=== PATIENT | female | born 1950 | race Caucasian/White ===

== ENCOUNTER 2016-09-25 20:57 | Observation (INO) | payer MEDICAID, MEDICARE, OTHER ==
[~2016-09-25] VITALS: Ht 162.6 cm; Wt 79.0 kg
[~2016-09-25 20:57] MED LIST: ACET-461 PO; ASP81CT PO; ASPI-875 PO; CA C1TAB26 PO; CALC-687 PO; CARV12.5 PO; CARV25TA PO; CARV6.252 PO; CEFP500T4 PO; CEFU500T5 PO; CEPH500C PO; CYCL10TA9 PO; DIGO125T PO; DIPH25TA82 PO; DOXY25TA43 PO; ENAL10TA PO; ENAL20TA PO; FLT05NA16 NS; FURO40TA4 PO; GLYB5TAB6 PO; INSU100I13 SQ; INSU100I14 SQ; ISM30TCR PO; LEVE1U SQ; LISI-556 PO; LORA10TA7 PO; MAGN400C PO; MEGA RED OMEGA PO; METF-380 PO; METO25TA PO; MTP25TSR PO; MULT-305 PO; MULT-974 PO; Mega Red PO; NAPR-243 PO; NITR0.3T6 SL; OMEG1CAP51 PO; ONDN4T PO; PRAV40TA PO; RANI75TA30 PO; SIMV40TA2 PO; SIMV40TA4 PO; TRAM-21 PO; TRH2T PO; TRIA16.5 NS; ZIPR60CA6; ZIPR60CA6 PO; ZLP10T PO; ZPR20C PO; ZPR40C PO; ZPR80C PO; [UNRECOGNIZED DRUG - OTHER] PO
--- NOTE | 2016-09-25 21:38 | ED Psychosocial ---
General Stated Complaint: MENTAL EVAL Source: patient, family Exam Limitations: no limitations History of Present Illness Time seen by provider: 21:35 Initial Comments Coming by her with requests for a "mental evaluation". Patient reportedly has good days and bad days and today would be a bad day. Patient has schizophrenia and was formerly on Geodon for many many years until stopping it by herself last year. She is psychiatrist Dr. Colon but currently does not have one. She initially presented to the emergency room pounding on the window stating that she had been to 2 other hospitals already today and they were trying to kill her and if we did not help her it would be our fault and that she started out of the waiting room. She went back to her husbands truck and he summoned the police were able to calm her down at least to the point that she could be encouraged to be evaluated in the emergency room. Upon presentation back here he reports to me that her only claims to be her but is not actually and he is trying to kill her. Timing/Duration: getting worse Associated Symptoms: anxiety, impaired concentration Allergies and Home Medications Allergies Coded Allergies: Bleach (Sodium Hypochlorite) (Verified Allergy, Unknown, 09/25/16) corn (Unverified Allergy, Unknown, 02/07/10) perfume (Verified Allergy, Unknown, 09/25/16) Home Medications Acetaminophen 500 Mg Tablet, 1,000 MG PO DAILY PRN for PAIN, (Reported) TAKES 2 OF 500MG TABLETS EVERY MORNING NEEDED FOR PAIN Aspirin 81 Mg Tablet.dr, 81 MG PO HS, (Reported) Ca Cmb No.1/Vit D3/B-6/Fa/B12 1 Each Tablet, 1,000 MG PO DAILY, (Reported) Calcium Carbonate/Mag Oxide/Zn 1 Each Tablet, 1 TAB PO DAILY, (Reported) Carvedilol 12.5 Mg Tablet, 12.5 MG PO BID, (Reported) Digoxin 125 Mcg Tablet, 125 MG PO DAILY, (Reported) Diphenhydramine Hcl 25 Mg Tablet, 25 MG PO HS PRN, (Reported) PRN ALLERGIES Enalapril Maleate 20 Mg Tablet, 20 MG PO HS, (Reported) Fluticasone Propionate 16 Gm [place], 1 SPRAY NS BID, (Reported) 1 SPRAY IN EACH NOSTRIL TWICE A DAY Insulin Aspart 100 Unit/1 Ml Insuln.pen, 15 UNIT SQ TID, (Reported) WITH MEALS Insulin Determir 100 U/Ml Insuln.pen, 25 UNITS SQ BID, (Reported) Magnesium Oxide 400 Mg Capsule, 400 MG PO DAILY, (Reported) Metformin Hcl 1,000 Mg Tablet, 1,000 MG PO BID WITH MEALS, (Reported) Multivitamin 1 Each Tablet, 1 TAB PO DAILY, (Reported) [place]-3 Fatty Acids/Fish Oil 1 Each Capsule, 1,000 MG PO TID, (Reported) Constitutional: see HPI EENTM: see HPI Respiratory: no symptoms reported Cardiovascular: no symptoms reported Genitourinary: no symptoms reported Musculoskeletal: no symptoms reported Skin: no symptoms reported Psychiatric/Neurological: See HPI Past Vfbkjuw-Ujumfk-Vcyiqo Hx Patient Social History Recent Foreign Travel: No Contact w/Someone Who Travel: No Immunizations Up To Date Tetanus Booster (TDap): More than 5yrs Date of Pneumonia Vaccine: Apr 09, 2010 Seasonal Allergies Seasonal Allergies: Yes Surgeries HX Surgeries: Yes (right carotid endarterectomy, colonoscopy) Surgeries: CABG, Hysterectomy, Pacemaker Respiratory Hx Respiratory Disorders: No Cardiovascular Hx Cardiac Disorders: Yes (has pacemaker/defibrillator, DOUBLE BYPASS) Cardiac Disorders: Coronary Artery Disease, Irregular Heartbeat Neurological Hx Neurological Disorders: Yes Neurological Disorders: Stroke Reproductive System Hx Reproductive Disorders: No FERRULER History: Hysterectomy Genitourinary Hx Genitourinary Disorders: No Gastrointestinal Hx Gastrointestinal Disorders: Yes Gastrointestinal Disorders: Gall Bladder Disease Musculoskeletal Hx Musculoskeletal Disorders: Yes Musculoskeletal Disorders: Arthritis Endocrine Hx Endocrine Disorders: No (states used to take insulin but not anymore) Endocrine Disorders: Diabetes, Insulin dep HEENT HX ENT Disorders: No Cancer Hx Cancer: No Psychosocial Hx Psychiatric Problems: Yes Behavioral Health Disorders: Schizophrenia, Depression Integumentary HX Skin/Integumentary Disorder: No Blood Transfusions Hx Blood Disorders: No Adverse Reaction to a Blood Tr: No Family Medical History Significant Family History: No Pertinent Family Hx Family Medial History: Family history: Diabetes mellitus 19 MOTHER Family history: Hypertension 19 FATHER 19 MOTHER Psychotic disorder G8 BROTHER (MENTAL HEALTH PROBLEMS) Physical Exam Vital Signs Vital Sign - Last 12Hours 09/25/16 21:20 Temp 96.4 Pulse 70 Resp 18 B/P (MAP) 177/81 Pulse Ox 97 Capillary Refill : General Appearance: WD/WN, no apparent distress, other (bizarre behavior in the emergency room, screaming at the customer service receptionist stating that she been to other hospitals recurrent killer and if we didn't save her would be our fault. She then stormed out of the waiting room. Her called the police who convinced her to be checked out. She is very angry with her for bringing her here and states that he is not her and he is in fact trying to kill her.) HEENT: PERRL/EOMI, normal ENT inspection Neck: non-tender, full range of motion Respiratory: no respiratory distress, no accessory muscle use Cardiovascular: no murmur Gastrointestinal: non tender, soft Extremities: normal range of motion, non-tender Neurologic/Psychiatric: alert, normal mood/affect, oriented x 3 Appearance/Memory: disheveled, impaired insight, impaired recent memory, impaired remote memory Behavior/Eye Contact: increased rate of speech, belligerent, compulsive, uncooperative Thoughts/Hallucinations: delusions, flight of ideas, paranoid Skin: normal color, warm/dry Progress/Results/Core Measures Results/Orders Lab Results Laboratory Tests Test 09/25/16 21:50 Range/Units White Blood Count 8.3 4.3-11.0 10^3/uL Red Blood Count 4.29 L 4.35-5.85 10^6/uL Hemoglobin 12.4 11.5-16.0 G/DL Hematocrit 37 35-52 % Mean Corpuscular Volume 86 80-99 FL Mean Corpuscular Hemoglobin 29 25-34 PG Mean Corpuscular Hemoglobin Concent 34 32-36 G/DL Red Cell Distribution Width 13.3 10.0-14.5 % Platelet Count 179 130-400 10^3/uL Mean Platelet Volume 9.6 7.4-10.4 FL Neutrophils (%) (Auto) 71 42-75 % Lymphocytes (%) (Auto) 19 12-44 % Monocytes (%) (Auto) 8 0-12 % Eosinophils (%) (Auto) 2 0-10 % Basophils (%) (Auto) 1 0-10 % Neutrophils # (Auto) 5.9 1.8-7.8 X 10^3 Lymphocytes # (Auto) 1.6 1.0-4.0 X 10^3 Monocytes # (Auto) 0.6 0.0-1.0 X 10^3 Eosinophils # (Auto) 0.2 0.0-0.3 10^3/uL Basophils # (Auto) 0.1 0.0-0.1 10^3/uL Urine Color YELLOW Urine Clarity CLEAR Urine pH 5 5-9 Urine Specific Wallace 1.015 L 1.016-1.022 Urine Protein 1+ H NEGATIVE Urine Glucose (UA) 1+ H NEGATIVE Urine Ketones NEGATIVE NEGATIVE Urine Nitrite NEGATIVE NEGATIVE Urine Bilirubin NEGATIVE NEGATIVE Urine Urobilinogen NORMAL NORMAL MG/DL Urine Leukocyte Esterase 3+ H NEGATIVE Urine RBC (Auto) NEGATIVE NEGATIVE Urine RBC NONE /HPF Urine WBC 50-100 H /HPF Urine Squamous Epithelial Cells 2-5 /HPF Urine Crystals NONE /LPF Urine Bacteria FEW H /HPF Urine Casts NONE /LPF Urine Mucus NEGATIVE /LPF Urine Culture Indicated YES Sodium Level 135 135-145 MMOL/L Potassium Level 4.6 3.6-5.0 MMOL/L Chloride Level 106 98-107 MMOL/L Carbon Dioxide Level 16 L 21-32 MMOL/L Anion Gap 13 5-14 MMOL/L Blood Urea Nitrogen 29 H 7-18 MG/DL Creatinine 1.23 0.60-1.30 MG/DL Estimat Glomerular Filtration Rate 44 BUN/Creatinine Ratio 24 Glucose Level 247 H 70-105 MG/DL Calcium Level 8.5 8.5-10.1 MG/DL Total Bilirubin 0.5 0.1-1.0 MG/DL Aspartate Amino Transf (AST/SGOT) 17 5-34 U/L Alanine Aminotransferase (ALT/SGPT) 25 0-55 U/L Alkaline Phosphatase 117 40-136 U/L Total Protein 7.3 6.4-8.2 GM/DL Albumin 3.9 3.2-4.5 GM/DL Urine Opiates Screen NEGATIVE NEGATIVE Urine Oxycodone Screen NEGATIVE NEGATIVE Urine Methadone Screen NEGATIVE NEGATIVE Urine Propoxyphene Screen NEGATIVE NEGATIVE Urine Barbiturates Screen NEGATIVE NEGATIVE Ur Tricyclic Antidepressants Screen NEGATIVE NEGATIVE Urine Phencyclidine Screen NEGATIVE NEGATIVE Urine Amphetamines Screen NEGATIVE NEGATIVE Urine Methamphetamines Screen NEGATIVE NEGATIVE Urine Benzodiazepines Screen NEGATIVE NEGATIVE Urine Cocaine Screen NEGATIVE NEGATIVE Urine Cannabinoids Screen NEGATIVE NEGATIVE My Orders Orders - FREDRICK TAYLOR APRN Cbc With Automated Diff (09/25/16 21:33) Comprehensive Metabolic Panel (09/25/16 21:33) Thyroid Stimulating Hormone (09/25/16 21:33) Ekg Tracing (09/25/16 21:33) Ua Culture If Indicated (09/25/16 21:33) Drug Screen Stat (Urine) (09/25/16 21:33) Ziprasidone Capsule (Geodon Capsule) (09/25/16 21:45) Chest 1 View, Ap/Pa Only (09/25/16 21:33) Ct Head Wo (09/25/16 21:33) Urine Culture (09/25/16 21:50) Vital Signs/I&O Vital Sign - Last 12Hours 09/25/16 21:20 Temp 96.4 Pulse 70 Resp 18 B/P (MAP) 177/81 Pulse Ox 97 Departure Communication Progress Notes 2211- patient's does not have particularly over her. However, she is agreeable to being admitted at [facility] behavioral health unit. Impression Impression: Primary Impression: Schizophrenia Additional Impression: Urinary tract infection Disposition: SHT-TRM HOSP Condition: Stable Departure-Patient Inst. Referrals: [facility] (PCP) Primary Care Physician WOOD CALDERON (Family) Primary Care Physician FREDRICK TAYLOR APRN Sep 25, 2016 21:38
[2016-09-25] MEDS ORDERED: ZIPRASIDONE 20 MG (GEODON) CAP PO ONE (21:45)
[2016-09-25 21:55] LABS: BASOPHILS # (AUTO) 0.1 10^3/uL (0.0-0.1); BASOPHILS % (AUTO) 1 % (0-10); EOSINOPHILS # (AUTO) 0.2 10^3/uL (0.0-0.3); EOSINOPHILS % (AUTO) 2 % (0-10); LYMPHOCYTES # (AUTO) 1.6 X 10^3 (1.0-4.0); LYMPHOCYTES % (AUTO) 19 % (12-44); MEAN CORPUSCULAR HEMOGLOBIN 29 PG (25-34); MEAN CORPUSCULAR HGB CONC 34 G/DL (32-36); MEAN CORPUSCULAR VOLUME 86 FL (80-99); MEAN PLATELET VOLUME 9.6 FL (7.4-10.4); MONOCYTES # (AUTO) 0.6 X 10^3 (0.0-1.0); MONOCYTES % (AUTO) 8 % (0-12); NEUTROPHILS # (AUTO) 5.9 X 10^3 (1.8-7.8); NEUTROPHILS % (AUTO) 71 % (42-75); PLATELET COUNT 179 10^3/uL (130-400); RED BLOOD COUNT 4.29 10^6/uL (4.35-5.85); RED CELL DISTRIBUTION WIDTH 13.3 % (10.0-14.5); WHITE BLOOD COUNT 8.3 10^3/uL (4.3-11.0)
[2016-09-25 21:58] LABS: BILIRUBIN,URINE NEGATIVE (NEGATIVE); KETONES,URINE NEGATIVE (NEGATIVE); LEUKOCYTE ESTERASE ,URINE 3+ (NEGATIVE); NITRITE,URINE NEGATIVE (NEGATIVE); PH,URINE 5 (5-9); PROTEIN,URINE 1+ (NEGATIVE); UROBILINOGEN,URINE NORMAL (NORMAL)
[2016-09-25 22:11] LABS: ALBUMIN 3.9 GM/DL (3.2-4.5); BILIRUBIN,TOTAL 0.5 MG/DL (0.1-1.0); CALCIUM 8.5 MG/DL (8.5-10.1); CREATININE SERUM 1.23 MG/DL (0.60-1.30); POTASSIUM 4.6 MMOL/L (3.6-5.0); TOTAL PROTEIN 7.3 GM/DL (6.4-8.2); WBC,URINE 50-100 /HPF
[2016-09-25] MEDS ORDERED: TRIM/SULFAMETH 160/800 (SEPTRA DS) TAB PO ONE (22:15)
[2016-09-25 22:31] LABS: THYROID STIMULATING HORMONE 1.83 UIU/ML (0.35-4.94)
[2016-09-26 01:53] VITALS: BP 178/81
[2016-09-26] MEDS ORDERED: ZIPRASIDONE 20 MG (GEODON) CAP PO PRN (04:00)
[2016-09-26] MEDS ORDERED: ZIPRASIDONE 20 MG INJ (GEODON) VIAL IM PRN (04:00)
[2016-09-26 05:40] VITALS: BP 174/69
--- NOTE | 2016-09-26 05:56 | Diagnostic Imaging Report ---
INDICATION: Altered mental status TECHNIQUE: Routine non contrast-enhanced axial images were obtained from the skull base to the vertex. COMPARISON: 09/05/2013 FINDINGS: The ventricles and cortical sulci are diffusely prominent, compatible with age-related volume loss. There are confluent areas of abnormal, low attenuation in the periventricular white matter. This is consistent with chronic small vessel ischemic changes. Old small lacunar infarct in the anterior right basal ganglia is again noted. . There is no midline shift or mass-effect. No acute intra-axial hemorrhage is seen. There are no abnormal areas of increased or decreased density to suggest acute hemorrhage or edema. No extra-axial masses or collections are present. The bony calvarium is intact. The visualized paranasal sinuses are unremarkable. The mastoid air cells are clear. IMPRESSION: 1. No acute intracranial abnormality. No CT evidence of mass, acute infarct or intracranial hemorrhage. 2. Chronic small vessel ischemic changes within the deep white matter and small old lacunar infarct of the anterior right basal ganglia. Dictated by: Dictated on workstation # [id number]
--- NOTE | 2016-09-26 07:24 | Diagnostic Imaging Report ---
Portable upright radiograph of the chest. INDICATION: Altered mental status. FINDINGS: There is a pacemaker with two cardiac leads seen. The pacemaker obscures parts of the left perihilar region. Otherwise the lungs appear clear. The heart size is normal. No effusion or pneumothorax. The mediastinum and josé luis appear unremarkable. Post CABG changes are seen. IMPRESSION: No acute process. Dictated by: Dictated on workstation # [id number]
[2016-09-26 08:00] VITALS: BP 180/90
[2016-09-26] MEDS ORDERED: CEFDINIR 300 MG (OMNICEF) CAP PO SCH (09:00)
[2016-09-26] MEDS ORDERED: CARV12.53 PO (09:29)
[2016-09-26] MEDS ORDERED: METF500T4 PO (09:29)
[2016-09-26] MEDS ORDERED: ZIPR80CA23 PO (09:29)
[2016-09-26] MEDS ORDERED: ENAL20TA PO (09:29)
[2016-09-26] MEDS ORDERED: DIGO125T PO (09:29)
--- NOTE | 2016-09-26 10:46 | Short Stay Summary ---
HPI Attending Physician Cindy Ortega MD PCP mehnaz,[facility] Date of Admission Sep 25, 2016 at 23:10 Home Medications Home Medications Reviewed patient Home Medication Reconciliation Form Allergies Coded Allergies: Bleach (Sodium Hypochlorite) (Verified Allergy, Unknown, 09/25/16) corn (Unverified Allergy, Unknown, 02/07/10) perfume (Verified Allergy, Unknown, 09/25/16) MCR-[id number]-Tlbzba Hx Patient Social History Alcohol Use: Denies Use Recreational Drug Use: No Smoking Status: Never a Smoker Recent Foreign Travel: No Contact w/other who traveled: No Recent Hopitalizations: No Recent Infectious Disease Expo: No Physical Abuse Screen: No Sexual Abuse: No Immunizations Up To Date Tetanus Booster (TDap): More than 5yrs Date of Pneumonia Vaccine: Apr 09, 2010 Family Medical History Significant Family History: No Pertinent Family Hx Family History: Family history: Diabetes mellitus 19 MOTHER Family history: Hypertension 19 FATHER 19 MOTHER Psychotic disorder G8 BROTHER (MENTAL HEALTH PROBLEMS) Physical Exam-([facility] Physical Exam Vital Signs VS - Last 72 Hours, by Label 09/25/16 09/26/16 09/26/16 09/26/16 21:20 01:38 01:53 01:53 Temp 96.4 96.4 97.1 Pulse 70 70 70 Resp 18 18 20 B/P (MAP) 177/81 178/81 Pulse Ox 97 97 97 O2 Delivery Room Air Room Air 09/26/16 09/26/16 09/26/16 05:40 07:28 08:00 Temp 97.8 96.6 Pulse 72 69 84 Resp 20 26 B/P (MAP) 174/69 180/90 Pulse Ox 98 95 O2 Delivery Room Air Room Air Capillary Refill : Less Than 3 Seconds Clinical Quality Measures DVT/VTE Risk/Contraindication: Risk Factor Score Per Nursin RFS Level Per Nursing on Admit: 4+=Very High CINDY ORTEGA MD Sep 26, 2016 10:46
[2016-09-26] MEDS ORDERED: CEFD300C3 PO (10:48)
--- NOTE | 2016-09-26 10:51 | Discharge Instructions ---
Discharge [facility] Discharge Medications New, Converted or Re-Newed RX: Other New Medications: Cefdinir (Cefdinir) 300 Mg Capsule 300 MG PO BID for 4 Days, #8 CAP Continued Medications: Aspirin (Edwards Aspirin) 81 Mg Tablet.dr 81 MG PO HS, TAB Carvedilol (Carvedilol) 12.5 Mg Tablet 12.5 MG PO BID, TAB Digoxin (Digoxin) 125 Mcg Tablet 125 MCG PO DAILY, TAB Enalapril Maleate (Enalapril Maleate) 20 Mg Tablet 20 MG PO DAILY, TAB Fluticasone Propionate (Flonase) 16 Gm [place] 1 SPRAY NS BID, EA LAST FILLED 2--17 Insulin Aspart (Novolog Pen) 100 Unit/1 Ml Insuln.pen 15 UNIT SQ TIDAC, EA LAST FILLED 06-30-17 Insulin Determir (Levemir Pen) 100 U/Ml Insuln.pen 18 UNITS SQ BID, EA LAST FILLED 02-20-16 Metformin HCl (Metformin HCl) 500 Mg Tablet 1000 MG PO BID, TAB TAKES 2 (500MG) TABLETS Ziprasidone HCl (Ziprasidone HCl) 80 Mg Capsule 80 MG PO DAILY, CAP LAST FILLED 05-27-16 #30 Patient Instructions Goal/Follow Up Appt: You will need to call [facility] when you are discharged from the hospital in [facility] Activity & Diet Discharge Diet: Cardiac Diet Activity as Tolerated: Yes Copy Copies To 1: Mary HUSSEIN HOLLY R MD Sep 26, 2016 10:51
[2016-09-26 11:15] VITALS: BP 180/90
== END 2016-09-26 11:15 | disposition designated cancer center or children's hospital (05) ==
LOC: EDUNIT# 20:57 → ER 20:58 → 4TH 23:10
PROVIDERS: ADMIT Family Medicine; ATTEND Family Medicine
DX: F20.9 Schizophrenia, unspecified (principal); E11.9 Type 2 diabetes mellitus without complications; Z79.82 Long term (current) use of aspirin; Z79.899 Other long term (current) drug therapy; Z79.4 Long term (current) use of insulin; Z95.1 Presence of aortocoronary bypass graft; Z95.0 Presence of cardiac pacemaker
CPT/HCPCS: 36415; 70450; 71010; 80053; 80306; 81000; 84443; 85025; 87077; 87088; 87186; 93005; G0378

== ENCOUNTER 2016-10-20 22:46 | Inpatient (IN) | payer MEDICARE, OTHER ==
[~2016-10-20] VITALS: Ht 162.6 cm; Wt 79.0 kg
[~2016-10-20 22:46] MED LIST changes: +CARV12.53 PO; +CEFD300C3 PO; +METF500T4 PO; +ZIPR80CA23 PO
[2016-10-20 23:41] LABS: BILIRUBIN,URINE NEGATIVE (NEGATIVE); KETONES,URINE NEGATIVE (NEGATIVE); LEUKOCYTE ESTERASE ,URINE 3+ (NEGATIVE); NITRITE,URINE NEGATIVE (NEGATIVE); PH,URINE 6.5 (5-9); PROTEIN,URINE NEGATIVE (NEGATIVE); UROBILINOGEN,URINE NORMAL (NORMAL)
[2016-10-20 23:43] LABS: BASOPHILS # (AUTO) 0.1 10^3/uL (0.0-0.1); BASOPHILS % (AUTO) 1 % (0-10); EOSINOPHILS # (AUTO) 0.2 10^3/uL (0.0-0.3); EOSINOPHILS % (AUTO) 2 % (0-10); LYMPHOCYTES # (AUTO) 1.4 X 10^3 (1.0-4.0); LYMPHOCYTES % (AUTO) 14 % (12-44); MEAN CORPUSCULAR HEMOGLOBIN 30 PG (25-34); MEAN CORPUSCULAR HGB CONC 35 G/DL (32-36); MEAN CORPUSCULAR VOLUME 84 FL (80-99); MEAN PLATELET VOLUME 8.7 FL (7.4-10.4); MONOCYTES # (AUTO) 0.6 X 10^3 (0.0-1.0); MONOCYTES % (AUTO) 6 % (0-12); NEUTROPHILS # (AUTO) 7.6 X 10^3 (1.8-7.8); NEUTROPHILS % (AUTO) 77 % (42-75); PLATELET COUNT 192 10^3/uL (130-400); RED BLOOD COUNT 4.03 10^6/uL (4.35-5.85); RED CELL DISTRIBUTION WIDTH 13.2 % (10.0-14.5); WHITE BLOOD COUNT 9.8 10^3/uL (4.3-11.0)
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
[2016-10-21 00:02] LABS: ALANINE AMINOTRANSFERASE 36 U/L (0-55); ALBUMIN 3.9 GM/DL (3.2-4.5); ALCOHOL < 10 MG/DL (<10); ANION GAP 11 MMOL/L (5-14); ASPARTATE AMINO TRANSFERASE 34 U/L (5-34); BILIRUBIN,TOTAL 0.3 MG/DL (0.1-1.0); BLOOD UREA NITROGEN 25 MG/DL (7-18); BUN/CREATININE RATIO 18; CALCIUM 9.4 MG/DL (8.5-10.1); CARBON DIOXIDE 21 MMOL/L (21-32); CHLORIDE 97 MMOL/L (98-107); CREATININE SERUM 1.39 MG/DL (0.60-1.30); GFR ESTIMATED 38; GLUCOSE 240 MG/DL (70-105); MAGNESIUM 1.7 MG/DL (1.8-2.4); POTASSIUM 4.7 MMOL/L (3.6-5.0); SALICYLATE < 5.0 MG/DL (5.0-20.0); SODIUM 129 MMOL/L (135-145); TOTAL PROTEIN 7.2 GM/DL (6.4-8.2)
[2016-10-21 00:08] LABS: ACETAMINOPHEN < 10 UG/ML (10-30)
[2016-10-21 00:08] LABS: WBC,URINE 25-50 /HPF
[2016-10-21] MEDS ORDERED: MAGNESIUM OXIDE (MAG-OX)400 MG TAB PO ONE (00:30)
[2016-10-21] MEDS ORDERED: cefTRIAXone INJECTION 1,000 MG in NS (IVPB) 50 ML IV ONE (00:30)
[2016-10-21] MEDS ORDERED: ACETAMINOPHEN 500 MG TAB (TYLENOL) PO PRN ×2 (02:45→11:00)
[2016-10-21] MEDS ORDERED: PROMETHAZINE INJ 25 MG/ML (PHENERGAN) AMP IM PRN (02:45)
[2016-10-21 04:00] VITALS: BP 159/83
[2016-10-21 06:09] LABS: BASOPHILS % (AUTO) 0 % (0-10); EOSINOPHILS # (AUTO) 0.1 10^3/uL (0.0-0.3); EOSINOPHILS % (AUTO) 1 % (0-10); LYMPHOCYTES # (AUTO) 1.4 X 10^3 (1.0-4.0); LYMPHOCYTES % (AUTO) 15 % (12-44); MEAN CORPUSCULAR HEMOGLOBIN 30 PG (25-34); MEAN CORPUSCULAR HGB CONC 35 G/DL (32-36); MEAN CORPUSCULAR VOLUME 85 FL (80-99); MONOCYTES # (AUTO) 0.6 X 10^3 (0.0-1.0); MONOCYTES % (AUTO) 7 % (0-12); NEUTROPHILS # (AUTO) 7.1 X 10^3 (1.8-7.8); NEUTROPHILS % (AUTO) 77 % (42-75); PLATELET COUNT 201 10^3/uL (130-400); RED BLOOD COUNT 4.16 10^6/uL (4.35-5.85); RED CELL DISTRIBUTION WIDTH 13.4 % (10.0-14.5); WHITE BLOOD COUNT 9.2 10^3/uL (4.3-11.0)
[2016-10-21 06:24] LABS: BILIRUBIN,TOTAL 0.3 MG/DL (0.1-1.0); CALCIUM 9.5 MG/DL (8.5-10.1); CREATININE SERUM 1.13 MG/DL (0.60-1.30); POTASSIUM 4.5 MMOL/L (3.6-5.0); TOTAL PROTEIN 7.3 GM/DL (6.4-8.2)
--- NOTE | 2016-10-21 07:55 | Diagnostic Imaging Report ---
PROCEDURE: CT head without contrast. TECHNIQUE: Multiple contiguous axial images were obtained through the brain without the use of intravenous contrast. INDICATION: Altered mental status. Correlation study 09/25/2016. FINDINGS: Ventricles and sulci are age appropriate. Scattered areas of decreased attenuation are present, nonspecific favoring likely chronic small-vessel ischemic disease. No midline shift or mass effect. No intracranial hemorrhage. Bony calvarium is intact with the visualized paranasal sinuses and mastoid air cells clear. IMPRESSION: 1. Negative for acute intracranial abnormality. 2. Changes of likely chronic small-vessel ischemic disease. Subtle areas of edema would be difficult to exclude based on chronic findings. Dictated by: Dictated on workstation # [id number]
--- NOTE | 2016-10-21 08:03 | Diagnostic Imaging Report ---
INDICATION: Altered mental status. TECHNIQUE: Single view chest 12:00 a.m. CORRELATION STUDY: 09/25/2016. FINDINGS: Patient has poststernotomy. Left-sided pacemaker is unchanged. Heart size and mediastinum is relatively stable. Vasculature appears to be within normal limits. Minimal atelectasis suggested about the left lung base and left perihilar region. No definitive infiltrate. IMPRESSION: 1. Minimal left basilar and perihilar atelectasis. Poststernotomy changes. Dictated by: Dictated on workstation # [id number]
[2016-10-21 08:05] VITALS: BP 180/83
--- NOTE | 2016-10-21 08:29 | Consultation-Cardiology ---
HPI-Cardiology Cardiology Consultation: Date of Consultation 10/21/16 Time Seen by Provider: 09:00 Date of Admission 10-20-16 Attending Physician Cindy Thompson MD Admitting Physician Matteo,[facility] Consulting Physician Shaquille Jo MD HPI: Chief Complaint: Hypertension Ms. Rodríguez is a 65 year old female who has been admitted to [facility] from the ED. Review of the ED notes has been carried out. She reports she has not been feeling well, but is unable to described what she means by not well. She states she was recently released from [facility]. 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 She states she was kidnapped when she was [age] and has been placed in another body. She states she has a ridge on the back of her head (rubs the back of her head) and knows she is not in her body, but does not know how to get out of this body". She states she is disgusted and no one will believe her. No c/o CP, dyspnea or palpitations. There is not family at the bedside. Review of Systems-Cardiology Review of Systems Constitutional: As described under HPI, No As described under HPI, No no symptoms reported, No chills, No fever, No lightheadedness Eyes: No As described under HPI, No no symptoms reported, No blindness, No blurred vision, No contact lenses, No drainage, No decreased acuity, No foreign body sensation, No pain, No vision change Ears/Nose/Throat: No As described under HPI, No no symptoms reported, No chronic hearing loss, No ear discharge, No ear pain, No nasal drainage, No ulcerations Respiratory: No no symptoms reported, As described under HPI, No As described under HPI, No cough, No orthopnea, No shortness of breath, No SOB with excertion Cardiovascular: No no symptoms reported, As described under HPI, No As described under HPI, No chest pain, No edema, No irregular heart rate, No lightheadedness, No palpitations Gastrointestinal: No no symptoms reported, No As described under HPI, No abdomen distended, No abdominal pain, No blood streaked bowels, No constipation , No diarrhea, No nausea, No vomiting, No stool coloration changes Genitourinary: No As described under HPI, No burning, No dysuria, No discharge , No frequency, No flank pain, No hematuria, No urgency Skin: No rash, No skin related problems, No ulcerations Psychiatric/Neurological: As described under HPI Hematologic: No bleeding abnormalities QBL-Rpvcie-Kucrhs Hx Patient Social History Alcohol Use: Denies Use Recreational Drug Use: No Smoking Status: Never a Smoker 2nd Hand Smoke Exposure: No Recent Foreign Travel: No Recent Infectious Disease Expo: No Hospitalization with Isolation: Denies Physical Abuse Screen: Yes () Sexual Abuse: No Immunizations Up To Date Tetanus Booster (TDap): Unknown Date of Pneumonia Vaccine: Apr 09, 2010 Past Medical History PMH As described under Assessment. Family Medical History Family History: 19 FATHER Family history: Hypertension 19 MOTHER Family history: Diabetes mellitus Family history: Hypertension G8 BROTHER Psychotic disorder (MENTAL HEALTH PROBLEMS) Allergies and Home Medications Allergies Coded Allergies: Bleach (Sodium Hypochlorite) (Verified Allergy, Unknown, 09/25/16) corn (Unverified Allergy, Unknown, 02/07/10) perfume (Verified Allergy, Unknown, 09/25/16) Home Medications Aspirin 81 Mg Tablet.dr, 81 MG PO HS, (Reported) Carvedilol 12.5 Mg Tablet, 12.5 MG PO BID, (Reported) Cefdinir 300 Mg Capsule, 300 MG PO BID for 4 Days, #8 Prescribed by: CINDY THOMPSON on 09/26/16 1048 Digoxin 125 Mcg Tablet, 125 MCG PO DAILY, (Reported) Enalapril Maleate 20 Mg Tablet, 20 MG PO DAILY, (Reported) Fluticasone Propionate 16 Gm [place], 1 SPRAY NS BID, (Reported) LAST FILLED 2-3-17 Insulin Aspart 100 Unit/1 Ml Insuln.pen, 15 UNIT SQ TIDAC, (Reported) LAST FILLED -- Insulin Determir 100 U/Ml Insuln.pen, 18 UNITS SQ BID, (Reported) LAST FILLED -- Metformin HCl 500 Mg Tablet, 1,000 MG PO BID, (Reported) TAKES 2 (500MG) TABLETS Ziprasidone HCl 80 Mg Capsule, 80 MG PO DAILY, (Reported) LAST FILLED 05-27-16 #30 Physical Exam-Cardiology Physical Exam Vital Signs/I&O Vital Sign - Last 12Hours 10/20/16 10/21/16 10/21/16 8/15/17 22:47 02:14 02:55 04:00 Temp 97.1 98.1 Pulse 118 118 88 Resp 20 20 B/P (MAP) 146/91 159/83 Pulse Ox 100 100 O2 Delivery Room Air Room Air 10/21/16 08:05 Temp 97.5 Pulse 70 Resp 20 B/P (MAP) 180/83 Pulse Ox 100 O2 Delivery Room Air Capillary Refill : Less Than 3 Seconds Constitutional: appears stated age, No apparent distress, well-developed, well- nourished HEENT: PERRL, No discharge, hearing is well preserved, oral hygience is good, No ulceration, No xanthelasmas are seen Neck: No carotid bruit, carotid pulses are 2 + bilaterally Respiratory: No accessory muscle use, No respiratory distress, chest expansion is symmetric, chest is bilaterally symmetric, lungs clear to auscultation Cardiovascular: regular rate-rhythm, No JVD, S1 and S2 Gastrointestinal: No tender, soft, round, audible bowel sounds, No spleenomegaly Rectal: deferred Extremities: No clubbing, No cyanosis, No significant edema Neurologic/Psychiatric: alert, oriented x 3 (Oriented x3; please refer to HPI, unable to re-direct), power is 5/5 both on sides Skin: No rash, No ulcerations Lymphatic: no adenopathy Data Review Labs Laboratory Tests 10/20/16 22:49: Urine Color YELLOW, Urine Clarity CLEAR, Urine pH 6.5, Urine Specific [place] 1.010L, Urine Protein NEGATIVE, Urine Glucose (UA) 2+H, Urine Ketones NEGATIVE, Urine Nitrite NEGATIVE, Urine Bilirubin NEGATIVE, Urine Urobilinogen NORMAL, Urine Leukocyte Esterase 3+H, Urine RBC (Auto) NEGATIVE, Urine RBC NONE, Urine WBC 25-50H, Urine Squamous Epithelial Cells 2-5, Urine Crystals NONE, Urine Bacteria FEWH, Urine Casts NONE, Urine Mucus NEGATIVE, Urine Culture Indicated YES, Urine Opiates Screen NEGATIVE, Urine Oxycodone Screen NEGATIVE, Urine Methadone Screen NEGATIVE, Urine Propoxyphene Screen NEGATIVE, Urine Barbiturates Screen NEGATIVE, Ur Tricyclic Antidepressants Screen NEGATIVE, Urine Phencyclidine Screen NEGATIVE, Urine Amphetamines Screen NEGATIVE, Urine Methamphetamines Screen NEGATIVE, Urine Benzodiazepines Screen NEGATIVE, Urine Cocaine Screen NEGATIVE, Urine Cannabinoids Screen NEGATIVE 10/20/16 23:37: White Blood Count 9.8, Red Blood Count 4.03L, Hemoglobin 12.0, Hematocrit 34L, Mean Corpuscular Volume 84, Mean Corpuscular Hemoglobin 30, Mean Corpuscular Hemoglobin Concent 35, Red Cell Distribution Width 13.2, Platelet Count 192, Mean Platelet Volume 8.7, Neutrophils (%) (Auto) 77H, Lymphocytes (%) (Auto) 14 , Monocytes (%) (Auto) 6, Eosinophils (%) (Auto) 2, Basophils (%) (Auto) 1, Neutrophils # (Auto) 7.6, Lymphocytes # (Auto) 1.4, Monocytes # (Auto) 0.6, Eosinophils # (Auto) 0.2, Basophils # (Auto) 0.1, Sodium Level 129L, Potassium Level 4.7, Chloride Level 97L, Carbon Dioxide Level 21, Anion Gap 11, Blood Urea Nitrogen 25H, Creatinine 1.39H, Estimat Glomerular Filtration Rate 38, BUN/ Creatinine Ratio 18, Glucose Level 240H, Calcium Level 9.4, Magnesium Level 1.7L , Total Bilirubin 0.3, Aspartate Amino Transf (AST/SGOT) 34, Alanine Aminotransferase (ALT/SGPT) 36, Alkaline Phosphatase 144H, Total Protein 7.2, Albumin 3.9, Salicylates Level < 5.0L, Acetaminophen Level < 10L, Serum Alcohol < 10 10/21/16 05:05: White Blood Count 9.2, Red Blood Count 4.16L, Hemoglobin 12.4, Hematocrit 35, Mean Corpuscular Volume 85, Mean Corpuscular Hemoglobin 30, Mean Corpuscular Hemoglobin Concent 35, Red Cell Distribution Width 13.4, Platelet Count 201, Mean Platelet Volume 9.0, Neutrophils (%) (Auto) 77H, Lymphocytes (%) (Auto) 15 , Monocytes (%) (Auto) 7, Eosinophils (%) (Auto) 1, Basophils (%) (Auto) 0, Neutrophils # (Auto) 7.1, Lymphocytes # (Auto) 1.4, Monocytes # (Auto) 0.6, Eosinophils # (Auto) 0.1, Basophils # (Auto) 0.0, Sodium Level 133L, Potassium Level 4.5, Chloride Level 99, Carbon Dioxide Level 23, Anion Gap 11, Blood Urea Nitrogen 24H, Creatinine 1.13, Estimat Glomerular Filtration Rate 48, BUN/ Creatinine Ratio 21, Glucose Level 173H, Calcium Level 9.5, Total Bilirubin 0.3 , Aspartate Amino Transf (AST/SGOT) 29, Alanine Aminotransferase (ALT/SGPT) 35, Alkaline Phosphatase 124, Total Protein 7.3, Albumin 4.0 Radiology NAME: REY RODRÍGUEZ [facility] REC#: [id number] PT STATUS: ADM IN : 1950 PHYSICIAN: STEVEN VILLELA MD ADMIT DATE: 10/21/16 Draft Date of Exam:10/20/16 CT HEAD WO PROCEDURE: CT head without contrast. TECHNIQUE: Multiple contiguous axial images were obtained through the brain without the use of intravenous contrast. INDICATION: Altered mental status. Correlation study 09/25/2016. FINDINGS: Ventricles and sulci are age appropriate. Scattered areas of decreased attenuation are present, nonspecific favoring likely chronic small-vessel ischemic disease. No midline shift or mass effect. No intracranial hemorrhage. Bony calvarium is intact with the visualized paranasal sinuses and mastoid air cells clear. IMPRESSION: 1. Negative for acute intracranial abnormality. 2. Changes of likely chronic small-vessel ischemic disease. Subtle areas of edema would be difficult to exclude based on chronic findings. Dictated on workstation # [id number] Dict: 10/21/16 0752 Trans: 10/21/16 0754 [id number] Interpreted by: SHARMILA NATARAJAN DO Electronically signed by: NAME: REY RODRÍGUEZ [facility] REC#: [id number] PT STATUS: ADM IN : 1950 PHYSICIAN: STEVEN VILLELA MD ADMIT DATE: 10/21/16 Draft Date of Exam:10/20/16 CHEST 1 VIEW, AP/PA ONLY INDICATION: Altered mental status. TECHNIQUE: Single view chest 12:00 a.m. CORRELATION STUDY: 09/25/2016. FINDINGS: Patient has poststernotomy. Left-sided pacemaker is unchanged. Heart size and mediastinum is relatively stable. Vasculature appears to be within normal limits. Minimal atelectasis suggested about the left lung base and left perihilar region. No definitive infiltrate. IMPRESSION: 1. Minimal left basilar and perihilar atelectasis. Poststernotomy changes. Dictated on workstation # [id number] Dict: 10/21/16 0757 Trans: 10/21/16 0802 [facility] [id number] Interpreted by: SHARMILA NATARAJAN DO Electronically signed by: ECG Impression ECG Comment Ventricular pacing A/P-Cardiology Assessment/Admission Diagnosis UTI - medical services managing Hyponatremia - improving Schizophrenia (recent in-pt tx at [facility]) - acute psychosis Syncope in August 2013 that was due to postural hypotension due to dehydration. No recurrence since DM II H/o CKD, stage 2-3 Hypertension H/o ischemic cardiomyopathy echo of August 2013 is reported to have shown LVEF 55- 60% and triv MR & TR & AI, and PASP of 40-45 mmHg Pacemaker/defib implantation in Apr 2010, functioning normally on interrogation carried out on 08/20/16 Carotid u/s of June 2015: Mild atherosclerotic plaque at the carotid bifurcation bilaterally with no significant stenosis (estimated underlying stenosis in the range between 0-40% bilaterally); She has a h/o R CEA in the by Dr Rosales CAD with a h/o CABG in 2004. Last cath was on 04/30/[address] Briones. It showed patent GARCIA to LAD and patent vein graft to OM and 40-50% stenosis in RCA Abnormal ECG. ECG on 08/20/16 shows paced atrial rhythm, [place] vent rhythm with diffuse repol abnormality (unchanged from previous ECG) Chronically abnormal ECG Carotid arterial disease with h/o R CEA by Dr Rosales in the , according to the patient. Intermittent non-compliance with medical instructions HLP - LDL on lab of June 2014 was 185 - not on statin therapy Hyperthryoidism per lab of June 2014 - followed by her PCP H/o emilie in the . She has had some speech impairment since then. Has recovered from R-sided weakness Bilateral leg discomfort, suggestive of claudication Discussion and Recomendations Uncontrolled hypertension, for which we will resume her home medications. UTI which is being managed per medical services. Hyponatremia which is gradually improving. Schizophrenia with acute psychosis which is being managed by medical services. Monitor lab closely. Further recommendations will be based on her hospital course. We would like to thank Dr. Thompson for this consult. This consult is being scribed by Anne Cerrato APRN on behalf of Dr. Jo after discussion regarding plan of care. Clinical Quality Measures DVT/VTE Risk/Contraindication: Risk Factor Score Per Nursin RFS Level Per Nursing on Admit: 4+=Very High BARRY CERRATO Oct 21, 2016 08:29
[2016-10-21] MEDS ORDERED: LURA20TA PO (09:42)
[2016-10-21] MEDS ORDERED: LURA40TA3 PO (09:42)
[2016-10-21] MEDS ORDERED: LOPE2TAB64 PO (09:42)
[2016-10-21] MEDS ORDERED: ACET-93 PO (09:42)
[2016-10-21] MEDS ORDERED: CRAN1CAP5 PO (09:42)
[2016-10-21] MEDS ORDERED: ACET-575 PO (09:42)
[2016-10-21] MEDS ORDERED: CATHETER FLUSH 10 ML SYR IV PRN (11:15)
[2016-10-21 12:00] VITALS: BP 176/92
[2016-10-21] MEDS ORDERED: ENALAPRIL 10 MG (VASOTEC) TAB PO NR (13:00)
[2016-10-21] MEDS ORDERED: CATHETER FLUSH 10 ML SYR IV SCH (14:00)
[2016-10-21] MEDS ORDERED: CIPR500T4 PO (14:26)
--- NOTE | 2016-10-21 14:29 | Discharge Instructions ---
Discharge [facility] Discharge Medications New, Converted or Re-Newed RX: Transmitted to Pharmacy New Medications: Ciprofloxacin HCl (Ciprofloxacin HCl) 500 Mg Tablet 500 MG PO BID for 7 Days, #7 TAB Continued Medications: Acetaminophen (Acetaminophen) 500 Mg Tablet 1000 MG PO Q6H PRN for PAIN-MILD, TAB TAKES 2 (500 MG) TABLETS Aspirin ([place] Aspirin) 81 Mg Tablet.dr 81 MG PO HS, TAB Carvedilol (Carvedilol) 12.5 Mg Tablet 12.5 MG PO BID, TAB LAST FILLED 09/04/16 #60 Digoxin (Digoxin) 125 Mcg Tablet 125 MCG PO DAILY, TAB LAST FILLED 09/04/16 #30 Enalapril Maleate (Enalapril Maleate) 20 Mg Tablet 20 MG PO DAILY, TAB LAST FILLED 09/04/16 #30 Insulin Aspart (Novolog Pen) 100 Unit/1 Ml Insuln.pen 5 UNIT SQ TIDAC, EA LAST FILLED 06/30/16 #30 ML Loperamide HCl (Anti-Diarrhea) 2 Mg Tablet 4 MG PO PRN PRN for DIARRHEA, TAB TAKES 2 (2 MG) TABLETS Lurasidone HCl (Latuda) 20 Mg Tablet 20 MG PO DAILY, TAB TAKES IN CONJUNCTION WITH LATUDA 40 MG FOR A TOTAL DOSE OF 60 MG DAILY Lurasidone HCl (Latuda) 40 Mg Tablet 40 MG PO DAILY, TAB TAKES IN CONJUNCTION WITH LATUDA 20 MG FOR A TOTAL DOSE OF 60 MG DAILY Discontinued Medications: Acetaminophen/Diphenhydramine (Acetaminophen Pm Cap[place]) 1 Each Tablet 1-2 TAB PO HS PRN for SLEEP, TAB Cranberry Extract/Vit C (Azo Cranberry Softgel) 1 Each Capsule 1 CAP PO DAILY, CAP Patient Instructions Goal/Follow Up Appt: Follow up with Mary Goins your PCP at [facility] on Oct 27 @ 1:20 PM Patient Instructions: Make sure you complete all your antibioitics Make sure you go to your psych appt tomorrow AM Activity & Diet Discharge Diet: ADA Diet Activity as Tolerated: Yes Copy Copies To 1: [facility] CINDY Shields MD Oct 21, 2016 14:29
--- NOTE | 2016-10-21 14:30 | Short Stay Summary ---
HPI History of Present Illness: 65 yo F that was admitted for confusion and found to have a UTI. Patient states that she started having confusion and paranoia. Patient was recently admitted to inpatient psych for her Schizophrenia and stated on Latuda. This is a new medication for the patient and she just started it last week. States that for the last 2 weeks she has been having increased urination. Denies any burning or pain with urination. Denies any back or chest pain. No N/V Source: patient, RN/MD, old records Exam Limitations: no limitations Date seen by provider: Oct 21, 2016 Time Seen by Provider: 10:10 Attending Physician Katie Ortega MD PCP mehnaz,[facility] Consult Date of Admission Oct 21, 2016 at 00:45 Home Medications Home Medications Reviewed patient Home Medication Reconciliation Form Allergies Coded Allergies: Bleach (Sodium Hypochlorite) (Verified Allergy, Unknown, 09/25/16) corn (Unverified Allergy, Unknown, 02/07/10) perfume (Verified Allergy, Unknown, 09/25/16) JCT-Nhdfhb-Amzgyj Hx Patient Social History Living Status: Lives with Alcohol Use: Denies Use Recreational Drug Use: No Smoking Status: Never a Smoker 2nd Hand Smoke Exposure: No Recent Foreign Travel: No Contact w/other who traveled: No Recent Hopitalizations: No Recent Infectious Disease Expo: No Physical Abuse Screen: Yes () Sexual Abuse: No Immunizations Up To Date Tetanus Booster (TDap): Unknown Date of Pneumonia Vaccine: Apr 09, 2010 Past Medical History Schizophrenia HTN Insulin Dependent DM Family Medical History Significant Family History: No Pertinent Family Hx Family History: Family history: Diabetes mellitus 19 MOTHER Family history: Hypertension 19 FATHER 19 MOTHER Psychotic disorder G8 BROTHER (MENTAL HEALTH PROBLEMS) Review of Systems ([facility]) Constitutional: no symptoms reported, No chills, No dizziness, No malaise, No weakness EENTM: no symptoms reported Respiratory: no symptoms reported, No cough, No dyspnea on exertion, No hemoptysis, No short of breath Cardiovascular: no symptoms reported, No chest pain, No edema, No palpitations Gastrointestinal: no symptoms reported, No abdominal pain, No constipation, No diarrhea, No nausea, No vomiting Genitourinary: No dysuria, frequency, No hematuria, incontinence Musculoskeletal: no symptoms reported, No back pain, No joint pain, No muscle pain Skin: no symptoms reported, No lesions, No rash Psychiatric/Neurological: Anxiety Reviewed Test Results Reviewed Test Results Lab Laboratory Tests Test 10/20/16 22:49 10/20/16 23:37 10/21/16 05:05 Range/Units Urine Color YELLOW Urine Clarity CLEAR Urine pH 6.5 5-9 Urine Specific [place] 1.010 L 1.016-1.022 Urine Protein NEGATIVE NEGATIVE Urine Glucose (UA) 2+ H NEGATIVE Urine Ketones NEGATIVE NEGATIVE Urine Nitrite NEGATIVE NEGATIVE Urine Bilirubin NEGATIVE NEGATIVE Urine Urobilinogen NORMAL NORMAL MG/DL Urine Leukocyte Esterase 3+ H NEGATIVE Urine RBC (Auto) NEGATIVE NEGATIVE Urine RBC NONE /HPF Urine WBC 25-50 H /HPF Urine Squamous Epithelial Cells 2-5 /HPF Urine Crystals NONE /LPF Urine Bacteria FEW H /HPF Urine Casts NONE /LPF Urine Mucus NEGATIVE /LPF Urine Culture Indicated YES Urine Opiates Screen NEGATIVE NEGATIVE Urine Oxycodone Screen NEGATIVE NEGATIVE Urine Methadone Screen NEGATIVE NEGATIVE Urine Propoxyphene Screen NEGATIVE NEGATIVE Urine Barbiturates Screen NEGATIVE NEGATIVE Ur Tricyclic Antidepressants Screen NEGATIVE NEGATIVE Urine Phencyclidine Screen NEGATIVE NEGATIVE Urine Amphetamines Screen NEGATIVE NEGATIVE Urine Methamphetamines Screen NEGATIVE NEGATIVE Urine Benzodiazepines Screen NEGATIVE NEGATIVE Urine Cocaine Screen NEGATIVE NEGATIVE Urine Cannabinoids Screen NEGATIVE NEGATIVE White Blood Count 9.8 9.2 4.3-11.0 10^3/uL Red Blood Count 4.03 L 4.16 L 4.35-5.85 10^6/uL Hemoglobin 12.0 12.4 11.5-16.0 G/DL Hematocrit 34 L 35 35-52 % Mean Corpuscular Volume 84 85 80-99 FL Mean Corpuscular Hemoglobin 30 30 25-34 PG Mean Corpuscular Hemoglobin Concent 35 35 32-36 G/DL Red Cell Distribution Width 13.2 13.4 10.0-14.5 % Platelet Count 192 201 130-400 10^3/uL Mean Platelet Volume 8.7 9.0 7.4-10.4 FL Neutrophils (%) (Auto) 77 H 77 H 42-75 % Lymphocytes (%) (Auto) 14 15 12-44 % Monocytes (%) (Auto) 6 7 0-12 % Eosinophils (%) (Auto) 2 1 0-10 % Basophils (%) (Auto) 1 0 0-10 % Neutrophils # (Auto) 7.6 7.1 1.8-7.8 X 10^3 Lymphocytes # (Auto) 1.4 1.4 1.0-4.0 X 10^3 Monocytes # (Auto) 0.6 0.6 0.0-1.0 X 10^3 Eosinophils # (Auto) 0.2 0.1 0.0-0.3 10^3/uL Basophils # (Auto) 0.1 0.0 0.0-0.1 10^3/uL Sodium Level 129 L 133 L 135-145 MMOL/L Potassium Level 4.7 4.5 3.6-5.0 MMOL/L Chloride Level 97 L 99 98-107 MMOL/L Carbon Dioxide Level 21 23 21-32 MMOL/L Anion Gap 11 11 5-14 MMOL/L Blood Urea Nitrogen 25 H 24 H 7-18 MG/DL Creatinine 1.39 H 1.13 0.60-1.30 MG/DL Estimat Glomerular Filtration Rate 38 48 BUN/Creatinine Ratio 18 21 Glucose Level 240 H 173 H 70-105 MG/DL Calcium Level 9.4 9.5 8.5-10.1 MG/DL Magnesium Level 1.7 L 1.8-2.4 MG/DL Total Bilirubin 0.3 0.3 0.1-1.0 MG/DL Aspartate Amino Transf (AST/SGOT) 34 29 5-34 U/L Alanine Aminotransferase (ALT/SGPT) 36 35 0-55 U/L Alkaline Phosphatase 144 H 124 40-136 U/L Total Protein 7.2 7.3 6.4-8.2 GM/DL Albumin 3.9 4.0 3.2-4.5 GM/DL Salicylates Level < 5.0 L 5.0-20.0 MG/DL Acetaminophen Level < 10 L 10-30 UG/ML Serum Alcohol < 10 <10 MG/DL Digoxin Level 0.65 L 0.80-2.00 NG/ML Radiology NAME: REY HEARN [facility] REC#: [id number] PT STATUS: ADM IN : 1950 PHYSICIAN: STEVEN VILLELA MD ADMIT DATE: 10/21/16 Draft Date of Exam:10/20/16 CT HEAD WO PROCEDURE: CT head without contrast. TECHNIQUE: Multiple contiguous axial images were obtained through the brain without the use of intravenous contrast. INDICATION: Altered mental status. Correlation study 09/25/2016. FINDINGS: Ventricles and sulci are age appropriate. Scattered areas of decreased attenuation are present, nonspecific favoring likely chronic small-vessel ischemic disease. No midline shift or mass effect. No intracranial hemorrhage. Bony calvarium is intact with the visualized paranasal sinuses and mastoid air cells clear. IMPRESSION: 1. Negative for acute intracranial abnormality. 2. Changes of likely chronic small-vessel ischemic disease. Subtle areas of edema would be difficult to exclude based on chronic findings. Dictated on workstation # [id number] Dict: 10/21/16 0752 Trans: 10/21/16 0754 [id number] Interpreted by: SHARMILA NATARAJAN DO Electronically signed by: NAME: REY HEARN [facility] REC#: [id number] PT STATUS: ADM IN : 1950 PHYSICIAN: STEVEN VILLELA MD ADMIT DATE: 10/21/16 Draft Date of Exam:10/20/16 CHEST 1 VIEW, AP/PA ONLY INDICATION: Altered mental status. TECHNIQUE: Single view chest 12:00 a.m. CORRELATION STUDY: 09/25/2016. FINDINGS: Patient has poststernotomy. Left-sided pacemaker is unchanged. Heart size and mediastinum is relatively stable. Vasculature appears to be within normal limits. Minimal atelectasis suggested about the left lung base and left perihilar region. No definitive infiltrate. IMPRESSION: 1. Minimal left basilar and perihilar atelectasis. Poststernotomy changes. Dictated on workstation # [id number] Dict: 10/21/16 0757 Trans: 10/21/16 0802 [facility] [id number] Interpreted by: SHARMILA NATARAJAN DO Electronically signed by: Physical Exam-([facility]) Physical Exam Vital Signs VS - Last 72 Hours, by Label 10/20/16 10/21/16 10/21/16 10/21/16 22:47 02:14 02:55 04:00 Temp 97.1 98.1 Pulse 118 118 88 Resp 20 20 B/P (MAP) 146/91 159/83 Pulse Ox 100 100 O2 Delivery Room Air Room Air 10/21/16 10/21/16 10/21/16 07:53 08:05 12:00 Temp 97.5 97.8 Pulse 69 70 70 Resp 20 20 B/P (MAP) 180/83 176/92 Pulse Ox 100 100 O2 Delivery Room Air Room Air Capillary Refill : Less Than 3 Seconds General Appearance: WD/WN, no apparent distress HEENT: PERRL/EOMI Neck: non-tender, full range of motion Respiratory: chest non-tender, lungs clear, normal breath sounds, no respiratory distress, no accessory muscle use Cardiovascular: normal peripheral pulses, regular rate, rhythm, no edema, no murmur Gastrointestinal: normal bowel sounds, non tender, soft, no organomegaly, no pulsatile mass Back: normal inspection, no CVA tenderness Extremities: normal range of motion, non-tender, normal inspection, no pedal edema, no calf tenderness, normal capillary refill Neurologic/Psychiatric: group [employer] department head II-XII nml as tested, no motor/sensory deficits, alert, oriented x 3 Skin: normal color, warm/dry Lymphatic: no adenopathy Short Stay Diagnosis Discharge Diagnosis-Short Stay Admission Diagnosis Altered Mental Status Psychosis UTI w/o hematuria Hyponatremia Abnormal ECG Final Discharge Diagnosis See Above Conclusion Plan 65 yo F with known schizophrenia that was admitted from the ER with altered mental status found to have UTI Plan Altered Mental Status: Resolved in the AM. Patient is alert and oriented. Likely from acute paranoia from her schizophrenia. UDS neg. She was also found to have UTI which could be contributing to mental status change. UTI: Patient was given a dose of rocephin and started on PO Cipro upon discharge. Vital signs remained stable throughout admission. Hyponatremia: Trending up this AM. Likely 2/2 to dehydration. Will monitor in clinic. Abnormal ECG: Cardiology saw patient and does not have any further inpatient recommendations at this time. They will follow her as an outpatient as she is already established Clinical Quality Measures DVT/VTE Risk/Contraindication: Risk Factor Score Per Nursin RFS Level Per Nursing on Admit: 4+=Very High Copy Copies To 1: Mary HUSSEIN HOLLY R MD Oct 21, 2016 14:30
[2016-10-21 14:59] VITALS: BP 176/92
[2016-10-21] MEDS ORDERED: ASPIRIN E.C. 81 MG (ECOTRIN) TAB PO SCH (21:00)
[2016-10-21] MEDS ORDERED: CARVEDILOL 12.5 MG (COREG) TABLET PO SCH (21:00)
[2016-10-22] MEDS ORDERED: cefTRIAXone 1 GM/NS 50 ML IVPB IV SCH ×2 (01:00)
[2016-10-22] MEDS ORDERED: DIGOXIN 0.125 MG (LANOXIN) TAB PO SCH (09:00)
[2016-10-22] MEDS ORDERED: ENALAPRIL 10 MG (VASOTEC) TAB PO SCH (09:00)
== END 2016-10-21 15:00 | disposition home or self-care (01) | DRG 690 ==
LOC: EDUNIT# 22:46 → ER 22:47 → 4TH 10-21 00:45
PROVIDERS: ADMIT Family Medicine; ATTEND Family Medicine
DX: N39.0 Urinary tract infection, site not specified (principal); E87.1 Hypo-osmolality and hyponatremia; F23 Brief psychotic disorder; I10 Essential (primary) hypertension; E11.9 Type 2 diabetes mellitus without complications; R94.31 Abnormal electrocardiogram [ECG] [EKG]; I25.10 Atherosclerotic heart disease of native coronary artery without angina pectoris; E78.5 Hyperlipidemia, unspecified; E05.90 Thyrotoxicosis, unspecified without thyrotoxic crisis or storm; I69.328 Other speech and language deficits following cerebral infarction; Z79.4 Long term (current) use of insulin; Z95.810 Presence of automatic (implantable) cardiac defibrillator; Z95.1 Presence of aortocoronary bypass graft
CPT/HCPCS: 36415; 70450; 71010; 80053; 80162; 80306; 80320; 80329; 81000; 83735; 85025; 87088; 93041; 96365

== ENCOUNTER → 2016-11-25 | Outpatient (CLI) | payer MEDICARE, OTHER ==
[~2016-11-25] MED LIST changes: +ACET-575 PO; +ACET-93 PO; +CIPR500T4 PO; +CRAN1CAP5 PO; +LOPE2TAB64 PO; +LURA20TA PO; +LURA40TA3 PO
== END ==
LOC: RAD 13:12
PROVIDERS: ATTEND Nurse Practitioner Family
DX: I25.10 Atherosclerotic heart disease of native coronary artery without angina pectoris (principal); I65.23 Occlusion and stenosis of bilateral carotid arteries; R26.89 Other abnormalities of gait and mobility; E78.4 Other hyperlipidemia; Z95.0 Presence of cardiac pacemaker
CPT/HCPCS: 93923

== ENCOUNTER → 2017-02-03 | Outpatient (CLI) | payer OTHER ==
[~2017-02-03] MED LIST changes: +CATHETER FLUSH 10 ML SYR IV PRN; +REGADENOSON 0.4 MG/5 ML SYR (LEXISCAN) IV ONE
[2017-02-03 09:20] VITALS: BP 153/88
--- NOTE | 2017-02-03 21:19 | STRESS TEST ---
DATE OF SERVICE: 02/03/2017 RESTING AND POST REGADENOSON TECHNETIUM 99-M TETROFOSMIN SPECT CT IMAGING: ORDERING PHYSICIAN: Alyssa Cerrato APRN. PRIMARY PHYSICIAN: Mary Goins APRN. OTHER PHYSICIAN: Dr. Varma. CLINICAL DIAGNOSES: Coronary artery disease. Baseline images were carried out after injection of 10.92 mCi of technetium 99-m Tetrofosmin. This was followed by 0.4 mg regadenoson and mCi of technetium 99-m Tetrofosmin for stress imaging. The electrocardiogram showed a paced atrial rhythm and incomplete left bundle branch block throughout the study. The electrocardiogram did not change significantly with the regadenoson infusion. Review of images at rest and following stress indicates a small anteroseptal perfusion defect that appears transient. Gated images show normal global left ventricular systolic function with normal regional wall motion. Left ventricular ejection fraction is calculated to be 62%. Left ventricular inner diastolic volume is 74 mL. TID is absent (1.05). CONCLUSIONS: 1. This study is indicative of a small to moderate anteroseptal ischemia. 2. Normal regional wall motion. 3. Normal global left ventricular systolic function with a calculated ejection fraction of 62%. 4. Normal left ventricular cavity size. Job ID: [id number] DocumentID: [id number] Dictated Date: 02/03/2017 12:26:28 Room Service Server Date: 02/03/2017 18:09:08 Dictated By: TRAY VARMA MD, MA, FACP, FACC,
== END ==
LOC: CARD 07:24
PROVIDERS: ATTEND Nurse Practitioner Family
DX: I25.10 Atherosclerotic heart disease of native coronary artery without angina pectoris (principal); I65.23 Occlusion and stenosis of bilateral carotid arteries; R06.09 Other forms of dyspnea
CPT/HCPCS: 78452; 93017

== ENCOUNTER 2017-02-16 05:20 | Emergency (ER) | payer OTHER ==
[~2017-02-16] VITALS: Ht 162.6 cm; Wt 80.7 kg
[~2017-02-16 05:20] MED LIST changes: -CATHETER FLUSH 10 ML SYR IV PRN; -REGADENOSON 0.4 MG/5 ML SYR (LEXISCAN) IV ONE
--- NOTE | 2017-02-16 05:41 | ED EENT ---
History of Present Illness General Chief Complaint: Dental Problems/Pain Stated Complaint: GEN PAIN TOOTH PAIN Nursing Triage Note: PT TO ED 5 W/ C/O DENTAL PAIN ONSET X3 DAYS, WORSE TODAY. Source: patient, other Exam Limitations: no limitations History of Present Illness Time seen by provider: 05:34 Initial Comments Patient presents to ER by private conveyance with chief complaint she is having left lower posterior molar pain. She is not having any discharge or bleeding from her mouth. She says she had a crown there fell out about a year ago. This pain started about 3 days ago. She is not seeing anyone for. She's used aspirin without much help. She's had no nausea, fevers, chills. She does not have a dentist that she sees. She says she is hoping she could get some pain pills for it. She has a heart catheter later today or tomorrow with Dr. Jo. She says she's been told in the past not to use NSAIDs. She is having a heart catheter because of a positive stress test that was obtained secondary to her having some intermittent chest pains. Allergies and Home Medications Allergies Coded Allergies: Bleach (Sodium Hypochlorite) (Verified Allergy, Unknown, 09/25/16) corn (Unverified Allergy, Unknown, 02/07/10) perfume (Verified Allergy, Unknown, 09/25/16) Home Medications Acetaminophen 500 Mg Tablet, 1,000 MG PO Q6H PRN for PAIN-MILD, (Reported) TAKES 2 (500 MG) TABLETS Aspirin 81 Mg Tablet.dr, 81 MG PO HS, (Reported) Carvedilol 12.5 Mg Tablet, 12.5 MG PO BID, (Reported) LAST FILLED 09/04/16 #60 Ciprofloxacin HCl 500 Mg Tablet, 500 MG PO BID for 7 Days, #7 Prescribed by: CINDY THOMPSON on 10/21/16 1426 Digoxin 125 Mcg Tablet, 125 MCG PO DAILY, (Reported) LAST FILLED 09/04/16 #30 Enalapril Maleate 20 Mg Tablet, 20 MG PO DAILY, (Reported) LAST FILLED 09/04/16 #30 Insulin Aspart 100 Unit/1 Ml Insuln.pen, 5 UNIT SQ TIDAC, (Reported) LAST FILLED 06/30/16 #30 ML Loperamide HCl 2 Mg Tablet, 4 MG PO PRN PRN for DIARRHEA, (Reported) TAKES 2 (2 MG) TABLETS Lurasidone HCl 20 Mg Tablet, 20 MG PO DAILY, (Reported) TAKES IN CONJUNCTION WITH LATUDA 40 MG FOR A TOTAL DOSE OF 60 MG DAILY Lurasidone HCl 40 Mg Tablet, 40 MG PO DAILY, (Reported) TAKES IN CONJUNCTION WITH LATUDA 20 MG FOR A TOTAL DOSE OF 60 MG DAILY Review of Systems Constitutional: No chills, No diaphoresis Eyes: Denies Blurred Vision, Denies Drainage Ears: Denies Dizziness, Denies Pain Nose: denies clots, denies congestion Mouth: denies clots, pain, denies swelling, denies bloody discharge, denies clear discharge, denies purulent discharge, denies previous injury Throat: denies pain, denies swelling Respiratory: No cough, No wheezing Cardiovascular: chest pain, No palpitations Past Gvuhjst-Nwrcux-Xnyexl Hx Patient Social History Alcohol Use: Denies Use Recreational Drug Use: No Smoking Status: Never a Smoker 2nd Hand Smoke Exposure: No Recent Foreign Travel: No Contact w/Someone Who Travel: No Recent Infectious Disease Expo: No Recent Hopitalizations: No Physical Abuse: No Sexual Abuse: No Mistreated: No Fear: No Immunizations Up To Date Tetanus Booster (TDap): Unknown PED Vaccines UTD: No Date of Pneumonia Vaccine: Apr 09, 2010 Seasonal Allergies Seasonal Allergies: No Surgeries History of Surgeries: Yes Surgeries: CABG, Hysterectomy, Pacemaker Respiratory History of Respiratory Disorde: No Cardiovascular History of Cardiac Disorders: Yes Cardiac Disorders: Coronary Artery Disease, Irregular Heartbeat Neurological History of Neurological Disord: Yes Neurological Disorders: Stroke Reproductive System Hx Reproductive Disorders: No 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 Genitourinary History of Genitourinary Disor: Yes Genitourinary Disorders: UTI-Chronic Gastrointestinal History of Gastrointestinal Di: No Gastrointestinal Disorders: Gall Bladder Disease Musculoskeletal History of Musculoskeletal Dis: Yes Musculoskeletal Disorders: Arthritis Endocrine History of Endocrine Disorders: Yes Endocrine Disorders: Diabetes, Insulin dep HEENT History of HEENT Disorders: Yes HEENT Disorders: Cataract, Macular Degeneration Loss of Vision: Denies Hearing Impairment: Denies Cancer History of Cancer: No Psychosocial History of Psychiatric Problem: Yes Behavioral Health Disorders: Anxiety, Schizophrenia, Depression Suicide Risk Score: 0 Integumentary History of Skin or Integumenta: No Blood Transfusions History of Blood Disorders: No Adverse Reaction to a Blood Tr: No Family Medical History Significant Family History: No Pertinent Family Hx Family Medial History: Family history: Diabetes mellitus 19 MOTHER Family history: Hypertension 19 FATHER 19 MOTHER Psychotic disorder G8 BROTHER (MENTAL HEALTH PROBLEMS) Physical Exam Vital Signs Vital Sign - Last 12Hours 02/16/17 05:25 Temp 97.8 Pulse 70 Resp 18 B/P (MAP) 225/108 (147) Pulse Ox 99 O2 Delivery Room Air General Appearance: WD/WN, mild distress Eyes: bilateral eye normal inspection, bilateral eye PERRL, bilateral eye EOMI Ears: bilateral ear auricle normal, bilateral ear canal normal Nose: normal inspection, No active bleeding, No discharge Mouth/Throat: other (extensive dental caries without abscess or discharge.) Neck: non-tender, normal inspection Cardiovascular: normal peripheral pulses, regular rate, rhythm Neurologic/Psychiatric: alert, oriented x 3 Progress/Results/Core Measures Results/Orders My Orders Orders - STEVEN VILLELA Lidocaine 2% Viscous 15 Ml (Xylocaine Vi (02/16/17 05:45) Vital Signs/I&O Vital Sign - Last 12Hours 02/16/17 05:25 Temp 97.8 Pulse 70 Resp 18 B/P (MAP) 225/108 (147) Pulse Ox 99 O2 Delivery Room Air Blood Pressure Mean: 147 Progress Note : Time: 05:43 Progress Note The patient is declining an alveolar nerve block. We'll use viscous lidocaine, Tylenol, amoxicillin. Departure Impression Impression: Primary Impression: Dental caries Disposition: 01 HOME, SELF-CARE Condition: Stable Departure-Patient Inst. Decision time for Depature: 05:43 Referrals: [facility] Primary Care Physician WOOD CALDERON (Family) Primary Care Physician Patient Instructions: Dental Pain (DC) Add. Discharge Instructions: Tylenol 1000 g every 8 hours as needed, heat and ice applied directly over the jaw where it hurts. Apply a small amount of the lidocaine gauze directly over the infected tooth every 2-4 hours as needed for pain. When you run out of the viscous lidocaine you may also use Orajel applied directly over the tooth. [place] your teeth at least twice a day and use mouth wash. Follow-up with a dentist at your earliest convenience. Obtain and start the amoxicillin one capsule 3 times a day with food for one week. All discharge instructions reviewed with patient and/or family. Voiced understanding. Scripts Hydrocodone/Acetaminophen (Hydrocodon -Acetaminophen 5-325) 1 Each Tablet 1 EACH PO Q6H Y for BREAKTHROUGH PAIN, #10 TAB 0 Refills Prov: STEVEN VILLELA 02/16/17 Amoxicillin (Amoxicillin) 500 Mg Capsule 500 MG PO TID for 7 Days, #21 CAP 0 Refills Prov: STEVEN VILLELA 02/16/17 Copy Copies To 1: BOONE IRAHETA TITUS J Feb 16, 2017 05:41
[2017-02-16] MEDS ORDERED: LIDOCAINE 2% VISCOUS 15 ML UDC PO ONE (05:45)
[2017-02-16] MEDS ORDERED: AMOX500C2 PO (05:48)
[2017-02-16] MEDS ORDERED: HYDR-3812 PO (05:48)
[2017-02-16 05:55] VITALS: BP 199/101
== END 2017-02-16 05:55 | disposition home or self-care (01) ==
LOC: EDUNIT# 05:20 → ER 05:23
DX: K02.9 Dental caries, unspecified (principal); F41.9 Anxiety disorder, unspecified; F32.9 Major depressive disorder, single episode, unspecified; F20.9 Schizophrenia, unspecified; E11.9 Type 2 diabetes mellitus without complications; I25.10 Atherosclerotic heart disease of native coronary artery without angina pectoris; Z79.4 Long term (current) use of insulin; Z79.82 Long term (current) use of aspirin; Z95.0 Presence of cardiac pacemaker; Z95.1 Presence of aortocoronary bypass graft; Z86.73 Personal history of transient ischemic attack (TIA), and cerebral infarction without residual deficits; Z90.710 Acquired absence of both cervix and uterus
CPT/HCPCS: 99282

== ENCOUNTER 2017-02-24 08:00 | Day surgery (SDC) | payer OTHER ==
[2017-02-24] VITALS (13 sets, daily range): BP systolic 144–190; BP diastolic 63–92
[~2017-02-24] VITALS: Ht 162.6 cm; Wt 80.3 kg
[~2017-02-24 08:00] MED LIST changes: +AMOX500C2 PO; +HYDR-3812 PO
--- OUTSIDE RECORDS SUMMARY | 2017-02-24 08:04 | XMS REPORT ---
Author Author WOOD CALDERON Organization [facility] Address [address] [place] [address] Care Team Providers Care Senior Product Marketing Manager Name Role Phone WOOD CALDERON Unavailable PROBLEMS Type Condition ICD9-CM Code [id number] Code Onset Dates Condition Status SNOMED Code Problem Coronary artery disease involving [place] coronary artery of [place] heart without angina pectoris I25.10 Active 7454146569597 Problem Bipolar affective disorder, current episode mixed, current episode severity unspecified F31.60 Active 091320735 Problem Pacemaker Z95.0 Active 573418282 Problem Diabetes E11.9 Active 30416940 Problem Psychosis, unspecified psychosis type F29 Active 87190128 Problem CVA (cerebral vascular accident) I63.9 Active 922280663 ALLERGIES Unknown Allergies SOCIAL HISTORY No smoking Hx information available PLAN OF CARE VITAL SIGNS MEDICATIONS Medication Instructions Dosage Frequency Start Date End Date Duration Status NovoLog Flexpen 100 unit/mL Subcutaneous 3 times a day Inject 15 Unit before meals 8h 08 Oct, 2012 Active Levemir 100 UNIT/ML Subcutaneous 2 times a day inject 18 Units by Subcutaneous route 2 times per day 12h 20 May, 2013 Active RESULTS No Results PROCEDURES No Known procedures IMMUNIZATIONS No Known Immunizations
--- OUTSIDE RECORDS SUMMARY | 2017-02-24 08:04 | XMS REPORT ---
Author Author JOSSELIN ROSENBERG [facility] Address [address] [place] [address] Care Team Providers Care Charge Out Clerk Name Role Phone SHAKIRAJOSSELIN Unavailable PROBLEMS Type Condition ICD9-CM Code [id number] Code Onset Dates Condition Status SNOMED Code Problem Coronary artery disease involving [place] coronary artery of [place] heart without angina pectoris I25.10 Active 2870204181834 Problem Bipolar affective disorder, current episode mixed, current episode severity unspecified F31.60 Active 710958448 Problem CVA (cerebral vascular accident) I63.9 Active 202716143 Problem Pacemaker Z95.0 Active 221164824 Problem Psychosis, unspecified psychosis type F29 Active 83239985 Problem Diabetes E11.9 Active 94701002 ALLERGIES Substance Reaction Event Type Date Status Codeine Sulfate Unknown Drug Allergy Apr, Active [place] Unknown Non Drug Allergy Apr, Active [place] Unknown Non Drug Allergy Apr, Active Pork Unknown Non Drug Allergy Apr, Active Yeast Unknown Non Drug Allergy Apr, Active [place] Unknown Non Drug Allergy Apr, Active SOCIAL HISTORY Never Assessed PLAN OF CARE Activity Details Follow Up 3 Weeks Reason: VITAL SIGNS Height 64 in 2016-04-18 Weight 173.0 lbs 2016-04-18 Heart Rate 72 bpm 2016-04-18 Respiratory Rate 20 2016-04-18 BMI 29.69 kg/m2 2016-04-18 Blood pressure systolic 160 mmHg 2016-04-18 Blood pressure diastolic 100 mmHg 2016-04-18 MEDICATIONS Medication Instructions Dosage Frequency Start Date End Date Duration Status Ziprasidone HCl 80 MG Orally Once a day 1 capsule with food 24h 30 days Active Magnesium Oxide 400 MG Orally Once a day 1 tablet 24h Active Fish Oil Concentrate 1000 mg 1 Capsule by Oral route 3 times per day Jun, Active Artificial Tear Ophthalmic 3 times a day 1 drop as needed 8h Active 28-0.8 MG Active Levemir 100 UNIT/ML Subcutaneous 2 times a day inject 18 Units by Subcutaneous route 2 times per day 12h 20 May, 2013 Active NovoLog Flexpen 100 unit/mL Subcutaneous 3 times a day Inject 15 Unit before meals 8h 08 Oct, 2012 Active Loratadine 10 MG Orally Once a day 1 tablet 24h Active Tylenol 325 MG Orally every 6 hrs 2 tablets as needed 6h Active Benadryl Allergy 25 MG Active Aspirin Adult Low Strength 81 MG Orally Once a day 1 tablet 24h Active Metformin HCl 500 MG Orally Twice a day 2 tablets 12h 30 days Active Flonase 50 mcg/actuation 1 sprays by Nasal route 2 times per day in each nostril 24 Jun, 2013 Active Enalapril Maleate 20 mg 1 Tablet by Oral route 1 time per day qHS Sep, Active BD Insulin Syringe 30G X 1/2 as directed 12h Mar, Active Carvedilol 12.5 mg 1 capsule by Oral route 2 times per day Feb, Active Flonase Allergy Relief 50 MCG/ACT Nasally twice per day 1 spray in each nostril Apr, 30 day(s) Active RESULTS No Results PROCEDURES Procedure Date Ordered Result Body Site [facility] VISIT ESTABLISHED PATIENT Apr 18, 2016 IMMUNIZATIONS No Known Immunizations MEDICAL (GENERAL) HISTORY Type Description Date Medical History HBP Medical History Heart Disease Medical History Stroke 90's Medical History Cardiac Pacemakes Medical History Blood Thinners Medical History Arthitis Medical History Back Trouble Medical History Bipolar affect, depressed Medical History Bipolar affect, depressed Medical History Other bipolar disorder Surgical History Carotid Surgical History Bypass Surgical History cholecystectomy Surgical History colonscopy Surgical History Pacemaker Hospitalization History Stroke Hospitalization History Surgery Hospitalization History Hyperglycemia 2012 Hospitalization History [facility] 11/28/2015-2015 Hospitalization History Schizophrenia 09/26/16 Hospitalization History AMS, UTI, hyponatremia-[facility] 10/21/16
--- OUTSIDE RECORDS SUMMARY | 2017-02-24 08:04 | XMS REPORT ---
Author Author WOOD CADLERON Organization [facility] Address [address] [place] [address] Care Team Providers Care Acid Correction Hand Name Role Phone WOOD CALDERON Unavailable PROBLEMS Type Condition ICD9-CM Code [id number] Code Onset Dates Condition Status SNOMED Code Problem Coronary artery disease involving [place] coronary artery of [place] heart without angina pectoris I25.10 Active 4053432806093 Problem Bipolar affective disorder, current episode mixed, current episode severity unspecified F31.60 Active 829996808 Problem CVA (cerebral vascular accident) I63.9 Active 620707022 Problem Pacemaker Z95.0 Active 582443254 Problem Psychosis, unspecified psychosis type F29 Active 14202171 Problem Diabetes E11.9 Active 28344440 ALLERGIES Unknown Allergies SOCIAL HISTORY No smoking Hx information available PLAN OF CARE VITAL SIGNS MEDICATIONS Medication Instructions Dosage Frequency Start Date End Date Duration Status BD Insulin Syringe 30G X 1/2" 0.5 ML as directed 12h 05 Mar, 2016 Active RESULTS No Results PROCEDURES No Known procedures IMMUNIZATIONS No Known Immunizations
--- OUTSIDE RECORDS SUMMARY | 2017-02-24 08:04 | XMS REPORT ---
Author Author WOOD CALDERON Organization [facility] Address [address] [place] [address] Care Team Providers Care Machine Filler Shredder Name Role Phone WOOD CALDERON Unavailable PROBLEMS Type Condition ICD9-CM Code IMR72-PR Code Onset Dates Condition Status SNOMED Code Problem Coronary artery disease involving [place] coronary artery of [place] heart without angina pectoris I25.10 Active 8298655780688 Problem Bipolar affective disorder, current episode mixed, current episode severity unspecified F31.60 Active 977956330 Problem CVA (cerebral vascular accident) I63.9 Active 471447929 Problem Pacemaker Z95.0 Active 774092965 Problem Psychosis, unspecified psychosis type F29 Active 77685732 Problem Diabetes E11.9 Active 57137543 ALLERGIES Substance Reaction Event Type Date Status Codeine Sulfate Unknown Drug Allergy Mar, Active [place] Unknown Non Drug Allergy Mar, Active [place] Unknown Non Drug Allergy Mar, Active [place] Unknown Non Drug Allergy Mar, Active Yeast Unknown Non Drug Allergy Mar, Active [place] Unknown Non Drug Allergy Mar, Active SOCIAL HISTORY No smoking Hx information available PLAN OF CARE Activity Details Follow Up 4 Months Reason:DM VITAL SIGNS Height 64 in 2016-03-20 Weight 173.6 lbs 2016-03-20 Temperature 97.8 degrees Fahrenheit 2016-03-20 Heart Rate 66 bpm 2016-03-20 Respiratory Rate 20 2016-03-20 BMI 29.80 kg/m2 2016-03-20 Blood pressure systolic 160 mmHg 2016-03-20 Blood pressure diastolic 102 mmHg 2016-03-20 MEDICATIONS Medication Instructions Dosage Frequency Start Date End Date Duration Status Carvedilol 12.5 mg 1 capsule by Oral route 2 times per day Feb, Active 28-0.8 MG Active Enalapril Maleate 20 mg 1 Tablet by Oral route 1 time per day qHS Sep, Active Digoxin 125 MCG Orally Once a day 1 tablet 24h 30 Active Metformin HCl 500 MG Orally Twice a day 2 tablets 12h Active BD Insulin Syringe 30G X 1/2 as directed 12h Mar, Active Ziprasidone HCl 60 mg Orally QHS 1 capsule with food Active Fish Oil Concentrate 1000 mg 1 Capsule by Oral route 3 times per day Jun, Active Loratadine 10 MG Orally Once a day 1 tablet 24h Active Magnesium Oxide 400 MG Orally Once a day 1 tablet 24h Active Macrobid 100 MG Orally every 12 hrs 1 capsule with food 12h 12 Mar, 2016 Mar, 7 day(s) Active Flonase 50 mcg/actuation 1 sprays by Nasal route 2 times per day in each nostril Jun, Active Aspirin Adult Low Strength 81 MG Orally Once a day 1 tablet 24h Active Levemir 100 UNIT/ML Subcutaneous 2 times a day inject 18 Units by Subcutaneous route 2 times per day 12h May, Active Artificial Tear Ophthalmic 3 times a day 1 drop as needed 8h Active NovoLog Flexpen 100 unit/mL Subcutaneous 3 times a day Inject 15 Unit before meals 8h 08 Oct, 2012 Active RESULTS Name Result Date Reference Range A1C (IN HOUSE) 2016-03-20 A1C IN HOUSE 8.5 4.3 - 5.6 % Previous A1c N/A Lot [id number] Exp date 12/2017 MICROALBUMIN, URINE (IN HOUSE) 2016-03-20 MICROALBUMIN abnormal Lot # [id number] Exp date 03-26 Clarity cloudy Color yellow ALB 30 CRE 50 A:C (IN HOUSE) 30-300 Control + Control Lot # Exp date UA LONG DIP (IN HOUSE) 2016-03-20 Lot # [id number] Exp date 11/2016 Clarity turbid Color light yellow Odor yes GLU 2+ MAO Neg KET Neg SG 1.010 BLO Trace-lysed pH 5.0 Protein Neg URO 0.2 NIT Neg MERLENE 1+ Lot # Exp date CULTURE, URINE 2016-03-20 Urine Culture, Routine Final report Result 1 CBC 2016-03-20 WBC 6.0 3.4-10.8 RBC 4.49 3.77-5.28 Hemoglobin 13.0 11.1-15.9 Hematocrit 39.9 34.0-46.6 MCV 89 79-97 MCH 29.0 26.6-33.0 MCHC 32.6 31.5-35.7 RDW 14.0 12.3-15.4 Platelets 177 150-379 Neutrophils 70 Lymphs 22 Monocytes 5 Eos 2 Basos 1 Neutrophils (Absolute) 4.2 1.4-7.0 Lymphs (Absolute) 1.3 0.7-3.1 Monocytes(Absolute) 0.3 0.1-0.9 Eos (Absolute) 0.1 0.0-0.4 Baso (Absolute) 0.0 0.0-0.2 Immature Granulocytes 0 Immature Grans (Abs) 0.0 0.0-0.1 LIPID PANEL 2016-03-20 Cholesterol, Total 243 100-199 Triglycerides 203 0-149 HDL Cholesterol 50 >39 VLDL Cholesterol Wilder 41 5-40 LDL Cholesterol Calc 152 0-99 Comment: CMP 2016-03-20 Glucose, Serum 287 65-99 BUN 20 8-27 Creatinine, Serum 1.03 0.57-1.00 eGFR If NonAfricn Am 56 >59 eGFR If Africn Am 65 >59 BUN/Creatinine Ratio 19 11-26 Sodium, Serum 137 134-144 Potassium, Serum 4.5 3.5-5.2 Chloride, Serum 97 96-106 Carbon Dioxide, Total 24 18-29 Calcium, Serum 9.3 8.7-10.3 Protein, Total, Serum 7.1 6.0-8.5 Albumin, Serum 4.2 3.6-4.8 Globulin, Total 2.9 1.5-4.5 A/G Ratio 1.4 1.1-2.5 Bilirubin, Total 0.4 0.0-1.2 Alkaline Phosphatase, S 135 39-117 AST (SGOT) 23 0-40 ALT (SGPT) 22 0-32 PROCEDURES Procedure Date Ordered Related Diagnosis Body Site MICROALBUMIN, SEMIQUANT Mar 20, 2016 GLYCATED HEMOGLOBIN TEST Mar 20, 2016 VENIPUNCT, ROUTINE* Mar 20, 2016 [facility] Mar 20, 2016 URINALYSIS, AUTO, W/O SCOPE Mar 20, 2016 Office Visit, Est Pt., Level 3 Mar 20, 2016 [facility] VISIT ESTABLISHED PATIENT Mar 20, 2016 IMMUNIZATIONS No Known Immunizations
[2017-02-24] MEDS ORDERED: HEParin (CATH LAB) 2,000 ML IV ONE (08:05)
[2017-02-24] MEDS ORDERED: NS IV 1000 ML 1,000 ML ONE (08:05)
[2017-02-24] MEDS ORDERED: LIDOCAINE 1% INJ 50 ML (XYLOCAINE) VIAL ONE (08:05)
--- OUTSIDE RECORDS SUMMARY | 2017-02-24 08:05 | XMS REPORT ---
Author Author WOOD CALDERON Organization [facility] Address [address] [place] [address] Care Team Providers Care Rn Dermatology Name Role Phone WOOD CALDERON Unavailable PROBLEMS Type Condition ICD9-CM Code [id number] Code Onset Dates Condition Status SNOMED Code Problem Coronary artery disease involving [place] coronary artery of [place] heart without angina pectoris I25.10 Active 9579442961335 Problem Bipolar affective disorder, current episode mixed, current episode severity unspecified F31.60 Active 653467729 Problem CVA (cerebral vascular accident) I63.9 Active 716414110 Problem Pacemaker Z95.0 Active 050314963 Problem Psychosis, unspecified psychosis type F29 Active 77309283 Problem Diabetes E11.9 Active 57589174 ALLERGIES No Information SOCIAL HISTORY Never Assessed PLAN OF CARE VITAL SIGNS MEDICATIONS Medication Instructions Dosage Frequency Start Date End Date Duration Status BD Insulin Syringe 31G X 5/16" 0.3 ML as directed 12h Mar, Active BD Pen Needle [place] U/F 32G X 4 MM as directed July, Active RESULTS No Results PROCEDURES No Known procedures IMMUNIZATIONS No Known Immunizations MEDICAL (GENERAL) HISTORY [...] Surgery Hospitalization History Hyperglycemia 2012 Hospitalization History [facility] 11/28/2015-2015 Hospitalization History Schizophrenia 09/26/16 Hospitalization History AMS, UTI, hyponatremia-[facility] 10/21/16
--- OUTSIDE RECORDS SUMMARY | 2017-02-24 08:05 | XMS REPORT ---
Author Author DIANA SERRANO Organization [facility] Address [address] [place] [address] Care Team Providers Care Federal Mediator Name Role Phone DIANA SERRANO Unavailable PROBLEMS Type Condition ICD9-CM Code [id number] Code Onset Dates Condition Status SNOMED Code Problem Coronary artery disease involving [place] coronary artery of [place] heart without angina pectoris I25.10 Active 0315452838418 Problem Bipolar affective disorder, current episode mixed, current episode severity unspecified F31.60 Active 071288090 Problem CVA (cerebral vascular accident) I63.9 Active 125239191 Problem Pacemaker Z95.0 Active 289335353 Problem Psychosis, unspecified psychosis type F29 Active 32752552 Problem Diabetes E11.9 Active 62002161 ALLERGIES Substance Reaction Event Type Date Status Codeine Sulfate Unknown Drug Allergy Apr, Active Gilbert Unknown Non Drug Allergy Apr, Active Tejeda Unknown Non Drug Allergy Apr, Active Pork Unknown Non Drug Allergy Apr, Active Yeast Unknown Non Drug Allergy Apr, Active [place]green Unknown Non Drug Allergy Apr, Active SOCIAL HISTORY No smoking Hx information available PLAN OF CARE Activity Details Follow Up prn Reason: VITAL SIGNS Height 64 in 2016-04-11 Weight 173.6 lbs 2016-04-11 Temperature 98.4 degrees Fahrenheit 2016-04-11 Heart Rate 74 bpm 2016-04-11 Respiratory Rate 20 2016-04-11 BMI 29.80 kg/m2 2016-04-11 Blood pressure systolic 162 mmHg 2016-04-11 Blood pressure diastolic 110 mmHg 2016-04-11 MEDICATIONS Medication Instructions Dosage Frequency Start Date End Date Duration Status Aspirin Adult Low Strength 81 MG Orally Once a day 1 tablet 24h Active Fish Oil Concentrate 1000 mg 1 Capsule by Oral route 3 times per day Jun, Active Flonase 50 mcg/actuation 1 sprays by Nasal route 2 times per day in each nostril Jun, Active Carvedilol 12.5 mg 1 capsule by Oral route 2 times per day Feb, Active Enalapril Maleate 20 mg 1 Tablet by Oral route 1 time per day qHS Sep, Active Levemir 100 UNIT/ML Subcutaneous 2 times a day inject 18 Units by Subcutaneous route 2 times per day 12h 20 May, 2013 Active BD Insulin Syringe 30G X 1/2 as directed 12h Mar, Active Magnesium Oxide 400 MG Orally Once a day 1 tablet 24h Active 28-0.8 MG Active Metformin HCl 500 MG Orally Twice a day 2 tablets 12h 30 days Active Tylenol 325 MG Orally every 6 hrs 2 tablets as needed 6h Active Loratadine 10 MG Orally Once a day 1 tablet 24h Active Artificial Tear Ophthalmic 3 times a day 1 drop as needed 8h Active NovoLog Flexpen 100 unit/mL Subcutaneous 3 times a day Inject 15 Unit before meals 8h Oct, Active Flonase Allergy Relief 50 MCG/ACT Nasally twice per day 1 spray in each nostril Apr, 30 day(s) Active Benadryl Allergy 25 MG Active RESULTS Name Result Date Reference Range UA LONG DIP (IN HOUSE) 2016-04-11 Lot # [id number] Exp date 2017-04-08 Clarity clear Color yellow Odor none GLU negative MAO negative KET negative SG 1.020 BLO negative pH 6.0 Protein negative URO 0.2 NIT negative MERLENE trace Lot # [id number] Exp date 2017-04 CULTURE, URINE 2016-04-11 Urine Culture, Routine Final report Result 1 PROCEDURES Procedure Date Ordered Related Diagnosis Body Site URINALYSIS, AUTO, W/O SCOPE Apr 11, 2016 LAB NOT BILLED BY [facility] Apr 11, 2016 Office Visit, Est Pt., Level 3 Apr 11, 2016 [facility] VISIT ESTABLISHED PATIENT Apr 11, 2016 IMMUNIZATIONS No Known Immunizations
--- OUTSIDE RECORDS SUMMARY | 2017-02-24 08:05 | XMS REPORT ---
Author Author BREONNA LEE Organization [facility] Address [address] [place] [address] Care Team Providers Care Marketing Strategist Name Role Phone BREONNA LEE Unavailable PROBLEMS Type Condition ICD9-CM Code [id number] Code Onset Dates Condition Status SNOMED Code Problem Coronary artery disease involving [place] coronary artery of [place] heart without angina pectoris I25.10 Active 8260042230130 Problem Bipolar affective disorder, current episode mixed, current episode severity unspecified F31.60 Active 839625936 Problem CVA (cerebral vascular accident) I63.9 Active 286932262 Problem Pacemaker Z95.0 Active 662209547 Problem Psychosis, unspecified psychosis type F29 Active 77263351 Problem Diabetes E11.9 Active 58645147 ALLERGIES Substance Reaction Event Type Date Status Codeine Sulfate Unknown Drug Allergy May, Active Mcleod Unknown Non Drug Allergy May, Active Tejeda Unknown Non Drug Allergy May, Active Pork Unknown Non Drug Allergy May, Active Yeast Unknown Non Drug Allergy May, Active Preston Unknown Non Drug Allergy May, Active SOCIAL HISTORY Never Assessed PLAN OF CARE Activity Details Follow Up prn Reason: VITAL SIGNS Height 64 in 2016-05-17 Weight 168 lbs 2016-05-17 Temperature 97.3 degrees Fahrenheit 2016-05-17 Heart Rate 76 bpm 2016-05-17 Respiratory Rate 20 2016-05-17 BMI 28.83 kg/m2 2016-05-17 Blood pressure systolic 190 mmHg 2016-05-17 Blood pressure diastolic 106 mmHg 2016-05-17 MEDICATIONS Medication Instructions Dosage Frequency Start Date End Date Duration Status Enalapril Maleate 20 mg 1 Tablet by Oral route 1 time per day qHS Sep, Active Amoxicillin 500 MG Orally every 8 hrs 1 capsule 8h May, May, 7 days Active Levemir 100 UNIT/ML Subcutaneous 2 times a day inject 18 Units by Subcutaneous route 2 times per day 12h 20 May, 2013 Active Flonase 50 mcg/actuation 1 sprays by Nasal route 2 times per day in each nostril Jun, Active NovoLog Flexpen 100 unit/mL Subcutaneous 3 times a day Inject 15 Unit before meals 8h Oct, Active 28-0.8 MG Active Artificial Tear Ophthalmic 3 times a day 1 drop as needed 8h Active Flonase Allergy Relief 50 MCG/ACT Nasally twice per day 1 spray in each nostril Apr, 30 day(s) Active NovoLog Flexpen 100 UNIT/ML INJECT 15 UNITS SUBCUTANEOUSLY THREE TIMES DAILY BEFORE MEALS 66 Active Magnesium Oxide 400 MG Orally Once a day 1 tablet 24h Active Benadryl Allergy 25 MG Active BD Insulin Syringe 30G X 1/2 as directed 12h Mar, Active Aspirin Adult Low Strength 81 MG Orally Once a day 1 tablet 24h Active Metformin HCl 500 MG Orally Twice a day 2 tablets 12h 30 days Active Loratadine 10 MG Orally Once a day 1 tablet 24h Active Carvedilol 12.5 mg 1 capsule by Oral route 2 times per day Feb, Active Tylenol 325 MG Orally every 6 hrs 2 tablets as needed 6h Active Fish Oil Concentrate 1000 mg 1 Capsule by Oral route 3 times per day Jun, Active Ziprasidone HCl 80 MG Orally Once a day 1 capsule with food 24h 30 days Active RESULTS No Results PROCEDURES Procedure Date Ordered Result Body Site [facility] VISIT ESTABLISHED PATIENT May 17, 2016 IMMUNIZATIONS No Known Immunizations MEDICAL (GENERAL) [...] Hospitalization History Hyperglycemia 2012 Hospitalization History [facility] 11/28/2015-2015 Hospitalization History Schizophrenia 09/26/16 Hospitalization History AMS, UTI, hyponatremia-[facility] 10/21/16
--- OUTSIDE RECORDS SUMMARY | 2017-02-24 08:05 | XMS REPORT ---
Author Author WOOD CALDERON Organization [facility] Address [address] [place] [address] Care Team Providers Care Crystallographer Name Role Phone WOOD CALDERON Unavailable PROBLEMS Type Condition ICD9-CM Code [id number] Code Onset Dates Condition Status SNOMED Code Problem Coronary artery disease involving [place] coronary artery of [place] heart without angina pectoris I25.10 Active 8950378216249 Problem Bipolar affective disorder, current episode mixed, current episode severity unspecified F31.60 Active 974647680 Problem CVA (cerebral vascular accident) I63.9 Active 371696856 Problem Pacemaker Z95.0 Active 123709100 Problem Psychosis, unspecified psychosis type F29 Active 38573001 Problem Diabetes E11.9 Active 49870144 ALLERGIES Substance Reaction Event Type Date Status Codeine Sulfate Unknown Drug Allergy July, Active [place] Unknown Non Drug Allergy July, Active Tejeda Unknown Non Drug Allergy July, Active Pork Unknown Non Drug Allergy July, Active Yeast Unknown Non Drug Allergy July, Active Edison Unknown Non Drug Allergy July, Active SOCIAL HISTORY Never Assessed PLAN OF CARE Activity Details Follow Up 3 Months Reason:DM VITAL SIGNS Height 64 in 2016-07-28 Weight 172.4 lbs 2016-07-28 Temperature 98.0 degrees Fahrenheit 2016-07-28 Heart Rate 76 bpm 2016-07-28 Respiratory Rate 20 2016-07-28 BMI 29.59 kg/m2 2016-07-28 Blood pressure systolic 162 mmHg 2016-07-28 Blood pressure diastolic 88 mmHg 2016-07-28 MEDICATIONS Medication Instructions Dosage Frequency Start Date End Date Duration Status Carvedilol 12.5 mg 1 capsule by Oral route 2 times per day Feb, Active Fish Oil Concentrate 1000 mg 1 Capsule by Oral route 3 times per day Jun, Active Levemir 100 unit/ml Subcutaneous 2 times a day inject 25 Units by Subcutaneous route in AM and 20 u in PM 12h 20 May, 2013 Active Aspirin Adult Low Strength 81 MG Orally Once a day 1 tablet 24h Active Flonase 50 mcg/actuation 1 sprays by Nasal route 2 times per day in each nostril Jun, Active Benadryl Allergy 25 MG Active BD Pen Needle [place] U/F 32G X 4 MM as directed 12h July, Active Loratadine 10 MG Orally Once a day 1 tablet 24h Active NovoLog Flexpen 100 unit/mL Subcutaneous 3 times a day Inject 15 Unit before meals 8h Oct, Active Metformin HCl 500 mg Orally Twice a day 2 tablets 12h 90 days Active Ziprasidone HCl 80 MG Orally Once a day 1 capsule with food 24h 30 days Active Magnesium Oxide 400 MG Orally Once a day 1 tablet 24h Active Enalapril Maleate 20 mg 1 Tablet by Oral route 1 time per day q Sep, Active Tylenol 325 MG Orally every 6 hrs 2 tablets as needed 6h Active Artificial Tear Ophthalmic 3 times a day 1 drop as needed 8h Active BD Insulin Syringe 31G X 5/16 as directed 12Mar, Active RESULTS Name Result Date Reference Range A1C (IN HOUSE) 2016-07-28 A1C IN HOUSE 7.9 4.3 - 5.6 % Previous A1c 8.5 Lot [id number] Exp date 03/2018 PROCEDURES Procedure Date Ordered Result Body Site GLYCATED HEMOGLOBIN TEST July 28, 2016 IMMUNIZATIONS No Known Immunizations MEDICAL (GENERAL) HISTORY Type Description Date Medical History HBP Medical History Heart Disease Medical History Stroke 's Medical History Cardiac Pacemakes Medical History Blood Thinners Medical History Arthitis Medical History Back Trouble Medical History Bipolar affect, depressed Medical History Bipolar affect, depressed Medical History Other bipolar disorder Surgical History Carotid Surgical History Bypass Surgical History cholecystectomy Surgical History colonscopy Surgical History Pacemaker Hospitalization History Stroke Hospitalization History Surgery Hospitalization History Hyperglycemia 2012 Hospitalization History [facility] 11/28/2015-2015 2016 Hospitalization History Schizophrenia 09/26/16 Hospitalization History AMS, UTI, hyponatremia-[facility] 10/21/16
--- OUTSIDE RECORDS SUMMARY | 2017-02-24 08:05 | XMS REPORT ---
Author Author JOSSELIN ROSENBERG Organization [facility] Address [address] [place] [address] Care Team Providers Care Photography Professor Name Role Phone SHAKIRA, JOSSELIN Unavailable PROBLEMS Type Condition ICD9-CM Code [id number] Code Onset Dates Condition Status SNOMED Code Problem Coronary artery disease involving [place] coronary artery of [place] heart without angina pectoris I25.10 Active 1939235117160 Problem Bipolar affective disorder, current episode mixed, current episode severity unspecified F31.60 Active 229865111 Problem CVA (cerebral vascular accident) I63.9 Active 448293191 Problem Pacemaker Z95.0 Active 888408569 Problem Psychosis, unspecified psychosis type F29 Active 00571655 Problem Diabetes E11.9 Active 76784454 ALLERGIES No Information SOCIAL HISTORY Never Assessed PLAN OF CARE VITAL SIGNS MEDICATIONS Medication Instructions Dosage Frequency Start Date End Date Duration Status Ziprasidone HCl 80 MG Orally Once a day 1 capsule with food 24h 30 days Active RESULTS No Results PROCEDURES No Known [...] Surgery Hospitalization History Hyperglycemia 2012 Hospitalization History [facility] 11/28/2015-2015 2016 Hospitalization History Schizophrenia 09/26/16 Hospitalization History AMS, UTI, hyponatremia-[facility] 10/21/16
--- OUTSIDE RECORDS SUMMARY | 2017-02-24 08:07 | XMS REPORT | Continuity of Care Document ---
Author Author [facility] Address Unknown Phone Unavailable Allergies Active Description Code Type Severity Reaction Onset Reported/Identified Relationship to Patient Clinical Status Yes corn [id number] Drug Allergy Unknown N/A 02/07/2010 Yes [place] Food Allergy N/A N/A 07/30/2011 Yes Pork Food Allergy N/A N/A 07/30/2011 Yes [place] Food Allergy N/A N/A 07/30/2011 Yes yeast Food Allergy N/A N/A 07/30/2011 Yes [place] Food Allergy 07/30/2011 Yes Pork Food Allergy 07/30/2011 Yes [place] Food Allergy 07/30/2011 Yes yeast Food Allergy 07/30/2011 Yes CORN Food Allergy N/A N/A 06/23/2012 Yes CORN Food Allergy 06/23/2012 Yes Bleach (Sodium Hypochlorite) [id number] Drug Allergy Unknown N/A 2016 Yes perfume [id number] Drug Allergy Unknown N/A 09/25/2016 Medications There is no data. Problems Date Dx Coded Attending Type Code Diagnosis Diagnosed By WOOD CALDERON APRN 272.4 HYPERLIPIDEMIA WOOD CALDERON APRN S 296.40 BIPOLAR I DISORDER, MOST RECENT EPISODE, MANIC CHALO CALDERON APRNA S 296.80 BIPOLAR DISORDER NOS CHALO CALDERON APRNA S 296.90 EPISODIC MOOD DISORDERS WOOD CALDERON APRN S 300.00 anxiety WOOD CALDERON APRN S 300.4 DYSTHYMIC DISORDER (DEPRESSIVE NEUROSIS) WOOD CALDERON APRN 307.47 NIGHTMARE DISORDER WOOD CALDERON APRN S 425.4 CARDIOMYOPATHY [employer] SUPERVISOR, WOOD S 427.9 RHYTHM DISORDER [employer] SUPERVISORELWOOD S 455.6 HEMORRHOIDS [employer] SUPERVISOREL RodriguezNDA S 578.1 red blood in bowel movement (hematochezia) [employer] SUPERVISOREL RodriguezNDA S 625.9 pelvic pain [employer] SUPERVISOREL RodriguezNDA S 787.91 diarrhea [employer] SUPERVISOR, WOOD S 796.2 Blood Pressure Isolated Elevated [employer] SUPERVISORELWOOD S V58.69 taking high-risk medication CHALO CALDERON APRNA S V65.49 Self-Care Education - Need To Report Postmenopausal Bleeding CHALO CALDERON APRNA S V76.10 visit for: screening exam malignant neoplasm breast BOONE IRAHETA DO K 272.4 HYPERLIPIDEMIA MYRTLE SPICER BOONE K 296.40 BIPOLAR I DISORDER, MOST RECENT EPISODE, MANIC MYRTLE SPICER BOONE K 296.80 BIPOLAR DISORDER NOS MYRTLE SPICER BOONE K 296.90 EPISODIC MOOD DISORDERS MYRTLE SPICER BOONE K 300.00 anxiety MYRTLE SPICER BOONE K 300.4 DYSTHYMIC DISORDER (DEPRESSIVE NEUROSIS) MARBIN IRAHETA DOA K 307.47 NIGHTMARE DISORDER MARBIN IRAHETA DOA K 425.4 CARDIOMYOPATHY MYRTLE SPICER BOONE K 427.9 RHYTHM DISORDER MYRTLE SPICER BOONE K 455.6 HEMORRHOIDS MYRTLE SPICER BOONE K 578.1 red blood in bowel movement (hematochezia) MYRTLE SPICER BOONE K 625.9 pelvic pain MYRTLE SPICER BOONE K 787.91 diarrhea MYRTLE SPICER BOONE K 796.2 Blood Pressure Isolated Elevated MARBIN IRAHETA DOA K V58.69 taking high-risk medication BOONE IRAHETA DO V65.49 Self-Care Education - Need To Report Postmenopausal Bleeding BOONE IRAHETA DO V76.10 visit for: screening exam malignant neoplasm breast [employer] SUPERVISOR, MIGUEL L 272.4 HYPERLIPIDEMIA [employer] SUPERVISOR, MIGUEL L 296.40 BIPOLAR I DISORDER, MOST RECENT EPISODE, MANIC [employer] SUPERVISOR, MIGUEL L 296.80 BIPOLAR DISORDER NOS [employer] SUPERVISOR, MIGUEL L 296.90 EPISODIC MOOD DISORDERS [employer] SUPERVISOR, MIGUEL L 300.00 anxiety [employer] SUPERVISOR, MIGUEL L 300.4 DYSTHYMIC DISORDER (DEPRESSIVE NEUROSIS) [employer] SUPERVISOR, MIGUEL L 307.47 NIGHTMARE DISORDER [employer] SUPERVISOR, MIGUEL L 425.4 CARDIOMYOPATHY [employer] SUPERVISOR, MIGUEL L 427.9 RHYTHM DISORDER [employer] SUPERVISOR, MIGUEL L 455.6 HEMORRHOIDS [employer] SUPERVISOR, MIGUEL L 578.1 red blood in bowel movement (hematochezia) [employer] SUPERVISOR, MIGUEL L 625.9 pelvic pain [employer] SUPERVISOR, MIGUEL L 787.91 diarrhea [employer] SUPERVISOR, MIGUEL L 796.2 Blood Pressure Isolated Elevated [employer] SUPERVISOR, MIGUEL L V58.69 taking high-risk medication [employer] SUPERVISOR, MIGUEL L V65.49 Self-Care Education - Need To Report Postmenopausal Bleeding [employer] SUPERVISOR, MIGUEL L V76.10 visit for: screening exam malignant neoplasm breast CARLITA WAITE MD 272.4 HYPERLIPIDEMIA CARLITA WAITE MD 296.40 BIPOLAR I DISORDER, MOST RECENT EPISODE, MANIC RAVINDRA GLASER, CARLITA 296.80 BIPOLAR DISORDER NOS RAVINDRA GLASER, CARLITA 296.90 EPISODIC MOOD DISORDERS RAVINDRA GLASER, CARLITA 300.00 anxiety RAVINDRA GLASER, CARLITA 300.4 DYSTHYMIC DISORDER (DEPRESSIVE NEUROSIS) RAVINDRA GLASER, CARLITA 307.47 NIGHTMARE DISORDER RAVINDRA GLASER, CARLITA 425.4 CARDIOMYOPATHY RAVINDRA GLASER, CARLITA 427.9 RHYTHM DISORDER RAVINDRA GLASER, CARLITA 455.6 HEMORRHOIDS RAVINDRA GLASER, CARLITA 578.1 red blood in bowel movement (hematochezia) RAVINDRA GLASER, CARLITA 625.9 pelvic pain RAVINDRA GLASER, CARLITA 787.91 diarrhea RAVINDRA GLASER, CARLITA 796.2 Blood Pressure Isolated Elevated RAVINDRA GLASER, CARLITA V58.69 taking high-risk medication RAVINDRA GLASER, CARLITA V65.49 Self-Care Education - Need To Report Postmenopausal Bleeding RAVINDRA GLASER, CARLITA V76.10 visit for: screening exam malignant neoplasm breast DAYANA ESTRADA APRN R 272.4 HYPERLIPIDEMIA ALESHA ESTRADA APRNIA R 296.40 BIPOLAR I DISORDER, MOST RECENT EPISODE, MANIC ALESHA ESTRADA APRNIA R 296.80 BIPOLAR DISORDER NOS JOSÉ ESTRADA APRNRICIA R 296.90 EPISODIC MOOD DISORDERS JOSÉ ESTRADA APRNRICIA R 300.00 anxiety JOSÉ ESTRADA APRNRICIA R 300.4 DYSTHYMIC DISORDER (DEPRESSIVE NEUROSIS) DAYANA ESTRADA APRN R 307.47 NIGHTMARE DISORDER DAYANA ESTRADA APRN R 425.4 CARDIOMYOPATHY DAYANA ESTRADA APRN R 427.9 RHYTHM DISORDER DAYANA ESTRADA APRN R 455.6 HEMORRHOIDS [employer]STR[employer] SUPERVISOR, DAYANA R 578.1 red blood in bowel movement (hematochezia) ESTRADA [employer] SUPERVISOR, DAYANA R 625.9 pelvic pain ESTRADA [employer] SUPERVISOR, DAYANA R 787.91 diarrhea [employer] SUPERVISOR, DAYANA R 796.2 Blood Pressure Isolated Elevated SEAN HAIRSTONN, DAYANA R V58.69 taking high-risk medication SEAN HAIRSTONN, DAYANA R V65.49 Self-Care Education - Need To Report Postmenopausal Bleeding SEAN HAIRSTONN, DAYANA R V76.10 visit for: screening exam malignant neoplasm breast ESTEE MORRIS, KATHY R 272.4 HYPERLIPIDEMIA ESTEE HAIRSTONN, KATHY R 296.40 BIPOLAR I DISORDER, MOST RECENT EPISODE, MANIC ESTEE MORRIS, KATHY R 296.80 BIPOLAR DISORDER NOS ESTEE HAIRSTONN, KTAHY R 296.90 EPISODIC MOOD DISORDERS ESTEE HAIRSTONN, KATHY R 300.00 anxiety ESTEE HAIRSTONN, KATHY R 300.4 DYSTHYMIC DISORDER (DEPRESSIVE NEUROSIS) ESTEE HAIRSTONN, KATHY R 307.47 NIGHTMARE DISORDER ESTEE HAIRSTONN, KATHY R 425.4 CARDIOMYOPATHY ESTEE HAIRSTONN, KATHY R 427.9 RHYTHM DISORDER ESTEE HAIRSTONN, KATHY R 455.6 HEMORRHOIDS ESTEE HAIRSTONN, KATHY R 578.1 red blood in bowel movement (hematochezia) ESTEE HAIRSTONN, KATHY R 625.9 pelvic pain ESTEE HAIRSTONN, KATHY R 787.91 diarrhea ESTEE HAIRSTONN, KATHY R 796.2 Blood Pressure Isolated Elevated ESTEE HAIRSTONN, KATHY R V58.69 taking high-risk medication ESTEE MORRIS, KATHY R V65.49 Self-Care Education - Need To Report Postmenopausal Bleeding KATHY FONTANEZ APRN V76.10 visit for: screening exam malignant neoplasm breast 09/27/2007 AMIEFLORES CHIQUITA F 250.00 DIABETES MELLITUS POORLY CONTROLLED 09/27/2007 AMIESHANICE CHIQUITA F 401.1 ESSENTIAL HYPERTENSION BENIGN 09/27/2007 KEN SPICER CHIQUITA F 553.3 HIATAL HERNIA 09/27/2007 KEN DO CHIQUITA F 616.10 VULVITIS 09/27/2007 YUMIKO HAIRSTONN, WOOD S 250.00 DIABETES MELLITUS POORLY CONTROLLED 09/27/2007 YUMIKO HAIRSTONN, WOOD S 401.1 ESSENTIAL HYPERTENSION BENIGN 09/27/2007 YUMIKO MORRIS, WOOD S 553.3 HIATAL HERNIA 09/27/2007 YUMIKO MORRIS, WOOD S 616.10 VULVITIS 09/27/2007 TRUNG PHD, ERNESTO Chatman 250.00 DIABETES MELLITUS POORLY CONTROLLED 09/27/2007 TRUNG PHD, ERNESTO Chatman 401.1 ESSENTIAL HYPERTENSION BENIGN 09/27/2007 TRUNG PHD, ERNESTO A 553.3 HIATAL HERNIA 09/27/2007 TRUNG PHD, ERNESTO A 616.10 VULVITIS 09/27/2007 IRAHETA DO BOONE K 250.00 DIABETES MELLITUS POORLY CONTROLLED 09/27/2007 MYRTLE DO BOONE K 401.1 ESSENTIAL HYPERTENSION BENIGN 09/27/2007 IRAHETA DO, BOONE K 553.3 HIATAL HERNIA 09/27/2007 IRAHETA DO, BOONE K 616.10 VULVITIS 09/27/2007 IRAHETA DO BOONE K 250.00 DIABETES MELLITUS POORLY CONTROLLED 09/27/2007 IRAHETA DO BOONE K 401.1 ESSENTIAL HYPERTENSION BENIGN 09/27/2007 IRAHETA DO, BOONE K 553.3 HIATAL HERNIA 09/27/2007 IRAHETA DO, BOONE K 616.10 VULVITIS 09/27/2007 IRAHETA DO, BOONE K 250.00 DIABETES MELLITUS POORLY CONTROLLED 09/27/2007 IRAHETA DO, BOONE K 401.1 ESSENTIAL HYPERTENSION BENIGN 09/27/2007 IRAHETA DO, BOONE K 553.3 HIATAL HERNIA 09/27/2007 IRAHETA DO, BOONE K 616.10 VULVITIS 09/27/2007 250.00 DIABETES MELLITUS POORLY CONTROLLED 09/27/2007 401.1 ESSENTIAL HYPERTENSION BENIGN 09/27/2007 553.3 HIATAL HERNIA 09/27/2007 616.10 VULVITIS 09/27/2007 250.00 DIABETES MELLITUS POORLY CONTROLLED 09/27/2007 401.1 ESSENTIAL HYPERTENSION BENIGN 09/27/2007 553.3 HIATAL HERNIA 09/27/2007 616.10 VULVITIS 09/27/2007 250.00 DIABETES MELLITUS POORLY CONTROLLED 09/27/2007 401.1 ESSENTIAL HYPERTENSION BENIGN 09/27/2007 553.3 HIATAL HERNIA 09/27/2007 616.10 VULVITIS 09/27/2007 250.00 DIABETES MELLITUS POORLY CONTROLLED 09/27/2007 401.1 ESSENTIAL HYPERTENSION BENIGN 09/27/2007 553.3 HIATAL HERNIA 09/27/2007 616.10 VULVITIS 09/27/2007 MARBIN IRAHETA DOA K 250.00 DIABETES MELLITUS POORLY CONTROLLED 09/27/2007 MYRTLE SPICER BOONE K 401.1 ESSENTIAL HYPERTENSION BENIGN 09/27/2007 MARBIN IRAHETA DOA K 553.3 HIATAL HERNIA 09/27/2007 MRABIN IRAHETA DOA K 616.10 VULVITIS 09/27/2007 YUMIKO MORRIS WOOD S 250.00 DIABETES MELLITUS POORLY CONTROLLED 09/27/2007 EL CALDERON APRNNDA S 401.1 ESSENTIAL HYPERTENSION BENIGN 09/27/2007 YUMIKO MORRIS WOOD S 553.3 HIATAL HERNIA 09/27/2007 YUMIKO MORRIS WOOD S 616.10 VULVITIS 09/27/2007 MYRTLE SPICER BOONE K 250.00 DIABETES MELLITUS POORLY CONTROLLED 09/27/2007 MARBIN IRAHETA DOA K 401.1 ESSENTIAL HYPERTENSION BENIGN 09/27/2007 MYRTLE SPICER BOONE K 553.3 HIATAL HERNIA 09/27/2007 IRAHETA DO BOONE K 616.10 VULVITIS 09/27/2007 FRANCISCO LEW APRNA L 250.00 DIABETES MELLITUS POORLY CONTROLLED 09/27/2007 FRANCISCO LEW APRNA L 401.1 ESSENTIAL HYPERTENSION BENIGN 09/27/2007 LOUANN MORRIS MIGUEL L 553.3 HIATAL HERNIA 09/27/2007 HANSEL LEW APRNNYA L 616.10 VULVITIS 09/27/2007 CARLITA WAITE MD 250.00 DIABETES MELLITUS POORLY CONTROLLED 09/27/2007 CARLITA WAITE MD 401.1 ESSENTIAL HYPERTENSION BENIGN 09/27/2007 CARLITA WAITE MD 553.3 HIATAL HERNIA 09/27/2007 CARLITA WAITE MD 616.10 VULVITIS 09/27/2007 SEAN [employer] SUPERVISOR, DAYANA R 250.00 DIABETES MELLITUS POORLY CONTROLLED 09/27/2007 SE[employer] SUPERVISOR, DAYANA R 401.1 ESSENTIAL HYPERTENSION BENIGN 09/27/2007 SEAN MORRIS, DAYANA R 553.3 HIATAL HERNIA 09/27/2007 SE[employer] SUPERVISOR, DAYANA R 616.10 VULVITIS 09/27/2007 ESTEE [employer] SUPERVISOR, KATHY R 250.00 DIABETES MELLITUS POORLY CONTROLLED 09/27/2007 ESTEE [employer] SUPERVISOR, KATHY R 401.1 ESSENTIAL HYPERTENSION BENIGN 09/27/2007 ESTEE HAIRSTONN, KATHY R 553.3 HIATAL HERNIA 09/27/2007 ESTEE MORRIS, KATHY R 616.10 VULVITIS 11/10/2007 CHIQUITA ROGERS DO 296.80 MO BIPOLAR NOS 11/10/2007 WOOD CALDERON APRN 296.80 MO BIPOLAR NOS 11/10/2007 TRUNG PHD, ERNESTO Chatman 296.80 MO BIPOLAR NOS 11/10/2007 BOONE IRAHETA DO 296.80 MO BIPOLAR NOS 11/10/2007 BOONE IRAHETA DO 296.80 MO BIPOLAR NOS 11/10/2007 BOONE IRAHETA DO 296.80 MO BIPOLAR NOS 11/10/2007 296.80 MO BIPOLAR NOS 11/10/2007 296.80 MO BIPOLAR NOS 11/10/2007 296.80 MO BIPOLAR NOS 11/10/2007 296.80 MO BIPOLAR NOS 11/10/2007 BOONE IRAHETA DO 296.80 MO BIPOLAR NOS 11/22/2007 CHIQUITA ROGERS DO V72.31 Pelvic Exam (Internal) 11/22/2007 WOOD CALDERON APRN V72.31 Pelvic Exam (Internal) 11/22/2007 TRUNG PHD, ERNESTO Chatman V72.31 Pelvic Exam (Internal) 11/22/2007 BOONE IRAHETA DO V72.31 Pelvic Exam (Internal) 11/22/2007 BOONE IRAHETA DO V72.31 Pelvic Exam (Internal) 11/22/2007 BOONE IRAHETA DO V72.31 Pelvic Exam (Internal) 11/22/2007 V72.31 Pelvic Exam ( Internal) 11/22/2007 V72.31 Pelvic Exam ( Internal) 11/22/2007 V72.31 Pelvic Exam ( Internal) 11/22/2007 V72.31 Pelvic Exam ( Internal) 11/22/2007 BOONE IRAHETA DO V72.31 Pelvic Exam (Internal) 11/22/2007 WOOD CALDERON APRN V72.31 Pelvic Exam (Internal) 11/22/2007 BOONE IRAHETA DO V72.31 Pelvic Exam (Internal) 11/22/2007 L[employer]ANN [employer] SUPERVISOR, MIGUEL York V72.31 Pelvic Exam (Internal) 11/22/2007 CARLITA WAITE MD V72.31 Pelvic Exam (Internal) 11/22/2007 SEAN [employer] SUPERVISOR, DAYANA Almonte V72.31 Pelvic Exam (Internal) 11/22/2007 ESTEE [employer] SUPERVISOR, KATHY Almonte V72.31 Pelvic Exam (Internal) 04/22/2008 CHIQUITA ROGERS DO 250.02 DIABETES MELLITUS WITHOUT MENTION OF COMPLICATION TYPE II OR UNSPECIFIED TYPE UNCONTROLLED 04/22/2008 WOOD CALDERON APRN 250.02 DIABETES MELLITUS WITHOUT MENTION OF COMPLICATION TYPE II OR UNSPECIFIED TYPE UNCONTROLLED 04/22/2008 TRUNG PHD, ERNESTO A 250.02 DIABETES MELLITUS WITHOUT MENTION OF COMPLICATION TYPE II OR UNSPECIFIED TYPE UNCONTROLLED 04/22/2008 BOONE IRAHETA DO 250.02 DIABETES MELLITUS WITHOUT MENTION OF COMPLICATION TYPE II OR UNSPECIFIED TYPE UNCONTROLLED 04/22/2008 BOONE IRAHETA DO 250.02 DIABETES MELLITUS WITHOUT MENTION OF COMPLICATION TYPE II OR UNSPECIFIED TYPE UNCONTROLLED 04/22/2008 BOONE IRAHETA DO 250.02 DIABETES MELLITUS WITHOUT MENTION OF COMPLICATION TYPE II OR UNSPECIFIED TYPE UNCONTROLLED 04/22/2008 250.02 DIABETES MELLITUS WITHOUT MENTION OF COMPLICATION TYPE II OR UNSPECIFIED TYPE UNCONTROLLED 04/22/2008 250.02 DIABETES MELLITUS WITHOUT MENTION OF COMPLICATION TYPE II OR UNSPECIFIED TYPE UNCONTROLLED 04/22/2008 250.02 DIABETES MELLITUS WITHOUT MENTION OF COMPLICATION TYPE II OR UNSPECIFIED TYPE UNCONTROLLED 04/22/2008 250.02 DIABETES MELLITUS WITHOUT MENTION OF COMPLICATION TYPE II OR UNSPECIFIED TYPE UNCONTROLLED 04/22/2008 BOONE IRAHETA DO 250.02 DIABETES MELLITUS WITHOUT MENTION OF COMPLICATION TYPE II OR UNSPECIFIED TYPE UNCONTROLLED 04/22/2008 YUMIKO [employer] SUPERVISOR, WOOD S 250.02 DIABETES MELLITUS WITHOUT MENTION OF COMPLICATION TYPE II OR UNSPECIFIED TYPE UNCONTROLLED 04/22/2008 MYRTLE SPICER BOONE K 250.02 DIABETES MELLITUS WITHOUT MENTION OF COMPLICATION TYPE II OR UNSPECIFIED TYPE UNCONTROLLED 04/22/2008 [employer] SUPERVISOR, MIGUEL York 250.02 DIABETES MELLITUS WITHOUT MENTION OF COMPLICATION TYPE II OR UNSPECIFIED TYPE UNCONTROLLED 04/22/2008 CARLITA WAITE MD 250.02 DIABETES MELLITUS WITHOUT MENTION OF COMPLICATION TYPE II OR UNSPECIFIED TYPE UNCONTROLLED 04/22/2008 SEAN [employer] SUPERVISOR, DAYANA R 250.02 DIABETES MELLITUS WITHOUT MENTION OF COMPLICATION TYPE II OR UNSPECIFIED TYPE UNCONTROLLED 04/22/2008 ESTEE [employer] SUPERVISOR, KATHY R 250.02 DIABETES MELLITUS WITHOUT MENTION OF COMPLICATION TYPE II OR UNSPECIFIED TYPE UNCONTROLLED 05/31/2008 CHIQUITA ROGERS DO 564.1 IRRITABLE BOWEL SYNDROME 05/31/2008 CHIQUITA ROGERS DO 786.2 cough 05/31/2008 WOOD CALDERON APRN S 564.1 IRRITABLE BOWEL SYNDROME 05/31/2008 WOOD CALDERON APRN S 786.2 cough 05/31/2008 TRUNG PHD, ERNSETO Chatman 564.1 IRRITABLE BOWEL SYNDROME 05/31/2008 TRUNG PHD, ERNESTO Chatman 786.2 cough 05/31/2008 MYRTLE DO BOONE K 564.1 IRRITABLE BOWEL SYNDROME 05/31/2008 IRAHETA DO BOONE K 786.2 cough 05/31/2008 IRAHETA DO BOONE K 564.1 IRRITABLE BOWEL SYNDROME 05/31/2008 IRAHETA DO BOONE K 786.2 cough 05/31/2008 IRAHETA DO BOONE K 564.1 IRRITABLE BOWEL SYNDROME 05/31/2008 IRAHETA DO, BOONE K 786.2 cough 05/31/2008 564.1 IRRITABLE BOWEL SYNDROME 05/31/2008 786.2 cough 05/31/2008 564.1 IRRITABLE BOWEL SYNDROME 05/31/2008 786.2 cough 05/31/2008 564.1 IRRITABLE BOWEL SYNDROME 05/31/2008 786.2 cough 05/31/2008 564.1 IRRITABLE BOWEL SYNDROME 05/31/2008 786.2 cough 05/31/2008 IRAHETA DO BOONE K 564.1 IRRITABLE BOWEL SYNDROME 05/31/2008 IRAHETA DO, BOONE K 786.2 cough 05/31/2008 YUMIKO MORRIS, WOOD S 564.1 IRRITABLE BOWEL SYNDROME 05/31/2008 YUMIKO MORRIS, WOOD S 786.2 cough 05/31/2008 IRAHETA DO BOONE K 564.1 IRRITABLE BOWEL SYNDROME 05/31/2008 IRAHETA DO BOONE K 786.2 cough 05/31/2008 MADJaylen [employer] SUPERVISOR, MIGUEL L 564.1 IRRITABLE BOWEL SYNDROME 05/31/2008 MADJaylen [employer] SUPERVISOR, MIGUEL L 786.2 cough 05/31/2008 CARLITA WAITE MD 564.1 IRRITABLE BOWEL SYNDROME 05/31/2008 CARLITA WAITE MD 786.2 cough 05/31/2008 SEAN MORRIS, DAYANA R 564.1 IRRITABLE BOWEL SYNDROME 05/31/2008 JOSÉ ESTRADA APRNRICIA R 786.2 cough 05/31/2008 ESTEE MORRIS, KATHY R 564.1 IRRITABLE BOWEL SYNDROME 05/31/2008 ESTEE MORRIS, KATHY R 786.2 cough 07/06/2008 CHIQUITA ROGERS DO 079.99 VIRAL SYNDROME 07/06/2008 CHALO CALDERON APRNA S 079.99 VIRAL SYNDROME 07/06/2008 TRUNG JADE, ERNESTO A 079.99 VIRAL SYNDROME 07/06/2008 MARBIN IRAHETA DOA K 079.99 VIRAL SYNDROME 07/06/2008 IRAHETA MARBIN SPICERA K 079.99 VIRAL SYNDROME 07/06/2008 IRAHETA MARBIN SPICERA K 079.99 VIRAL SYNDROME 07/06/2008 079.99 VIRAL SYNDROME 07/06/2008 079.99 VIRAL SYNDROME 07/06/2008 079.99 VIRAL SYNDROME 07/06/2008 079.99 VIRAL SYNDROME 07/06/2008 IRAHETA DO BOONE K 079.99 VIRAL SYNDROME 07/06/2008 CHALO CALDERON APRNA S 079.99 VIRAL SYNDROME 07/06/2008 IRAHETA MARBIN SPICERA K 079.99 VIRAL SYNDROME 07/06/2008 FRANCISCO LEW APRNA L 079.99 VIRAL SYNDROME 07/06/2008 CARLITA WAITE MD 079.99 VIRAL SYNDROME 07/06/2008 DAYANA ESTRADA APRN R 079.99 VIRAL SYNDROME 07/06/2008 ESTEE [employer] SUPERVISOR, KATHY R 079.99 VIRAL SYNDROME 01/09/2009 MORA ROGERS DOEN F 461.9 SINUSITIS ACUTE 01/09/2009 YUMIKO HAIRSTONN, WOOD S 461.9 SINUSITIS ACUTE 01/09/2009 TRUNG JADE, ERNESTO Chatman 461.9 SINUSITIS ACUTE 01/09/2009 IRAHETA DO, BOONE K 461.9 SINUSITIS ACUTE 01/09/2009 IRAHETA DO, BOONE K 461.9 SINUSITIS ACUTE 01/09/2009 IRAHETA DO, BOONE K 461.9 SINUSITIS ACUTE 01/09/2009 461.9 SINUSITIS ACUTE 01/09/2009 461.9 SINUSITIS ACUTE 01/09/2009 461.9 SINUSITIS ACUTE 01/09/2009 461.9 SINUSITIS ACUTE 01/09/2009 IRAHETA DO, BOONE K 461.9 SINUSITIS ACUTE 01/09/2009 YUMIKO MORRIS, WOOD S 461.9 SINUSITIS ACUTE 01/09/2009 IRAHETA DOMARBINA K 461.9 SINUSITIS ACUTE 01/09/2009 LOUANN MORRIS, MIGUEL L 461.9 SINUSITIS ACUTE 01/09/2009 CARLITA WAITE MD 461.9 SINUSITIS ACUTE 01/09/2009 DAYANA ESTRADA APRN 461.9 SINUSITIS ACUTE 01/09/2009 ESTEE MORRIS KATHY R 461.9 SINUSITIS ACUTE 06/09/2009 CHIQUITA ROGERS DO F 477.9 ALLERGIC RHINITIS 06/09/2009 CHIQUITA ROGERS DO F 729.5 foot pain (soft tissue) 06/09/2009 CHALO CALDERON APRNA S 477.9 ALLERGIC RHINITIS 06/09/2009 CHALO CALDERON APRNA S 729.5 foot pain (soft tissue) 06/09/2009 TRUNG JADE, ERNESTO Chatman 477.9 ALLERGIC RHINITIS 06/09/2009 ERNESTO NINO PHD 729.5 foot pain (soft tissue) 06/09/2009 MYRTLE DOBOONE 477.9 ALLERGIC RHINITIS 06/09/2009 IRAHETA DO BOONE K 729.5 foot pain (soft tissue) 06/09/2009 MYRTLE DOMARBINA K 477.9 ALLERGIC RHINITIS 06/09/2009 IRAHETA DO, BOONE K 729.5 foot pain (soft tissue) 06/09/2009 IRAHETA DO, BOONE K 477.9 ALLERGIC RHINITIS 06/09/2009 IRAHETA DO, BOONE K 729.5 foot pain (soft tissue) 06/09/2009 477.9 ALLERGIC RHINITIS 06/09/2009 729.5 foot pain ( soft tissue) 06/09/2009 477.9 ALLERGIC RHINITIS 06/09/2009 729.5 foot pain ( soft tissue) 06/09/2009 477.9 ALLERGIC RHINITIS 06/09/2009 729.5 foot pain ( soft tissue) 06/09/2009 477.9 ALLERGIC RHINITIS 06/09/2009 729.5 foot pain ( soft tissue) 06/09/2009 IRAHETA DO BOONE K 477.9 ALLERGIC RHINITIS 06/09/2009 IRAHETA DO, BOONE K 729.5 foot pain (soft tissue) 06/09/2009 WOOD CALDERON APRN S 477.9 ALLERGIC RHINITIS 06/09/2009 WOOD CALDERON APRN S 729.5 foot pain (soft tissue) 06/09/2009 IRAHETA DO BOONE K 477.9 ALLERGIC RHINITIS 06/09/2009 IRAHETA DO, BOONE K 729.5 foot pain (soft tissue) 06/09/2009 [employer] SUPERVISOR, MIGUEL L 477.9 ALLERGIC RHINITIS 06/09/2009 [employer] SUPERVISOR, MIGUEL L 729.5 foot pain (soft tissue) 06/09/2009 CARLITA WAITE MD 477.9 ALLERGIC RHINITIS 06/09/2009 CARLITA WAITE MD 729.5 foot pain (soft tissue) 06/09/2009 SEAN [employer] SUPERVISOR, DAYANA R 477.9 ALLERGIC RHINITIS 06/09/2009 SEAN [employer] SUPERVISOR, DAYANA R 729.5 foot pain (soft tissue) 06/09/2009 ESTEE HAIRSTONN, KATHY R 477.9 ALLERGIC RHINITIS 06/09/2009 ESTEE [employer] SUPERVISOR, KATHY R 729.5 foot pain (soft tissue) 07/07/2009 CHIQUITA ROGERS DO 461.1 SINUSITIS ACUTE FRONTAL 07/07/2009 WOOD CALDERON APRN 461.1 SINUSITIS ACUTE FRONTAL 07/07/2009 TRUNG JADE, ERNESTO Chatman 461.1 SINUSITIS ACUTE FRONTAL 07/07/2009 BOONE IRAHETA DO K 461.1 SINUSITIS ACUTE FRONTAL 07/07/2009 BOONE IRAHETA DO K 461.1 SINUSITIS ACUTE FRONTAL 07/07/2009 BOONE IRAHETA DO K 461.1 SINUSITIS ACUTE FRONTAL 07/07/2009 461.1 SINUSITIS ACUTE FRONTAL 07/07/2009 461.1 SINUSITIS ACUTE FRONTAL 07/07/2009 461.1 SINUSITIS ACUTE FRONTAL 07/07/2009 461.1 SINUSITIS ACUTE FRONTAL 07/07/2009 MARBIN IRAHETA DOA K 461.1 SINUSITIS ACUTE FRONTAL 07/07/2009 WOOD CALDERON APRN 461.1 SINUSITIS ACUTE FRONTAL 07/07/2009 BOONE IRAHETA DO K 461.1 SINUSITIS ACUTE FRONTAL 07/07/2009 MIGUEL LEW APRN 461.1 SINUSITIS ACUTE FRONTAL 07/07/2009 CARLITA WAITE MD 461.1 SINUSITIS ACUTE FRONTAL 07/07/2009 [employer] SUPER[employer]OR, DAYANA R 461.1 SINUSITIS ACUTE FRONTAL 07/07/2009 [employer] SUPER[employer]OR, KATHY R 461.1 SINUSITIS ACUTE FRONTAL 07/09/2009 CHIQUITA ROGERS DO V58.69 LONG-TERM (CURRENT) USE OF OTHER MEDICATIONS 07/09/2009 WOOD CALDERON APRN S V58.69 LONG-TERM (CURRENT) USE OF OTHER MEDICATIONS 07/09/2009 TRUNG PHD, ERNESTO Chatman V58.69 LONG-TERM (CURRENT) USE OF OTHER MEDICATIONS 07/09/2009 BOONE IRAHETA DO V58.69 LONG-TERM (CURRENT) USE OF OTHER MEDICATIONS 07/09/2009 BOONE IRAHETA DO K V58.69 LONG-TERM (CURRENT) USE OF OTHER MEDICATIONS 07/09/2009 BOONE IRAHETA DO K V58.69 LONG-TERM (CURRENT) USE OF OTHER MEDICATIONS 07/09/2009 V58.69 LONG-TERM ( CURRENT) USE OF OTHER MEDICATIONS 07/09/2009 V58.69 LONG-TERM ( CURRENT) USE OF OTHER MEDICATIONS 07/09/2009 V58.69 LONG-TERM ( CURRENT) USE OF OTHER MEDICATIONS 07/09/2009 V58.69 LONG-TERM ( CURRENT) USE OF OTHER MEDICATIONS 07/09/2009 BOONE IRAHETA DO V58.69 LONG-TERM (CURRENT) USE OF OTHER MEDICATIONS 09/08/2009 WERDER DO, CHIQUITA F 078.19 WARTS FOOT RIGHT 09/08/2009 WERDER DO, CHIQUITA F 465.9 UPPER RESPIRATORY INFECTION 09/08/2009 [employer] SUPERVISOR WOOD S 078.19 WARTS FOOT RIGHT 09/08/2009 [employer] SUPERVISOR, WOOD S 465.9 UPPER RESPIRATORY INFECTION 09/08/2009 TRUNG JADE, ERNESTO Chatman 078.19 WARTS FOOT RIGHT 09/08/2009 TRUNG JADE, ERNESTO Chatman 465.9 UPPER RESPIRATORY INFECTION 09/08/2009 MYRTLE DOBOONE K 078.19 WARTS FOOT RIGHT 09/08/2009 IRAHETA DO BOONE K 465.9 UPPER RESPIRATORY INFECTION 09/08/2009 IRAHETA DO BOONE K 078.19 WARTS FOOT RIGHT 09/08/2009 IRAHETA DO, BOONE K 465.9 UPPER RESPIRATORY INFECTION 09/08/2009 MYRTLE DOBOONE K 078.19 WARTS FOOT RIGHT 09/08/2009 IRAHETA DO, BOONE K 465.9 UPPER RESPIRATORY INFECTION 09/08/2009 078.19 WARTS FOOT RIGHT 09/08/2009 465.9 UPPER RESPIRATORY INFECTION 09/08/2009 078.19 WARTS FOOT RIGHT 09/08/2009 465.9 UPPER RESPIRATORY INFECTION 09/08/2009 078.19 WARTS FOOT RIGHT 09/08/2009 465.9 UPPER RESPIRATORY INFECTION 09/08/2009 078.19 WARTS FOOT RIGHT 09/08/2009 465.9 UPPER RESPIRATORY INFECTION 09/08/2009 IRAHETA DO BOONE K 078.19 WARTS FOOT RIGHT 09/08/2009 IRAHETA DO, BOONE K 465.9 UPPER RESPIRATORY INFECTION 09/08/2009 [employer] SUPER[employer]OR, WOOD S 078.19 WARTS FOOT RIGHT 09/08/2009 [employer] SUPERVISOR, WOOD S 465.9 UPPER RESPIRATORY INFECTION 09/08/2009 IRAHETA DO, BOONE K 078.19 WARTS FOOT RIGHT 09/08/2009 IRAHETA DO, BOONE K 465.9 UPPER RESPIRATORY INFECTION 09/08/2009 [employer] SUPER[employer]OR, MIGUEL L 078.19 WARTS FOOT RIGHT 09/08/2009 [employer] SUPERVISOR, MIGUEL L 465.9 UPPER RESPIRATORY INFECTION 09/08/2009 RAVINDRA GLASER, CARLITA 078.19 WARTS FOOT RIGHT 09/08/2009 RAVINDRA GLASER, CARLITA 465.9 UPPER RESPIRATORY INFECTION 09/08/2009 [employer] SUPERVISOR, DAYANA R 078.19 WARTS FOOT RIGHT 09/08/2009 [employer] SUPERVISOR, DAYANA R 465.9 UPPER RESPIRATORY INFECTION 09/08/2009 [employer] SUPERVISOR, KATHY R 078.19 WARTS FOOT RIGHT 09/08/2009 [employer] SUPERVISOR, KATHY R 465.9 UPPER RESPIRATORY INFECTION 10/17/2009 CHIQUITA ROGERS DO 296.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 10/17/2009 YUMIKO MORRIS, WOOD Jasso 296.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 10/17/2009 TRUNG JADE, ERNESTO Chatman 296.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 10/17/2009 BOONE IRAHETA DO 296.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 10/17/2009 BOONE IRAHETA DO 296.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 10/17/2009 BOONE IRAHETA DO 296.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 10/17/2009 296.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 10/17/2009 296.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 10/17/2009 296.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 10/17/2009 296.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 10/17/2009 BOONE IRAHETA DO 296.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 02/12/2010 Ot 250.80 02/12/2010 Ot 300.4 02/12/2010 Ot 403.90 02/12/2010 Ot 414.01 02/12/2010 Ot 427.32 02/12/2010 Ot 428.0 02/12/2010 Ot 428.21 02/12/2010 Ot 477.9 02/12/2010 Ot 530.81 02/12/2010 Ot 553.3 02/12/2010 Ot 584.9 02/12/2010 Ot 585.9 02/12/2010 Ot 716.90 02/12/2010 Ot V12.54 02/12/2010 Ot V45.77 02/12/2010 Ot V45.79 02/25/2010 CHIQUITA ROGERS DO 427.89 SINUS TACHYCARDIA 02/25/2010 CHIQUITA ROGERS DO 427.9 CARDIAC DYSRHYTHMIA UNSPECIFIED 02/25/2010 CHIQUITA ROGERS DO 461.8 ACUTE PANSINUSITIS 02/25/2010 [employer] SUPERVISOR, WOOD S 427.89 SINUS TACHYCARDIA 02/25/2010 [employer] SUPERVISOR, WOOD S 427.9 CARDIAC DYSRHYTHMIA UNSPECIFIED 02/25/2010 [employer] SUPERVISOR, WOOD S 461.8 ACUTE PANSINUSITIS 02/25/2010 TRUNG JADE, ERNESTO Chatman 427.89 SINUS TACHYCARDIA 02/25/2010 TRUNG JADE, ERNESTO A 427.9 CARDIAC DYSRHYTHMIA UNSPECIFIED 02/25/2010 TRUNG PHD, ERNESTO A 461.8 ACUTE PANSINUSITIS 02/25/2010 IRAHETA DO, BOONE K 427.89 SINUS TACHYCARDIA 02/25/2010 IRAHETA DO, BOONE K 427.9 CARDIAC DYSRHYTHMIA UNSPECIFIED 02/25/2010 IRAHETA DO, BOONE K 461.8 ACUTE PANSINUSITIS 02/25/2010 IRAHETA DO, BOONE K 427.89 SINUS TACHYCARDIA 02/25/2010 IRAHETA DO, BOONE K 427.9 CARDIAC DYSRHYTHMIA UNSPECIFIED 02/25/2010 IRAHETA DO, BOONE K 461.8 ACUTE PANSINUSITIS 02/25/2010 IRAHETA DO, BOONE K 427.89 SINUS TACHYCARDIA 02/25/2010 IRAHETA DO, BOONE K 427.9 CARDIAC DYSRHYTHMIA UNSPECIFIED 02/25/2010 IRAHETA DO, BOONE K 461.8 ACUTE PANSINUSITIS 02/25/2010 427.89 SINUS TACHYCARDIA 02/25/2010 427.9 CARDIAC DYSRHYTHMIA UNSPECIFIED 02/25/2010 461.8 ACUTE PANSINUSITIS 02/25/2010 427.89 SINUS TACHYCARDIA 02/25/2010 427.9 CARDIAC DYSRHYTHMIA UNSPECIFIED 02/25/2010 461.8 ACUTE PANSINUSITIS 02/25/2010 427.89 SINUS TACHYCARDIA 02/25/2010 427.9 CARDIAC DYSRHYTHMIA UNSPECIFIED 02/25/2010 461.8 ACUTE PANSINUSITIS 02/25/2010 427.89 SINUS TACHYCARDIA 02/25/2010 427.9 CARDIAC DYSRHYTHMIA UNSPECIFIED 02/25/2010 461.8 ACUTE PANSINUSITIS 02/25/2010 IRAHETA DO, BOONE K 427.89 SINUS TACHYCARDIA 02/25/2010 IRAHETA DO, BOONE K 427.9 CARDIAC DYSRHYTHMIA UNSPECIFIED 02/25/2010 IRAHETA DO, BOONE K 461.8 ACUTE PANSINUSITIS 02/25/2010 CHALO CALDERON APRNA S 427.89 SINUS TACHYCARDIA 02/25/2010 EL CALDERON APRNNDA S 461.8 ACUTE PANSINUSITIS 02/25/2010 IRAHETA DO, BOONE K 427.89 SINUS TACHYCARDIA 02/25/2010 IRAHETA DO, BOONE K 461.8 ACUTE PANSINUSITIS 02/25/2010 LOUANN MORRIS, MIGUEL L 427.89 SINUS TACHYCARDIA 02/25/2010 [employer] SUPERVISOR, MIGUEL L 461.8 ACUTE PANSINUSITIS 02/25/2010 CARLITA WAITE MD 427.89 SINUS TACHYCARDIA 02/25/2010 CARLITA WAITE MD 461.8 ACUTE PANSINUSITIS 02/25/2010 JOSÉ ESTRADA APRNRICIA R 427.89 SINUS TACHYCARDIA 02/25/2010 JOSÉ ESTRADA APRNRICIA R 461.8 ACUTE PANSINUSITIS 02/25/2010 ELOY FONTANEZ APRNINA R 427.89 SINUS TACHYCARDIA 02/25/2010 ESTEE MORRIS KATHY R 461.8 ACUTE PANSINUSITIS 03/12/2010 Ot 041.4 03/12/2010 Ot 250.00 03/12/2010 Ot 276.1 03/12/2010 Ot 403.90 03/12/2010 Ot 414.00 03/12/2010 Ot 427.31 03/12/2010 Ot 428.0 03/12/2010 Ot 530.81 03/12/2010 Ot 558.9 03/12/2010 Ot 585.9 03/12/2010 Ot 593.9 03/12/2010 Ot 599.0 03/12/2010 Ot V12.54 03/12/2010 Ot V45.81 03/12/2010 Ot V58.66 03/12/2010 Ot V58.69 03/28/2010 CHIQUITA ROGERS DO 428.0 CONGESTIVE HEART FAILURE 03/28/2010 CHIQUITA ROGERS DO 535.50 GASTRITIS 03/28/2010 WOOD CALDERON APRN S 428.0 CONGESTIVE HEART FAILURE 03/28/2010 WOOD CALDERON APRN S 535.50 GASTRITIS 03/28/2010 TRUNG JADE, ERNESTO Chatman 428.0 CONGESTIVE HEART FAILURE 03/28/2010 TRUNG JADE, ERNESTO Chatman 535.50 GASTRITIS 03/28/2010 IRAHETA DO, BOONE K 428.0 CONGESTIVE HEART FAILURE 03/28/2010 IRAHETA DO, BOONE K 535.50 GASTRITIS 03/28/2010 IRAHETA DO, BOONE K 428.0 CONGESTIVE HEART FAILURE 03/28/2010 IRAHETA DO, BOONE K 535.50 GASTRITIS 03/28/2010 IRAHETA DO, BOONE K 428.0 CONGESTIVE HEART FAILURE 03/28/2010 IRAHETA DO, BOONE K 535.50 GASTRITIS 03/28/2010 428.0 CONGESTIVE HEART FAILURE 03/28/2010 535.50 GASTRITIS 03/28/2010 428.0 CONGESTIVE HEART FAILURE 03/28/2010 535.50 GASTRITIS 03/28/2010 428.0 CONGESTIVE HEART FAILURE 03/28/2010 535.50 GASTRITIS 03/28/2010 428.0 CONGESTIVE HEART FAILURE 03/28/2010 535.50 GASTRITIS 03/28/2010 IRAHETA DO, BOONE K 428.0 CONGESTIVE HEART FAILURE 03/28/2010 IRAHETA DO, BOONE K 535.50 GASTRITIS 03/28/2010 YUMIKO MORRIS WOOD S 428.0 CONGESTIVE HEART FAILURE 03/28/2010 CHALO CALDERON APRNA S 535.50 GASTRITIS 03/28/2010 IRAHETA DO, BOONE K 428.0 CONGESTIVE HEART FAILURE 03/28/2010 IRAHETA DO, BOONE K 535.50 GASTRITIS 03/28/2010 LOUANN MORRIS MIGUEL L 428.0 CONGESTIVE HEART FAILURE 03/28/2010 LOUANN MORRIS MIGUEL L 535.50 GASTRITIS 03/28/2010 CARLITA WAITE MD 428.0 CONGESTIVE HEART FAILURE 03/28/2010 CARLITA WAITE MD 535.50 GASTRITIS 03/28/2010 SEAN MORRIS DAYANA R 428.0 CONGESTIVE HEART FAILURE 03/28/2010 SEAN MORRIS DAYANA R 535.50 GASTRITIS 03/28/2010 ESTEE MORRIS KATHY R 428.0 CONGESTIVE HEART FAILURE 03/28/2010 ESTEE MORRIS KATHY R 535.50 GASTRITIS 04/19/2010 CHIQUITA ROGERS DO 693.0 DERMATITIS DUE TO DRUGS AND MEDICINES 04/19/2010 CHIQUITA ROGERS DO F 787.02 nausea 04/19/2010 WOOD CALDERON APRN S 693.0 DERMATITIS DUE TO DRUGS AND MEDICINES 04/19/2010 WOOD CALDERON APRN 787.02 nausea 04/19/2010 TRUNG JADE, ERNESTO Chatman 693.0 DERMATITIS DUE TO DRUGS AND MEDICINES 04/19/2010 TRUNG JADE, ERNESTO Chatman 787.02 nausea 04/19/2010 IRAHETA DO BOONE K 693.0 DERMATITIS DUE TO DRUGS AND MEDICINES 04/19/2010 IRAHETA DOMARBINA K 787.02 nausea 04/19/2010 IRAHETA DO BOONE K 693.0 DERMATITIS DUE TO DRUGS AND MEDICINES 04/19/2010 IRAHETA DO BOONE K 787.02 nausea 04/19/2010 IRAHETA DO, BOONE K 693.0 DERMATITIS DUE TO DRUGS AND MEDICINES 04/19/2010 IRAHETA DO BOONE K 787.02 nausea 04/19/2010 693.0 DERMATITIS DUE TO DRUGS AND MEDICINES 04/19/2010 787.02 nausea 04/19/2010 693.0 DERMATITIS DUE TO DRUGS AND MEDICINES 04/19/2010 787.02 nausea 04/19/2010 693.0 DERMATITIS DUE TO DRUGS AND MEDICINES 04/19/2010 787.02 nausea 04/19/2010 693.0 DERMATITIS DUE TO DRUGS AND MEDICINES 04/19/2010 787.02 nausea 04/19/2010 MYRTLE DOMARBINA K 693.0 DERMATITIS DUE TO DRUGS AND MEDICINES 04/19/2010 IRAHETA DO BOONE K 787.02 nausea 04/19/2010 WOOD CALDERON APRN S 693.0 DERMATITIS DUE TO DRUGS AND MEDICINES 04/19/2010 WOOD CALDERON APRN 787.02 nausea 04/19/2010 MARBIN IRAHETA DOA K 693.0 DERMATITIS DUE TO DRUGS AND MEDICINES 04/19/2010 MYRTLE SPICER BOONE K 787.02 nausea 04/19/2010 MIGUEL LEW APRN L 693.0 DERMATITIS DUE TO DRUGS AND MEDICINES 04/19/2010 MIGUEL LEW APRN L 787.02 nausea 04/19/2010 CARLITA WAITE MD 693.0 DERMATITIS DUE TO DRUGS AND MEDICINES 04/19/2010 CARLITA WAITE MD 787.02 nausea 04/19/2010 DAYANA ESTRADA APRN 693.0 DERMATITIS DUE TO DRUGS AND MEDICINES 04/19/2010 JOSÉ ESTRADA APRNRICIA R 787.02 nausea 04/19/2010 ESTEE MORRISKATHY R 693.0 DERMATITIS DUE TO DRUGS AND MEDICINES 04/19/2010 ESTEE MORRISKATHY R 787.02 nausea 05/02/2010 Ot 250.00 05/02/2010 Ot 272.4 05/02/2010 Ot 278.00 05/02/2010 Ot 311 05/02/2010 Ot 403.90 05/02/2010 Ot 414.01 05/02/2010 Ot 425.4 05/02/2010 Ot 427.31 05/02/2010 Ot 427.32 05/02/2010 Ot 427.81 05/02/2010 Ot 428.0 05/02/2010 Ot 428.21 05/02/2010 Ot 458.9 05/02/2010 Ot 459.81 05/02/2010 Ot 496 05/02/2010 Ot 530.81 05/02/2010 Ot 585.9 05/02/2010 Ot V12.54 05/02/2010 Ot V15.81 05/02/2010 Ot V45.81 05/02/2010 Ot V85.42 05/23/2010 Ot 998.11 06/05/2010 Ot 388.70 06/05/2010 Ot 473.9 07/25/2010 CHIQUITA ROGERS DO 729.1 muscle aches, generalized (myalgias) 07/25/2010 CHIQUITA ROGERS DO 780.79 FATIGUE 07/25/2010 WOOD CALDERON APRN 729.1 muscle aches, generalized (myalgias) 07/25/2010 WOOD CALDERON APRN 780.79 FATIGUE 07/25/2010 TRUNG JADE, ERNESTO Chatman 729.1 muscle aches, generalized (myalgias) 07/25/2010 TRUNG JADE, ERNESTO Chatman 780.79 FATIGUE 07/25/2010 BOONE IRAHETA DO 729.1 muscle aches, generalized (myalgias) 07/25/2010 BOONE IRAHETA DO 780.79 FATIGUE 07/25/2010 BOONE IRAHETA DO 729.1 muscle aches, generalized (myalgias) 07/25/2010 BOONE IRAHETA DO 780.79 FATIGUE 07/25/2010 IRAHETA DO, BOONE K 729.1 muscle aches, generalized (myalgias) 07/25/2010 IRAHETA DO, BOONE K 780.79 FATIGUE 07/25/2010 729.1 muscle aches, generalized (myalgias) 07/25/2010 780.79 FATIGUE 07/25/2010 729.1 muscle aches, generalized (myalgias) 07/25/2010 780.79 FATIGUE 07/25/2010 729.1 muscle aches, generalized (myalgias) 07/25/2010 780.79 FATIGUE 07/25/2010 729.1 muscle aches, generalized (myalgias) 07/25/2010 780.79 FATIGUE 07/25/2010 IRAHETA DO, BOONE K 729.1 muscle aches, generalized (myalgias) 07/25/2010 IRAHETA DO, BOONE K 780.79 FATIGUE 07/25/2010 WOOD CALDERON APRN S 729.1 muscle aches, generalized (myalgias) 07/25/2010 WOOD CALDERON APRN S 780.79 FATIGUE 07/25/2010 IRAHETA DO BOONE K 729.1 muscle aches, generalized (myalgias) 07/25/2010 IRAHETA DO, BOONE K 780.79 FATIGUE 07/25/2010 MADFRANCISCO York APRNA L 729.1 muscle aches, generalized (myalgias) 07/25/2010 MADL ARTURO MIGUEL L 780.79 FATIGUE 07/25/2010 CARLITA WAITE MD 729.1 muscle aches, generalized (myalgias) 07/25/2010 CARLITA WAITE MD 780.79 FATIGUE 07/25/2010 ALESHA ESTRADA APRNIA R 729.1 muscle aches, generalized (myalgias) 07/25/2010 ALESHA ESTRADA APRNIA R 780.79 FATIGUE 07/25/2010 ELOY FONTANEZ APRNINA R 729.1 muscle aches, generalized (myalgias) 07/25/2010 ESTEE MORRIS KATHY R 780.79 FATIGUE 10/14/2010 CHIQUITA ROGERS DO F 276.7 HYPERKALEMIA 10/14/2010 CHIQUITA ROGERS DO F 593.9 RENAL INSUFFICIENCY 10/14/2010 WOOD CALDERON APRN S 276.7 HYPERKALEMIA 10/14/2010 YUMIKO HAIRSTONN, WOOD S 593.9 RENAL INSUFFICIENCY 10/14/2010 TRUNG JADE, ERNESTO A 276.7 HYPERKALEMIA 10/14/2010 TRUNG JADE, ERNESTO A 593.9 RENAL INSUFFICIENCY 10/14/2010 IRAHETA DO, BOONE K 276.7 HYPERKALEMIA 10/14/2010 IRAHETA DO, BOONE K 593.9 RENAL INSUFFICIENCY 10/14/2010 IRAHETA DO, BOONE K 276.7 HYPERKALEMIA 10/14/2010 IRAHETA DO, BOONE K 593.9 RENAL INSUFFICIENCY 10/14/2010 IRAHETA DO, BOONE K 276.7 HYPERKALEMIA 10/14/2010 IRAHETA DO, BOONE K 593.9 RENAL INSUFFICIENCY 10/14/2010 276.7 HYPERKALEMIA 10/14/2010 593.9 RENAL INSUFFICIENCY 10/14/2010 276.7 HYPERKALEMIA 10/14/2010 593.9 RENAL INSUFFICIENCY 10/14/2010 276.7 HYPERKALEMIA 10/14/2010 593.9 RENAL INSUFFICIENCY 10/14/2010 276.7 HYPERKALEMIA 10/14/2010 593.9 RENAL INSUFFICIENCY 10/14/2010 IRAHETA DO, BOONE K 276.7 HYPERKALEMIA 10/14/2010 IRAHETA DO, BOONE K 593.9 RENAL INSUFFICIENCY 10/14/2010 [employer] SUPERVISOR, WOOD S 276.7 HYPERKALEMIA 10/14/2010 [employer] SUPERVISOR, WOOD S 593.9 RENAL INSUFFICIENCY 10/14/2010 IRAHETA DO, BOONE K 276.7 HYPERKALEMIA 10/14/2010 IRAHETA DO, BOONE K 593.9 RENAL INSUFFICIENCY 10/14/2010 [employer] SUPERVISOR, MIGUEL L 276.7 HYPERKALEMIA 10/14/2010 [employer] SUPERVISOR, MIGUEL L 593.9 RENAL INSUFFICIENCY 10/14/2010 CARLITA WAITE MD 276.7 HYPERKALEMIA 10/14/2010 CARLITA WAITE MD 593.9 RENAL INSUFFICIENCY 10/14/2010 SEAN HAIRSTONN, DAYANA R 276.7 HYPERKALEMIA 10/14/2010 SEAN HAIRSTONN, DAYANA R 593.9 RENAL INSUFFICIENCY 10/14/2010 ESTEE HAIRSTONN KATHY R 276.7 HYPERKALEMIA 10/14/2010 KATHY FONTANEZ APRN R 593.9 RENAL INSUFFICIENCY 12/02/2010 Ot 250.00 12/02/2010 Ot 785.1 02/17/2011 CHIQUITA ROGERS DO 296.40 MO BIPOLAR MANIC UNSPECIFIED 02/17/2011 WOOD CALDERON APRN 296.40 MO BIPOLAR MANIC UNSPECIFIED 02/17/2011 ERNESTO NINO PHD 296.40 MO BIPOLAR MANIC UNSPECIFIED 02/17/2011 BOONE IRAHETA DO 296.40 MO BIPOLAR MANIC UNSPECIFIED 02/17/2011 BOONE IRAHETA DO 296.40 MO BIPOLAR MANIC UNSPECIFIED 02/17/2011 BOONE IRAHETA DO 296.40 MO BIPOLAR MANIC UNSPECIFIED 02/17/2011 296.40 MO BIPOLAR MANIC UNSPECIFIED 02/17/2011 296.40 MO BIPOLAR MANIC UNSPECIFIED 02/17/2011 296.40 MO BIPOLAR MANIC UNSPECIFIED 02/17/2011 296.40 MO BIPOLAR MANIC UNSPECIFIED 02/17/2011 BOONE IRAHETA DO 296.40 MO BIPOLAR MANIC UNSPECIFIED 04/16/2011 Ot 414.01 CORONARY ATHEROSCLEROSIS OF [place] CORON 04/16/2011 Ot 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 04/21/2011 CHIQUITA ROGERS DO 307.47 SI DYSSOMNIA NOS 04/21/2011 WOOD CALDERON APRN 307.47 SI DYSSOMNIA NOS 04/21/2011 ERNESTO NINO PHD 307.47 SI DYSSOMNIA NOS 04/21/2011 BOONE IRAHETA DO 307.47 SI DYSSOMNIA NOS 04/21/2011 BOONE IRAHETA DO 307.47 SI DYSSOMNIA NOS 04/21/2011 BOONE IRAHETA DO 307.47 SI DYSSOMNIA NOS 04/21/2011 307.47 SI DYSSOMNIA NOS 04/21/2011 307.47 SI DYSSOMNIA NOS 04/21/2011 307.47 SI DYSSOMNIA NOS 04/21/2011 307.47 SI DYSSOMNIA NOS 04/21/2011 BOONE IRAHETA DO 307.47 SI DYSSOMNIA NOS 05/07/2011 Ot 250.02 DIAB MIKA WO COMPL, TYPE II OR UNSPEC TY 05/07/2011 Ot 272.4 HYPERLIPIDEMIA NEC/NOS 05/07/2011 Ot 275.2 DIS MAGNESIUM METABOLISM 05/07/2011 Ot 311 DEPRESSIVE DISORDER NEC 05/07/2011 Ot 368.8 VISUAL DISTURBANCES NEC 05/07/2011 Ot 401.9 HYPERTENSION NOS 05/07/2011 Ot 414.00 CORON ATHEROSCLER NOS TYPE VESSEL, NATIV 05/07/2011 Ot 425.4 PRIM CARDIOMYOPATHY NEC 05/07/2011 Ot 729.5 PAIN IN LIMB 05/07/2011 Ot 786.59 CHEST PAIN NEC 05/07/2011 Ot 788.1 DYSURIA 05/07/2011 Ot 788.63 URGENCY OF URINATION 05/07/2011 Ot 793.11 SOLITARY PULMONARY NODULE 05/07/2011 Ot V45.02 AUTO IMPLANTABLE CARDIAC DEFIBRILLATOR I 05/07/2011 Ot V45.81 AORTOCORONARY BYPASS 07/30/2011 CHIQUITA ROGERS DO 272.4 DYSLIPIDEMIA 07/30/2011 CHIQUITA ROGERS DO 414.00 CORONARY ATHEROSCLEROSIS OF UNSPECIFIED TYPE OF VESSEL [place] OR GRAFT 07/30/2011 CHIQUITA ROGERS DO V45.81 POSTSURGICAL AORTOCORONARY BYPASS STATUS 07/30/2011 WOOD CALDERON APRN S 272.4 DYSLIPIDEMIA 07/30/2011 WOOD CALDERON APRN S 414.00 CORONARY ATHEROSCLEROSIS OF UNSPECIFIED TYPE OF VESSEL [place] OR GRAFT 07/30/2011 WOOD CALDERON APRN S V45.81 POSTSURGICAL AORTOCORONARY BYPASS STATUS 07/30/2011 ERNESTO NINO PHD 272.4 DYSLIPIDEMIA 07/30/2011 TRUNG JADE, ERNESTO Chatman 414.00 CORONARY ATHEROSCLEROSIS OF UNSPECIFIED TYPE OF VESSEL [place] OR GRAFT 07/30/2011 ERNESTO NINO PHD V45.81 Postsurgical Aortocoronary Bypass Status 07/30/2011 BOONE IRAHETA DO K 272.4 DYSLIPIDEMIA 07/30/2011 BOONE IRAHETA DO K 414.00 CORONARY ATHEROSCLEROSIS OF UNSPECIFIED TYPE OF VESSEL [place] OR GRAFT 07/30/2011 BOONE IRAHETA DO K V45.81 Postsurgical Aortocoronary Bypass Status 07/30/2011 BOONE IRAHETA DO K 272.4 DYSLIPIDEMIA 07/30/2011 BOONE IRAHETA DO K 414.00 CORONARY ATHEROSCLEROSIS OF UNSPECIFIED TYPE OF VESSEL [place] OR GRAFT 07/30/2011 IRAHETA DO, BOONE K V45.81 Postsurgical Aortocoronary Bypass Status 07/30/2011 MYRTLE SPICER BOONE K 272.4 DYSLIPIDEMIA 07/30/2011 MYRTLE MARBIN SPICERA K 414.00 CORONARY ATHEROSCLEROSIS OF UNSPECIFIED TYPE OF VESSEL [place] OR GRAFT 07/30/2011 MYRTLE SPICER BOONE K V45.81 Postsurgical Aortocoronary Bypass Status 07/30/2011 272.4 DYSLIPIDEMIA 07/30/2011 414.00 CORONARY ATHEROSCLEROSIS OF UNSPECIFIED TYPE OF VESSEL [place] OR GRAFT 07/30/2011 V45.81 Postsurgical Aortocoronary Bypass Status 07/30/2011 272.4 DYSLIPIDEMIA 07/30/2011 414.00 CORONARY ATHEROSCLEROSIS OF UNSPECIFIED TYPE OF VESSEL [place] OR GRAFT 07/30/2011 V45.81 Postsurgical Aortocoronary Bypass Status 07/30/2011 272.4 DYSLIPIDEMIA 07/30/2011 414.00 CORONARY ATHEROSCLEROSIS OF UNSPECIFIED TYPE OF VESSEL [place] OR GRAFT 07/30/2011 V45.81 Postsurgical Aortocoronary Bypass Status 07/30/2011 272.4 DYSLIPIDEMIA 07/30/2011 414.00 CORONARY ATHEROSCLEROSIS OF UNSPECIFIED TYPE OF VESSEL [place] OR GRAFT 07/30/2011 V45.81 Postsurgical Aortocoronary Bypass Status 07/30/2011 MYRTLE SPICER BOONE K 272.4 DYSLIPIDEMIA 07/30/2011 IRAHETA MARBIN SPICERA K 414.00 CORONARY ATHEROSCLEROSIS OF UNSPECIFIED TYPE OF VESSEL [place] OR GRAFT 07/30/2011 IRAHETA MARBIN SPICERA K V45.81 Postsurgical Aortocoronary Bypass Status 07/30/2011 WOOD CALDERON APRN S 414.00 CORONARY ARTERY DISEASE 07/30/2011 WOOD CALDERON APRN S V45.81 Postsurgical Aortocoronary Bypass Status 07/30/2011 IRAHETA MARBIN SPICERA K 414.00 CORONARY ARTERY DISEASE 07/30/2011 MARBIN IRAHETA DOA K V45.81 Postsurgical Aortocoronary Bypass Status 07/30/2011 MIGUEL LEW APRN L 414.00 CORONARY [place]ERY DISEASE 07/30/2011 MIGUEL LEW APRN L V45.81 Postsurgical Aortocoronary Bypass Status 07/30/2011 CARLITA WAITE MD 414.00 CORONARY ARTERY DISEASE 07/30/2011 CARLITA WAITE MD V45.81 Postsurgical Aortocoronary Bypass Status 07/30/2011 [employer] SUPERVISOR, DAYANA R 414.00 CORONARY ARTERY DISEASE 07/30/2011 ESTRADA [employer] SUPERVISOR, DAYANA R V45.81 Postsurgical Aortocoronary Bypass Status 07/30/2011 ESTEE HAIRSTONN, KATHY R 414.00 CORONARY ARTERY DISEASE 07/30/2011 ESTEE HAIRSTONN, KATHY R V45.81 Postsurgical Aortocoronary Bypass Status 09/30/2011 CHIQUITA ROGERS DO F 300.00 AN ANXIETY UNSPEC 09/30/2011 CHIQUITA ROGERS DO F 300.4 MO DYSTHYMIC DISORDER 09/30/2011 WOOD CALDERON APRN S 300.00 AN ANXIETY UNSPEC 09/30/2011 WOOD CALDERON APRN S 300.4 MO DYSTHYMIC DISORDER 09/30/2011 ERNESTO NINO PHD 300.00 AN ANXIETY UNSPEC 09/30/2011 TRUNG JADE, ERNESTO Chatman 300.4 MO DYSTHYMIC DISORDER 09/30/2011 BOONE IRAHETA DO 300.00 AN ANXIETY UNSPEC 09/30/2011 BOONE IRAHE[place] DO K 300.4 MO DYSTHYMIC DISORDER 09/30/2011 BOONE IRAHETA DO K 300.00 AN ANXIETY UNSPEC 09/30/2011 BOONE IRAHETA DO K 300.4 MO DYSTHYMIC DISORDER 09/30/2011 BOONE IRAHETA DO K 300.00 AN ANXIETY UNSPEC 09/30/2011 BOONE IRAHETA DO K 300.4 MO DYSTHYMIC DISORDER 09/30/2011 300.00 AN ANXIETY UNSPEC 09/30/2011 300.4 MO DYSTHYMIC DISORDER 09/30/2011 300.00 AN ANXIETY UNSPEC 09/30/2011 300.4 MO DYSTHYMIC DISORDER 09/30/2011 300.00 AN ANXIETY UNSPEC 09/30/2011 300.4 MO DYSTHYMIC DISORDER 09/30/2011 300.00 AN ANXIETY UNSPEC 09/30/2011 300.4 MO DYSTHYMIC DISORDER 09/30/2011 BOONE IRAHETA DO K 300.00 AN ANXIETY UNSPEC 09/30/2011 BOONE IRAHETA DO K 300.4 MO DYSTHYMIC DISORDER 10/30/2011 CHIQUITA ROGERS DO F 465.9 ACUTE UPPER RESPIRATORY INFECTIONS OF UNSPECIFIED SITE 10/30/2011 WOOD CALDERON APRN 465.9 ACUTE UPPER RESPIRATORY INFECTIONS OF UNSPECIFIED SITE 10/30/2011 ERNESTO NINO PHD 465.9 Acute Upper Respiratory Infections Of Unspecified Site 10/30/2011 IRAHETA DO BOONE K 465.9 Acute Upper Respiratory Infections Of Unspecified Site 10/30/2011 IRAHE[place] DO BOONE K 465.9 Acute Upper Respiratory Infections Of Unspecified Site 10/30/2011 IRAHETA DO BOONE K 465.9 Acute Upper Respiratory Infections Of Unspecified Site 10/30/2011 465.9 Acute Upper Respiratory Infections Of Unspecified Site 10/30/2011 465.9 Acute Upper Respiratory Infections Of Unspecified Site 10/30/2011 465.9 Acute Upper Respiratory Infections Of Unspecified Site 10/30/2011 465.9 Acute Upper Respiratory Infections Of Unspecified Site 10/30/2011 IRAHE[place] DO BOONE K 465.9 Acute Upper Respiratory Infections Of Unspecified Site 10/30/2011 WOOD CALDERON APRN S 465.9 Acute Upper Respiratory Infections Of Unspecified Site 10/30/2011 IRAHE[place] DO BOONE K 465.9 Acute Upper Respiratory Infections Of Unspecified Site 10/30/2011 MIGUEL LEW APRN 465.9 Acute Upper Respiratory Infections Of Unspecified Site 10/30/2011 CARLITA WAITE MD 465.9 Acute Upper Respiratory Infections Of Unspecified Site 10/30/2011 DAYANA ESTRADA APRN R 465.9 Acute Upper Respiratory Infections Of Unspecified Site 10/30/2011 KATHY FONTANEZ APRN R 465.9 Acute Upper Respiratory Infections Of Unspecified Site 01/15/2012 Ot 780.50 SLEEP DISTURBANCE NOS 02/18/2012 WOOD CALDERON APRN S 428.0 CONGESTIVE HEART FAILURE UNSPECIFIED 02/18/2012 ERNESTO NINO PHD 428.0 Congestive Heart Failure Unspecified 02/18/2012 MARBIN IRAHETA DOA K 428.0 Congestive Heart Failure Unspecified 02/18/2012 MARBIN IRAHETA DOA K 428.0 Congestive Heart Failure Unspecified 02/18/2012 MYRTLE SPICER BOONE K 428.0 Congestive Heart Failure Unspecified 02/18/2012 428.0 Congestive Heart Failure Unspecified 02/18/2012 428.0 Congestive Heart Failure Unspecified 02/18/2012 428.0 Congestive Heart Failure Unspecified 02/18/2012 428.0 Congestive Heart Failure Unspecified 02/18/2012 MARBIN IRAHETA DOA K 428.0 Congestive Heart Failure Unspecified 02/18/2012 WOOD CALDERON APRN 428.0 Congestive Heart Failure Unspecified 02/18/2012 IRAHETA DO, BOONE K 428.0 Congestive Heart Failure Unspecified 02/18/2012 LOUANN MORRIS, MIGUEL L 428.0 Congestive Heart Failure Unspecified 02/18/2012 RAVINDRA GLASER, CARLITA 428.0 Congestive Heart Failure Unspecified 02/18/2012 [employer] SUPERVISOR, DAYANA R 428.0 Congestive Heart Failure Unspecified 02/18/2012 [employer] SUPER[employer]OR, KATHY R 428.0 Congestive Heart Failure Unspecified 04/27/2012 IRAHETA DO, BOONE K 455.6 HEMORRHOIDS NOS 04/27/2012 IRAHETA DO, BOONE K 578.1 BLOOD IN STOOL 04/27/2012 IRAHETA DO, BOONE K 787.91 DIARRHEA 04/27/2012 IRAHETA DO, BOONE K 455.6 HEMORRHOIDS NOS 04/27/2012 IRAHETA DO, BOONE K 578.1 BLOOD IN STOOL 04/27/2012 IRAHETA DO, BOONE K 787.91 DIARRHEA 04/27/2012 IRAHETA DO, BOONE K 455.6 HEMORRHOIDS NOS 04/27/2012 IRAHETA DO, BOONE K 578.1 BLOOD IN STOOL 04/27/2012 IRAHETA DO, BOONE K 787.91 DIARRHEA 04/27/2012 455.6 HEMORRHOIDS NOS 04/27/2012 578.1 BLOOD IN STOOL 04/27/2012 787.91 DIARRHEA 04/27/2012 455.6 HEMORRHOIDS NOS 04/27/2012 578.1 BLOOD IN STOOL 04/27/2012 787.91 DIARRHEA 04/27/2012 455.6 HEMORRHOIDS NOS 04/27/2012 578.1 BLOOD IN STOOL 04/27/2012 787.91 DIARRHEA 04/27/2012 455.6 HEMORRHOIDS NOS 04/27/2012 578.1 BLOOD IN STOOL 04/27/2012 787.91 DIARRHEA 04/27/2012 IRAHETA DO, BOONE K 455.6 HEMORRHOIDS NOS 04/27/2012 IRAHETA DO, BOONE K 578.1 BLOOD IN STOOL 04/27/2012 IRAHETA DO, BOONE K 787.91 DIARRHEA 05/24/2012 IRAHETA DO, BOONE K 625.9 PELVIC PAIN 05/24/2012 IRAHETA DO, BOONE K V65.49 OTHER SPECIFIED COUNSELING 05/24/2012 IRAHETA DO, BOONE K V76.10 BREAST CANCER SCREENING 05/24/2012 625.9 PELVIC PAIN 05/24/2012 V65.49 OTHER SPECIFIED COUNSELING 05/24/2012 V76.10 BREAST CANCER SCREENING 05/24/2012 625.9 PELVIC PAIN 05/24/2012 V65.49 OTHER SPECIFIED COUNSELING 05/24/2012 V76.10 BREAST CANCER SCREENING 05/24/2012 625.9 PELVIC PAIN 05/24/2012 V65.49 OTHER SPECIFIED COUNSELING 05/24/2012 V76.10 BREAST CANCER SCREENING 05/24/2012 625.9 PELVIC PAIN 05/24/2012 V65.49 OTHER SPECIFIED COUNSELING 05/24/2012 V76.10 BREAST CANCER SCREENING 05/24/2012 MYRTLE BOONE SPICER 625.9 PELVIC PAIN 05/24/2012 BOONE IRAHETA DO V65.49 OTHER SPECIFIED COUNSELING 05/24/2012 BOONE IRAHETA DO V76.10 BREAST CANCER SCREENING 08/16/2012 796.2 ELEVATED BLOOD PRESSURE READING WITHOUT DIAGNOSIS OF HYPERTENSION 08/16/2012 796.2 ELEVATED BLOOD PRESSURE READING WITHOUT DIAGNOSIS OF HYPERTENSION 08/16/2012 796.2 ELEVATED BLOOD PRESSURE READING WITHOUT DIAGNOSIS OF HYPERTENSION 08/16/2012 BOONE IRAHETA DO 796.2 ELEVATED BLOOD PRESSURE READING WITHOUT DIAGNOSIS OF HYPERTENSION 08/17/2012 CARLITA WAITE MD Ot 250.00 DIAB MIKA WO COMPL, TYPE II OR UNSPEC TY 08/17/2012 CARLITA WAITE MD Ot 272.4 HYPERLIPIDEMIA NEC/NOS 08/17/2012 CARLITA WAITE MD Ot 275.2 DIS MAGNESIUM METABOLISM 08/17/2012 CARLITA WAITE MD Ot 311 DEPRESSIVE DISORDER NEC 08/17/2012 CARLITA WAITE MD Ot 401.9 HYPERTENSION NOS 08/17/2012 CARLITA WAITE MD Ot 414.00 CORON ATHEROSCLER NOS TYPE VESSEL, NATIV 08/17/2012 CARLITA WAITE MD Ot 428.0 CONGESTIVE HEART FAILURE NOS 08/17/2012 CARLITA WAITE MD Ot 593.9 RENAL URETERAL DIS NOS 08/17/2012 CARLITA WAITE MD Ot 780.2 SYNCOPE AND COLLAPSE 08/17/2012 CARLITA WAITE MD Ot 786.50 CHEST PAIN NOS 08/17/2012 CARLITA WAITE MD Ot V45.01 CARDIAC PACEMAKER IN SITU 08/17/2012 CARLITA WAITE MD Ot V45.02 AUTO IMPLANTABLE CARDIAC DEFIBRILLATOR I 08/17/2012 CARLITA WAITE MD Ot V45.81 AORTOCORONARY BYPASS 09/24/2012 MAKENNA ODEN MD Ot 250.00 DIAB MIKA WO COMPL, TYPE II OR UNSPEC TY 09/24/2012 MAKENNA ODEN MD Ot 272.0 PURE HYPERCHOLESTEROLEM 09/24/2012 MAKENNA ODEN MD Ot 311 DEPRESSIVE DISORDER NEC 09/24/2012 MAKENNA ODEN MD Ot 401.9 HYPERTENSION NOS 09/24/2012 MAKENNA ODEN MD Ot 414.00 CORON ATHEROSCLER NOS TYPE VESSEL, NATIV 09/24/2012 MAKENNA ODEN MD Ot 458.1 CHRONIC HYPOTENSION 09/24/2012 MAKENNA ODEN MD Ot 716.90 ARTHROPATHY NOS-UNSPEC 09/24/2012 MAKENNA ODEN MD Ot 724.2 LUMBAGO 09/24/2012 MAKENNA ODEN MD Ot 724.5 BACKACHE NOS 09/24/2012 MAKENNA ODEN MD Ot V15.88 HISTORY OF FALL 09/24/2012 MAKENNA ODEN MD Ot V45.01 CARDIAC PACEMAKER IN SITU 10/13/2012 425.4 CARDIOMYOPHATHY 10/13/2012 BOONE IRAHETA DO 425.4 CARDIOMYOPHATHY 06/25/2013 BOONE IRAHETA DO 461.9 SINUSITIS ACUTE 06/25/2013 MIGUEL LEW APRN L 461.9 SINUSITIS ACUTE 06/25/2013 CARLITA WAITE MD 461.9 SINUSITIS ACUTE 06/25/2013 DAYANA ESTRADA APRN R 461.9 SINUSITIS ACUTE 06/25/2013 ELOY FONTANEZ APRNINA R 461.9 SINUSITIS ACUTE 08/25/2013 MIUGEL LEW APRN L 724.3 SCIATICA 08/25/2013 CARLITA WAITE MD 724.3 SCIATICA 08/25/2013 DAYANA ESTRADA APRN R 724.3 SCIATICA 08/25/2013 KATHY FONTANEZ APRN R 724.3 SCIATICA 09/06/2013 CARLITA WAITE MD Ot 250.02 DIAB [place] WO COMPL, TYPE II OR UNSPEC TY 09/06/2013 CARLITA WAITE MD Ot 272.4 HYPERLIPIDEMIA NEC/NOS 09/06/2013 CARLITA WAITE MD Ot 275.2 DIS MAGNESIUM METABOLISM 09/06/2013 CARLITA WAITE MD Ot 276.1 HYPOSMOLALITY 09/06/2013 CARLITA WAITE MD Ot 276.7 HYPERPOTASSEMIA 09/06/2013 CARLITA WAITE MD Ot 288.60 LEUKOCYTOSIS, UNSPECIFIED 09/06/2013 CARLITA WAITE MD Ot 295.90 SCHIZOPHRENIA NOS-UNSPEC 09/06/2013 CARLITA WAITE MD Ot 296.80 BIPOLAR DISORDER, UNSPECIFIED 09/06/2013 CARLITA WAITE MD Ot 403.90 HYPTNSV CHR KID DIS, UNSPEC, W CHR KD ST 09/06/2013 CARLITA WAITE MD Ot 414.01 CORONARY ATHEROSCLEROSIS OF [place] CORON 09/06/2013 CARLITA WAITE MD Ot 414.8 CHR ISCHEMIC HRT DIS NEC 09/06/2013 CARLITA WAITE MD Ot 428.0 CONGESTIVE HEART FAILURE NOS 09/06/2013 CARLITA WAITE MD Ot 458.0 ORTHOSTATIC HYPOTENSION 09/06/2013 CARLITA WAITE MD Ot 585.9 CHRONIC KIDNEY DISEASE, UNSPECIFIED 09/06/2013 CARLITA WAITE MD Ot 593.9 RENAL URETERAL DIS NOS 09/06/2013 CARLITA WAITE MD Ot V12.54 PERSONAL HX OF TIA, CEREBRAL INFARCTION 09/06/2013 CARLITA WAITE MD Ot V15.81 HX OF PAST NONCOMPLIANCE 09/06/2013 CARLITA WAITE MD Ot V58.67 LONG-TERM (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 03/16/2014 KATHY FONTANEZ APRN R 462 ACUTE PHARYNGITIS 03/16/2014 KATHY FONTANEZ APRN 786.2 COUGH 05/14/2014 Ot 250.00 DIAB [place] WO COMPL, TYPE II OR UNSPEC TY 05/14/2014 Ot 786.50 CHEST PAIN NOS 05/14/2014 Ot V58.67 LONG-TERM ( 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 05/14/2014 Ot V58.69 OTH MED,LT, CURRENT USE 06/20/2015 Ot 414.01 06/20/2015 Ot V58.69 06/20/2015 Ot 275.2 06/20/2015 Ot 428.0 06/20/2015 Ot V58.69 06/20/2015 Ot 414.01 06/20/2015 Ot 428.0 06/20/2015 Ot 276.7 06/20/2015 Ot 428.0 06/20/2015 Ot 790.4 06/20/2015 Ot 794.4 06/20/2015 Ot 272.4 06/20/2015 Ot 414.00 06/20/2015 Ot 272.0 06/20/2015 Ot 593.9 06/20/2015 Ot 276.7 06/20/2015 Ot 276.7 06/20/2015 Ot 414.01 06/20/2015 Ot 427.9 06/20/2015 AVANI GLASER FACC, ALI FACP CCDS Ot 250.00 06/20/2015 AVANI GLASER FACC, ALI FACP CCDS Ot 272.4 06/20/2015 AVANI GLASER FACWilder, ALI FACP CCDS Ot 414.00 06/20/2015 AVANI GLASER FACC, ALI FACP CCDS Ot 447.9 06/20/2015 AVANI GLASER FACWilder, ALI FACP CCDS Ot 585.9 06/20/2015 SORAYA MARTINS Ot E11.65 TYPE 2 DIABETES MELLITUS WITH HYPERGLYCE 06/20/2015 SORAYA MARTINS Ot Z79.4 FDC (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 06/20/2015 SORAYA MARTINS Ot Z95.0 PRESENCE OF CARDIAC PACEMAKER 06/20/2015 SORAYA MARTINS Ot Z95.1 PRESENCE OF AORTOCORONARY BYPASS GRAFT 06/20/2015 BAIMA, BARRY L RENAL CASE MANAGER Ot E78.5 06/20/2015 BAIMA, BARRY L RENAL CASE MANAGER Ot I10 06/20/2015 BAIMA, BARRY L RENAL CASE MANAGER Ot I25.10 06/20/2015 BAIMA, BARRY L RENAL CASE MANAGER Ot Z95.0 06/21/2015 BAIMA, BARRY L RENAL CASE MANAGER Ot E78.5 06/21/2015 BAIMA, BARRY L RENAL CASE MANAGER Ot I10 06/21/2015 BAIMA, BARRY L RENAL CASE MANAGER Ot I25.10 06/21/2015 BAIMA, BARRY L RENAL CASE MANAGER Ot Z95.0 06/21/2015 SORAYA MARTINS Ot E11.65 06/21/2015 SORAYA MARTINS Ot Z79.4 06/21/2015 SORAYA MARTINS Ot Z95.0 06/21/2015 SORAYA MARTINS Ot Z95.1 06/22/2015 EVBARRY WHITTINGTON L RENAL CASE MANAGER Ot E78.5 HYPERLIPIDEMIA, UNSPECIFIED 06/22/2015 BAIMA, BARRY L RENAL CASE MANAGER Ot I10 ESSENTIAL (PRIMARY) HYPERTENSION 06/22/2015 BAIMA, BARRY L RENAL CASE MANAGER Ot I25.10 ATHSCL HEART DISEASE OF [place] CORONARY 06/22/2015 BAIMA, BARRY L RENAL CASE MANAGER Ot Z95.0 PRESENCE OF CARDIAC PACEMAKER 06/22/2015 BAIMA, BARRY L RENAL CASE MANAGER Ot E78.5 HYPERLIPIDEMIA, UNSPECIFIED 06/22/2015 BAIMA, BARRY L RENAL CASE MANAGER Ot I10 ESSENTIAL (PRIMARY) HYPERTENSION 06/22/2015 BAIMA, BARRY L RENAL CASE MANAGER Ot I25.10 ATHSCL HEART DISEASE OF [place] CORONARY 06/22/2015 BAIMA, BARRY L RENAL CASE MANAGER Ot Z95.0 PRESENCE OF CARDIAC PACEMAKER 11/26/2015 OTILIA DO ANDREW K Ot R11.0 NAUSEA 11/26/2015 OTILIA SPICER ANDREW K Ot 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 11/28/2015 OTILIA SPICER ANDREW K Ot R11.0 NAUSEA 11/28/2015 OTILIAMirela SPICER ANDREW K Ot 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 09/25/2016 Ot 414.01 CORONARY ATHEROSCLEROSIS OF [place] CORON 09/25/2016 Ot 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 09/25/2016 AVANI GLASER FACC, ALI FACP CCDS Ot 250.00 DIAB MIKA WO COMPL, TYPE II OR UNSPEC TY 09/25/2016 AVANI GLASER FACC, ALI FACP CCDS Ot 272.4 HYPERLIPIDEMIA NEC/NOS 09/25/2016 AVANI GLASER FACC, ALI FACP CCDS Ot 414.00 CORON ATHEROSCLER NOS TYPE VESSEL, NATIV 09/25/2016 AVANI GLASER FACC, ALI FACP CCDS Ot 447.9 ARTERIAL DISEASE NOS 09/25/2016 AVANI GLASER FACC, ALI FACP CCDS Ot 585.9 CHRONIC KIDNEY DISEASE, UNSPECIFIED 09/25/2016 BARRY REYES L RENAL CASE MANAGER Ot E78.5 HYPERLIPIDEMIA, UNSPECIFIED 09/25/2016 EVNELSY BARRY L RENAL CASE MANAGER Ot I10 ESSENTIAL (PRIMARY) HYPERTENSION 09/25/2016 EVBARRY WHITTINGTON L RENAL CASE MANAGER Ot I25.10 ATHSCL HEART DISEASE OF [place] CORONARY 09/25/2016 ERIC BARRY L RENAL CASE MANAGER Ot Z95.0 PRESENCE OF CARDIAC PACEMAKER 09/25/2016 Ot 414.01 CORONARY ATHEROSCLEROSIS OF [place] CORON 09/25/2016 Ot 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 09/26/2016 Ot 414.01 CORONARY ATHEROSCLEROSIS OF [place] CORON 09/26/2016 Ot 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 09/26/2016 AVANI GLASER FACC, ALI FACP CCDS Ot 250.00 DIAB MIKA WO COMPL, TYPE II OR UNSPEC TY 09/26/2016 AVANI GLASER FACC, ALI FACP CCDS Ot 272.4 HYPERLIPIDEMIA NEC/NOS 09/26/2016 AVANI GLASER FACC, ALI FACP CCDS Ot 414.00 CORON ATHEROSCLER NOS TYPE VESSEL, NATIV 09/26/2016 AVANI GLASER FACC, ALI FACP CCDS Ot 447.9 ARTERIAL DISEASE NOS 09/26/2016 AVANI GLASER FACC, ALI FACP CCDS Ot 585.9 CHRONIC KIDNEY DISEASE, UNSPECIFIED 09/26/2016 EVBARRY WHITTINGTON RENAL CASE MANAGER Ot E78.5 HYPERLIPIDEMIA, UNSPECIFIED 09/26/2016 EVBARRY WHITTINGTON L RENAL CASE MANAGER Ot I10 ESSENTIAL (PRIMARY) HYPERTENSION 09/26/2016 EVNELSY BARRY L RENAL CASE MANAGER Ot I25.10 ATHSCL HEART DISEASE OF [place] CORONARY 09/26/2016 BARRY REYES RENAL CASE MANAGER Ot Z95.0 PRESENCE OF CARDIAC PACEMAKER 09/26/2016 CINDY THOMPSON MD Ot E11.9 TYPE 2 DIABETES MELLITUS WITHOUT COMPLIC 09/26/2016 CINDY THOMPSON MD Ot F20.9 SCHIZOPHRENIA, UNSPECIFIED 09/26/2016 CINDY THOMPSON MD Ot Z79.4 FDC (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 09/26/2016 CINDY THOMPSON MD Ot Z79.82 DUMP ATTENDANT (CURRENT) USE OF ASPIRIN 09/26/2016 CINDY THOMPSON MD Ot Z79.899 OTHER DUMP ATTENDANT (CURRENT) DRUG THERAPY 09/26/2016 CINDY THOMPSON MD Ot Z95.0 PRESENCE OF CARDIAC PACEMAKER 09/26/2016 CINDY THOMPSON MD Ot Z95.1 PRESENCE OF AORTOCORONARY BYPASS GRAFT 09/26/2016 CINDY THOMPSON MD Ot E11.9 TYPE 2 DIABETES MELLITUS WITHOUT COMPLIC 09/26/2016 CINDY THOMPSON MD Ot F20.9 SCHIZOPHRENIA, UNSPECIFIED 09/26/2016 CINDY THOMPSON MD, Ot Z79.4 DUMP ATTENDANT (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 09/26/2016 CINDY THOMPSON MD Ot Z79.82 FDC (CURRENT) USE OF ASPIRIN 09/26/2016 CINDY THOMPSON MD Ot Z79.899 OTHER DUMP ATTENDANT (CURRENT) DRUG THERAPY 09/26/2016 CINDY THOMPSON MD, Ot Z95.0 PRESENCE OF CARDIAC PACEMAKER 09/26/2016 CINDY THOMPSON MD Ot Z95.1 PRESENCE OF AORTOCORONARY BYPASS GRAFT 10/02/2016 Ot 414.01 CORONARY ATHEROSCLEROSIS OF [place] CORON 10/02/2016 Ot 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 10/02/2016 AVANI GLASER FACC, ALI FACP CCDS Ot 250.00 DIAB [place] WO COMPL, TYPE II OR UNSPEC TY 10/02/2016 AVANI GLASER FACC, ALI FACP CCDS Ot 272.4 HYPERLIPIDEMIA NEC/NOS 10/02/2016 AVANI GLASER FACC, ALI FACP CCDS Ot 414.00 CORON ATHEROSCLER NOS TYPE VESSEL, NATIV 10/02/2016 AVANI GLASER FACC, ALI FACP CCDS Ot 447.9 ARTERIAL DISEASE NOS 10/02/2016 AVANI GLASER FACC, ALI FACP CCDS Ot 585.9 CHRONIC KIDNEY DISEASE, UNSPECIFIED 10/02/2016 BARRY REYES RENAL CASE MANAGER Ot E78.5 HYPERLIPIDEMIA, UNSPECIFIED 10/02/2016 BARRY REYES RENAL CASE MANAGER Ot I10 ESSENTIAL (PRIMARY) HYPERTENSION 10/02/2016 BARRY REYES RENAL CASE MANAGER Ot I25.10 ATHSCL HEART DISEASE OF [place] CORONARY 10/02/2016 BARRY REYES RENAL CASE MANAGER Ot Z95.0 PRESENCE OF CARDIAC PACEMAKER 10/21/2016 CINDY THOMPSON MD Ot E05.90 THYROTOXICOSIS, UNSP WITHOUT THYROTOXIC 10/21/2016 CINDY THOMPSON MD Ot E11.9 TYPE 2 DIABETES MELLITUS WITHOUT COMPLIC 10/21/2016 GAULT MD, CINDY R Ot E78.5 HYPERLIPIDEMIA, UNSPECIFIED 10/21/2016 CINDY THOMPSON MD Ot E87.1 HYPO-OSMOLALITY AND HYPONATREMIA 10/21/2016 CINDY THOMPSON MD Ot F23 BRIEF PSYCHOTIC DISORDER 10/21/2016 CINDY THOMPSON MD, Ot I10 ESSENTIAL (PRIMARY) HYPERTENSION 10/21/2016 CINDY THOMPSON MD Ot I25.10 ATHSCL HEART DISEASE OF [place] CORONARY 10/21/2016 CINDY THOMPSON MD Ot 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 10/21/2016 CINDY THOMPSON MD, Ot N39.0 URINARY TRACT INFECTION, SITE NOT SPECIF 10/21/2016 CINDY THOMPSON MD, Ot R94.31 ABNORMAL ELECTROCARDIOGRAM [ECG] [EKG] 10/21/2016 CINDY THOMPSON MD, Ot Z79.4 FDC (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 10/21/2016 CINDY THOMPSON MD, Ot Z95.1 PRESENCE OF AORTOCORONARY BYPASS GRAFT 10/21/2016 CINDY THOMPSON MD, Ot Z95.810 PRESENCE OF AUTOMATIC (IMPLANTABLE) CARD 11/24/2016 BARRY REYES RENAL CASE MANAGER Ot I25.10 ATHSCL HEART DISEASE OF [place] CORONARY 11/25/2016 AVANI GLASER FACC, ALI FACP CCDS Ot 250.00 DIAB MIKA WO COMPL, TYPE II OR UNSPEC TY 11/25/2016 AVANI GLASER FACC, ALI FACP CCDS Ot 272.4 HYPERLIPIDEMIA NEC/NOS 11/25/2016 AVANI GLASER FACC, ALI FACP CCDS Ot 414.00 CORON ATHEROSCLER NOS TYPE VESSEL, NATIV 11/25/2016 AVANI GLASER FACC, ALI FACP CCDS Ot 447.9 ARTERIAL DISEASE NOS 11/25/2016 AVANI GLASER FACC, ALI FACP CCDS Ot 585.9 CHRONIC KIDNEY DISEASE, UNSPECIFIED 11/25/2016 BARRY REYES RENAL CASE MANAGER Ot E78.5 HYPERLIPIDEMIA, UNSPECIFIED 11/25/2016 BARRY REYES L RENAL CASE MANAGER Ot I10 ESSENTIAL (PRIMARY) HYPERTENSION 11/25/2016 BARRY REYES L RENAL CASE MANAGER Ot I25.10 ATHSCL HEART DISEASE OF [place] CORONARY 11/25/2016 BARRY REYES L RENAL CASE MANAGER Ot Z95.0 PRESENCE OF CARDIAC PACEMAKER 11/25/2016 BARRY REYES L RENAL CASE MANAGER Ot I25.10 ATHSCL HEART DISEASE OF [place] CORONARY 01/06/2017 BAIBARRY WHITTINGTON L RENAL CASE MANAGER Ot E78.4 OTHER HYPERLIPIDEMIA 01/06/2017 BAIBARRY WHITTINGTON L RENAL CASE MANAGER Ot I25.10 ATHSCL HEART DISEASE OF [place] CORONARY 01/06/2017 BAIBARRY WHITTINGTON L RENAL CASE MANAGER Ot I65.23 OCCLUSION AND STENOSIS OF [place]ATER[place] 01/06/2017 BAIBARRY WHITTINGTON L RENAL CASE MANAGER Ot R26.89 OTHER ABNORMALITIES OF GAIT AND MOBILITY 01/06/2017 BAIDUSTIN WHITTINGTONHER L RENAL CASE MANAGER Ot Z95.0 PRESENCE OF CARDIAC PACEMAKER 02/04/2017 BAIDUSTIN WHITTINGTONHER L RENAL CASE MANAGER Ot I25.10 ATHSCL HEART DISEASE OF [place] CORONARY 02/04/2017 BAIBARRY WHITTINGTON L RENAL CASE MANAGER Ot I65.23 OCCLUSION AND STENOSIS OF [place] 02/04/2017 BAIBARRY WHITTINGTON L RENAL CASE MANAGER Ot R06.09 OTHER FORMS OF DYSPNEA 02/12/2017 BAIBARRY WHITTINGTON L RENAL CASE MANAGER Ot I25.10 ATHSCL HEART DISEASE OF [place] CORONARY 02/12/2017 BAIDUSTNI WHITTINGTONHER L RENAL CASE MANAGER Ot I65.23 OCCLUSION AND STENOSIS OF [place] 02/12/2017 BAIBARRY WHITTINGTON L RENAL CASE MANAGER Ot R06.09 OTHER FORMS OF DYSPNEA Procedures Code Description Performed By Performed On [facility] 02/12/2012 02012 ROUTINE VENIPUNCTURE 02/18/2012 71248 MICRO ALBUMIN-IN HOUSE 02/18/2012 89818 ROUTINE VENIPUNCTURE 02/18/2012 37764 CMP 02/18/2012 46591 LIPID PANEL 02/18/2012 2741741 GFR CALC (RESULT ONLY) 02/18/2012 41951 DIGOXIN 02/19/2012 03649 CBC 02/19/2012 74098 A1C (RML) 02/20/2012 90079 INDIV PSYTX 45/50 MIN 02/25/2012 15235 ROUTINE VENIPUNCTURE 04/27/2012 90962 CBC 04/27/2012 15739 CMP 04/27/2012 1897693 GFR CALC (RESULT ONLY) 04/27/2012 Mikal Duncan 04/27/2012 60304 PSYTX PT&/FAMILY 45 MINUTES 04/28/2012 72814 A1C (IN-HOUSE) 05/19/2012 34717 HEMOCCULT 05/24/2012 97723 UA W/ CULTURE IF INDICATED 05/24/2012 35862 MAMMOGRAM, SCREENING 05/25/2012 91301 ROUTINE VENIPUNCTURE 06/23/2012 92362 CBC 06/23/2012 50962 CMP 06/23/2012 88752 LIPID PANEL 06/23/2012 2336518 GFR CALC (RESULT ONLY) 06/23/2012 59343 DIGOXIN 06/24/2012 96723 BNP 06/25/2012 50550 INDIV PSYTX 45/50 MIN 09/08/2012 Cardiolog Shaquille Jo 10/13/2012 65980 ROUTINE VENIPUNCTURE 10/13/2012 10751 CMP 10/13/2012 16678 LIPID PANEL 10/13/2012 69394 MAGNESIUM 10/13/2012 0278148 GFR CALC (RESULT ONLY) 10/13/2012 55547 DIGOXIN 10/13/2012 15581 ROUTINE VENIPUNCTURE 11/18/2012 22985 CMP 11/18/2012 61437 LIPID PANEL 11/18/2012 4891263 GFR CALC (RESULT ONLY) 11/18/2012 86619 DIGOXIN 11/18/2012 22345 ROUTINE VENIPUNCTURE 05/26/2013 73727 MICRO ALBUMIN-IN HOUSE 05/26/2013 60165 A1C (IN-HOUSE) 05/26/2013 43754 MICROALBUMIN 05/26/2013 4816927 GFR CALC (RESULT ONLY) 05/26/2013 02463 BMP 05/26/2013 32432 XRAY SI JOINTS LESS THAN 3 VIEWS 08/25/2013 42838 XRAY HIP RIGHT UNILATERAL MIN 2 VIEWS 08/25/2013 89.45 PACEMAKER RATE CHECK 09/05/2013 Results Test Result Range Complete blood count (CBC) with automated white blood cell (WBC) differential - 09/25/16 21:50 Blood leukocytes automated count (number/volume) 8.3 10*3/uL 4.3-11.0 Blood erythrocytes automated count (number/volume) 4.29 10*6/uL 4.35-5.85 Venous blood hemoglobin measurement (mass/volume) 12.4 g/dL 11.5-16.0 Blood hematocrit (volume fraction) 37 % 35-52 Automated erythrocyte mean corpuscular volume 86 [foz_us] 80-99 Automated erythrocyte mean corpuscular hemoglobin (mass per erythrocyte) 29 pg 25-34 Automated erythrocyte mean corpuscular hemoglobin concentration measurement ( mass/volume) 34 g/dL 32-36 Automated erythrocyte distribution width ratio 13.3 % 10.0-14.5 Automated blood platelet count (count/volume) 179 10*3/uL 130-400 Automated blood platelet mean volume measurement 9.6 [foz_us] 7.4-10.4 Automated blood neutrophils/100 leukocytes 71 % 42-75 Automated blood lymphocytes/100 leukocytes 19 % 12-44 Blood monocytes/100 leukocytes 8 % 0-12 Automated blood eosinophils/100 leukocytes 2 % 0-10 Automated blood basophils/100 leukocytes 1 % 0-10 Blood neutrophils automated count (number/volume) 5.9 10*3 1.8-7.8 Blood lymphocytes automated count (number/volume) 1.6 10*3 1.0-4.0 Blood monocytes automated count (number/volume) 0.6 10*3 0.0-1.0 Automated eosinophil count 0.2 10*3/uL 0.0-0.3 Automated blood basophil count (count/volume) 0.1 10*3/uL 0.0-0.1 Urine drug screening test - 09/25/16 21:50 Urine phencyclidine detection by screening method NEGATIVE NEGATIVE Urine benzodiazepines detection by screening method NEGATIVE NEGATIVE Urine cocaine detection NEGATIVE NEGATIVE Urine amphetamines detection by screening method NEGATIVE NEGATIVE Urine methamphetamine detection by screening method NEGATIVE NEGATIVE Urine cannabinoids detection by screening method NEGATIVE NEGATIVE Urine opiates detection by screening method NEGATIVE NEGATIVE Urine barbiturates detection NEGATIVE NEGATIVE Screening urine tricyclic antidepressants detection NEGATIVE NEGATIVE Urine methadone detection by screening method NEGATIVE NEGATIVE Urine oxycodone detection NEGATIVE NEGATIVE Urine propoxyphene detection NEGATIVE NEGATIVE Comprehensive metabolic panel - 09/25/16 21:50 Serum or plasma sodium measurement (moles/volume) 135 mmol/L 135-145 Serum or plasma potassium measurement (moles/volume) 4.6 mmol/L 3.6-5.0 Serum or plasma chloride measurement (moles/volume) 106 mmol/L 98-107 Carbon dioxide 16 mmol/L 21-32 Serum or plasma anion gap determination (moles/volume) 13 mmol/L 5-14 Serum or plasma urea nitrogen measurement (mass/volume) 29 mg/dL 7-18 Serum or plasma creatinine measurement (mass/volume) 1.23 mg/dL 0.60-1.30 Serum or plasma urea nitrogen/creatinine mass ratio 24 NRG Serum or plasma creatinine measurement with calculation of estimated glomerular filtration rate 44 NRG Serum or plasma glucose measurement (mass/volume) 247 mg/dL 70-105 Serum or plasma calcium measurement (mass/volume) 8.5 mg/dL 8.5-10.1 Serum or plasma total bilirubin measurement (mass/volume) 0.5 mg/dL 0.1-1.0 Serum or plasma alkaline phosphatase measurement (enzymatic activity/volume) 117 U/L 40-136 Serum or plasma aspartate aminotransferase measurement (enzymatic activity/ volume) 17 U/L 5-34 Serum or plasma alanine aminotransferase measurement (enzymatic activity/volume ) 25 U/L 0-55 Serum or plasma protein measurement (mass/volume) 7.3 g/dL 6.4-8.2 Serum or plasma albumin measurement (mass/volume) 3.9 g/dL 3.2-4.5 Complete urinalysis with reflex to culture - 09/25/16 21:50 Urine color determination YELLOW NRG Urine clarity determination CLEAR NRG Urine pH measurement by test strip 5 5-9 Specific gravity of urine by test strip 1.015 1.016- 1.022 Urine protein assay by test strip, semi-quantitative 1+ NEGATIVE Urine glucose detection by automated test strip 1+ NEGATIVE Erythrocytes detection in urine sediment by light microscopy NEGATIVE NEGATIVE Urine ketones detection by automated test strip NEGATIVE NEGATIVE Urine nitrite detection by test strip NEGATIVE NEGATIVE Urine total bilirubin detection by test strip NEGATIVE NEGATIVE Urine urobilinogen measurement by automated test strip (mass/volume) NORMAL NORMAL Urine leukocyte esterase detection by dipstick 3+ NEGATIVE Automated urine sediment erythrocyte count by microscopy (number/high power field) NONE NRG Automated urine sediment leukocyte count by microscopy (number/high power field ) [HPF] NRG Bacteria detection in urine sediment by light microscopy FEW NRG Squamous epithelial cells detection in urine sediment by light microscopy 2-5 NRG Crystals detection in urine sediment by light microscopy NONE NRG Casts detection in urine sediment by light microscopy NONE NRG Mucus detection in urine sediment by light microscopy NEGATIVE NRG Complete urinalysis with reflex to culture YES NRG THYROID STIMULATING HORMONE - 09/25/16 21:50 THYROID STIMULATING HORMONE 1.83 u[iU]/mL 0.35-4.94 Bacterial urine culture - 09/25/16 21:50 Bacterial urine culture [id number] NRG COLONY COUNT 10,000/ML - 100,000/ML NRG FTX;REPORTABLE SENSITIVITY REPORTED 7/23 10:40 NRG FREE TEXT ENTRY 3 MIXED GRAM POSITIVE [facility] Bacterial susceptibility panel - 09/25/16 21:50 Gentamicin susceptibility test by minimum inhibitory concentration < = NRG Trimethoprim/sulfamethoxazole susceptibility test by minimum inhibitoryconcentration <= NRG Ampicillin susceptibility test by minimum inhibitory concentration > = NRG Tobramycin susceptibility test by minimum inhibitory concentration < = NRG Cefazolin susceptibility test by minimum inhibitory concentration < = NRG Ceftriaxone susceptibility test by minimum inhibitory concentration <= NRG Ampicillin/sulbactam susceptibility test by minimum inhibitory concentration 4 NRG Piperacillin/tazobactam susceptibility test by minimum inhibitory concentration <= NRG Ciprofloxacin susceptibility test by minimum inhibitory concentration <= NRG Meropenem susceptibility test by minimum inhibitory concentration < = NRG Nitrofurantoin susceptibility test by minimum inhibitory concentration 32 NRG Aztreonam susceptibility test by minimum inhibitory concentration < = NRG Extended spectrum beta lactamase (ESBL) producing bacteria susceptibility test by minimum inhibitory concentration - [facility] Urine drug screening test - 10/20/16 22:49 Urine phencyclidine detection by screening method NEGATIVE NEGATIVE Urine benzodiazepines detection by screening method NEGATIVE NEGATIVE Urine cocaine detection NEGATIVE NEGATIVE Urine amphetamines detection by screening method NEGATIVE NEGATIVE Urine methamphetamine detection by screening method NEGATIVE NEGATIVE Urine cannabinoids detection by screening method NEGATIVE NEGATIVE Urine opiates detection by screening method NEGATIVE NEGATIVE Urine barbiturates detection NEGATIVE NEGATIVE Screening urine tricyclic antidepressants detection NEGATIVE NEGATIVE Urine methadone detection by screening method NEGATIVE NEGATIVE Urine oxycodone detection NEGATIVE NEGATIVE Urine propoxyphene detection NEGATIVE NEGATIVE Complete urinalysis with reflex to culture - 10/20/16 22:49 Urine color determination YELLOW NRG Urine clarity determination CLEAR NRG Urine pH measurement by test strip 6.5 5-9 Specific gravity of urine by test strip 1.010 1.016- 1.022 Urine protein assay by test strip, semi-quantitative NEGATIVE NEGATIVE Urine glucose detection by automated test strip 2+ NEGATIVE Erythrocytes detection in urine sediment by light microscopy NEGATIVE NEGATIVE Urine ketones detection by automated test strip NEGATIVE NEGATIVE Urine nitrite detection by test strip NEGATIVE NEGATIVE Urine total bilirubin detection by test strip NEGATIVE NEGATIVE Urine urobilinogen measurement by automated test strip (mass/volume) NORMAL NORMAL Urine leukocyte esterase detection by dipstick 3+ NEGATIVE Automated urine sediment erythrocyte count by microscopy (number/high power field) NONE NRG Automated urine sediment leukocyte count by microscopy (number/high power field ) [HPF] NRG Bacteria detection in urine sediment by light microscopy FEW NRG Squamous epithelial cells detection in urine sediment by light microscopy 2-5 NRG Crystals detection in urine sediment by light microscopy NONE NRG Casts detection in urine sediment by light microscopy NONE NRG Mucus detection in urine sediment by light microscopy NEGATIVE NRG Complete urinalysis with reflex to culture YES NRG Bacterial urine culture - 10/20/16 22:49 URINE CULTURE RESULTS <10,000/ML NRG Complete blood count (CBC) with automated white blood cell (WBC) differential - 10/20/16 23:37 Blood leukocytes automated count (number/volume) 9.8 10*3/uL 4.3-11.0 Blood erythrocytes automated count (number/volume) 4.03 10*6/uL 4.35-5.85 Venous blood hemoglobin measurement (mass/volume) 12.0 g/dL 11.5-16.0 Blood hematocrit (volume fraction) 34 % 35-52 Automated erythrocyte mean corpuscular volume 84 [foz_us] 80-99 Automated erythrocyte mean corpuscular hemoglobin (mass per erythrocyte) 30 pg 25-34 Automated erythrocyte mean corpuscular hemoglobin concentration measurement ( mass/volume) 35 g/dL 32-36 Automated erythrocyte distribution width ratio 13.2 % 10.0-14.5 Automated blood platelet count (count/volume) 192 10*3/uL 130-400 Automated blood platelet mean volume measurement 8.7 [foz_us] 7.4-10.4 Automated blood neutrophils/100 leukocytes 77 % 42-75 Automated blood lymphocytes/100 leukocytes 14 % 12-44 Blood monocytes/100 leukocytes 6 % 0-12 Automated blood eosinophils/100 leukocytes 2 % 0-10 Automated blood basophils/100 leukocytes 1 % 0-10 Blood neutrophils automated count (number/volume) 7.6 10*3 1.8-7.8 Blood lymphocytes automated count (number/volume) 1.4 10*3 1.0-4.0 Blood monocytes automated count (number/volume) 0.6 10*3 0.0-1.0 Automated eosinophil count 0.2 10*3/uL 0.0-0.3 Automated blood basophil count (count/volume) 0.1 10*3/uL 0.0-0.1 Comprehensive metabolic panel - 10/20/16 23:37 Serum or plasma sodium measurement (moles/volume) 129 mmol/L 135-145 Serum or plasma potassium measurement (moles/volume) 4.7 mmol/L 3.6-5.0 Serum or plasma chloride measurement (moles/volume) 97 mmol/L 98-107 Carbon dioxide 21 mmol/L 21-32 Serum or plasma anion gap determination (moles/volume) 11 mmol/L 5-14 Serum or plasma urea nitrogen measurement (mass/volume) 25 mg/dL 7-18 Serum or plasma creatinine measurement (mass/volume) 1.39 mg/dL 0.60-1.30 Serum or plasma urea nitrogen/creatinine mass ratio 18 NRG Serum or plasma creatinine measurement with calculation of estimated glomerular filtration rate 38 NRG Serum or plasma glucose measurement (mass/volume) 240 mg/dL 70-105 Serum or plasma calcium measurement (mass/volume) 9.4 mg/dL 8.5-10.1 Serum or plasma total bilirubin measurement (mass/volume) 0.3 mg/dL 0.1-1.0 Serum or plasma alkaline phosphatase measurement (enzymatic activity/volume) 144 U/L 40-136 Serum or plasma aspartate aminotransferase measurement (enzymatic activity/ volume) 34 U/L 5-34 Serum or plasma alanine aminotransferase measurement (enzymatic activity/volume ) 36 U/L 0-55 Serum or plasma protein measurement (mass/volume) 7.2 g/dL 6.4-8.2 Serum or plasma albumin measurement (mass/volume) 3.9 g/dL 3.2-4.5 Magnesium - 10/20/16 23:37 Magnesium 1.7 mg/dL 1.8-2.4 Serum or plasma salicylates measurement (mass/volume) - 10/20/16 23:37 Serum or plasma salicylates measurement (mass/volume) < mg/dL 5.0-20.0 Serum or plasma acetaminophen measurement (mass/volume) - 10/20/16 23:37 Serum or plasma acetaminophen measurement (mass/volume) < ug/mL 10-30 Serum or plasma ethanol measurement (mass/volume) - 10/20/16 23:37 Serum or plasma ethanol measurement (mass/volume) < mg/dL <10 Complete blood count (CBC) with automated white blood cell (WBC) differential - 10/21/16 05:05 Blood leukocytes automated count (number/volume) 9.2 10*3/uL 4.3-11.0 Blood erythrocytes automated count (number/volume) 4.16 10*6/uL 4.35-5.85 Venous blood hemoglobin measurement (mass/volume) 12.4 g/dL 11.5-16.0 Blood hematocrit (volume fraction) 35 % 35-52 Automated erythrocyte mean corpuscular volume 85 [foz_us] 80-99 Automated erythrocyte mean corpuscular hemoglobin (mass per erythrocyte) 30 pg 25-34 Automated erythrocyte mean corpuscular hemoglobin concentration measurement ( mass/volume) 35 g/dL 32-36 Automated erythrocyte distribution width ratio 13.4 % 10.0-14.5 Automated blood platelet count (count/volume) 201 10*3/uL 130-400 Automated blood platelet mean volume measurement 9.0 [foz_us] 7.4-10.4 Automated blood neutrophils/100 leukocytes 77 % 42-75 Automated blood lymphocytes/100 leukocytes 15 % 12-44 Blood monocytes/100 leukocytes 7 % 0-12 Automated blood eosinophils/100 leukocytes 1 % 0-10 Automated blood basophils/100 leukocytes 0 % 0-10 Blood neutrophils automated count (number/volume) 7.1 10*3 1.8-7.8 Blood lymphocytes automated count (number/volume) 1.4 10*3 1.0-4.0 Blood monocytes automated count (number/volume) 0.6 10*3 0.0-1.0 Automated eosinophil count 0.1 10*3/uL 0.0-0.3 Automated blood basophil count (count/volume) 0.0 10*3/uL 0.0-0.1 Comprehensive metabolic panel - 10/21/16 05:05 Serum or plasma sodium measurement (moles/volume) 133 mmol/L 135-145 Serum or plasma potassium measurement (moles/volume) 4.5 mmol/L 3.6-5.0 Serum or plasma chloride measurement (moles/volume) 99 mmol/L 98-107 Carbon dioxide 23 mmol/L 21-32 Serum or plasma anion gap determination (moles/volume) 11 mmol/L 5-14 Serum or plasma urea nitrogen measurement (mass/volume) 24 mg/dL 7-18 Serum or plasma creatinine measurement (mass/volume) 1.13 mg/dL 0.60-1.30 Serum or plasma urea nitrogen/creatinine mass ratio 21 NRG Serum or plasma creatinine measurement with calculation of estimated glomerular filtration rate 48 NRG Serum or plasma glucose measurement (mass/volume) 173 mg/dL 70-105 Serum or plasma calcium measurement (mass/volume) 9.5 mg/dL 8.5-10.1 Serum or plasma total bilirubin measurement (mass/volume) 0.3 mg/dL 0.1-1.0 Serum or plasma alkaline phosphatase measurement (enzymatic activity/volume) 124 U/L 40-136 Serum or plasma aspartate aminotransferase measurement (enzymatic activity/ volume) 29 U/L 5-34 Serum or plasma alanine aminotransferase measurement (enzymatic activity/volume ) 35 U/L 0-55 Serum or plasma protein measurement (mass/volume) 7.3 g/dL 6.4-8.2 Serum or plasma albumin measurement (mass/volume) 4.0 g/dL 3.2-4.5 Digoxin - 10/21/16 05:05 Digoxin 0.65 ng/mL 0.80-2.00 Encounters ACCT No. Visit Date/Time Discharge Status Pt. Type Provider Facility Loc./Unit Complaint [id number] 03/16/2014 15:41:00 03/16/2014 23:59:59 CLS Outpatient KATHY FONTANEZ APRN [id number] 11/16/2013 14:20:00 11/16/2013 23:59:59 CLS Outpatient DAYANA ESTRADA APRN [id number] 09/26/2013 17:01:00 09/26/2013 23:59:59 CLS Outpatient CARLITA WAITE MD [id number] 08/25/2013 15:02:00 08/25/2013 23:59:59 CLS Outpatient MIGUEL LEW APRN [id number] 06/25/2013 13:11:00 06/25/2013 23:59:59 CLS Outpatient BOONE IRAHETA DO [id number] 05/26/2013 10:59:00 05/26/2013 23:59:59 CLS Outpatient WOOD CALDERON APRN [id number] 11/18/2012 10:09:00 11/18/2012 23:59:59 CLS Outpatient BOONE IRAHETA DO [id number] 05/24/2012 13:54:00 05/24/2012 23:59:59 CLS Outpatient BOONE IRAHETA DO [id number] 05/10/2012 14:28:00 05/10/2012 23:59:59 CLS Outpatient BOONE IRAHETA DO [id number] 04/27/2012 13:46:00 04/27/2012 23:59:59 CLS Outpatient BOONE IRAHETA DO [id number] 02/25/2012 16:14:00 02/25/2012 23:59:59 CLS Outpatient TRUNG ERNETSO Lurdes [id number] 02/18/2012 14:57:00 02/18/2012 23:59:59 CLS Outpatient WOOD CALDERON APRN [id number] 12/24/2011 13:52:00 12/24/2011 23:59:59 CLS Outpatient CHIQUITA ROGERS DO [id number] 10/13/2012 08:44:00 Document Registration [id number] 09/07/2012 14:15:00 Document Registration [id number] 08/16/2012 14:07:00 Document Registration [id number] 06/23/2012 09:34:00 Document Registration [id number] 02/16/2017 05:23:00 02/16/2017 05:55:00 DIS Emergency MANOHAR GLASER, STEVEN Vogel [facility] ER GEN PAIN TOOTH PAIN [id number] 02/03/2017 07:24:00 02/03/2017 23:59:59 CLS Outpatient BAIBARRY WHITTINGTON L RENAL CASE MANAGER [facility] CARD CAD [id number] 12/02/2016 08:30:00 12/02/2016 23:59:59 CLS Preadmit BAIDUSTIN WHITTINGTONHER L RENAL CASE MANAGER [facility] CARD CAD [id number] 11/25/2016 13:12:00 11/25/2016 23:59:59 CLS Outpatient BAINELSY BRARY L RENAL CASE MANAGER [facility] RAD CAD [id number] 10/21/2016 00:45:00 10/21/2016 15:00:00 DIS Inpatient CINDY THOMPSON MD [facility] 4TH UTI,ENCEPHALOPATHY, HYPONATREMIA [id number] 10/07/2016 12:00:00 10/07/2016 23:59:59 CLS Preadmit AVANI GLASER FACC, SHAQUILLE TURCIOS CCDS [facility] CARD R26.89 CLAUDICATION [id number] 09/25/2016 23:10:00 09/26/2016 11:15:00 DIS Inpatient CINDY THOMPSON MD [facility] 4TH SCHIZOPHRENIA,UTI, ALTERED MENTAL STATUS [id number] 11/26/2015 06:48:00 11/26/2015 08:11:00 DIS Emergency ANDREW BINGHAM DO [facility] ER NAUSEA [id number] 06/20/2015 08:47:00 06/20/2015 23:59:59 CLS Outpatient BARRY REYES [facility] RAD CAD,HTN,HLP [id number] 06/20/2015 10:53:00 06/20/2015 13:55:00 DIS Emergency SORAYA MARTINS [facility] ER HIGH BLOOD SUGAR [id number] 06/30/2014 16:07:00 06/30/2014 23:59:59 CLS Outpatient AVANI GLASER FACC, SHAQUILLE TURCIOS CCDS [facility] LAB CAD,ISCHEMIC HEART DISEASE,CAROTID ARTERIAL DISEAS [id number] 09/05/2013 12:06:00 09/06/2013 12:38:00 DIS Inpatient CARLITA WAITE MD [facility] ICU SYNCOPE HYPERKALEMIA RENAL INSUFFICIENCY [id number] 09/24/2012 11:31:00 09/24/2012 14:53:00 DIS Emergency MAKENNA ODEN MD [facility] ER FELL L BACK PAIN [id number] 09/18/2012 11:29:00 09/18/2012 23:59:59 CLS Outpatient [id number] 08/16/2012 17:15:00 08/17/2012 14:53:00 DIS Inpatient CARLITA WAITE MD [facility] CSD SYNCOPYE,CP, HYPOMAGNESEMIA [id number] 07/20/2012 18:04:00 07/20/2012 23:59:59 CLS Outpatient [id number] 02/24/2017 08:00:00 ACT Outpatient BARRY REYES [facility] CATH CAD,CAROTID ARTERIAL DISEASE [id number] 05/14/2014 18:01:00 Document Registration [id number] 01/14/2012 19:48:00 Document Registration [id number] 05/06/2011 03:25:00 Document Registration [id number] 04/17/2011 11:00:00 Document Registration [id number] 01/29/2011 09:53:00 Document Registration [id number] 01/28/2011 14:09:00 Document Registration [id number] 01/21/2011 15:15:00 Document Registration [id number] 01/16/2011 10:30:00 Document Registration [id number] 12/02/2010 13:54:00 Document Registration [id number] 09/18/2010 09:32:00 Document Registration [id number] 06/05/2010 19:49:00 Document Registration [id number] 05/31/2010 11:02:00 Document Registration [id number] 05/23/2010 09:27:00 Document Registration [id number] 05/20/2010 10:00:00 Document Registration [id number] 05/18/2010 09:49:00 Document Registration [id number] 05/16/2010 14:29:00 Document Registration [id number] 05/07/2010 15:08:00 Document Registration [id number] 04/25/2010 07:50:00 Document Registration [id number] 03/11/2010 16:05:00 Document Registration [id number] 02/07/2010 10:51:00 Document Registration
[2017-02-24 08:31] LABS: MEAN PLATELET VOLUME 9.2 FL (7.4-10.4); RED BLOOD COUNT 4.24 10^6/uL (4.35-5.85); WHITE BLOOD COUNT 7.6 10^3/uL (4.3-11.0)
[2017-02-24] MEDS ORDERED: NS IV 1000 ML 1,000 ML IV ONE (08:45)
[2017-02-24 08:53] LABS: INR 1.1 (0.8-1.4)
[2017-02-24 08:54] LABS: ALBUMIN 3.9 GM/DL (3.2-4.5); BILIRUBIN,TOTAL 0.3 MG/DL (0.1-1.0); CALCIUM 9.1 MG/DL (8.5-10.1); CREATININE SERUM 1.38 MG/DL (0.60-1.30); POTASSIUM 4.8 MMOL/L (3.6-5.0); TOTAL PROTEIN 7.1 GM/DL (6.4-8.2)
[2017-02-24] MEDS ORDERED: LURA80TA3 PO (09:51)
[2017-02-24] MEDS ORDERED: INSU100V5 SC (09:58)
[2017-02-24] MEDS ORDERED: FISH1CAP15 PO (09:58)
[2017-02-24] MEDS ORDERED: INSU100V16 SC (09:58)
[2017-02-24] MEDS ORDERED: PHEN95TA30 PO (09:58)
[2017-02-24] MEDS ORDERED: MULT-35 PO (09:58)
[2017-02-24] MEDS ORDERED: DIPH25CA79 PO (09:58)
[2017-02-24] MEDS ORDERED: ASPI-983 PO ×2 (09:58)
[2017-02-24] MEDS ORDERED: INFLUENZA TRIvalent 2017-2018 0.5 ML/45 MCG SYR IM ONE (10:00)
[2017-02-24] MEDS ORDERED: fentaNYL INJECTION 100 MCG/2 ML AMP ONE (11:14)
[2017-02-24] MEDS ORDERED: MIDAZOLAM 5 MG/5 ML (VERSED) VIAL ONE (11:14)
[2017-02-24] MEDS ORDERED: diphenhydrAMINE 50 MG/ML INJ (BENADRYL) ONE (11:14)
[2017-02-24] MEDS ORDERED: HEParin 1000 UNIT/ML (10ML VIAL) FOR BOLUS ONE (11:49)
[2017-02-24] MEDS ORDERED: NITROGLYCERIN DRIP 25 MG/D5W 250 ML IV ONE (11:49)
[2017-02-24] MEDS ORDERED: EPTIFIBATIDE BOLUS 20 ML IV ONE (11:49)
[2017-02-24] MEDS ORDERED: EPTIFIBATIDE DRIP 100 ML IV ONE (11:54)
[2017-02-24] MEDS ORDERED: ASPIRIN 81 MG CHEW (CHILDREN'S ASA) ONE (12:22)
[2017-02-24] MEDS ORDERED: CLOPIDOGREL 300 MG (PLAVIX) TABLET PO ONE (12:22)
--- NOTE | 2017-02-24 13:35 | Cardiac Procedure Note-CS/ASA ---
Pre-Procedure Note Pre-Op Procedure Note H&P Reviewed The H&P was reviewed, patient examined and no changes noted. Date H&P Reviewed: Feb 24, 2017 Time H&P Reviewed: 12:10 Conscious Sedation Pre-Proced Time Reviewed: 12:10 ASA Class: 3 Airway Mallampati Classification: ([place] appropriate class) I. II. III, IV Lungs Heart ASA score ASA 1: a normal healthy patient ASA 2: a patient with a mild systemic disease (mid diabetes, controlled hypertension, obesity ASA 3: a patient with a severe systemic disease that limits activity (angina , COPD, prior Myocardial infarction) ASA 4: a patient with an incapacitating disease that is a constant threat to life (CHF, renal failure) ASA 5: a moribund patient not expected to survive 24 hrs. (ruptured aneurysm) ASA 6: a declared brain patient whose organs are being harvested. For emergent operations, add the letter E after the classification Grade 2 Sedation Plan: Analgesia, Amnesia, Plan communicated to team members, Discussed options with patient/fam, Discussed risks with patient/fam Note The patient is an appropriate candidate to undergo the planned procedure, sedation, and anesthesia. The patient immediately re-assessed prior to indication. TRAY VARMA MD FACP FAC CCDS Feb 24, 2017 13:35
[2017-02-24] MEDS ORDERED: diphenhydrAMINE 25 MG TAB (BENADRYL) PO PRN (13:45)
[2017-02-24] MEDS ORDERED: PATIENT MAY USE OWN MEDS, ALL PO SCH (13:45)
[2017-02-24] MEDS ORDERED: ACETAMINOPHEN 500 MG TAB (TYLENOL) PO PRN (13:45)
[2017-02-24] MEDS ORDERED: OMEGA 3 (FISH OIL) 1000 MG CAP PO SCH (17:00)
--- NOTE | 2017-02-24 18:02 | CARDIAC CATHETERIZATION ---
DATE OF SERVICE: 02/24/2017 CARDIAC CATHETERIZATION AND CORONARY INTERVENTION REPORT The patient is a 66-year-old lady, who is known to have coronary artery disease and continues to have coronary risk factors. Myocardial perfusion imaging study was indicative of considerable inferolateral ischemia. Cardiac catheterization was carried out today after having obtained an informed consent for cardiac catheterization and possible ad hoc coronary or graft intervention. [facility] considerably ahead of her cardiac catheterization time and vigorous perioperative hydration was carried out before, during, and after the procedure. This is because she has chronic kidney disease and is at risk of contrast nephropathy. This issue was discussed with her and she provided informed consent for the procedure. DESCRIPTION OF PROCEDURE: She was brought to the cardiac catheterization laboratory in a fasting state. Apparently, the right groin was prepared and draped in the usual sterile fashion. Lidocaine 1% for local anesthesia. Modified Seldinger technique was used to advance a 5-Greek sheath in the right femoral artery. A 5-Greek JL4 catheter for left coronary angiography, a 5-Greek JR4 catheter for right coronary angiography, a 5-Greek JR4 catheter for angiography of the saphenous vein graft to the left circumflex artery. A 5-Greek JEFF catheter was used for angiography of the left internal mammary artery graft to the left anterior descending artery. A 5-Greek pigtail catheter was used for left heart catheterization and left ventricular angiography. It was then pulled back and removed. PERCUTANEOUS INTERVENTION TO THE RIGHT CORONARY ARTERY: Following completion of the diagnostic procedure, we carried out percutaneous intervention to the right coronary artery where the patient had a long up to 90% stenosis in its mid portion. We exchanged the sheath over a wire for a 6-Greek sheath. We gave 5000 units of intravenous heparin. We gave a double bolus of Integrilin and Integrilin infusion was continued throughout the procedure. We used a 6-Greek JR4 guide catheter with side holes to engage the right coronary artery. We advanced a BMW wire across the lesion and the tip was placed in the distal vessel. We carried out balloon angioplasty with Emerge 2.5 x 30 mm balloon, which reduced the 90% stenosis to approximately 60% residual. The balloon was removed. We advanced Alpine Xience 3.0 x 33 mm stent. This was carefully positioned to cover the entire lesion in the mid right coronary artery. The stent was deployed at 18 atmospheres. Subsequent angiography revealed 0% residual stenosis at the previous site of up to 90% stenosis. Flow throughout the vessel was normal. The angioplasty equipment was removed. Angiography of the right femoral artery was carried out through the sheath. Mynx was used to achieve hemostasis. She tolerated the procedure well. HEMODYNAMICS: Left ventricular end-diastolic pressure following coronary angiography was 23 mmHg. There was no significant pressure gradient on pullback across the aortic valve. Ascending aortic pressure was 204/94 with a mean of 139 mmHg. LEFT VENTRICULAR ANGIOGRAPHY: Left ventricular angiography was not performed. This was to conserve contrast, given the patient's chronic kidney disease. Left heart catheterization, however, was performed and as described above. CORONARY ANGIOGRAPHY: Left main coronary artery has 70% ostial stenosis. Left anterior descending artery has 90% proximal stenosis and is subtotally occluded in its mid portion. The left circumflex artery is occluded in its proximal portion. The right coronary artery is dominant. It has 50% ostial stenosis and a long up to 90% mid vessel stenosis. To the mid vessel stenosis, stenting was carried out with Alpine Xience 3.0 x 33 mm stent, which reduced the stenosis to 0% residual. SAPHENOUS VEIN GRAFT ANGIOGRAPHY: An aortocoronary graft to an obtuse marginal artery is widely patent. There is some plaque in the terminal portion of this graft. The obtuse marginal, distal to the insertion of the graft, has approximately 80% stenosis. This is a small caliber vessel. ANGIOGRAPHY OF THE LEFT INTERNAL MAMMARY ARTERY GRAFT: Left internal mammary artery graft is widely patent to the mid left anterior descending artery. The distal left anterior descending artery, however, is occluded. The left anterior descending artery is of a very small caliber. CONCLUSIONS: 1. Severe [place] coronary artery disease consisting of 70% ostial stenosis of the left main coronary artery, 99% to 100% stenosis of the mid left anterior descending artery, occlusion of the proximal left circumflex artery and severe mid vessel stenosis of the right coronary artery. The severe mid vessel stenosis of the right coronary artery was treated with Alpine Xience 3.0 x 30 mm stent, which reduced the stenosis to 0% residual. The right coronary artery also has 50% ostial stenosis. 2. Patent aortocoronary graft to an obtuse marginal artery, but the obtuse marginal artery, distal to the stent, has an 80% stenosis and is a relatively small caliber vessel. 3. Patent left internal mammary artery graft to the mid left anterior descending artery, but the left anterior descending artery is of a small caliber and is occluded in its distal portion. 4. Elevated left ventricular end-diastolic pressure. DISCUSSION AND RECOMMENDATIONS: As stated above, we proceeded with percutaneous intervention of the right coronary artery, which is a previously ungrafted cautery and the territory of which lies ischemia seen on myocardial perfusion imaging. There is also considerable disease of the obtuse marginal following the insertion of the graft. This is a relatively small caliber vessel and we did not intervene on it. However, if this is an issue in the future, consideration can be given to balloon angioplasty to the obtuse marginal artery. Risk factor modification was reviewed with her. Plavix has been added to her current regimen. She has been hospitalized for observation after today's procedure. Close outpatient followup is advised. Job ID: [id number] DocumentID: [id number] Dictated Date: 02/24/2017 12:45:05 Meter Reader Chief Date: 02/24/2017 17:37:57 Dictated By: TRAY VARMA MD, MA, FACP, FACC, MTDD
[2017-02-24] MEDS: FISH OIL 1200 MG PO SCH (18:23)
[2017-02-24] MEDS: NS IV 1000 ML 1,000 ML IV SCH (18:30)
[2017-02-24] MEDS: inSUlin ASPART (NovoLOG) 1 UNIT/0.01 ML (CHARGE PER UNIT) SC SCH (18:30)
[2017-02-24] MEDS ORDERED: ATORVASTATIN 40 MG (LIPITOR) TABLET PO SCH (21:00)
[2017-02-24] MEDS ORDERED: CARVEDILOL 12.5 MG (COREG) TABLET PO SCH (21:00)
[2017-02-24] MEDS ORDERED: LURASIDONE 80 MG (LATUDA) TABLET NON-FORMULARY PO SCH (21:00)
[2017-02-24] MEDS: inSUlin DETERMIR 1 UNIT/0.01 ML (LEVEMIR) CHARGE PER UNIT SQ SCH (21:22)
[2017-02-24] MEDS: PHENAZOPYRIDINE 100 MG (PYRIDIUM) TABLET PO SCH (21:22)
[2017-02-24] MEDS: CARVEDILOL 12.5 MG (COREG) TABLET PO SCH (21:22)
[2017-02-25] VITALS: BP 131/61
[2017-02-25] MEDS: NS IV 1000 ML 1,000 ML IV SCH (02:55)
[2017-02-25 04:00] VITALS: BP 140/77
[2017-02-25 05:27] LABS: MEAN PLATELET VOLUME 9.5 FL (7.4-10.4); RED BLOOD COUNT 3.61 10^6/uL (4.35-5.85); RED CELL DISTRIBUTION WIDTH 13.1 % (10.0-14.5); WHITE BLOOD COUNT 6.5 10^3/uL (4.3-11.0)
[2017-02-25 05:41] LABS: CALCIUM 8.2 MG/DL (8.5-10.1); CREATININE SERUM 1.05 MG/DL (0.60-1.30); POTASSIUM 5.1 MMOL/L (3.6-5.0)
[2017-02-25 05:57] LABS: DIGOXIN 0.49 NG/ML (0.80-2.00)
[2017-02-25] MEDS: FISH OIL 1200 MG PO SCH (06:37)
[2017-02-25] MEDS: inSUlin ASPART (NovoLOG) 1 UNIT/0.01 ML (CHARGE PER UNIT) SC SCH (06:40)
[2017-02-25] MEDS ORDERED: MULTIVIT W/MINERALS TAB (THERAGRAN M) PO SCH (07:00)
[2017-02-25] MEDS ORDERED: MULTIVITAMIN PO SCH (07:00)
--- NOTE | 2017-02-25 07:57 | Progress Note-Cardiology ---
Cardiology SOAP Progress Note Objective: I&O/Vital Signs Vital Sign - Last 12Hours 02/24/17 02/24/17 02/24/17 02/25/17 20:00 20:00 20:00 00:00 Temp 97.5 98.1 Pulse 69 69 72 Resp 20 18 B/P (MAP) 144/63 (90) 144/63 (90) 131/61 (84) Pulse Ox 96 97 98 O2 Delivery Room Air Room Air Room Air Room Air 02/25/17 02/25/17 01:00 04:00 Temp 98.2 Pulse 72 70 Resp 20 B/P (MAP) 140/77 (98) Pulse Ox 97 O2 Delivery Room Air Intake and Output 02/24/17 23:59 Intake Total 700 ml Output Total 1500 ml Balance -800 ml Weight (Pounds): 177 Weight (Ounces): 0.0 Weight (Calculated Kilograms): 80.971373 Results/Procedures: Labs Laboratory Tests 02/24/17 08:22: White Blood Count 7.6, Red Blood Count 4.24L, Hemoglobin 12.4, Hematocrit 37, Mean Corpuscular Volume 87, Mean Corpuscular Hemoglobin 29, Mean Corpuscular Hemoglobin Concent 34, Red Cell Distribution Width 13.0, Platelet Count 198, Mean Platelet Volume 9.2, Prothrombin Time 14.0, INR Comment 1.1, Activated Partial Thromboplast Time 28, Sodium Level 138, Potassium Level 4.8, Chloride Level 107, Carbon Dioxide Level 22, Anion Gap 9, Blood Urea Nitrogen 26H, Creatinine 1.38H, Estimat Glomerular Filtration Rate 38, BUN/Creatinine Ratio 19 , Glucose Level 258H, Calcium Level 9.1, Total Bilirubin 0.3, Aspartate Amino Transf (AST/SGOT) 16, Alanine Aminotransferase (ALT/SGPT) 26, Alkaline Phosphatase 143H, Total Protein 7.1, Albumin 3.9, Triglycerides Level 185H, Cholesterol Level 203H, LDL Cholesterol Direct 129, VLDL Cholesterol 37, HDL Cholesterol 44 02/24/17 18:22: Glucometer 124H 02/25/17 04:53: White Blood Count 6.5, Red Blood Count 3.61L, Hemoglobin 10.6L, Hematocrit 32L, Mean Corpuscular Volume 88, Mean Corpuscular Hemoglobin 29, Mean Corpuscular Hemoglobin Concent 33, Red Cell Distribution Width 13.1, Platelet Count 184, Mean Platelet Volume 9.5, Sodium Level 139, Potassium Level 5.1H, Chloride Level 110H, Carbon Dioxide Level 22, Anion Gap 7, Blood Urea Nitrogen 22H, Creatinine 1.05, Estimat Glomerular Filtration Rate 52, BUN/Creatinine Ratio 21 , Glucose Level 157H, Calcium Level 8.2L, Digoxin Level 0.49L Laboratory Tests 02/24/17 08:22 02/25/17 04:53 A/P: Assessment: CAD with a h/o CABG in 2004. Cardiac cath of 02-24-17: Severe [place] coronary artery disease consisting of 70% ostial stenosis of the left main coronary artery, 99% to 100% stenosis of the mid left anterior descending artery, occlusion of the proximal left circumflex artery and severe mid vessel stenosis of the right coronary artery. The severe mid vessel stenosis of the right coronary artery was treated with Alpine Xience 3.0 x 30 mm stent, which reduced the stenosis to 0% residual. The right coronary artery also has 50% ostial stenosis. Patent aortocoronary graft to an obtuse marginal artery, but the obtuse marginal artery, distal to the stent, has an 80% stenosis and is a relatively small caliber vessel. Patent left internal mammary artery graft to the mid left anterior descending artery, but the left anterior descending artery is of a small caliber and is occluded in its distal portion. Elevated left ventricular end-diastolic pressure. MPI of 02-03-17 showed LVEF 62% Syncope in August 2013 that was due to postural hypotension due to dehydration. No recurrence since DM II H/o CKD, stage 2-3 Hypertension H/o ischemic cardiomyopathy but most recent echo of June 2015 is reported to have shown LVEF 55-60% and mild MR & TR; and PASP of 30-35 mmHg Pacemaker/defib implantation in Apr 2010, functioning normally on interrogation carried out February 2017 H/o carotid arterial disease, mild per u/s of August 2012. She has a h/o R CEA in the by Dr Rosales. Has not been compliant with carotid f/u Abnormal ECG. ECG on 08/20/16 shows paced atrial rhythm, [place] vent rhythm with diffuse repol abnormality (unchanged from previous ECG) Chronically abnormal ECG Carotid arterial disease with h/o R CEA by Dr Rosales in the , according to the patient. Carotid u/s of June 2015: mild bilat plaque of 0-40% Intermittent non-compliance with medical instructions HLP - followed by her PCP Hyperthyroidism per lab of June 2014 - followed by her PCP H/o emilie in the . She has had some speech impairment since then. Has recovered from R-sided weakness Bilateral leg discomfort - segmental pressures of November 2016 is non- diagnostic d/t noncompressibility of the leg vessels. Waveforms however, appear to be good H/o schizophrenia BARRY REYES [facility] Feb 25, 2017 07:57
[2017-02-25 08:22] VITALS: BP 144/67
[2017-02-25] MEDS: CARVEDILOL 12.5 MG (COREG) TABLET PO SCH (08:23)
[2017-02-25] MEDS: PHENAZOPYRIDINE 100 MG (PYRIDIUM) TABLET PO SCH (08:23)
[2017-02-25] MEDS: inSUlin DETERMIR 1 UNIT/0.01 ML (LEVEMIR) CHARGE PER UNIT SQ SCH (08:23)
[2017-02-25] MEDS ORDERED: ATOR40TA PO (08:52)
[2017-02-25] MEDS ORDERED: CLOP75TA28 PO (08:52)
[2017-02-25] MEDS ORDERED: ASPI-983 PO (08:52)
--- NOTE | 2017-02-25 08:54 | Discharge Inst-Cardiology ---
Discharge Inst-Cardiac Discharge Medications New Medications: Aspirin (Aspirin EC) 81 Mg Tablet. 0 MG PO DAILY, #90 TAB 5 Refills Atorvastatin Calcium (Lipitor) 40 Mg Tablet 40 MG PO HS, #30 TAB 5 Refills Clopidogrel Bisulfate (Clopidogrel) 75 Mg Tablet 75 MG PO DAILY, #90 TAB 3 Refills Continued Medications: Acetaminophen (Acetaminophen) 500 Mg Tablet 1000 MG PO Q6H PRN for PAIN-MILD, TAB TAKES 2 (500 MG) TABLETS Carvedilol (Carvedilol) 12.5 Mg Tablet 12.5 MG PO BID, TAB Digoxin (Digoxin) 125 Mcg Tablet 125 MCG PO DAILY, TAB Diphenhydramine HCl (Benadryl) 25 Mg Capsule 25 MG PO HS PRN for CONGESTION, CAP Enalapril Maleate (Enalapril Maleate) 20 Mg Tablet 20 MG PO DAILY, TAB Fish Oil/Dha/Epa (Fish Oil 1,200 mg Fish Oil) 1 Each Capsule 1200 MG PO BID, CAP Insulin Aspart (Novolog) 100 Unit/1 Ml Susp 10 UNITS SC AC, EA Insulin Determir (Levemir) 1,000 Units/10 Ml Soln 10 UNITS SC BID, EA Loperamide HCl (Anti-Diarrhea) 2 Mg Tablet PO UD PRN for DIARRHEA, TAB Lurasidone HCl (Latuda) 80 Mg Tablet 80 MG PO HS, TAB Multivitamin (Daily Multiple Vitamin) 1 Each Tablet 1 TAB PO DAILY, TAB Phenazopyridine HCl (Azo Standard) 95 Mg Tablet 95 MG PO BID, TAB Discontinued Medications: Aspirin (Aspirin EC) 81 Mg Tablet. 81-162 MG PO DAILY, TAB Aspirin (Aspirin EC) 81 Mg Tablet. 243 MG PO HS, TAB New, Converted or Re-Newed RX: Transmitted to Pharmacy Patient Instructions Patient Instructions: Lab: BMP in a week Lab: CMP and fasting lipid panel in a month Please schedule f/u appt in [address] Jo Orders-Post D/C & Referrals Pneu Vac Indicated: Yes BARRY REYES Feb 25, 2017 08:54
[2017-02-25] MEDS ORDERED: CLOPIDOGREL 75 MG (PLAVIX) TABLET PO SCH ×2 (09:00)
[2017-02-25] MEDS ORDERED: ASPIRIN 81 MG CHEW (CHILDREN'S ASA) PO SCH (09:00)
[2017-02-25] MEDS ORDERED: ENALAPRIL 20 MG PO SCH (09:00)
[2017-02-25] MEDS ORDERED: ASPIRIN E.C. 81 MG (ECOTRIN) TAB PO SCH (09:00)
[2017-02-25] MEDS ORDERED: DIGOXIN 0.125 MG (LANOXIN) TAB PO SCH ×2 (09:00)
[2017-02-25] MEDS ORDERED: ENALAPRIL 10 MG (VASOTEC) TAB PO SCH (09:00)
[2017-02-25 10:30] VITALS: BP 144/67
--- NOTE | 2017-02-25 12:38 | Progress Note-Cardiology ---
Cardiology SOAP Progress Note Subjective: No cp or palp or syncope or shortness of breath or groin discomfort this morning Objective: I&O/Vital Signs Vital Sign - Last 12Hours 02/25/17 02/25/17 02/25/17 02/25/17 01:00 04:00 07:00 08:22 Temp 98.2 Pulse 72 70 72 Resp 20 B/P (MAP) 140/77 (98) Pulse Ox 97 O2 Delivery Room Air Room Air 02/25/17 02/25/17 08:22 10:30 Temp 97.9 Pulse 69 69 Resp 20 20 B/P (MAP) 144/67 (92) 144/67 Pulse Ox 96 96 O2 Delivery Room Air Room Air Intake and Output 02/25/17 00:00 Intake Total 700 ml Output Total 1500 ml Balance -800 ml Weight (Pounds): 177 Weight (Ounces): 0.0 Weight (Calculated Kilograms): 80.779908 Constitutional: AAO x 3, well-developed, well-nourished Respiratory: No accessory muscle use, other (good bilat air entry) Cardiovascular: regular rate-rhythm, S1 and S2, systolic murmur (2/6 PRESLEY at card base) Gastrointestional: No tender, soft, No guarding, No rebound, audible bowel sounds Extremities: No clubbing, No cyanosis, No significant edema Neurologic/Psychiatric: oriented x 3, grossly intact, power is 5/5 both on sides Skin: No rash on exposed areas, No ulcerations on exposed areas Results/Procedures: Labs Laboratory Tests 02/24/17 18:22: Glucometer 124H 02/25/17 04:53: White Blood Count 6.5, Red Blood Count 3.61L, Hemoglobin 10.6L, Hematocrit 32L, Mean Corpuscular Volume 88, Mean Corpuscular Hemoglobin 29, Mean Corpuscular Hemoglobin Concent 33, Red Cell Distribution Width 13.1, Platelet Count 184, Mean Platelet Volume 9.5, Sodium Level 139, Potassium Level 5.1H, Chloride Level 110H, Carbon Dioxide Level 22, Anion Gap 7, Blood Urea Nitrogen 22H, Creatinine 1.05, Estimat Glomerular Filtration Rate 52, BUN/Creatinine Ratio 21 , Glucose Level 157H, Calcium Level 8.2L, Digoxin Level 0.49L Microbiology 02/24/17 MRSA Screen - Final, Complete Laboratory Tests 02/24/17 08:22 02/25/17 04:53 A/P: Assessment: CAD with a h/o CABG in 2004. Cardiac cath of 02-24-17: Severe [place] coronary artery disease consisting of 70% ostial stenosis of the left main coronary artery, 99% to 100% stenosis of the mid left anterior descending artery, occlusion of the proximal left circumflex artery and severe mid vessel stenosis of the right coronary artery. The severe mid vessel stenosis of the right coronary artery was treated with Alpine Xience 3.0 x 30 mm stent, which reduced the stenosis to 0% residual. The right coronary artery also has 50% ostial stenosis. Patent aortocoronary graft to an obtuse marginal artery, but the obtuse marginal artery, distal to the stent, has an 80% stenosis and is a relatively small caliber vessel. Patent left internal mammary artery graft to the mid left anterior descending artery, but the left anterior descending artery is of a small caliber and is occluded in its distal portion. Elevated left ventricular end-diastolic pressure. MPI of 02-03-17 showed LVEF 62% Syncope in August 2013 that was due to postural hypotension due to dehydration. No recurrence since DM II H/o CKD, stage 2-3. Cr stable/improved post card cath of 02/24/17 Hypertension H/o ischemic cardiomyopathy but most recent echo of June 2015 is reported to have shown LVEF 55-60% and mild MR & TR; and PASP of 30-35 mmHg Pacemaker/defib implantation in Apr 2010, functioning normally on interrogation carried out February 2017 H/o carotid arterial disease, mild per u/s of August 2012. She has a h/o R CEA in the by Dr Rosales. Has not been compliant with carotid f/u Abnormal ECG. ECG on 08/20/16 shows paced atrial rhythm, [place] vent rhythm with diffuse repol abnormality (unchanged from previous ECG) Chronically abnormal ECG Carotid arterial disease with h/o R CEA by Dr Rosales in the , according to the patient. Carotid u/s of June 2015: mild bilat plaque of 0-40% Intermittent non-compliance with medical instructions HLP - followed by her PCP Hyperthyroidism per lab of June 2014 - followed by her PCP H/o stoke in the . She has had some speech impairment since then. Has recovered from R-sided weakness Bilateral leg discomfort - segmental pressures of November 2016 is non- diagnostic d/t noncompressibility of the leg vessels. Waveforms however, appear to be good H/o schizophrenia Plan: * I had a detailed discussion with her regarding cath findings, interventions undertaken, treatment changes and f/u plans * We discussed risk factor modification * We advised f/u at our office next week * If symptoms are an issue, we will consider PCI to the OM past the SVG graft insertion. LAD past graft insertion appears inoperable TRAY VARMA MD FACP FAC CCDS Feb 25, 2017 12:38
--- NOTE | 2017-02-25 12:40 | Cardiology Discharge Summary ---
Diagnosis/Chief Complaint Date of Admission 02/24/17 Date of Discharge 02/25/17 Final/Discharge Diagnosis CAD with a h/o CABG in 2004. Cardiac cath of 02-24-17: Severe [place] coronary artery disease consisting of 70% ostial stenosis of the left main coronary artery, 99% to 100% stenosis of the mid left anterior descending artery, occlusion of the proximal left circumflex artery and severe mid vessel stenosis of the right coronary artery. The severe mid vessel stenosis of the right coronary artery was treated with Alpine Xience 3.0 x 30 mm stent, which reduced the stenosis to 0% residual. The right coronary artery also has 50% ostial stenosis. Patent aortocoronary graft to an obtuse marginal artery, but the obtuse marginal artery, distal to the stent, has an 80% stenosis and is a relatively small caliber vessel. Patent left internal mammary artery graft to the mid left anterior descending artery, but the left anterior descending artery is of a small caliber and is occluded in its distal portion. Elevated left ventricular end-diastolic pressure. MPI of 02-03-17 showed LVEF 62% Syncope in August 2013 that was due to postural hypotension due to dehydration. No recurrence since DM II H/o CKD, stage 2-3. Cr stable/improved post card cath of 02/24/17 Hypertension H/o ischemic cardiomyopathy but most recent echo of June 2015 is reported to have shown LVEF 55-60% and mild MR & TR; and PASP of 30-35 mmHg Pacemaker/defib implantation in Apr 2010, functioning normally on interrogation carried out February 2017 H/o carotid arterial disease, mild per u/s of August 2012. She has a h/o R CEA in the by Dr Rosales. Has not been compliant with carotid f/u Abnormal ECG. ECG on 08/20/16 shows paced atrial rhythm, [place] vent rhythm with diffuse repol abnormality (unchanged from previous ECG) Chronically abnormal ECG Carotid arterial disease with h/o R CEA by Dr Rosales in the , according to the patient. Carotid u/s of June 2015: mild bilat plaque of 0-40% Intermittent non-compliance with medical instructions HLP - followed by her PCP Hyperthyroidism per lab of June 2014 - followed by her PCP H/o stoke in the . She has had some speech impairment since then. Has recovered from R-sided weakness Bilateral leg discomfort - segmental pressures of November 2016 is non- diagnostic d/t noncompressibility of the leg vessels. Waveforms however, appear to be good H/o schizophrenia Chief Complaint/HPI Chief Complaint/HPI Please refer to H&P for details of admission Please refer to card cath report and today's progress note for hosp course Discharge Summary Procedures Card cath and PCI 02/24/17 Hospital Course Pending Labs Laboratory Tests 02/25/17 04:53: White Blood Count 6.5, Red Blood Count 3.61, Hemoglobin 10.6, Hematocrit 32, Mean Corpuscular Volume 88, Mean Corpuscular Hemoglobin 29, Mean Corpuscular Hemoglobin Concent 33, Red Cell Distribution Width 13.1, Platelet Count 184, Mean Platelet Volume 9.5, Sodium Level 139, Potassium Level 5.1, Chloride Level 110, Carbon Dioxide Level 22, Anion Gap 7, Blood Urea Nitrogen 22, Creatinine 1.05, Estimat Glomerular Filtration Rate 52, BUN/Creatinine Ratio 21, Glucose Level 157, Calcium Level 8.2, Digoxin Level 0.49 Discussion & Recommendations Home Medications Reviewed patient Home Medication Reconciliation Form Discharge Home Medications: Reviewed and agree with Discharge Medication list on patient's Discharge Instruction sheet TRAY VARMA MD FACP FAC CCDS Feb 25, 2017 12:40
== END 2017-02-25 10:30 | disposition home or self-care (01) ==
LOC: CATH 08:00 → ICU 12:59 → CATH 02-25 10:30
PROVIDERS: ATTEND Nurse Practitioner Family
DX: I25.10 Atherosclerotic heart disease of native coronary artery without angina pectoris (principal); I25.5 Ischemic cardiomyopathy; E11.22 Type 2 diabetes mellitus with diabetic chronic kidney disease; I12.9 Hypertensive chronic kidney disease with stage 1 through stage 4 chronic kidney disease, or unspecified chronic kidney disease; N18.2 Chronic kidney disease, stage 2 (mild); I65.23 Occlusion and stenosis of bilateral carotid arteries; F32.9 Major depressive disorder, single episode, unspecified; I69.328 Other speech and language deficits following cerebral infarction; F20.9 Schizophrenia, unspecified; E66.9 Obesity, unspecified; Z68.30 Body mass index [BMI] 30.0-30.9, adult; Z95.810 Presence of automatic (implantable) cardiac defibrillator; Z95.1 Presence of aortocoronary bypass graft; Z79.4 Long term (current) use of insulin; Z79.899 Other long term (current) drug therapy
CPT/HCPCS: 36415; 80048; 80053; 80061; 80162; 82962; 85027; 85610; 85730; 87081; 92928; 93005; 93459

== ENCOUNTER → 2017-03-04 | Outpatient (CLI) | payer OTHER ==
[~2017-03-04] MED LIST changes: +ACHD5005 PO; +ASPI-983 PO; +ATOR40TA PO; +CLOP75TA28 PO; +DIPH25CA79 PO; +FISH1CAP15 PO; -HYDR-3812 PO; +INSU100V16 SC; +INSU100V5 SC; +LURA80TA3 PO; +MULT-35 PO; +PHEN95TA30 PO
[2017-03-04 15:55] LABS: BASOPHILS % (AUTO) 1 % (0-10); EOSINOPHILS # (AUTO) 0.1 10^3/uL (0.0-0.3); EOSINOPHILS % (AUTO) 2 % (0-10); LYMPHOCYTES # (AUTO) 1.4 X 10^3 (1.0-4.0); LYMPHOCYTES % (AUTO) 19 % (12-44); MEAN CORPUSCULAR HEMOGLOBIN 29 PG (25-34); MEAN CORPUSCULAR HGB CONC 34 G/DL (32-36); MEAN CORPUSCULAR VOLUME 87 FL (80-99); MEAN PLATELET VOLUME 9.7 FL (7.4-10.4); MONOCYTES # (AUTO) 0.4 X 10^3 (0.0-1.0); MONOCYTES % (AUTO) 5 % (0-12); NEUTROPHILS # (AUTO) 5.6 X 10^3 (1.8-7.8); NEUTROPHILS % (AUTO) 74 % (42-75); PLATELET COUNT 179 10^3/uL (130-400); RED BLOOD COUNT 3.99 10^6/uL (4.35-5.85); RED CELL DISTRIBUTION WIDTH 12.3 % (10.0-14.5); WHITE BLOOD COUNT 7.5 10^3/uL (4.3-11.0)
[2017-03-04 16:03] LABS: CALCIUM 8.9 MG/DL (8.5-10.1); CREATININE SERUM 1.32 MG/DL (0.60-1.30); POTASSIUM 4.8 MMOL/L (3.6-5.0)
== END ==
LOC: LAB 15:30
PROVIDERS: ATTEND Nurse Practitioner Family
DX: I25.10 Atherosclerotic heart disease of native coronary artery without angina pectoris (principal); N18.3 Chronic kidney disease, stage 3 (moderate); I25.5 Ischemic cardiomyopathy; E78.4 Other hyperlipidemia
CPT/HCPCS: 36415; 80048; 85025

== ENCOUNTER 2017-03-24 07:44 | Day surgery (SDC) | payer OTHER ==
[2017-03-24] VITALS (12 sets, daily range): BP systolic 140–184; BP diastolic 75–91
--- OUTSIDE RECORDS SUMMARY | 2017-03-24 07:53 | XMS REPORT | Continuity of Care Document ---
Author Author [facility] Address Unknown Phone Unavailable Allergies Active Description Code Type Severity Reaction Onset Reported/Identified Relationship to Patient Clinical Status Yes corn [id number] Drug Allergy Unknown N/A 02/07/2010 Yes [place] Food Allergy N/A N/A 07/30/2011 Yes Pork Food Allergy N/A N/A 07/30/2011 Yes [place] Food Allergy N/A N/A 07/30/2011 Yes yeast Food Allergy N/A N/A 07/30/2011 Yes [place] Food Allergy 07/30/2011 Yes Pork Food Allergy 07/30/2011 Yes [place] Food Allergy 07/30/2011 Yes yeast Food Allergy 07/30/2011 Yes CORN Food Allergy N/A N/A 06/23/2012 Yes CORN Food Allergy 06/23/2012 Yes Bleach (Sodium Hypochlorite) [id number] Drug Allergy Unknown N/A 2016 Yes perfume [id number] Drug Allergy Unknown N/A 09/25/2016 Medications There [...] DYSTHYMIC DISORDER (DEPRESSIVE NEUROSIS) WOOD CALDERON APRN S 307.47 NIGHTMARE DISORDER WOOD CALDERON APRN S 425.4 CARDIOMYOPATHY YUMIKO PANEL MACHINE TENDER, WOOD S 427.9 RHYTHM DISORDER YUMIKO PANEL MACHINE TENDERELWOOD S 455.6 HEMORRHOIDS YUMIKO PANEL MACHINE TENDEREL RodriguezNDA S 578.1 red blood in bowel movement (hematochezia) YUMIKO PANEL MACHINE TENDEREL RodriguezNDA S 625.9 pelvic pain YUMIKO PANEL MACHINE TENDEREL RodriguezNDA S 787.91 diarrhea YUMIKO PANEL MACHINE TENDER, WOOD S 796.2 Blood Pressure Isolated Elevated YUMIKO PANEL MACHINE TENDERELWOOD S V58.69 taking high-risk medication CHALO CALDERON [...] for: screening exam malignant neoplasm breast MADL PANEL MACHINE TENDER, MIGUEL L 272.4 HYPERLIPIDEMIA MADL PANEL MACHINE TENDER, MIGUEL L 296.40 BIPOLAR I DISORDER, MOST RECENT EPISODE, MANIC MADL PANEL MACHINE TENDER, MIGUEL L 296.80 BIPOLAR DISORDER NOS MADL PANEL MACHINE TENDER, MIGUEL L 296.90 EPISODIC MOOD DISORDERS MADL PANEL MACHINE TENDER, MIGUEL L 300.00 anxiety MADL PANEL MACHINE TENDER, MIGUEL L 300.4 DYSTHYMIC DISORDER (DEPRESSIVE NEUROSIS) MADL PANEL MACHINE TENDER, MIGUEL L 307.47 NIGHTMARE DISORDER MADL PANEL MACHINE TENDER, MIGUEL L 425.4 CARDIOMYOPATHY MADL PANEL MACHINE TENDER, MIGUEL L 427.9 RHYTHM DISORDER MADL PANEL MACHINE TENDER, MIGUEL L 455.6 HEMORRHOIDS MADL PANEL MACHINE TENDER, MIGUEL L 578.1 red blood in bowel movement (hematochezia) MADL PANEL MACHINE TENDER, MIGUEL L 625.9 pelvic pain MADL PANEL MACHINE TENDER, MIGUEL L 787.91 diarrhea MADL PANEL MACHINE TENDER, MIGUEL L 796.2 Blood Pressure Isolated Elevated MADL PANEL MACHINE TENDER, MIGUEL L V58.69 taking high-risk medication MADL PANEL MACHINE TENDER, MIGUEL L V65.49 Self-Care Education - Need To Report Postmenopausal Bleeding MADL PANEL MACHINE TENDER, MIGUEL L V76.10 visit for: screening exam [...] DAYANA ESTRADA APRN R 455.6 HEMORRHOIDS ESTRADA PANEL MACHINE TENDER, DAYANA R 578.1 red blood in bowel movement (hematochezia) ESTRADA PANEL MACHINE TENDER, DAYANA R 625.9 pelvic pain ESTRADA PANEL MACHINE TENDER, DAYANA R 787.91 diarrhea SEAN PANEL MACHINE TENDER, DAYANA R 796.2 Blood Pressure Isolated Elevated [...] R 296.80 BIPOLAR DISORDER NOS ESTEE HAIRSTONN, KATHY R 296.90 EPISODIC MOOD DISORDERS ESTEE HAIRSTONN, [...] KEN DO CHIQUITA F 616.10 VULVITIS 09/27/2007 YMUIKO HAIRSTONN, WOOD S 250.00 DIABETES MELLITUS POORLY [...] IRAHETA DOA K 553.3 HIATAL HERNIA 09/27/2007 MARBIN IRAHETA DOA K 616.10 VULVITIS 09/27/2007 YUMIKO MORRIS WOOD S 250.00 DIABETES MELLITUS POORLY CONTROLLED 09/27/2007 EL CALDERON APRNNDA S 401.1 ESSENTIAL HYPERTENSION BENIGN 09/27/2007 YUMIKO MORRIS WOOD S 553.3 HIATAL HERNIA 09/27/2007 YUMIKO MORRIS WOOD S 616.10 VULVITIS 09/27/2007 MYRTLE SPICER BOONE K 250.00 DIABETES MELLITUS POORLY CONTROLLED 09/27/2007 MARBNI IRAHETA DOA K 401.1 ESSENTIAL HYPERTENSION BENIGN [...] CARLITA WAITE MD 616.10 VULVITIS 09/27/2007 SEAN PANEL MACHINE TENDER, DAYANA R 250.00 DIABETES MELLITUS POORLY CONTROLLED 09/27/2007 SEAN PANEL MACHINE TENDER, DAYANA R 401.1 ESSENTIAL HYPERTENSION BENIGN 09/27/2007 SEAN MORRIS, DAYANA R 553.3 HIATAL HERNIA 09/27/2007 SEAN PANEL MACHINE TENDER, DAYANA R 616.10 VULVITIS 09/27/2007 ESTEE PANEL MACHINE TENDER, KATHY R 250.00 DIABETES MELLITUS POORLY CONTROLLED 09/27/2007 ESTEE PANEL MACHINE TENDER, KATHY R 401.1 ESSENTIAL HYPERTENSION BENIGN 09/27/2007 [...] DO V72.31 Pelvic Exam (Internal) 11/22/2007 LOUANN PANEL MACHINE TENDER, MIGUEL York V72.31 Pelvic Exam (Internal) 11/22/2007 CARLITA WAITE MD V72.31 Pelvic Exam (Internal) 11/22/2007 SEAN PANEL MACHINE TENDER, DAYANA Almonte V72.31 Pelvic Exam (Internal) 11/22/2007 ESTEE PANEL MACHINE TENDER, KATHY Almonte V72.31 Pelvic Exam (Internal) 04/22/2008 [...] II OR UNSPECIFIED TYPE UNCONTROLLED 04/22/2008 YUMIKO PANEL MACHINE TENDER, WOOD S 250.02 DIABETES MELLITUS WITHOUT MENTION OF COMPLICATION TYPE II OR UNSPECIFIED TYPE UNCONTROLLED 04/22/2008 MYRTLE SPICER BOONE K 250.02 DIABETES MELLITUS WITHOUT MENTION OF COMPLICATION TYPE II OR UNSPECIFIED TYPE UNCONTROLLED 04/22/2008 LOUANN PANEL MACHINE TENDER, MIGUEL York 250.02 DIABETES MELLITUS WITHOUT MENTION OF COMPLICATION TYPE II OR UNSPECIFIED TYPE UNCONTROLLED 04/22/2008 CARLITA WAITE MD 250.02 DIABETES MELLITUS WITHOUT MENTION OF COMPLICATION TYPE II OR UNSPECIFIED TYPE UNCONTROLLED 04/22/2008 SEAN PANEL MACHINE TENDER, DAYANA R 250.02 DIABETES MELLITUS WITHOUT MENTION OF COMPLICATION TYPE II OR UNSPECIFIED TYPE UNCONTROLLED 04/22/2008 ESTEE PANEL MACHINE TENDER, KATHY R 250.02 DIABETES MELLITUS WITHOUT MENTION OF COMPLICATION TYPE II OR UNSPECIFIED TYPE UNCONTROLLED 05/31/2008 CHIQUITA ROGERS DO 564.1 IRRITABLE BOWEL SYNDROME 05/31/2008 CHIQUITA ROGERS DO 786.2 cough 05/31/2008 WOOD CALDERON APRN S 564.1 IRRITABLE BOWEL SYNDROME 05/31/2008 WOOD CALDERON APRN S 786.2 cough 05/31/2008 TRUNG PHD, ERNESTO Chatman 564.1 IRRITABLE BOWEL SYNDROME 05/31/2008 TRUNG [...] DO BOONE K 786.2 cough 05/31/2008 MADJaylen PANEL MACHINE TENDER, MIGUEL L 564.1 IRRITABLE BOWEL SYNDROME 05/31/2008 MADJaylen PANEL MACHINE TENDER, MIGUEL L 786.2 cough 05/31/2008 CARLITA WAITE [...] APRN R 079.99 VIRAL SYNDROME 07/06/2008 ESTEE PANEL MACHINE TENDER, KATHY R 079.99 VIRAL SYNDROME 01/09/2009 MORA ROGESR DOEN F 461.9 SINUSITIS ACUTE 01/09/2009 YUMIKO [...] K 461.9 SINUSITIS ACUTE 01/09/2009 YUMIKO MORRIS, OWOD S 461.9 SINUSITIS ACUTE 01/09/2009 IRAHETA DOMARBINA [...] 729.5 foot pain (soft tissue) 06/09/2009 MADL PANEL MACHINE TENDER, MIGUEL L 477.9 ALLERGIC RHINITIS 06/09/2009 MADL PANEL MACHINE TENDER, MIGUEL L 729.5 foot pain (soft tissue) 06/09/2009 CARLITA WAITE MD 477.9 ALLERGIC RHINITIS 06/09/2009 CARLITA WAITE MD 729.5 foot pain (soft tissue) 06/09/2009 SEAN PANEL MACHINE TENDER, DAYANA R 477.9 ALLERGIC RHINITIS 06/09/2009 SEAN PANEL MACHINE TENDER, DAYANA R 729.5 foot pain (soft tissue) 06/09/2009 ESTEE HAIRSTONN, KATHY R 477.9 ALLERGIC RHINITIS 06/09/2009 ESTEE PANEL MACHINE TENDER, KATHY R 729.5 foot pain (soft tissue) [...] MD 461.1 SINUSITIS ACUTE FRONTAL 07/07/2009 SEAN PANEL MACHINE TENDER, DAYANA R 461.1 SINUSITIS ACUTE FRONTAL 07/07/2009 ESTEE PANEL MACHINE TENDER, KATHY R 461.1 SINUSITIS ACUTE FRONTAL 07/09/2009 [...] F 465.9 UPPER RESPIRATORY INFECTION 09/08/2009 YUMIKO PANEL MACHINE TENDER WOOD S 078.19 WARTS FOOT RIGHT 09/08/2009 YUMIKO PANEL MACHINE TENDER, WOOD S 465.9 UPPER RESPIRATORY INFECTION 09/08/2009 [...] K 465.9 UPPER RESPIRATORY INFECTION 09/08/2009 YUMIKO PANEL MACHINE TENDER, WOOD S 078.19 WARTS FOOT RIGHT 09/08/2009 YUMIKO PANEL MACHINE TENDER, WOOD S 465.9 UPPER RESPIRATORY INFECTION 09/08/2009 IRAHE[place] DO, BOONE K 078.19 WARTS FOOT RIGHT 09/08/2009 [place] DO, BOONE K 465.9 UPPER RESPIRATORY INFECTION 09/08/2009 MADL PANEL MACHINE TENDER, MIGUEL L 078.19 WARTS FOOT RIGHT 09/08/2009 MADL PANEL MACHINE TENDER, MIGUEL L 465.9 UPPER RESPIRATORY INFECTION 09/08/2009 RAVINDRA GLASER, CARLITA 078.19 WARTS FOOT RIGHT 09/08/2009 RAVINDRA GLASER, CARLITA 465.9 UPPER RESPIRATORY INFECTION 09/08/2009 SEAN PANEL MACHINE TENDER, DAYANA R 078.19 WARTS FOOT RIGHT 09/08/2009 SEAN PANEL MACHINE TENDER, DAYANA R 465.9 UPPER RESPIRATORY INFECTION 09/08/2009 ESTEE PANEL MACHINE TENDER, KATHY R 078.19 WARTS FOOT RIGHT 09/08/2009 ESTEE PANEL MACHINE TENDER, KATHY R 465.9 UPPER RESPIRATORY INFECTION 10/17/2009 [...] ROGERS DO 461.8 ACUTE PANSINUSITIS 02/25/2010 YUMIKO PANEL MACHINE TENDER, WOOD S 427.89 SINUS TACHYCARDIA 02/25/2010 YUMIKO PANEL MACHINE TENDER, WOOD S 427.9 CARDIAC DYSRHYTHMIA UNSPECIFIED 02/25/2010 YUMIKO PANEL MACHINE TENDER, WOOD S 461.8 ACUTE PANSINUSITIS 02/25/2010 TRUNG [...] MIGUEL L 427.89 SINUS TACHYCARDIA 02/25/2010 TOMYL PANEL MACHINE TENDER, MIGUEL L 461.8 ACUTE PANSINUSITIS 02/25/2010 CARLITA [...] CONGESTIVE HEART FAILURE 03/28/2010 TRUNG JADE, ERNESTO Cahtman 535.50 GASTRITIS 03/28/2010 IRAHETA DO, BOONE K [...] AND MEDICINES 04/19/2010 787.02 nausea 04/19/2010 MYRTLE DOMRABINA K 693.0 DERMATITIS DUE TO DRUGS AND [...] BOONE K 593.9 RENAL INSUFFICIENCY 10/14/2010 YUMIKO PANEL MACHINE TENDER, WOOD S 276.7 HYPERKALEMIA 10/14/2010 YUMIKO PANEL MACHINE TENDER, WOOD S 593.9 RENAL INSUFFICIENCY 10/14/2010 IRAHETA DO, BOONE K 276.7 HYPERKALEMIA 10/14/2010 [place] DO, BOONE K 593.9 RENAL INSUFFICIENCY 10/14/2010 MADL PANEL MACHINE TENDER, MIGUEL L 276.7 HYPERKALEMIA 10/14/2010 MADL PANEL MACHINE TENDER, MIGUEL L 593.9 RENAL INSUFFICIENCY 10/14/2010 CARLITA WAITE MD 276.7 HYPERKALEMIA 10/14/2010 CARLITA WAIET MD 593.9 RENAL INSUFFICIENCY 10/14/2010 SEAN HAIRSTONN, [...] UNSPECIFIED 04/16/2011 Ot 414.01 CORONARY ATHEROSCLEROSIS OF [place] CORON 04/16/2011 Ot 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 [...] CORONARY ATHEROSCLEROSIS OF UNSPECIFIED TYPE OF VESSEL [place] OR GRAFT 07/30/2011 CHIQUITA ROGERS DO V45.81 POSTSURGICAL AORTOCORONARY BYPASS STATUS 07/30/2011 WOOD CALDERON APRN S 272.4 DYSLIPIDEMIA 07/30/2011 WOOD CALDERON APRN S 414.00 CORONARY ATHEROSCLEROSIS OF UNSPECIFIED TYPE OF VESSEL [place] OR GRAFT 07/30/2011 WOOD CALDERON APRN S V45.81 POSTSURGICAL AORTOCORONARY BYPASS STATUS 07/30/2011 ERNESTO NINO PHD 272.4 DYSLIPIDEMIA 07/30/2011 TRUNG JADE, ERNESTO Chatman 414.00 CORONARY ATHEROSCLEROSIS OF UNSPECIFIED TYPE OF VESSEL [place] OR GRAFT 07/30/2011 ERNESTO NINO PHD V45.81 Postsurgical Aortocoronary Bypass Status 07/30/2011 BOONE IRAHETA DO K 272.4 DYSLIPIDEMIA 07/30/2011 BOONE IRAHE[place] DO K 414.00 CORONARY ATHEROSCLEROSIS OF UNSPECIFIED TYPE OF VESSEL [place] OR GRAFT 07/30/2011 BOONE IRAHETA DO K V45.81 Postsurgical Aortocoronary Bypass Status 07/30/2011 BOONE IRAHETA DO K 272.4 DYSLIPIDEMIA 07/30/2011 BOONE IRAHETA DO K 414.00 CORONARY ATHEROSCLEROSIS OF UNSPECIFIED TYPE OF VESSEL [place] OR GRAFT 07/30/2011 IRAHE[place] DO, BOONE K V45.81 Postsurgical Aortocoronary Bypass Status 07/30/2011 MYRTLE SPICER BOONE K 272.4 DYSLIPIDEMIA 07/30/2011 MYRTLE MARBIN SPICERA K 414.00 CORONARY ATHEROSCLEROSIS OF UNSPECIFIED TYPE OF VESSEL [place] OR GRAFT 07/30/2011 MYRTLE SPICER BOONE K V45.81 Postsurgical Aortocoronary Bypass Status 07/30/2011 272.4 DYSLIPIDEMIA 07/30/2011 414.00 CORONARY ATHEROSCLEROSIS OF UNSPECIFIED TYPE OF VESSEL [place] OR GRAFT 07/30/2011 V45.81 Postsurgical Aortocoronary Bypass Status 07/30/2011 272.4 DYSLIPIDEMIA 07/30/2011 414.00 CORONARY ATHEROSCLEROSIS OF UNSPECIFIED TYPE OF VESSEL [place] OR GRAFT 07/30/2011 V45.81 Postsurgical Aortocoronary Bypass Status 07/30/2011 272.4 DYSLIPIDEMIA 07/30/2011 414.00 CORONARY ATHEROSCLEROSIS OF UNSPECIFIED TYPE OF VESSEL [place] OR GRAFT 07/30/2011 V45.81 Postsurgical Aortocoronary Bypass Status 07/30/2011 272.4 DYSLIPIDEMIA 07/30/2011 414.00 CORONARY ATHEROSCLEROSIS OF UNSPECIFIED TYPE OF VESSEL [place] OR GRAFT 07/30/2011 V45.81 Postsurgical Aortocoronary Bypass Status 07/30/2011 MYRTLE SPICER BOONE K 272.4 DYSLIPIDEMIA 07/30/2011 IRAHETA MARBIN SPICERA K 414.00 CORONARY ATHEROSCLEROSIS OF UNSPECIFIED TYPE OF VESSEL [place] OR GRAFT 07/30/2011 IRAHETA MARBIN SPICERA K [...] V45.81 Postsurgical Aortocoronary Bypass Status 07/30/2011 ESTRADA PANEL MACHINE TENDER, DAYANA R 414.00 CORONARY ARTERY DISEASE 07/30/2011 ESTRADA PANEL MACHINE TENDER, DAYANA R V45.81 Postsurgical Aortocoronary Bypass Status [...] 428.0 Congestive Heart Failure Unspecified 02/18/2012 SEAN PANEL MACHINE TENDER, DAYANA R 428.0 Congestive Heart Failure Unspecified 02/18/2012 ESTEE PANEL MACHINE TENDER, KATHY R 428.0 Congestive Heart Failure Unspecified [...] FONTANEZ APRNINA R 461.9 SINUSITIS ACUTE 08/25/2013 MIGUEL LEW APRN L 724.3 SCIATICA 08/25/2013 CARLITA [...] WAITE MD Ot 414.01 CORONARY ATHEROSCLEROSIS OF [place] CORON 09/06/2013 CARLITA WAITE MD Ot 414.8 [...] 06/20/2015 Ot 414.01 06/20/2015 Ot 427.9 06/20/2015 SANDRO GLASER FACC, ALI FACP CCDS Ot 250.00 06/20/2015 SANDRO GLASER FACC, ALI FACP CCDS Ot 272.4 06/20/2015 SANDRO GLASER FACWilder, ALI FACP CCDS Ot 414.00 06/20/2015 SANDRO GLASER FACC, ALI FACP CCDS Ot 447.9 06/20/2015 SANDRO GLASER FACWilder, ALI FACP CCDS Ot 585.9 06/20/2015 SORAYA MARTINS Ot E11.65 TYPE 2 DIABETES MELLITUS WITH HYPERGLYCE 06/20/2015 SORAYA MARTINS Ot Z79.4 SNF (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 06/20/2015 SORAYA MARTINS Ot Z95.0 PRESENCE OF CARDIAC PACEMAKER 06/20/2015 SORAYA MARTINS Ot Z95.1 PRESENCE OF AORTOCORONARY BYPASS GRAFT 06/20/2015 BAIMA, BARRY L FOREST OFFICER Ot E78.5 06/20/2015 BAIMA, BARRY L FOREST OFFICER Ot I10 06/20/2015 BAIMA, BARRY L FOREST OFFICER Ot I25.10 06/20/2015 BAIMA, BARRY L FOREST OFFICER Ot Z95.0 06/21/2015 BAIMA, BARRY L FOREST OFFICER Ot E78.5 06/21/2015 BAIMA, BARRY L FOREST OFFICER Ot I10 06/21/2015 BAIMA, BARRY L FOREST OFFICER Ot I25.10 06/21/2015 BAIMA, BARRY L FOREST OFFICER Ot Z95.0 06/21/2015 SORAYA MARTINS Ot E11.65 06/21/2015 SORAYA MARTINS Ot Z79.4 06/21/2015 SORAYA MARTINS Ot Z95.0 06/21/2015 SORAYA MARTINS Ot Z95.1 06/22/2015 EVBARRY WHITTINGTON L FOREST OFFICER Ot E78.5 HYPERLIPIDEMIA, UNSPECIFIED 06/22/2015 BAIMA, BARRY L FOREST OFFICER Ot I10 ESSENTIAL (PRIMARY) HYPERTENSION 06/22/2015 BAIMA, BARRY L FOREST OFFICER Ot I25.10 ATHSCL HEART DISEASE OF [place] CORONARY 06/22/2015 BAIMA, BARRY L FOREST OFFICER Ot Z95.0 PRESENCE OF CARDIAC PACEMAKER 06/22/2015 BAIMA, BARRY L FOREST OFFICER Ot E78.5 HYPERLIPIDEMIA, UNSPECIFIED 06/22/2015 BAIMA, BARRY L FOREST OFFICER Ot I10 ESSENTIAL (PRIMARY) HYPERTENSION 06/22/2015 BAIMA, BARRY L FOREST OFFICER Ot I25.10 ATHSCL HEART DISEASE OF [place] CORONARY 06/22/2015 BAIMA, BARRY L FOREST OFFICER Ot Z95.0 PRESENCE OF CARDIAC PACEMAKER 11/26/2015 OTILIA DO ANDREW K Ot R11.0 NAUSEA 11/26/2015 OTILIA SPICER ANDREW K Ot 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9 ARTERIAL DISEASE NOS 09/25/2016 SANDRO GLASER FACC, ALI FACP CCDS Ot 585.9 CHRONIC KIDNEY DISEASE, UNSPECIFIED 09/25/2016 BARRY REYES L FOREST OFFICER Ot E78.5 HYPERLIPIDEMIA, UNSPECIFIED 09/25/2016 EVNELSY BARRY L FOREST OFFICER Ot I10 ESSENTIAL (PRIMARY) HYPERTENSION 09/25/2016 EVBARRY WHITTINGTON L FOREST OFFICER Ot I25.10 ATHSCL HEART DISEASE OF [place] CORONARY 09/25/2016 ERIC BARRY L FOREST OFFICER Ot Z95.0 PRESENCE OF CARDIAC PACEMAKER 09/25/2016 Ot 414.01 CORONARY ATHEROSCLEROSIS OF [place] CORON 09/25/2016 Ot 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 09/26/2016 Ot 414.01 CORONARY ATHEROSCLEROSIS OF [place] CORON 09/26/2016 Ot 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 09/26/2016 SANDRO GLASER FACC, ALI FACP CCDS Ot 250.00 DIAB [place] WO COMPL, TYPE II OR UNSPEC TY 09/26/2016 SANDRO GLASER FACC, ALI FACP CCDS Ot 272.4 HYPERLIPIDEMIA NEC/NOS 09/26/2016 SANDRO GLASER FACC, ALI FACP CCDS Ot 414.00 CORON ATHEROSCLER NOS TYPE VESSEL, NATIV 09/26/2016 SANDRO GLASER FACC, ALI FACP CCDS Ot 447.9 ARTERIAL DISEASE NOS 09/26/2016 SANDRO GLASER FACC, ALI FACP CCDS Ot 585.9 CHRONIC KIDNEY DISEASE, UNSPECIFIED 09/26/2016 EVBARRY WHITTINGTON FOREST OFFICER Ot E78.5 HYPERLIPIDEMIA, UNSPECIFIED 09/26/2016 EVBARRY WHITTINGTON L FOREST OFFICER Ot I10 ESSENTIAL (PRIMARY) HYPERTENSION 09/26/2016 EVNELSY BARRY L FOREST OFFICER Ot I25.10 ATHSCL HEART DISEASE OF [place] CORONARY 09/26/2016 BARRY REYES FOREST OFFICER Ot Z95.0 PRESENCE OF CARDIAC PACEMAKER 09/26/2016 CINDY THOMPSON MD Ot E11.9 TYPE 2 DIABETES MELLITUS WITHOUT COMPLIC 09/26/2016 CINDY THOMPSON MD Ot F20.9 SCHIZOPHRENIA, UNSPECIFIED 09/26/2016 CINDY THOMPSON MD Ot Z79.4 SNF (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 09/26/2016 CINDY THOMPSON MD Ot 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 09/26/2016 CINDY THOMPSON MD Ot Z79.899 OTHER FARM CONTRACTOR (CURRENT) DRUG THERAPY 09/26/2016 CINDY THOMPSON MD Ot Z95.0 PRESENCE OF CARDIAC PACEMAKER 09/26/2016 CINDY THOMPSON MD Ot Z95.1 PRESENCE OF AORTOCORONARY BYPASS GRAFT 09/26/2016 CINDY THOMPSON MD Ot E11.9 TYPE 2 DIABETES MELLITUS WITHOUT COMPLIC 09/26/2016 CINDY THOMPSON MD Ot F20.9 SCHIZOPHRENIA, UNSPECIFIED 09/26/2016 CINDY THOMPSON MD, Ot 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 09/26/2016 CINDY THOMPSON MD Ot Z79.82 SNF (CURRENT) USE OF ASPIRIN 09/26/2016 CINDY THOMPSON MD Ot Z79.899 OTHER FARM CONTRACTOR (CURRENT) DRUG THERAPY 09/26/2016 CINDY THOMPSON MD, Ot Z95.0 PRESENCE OF CARDIAC PACEMAKER 09/26/2016 CINDY THOMPSON MD Ot Z95.1 PRESENCE OF AORTOCORONARY BYPASS GRAFT 10/02/2016 Ot 414.01 CORONARY ATHEROSCLEROSIS OF [place] CORON 10/02/2016 Ot 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 10/02/2016 SANDRO GLASER FACC, ALI FACP CCDS Ot 250.00 DIAB [place] WO COMPL, TYPE II OR UNSPEC TY 10/02/2016 SANDRO GLASER FACC, ALI FACP CCDS Ot 272.4 HYPERLIPIDEMIA NEC/NOS 10/02/2016 ASNDRO GLASER FACC, ALI FACP CCDS Ot 414.00 CORON ATHEROSCLER NOS TYPE VESSEL, NATIV 10/02/2016 SANDRO GLASER FACC, ALI FACP CCDS Ot 447.9 ARTERIAL DISEASE NOS 10/02/2016 SANDRO GLASER FACC, ALI FACP CCDS Ot 585.9 CHRONIC KIDNEY DISEASE, UNSPECIFIED 10/02/2016 BARRY REYES FOREST OFFICER Ot E78.5 HYPERLIPIDEMIA, UNSPECIFIED 10/02/2016 BARRY REYES FOREST OFFICER Ot I10 ESSENTIAL (PRIMARY) HYPERTENSION 10/02/2016 BARRY REYES FOREST OFFICER Ot I25.10 ATHSCL HEART DISEASE OF [place] CORONARY 10/02/2016 BARRY REYES FOREST OFFICER Ot Z95.0 PRESENCE OF CARDIAC PACEMAKER 10/21/2016 [...] MD Ot I25.10 ATHSCL HEART DISEASE OF [place] CORONARY 10/21/2016 CINDY THOMPSON MD Ot 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 10/21/2016 CINDY THOMPSON MD, Ot N39.0 URINARY TRACT INFECTION, SITE NOT SPECIF 10/21/2016 CINDY THOMPSON MD, Ot R94.31 ABNORMAL ELECTROCARDIOGRAM [ECG] [EKG] 10/21/2016 CINDY THOMPSON MD, Ot Z79.4 SNF (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 10/21/2016 CINDY THOMPSON MD, Ot Z95.1 PRESENCE OF AORTOCORONARY BYPASS GRAFT 10/21/2016 CINDY THOMPSON MD, Ot Z95.810 PRESENCE OF AUTOMATIC (IMPLANTABLE) CARD 11/24/2016 BARRY REYES FOREST OFFICER Ot I25.10 ATHSCL HEART DISEASE OF [place] CORONARY 11/25/2016 SANDRO GLASER FACC, ALI FACP CCDS Ot 250.00 DIAB [place] WO COMPL, TYPE II OR UNSPEC TY 11/25/2016 SANDRO GLASER FACC, ALI FACP CCDS Ot 272.4 HYPERLIPIDEMIA NEC/NOS 11/25/2016 SANDRO GLASER FACC, ALI FACP CCDS Ot 414.00 CORON ATHEROSCLER NOS TYPE VESSEL, NATIV 11/25/2016 SANDRO GLASER FACC, ALI FACP CCDS Ot 447.9 ARTERIAL DISEASE NOS 11/25/2016 SANDRO GLASER FACC, ALI FACP CCDS Ot 585.9 CHRONIC KIDNEY DISEASE, UNSPECIFIED 11/25/2016 BARRY REYES FOREST OFFICER Ot E78.5 HYPERLIPIDEMIA, UNSPECIFIED 11/25/2016 BARRY REYES L FOREST OFFICER Ot I10 ESSENTIAL (PRIMARY) HYPERTENSION 11/25/2016 BARRY REYES L FOREST OFFICER Ot I25.10 ATHSCL HEART DISEASE OF [place] CORONARY 11/25/2016 BARRY REYES L FOREST OFFICER Ot Z95.0 PRESENCE OF CARDIAC PACEMAKER 11/25/2016 BARRY REYES L FOREST OFFICER Ot I25.10 ATHSCL HEART DISEASE OF [place] CORONARY 01/06/2017 BAIBARRY WHITTINGTON L FOREST OFFICER Ot E78.4 OTHER HYPERLIPIDEMIA 01/06/2017 BAIMA BARRY L FOREST OFFICER Ot I25.10 ATHSCL HEART DISEASE OF [place] CORONARY 01/06/2017 BAIMABARRY L FOREST OFFICER Ot I65.23 OCCLUSION AND STENOSIS OF [place] 01/06/2017 BAIMA BARRY L FOREST OFFICER Ot R26.89 OTHER ABNORMALITIES OF GAIT AND MOBILITY 01/06/2017 BAIMA BARRY L FOREST OFFICER Ot Z95.0 PRESENCE OF CARDIAC PACEMAKER 02/04/2017 BAIMA BARRY L FOREST OFFICER Ot I25.10 ATHSCL HEART DISEASE OF [place] CORONARY 02/04/2017 BAIMADUSTINBARRY L FOREST OFFICER Ot I65.23 OCCLUSION AND STENOSIS OF [place] 02/04/2017 BAIMABARRY L FOREST OFFICER Ot R06.09 OTHER FORMS OF DYSPNEA 02/12/2017 BAIMADUSTINBARRY L FOREST OFFICER Ot I25.10 ATHSCL HEART DISEASE OF [place] CORONARY 02/12/2017 BAIMADUSTINBARRY L FOREST OFFICER Ot I65.23 OCCLUSION AND STENOSIS OF [place] 02/12/2017 BAIMADUSTINBARRY L FOREST OFFICER Ot R06.09 OTHER FORMS OF DYSPNEA 02/16/2017 STEVEN VILLELA MD Ot E11.9 TYPE 2 DIABETES MELLITUS WITHOUT COMPLIC 02/16/2017 STEVEN VILLELA MD Ot F20.9 SCHIZOPHRENIA, UNSPECIFIED 02/16/2017 STEVEN VILLELA MD Ot F32.9 MAJOR DEPRESSIVE DISORDER, SINGLE EPISOD 02/16/2017 STEVEN VILLELA MD Ot F41.9 ANXIETY DISORDER, UNSPECIFIED 02/16/2017 STEVEN VILLELA MD Ot I25.10 ATHSCL HEART DISEASE OF [place] CORONARY 02/16/2017 STEVEN VILLELA MD Ot K02.9 DENTAL CARIES, UNSPECIFIED 02/16/2017 STEVEN VILLELA MD Ot K08.89 OTHER SPECIFIED DISORDERS OF TEETH AND S 02/16/2017 STEVEN VILLELA MD Ot 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 02/16/2017 STEVEN VILLELA MD Ot Z79.82 SNF (CURRENT) USE OF ASPIRIN 02/16/2017 STEVEN VILLELA MD Ot Z86.73 PRSNL HX OF TIA (TIA), AND CEREB INFRC W 02/16/2017 STEVEN VILLELA MD Ot Z90.710 ACQUIRED ABSENCE OF BOTH CERVIX AND UTER 02/16/2017 STEVEN VILLELA MD Ot Z95.0 PRESENCE OF CARDIAC PACEMAKER 02/16/2017 STEVEN VILLELA MD Ot Z95.1 PRESENCE OF AORTOCORONARY BYPASS GRAFT 02/25/2017 STEVEN VILLELA MD Ot E11.9 TYPE 2 DIABETES MELLITUS WITHOUT COMPLIC 02/25/2017 STEVEN VILLELA MD Ot F20.9 SCHIZOPHRENIA, UNSPECIFIED 02/25/2017 STEVEN VILLELA MD Ot F32.9 MAJOR DEPRESSIVE DISORDER, SINGLE EPISOD 02/25/2017 STEVEN VILLELA MD Ot F41.9 ANXIETY DISORDER, UNSPECIFIED 02/25/2017 STEVEN VILLELA MD Ot I25.10 ATHSCL HEART DISEASE OF [place] CORONARY 02/25/2017 STEVEN VILLELA MD Ot K02.9 DENTAL CARIES, UNSPECIFIED 02/25/2017 STEVEN VILLELA MD Ot K08.89 OTHER SPECIFIED DISORDERS OF TEETH AND S 02/25/2017 STEVEN VILLELA MD Ot 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 02/25/2017 STEVEN VILLELA MD Ot Z79.82 SNF (CURRENT) USE OF ASPIRIN 02/25/2017 STEVEN VILLELA MD Ot Z86.73 PRSNL HX OF TIA (TIA), AND CEREB INFRC W 02/25/2017 STEVEN VILLELA MD Ot Z90.710 ACQUIRED ABSENCE OF BOTH CERVIX AND UTER 02/25/2017 STEVEN VILLELA MD Ot Z95.0 PRESENCE OF CARDIAC PACEMAKER 02/25/2017 STEVEN VILLELA MD Ot Z95.1 PRESENCE OF AORTOCORONARY BYPASS GRAFT 02/26/2017 BARRY REYES FOREST OFFICER Ot 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 02/26/2017 BARRY REYES FOREST OFFICER Ot E66.9 OBESITY, UNSPECIFIED 02/26/2017 BARRY REYES FOREST OFFICER Ot F20.9 SCHIZOPHRENIA, UNSPECIFIED 02/26/2017 BARRY REYES FOREST OFFICER Ot F32.9 MAJOR DEPRESSIVE DISORDER, SINGLE EPISOD 02/26/2017 EVBARRY WHITTINGTON L FOREST OFFICER Ot I12.9 HYPERTENSIVE CHRONIC KIDNEY DISEASE W ST 02/26/2017 EVNELSY BARRY L FOREST OFFICER Ot I25.10 ATHSCL HEART DISEASE OF [place] CORONARY 02/26/2017 EVNELSY BARRY L FOREST OFFICER Ot I25.5 ISCHEMIC CARDIOMYOPATHY 02/26/2017 EVNELSY BARRY L FOREST OFFICER Ot I65.23 OCCLUSION AND STENOSIS OF [place] 02/26/2017 EVNELSY BARRY L FOREST OFFICER Ot 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 02/26/2017 ERIC BARRY L FOREST OFFICER Ot N18.2 CHRONIC KIDNEY DISEASE, STAGE 2 (MILD) 02/26/2017 BARRY REYES L FOREST OFFICER Ot Z68.30 BODY MASS INDEX (BMI) 30.0-30.9, ADULT 02/26/2017 ERIC BARRY L FOREST OFFICER Ot Z79.4 SNF (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 02/26/2017 BARRY REYES L FOREST OFFICER Ot Z79.899 OTHER FARM CONTRACTOR (CURRENT) DRUG THERAPY 02/26/2017 ERIC BARRY L FOREST OFFICER Ot Z95.1 PRESENCE OF AORTOCORONARY BYPASS GRAFT 02/26/2017 DUSTIN REYESHER L FOREST OFFICER Ot Z95.810 PRESENCE OF AUTOMATIC (IMPLANTABLE) CARD 03/02/2017 BARRY REYES FOREST OFFICER Ot 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 03/02/2017 EIRC BARRY L FOREST OFFICER Ot E66.9 OBESITY, UNSPECIFIED 03/02/2017 BARRY REYES L FOREST OFFICER Ot F20.9 SCHIZOPHRENIA, UNSPECIFIED 03/02/2017 ERIC BARRY L FOREST OFFICER Ot F32.9 MAJOR DEPRESSIVE DISORDER, SINGLE EPISOD 03/02/2017 EVNELSY BARRY Jaylen FOREST OFFICER Ot I12.9 HYPERTENSIVE CHRONIC KIDNEY DISEASE W ST 03/02/2017 ERIC BARRY L FOREST OFFICER Ot I25.10 ATHSCL HEART DISEASE OF [place] CORONARY 03/02/2017 EVNELSY BARRY L FOREST OFFICER Ot I25.5 ISCHEMIC CARDIOMYOPATHY 03/02/2017 ERIC BARRY L FOREST OFFICER Ot I65.23 OCCLUSION AND STENOSIS OF [place] 03/02/2017 ERIC BARRY L FOREST OFFICER Ot 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 03/02/2017 BARRY REYES FOREST OFFICER Ot N18.2 CHRONIC KIDNEY DISEASE, STAGE 2 (MILD) 03/02/2017 EVBARRY WHITTINGTON FOREST OFFICER Ot Z68.30 BODY MASS INDEX (BMI) 30.0-30.9, ADULT 03/02/2017 BARRY REYES FOREST OFFICER Ot 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 03/02/2017 EVBARRY WHITTINGTON FOREST OFFICER Ot Z79.899 OTHER SNF (CURRENT) DRUG THERAPY 03/02/2017 EVBARRY WHITTINGTON FOREST OFFICER Ot Z95.1 PRESENCE OF AORTOCORONARY BYPASS GRAFT 03/02/2017 EVBARRY WHITTINGTON FOREST OFFICER Ot Z95.810 PRESENCE OF AUTOMATIC (IMPLANTABLE) CARD 03/10/2017 EVBARRY WHITTINGTONP Ot E78.4 OTHER HYPERLIPIDEMIA 03/10/2017 EVBARRY WHITTINGTON FOREST OFFICER Ot I25.10 ATHSCL HEART DISEASE OF [place] CORONARY 03/10/2017 EVBARRY WHITTINGTON FOREST OFFICER Ot I25.5 ISCHEMIC CARDIOMYOPATHY 03/10/2017 EVBARRY WHITTINGTON FOREST OFFICER Ot N18.3 CHRONIC KIDNEY DISEASE, STAGE 3 (MODERAT Procedures Code Description Performed By Performed On [facility] 02/12/2012 61413 ROUTINE VENIPUNCTURE 02/18/2012 25522 MICRO ALBUMIN-IN HOUSE 02/18/2012 23908 ROUTINE VENIPUNCTURE 02/18/2012 16173 CMP 02/18/2012 87699 LIPID PANEL 02/18/2012 [id number] GFR CALC (RESULT ONLY) 02/18/2012 62667 DIGOXIN 02/19/2012 07250 CBC 02/19/2012 57318 A1C (RML) 02/20/2012 12859 INDIV PSYTX 45/50 MIN 02/25/2012 07495 ROUTINE VENIPUNCTURE 04/27/2012 18405 CBC 04/27/2012 63159 CMP 04/27/2012 2430046 GFR CALC (RESULT ONLY) 04/27/2012 Mikal Duncan 04/27/2012 62960 PSYTX PT&/FAMILY 45 MINUTES 04/28/2012 14686 A1C (IN-HOUSE) 05/19/2012 53664 HEMOCCULT 05/24/2012 05434 UA W/ CULTURE IF INDICATED 05/24/2012 36992 MAMMOGRAM, SCREENING 05/25/2012 81609 ROUTINE VENIPUNCTURE 06/23/2012 09324 CBC 06/23/2012 13590 CMP 06/23/2012 08596 LIPID PANEL 06/23/2012 5162347 GFR CALC (RESULT ONLY) 06/23/2012 42821 DIGOXIN 06/24/2012 13635 BNP 06/25/2012 69068 INDIV PSYTX 45/50 MIN 09/08/2012 Cardiolog Sandro, Ali 10/13/2012 78068 ROUTINE VENIPUNCTURE 10/13/2012 47408 CMP 10/13/2012 16394 LIPID PANEL 10/13/2012 85729 MAGNESIUM 10/13/2012 3499611 GFR CALC (RESULT ONLY) 10/13/2012 48117 DIGOXIN 10/13/2012 91381 ROUTINE VENIPUNCTURE 11/18/2012 37112 CMP 11/18/2012 73723 LIPID PANEL 11/18/2012 1979022 GFR CALC (RESULT ONLY) 11/18/2012 31631 DIGOXIN 11/18/2012 29054 ROUTINE VENIPUNCTURE 05/26/2013 87253 MICRO ALBUMIN-IN HOUSE 05/26/2013 17786 A1C (IN-HOUSE) 05/26/2013 96473 MICROALBUMIN 05/26/2013 3424611 GFR CALC (RESULT ONLY) 05/26/2013 82703 BMP 05/26/2013 42699 XRAY SI JOINTS LESS THAN 3 VIEWS 08/25/2013 70558 XRAY HIP RIGHT UNILATERAL MIN 2 VIEWS [...] culture - 09/25/16 21:50 Bacterial urine culture [id number] NRG COLONY COUNT 10,000/ML - 100,000/ML NRG FTX;REPORTABLE SENSITIVITY REPORTED 09/28 10:40 NRG FREE TEXT ENTRY 3 MIXED GRAM POSITIVE JACQUELYN NRG Bacterial susceptibility panel - 09/25/16 21:50 Gentamicin [...] susceptibility test by minimum inhibitory concentration - [facility] Urine drug screening test - 10/20/16 22:49 [...] - 10/21/16 05:05 Digoxin 0.65 ng/mL 0.80-2.00 Automated blood complete blood count (hemogram) panel - 02/24/17 08:22 Blood leukocytes automated count (number/volume) 7.6 10*3/uL 4.3-11.0 Blood erythrocytes automated count (number/volume) 4.24 10*6/uL 4.35-5.85 Venous blood hemoglobin measurement (mass/volume) 12.4 g/dL 11.5-16.0 Blood hematocrit (volume fraction) 37 % 35-52 Automated erythrocyte mean corpuscular volume 87 [foz_us] 80-99 Automated erythrocyte mean corpuscular hemoglobin (mass per erythrocyte) 29 pg 25-34 Automated erythrocyte mean corpuscular hemoglobin concentration measurement ( mass/volume) 34 g/dL 32-36 Automated erythrocyte distribution width ratio 13.0 % 10.0-14.5 Automated blood platelet count (count/volume) 198 10*3/uL 130-400 Automated blood platelet mean volume measurement 9.2 [foz_us] 7.4-10.4 Comprehensive metabolic panel - 02/24/17 08:22 Serum or plasma sodium measurement (moles/volume) 138 mmol/L 135-145 Serum or plasma potassium measurement (moles/volume) 4.8 mmol/L 3.6-5.0 Serum or plasma chloride measurement (moles/volume) 107 mmol/L 98-107 Carbon dioxide 22 mmol/L 21-32 Serum or plasma anion gap determination (moles/volume) 9 mmol/L 5-14 Serum or plasma urea nitrogen measurement (mass/volume) 26 mg/dL 7-18 Serum or plasma creatinine measurement (mass/volume) 1.38 mg/dL 0.60-1.30 Serum or plasma urea nitrogen/creatinine mass ratio 19 NRG Serum or plasma creatinine measurement with calculation of estimated glomerular filtration rate 38 NRG Serum or plasma glucose measurement (mass/volume) 258 mg/dL 70-105 Serum or plasma calcium measurement (mass/volume) 9.1 mg/dL 8.5-10.1 Serum or plasma total bilirubin measurement (mass/volume) 0.3 mg/dL 0.1-1.0 Serum or plasma alkaline phosphatase measurement (enzymatic activity/volume) 143 U/L 40-136 Serum or plasma aspartate aminotransferase measurement (enzymatic activity/ volume) 16 U/L 5-34 Serum or plasma alanine aminotransferase measurement (enzymatic activity/volume ) 26 U/L 0-55 Serum or plasma protein measurement (mass/volume) 7.1 g/dL 6.4-8.2 Serum or plasma albumin measurement (mass/volume) 3.9 g/dL 3.2-4.5 Lipid 1996 panel - 02/24/17 08:22 Serum or plasma triglyceride measurement (mass/volume) 185 mg/dL <150 Serum or plasma cholesterol measurement (mass/volume) 203 mg/dL < 200 Serum or plasma cholesterol in HDL measurement (mass/volume) 44 mg/ dL 40-60 Cholesterol in LDL [mass/volume] in serum or plasma by direct assay 129 mg/dL 1-129 Serum or plasma cholesterol in VLDL measurement (mass/volume) 37 mg/ dL 5-40 PT panel in platelet poor plasma by coagulation assay - 02/24/17 08:22 Prothrombin time (PT) in platelet poor plasma by coagulation assay 14.0 s 12.2-14.7 INR in platelet poor plasma or blood by coagulation assay 1.1 0.8-1.4 Activated partial thromboplastin time (aPTT) in platelet poor plasma bycoagulation assay - 02/24/17 08:22 Activated partial thromboplastin time (aPTT) in platelet poor plasma bycoagulation assay 28 s 24-35 Methicillin resistant Staphylococcus aureus (MRSA) screening culture - 08:22 MRSA SCREEN RESULT MRSA ISOLATED NRG Capillary blood glucose measurement by glucometer (mass/volume) - 02/24/17 18: 22 Capillary blood glucose measurement by glucometer (mass/volume) 124 mg/dL 70-110 Automated blood complete blood count (hemogram) panel - 02/25/17 04:53 Blood leukocytes automated count (number/volume) 6.5 10*3/uL 4.3-11.0 Blood erythrocytes automated count (number/volume) 3.61 10*6/uL 4.35-5.85 Venous blood hemoglobin measurement (mass/volume) 10.6 g/dL 11.5-16.0 Blood hematocrit (volume fraction) 32 % 35-52 Automated erythrocyte mean corpuscular volume 88 [foz_us] 80-99 Automated erythrocyte mean corpuscular hemoglobin (mass per erythrocyte) 29 pg 25-34 Automated erythrocyte mean corpuscular hemoglobin concentration measurement ( mass/volume) 33 g/dL 32-36 Automated erythrocyte distribution width ratio 13.1 % 10.0-14.5 Automated blood platelet count (count/volume) 184 10*3/uL 130-400 Automated blood platelet mean volume measurement 9.5 [foz_us] 7.4-10.4 Whole blood basic metabolic panel - 02/25/17 04:53 Serum or plasma sodium measurement (moles/volume) 139 mmol/L 135-145 Serum or plasma potassium measurement (moles/volume) 5.1 mmol/L 3.6-5.0 Serum or plasma chloride measurement (moles/volume) 110 mmol/L 98-107 Carbon dioxide 22 mmol/L 21-32 Serum or plasma anion gap determination (moles/volume) 7 mmol/L 5-14 Serum or plasma urea nitrogen measurement (mass/volume) 22 mg/dL 7-18 Serum or plasma creatinine measurement (mass/volume) 1.05 mg/dL 0.60-1.30 Serum or plasma urea nitrogen/creatinine mass ratio 21 NRG Serum or plasma creatinine measurement with calculation of estimated glomerular filtration rate 52 NRG Serum or plasma glucose measurement (mass/volume) 157 mg/dL 70-105 Serum or plasma calcium measurement (mass/volume) 8.2 mg/dL 8.5-10.1 Digoxin - 02/25/17 04:53 Digoxin 0.49 ng/mL 0.80-2.00 Encounters ACCT No. Visit Date/Time Discharge Status Pt. Type Provider Facility Loc./Unit Complaint [id number] 03/16/2014 15:41:00 03/16/2014 23:59:59 CLS Outpatient KATHY FONTANEZ APRN [id number] 11/16/2013 14:20:00 11/16/2013 23:59:59 CLS Outpatient ESTRADA DAYANA MORRIS Gage [id number] 09/26/2013 17:01:00 09/26/2013 23:59:59 CLS Outpatient CARLITA WAITE MD [id number] 08/25/2013 15:02:00 08/25/2013 23:59:59 CLS Outpatient MIGUEL LEW APRN [id number] 06/25/2013 13:11:00 06/25/2013 23:59:59 CLS Outpatient BOONE IRAHETA DO [id number] 05/26/2013 10:59:00 05/26/2013 23:59:59 CLS Outpatient WOOD CALDERON APRN [id number] 11/18/2012 10:09:00 11/18/2012 23:59:59 CLS Outpatient BOONE IRAHETA DO [id number] 05/24/2012 13:54:00 05/24/2012 23:59:59 CLS Outpatient BOONE IRAHETA DO Belinda [id number] 05/10/2012 14:28:00 05/10/2012 23:59:59 CLS Outpatient BOONE IRAHETA DO [id number] 04/27/2012 13:46:00 04/27/2012 23:59:59 CLS Outpatient BOONE IRAHETA DO [id number] 02/25/2012 16:14:00 02/25/2012 23:59:59 CLS Outpatient ERNESTO NINO PHD [id number] 02/18/2012 14:57:00 02/18/2012 23:59:59 CLS Outpatient WOOD CALDERON APRN [id number] 12/24/2011 13:52:00 12/24/2011 23:59:59 CLS Outpatient KEN CHIQUITA SPICER Luis [id number] 10/13/2012 08:44:00 Document Registration [id number] 09/07/2012 14:15:00 Document Registration [id number] 08/16/2012 14:07:00 Document Registration [id number] 06/23/2012 09:34:00 Document Registration [id number] 03/04/2017 15:30:00 03/04/2017 23:59:59 CLS Outpatient BARRY REYES [facility] LAB I25.10, N18.3, I25.5 , E78.4 [id number] 02/24/2017 08:00:00 02/25/2017 10:30:00 DIS Outpatient BAIMA, BARRY L FOREST OFFICER [facility] CATH CAD,CAROTID ARTERIAL DISEASE [id number] 02/16/2017 05:23:00 02/16/2017 05:55:00 DIS Emergency STEVEN VILLELA MD [facility] ER GEN PAIN TOOTH PAIN [id number] 02/03/2017 07:24:00 02/03/2017 23:59:59 CLS Outpatient BAIMA BARRY L FOREST OFFICER [facility] CARD CAD [id number] 12/02/2016 08:30:00 12/02/2016 23:59:59 CLS Preadmit BAIMA, BARRY L FOREST OFFICER [facility] CARD CAD [id number] 11/25/2016 13:12:00 11/25/2016 23:59:59 CLS Outpatient BAIMA BARRY L FOREST OFFICER [facility] RAD CAD [id number] 10/21/2016 00:45:00 10/21/2016 15:00:00 DIS Inpatient CINDY THOMPSON MD [facility] 4TH UTI,ENCEPHALOPATHY, HYPONATREMIA [id number] 10/07/2016 12:00:00 10/07/2016 23:59:59 CLS Preadmit SANDRO GLASER FACC, TRAY TURCIOS CCDS [facility] CARD R26.89 CLAUDICATION [id number] 09/25/2016 23:10:00 09/26/2016 11:15:00 DIS Inpatient CINDY THOMPSON MD [facility] 4TH SCHIZOPHRENIA,UTI, ALTERED MENTAL STATUS [id number] 11/26/2015 06:48:00 11/26/2015 08:11:00 DIS Emergency ANDREW BINGHAM DO K [facility] ER NAUSEA [id number] 06/20/2015 08:47:00 06/20/2015 23:59:59 CLS Outpatient BAIMA BARRY L FOREST OFFICER [facility] RAD CAD,HTN,HLP [id number] 06/20/2015 10:53:00 06/20/2015 13:55:00 DIS Emergency SORAYA MARTINS [facility] ER HIGH BLOOD SUGAR [id number] 06/30/2014 16:07:00 06/30/2014 23:59:59 CLS Outpatient SANDRO GLASER FACC, TRAY TURCIOS CCDS [facility] LAB CAD,ISCHEMIC HEART DISEASE,CAROTID ARTERIAL DISEAS [id number] 09/05/2013 12:06:00 09/06/2013 12:38:00 DIS Inpatient CARLITA WAITE MD [facility] ICU SYNCOPE HYPERKALEMIA RENAL INSUFFICIENCY [id number] 09/24/2012 11:31:00 09/24/2012 14:53:00 DIS Emergency MAKENNA ODEN MD [facility] ER FELL L BACK PAIN [id number] 09/18/2012 11:29:00 09/18/2012 23:59:59 CLS Outpatient [id number] 08/16/2012 17:15:00 08/17/2012 14:53:00 DIS Inpatient CARLITA WAITE MD [facility] CSD SYNCOPYE,CP, HYPOMAGNESEMIA [id number] 07/20/2012 18:04:00 07/20/2012 23:59:59 CLS Outpatient [id number] 03/24/2017 11:00:00 PEN Preadmit SANDRO GLASER FACC, TRAY TURCIOS CCDS [facility] CATH CAD,ISCHEMIC CM [id number] 05/14/2014 18:01:00 Document Registration [id number] 01/14/2012 19:48:00 Document Registration [id number] 05/06/2011 03:25:00 Document Registration [id number] 04/17/2011 11:00:00 Document Registration [id number] 01/29/2011 09:53:00 Document Registration [id number] 01/28/2011 14:09:00 Document Registration [id number] 01/21/2011 15:15:00 Document Registration [id number] 01/16/2011 10:30:00 Document Registration [id number] 12/02/2010 13:54:00 Document Registration [id number] 09/18/2010 09:32:00 Document Registration [id number] 06/05/2010 19:49:00 Document Registration [id number] 05/31/2010 11:02:00 Document Registration [id number] 05/23/2010 09:27:00 Document Registration [id number] 05/20/2010 10:00:00 Document Registration [id number] 05/18/2010 09:49:00 Document Registration [id number] 05/16/2010 14:29:00 Document Registration [id number] 05/07/2010 15:08:00 Document Registration [id number] 04/25/2010 07:50:00 Document Registration [id number] 03/11/2010 16:05:00 Document Registration [id number] 02/07/2010 10:51:00 Document Registration
[2017-03-24] MEDS ORDERED: HEParin (CATH LAB) 2,000 ML IV ONE (07:59)
[2017-03-24] MEDS ORDERED: NS IV 1000 ML 1,000 ML ONE (07:59)
[2017-03-24] MEDS ORDERED: LIDOCAINE 1% INJ 50 ML (XYLOCAINE) VIAL ONE (07:59)
[2017-03-24 08:21] LABS: HEMOGLOBIN 13.1 G/DL (11.5-16.0); MEAN PLATELET VOLUME 10.2 FL (7.4-10.4); RED BLOOD COUNT 4.45 10^6/uL (4.35-5.85); RED CELL DISTRIBUTION WIDTH 12.9 % (10.0-14.5); WHITE BLOOD COUNT 8.6 10^3/uL (4.3-11.0)
[2017-03-24] MEDS ORDERED: NS IV 1000 ML 1,000 ML IV SCH (08:30)
[2017-03-24 08:39] LABS: PROTHROMBIN TIME PATIENT 13.2 SEC (12.2-14.7)
[2017-03-24 08:42] LABS: ALBUMIN 4.2 GM/DL (3.2-4.5); BILIRUBIN,TOTAL 0.4 MG/DL (0.1-1.0); CALCIUM 9.6 MG/DL (8.5-10.1); CREATININE SERUM 1.47 MG/DL (0.60-1.30); POTASSIUM 4.9 MMOL/L (3.6-5.0); TOTAL PROTEIN 7.8 GM/DL (6.4-8.2)
[2017-03-24] MEDS ORDERED: INFLUENZA TRIvalent 2017-2018 0.5 ML/45 MCG SYR IM ONE (08:45)
[2017-03-24 08:48] LABS: DIGOXIN 0.56 NG/ML (0.80-2.00)
--- NOTE | 2017-03-24 09:10 | Cardiac Procedure Note-CS/ASA ---
Pre-Procedure Note Pre-Op Procedure Note H&P Reviewed The H&P was reviewed, patient examined and no changes noted. Date H&P Reviewed: Mar 24, 2017 Time H&P Reviewed: 09:10 Conscious Sedation Pre-Proced Time Reviewed: 09:10 ASA Class: 3 Airway Mallampati Classification: ([place] appropriate class) I. II. III, IV Lungs Heart ASA score ASA 1: a normal healthy patient ASA 2: a patient with a mild systemic disease (mid diabetes, controlled hypertension, obesity ASA 3: a patient with a severe systemic disease that limits activity (angina , COPD, prior Myocardial infarction) ASA 4: a patient with an incapacitating disease that is a constant threat to life (CHF, renal failure) ASA 5: a moribund patient not expected to survive 24 hrs. (ruptured aneurysm) ASA 6: a declared brain patient whose organs are being harvested. For emergent operations, add the letter E after the classification Grade 2 Sedation Plan: Analgesia, Amnesia, Plan communicated to team members, Discussed options with patient/fam, Discussed risks with patient/fam Note The patient is an appropriate candidate to undergo the planned procedure, sedation, and anesthesia. The patient immediately re-assessed prior to indication. TRAY VARMA MD FACP FACC CCDS Mar 24, 2017 09:10
[2017-03-24] MEDS ORDERED: fentaNYL INJECTION 100 MCG/2 ML AMP ONE (10:22)
[2017-03-24] MEDS ORDERED: MIDAZOLAM 5 MG/5 ML (VERSED) VIAL ONE (10:22)
[2017-03-24] MEDS ORDERED: diphenhydrAMINE 50 MG/ML INJ (BENADRYL) ONE (10:22)
[2017-03-24] MEDS ORDERED: HEParin 1000 UNIT/ML (10ML VIAL) FOR BOLUS ONE (10:39)
[2017-03-24] MEDS ORDERED: NITROGLYCERIN DRIP 25 MG/D5W 250 ML IV ONE (10:44)
[2017-03-24] MEDS ORDERED: EPTIFIBATIDE BOLUS 20 ML IV ONE (11:22)
[2017-03-24] MEDS ORDERED: meTOprolol 5 MG/5 ML (LOPRESSOR) VIAL ONE (12:10)
[2017-03-24] MEDS ORDERED: CLOPIDOGREL 300 MG (PLAVIX) TABLET PO ONE (12:12)
[2017-03-24] MEDS ORDERED: ASPIRIN 81 MG CHEW (CHILDREN'S ASA) ONE (12:12)
[2017-03-24] MEDS ORDERED: PATIENT MAY USE OWN MEDS, ALL PO SCH (12:45)
[2017-03-24] MEDS ORDERED: ACETAMINOPHEN 500 MG TAB (TYLENOL) PO PRN (13:00)
[2017-03-24] MEDS ORDERED: NON-FORMULARY MEDICATION 1 EA EA (Diphenhydramine HCl (Benadryl) 25 MG) PO PRN (13:00)
[2017-03-24] MEDS: NS IV 1000 ML 1,000 ML IV SCH ×2 (13:18→23:06)
[2017-03-24] MEDS ORDERED: diphenhydrAMINE 25 MG TAB (BENADRYL) PO PRN (13:45)
--- NOTE | 2017-03-24 13:49 | CARDIAC CATHETERIZATION ---
DATE OF SERVICE: 03/24/2017 The patient is a 66-year-old lady who is known to have coronary artery disease and coronary artery bypass surgery. On 02/24/2017, she was found to have severe [place] coronary artery disease. She had a patent left internal mammary artery graft to left anterior descending artery, and left anterior descending artery was found to be of a small caliber and occluded in its distal portion. She had severe disease of the mid right coronary artery, which had not been bypassed. To this, she underwent stenting with Alpine Xience 3.0 x 30 mm stent with reduction of stenosis to 0% residual. She had an occluded obtuse marginal, which had a patent saphenous vein graft, but the obtuse marginal itself had approximately 80% mid vessel stenosis. That was not intervened on at that time. Following stenting of the right coronary artery, symptoms improved, but have not resolved. She was continued to have shortness of breath. Today, she comes in for percutaneous intervention to the obtuse marginal through the graft. Informed consent was obtained. She was made aware of risks, including risk of contrast nephropathy, given baseline renal insufficiency. Vigorous perioperative hydration was carried out before and during the procedure and is to be continued after the procedure. PROCEDURE: She is brought to the cardiac catheterization laboratory in a fasting state. Right groin was prepared and draped in the usual sterile fashion. A 1% lidocaine for local anesthesia. Modified Seldinger technique was used to advance a 6-Indonesian sheath into the right femoral artery. We used several guide catheters to engage the aortocoronary graft to the obtuse marginal branch of the left circumflex artery. None of the guides were providing adequate support to maintain wire and advanced a coronary balloon. Finally, with a 6-Indonesian Darvin Mulligan guide, we were able to maintain adequate engagement. We were able to advance a ChoICE floppy wire across the lesion in the mid portion of the obtuse marginal and the tip was placed in the distal vessel. We carried out balloon angioplasty with Emerge 2.0 x 15 mm balloon, which reduced the stenosis from approximately 90% to approximately 70% with a small contained dissection. We then advanced an Alpine Xience 2.25 x 12 mm stent. This was carefully positioned to cover the entire lesion and the stent was deployed at 10 atmospheres. Subsequent angiography revealed 0% residual stenosis. There is no significant residual dissection. Flow throughout the vessel was normal. She tolerated the procedure well. During the procedure, she received 700 mcg of intracoronary nitroglycerin in divided doses. She received a double bolus of Integrilin. She received 5,500 units of intravenous heparin. At the end of the procedure, angiography of the femoral artery was carried out through the sheath and Mynx was used to achieve hemostasis. AORTOCORONARY GRAFT ANGIOGRAPHY AND INTERVENTION Angiography of the saphenous vein graft to the obtuse marginal showed that the obtuse marginal had approximately 80% to 90% mid vessel stenosis, to which successful balloon angioplasty and stenting was carried out. Following deployment of Alpine Xience 2.25 x 12 mm stent, there is no significant residual stenosis and flow throughout the vessel is normal. CONCLUSIONS: A 80% to 90% mid vessel stenosis of an obtuse marginal branch, distal to insertion of an aortocoronary graft. This was successfully intervened on. Following deployment of 2.25 x 12 mm Alpine Xience stent, there is 0% residual stenosis. Job ID: [id number] DocumentID: [id number] Dictated Date: 03/24/2017 12:26:49 Template Maker Date: 03/24/2017 13:48:48 Dictated By: TRAY VARMA MD, MA, FACP, FACC, MTDD
[2017-03-24] MEDS: inSUlin ASPART (NovoLOG) 1 UNIT/0.01 ML (CHARGE PER UNIT) SC SCH (16:59)
[2017-03-24] MEDS ORDERED: inSUlin DETERMIR 1000 UNITS/10 ML VIAL (LEVEMIR) SQ SCH (21:00)
[2017-03-24] MEDS ORDERED: NON-FORMULARY MEDICATION 1 EA EA (Lurasidone HCl (Latuda) 80 MG) PO SCH (21:00)
[2017-03-24] MEDS ORDERED: ATORVASTATIN 40 MG (LIPITOR) TABLET PO SCH (21:00)
[2017-03-24] MEDS: CARVEDILOL 12.5 MG (COREG) TABLET PO SCH (21:13)
[2017-03-24] MEDS: inSUlin DETERMIR 1 UNIT/0.01 ML (LEVEMIR) CHARGE PER UNIT SQ SCH (21:13)
[2017-03-25 00:01] VITALS: BP 143/65
[2017-03-25 03:35] VITALS: BP 156/71
[2017-03-25] MEDS: inSUlin ASPART (NovoLOG) 1 UNIT/0.01 ML (CHARGE PER UNIT) SC SCH (06:10)
[2017-03-25 06:40] LABS: HEMOGLOBIN 11.3 G/DL (11.5-16.0); MEAN PLATELET VOLUME 10.2 FL (7.4-10.4); RED BLOOD COUNT 3.82 10^6/uL (4.35-5.85); RED CELL DISTRIBUTION WIDTH 13.2 % (10.0-14.5); WHITE BLOOD COUNT 6.1 10^3/uL (4.3-11.0)
[2017-03-25 06:57] LABS: CALCIUM 8.5 MG/DL (8.5-10.1); CREATININE SERUM 1.2 MG/DL (0.60-1.30); POTASSIUM 5.4 MMOL/L (3.6-5.0)
[2017-03-25] MEDS ORDERED: MULTIVIT W/MINERALS TAB (THERAGRAN M) PO SCH (07:00)
[2017-03-25 08:00] VITALS: BP 120/70
[2017-03-25] MEDS: CARVEDILOL 12.5 MG (COREG) TABLET PO SCH (08:13)
[2017-03-25] MEDS: PHENAZOPYRIDINE 100 MG (PYRIDIUM) TABLET PO SCH ×2 (08:13→08:20)
[2017-03-25] MEDS: inSUlin DETERMIR 1 UNIT/0.01 ML (LEVEMIR) CHARGE PER UNIT SQ SCH (08:14)
--- NOTE | 2017-03-25 08:21 | Progress Note-Cardiology ---
Cardiology SOAP Progress Note Subjective: Sitting up in a chair at the bedside. No c/o CP, dyspnea, palpitations. No c/ o right groin discomfort. Objective: I&O/Vital Signs Vital Sign - Last 12Hours 03/25/17 03/25/17 03/25/17 03/25/17 01:00 03:35 07:00 08:00 Temp 98.1 97.7 Pulse 70 70 69 71 Resp 20 20 B/P (MAP) 156/71 (99) 120/70 (87) Pulse Ox 97 100 O2 Delivery Room Air Room Air 03/25/17 11:25 Pulse 71 Resp 20 B/P (MAP) 120/70 Pulse Ox 100 O2 Delivery Room Air Intake and Output 03/25/17 00:00 Intake Total 880 ml Balance 880 ml Weight (Pounds): 177 Weight (Ounces): 0.0 Weight (Calculated Kilograms): 80.712449 Side: right Groin site without hematoma: Yes Condition: DP/PT pulses palpable, extremity w/d/p Bruising: mild bruising Constitutional: AAO x 3 Respiratory: No accessory muscle use, No respiratory distress, chest expansion is symmetric, chest is bilaterally symmetric, lungs clear to auscultation Cardiovascular: regular rate-rhythm, No JVD, S1 and S2 Gastrointestional: No tender, soft, audible bowel sounds Extremities: No significant edema Neurologic/Psychiatric: grossly intact Skin: No rash Results/Procedures: Labs Laboratory Tests 03/24/17 16:33: Glucometer 219H 03/24/17 20:04: Glucometer 226H 03/25/17 05:20: White Blood Count 6.1, Red Blood Count 3.82L, Hemoglobin 11.3L, Hematocrit 34L, Mean Corpuscular Volume 88, Mean Corpuscular Hemoglobin 30, Mean Corpuscular Hemoglobin Concent 34, Red Cell Distribution Width 13.2, Platelet Count 142, Mean Platelet Volume 10.2, Sodium Level 136, Potassium Level 5.4H, Chloride Level 104, Carbon Dioxide Level 23, Anion Gap 9, Blood Urea Nitrogen 19H, Creatinine 1.20, Estimat Glomerular Filtration Rate 45, BUN/Creatinine Ratio 16 , Glucose Level 223H, Calcium Level 8.5 03/25/17 05:33: Glucometer 244H 03/25/17 08:35: Potassium Level 4.4 1/17/18 11:06: Glucometer 183H Laboratory Tests 03/24/17 08:12 03/25/17 05:20 03/25/17 08:35 Procedures S/P cardiac cath with successful intervention. Please refer to Dr. Jo's cardiac cath report for details. A/P: Assessment: CAD with a h/o CABG in 2004. S/p RCA stenting on 02/24/17 with Alp Xience 3x30, and LCX-OM stenting (through OM graft) on 03/24/17 with Alp Xience 2.25x12; GARCIA ot LAD is patent but LAD is small and occluded in its distal portion Cardiac cath details. Cardiac cath of 02-24-17: Severe [place] coronary artery disease consisting of 70% ostial stenosis of the left main coronary artery, 99% to 100% stenosis of the mid left anterior descending artery, occlusion of the proximal left circumflex artery and severe mid vessel stenosis of the right coronary artery. The severe mid vessel stenosis of the right coronary artery was treated with Alpine Xience 3.0 x 30 mm stent, which reduced the stenosis to 0% residual. The right coronary artery also has 50% ostial stenosis. Patent aortocoronary graft to an obtuse marginal artery, but the obtuse marginal artery , distal to the stent, has an 80% stenosis and is a relatively small caliber vessel. Patent left internal mammary artery graft to the mid left anterior descending artery, but the left anterior descending artery is of a small caliber and is occluded in its distal portion. Elevated left ventricular end- diastolic pressure. Cardiac cath of 03-24-17: Angiography of the saphenous vein graft to the obtuse marginal showed that the obtuse marginal had approximately 80% to 90% mid vessel stenosis, to which successful balloon angioplasty and stenting was carried out. Following deployment of Alpine Xience 2.25 x 12 mm stent, there is no significant residual stenosis and flow throughout the vessel is normal. H/o CKD, stage 2-3. Creatinine stable/improved after card cath of 03/24/17 Abnormal stress test. MPI of 02/03/17: small to mod anteroseptal ischemia, no RWMA, LVEF 62% Syncope in August 2013 that was due to postural hypotension due to dehydration. No recurrence since DM II Hypertension H/o ischemic cardiomyopathy but most recent echo of June 2015 is reported to have shown LVEF 55-60% and mild MR & TR; and PASP of 30-35 mmHg Pacemaker/defib implantation in Apr 2010, functioning normally on interrogation carried out on 11-19-16 Abnormal ECG. ECG on 08/20/16 shows paced atrial rhythm, [place] vent rhythm with diffuse repol abnormality (unchanged from previous ECG) Chronically abnormal ECG Carotid arterial disease with h/o R CEA by Dr Rosales in the , according to the patient. Carotid u/s of June 2015: mild bilat plaque of 0-40% Intermittent non-compliance with medical instructions HLP - followed by her PCP Hyperthryoidism per lab of June 2014 - followed by her PCP H/o emilie in the . She has had some speech impairment since then. Has recovered from R-sided weakness Bilateral leg discomfort - segmental pressures of November 2016 is non- diagnostic d/t noncompressibility of the leg vessels. Waveforms however, appear to be good H/o schizophrenia Plan: S/P successful coronary intervention (please see above) on 03-24-17 Lab from this morning showed hyperkalemia; however repeat lab shows potassium WNL Continue current medication regimen including ASA, statin, BB, Plavix, DONTAE and Dig Discussed importance of medication compliance Previously she had stated she can not tolerate statin tx; however she feels she is able to tolerate current statin without difficulty Out pt f/u in a week Physician Assessment Physician Assessment Feels well. Somewhat tired, but no cp or palp or syncope or shortness of breath or leg/groin discomfort Lungs: clear Cor: reg Ext: no c/c/e; mild bruising at access site for card cath A&R * As documented in our note above that I updated (italics) and as noted below * I had a long conversation with her. I explained the interventions undertaken and future plans * Focus of CV management is on risk factor modification which was discussed and recommended in detail today * Outpatient f/u is advised * I answered her questions in detail BARRY REYES Mar 25, 2017 08:21 TRAY JO MD FACP [facility] Mar 25, 2017 12:17
--- NOTE | 2017-03-25 08:56 | Discharge Inst-Cardiology ---
Discharge Inst-Cardiac Discharge Medications Continued Medications: Acetaminophen (Acetaminophen) 500 Mg Tablet 1000 MG PO Q6H PRN for PAIN-MILD, TAB TAKES 2 (500 MG) TABLETS Aspirin (Aspirin EC) 81 Mg Tablet.dr 0 MG PO DAILY, #90 TAB 5 Refills Atorvastatin Calcium (Lipitor) 40 Mg Tablet 40 MG PO HS, #30 TAB 5 Refills Carvedilol (Carvedilol) 12.5 Mg Tablet 12.5 MG PO BID, TAB Clopidogrel Bisulfate (Clopidogrel) 75 Mg Tablet 75 MG PO DAILY, #90 TAB 3 Refills Digoxin (Digoxin) 125 Mcg Tablet 125 MCG PO DAILY, TAB Diphenhydramine HCl (Benadryl) 25 Mg Capsule 25 MG PO HS PRN for CONGESTION, CAP Enalapril Maleate (Enalapril Maleate) 20 Mg Tablet 20 MG PO DAILY, TAB Fish Oil/Dha/Epa (Fish Oil 1,200 mg Fish Oil) 1 Each Capsule 1200 MG PO DAILY, CAP Insulin Aspart (Novolog) 100 Unit/1 Ml Susp 10 UNITS SC AC, EA Insulin Determir (Levemir) 1,000 Units/10 Ml Soln 10 UNITS SC BID, EA Loperamide HCl (Anti-Diarrhea) 2 Mg Tablet PO UD PRN for DIARRHEA, TAB Lurasidone HCl (Latuda) 80 Mg Tablet 80 MG PO HS, TAB Multivitamin (Daily Multiple Vitamin) 1 Each Tablet 1 TAB PO DAILY, TAB Phenazopyridine HCl (Azo Standard) 95 Mg Tablet 95 MG PO BID, TAB Patient Instructions Patient Instructions: Please schedule follow up appt to see Dr. Jo in a week BARRY REYES Mar 25, 2017 08:56
[2017-03-25] MEDS ORDERED: DIGOXIN 0.125 MG (LANOXIN) TAB PO SCH (09:00)
[2017-03-25] MEDS ORDERED: ASPIRIN 81 MG CHEW (CHILDREN'S ASA) PO SCH (09:00)
[2017-03-25] MEDS ORDERED: ENALAPRIL 10 MG (VASOTEC) TAB PO SCH (09:00)
[2017-03-25] MEDS ORDERED: NON-FORMULARY MEDICATION 1 EA EA (Multivitamin (Daily Multiple Vitamin) 1 TAB) PO SCH (09:00)
[2017-03-25] MEDS ORDERED: CLOPIDOGREL 75 MG (PLAVIX) TABLET PO SCH (09:00)
[2017-03-25] MEDS ORDERED: NON-FORMULARY MEDICATION 1 EA EA (Enalapril Maleate 20 MG) PO SCH (09:00)
[2017-03-25] MEDS ORDERED: OMEGA 3 (FISH OIL) 1000 MG CAP PO SCH (09:00)
[2017-03-25] MEDS: NS IV 1000 ML 1,000 ML IV SCH (09:19)
[2017-03-25 11:25] VITALS: BP 120/70
== END 2017-03-25 11:25 | disposition home or self-care (01) ==
LOC: CATH 07:44 → 4TH 13:19 → CATH 03-25 11:25
PROVIDERS: ATTEND Internal Medicine Cardiovascular Disease
DX: I25.10 Atherosclerotic heart disease of native coronary artery without angina pectoris (principal); I25.5 Ischemic cardiomyopathy; I12.9 Hypertensive chronic kidney disease with stage 1 through stage 4 chronic kidney disease, or unspecified chronic kidney disease; E11.22 Type 2 diabetes mellitus with diabetic chronic kidney disease; N18.3 Chronic kidney disease, stage 3 (moderate); E78.5 Hyperlipidemia, unspecified; E05.90 Thyrotoxicosis, unspecified without thyrotoxic crisis or storm; I69.328 Other speech and language deficits following cerebral infarction; M79.604 Pain in right leg; M79.605 Pain in left leg; F20.9 Schizophrenia, unspecified; F32.9 Major depressive disorder, single episode, unspecified; Z91.19 Patient's noncompliance with other medical treatment and regimen; Z95.1 Presence of aortocoronary bypass graft; Z95.5 Presence of coronary angioplasty implant and graft; Z95.810 Presence of automatic (implantable) cardiac defibrillator; Z79.02 Long term (current) use of antithrombotics/antiplatelets; Z79.4 Long term (current) use of insulin; Z79.899 Other long term (current) drug therapy
CPT/HCPCS: 36415; 80048; 80053; 80061; 80162; 82962; 84132; 85027; 85610; 85730; 87081; 93005

== ENCOUNTER → 2017-04-30 | Outpatient (CLI) | payer OTHER ==
--- NOTE | 2017-04-30 15:43 | Diagnostic Imaging Report ---
INDICATION: Recent heart catheterization with right groin pain. FINDINGS: Sonographic interrogation of the right groin was performed. There is a small area of hypoechogenicity anterior to the right common femoral artery measuring 7 mm x 10 mm x 8 mm. No internal blood flow is seen. This may represent a residual hematoma. Remainder of the right groin is unremarkable. No pseudoaneurysm or AV fistula is detected. The right common femoral artery and vein are patent. IMPRESSION: Probable small right groin hematoma. No pseudoaneurysm or AV fistula is detected. Dictated by: Dictated on workstation # [id number]
== END ==
LOC: RAD 14:43
PROVIDERS: ATTEND Nurse Practitioner Family
DX: R10.31 Right lower quadrant pain (principal); Z98.890 Other specified postprocedural states
CPT/HCPCS: 93926

== ENCOUNTER 2017-06-08 16:17 | Observation (INO) | payer MEDICARE, OTHER ==
[~2017-06-08] VITALS: Ht 162.6 cm; Wt 77.4 kg
--- OUTSIDE RECORDS SUMMARY | 2017-06-08 16:24 | XMS REPORT ---
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 Role Phone WOOD CALDERON Unavailable PROBLEMS Type Condition ICD9-CM Code OWZ69-DT Code Onset Dates Condition Status SNOMED Code Problem Coronary artery disease involving [place] coronary artery of [place] heart without angina pectoris I25.10 Active 4035318798106 Problem Bipolar affective disorder, current episode mixed, current episode severity unspecified F31.60 Active 259754070 Problem CVA (cerebral vascular accident) I63.9 Active 745216438 Problem Pacemaker Z95.0 Active 263515989 Problem Psychosis, unspecified psychosis type F29 Active 02191943 Problem Diabetes E11.9 Active 66820829 ALLERGIES No Information ENCOUNTERS Encounter Location Date Diagnosis [place] [address] [address] Jun, [facility] [address] 9[address]- 5[address] May, [facility] [address] [place] [id number] [place] [address] 95708- 1000 May, [facility] [address] 30661- 6836 09 May, 2017 Diabetes E11.9 [facility] [address] [place] [id number] [place] [address] [id number] Apr, Dental examination Z01.20 and Dental caries K02.9 [facility] [address] [place] [id number] [place] [address] 40206- 0431 Apr, Dental examination Z01.20 and Dental abscess K04.7 [facility] [address] [address]- [address] Mar, Psychosis, unspecified psychosis type F29 and Bipolar affective disorder, current episode mixed, current episode severity unspecified F31.60 [place] [address] [place] [id number] [place] [address] 25070- 1165 Mar, [facility] [address] [id number] [place] [address] 07691- 9649 Feb, [place] [address] [place] [id number] [place] [address] 71623- 3498 Feb, Left wrist pain M25.532 [place] [address] [place] [id number] [place] [address] 68046- 4675 Jan, [place] [address] [place] [id number] [place] [address] 37397- 6058 Jan, Psychosis, unspecified psychosis type F29 and Bipolar affective disorder, current episode mixed, current episode severity unspecified F31.60 [place] [address] [id number] [place] [address] 08565- 1049 Jan, Diabetes E11.9 [facility] [address] [id number] [place] [address] 55347 -4399 Jan, Left wrist pain M25.532 [place] [address] [id number] [place] [address] 31852- 5943 Dec, Psychosis, unspecified psychosis type F29 and Bipolar affective disorder, current episode mixed, current episode severity unspecified F31.60 [place] [address] [place] [id number] [place] [address] 31811- 2810 Dec, Syncope, unspecified syncope type R55 ; Vertigo R42 ; Diabetes E11.9 ; Psychosis, unspecified psychosis type F29 and Fall, initial encounter W19.XXXA [place] [address] [place] [id number] [place] [address] 93800- 5600 Dec, Diabetes E11.9 ; Neck pain M54.2 and Vertigo R42 [place] [address] [place] [id number] [place] [address] 02956- 5846 13 Nov, 2016 [facility] [address] [facility] [id number] [address] 08 Nov, 2016 [facility] [address] [facility] [id number] [address] 08 Nov, 2016 [facility] [address] [address] 06 Nov, 2016 Diabetes E11.9 [facility] [address] [facility] [id number] [place] [address] 35312- 0125 05 Nov, 2016 Diabetes E11.9 [facility] [address] [place] [id number] [place] [address] 35912- 2370 Oct, [facility] [address] [place] [id number] [place] [address] [id number] Oct, [facility] [address] [address]- 2221 Oct, [facility] [address] [address]- 1085 Oct, Bipolar affective disorder, current episode mixed, current episode severity unspecified F31.60 [facility] [address] [id number] [id number] Sep, [facility] [address] [address]- 6252 Sep, Bipolar affective disorder, current episode mixed, current episode severity unspecified F31.60 [facility] [address] [address] Sep, Acute maxillary sinusitis, recurrence not specified J01.00 [facility] [address] [address]- 6706 07 Sep, 2016 Diabetes E11.9 [facility] [address] [facility] [id number] [address]- 1741 July, Diabetes E11.9 [facility] [id number] [place] [address] 04357- 0254 July, Diabetes E11.9 [facility] [address] [place] [id number] [place] [address] 42725- 4489 Jun, [place] [address] [place] [id number] [place] [address] 01361- 6990 May, Bipolar affective disorder, current episode mixed, current episode severity unspecified F31.60 [facility] [address] [place] [id number] [place] [address] 67566 -2751 May, Acute non-recurrent maxillary sinusitis J01.00 [place] [address] [id number] [place] [address] 06928- 0318 Apr, Psychosis, unspecified psychosis type F29 and Bipolar affective disorder, current episode mixed, current episode severity unspecified F31.60 [facility] [place] [address] [place] [id number] [place] [address] 49176 -8795 Apr, Dysuria R30.0 ; Other viral agents as the cause of diseases classified elsewhere B97.89 and Acute upper respiratory infection, unspecified J06.9 [place] [address] [id number] [place] [address] 28562- 0903 Mar, Diabetes E11.9 ; Urine leukocytes R82.99 and Psychosis, unspecified psychosis type F29 [place] [address] [place] [id number] [place] [address] 85501- 2380 Mar, Diabetes E11.9 [place] [address] [place] [id number] [place] [address] 78467- 9044 Feb, [facility] [address] [place] [id number] [place] [address] 68010- 9491 Jan, [place] [address] [place] [id number] [place] [address] 52663- 9919 Dec, Psychosis, unspecified psychosis type F29 [place] [address] [place] [id number] [place] [address] 75191- 9837 Dec, [facility] [address] [place] [address] 17424 -7636 Dec, [facility] [address] [place] [address] [id number] [place] [address] 11101- 9945 Dec, Psychosis, unspecified psychosis type F29 [facility] [address] [address] [id number] [place] [address] 61912- 8296 Nov, Schizoaffective disorder, unspecified type F25.9 [facility] [address] [id number] [place] [address] 18600- 4519 16 Oct, 2015 [facility] [address] [place] [address] [id number] [place] [address] 95237 -2044 Oct, Conjunctivitis of right eye, unspecified conjunctivitis type H10.9 [facility] [address] [place] [id number] [place] [address] 69682- 8920 Aug, [facility] [address] [place] [id number] [place] [address] [id number] Jun, Encounter for dental examination Z01.20 [facility] [address] [id number] [place] [address] 39727- 5461 Jun, Diabetes E11.9 and Bipolar affect, depressed F31.30 [facility] [address] [place] [id number] [place] [address] 18493- 3717 Jun, Other bipolar disorder F31.89 [facility] [address] [place] [id number] [place] [address] 37123- 6861 Jun, [facility] [address] [place] [id number] [place] [address] 06440- 2732 Apr, [facility] [address] [place] [id number] [place] [address] 23312- 9635 Dec, [facility] [address] [place] [id number] [place] [address] 45187- 3781 Dec, [facility] [address] [address] [id number] [place] [address] 54695- 7036 Sep, [facility] [place] [facility] [address] [id number] [place] [address]- 8402 Jun, [facility] [place] [facility] [address] [id number] [place] [address]- 9318 Jun, [facility] [place] [facility] [address] [id number] [place] [address]- 4432 Mar, [facility] [place] [facility] [address] [id number] [place] [address]- 1599 Mar, [facility] [place] [facility] [address] [id number] [place] [address]- 3971 Nov, [facility] [place] [facility] [address] [id number] [place] [address]- 3268 Nov, [facility] [place] [facility] [address] [id number] [place] [address]- 9332 Sep, [facility] [place] [facility] [address] [id number] [place] [address]- 9668 Sep, [facility] [place] [facility] [address] [id number] [place] [address]- 9050 Sep, [facility] [place] [facility] [address] [id number] [place] [address]- 0405 Sep, [facility] [place] [facility] [address] [id number] [place] [address]- 2579 Sep, [facility] [place] [facility] [address] [id number] [address]- 2231 Aug, [facility] [place] [facility] [address] [id number] [place] [address]- 0317 Aug, [facility] [place] [facility] [address] [id number] [place] [address]- 6980 Aug, [facility] [place] [facility] [address] [id number] [place] [address]- 4110 Aug, [facility] [place] [facility] [address] [id number] [place] [address]- 6827 Aug, [facility] [place] [facility] [address] [id number] [place] [address]- 7937 Aug, [facility] [place] [facility] [address] [id number] [place] [address]- 4165 July, [facility] [place] [facility] [address] [id number] [place] [address]- 7071 July, [facility] [place] [facility] [address] [id number] [place] [address]- 7799 Jun, [facility] [place] [facility] [address] [id number] [place] [address]- 8725 Jun, [facility] [place] [facility] [address] [id number] [place] [address]- 8900 Jun, [facility] [place] [facility] [address] [id number] [place] [address]- 1280 Jun, [facility] [place] [facility] [address] [id number] [place] [address]- 7413 Jun, [facility] [place] [facility] [address] [id number] [place] [address]- 7392 Jun, [facility] [place] [facility] [address] [id number] [place] [address]- 2174 Jun, [facility] [place] [facility] [address] [id number] [place] [address]- 5877 Jun, [facility] [place] [facility] [address] [id number] [place] [address]- 7143 May, [facility] [place] [facility] [address] [id number] [place] [address]- 7865 May, [facility] [place] [facility] [address] [id number] [place] [address]- 9080 May, [facility] [place] [facility] [address] [id number] [place] [address]- 4109 May, [facility] [place] [facility] [address] [id number] [place] [address]- 0327 May, [facility] [place] [facility] [address] [id number] [place] [address]- 6525 May, [facility] [place] [facility] [address] [id number] [place] [address]- 8226 May, [facility] [place] [facility] [address] [id number] [place] [address]- 7972 May, [facility] [place] [facility] [address] [id number] [place] [address]- 8686 May, [facility] [place] [facility] [address] [id number] [place] [address]- 3420 Apr, [facility] [place] [facility] [address] [id number] [place] [address]- 7347 Apr, [facility] [place] [facility] [address] [id number] [place] [address]- 1817 Mar, [facility] [place] [facility] [address] [id number] [place] [address]- 1047 Mar, [facility] [place] [facility] [address] [id number] [place] [address]- 8810 Feb, [facility] [place] [facility] [address] [id number] [place] [address]- 9837 Feb, [facility] [place] [facility] [address] [id number] [place] [address]- 4192 Nov, [facility] [place] [facility] [address] [id number] [place] [address]- 1028 Nov, [facility] [place] [facility] [address] [id number] [place] [address]- 5592 Oct, [facility] [place] [facility] [address] [id number] [place] [address]- 0633 Oct, [facility] [place] [facility] [address] [id number] [place] [address]- 3780 Oct, [facility] [address] [id number] [place] [address]- 5427 Oct, [facility] [place] [facility] [address] [id number] [place] [address]- 8498 Oct, [facility] [place] [facility] [address] [id number] [place] [address]- 5054 Sep, [facility] [place] [facility] [address] [id number] [place] [address]- 7791 Sep, [facility] [place] [facility] [address] [id number] [place] [address]- 0818 Sep, [facility] [place] [facility] [address] [id number] [place] [address]- 6331 Sep, [facility] [place] [facility] [address] [id number] [place] [address]- 0972 Aug, [facility] [place] [facility] [address] [id number] [place] [address]- 1451 Aug, [facility] [place] [facility] [address] [id number] [place] [address]- 8809 Aug, [facility] [place] [facility] [address] [id number] [place] [address]- 2344 Aug, [facility] [place] [facility] [address] [id number] [place] [address]- 7288 Jun, [facility] [place] [facility] [address] [id number] [place] [address]- 1956 18 Jun, 2012 [facility] [place] [facility] [address] [id number] [place] [address]- 9479 Jun, [facility] [place] [facility] [address] [id number] [place] 2967 Jun, [facility] [place] [facility] [address] [id number] [place] [address]- 7164 May, [facility] [place] [facility] [address] [id number] [place] [address]- 5393 18 May, [address] [facility] [address] [id number] [place] [address]- 0595 18 May, 2012 [facility] [place] [facility] [address] [id number] [place] [address]- 7906 13 May, [address] [facility] [address] [id number] [place] [address]- 7535 11 May, 2012 [facility] [address] [id number] [place] [address]- 7355 04 May, [address] [facility] [address] [id number] [place] [address]- 9415 21 Apr, [address] [facility] [address] [id number] [place] [address]- 4363 20 Apr, [address] [facility] [address] [id number] [place] [address]- 0559 19 Apr, 2012 [facility] [address] [id number] [place] [address]- 3460 19 Apr, 2012 [facility] [address] [id number] [place] [address]- 2771 19 Apr, 2012 [facility] [address] [id number] [place] [address]- 8346 20 Feb, [address] [facility] [address] [id number] [place] [address]- 7962 Feb, [facility] [address] [id number] [place] [address]- 5159 Feb, [facility] [place] [facility] [address] [id number] [place] [address]- 9616 Feb, [facility] [place] [facility] [address] [id number] [place] [address]- 9865 19 Feb, 2012 [facility] [place] [facility] [address] [id number] [place] [address]- 6389 19 Feb, 2012 [facility] [place] [facility] [address] [id number] [place] [address]- 2530 19 Feb, 2012 [facility] [place] [facility] [address] [id number] [place] [address]- 4676 19 Feb, 2012 [facility] [place] [facility] [address] [id number] [place] [address]- 6216 14 Feb, 2012 [facility] [place] [facility] [address] [id number] [place] [address]- 8943 14 Feb, 2012 [facility] [place] [facility] [address] [id number] [place] [address]- 7256 13 Feb, 2012 [facility] [place] [facility] [address] [id number] [place] [address]- 5275 13 Feb, 2012 [facility] [place] [facility] [address] [id number] [place] [address]- 4014 12 Feb, 2012 [facility] [place] [facility] [address] [id number] [place] [address]- 9418 Feb, [facility] [place] [facility] [address] [id number] [place] [address]- 6408 Feb, [facility] [place] [facility] [address] [id number] [place] [address]- 9876 Feb, [facility] [place] [facility] [address] [id number] [place] [address]- 1892 Feb, [facility] [place] [facility] [address] [id number] [address]- 8941 Feb, [facility] [place] [facility] [address] [id number] [place] [address]- 7606 Feb, [facility] [place] [facility] [address] [id number] [place] [address]- 8834 Feb, [facility] [place] [facility] [address] [id number] [place] [address]- 8230 Feb, [facility] [place] [facility] [address] [id number] [place] [address]- 6387 Feb, [facility] [address] [id number] [place] [address]- 1812 Feb, [facility] [place] [facility] [address] [id number] [place] [address]- 3628 Feb, [facility] [address] [id number] [place] [address]- 3517 Feb, [facility] [place] [facility] [address] [id number] [place] [address]- 4309 Feb, [facility] [place] [facility] [address] [id number] [place] [address]- 4070 Jan, [facility] [place] [facility] [address] [id number] [place] [address]- 3253 Jan, [facility] [place] [facility] [address] [id number] [place] [address]- 5551 Dec, [facility] [place] [facility] [address] [id number] [place] [address]- 3364 Dec, [facility] [place] [facility] [address] [id number] [place] [address]- 6066 Dec, [facility] [place] [facility] [address] [id number] [place] [address]- 4031 Dec, [facility] [place] [facility] [address] [id number] [place] [address]- 3314 Nov, [facility] [place] [facility] [address] [id number] [place] [address]- 2487 12 Nov, 2011 [facility] [place] [facility] [address] [id number] [place] [address]- 7972 Nov, [facility] [place] [facility] [address] [id number] [place] [address]- 3655 Nov, [facility] [place] [facility] [address] [id number] [place] [address]- 0074 Oct, [facility] [place] [facility] [address] [id number] [place] [address]- 6595 Oct, [facility] [place] [facility] [address] [id number] [place] [address]- 6248 Sep, [facility] [place] [facility] [address] [id number] [place] [address]- 3063 Sep, [facility] [place] [facility] [address] [id number] [place] [address]- 1640 Sep, [facility] [place] [facility] [address] [id number] [place] [address]- 3513 Aug, [facility] [place] [facility] [address] [id number] [place] [address]- 5600 Aug, [facility] [place] [facility] [address] [id number] [place] [address]- 6015 Aug, [facility] [place] [facility] [address] [id number] [place] [address]- 8126 Aug, [facility] [place] [facility] [address] [id number] [place] [address]- 9681 Aug, [facility] [place] [facility] [address] [id number] [place] [address]- 0752 July, [facility] [place] [facility] [address] [id number] [place] [address]- 5209 July, [facility] [place] [facility] [address] [id number] [place] [address]- 7150 July, [facility] [place] [facility] [address] [id number] [place] [address]- 9892 July, [facility] [place] [facility] [address] [id number] [place] [address]- 1342 July, [facility] [place] [facility] [address] [id number] [place] [address] Jun, [facility] [place] [facility] [address] [id number] [address] May, [facility] [address] [id number] [place] [address] 16 Apr, 2011 [facility] [address] [id number] [place] [address] Apr, [facility] [address] [id number] [place] [address] Apr, [facility] [address] [id number] [place] [address] Mar, [facility] [address] [id number] [place] [address] Mar, [facility] [address] [id number] [place] [address] Mar, [facility] [address] [id number] [place] [address] Mar, [facility] [address] [id number] [place] [address] Mar, [facility] [address] [id number] [place] [address] Mar, [facility] [address] [id number] [place] [address] Mar, [facility] [address] [id number] [place] [address] Mar, [facility] [address] [id number] [place] [address] Feb, [facility] [place] [facility] [address] [id number] [place] [address] Feb, [facility] [place] [facility] [address] [id number] [place] [address] Feb, [facility] [address] [id number] [place] [address] Feb, [facility] [address] [id number] [place] [address] Feb, [facility] [place] [facility] [address] [id number] [place] [address] Jan, [facility] [place] [facility] [address] [id number] [place] [address] Jan, [facility] [place] [facility] [address] [id number] [place] [address] Jan, [facility] [place] [facility] [address] [id number] [place] [address] Jan, [facility] [place] [facility] [address] [id number] [place] [address] Dec, [facility] [place] [facility] [address] [id number] [place] [address] 14 Dec, 2010 [facility] [place] [facility] [address] [id number] [place] [address] Sep, [facility] [place] [facility] [address] [id number] [place] [address] July, [facility] [place] [facility] [address] [id number] [place] [address] Apr, [facility] [place] [facility] [address] [id number] [place] [address] Mar, [facility] [place] [facility] [address] [id number] [place] [address] Feb, [facility] [place] [facility] [address] [id number] [place] [address] Feb, [facility] [place] [facility] [address] [id number] [place] [address] Feb, [facility] [place] [facility] [address] [id number] [place] [address] Feb, [facility] [place] [facility] [address] [id number] [place] [address] Feb, [facility] [address] [facility] [id number] [place] [address] Feb, [facility] [address] [facility] [id number] [address] Feb, [facility] [address] [facility] [id number] [place] [address] Dec, [facility] [address] [facility] [id number] [place] [address] Jan, [facility] [address] [facility] [id number] [place] [address] Apr, IMMUNIZATIONS No Known Immunizations SOCIAL HISTORY Never Assessed REASON FOR VISIT Refill request PLAN OF CARE VITAL SIGNS MEDICATIONS Medication Instructions Dosage Frequency Start Date End Date Duration Status BD Insulin Syringe 31G X 5/16" 0.3 ML as directed 12Mar, 30 days Active RESULTS No Results PROCEDURES No Known procedures INSTRUCTIONS MEDICATIONS ADMINISTERED No Known Medications MEDICAL (GENERAL) HISTORY Type Description Date Medical History HBP Medical History Heart Disease Medical History Stroke 90's Medical History Cardiac Pacemakes Medical History Blood Thinners Medical History Arthitis Medical History Back Trouble Medical History Bipolar affect, depressed Medical History Bipolar affect, depressed Medical History Other bipolar disorder Surgical History Carotid Surgical History Bypass 1998 Surgical History cholecystectomy Surgical History colonscopy Surgical History Pacemaker Hospitalization History Stroke Hospitalization History Surgery Hospitalization History Hyperglycemia 2012 Hospitalization History [facility] 11/28/2015-2015 Hospitalization History Schizophrenia 09/26/16 Hospitalization History AMS, UTI, hyponatremia-[facility] 10/21/16 Hospitalization History stent placed 02/02/17 Hospitalization History stent placed 02/2017
--- OUTSIDE RECORDS SUMMARY | 2017-06-08 16:30 | XMS REPORT | Continuity of Care Document ---
Author Author Formerly [facility], [facility] Address Unknown Phone Unavailable Allergies Active Description Code Type Severity Reaction Onset Reported/Identified Relationship to Patient Clinical Status Yes CODEINE-GUAIFENESIN CODEINE -GUAIFENESIN UNKNOWN Yes OTHER OTHER UNKNOWN Yes PREDNISONE PREDNISONE UNKNOWN Yes BLEACH MILD OTHER Yes CODEINE-GUAIFENESIN UNKNOWN UNKNOWN Yes OTHER UNKNOWN UNKNOWN Yes OTHER MODERATE GI PROBLEMS - NAUSEA Yes OTHER MILD OTHER Yes PERFUME MILD OTHER Yes PREDNISONE UNKNOWN UNKNOWN Yes corn [id number] Drug Allergy Unknown N/A 02/07/2010 Yes Tejeda Food Allergy N/A N/A 07/30/2011 Yes Pork Food Allergy N/A N/A 07/30/2011 Yes Bond Food Allergy N/A N/A 07/30/2011 Yes yeast Food Allergy N/A N/A 07/30/2011 Yes Tejeda Food Allergy 07/30/2011 Yes Pork Food Allergy 07/30/2011 Yes Bond Food Allergy 07/30/2011 Yes yeast Food Allergy 07/30/2011 Yes CORN Food Allergy N/A N/A 06/23/2012 Yes CORN Food Allergy 06/23/2012 Yes Bleach (Sodium Hypochlorite) [id number] Drug Allergy Unknown N/A 2016 Yes perfume [id number] Drug Allergy Unknown N/A 09/25/2016 Medications Medication Packaging Start Date Stop Date Route Dosage Sig AMOXICILLIN CAP 500 MG (AMOXIL) MG 05/18/2016 05/25/2016 Q8H&0600,1400,2200 ACETAMINOPHEN ORAL TABLET 325mg(Tylenol) MG 09/26/2016 10/03/2016 PRN EVERY 6 Hour ALUM/MAG/SIMETH 30CC LIQ (MYLANTA PLUS) cc 09/26/2016 10/06/2016 PRN Q4H POLYETHYLENE GLYCOL POWDER UD PWD (MIRALAX 17GM UNIT DOSE PAKS) gm 09/26/2016 10/06/2016 PRN Q3H ZIPRASIDONE CAP 80 MG (GEODON) MG 09/26/2016 09/26/2016 ONCE&0900 INSULIN ASPART PEN INJ 100 UNITS/CC (NOVOLOG FLEXPEN) UNITS 09/26/2016 10/26/2016 AC&0630,1130,1630 CALMOSEPTINE OINT TUBE (RISAMINE OINT) felix 09/26/2016 10/03/2016 PRN QID LURASIDONE TAB 40 MG (LATUDA) MG 10/25/2016 Daily&1700 LOPERAMIDE CAP 2 MG (IMMODIUM) MG 09/26/2016 10/03/2016 PRN QID CARVEDILOL TAB 12.5 MG (COREG) MG 09/26/2016 10/26/2016 BID&0800,2000 METFORMIN TAB 500 MG (GLUCOPHAGE) MG 09/26/2016 10/26/2016 BID&0800,2000 FLUTICASONE NASAL INHALER MDI 50 MCG (FLONASE NOSE SPRAY) PUFF(S) 09/26/2016 10/26/2016 BID&0800,2000 LACTULOSE SYRUP LIQ 20 GM/30CC (CHRONULAC SYRUP) GM 09/26/2016 10/06/2016 BID&0800,2000 CEFDINIR CAP 300 MG (OMNICEF) MG 10/04/2016 BID&0800,2000 INSULIN DETEMIR PEN INJ 100 UNITS/CC (LEVEMIR FLEXPEN) UNITS 09/26/2016 10/26/2016 BID&0800,2000 MILK OF MAGNESIA LIQ ml 09/26/2016 10/03/2016 PRN BID ASA 81MG CHEWABLE TAB 81 MG (BABY ASPIRIN) MG 09/26/2016 10/25/2016 QHS&2100 MELATONIN TAB 3 MG (MELATONIN) MG 09/26/2016 10/02/2016 QHS&2100 TRAZODONE TAB 50 MG (DESYREL) MG 10/02/2016 PRN QHS ASA 81MG CHEWABLE TAB 81 MG (BABY ASPIRIN) MG 09/27/2016 10/26/2016 Daily&0900 ZIPRASIDONE CAP 80 MG (GEODON) MG 09/27/2016 10/26/2016 Daily&0900 DIGOXIN TAB 0.125 MG (LANOXIN) MG 09/27/2016 10/26/2016 Daily&0900 BISACODYL SUPPOS SUP 10 MG (DULCOLAX SUPPOS) MG 09/27/2016 10/03/2016 PRN Daily ENALAPRIL TAB 20 MG (VASOTEC) MG 10/26/2016 Daily&0900 INSULIN ASPART PEN INJ 100 UNITS/CC (NOVOLOG FLEXPEN) UNITS 09/28/2016 09/28/2016 ONCE&0630 INSULIN ASPART PEN INJ 100 UNITS/CC (NOVOLOG FLEXPEN) UNITS 09/28/2016 10/28/2016 AC&0630,1130,1630 LACTULOSE SYRUP LIQ 20 GM/30CC (CHRONULAC SYRUP) GM 09/28/2016 10/05/2016 PRN TID INSULIN DETEMIR PEN INJ 100 UNITS/CC (LEVEMIR FLEXPEN) UNITS 09/28/2016 10/27/2016 QHS&2100 CITALOPRAM TAB 10 MG (CELEXA) MG 10/28/2016 Daily&0900 Rivastigmine TD Patch 24 hour 4.6mg (EXELON) MG 09/29/2016 10/08/2016 Daily&0900 LURASIDONE TAB 40 MG (LATUDA) MG 11/01/2016 Daily&1700 LURASIDONE TAB 20 MG (LATUDA) MG 11/01/2016 Daily&1700 MELATONIN TAB 3 MG (MELATONIN) MG 10/03/2016 11/01/2016 QHS&2100 ACETAMINOPHEN ORAL TABLET 325mg(Tylenol) MG 10/05/2016 10/15/2016 PRN EVERY 6 Hour LACTULOSE SYRUP LIQ 20 GM/30CC (CHRONULAC SYRUP) GM 10/05/2016 10/12/2016 PRN TID TRAZODONE TAB 50 MG (DESYREL) MG 10/12/2016 PRN QHS Rivastigmine TD Patch 24 hour 4.6mg (EXELON) MG 10/09/2016 10/18/2016 Daily&0900 LACTULOSE SYRUP LIQ 20 GM/30CC (CHRONULAC SYRUP) GM 10/12/2016 10/19/2016 PRN TID Problems Date Dx Coded Attending Type Code Diagnosis Diagnosed By WOOD CALDERON APRN S 272.4 HYPERLIPIDEMIA CHALO CALDERON APRNA S 296.40 BIPOLAR I DISORDER, MOST RECENT EPISODE, MANIC EL CALDERON APRNNDA S 296.80 BIPOLAR DISORDER NOS EL CALDERON APRNNDA S 296.90 EPISODIC MOOD DISORDERS EL CALDERON APRNNDA S 300.00 anxiety EL CALDERON APRNNDA S 300.4 DYSTHYMIC DISORDER (DEPRESSIVE NEUROSIS) EL CALDERON APRNNDA S 307.47 NIGHTMARE DISORDER EL CALDERON APRNNDA S 425.4 CARDIOMYOPATHY EL CALDERON APRNNDA S 427.9 RHYTHM DISORDER EL CALDERON APRNNDA S 455.6 HEMORRHOIDS EL CALDERON APRNNDA S 578.1 red blood in bowel movement (hematochezia) EL CALDERON APRNNDA S 625.9 pelvic pain EL CALDERON APRNNDA S 787.91 diarrhea EL CALDERON APRNNDA S 796.2 Blood Pressure Isolated Elevated EL CALDERON APRNNDA S V58.69 taking high-risk medication CHALO CALDERON APRNA S V65.49 Self-Care Education - Need To Report Postmenopausal Bleeding CHALO CALDERON APRNA S V76.10 visit for: screening exam malignant neoplasm breast BOONE IRAHETA DO 272.4 HYPERLIPIDEMIA BOONE IRAHETA DO 296.40 BIPOLAR I DISORDER, MOST RECENT EPISODE, MANIC BOONE IRAHETA DO 296.80 BIPOLAR DISORDER NOS BOONE IRAHETA DO 296.90 EPISODIC MOOD DISORDERS BOONE IRAHETA DO 300.00 anxiety MARBIN IRAHETA DOA K 300.4 DYSTHYMIC DISORDER (DEPRESSIVE NEUROSIS) BOONE IRAHETA DO K 307.47 NIGHTMARE DISORDER BOONE IRAHETA DO K 425.4 CARDIOMYOPATHY MYRTLE SPICER BOONE K 427.9 RHYTHM DISORDER MYRTLE SPICER, BOONE K 455.6 HEMORRHOIDS MARBIN IRAHETA DOA K 578.1 red blood in bowel movement (hematochezia) MARBIN IRAHETA DOA K 625.9 pelvic pain BOONE IRAHETA DO K 787.91 diarrhea BOONE IRAHETA DO K 796.2 Blood Pressure Isolated Elevated BOONE IRAHEAT DO V58.69 taking high-risk medication BOONE IRAHETA DO V65.49 Self-Care Education - Need To Report Postmenopausal Bleeding BOONE IRAHETA DO V76.10 visit for: screening exam malignant neoplasm breast MADL TUTORING ASSISTANT, MIGUEL L 272.4 HYPERLIPIDEMIA MADL TUTORING ASSISTANT, MIGUEL L 296.40 BIPOLAR I DISORDER, MOST RECENT EPISODE, MANIC MADL TUTORING ASSISTANT, MIGUEL L 296.80 BIPOLAR DISORDER NOS MADL TUTORING ASSISTANT, MIGUEL L 296.90 EPISODIC MOOD DISORDERS MADL TUTORING ASSISTANT, MIGUEL L 300.00 anxiety MADL TUTORING ASSISTANT, MIGUEL L 300.4 DYSTHYMIC DISORDER (DEPRESSIVE NEUROSIS) MADL TUTORING ASSISTANT, MIGUEL L 307.47 NIGHTMARE DISORDER MADL TUTORING ASSISTANT, MIGUEL L 425.4 CARDIOMYOPATHY MADL TUTORING ASSISTANT, MIGUEL L 427.9 RHYTHM DISORDER MADL TUTORING ASSISTANT, MIGUEL L 455.6 HEMORRHOIDS MADL TUTORING ASSISTANT, MIGUEL L 578.1 red blood in bowel movement (hematochezia) MADJaylen TUTORING ASSISTANT, MIGUEL L 625.9 pelvic pain MADL TUTORING ASSISTANT, MIGUEL L 787.91 diarrhea MADL TUTORING ASSISTANT, MIGUEL L 796.2 Blood Pressure Isolated Elevated MADL TUTORING ASSISTANT, MIGUEL L V58.69 taking high-risk medication MADL TUTORING ASSISTANT, MIGUEL L V65.49 Self-Care Education - Need To Report Postmenopausal Bleeding MADJaylen TUTORING ASSISTANT, MIGUEL L V76.10 visit for: screening exam malignant neoplasm breast CARLITA WAITE MD 272.4 HYPERLIPIDEMIA CARLITA WAITE MD 296.40 BIPOLAR I DISORDER, MOST RECENT EPISODE, MANIC RAVINDRA GLASER, CARLITA 296.80 BIPOLAR DISORDER NOS RAVINDRA GLASER, CARLITA 296.90 EPISODIC MOOD DISORDERS CARLITA WAITE MD 300.00 anxiety CARLITA WAITE MD 300.4 DYSTHYMIC DISORDER (DEPRESSIVE NEUROSIS) CARLITA WAITE MD 307.47 NIGHTMARE DISORDER CARLITA WAITE MD 425.4 CARDIOMYOPATHY CARLITA WAITE MD 427.9 RHYTHM DISORDER RAVINDRA GLASER, CARLTIA 455.6 HEMORRHOIDS CARLITA WAITE MD 578.1 red blood in bowel movement (hematochezia) CARLITA WAITE MD 625.9 pelvic pain CARLITA WAITE MD 787.91 diarrhea CARLITA WAITE MD 796.2 Blood Pressure Isolated Elevated CARLITA WAITE MD V58.69 taking high-risk medication CARLITA WAITE MD V65.49 Self-Care Education - Need To Report Postmenopausal Bleeding CARLITA WAITE MD V76.10 visit for: screening exam malignant neoplasm breast ESTRADA TUTORING ASSISTANT, DAAYNA R 272.4 HYPERLIPIDEMIA SEAN MORRIS, DAYANA R 296.40 BIPOLAR I DISORDER, MOST RECENT EPISODE, MANIC SEAN MORRIS, DAYANA R 296.80 BIPOLAR DISORDER NOS SEAN MORRIS, DAYANA R 296.90 EPISODIC MOOD DISORDERS SEAN MORRIS, DAYANA R 300.00 anxiety SEAN MORRIS, DAYANA R 300.4 DYSTHYMIC DISORDER (DEPRESSIVE NEUROSIS) SEAN MORRIS, DAYANA R 307.47 NIGHTMARE DISORDER SEAN MORRIS, DAYANA R 425.4 CARDIOMYOPATHY SEAN MORRIS, DAYANA R 427.9 RHYTHM DISORDER SEAN MORRIS, DAYANA R 455.6 HEMORRHOIDS SEAN MORRSI, DAYANA R 578.1 red blood in bowel movement (hematochezia) JOSÉ ESTRADA APRNRICIA R 625.9 pelvic pain SEAN MORRIS, DAYANA R 787.91 diarrhea SEAN MORRIS, DAYANA R 796.2 Blood Pressure Isolated Elevated SEAN MORRIS, DAYANA R V58.69 taking high-risk medication JOSÉ ESTRADA APRNRICIA R V65.49 Self-Care Education - Need To Report Postmenopausal Bleeding ALESHA ESTRADA APRNIA R V76.10 visit for: screening exam malignant neoplasm breast ESTEE MORRIS, KATHY R 272.4 HYPERLIPIDEMIA ESTEE MORRIS, KATHY R 296.40 BIPOLAR I DISORDER, MOST RECENT EPISODE, MANIC ESTEE MORRIS KATHY R 296.80 BIPOLAR DISORDER NOS ESTEE MORRIS, KATHY R 296.90 EPISODIC MOOD DISORDERS ESTEE HAIRSTONN, KATHY R 300.00 anxiety ESTEE HAIRSTONN, KATHY R 300.4 DYSTHYMIC DISORDER (DEPRESSIVE NEUROSIS) ESTEE MORRIS KATHY R 307.47 NIGHTMARE DISORDER ESTEE HAIRSTONN, KATHY R 425.4 CARDIOMYOPATHY ESTEE TUTORING ASSISTANT, KATHY R 427.9 RHYTHM DISORDER ESTEE TUTORING ASSISTANT, KATHY R 455.6 HEMORRHOIDS ESTEE TUTORING ASSISTANT, KATHY R 578.1 red blood in bowel movement (hematochezia) ESTEE HAIRSTONN, KATHY R 625.9 pelvic pain ESTEE HAIRSTONN, KATHY R 787.91 diarrhea ESTEE TUTORING ASSISTANT, KATHY R 796.2 Blood Pressure Isolated Elevated ESTEE HAIRSTONN, KATHY R V58.69 taking high-risk medication ESTEE HAIRSTONN, KATHY R V65.49 Self-Care Education - Need To Report Postmenopausal Bleeding ESTEE MORRIS, KATHY R V76.10 visit for: screening exam malignant neoplasm breast 09/27/2007 CHIQUITA ROGERS DO 250.00 DIABETES MELLITUS POORLY CONTROLLED 09/27/2007 CHIQUITA ROGERS DO 401.1 ESSENTIAL HYPERTENSION BENIGN 09/27/2007 CHIQUITA ROGERS DO 553.3 HIATAL HERNIA 09/27/2007 CHIQUITA ROGERS DO F 616.10 VULVITIS 09/27/2007 WOOD CALDERON APRN S 250.00 DIABETES MELLITUS POORLY CONTROLLED 09/27/2007 WOOD CALDERON APRN S 401.1 ESSENTIAL HYPERTENSION BENIGN 09/27/2007 WOOD CALDERON APRN S 553.3 HIATAL HERNIA 09/27/2007 CHALO CALDERON APRNA S 616.10 VULVITIS 09/27/2007 TRUNG JADE, ERNESTO Chatman 250.00 DIABETES MELLITUS POORLY CONTROLLED 09/27/2007 TRUNG PHD, ERNESTO Chatman 401.1 ESSENTIAL HYPERTENSION BENIGN 09/27/2007 TRUNG JADE, ERNESTO Chatman 553.3 HIATAL HERNIA 09/27/2007 TRUNG PHD, ERNESTO Chatman 616.10 VULVITIS 09/27/2007 BOONE IRAHETA DO K 250.00 DIABETES MELLITUS POORLY CONTROLLED 09/27/2007 BOONE IRAHETA DO K 401.1 ESSENTIAL HYPERTENSION BENIGN 09/27/2007 IRAHETA [...] 553.3 HIATAL HERNIA 09/27/2007 616.10 VULVITIS 09/27/2007 IRAHETA DO, BOONE K 250.00 DIABETES MELLITUS POORLY CONTROLLED 09/27/2007 IRAHETA DO, BOONE K 401.1 ESSENTIAL HYPERTENSION BENIGN 09/27/2007 IRAHETA DO, BOONE K 553.3 HIATAL HERNIA 09/27/2007 IRAHETA DO, BOONE K 616.10 VULVITIS 09/27/2007 YUMIKO TUTORING ASSISTANT WOOD S 250.00 DIABETES MELLITUS POORLY CONTROLLED 09/27/2007 YUMIKO TUTORING ASSISTANT, WOOD S 401.1 ESSENTIAL HYPERTENSION BENIGN 09/27/2007 YUMIKO TUTORING ASSISTANT, WOOD S 553.3 HIATAL HERNIA 09/27/2007 WOOD CALDERON APRN S 616.10 VULVITIS 09/27/2007 IRAHETA DO, BOONE K 250.00 DIABETES MELLITUS POORLY CONTROLLED 09/27/2007 IRAHETA DO, BOONE K 401.1 ESSENTIAL HYPERTENSION BENIGN 09/27/2007 IRAHETA DO, BOONE K 553.3 HIATAL HERNIA 09/27/2007 IRAHETA DO, BOONE K 616.10 VULVITIS 09/27/2007 MADL TUTORING ASSISTANT, MIGUEL L 250.00 DIABETES MELLITUS POORLY CONTROLLED 09/27/2007 MADL TUTORING ASSISTANT, MIGUEL L 401.1 ESSENTIAL HYPERTENSION BENIGN 09/27/2007 MADL TUTORING ASSISTANT, MIGUEL L 553.3 HIATAL HERNIA 09/27/2007 MADL TUTORING ASSISTANT, MIGUEL L 616.10 VULVITIS 09/27/2007 CARLITA WAITE MD 250.00 DIABETES MELLITUS POORLY CONTROLLED 09/27/2007 CARLITA WAITE MD 401.1 ESSENTIAL HYPERTENSION BENIGN 09/27/2007 CARLITA WAITE MD 553.3 HIATAL HERNIA 09/27/2007 CARLITA WAITE MD 616.10 VULVITIS 09/27/2007 SEAN MORRIS DAYANA R 250.00 DIABETES MELLITUS POORLY CONTROLLED 09/27/2007 SEAN MORRIS DAYANA R 401.1 ESSENTIAL HYPERTENSION BENIGN 09/27/2007 SEAN MORRIS DAYANA R 553.3 HIATAL HERNIA 09/27/2007 SEAN MORRIS, DAYANA R 616.10 VULVITIS 09/27/2007 ESTEE MORRIS, KATHY R 250.00 DIABETES MELLITUS POORLY CONTROLLED 09/27/2007 ESTEE MORRIS, KATHY R 401.1 ESSENTIAL HYPERTENSION BENIGN 09/27/2007 ESTEE MORRIS, KATHY R 553.3 HIATAL HERNIA 09/27/2007 ESTEE MORRIS, KATHY R 616.10 VULVITIS 11/10/2007 CHIQUITA ROGERS DO 296.80 MO BIPOLAR NOS 11/10/2007 WOOD CALDERON APRN 296.80 MO BIPOLAR NOS 11/10/2007 TRUNG JADE, ERNESTO Chatman 296.80 MO BIPOLAR NOS 11/10/2007 IRAHETA DO, BOONE K 296.80 MO BIPOLAR NOS 11/10/2007 IRAHETA DO, BOONE K 296.80 MO BIPOLAR NOS 11/10/2007 IRAHETA DO, BOONE K 296.80 MO BIPOLAR NOS 11/10/2007 296.80 MO BIPOLAR NOS 11/10/2007 296.80 MO BIPOLAR NOS 11/10/2007 296.80 MO BIPOLAR NOS 11/10/2007 296.80 MO BIPOLAR NOS 11/10/2007 BOONE IRAHETA DO K 296.80 MO BIPOLAR NOS 11/22/2007 CHIQUITA ROGERS DO V72.31 Pelvic Exam (Internal) 11/22/2007 WOOD CALDERON APRN V72.31 Pelvic Exam (Internal) 11/22/2007 TRUNG JADE, ERNESTO Chatman V72.31 Pelvic Exam (Internal) 11/22/2007 BOONE IRAHETA DO V72.31 Pelvic Exam (Internal) 11/22/2007 BOONE IRAHETA DO K V72.31 Pelvic Exam (Internal) 11/22/2007 BOONE IRAHETA DO K V72.31 Pelvic Exam (Internal) 11/22/2007 V72.31 Pelvic Exam ( Internal) 11/22/2007 V72.31 Pelvic Exam ( Internal) 11/22/2007 V72.31 Pelvic Exam ( Internal) 11/22/2007 V72.31 Pelvic Exam ( Internal) 11/22/2007 BOONE IRAHETA DO V72.31 Pelvic Exam (Internal) 11/22/2007 WOOD CALDERON APRN V72.31 Pelvic Exam (Internal) 11/22/2007 BOONE IRAHETA DO V72.31 Pelvic Exam (Internal) 11/22/2007 MIGUEL LEW APRN V72.31 Pelvic Exam (Internal) 11/22/2007 CARLITA WAITE MD V72.31 Pelvic Exam (Internal) 11/22/2007 DAYANA ESTRADA APRN V72.31 Pelvic Exam (Internal) 11/22/2007 KATHY FONTANEZ APRN V72.31 Pelvic Exam (Internal) 04/22/2008 CHIQUITA ROGERS DO 250.02 DIABETES MELLITUS WITHOUT MENTION OF COMPLICATION TYPE II OR UNSPECIFIED TYPE UNCONTROLLED 04/22/2008 WOOD CALDERON APRN 250.02 DIABETES MELLITUS WITHOUT MENTION OF COMPLICATION TYPE II OR UNSPECIFIED TYPE UNCONTROLLED 04/22/2008 TRUNG JADE, ERNESTO Chatman 250.02 DIABETES MELLITUS WITHOUT MENTION OF COMPLICATION TYPE II OR UNSPECIFIED TYPE UNCONTROLLED 04/22/2008 BOONE IRAHETA DO 250.02 DIABETES MELLITUS WITHOUT MENTION OF COMPLICATION TYPE II OR UNSPECIFIED TYPE UNCONTROLLED 04/22/2008 BOONE IRAHETA DO K 250.02 DIABETES MELLITUS WITHOUT MENTION OF COMPLICATION TYPE II OR UNSPECIFIED TYPE UNCONTROLLED 04/22/2008 IRAHETA BOONE SPICER K 250.02 DIABETES MELLITUS WITHOUT MENTION OF [...] UNSPECIFIED TYPE UNCONTROLLED 04/22/2008 BOONE IRAHETA DO K 250.02 DIABETES MELLITUS WITHOUT MENTION OF COMPLICATION TYPE II OR UNSPECIFIED TYPE UNCONTROLLED 04/22/2008 WOOD CALDERON APRN S 250.02 DIABETES MELLITUS WITHOUT MENTION OF COMPLICATION TYPE II OR UNSPECIFIED TYPE UNCONTROLLED 04/22/2008 BOONE IRAHETA DO K 250.02 DIABETES MELLITUS WITHOUT MENTION OF COMPLICATION TYPE II OR UNSPECIFIED TYPE UNCONTROLLED 04/22/2008 MIGUEL LEW APRN 250.02 DIABETES MELLITUS WITHOUT MENTION OF COMPLICATION TYPE II OR UNSPECIFIED TYPE UNCONTROLLED 04/22/2008 CARLITA WAITE MD 250.02 DIABETES MELLITUS WITHOUT MENTION OF COMPLICATION TYPE II OR UNSPECIFIED TYPE UNCONTROLLED 04/22/2008 DAYANA ESTRADA APRN R 250.02 DIABETES MELLITUS WITHOUT MENTION OF COMPLICATION TYPE II OR UNSPECIFIED TYPE UNCONTROLLED 04/22/2008 KATHY FONTANEZ APRN R 250.02 DIABETES MELLITUS WITHOUT MENTION OF COMPLICATION TYPE II OR UNSPECIFIED TYPE UNCONTROLLED 05/31/2008 CHIQUITA ROGERS DO 564.1 IRRITABLE BOWEL SYNDROME 05/31/2008 CHIQUITA ROGERS DO 786.2 cough 05/31/2008 WOOD CALDERON APRN S 564.1 IRRITABLE BOWEL SYNDROME 05/31/2008 WOOD CALDERON APRN S 786.2 cough 05/31/2008 TRUNG JADE, ERNESTO Chatman 564.1 IRRITABLE BOWEL SYNDROME 05/31/2008 TRUNG JADE, ERNESTO Chatman 786.2 cough 05/31/2008 BOONE IRAHETA DO 564.1 IRRITABLE BOWEL SYNDROME 05/31/2008 IRAHETA DO, BOONE K 786.2 cough 05/31/2008 IRAHETA DO, BOONE K 564.1 IRRITABLE BOWEL SYNDROME 05/31/2008 IRAHETA DO, BOONE K 786.2 cough 05/31/2008 IRAHETA DO, BOONE K 564.1 IRRITABLE BOWEL SYNDROME 05/31/2008 IRAHETA DO, BOONE K 786.2 cough 05/31/2008 564.1 IRRITABLE BOWEL SYNDROME 05/31/2008 786.2 cough 05/31/2008 564.1 IRRITABLE BOWEL SYNDROME 05/31/2008 786.2 cough 05/31/2008 564.1 IRRITABLE BOWEL SYNDROME 05/31/2008 786.2 cough 05/31/2008 564.1 IRRITABLE BOWEL SYNDROME 05/31/2008 786.2 cough 05/31/2008 IRAHETA DO, BOONE K 564.1 IRRITABLE BOWEL SYNDROME 05/31/2008 IRAHETA DO, BOONE K 786.2 cough 05/31/2008 CHALO CALDERON APRNA S 564.1 IRRITABLE BOWEL SYNDROME 05/31/2008 CHALO CALDERON APRNA S 786.2 cough 05/31/2008 IRAHETA DO, BOONE K 564.1 IRRITABLE BOWEL SYNDROME 05/31/2008 IRAHETA DO, BOONE K 786.2 cough 05/31/2008 MADJaylen MORRIS, MIGUEL L 564.1 IRRITABLE BOWEL SYNDROME 05/31/2008 MADL TUTORING ASSISTANT, MIGUEL L 786.2 cough 05/31/2008 CARLITA WAITE MD 564.1 IRRITABLE BOWEL SYNDROME 05/31/2008 CARLITA WAITE MD 786.2 cough 05/31/2008 SEAN MORRIS, DAYANA R 564.1 IRRITABLE BOWEL SYNDROME 05/31/2008 SEAN MORRIS, DAYANA R 786.2 cough 05/31/2008 ESTEE MORRIS, KATHY R 564.1 IRRITABLE BOWEL SYNDROME 05/31/2008 ESTEE MORRIS, KATHY R 786.2 cough 07/06/2008 CHIQUITA ROGERS DO 079.99 VIRAL SYNDROME 07/06/2008 WOOD CALDERON APRN S 079.99 VIRAL SYNDROME 07/06/2008 TRUNG PHD, ERNESTO Chatman 079.99 VIRAL SYNDROME 07/06/2008 IRAHETA DO BOONE K 079.99 VIRAL SYNDROME 07/06/2008 IRAHETA DO, BOONE K 079.99 VIRAL SYNDROME 07/06/2008 IRAHETA DO, BOONE K 079.99 VIRAL SYNDROME 07/06/2008 079.99 VIRAL SYNDROME 07/06/2008 079.99 VIRAL SYNDROME 07/06/2008 079.99 VIRAL SYNDROME 07/06/2008 079.99 VIRAL SYNDROME 07/06/2008 IRAHETA DO, BOONE K 079.99 VIRAL SYNDROME 07/06/2008 EL CALDERON APRNNDA S 079.99 VIRAL SYNDROME 07/06/2008 IRAHETA DO BOONE K 079.99 VIRAL SYNDROME 07/06/2008 FRANCISCO LEW APRNA L 079.99 VIRAL SYNDROME 07/06/2008 CARLITA WAITE MD 079.99 VIRAL SYNDROME 07/06/2008 DAYANA ESTRADA APRN R 079.99 VIRAL SYNDROME 07/06/2008 ELOY FONTANEZ APRNINA R 079.99 VIRAL SYNDROME 01/09/2009 CHIQUITA ROGERS DO 461.9 SINUSITIS ACUTE 01/09/2009 CHALO CALDERON APRNA S 461.9 SINUSITIS ACUTE 01/09/2009 TRUNG JADE, ERNESTO Chatman 461.9 SINUSITIS ACUTE 01/09/2009 IRAHETA DO BOONE K 461.9 SINUSITIS ACUTE 01/09/2009 IRAHETA DO BOONE K 461.9 SINUSITIS ACUTE 01/09/2009 IRAHETA DO BOONE K 461.9 SINUSITIS ACUTE 01/09/2009 461.9 SINUSITIS ACUTE 01/09/2009 461.9 SINUSITIS ACUTE 01/09/2009 461.9 SINUSITIS ACUTE 01/09/2009 461.9 SINUSITIS ACUTE 01/09/2009 IRAHETA DO BOONE K 461.9 SINUSITIS ACUTE 01/09/2009 EL CALDERON APRNNDA S 461.9 SINUSITIS ACUTE 01/09/2009 IRAHETA MARBIN SPICERA K 461.9 SINUSITIS ACUTE 01/09/2009 FRANCISCO LEW APRNA L 461.9 SINUSITIS ACUTE 01/09/2009 CARLITA WAITE MD 461.9 SINUSITIS ACUTE 01/09/2009 DAYANA ESTRADA APRN R 461.9 SINUSITIS ACUTE 01/09/2009 ESTEE MORRIS KATHY R 461.9 SINUSITIS ACUTE 06/09/2009 WERDER DO, CHIQUITA F 477.9 ALLERGIC RHINITIS 06/09/2009 WERDER DO, CHIQUITA F 729.5 foot pain (soft tissue) 06/09/2009 YUMIKO TUTORING ASSISTANT WOOD S 477.9 ALLERGIC RHINITIS 06/09/2009 YUMIKO TUTORING ASSISTANT, WOOD S 729.5 foot pain (soft tissue) 06/09/2009 TRUNG JADE, ERNESTO Chatman 477.9 ALLERGIC RHINITIS 06/09/2009 TRUNG JADE, ERNESTO Chatman 729.5 foot pain (soft tissue) 06/09/2009 IRAHETA DO BOONE K 477.9 ALLERGIC RHINITIS 06/09/2009 IRAHETA DO BOONE K 729.5 foot pain (soft tissue) 06/09/2009 IRAHETA DO BOONE K 477.9 ALLERGIC RHINITIS 06/09/2009 IRAHETA DO BOONE K 729.5 foot pain (soft tissue) 06/09/2009 IRAHETA DO BOONE K 477.9 ALLERGIC RHINITIS 06/09/2009 IRAHETA DO BOONE [...] K 729.5 foot pain (soft tissue) 06/09/2009 YUMIKO TUTORING ASSISTANT, WOOD S 477.9 ALLERGIC RHINITIS 06/09/2009 YUMIKO TUTORING ASSISTANT, WOOD S 729.5 foot pain (soft tissue) 06/09/2009 IRAHETA DO BOONE K 477.9 ALLERGIC RHINITIS 06/09/2009 IRAHETA DO, BOONE K 729.5 foot pain (soft tissue) 06/09/2009 MADL TUTORING ASSISTANT, MIGUEL L 477.9 ALLERGIC RHINITIS 06/09/2009 MADL TUTORING ASSISTANT, MIGUEL L 729.5 foot pain (soft tissue) 06/09/2009 CARLITA WAITE MD 477.9 ALLERGIC RHINITIS 06/09/2009 CARLITA WAITE MD 729.5 foot pain (soft tissue) 06/09/2009 DAYANA ESTRADA APRN R 477.9 ALLERGIC RHINITIS 06/09/2009 ALESHA ESTRADA APRNIA R 729.5 foot pain (soft tissue) 06/09/2009 ELOY FONTANEZ APRNINA R 477.9 ALLERGIC RHINITIS 06/09/2009 ESTEE MORRIS, KATHY R 729.5 foot pain (soft tissue) 07/07/2009 CHIQUITA ROGERS DO 461.1 SINUSITIS ACUTE FRONTAL 07/07/2009 WOOD CALDERON APRN S 461.1 SINUSITIS ACUTE FRONTAL 07/07/2009 TRUNG JADE, ERNESTO Chatman 461.1 SINUSITIS ACUTE FRONTAL 07/07/2009 MYRTLE SPICER BOONE K 461.1 SINUSITIS ACUTE FRONTAL 07/07/2009 MARBIN IRAHETA DOA K 461.1 SINUSITIS ACUTE FRONTAL 07/07/2009 IRAHETA DOMARBINA K 461.1 SINUSITIS ACUTE FRONTAL 07/07/2009 461.1 SINUSITIS ACUTE FRONTAL 07/07/2009 461.1 SINUSITIS ACUTE FRONTAL 07/07/2009 461.1 SINUSITIS ACUTE FRONTAL 07/07/2009 461.1 SINUSITIS ACUTE FRONTAL 07/07/2009 IRAHETA MARBIN SPICERA K 461.1 SINUSITIS ACUTE FRONTAL 07/07/2009 WOOD CALDERON APRN S 461.1 SINUSITIS ACUTE FRONTAL 07/07/2009 MARBIN IRAHETA DOA K 461.1 SINUSITIS ACUTE FRONTAL 07/07/2009 MIGUEL LEW APRN L 461.1 SINUSITIS ACUTE FRONTAL 07/07/2009 CARLITA WAITE MD 461.1 SINUSITIS ACUTE FRONTAL 07/07/2009 DAYANA ESTRADA APRN R 461.1 SINUSITIS ACUTE FRONTAL 07/07/2009 ELOY FONTANEZ APRNINA R 461.1 SINUSITIS ACUTE FRONTAL 07/09/2009 CHIQUITA ROGERS DO V58.69 LONG-TERM (CURRENT) USE OF OTHER MEDICATIONS 07/09/2009 WOOD CALDERON APRN V58.69 LONG-TERM (CURRENT) USE OF OTHER MEDICATIONS [...] LONG-TERM (CURRENT) USE OF OTHER MEDICATIONS 09/08/2009 CHIQUITA ROGERS DO F 078.19 WARTS FOOT RIGHT 09/08/2009 CHIQUITA ROGERS DO F 465.9 UPPER RESPIRATORY INFECTION 09/08/2009 WOOD CALDERON APRN S 078.19 WARTS FOOT RIGHT 09/08/2009 WOOD CALDERON APRN S 465.9 UPPER RESPIRATORY INFECTION 09/08/2009 TRUNG PHD, ERNESTO Chatman 078.19 WARTS FOOT RIGHT 09/08/2009 TRUNG PHD, ERNESTO Chatman 465.9 UPPER RESPIRATORY INFECTION 09/08/2009 BOONE IRAHETA DO 078.19 WARTS FOOT RIGHT 09/08/2009 BOONE IRAHETA DO K 465.9 UPPER RESPIRATORY INFECTION 09/08/2009 MYRLTE DOMARBINA K 078.19 WARTS FOOT RIGHT 09/08/2009 IRAHETA DO BOONE K 465.9 UPPER RESPIRATORY INFECTION 09/08/2009 IRAHETA DOMARBINA K 078.19 WARTS FOOT RIGHT 09/08/2009 IRAHETA DO BOONE K 465.9 UPPER RESPIRATORY INFECTION 09/08/2009 078.19 WARTS FOOT RIGHT 09/08/2009 465.9 UPPER RESPIRATORY INFECTION 09/08/2009 078.19 WARTS FOOT RIGHT 09/08/2009 465.9 UPPER RESPIRATORY INFECTION 09/08/2009 078.19 WARTS FOOT RIGHT 09/08/2009 465.9 UPPER RESPIRATORY INFECTION 09/08/2009 078.19 WARTS FOOT RIGHT 09/08/2009 465.9 UPPER RESPIRATORY INFECTION 09/08/2009 IRAHETA DO, BOONE K 078.19 WARTS FOOT RIGHT 09/08/2009 IRAHETA DO, BOONE K 465.9 UPPER RESPIRATORY INFECTION 09/08/2009 YUMIKO MORRIS, WOOD S 078.19 WARTS FOOT RIGHT 09/08/2009 YUMIKO MORRIS, WOOD S 465.9 UPPER RESPIRATORY INFECTION 09/08/2009 IRAHETA DO, BOONE K 078.19 WARTS FOOT RIGHT 09/08/2009 IRAHETA DO, BOONE K 465.9 UPPER RESPIRATORY INFECTION 09/08/2009 MADL TUTORING ASSISTANT, MIGUEL L 078.19 WARTS FOOT RIGHT 09/08/2009 MADJaylen TUTORING ASSISTANT, MIGUEL L 465.9 UPPER RESPIRATORY INFECTION 09/08/2009 CARLITA WAITE MD 078.19 WARTS FOOT RIGHT 09/08/2009 CARLITA WAITE MD 465.9 UPPER RESPIRATORY INFECTION 09/08/2009 SEAN TUTORING ASSISTANT, DAYANA R 078.19 WARTS FOOT RIGHT 09/08/2009 SEAN HAIRSTONN, DAYANA R 465.9 UPPER RESPIRATORY INFECTION 09/08/2009 ESTEE TUTORING ASSISTANT, KATHY R 078.19 WARTS FOOT RIGHT 09/08/2009 ESTEE TUTORING ASSISTANT, KATHY R 465.9 UPPER RESPIRATORY INFECTION 10/17/2009 CHIQUITA ROGERS DO 296.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 10/17/2009 WOOD CALDERON APRN S 296.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 10/17/2009 TRUNG JADE, ERNESTO A 296.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 10/17/2009 BOONE IRAHETA DO K 296.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 10/17/2009 IRAHETA DOMARBINA K 296.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 10/17/2009 IRAHE[place] DO BOONE K 296.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 10/17/2009 296.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 10/17/2009 296.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 10/17/2009 296.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 10/17/2009 296.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 10/17/2009 MARBIN IRAHETA DOA K 296.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 02/12/2010 Ot 250.80 02/12/2010 Ot 300.4 02/12/2010 Ot 403.90 02/12/2010 Ot 414.01 02/12/2010 Ot 427.32 02/12/2010 Ot 428.0 02/12/2010 Ot 428.21 02/12/2010 Ot 477.9 02/12/2010 Ot 530.81 02/12/2010 Ot 553.3 02/12/2010 Ot 584.9 02/12/2010 Ot 585.9 02/12/2010 Ot 716.90 02/12/2010 Ot V12.54 02/12/2010 Ot V45.77 02/12/2010 Ot V45.79 02/25/2010 CHIQUITA ROGERS DO F 427.89 SINUS TACHYCARDIA 02/25/2010 MORA ROGERS DOEN F 427.9 CARDIAC DYSRHYTHMIA UNSPECIFIED 02/25/2010 MORA ROGERS DOEN F 461.8 ACUTE PANSINUSITIS 02/25/2010 EL CALDERON APRNNDA S 427.89 SINUS TACHYCARDIA 02/25/2010 EL CALDERON APRNNDA S 427.9 CARDIAC DYSRHYTHMIA UNSPECIFIED 02/25/2010 YUMIKO MORRIS WOOD S 461.8 ACUTE PANSINUSITIS 02/25/2010 TRUNG PHD, ERNESTO Chatman 427.89 SINUS TACHYCARDIA 02/25/2010 TRUNG PHD, ERNESTO A 427.9 CARDIAC DYSRHYTHMIA UNSPECIFIED 02/25/2010 [...] DO, BOONE K 461.8 ACUTE PANSINUSITIS 02/25/2010 YUMIKOMEHDI MORRIS WOOD S 427.89 SINUS TACHYCARDIA 02/25/2010 YUMIKO APRN, WOOD S 461.8 ACUTE PANSINUSITIS 02/25/2010 IRAHETA DO, BOONE K 427.89 SINUS TACHYCARDIA 02/25/2010 IRAHETA DO BOONE K 461.8 ACUTE PANSINUSITIS 02/25/2010 MADJaylen MORRIS, MIGUEL L 427.89 SINUS TACHYCARDIA 02/25/2010 MADL ARTURO, MIGUEL L 461.8 ACUTE PANSINUSITIS 02/25/2010 CARLITA WAITE MD 427.89 SINUS TACHYCARDIA 02/25/2010 CARLITA WAITE MD 461.8 ACUTE PANSINUSITIS 02/25/2010 ALESHA ESTRADA APRNIA R 427.89 SINUS TACHYCARDIA 02/25/2010 JOSÉ ESTRADA APRNRICIA R 461.8 ACUTE PANSINUSITIS 02/25/2010 ELOY FONTANEZ APRNINA R 427.89 SINUS TACHYCARDIA 02/25/2010 KATHY FONTANEZ APRN R 461.8 ACUTE PANSINUSITIS 03/12/2010 Ot 041.4 03/12/2010 Ot 250.00 03/12/2010 Ot 276.1 03/12/2010 Ot 403.90 03/12/2010 Ot 414.00 03/12/2010 Ot 427.31 03/12/2010 Ot 428.0 03/12/2010 Ot 530.81 03/12/2010 Ot 558.9 03/12/2010 Ot 585.9 03/12/2010 Ot 593.9 03/12/2010 Ot 599.0 03/12/2010 Ot V12.54 03/12/2010 Ot V45.81 03/12/2010 Ot V58.66 03/12/2010 Ot V58.69 03/28/2010 CHIQUITA ROGERS DO F 428.0 CONGESTIVE HEART FAILURE 03/28/2010 AMIECHIQUITA PRASAD DO F 535.50 GASTRITIS 03/28/2010 CHALO CALDERON APRNA S 428.0 CONGESTIVE HEART FAILURE 03/28/2010 EL CALDERON APRNNDA S 535.50 GASTRITIS 03/28/2010 TRUNG PHD, ERNESTO Chatman 428.0 CONGESTIVE HEART FAILURE 03/28/2010 TRUNG PHD, ERNESTO Chatman 535.50 GASTRITIS 03/28/2010 IRAHETA DO, [...] WOOD S 428.0 CONGESTIVE HEART FAILURE 03/28/2010 YUMIKO MORRIS WOOD S 535.50 GASTRITIS 03/28/2010 IRAHETA DO, BOONE K 428.0 CONGESTIVE HEART FAILURE 03/28/2010 IRAHETA DO, BOONE K 535.50 GASTRITIS 03/28/2010 MADL TUTORING ASSISTANT, MIGUEL L 428.0 CONGESTIVE HEART FAILURE 03/28/2010 LOUANN TUTORING ASSISTANT, MIGUEL L 535.50 GASTRITIS 03/28/2010 RAVINDRA GLASER, CARLITA 428.0 CONGESTIVE HEART FAILURE 03/28/2010 RAVINDRA GLASER, CARLITA 535.50 GASTRITIS 03/28/2010 SEAN TUTORING ASSISTANT, DAYANA R 428.0 CONGESTIVE HEART FAILURE 03/28/2010 SEAN TUTORING ASSISTANT, DAYANA R 535.50 GASTRITIS 03/28/2010 ESTEE HAIRSTONN, KATHY R 428.0 CONGESTIVE HEART FAILURE 03/28/2010 ESTEE HAIRSTONN, KATHY R 535.50 GASTRITIS 04/19/2010 CHIQUITA ROGERS DO 693.0 DERMATITIS DUE TO DRUGS AND MEDICINES 04/19/2010 CHIQUITA ROGERS DO 787.02 nausea 04/19/2010 WOOD CALDERON APRN 693.0 DERMATITIS DUE TO DRUGS AND MEDICINES 04/19/2010 WOOD CALDERON APRN S 787.02 nausea 04/19/2010 TRUNG JADE, ERNESTO Chatman 693.0 DERMATITIS DUE TO DRUGS AND MEDICINES 04/19/2010 TRUNG JADE, ERNESTO Chatman 787.02 nausea 04/19/2010 BOONE IRAHETA DO 693.0 DERMATITIS DUE TO DRUGS AND MEDICINES 04/19/2010 BOONE IRAHETA DO 787.02 nausea 04/19/2010 BOONE IRAHETA DO 693.0 DERMATITIS DUE TO DRUGS AND MEDICINES 04/19/2010 BOONE IRAHETA DO 787.02 nausea 04/19/2010 BOONE IRAHETA DO 693.0 DERMATITIS DUE TO DRUGS AND MEDICINES 04/19/2010 BOONE IRAHETA DO 787.02 nausea 04/19/2010 693.0 DERMATITIS DUE TO DRUGS AND MEDICINES 04/19/2010 787.02 nausea 04/19/2010 693.0 DERMATITIS DUE TO DRUGS AND MEDICINES 04/19/2010 787.02 nausea 04/19/2010 693.0 DERMATITIS DUE TO DRUGS AND MEDICINES 04/19/2010 787.02 nausea 04/19/2010 693.0 DERMATITIS DUE TO DRUGS AND MEDICINES 04/19/2010 787.02 nausea 04/19/2010 BOONE IRAHETA DO 693.0 DERMATITIS DUE TO DRUGS AND MEDICINES 04/19/2010 BOONE IRAHETA DO 787.02 nausea 04/19/2010 WOOD CALDERON APRN S 693.0 DERMATITIS DUE TO DRUGS AND MEDICINES 04/19/2010 WOOD CALDERON APRN S 787.02 nausea 04/19/2010 IRAHETA BOONE SPICER K 693.0 DERMATITIS DUE TO DRUGS AND MEDICINES 04/19/2010 IRAHETA MARBIN SPICERA K 787.02 nausea 04/19/2010 MIGUEL LEW APRN L 693.0 DERMATITIS DUE TO DRUGS AND MEDICINES 04/19/2010 MIGUEL LEW APRN 787.02 nausea 04/19/2010 CARLITA WAITE MD 693.0 DERMATITIS DUE TO DRUGS AND MEDICINES 04/19/2010 CARLITA WAITE MD 787.02 nausea 04/19/2010 DAYANA ESTRADA APRN R 693.0 DERMATITIS DUE TO DRUGS AND MEDICINES 04/19/2010 DAYANA ESTRADA APRN R 787.02 nausea 04/19/2010 KATHY FONTANEZ APRN R 693.0 DERMATITIS DUE TO DRUGS AND MEDICINES 04/19/2010 KATHY FONTANEZ APRN R 787.02 nausea 05/02/2010 Ot 250.00 05/02/2010 [...] 07/25/2010 CHIQUITA ROGERS DO 780.79 FATIGUE 07/25/2010 YUMIKO TUTORING ASSISTANT, WOOD S 729.1 muscle aches, generalized (myalgias) 07/25/2010 YUMIKO MORRIS WOOD S 780.79 FATIGUE 07/25/2010 ERNESTO NINO PHD 729.1 muscle aches, generalized (myalgias) 07/25/2010 ERNESTO NINO PHD 780.79 FATIGUE 07/25/2010 IRAHETA DO BOONE K 729.1 muscle aches, generalized (myalgias) 07/25/2010 IRAHETA DO, BOONE K 780.79 FATIGUE 07/25/2010 IRAHETA DO, BOONE K 729.1 muscle aches, generalized (myalgias) 07/25/2010 IRAHETA DO, BOONE K 780.79 FATIGUE 07/25/2010 IRAHETA DO, BOONE K [...] IRA[place] DO, BOONE K 780.79 FATIGUE 07/25/2010 YUMIKO TUTORING ASSISTANT, WOOD S 729.1 muscle aches, generalized (myalgias) 07/25/2010 YUMIKO TUTORING ASSISTANT, WOOD S 780.79 FATIGUE 07/25/2010 IRAHETA DO, BOONE K 729.1 muscle aches, generalized (myalgias) 07/25/2010 IRAHETA DO, BOONE K 780.79 FATIGUE 07/25/2010 MADL TUTORING ASSISTANT, MIGUEL L 729.1 muscle aches, generalized (myalgias) 07/25/2010 MADL TUTORING ASSISTANT, MIGUEL L 780.79 FATIGUE 07/25/2010 CARLITA WAITE MD 729.1 muscle aches, generalized (myalgias) 07/25/2010 CARLITA WAITE MD 780.79 FATIGUE 07/25/2010 DAYANA ESTRADA APRN R 729.1 muscle aches, generalized (myalgias) 07/25/2010 SEAN MORRIS DAYANA R 780.79 FATIGUE 07/25/2010 ESTEE MORRIS KATHY R 729.1 muscle aches, generalized (myalgias) 07/25/2010 ESTEE MORRIS, KATHY R 780.79 FATIGUE 10/14/2010 WERDER DO, CHIQUITA F 276.7 HYPERKALEMIA 10/14/2010 WERDER DO, CHIQUITA F 593.9 RENAL INSUFFICIENCY 10/14/2010 WOOD CALDERON APRN S 276.7 HYPERKALEMIA 10/14/2010 WOOD CALDERON APRN S 593.9 RENAL INSUFFICIENCY 10/14/2010 TRUNG PHD, ERNESTO A 276.7 HYPERKALEMIA 10/14/2010 TRUNG PHD, ERNESTO A 593.9 RENAL INSUFFICIENCY 10/14/2010 IRAHETA [...] DO, BOONE K 593.9 RENAL INSUFFICIENCY 10/14/2010 WOOD CALDERON APRN S 276.7 HYPERKALEMIA 10/14/2010 WOOD CALDERON APRN S 593.9 RENAL INSUFFICIENCY 10/14/2010 MARBIN IRAHETA DOA K 276.7 HYPERKALEMIA 10/14/2010 MARBIN IRAHETA DOA K 593.9 RENAL INSUFFICIENCY 10/14/2010 MADL TUTORING ASSISTANT, MIGUEL L 276.7 HYPERKALEMIA 10/14/2010 LOUANN TUTORING ASSISTANT, MIGUEL L 593.9 RENAL INSUFFICIENCY 10/14/2010 CARLITA WAITE MD 276.7 HYPERKALEMIA 10/14/2010 CARLITA WAITE MD 593.9 RENAL INSUFFICIENCY 10/14/2010 ESTRADA TUTORING ASSISTANT, DAYANA R 276.7 HYPERKALEMIA 10/14/2010 ESTRADA TUTORING ASSISTANT, DAYANA R 593.9 RENAL INSUFFICIENCY 10/14/2010 ESTEE TUTORING ASSISTANT, KATHY R 276.7 HYPERKALEMIA 10/14/2010 ESTEE TUTORING ASSISTANT, KATHY R 593.9 RENAL INSUFFICIENCY 12/02/2010 Ot 250.00 12/02/2010 Ot 785.1 02/17/2011 CHIQUITA ROGERS DO 296.40 MO BIPOLAR MANIC UNSPECIFIED 02/17/2011 WOOD CALDERON APRN S 296.40 MO BIPOLAR MANIC UNSPECIFIED 02/17/2011 TRUNG JADE, ERNESTO Chatman 296.40 MO BIPOLAR MANIC UNSPECIFIED 02/17/2011 BOONE IRAHETA DO K 296.40 MO BIPOLAR MANIC UNSPECIFIED 02/17/2011 BOONE IRAHETA DO K 296.40 MO BIPOLAR MANIC UNSPECIFIED 02/17/2011 BOONE IRAHETA DO K 296.40 MO BIPOLAR MANIC UNSPECIFIED 02/17/2011 296.40 MO BIPOLAR MANIC UNSPECIFIED 02/17/2011 296.40 MO BIPOLAR MANIC UNSPECIFIED 02/17/2011 296.40 MO BIPOLAR MANIC UNSPECIFIED 02/17/2011 296.40 MO BIPOLAR MANIC UNSPECIFIED 02/17/2011 BOONE IRAHETA DO K 296.40 MO BIPOLAR MANIC UNSPECIFIED 04/16/2011 Ot 414.01 CORONARY ATHEROSCLEROSIS OF [place] CORON 04/16/2011 Ot 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 04/21/2011 CHIQUITA ROGERS DO 307.47 SI DYSSOMNIA NOS 04/21/2011 YUMIKO TUTORING ASSISTANT, WOOD S 307.47 SI DYSSOMNIA NOS 04/21/2011 TRUNG JADE, ERNESTO Chatman 307.47 SI DYSSOMNIA NOS 04/21/2011 BOONE IRAHETA DO 307.47 SI DYSSOMNIA NOS 04/21/2011 MYRTLE SPICER BOONE K 307.47 SI DYSSOMNIA NOS 04/21/2011 MYRTLE SPICER BOONE K 307.47 SI DYSSOMNIA NOS 04/21/2011 307.47 SI DYSSOMNIA NOS 04/21/2011 307.47 SI DYSSOMNIA NOS 04/21/2011 307.47 SI DYSSOMNIA NOS 04/21/2011 307.47 SI DYSSOMNIA NOS 04/21/2011 MYRTLE SPICER BOONE Belinda 307.47 SI DYSSOMNIA NOS 05/07/2011 Ot 250.02 [...] CORONARY ATHEROSCLEROSIS OF UNSPECIFIED TYPE OF VESSEL [place] OR GRAFT 07/30/2011 CHIQUITA ROGERS DO V45.81 POSTSURGICAL AORTOCORONARY BYPASS STATUS 07/30/2011 WOOD CALDERON APRN 272.4 DYSLIPIDEMIA 07/30/2011 WOOD CALDERON APRN S 414.00 CORONARY ATHEROSCLEROSIS OF UNSPECIFIED TYPE OF VESSEL [place] OR GRAFT 07/30/2011 WOOD CALDERON APRN V45.81 POSTSURGICAL AORTOCORONARY BYPASS STATUS 07/30/2011 ERNESTO NINO PHD 272.4 DYSLIPIDEMIA 07/30/2011 ERNESTO NINO PHD 414.00 CORONARY ATHEROSCLEROSIS OF UNSPECIFIED TYPE OF VESSEL [place] OR GRAFT 07/30/2011 ERNESTO NINO PHD V45.81 Postsurgical Aortocoronary Bypass Status 07/30/2011 BOONE IRAHETA DO K 272.4 DYSLIPIDEMIA 07/30/2011 MARBIN IRAHETA DOA K 414.00 CORONARY ATHEROSCLEROSIS OF UNSPECIFIED TYPE OF VESSEL [place] OR GRAFT 07/30/2011 MYRTLE SPICER BOONE K V45.81 Postsurgical Aortocoronary Bypass Status 07/30/2011 MYRTLE SPICER BOONE K 272.4 DYSLIPIDEMIA 07/30/2011 MARBIN IRAHETA DOA K 414.00 CORONARY ATHEROSCLEROSIS OF UNSPECIFIED TYPE OF VESSEL [place] OR GRAFT 07/30/2011 MARBIN IRAHETA DOA K V45.81 Postsurgical Aortocoronary Bypass Status 07/30/2011 MARBIN IRAHETA DOA K 272.4 DYSLIPIDEMIA 07/30/2011 MARBIN IRAHETA DOA K 414.00 CORONARY ATHEROSCLEROSIS OF UNSPECIFIED TYPE OF VESSEL [place] OR GRAFT 07/30/2011 MARBIN IRAHETA DOA K V45.81 Postsurgical Aortocoronary Bypass Status 07/30/2011 272.4 DYSLIPIDEMIA 07/30/2011 414.00 CORONARY ATHEROSCLEROSIS OF UNSPECIFIED TYPE OF VESSEL [place] OR GRAFT 07/30/2011 V45.81 Postsurgical Aortocoronary Bypass Status 07/30/2011 272.4 DYSLIPIDEMIA 07/30/2011 414.00 CORONARY ATHEROSCLEROSIS OF UNSPECIFIED TYPE OF VESSEL [place] OR GRAFT 07/30/2011 V45.81 Postsurgical Aortocoronary Bypass Status 07/30/2011 272.4 DYSLIPIDEMIA 07/30/2011 414.00 CORONARY ATHEROSCLEROSIS OF UNSPECIFIED TYPE OF VESSEL [place] OR GRAFT 07/30/2011 V45.81 Postsurgical Aortocoronary Bypass Status 07/30/2011 272.4 DYSLIPIDEMIA 07/30/2011 414.00 CORONARY ATHEROSCLEROSIS OF UNSPECIFIED TYPE OF VESSEL [place] OR GRAFT 07/30/2011 V45.81 Postsurgical Aortocoronary Bypass Status 07/30/2011 MARBIN IRAHETA DOA K 272.4 DYSLIPIDEMIA 07/30/2011 MARBIN IRAHETA DOA K 414.00 CORONARY ATHEROSCLEROSIS OF UNSPECIFIED TYPE OF VESSEL [place] OR GRAFT 07/30/2011 MARBIN IRAHETA DOA K V45.81 Postsurgical Aortocoronary Bypass Status 07/30/2011 CHALO CALDERON APRNA S 414.00 CORONARY ARTERY DISEASE 07/30/2011 WOOD CALDERON APRN S V45.81 Postsurgical Aortocoronary Bypass Status 07/30/2011 BOONE IRAHETA DO K 414.00 CORONARY ARTERY DISEASE 07/30/2011 MARBIN IRAHETA DOA K V45.81 Postsurgical Aortocoronary Bypass Status 07/30/2011 LOUANN TUTORING ASSISTANT, MIGUEL L 414.00 CORONARY ARTERY DISEASE 07/30/2011 LOUANN TUTORING ASSISTANT, MIGUEL L V45.81 Postsurgical Aortocoronary Bypass Status 07/30/2011 CARLITA WAITE MD 414.00 CORONARY ARTERY DISEASE 07/30/2011 CARLITA WAITE MD V45.81 Postsurgical Aortocoronary Bypass Status 07/30/2011 SEAN MORRIS, DAYANA R 414.00 CORONARY ARTERY DISEASE 07/30/2011 SEAN MORRIS DAYANA R V45.81 Postsurgical Aortocoronary Bypass Status 07/30/2011 ESTEE MORRIS, KATHY R 414.00 CORONARY ARTERY DISEASE 07/30/2011 ESTEE MORRIS, KATHY R V45.81 Postsurgical Aortocoronary Bypass Status 09/30/2011 CHIQUITA ROGERS DO F 300.00 AN ANXIETY UNSPEC 09/30/2011 CHIQUITA ROGERS DO F 300.4 MO DYSTHYMIC DISORDER 09/30/2011 WOOD CALDERON APRN S 300.00 AN ANXIETY UNSPEC 09/30/2011 WOOD CALDERON APRN S 300.4 MO DYSTHYMIC DISORDER 09/30/2011 TRUNG PHD, ERNESTO Chatman 300.00 AN ANXIETY UNSPEC 09/30/2011 TRUNG JADE, ERNESTO Chatman 300.4 MO DYSTHYMIC DISORDER 09/30/2011 BOONE IRAHETA DO K 300.00 AN ANXIETY UNSPEC 09/30/2011 BOONE IRAHETA DO K 300.4 MO DYSTHYMIC DISORDER 09/30/2011 BOONE IRAHETA DO K 300.00 AN ANXIETY UNSPEC 09/30/2011 BOONE IRAHETA DO K 300.4 MO DYSTHYMIC DISORDER 09/30/2011 BOONE IRAHETA DO K 300.00 AN ANXIETY UNSPEC 09/30/2011 MARBIN IRAHETA DOA K 300.4 MO DYSTHYMIC DISORDER 09/30/2011 300.00 AN ANXIETY UNSPEC 09/30/2011 300.4 MO DYSTHYMIC DISORDER 09/30/2011 300.00 AN ANXIETY UNSPEC 09/30/2011 300.4 MO DYSTHYMIC DISORDER 09/30/2011 300.00 AN ANXIETY UNSPEC 09/30/2011 300.4 MO DYSTHYMIC DISORDER 09/30/2011 300.00 AN ANXIETY UNSPEC 09/30/2011 300.4 MO DYSTHYMIC DISORDER 09/30/2011 MARBIN IRAHETA DOA K 300.00 AN ANXIETY UNSPEC 09/30/2011 MYRTLE SPICER BOONE K 300.4 MO DYSTHYMIC DISORDER 10/30/2011 CHIQUITA ROGERS DO 465.9 ACUTE UPPER RESPIRATORY INFECTIONS OF UNSPECIFIED SITE 10/30/2011 WOOD CALDERON APRN 465.9 ACUTE UPPER RESPIRATORY INFECTIONS OF UNSPECIFIED SITE 10/30/2011 TRUNG JADE, ERNESTO Chatman 465.9 Acute Upper Respiratory Infections Of Unspecified Site 10/30/2011 BOONE IRAHETA DO K 465.9 Acute Upper Respiratory Infections Of Unspecified Site 10/30/2011 BOONE IRAHETA DO K 465.9 Acute Upper Respiratory Infections Of Unspecified Site 10/30/2011 BOONE IRAHETA DO K 465.9 Acute Upper Respiratory Infections Of Unspecified Site 10/30/2011 465.9 Acute Upper Respiratory Infections Of Unspecified Site 10/30/2011 465.9 Acute Upper Respiratory Infections Of Unspecified Site 10/30/2011 465.9 Acute Upper Respiratory Infections Of Unspecified Site 10/30/2011 465.9 Acute Upper Respiratory Infections Of Unspecified Site 10/30/2011 BOONE IRAHETA DO K 465.9 Acute Upper Respiratory Infections Of Unspecified Site 10/30/2011 WOOD CALDERON APRN S 465.9 Acute Upper Respiratory Infections Of Unspecified Site 10/30/2011 BOONE IRAHETA DO K 465.9 Acute Upper Respiratory Infections Of Unspecified Site 10/30/2011 MIGUEL LEW APRN 465.9 Acute Upper Respiratory Infections Of Unspecified Site 10/30/2011 CARLITA WAITE MD 465.9 Acute Upper Respiratory Infections Of Unspecified Site 10/30/2011 DAYANA ESTRADA APRN 465.9 Acute Upper Respiratory Infections Of Unspecified Site 10/30/2011 KATHY FONTANEZ APRN 465.9 Acute Upper Respiratory Infections Of Unspecified Site 01/15/2012 Ot 780.50 SLEEP DISTURBANCE NOS 02/18/2012 WOOD CALDERON APRN S 428.0 CONGESTIVE HEART FAILURE UNSPECIFIED 02/18/2012 TRUNG JADE, ERNESTO Chatman 428.0 Congestive Heart Failure Unspecified 02/18/2012 IRAHETA DO, BOONE K 428.0 Congestive Heart Failure Unspecified 02/18/2012 IRAHETA DO, BOONE K 428.0 Congestive Heart Failure Unspecified 02/18/2012 IRAHETA DO, BOONE K 428.0 Congestive Heart Failure Unspecified 02/18/2012 428.0 Congestive Heart Failure Unspecified 02/18/2012 428.0 Congestive Heart Failure Unspecified 02/18/2012 428.0 Congestive Heart Failure Unspecified 02/18/2012 428.0 Congestive Heart Failure Unspecified 02/18/2012 IRAHETA DO, BOONE K 428.0 Congestive Heart Failure Unspecified 02/18/2012 WOOD CALDERON APRN S 428.0 Congestive Heart Failure Unspecified 02/18/2012 IRAHTEA DO, BOONE K 428.0 Congestive Heart Failure Unspecified 02/18/2012 MIGUEL LEW APRN 428.0 Congestive Heart Failure Unspecified 02/18/2012 RAVINDRA GLASER, CARLITA 428.0 Congestive Heart Failure Unspecified 02/18/2012 DAYANA ESTRADA APRN 428.0 Congestive Heart Failure Unspecified 02/18/2012 KATHY FONTANEZ APRN 428.0 Congestive Heart Failure Unspecified 04/27/2012 IRAHETA [...] BLOOD IN STOOL 04/27/2012 787.91 DIARRHEA 04/27/2012 BOOEN IRAHETA DO K 455.6 HEMORRHOIDS NOS 04/27/2012 MARBIN IRAHETA DOA K 578.1 BLOOD IN STOOL 04/27/2012 IRAHETA DO BOONE K 787.91 DIARRHEA 05/24/2012 BOONE IRAHETA DO K 625.9 PELVIC PAIN 05/24/2012 BOONE IRAHETA DO K V65.49 OTHER SPECIFIED COUNSELING 05/24/2012 MARBIN IRAHETA DOA K V76.10 BREAST CANCER SCREENING 05/24/2012 625.9 PELVIC PAIN 05/24/2012 V65.49 OTHER SPECIFIED COUNSELING 05/24/2012 V76.10 BREAST CANCER SCREENING 05/24/2012 625.9 PELVIC PAIN 05/24/2012 V65.49 OTHER SPECIFIED COUNSELING 05/24/2012 V76.10 BREAST CANCER SCREENING 05/24/2012 625.9 PELVIC PAIN 05/24/2012 V65.49 OTHER SPECIFIED COUNSELING 05/24/2012 V76.10 BREAST CANCER SCREENING 05/24/2012 625.9 PELVIC PAIN 05/24/2012 V65.49 OTHER SPECIFIED COUNSELING 05/24/2012 V76.10 BREAST CANCER SCREENING 05/24/2012 BOONE IRAHETA DO 625.9 PELVIC PAIN 05/24/2012 MARBIN IRAHETA DOA Belinda V65.49 OTHER SPECIFIED COUNSELING 05/24/2012 MARBIN IRAHETA DOA K V76.10 BREAST CANCER SCREENING 08/16/2012 796.2 ELEVATED BLOOD PRESSURE READING WITHOUT DIAGNOSIS OF HYPERTENSION 08/16/2012 796.2 ELEVATED BLOOD PRESSURE READING WITHOUT DIAGNOSIS OF HYPERTENSION 08/16/2012 796.2 ELEVATED BLOOD PRESSURE READING WITHOUT DIAGNOSIS OF HYPERTENSION 08/16/2012 BOONE IRAHETA DO K 796.2 ELEVATED BLOOD PRESSURE READING WITHOUT DIAGNOSIS [...] ESTRADA APRN R 461.9 SINUSITIS ACUTE 06/25/2013 ESTEE TUTORING ASSISTANT, KATHY R 461.9 SINUSITIS ACUTE 08/25/2013 MIGUEL LEW APRN L 724.3 SCIATICA 08/25/2013 CARLITA WAITE MD 724.3 SCIATICA 08/25/2013 SEAN TUTORING ASSISTANTDAYANA Rodriguez R 724.3 SCIATICA 08/25/2013 ESTEE MORRIS, KATHY R 724.3 SCIATICA 09/06/2013 CARLITA WAITE MD [...] WAITE MD Ot 414.01 CORONARY ATHEROSCLEROSIS OF [place] CORON 09/06/2013 CARLITA WAITE MD Ot 414.8 CHR ISCHEMIC HRT DIS NEC 09/06/2013 CARLITA WAITE MD Ot 428.0 CONGESTIVE HEART FAILURE NOS 09/06/2013 CARLITA WAITE MD Ot 458.0 ORTHOSTATIC HYPOTENSION 09/06/2013 CARLITA WAITE MD Ot 585.9 CHRONIC KIDNEY DISEASE, UNSPECIFIED 09/06/2013 CARLITA WAITE MD Ot 593.9 RENAL URETERAL DIS NOS 09/06/2013 CARLITA WATIE MD Ot V12.54 PERSONAL HX OF TIA, CEREBRAL INFARCTION 09/06/2013 CARLITA WAITE MD Ot V15.81 HX OF PAST NONCOMPLIANCE 09/06/2013 CARLITA WAITE MD Ot V58.67 LONG-TERM (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 03/16/2014 ESTEE ARTURO KATHY R 462 ACUTE PHARYNGITIS 03/16/2014 ESTEE TUTORING ASSISTANT, KATHY R 786.2 COUGH 05/14/2014 Ot 250.00 DIAB MIKA [...] 414.01 06/20/2015 Ot 427.9 06/20/2015 SANDRO GLASER FACWilder, ALI FACP CCDS Ot 250.00 06/20/2015 SANDRO GLASER FACC, ALI FACP CCDS Ot 272.4 06/20/2015 SANDOR GLASER FACC, ALI FACP CCDS Ot 414.00 06/20/2015 SANDRO GLASER FACC, ALI FACP CCDS Ot 447.9 06/20/2015 SANDRO GLASER FACC, ALI FACP CCDS Ot 585.9 06/20/2015 SORAYA MARTINS Ot E11.65 TYPE 2 DIABETES MELLITUS WITH HYPERGLYCE 06/20/2015 SORAYA MARTINS Ot Z79.4 SIGN WRITER HAND (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 06/20/2015 SORAYA MARTINS Ot Z95.0 PRESENCE OF CARDIAC PACEMAKER 06/20/2015 SORAYA MARTINS L Ot Z95.1 PRESENCE OF AORTOCORONARY BYPASS GRAFT 06/20/2015 BAIMA, BARRY L PLATE FURNACE OPERATOR Ot E78.5 06/20/2015 BAIMA, BARRY L PLATE FURNACE OPERATOR Ot I10 06/20/2015 BAIMA, BARRY L PLATE FURNACE OPERATOR Ot I25.10 06/20/2015 BAIMA, BARRY L PLATE FURNACE OPERATOR Ot Z95.0 06/21/2015 BAIMA, BARRY L PLATE FURNACE OPERATOR Ot E78.5 06/21/2015 BAIMA, BARRY L PLATE FURNACE OPERATOR Ot I10 06/21/2015 BAIMA, BARRY L PLATE FURNACE OPERATOR Ot I25.10 06/21/2015 BAIMA, BARRY L PLATE FURNACE OPERATOR Ot Z95.0 06/21/2015 SORAYA MARTINS L Ot E11.65 06/21/2015 SORAYA MARTINS L Ot Z79.4 06/21/2015 SORAYA MARTINS L Ot Z95.0 06/21/2015 SORAYA MARTINS L Ot Z95.1 06/22/2015 BAIMA, BARRY L PLATE FURNACE OPERATOR Ot E78.5 HYPERLIPIDEMIA, UNSPECIFIED 06/22/2015 BAIMA, BARRY L PLATE FURNACE OPERATOR Ot I10 ESSENTIAL (PRIMARY) HYPERTENSION 06/22/2015 BAIMA, BARRY L PLATE FURNACE OPERATOR Ot I25.10 ATHSCL HEART DISEASE OF [place] CORONARY 06/22/2015 BAIMA, BARRY L PLATE FURNACE OPERATOR Ot Z95.0 PRESENCE OF CARDIAC PACEMAKER 06/22/2015 BAIMA, BARRY L PLATE FURNACE OPERATOR Ot E78.5 HYPERLIPIDEMIA, UNSPECIFIED 06/22/2015 BAIMA, BARRY L PLATE FURNACE OPERATOR Ot I10 ESSENTIAL (PRIMARY) HYPERTENSION 06/22/2015 BAIMA, BARRY L PLATE FURNACE OPERATOR Ot I25.10 ATHSCL HEART DISEASE OF [place] CORONARY 06/22/2015 BAIMA, BARRY L PLATE FURNACE OPERATOR Ot Z95.0 PRESENCE OF CARDIAC PACEMAKER 11/26/2015 ANDREW BINGHAM DO Ot R11.0 NAUSEA 11/26/2015 ANDREW BINGHAM DO Ot 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 11/28/2015 ANDREW BINGHAM DO Ot R11.0 NAUSEA 11/28/2015 ANDREW BINGHAM DO Ot 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 12/04/2015 W 250.80 12/04/2015 W 272.4 12/04/2015 A 290.41 VASCULAR DEMENTIA, WITH DELIRIUM 12/04/2015 W 298.9 12/04/2015 W 401.0 12/04/2015 W 414.01 12/04/2015 W 443.9 PERIPHERAL VASCULAR DISEASE, UNSPECIFIED 12/04/2015 W 585.9 12/04/2015 W 790.5 OTHER NONSPECIFIC ABNORMAL SERUM ENZYME LEVELS 12/04/2015 W E11.65 TYPE 2 DIABETES MELLITUS WITH HYPERGLYCEMIA 12/04/2015 W E78.5 HYPERLIPIDEMIA , UNSPECIFIED 12/04/2015 A F01.51 VASCULAR DEMENTIA WITH BEHAVIORAL DISTURBANCE 12/04/2015 W F29 12/04/2015 W I10 ESSENTIAL ( PRIMARY) HYPERTENSION 12/04/2015 W I25.10 ATHSCL HEART DISEASE OF [place] CORONARY ARTERY W/O ANG PCTRS 12/04/2015 W I73.9 PERIPHERAL VASCULAR DISEASE, UNSPECIFIED 12/04/2015 W N18.9 CHRONIC KIDNEY DISEASE, UNSPECIFIED 12/04/2015 W R74.8 ABNORMAL LEVELS OF OTHER SERUM ENZYMES 12/04/2015 W V45.01 CARDIAC PACEMAKER IN SITU 12/04/2015 W Z95.0 PRESENCE OF CARDIAC PACEMAKER 05/18/2016 Ho Villanueva 250.00 DIABETES MELLITUS WITHOUT MENTION OF COMPLICATION, TYPE II OR UNSPECIFIED TYPE, NOT STATED UNCONTROLLED 05/18/2016 Ho Villanueva 272.4 OTHER AND UNSPECIFIED HYPERLIPIDEMIA 05/18/2016 Ho Villanueva A 295.90 05/18/2016 Ho Villanueva 296.20 05/18/2016 Ho Villanueva 401.0 05/18/2016 Ho Villanueva 414.01 CORONARY ATHEROSCLEROSIS OF [place] CORONARY ARTERY 05/18/2016 Ho Villanueva 428.9 HEART FAILURE, UNSPECIFIED 05/18/2016 Ho Villanueva E11.9 TYPE 2 DIABETES MELLITUS WITHOUT COMPLICATIONS 05/18/2016 Ho Villanueva E78.5 HYPERLIPIDEMIA, UNSPECIFIED 05/18/2016 Ho Villanueva F20.9 SCHIZOPHRENIA, UNSPECIFIED 05/18/2016 Ho Villanueva F32.9 MAJOR DEPRESSIVE DISORDER, SINGLE EPISODE, UNSPECIFIED 05/18/2016 Ho Villanueva W I10 ESSENTIAL (PRIMARY) HYPERTENSION 05/18/2016 Ho Villanueva W I25.10 ATHSCL HEART DISEASE OF [place] CORONARY ARTERY W/O ANG PCTRS 05/18/2016 Ho Villanueva W I50.9 HEART FAILURE, UNSPECIFIED 09/25/2016 Ot 414.01 CORONARY ATHEROSCLEROSIS OF [place] CORON 09/25/2016 Ot 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 09/25/2016 SANDRO GLASER FACC, ALI FACP CCDS Ot 250.00 DIAB [place] WO COMPL, TYPE II OR UNSPEC TY 09/25/2016 SANDRO GLASER FACC, ALI FACP CCDS Ot 272.4 HYPERLIPIDEMIA NEC/NOS 09/25/2016 SANDRO GLASER FACC, ALI FACP CCDS Ot 414.00 CORON ATHEROSCLER NOS TYPE VESSEL, NATIV 09/25/2016 SANDRO STANLEYC, ALI FACP CCDS Ot 447.9 ARTERIAL DISEASE NOS 09/25/2016 SANDRO GLASER FACC, ALI FACP CCDS Ot 585.9 CHRONIC KIDNEY DISEASE, UNSPECIFIED 09/25/2016 BARRY REYES PLATE FURNACE OPERATOR Ot E78.5 HYPERLIPIDEMIA, UNSPECIFIED 09/25/2016 BARRY REYES L PLATE FURNACE OPERATOR Ot I10 ESSENTIAL (PRIMARY) HYPERTENSION 09/25/2016 BARRY REYES L PLATE FURNACE OPERATOR Ot I25.10 ATHSCL HEART DISEASE OF [place] CORONARY 09/25/2016 BARRY REYES PLATE FURNACE OPERATOR Ot Z95.0 PRESENCE OF CARDIAC PACEMAKER 09/25/2016 Ot 414.01 CORONARY ATHEROSCLEROSIS OF [place] CORON 09/25/2016 Ot 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 09/26/2016 Ot 414.01 CORONARY ATHEROSCLEROSIS OF [place] CORON 09/26/2016 Ot 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 09/26/2016 SANDRO STANLEYC, ALI FACP CCDS Ot 250.00 DIAB [place] WO COMPL, TYPE II OR UNSPEC TY 09/26/2016 SANDRO GLASER FACC, ALI FACP CCDS Ot 272.4 HYPERLIPIDEMIA NEC/NOS 09/26/2016 SANDRO GLASER FACC, ALI FACP CCDS Ot 414.00 CORON ATHEROSCLER NOS TYPE VESSEL, NATIV 09/26/2016 SANDRO GLASER FACC, ALI FACP CCDS Ot 447.9 ARTERIAL DISEASE NOS 09/26/2016 SANDRO STANLEYC, ALI FACP CCDS Ot 585.9 CHRONIC KIDNEY DISEASE, UNSPECIFIED 09/26/2016 BARRY REYES PLATE FURNACE OPERATOR Ot E78.5 HYPERLIPIDEMIA, UNSPECIFIED 09/26/2016 BARRY REYES PLATE FURNACE OPERATOR Ot I10 ESSENTIAL (PRIMARY) HYPERTENSION 09/26/2016 BARRY REYES PLATE FURNACE OPERATOR Ot I25.10 ATHSCL HEART DISEASE OF [place] CORONARY 09/26/2016 EVBARRY WHITTINGTON PLATE FURNACE OPERATOR Ot Z95.0 PRESENCE OF CARDIAC PACEMAKER 09/26/2016 CINDY THOMPSON MD Ot E11.9 TYPE 2 DIABETES MELLITUS WITHOUT COMPLIC 09/26/2016 CINDY THOMPSON MD Ot F20.9 SCHIZOPHRENIA, UNSPECIFIED 09/26/2016 CINDY THOMPSON MD Ot Z79.4 SKILLED NURSING (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 09/26/2016 CINDY THOMPSON MD Ot Z79.82 SIGN WRITER HAND (CURRENT) USE OF ASPIRIN 09/26/2016 CINDY THOMPSON MD Ot Z79.899 OTHER SIGN WRITER HAND (CURRENT) DRUG THERAPY 09/26/2016 CINDY THOMPSON MD Ot Z95.0 PRESENCE OF CARDIAC PACEMAKER 09/26/2016 CINDY THOMPSON MD Ot Z95.1 PRESENCE OF AORTOCORONARY BYPASS GRAFT 09/26/2016 CINDY THOMPSON MD Ot E11.9 TYPE 2 DIABETES MELLITUS WITHOUT COMPLIC 09/26/2016 CINDY THOMPSON MD Ot F20.9 SCHIZOPHRENIA, UNSPECIFIED 09/26/2016 CINDY THOMPSON MD Ot Z79.4 SKILLED NURSING (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 09/26/2016 CINDY THOMPSON MD Ot Z79.82 SIGN WRITER HAND (CURRENT) USE OF ASPIRIN 09/26/2016 CINDY THOMPSON MD Ot Z79.899 OTHER SIGN WRITER HAND (CURRENT) DRUG THERAPY 09/26/2016 CINDY THOMPSON MD Ot Z95.0 PRESENCE OF CARDIAC PACEMAKER 09/26/2016 CINDY THOMPSON MD Ot Z95.1 PRESENCE OF AORTOCORONARY BYPASS GRAFT 10/02/2016 Ot 414.01 CORONARY ATHEROSCLEROSIS OF [place] CORON 10/02/2016 Ot 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 10/02/2016 SANDRO GLASER FACWilder, TRAY TURCIOS CCDS Ot 250.00 DIAB MI[place] WO COMPL, TYPE II OR UNSPEC TY 10/02/2016 SANDRO MD FACC, ALI FACP CCDS Ot 272.4 HYPERLIPIDEMIA NEC/NOS 10/02/2016 SANDRO GLASER [facility], ALI FACP CCDS Ot 414.00 CORON ATHEROSCLER NOS TYPE VESSEL, NATIV 10/02/2016 SANDRO GLASER [facility], ALI FACP CCDS Ot 447.9 ARTERIAL DISEASE NOS 10/02/2016 SANDRO GLASER [facility], ALI FACP CCDS Ot 585.9 CHRONIC KIDNEY DISEASE, UNSPECIFIED 10/02/2016 ERIC BARRY L PLATE FURNACE OPERATOR Ot E78.5 HYPERLIPIDEMIA, UNSPECIFIED 10/02/2016 EVNELSY BARRY L PLATE FURNACE OPERATOR Ot I10 ESSENTIAL (PRIMARY) HYPERTENSION 10/02/2016 EVNELSY BARRY [place] PLATE FURNACE OPERATOR Ot I25.10 ATHSCL HEART DISEASE OF [place] CORONARY 10/02/2016 EVNELSY BARRY [place] PLATE FURNACE OPERATOR Ot Z95.0 PRESENCE OF CARDIAC PACEMAKER 10/13/2016 SHAN JUDAH Roldan 250.00 10/13/2016 SHAN JUDAH Roldan 272.4 OTHER AND UNSPECIFIED HYPERLIPIDEMIA 10/13/2016 JUDAH TORREZ 290.41 VASCULAR DEMENTIA, WITH DELIRIUM 10/13/2016 SHAN JUDAH Roldan 401.0 MALIGNANT ESSENTIAL HYPERTENSION 10/13/2016 SHAN JUDAH Roldan 414.01 10/13/2016 SHAN JUDAH Roldan E11.9 TYPE 2 DIABETES MELLITUS WITHOUT COMPLICATIONS 10/13/2016 SHAN JUDAH Roldan E78.5 HYPERLIPIDEMIA, UNSPECIFIED 10/13/2016 SHAN YESENIA F01.51 VASCULAR DEMENTIA WITH BEHAVIORAL DISTURBANCE 10/13/2016 SHAN JUDAH Roldan I10 ESSENTIAL (PRIMARY) HYPERTENSION 10/13/2016 SHAN JUDAH Roldan I25.10 ATHSCL HEART DISEASE OF [place] CORONARY ARTERY W/O ANG PCTRS 10/13/2016 SHAN JUDAH Roldan 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), AND CEREBRAL INFARCTION WITHOUT RESIDUAL DEFICITS 10/13/2016 SHAN JUDAH Roldan Z86.73 PRSNL HX OF TIA (TIA), AND CEREB INFRC W/O RESID DEFICITS 10/21/2016 CINDY THOMPSON MD Ot E05.90 THYROTOXICOSIS, UNSP WITHOUT THYROTOXIC 10/21/2016 CINDY THOMPSON MD Ot E11.9 TYPE 2 DIABETES MELLITUS WITHOUT COMPLIC 10/21/2016 CINDY THOMPSON MD, Ot E78.5 HYPERLIPIDEMIA, UNSPECIFIED 10/21/2016 CINDY THOMPSON MD, Ot E87.1 HYPO-OSMOLALITY AND HYPONATREMIA 10/21/2016 CINDY THOMPSON MD Ot F23 BRIEF PSYCHOTIC DISORDER 10/21/2016 CINDY THOMPSON MD, Ot I10 ESSENTIAL (PRIMARY) HYPERTENSION 10/21/2016 CINDY THOMPSON MD, Ot I25.10 ATHSCL HEART DISEASE OF [place] CORONARY 10/21/2016 CINDY THOMPSON MD, Ot 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 10/21/2016 CINDY THOMPSON MD, Ot N39.0 URINARY TRACT INFECTION, SITE NOT SPECIF 10/21/2016 CINDY THOMPSON MD, Ot R94.31 ABNORMAL ELECTROCARDIOGRAM [ECG] [EKG] 10/21/2016 CINDY THOMPSON MD, Ot Z79.4 SIGN WRITER HAND (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 10/21/2016 CINDY THOMPSON MD, Ot Z95.1 PRESENCE OF AORTOCORONARY BYPASS GRAFT 10/21/2016 CINDY THOMPSON MD, Ot Z95.810 PRESENCE OF AUTOMATIC (IMPLANTABLE) CARD 11/11/2016 JUDAH TORREZ 296.34 MAJOR DEPRESSIVE DISORDER, RECURRENT EPISODE, SEVERE DEGREE, SPECIFIED WITH PSYCHOTIC BEHAVIOR 11/11/2016 JUDAH TORREZ F33.3 MAJOR DEPRESSV DISORDER, RECURRENT, SEVERE W PSYCH SYMPTOMS 11/24/2016 BARRY REYES PLATE FURNACE OPERATOR Ot I25.10 ATHSCL HEART DISEASE OF [place] CORONARY 11/25/2016 SANDRO STANLEY, ALI FACP CCDS Ot 250.00 DIAB MIKA [...] CHRONIC KIDNEY DISEASE, UNSPECIFIED 11/25/2016 BARRY REYES PLATE FURNACE OPERATOR Ot E78.5 HYPERLIPIDEMIA, UNSPECIFIED 11/25/2016 BARRY REYSE PLATE FURNACE OPERATOR Ot I10 ESSENTIAL (PRIMARY) HYPERTENSION 11/25/2016 BARRY REYES PLATE FURNACE OPERATOR Ot I25.10 ATHSCL HEART DISEASE OF [place] CORONARY 11/25/2016 DUSTIN RYEESHER L PLATE FURNACE OPERATOR Ot Z95.0 PRESENCE OF CARDIAC PACEMAKER 11/25/2016 BAIMADUSTINBARRY L PLATE FURNACE OPERATOR Ot I25.10 ATHSCL HEART DISEASE OF [place] CORONARY 01/06/2017 BAIMADUSTINBARRY L PLATE FURNACE OPERATOR Ot E78.4 OTHER HYPERLIPIDEMIA 01/06/2017 BAIMA BARRY L PLATE FURNACE OPERATOR Ot I25.10 ATHSCL HEART DISEASE OF [place] CORONARY 01/06/2017 BAIMA BARRY L PLATE FURNACE OPERATOR Ot I65.23 OCCLUSION AND STENOSIS OF [place] 01/06/2017 BAIMA BARRY L PLATE FURNACE OPERATOR Ot R26.89 OTHER ABNORMALITIES OF GAIT AND MOBILITY 01/06/2017 BAIMA BARRY L PLATE FURNACE OPERATOR Ot Z95.0 PRESENCE OF CARDIAC PACEMAKER 02/04/2017 BAIMA BARRY L PLATE FURNACE OPERATOR Ot I25.10 ATHSCL HEART DISEASE OF [place] CORONARY 02/04/2017 BAIMADUSTINBARRY L PLATE FURNACE OPERATOR Ot I65.23 OCCLUSION AND STENOSIS OF [place] 02/04/2017 BAIMADUSTINBARRY L PLATE FURNACE OPERATOR Ot R06.09 OTHER FORMS OF DYSPNEA 02/12/2017 BAIMA BARRY L PLATE FURNACE OPERATOR Ot I25.10 ATHSCL HEART DISEASE OF [place] CORONARY 02/12/2017 BAIMADUSTINBARRY L PLATE FURNACE OPERATOR Ot I65.23 OCCLUSION AND STENOSIS OF [place] 02/12/2017 BAIMADUSTINBARRY L PLATE FURNACE OPERATOR Ot R06.09 OTHER FORMS OF DYSPNEA 02/16/2017 STEVEN VILLELA MD Ot E11.9 TYPE 2 DIABETES MELLITUS WITHOUT COMPLIC 02/16/2017 STEVEN VILLELA MD Ot F20.9 SCHIZOPHRENIA, UNSPECIFIED 02/16/2017 STEVEN VILLELA MD Ot F32.9 MAJOR DEPRESSIVE DISORDER, SINGLE EPISOD 02/16/2017 STEVEN VILLELA MD Ot F41.9 ANXIETY DISORDER, UNSPECIFIED 02/16/2017 STEVEN VILLELA MD Ot I25.10 ATHSCL HEART DISEASE OF [place] CORONARY 02/16/2017 STEVEN VILLELA MD Ot K02.9 DENTAL CARIES, UNSPECIFIED 02/16/2017 STEVEN VILLELA MD Ot K08.89 OTHER SPECIFIED DISORDERS OF TEETH AND S 02/16/2017 STEVEN VILLELA MD Ot Z79.4 SIGN WRITER HAND (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 02/16/2017 STEVEN VILLELA MD Ot Z79.82 SKILLED NURSING (CURRENT) USE OF ASPIRIN 02/16/2017 STEVEN VILLELA [...] MD Ot I25.10 ATHSCL HEART DISEASE OF [place] CORONARY 02/25/2017 STEVEN VILLELA MD Ot K02.9 DENTAL CARIES, UNSPECIFIED 02/25/2017 STEVEN VILLELA MD Ot K08.89 OTHER SPECIFIED DISORDERS OF TEETH AND S 02/25/2017 STEVEN VILLELA MD Ot Z79.4 SKILLED NURSING (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 02/25/2017 STEVEN VILLELA MD Ot Z79.82 SIGN WRITER HAND (CURRENT) USE OF ASPIRIN 02/25/2017 STEVEN VILLELA MD Ot Z86.73 PRSNL HX OF TIA (TIA), AND CEREB INFRC W 02/25/2017 STEVEN VILLELA MD Ot Z90.710 ACQUIRED ABSENCE OF BOTH CERVIX AND UTER 02/25/2017 STEVEN VILLELA MD Ot Z95.0 PRESENCE OF CARDIAC PACEMAKER 02/25/2017 STEVEN VILLELA MD Ot Z95.1 PRESENCE OF AORTOCORONARY BYPASS GRAFT 02/26/2017 BARRY REYES PLATE FURNACE OPERATOR Ot E11.22 TYPE 2 DIABETES MELLITUS W DIABETIC MACHINE SILK SCREEN PRINTER 02/26/2017 BARRY REYES PLATE FURNACE OPERATOR Ot E66.9 OBESITY, UNSPECIFIED 02/26/2017 BARRY REYES PLATE FURNACE OPERATOR Ot F20.9 SCHIZOPHRENIA, UNSPECIFIED 02/26/2017 ERIC BARRY [place] PLATE FURNACE OPERATOR Ot F32.9 MAJOR DEPRESSIVE DISORDER, SINGLE EPISOD 02/26/2017 EVNELSY BARRY L PLATE FURNACE OPERATOR Ot I12.9 HYPERTENSIVE CHRONIC KIDNEY DISEASE W ST 02/26/2017 EVNELSY BARRY L PLATE FURNACE OPERATOR Ot I25.10 ATHSCL HEART DISEASE OF [place] CORONARY 02/26/2017 EVNELSY BARRY L PLATE FURNACE OPERATOR Ot I25.5 ISCHEMIC CARDIOMYOPATHY 02/26/2017 EVNELSY BARRY L PLATE FURNACE OPERATOR Ot I65.23 OCCLUSION AND STENOSIS OF [place] 02/26/2017 EVNELSY BARRY L PLATE FURNACE OPERATOR Ot 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 02/26/2017 ERIC BARRY L PLATE FURNACE OPERATOR Ot N18.2 CHRONIC KIDNEY DISEASE, STAGE 2 (MILD) 02/26/2017 ERIC BARRY L PLATE FURNACE OPERATOR Ot Z68.30 BODY MASS INDEX (BMI) 30.0-30.9, ADULT 02/26/2017 DUSTIN REYESHER L PLATE FURNACE OPERATOR Ot Z79.4 SKILLED NURSING (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 02/26/2017 DUSTIN REYESHER L PLATE FURNACE OPERATOR Ot Z79.899 OTHER SIGN WRITER HAND (CURRENT) DRUG THERAPY 02/26/2017 ERIC BARRY L PLATE FURNACE OPERATOR Ot Z95.1 PRESENCE OF AORTOCORONARY BYPASS GRAFT 02/26/2017 BARRY REYES L PLATE FURNACE OPERATOR Ot Z95.810 PRESENCE OF AUTOMATIC (IMPLANTABLE) CARD 03/02/2017 ERIC BARRY Jaylen PLATE FURNACE OPERATOR Ot E11.22 TYPE 2 DIABETES MELLITUS W DIABETIC MACHINE SILK SCREEN PRINTER 03/02/2017 BARRY REYES L PLATE FURNACE OPERATOR Ot E66.9 OBESITY, UNSPECIFIED 03/02/2017 ERIC BARRY L PLATE FURNACE OPERATOR Ot F20.9 SCHIZOPHRENIA, UNSPECIFIED 03/02/2017 ERIC BARRY L PLATE FURNACE OPERATOR Ot F32.9 MAJOR DEPRESSIVE DISORDER, SINGLE EPISOD 03/02/2017 ERIC BARRY L PLATE FURNACE OPERATOR Ot I12.9 HYPERTENSIVE CHRONIC KIDNEY DISEASE W ST 03/02/2017 ERIC BARRY L PLATE FURNACE OPERATOR Ot I25.10 ATHSCL HEART DISEASE OF [place] CORONARY 03/02/2017 ERIC BARRY L PLATE FURNACE OPERATOR Ot I25.5 ISCHEMIC CARDIOMYOPATHY 03/02/2017 ERIC BARRY L PLATE FURNACE OPERATOR Ot I65.23 OCCLUSION AND STENOSIS OF [place] 03/02/2017 BARRY REYES PLATE FURNACE OPERATOR Ot 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 03/02/2017 BARRY REYES PLATE FURNACE OPERATOR Ot N18.2 CHRONIC KIDNEY DISEASE, STAGE 2 (MILD) 03/02/2017 BARRY REYES PLATE FURNACE OPERATOR Ot Z68.30 BODY MASS INDEX (BMI) 30.0-30.9, ADULT 03/02/2017 EVBARRY WHITTINGTON PLATE FURNACE OPERATOR Ot Z79.4 SKILLED NURSING (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 03/02/2017 EVBARRY WHITTINGTON PLATE FURNACE OPERATOR Ot Z79.899 OTHER SIGN WRITER HAND (CURRENT) DRUG THERAPY 03/02/2017 BARRY REYES PLATE FURNACE OPERATOR Ot Z95.1 PRESENCE OF AORTOCORONARY BYPASS GRAFT 03/02/2017 EVNELSY BARRY [place] PLATE FURNACE OPERATOR Ot Z95.810 PRESENCE OF AUTOMATIC (IMPLANTABLE) CARD 03/10/2017 EVBARRY WHITTINGTON PLATE FURNACE OPERATOR Ot E78.4 OTHER HYPERLIPIDEMIA 03/10/2017 EVNELSY BARRY [place] PLATE FURNACE OPERATOR Ot I25.10 ATHSCL HEART DISEASE OF [place] CORONARY 03/10/2017 EVNELSY BARRY [place] PLATE FURNACE OPERATOR Ot I25.5 ISCHEMIC CARDIOMYOPATHY 03/10/2017 EVBARRY WHITTINGTON PLATE FURNACE OPERATOR Ot N18.3 CHRONIC KIDNEY DISEASE, STAGE 3 (MODERAT 03/25/2017 SANDRO GLASER FACC, TRAY FACP CCDS Ot E05.90 THYROTOXICOSIS, UNSP WITHOUT THYROTOXIC 03/25/2017 SANDRO GLASER FACC, TRAY FACP CCDS Ot E11.22 TYPE 2 DIABETES MELLITUS W DIABETIC MACHINE SILK SCREEN PRINTER 03/25/2017 SANDRO GLASER FACC, TRAY FACP CCDS Ot E78.5 HYPERLIPIDEMIA, UNSPECIFIED 03/25/2017 SANDRO GLASER FACC, TRAY FACP CCDS Ot F20.9 SCHIZOPHRENIA, UNSPECIFIED 03/25/2017 SANDRO GLASER FACC, TRAY FACP CCDS Ot I12.9 HYPERTENSIVE CHRONIC KIDNEY DISEASE W ST 03/25/2017 SANDRO GLASER FACC, TRAY FACP CCDS Ot I25.10 ATHSCL HEART DISEASE OF [place] CORONARY 03/25/2017 SANDRO GLASER FACC, TRAY FACP CCDS Ot 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 03/25/2017 SANDRO GLASER FACC, TRAY FACP CCDS Ot M79.604 PAIN IN RIGHT LEG 03/25/2017 SANDRO GLASER FACC, TRAY FACP CCDS Ot M79.605 PAIN IN LEFT LEG 03/25/2017 SANDRO GLASER FACC, ALI FACP CCDS Ot N18.3 CHRONIC KIDNEY DISEASE, STAGE 3 (MODERAT 03/25/2017 SANDRO GLASER FACC, ALI FACP CCDS Ot Z91.19 PATIENT'S NONCOMPLIANCE W [facility] 03/25/2017 SANDRO GLASER FACC, TRAY FACP CCDS Ot Z95.1 PRESENCE OF AORTOCORONARY BYPASS GRAFT 03/25/2017 SANDRO GLASER FACC, TRAY FACP CCDS Ot Z95.5 PRESENCE OF CORONARY ANGIOPLASTY IMPLANT 03/25/2017 SANDRO GLASER FACC, TRAY FACP CCDS Ot Z95.810 PRESENCE OF AUTOMATIC (IMPLANTABLE) CARD 03/27/2017 SANDRO GLASER FACC, TRAY FACP CCDS Ot E05.90 THYROTOXICOSIS, UNSP WITHOUT THYROTOXIC 03/27/2017 SANDRO GLASER FACC, TRAY FACP CCDS Ot E11.22 TYPE 2 DIABETES MELLITUS W DIABETIC MACHINE SILK SCREEN PRINTER 03/27/2017 SANDRO GLASER FACC, TRAY FACP CCDS Ot E78.5 HYPERLIPIDEMIA, UNSPECIFIED 03/27/2017 SANDRO GLASER FACC, TRAY FACP CCDS Ot F20.9 SCHIZOPHRENIA, UNSPECIFIED 03/27/2017 SANDRO GLASER FACC, TRAY FACP CCDS Ot F32.9 MAJOR DEPRESSIVE DISORDER, SINGLE EPISOD 03/27/2017 SANDRO GLASER FACC, ALI FACP CCDS Ot I12.9 HYPERTENSIVE CHRONIC KIDNEY DISEASE W ST 03/27/2017 SANDRO GLASER FACC, TRAY FACP CCDS Ot I25.10 ATHSCL HEART DISEASE OF [place] CORONARY 03/27/2017 SANDRO GLASER FACC, ALI FACP CCDS Ot I25.5 ISCHEMIC CARDIOMYOPATHY 03/27/2017 SANDRO GLASER FACC, ALI FACP CCDS Ot I69.328 OT SPEECH/LANG DEFICITS FOLLOWING CEREB 03/27/2017 SANDRO GLASER FACC, ALI FACP CCDS Ot M79.604 PAIN IN RIGHT LEG 03/27/2017 SANDRO GLASER FACC, ALI FACP CCDS Ot M79.605 PAIN IN LEFT LEG 03/27/2017 SANDRO GLASER FACC, TRAY FACP CCDS Ot N18.3 CHRONIC KIDNEY DISEASE, STAGE 3 (MODERAT 03/27/2017 TRAY VARMA MD, FACC, FACP CCDS Ot Z79.02 SKILLED NURSING (CURRENT) USE OF 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 03/27/2017 TRAY VARMA MD, FACC FACP CCDS Ot Z79.4 SIGN WRITER HAND (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 03/27/2017 TRAY VARMA MD, FACC FACP CCDS Ot Z79.899 OTHER SKILLED NURSING (CURRENT) DRUG THERAPY 03/27/2017 TRAY VARMA MD, FACC FACP CCDS Ot Z91.19 PATIENT'S NONCOMPLIANCE W [facility] 03/27/2017 TRAY VARMA MD, FACC FACP CCDS Ot Z95.1 PRESENCE OF AORTOCORONARY BYPASS GRAFT 03/27/2017 SANDRO GLASER FACC, TRAY FACP CCDS Ot Z95.5 PRESENCE OF CORONARY ANGIOPLASTY IMPLANT 03/27/2017 TRAY VARMA MD, FACC FACP CCDS Ot Z95.810 PRESENCE OF AUTOMATIC (IMPLANTABLE) CARD 05/01/2017 BARRY REYES PLATE FURNACE OPERATOR Ot R10.31 RIGHT LOWER QUADRANT PAIN 05/01/2017 BAIBARRY WHITTINGTON PLATE FURNACE OPERATOR Ot Z98.890 OTHER SPECIFIED POSTPROCEDURAL STATES 05/06/2017 BAIBARRY WHITTINGTON PLATE FURNACE OPERATOR Ot R10.31 RIGHT LOWER QUADRANT PAIN 05/06/2017 BAIMABARRY PLATE FURNACE OPERATOR Ot Z98.890 OTHER SPECIFIED POSTPROCEDURAL STATES Procedures Code Description Performed By Performed On Otkirstin Tho Ruiz 02/12/2012 37675 ROUTINE VENIPUNCTURE 02/18/2012 98919 MICRO ALBUMIN-IN HOUSE 02/18/2012 43324 ROUTINE VENIPUNCTURE 02/18/2012 59533 CMP 02/18/2012 68392 LIPID PANEL 02/18/2012 8456704 GFR CALC (RESULT ONLY) 02/18/2012 80231 DIGOXIN 02/19/2012 54403 CBC 02/19/2012 09929 A1C (RML) 02/20/2012 15819 INDIV PSYTX 45/50 MIN 02/25/2012 17179 ROUTINE VENIPUNCTURE 04/27/2012 68224 CBC 04/27/2012 85509 CMP 04/27/2012 4064912 GFR CALC (RESULT ONLY) 04/27/2012 Mikal Duncan 04/27/2012 65625 PSYTX PT&/FAMILY 45 MINUTES 04/28/2012 16889 A1C (IN-HOUSE) 05/19/2012 15517 HEMOCCULT 05/24/2012 04543 UA W/ CULTURE IF INDICATED 05/24/2012 01544 MAMMOGRAM, SCREENING 05/25/2012 24978 ROUTINE VENIPUNCTURE 06/23/2012 50626 CBC 06/23/2012 79151 CMP 06/23/2012 04870 LIPID PANEL 06/23/2012 8289459 GFR CALC (RESULT ONLY) 06/23/2012 65303 DIGOXIN 06/24/2012 18445 BNP 06/25/2012 48898 INDIV PSYTX 45/50 MIN 09/08/2012 Cardiolog Sandro, Ali 10/13/2012 02795 ROUTINE VENIPUNCTURE 10/13/2012 26907 CMP 10/13/2012 91330 LIPID PANEL 10/13/2012 77096 MAGNESIUM 10/13/2012 8670989 GFR CALC (RESULT ONLY) 10/13/2012 47710 DIGOXIN 10/13/2012 17613 ROUTINE VENIPUNCTURE 11/18/2012 75588 CMP 11/18/2012 91531 LIPID PANEL 11/18/2012 7491960 GFR CALC (RESULT ONLY) 11/18/2012 81504 DIGOXIN 11/18/2012 17436 ROUTINE VENIPUNCTURE 05/26/2013 18330 MICRO ALBUMIN-IN HOUSE 05/26/2013 60574 A1C (IN-HOUSE) 05/26/2013 56473 MICROALBUMIN 05/26/2013 1743515 GFR CALC (RESULT ONLY) 05/26/2013 37198 BMP 05/26/2013 35185 XRAY SI JOINTS LESS THAN 3 VIEWS 08/25/2013 91016 XRAY HIP RIGHT UNILATERAL MIN 2 VIEWS 08/25/2013 89.45 PACEMAKER RATE CHECK 09/05/2013 Results Test Result Range CBC With Differential/Platelet - 03/20/16 10:50 WBC 6.0 x10E3/uL 3.4-10.8 RBC 4.49 x10E6/uL 3.77-5.28 Hemoglobin 13.0 g/dL 11.1-15.9 Hematocrit 39.9 % 34.0-46.6 MCV 89 fL 79-97 MCH 29.0 pg 26.6-33.0 MCHC 32.6 g/dL 31.5-35.7 RDW 14.0 % 12.3-15.4 Platelets 177 x10E3/uL 150-379 Neutrophils 70 % Lymphs 22 % Monocytes 5 % Eos 2 % Basos 1 % Neutrophils (Absolute) 4.2 x10E3/uL 1.4-7.0 Lymphs (Absolute) 1.3 x10E3/uL 0.7-3.1 Monocytes(Absolute) 0.3 x10E3/uL 0.1-0.9 Eos (Absolute) 0.1 x10E3/uL 0.0-0.4 Baso (Absolute) 0.0 x10E3/uL 0.0-0.2 Immature Granulocytes 0 % Immature Grans (Abs) 0.0 x10E3/uL 0.0-0.1 Comp. Metabolic Panel (14) - 03/20/16 10:50 Glucose, Serum 287 mg/dL 65-99 BUN 20 mg/dL 8-27 Creatinine, Serum 1.03 mg/dL 0.57-1.00 eGFR If NonAfricn Am 56 mL/min/1.73 >59 eGFR If Africn Am 65 mL/min/1.73 >59 BUN/Creatinine Ratio 19 11-26 Sodium, Serum 137 mmol/L 134-144 Potassium, Serum 4.5 mmol/L 3.5-5.2 Chloride, Serum 97 mmol/L 96-106 Carbon Dioxide, Total 24 mmol/L 18-29 Calcium, Serum 9.3 mg/dL 8.7-10.3 Protein, Total, Serum 7.1 g/dL 6.0-8.5 Albumin, Serum 4.2 g/dL 3.6-4.8 Globulin, Total 2.9 g/dL 1.5-4.5 A/G Ratio 1.4 1.1-2.5 Bilirubin, Total 0.4 mg/dL 0.0-1.2 Alkaline Phosphatase, S 135 IU/L 39-117 AST (SGOT) 23 IU/L 0-40 ALT (SGPT) 22 IU/L 0-32 Lipid Panel - 03/20/16 10:50 Cholesterol, Total 243 mg/dL 100-199 Triglycerides 203 mg/dL 0-149 HDL Cholesterol 50 mg/dL >39 VLDL Cholesterol Wilder 41 mg/dL 5-40 LDL Cholesterol Calc 152 mg/dL 0-99 Urine Culture, Routine - 03/20/16 10:50 Urine Culture, Routine Note Urine Culture, Routine - 04/11/16 17:19 Urine Culture, Routine Note Comprehensive Metabolic Panel - 05/18/16 18:58 Albumin 3.7 g/dL 3.6-5.1 ALP 117 U/L 35-130 ALT 33 U/L 6-45 Anion Gap 15 6-14 AST 27 U/L 2-40 BUN 16 mg/dL 5-25 Calcium 9.2 mg/dL 8.3-10.4 Chloride 105 mmol/L 95-114 CO2 24 mEq/L 22-33 Creat 1.03 mg/dL 0.50-1.50 eGFR 53 mL/min/1.73m2 >59 Globulin 3.5 g/dL 2.3-3.5 Glucose 208 mg/dL 70-110 Osmo 296 280-295 Potassium 4.3 mmol/L 3.5-5.3 Sodium 140 mmol/L 134-148 TBil 0.4 mg/dL 0.2-1.2 TP 7.2 g/dL 6.0-8.3 Digoxin - 05/18/16 19:38 Digoxin 0.4 ng/mL 0.5-1.5 Complete blood count (CBC) with automated white [...] culture - 09/25/16 21:50 Bacterial urine culture [id number] NRG COLONY COUNT 10,000/ML - 100,000/ML NRG [...] susceptibility test by minimum inhibitory concentration - NRG Vitamin D, 25 OH - 09/26/16 13:37 Vitamin D, 25 OH 35.30 ng/mL 25.00-100.00 Hemoglobin A1C - 09/27/16 05:20 % A1C 7.30 % 5.40-6.60 AvGlu 183 mg/dL 70-110 Lipid Panel - 09/27/16 05:20 C/HDL 6.3 3.7-6.7 Cholesterol 226 mg/dL 100-240 HDL 36 mg/dL 30-85 LDL-Calculated 143 mg/dL 0-100 Trig 234 mg/dL 35-160 VLDL 47 mg/dL 0-42 Urine drug screening test - 10/20/16 22:49 [...] - 10/21/16 05:05 Digoxin 0.65 ng/mL 0.80-2.00 CBC - 12/31/16 09:52 WBC 7.2 x10E3/uL 3.4-10.8 RBC 4.58 x10E6/uL 3.77-5.28 Hemoglobin 13.4 g/dL 11.1-15.9 Hematocrit 39.9 % 34.0-46.6 MCV 87 fL 79-97 MCH 29.3 pg 26.6-33.0 MCHC 33.6 g/dL 31.5-35.7 RDW 13.2 % 12.3-15.4 Platelets 170 x10E3/uL 150-379 Neutrophils 77 % Not Estab. Lymphs 15 % Not Estab. Monocytes 5 % Not Estab. Eos 2 % Not Estab. Basos 1 % Not Estab. Neutrophils (Absolute) 5.5 x10E3/uL 1.4-7.0 Lymphs (Absolute) 1.1 x10E3/uL 0.7-3.1 Monocytes(Absolute) 0.4 x10E3/uL 0.1-0.9 Eos (Absolute) 0.2 x10E3/uL 0.0-0.4 Baso (Absolute) 0.0 x10E3/uL 0.0-0.2 Immature Granulocytes 0 % Not Estab. Immature Grans (Abs) 0.0 x10E3/uL 0.0-0.1 CMP - 12/31/16 09:52 Glucose, Serum 195 mg/dL 65-99 BUN 20 mg/dL 8-27 Creatinine, Serum 1.13 mg/dL 0.57-1.00 eGFR If NonAfricn Am 50 mL/min/1.73 >59 eGFR If Africn Am 58 mL/min/1.73 >59 BUN/Creatinine Ratio 18 12-28 Sodium, Serum 141 mmol/L 134-144 Potassium, Serum 5.3 mmol/L 3.5-5.2 Chloride, Serum 100 mmol/L 96-106 Carbon Dioxide, Total 25 mmol/L 18-29 Calcium, Serum 9.0 mg/dL 8.7-10.3 Protein, Total, Serum 7.3 g/dL 6.0-8.5 Albumin, Serum 4.3 g/dL 3.6-4.8 Globulin, Total 3.0 g/dL 1.5-4.5 A/G Ratio 1.4 1.2-2.2 Bilirubin, Total 0.4 mg/dL 0.0-1.2 Alkaline Phosphatase, S 125 IU/L 39-117 AST (SGOT) 19 IU/L 0-40 ALT (SGPT) 18 IU/L 0-32 CBC With Differential/Platelet - 12/31/16 09:52 WBC 7.2 x10E3/uL 3.4-10.8 RBC 4.58 x10E6/uL 3.77-5.28 Hemoglobin 13.4 g/dL 11.1-15.9 Hematocrit 39.9 % 34.0-46.6 MCV 87 fL 79-97 MCH 29.3 pg 26.6-33.0 MCHC 33.6 g/dL 31.5-35.7 RDW 13.2 % 12.3-15.4 Platelets 170 x10E3/uL 150-379 Neutrophils 77 % Not Estab. Lymphs 15 % Not Estab. Monocytes 5 % Not Estab. Eos 2 % Not Estab. Basos 1 % Not Estab. Neutrophils (Absolute) 5.5 x10E3/uL 1.4-7.0 Lymphs (Absolute) 1.1 x10E3/uL 0.7-3.1 Monocytes(Absolute) 0.4 x10E3/uL 0.1-0.9 Eos (Absolute) 0.2 x10E3/uL 0.0-0.4 Baso (Absolute) 0.0 x10E3/uL 0.0-0.2 Immature Granulocytes 0 % Not Estab. Immature Grans (Abs) 0.0 x10E3/uL 0.0-0.1 Comp. Metabolic Panel (14) - 12/31/16 09:52 Glucose, Serum 195 mg/dL 65-99 BUN 20 mg/dL 8-27 Creatinine, Serum 1.13 mg/dL 0.57-1.00 eGFR If NonAfricn Am 50 mL/min/1.73 >59 eGFR If Africn Am 58 mL/min/1.73 >59 BUN/Creatinine Ratio 18 12-28 Sodium, Serum 141 mmol/L 134-144 Potassium, Serum 5.3 mmol/L 3.5-5.2 Chloride, Serum 100 mmol/L 96-106 Carbon Dioxide, Total 25 mmol/L 18-29 Calcium, Serum 9.0 mg/dL 8.7-10.3 Protein, Total, Serum 7.3 g/dL 6.0-8.5 Albumin, Serum 4.3 g/dL 3.6-4.8 Globulin, Total 3.0 g/dL 1.5-4.5 A/G Ratio 1.4 1.2-2.2 Bilirubin, Total 0.4 mg/dL 0.0-1.2 Alkaline Phosphatase, S 125 IU/L 39-117 AST (SGOT) 19 IU/L 0-40 ALT (SGPT) 18 IU/L 0-32 Automated blood complete blood count (hemogram) panel [...] - 02/25/17 04:53 Digoxin 0.49 ng/mL 0.80-2.00 Automated blood complete blood count (hemogram) panel - 03/24/17 08:12 Blood leukocytes automated count (number/volume) 8.6 10*3/uL 4.3-11.0 Blood erythrocytes automated count (number/volume) 4.45 10*6/uL 4.35-5.85 Venous blood hemoglobin measurement (mass/volume) 13.1 g/dL 11.5-16.0 Blood hematocrit (volume fraction) 38 % 35-52 Automated erythrocyte mean corpuscular volume 85 [foz_us] 80-99 Automated erythrocyte mean corpuscular hemoglobin (mass per erythrocyte) 29 pg 25-34 Automated erythrocyte mean corpuscular hemoglobin concentration measurement ( mass/volume) 35 g/dL 32-36 Automated erythrocyte distribution width ratio 12.9 % 10.0-14.5 Automated blood platelet count (count/volume) 166 10*3/uL 130-400 Automated blood platelet mean volume measurement 10.2 [foz_us] 7.4-10.4 PT panel in platelet poor plasma by coagulation assay - 03/24/17 08:12 Prothrombin time (PT) in platelet poor plasma by coagulation assay 13.2 s 12.2-14.7 INR in platelet poor plasma or blood by coagulation assay 1.0 0.8-1.4 Activated partial thromboplastin time (aPTT) in platelet poor plasma bycoagulation assay - 03/24/17 08:12 Activated partial thromboplastin time (aPTT) in platelet poor plasma bycoagulation assay 27 s 24-35 Comprehensive metabolic panel - 03/24/17 08:12 Serum or plasma sodium measurement (moles/volume) 136 mmol/L 135-145 Serum or plasma potassium measurement (moles/volume) 4.9 mmol/L 3.6-5.0 Serum or plasma chloride measurement (moles/volume) 101 mmol/L 98-107 Carbon dioxide 23 mmol/L 21-32 Serum or plasma anion gap determination (moles/volume) 12 mmol/L 5-14 Serum or plasma urea nitrogen measurement (mass/volume) 24 mg/dL 7-18 Serum or plasma creatinine measurement (mass/volume) 1.47 mg/dL 0.60-1.30 Serum or plasma urea nitrogen/creatinine mass ratio 16 NRG Serum or plasma creatinine measurement with calculation of estimated glomerular filtration rate 35 NRG Serum or plasma glucose measurement (mass/volume) 347 mg/dL 70-105 Serum or plasma calcium measurement (mass/volume) 9.6 mg/dL 8.5-10.1 Serum or plasma total bilirubin measurement (mass/volume) 0.4 mg/dL 0.1-1.0 Serum or plasma alkaline phosphatase measurement (enzymatic activity/volume) 153 U/L 40-136 Serum or plasma aspartate aminotransferase measurement (enzymatic activity/ volume) 24 U/L 5-34 Serum or plasma alanine aminotransferase measurement (enzymatic activity/volume ) 38 U/L 0-55 Serum or plasma protein measurement (mass/volume) 7.8 g/dL 6.4-8.2 Serum or plasma albumin measurement (mass/volume) 4.2 g/dL 3.2-4.5 Lipid 1996 panel - 03/24/17 08:12 Serum or plasma triglyceride measurement (mass/volume) 120 mg/dL <150 Serum or plasma cholesterol measurement (mass/volume) 164 mg/dL < 200 Serum or plasma cholesterol in HDL measurement (mass/volume) 47 mg/ dL 40-60 Cholesterol in LDL [mass/volume] in serum or plasma by direct assay 89 mg/dL 1-129 Serum or plasma cholesterol in VLDL measurement (mass/volume) 24 mg/ dL 5-40 Digoxin - 03/24/17 08:12 Digoxin 0.56 ng/mL 0.80-2.00 Methicillin resistant Staphylococcus aureus (MRSA) screening culture - 08:12 Methicillin resistant Staphylococcus aureus (MRSA) screening culture NEG NRG Capillary blood glucose measurement by glucometer (mass/volume) - 03/24/17 16: 33 Capillary blood glucose measurement by glucometer (mass/volume) 219 mg/dL 70-110 Capillary blood glucose measurement by glucometer (mass/volume) - 03/24/17 20: 04 Capillary blood glucose measurement by glucometer (mass/volume) 226 mg/dL 70-110 Automated blood complete blood count (hemogram) panel - 03/25/17 05:20 Blood leukocytes automated count (number/volume) 6.1 10*3/uL 4.3-11.0 Blood erythrocytes automated count (number/volume) 3.82 10*6/uL 4.35-5.85 Venous blood hemoglobin measurement (mass/volume) 11.3 g/dL 11.5-16.0 Blood hematocrit (volume fraction) 34 % 35-52 Automated erythrocyte mean corpuscular volume 88 [foz_us] 80-99 Automated erythrocyte mean corpuscular hemoglobin (mass per erythrocyte) 30 pg 25-34 Automated erythrocyte mean corpuscular hemoglobin concentration measurement ( mass/volume) 34 g/dL 32-36 Automated erythrocyte distribution width ratio 13.2 % 10.0-14.5 Automated blood platelet count (count/volume) 142 10*3/uL 130-400 Automated blood platelet mean volume measurement 10.2 [foz_us] 7.4-10.4 Whole blood basic metabolic panel - 03/25/17 05:20 Serum or plasma sodium measurement (moles/volume) 136 mmol/L 135-145 Serum or plasma potassium measurement (moles/volume) 5.4 mmol/L 3.6-5.0 Serum or plasma chloride measurement (moles/volume) 104 mmol/L 98-107 Carbon dioxide 23 mmol/L 21-32 Serum or plasma anion gap determination (moles/volume) 9 mmol/L 5-14 Serum or plasma urea nitrogen measurement (mass/volume) 19 mg/dL 7-18 Serum or plasma creatinine measurement (mass/volume) 1.20 mg/dL 0.60-1.30 Serum or plasma urea nitrogen/creatinine mass ratio 16 NRG Serum or plasma creatinine measurement with calculation of estimated glomerular filtration rate 45 NRG Serum or plasma glucose measurement (mass/volume) 223 mg/dL 70-105 Serum or plasma calcium measurement (mass/volume) 8.5 mg/dL 8.5-10.1 Capillary blood glucose measurement by glucometer (mass/volume) - 03/25/17 05: 33 Capillary blood glucose measurement by glucometer (mass/volume) 244 mg/dL 70-110 Serum or plasma potassium measurement (moles/volume) - 03/25/17 08:35 Serum or plasma potassium measurement (moles/volume) 4.4 mmol/L 3.6-5.0 Capillary blood glucose measurement by glucometer (mass/volume) - 03/25/17 11: 06 Capillary blood glucose measurement by glucometer (mass/volume) 183 mg/dL 70-110 Encounters ACCT No. Visit Date/Time Discharge Status Pt. Type Provider Facility Loc./Unit Complaint [id number] 03/16/2014 15:41:00 03/16/2014 23:59:59 CLS Outpatient ESTEE KATHY MORRIS Gage [id number] 11/16/2013 14:20:00 11/16/2013 23:59:59 CLS Outpatient ESTRADA TUTORING ASSISTANTDAYANA Gage [id number] 09/26/2013 17:01:00 09/26/2013 23:59:59 CLS Outpatient CARLITA WAITE MD [id number] 08/25/2013 15:02:00 08/25/2013 23:59:59 CLS Outpatient LOUANN MORRISFRANCISCOLurdes [place] [id number] 06/25/2013 13:11:00 06/25/2013 23:59:59 CLS Outpatient BOONE IRAHETA DO [id number] 05/26/2013 10:59:00 05/26/2013 23:59:59 CLS Outpatient WOOD CALDERON APRN [id number] 11/18/2012 10:09:00 11/18/2012 23:59:59 CLS Outpatient BOONE IRAHETA DO [id number] 05/24/2012 13:54:00 05/24/2012 23:59:59 CLS Outpatient BOONE IRAHETA DO [id number] 05/10/2012 14:28:00 05/10/2012 23:59:59 CLS Outpatient BOONE IRAHETA DO [id number] 04/27/2012 13:46:00 04/27/2012 23:59:59 CLS Outpatient BOONE IRAHETA DO [id number] 02/25/2012 16:14:00 02/25/2012 23:59:59 CLS Outpatient ERNESTO NINO PHD [id number] 02/18/2012 14:57:00 02/18/2012 23:59:59 CLS Outpatient WOOD CALDERON APRN [id number] 12/24/2011 13:52:00 12/24/2011 23:59:59 CLS Outpatient CHIQUITA ROGERS DO [id number] 10/13/2012 08:44:00 Document Registration [id number] 09/07/2012 14:15:00 Document Registration [id number] 08/16/2012 14:07:00 Document Registration [id number] 06/23/2012 09:34:00 Document Registration [id number] 05/04/2017 14:15:00 05/04/2017 23:59:59 CLS Outpatient WOOD CALDERON APRN [facility] [id number] 12/31/2016 08:40:00 Document Registration [id number] 04/13/2016 20:05:00 Document Registration [id number] 04/30/2017 14:43:00 04/30/2017 23:59:59 CLS Outpatient BAIMA, BARRY L PLATE FURNACE OPERATOR [facility] RAD R10.31 RT GROIN PAIN [id number] 03/24/2017 07:44:00 03/25/2017 11:25:00 DIS Outpatient SANDRO GLASER FACC, TRAY TURCIOS CCDS [facility] CATH CAD,ISCHEMIC CM [id number] 03/04/2017 15:30:00 03/04/2017 23:59:59 CLS Outpatient BAIMA, BARRY L PLATE FURNACE OPERATOR [facility] LAB I25.10, N18.3, I25.5 , E78.4 [id number] 02/24/2017 08:00:00 02/25/2017 10:30:00 DIS Outpatient BAIMA, BARRY L PLATE FURNACE OPERATOR [facility] CATH CAD,CAROTID ARTERIAL DISEASE [id number] 02/16/2017 05:23:00 02/16/2017 05:55:00 DIS Emergency MANOHAR GLASER, STEVEN Vogel [facility] ER GEN PAIN TOOTH PAIN [id number] 02/03/2017 07:24:00 02/03/2017 23:59:59 CLS Outpatient BAIMA, BARRY L PLATE FURNACE OPERATOR [facility] CARD CAD [id number] 12/02/2016 08:30:00 12/02/2016 23:59:59 CLS Preadmit BAIMA, BARRY L PLATE FURNACE OPERATOR [facility] CARD CAD [id number] 11/25/2016 13:12:00 11/25/2016 23:59:59 CLS Outpatient BAIMA, BARRY L PLATE FURNACE OPERATOR [facility] RAD CAD [id number] 10/21/2016 00:45:00 10/21/2016 15:00:00 DIS Inpatient CINDY THOMPSON MD [facility] 4TH UTI,ENCEPHALOPATHY, HYPONATREMIA [id number] 10/07/2016 12:00:00 10/07/2016 23:59:59 CLS Preadmit SANDRO GLASER FACTRAY Hdz FACP CCDS [facility] CARD R26.89 CLAUDICATION [id number] 09/25/2016 23:10:00 09/26/2016 11:15:00 DIS Inpatient CINDY THOMPSON MD [facility] 4TH SCHIZOPHRENIA,UTI, ALTERED MENTAL STATUS [id number] 11/26/2015 06:48:00 11/26/2015 08:11:00 DIS Emergency OTILIA ANDREW K [facility] ER NAUSEA [id number] 06/20/2015 08:47:00 06/20/2015 23:59:59 CLS Outpatient BARRY REYES [facility] RAD CAD,HTN,HLP [id number] 06/20/2015 10:53:00 06/20/2015 13:55:00 DIS Emergency SORAYA MARTINS [facility] ER HIGH BLOOD SUGAR [id number] 06/30/2014 16:07:00 06/30/2014 23:59:59 CLS Outpatient SANDRO GLASER FACC, TRAY TURCIOS CCDS [facility] LAB CAD,ISCHEMIC HEART DISEASE,CAROTID ARTERIAL DISEAS [id number] 09/05/2013 12:06:00 09/06/2013 12:38:00 DIS Inpatient CARLITA WAITE MD [facility] ICU SYNCOPE HYPERKALEMIA RENAL INSUFFICIENCY [id number] 09/24/2012 11:31:00 09/24/2012 14:53:00 DIS Emergency MAKENNA ODEN MD [facility] ER FELL L BACK PAIN [id number] 09/18/2012 11:29:00 09/18/2012 23:59:59 CLS Outpatient [id number] 08/16/2012 17:15:00 08/17/2012 14:53:00 DIS Inpatient CARLITA WAITE MD [facility] CSD SYNCOPYE,CP, HYPOMAGNESEMIA [id number] 07/20/2012 18:04:00 07/20/2012 23:59:59 CLS Outpatient [id number] 05/14/2014 18:01:00 Document Registration [id number] 01/14/2012 19:48:00 Document Registration [id number] 05/06/2011 03:25:00 Document Registration [id number] 04/17/2011 11:00:00 Document Registration [id number] 01/29/2011 09:53:00 Document Registration [id number] 01/28/2011 14:09:00 Document Registration [id number] 01/21/2011 15:15:00 Document Registration [id number] 01/16/2011 10:30:00 Document Registration [id number] 12/02/2010 13:54:00 Document Registration [id number] 09/18/2010 09:32:00 Document Registration [id number] 06/05/2010 19:49:00 Document Registration [id number] 05/31/2010 11:02:00 Document Registration [id number] 05/23/2010 09:27:00 Document Registration [id number] 05/20/2010 10:00:00 Document Registration [id number] 05/18/2010 09:49:00 Document Registration [id number] 05/16/2010 14:29:00 Document Registration [id number] 05/07/2010 15:08:00 Document Registration [id number] 04/25/2010 07:50:00 Document Registration [id number] 03/11/2010 16:05:00 Document Registration [id number] 02/07/2010 10:51:00 Document Registration [id number] 01/01/2017 08:40:00 Document Registration [id number] 03/21/2016 13:06:00 Document Registration [id number] 10/20/2016 09:36:00 11/11/2016 15:45:00 DIS Outpatient SHAN JUDAH [id number] 09/26/2016 10:48:00 10/13/2016 13:10:00 DIS Inpatient SHAN JUDAH [id number] 05/18/2016 18:22:00 05/18/2016 22:45:00 [id number] 05/18/2016 19:39:55 Document Registration [id number] 11/26/2015 12:47:00 Document Registration [id number] 03/23/2016 07:05:00 Document Registration
[2017-06-08] MEDS ORDERED: ONDANSETRON 4 MG/2 ML (SDV) Z0FRAN IVP ONE (18:45)
[2017-06-08] MEDS ORDERED: NS IV 1000 ML 1,500 ML IV PRN (18:45)
--- NOTE | 2017-06-08 18:51 | ED Syncope ---
General Chief Complaint: Dizziness/Syncope Stated Complaint: DIZZINESS;DEHYDRATION Nursing Triage Note: Pt c/o "dizzy spells" for last week. Pt reports she has had 3 syncopal episodes when standing over last 2 days. Source of Information: Patient Exam Limitations: No Limitations History of Present Illness Date Seen by Provider: Jun 08, 2017 Time Seen by Provider: 18:30 Initial Comments Patient presents to the ER by private conveyance with a chief complaint that for the last week she has felt low with a cold upper respiratory symptoms of runny nose, nonproductive cough and malaise. She's had no fevers chills and however she has not been eating very well either. She says she's continue to take all of her medications as prescribed. She has a pacemaker as well as a history of stents in her heart she is on Plavix and aspirin. She is also on a beta tejal and lisinopril but no water pills. She says for the past couple days now she has gotten very dizzy which means she Brown else or complete he passes out when getting up out of bed for a long time or getting up from sitting down for a long time and has fallen back into the bed. She has not fallen on the floor struck her head or had any prolonged unconsciousness more than a few seconds she thinks. She is not having any pain anywhere. She did however when she got dizzy and passed out and vomited one time today but she is mostly mucus that she's been passing from her nose. She has no history of lung disease. Her stent was placed by Dr. Cook. She also says when she was a child she had a valve replaced but she is not on lifelong anticoagulation therapy. She has a pacemaker. Allergies and Home Medications Allergies Coded Allergies: Bleach (Sodium Hypochlorite) (Verified Allergy, Unknown, 09/25/16) corn (Unverified Allergy, Unknown, 02/07/10) perfume (Verified Allergy, Unknown, 09/25/16) Home Medications Acetaminophen 500 Mg Tablet, 1,000 MG PO Q6H PRN for PAIN-MILD, (Reported) TAKES 2 (500 MG) TABLETS Aspirin 81 Mg Tablet.dr, 0 MG PO DAILY Prescribed by: BARRY REYES on 02/25/17851 Atorvastatin Calcium 40 Mg Tablet, 40 MG PO HS Prescribed by: BARRY REYES on 02/25/17851 Carvedilol 12.5 Mg Tablet, 12.5 MG PO BID, (Reported) Clopidogrel Bisulfate 75 Mg Tablet, 75 MG PO DAILY Prescribed by: BARRY REYES on 02/25/17851 Digoxin 125 Mcg Tablet, 125 MCG PO DAILY, (Reported) Diphenhydramine HCl 25 Mg Capsule, 25 MG PO HS PRN for CONGESTION, (Reported) Enalapril Maleate 20 Mg Tablet, 20 MG PO DAILY, (Reported) Fish Oil/Dha/Epa 1 Each Capsule, 1,200 MG PO DAILY, (Reported) Insulin Aspart 100 Unit/1 Ml Susp, 10 UNITS SC AC, (Reported) Insulin Determir 1,000 Units/10 Ml Soln, 10 UNITS SC BID, (Reported) Loperamide HCl 2 Mg Tablet, PO UD PRN for DIARRHEA, (Reported) Lurasidone HCl 80 Mg Tablet, 80 MG PO HS, (Reported) Multivitamin 1 Each Tablet, 1 TAB PO DAILY, (Reported) Phenazopyridine HCl 95 Mg Tablet, 95 MG PO BID, (Reported) Patient Home Medication List Home Medication List Reviewed: Yes Constitutional: No chills, No diaphoresis, dizziness (near syncope and syncope) , No fever, malaise, weakness EENTM: nose congestion, No ear discharge, No ear pain, No blurred vision, No double vision, No dental problems, No hoarseness, No epistaxis, No nose pain, No throat pain, No throat swelling Respiratory: cough, No orthopnea, No phlegm, No short of breath, No wheezing Cardiovascular: No chest pain, No edema, Hx of Intervention, No palpitations, syncope, vascular heart diseas Gastrointestinal: No abdominal pain, No constipation, No diarrhea, nausea, vomiting (times one without blood) Genitourinary: No discharge, No dysuria Musculoskeletal: No back pain, No joint pain Skin: No pruritus, No rash Past Jxglrcc-Ipnkej-Aznjqu Hx Patient Social History Alcohol Use: Denies Use Recreational Drug Use: No Smoking Status: Never a Smoker 2nd Hand Smoke Exposure: No Recent Foreign Travel: No Contact w/Someone Who Travel: No Recent Infectious Disease Expo: No Recent Hopitalizations: No Physical Abuse: No Sexual Abuse: No Mistreated: No Fear: No Immunizations Up To Date Tetanus Booster (TDap): Unknown PED Vaccines UTD: No Date of Pneumonia Vaccine: Apr 09, 2010 Seasonal Allergies Seasonal Allergies: No Surgeries History of Surgeries: Yes (right carotid endarterectomy, colonoscopy, valve replacement) Surgeries: CABG, Hysterectomy, Pacemaker Respiratory History of Respiratory Disorde: No Cardiovascular History of Cardiac Disorders: Yes (has pacemaker/defibrillator, DOUBLE BYPASS) Cardiac Disorders: Coronary Artery Disease, High Cholesterol, Irregular Heartbeat Neurological History of Neurological Disord: Yes Neurological Disorders: Stroke Reproductive System Hx Reproductive Disorders: No 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 History: Hysterectomy Genitourinary History of Genitourinary Disor: Yes Genitourinary Disorders: UTI-Chronic Gastrointestinal History of Gastrointestinal Di: No Gastrointestinal Disorders: Gall Bladder Disease Musculoskeletal History of Musculoskeletal Dis: Yes Musculoskeletal Disorders: Arthritis Endocrine History of Endocrine Disorders: Yes Endocrine Disorders: Diabetes, Insulin dep HEENT History of HEENT Disorders: Yes HEENT Disorders: Cataract, Macular Degeneration Loss of Vision: Denies Hearing Impairment: Denies Cancer History of Cancer: No Psychosocial History of Psychiatric Problem: Yes Behavioral Health Disorders: Anxiety, Schizophrenia, Depression Suicide Risk Score: 0 Integumentary History of Skin or Integumenta: No Blood Transfusions History of Blood Disorders: No Adverse Reaction to a Blood Tr: No Family Medical History Significant Family History: No Pertinent Family Hx Family Medial History: Family history: Diabetes mellitus 19 MOTHER Family history: Hypertension 19 FATHER 19 MOTHER Psychotic disorder G8 BROTHER (MENTAL HEALTH PROBLEMS) Physical Exam Vital Signs Vital Signs - First Documented 06/08/17 16:56 Temp 96.2 Pulse 70 Resp 18 B/P (MAP) 186/66 (106) Pulse Ox 100 O2 Delivery Room Air Capillary Refill : Less Than 3 Seconds General Appearance: WD/WN, Mild Distress HEENT: PERRL/EOMI, TMs Normal, Normal ENT Inspection, Pharynx Normal (oral mucosa is quite dry) Neck: Full Range of Motion, Non Tender, Supple Cardiovascular: Regular Rate, Rhythm, No Edema, Systolic Murmur Respiratory: Chest Non Tender, Lungs Clear, Normal Breath Sounds, No Accessory Muscle Use, No Respiratory Distress Gastrointestinal: Normal Bowel Sounds, Non Tender, Soft Back: Normal Inspection, No CVA Tenderness Extremities: Normal Capillary Refill, Normal Inspection, Non Tender, No Calf Tenderness, No Pedal Edema Neurologic/Psychiatric: Alert, Oriented x3, No Motor/Sensory Deficits, Depressed Affect Cranial Nerves: Normal Hearing, Normal Speech, PERRL Motor/Sensory: No Motor Deficit, No Sensory Deficit Skin: Normal Color, Warm/Dry Progress/Results/Core Measures Results/Orders Lab Results Laboratory Tests Test 06/08/17 18:22 Range/Units White Blood Count 7.7 4.3-11.0 10^3/uL Red Blood Count 4.48 4.35-5.85 10^6/uL Hemoglobin 13.0 11.5-16.0 G/DL Hematocrit 38 35-52 % Mean Corpuscular Volume 84 80-99 FL Mean Corpuscular Hemoglobin 29 25-34 PG Mean Corpuscular Hemoglobin Concent 35 32-36 G/DL Red Cell Distribution Width 13.6 10.0-14.5 % Platelet Count 157 130-400 10^3/uL Mean Platelet Volume 10.1 7.4-10.4 FL Neutrophils (%) (Auto) 80 H 42-75 % Lymphocytes (%) (Auto) 15 12-44 % Monocytes (%) (Auto) 4 0-12 % Eosinophils (%) (Auto) 1 0-10 % Basophils (%) (Auto) 0 0-10 % Neutrophils # (Auto) 6.2 1.8-7.8 X 10^3 Lymphocytes # (Auto) 1.1 1.0-4.0 X 10^3 Monocytes # (Auto) 0.3 0.0-1.0 X 10^3 Eosinophils # (Auto) 0.1 0.0-0.3 10^3/uL Basophils # (Auto) 0.0 0.0-0.1 10^3/uL Sodium Level 131 L 135-145 MMOL/L Potassium Level 4.9 3.6-5.0 MMOL/L Chloride Level 103 98-107 MMOL/L Carbon Dioxide Level 22 21-32 MMOL/L Anion Gap 6 5-14 MMOL/L Blood Urea Nitrogen 23 H 7-18 MG/DL Creatinine 1.24 0.60-1.30 MG/DL Estimat Glomerular Filtration Rate 43 BUN/Creatinine Ratio 19 Glucose Level 252 H 70-105 MG/DL Calcium Level 9.2 8.5-10.1 MG/DL Magnesium Level 1.6 L 1.8-2.4 MG/DL Total Bilirubin 0.5 0.1-1.0 MG/DL Aspartate Amino Transf (AST/SGOT) 16 5-34 U/L Alanine Aminotransferase (ALT/SGPT) 19 0-55 U/L Alkaline Phosphatase 104 40-136 U/L Troponin I < 0.30 <0.30 NG/ML C-Reactive Protein High Sensitivity 0.34 0.00-0.50 MG/DL Total Protein 7.5 6.4-8.2 GM/DL Albumin 4.2 3.2-4.5 GM/DL Digoxin Level 0.60 L 0.80-2.00 NG/ML My Orders Orders - STEVEN VILLELA Cbc With Automated Diff (06/08/17 18:42) Comprehensive Metabolic Panel (06/08/17 18:42) Hs C Reactive Protein (06/08/17 18:42) Drug Screen Stat (Urine) (06/08/17 18:42) Magnesium (06/08/17 18:42) Troponin I (06/08/17 18:42) Ua Culture If Indicated (06/08/17 18:42) Chest Pa/Lat (2 View) (06/08/17 18:42) Saline Lock/Iv-Start (06/08/17 18:42) Ns Iv 1000 Ml (Sodium Chloride 0.9%) (06/08/17 18:45) Ekg Tracing (06/08/17 18:42) Continuous Ekg Monitoring (06/08/17 18:42) Orthostatic Vital Signs (Adult (06/08/17 18:42) Digoxin (06/08/17 18:42) Ondansetron Injection (Zofran Injectio (06/08/17 18:45) Medications Given in ED Current Medications Medications Dose Ordered Sig/Roxana Route Start Time Stop Time Status Last Admin Dose Admin Ondansetron HCl 4 mg ONCE ONCE IVP 06/08/17 18:45 06/08/17 18:46 DC 06/08/17 19:07 4 MG Sodium Chloride 1,500 ml @ 1,500 mls/hr PRN PRN IV 06/08/17 18:45 06/08/17 19:08 1,500 MLS/HR Vital Signs/I&O Vital Sign - Last 12Hours 06/08/17 06/08/17 16:56 19:04 Temp 96.2 Pulse 70 69 69 71 Resp 18 B/P (MAP) 186/66 (106) 191/89 (123) 200/104 (136) 191/107 (135) Pulse Ox 100 O2 Delivery Room Air Blood Pressure Mean: 106 Progress Note : Time: 18:50 Progress Note Looks like she has a viral URI and has continued her medications carvedilol, lisinopril and not been drinking very well and probably gotten herself dehydrated. We'll give her some fluids check a set of orthostatic vital signs and get an EKG. She has a history of pacemaker as well as beta blockers on board which could also contribute to her autonomic insufficiency. After we give her some fluids will see if this doesn't improve her out like. Right out of her blood pressure is not low. She has rather aseptic vital signs will get a chest x -ray, CRP and look at the white blood cell count see if this indicates there might be pneumonia. Lung sounds are not adventitious. Cardiac catheterization March 2017 Dr. Cook. 8090% mid vessel stenosis of the obtuse marginal branch, distal to the insertion of an aortocoronary graft. This was successfully intervened following deployment of stent there is 0% residual stenosis. Last known echocardiogram from June [address] Jo Normal global left ventricular systolic function with an EF of 55-60%. Mild mitral and tricuspid regurgitation. Pulmonary artery systolic pressure is estimated to be 30-35 mmHg. No evidence of any significant valvular stenosis on the study. 1912: Or stat vital signs while hypertensive don't demonstrate any significant drop in the systolic or diastolic pressure. Heart rate stayed stable between 69 and 71. She did not express any syncopal or presyncopal symptoms upon performance. 2005: Still waiting on the patient is in urine. Labs and clinical exam do support she is dehydrated. This is likely due to her recent URI. ECG Initial ECG Impression Date: Jun 08, 2017 Initial ECG Impression Time: 18:41 Initial ECG Rate: 70 Initial ECG Intervals: Normal (180) Initial ECG Impression: Nonspecific Changes Initial ECG Comparisson: Unchanged Comment Atrial paced without any ST segment elevation or depression. Diagnostic Imaging Diagonstic Imaging: Xray Plain Films/CT/US/NM/MRI: chest (2v) Comments [facility] [place], [place] NAME: [facility] REC#: [id number] PT STATUS: REG ER : 1950 PHYSICIAN: STEVEN VILLELA MD ADMIT DATE: 04/02/18/ER Draft Date of Exam:06/08/17 CHEST PA/LAT (2 VIEW) EXAM: CHEST PA/LAT (2 VIEW). INDICATION: Congestion. Cough. Dizziness. Hypertension. COMPARISON: Chest radiograph 10/21/2016. FINDINGS: Normal heart size and pulmonary vascularity. Sternotomy with mediastinal markers. AICD. Cholecystectomy clips. No focal pulmonary opacity, pleural effusion, or pneumothorax. No acute osseous findings. No significant change. IMPRESSION: No acute cardiopulmonary findings. Dictated on workstation # [id number] Dict: 06/08/171929 Trans: 06/08/171933 [id number] Interpreted by: BOUBACAR LOZA MD Electronically signed by: Reviewed: Reviewed by Me Consults Consults : Consulting Physician: TRAY JO MD FACP FAC CCDS Consults Notes Discussed case and he recommends adding a little amlodipine given her blood pressure continue her home meds and run some fluids in on her overnight and he will be willing to consult. Departure Communication (Admissions) Time/Spoke to Admitting Phy: 20:21 Communication Discussed the case with Dr. King and she agrees plan and will see the patient. IV fluids maintenance 1.5, T echo, PT OT and amlodipine 1. Time/Spoke to Consulting Phy: 20:18 Communication/Consulting Discussed case with Dr. Cook. See consult note. Impression Impression: Primary Impression: Syncope Qualified Codes: R55 - Syncope and collapse Additional Impressions: URI with cough and congestion Dehydration Hypertension Qualified Codes: I10 - Essential (primary) hypertension Disposition: ADMITTED INPATIENT Condition: Stable Admissions Decision to Admit Reason: Admit from ER (General) Decision to Admit/Date: Jun 08, 2017 Time/Decision to Admit Time: 20:21 Departure-Patient Inst. Referrals: BOONE KING DO (PCP) Primary Care Physician WOOD CALDERON (Family) Primary Care Physician STEVEN VILLELA Jun 08, 2017 18:51
[2017-06-08 18:54] LABS: BASOPHILS % (AUTO) 0 % (0-10); EOSINOPHILS # (AUTO) 0.1 10^3/uL (0.0-0.3); EOSINOPHILS % (AUTO) 1 % (0-10); HEMATOCRIT 38 % (35-52); LYMPHOCYTES # (AUTO) 1.1 X 10^3 (1.0-4.0); LYMPHOCYTES % (AUTO) 15 % (12-44); MEAN CORPUSCULAR HEMOGLOBIN 29 PG (25-34); MEAN CORPUSCULAR HGB CONC 35 G/DL (32-36); MEAN CORPUSCULAR VOLUME 84 FL (80-99); MEAN PLATELET VOLUME 10.1 FL (7.4-10.4); MONOCYTES # (AUTO) 0.3 X 10^3 (0.0-1.0); MONOCYTES % (AUTO) 4 % (0-12); NEUTROPHILS # (AUTO) 6.2 X 10^3 (1.8-7.8); NEUTROPHILS % (AUTO) 80 % (42-75); PLATELET COUNT 157 10^3/uL (130-400); RED BLOOD COUNT 4.48 10^6/uL (4.35-5.85); RED CELL DISTRIBUTION WIDTH 13.6 % (10.0-14.5); WHITE BLOOD COUNT 7.7 10^3/uL (4.3-11.0)
[2017-06-08 19:04] VITALS: BP_SYST 191; BP_SYST 200; BP_DIAS 104; BP_DIAS 107; BP_DIAS 89
[2017-06-08 19:08] LABS: ALANINE AMINOTRANSFERASE 19 U/L (0-55); ALBUMIN 4.2 GM/DL (3.2-4.5); ALKALINE PHOSPHATASE 104 U/L (40-136); BILIRUBIN,TOTAL 0.5 MG/DL (0.1-1.0); BUN/CREATININE RATIO 19; CALCIUM 9.2 MG/DL (8.5-10.1); CARBON DIOXIDE 22 MMOL/L (21-32); CHLORIDE 103 MMOL/L (98-107); CREATININE SERUM 1.24 MG/DL (0.60-1.30); GFR ESTIMATED 43; GLUCOSE 252 MG/DL (70-105); MAGNESIUM 1.6 MG/DL (1.8-2.4); POTASSIUM 4.9 MMOL/L (3.6-5.0); SODIUM 131 MMOL/L (135-145); TOTAL PROTEIN 7.5 GM/DL (6.4-8.2)
--- NOTE | 2017-06-08 19:34 | Diagnostic Imaging Report ---
EXAM: CHEST PA/LAT (2 VIEW). INDICATION: Congestion. Cough. Dizziness. Hypertension. COMPARISON: Chest radiograph 10/21/2016. FINDINGS: Normal heart size and pulmonary vascularity. Sternotomy with mediastinal markers. AICD. Cholecystectomy clips. No focal pulmonary opacity, pleural effusion, or pneumothorax. No acute osseous findings. No significant change. IMPRESSION: No acute cardiopulmonary findings. Dictated by: Dictated on workstation # [id number]
[2017-06-08 20:36] LABS: BILIRUBIN,URINE NEGATIVE (NEGATIVE); CLARITY,URINE CLEAR; COLOR,URINE YELLOW; GLUCOSE, URINE (UA) 3+ (NEGATIVE); KETONES,URINE NEGATIVE (NEGATIVE); LEUKOCYTE ESTERASE ,URINE 1+ (NEGATIVE); NITRITE,URINE NEGATIVE (NEGATIVE); PH,URINE 5 (5-9); PROTEIN,URINE NEGATIVE (NEGATIVE); UROBILINOGEN,URINE NORMAL (NORMAL)
[2017-06-08 20:43] LABS: BACTERIA,URINE NEGATIVE /HPF; HYALINE CASTS, URINE RARE /LPF; SQUAMOUS EPITHELIAL CELL,UR 0-2 /HPF
[2017-06-08 20:50] LABS: AMPHETAMINE SCREEN, URINE NEGATIVE (NEGATIVE); BARBITURATE SCREEN URINE NEGATIVE (NEGATIVE); BENZODIAZEPINES SCREEN URINE NEGATIVE (NEGATIVE); CANNABINOID SCREEN, URINE NEGATIVE (NEGATIVE); COCAINE SCREEN URINE NEGATIVE (NEGATIVE); METHADONE STAT NEGATIVE (NEGATIVE); METHAMPHETAMINE SCREEN URINE S NEGATIVE (NEGATIVE); OPIATE SCREEN URINE NEGATIVE (NEGATIVE); OXYCODONE STAT NEGATIVE (NEGATIVE); PROPOXYPHENE STAT NEGATIVE (NEGATIVE); TRICYCLIC ANTIDEPRESSANTS SCRE NEGATIVE (NEGATIVE)
--- OUTSIDE RECORDS SUMMARY | 2017-06-08 21:54 | XMS REPORT | Continuity of Care Document ---
Author Author [facility] Address Unknown Phone Unavailable Allergies Active Description [...] OTHER Yes PREDNISONE UNKNOWN UNKNOWN Yes corn [id number] Drug Allergy Unknown N/A 02/07/2010 Yes Tejeda Food Allergy N/A N/A 07/30/2011 Yes Pork Food Allergy N/A N/A 07/30/2011 Yes Termo Food Allergy N/A N/A 07/30/2011 Yes yeast Food Allergy N/A N/A 07/30/2011 Yes Tejeda Food Allergy 07/30/2011 Yes Pork Food Allergy 07/30/2011 Yes Termo Food Allergy 07/30/2011 Yes yeast Food Allergy 07/30/2011 Yes CORN Food Allergy N/A N/A 06/23/2012 Yes CORN Food Allergy 06/23/2012 Yes Bleach (Sodium Hypochlorite) [id number] Drug Allergy Unknown N/A 2016 Yes perfume [id number] Drug Allergy Unknown N/A 09/25/2016 Medications Medication [...] K 796.2 Blood Pressure Isolated Elevated BOONE IRAHETA DO V58.69 taking high-risk medication BOONE IRAHETA DO V65.49 Self-Care Education - Need To Report Postmenopausal Bleeding BOONE IRAHETA DO V76.10 visit for: screening exam malignant neoplasm breast MADL PLUSH WEAVER, MIGUEL L 272.4 HYPERLIPIDEMIA MADL PLUSH WEAVER, MIGUEL L 296.40 BIPOLAR I DISORDER, MOST RECENT EPISODE, MANIC MADL PLUSH WEAVER, MIGUEL L 296.80 BIPOLAR DISORDER NOS MADL PLUSH WEAVER, MIGUEL L 296.90 EPISODIC MOOD DISORDERS MADL PLUSH WEAVER, MIGUEL L 300.00 anxiety MADL PLUSH WEAVER, MIGUEL L 300.4 DYSTHYMIC DISORDER (DEPRESSIVE NEUROSIS) MADL PLUSH WEAVER, MIGUEL L 307.47 NIGHTMARE DISORDER MADL PLUSH WEAVER, MIGUEL L 425.4 CARDIOMYOPATHY MADL PLUSH WEAVER, MIGUEL L 427.9 RHYTHM DISORDER MADL PLUSH WEAVER, MIGUEL L 455.6 HEMORRHOIDS MADL PLUSH WEAVER, MIGUEL L 578.1 red blood in bowel movement (hematochezia) MADJaylen PLUSH WEAVER, MIGUEL L 625.9 pelvic pain MADL PLUSH WEAVER, MIGUEL L 787.91 diarrhea MADL PLUSH WEAVER, MIGUEL L 796.2 Blood Pressure Isolated Elevated MADL PLUSH WEAVER, MIGUEL L V58.69 taking high-risk medication MADL PLUSH WEAVER, MIGUEL L V65.49 Self-Care Education - Need To Report Postmenopausal Bleeding MADJaylen PLUSH WEAVER, MIGUEL L V76.10 visit for: screening exam [...] CARLITA WAITE MD 427.9 RHYTHM DISORDER RAVINDRA GLSAER, CARLITA 455.6 HEMORRHOIDS CARLITA WAITE MD 578.1 red blood in bowel movement (hematochezia) CARLITA WAITE MD 625.9 pelvic pain CARLITA WAITE MD 787.91 diarrhea CARLITA WAITE MD 796.2 Blood Pressure Isolated Elevated CARLITA WAITE MD V58.69 taking high-risk medication CARLITA WAITE MD V65.49 Self-Care Education - Need To Report Postmenopausal Bleeding CARLITA WAITE MD V76.10 visit for: screening exam malignant neoplasm breast ESTRADA PLUSH WEAVER, DAYANA R 272.4 HYPERLIPIDEMIA SEAN MORRIS, DAYANA R [...] SEAN MORRIS, DAYANA R 455.6 HEMORRHOIDS SEAN MORRIS, DAYANA R 578.1 red blood in bowel [...] KATHY R 296.90 EPISODIC MOOD DISORDERS ESTEE HAIRSTNON, KATHY R 300.00 anxiety ESTEE HAIRSTONN, KATHY R 300.4 DYSTHYMIC DISORDER (DEPRESSIVE NEUROSIS) ESTEE MORRIS KATHY R 307.47 NIGHTMARE DISORDER SETEE HAIRSTONN, KATHY R 425.4 CARDIOMYOPATHY ESTEE PLUSH WEAVER, KATHY R 427.9 RHYTHM DISORDER ESTEE PLUSH WEAVER, KATHY R 455.6 HEMORRHOIDS ESTEE PLUSH WEAVER, KATHY R 578.1 red blood in bowel movement (hematochezia) ESTEE HAIRSTONN, KATHY R 625.9 pelvic pain ESTEE HAIRSTONN, KATHY R 787.91 diarrhea ESTEE PLUSH WEAVER, KATHY R 796.2 Blood Pressure Isolated Elevated [...] DO, BOONE K 553.3 HIATAL HERNIA 09/27/2007 RIAHETA DO, BOONE K 616.10 VULVITIS 09/27/2007 IRAHETA [...] DO, BOONE K 616.10 VULVITIS 09/27/2007 YUMIKO PLUSH WEAVER WOOD S 250.00 DIABETES MELLITUS POORLY CONTROLLED 09/27/2007 YUMIKO PLUSH WEAVER, WOOD S 401.1 ESSENTIAL HYPERTENSION BENIGN 09/27/2007 YUMIKO PLUSH WEAVER, WOOD S 553.3 HIATAL HERNIA 09/27/2007 WOOD CALDERON APRN S 616.10 VULVITIS 09/27/2007 IRAHETA DO, BOONE K 250.00 DIABETES MELLITUS POORLY CONTROLLED 09/27/2007 IRAHETA DO, BOONE K 401.1 ESSENTIAL HYPERTENSION BENIGN 09/27/2007 IRAHETA DO, BOONE K 553.3 HIATAL HERNIA 09/27/2007 IRAHETA DO, BOONE K 616.10 VULVITIS 09/27/2007 MADL PLUSH WEAVER, MIGUEL L 250.00 DIABETES MELLITUS POORLY CONTROLLED 09/27/2007 MADL PLUSH WEAVER, MIGUEL L 401.1 ESSENTIAL HYPERTENSION BENIGN 09/27/2007 MADL PLUSH WEAVER, MIGUEL L 553.3 HIATAL HERNIA 09/27/2007 MADL PLUSH WEAVER, MIGUEL L 616.10 VULVITIS 09/27/2007 CARLITA WAITE MD 250.00 DIABETES MELLITUS POORLY CONTROLLED 09/27/2007 CARLITA WAITE MD 401.1 ESSENTIAL HYPERTENSION BENIGN 09/27/2007 CARLITA WAITE MD 553.3 HIATAL HERNIA 09/27/2007 CARLITA WAITE MD 616.10 VULVITIS 09/27/2007 SEAN MORRIS DAYANA R 250.00 DIABETES MELLITUS POORLY CONTROLLED 09/27/2007 SEAN MORRIS DAYANA R 401.1 ESSENTIAL HYPERTENSION BENIGN 09/27/2007 SEAN MORRIS DAYANA R 553.3 HIATAL HERNIA 09/27/2007 SENA MORRIS, DAYANA R 616.10 VULVITIS 09/27/2007 ESTEE [...] L 564.1 IRRITABLE BOWEL SYNDROME 05/31/2008 MADL PLUSH WEAVER, MIGUEL L 786.2 cough 05/31/2008 CARLITA WAITE [...] DO BOONE K 079.99 VIRAL SYNDROME 07/06/2008 RIAHETA DO, BOONE K 079.99 VIRAL SYNDROME 07/06/2008 [...] 729.5 foot pain (soft tissue) 06/09/2009 YUMIKO PLUSH WEAVER WOOD S 477.9 ALLERGIC RHINITIS 06/09/2009 YUMIKO PLUSH WEAVER, WOOD S 729.5 foot pain (soft tissue) [...] 729.5 foot pain (soft tissue) 06/09/2009 YUMIKO PLUSH WEAVER, WOOD S 477.9 ALLERGIC RHINITIS 06/09/2009 YUMIKO PLUSH WEAVER, WOOD S 729.5 foot pain (soft tissue) 06/09/2009 IRAHETA DO BOONE K 477.9 ALLERGIC RHINITIS 06/09/2009 IRAHETA DO, BOONE K 729.5 foot pain (soft tissue) 06/09/2009 MADL PLUSH WEAVER, MIGUEL L 477.9 ALLERGIC RHINITIS 06/09/2009 MADL PLUSH WEAVER, MIGUEL L 729.5 foot pain (soft tissue) [...] (CURRENT) USE OF OTHER MEDICATIONS 07/09/2009 BOONE IRHAETA DO K V58.69 LONG-TERM (CURRENT) USE OF [...] DO K 465.9 UPPER RESPIRATORY INFECTION 09/08/2009 MYRTLE DOMARBINA K 078.19 WARTS FOOT RIGHT 09/08/2009 [...] K 465.9 UPPER RESPIRATORY INFECTION 09/08/2009 MADL PLUSH WEAVER, MIGUEL L 078.19 WARTS FOOT RIGHT 09/08/2009 MADJaylen PLUSH WEAVER, MIGUEL L 465.9 UPPER RESPIRATORY INFECTION 09/08/2009 CARLITA WAITE MD 078.19 WARTS FOOT RIGHT 09/08/2009 CARLITA WAITE MD 465.9 UPPER RESPIRATORY INFECTION 09/08/2009 SEAN PLUSH WEAVER, DAYANA R 078.19 WARTS FOOT RIGHT 09/08/2009 SEAN HAIRSTONN, DAYANA R 465.9 UPPER RESPIRATORY INFECTION 09/08/2009 ESTEE PLUSH WEAVER, KATHY R 078.19 WARTS FOOT RIGHT 09/08/2009 ESTEE PLUSH WEAVER, KATHY R 465.9 UPPER RESPIRATORY INFECTION 10/17/2009 [...] DO, BOONE K 535.50 GASTRITIS 03/28/2010 MADL PLUSH WEAVER, MIGUEL L 428.0 CONGESTIVE HEART FAILURE 03/28/2010 LOUANN PLUSH WEAVER, MIGUEL L 535.50 GASTRITIS 03/28/2010 RAVINDRA GLASER, CARLITA 428.0 CONGESTIVE HEART FAILURE 03/28/2010 RAVINDRA GLASER, CARLITA 535.50 GASTRITIS 03/28/2010 SEAN PLUSH WEAVER, DAYANA R 428.0 CONGESTIVE HEART FAILURE 03/28/2010 SEAN PLUSH WEAVER, DAYANA R 535.50 GASTRITIS 03/28/2010 ESTEE HAIRSTONN, [...] CHIQUITA ROGERS DO 780.79 FATIGUE 07/25/2010 YUMIKO PLUSH WEAVER, WOOD S 729.1 muscle aches, generalized (myalgias) [...] DO, BOONE K 780.79 FATIGUE 07/25/2010 YUMIKO PLUSH WEAVER, WOOD S 729.1 muscle aches, generalized (myalgias) 07/25/2010 YUMIKO PLUSH WEAVER, WOOD S 780.79 FATIGUE 07/25/2010 IRAHETA DO, BOONE K 729.1 muscle aches, generalized (myalgias) 07/25/2010 IRAHETA DO, BOONE K 780.79 FATIGUE 07/25/2010 MADL PLUSH WEAVER, MIGUEL L 729.1 muscle aches, generalized (myalgias) 07/25/2010 MADL PLUSH WEAVER, MIGUEL L 780.79 FATIGUE 07/25/2010 CARLITA WAITE [...] DOA K 593.9 RENAL INSUFFICIENCY 10/14/2010 MADL PLUSH WEAVER, MIGUEL L 276.7 HYPERKALEMIA 10/14/2010 LOUANN PLUSH WEAVER, MIGUEL L 593.9 RENAL INSUFFICIENCY 10/14/2010 CARLITA WAITE MD 276.7 HYPERKALEMIA 10/14/2010 CARLITA WAITE MD 593.9 RENAL INSUFFICIENCY 10/14/2010 ESTRADA PLUSH WEAVER, DAYANA R 276.7 HYPERKALEMIA 10/14/2010 ESTRADA PLUSH WEAVER, DAYANA R 593.9 RENAL INSUFFICIENCY 10/14/2010 ESTEE PLUSH WEAVER, KATHY R 276.7 HYPERKALEMIA 10/14/2010 ESTEE PLUSH WEAVER, KATHY R 593.9 RENAL INSUFFICIENCY 12/02/2010 Ot [...] UNSPECIFIED 04/16/2011 Ot 414.01 CORONARY ATHEROSCLEROSIS OF [place] CORON 04/16/2011 Ot 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 04/21/2011 CHIQUITA ROGERS DO 307.47 SI DYSSOMNIA NOS 04/21/2011 YUMIKO PLUSH WEAVER, WOOD S 307.47 SI DYSSOMNIA NOS 04/21/2011 [...] CORONARY ATHEROSCLEROSIS OF UNSPECIFIED TYPE OF VESSEL [place] OR GRAFT 07/30/2011 CHIQUITA ROGERS DO V45.81 POSTSURGICAL AORTOCORONARY BYPASS STATUS 07/30/2011 WOOD CALDERON APRN 272.4 DYSLIPIDEMIA 07/30/2011 WOOD CALDERON APRN S 414.00 CORONARY ATHEROSCLEROSIS OF UNSPECIFIED TYPE OF VESSEL [place] OR GRAFT 07/30/2011 WOOD CALDERON APRN V45.81 POSTSURGICAL AORTOCORONARY BYPASS STATUS 07/30/2011 ERNESTO NINO PHD 272.4 DYSLIPIDEMIA 07/30/2011 ERNESTO NINO PHD 414.00 CORONARY ATHEROSCLEROSIS OF UNSPECIFIED TYPE OF VESSEL [place] OR GRAFT 07/30/2011 ERNESTO NINO PHD V45.81 Postsurgical Aortocoronary Bypass Status 07/30/2011 BOONE IRAHETA DO K 272.4 DYSLIPIDEMIA 07/30/2011 MARBIN IRAHETA DOA K 414.00 CORONARY ATHEROSCLEROSIS OF UNSPECIFIED TYPE OF VESSEL [place] OR GRAFT 07/30/2011 MYRTLE SPICER BOONE K V45.81 Postsurgical Aortocoronary Bypass Status 07/30/2011 MYRTLE SPICER BOONE K 272.4 DYSLIPIDEMIA 07/30/2011 MARBIN IRAHETA DOA K 414.00 CORONARY ATHEROSCLEROSIS OF UNSPECIFIED TYPE OF VESSEL [place] OR GRAFT 07/30/2011 MARBIN IRAHETA DOA K V45.81 Postsurgical Aortocoronary Bypass Status 07/30/2011 MARBIN IRAHETA DOA K 272.4 DYSLIPIDEMIA 07/30/2011 MARBIN IRAHETA DOA K 414.00 CORONARY ATHEROSCLEROSIS OF UNSPECIFIED TYPE OF VESSEL [place] OR GRAFT 07/30/2011 MARBIN IRAHETA DOA K V45.81 Postsurgical Aortocoronary Bypass Status 07/30/2011 272.4 DYSLIPIDEMIA 07/30/2011 414.00 CORONARY ATHEROSCLEROSIS OF UNSPECIFIED TYPE OF VESSEL [place] OR GRAFT 07/30/2011 V45.81 Postsurgical Aortocoronary Bypass Status 07/30/2011 272.4 DYSLIPIDEMIA 07/30/2011 414.00 CORONARY ATHEROSCLEROSIS OF UNSPECIFIED TYPE OF VESSEL [place] OR GRAFT 07/30/2011 V45.81 Postsurgical Aortocoronary Bypass Status 07/30/2011 272.4 DYSLIPIDEMIA 07/30/2011 414.00 CORONARY ATHEROSCLEROSIS OF UNSPECIFIED TYPE OF VESSEL [place] OR GRAFT 07/30/2011 V45.81 Postsurgical Aortocoronary Bypass Status 07/30/2011 272.4 DYSLIPIDEMIA 07/30/2011 414.00 CORONARY ATHEROSCLEROSIS OF UNSPECIFIED TYPE OF VESSEL [place] OR GRAFT 07/30/2011 V45.81 Postsurgical Aortocoronary Bypass Status 07/30/2011 MARBIN IRAHETA DOA K 272.4 DYSLIPIDEMIA 07/30/2011 MARBIN IRAHETA DOA K 414.00 CORONARY ATHEROSCLEROSIS OF UNSPECIFIED TYPE OF VESSEL [place] OR GRAFT 07/30/2011 MARBIN IRAHETA DOA K V45.81 Postsurgical Aortocoronary Bypass Status 07/30/2011 CHALO CALDERON APRNA S 414.00 CORONARY ARTERY DISEASE 07/30/2011 WOOD CALDERON APRN S V45.81 Postsurgical Aortocoronary Bypass Status 07/30/2011 BOONE IRAHETA DO K 414.00 CORONARY ARTERY DISEASE 07/30/2011 MARBIN IRAHETA DOA K V45.81 Postsurgical Aortocoronary Bypass Status 07/30/2011 LOUANN PLUSH WEAVER, MIGUEL L 414.00 CORONARY ARTERY DISEASE 07/30/2011 LOUANN PLUSH WEAVER, MIGUEL L V45.81 Postsurgical Aortocoronary Bypass Status [...] Chatman 428.0 Congestive Heart Failure Unspecified 02/18/2012 IARHETA DO, BOONE K 428.0 Congestive Heart Failure [...] S 428.0 Congestive Heart Failure Unspecified 02/18/2012 IRAHETA [...] BLOOD IN STOOL 04/27/2012 787.91 DIARRHEA 04/27/2012 BOONE IRAHETA DO K 455.6 HEMORRHOIDS NOS 04/27/2012 [...] APRN R 461.9 SINUSITIS ACUTE 06/25/2013 ESTEE PLUSH WEAVER, KATHY R 461.9 SINUSITIS ACUTE 08/25/2013 MIGUEL LEW APRN L 724.3 SCIATICA 08/25/2013 CARLITA WAITE MD 724.3 SCIATICA 08/25/2013 SEAN PLUSH WEAVERDAYANA Rodriguez R 724.3 SCIATICA 08/25/2013 ESTEE MORRIS, [...] WAITE MD Ot 414.01 CORONARY ATHEROSCLEROSIS OF [place] CORON 09/06/2013 CARLITA WAITE MD Ot 414.8 [...] KATHY R 462 ACUTE PHARYNGITIS 03/16/2014 ESTEE PLUSH WEAVER, KATHY R 786.2 COUGH 05/14/2014 Ot 250.00 [...] FACP CCDS Ot 272.4 06/20/2015 SANDRO GLASER FACC, ALI FACP CCDS Ot 414.00 06/20/2015 SANDRO GLASER FACC, ALI FACP CCDS Ot 447.9 06/20/2015 SANDRO GLASER FACC, ALI FACP CCDS Ot 585.9 06/20/2015 SORAYA MARTINS Ot E11.65 TYPE 2 DIABETES MELLITUS WITH HYPERGLYCE 06/20/2015 SORAYA MARTINS Ot Z79.4 MODEL MAKING SUPERVISOR (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 06/20/2015 SORAYA MARTINS Ot Z95.0 PRESENCE OF CARDIAC PACEMAKER 06/20/2015 SORAYA MARTINS L Ot Z95.1 PRESENCE OF AORTOCORONARY BYPASS GRAFT 06/20/2015 BAIMA, BARRY L LIBRARY PARAPROFESSIONAL Ot E78.5 06/20/2015 BAIMA, BARRY L LIBRARY PARAPROFESSIONAL Ot I10 06/20/2015 BAIMA, BARRY L LIBRARY PARAPROFESSIONAL Ot I25.10 06/20/2015 BAIMA, BARRY L LIBRARY PARAPROFESSIONAL Ot Z95.0 06/21/2015 BAIMA, BARRY L LIBRARY PARAPROFESSIONAL Ot E78.5 06/21/2015 BAIMA, BARRY L LIBRARY PARAPROFESSIONAL Ot I10 06/21/2015 BAIMA, BARRY L LIBRARY PARAPROFESSIONAL Ot I25.10 06/21/2015 BAIMA, BARRY L LIBRARY PARAPROFESSIONAL Ot Z95.0 06/21/2015 SORAYA MARTINS L Ot E11.65 06/21/2015 SORAYA MARTINS L Ot Z79.4 06/21/2015 SORAYA MARTINS L Ot Z95.0 06/21/2015 SORAYA MARTINS L Ot Z95.1 06/22/2015 BAIMA, BARRY L LIBRARY PARAPROFESSIONAL Ot E78.5 HYPERLIPIDEMIA, UNSPECIFIED 06/22/2015 BAIMA, BARRY L LIBRARY PARAPROFESSIONAL Ot I10 ESSENTIAL (PRIMARY) HYPERTENSION 06/22/2015 BAIMA, BARRY L LIBRARY PARAPROFESSIONAL Ot I25.10 ATHSCL HEART DISEASE OF [place] CORONARY 06/22/2015 BAIMA, BARRY L LIBRARY PARAPROFESSIONAL Ot Z95.0 PRESENCE OF CARDIAC PACEMAKER 06/22/2015 BAIMA, BARRY L LIBRARY PARAPROFESSIONAL Ot E78.5 HYPERLIPIDEMIA, UNSPECIFIED 06/22/2015 BAIMA, BARRY L LIBRARY PARAPROFESSIONAL Ot I10 ESSENTIAL (PRIMARY) HYPERTENSION 06/22/2015 BAIMA, BARRY L LIBRARY PARAPROFESSIONAL Ot I25.10 ATHSCL HEART DISEASE OF [place] CORONARY 06/22/2015 BAIMA, BARRY L LIBRARY PARAPROFESSIONAL Ot Z95.0 PRESENCE OF CARDIAC PACEMAKER 11/26/2015 [...] 12/04/2015 W I25.10 ATHSCL HEART DISEASE OF [place] CORONARY ARTERY W/O ANG PCTRS 12/04/2015 W [...] 05/18/2016 Ho Villanueva 414.01 CORONARY ATHEROSCLEROSIS OF [place] CORONARY ARTERY 05/18/2016 Ho Villanueva 428.9 HEART FAILURE, UNSPECIFIED 05/18/2016 Ho Villanueva E11.9 TYPE 2 DIABETES MELLITUS WITHOUT COMPLICATIONS 05/18/2016 Ho Villanueva E78.5 HYPERLIPIDEMIA, UNSPECIFIED 05/18/2016 Ho Villanueva F20.9 SCHIZOPHRENIA, UNSPECIFIED 05/18/2016 Ho Villanueva F32.9 MAJOR DEPRESSIVE DISORDER, SINGLE EPISODE, UNSPECIFIED 05/18/2016 Ho Villanueva W I10 ESSENTIAL (PRIMARY) HYPERTENSION 05/18/2016 Ho Villanueva W I25.10 ATHSCL HEART DISEASE OF [place] CORONARY ARTERY W/O ANG PCTRS 05/18/2016 Ho Villauneva W I50.9 HEART FAILURE, UNSPECIFIED 09/25/2016 Ot 414.01 CORONARY ATHEROSCLEROSIS OF [place] CORON 09/25/2016 Ot 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 [...] CHRONIC KIDNEY DISEASE, UNSPECIFIED 09/25/2016 BARRY REYES LIBRARY PARAPROFESSIONAL Ot E78.5 HYPERLIPIDEMIA, UNSPECIFIED 09/25/2016 BARRY REYES L LIBRARY PARAPROFESSIONAL Ot I10 ESSENTIAL (PRIMARY) HYPERTENSION 09/25/2016 BARRY REYES L LIBRARY PARAPROFESSIONAL Ot I25.10 ATHSCL HEART DISEASE OF [place] CORONARY 09/25/2016 BARRY REYES LIBRARY PARAPROFESSIONAL Ot Z95.0 PRESENCE OF CARDIAC PACEMAKER 09/25/2016 Ot 414.01 CORONARY ATHEROSCLEROSIS OF [place] CORON 09/25/2016 Ot 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 09/26/2016 Ot 414.01 CORONARY ATHEROSCLEROSIS OF [place] CORON 09/26/2016 Ot 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 [...] CHRONIC KIDNEY DISEASE, UNSPECIFIED 09/26/2016 BARRY REYES LIBRARY PARAPROFESSIONAL Ot E78.5 HYPERLIPIDEMIA, UNSPECIFIED 09/26/2016 BARRY REYES LIBRARY PARAPROFESSIONAL Ot I10 ESSENTIAL (PRIMARY) HYPERTENSION 09/26/2016 BARRY REYES LIBRARY PARAPROFESSIONAL Ot I25.10 ATHSCL HEART DISEASE OF [place] CORONARY 09/26/2016 EVBARRY WHITTINGTON LIBRARY PARAPROFESSIONAL Ot Z95.0 PRESENCE OF CARDIAC PACEMAKER 09/26/2016 CINDY THOMPSON MD Ot E11.9 TYPE 2 DIABETES MELLITUS WITHOUT COMPLIC 09/26/2016 CINDY THOMPSON MD Ot F20.9 SCHIZOPHRENIA, UNSPECIFIED 09/26/2016 CINDY THOMPSON MD Ot Z79.4 LONG-TERM (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 09/26/2016 CINDY THOMPSON MD Ot Z79.82 MODEL MAKING SUPERVISOR (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) USE OF ASPIRIN 09/26/2016 CINDY THOMPSON MD Ot Z79.899 OTHER MODEL MAKING SUPERVISOR (CURRENT) DRUG THERAPY 09/26/2016 CINDY THOMPSON MD Ot Z95.0 PRESENCE OF CARDIAC PACEMAKER 09/26/2016 CINDY THOMPSON MD Ot Z95.1 PRESENCE OF AORTOCORONARY BYPASS GRAFT 09/26/2016 CINDY THOMPSON MD Ot E11.9 TYPE 2 DIABETES MELLITUS WITHOUT COMPLIC 09/26/2016 CINDY THOMPSON MD Ot F20.9 SCHIZOPHRENIA, UNSPECIFIED 09/26/2016 CINDY THOMPSON MD Ot Z79.4 LONG-TERM (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 09/26/2016 CINDY THOMPSON MD Ot Z79.82 MODEL MAKING SUPERVISOR (CURRENT) USE OF ASPIRIN 09/26/2016 CINDY THOMPSON MD Ot Z79.899 OTHER MODEL MAKING SUPERVISOR (CURRENT) DRUG THERAPY 09/26/2016 CINDY THOMPSON MD Ot Z95.0 PRESENCE OF CARDIAC PACEMAKER 09/26/2016 CINDY THOMPSON MD Ot Z95.1 PRESENCE OF AORTOCORONARY BYPASS GRAFT 10/02/2016 Ot 414.01 CORONARY ATHEROSCLEROSIS OF [place] CORON 10/02/2016 Ot 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 10/02/2016 SANDRO GLASER FACWilder, TRAY TURCIOS CCDS Ot 250.00 DIAB [place] WO COMPL, TYPE II OR UNSPEC TY 10/02/2016 SANDRO MD FACC, ALI FACP CCDS Ot 272.4 HYPERLIPIDEMIA NEC/NOS 10/02/2016 SANDRO GLASER [facility], ALI FACP CCDS Ot 414.00 CORON ATHEROSCLER NOS TYPE VESSEL, NATIV 10/02/2016 SANDRO GLASER [facility], ALI FACP CCDS Ot 447.9 ARTERIAL DISEASE NOS 10/02/2016 SANDRO GLASER [facility], ALI FACP CCDS Ot 585.9 CHRONIC KIDNEY DISEASE, UNSPECIFIED 10/02/2016 ERIC BARRY L LIBRARY PARAPROFESSIONAL Ot E78.5 HYPERLIPIDEMIA, UNSPECIFIED 10/02/2016 EVNELSY BARRY L LIBRARY PARAPROFESSIONAL Ot I10 ESSENTIAL (PRIMARY) HYPERTENSION 10/02/2016 EVNELSY BARRY [place] LIBRARY PARAPROFESSIONAL Ot I25.10 ATHSCL HEART DISEASE OF [place] CORONARY 10/02/2016 EVNELSY BARRY [place] LIBRARY PARAPROFESSIONAL Ot Z95.0 PRESENCE OF CARDIAC PACEMAKER 10/13/2016 [...] JUDAH Roldan I25.10 ATHSCL HEART DISEASE OF [place] CORONARY ARTERY W/O ANG PCTRS 10/13/2016 SHAN [...] MD, Ot I25.10 ATHSCL HEART DISEASE OF [place] CORONARY 10/21/2016 CINDY THOMPSON MD, Ot 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 10/21/2016 CINDY THOMPSON MD, Ot N39.0 URINARY TRACT INFECTION, SITE NOT SPECIF 10/21/2016 CINDY THOMPSON MD, Ot R94.31 ABNORMAL ELECTROCARDIOGRAM [ECG] [EKG] 10/21/2016 CINDY THOMPSON MD, Ot Z79.4 MODEL MAKING SUPERVISOR (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 10/21/2016 CINDY THOMPSON MD, Ot Z95.1 PRESENCE OF AORTOCORONARY BYPASS GRAFT 10/21/2016 CINDY THOMPSON MD, Ot Z95.810 PRESENCE OF AUTOMATIC (IMPLANTABLE) CARD 11/11/2016 JUDAH TORREZ 296.34 MAJOR DEPRESSIVE DISORDER, RECURRENT EPISODE, SEVERE DEGREE, SPECIFIED WITH PSYCHOTIC BEHAVIOR 11/11/2016 JUDAH TORREZ F33.3 MAJOR DEPRESSV DISORDER, RECURRENT, SEVERE W PSYCH SYMPTOMS 11/24/2016 BARRY REYES LIBRARY PARAPROFESSIONAL Ot I25.10 ATHSCL HEART DISEASE OF [place] CORONARY 11/25/2016 SANDRO STANLEY, ALI FACP CCDS Ot 250.00 DIAB [place] WO COMPL, TYPE II OR UNSPEC TY 11/25/2016 SANDRO LGASER FACC, ALI FACP CCDS Ot 272.4 HYPERLIPIDEMIA NEC/NOS 11/25/2016 SANDRO GLASER FACC, ALI FACP CCDS Ot 414.00 CORON ATHEROSCLER NOS TYPE VESSEL, NATIV 11/25/2016 SANDRO GLASER FACC, ALI FACP CCDS Ot 447.9 ARTERIAL DISEASE NOS 11/25/2016 SANDRO GLASER FACC, ALI FACP CCDS Ot 585.9 CHRONIC KIDNEY DISEASE, UNSPECIFIED 11/25/2016 BARRY REYES LIBRARY PARAPROFESSIONAL Ot E78.5 HYPERLIPIDEMIA, UNSPECIFIED 11/25/2016 BARRY REYES LIBRARY PARAPROFESSIONAL Ot I10 ESSENTIAL (PRIMARY) HYPERTENSION 11/25/2016 BARRY REYES LIBRARY PARAPROFESSIONAL Ot I25.10 ATHSCL HEART DISEASE OF [place] CORONARY 11/25/2016 DUSTIN REYESHER L LIBRARY PARAPROFESSIONAL Ot Z95.0 PRESENCE OF CARDIAC PACEMAKER 11/25/2016 BAIMADUSTINBARRY L LIBRARY PARAPROFESSIONAL Ot I25.10 ATHSCL HEART DISEASE OF [place] CORONARY 01/06/2017 BAIMADUSTINBARRY L LIBRARY PARAPROFESSIONAL Ot E78.4 OTHER HYPERLIPIDEMIA 01/06/2017 BAIMA BARRY L LIBRARY PARAPROFESSIONAL Ot I25.10 ATHSCL HEART DISEASE OF [place] CORONARY 01/06/2017 BAIMA BARRY L LIBRARY PARAPROFESSIONAL Ot I65.23 OCCLUSION AND STENOSIS OF [place]ATER[place] 01/06/2017 BAIMA BARRY L LIBRARY PARAPROFESSIONAL Ot R26.89 OTHER ABNORMALITIES OF GAIT AND MOBILITY 01/06/2017 BAIMA BARRY L LIBRARY PARAPROFESSIONAL Ot Z95.0 PRESENCE OF CARDIAC PACEMAKER 02/04/2017 BAIMA BARRY L LIBRARY PARAPROFESSIONAL Ot I25.10 ATHSCL HEART DISEASE OF [place] CORONARY 02/04/2017 BAIMADUSTINBARRY L LIBRARY PARAPROFESSIONAL Ot I65.23 OCCLUSION AND STENOSIS OF [place] 02/04/2017 BAIMADUSTINBARRY L LIBRARY PARAPROFESSIONAL Ot R06.09 OTHER FORMS OF DYSPNEA 02/12/2017 BAIMA BARRY L LIBRARY PARAPROFESSIONAL Ot I25.10 ATHSCL HEART DISEASE OF [place] CORONARY 02/12/2017 BAIMADUSTINBARRY L LIBRARY PARAPROFESSIONAL Ot I65.23 OCCLUSION AND STENOSIS OF [place] 02/12/2017 BAIMADUSTINBARRY L LIBRARY PARAPROFESSIONAL Ot R06.09 OTHER FORMS OF DYSPNEA 02/16/2017 STEVEN VILLELA MD Ot E11.9 TYPE 2 DIABETES MELLITUS WITHOUT COMPLIC 02/16/2017 STEVEN VILLELA MD Ot F20.9 SCHIZOPHRENIA, UNSPECIFIED 02/16/2017 STEVEN VILLELA MD Ot F32.9 MAJOR DEPRESSIVE DISORDER, SINGLE EPISOD 02/16/2017 STEVEN VILLELA MD Ot F41.9 ANXIETY DISORDER, UNSPECIFIED 02/16/2017 STEVEN VILLELA MD Ot I25.10 ATHSCL HEART DISEASE OF [place] CORONARY 02/16/2017 STEVEN VILLELA MD Ot K02.9 DENTAL CARIES, UNSPECIFIED 02/16/2017 STEVEN VILLELA MD Ot K08.89 OTHER SPECIFIED DISORDERS OF TEETH AND S 02/16/2017 STEVEN VILLELA MD Ot Z79.4 MODEL MAKING SUPERVISOR (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 02/16/2017 STEVEN VILLELA MD Ot Z79.82 LONG-TERM (CURRENT) USE OF ASPIRIN 02/16/2017 STEVEN VILLELA [...] MD Ot I25.10 ATHSCL HEART DISEASE OF [place] CORONARY 02/25/2017 STEVEN VILLELA MD Ot K02.9 DENTAL CARIES, UNSPECIFIED 02/25/2017 STEVEN VILLELA MD Ot K08.89 OTHER SPECIFIED DISORDERS OF TEETH AND S 02/25/2017 STEVEN VILLELA MD Ot Z79.4 LONG-TERM (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 02/25/2017 STEVEN VILLELA MD Ot Z79.82 MODEL MAKING SUPERVISOR (CURRENT) USE OF ASPIRIN 02/25/2017 STEVEN VILLELA MD Ot Z86.73 PRSNL HX OF TIA (TIA), AND CEREB INFRC W 02/25/2017 STEVEN VILLELA MD Ot Z90.710 ACQUIRED ABSENCE OF BOTH CERVIX AND UTER 02/25/2017 STEVEN VILLELA MD Ot Z95.0 PRESENCE OF CARDIAC PACEMAKER 02/25/2017 STEVEN VILLELA MD Ot Z95.1 PRESENCE OF AORTOCORONARY BYPASS GRAFT 02/26/2017 BARRY REYES LIBRARY PARAPROFESSIONAL Ot 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 02/26/2017 BARRY REYES LIBRARY PARAPROFESSIONAL Ot E66.9 OBESITY, UNSPECIFIED 02/26/2017 BARRY REYES LIBRARY PARAPROFESSIONAL Ot F20.9 SCHIZOPHRENIA, UNSPECIFIED 02/26/2017 ERIC BARRY [place] LIBRARY PARAPROFESSIONAL Ot F32.9 MAJOR DEPRESSIVE DISORDER, SINGLE EPISOD 02/26/2017 EVNELSY BARRY L LIBRARY PARAPROFESSIONAL Ot I12.9 HYPERTENSIVE CHRONIC KIDNEY DISEASE W ST 02/26/2017 EVNELSY BARRY L LIBRARY PARAPROFESSIONAL Ot I25.10 ATHSCL HEART DISEASE OF [place] CORONARY 02/26/2017 EVNELSY BARRY L LIBRARY PARAPROFESSIONAL Ot I25.5 ISCHEMIC CARDIOMYOPATHY 02/26/2017 EVNELSY BARRY L LIBRARY PARAPROFESSIONAL Ot I65.23 OCCLUSION AND STENOSIS OF [place] 02/26/2017 EVNELSY BARRY L LIBRARY PARAPROFESSIONAL Ot 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 02/26/2017 ERIC BARRY L LIBRARY PARAPROFESSIONAL Ot N18.2 CHRONIC KIDNEY DISEASE, STAGE 2 (MILD) 02/26/2017 ERIC BARRY L LIBRARY PARAPROFESSIONAL Ot Z68.30 BODY MASS INDEX (BMI) 30.0-30.9, ADULT 02/26/2017 DUSTIN REYESHER L LIBRARY PARAPROFESSIONAL Ot Z79.4 LONG-TERM (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 02/26/2017 DUSTIN REYESHER L LIBRARY PARAPROFESSIONAL Ot Z79.899 OTHER MODEL MAKING SUPERVISOR (CURRENT) DRUG THERAPY 02/26/2017 ERIC BARRY L LIBRARY PARAPROFESSIONAL Ot Z95.1 PRESENCE OF AORTOCORONARY BYPASS GRAFT 02/26/2017 BARRY REYES L LIBRARY PARAPROFESSIONAL Ot Z95.810 PRESENCE OF AUTOMATIC (IMPLANTABLE) CARD 03/02/2017 ERIC BARRY [place] LIBRARY PARAPROFESSIONAL Ot 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 03/02/2017 BARRY REYES L LIBRARY PARAPROFESSIONAL Ot E66.9 OBESITY, UNSPECIFIED 03/02/2017 ERIC BARRY L LIBRARY PARAPROFESSIONAL Ot F20.9 SCHIZOPHRENIA, UNSPECIFIED 03/02/2017 ERIC BARRY L LIBRARY PARAPROFESSIONAL Ot F32.9 MAJOR DEPRESSIVE DISORDER, SINGLE EPISOD 03/02/2017 ERIC BARRY L LIBRARY PARAPROFESSIONAL Ot I12.9 HYPERTENSIVE CHRONIC KIDNEY DISEASE W ST 03/02/2017 ERIC BARRY L LIBRARY PARAPROFESSIONAL Ot I25.10 ATHSCL HEART DISEASE OF [place] CORONARY 03/02/2017 ERIC BARRY L LIBRARY PARAPROFESSIONAL Ot I25.5 ISCHEMIC CARDIOMYOPATHY 03/02/2017 ERIC BARRY L LIBRARY PARAPROFESSIONAL Ot I65.23 OCCLUSION AND STENOSIS OF [place] 03/02/2017 BARRY REYES LIBRARY PARAPROFESSIONAL Ot 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 03/02/2017 BARRY REYES LIBRARY PARAPROFESSIONAL Ot N18.2 CHRONIC KIDNEY DISEASE, STAGE 2 (MILD) 03/02/2017 BARRY REYES LIBRARY PARAPROFESSIONAL Ot Z68.30 BODY MASS INDEX (BMI) 30.0-30.9, ADULT 03/02/2017 EVBARRY WHITTINGTON LIBRARY PARAPROFESSIONAL Ot Z79.4 LONG-TERM (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 03/02/2017 EVBARRY [place] LIBRARY PARAPROFESSIONAL Ot Z79.899 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 MODEL MAKING 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 (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) DRUG THERAPY 03/02/2017 BARRY REYES LIBRARY PARAPROFESSIONAL Ot Z95.1 PRESENCE OF AORTOCORONARY BYPASS GRAFT 03/02/2017 EVNELSY BARRY [place] LIBRARY PARAPROFESSIONAL Ot Z95.810 PRESENCE OF AUTOMATIC (IMPLANTABLE) CARD 03/10/2017 EVBARRY WHITTINGTON LIBRARY PARAPROFESSIONAL Ot E78.4 OTHER HYPERLIPIDEMIA 03/10/2017 EVNELSY BARRY [place]ARY PARAPROFESSIONAL Ot I25.10 ATHSCL HEART DISEASE OF [place] CORONARY 03/10/2017 EVNELSY BARRY [place]RARY PARAPROFESSIONAL Ot I25.5 ISCHEMIC CARDIOMYOPATHY 03/10/2017 EVBARRY WHITTINGTON LIBRARY PARAPROFESSIONAL Ot N18.3 CHRONIC KIDNEY DISEASE, STAGE 3 (MODERAT 03/25/2017 SANDRO GLASER FACC, TRAY FACP CCDS Ot E05.90 THYROTOXICOSIS, UNSP WITHOUT THYROTOXIC 03/25/2017 SANDRO GLASER FACC, TRAY FACP CCDS Ot 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 03/25/2017 SANDRO GLASER FACC, TRAY FACP CCDS Ot E78.5 HYPERLIPIDEMIA, UNSPECIFIED 03/25/2017 SANDRO GLASER FACC, TRAY FACP CCDS Ot F20.9 SCHIZOPHRENIA, UNSPECIFIED 03/25/2017 SANDRO GLASER FACC, TRAY FACP CCDS Ot I12.9 HYPERTENSIVE CHRONIC KIDNEY DISEASE W ST 03/25/2017 SANDRO GLASER FACC, TRAY FACP CCDS Ot I25.10 ATHSCL HEART DISEASE OF [place] CORONARY 03/25/2017 SANDRO GLASER FACC, TRAY FACP [...] FACP CCDS Ot Z91.19 PATIENT'S NONCOMPLIANCE W [facility] 03/25/2017 SANDRO GLASER FACC, [...] 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 03/27/2017 SANDRO GLASER FACC, TRAY FACP CCDS [...] CCDS Ot I25.10 ATHSCL HEART DISEASE OF [place] CORONARY 03/27/2017 SANDRO GLASER FACC, ALI FACP [...] VARMA MD, FACC, FACP CCDS Ot Z79.02 LONG-TERM (CURRENT) USE OF 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 03/27/2017 TRAY VARMA MD, FACC FACP CCDS Ot Z79.4 MODEL MAKING SUPERVISOR (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 03/27/2017 TRAY VARMA MD, FACC FACP CCDS Ot Z79.899 OTHER LONG-TERM (CURRENT) DRUG THERAPY 03/27/2017 TRAY VARMA MD, FACC FACP CCDS Ot Z91.19 PATIENT'S NONCOMPLIANCE W [facility] 03/27/2017 TRAY VARMA MD, FACC FACP CCDS Ot Z95.1 PRESENCE OF AORTOCORONARY BYPASS GRAFT 03/27/2017 SANDRO GLASER FACC, TRAY FACP CCDS Ot Z95.5 PRESENCE OF CORONARY ANGIOPLASTY IMPLANT 03/27/2017 TRAY VARMA MD, FACC FACP CCDS Ot Z95.810 PRESENCE OF AUTOMATIC (IMPLANTABLE) CARD 05/01/2017 BARRY REYES LIBRARY PARAPROFESSIONAL Ot R10.31 RIGHT LOWER QUADRANT PAIN 05/01/2017 BAIBARRY WHITTINGTON LIBRARY PARAPROFESSIONAL Ot Z98.890 OTHER SPECIFIED POSTPROCEDURAL STATES 05/06/2017 BAIBARRY [place] LIBRARY PARAPROFESSIONAL Ot R10.31 RIGHT LOWER QUADRANT PAIN 05/06/2017 BAIMABARRY LIBRARY PARAPROFESSIONAL Ot Z98.890 OTHER SPECIFIED POSTPROCEDURAL STATES Procedures Code Description Performed By Performed On [facility] Th[facility]iz 02/12/2012 08577 ROUTINE VENIPUNCTURE 02/18/2012 52591 MICRO ALBUMIN-IN HOUSE 02/18/2012 15778 ROUTINE VENIPUNCTURE 02/18/2012 63298 CMP 02/18/2012 21099 LIPID PANEL 02/18/2012 0606545 GFR CALC (RESULT ONLY) 02/18/2012 08888 DIGOXIN 02/19/2012 40717 CBC 02/19/2012 47047 A1C (RML) 02/20/2012 64440 INDIV PSYTX 45/50 MIN 02/25/2012 30901 ROUTINE VENIPUNCTURE 04/27/2012 68362 CBC 04/27/2012 07937 CMP 04/27/2012 9638699 GFR CALC (RESULT ONLY) 04/27/2012 Mikal Duncan 04/27/2012 72731 PSYTX PT&/FAMILY 45 MINUTES 04/28/2012 86094 A1C (IN-HOUSE) 05/19/2012 97957 HEMOCCULT 05/24/2012 18554 UA W/ CULTURE IF INDICATED 05/24/2012 10407 MAMMOGRAM, SCREENING 05/25/2012 69461 ROUTINE VENIPUNCTURE 06/23/2012 62698 CBC 06/23/2012 55791 CMP 06/23/2012 54686 LIPID PANEL 06/23/2012 0931190 GFR CALC (RESULT ONLY) 06/23/2012 11617 DIGOXIN 06/24/2012 13229 BNP 06/25/2012 09054 INDIV PSYTX 45/50 MIN 09/08/2012 Cardiolog Sandro, Ali 10/13/2012 12415 ROUTINE VENIPUNCTURE 10/13/2012 36038 CMP 10/13/2012 50961 LIPID PANEL 10/13/2012 50050 MAGNESIUM 10/13/2012 9384821 GFR CALC (RESULT ONLY) 10/13/2012 58482 DIGOXIN 10/13/2012 59273 ROUTINE VENIPUNCTURE 11/18/2012 33233 CMP 11/18/2012 32537 LIPID PANEL 11/18/2012 0397055 GFR CALC (RESULT ONLY) 11/18/2012 25028 DIGOXIN 11/18/2012 41664 ROUTINE VENIPUNCTURE 05/26/2013 46164 MICRO ALBUMIN-IN HOUSE 05/26/2013 31009 A1C (IN-HOUSE) 05/26/2013 07926 MICROALBUMIN 05/26/2013 3620980 GFR CALC (RESULT ONLY) 05/26/2013 78163 BMP 05/26/2013 32283 XRAY SI JOINTS LESS THAN 3 VIEWS 08/25/2013 01723 XRAY HIP RIGHT UNILATERAL MIN 2 VIEWS [...] culture - 09/25/16 21:50 Bacterial urine culture [id number] NRG COLONY COUNT 10,000/ML - 100,000/ML NRG [...] Status Pt. Type Provider Facility Loc./Unit Complaint [id number] 03/16/2014 15:41:00 03/16/2014 23:59:59 CLS Outpatient ESTEE KATHY MORRIS Gage [id number] 11/16/2013 14:20:00 11/16/2013 23:59:59 CLS Outpatient ESTRADA PLUSH WEAVERDAYANA Gage [id number] 09/26/2013 17:01:00 09/26/2013 23:59:59 CLS Outpatient CARLITA WAITE MD [id number] 08/25/2013 15:02:00 08/25/2013 23:59:59 CLS Outpatient LOUANN MORRISFRANCISCOLurdes [place] [id number] 06/25/2013 13:11:00 06/25/2013 23:59:59 CLS Outpatient BOONE IRAHETA DO [id number] 05/26/2013 10:59:00 05/26/2013 23:59:59 CLS Outpatient WOOD CALDERON APRN [id number] 11/18/2012 10:09:00 11/18/2012 23:59:59 CLS Outpatient BOONE IRAHETA DO [id number] 05/24/2012 13:54:00 05/24/2012 23:59:59 CLS Outpatient BOONE IRAHETA DO [id number] 05/10/2012 14:28:00 05/10/2012 23:59:59 CLS Outpatient BOONE IRAHETA DO [id number] 04/27/2012 13:46:00 04/27/2012 23:59:59 CLS Outpatient BOONE IRAHETA DO [id number] 02/25/2012 16:14:00 02/25/2012 23:59:59 CLS Outpatient ERNESTO NINO PHD [id number] 02/18/2012 14:57:00 02/18/2012 23:59:59 CLS Outpatient WOOD CALDERON APRN [id number] 12/24/2011 13:52:00 12/24/2011 23:59:59 CLS Outpatient CHIQUITA ROGERS DO [id number] 10/13/2012 08:44:00 Document Registration [id number] 09/07/2012 14:15:00 Document Registration [id number] 08/16/2012 14:07:00 Document Registration [id number] 06/23/2012 09:34:00 Document Registration [id number] 05/04/2017 14:15:00 05/04/2017 23:59:59 CLS Outpatient WOOD CALDERON APRN [facility] [id number] 12/31/2016 08:40:00 Document Registration [id number] 04/13/2016 20:05:00 Document Registration [id number] 04/30/2017 14:43:00 04/30/2017 23:59:59 CLS Outpatient BAIMA, BARRY L LIBRARY PARAPROFESSIONAL [facility] RAD R10.31 RT GROIN PAIN [id number] 03/24/2017 07:44:00 03/25/2017 11:25:00 DIS Outpatient SANDRO GLASER FACC, TRAY TURCIOS CCDS [facility] CATH CAD,ISCHEMIC CM [id number] 03/04/2017 15:30:00 03/04/2017 23:59:59 CLS Outpatient BAIMA, BARRY L LIBRARY PARAPROFESSIONAL [facility] LAB I25.10, N18.3, I25.5 , E78.4 [id number] 02/24/2017 08:00:00 02/25/2017 10:30:00 DIS Outpatient BAIMA, BARRY L LIBRARY PARAPROFESSIONAL [facility] CATH CAD,CAROTID ARTERIAL DISEASE [id number] 02/16/2017 05:23:00 02/16/2017 05:55:00 DIS Emergency MANOHAR GLASER, STEVEN Vogel [facility] ER GEN PAIN TOOTH PAIN [id number] 02/03/2017 07:24:00 02/03/2017 23:59:59 CLS Outpatient BAIMA, BARRY L LIBRARY PARAPROFESSIONAL [facility] CARD CAD [id number] 12/02/2016 08:30:00 12/02/2016 23:59:59 CLS Preadmit BAIMA, BARRY L LIBRARY PARAPROFESSIONAL [facility] CARD CAD [id number] 11/25/2016 13:12:00 11/25/2016 23:59:59 CLS Outpatient BAIMA, BARRY L LIBRARY PARAPROFESSIONAL [facility] RAD CAD [id number] 10/21/2016 00:45:00 10/21/2016 15:00:00 DIS Inpatient CINDY THOMPSON MD [facility] 4TH UTI,ENCEPHALOPATHY, HYPONATREMIA [id number] 10/07/2016 12:00:00 10/07/2016 23:59:59 CLS Preadmit SANDRO GLASER FACTRAY Hdz FACP CCDS [facility] CARD R26.89 CLAUDICATION [id number] 09/25/2016 23:10:00 09/26/2016 11:15:00 DIS Inpatient CINDY THOMPSON MD [facility] 4TH SCHIZOPHRENIA,UTI, ALTERED MENTAL STATUS [id number] 11/26/2015 06:48:00 11/26/2015 08:11:00 DIS Emergency OTILIA ANDREW K [facility] ER NAUSEA [id number] 06/20/2015 08:47:00 06/20/2015 23:59:59 CLS Outpatient BARRY REYES [facility] RAD CAD,HTN,HLP [id number] 06/20/2015 10:53:00 06/20/2015 13:55:00 DIS Emergency SORAYA MARTINS [facility] ER HIGH BLOOD SUGAR [id number] 06/30/2014 16:07:00 06/30/2014 23:59:59 CLS Outpatient SNADRO GLASER FACC, TRAY TURCIOS CCDS [facility] LAB CAD,ISCHEMIC HEART DISEASE,CAROTID ARTERIAL DISEAS [id number] 09/05/2013 12:06:00 09/06/2013 12:38:00 DIS Inpatient CARLITA WAITE MD [facility] ICU SYNCOPE HYPERKALEMIA RENAL INSUFFICIENCY [id number] 09/24/2012 11:31:00 09/24/2012 14:53:00 DIS Emergency MAKENNA ODEN MD [facility] ER FELL L BACK PAIN [id number] 09/18/2012 11:29:00 09/18/2012 23:59:59 CLS Outpatient [id number] 08/16/2012 17:15:00 08/17/2012 14:53:00 DIS Inpatient CARLITA WAITE MD [facility] CSD SYNCOPYE,CP, HYPOMAGNESEMIA [id number] 07/20/2012 18:04:00 07/20/2012 23:59:59 CLS Outpatient [id number] 05/14/2014 18:01:00 Document Registration [id number] 01/14/2012 19:48:00 Document Registration [id number] 05/06/2011 03:25:00 Document Registration [id number] 04/17/2011 11:00:00 Document Registration [id number] 01/29/2011 09:53:00 Document Registration [id number] 01/28/2011 14:09:00 Document Registration [id number] 01/21/2011 15:15:00 Document Registration [id number] 01/16/2011 10:30:00 Document Registration [id number] 12/02/2010 13:54:00 Document Registration [id number] 09/18/2010 09:32:00 Document Registration [id number] 06/05/2010 19:49:00 Document Registration [id number] 05/31/2010 11:02:00 Document Registration [id number] 05/23/2010 09:27:00 Document Registration [id number] 05/20/2010 10:00:00 Document Registration [id number] 05/18/2010 09:49:00 Document Registration [id number] 05/16/2010 14:29:00 Document Registration [id number] 05/07/2010 15:08:00 Document Registration [id number] 04/25/2010 07:50:00 Document Registration [id number] 03/11/2010 16:05:00 Document Registration [id number] 02/07/2010 10:51:00 Document Registration [id number] 01/01/2017 08:40:00 Document Registration [id number] 03/21/2016 13:06:00 Document Registration [id number] 10/20/2016 09:36:00 11/11/2016 15:45:00 DIS Outpatient SHAN JUDAH [id number] 09/26/2016 10:48:00 10/13/2016 13:10:00 DIS Inpatient SHAN JUDAH [id number] 05/18/2016 18:22:00 05/18/2016 22:45:00 [id number] 05/18/2016 19:39:55 Document Registration [id number] 11/26/2015 12:47:00 Document Registration [id number] 03/23/2016 07:05:00 Document Registration
[2017-06-08] MEDS ORDERED: ONDANSETRON 4 MG/2 ML (SDV) Z0FRAN IV PRN (22:45)
[2017-06-08] MEDS ORDERED: ACETAMINOPHEN 500 MG TAB (TYLENOL) PO PRN (22:45)
[2017-06-08] MEDS ORDERED: amLODIPine 5 MG (NORVASC) TAB PO ONE (22:45)
[2017-06-08] MEDS ORDERED: CATHETER FLUSH 10 ML SYR IV PRN (22:45)
[2017-06-08] MEDS: NS IV 1000 ML 1,000 ML IV SCH (23:23)
[2017-06-08] MEDS: inSUlin DETERMIR 1 UNIT/0.01 ML (LEVEMIR) CHARGE PER UNIT SQ SCH (23:24)
[2017-06-09] VITALS: BP 179/72
[2017-06-09 04:25] VITALS: BP 132/63
[2017-06-09] MEDS: NS IV 1000 ML 1,000 ML IV SCH ×2 (05:03→11:05)
[2017-06-09] MEDS: CATHETER FLUSH 10 ML SYR IV SCH ×2 (05:03→14:42)
[2017-06-09] MEDS: inSUlin (REGULAR) HUMAN 1 UNIT/0.01 ML (CHARGE PER UNIT) SC SCH ×3 (05:31→16:18)
[2017-06-09 06:37] LABS: BASOPHILS % (AUTO) 1 % (0-10); EOSINOPHILS # (AUTO) 0.1 10^3/uL (0.0-0.3); EOSINOPHILS % (AUTO) 2 % (0-10); HEMATOCRIT 33 % (35-52); LYMPHOCYTES # (AUTO) 1.5 X 10^3 (1.0-4.0); LYMPHOCYTES % (AUTO) 27 % (12-44); MEAN CORPUSCULAR HEMOGLOBIN 29 PG (25-34); MEAN CORPUSCULAR HGB CONC 34 G/DL (32-36); MEAN CORPUSCULAR VOLUME 86 FL (80-99); MEAN PLATELET VOLUME 9.8 FL (7.4-10.4); MONOCYTES # (AUTO) 0.4 X 10^3 (0.0-1.0); MONOCYTES % (AUTO) 7 % (0-12); NEUTROPHILS # (AUTO) 3.5 X 10^3 (1.8-7.8); NEUTROPHILS % (AUTO) 64 % (42-75); PLATELET COUNT 136 10^3/uL (130-400); RED BLOOD COUNT 3.81 10^6/uL (4.35-5.85); RED CELL DISTRIBUTION WIDTH 13.8 % (10.0-14.5); WHITE BLOOD COUNT 5.5 10^3/uL (4.3-11.0)
[2017-06-09] MEDS: inSUlin ASPART (NovoLOG) 1 UNIT/0.01 ML (CHARGE PER UNIT) SC SCH ×2 (06:37→13:02)
[2017-06-09 06:56] LABS: CALCIUM 8.3 MG/DL (8.5-10.1); CREATININE SERUM 1.04 MG/DL (0.60-1.30); POTASSIUM 4.6 MMOL/L (3.6-5.0)
[2017-06-09] MEDS ORDERED: CARVEDILOL 12.5 MG (COREG) TABLET PO SCH ×2 (07:00→21:00)
[2017-06-09 08:00] VITALS: BP 134/62
[2017-06-09] MEDS ORDERED: CLOP75TA69 PO (08:23)
[2017-06-09] MEDS ORDERED: ATOR40TA70 PO (08:23)
[2017-06-09] MEDS ORDERED: INSU100I14 SC (08:23)
[2017-06-09] MEDS ORDERED: ASPI-983 PO (08:23)
[2017-06-09] MEDS ORDERED: ACET-2469 PO (08:30)
[2017-06-09] MEDS ORDERED: DIGOXIN 0.125 MG (LANOXIN) TAB PO SCH (09:00)
[2017-06-09] MEDS ORDERED: ASPIRIN 81 MG CHEW (CHILDREN'S ASA) PO SCH (09:00)
[2017-06-09] MEDS ORDERED: ENALAPRIL 10 MG (VASOTEC) TAB PO SCH (09:00)
[2017-06-09] MEDS: inSUlin DETERMIR 1 UNIT/0.01 ML (LEVEMIR) CHARGE PER UNIT SQ SCH (09:22)
--- NOTE | 2017-06-09 09:44 | Physical Therapy Evaluation ---
PT Evaluation-General Medical Diagnosis Admission Date Jun 08, 2017 at 21:42 Medical Diagnosis: syncope/dehydration Onset Date: Jun 08, 2017 Therapy Diagnosis Therapy Diagnosis: generalized weakness/debility Height/Weight Height (Feet): 5 Height (Inches): 4.00 Weight (Pounds): 170 Weight (Ounces): 9.0 Precautions Precautions/Isolations: Fall Prevention, Standard Precautions Weight Bear Status Right Lower Extremity: Right Weight Bearing/Tolerated Left Lower Extremity: Left Weight Bearing/Tolerated Referral Physician: Fernando Reason for Referral: Evaluation/Treatment Medical History Pertinent Medical History: Arthritis, CABG, CAD, CVA, DM Current History ER with dizziness Reviewed History: Yes Social History Home: Single Level Current Living Status: Spouse Prior/Core FIM Prior Level of Function Functional [place] Measure 0=Not Assessed/NA 4=Minimal Assistance 1=Total Assistance 5=Supervision or Setup 2=Maximal Assistance 6=Modified [place] 3=Moderate Assistance 7=Complete [place] Bed Mobility: 6 Transfers (B,C,W/C) (FIM): 6 Gait: 6 SBQC PT Evaluation-Current Subjective Patient agrees to PT. Pain Numeric Pain Scale: 0-No Pain Location: No Pain Reported Objective Patient Orientation: Normal For Age Problem Solving: Fair Attachments: IV ROM/Strength ROM Lower Extremities bilateral LE WNL Strength Lower Extremities right knee flexion/extension 3/5; hip flexion 3/5; DF/PF 3/5 left knee flexion/extension 4/5; hip flexion 4/5; DF/PF 4/5 Integumentary/Posture Integumentary refer to nursing notes Bowel Incontinence: No Bladder Incontinence: No Posture WFL Neuromuscular (Tone, Coordination, Reflexes) diminished coordination right LE Sensory Vision: Functional Hearing: Functional Sensation Right Lower Extremit: Impaired Sensation Left Lower Extremity: Impaired Transfers Functional [place] Measure 0=Not Assessed/NA 4=Minimal Assistance 1=Total Assistance 5=Supervision or Setup 2=Maximal Assistance 6=Modified [place] 3=Moderate Assistance 7=Complete [place] Transfers (B, C, W/C) (FIM): 5 Scootin Rollin Supine to/from Sit: 5 Sit to/from Stand: 5 Gait Mode of Locomotion: Walk Anticipated Mode of Locomotion: Walk Gait (FIM): 5 Distance (FIM): 3=150 ft Distance: 225' Gait Level of Assist: 5 Gait Assistive Device: Cane Small Base Quad Comments/Gait Description WBOS due to old CVA Balance Sitting Static: Normal Sitting Dynamic: Normal Standing Static: Normal Standing Dynamic: Fair Assessment/Needs 66 y.o. female, will be seen short term by skilled PT to ensure safe return to home with spouse at maximum LOF. Rehab Potential: Good PT Intermediate Goals Clinical Laboratory Assistant Goals PT Clinical Laboratory Assistant Goals Time Frame: Jun 19, 2017 Transfers (B,C,W/C) (FIM): 6 Gait (FIM): 6 Gait distance (FIM): 3=150 ft Gait Level of Assist: 6 Gait Assistive Device: Cane Small Base Quad PT Plan Treatment/Plan Treatment Plan: Continue Plan of Care Treatment Plan: Education, Functional Activity Cor[place], Functional Strength, Gait , Safety, Therapeutic Exercise Treatment Duration: Jun 19, 2017 Frequency: 6 times per week Estimated Hrs Per Day: .25 hour per day Patient and/or Family Agrees t: Yes Safety Risks/Education Patient Education: Safety Issues Teaching Recipient: Patient Teaching Methods: Discussion Response to Teaching: Verbalize Understanding Discharge Recommendations Equpiment Recommendations-D/C: Quad Cane (small based) Time/GCodes Time In: 905 Time Out: 921 Total Billed Treatment Time: 16 Total Billed Treatment 1 visit EVModC 16 min G Codes Necessary: Yes PT/OT Therapy GCodes Therapy Functional Limitation: Physical Therapy Test(s)/Tool used to determine: Level of Assistance Scale Functional Limitation-Current Charge Code: MOBCUR Modifier: CJ Functional Limitation-Goal Charge Code: MOBGOAL Modifier: DANNY LOVE PT Jun 09, 2017 09:44
--- NOTE | 2017-06-09 11:36 | Consultation-Cardiology ---
HPI-Cardiology Cardiology Consultation: Date of Consultation 06/09/17 Time Seen by Provider: 11:30 Date of Admission 06-08-17 Attending Physician Anastasia King DO Admitting Physician Anastasia King DO Consulting Physician Shaquille Jo MD HPI: Chief Complaint: Near syncope Ms. Rodríguez is a 66 year old female admitted to 430 from the ED with near syncope. She reports she has been feeling unwell for approx the last week at home. She reports on Thursday and Thursday she began to feel worse. She reports gen weakness, fever, chills, n/v and productive cough. She reports episodes of dizziness with position changes and then near syncope when rising to a standing position from lying in bed where she would fall back onto the bed. No report of loss of consciousness. No report of loss of bladder or bowel control. No c/ o LE edema. No c/o CP or palpitations. She reports she is feeling better this morning. She is sitting up in a chair. Review of Systems-Cardiology Review of Systems Constitutional: chills, fever, tiredness Eyes: No vision change Ears/Nose/Throat: No epistaxis, nasal drainage, No recent hearing loss Respiratory: As described under HPI Cardiovascular: As described under HPI Gastrointestinal: nausea, vomiting Genitourinary: No dysuria, No hematuria Musculoskeletal: no symptoms reported Skin: No rash, No ulcerations Psychiatric/Neurological: No seizure, No focal weakness Hematologic: No bleeding abnormalities [id number] Hx Patient Social History Alcohol Use: Denies Use Recreational Drug Use: No Smoking Status: Never a Smoker 2nd Hand Smoke Exposure: No Recent Foreign Travel: No Recent Infectious Disease Expo: No Physical Abuse Screen: No Sexual Abuse: No Immunizations Up To Date Tetanus Booster (TDap): Unknown Date of Pneumonia Vaccine: Apr 09, 2010 Past Medical History PMH As described under Assessment. Family Medical History Family Medical History: She reports her father and mother both had HTN. No report of premature CAD or SCD. Family History: 19 FATHER Family history: Hypertension 19 MOTHER Family history: Diabetes mellitus Family history: Hypertension G8 BROTHER Psychotic disorder (MENTAL HEALTH PROBLEMS) Allergies and Home Medications Allergies Coded Allergies: Bleach (Sodium Hypochlorite) (Verified Allergy, Unknown, 09/25/16) corn (Unverified Allergy, Unknown, 02/07/10) perfume (Verified Allergy, Unknown, 09/25/16) Home Medications Acetaminophen 500 Mg Tablet, 1,000 MG PO Q6H PRN for PAIN-MILD, (Reported) TAKES 2 (500 MG) TABLETS Acetaminophen/Diphenhydramine 1 Each Tablet, 2 TAB PO HS, (Reported) Aspirin 81 Mg Tablet.dr, 81 MG PO BID, (Reported) Atorvastatin Calcium 40 Mg Tablet, 40 MG PO HS, (Reported) Carvedilol 12.5 Mg Tablet, 12.5 MG PO BID, (Reported) Clopidogrel Bisulfate 75 Mg Tablet, 75 MG PO DAILY, (Reported) Digoxin 125 Mcg Tablet, 125 MCG PO DAILY, (Reported) Diphenhydramine HCl 25 Mg Capsule, 25 MG PO HS PRN for ALLERGIES, (Reported) Enalapril Maleate 20 Mg Tablet, 20 MG PO HS, (Reported) Fish Oil/Dha/Epa 1 Each Capsule, 1,200 MG PO DAILY, (Reported) Insulin Aspart 300 Units/3 Ml Solution, 10 UNITS SC AC, (Reported) Insulin Determir 1,000 Units/10 Ml Soln, 10 UNITS SC BID, (Reported) Loperamide HCl 2 Mg Tablet, PO UD PRN for DIARRHEA, (Reported) Lurasidone HCl 80 Mg Tablet, 80 MG PO HS, (Reported) Multivitamin 1 Each Tablet, 1 TAB PO DAILY, (Reported) Patient Home Medication List Home Medication List Reviewed: Yes Physical Exam-Cardiology Physical Exam Vital Signs/I&O Vital Sign - Last 12Hours 06/09/17 06/09/17 06/09/17 06/09/17 00:00 01:00 04:25 07:00 Temp 98.2 98.2 Pulse 70 70 71 73 Resp 19 19 B/P (MAP) 179/72 (107) 132/63 (86) Pulse Ox 96 97 O2 Delivery Room Air Room Air 06/09/17 06/09/17 08:00 09:00 Temp 97.2 Pulse 73 Resp 18 B/P (MAP) 134/62 (86) Pulse Ox 99 97 O2 Delivery Room Air Room Air Intake and Output 06/09/17 00:00 Intake Total 1500 ml Balance 1500 ml Capillary Refill : Less Than 3 Seconds Constitutional: AAO x 3, well-developed, well-nourished HEENT: PERRL, hearing is well preserved, oral hygience is good Neck: No carotid bruit, carotid pulses are 2 + bilaterally Respiratory: No accessory muscle use, No respiratory distress, chest expansion is symmetric, chest is bilaterally symmetric, lungs clear to auscultation Cardiovascular: regular rate-rhythm, No JVD, S1 and S2 Gastrointestinal: No tender, No soft, audible bowel sounds Rectal: deferred Extremities: no lower extremity edema bilateral Neurologic/Psychiatric: grossly intact, power is 5/5 both on sides Skin: No rash, No ulcerations Data Review Labs Laboratory Tests 06/08/17 18:22: White Blood Count 7.7, Red Blood Count 4.48, Hemoglobin 13.0, Hematocrit 38, Mean Corpuscular Volume 84, Mean Corpuscular Hemoglobin 29, Mean Corpuscular Hemoglobin Concent 35, Red Cell Distribution Width 13.6, Platelet Count 157, Mean Platelet Volume 10.1, Neutrophils (%) (Auto) 80H, Lymphocytes (%) (Auto) 15 , Monocytes (%) (Auto) 4, Eosinophils (%) (Auto) 1, Basophils (%) (Auto) 0, Neutrophils # (Auto) 6.2, Lymphocytes # (Auto) 1.1, Monocytes # (Auto) 0.3, Eosinophils # (Auto) 0.1, Basophils # (Auto) 0.0, Sodium Level 131L, Potassium Level 4.9, Chloride Level 103, Carbon Dioxide Level 22, Anion Gap 6, Blood Urea Nitrogen 23H, Creatinine 1.24, Estimat Glomerular Filtration Rate 43, BUN/ Creatinine Ratio 19, Glucose Level 252H, Calcium Level 9.2, Magnesium Level 1.6L , Total Bilirubin 0.5, Aspartate Amino Transf (AST/SGOT) 16, Alanine Aminotransferase (ALT/SGPT) 19, Alkaline Phosphatase 104, Troponin I < 0.30, C- Reactive Protein High Sensitivity 0.34, Total Protein 7.5, Albumin 4.2, Digoxin Level 0.60L 06/08/17 20:20: Urine Color YELLOW, Urine Clarity CLEAR, Urine pH 5, Urine Specific [place] 1.020, Urine Protein NEGATIVE, Urine Glucose (UA) 3+H, Urine Ketones NEGATIVE, Urine Nitrite NEGATIVE, Urine Bilirubin NEGATIVE, Urine Urobilinogen NORMAL, Urine Leukocyte Esterase 1+H, Urine RBC (Auto) NEGATIVE, Urine RBC NONE, Urine WBC NONE, Urine Squamous Epithelial Cells 0-2, Urine Crystals NONE, Urine Bacteria NEGATIVE, Urine Casts PRESENT, Urine Hyaline Casts RARE, Urine Mucus NEGATIVE, Urine Culture Indicated NO, Urine Opiates Screen NEGATIVE, Urine Oxycodone Screen NEGATIVE, Urine Methadone Screen NEGATIVE, Urine Propoxyphene Screen NEGATIVE, Urine Barbiturates Screen NEGATIVE, Ur Tricyclic Antidepressants Screen NEGATIVE, Urine Phencyclidine Screen NEGATIVE, Urine Amphetamines Screen NEGATIVE, Urine Methamphetamines Screen NEGATIVE, Urine Benzodiazepines Screen NEGATIVE, Urine Cocaine Screen NEGATIVE, Urine Cannabinoids Screen NEGATIVE 06/08/17 23:36: Glucometer 193H 06/09/17 05:23: Glucometer 179H 06/09/17 06:14: White Blood Count 5.5, Red Blood Count 3.81L, Hemoglobin 11.0L, Hematocrit 33L, Mean Corpuscular Volume 86, Mean Corpuscular Hemoglobin 29, Mean Corpuscular Hemoglobin Concent 34, Red Cell Distribution Width 13.8, Platelet Count 136, Mean Platelet Volume 9.8, Neutrophils (%) (Auto) 64, Lymphocytes (%) (Auto) 27, Monocytes (%) (Auto) 7, Eosinophils (%) (Auto) 2, Basophils (%) (Auto) 1, Neutrophils # (Auto) 3.5, Lymphocytes # (Auto) 1.5, Monocytes # (Auto) 0.4, Eosinophils # (Auto) 0.1, Basophils # (Auto) 0.0, Sodium Level 138, Potassium Level 4.6, Chloride Level 110H, Carbon Dioxide Level 20L, Anion Gap 8, Blood Urea Nitrogen 16, Creatinine 1.04, Estimat Glomerular Filtration Rate 53, BUN/ Creatinine Ratio 15, Glucose Level 168H, Calcium Level 8.3L Laboratory Tests 06/08/17 18:22 06/09/17 06:14 Radiology NAME: REY RODRÍGUEZ [facility] REC#: [id number] PT STATUS: ADM Gracy : 1950 PHYSICIAN: STEVEN VILLELA MD ADMIT DATE: 06/08/17 Signed Date of Exam: 06/08/17 CHEST PA/LAT (2 VIEW) EXAM: CHEST PA/LAT (2 VIEW). INDICATION: Congestion. Cough. Dizziness. Hypertension. COMPARISON: Chest radiograph 10/21/2016. FINDINGS: Normal heart size and pulmonary vascularity. Sternotomy with mediastinal markers. AICD. Cholecystectomy clips. No focal pulmonary opacity, pleural effusion, or pneumothorax. No acute osseous findings. No significant change. IMPRESSION: No acute cardiopulmonary findings. Dictated by: Dictated on workstation # [id number] Dict: 06/08/171929 Trans: 06/08/175 Interpreted by: BOUBACAR LOZA MD Electronically signed by: BOUBACAR LOZA MD 06/08/17 2432 A/P-Cardiology Assessment/Admission Diagnosis Near syncope likely d/t postural hypotension d/t intravascular vol depletion CAD with a h/o CABG in 2004. Cardiac cath of 02-24-17: Severe [place] coronary artery disease consisting of 70% ostial stenosis of the left main coronary artery, 99% to 100% stenosis of the mid left anterior descending artery, occlusion of the proximal left circumflex artery and severe mid vessel stenosis of the right coronary artery. The severe mid vessel stenosis of the right coronary artery was treated with Alpine Xience 3.0 x 30 mm stent, which reduced the stenosis to 0% residual. The right coronary artery also has 50% ostial stenosis. Patent aortocoronary graft to an obtuse marginal artery, but the obtuse marginal artery, distal to the stent, has an 80% stenosis and is a relatively small caliber vessel. Patent left internal mammary artery graft to the mid left anterior descending artery, but the left anterior descending artery is of a small caliber and is occluded in its distal portion. Elevated left ventricular end-diastolic pressure. Cardiac cath of 03/24/17: successful stenting (2.25x12 Alp Xience) of an OM distal to SVG insertion Small groin hematoma on groin u/s of 04/30/17 w/o evidence of pseudoaneurysm or AV fistula Abnormal stress test. MPI of 02/03/17: small to mod anteroseptal ischemia, no RWMA, LVEF 62% Syncope in August 2013 that was due to postural hypotension due to dehydration DM II H/o CKD, stage 2-3 Hypertension H/o ischemic cardiomyopathy but most recent echo of June 2015 is reported to have shown LVEF 55-60% and mild MR & TR; and PASP of 30-35 mmHg Pacemaker/defib implantation in Apr 2010, functioning normally on interrogation carried out on 11-19-16 CAD with a h/o CABG in 2004 Abnormal ECG. ECG on 08/20/16 shows paced atrial rhythm, [place] vent rhythm with diffuse repol abnormality (unchanged from previous ECG) Chronically abnormal ECG Carotid arterial disease with h/o R CEA by Dr Rosales in the , according to the patient. Carotid u/s of June 2015: mild bilat plaque of 0-40% Intermittent non-compliance with medical instructions HLP - followed by her PCP Hyperthyroidism per lab of June 2014 - followed by her PCP H/o emilie in the . She has had some speech impairment since then. Has recovered from R-sided weakness Bilateral leg discomfort - segmental pressures of November 2016 is non- diagnostic d/t noncompressibility of the leg vessels. Waveforms however, appear to be good H/o schizophrenia Clinical Quality Measures DVT/VTE Risk/Contraindication: Risk Factor Score Per Nursin RFS Level Per Nursing on Admit: 2=Moderate BRARY REYES Jun 09, 2017 11:36
[2017-06-09] MEDS ORDERED: PATIENT MAY USE OWN MED,SINGLE MED PO SCH (11:45)
--- NOTE | 2017-06-09 11:54 | Occupational Therapy Eval ---
OT Evaluation-General/PLF Medical Diagnosis Admission Date Jun 08, 2017 at 21:42 Medical Diagnosis: syncope/dehydration Onset Date: Jun 08, 2017 Therapy Diagnosis Therapy Diagnosis: decr self care, weakness, decr activity tolerance Height/Weight Height (Feet): 5 Height (Inches): 4.00 Weight (Pounds): 170 Weight (Ounces): 9.0 Precautions Precautions/Isolations: Fall Prevention, Standard Precautions Safety Interventions: None Referral Physician: Fernando Referral Reason: Evaluation/Treatment Medical History Pertinent Medical History: Arthritis, CABG, CAD, CVA, DM, HTN, Macular Degenertion Additional Medical History Pacemaker, defibrillator. Cardiac stents. R carotid endarterectomy. CVA in . Chronic UTI. Gall bladder disease. Cataracts, pending surgery. Anxiety, schizophrenia, depression. Current History Admitted through ED with dizziness, dehydration. Syncope. Upper respiratory infection. Reviewed History: Yes Social History Home: Single Level Current Living Status: Spouse Entry Into Home: Ramp ADL-Prior Level of Function ADL PLOF Comments Pt reported that she has been independent with her basic self care needs prior to admission except she sometimes had trouble with socks. She is able to manage tasks for home care but hasn't driven since CVA. She walks with a small base quad cane and reported that she limps with her R leg. 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 DME/Equipment: Grab Bars, Tub/Shower DME/Equipment Comments Grab bars in tub and by toilet. OT Current Status Subjective Pt seen in room, up in bed, agreeable to OT. No pain mentioned. Appearance Alert, cooperative Mental Status/Objective Attachments: Central Line, IV, Ventilator Current Hand Dominance: Right Upper Extremity ROM Grossly WFL bilat Upper Extremity Strength grossly 4/5 bilat Pt reported that she has lost her glasses but needs to have cataract surgery, then get new glasses. She has difficulty reading due to the cataracts. ADL-Treatment ADL-Current Pt was able to move from supine to sit EOB with SBA. Sit to stand with SBA, quad cane. She walked to bathroom with SBA, quad cane, got on and off toilet with SBA, managed clothing and hygiene, washed hands all with SBA, quad cane. She returned to her bed and was able to get her legs into bed without help. pt left up in bed, 4 rails up, all needs met. Functional [place] Measure 0=Not Assessed/NA 4=Minimal Assistance 1=Total Assistance 5=Supervision or Setup 2=Maximal Assistance 6=Modified [place] 3=Moderate Assistance 7=Complete IndependenceIRFPAI Quality Coding Scale 6 Independent with activity with or without an assistive device 5 Patient requires set up or clean up by helper. Patient completes activity by themselves 4 Supervision or touching assist (CGA). Paulina provide cues , steadying assist 3 The helper provides less than half the effort to complete the activity 2 The helper provides more than half the effort to complete the activity 1 Dependent. The helper does all the effort to complete an activity 7 Patient refused to complete or attempt activity 9 The patient did not perform the activity before the current illness or injury 88 Not attempted due to Medical conditions or safety concerns Grooming (FIM): 5 Toileting (FIM): 5 Toilet/Commode Transfer (FIM): 5 Education OT Patient Education: Purpose of tx/functional activities, Rehab process, Safety issues, Transfer techniques Teaching Recipient: Patient Teaching Methods: Discussion Response to Teaching: Verbalize Understanding, Return Demonstration, Reinforcement Needed OT Jail Goals Jail Goals Time Frame: Jun 19, 2017 Eating (FIM): 6 Grooming(FIM): 6 Bathing(FIM): 6 Upper Body Dressing(FIM): 6 Lower Body Dressing(FIM): 6 Toileting(FIM): 6 Toilet/Commode Transfer(FIM): 6 Shower Transfer(FIM): 6 Additional Goals: 1-Demonstrate ADL Tasks, 2-Verbalize Understanding, 3- ImproveStrength/Corine 1=Demonstrate adherence to instructed precautions during ADL tasks. 2=Patient will verbalize/demonstrate understanding of assistive devices/ modifications for ADL. 3=Patient will improve strength/tolerance for activity to enable patient to perform ADL's. OT Education/Plan Problem List/Assessment Assessment: Decreased Activ Tolerance, Decreased UE Strength, Impaired Self- Care Skills Pt would benefit from skilled OT to increase her independence in basic self care to allow her to safely return to her home. Discharge Recommendations Plan/Recommendations: Continue POC Treatment Plan/Plan of Care Treatment,Training & Education: Yes Patient would benefit from OT for education, treatment and training to promote independence in ADL's, mobility, safety and/or upper extremity function for ADL' s. Plan of Care: ADL Retraining, UE Funct Exercise/Act Treatment Duration: Jun 16, 2017 Frequency: 5 times per week Estimated Hrs Per Day: .25 hour per day Agreement: Yes Rehab Potential: Good Time/GCodes Start Time: 08:42 Stop Time: 08:59 Total Time Billed (hr/min): 17 Billed Treatment Time visit, evaluation moderate intensity 17 minutes PT/OT Therapy GCodes Therapy Functional Limitation: Occupational Therapy Test(s)/Tool used to determine: FIM Functional Limitation-Current Charge Code: SELFCUR Modifier: CJ Functional Limitation-Goal Modifier: MALCOLM GARCIAS OT Jun 09, 2017 11:54
[2017-06-09 12:00] VITALS: BP 136/68
[2017-06-09] MEDS ORDERED: ACETAMINOPHEN 500 MG TAB (TYLENOL) PO PRN (12:15)
[2017-06-09] MEDS ORDERED: CLOPIDOGREL 75 MG (PLAVIX) TABLET PO SCH (13:00)
--- NOTE | 2017-06-09 15:01 | Discharge Instructions ---
Discharge [facility] Discharge Medications Continued Medications: Acetaminophen (Acetaminophen) 500 Mg Tablet 1000 MG PO Q6H PRN for PAIN-MILD, TAB TAKES 2 (500 MG) TABLETS Acetaminophen/Diphenhydramine (Tylenol Pm Ex-Strength Caplet) 1 Each Tablet 2 TAB PO HS, TAB Aspirin (Aspirin EC) 81 Mg Tablet.dr 81 MG PO BID, TAB Atorvastatin Calcium (Atorvastatin Calcium) 40 Mg Tablet 40 MG PO HS, TAB Carvedilol (Carvedilol) 12.5 Mg Tablet 12.5 MG PO BID, TAB Clopidogrel Bisulfate (Plavix) 75 Mg Tablet 75 MG PO DAILY, TAB Digoxin (Digoxin) 125 Mcg Tablet 125 MCG PO DAILY, TAB Diphenhydramine HCl (Benadryl) 25 Mg Capsule 25 MG PO HS PRN for ALLERGIES, CAP Enalapril Maleate (Enalapril Maleate) 20 Mg Tablet 20 MG PO HS, TAB Fish Oil/Dha/Epa (Fish Oil 1,200 mg Fish Oil) 1 Each Capsule 1200 MG PO DAILY, CAP Insulin Aspart (Novolog Flexpen) 300 Units/3 Ml Solution 10 UNITS SC AC, EA Insulin Determir (Levemir) 1,000 Units/10 Ml Soln 10 UNITS SC BID, EA Loperamide HCl (Anti-Diarrhea) 2 Mg Tablet PO UD PRN for DIARRHEA, TAB Lurasidone HCl (Latuda) 80 Mg Tablet 80 MG PO HS, TAB Multivitamin (Daily Multiple Vitamin) 1 Each Tablet 1 TAB PO DAILY, TAB Patient Instructions Goal/Follow Up Appt: Follow-up with Mary Goins APRN at [facility] 06/15/17 at 1:20pm Follow-up with Dr. Jo in 1-2 weeks. Activity & Diet Discharge Diet: ADA Diet Activity as Tolerated: Yes Orders-Post D/C & Referrals Pneu Vac Indicated: Yes BOONE IRAHETA DO Jun 09, 2017 15:01
[2017-06-09] MEDS ORDERED: CANE1EAC26 MC ×4 (15:04→15:25)
--- NOTE | 2017-06-09 15:05 | Short Stay Summary ---
History of Present Illness History of Present Illness Reason for visit/HPI Pt reports URI symptoms for the past week including cough and congestion. Pt reports feeling weak on standing w/ dizziness and near syncope for the past couple of days. She has had similar symptoms in the past due to dehydration. Pt is followed by Dr. Jo for her cardiac issues. Pt reports feeling improved this am. Has been able to be up and ambulate w/o dizziness. Date of Admission Jun 08, 2017 at 21:42 Date of Discharge June 09, 2017 Time Seen by Provider: 14:15 Attending Physician Boone Iraheta DO Admitting Physician Boone Iraheta DO Consult TRAY JO MD FACP FAC CCDS Allergies and Home Medications Allergies Coded Allergies: Bleach (Sodium Hypochlorite) (Verified Allergy, Unknown, 09/25/16) corn (Unverified Allergy, Unknown, 02/07/10) perfume (Verified Allergy, Unknown, 09/25/16) Home Medications Acetaminophen 500 Mg Tablet, 1,000 MG PO Q6H PRN for PAIN-MILD, (Reported) TAKES 2 (500 MG) TABLETS Acetaminophen/Diphenhydramine 1 Each Tablet, 2 TAB PO HS, (Reported) Aspirin 81 Mg Tablet.dr, 81 MG PO BID, (Reported) Atorvastatin Calcium 40 Mg Tablet, 40 MG PO HS, (Reported) Carvedilol 12.5 Mg Tablet, 12.5 MG PO BID, (Reported) Clopidogrel Bisulfate 75 Mg Tablet, 75 MG PO DAILY, (Reported) Digoxin 125 Mcg Tablet, 125 MCG PO DAILY, (Reported) Diphenhydramine HCl 25 Mg Capsule, 25 MG PO HS PRN for ALLERGIES, (Reported) Enalapril Maleate 20 Mg Tablet, 20 MG PO HS, (Reported) Fish Oil/Dha/Epa 1 Each Capsule, 1,200 MG PO DAILY, (Reported) Insulin Aspart 300 Units/3 Ml Solution, 10 UNITS SC AC, (Reported) Insulin Determir 1,000 Units/10 Ml Soln, 10 UNITS SC BID, (Reported) Loperamide HCl 2 Mg Tablet, PO UD PRN for DIARRHEA, (Reported) Lurasidone HCl 80 Mg Tablet, 80 MG PO HS, (Reported) Multivitamin 1 Each Tablet, 1 TAB PO DAILY, (Reported) Patient Home Medication List Home Medication List Reviewed: Yes Past Fsyfhre-Ltpfoa-Gtdeqt Hx Patient Social History Alcohol Use: Denies Use Recreational Drug Use: No Smoking Status: Never a Smoker 2nd Hand Smoke Exposure: No Physical Abuse Screen: No Sexual Abuse: No Recent Foreign Travel: No Contact w/other who traveled: No Recent Hopitalizations: No Recent Infectious Disease Expo: No Immunizations Up To Date Tetanus Booster (TDap): Unknown Pediatric: No Date of Pneumonia Vaccine: Apr 09, 2010 Seasonal Allergies Seasonal Allergies: No Surgeries Yes (right carotid endarterectomy, colonoscopy, valve replacement) CABG, Hysterectomy, Pacemaker Respiratory No Currently Using CPAP: No Currently Using BIPAP: No Cardiovascular Yes (has pacemaker/defibrillator, DOUBLE BYPASS) Coronary Artery Disease, High Cholesterol, Irregular Heartbeat Neurological Yes Stroke Reproductive System Hx Reproductive Disorders: No 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 Genitourinary Yes UTI-Chronic Gastrointestinal Yes Gall Bladder Disease Musculoskeletal Yes Arthritis Endocrine History of Endocrine Disorders: Yes Endocrine Disorders: Diabetes, Insulin dep Are Your Blood Sugars Over 250: No HEENT History of HEENT Disorders: Yes HEENT Disorders: Cataract, Macular Degeneration Loss of Vision: Denies Hearing Impairment: Denies Cancer No Psychosocial History of Psychiatric Problem: Yes Behavioral Health Disorders: Anxiety, Schizophrenia, Depression Integumentary History of Skin or Integumenta: No Blood Transfusions History of Blood Disorders: No Adverse Reaction to a Blood Tr: No Family Medical History Significant Family History: No Pertinent Family Hx Family Hx: Family history: Diabetes mellitus 19 MOTHER Family history: Hypertension 19 FATHER 19 MOTHER Psychotic disorder G8 BROTHER (MENTAL HEALTH PROBLEMS) Constitutional: see HPI Respiratory: cough Cardiovascular: no symptoms reported Gastrointestinal: no symptoms reported Genitourinary: no symptoms reported Physical Exam Vital Signs Vital Signs - First Documented 06/08/17 16:56 Temp 96.2 Pulse 70 Resp 18 B/P (MAP) 186/66 (106) Pulse Ox 100 O2 Delivery Room Air Capillary Refill : Less Than 3 Seconds General Appearance: No Apparent Distress, WD/WN HEENT: PERRL/EOMI Respiratory: Lungs Clear, Normal Breath Sounds Cardiovascular: Regular Rate, Rhythm Neurologic/Psychiatric: Alert, Oriented x3 Clinical Quality Measures DVT/VTE Risk/Contraindication: Risk Factor Score Per Nursin RFS Level Per Nursing on Admit: 2=Moderate Short Stay Diagnosis Discharge Diagnosis-Short Stay Admission Diagnosis: 1. Near syncope secondary to dehydration Final Discharge Diagnosis: 1. Near syncope secondary to dehydration Conclusion Labs Laboratory Tests 06/08/17 18:22: White Blood Count 7.7, Red Blood Count 4.48, Hemoglobin 13.0, Hematocrit 38, Mean Corpuscular Volume 84, Mean Corpuscular Hemoglobin 29, Mean Corpuscular Hemoglobin Concent 35, Red Cell Distribution Width 13.6, Platelet Count 157, Mean Platelet Volume 10.1, Neutrophils (%) (Auto) 80H, Lymphocytes (%) (Auto) 15 , Monocytes (%) (Auto) 4, Eosinophils (%) (Auto) 1, Basophils (%) (Auto) 0, Neutrophils # (Auto) 6.2, Lymphocytes # (Auto) 1.1, Monocytes # (Auto) 0.3, Eosinophils # (Auto) 0.1, Basophils # (Auto) 0.0, Sodium Level 131L, Potassium Level 4.9, Chloride Level 103, Carbon Dioxide Level 22, Anion Gap 6, Blood Urea Nitrogen 23H, Creatinine 1.24, Estimat Glomerular Filtration Rate 43, BUN/ Creatinine Ratio 19, Glucose Level 252H, Calcium Level 9.2, Magnesium Level 1.6L , Total Bilirubin 0.5, Aspartate Amino Transf (AST/SGOT) 16, Alanine Aminotransferase (ALT/SGPT) 19, Alkaline Phosphatase 104, Troponin I < 0.30, C- Reactive Protein High Sensitivity 0.34, Total Protein 7.5, Albumin 4.2, Digoxin Level 0.60L 06/08/17 20:20: Urine Color YELLOW, Urine Clarity CLEAR, Urine pH 5, Urine Specific [place] 1.020, Urine Protein NEGATIVE, Urine Glucose (UA) 3+H, Urine Ketones NEGATIVE, Urine Nitrite NEGATIVE, Urine Bilirubin NEGATIVE, Urine Urobilinogen NORMAL, Urine Leukocyte Esterase 1+H, Urine RBC (Auto) NEGATIVE, Urine RBC NONE, Urine WBC NONE, Urine Squamous Epithelial Cells 0-2, Urine Crystals NONE, Urine Bacteria NEGATIVE, Urine Casts PRESENT, Urine Hyaline Casts RARE, Urine Mucus NEGATIVE, Urine Culture Indicated NO, Urine Opiates Screen NEGATIVE, Urine Oxycodone Screen NEGATIVE, Urine Methadone Screen NEGATIVE, Urine Propoxyphene Screen NEGATIVE, Urine Barbiturates Screen NEGATIVE, Ur Tricyclic Antidepressants Screen NEGATIVE, Urine Phencyclidine Screen NEGATIVE, Urine Amphetamines Screen NEGATIVE, Urine Methamphetamines Screen NEGATIVE, Urine Benzodiazepines Screen NEGATIVE, Urine Cocaine Screen NEGATIVE, Urine Cannabinoids Screen NEGATIVE 06/08/17 23:36: Glucometer 193H 06/09/17 05:23: Glucometer 179H 06/09/17 06:14: White Blood Count 5.5, Red Blood Count 3.81L, Hemoglobin 11.0L, Hematocrit 33L, Mean Corpuscular Volume 86, Mean Corpuscular Hemoglobin 29, Mean Corpuscular Hemoglobin Concent 34, Red Cell Distribution Width 13.8, Platelet Count 136, Mean Platelet Volume 9.8, Neutrophils (%) (Auto) 64, Lymphocytes (%) (Auto) 27, Monocytes (%) (Auto) 7, Eosinophils (%) (Auto) 2, Basophils (%) (Auto) 1, Neutrophils # (Auto) 3.5, Lymphocytes # (Auto) 1.5, Monocytes # (Auto) 0.4, Eosinophils # (Auto) 0.1, Basophils # (Auto) 0.0, Sodium Level 138, Potassium Level 4.6, Chloride Level 110H, Carbon Dioxide Level 20L, Anion Gap 8, Blood Urea Nitrogen 16, Creatinine 1.04, Estimat Glomerular Filtration Rate 53, BUN/ Creatinine Ratio 15, Glucose Level 168H, Calcium Level 8.3L 06/09/17 11:32: Glucometer 131H Conclusion/Plan Pt admitted for observation. Treated w/ IVF, with improvement in labs and symptoms. DC to home today. F/u w/ PCP Mary 06/15/17. Will continue same home medication on DC. BOONE IRAHETA DO Jun 09, 2017 15:05
[2017-06-09 16:15] VITALS: BP 168/80
[2017-06-09 16:44] VITALS: BP 168/80
[2017-06-09] MEDS ORDERED: LURASIDONE 80 MG (LATUDA) TABLET NON-FORMULARY PO SCH (17:00)
--- NOTE | 2017-06-09 17:14 | Consultation-Cardiology ---
HPI-Cardiology Cardiology Consultation: Date of Consultation 06/09/17 Time Seen by Provider: 16:10 Date of Admission Attending Physician Anastasia King DO Admitting Physician Anastasia King DO Consulting Physician TRAY VARMA MD, FACP, FACC HPI: Chief Complaint: CC: Near-syncope HPI: Ms. Rodríguez is a 66 year old female admitted to [facility] from the ED with near syncope. She reports she has been feeling unwell for approx the last week at home. She reports on Thursday and Thursday she began to feel worse. She reports gen weakness, fever, chills, n/v and productive cough. She reports episodes of dizziness with position changes and then near syncope when rising to a standing position from lying in bed where she would fall back onto the bed. No report of loss of consciousness. No report of loss of bladder or bowel control. No c/ o LE edema. No c/o CP or palpitations. She reports she is feeling better this morning. She is sitting up in a chair. Review of Systems-Cardiology Review of Systems Constitutional: chills, fever, tiredness Eyes: No vision change Ears/Nose/Throat: No epistaxis, nasal drainage, No recent hearing loss Respiratory: As described under HPI Cardiovascular: As described under HPI Gastrointestinal: nausea, vomiting Genitourinary: No dysuria, No hematuria Musculoskeletal: no symptoms reported Skin: No rash, No ulcerations Psychiatric/Neurological: No seizure, No focal weakness Hematologic: No bleeding abnormalities CEH-Silpnm-Igxmqx Hx Patient Social History Alcohol Use: Denies Use Recreational Drug Use: No Smoking Status: Never a Smoker 2nd Hand Smoke Exposure: No Recent Foreign Travel: No Recent Infectious Disease Expo: No Physical Abuse Screen: No Sexual Abuse: No Immunizations Up To Date Tetanus Booster (TDap): Unknown Date of Pneumonia Vaccine: Apr 09, 2010 Past Medical History PMH As described under Assessment. Family Medical History Family Medical History: She reports her father and mother both had HTN. No report of premature CAD or SCD. Family History: Family history: Diabetes mellitus 19 MOTHER Family history: Hypertension 19 FATHER 19 MOTHER Psychotic disorder G8 BROTHER (MENTAL HEALTH PROBLEMS) Allergies and Home Medications Allergies Coded Allergies: Bleach (Sodium Hypochlorite) (Verified Allergy, Unknown, 09/25/16) corn (Unverified Allergy, Unknown, 02/07/10) perfume (Verified Allergy, Unknown, 09/25/16) Home Medications Acetaminophen 500 Mg Tablet, 1,000 MG PO Q6H PRN for PAIN-MILD, (Reported) TAKES 2 (500 MG) TABLETS Acetaminophen/Diphenhydramine 1 Each Tablet, 2 TAB PO HS, (Reported) Aspirin 81 Mg Tablet.dr, 81 MG PO BID, (Reported) Atorvastatin Calcium 40 Mg Tablet, 40 MG PO HS, (Reported) Carvedilol 12.5 Mg Tablet, 12.5 MG PO BID, (Reported) Clopidogrel Bisulfate 75 Mg Tablet, 75 MG PO DAILY, (Reported) Digoxin 125 Mcg Tablet, 125 MCG PO DAILY, (Reported) Diphenhydramine HCl 25 Mg Capsule, 25 MG PO HS PRN for ALLERGIES, (Reported) Enalapril Maleate 20 Mg Tablet, 20 MG PO HS, (Reported) Fish Oil/Dha/Epa 1 Each Capsule, 1,200 MG PO DAILY, (Reported) Insulin Aspart 300 Units/3 Ml Solution, 10 UNITS SC AC, (Reported) Insulin Determir 1,000 Units/10 Ml Soln, 10 UNITS SC BID, (Reported) Loperamide HCl 2 Mg Tablet, PO UD PRN for DIARRHEA, (Reported) Lurasidone HCl 80 Mg Tablet, 80 MG PO HS, (Reported) Multivitamin 1 Each Tablet, 1 TAB PO DAILY, (Reported) Patient Home Medication List Home Medication List Reviewed: Yes Physical Exam-Cardiology Physical Exam Vital Signs/I&O Vital Sign - Last 12Hours 06/09/17 06/09/17 06/09/17 06/09/17 07:00 08:00 09:00 12:00 Temp 97.2 97.6 Pulse 73 73 70 Resp 18 18 B/P (MAP) 134/62 (86) 136/68 (90) Pulse Ox 99 97 98 O2 Delivery Room Air Room Air Room Air 06/09/17 06/09/17 06/09/17 13:00 16:15 16:44 Temp 96.6 Pulse 69 70 70 Resp 16 16 B/P (MAP) 168/80 (109) 168/80 Pulse Ox 100 100 O2 Delivery Room Air Room Air Intake and Output 06/09/17 00:00 Intake Total 1500 ml Balance 1500 ml Capillary Refill : Less Than 3 Seconds Constitutional: AAO x 3, well-developed, well-nourished HEENT: PERRL, hearing is well preserved, oral hygience is good Neck: No carotid bruit, carotid pulses are 2 + bilaterally Respiratory: No accessory muscle use, No respiratory distress, chest expansion is symmetric, chest is bilaterally symmetric, lungs clear to auscultation Cardiovascular: regular rate-rhythm, No JVD, S1 and S2 Gastrointestinal: No tender, No soft, audible bowel sounds Rectal: deferred Extremities: no lower extremity edema bilateral Neurologic/Psychiatric: grossly intact, power is 5/5 both on sides Skin: No rash, No ulcerations Data Review Labs Laboratory Tests 06/08/17 18:22: White Blood Count 7.7, Red Blood Count 4.48, Hemoglobin 13.0, Hematocrit 38, Mean Corpuscular Volume 84, Mean Corpuscular Hemoglobin 29, Mean Corpuscular Hemoglobin Concent 35, Red Cell Distribution Width 13.6, Platelet Count 157, Mean Platelet Volume 10.1, Neutrophils (%) (Auto) 80H, Lymphocytes (%) (Auto) 15 , Monocytes (%) (Auto) 4, Eosinophils (%) (Auto) 1, Basophils (%) (Auto) 0, Neutrophils # (Auto) 6.2, Lymphocytes # (Auto) 1.1, Monocytes # (Auto) 0.3, Eosinophils # (Auto) 0.1, Basophils # (Auto) 0.0, Sodium Level 131L, Potassium Level 4.9, Chloride Level 103, Carbon Dioxide Level 22, Anion Gap 6, Blood Urea Nitrogen 23H, Creatinine 1.24, Estimat Glomerular Filtration Rate 43, BUN/ Creatinine Ratio 19, Glucose Level 252H, Calcium Level 9.2, Magnesium Level 1.6L , Total Bilirubin 0.5, Aspartate Amino Transf (AST/SGOT) 16, Alanine Aminotransferase (ALT/SGPT) 19, Alkaline Phosphatase 104, Troponin I < 0.30, C- Reactive Protein High Sensitivity 0.34, Total Protein 7.5, Albumin 4.2, Digoxin Level 0.60L 06/08/17 20:20: Urine Color YELLOW, Urine Clarity CLEAR, Urine pH 5, Urine Specific [place] 1.020, Urine Protein NEGATIVE, Urine Glucose (UA) 3+H, Urine Ketones NEGATIVE, Urine Nitrite NEGATIVE, Urine Bilirubin NEGATIVE, Urine Urobilinogen NORMAL, Urine Leukocyte Esterase 1+H, Urine RBC (Auto) NEGATIVE, Urine RBC NONE, Urine WBC NONE, Urine Squamous Epithelial Cells 0-2, Urine Crystals NONE, Urine Bacteria NEGATIVE, Urine Casts PRESENT, Urine Hyaline Casts RARE, Urine Mucus NEGATIVE, Urine Culture Indicated NO, Urine Opiates Screen NEGATIVE, Urine Oxycodone Screen NEGATIVE, Urine Methadone Screen NEGATIVE, Urine Propoxyphene Screen NEGATIVE, Urine Barbiturates Screen NEGATIVE, Ur Tricyclic Antidepressants Screen NEGATIVE, Urine Phencyclidine Screen NEGATIVE, Urine Amphetamines Screen NEGATIVE, Urine Methamphetamines Screen NEGATIVE, Urine Benzodiazepines Screen NEGATIVE, Urine Cocaine Screen NEGATIVE, Urine Cannabinoids Screen NEGATIVE 06/08/17 23:36: Glucometer 193H 06/09/17 05:23: Glucometer 179H 06/09/17 06:14: White Blood Count 5.5, Red Blood Count 3.81L, Hemoglobin 11.0L, Hematocrit 33L, Mean Corpuscular Volume 86, Mean Corpuscular Hemoglobin 29, Mean Corpuscular Hemoglobin Concent 34, Red Cell Distribution Width 13.8, Platelet Count 136, Mean Platelet Volume 9.8, Neutrophils (%) (Auto) 64, Lymphocytes (%) (Auto) 27, Monocytes (%) (Auto) 7, Eosinophils (%) (Auto) 2, Basophils (%) (Auto) 1, Neutrophils # (Auto) 3.5, Lymphocytes # (Auto) 1.5, Monocytes # (Auto) 0.4, Eosinophils # (Auto) 0.1, Basophils # (Auto) 0.0, Sodium Level 138, Potassium Level 4.6, Chloride Level 110H, Carbon Dioxide Level 20L, Anion Gap 8, Blood Urea Nitrogen 16, Creatinine 1.04, Estimat Glomerular Filtration Rate 53, BUN/ Creatinine Ratio 15, Glucose Level 168H, Calcium Level 8.3L 06/09/17 11:32: Glucometer 131H 06/09/17 16:16: Glucometer 169H A/P-Cardiology Assessment/Admission Diagnosis Near syncope likely d/t postural hypotension d/t intravascular vol depletion Echo 06/09/17: LVEF 55-60%, trivial AI, mild to mod TR, PASP 35-40 mmHg CAD with a h/o CABG in 2004. Cardiac cath of 02-24-17: Severe jamul coronary artery disease consisting of 70% ostial stenosis of the left main coronary artery, 99% to 100% stenosis of the mid left anterior descending artery, occlusion of the proximal left circumflex artery and severe mid vessel stenosis of the right coronary artery. The severe mid vessel stenosis of the right coronary artery was treated with Alpine Xience 3.0 x 30 mm stent, which reduced the stenosis to 0% residual. The right coronary artery also has 50% ostial stenosis. Patent aortocoronary graft to an obtuse marginal artery, but the obtuse marginal artery, distal to the stent, has an 80% stenosis and is a relatively small caliber vessel. Patent left internal mammary artery graft to the mid left anterior descending artery, but the left anterior descending artery is of a small caliber and is occluded in its distal portion. Elevated left ventricular end-diastolic pressure. Cardiac cath of 03/24/17: successful stenting (2.25x12 Alp Xience) of an OM distal to SVG insertion Small groin hematoma on groin u/s of 04/30/17 w/o evidence of pseudoaneurysm or AV fistula Abnormal stress test. MPI of 02/03/17: small to mod anteroseptal ischemia, no RWMA, LVEF 62% Syncope in August 2013 that was due to postural hypotension due to dehydration DM II H/o CKD, stage 2-3 Hypertension H/o ischemic cardiomyopathy but most recent echo of June 2015 is reported to have shown LVEF 55-60% and mild MR & TR; and PASP of 30-35 mmHg Pacemaker/defib implantation in Apr 2010, functioning normally on interrogation carried out in Feb 2017 CAD with a h/o CABG in 2004 Abnormal ECG. ECG on 08/20/16 shows paced atrial rhythm, jamul vent rhythm with diffuse repol abnormality (unchanged from previous ECG) Chronically abnormal ECG Carotid arterial disease with h/o R CEA by Dr Rosales in the , according to the patient. Carotid u/s of June 2015: mild bilat plaque of 0-40% Intermittent non-compliance with medical instructions HLP - followed by her PCP Hyperthyroidism per lab of June 2014 - followed by her PCP H/o emilie in the . She has had some speech impairment since then. Has recovered from R-sided weakness Bilateral leg discomfort - segmental pressures of November 2016 is non- diagnostic d/t noncompressibility of the leg vessels. Waveforms however, appear to be good H/o schizophrenia Discussion and Recomendations * She feels much improved after iv fluids * Wishes to go home * We discussed her echo results * We have advised outpat f/u Clinical Quality Measures DVT/VTE Risk/Contraindication: Risk Factor Score Per Nursin RFS Level Per Nursing on Admit: 2=Moderate TRAY VARMA MD FAC FAC CCDS Jun 09, 2017 17:14
[2017-06-09] MEDS ORDERED: ATORVASTATIN 40 MG (LIPITOR) TABLET PO SCH (21:00)
[2017-06-09] MEDS ORDERED: ASPIRIN E.C. 81 MG (ECOTRIN) TAB PO SCH (21:00)
[2017-06-10] MEDS ORDERED: DIGOXIN 0.125 MG (LANOXIN) TAB PO SCH (09:00)
== END 2017-06-09 14:59 | disposition home or self-care (01) ==
LOC: EDUNIT# 16:17 → ER 16:19 → 4TH 21:42 → UNDOADMOB 21:42 → 4TH 22:30 → UNDODISOB 06-09 16:44
PROVIDERS: ADMIT Family Medicine; ATTEND Family Medicine
DX: E86.0 Dehydration (principal); R55 Syncope and collapse; E11.9 Type 2 diabetes mellitus without complications; Z79.4 Long term (current) use of insulin; I25.10 Atherosclerotic heart disease of native coronary artery without angina pectoris; E78.00 Pure hypercholesterolemia, unspecified; Z95.1 Presence of aortocoronary bypass graft; Z95.810 Presence of automatic (implantable) cardiac defibrillator; Z95.2 Presence of prosthetic heart valve; Z79.899 Other long term (current) drug therapy; I12.9 Hypertensive chronic kidney disease with stage 1 through stage 4 chronic kidney disease, or unspecified chronic kidney disease; N18.3 Chronic kidney disease, stage 3 (moderate); I65.23 Occlusion and stenosis of bilateral carotid arteries; E78.5 Hyperlipidemia, unspecified; E05.90 Thyrotoxicosis, unspecified without thyrotoxic crisis or storm; Z91.19 Patient's noncompliance with other medical treatment and regimen; F20.9 Schizophrenia, unspecified; M79.604 Pain in right leg; M79.605 Pain in left leg; Z86.73 Personal history of transient ischemic attack (TIA), and cerebral infarction without residual deficits; F41.9 Anxiety disorder, unspecified; F32.9 Major depressive disorder, single episode, unspecified
CPT/HCPCS: 36415; 71046; 80048; 80053; 80162; 80306; 81000; 82962; 83735; 84484; 85025; 86141; 93005; 93306; 96361; 96374

== ENCOUNTER 2018-07-16 07:50 | Emergency (ER) | payer SELFPAY ==
[~2018-07-16] VITALS: Ht 162.6 cm; Wt 76.2 kg
[~2018-07-16 07:50] MED LIST changes: +ACET-2469 PO; +ATOR40TA70 PO; +CANE1EAC26 MC; +CLOP75TA69 PO; +INSU100I14 SC; +METF-397 PO; -METF500T4 PO
[2018-07-16] MEDS: NITROGLYCERIN 0.4 MG SL TABS BTL 25'S SL PRN ×2 (08:09→10:12)
--- NOTE | 2018-07-16 08:13 | ED Chest Pain ---
General Stated Complaint: NAUSEA;CHEST PAIN;ABD PAIN;DIZZINESS Source: patient, spouse Exam Limitations: no limitations History of Present Illness Date Seen by Provider: July 16, 2018 Time Seen by Provider: 07:50 Initial Comments Patient presents to ER by private conveyance with chief complaint of chest pain since sometime last night with dizziness nausea vomiting and epigastric pain. She says this started out in her epigastric region and radiated to her left chest and into her left back. She does have a history of coronary disease with stents and a 2 or 3 vessel coronary artery bypass grafts. She used to be seen by Dr. Briones but she says now she follows with Dr. Jo. She is still having some nausea and her chest since never gone away. She rates it as a 5 out of 10. She is not endorsing any shortness of breath or history of lung disease. She does not smoke but she does have diabetes on insulin and as well as high blood pressure, hypercholesterolemia. She does not take aspirin or any blood thinners. She has Plavix prescribed but she did not included in her medicines this morning that she brought with her. She has not taken any aspirin today nor nitroglycerin. Historically she's had her gallbladder and appendix out as well as hysterectomy. Allergies and Home Medications Allergies Coded Allergies: Bleach (Sodium Hypochlorite) (Verified Allergy, Unknown, 09/25/16) corn (Unverified Allergy, Unknown, 02/07/10) perfume (Verified Allergy, Unknown, 09/25/16) Home Medications Acetaminophen 500 Mg Tablet, 1,000 MG PO Q6H PRN for PAIN-MILD, (Reported) TAKES 2 (500 MG) TABLETS Acetaminophen/Diphenhydramine 1 Each Tablet, 2 TAB PO HS, (Reported) Aspirin 81 Mg Tablet.dr, 81 MG PO BID, (Reported) Atorvastatin Calcium 40 Mg Tablet, 40 MG PO HS, (Reported) Carvedilol 12.5 Mg Tablet, 12.5 MG PO BID, (Reported) Clopidogrel Bisulfate 75 Mg Tablet, 75 MG PO DAILY, (Reported) Digoxin 125 Mcg Tablet, 125 MCG PO DAILY, (Reported) Diphenhydramine HCl 25 Mg Capsule, 25 MG PO HS PRN for ALLERGIES, (Reported) Enalapril Maleate 20 Mg Tablet, 20 MG PO HS, (Reported) Fish Oil/Dha/Epa 1 Each Capsule, 1,200 MG PO DAILY, (Reported) Insulin Aspart 300 Units/3 Ml Solution, 10 UNITS SC AC, (Reported) Insulin Determir 1,000 Units/10 Ml Soln, 10 UNITS SC BID, (Reported) Loperamide HCl 2 Mg Tablet, PO UD PRN for DIARRHEA, (Reported) Lurasidone HCl 80 Mg Tablet, 80 MG PO HS, (Reported) Multivitamin 1 Each Tablet, 1 TAB PO DAILY, (Reported) Patient Home Medication List Home Medication List Reviewed: Yes Review of Systems Review of Systems Constitutional: No chills, No diaphoresis EENTM: No Blurred Vision, No Double Vision Respiratory: Denies Cough, Denies Shortness of Air Cardiovascular: See HPI, Chest Pain; Denies Edema, Denies Lightheadedness Gastrointestinal: Abdominal Pain (epigastric); Denies Constipated, Denies Diarrhea; Nausea; Denies Poor Fluid Intake, Denies Vomiting Genitourinary: Denies Burning, Denies Discharge Musculoskeletal: No back pain, No joint pain Past Caihnxm-Pabate-Ybqmck Hx Patient Social History Alcohol Use: Denies Use Recreational Drug Use: No Smoking Status: Never a Smoker 2nd Hand Smoke Exposure: No Recent Foreign Travel: No Contact w/Someone Who Travel: No Recent Hopitalizations: No Immunizations Up To Date Tetanus Booster (TDap): Unknown PED Vaccines UTD: No Date of Pneumonia Vaccine: Apr 09, 2010 Seasonal Allergies Seasonal Allergies: No Past Medical History Surgeries: Yes (right carotid endarterectomy, colonoscopy, valve replacement) CABG, Hysterectomy, Pacemaker Respiratory: No Currently Using CPAP: No Currently Using BIPAP: No Cardiac: Yes (has pacemaker/defibrillator, DOUBLE BYPASS) Coronary Artery Disease, High Cholesterol, Irregular Heartbeat Neurological: Yes Stroke Reproductive Disorders: No 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[employer] History: Hysterectomy Genitourinary: Yes UTI-Chronic Gastrointestinal: Yes Gall Bladder Disease Musculoskeletal: Yes Arthritis Endocrine: Yes Diabetes, Insulin dep HEENT: Yes Cataract, Macular Degeneration Loss of Vision: Denies Hearing Impairment: Denies Cancer: No Psychosocial: Yes Anxiety, Schizophrenia, Depression Integumentary: No Blood Disorders: No Adverse Reaction/Blood Tranf: No Family Medical History Family history: Diabetes mellitus 19 MOTHER Family history: Hypertension 19 FATHER 19 MOTHER Psychotic disorder G8 BROTHER (MENTAL HEALTH PROBLEMS) No Pertinent Family Hx Physical Exam Vital Signs Vital Signs - First Documented 07/16/18 07:52 Pulse 70 Resp 16 B/P (MAP) 215/113 (147) Pulse Ox 98 O2 Delivery Room Air Capillary Refill : Height, Weight, BMI Height: 5'4.00" Weight: 170lbs. 9.0oz. [id number]; 29.3 BMI Method:Stated General Appearance: WD/WN, Anxious, Mild Distress HEENT: PERRL/EOMI, Normal ENT Inspection, Pharynx Normal, Moist Mucous Membranes Neck: Full Range of Motion, Normal Inspection Respiratory: Chest Non Tender, Lungs Clear, Normal Breath Sounds, No Accessory Muscle Use, No Respiratory Distress Cardiovascular: Regular Rate, Rhythm, No Edema, No JVD, Normal Peripheral Pulses Gastrointestinal: Normal Bowel Sounds, Soft, Tenderness (epigastric and right upper quadrant.) Extremity: Normal Capillary Refill, Normal Inspection, Normal Range of Motion, Non Tender, No Calf Tenderness, No Pedal Edema Neurologic/Psychiatric: Alert, Oriented x3, No Motor/Sensory Deficits Skin: Normal Color, Warm/Dry Progress/Results/Core Measures Results/Orders Lab Results Laboratory Tests Test 07/16/18 08:05 07/16/18 10:07 Range/Units White Blood Count 6.7 4.3-11.0 10^3/uL Red Blood Count 4.49 4.35-5.85 10^6/uL Hemoglobin 13.4 11.5-16.0 G/DL Hematocrit 40 35-52 % Mean Corpuscular Volume 89 80-99 FL Mean Corpuscular Hemoglobin 30 25-34 PG Mean Corpuscular Hemoglobin Concent 34 32-36 G/DL Red Cell Distribution Width 13.4 10.0-14.5 % Platelet Count 157 130-400 10^3/uL Mean Platelet Volume 9.7 7.4-10.4 FL Neutrophils (%) (Auto) 73 42-75 % Lymphocytes (%) (Auto) 18 12-44 % Monocytes (%) (Auto) 7 0-12 % Eosinophils (%) (Auto) 3 0-10 % Basophils (%) (Auto) 0 0-10 % Neutrophils # (Auto) 4.9 1.8-7.8 X 10^3 Lymphocytes # (Auto) 1.2 1.0-4.0 X 10^3 Monocytes # (Auto) 0.5 0.0-1.0 X 10^3 Eosinophils # (Auto) 0.2 0.0-0.3 10^3/uL Basophils # (Auto) 0.0 0.0-0.1 10^3/uL Prothrombin Time 13.2 12.2-14.7 SEC INR Comment 1.0 0.8-1.4 Activated Partial Thromboplast Time 28 24-35 SEC Sodium Level 140 135-145 MMOL/L Potassium Level 5.1 H 3.6-5.0 MMOL/L Chloride Level 108 H 98-107 MMOL/L Carbon Dioxide Level 21 21-32 MMOL/L Anion Gap 11 5-14 MMOL/L Blood Urea Nitrogen 22 H 7-18 MG/DL Creatinine 1.26 0.60-1.30 MG/DL Estimat Glomerular Filtration Rate 42 BUN/Creatinine Ratio 17 Glucose Level 124 H 70-105 MG/DL Calcium Level 9.6 8.5-10.1 MG/DL Corrected Calcium 9.6 8.5-10.1 MG/DL Magnesium Level 1.6 L 1.8-2.4 MG/DL Total Bilirubin 0.5 0.1-1.0 MG/DL Aspartate Amino Transf (AST/SGOT) 20 5-34 U/L Alanine Aminotransferase (ALT/SGPT) 24 0-55 U/L Alkaline Phosphatase 138 H 40-136 U/L Myoglobin 80.0 10.0-92.0 NG/ML Troponin I < 0.028 < 0.028 <0.028 NG/ML B-Type Natriuretic Peptide 77.1 <100.0 PG/ML Total Protein 7.2 6.4-8.2 GM/DL Albumin 4.0 3.2-4.5 GM/DL Lipase 20 8-78 U/L My Orders Orders - STEVEN VILLELA Continuous Ekg Monitoring (07/16/18 07:52) Ekg Tracing (07/16/18 07:52) Cbc With Automated Diff (07/16/18 08:02) Magnesium (07/16/18 08:02) Chest 1 View, Ap/Pa Only (07/16/18 08:02) Cardiac Profile 1 (07/16/18 08:02) Comprehensive Metabolic Panel (07/16/18 08:02) Myoglobin Serum (07/16/18 08:02) Protime With Inr (07/16/18 08:02) Partial Thromboplastin Time (07/16/18 08:02) O2 (07/16/18 08:02) Lipid Panel (07/17/18 06:00) Ed Iv/Invasive Line Start (07/16/18 08:02) Lipase (07/16/18 08:02) BNP (07/16/18 08:02) Nitroglycerin 0.4 Mg Btl 25's (Nitrostat (07/16/18 08:15) Aspirin Chewable Tablet (Baby Aspirin Ch (07/16/18 08:15) Ondansetron Injection (Zofran Injectio (07/16/18 08:15) Lidocaine 2% Viscous 15 Ml (Xylocaine Vi (07/16/18 10:00) Famotidine Tablet (Pepcid Tablet) (07/16/18 09:51) Antacid Suspension (Mylanta Suspension (07/16/18 10:00) Troponin I (07/16/18 10:06) Medications Given in ED Current Medications Medications Dose Ordered Sig/Roxana Route Start Time Stop Time Status Last Admin Dose Admin Al Hydrox/Mg Hydrox/Simethicone 30 ml ONCE ONCE PO 07/16/18 10:00 07/16/18 10:01 DC 07/16/18 10:00 30 ML Aspirin 324 mg ONCE ONCE PO 07/16/18 08:15 07/16/18 08:16 DC 07/16/18 08:08 324 MG Lidocaine HCl 15 ml ONCE ONCE PO 07/16/18 10:00 07/16/18 10:01 DC 07/16/18 10:00 15 ML Nitroglycerin 0.4 mg UD PRN SL 07/16/18 08:15 07/16/18 10:12 0.4 MG Ondansetron HCl 4 mg ONCE ONCE IVP 07/16/18 08:15 07/16/18 08:16 DC 07/16/18 08:08 4 MG Vital Signs/I&O 07/16/18 07/16/18 07:52 07:52 Pulse 70 Resp 16 B/P (MAP) 215/113 (147) Pulse Ox 98 O2 Delivery Room Air Room Air Progress Progress Note #1: Time: 08:12 Progress Note We'll start by giving her 324 mg of aspirin and nitroglycerin. We'll obtain chest x-ray labs. With her strong coronary history if this is a heart attack we would expect to see a troponin elevated at since it started sometime yesterday evening. We'll give her Zofran for her nausea. Her blood pressure is significantly elevated at 229/107 so we'll see what the nitroglycerin does. She states she has not taken any of her medicine this morning. Cardiac cath of 02-24-17: Severe [place] coronary artery disease consisting of 70% ostial stenosis of the left main coronary artery, 99% to 100% stenosis of the mid left anterior descending artery, occlusion of the proximal left circumflex artery and severe mid vessel stenosis of the right coronary artery. The severe mid vessel stenosis of the right coronary artery was treated with Alpine Xience 3.0 x 30 mm stent, which reduced the stenosis to 0% residual. The right coronary artery also has 50% ostial stenosis. Patent aortocoronary graft to an obtuse marginal artery, but the obtuse marginal artery, distal to the stent, has an 80% stenosis and is a relatively small caliber vessel. Patent left internal mammary artery graft to the mid left anterior descending artery, but the left anterior descending artery is of a small caliber and is occluded in its distal portion. Elevated left ventricular end-diastolic pressure. Cardiac cath of 03/24/17: successful stenting (2.25x12 Alp Xience) of an OM distal to SVG insertion. CTD stage II to 3 Echo June 2015 LVEF 55-60%. CABG 2004. Carotid endarterectomy by Dr. Gatica in the with a ultrasound of the carotids 2015 showing mild bilateral plaque less than 40%. 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 History of schizophrenia ED ACS 12 points lower risk.If the patient also has: (1) EKG without new ischemic changes and (2) negative initial and 2-hour troponins, then this patient is safe for discharge to early outpatient follow-up investigation (or proceed to earlier inpatient testing). If EKG with ischemic changes or positive troponin, they are not low risk and require normal risk stratification. Progress Note #2: Time: 09:52 Progress Note The patient received 1 dose of nitroglycerin which significantly improve. Blood pressure. It slowly Back up to 186/96. She says her chest pain went away and her nausea is gone however still having a little achy cramp in her epigastric region. We are going to give her a GI cocktail to see if that helps. Initial ECG Impression Date: July 16, 2018 Initial ECG Impression Time: 08:00 Initial ECG Rate: 70 Initial ECG Rhythm: Normal Sinus Initial ECG Intervals: Normal Initial ECG Impression: Nonspecific Changes Comment Atrial rhythm with ventricular hypertrophy but no ST elevation or depression. There is respiratory artifact noted. May be one block or less of depression in lead 2 but nothing seen in the concurrent leads. Diagnostic Imaging Diagonstic Imaging: Xray Plain Films/CT/US/NM/MRI: chest (1v) Comments [facility] [place], [place] NAME: REY HEARN [facility] REC#: [id number] PT STATUS: REG ER : 1950 PHYSICIAN: STEVEN VILLELA MD ADMIT DATE: 07/16/18/ER Draft Date of Exam:07/16/18 CHEST 1 VIEW, AP/PA ONLY Indication: Dizziness and chest pain. Time of exam: 8:20 AM Correlation is made with a prior study from 06/08/2017. Changes of median sternotomy are noted. Cardiac defibrillator remains in place. Lungs appear to be clear. No infiltrate or failure is seen. No effusion or pneumothorax. Impression: Stable chest. No acute cardiopulmonary process is detected. Dictated on workstation # [id number] Dict: 07/16/18829 Trans: 07/16/18830 [facility] [id number] Interpreted by: SULY MENDOZA MD Electronically signed by: Reviewed: Reviewed by Me Consults : Consulting Physician: Ramirez YANG MD Consults Notes He would like to do a delta troponin in the ER. He like to see the patient before she leaves. After examining the patient he is okay with her going home and following up in the clinic. Departure Impression Primary Impression: Chest pain Qualified Codes: R07.9 - Chest pain, unspecified Additional Impression: Gastroesophageal reflux disease Qualified Codes: K21.9 - Gastro-esophageal reflux disease without esophagitis Disposition: 01 HOME, SELF-CARE Condition: Improved Departure-Patient Inst. Decision time for Depature: 12:13 Referrals: BOONE IRAHETA DO (PCP) Primary Care Physician WOOD CALDERON (Family) Primary Care Physician TRAY JO MD FACP FACC CCDS Patient Instructions: Chest Pain That Is Not Caused by the Heart (DC) Add. Discharge Instructions: Please follow-up with Dr. Jo next week by calling his clinic for an appointment. Follow up with primary care as needed. STEVEN VILLELA July 16, 2018 08:13
[2018-07-16] MEDS ORDERED: ASPIRIN 81 MG CHEW (CHILDREN'S ASA) PO ONE (08:15)
[2018-07-16] MEDS ORDERED: ONDANSETRON 4 MG/2 ML (SDV) Z0FRAN IVP ONE (08:15)
[2018-07-16 08:16] LABS: BASOPHILS % (AUTO) 0 % (0-10); EOSINOPHILS # (AUTO) 0.2 10^3/uL (0.0-0.3); EOSINOPHILS % (AUTO) 3 % (0-10); HEMATOCRIT 40 % (35-52); HEMOGLOBIN 13.4 G/DL (11.5-16.0); LYMPHOCYTES # (AUTO) 1.2 X 10^3 (1.0-4.0); LYMPHOCYTES % (AUTO) 18 % (12-44); MEAN CORPUSCULAR HEMOGLOBIN 30 PG (25-34); MEAN CORPUSCULAR HGB CONC 34 G/DL (32-36); MEAN CORPUSCULAR VOLUME 89 FL (80-99); MEAN PLATELET VOLUME 9.7 FL (7.4-10.4); MONOCYTES # (AUTO) 0.5 X 10^3 (0.0-1.0); MONOCYTES % (AUTO) 7 % (0-12); NEUTROPHILS # (AUTO) 4.9 X 10^3 (1.8-7.8); NEUTROPHILS % (AUTO) 73 % (42-75); PLATELET COUNT 157 10^3/uL (130-400); RED CELL DISTRIBUTION WIDTH 13.4 % (10.0-14.5); WHITE BLOOD COUNT 6.7 10^3/uL (4.3-11.0)
[2018-07-16 08:31] LABS: PROTHROMBIN TIME PATIENT 13.2 SEC (12.2-14.7)
--- NOTE | 2018-07-16 08:32 | Diagnostic Imaging Report ---
Indication: Dizziness and chest pain. Time of exam: 8:20 AM Correlation is made with a prior study from 06/08/2017. Changes of median sternotomy are noted. Cardiac defibrillator remains in place. Lungs appear to be clear. No infiltrate or failure is seen. No effusion or pneumothorax. Impression: Stable chest. No acute cardiopulmonary process is detected. Dictated by: Dictated on workstation # [id number]
[2018-07-16 08:33] LABS: ALANINE AMINOTRANSFERASE 24 U/L (0-55); ALKALINE PHOSPHATASE 138 U/L (40-136); BILIRUBIN,TOTAL 0.5 MG/DL (0.1-1.0); BUN/CREATININE RATIO 17; CALCIUM 9.6 MG/DL (8.5-10.1); CARBON DIOXIDE 21 MMOL/L (21-32); CHLORIDE 108 MMOL/L (98-107); CREATININE SERUM 1.26 MG/DL (0.60-1.30); GFR ESTIMATED 42; GLUCOSE 124 MG/DL (70-105); LIPASE 20 U/L (8-78); MAGNESIUM 1.6 MG/DL (1.8-2.4); POTASSIUM 5.1 MMOL/L (3.6-5.0); SODIUM 140 MMOL/L (135-145); TOTAL PROTEIN 7.2 GM/DL (6.4-8.2)
[2018-07-16] MEDS ORDERED: FAMOTIDINE 20 MG (PEPCID) TABLET PO STA (09:51)
[2018-07-16] MEDS ORDERED: ANTACID SUSP 30 ML UDC (MYLANTA) PO ONE (10:00)
[2018-07-16] MEDS ORDERED: LIDOCAINE 2% VISCOUS 15 ML UDC PO ONE (10:00)
--- NOTE | 2018-07-16 10:15 | NUR ---
PT GIVEN HOME DOSE OF COREG 12.5 MG AT THIS TIME. PER DR LLAMAS INSTRUCTION.
[2018-07-16 12:22] VITALS: BP 161/84
--- NOTE | 2018-07-16 12:59 | Consultation-Cardiology ---
HPI-Cardiology Cardiology Consultation: Date of Consultation 07/16/18 Date of Admission Attending Physician Admitting Physician Anastasia King DO Consulting Physician Ramirez MUSTAFA MD HPI: Time Seen by a Provider: 11:00 Chief Complaint: Chest pain/epigastric pain. This is a 67-year-old lady who is a patient of Dr. Jo. She has history of PCI, CABG, permanent pacemaker. She presents to the hospital with 2 very brief episodes of chest pain/epigastric pain. Her chest pain episode was for 5 minutes. It was in the lower chest upper abdomen. No radiation. No relieving or exacerbating factors. Mild to moderate intensity. Not similar to her previous pain. Review of Systems-Cardiology Review of Systems Constitutional: As described under HPI; No As described under HPI, No no symptoms reported, No chills, No fever, No lightheadedness Eyes: No As described under HPI, No no symptoms reported, No blindness, No blurred vision, No contact lenses, No drainage, No decreased acuity, No foreign body sensation, No pain, No vision change Ears/Nose/Throat: No As described under HPI, No no symptoms reported, No chronic hearing loss, No ear discharge, No ear pain, No nasal drainage, No ulcerations Respiratory: No no symptoms reported; As described under HPI; No As described under HPI, No cough, No orthopnea, No shortness of breath, No SOB with excertion Cardiovascular: No no symptoms reported; As described under HPI; No As described under HPI; chest pain; No edema, No irregular heart rate, No lightheadedness, No palpitations Gastrointestinal: No no symptoms reported, No As described under HPI, No abdomen distended; abdominal pain; No blood streaked bowels, No constipation, No diarrhea, No nausea, No vomiting, No stool coloration changes Genitourinary: No As described under HPI, No burning, No dysuria, No discharge , No frequency, No flank pain, No hematuria, No urgency : Yes : No Skin: No rash, No skin related problems, No ulcerations Psychiatric/Neurological: No anxiety, No depression, No seizure, No focal weakness, No syncope Hematologic: No bleeding abnormalities UBH-[id number]-Zuahkd Hx Patient Social History Alcohol Use: Denies Use Recreational Drug Use: No Smoking Status: Never a Smoker 2nd Hand Smoke Exposure: No Recent Foreign Travel: No Recent Infectious Disease Expo: No Hospitalization with Isolation: Denies Immunizations Up To Date Tetanus Booster (TDap): Unknown Date of Pneumonia Vaccine: Apr 09, 2010 Past Medical History PMH As described under Assessment. Family Medical History Family Medical History: She reports her father and mother both had HTN. No report of premature CAD or SCD. Family History: Family history: Diabetes mellitus 19 MOTHER Family history: Hypertension 19 FATHER 19 MOTHER Psychotic disorder G8 BROTHER (MENTAL HEALTH PROBLEMS) Allergies and Home Medications Allergies Coded Allergies: Bleach (Sodium Hypochlorite) (Verified Allergy, Unknown, 09/25/16) corn (Unverified Allergy, Unknown, 02/07/10) perfume (Verified Allergy, Unknown, 09/25/16) Home Medications Acetaminophen 500 Mg Tablet, 1,000 MG PO Q6H PRN for PAIN-MILD, (Reported) TAKES 2 (500 MG) TABLETS Acetaminophen/Diphenhydramine 1 Each Tablet, 2 TAB PO HS, (Reported) Aspirin 81 Mg Tablet.dr, 81 MG PO BID, (Reported) Atorvastatin Calcium 40 Mg Tablet, 40 MG PO HS, (Reported) Carvedilol 12.5 Mg Tablet, 12.5 MG PO BID, (Reported) Clopidogrel Bisulfate 75 Mg Tablet, 75 MG PO DAILY, (Reported) Digoxin 125 Mcg Tablet, 125 MCG PO DAILY, (Reported) Diphenhydramine HCl 25 Mg Capsule, 25 MG PO HS PRN for ALLERGIES, (Reported) Enalapril Maleate 20 Mg Tablet, 20 MG PO HS, (Reported) Fish Oil/Dha/Epa 1 Each Capsule, 1,200 MG PO DAILY, (Reported) Insulin Aspart 300 Units/3 Ml Solution, 10 UNITS SC AC, (Reported) Insulin Determir 1,000 Units/10 Ml Soln, 10 UNITS SC BID, (Reported) Loperamide HCl 2 Mg Tablet, PO UD PRN for DIARRHEA, (Reported) Lurasidone HCl 80 Mg Tablet, 80 MG PO HS, (Reported) Multivitamin 1 Each Tablet, 1 TAB PO DAILY, (Reported) Patient Home Medication List Home Medication List Reviewed: Yes Physical Exam-Cardiology Physical Exam Vital Signs/I&O 07/16/18 07/16/18 07/16/18 07:52 07:52 12:22 Pulse 70 70 Resp 16 14 B/P (MAP) 215/113 (147) 161/84 (109) Pulse Ox 98 100 O2 Delivery Room Air Room Air Room Air Capillary Refill : Less Than 3 Seconds Constitutional: appears stated age, AAO x 3; No apparent distress; well- developed, well-nourished HEENT: PERRL; No normal ENT inspection, No TMs normal, No pharynx normal, No scleral icterus (R), No scleral icterus (L), No pale conjunctivae (R), No pale conjunctivae (L), No photophobia, No TM abnormal (R), No TM abnormal (L), No pharyngeal erythema, No tonsillar exudate, No other, No discharge, No EOMI; hearing is well preserved; No hard of hearing; oral hygience is good; No ulceration, No xanthelasmas are seen Neck: No non-tender, No full range of motion, No supple, No normal inspection, No carotid bruit, No limited range of motion, No lymphadenopathy (R), No lymphadenopathy (L), No tender lateral, No tender midline, No thyromegaly, No other; carotid pulses are 2 + bilaterally; No with good upstrokes Respiratory: No accessory muscle use, No respiratory distress, No chest tender , No chest expansion is symmetric; chest is bilaterally symmetric; No lungs clear to percussion; lungs clear to auscultation; No crackles, No rhonchi, No rales, No stridor, No wheezing, No pleural rub, No other Cardiovascular: regular rate-rhythm; No irregularly irregular, No extra beats, No parasternal heave is noted, No JVD, No edema, No bradycardia, No tachycardia , No point of maximal impulse, No cardiac thrills are palpable; S1 and S2; No gallop/S3, No gallop/S4, No diastolic murmur, No systolic murmur, No friction rub, No click, No other Gastrointestinal: No tender, No soft, No round, No distended, No pulsatile mass , No organomegaly, No guarding, No rebound, No tenderness, No hernia, No mass, No audible bowel sounds, No abnormal bowel sounds, No abdominal bruits, No spleenomegaly, No other Rectal: deferred Extremities: No normal range of motion, No non-tender, No normal inspection, No pedal edema, No calf tenderness, No normal capillary refill, No pelvis stable , No calf tenderness, No inflammation, No pedal edema, No slow capillary refill , No swelling, No other, No abrasion, No clubbing, No cyanosis, No ecchymosis, No laceration, No no lower extremity edema bilateral, No significant edema, No tenderness, No wound Neurologic/Psychiatric: no motor/sensory deficits, alert, normal mood/affect, oriented x 3, power is 5/5 both on sides Skin: No normal color, No warm/dry, No cyanosis, No cool, No diaphoresis, No damp, No ecchymosis, No jaundice, No mottled, No pallor, No rash, No tattoos/ piercings, No ulcerations, No rash on exposed areas, No ulcerations on exposed areas, No other Data Review Labs Laboratory Tests 07/16/18 08:05: White Blood Count 6.7, Red Blood Count 4.49, Hemoglobin 13.4, Hematocrit 40, Mean Corpuscular Volume 89, Mean Corpuscular Hemoglobin 30, Mean Corpuscular Hemoglobin Concent 34, Red Cell Distribution Width 13.4, Platelet Count 157, Mean Platelet Volume 9.7, Neutrophils (%) (Auto) 73, Lymphocytes (%) (Auto) 18, Monocytes (%) (Auto) 7, Eosinophils (%) (Auto) 3, Basophils (%) (Auto) 0, Neutrophils # (Auto) 4.9, Lymphocytes # (Auto) 1.2, Monocytes # (Auto) 0.5, Eosinophils # (Auto) 0.2, Basophils # (Auto) 0.0, Prothrombin Time 13.2, INR Comment 1.0, Activated Partial Thromboplast Time 28, Sodium Level 140, Potassium Level 5.1H, Chloride Level 108H, Carbon Dioxide Level 21, Anion Gap 11 , Blood Urea Nitrogen 22H, Creatinine 1.26, Estimat Glomerular Filtration Rate 42, BUN/Creatinine Ratio 17, Glucose Level 124H, Calcium Level 9.6, Corrected Calcium 9.6, Magnesium Level 1.6L, Total Bilirubin 0.5, Aspartate Amino Transf ( AST/SGOT) 20, Alanine Aminotransferase (ALT/SGPT) 24, Alkaline Phosphatase 138H , Myoglobin 80.0, Troponin I < 0.028, B-Type Natriuretic Peptide 77.1, Total Protein 7.2, Albumin 4.0, Lipase 20 07/16/18 10:07: Troponin I < 0.028 ECG Impression ECG Comment Atrial paced rhythm. Ventricular sensed rhythm. Downsloping ST segments seen in the lead 1 and aVL. I compared an EKG from June 2017 which showed similar downsloping ST segments. A/P-Cardiology Assessment/Admission Diagnosis Brief episode of chest pain, CABG, CAD, Permanent pacemaker. Epigastric discomfort Plan Brief episode of chest pain, negative serial troponin. Negative EKG. Atypical chest pain. Continue aspirin, Plavix. Follow-up with Dr. Jo on Thursday. However the patient was educated that if she has recurrent chest pain she should seek immediate medical attention. CAD/CABG, continue aspirin, Plavix, high-dose Lipitor. Permanent pacemaker, no active issues. Defer further follow-up to Dr. Jo. Thank you for your consultation. Please call me if you have any questions. Keeley Mustafa MD, FACP, FACC, FSCAI, FHRS, CCDS Interventional Cardiology Cardiac Electrophysiology Vascular Medicine and Endovascular Interventions Clinical Quality Measures AMI/AHF: ASA po Prior to arrival: Ramirez Morse MD July 16, 2018 12:59
== END 2018-07-16 12:22 | disposition home or self-care (01) ==
LOC: EDUNIT# 07:50 → ER 07:51
DX: R07.9 Chest pain, unspecified (principal); K21.9 Gastro-esophageal reflux disease without esophagitis; I25.10 Atherosclerotic heart disease of native coronary artery without angina pectoris; E11.9 Type 2 diabetes mellitus without complications; E78.00 Pure hypercholesterolemia, unspecified; F41.9 Anxiety disorder, unspecified; F32.9 Major depressive disorder, single episode, unspecified; F20.9 Schizophrenia, unspecified; Z95.5 Presence of coronary angioplasty implant and graft; Z82.49 Family history of ischemic heart disease and other diseases of the circulatory system; Z90.710 Acquired absence of both cervix and uterus; Z90.49 Acquired absence of other specified parts of digestive tract; Z79.82 Long term (current) use of aspirin; Z87.19 Personal history of other diseases of the digestive system; Z95.810 Presence of automatic (implantable) cardiac defibrillator; Z86.73 Personal history of transient ischemic attack (TIA), and cerebral infarction without residual deficits; Z95.2 Presence of prosthetic heart valve; Z95.1 Presence of aortocoronary bypass graft; Z79.4 Long term (current) use of insulin
CPT/HCPCS: 36415; 71045; 80053; 83690; 83735; 83874; 83880; 84484; 85025; 85610; 85730; 93005

== ENCOUNTER 2018-09-05 12:32 | Inpatient (IN) | payer MEDICARE ==
[2018-09-05] VITALS (15 sets, daily range): BP systolic 90–131; BP diastolic 47–106
[~2018-09-05] VITALS: Ht 162.6 cm; Wt 86.6 kg
--- OUTSIDE RECORDS SUMMARY | 2018-09-05 12:38 | XMS REPORT ---
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.10 Active 6999192566011 Problem Chronic idiopathic constipation K59.04 Active 89915553 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 570555758 Problem Constipation K59.00 Active 91060223 Problem Bipolar affective disorder, current episode mixed, current episode severity unspecified F31.60 Active 120505863 Problem Arthritis of back M47.9 Active 53640146 Problem Psychosis, unspecified psychosis type F29 Active 01275139 Problem 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 [address], [place] [address] July, 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 [id number] [place] [address] May, [facility] [address], [place] [address] Apr, [place] [id number] [place] [address] Apr, Diabetes E11.9 [place] [address] [address] Apr, Bipolar affective disorder, current episode mixed, current episode severity unspecified F31.60 [place] [address] [address] Apr, [facility] [address] [address] Mar, [place] [address] [address] Mar, Psychosis, unspecified psychosis type F29 and Bipolar affective disorder, current episode mixed, current episode severity unspecified F31.60 [place] [address] [address] Mar, [facility] [address] [address] Mar, Low back pain M54.5 and Arthritis of back M47.9 [place] [address] [address] Mar, [facility] [id number] [place] [address] Feb, Abdominal pain R10.9 and Constipation K59.00 [place] [address] [address] Feb, Vertigo R42 ; 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 [id number] [place] [address] Dec, [place] [address] [address] Dec, 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 [id number] [place] [address] Oct, [place] [id number] [place] [address] Oct, [facility] [id number] [place] [address] Oct, [place] [id number] [place] [address] Sep, [facility] [id number] [place] [address] Aug, Upper respiratory tract infection, unspecified type J06.9 ; Chronic idiopathic constipation K59.04 ; Fluid level behind tympanic membrane of both ears H65.93 [address]9 [facility] [id number] [place] [address] July, Diabetes E11.9 [facility] [address] [address] Jun, Dehydration E86.0 ; Diabetes E11.9 and Hyperglycemia R73.9 [place] [address] [address] Jun, [place] [address] [address] Jun, Vertigo R42 ; Syncope, unspecified syncope type R55 ; Diabetes E11.9 and Hyperglycemia R73.9 [place] [id number] [place] [address] May, Psychosis, unspecified psychosis type F29 and Bipolar affective disorder, current episode mixed, current episode severity unspecified F31.60 [facility] [id number] [place] [address] May, [facility] [id number] [place] [address] May, Diabetes E11.9 [facility] [id number] [place] [id number] Apr, Dental examination Z01.20 and Dental caries K02.9 [place] [id number] [place] [address] Apr, Dental examination Z01.20 and Dental abscess K04.7 [place] [id number] [place] [address] Mar, Psychosis, unspecified psychosis type F29 and Bipolar affective disorder, current episode mixed, current episode severity unspecified F31.60 [facility] [id number] [place] [address] Mar, [facility] [id number] [place] [address] Feb, [facility] [id number] [place] [address] Feb, Left wrist pain M25.532 [facility] [id number] [place] [address] Jan, [place] [id number] [place] [address] Jan, Psychosis, unspecified psychosis type F29 and Bipolar affective disorder, current episode mixed, current episode severity unspecified F31.60 [facility] [id number] [place] [address] Jan, Diabetes E11.9 [facility] [place] [id number] [place] [address] Jan, Left wrist pain M25.532 [place] [id number] [place] [address] Dec, Psychosis, unspecified psychosis type F29 and Bipolar affective disorder, current episode mixed, current episode severity unspecified F31.60 [facility] [id number] [place] [address] Dec, Syncope, unspecified syncope type R55 ; Vertigo R42 ; Diabetes E11.9 ; Psychosis, unspecified psychosis type F29 and Fall, initial encounter W19.XXXA [place] [id number] [place] [address] Dec, Diabetes E11.9 ; Neck pain M54.2 and Vertigo R42 [place] [id number] [place] [address] Nov, [facility] [id number] [place] [address] Nov, [place] [address] [place] [address] Nov, [place] [id number], [place] [address] 06 Nov, [address] [facility] [address], [place] [address] Nov, Diabetes [address].9 [facility] [address], [place] [address] Oct, [facility] [id number] [id number] Oct, [facility] [address], [place] [address] Oct, [facility] [address], [place] [address] Oct, Bipolar affective disorder, current episode mixed, current episode severity unspecified F31.60 [facility] [address] [id number] Sep, [facility] [address], [place] [address] Sep, Bipolar affective disorder, current episode mixed, current episode severity unspecified F31.60 [facility] [address], [place] [address] Sep, Acute maxillary sinusitis, recurrence not specified J01.00 [facility] [id number], [place] [address] Sep, [address] [facility] [id number], [place] [address] July, Diabetes [address].9 [facility] [id number], [place] [address] July, Diabetes E[address].9 [facility] [address], [place] [address] Jun, [facility] [id number], [place] [address] May, Bipolar affective disorder, current episode mixed, current episode severity unspecified F31.60 [facility] [id number] [place] [address] May, Acute non-recurrent maxillary sinusitis J01.00 [facility] [id number] [place] [address] 10 Apr, 2016 Psychosis, unspecified psychosis type F29 and Bipolar affective disorder, current episode mixed, current episode severity unspecified F31.60 [facility] [id number] [place] [address] Apr, Dysuria R30.0 ; Other viral agents as the cause of diseases classified elsewhere B97.89 and Acute upper respiratory infection, unspecified J06.9 [place] [id number] [place] [address] Mar, Diabetes E11.9 ; Urine leukocytes R82.99 and Psychosis, unspecified psychosis type F29 [place] [id number] [place] [address] Mar, Diabetes E11.9 [place] [id number] [place] [address] Feb, [place] [id number] [place] [address] Jan, [place] [id number] [place] [address] Dec, Psychosis, unspecified psychosis type F29 [facility] [id number] [place] [address] Dec, [facility] [id number] [place] [address] Dec, [facility] [id number] [place] [address] Dec, Psychosis, unspecified psychosis type F29 [place] [address] [place] [address] Nov, Schizoaffective disorder, unspecified type F25.9 [facility] [id number] [place] [address] Oct, [facility] [id number] [place] [address] Oct, Conjunctivitis of right eye, unspecified conjunctivitis type H10.9 [facility] [id number] [place] [address] Aug, [facility] [id number] [place] [id number] Jun, Encounter for dental examination Z01.20 [facility] [id number] [place] [address] Jun, Diabetes E11.9 and Bipolar affect, depressed F31.30 [facility] [id number] [place] [address] Jun, Other bipolar disorder F31.89 [facility] [id number] [place] [address] Jun, [facility] [id number] [place] [address] Apr, [facility] [id number] [place] [address] Dec, [facility] [id number] [place] [address] Dec, [facility] [id number] [place] [address] Sep, [facility] [id number] [place] [address] Jun, [facility] [id number] [place] [address] Jun, [facility] [address] [place] [address] Mar, [facility] [address] [id number] [place] [address] Mar, [facility] [place] [facility] [address] [id number] [place] [address] Nov, [facility] [place] [facility] [address] [id number] [place] [address] Nov, [facility] [place] [facility] [address] [id number] [place] [address] Sep, [facility] [place] [facility] [address] [id number] [place] [address] Sep, [facility] [place] [facility] [address] [id number] [place] [address] Sep, [facility] [place] [facility] [address] [id number] [place] [address] Sep, [facility] [place] [facility] [address] [id number] [place] [address] Sep, [facility] [place] [facility] [address] [id number] [place] [address] Aug, [facility] [place] [facility] [address] [id number] [place] [address] Aug, [facility] [place] [facility] [address] [id number] [place] [address] Aug, [facility] [place] [facility] [address] [id number] [place] [address] Aug, [facility] [place] [facility] [address] [id number] [place] [address] Aug, [facility] [place] [facility] [address] [id number] [place] [address] Aug, [facility] [place] [facility] [address] [id number] [place] [address] July, [facility] [place] [facility] [address] [id number] [place] [address] July, [facility] [place] [facility] [address] [id number] [place] [address] Jun, [facility] [place] [facility] [address] [id number] [place] [address] Jun, [facility] [place] [facility] [address] [id number] [place] [address] Jun, [facility] [place] [facility] [address] [id number] [place] [address] Jun, [facility] [place] [facility] [address] [id number] [place] [address] Jun, [facility] [place] [facility] [address] [id number] [place] [address] Jun, [facility] [place] [facility] [address] [id number] [place] [address] Jun, [facility] [place] [facility] [address] [id number] [place] [address] Jun, [facility] [place] [facility] [address] [id number] [place] [address] May, [facility] [place] [facility] [address] [id number] [place] [address] May, [facility] [place] [facility] [address] [id number] [place] [address] May, [facility] [place] [facility] [address] [id number] [place] [address] May, [facility] [place] [facility] [address] [id number] [place] [address] May, [facility] [place] [facility] [address] [id number] [place] [address] May, [facility] [place] [facility] [address] [id number], [place] [address] May, [facility] [address] [id number] [place] [address] May, [facility] [place] [facility] [address] [id number] [place] [address] May, [facility] [place] [facility] [address] [id number] [place] [address] Apr, [facility] [place] [facility] [address] [id number] [place] [address] Apr, [facility] [place] [facility] [address] [id number] [place] [address] Mar, [facility] [place] [facility] [address] [id number] [place] [address] Mar, [facility] [address] [id number] [place] [address] Feb, [facility] [place] [facility] [address] [id number] [place] [address] Feb, [facility] [place] [facility] [address] [id number] [place] [address] Nov, [facility] [place] [facility] [address] [id number] [place] [address] Nov, [facility] [place] [facility] [address] [id number] [place] [address] Oct, [facility] [place] [facility] [address] [id number], [place] [address] Oct, [facility] [place] [facility] [address] [id number] [place] [address] Oct, [facility] [place] [facility] [address] [id number] [place] [address] Oct, [facility] [place] [facility] [address] [id number] [place] [address] Oct, [facility] [place] [facility] [address] [id number] [place] [address] 23 Sep, 2012 [facility] [place] [facility] [address] [id number] [place] [address] Sep, [facility] [place] [facility] [address] [id number] [place] [address] Sep, [facility] [place] [facility] [address] [id number] [place] [address] Sep, [facility] [place] [facility] [address] [id number] [place] [address] Aug, [facility] [place] [facility] [address] [id number] [place] [address] Aug, [facility] [place] [facility] [address] [id number] [place] [address] Aug, [facility] [place] [facility] [address] [id number] [place] [address] Aug, [facility] [place] [facility] [address] [id number] [place] [address] Jun, [facility] [place] [facility] [address] [id number] [place] [address] Jun, [facility] [place] [facility] [address] [id number] [place] [address] Jun, [facility] [place] [facility] [address] [id number] [place] [address] 17 Jun, 2012 [facility] [place] [facility] [address] [id number] [place] [address] 21 May, 2012 [facility] [place] [facility] [address] [id number] [place] [address] 18 May, 2012 [facility] [place] [facility] [address] [id number] [place] [address] 18 May, 2012 [facility] [place] [facility] [address] [id number] [place] [address] 13 May, 2012 [facility] [address] [id number] [place] [address] 11 May, 2012 [facility] [place] [facility] [address] [id number] [place] [address] 04 May, 2012 [facility] [address] [id number] [place] [address] 21 Apr, 2012 [facility] [place] [facility] [address] [id number] [place] [address] 20 Apr, 2012 [facility] [address] [id number] [place] [address] Apr, [facility] [address] [id number] [place] [address] Apr, [facility] [address] [id number] [place] [address] Apr, [facility] [address] [id number] [place] [address] Feb, [facility] [address] [id number] [place] [address] Feb, [facility] [place] [facility] [address] [id number] [place] [address] Feb, [facility] [address] [id number] [place] [address] Feb, [facility] [place] [facility] [address] [id number] [place] [address] Feb, [facility] [place] [facility] [address] [id number] [place] [address] Feb, [facility] [place] [facility] [address] [facility] [id number] [place] [address] Feb, [facility] [place] [facility] [address] [id number] [place] [address] Feb, [facility] [place] [facility] [address] [id number] [place] [address] 14 Feb, 2012 [facility] [address] [id number] [place] [address] 14 Feb, 2012 [facility] [address] [id number] [place] [address] 13 Feb, 2012 [facility] [address] [id number] [place] [address] 13 Feb, 2012 [facility] [address] [id number] [place] [address] 12 Feb, 2012 [facility] [address] [id number] [place] [address] 12 Feb, 2012 [facility] [address] [id number] [place] [address] 12 Feb, 2012 [facility] [address] [id number] [place] [address] 12 Feb, 2012 [facility] [address] [id number] [place] [address] 12 Feb, 2012 [facility] [address] [id number] [place] [address] Feb, [facility] [address] [id number] [place] [address] Feb, [facility] [address] [id number] [place] [address] Feb, [facility] [address] [id number] [place] [address] Feb, [facility] [place] [facility] [address] [id number] [place] [address] Feb, [facility] [address] [id number] [place] [address] Feb, [facility] [address] [id number] [place] [address] Feb, [facility] [place] [facility] [address] [id number] [place] [address] Feb, [facility] [place] [facility] [address] [id number] [place] [address] Feb, [facility] [place] [facility] [address] [id number] [place] [address] Jan, [facility] [place] [facility] [address] [id number] [place] [address] Jan, [facility] [place] [facility] [address] [id number] [place] [address] Dec, [facility] [place] [facility] [address] [id number] [place] [address] Dec, [facility] [place] [facility] [address] [id number] [place] [address] Dec, [facility] [place] [facility] [address] [id number] [place] [address] Dec, [facility] [place] [facility] [address] [id number] [place] [address] Nov, [facility] [place] [facility] [address] [id number] [place] [address] Nov, [facility] [place] [facility] [address] [id number] [place] [address] Nov, [facility] [place] [facility] [address] [id number] [place] [address] Nov, [facility] [place] [facility] [address] [id number] [place] [address] Oct, [facility] [place] [facility] [address] [id number] [place] [address] Oct, [facility] [place] [facility] [address] [id number] [place] [address] Sep, [facility] [place] [facility] [address] [id number] [place] [address] 17 Sep, 2011 [facility] [address] [id number] [place] [address] Sep, [facility] [place] [facility] [address] [id number] [place] [address] Aug, [facility] [place] [facility] [address] [id number] [place] [address] Aug, [facility] [place] [facility] [address] [id number] [place] [address] 14 Aug, 2011 [facility] [place] [facility] [address] [id number] [place] [address] Aug, [facility] [place] [facility] [address] [id number] [place] [address] Aug, [facility] [address] [id number] [place] [address] July, [facility] [place] [facility] [address] [id number] [place] [address] July, [facility] [place] [facility] [address] [id number] [place] [address] July, [facility] [place] [facility] [address] [id number] [place] [address] July, [facility] [place] [facility] [address] [id number] [place] [address] July, [facility] [place] [facility] [address] [id number] [place] [address] Jun, [facility] [place] [facility] [address] [id number] [place] [address] May, [facility] [place] [facility] [address] [id number] [place] [address] 16 Apr, 2011 [facility] [place] [facility] [address] [id number] [place] [address] 13 Apr, 2011 [facility] [place] [facility] [address] [id number] [place] [address] Apr, [facility] [address] [id number] [place] [address] Mar, [facility] [address] [id number] [place] [address] Mar, [facility] [address] [id number] [place] [address] Mar, [facility] [address] [id number] [place] [address] Mar, [facility] [address] [id number] [place] [address] Mar, [facility] [address] [id number] [place] [address] Mar, [facility] [address] [id number] [place] [address] Mar, [facility] [address] [id number] [place] [address] Mar, [facility] [address] [id number] [place] [address] Feb, [facility] [address] [id number] [place] [address] Feb, [facility] [address] [id number] [place] [address] Feb, [facility] [address] [id number] [place] [address] Feb, [facility] [place] [facility] [address] [id number] [place] [address] Feb, [facility] [address] [id number] [place] [address] Jan, [facility] [address] [id number] [place] [address] Jan, [facility] [place] [facility] [address] [id number] [place] [address] Jan, [facility] [place] [facility] [address] [id number] [place] [address] Jan, [facility] [place] [facility] [address] [id number] [place] [address] 14 Dec, 2010 [facility] [place] [facility] [address] [id number] [place] [address] 14 Dec, 2010 [facility] [place] [facility] [address] [id number] [place] [address] Sep, [facility] [place] [facility] [address] [id number] [place] [address] July, [facility] [place] [facility] [address] [id number] [place] [address] Apr, [facility] [place] [facility] [address] [id number] [place] [address] Mar, [facility] [place] [facility] [address] [id number] [place] [address] Feb, [facility] [place] [facility] [address] [id number] [place] [address] Feb, [facility] [place] [facility] [address] [id number] [place] [address] Feb, [facility] [place] [facility] [address] [id number] [place] [address] Feb, [facility] [place] [facility] [address] [id number] [place] [address] 15 Feb, 2010 [facility] [place] [facility] [address] [id number] [place] [address] Feb, [facility] [place] [facility] [address] [id number] [place] [address] Feb, [facility] [place] [facility] [address] [facility] [id number] [place] [address] Dec, [facility] [address] [facility] [id number] [place] [address] Jan, [facility] [address] [facility] [id number] [place] [address] Apr, IMMUNIZATIONS No Known Immunizations SOCIAL HISTORY Never Assessed [place]AS[place] FOR [place] [place] VITAL SIGNS MEDICATIONS Unknown Medications RESULTS No Results PROCEDURES No Known procedures [...] Hospitalization History Hyperglycemia 2012 Hospitalization History [facility] 11/28/2015-12/04/2015 2016 Hospitalization History Schizophrenia 09/26/16 Hospitalization History AMS, UTI, hyponatremia-[facility] 10/21/16 Hospitalization History stent placed 02/02/17 Hospitalization History stent placed 02/2017 Hospitalization History [facility]- Syncope, Dehydration and Hypotension. 06/08/2017
--- OUTSIDE RECORDS SUMMARY | 2018-09-05 12:38 | XMS REPORT ---
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 Active 4262243366072 Problem Chronic idiopathic constipation K59.04 Active 56724633 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 650865012 Problem Constipation K59.00 Active 34225726 Problem Bipolar affective disorder, current episode mixed, current episode severity unspecified F31.60 Active 366725642 Problem Arthritis of back M47.9 Active 90215496 Problem Psychosis, unspecified psychosis type F29 Active 11841058 Problem 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 Active 484567089 Problem Age-related incipient cataract of both eyes H25.093 Active 342038659 Problem Diabetes 1.5, 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 460525556 Problem Essential hypertension I10 Active 70933296 ALLERGIES No Information ENCOUNTERS Encounter Location Date Diagnosis [facility] [address], [place] [address] July, [facility] [id number] [place] [address] Jun, 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 and 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 [facility] [id number] [place] [address] May, [facility] [address], [place] [address] Apr, [place] [id number] [place] [address] Apr, Diabetes E11.9 [place] [address] [address] Apr, Bipolar affective disorder, current episode mixed, current episode severity unspecified F31.60 [place] [address] [address] Apr, [facility] [address] [address] Mar, [place] [address] [address] Mar, Psychosis, unspecified psychosis type F29 and Bipolar affective disorder, current episode mixed, current episode severity unspecified F31.60 [place] [address] [address] Mar, [facility] [address] [address] Mar, Low back pain M54.5 and Arthritis of back M47.9 [place] [address] [address] Mar, [facility] [id number] [place] [address] Feb, Abdominal pain R10.9 and Constipation K59.00 [place] [address] [address] Feb, Vertigo R42 ; 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 ; Hyperglycemia R73.9 and Essential hypertension I10 [place] [address] [address] Jan, [place] [id number] [place] [address] Dec, [place] [address] [address] Dec, [facility] [id number] [place] [address] Dec, Dizziness R42 and Diabetes 1.5, 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 [facility] [id number] [place] [address] Dec, [place] [address] [address] Dec, [facility] [id number] [place] [address] Dec, Psychosis, unspecified psychosis type F29 and Bipolar affective disorder, current episode mixed, current episode severity unspecified F31.60 [place] [id number] [place] [address] Dec, [place] [address] [address] Dec, [place] [id number] [place] [address] Dec, 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 ; 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 and Hyperglycemia R73.9 [facility] [id number] [place] [address] Oct, [place] [id number] [place] [address] Oct, [place] [id number] [place] [address] Oct, [place] [id number] [place] [address] Sep, [facility] [id number] [place] [address] Aug, Upper respiratory tract infection, unspecified type J06.9 ; Chronic idiopathic constipation K59.04 ; Fluid level behind tympanic membrane of both ears H65.93 and Abdominal pain R10.9 [facility] [id number] [place] [address] July, Diabetes E11.9 [facility] [address] [address] Jun, Dehydration E86.0 ; Diabetes E11.9 and Hyperglycemia R73.9 [place] [address] [address] Jun, [place] [address] [address] Jun, Vertigo R42 ; Syncope, unspecified syncope type R55 ; Diabetes E11.9 and Hyperglycemia R73.9 [place] [id number] [place] [address] May, Psychosis, unspecified psychosis type F29 and Bipolar affective disorder, current episode mixed, current episode severity unspecified F31.60 [place] [id number] [place] [address] May, [place] [id number] [place] [address] May, Diabetes E11.9 [facility] [id number] [place] [id number] Apr, Dental examination Z01.20 and Dental caries K02.9 [place] [id number] [place] [address] Apr, Dental examination Z01.20 and Dental abscess K04.7 [place] [id number] [place] [address] Mar, Psychosis, unspecified psychosis type F29 and Bipolar affective disorder, current episode mixed, current episode severity unspecified F31.60 [place] [id number] [place] [address] Mar, [facility] [id number] [place] [address] Feb, [facility] [id number] [place] [address] Feb, Left wrist pain M25.532 [facility] [id number] [place] [address] Jan, [place] [id number] [place] [address] Jan, Psychosis, unspecified psychosis type F29 and Bipolar affective disorder, current episode mixed, current episode severity unspecified F31.60 [place] [id number] [place] [address] Jan, Diabetes E11.9 [facility] [place] [id number] [place] [address] Jan, Left wrist pain M25.532 [place] [id number] [place] [address] Dec, Psychosis, unspecified psychosis type F29 and Bipolar affective disorder, current episode mixed, current episode severity unspecified F31.60 [place] [id number] [place] [address] Dec, Syncope, unspecified syncope type R55 ; Vertigo R42 ; Diabetes E11.9 ; Psychosis, unspecified psychosis type F29 and Fall, initial encounter W19.XXXA [place] [id number] [place] [address] Dec, Diabetes E11.9 ; Neck pain M54.2 and Vertigo R42 [place] [id number] [place] [address] Nov, [facility] [id number] [place] [address] Nov, [place] [address] [place] [address] Nov, [place] [id number] [address] 06 Nov, 2016 Diabetes E11.9 [facility] [address], [place] [address] 05 Nov, 2016 Diabetes E11.9 [facility] [address], [place] [address] Oct, [facility] [id number] [place] [id number] Oct, [facility] [address], [place] [address] Oct, [facility] [address], [place] [address] Oct, Bipolar affective disorder, current episode mixed, current episode severity unspecified F31.60 [facility] [id number] [id number] Sep, [facility] [address], [place] [address] Sep, Acute maxillary sinusitis, recurrence not specified J01.00 [facility] [address], [place] [address] Sep, Bipolar affective disorder, current episode mixed, current episode severity unspecified F31.60 [facility] [address], [place] [address] Sep, Diabetes E11.9 [facility] [address], [place] [address] July, Diabetes E11.9 [facility] [address], [place] [address] July, Diabetes E11.9 [facility] [address], [place] [address] Jun, [facility] [address], [place] [address] May, Bipolar affective disorder, current episode mixed, current episode severity unspecified F31.60 [facility] [id number] [place] [address] May, Acute non-recurrent maxillary sinusitis J01.00 [facility] [id number] [place] [address] 10 Apr, 2016 Psychosis, unspecified psychosis type F29 and Bipolar affective disorder, current episode mixed, current episode severity unspecified F31.60 [facility] [id number] [place] [address] Apr, Dysuria R30.0 ; Other viral agents as the cause of diseases classified elsewhere B97.89 and Acute upper respiratory infection, unspecified J06.9 [place] [id number] [place] [address] Mar, Diabetes E11.9 ; Urine leukocytes R82.99 and Psychosis, unspecified psychosis type F29 [place] [id number] [place] [address] Mar, Diabetes E11.9 [place] [id number] [place] [address] Feb, [place] [id number] [place] [address] Jan, [place] [id number] [place] [address] Dec, Psychosis, unspecified psychosis type F29 [facility] [id number] [place] [address] Dec, [facility] [id number] [place] [address] Dec, [facility] [id number] [place] [address] Dec, Psychosis, unspecified psychosis type F29 [place] [address] [place] [address] Nov, Schizoaffective disorder, unspecified type F25.9 [facility] [id number] [place] [address] Oct, [facility] [id number] [place] [address] Oct, Conjunctivitis of right eye, unspecified conjunctivitis type H10.9 [facility] [id number] [place] [address] Aug, [facility] [id number] [place] [id number] Jun, Encounter for dental examination Z01.20 [facility] [id number] [place] [address] Jun, Diabetes E11.9 and Bipolar affect, depressed F31.30 [facility] [id number] [place] [address] Jun, Other bipolar disorder F31.89 [facility] [id number] [place] [address] Jun, [facility] [id number] [place] [address] Apr, [facility] [id number] [place] [address] Dec, [facility] [id number] [place] [address] Dec, [facility] [id number] [place] [address] Sep, [facility] [id number] [place] [address] Jun, [facility] [id number] [place] [address] Jun, [facility] [address] [place] [address] Mar, [facility] [address] [id number] [place] [address] Mar, [facility] [place] [facility] [address] [id number] [place] [address] Nov, [facility] [place] [facility] [address] [id number] [place] [address] Nov, [facility] [place] [facility] [address] [id number] [place] [address] Sep, [facility] [place] [facility] [address] [id number] [place] [address] Sep, [facility] [place] [facility] [address] [id number] [place] [address] Sep, [facility] [place] [facility] [address] [id number] [place] [address] Sep, [facility] [place] [facility] [address] [id number] [place] [address] Sep, [facility] [place] [facility] [address] [id number] [place] [address] Aug, [facility] [place] [facility] [address] [id number] [place] [address] Aug, [facility] [place] [facility] [address] [id number] [place] [address] Aug, [facility] [place] [facility] [address] [id number] [place] [address] Aug, [facility] [place] [facility] [address] [id number] [place] [address] Aug, [facility] [place] [facility] [address] [id number] [place] [address] Aug, [facility] [place] [facility] [address] [id number] [place] [address] July, [facility] [place] [facility] [address] [id number] [place] [address] July, [facility] [place] [facility] [address] [id number] [place] [address] Jun, [facility] [place] [facility] [address] [id number] [place] [address] Jun, [facility] [place] [facility] [address] [id number] [place] [address] Jun, [facility] [place] [facility] [address] [id number] [place] [address] Jun, [facility] [place] [facility] [address] [id number] [place] [address] Jun, [facility] [place] [facility] [address] [id number] [place] [address] Jun, [facility] [place] [facility] [address] [id number] [place] [address] Jun, [facility] [place] [facility] [address] [id number] [place] [address] Jun, [facility] [place] [facility] [address] [id number] [place] [address] May, [facility] [place] [facility] [address] [id number] [place] [address] May, [facility] [place] [facility] [address] [id number] [place] [address] May, [facility] [place] [facility] [address] [id number] [place] [address] May, [facility] [place] [facility] [address] [id number] [place] [address] May, [facility] [place] [facility] [address] [id number] [place] [address] May, [facility] [place] [facility] [address] [id number] [address] May, [facility] [address] [id number] [place] [address] May, [facility] [place] [facility] [address] [id number] [place] [address] May, [facility] [place] [facility] [address] [id number] [place] [address] Apr, [facility] [place] [facility] [address] [id number] [place] [address] Apr, [facility] [place] [facility] [address] [id number] [place] [address] Mar, [facility] [place] [facility] [address] [id number] [place] [address] Mar, [facility] [address] [id number] [place] [address] Feb, [facility] [place] [facility] [address] [id number] [place] [address] Feb, [facility] [place] [facility] [address] [id number] [place] [address] Nov, [facility] [place] [facility] [address] [id number] [place] [address] Nov, [facility] [place] [facility] [address] [id number] [place] [address] Oct, [facility] [place] [facility] [address] [id number], [place] [address] Oct, [facility] [place] [facility] [address] [id number] [place] [address] Oct, [facility] [place] [facility] [address] [id number] [place] [address] Oct, [facility] [place] [facility] [address] [id number] [place] [address] Oct, [facility] [place] [facility] [address] [id number] [place] [address] 23 Sep, 2012 [facility] [place] [facility] [address] [id number] [place] [address] Sep, [facility] [place] [facility] [address] [id number] [place] [address] Sep, [facility] [place] [facility] [address] [id number] [place] [address] Sep, [facility] [place] [facility] [address] [id number] [place] [address] Aug, [facility] [place] [facility] [address] [id number] [place] [address] Aug, [facility] [place] [facility] [address] [id number] [place] [address] Aug, [facility] [place] [facility] [address] [id number] [place] [address] Aug, [facility] [place] [facility] [address] [id number] [place] [address] Jun, [facility] [place] [facility] [address] [id number] [place] [address] Jun, [facility] [place] [facility] [address] [id number] [place] [address] Jun, [facility] [place] [facility] [address] [id number] [place] [address] 17 Jun, 2012 [facility] [place] [facility] [address] [id number] [place] [address] 21 May, 2012 [facility] [place] [facility] [address] [id number] [place] [address] 18 May, 2012 [facility] [place] [facility] [address] [id number] [place] [address] 18 May, 2012 [facility] [place] [facility] [address] [id number] [place] [address] 13 May, 2012 [facility] [address] [id number] [place] [address] 11 May, 2012 [facility] [place] [facility] [address] [id number] [place] [address] 04 May, 2012 [facility] [address] [id number] [place] [address] 21 Apr, 2012 [facility] [place] [facility] [address] [id number] [place] [address] 20 Apr, 2012 [facility] [address] [id number] [place] [address] Apr, [facility] [address] [id number] [place] [address] Apr, [facility] [address] [id number] [place] [address] Apr, [facility] [address] [id number] [place] [address] Feb, [facility] [address] [id number] [place] [address] Feb, [facility] [place] [facility] [address] [id number] [place] [address] Feb, [facility] [address] [id number] [place] [address] Feb, [facility] [place] [facility] [address] [id number] [place] [address] Feb, [facility] [place] [facility] [address] [id number] [place] [address] Feb, [facility] [place] [facility] [address] [facility] [id number] [place] [address] Feb, [facility] [place] [facility] [address] [id number] [place] [address] Feb, [facility] [place] [facility] [address] [id number] [place] [address] 14 Feb, 2012 [facility] [address] [id number] [place] [address] 14 Feb, 2012 [facility] [address] [id number] [place] [address] 13 Feb, 2012 [facility] [address] [id number] [place] [address] 13 Feb, 2012 [facility] [address] [id number] [place] [address] 12 Feb, 2012 [facility] [address] [id number] [place] [address] 12 Feb, 2012 [facility] [address] [id number] [place] [address] 12 Feb, 2012 [facility] [address] [id number] [place] [address] 12 Feb, 2012 [facility] [address] [id number] [place] [address] 12 Feb, 2012 [facility] [address] [id number] [place] [address] Feb, [facility] [address] [id number] [place] [address] Feb, [facility] [address] [id number] [place] [address] Feb, [facility] [address] [id number] [place] [address] Feb, [facility] [place] [facility] [address] [id number] [place] [address] Feb, [facility] [address] [id number] [place] [address] Feb, [facility] [address] [id number] [place] [address] Feb, [facility] [place] [facility] [address] [id number] [place] [address] Feb, [facility] [place] [facility] [address] [id number] [place] [address] Feb, [facility] [place] [facility] [address] [id number] [place] [address] Jan, [facility] [place] [facility] [address] [id number] [place] [address] Jan, [facility] [place] [facility] [address] [id number] [place] [address] Dec, [facility] [place] [facility] [address] [id number] [place] [address] Dec, [facility] [place] [facility] [address] [id number] [place] [address] Dec, [facility] [place] [facility] [address] [id number] [place] [address] Dec, [facility] [place] [facility] [address] [id number] [place] [address] Nov, [facility] [place] [facility] [address] [id number] [place] [address] Nov, [facility] [place] [facility] [address] [id number] [place] [address] Nov, [facility] [place] [facility] [address] [id number] [place] [address] Nov, [facility] [place] [facility] [address] [id number] [place] [address] Oct, [facility] [place] [facility] [address] [id number] [place] [address] Oct, [facility] [place] [facility] [address] [id number] [place] [address] Sep, [facility] [place] [facility] [address] [id number] [place] [address] 17 Sep, 2011 [facility] [address] [id number] [place] [address] Sep, [facility] [place] [facility] [address] [id number] [place] [address] Aug, [facility] [place] [facility] [address] [id number] [place] [address] Aug, [facility] [place] [facility] [address] [id number] [place] [address] 14 Aug, 2011 [facility] [place] [facility] [address] [id number] [place] [address] Aug, [facility] [place] [facility] [address] [id number] [place] [address] Aug, [facility] [address] [id number] [place] [address] July, [facility] [place] [facility] [address] [id number] [place] [address] July, [facility] [place] [facility] [address] [id number] [place] [address] July, [facility] [place] [facility] [address] [id number] [place] [address] July, [facility] [place] [facility] [address] [id number] [place] [address] July, [facility] [place] [facility] [address] [id number] [place] [address] Jun, [facility] [place] [facility] [address] [id number] [place] [address] May, [facility] [place] [facility] [address] [id number] [place] [address] 16 Apr, 2011 [facility] [place] [facility] [address] [id number] [place] [address] 13 Apr, 2011 [facility] [place] [facility] [address] [id number] [place] [address] Apr, [facility] [address] [id number] [place] [address] Mar, [facility] [address] [id number] [place] [address] Mar, [facility] [address] [id number] [place] [address] Mar, [facility] [address] [id number] [place] [address] Mar, [facility] [address] [id number] [place] [address] Mar, [facility] [address] [id number] [place] [address] Mar, [facility] [address] [id number] [place] [address] Mar, [facility] [address] [id number] [place] [address] Mar, [facility] [address] [id number] [place] [address] Feb, [facility] [address] [id number] [place] [address] Feb, [facility] [address] [id number] [place] [address] Feb, [facility] [address] [id number] [place] [address] Feb, [facility] [place] [facility] [address] [id number] [place] [address] Feb, [facility] [address] [id number] [place] [address] Jan, [facility] [address] [id number] [place] [address] Jan, [facility] [place] [facility] [address] [id number] [place] [address] Jan, [facility] [place] [facility] [address] [id number] [place] [address] Jan, [facility] [place] [facility] [address] [id number] [place] [address] 14 Dec, 2010 [facility] [place] [facility] [address] [id number] [place] [address] 14 Dec, 2010 [facility] [place] [facility] [address] [id number] [place] [address] Sep, [facility] [place] [facility] [address] [id number] [place] [address] July, [facility] [place] [facility] [address] [id number] [place] [address] Apr, [facility] [place] [facility] [address] [id number] [place] [address] Mar, [facility] [place] [facility] [address] [id number] [place] [address] Feb, [facility] [place] [facility] [address] [id number] [place] [address] Feb, [facility] [place] [facility] [address] [id number] [place] [address] Feb, [facility] [place] [facility] [address] [id number] [place] [address] Feb, [facility] [place] [facility] [address] [id number] [place] [address] 15 Feb, 2010 [facility] [place] [facility] [address] [id number] [place] [address] Feb, [facility] [place] [facility] [address] [id number] [place] [address] Feb, [facility] [place] [facility] [address] [facility] [id number] [place] [address] Dec, [facility] [address] [facility] [id number] [place] [address] Jan, [facility] [address] [facility] [id number] [place] [address] Apr, IMMUNIZATIONS No Known Immunizations SOCIAL HISTORY Never Assessed REASON FOR VISIT EMR-[facility] [place] PLAN OF CARE VITAL SIGNS MEDICATIONS Unknown [...] Hospitalization History Hyperglycemia 2012 Hospitalization History [facility] 11/28/2015-12/04/2015 2016 Hospitalization History Schizophrenia 09/26/16 Hospitalization History AMS, UTI, hyponatremia-[facility] 10/21/16 Hospitalization History stent placed 02/02/17 Hospitalization History stent placed 02/2017 Hospitalization History [facility] [place]- Syncope, Dehydration and Hypotension. 06/08/2017
--- OUTSIDE RECORDS SUMMARY | 2018-09-05 12:39 | XMS REPORT ---
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.10 Active 7529449010984 Problem Chronic idiopathic constipation K59.04 Active 57785290 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 647028719 Problem Constipation K59.00 Active 29142903 Problem Bipolar affective disorder, current episode mixed, current episode severity unspecified F31.60 Active 408058459 Problem Arthritis of back M47.9 Active 46906598 Problem Psychosis, unspecified psychosis type F29 Active 11720486 Problem 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 Active 438736320 Problem Age-related incipient cataract of both eyes H25.093 Active 375656723 Problem Diabetes 1.5, 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 117236378 Problem Essential hypertension I10 Active 85553491 ALLERGIES No Information ENCOUNTERS Encounter Location Date Diagnosis [facility] [address] [address] July, [facility] [id number] [place] [address] Jun, 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 and 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 [facility] [id number] [place] [address] May, [facility] [address], [place] [address] Apr, [place] [id number] [place] [address] Apr, Diabetes E11.9 [place] [address] [address] Apr, Bipolar affective disorder, current episode mixed, current episode severity unspecified F31.60 [place] [address] [address] Apr, [facility] [address] [address] Mar, [place] [address] [address] Mar, Psychosis, unspecified psychosis type F29 and Bipolar affective disorder, current episode mixed, current episode severity unspecified F31.60 [place] [address] [address] Mar, [facility] [address] [address] Mar, Low back pain M54.5 and Arthritis of back M47.9 [place] [address] [address] Mar, [facility] [id number] [place] [address] Feb, Abdominal pain R10.9 and Constipation K59.00 [place] [address] [address] Feb, Vertigo R42 ; 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 ; Hyperglycemia R73.9 and Essential hypertension I10 [place] [address] [address] Jan, [facility] [id number] [place] [address] Dec, [place] [address] [address] Dec, [facility] [id number] [place] [address] Dec, Dizziness R42 and Diabetes 1.5, 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 [facility] [id number] [place] [address] Dec, [place] [address] [address] Dec, [facility] [id number] [place] [address] Dec, Psychosis, unspecified psychosis type F29 and Bipolar affective disorder, current episode mixed, current episode severity unspecified F31.60 [facility] [id number] [place] [address] Dec, [place] [address] [address] Dec, [facility] [id number] [place] [address] Dec, 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 ; 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 and Hyperglycemia R73.9 [facility] [id number] [place] [address] Oct, [facility] [id number] [place] [address] Oct, [facility] [id number] [place] [address] Oct, [facility] [id number] [place] [address] Sep, [facility] [id number] [place] [address] Aug, Upper respiratory tract infection, unspecified type J06.9 ; Chronic idiopathic constipation K59.04 ; Fluid level behind tympanic membrane of both ears H65.93 and Abdominal pain R10.9 [facility] [id number] [place] [address] July, Diabetes E11.9 [facility] [address] [address] Jun, Dehydration E86.0 ; Diabetes E11.9 and Hyperglycemia R73.9 [place] [address] [address] Jun, [place] [address] [address] Jun, Vertigo R42 ; Syncope, unspecified syncope type R55 ; Diabetes E11.9 and Hyperglycemia R73.9 [facility] [id number] [place] [address] May, Psychosis, unspecified psychosis type F29 and Bipolar affective disorder, current episode mixed, current episode severity unspecified F31.60 [facility] [id number] [place] [address] May, [facility] [id number] [place] [address] May, Diabetes E11.9 [facility] [id number] [place] [id number] Apr, Dental examination Z01.20 and Dental caries K02.9 [place] [id number] [place] [address] Apr, Dental examination Z01.20 and Dental abscess K04.7 [facility] [id number] [place] [address] Mar, Psychosis, unspecified psychosis type F29 and Bipolar affective disorder, current episode mixed, current episode severity unspecified F31.60 [facility] [id number] [place] [address] Mar, [facility] [id number] [place] [address] Feb, [facility] [id number] [place] [address] Feb, Left wrist pain M25.532 [facility] [id number] [place] [address] Jan, [place] [id number] [place] [address] Jan, Psychosis, unspecified psychosis type F29 and Bipolar affective disorder, current episode mixed, current episode severity unspecified F31.60 [facility] [id number] [place] [address] Jan, Diabetes E11.9 [facility] [place] [id number] [place] [address] Jan, Left wrist pain M25.532 [place] [id number] [place] [address] Dec, Psychosis, unspecified psychosis type F29 and Bipolar affective disorder, current episode mixed, current episode severity unspecified F31.60 [place] [id number] [place] [address] Dec, Syncope, unspecified syncope type R55 ; Vertigo R42 ; Diabetes E11.9 ; Psychosis, unspecified psychosis type F29 and Fall, initial encounter W19.XXXA [place] [id number] [place] [address] Dec, Diabetes E11.9 ; Neck pain M54.2 and Vertigo R42 [place] [id number] [place] [address] Nov, [facility] [id number] [place] [address] Nov, [place] [address] [place] [address] Nov, [facility] [facility] [address] [address] 06 Nov, 2016 Diabetes E11.9 [facility] [address], [place] [address] Nov, Diabetes E11.9 [facility] [address], [place] [address] Oct, [facility] [address] [id number] Oct, [facility] [address], [place] [address] Oct, [facility] [address], [place] [address] Oct, Bipolar affective disorder, current episode mixed, current episode severity unspecified F31.60 [facility] [id number] [id number] Sep, [facility] [address], [place] [address] Sep, Bipolar affective disorder, current episode mixed, current episode severity unspecified F31.60 [facility] [address], [place] [address] Sep, Acute maxillary sinusitis, recurrence not specified J01.00 [facility] [id number] [address] Sep, Diabetes E11.9 [facility] [id number] [address] July, Diabetes E11.9 [facility] [id number] [address] July, Diabetes E11.9 [facility] [address], [place] [address] Jun, [facility] [id number] [address] May, Bipolar affective disorder, current episode mixed, current episode severity unspecified F31.60 [facility] [id number] [place] [address] May, Acute non-recurrent maxillary sinusitis J01.00 [facility] [id number] [place] [address] 10 Apr, 2016 Psychosis, unspecified psychosis type F29 and Bipolar affective disorder, current episode mixed, current episode severity unspecified F31.60 [facility] [id number] [place] [address] Apr, Dysuria R30.0 ; Other viral agents as the cause of diseases classified elsewhere B97.89 and Acute upper respiratory infection, unspecified J06.9 [place] [id number] [place] [address] Mar, Diabetes E11.9 ; Urine leukocytes R82.99 and Psychosis, unspecified psychosis type F29 [place] [id number] [place] [address] Mar, Diabetes E11.9 [place] [id number] [place] [address] Feb, [place] [id number] [place] [address] Jan, [place] [id number] [place] [address] Dec, Psychosis, unspecified psychosis type F29 [facility] [id number] [place] [address] Dec, [facility] [id number] [place] [address] Dec, [facility] [id number] [place] [address] Dec, Psychosis, unspecified psychosis type F29 [place] [address] [place] [address] Nov, Schizoaffective disorder, unspecified type F25.9 [facility] [id number] [place] [address] Oct, [facility] [id number] [place] [address] Oct, Conjunctivitis of right eye, unspecified conjunctivitis type H10.9 [facility] [id number] [place] [address] Aug, [facility] [id number] [place] [id number] Jun, Encounter for dental examination Z01.20 [facility] [id number] [place] [address] Jun, Diabetes E11.9 and Bipolar affect, depressed F31.30 [facility] [id number] [place] [address] Jun, Other bipolar disorder F31.89 [facility] [id number] [place] [address] Jun, [facility] [id number] [place] [address] Apr, [facility] [id number] [place] [address] Dec, [facility] [id number] [place] [address] Dec, [facility] [id number] [place] [address] Sep, [facility] [id number] [place] [address] Jun, [facility] [id number] [place] [address] Jun, [facility] [id number] [place] [address] Mar, [facility] [address] [id number] [place] [address] Mar, [facility] [place] [facility] [address] [id number] [place] [address] Nov, [facility] [place] [facility] [address] [id number] [place] [address] Nov, [facility] [place] [facility] [address] [id number] [place] [address] Sep, [facility] [place] [facility] [address] [id number] [place] [address] Sep, [facility] [place] [facility] [address] [id number] [place] [address] Sep, [facility] [place] [facility] [address] [id number] [place] [address] Sep, [facility] [place] [facility] [address] [id number] [place] [address] Sep, [facility] [place] [facility] [address] [id number] [place] [address] Aug, [facility] [place] [facility] [address] [id number] [place] [address] Aug, [facility] [place] [facility] [address] [id number] [place] [address] Aug, [facility] [place] [facility] [address] [id number] [place] [address] Aug, [facility] [place] [facility] [address] [id number] [place] [address] Aug, [facility] [place] [facility] [address] [id number] [place] [address] Aug, [facility] [place] [facility] [address] [id number] [place] [address] July, [facility] [place] [facility] [address] [id number] [place] [address] July, [facility] [place] [facility] [address] [id number] [place] [address] Jun, [facility] [place] [facility] [address] [id number] [place] [address] Jun, [facility] [place] [facility] [address] [id number] [place] [address] Jun, [facility] [place] [facility] [address] [id number] [place] [address] Jun, [facility] [place] [facility] [address] [id number] [place] [address] Jun, [facility] [place] [facility] [address] [id number] [place] [address] Jun, [facility] [place] [facility] [address] [id number] [place] [address] Jun, [facility] [place] [facility] [address] [id number] [place] [address] Jun, [facility] [place] [facility] [address] [id number] [place] [address] May, [facility] [place] [facility] [address] [id number] [place] [address] May, [facility] [place] [facility] [address] [id number] [place] [address] May, [facility] [place] [facility] [address] [id number] [place] [address] May, [facility] [place] [facility] [address] [id number] [place] [address] May, [facility] [place] [facility] [address] [id number] [place] [address] May, [facility] [place] [facility] [address] [id number], [place] [address] May, [facility] [address] [id number] [place] [address] May, [facility] [place] [facility] [address] [id number] [place] [address] May, [facility] [place] [facility] [address] [id number] [place] [address] Apr, [facility] [place] [facility] [address] [id number] [place] [address] Apr, [facility] [place] [facility] [address] [id number] [place] [address] Mar, [facility] [place] [facility] [address] [id number] [place] [address] Mar, [facility] [address] [id number] [place] [address] Feb, [facility] [place] [facility] [address] [id number] [place] [address] Feb, [facility] [place] [facility] [address] [id number] [place] [address] Nov, [facility] [place] [facility] [address] [id number] [place] [address] Nov, [facility] [place] [facility] [address] [id number] [place] [address] Oct, [facility] [place] [facility] [address] [id number], [place] [address] Oct, [facility] [place] [facility] [address] [id number] [place] [address] Oct, [facility] [place] [facility] [address] [id number] [place] [address] Oct, [facility] [place] [facility] [address] [id number] [place] [address] Oct, [facility] [place] [facility] [address] [id number] [place] [address] 23 Sep, 2012 [facility] [place] [facility] [address] [id number] [place] [address] Sep, [facility] [place] [facility] [address] [id number] [place] [address] Sep, [facility] [place] [facility] [address] [id number] [place] [address] Sep, [facility] [place] [facility] [address] [id number] [place] [address] Aug, [facility] [place] [facility] [address] [id number] [place] [address] Aug, [facility] [place] [facility] [address] [id number] [place] [address] Aug, [facility] [place] [facility] [address] [id number] [place] [address] Aug, [facility] [place] [facility] [address] [id number] [place] [address] Jun, [facility] [place] [facility] [address] [id number] [place] [address] Jun, [facility] [place] [facility] [address] [id number] [place] [address] Jun, [facility] [place] [facility] [address] [id number] [place] [address] 17 Jun, 2012 [facility] [place] [facility] [address] [id number] [place] [address] 21 May, 2012 [facility] [place] [facility] [address] [id number] [place] [address] 18 May, 2012 [facility] [place] [facility] [address] [id number] [place] [address] 18 May, 2012 [facility] [place] [facility] [address] [id number] [place] [address] 13 May, 2012 [facility] [address] [id number] [place] [address] 11 May, 2012 [facility] [place] [facility] [address] [id number] [place] [address] 04 May, 2012 [facility] [address] [id number] [place] [address] 21 Apr, 2012 [facility] [place] [facility] [address] [id number] [place] [address] 20 Apr, 2012 [facility] [address] [id number] [place] [address] Apr, [facility] [address] [id number] [place] [address] Apr, [facility] [address] [id number] [place] [address] Apr, [facility] [address] [id number] [place] [address] Feb, [facility] [address] [id number] [place] [address] Feb, [facility] [place] [facility] [address] [id number] [place] [address] Feb, [facility] [address] [id number] [place] [address] Feb, [facility] [place] [facility] [address] [id number] [place] [address] Feb, [facility] [place] [facility] [address] [id number] [place] [address] Feb, [facility] [place] [facility] [address] [facility] [id number] [place] [address] Feb, [facility] [place] [facility] [address] [id number] [place] [address] Feb, [facility] [place] [facility] [address] [id number] [place] [address] 14 Feb, 2012 [facility] [address] [id number] [place] [address] 14 Feb, 2012 [facility] [address] [id number] [place] [address] 13 Feb, 2012 [facility] [address] [id number] [place] [address] 13 Feb, 2012 [facility] [address] [id number] [place] [address] 12 Feb, 2012 [facility] [address] [id number] [place] [address] 12 Feb, 2012 [facility] [address] [id number] [place] [address] 12 Feb, 2012 [facility] [address] [id number] [place] [address] 12 Feb, 2012 [facility] [address] [id number] [place] [address] 12 Feb, 2012 [facility] [address] [id number] [place] [address] Feb, [facility] [address] [id number] [place] [address] Feb, [facility] [address] [id number] [place] [address] Feb, [facility] [address] [id number] [place] [address] Feb, [facility] [place] [facility] [address] [id number] [place] [address] Feb, [facility] [address] [id number] [place] [address] Feb, [facility] [address] [id number] [place] [address] Feb, [facility] [place] [facility] [address] [id number] [place] [address] Feb, [facility] [place] [facility] [address] [id number] [place] [address] Feb, [facility] [place] [facility] [address] [id number] [place] [address] Jan, [facility] [place] [facility] [address] [id number] [place] [address] Jan, [facility] [place] [facility] [address] [id number] [place] [address] Dec, [facility] [place] [facility] [address] [id number] [place] [address] Dec, [facility] [place] [facility] [address] [id number] [place] [address] Dec, [facility] [place] [facility] [address] [id number] [place] [address] Dec, [facility] [place] [facility] [address] [id number] [place] [address] Nov, [facility] [place] [facility] [address] [id number] [place] [address] Nov, [facility] [place] [facility] [address] [id number] [place] [address] Nov, [facility] [place] [facility] [address] [id number] [place] [address] Nov, [facility] [place] [facility] [address] [id number] [place] [address] Oct, [facility] [place] [facility] [address] [id number] [place] [address] Oct, [facility] [place] [facility] [address] [id number] [place] [address] Sep, [facility] [place] [facility] [address] [id number] [place] [address] 17 Sep, 2011 [facility] [address] [id number] [place] [address] Sep, [facility] [place] [facility] [address] [id number] [place] [address] Aug, [facility] [place] [facility] [address] [id number] [place] [address] Aug, [facility] [place] [facility] [address] [id number] [place] [address] 14 Aug, 2011 [facility] [place] [facility] [address] [id number] [place] [address] Aug, [facility] [place] [facility] [address] [id number] [place] [address] Aug, [facility] [facility] [address] [id number] [place] [address] July, [facility] [place] [facility] [address] [id number] [place] [address] July, [facility] [place] [facility] [address] [id number] [place] [address] July, [facility] [place] [facility] [address] [id number] [place] [address] July, [facility] [place] [facility] [address] [id number] [place] [address] July, [facility] [place] [facility] [address] [id number] [place] [address] Jun, [facility] [place] [facility] [address] [id number] [place] [address] May, [facility] [place] [facility] [address] [id number] [place] [address] 16 Apr, 2011 [facility] [place] [facility] [address] [id number] [place] [address] 13 Apr, 2011 [facility] [place] [facility] [address] [id number] [place] [address] Apr, [facility] [address] [id number] [place] [address] Mar, [facility] [address] [id number] [place] [address] Mar, [facility] [address] [id number] [place] [address] Mar, [facility] [address] [id number] [place] [address] Mar, [facility] [address] [id number] [place] [address] Mar, [facility] [address] [id number] [place] [address] Mar, [facility] [address] [id number] [place] [address] Mar, [facility] [address] [id number] [place] [address] Mar, [facility] [address] [id number] [place] [address] Feb, [facility] [address] [id number] [place] [address] Feb, [facility] [address] [id number] [place] [address] Feb, [facility] [address] [id number] [place] [address] Feb, [facility] [place] [facility] [address] [id number] [place] [address] Feb, [facility] [address] [id number] [place] [address] Jan, [facility] [address] [id number] [place] [address] Jan, [facility] [place] [facility] [address] [id number] [place] [address] Jan, [facility] [place] [facility] [address] [id number] [place] [address] Jan, [facility] [place] [facility] [address] [id number] [place] [address] 14 Dec, 2010 [facility] [place] [facility] [address] [id number] [place] [address] 14 Dec, 2010 [facility] [place] [facility] [address] [id number] [place] [address] Sep, [facility] [place] [facility] [address] [id number] [place] [address] July, [facility] [place] [facility] [address] [id number] [place] [address] Apr, [facility] [place] [facility] [address] [id number] [place] [address] Mar, [facility] [place] [facility] [address] [id number] [place] [address] Feb, [facility] [place] [facility] [address] [id number] [place] [address] Feb, [facility] [place] [facility] [address] [id number] [place] [address] Feb, [facility] [place] [facility] [address] [id number] [place] [address] Feb, [facility] [place] [facility] [address] [id number] [place] [address] 15 Feb, 2010 [facility] [place] [facility] [address] [id number] [place] [address] Feb, [facility] [place] [facility] [address] [id number] [place] [address] Feb, [facility] [place] [facility] [address] [facility] [id number] [place] [address] Dec[facility] [address] [facility] [id number] [place] [address] Jan, [facility] [address] [facility] [id number] [place] [address] Apr, IMMUNIZATIONS No Known Immunizations SOCIAL HISTORY Never Assessed REASON FOR VISIT EMR-[facility] PLAN OF CARE VITAL SIGNS MEDICATIONS Unknown [...] Hospitalization History Hyperglycemia 2012 Hospitalization History [facility] 11/28/2015-12/04/2015 2016 Hospitalization History Schizophrenia 09/26/16 Hospitalization History AMS, UTI, hyponatremia-[facility] 10/21/16 Hospitalization History stent placed 02/02/17 Hospitalization History stent placed 02/2017 Hospitalization History [facility]- Syncope, Dehydration and Hypotension. 06/08/2017
--- OUTSIDE RECORDS SUMMARY | 2018-09-05 12:40 | XMS REPORT ---
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 Name Role Phone Migration, Doctor Unavailable Unavailable PROBLEMS Type Condition ICD9-CM Code HOR95-ZY Code Onset Dates Condition Status SNOMED Code Problem Diabetes E11.9 Active 21452209 Problem Pacemaker Z95.0 Active 932677990 Problem CVA (cerebral vascular accident) I63.9 Active 630087322 Problem Coronary artery disease involving [place] coronary artery of [place] heart without angina pectoris I25.10 Active 5650110113590 Problem Chronic idiopathic constipation K59.04 Active 49854286 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 705615945 Problem Constipation K59.00 Active 11112588 Problem Bipolar affective disorder, current episode mixed, current episode severity unspecified F31.60 Active 346803799 Problem Arthritis of back M47.9 Active 29086687 Problem Psychosis, unspecified psychosis type F29 Active 47991614 Problem 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 Active 259312621 Problem Age-related incipient cataract of both eyes H25.093 Active 396148635 Problem Diabetes 1.5, 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 118673477 Problem Essential hypertension I10 Active 42008535 ALLERGIES No Information ENCOUNTERS Encounter Location Date Diagnosis [facility] [address] [address] July, [facility] [id number] [place] [address] Jun, 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 and 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 [facility] [id number] [place] [address] May, [facility] [address] [address] Apr, [place] [id number] [place] [address] Apr, Diabetes E11.9 [place] [address] [address] Apr, Bipolar affective disorder, current episode mixed, current episode severity unspecified F31.60 [place] [address] [address] Apr, [facility] [address] [address] Mar, [place] [address] [address] Mar, Psychosis, unspecified psychosis type F29 and Bipolar affective disorder, current episode mixed, current episode severity unspecified F31.60 [place] [address] [address] Mar, [facility] [address] [address] Mar, Low back pain M54.5 and Arthritis of back M47.9 [place] [address] [address] Mar, [facility] [id number] [place] [address] Feb, Abdominal pain R10.9 and Constipation K59.00 [place] [address] [address] Feb, Vertigo R42 ; 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 ; Hyperglycemia R73.9 and Essential hypertension I10 [place] [address] [address] Jan, [place] [id number] [place] [address] Dec, [place] [address] [address] Dec, [facility] [id number] [place] [address] Dec, Dizziness R42 and Diabetes 1.5, 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 [facility] [id number] [place] [address] Dec, [place] [address] [address] Dec, [facility] [id number] [place] [address] Dec, Psychosis, unspecified psychosis type F29 and Bipolar affective disorder, current episode mixed, current episode severity unspecified F31.60 [place] [id number] [place] [address] Dec, [place] [address] [address] Dec, [place] [id number] [place] [address] Dec, 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 ; 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 and Hyperglycemia R73.9 [facility] [id number] [place] [address] Oct, [place] [id number] [place] [address] Oct, [place] [id number] [place] [address] Oct, [place] [id number] [place] [address] Sep, [facility] [id number] [place] [address] Aug, Upper respiratory tract infection, unspecified type J06.9 ; Chronic idiopathic constipation K59.04 ; Fluid level behind tympanic membrane of both ears H65.93 and Abdominal pain R10.9 [facility] [id number] [place] [address] July, Diabetes E11.9 [facility] [address] [address] Jun, Dehydration E86.0 ; Diabetes E11.9 and Hyperglycemia R73.9 [place] [address] [address] Jun, [place] [address] [address] Jun, Vertigo R42 ; Syncope, unspecified syncope type R55 ; Diabetes E11.9 and Hyperglycemia R73.9 [place] [id number] [place] [address] May, Psychosis, unspecified psychosis type F29 and Bipolar affective disorder, current episode mixed, current episode severity unspecified F31.60 [place] [id number] [place] [address] May, [place] [id number] [place] [address] May, Diabetes E11.9 [facility] [id number] [place] [id number] Apr, Dental examination Z01.20 and Dental caries K02.9 [place] [id number] [place] [address] Apr, Dental examination Z01.20 and Dental abscess K04.7 [place] [id number] [place] [address] Mar, Psychosis, unspecified psychosis type F29 and Bipolar affective disorder, current episode mixed, current episode severity unspecified F31.60 [place] [id number] [place] [address] Mar, [facility] [id number] [place] [address] Feb, [facility] [id number] [place] [address] Feb, Left wrist pain M25.532 [facility] [id number] [place] [address] Jan, [place] [id number] [place] [address] Jan, Psychosis, unspecified psychosis type F29 and Bipolar affective disorder, current episode mixed, current episode severity unspecified F31.60 [place] [id number] [place] [address] Jan, Diabetes E11.9 [facility] [place] [id number] [place] [address] Jan, Left wrist pain M25.532 [place] [id number] [place] [address] Dec, Psychosis, unspecified psychosis type F29 and Bipolar affective disorder, current episode mixed, current episode severity unspecified F31.60 [place] [id number] [place] [address] Dec, Syncope, unspecified syncope type R55 ; Vertigo R42 ; Diabetes E11.9 ; Psychosis, unspecified psychosis type F29 and Fall, initial encounter W19.XXXA [place] [id number] [place] [address] Dec, Diabetes E11.9 ; Neck pain M54.2 and Vertigo R42 [place] [id number] [place] [address] Nov, [facility] [id number] [place] [address] Nov, [place] [id number] [place] [address] Nov, [place] [id number] [address] 06 Nov, 2016 Diabetes E11.9 [facility] [address] [address] Nov, Diabetes E11.9 [facility] [address] [address] Oct, [facility] [id number] [id number] Oct, [facility] [address] [address] Oct, [facility] [address] [address] Oct, Bipolar affective disorder, current episode mixed, current episode severity unspecified F31.60 [facility] [id number] [id number] Sep, [facility] [address] [address] Sep, Bipolar affective disorder, current episode mixed, current episode severity unspecified F31.60 [facility] [address] [address] Sep, Acute maxillary sinusitis, recurrence not specified J01.00 [facility] [id number] [address] Sep, Diabetes E11.9 [facility] [id number] [address] July, Diabetes E11.9 [facility] [id number] [address] July, Diabetes E11.9 [facility] [address] [address] Jun, [facility] [id number] [address] May, Bipolar affective disorder, current episode mixed, current episode severity unspecified F31.60 [facility] [id number] [place] [address] May, Acute non-recurrent maxillary sinusitis J01.00 [facility] [id number] [place] [address] 10 Apr, 2016 Psychosis, unspecified psychosis type F29 and Bipolar affective disorder, current episode mixed, current episode severity unspecified F31.60 [facility] [id number] [place] [address] Apr, Dysuria R30.0 ; Other viral agents as the cause of diseases classified elsewhere B97.89 and Acute upper respiratory infection, unspecified J06.9 [place] [id number] [place] [address] Mar, Diabetes E11.9 ; Urine leukocytes R82.99 and Psychosis, unspecified psychosis type F29 [place] [id number] [place] [address] Mar, Diabetes E11.9 [place] [address] [place] [address] Feb, [place] [id number] [place] [address] Jan, [place] [id number] [place] [address] Dec, Psychosis, unspecified psychosis type F29 [facility] [id number] [place] [address] Dec, [facility] [id number] [place] [address] Dec, [facility] [id number] [place] [address] Dec, Psychosis, unspecified psychosis type F29 [place] [address] [place] [address] Nov, Schizoaffective disorder, unspecified type F25.9 [facility] [id number] [place] [address] Oct, [facility] [id number] [place] [address] Oct, Conjunctivitis of right eye, unspecified conjunctivitis type H10.9 [facility] [id number] [place] [address] Aug, [facility] [id number] [place] [id number] Jun, Encounter for dental examination Z01.20 [facility] [id number] [place] [address] Jun, Diabetes E11.9 and Bipolar affect, depressed F31.30 [facility] [id number] [place] [address] Jun, Other bipolar disorder F31.89 [facility] [id number] [place] [address] Jun, [facility] [id number] [place] [address] Apr, [facility] [id number] [place] [address] Dec, [facility] [id number] [place] [address] Dec, [facility] [id number] [place] [address] Sep, [facility] [id number] [place] [address] Jun, [facility] [id number] [place] [address] Jun, [facility] [id number] [place] [address] Mar, [facility] [address] [id number] [place] [address] Mar, [facility] [place] [facility] [address] [id number] [place] [address] Nov, [facility] [place] [facility] [address] [id number] [place] [address] Nov, [facility] [place] [facility] [address] [id number] [place] [address] Sep, [facility] [place] [facility] [address] [id number] [place] [address] Sep, [facility] [place] [facility] [address] [id number] [place] [address] Sep, [facility] [place] [facility] [address] [id number] [place] [address] Sep, [facility] [place] [facility] [address] [id number] [place] [address] Sep, [facility] [place] [facility] [address] [id number] [place] [address] Aug, [facility] [place] [facility] [address] [id number] [place] [address] Aug, [facility] [place] [facility] [address] [id number] [place] [address] Aug, [facility] [place] [facility] [address] [id number] [place] [address] Aug, [facility] [place] [facility] [address] [id number] [place] [address] Aug, [facility] [place] [facility] [address] [id number] [place] [address] Aug, [facility] [place] [facility] [address] [id number] [place] [address] July, [facility] [place] [facility] [address] [id number] [place] [address] July, [facility] [place] [facility] [address] [id number] [place] [address] Jun, [facility] [place] [facility] [address] [id number] [place] [address] Jun, [facility] [place] [facility] [address] [id number] [place] [address] Jun, [facility] [place] [facility] [address] [id number] [place] [address] Jun, [facility] [place] [facility] [address] [id number] [place] [address] Jun, [facility] [place] [facility] [address] [id number] [place] [address] Jun, [facility] [place] [facility] [address] [id number] [place] [address] Jun, [facility] [place] [facility] [address] [id number] [place] [address] Jun, [facility] [place] [facility] [address] [id number] [place] [address] May, [facility] [place] [facility] [address] [id number] [place] [address] May, [facility] [place] [facility] [address] [id number] [place] [address] May, [facility] [place] [facility] [address] [id number] [place] [address] May, [facility] [place] [facility] [address] [id number] [place] [address] May, [facility] [place] [facility] [address] [id number] [place] [address] May, [facility] [place] [facility] [address] [id number] [address] May, [facility] [address] [id number] [place] [address] May, [facility] [place] [facility] [address] [id number] [place] [address] May, [facility] [place] [facility] [address] [id number] [place] [address] Apr, [facility] [place] [facility] [address] [id number] [place] [address] Apr, [facility] [place] [facility] [address] [id number] [place] [address] Mar, [facility] [place] [facility] [address] [id number] [place] [address] Mar, [facility] [address] [id number] [place] [address] Feb, [facility] [place] [facility] [address] [id number] [place] [address] Feb, [facility] [place] [facility] [address] [id number] [place] [address] Nov, [facility] [place] [facility] [address] [id number] [place] [address] Nov, [facility] [place] [facility] [address] [id number] [place] [address] Oct, [facility] [place] [facility] [address] [id number] [address] Oct, [facility] [place] [facility] [address] [id number] [place] [address] Oct, [facility] [place] [facility] [address] [id number] [place] [address] Oct, [facility] [place] [facility] [address] [id number] [place] [address] Oct, [facility] [place] [facility] [address] [id number] [place] [address] 23 Sep, 2012 [facility] [place] [facility] [address] [id number] [place] [address] Sep, [facility] [place] [facility] [address] [id number] [place] [address] Sep, [facility] [place] [facility] [address] [id number] [place] [address] Sep, [facility] [place] [facility] [address] [id number] [place] [address] Aug, [facility] [place] [facility] [address] [id number] [place] [address] Aug, [facility] [place] [facility] [address] [id number] [place] [address] Aug, [facility] [place] [facility] [address] [id number] [place] [address] Aug, [facility] [place] [facility] [address] [id number] [place] [address] Jun, [facility] [place] [facility] [address] [id number] [place] [address] Jun, [facility] [place] [facility] [address] [id number] [place] [address] Jun, [facility] [place] [facility] [address] [id number] [place] [address] 17 Jun, 2012 [facility] [place] [facility] [address] [id number] [place] [address] 21 May, 2012 [facility] [place] [facility] [address] [id number] [place] [address] 18 May, 2012 [facility] [place] [facility] [address] [id number] [place] [address] 18 May, 2012 [facility] [place] [facility] [address] [id number] [place] [address] 13 May, 2012 [facility] [address] [id number] [place] [address] 11 May, 2012 [facility] [place] [facility] [address] [id number] [place] [address] 04 May, 2012 [facility] [address] [id number] [place] [address] 21 Apr, 2012 [facility] [place] [facility] [address] [id number] [place] [address] 20 Apr, 2012 [facility] [address] [id number] [place] [address] Apr, [facility] [address] [id number] [place] [address] Apr, [facility] [address] [id number] [place] [address] Apr, [facility] [address] [id number] [place] [address] Feb, [facility] [address] [id number] [place] [address] Feb, [facility] [place] [facility] [address] [id number] [place] [address] Feb, [facility] [address] [id number] [place] [address] Feb, [facility] [place] [facility] [address] [id number] [place] [address] Feb, [facility] [place] [facility] [address] [id number] [place] [address] Feb, [facility] [place] [facility] [address] [facility] [id number] [place] [address] Feb, [facility] [place] [facility] [address] [id number] [place] [address] Feb, [facility] [place] [facility] [address] [id number] [place] [address] 14 Feb, 2012 [facility] [address] [id number] [place] [address] 14 Feb, 2012 [facility] [address] [id number] [place] [address] 13 Feb, 2012 [facility] [address] [id number] [place] [address] 13 Feb, 2012 [facility] [address] [id number] [place] [address] 12 Feb, 2012 [facility] [address] [id number] [place] [address] 12 Feb, 2012 [facility] [address] [id number] [place] [address] 12 Feb, 2012 [facility] [address] [id number] [place] [address] 12 Feb, 2012 [facility] [address] [id number] [place] [address] 12 Feb, 2012 [facility] [address] [id number] [place] [address] Feb, [facility] [address] [id number] [place] [address] Feb, [facility] [address] [id number] [place] [address] Feb, [facility] [address] [id number] [place] [address] Feb, [facility] [place] [facility] [address] [id number] [place] [address] Feb, [facility] [address] [id number] [place] [address] Feb, [facility] [address] [id number] [place] [address] Feb, [facility] [place] [facility] [address] [id number] [place] [address] Feb, [facility] [place] [facility] [address] [id number] [place] [address] Feb, [facility] [place] [facility] [address] [id number] [place] [address] Jan, [facility] [place] [facility] [address] [id number] [place] [address] Jan, [facility] [place] [facility] [address] [id number] [place] [address] Dec, [facility] [place] [facility] [address] [id number] [place] [address] Dec, [facility] [place] [facility] [address] [id number] [place] [address] Dec, [facility] [place] [facility] [address] [id number] [place] [address] Dec, [facility] [place] [facility] [address] [id number] [place] [address] Nov, [facility] [place] [facility] [address] [id number] [place] [address] Nov, [facility] [place] [facility] [address] [id number] [place] [address] Nov, [facility] [place] [facility] [address] [id number] [place] [address] Nov, [facility] [place] [facility] [address] [id number] [place] [address] Oct, [facility] [place] [facility] [address] [id number] [place] [address] Oct, [facility] [place] [facility] [address] [id number] [place] [address] Sep, [facility] [place] [facility] [address] [id number] [place] [address] 17 Sep, 2011 [facility] [address] [id number] [place] [address] Sep, [facility] [place] [facility] [address] [id number] [place] [address] Aug, [facility] [place] [facility] [address] [id number] [place] [address] Aug, [facility] [place] [facility] [address] [id number] [place] [address] 14 Aug, 2011 [facility] [place] [facility] [address] [id number] [place] [address] Aug, [facility] [place] [facility] [address] [id number] [place] [address] Aug, [facility] [address] [id number] [place] [address] July, [facility] [place] [facility] [address] [id number] [place] [place] [address] July, [facility] [place] [facility] [address] [id number] [place] [address] July, [facility] [place] [facility] [address] [id number] [place] [address] July, [facility] [place] [facility] [address] [id number] [place] [address] July, [facility] [place] [facility] [address] [id number] [place] [address] Jun, [facility] [place] [facility] [address] [id number] [place] [address] May, [facility] [place] [facility] [address] [id number] [place] [address] 16 Apr, 2011 [facility] [place] [facility] [address] [id number] [place] [address] 13 Apr, 2011 [facility] [place] [facility] [address] [id number] [place] [address] Apr, [facility] [address] [id number] [place] [address] Mar, [facility] [address] [id number] [place] [address] Mar, [facility] [address] [id number] [place] [address] Mar, [facility] [address] [id number] [place] [address] Mar, [facility] [address] [id number] [place] [address] Mar, [facility] [address] [id number] [place] [address] Mar, [facility] [address] [id number] [place] [address] Mar, [facility] [address] [id number] [place] [address] Mar, [facility] [address] [id number] [place] [address] Feb, [facility] [address] [id number] [place] [address] Feb, [facility] [address] [id number] [place] [address] Feb, [facility] [address] [id number] [place] [address] Feb, [facility] [place] [facility] [address] [id number] [place] [address] Feb, [facility] [address] [id number] [place] [address] Jan, [facility] [address] [id number] [place] [address] Jan, [facility] [place] [facility] [address] [id number] [place] [address] Jan, [facility] [place] [facility] [address] [id number] [place] [address] Jan, [facility] [place] [facility] [address] [id number] [place] [address] 14 Dec, 2010 [facility] [place] [facility] [address] [id number] [place] [address] 14 Dec, 2010 [facility] [place] [facility] [address] [id number] [place] [address] Sep, [facility] [place] [facility] [address] [id number] [place] [address] July, [facility] [place] [facility] [address] [id number] [place] [address] Apr, [facility] [place] [facility] [address] [id number] [place] [address] Mar, [facility] [place] [facility] [address] [id number] [place] [address] Feb, [facility] [place] [facility] [address] [id number] [place] [address] Feb, [facility] [place] [facility] [address] [id number] [place] [address] Feb, [facility] [place] [facility] [address] [id number] [place] [address] Feb, [facility] [place] [facility] [address] [id number] [place] [address] 15 Feb, 2010 [facility] [place] [facility] [address] [id number] [place] [address] Feb, [facility] [place] [facility] [address] [id number] [place] [address] Feb, [facility] [place] [facility] [address] [facility] [id number] [place] [address] Dec, [facility] [address] [facility] [id number] [place] [address] Jan, [facility] [address] [facility] [id number] [place] [address] Apr, IMMUNIZATIONS No Known Immunizations SOCIAL HISTORY Never Assessed REASON FOR VISIT [place] [place] CARE VITAL SIGNS MEDICATIONS Unknown [...] Hospitalization History Hyperglycemia 2012 Hospitalization History [facility] 11/28/2015-12/04/2015 2016 Hospitalization History Schizophrenia 09/26/16 Hospitalization History AMS, UTI, hyponatremia-[facility] 10/21/16 Hospitalization History stent placed 02/02/17 Hospitalization History stent placed 02/2017 Hospitalization History [facility]- Syncope, Dehydration and Hypotension. 06/08/2017
--- OUTSIDE RECORDS SUMMARY | 2018-09-05 12:40 | XMS REPORT ---
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.10 Active 6203441905104 Problem Chronic idiopathic constipation K59.04 Active 50278565 Problem terminal gauger current use of insulin Z79.4 Active 245173183 Problem Constipation K59.00 Active 27116515 Problem Bipolar affective disorder, current episode mixed, current episode severity unspecified F31.60 Active 742853270 Problem Arthritis of back M47.9 Active 42201016 Problem Psychosis, unspecified psychosis type F29 Active 46069351 Problem 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 Active 067894364 Problem Age-related incipient cataract of both eyes H25.093 Active 329990025 Problem Diabetes 1.5, 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 184954230 Problem Essential hypertension I10 Active 10104583 ALLERGIES No Information ENCOUNTERS Encounter Location Date Diagnosis [place] [id number] [address] July, [facility] [id number] [place] [address] Jun, 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 and terminal gauger current use of insulin Z79.4 [facility] [id number] [place] [address] May, [facility] [address] [address] Apr, [place] [id number] [place] [address] Apr, Diabetes E11.9 [place] [address] [address] Apr, Bipolar affective disorder, current episode mixed, current episode severity unspecified F31.60 [place] [address] [address] Apr, [facility] [address] [address] Mar, [place] [address] [address] Mar, Psychosis, unspecified psychosis type F29 and Bipolar affective disorder, current episode mixed, current episode severity unspecified F31.60 [place] [address] [address] Mar, [facility] [address] [address] Mar, Low back pain M54.5 and Arthritis of back M47.9 [place] [address] [address] Mar, [facility] [id number] [place] [address] Feb, Abdominal pain R10.9 and Constipation K59.00 [place] [address] [address] Feb, Vertigo R42 ; 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 ; Hyperglycemia R73.9 and Essential hypertension I10 [place] [address] [address] Jan, [place] [address] [id number] [place] [address] Dec, [place] [address] [address] Dec, [facility] [id number] [place] [address] Dec, Dizziness R42 and Diabetes 1.5, 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 [facility] [id number] [place] [address] Dec, [place] [address] [address] Dec, [facility] [id number] [place] [address] Dec, Psychosis, unspecified psychosis type F29 and Bipolar affective disorder, current episode mixed, current episode severity unspecified F31.60 [place] [address] [id number] [place] [address] Dec, [place] [address] [address] Dec, [place] [address] [id number] [place] [address] Dec, 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 ; terminal gauger current use of insulin Z79.4 and Hyperglycemia R73.9 [facility] [id number] [place] [address] Oct, [place] [address] [id number] [place] [address] Oct, [place] [address] [id number] [place] [address] Oct, [place] [address] [id number] [place] [address] Sep, [facility] [id number] [place] [address] Aug, Upper respiratory tract infection, unspecified type J06.9 ; Chronic idiopathic constipation K59.04 ; Fluid level behind tympanic membrane of both ears H65.93 and Abdominal pain R10.9 [facility] [id number] [place] [address] July, Diabetes E11.9 [facility] [address] [address] Jun, Dehydration E86.0 ; Diabetes E11.9 and Hyperglycemia R73.9 [place] [address] [address] Jun, [place] [address] [address] Jun, Vertigo R42 ; Syncope, unspecified syncope type R55 ; Diabetes E11.9 and Hyperglycemia R73.9 [place] [address] [id number] [place] [address] May, Psychosis, unspecified psychosis type F29 and Bipolar affective disorder, current episode mixed, current episode severity unspecified F31.60 [place] [address] [id number] [place] [address] May, [place] [address] [address] [id number] [place] [address] May, Diabetes E11.9 [facility] [address] [id number] [place] [id number] Apr, Dental examination Z01.20 and Dental caries K02.9 [place] [address] [id number] [place] [address] Apr, Dental examination Z01.20 and Dental abscess K04.7 [place] [address] [id number] [place] [address] Mar, Psychosis, unspecified psychosis type F29 and Bipolar affective disorder, current episode mixed, current episode severity unspecified F31.60 [place] [address] [place] [id number] [place] [address] Mar, [facility] [id number] [place] [address] Feb, [facility] [id number] [place] [address] Feb, Left wrist pain M25.532 [facility] [id number] [place] [address] Jan, [place] [address] [address] [id number] [place] [address] Jan, Psychosis, unspecified psychosis type F29 and Bipolar affective disorder, current episode mixed, current episode severity unspecified F31.60 [place] [address] [id number] [place] [address] Jan, Diabetes E11.9 [facility] [place] [id number] [place] [address] Jan, Left wrist pain M25.532 [place] [address] [address] [id number] [place] [address] Dec, Psychosis, unspecified psychosis type F29 and Bipolar affective disorder, current episode mixed, current episode severity unspecified F31.60 [place] [address] [id number] [place] [address] Dec, Syncope, unspecified syncope type R55 ; Vertigo R42 ; Diabetes E11.9 ; Psychosis, unspecified psychosis type F29 and Fall, initial encounter W19.XXXA [place] [id number] [place] [address] Dec, Diabetes E11.9 ; Neck pain M54.2 and Vertigo R42 [place] [address] [place] [address] [id number] [place] [address] Nov, [facility] [id number] [place] [address] Nov, [place] [id number] [place] [address] Nov, [place] [address] [id number] [address] 06 Nov, 2016 Diabetes E11.9 [facility] [address], [place] [address] 05 Nov, 2016 Diabetes E11.9 [facility] [address], [place] [address] Oct, [facility] [id number] [id number] Oct, [facility] [address], [place] [address] Oct, [facility] [address], [place] [address] Oct, Bipolar affective disorder, current episode mixed, current episode severity unspecified F31.60 [facility] [address] [id number] Sep, [facility] [address], [place] [address] Sep, Acute maxillary sinusitis, recurrence not specified J01.00 [facility] [address], [place] [address] Sep, Bipolar affective disorder, current episode mixed, current episode severity unspecified F31.60 [facility] [address], [place] [address] Sep, Diabetes E11.9 [facility] [address], [place] [address] July, Diabetes E11.9 [facility] [address], [place] [address] July, Diabetes E11.9 [facility] [address], [place] [address] Jun, [facility] [address], [place] [address] May, Bipolar affective disorder, current episode mixed, current episode severity unspecified F31.60 [facility] [id number] [place] [address] May, Acute non-recurrent maxillary sinusitis J01.00 [facility] [id number] [place] [address] 10 Apr, 2016 Psychosis, unspecified psychosis type F29 and Bipolar affective disorder, current episode mixed, current episode severity unspecified F31.60 [facility] [id number] [place] [address] Apr, Dysuria R30.0 ; Other viral agents as the cause of diseases classified elsewhere B97.89 and Acute upper respiratory infection, unspecified J06.9 [place] [address] [id number] [place] [address] Mar, Diabetes E11.9 ; Urine leukocytes R82.99 and Psychosis, unspecified psychosis type F29 [place] [address] [place] [id number] [place] [address] Mar, Diabetes E11.9 [place] [address] [place] [id number] [place] [address] Feb, [place] [address] [place] [id number] [place] [address] Jan, [place] [address] [place] [id number] [place] [address] Dec, Psychosis, unspecified psychosis type F29 [facility] [id number] [place] [address] Dec, [facility] [id number] [place] [address] Dec, [facility] [id number] [place] [address] Dec, Psychosis, unspecified psychosis type F29 [place] [address] [place] [address] Nov, Schizoaffective disorder, unspecified type F25.9 [facility] [id number] [place] [address] Oct, [facility] [id number] [place] [address] Oct, Conjunctivitis of right eye, unspecified conjunctivitis type H10.9 [facility] [id number] [place] [address] Aug, [facility] [id number] [place] [id number] Jun, Encounter for dental examination Z01.20 [facility] [id number] [place] [address] Jun, Diabetes E11.9 and Bipolar affect, depressed F31.30 [facility] [id number] [place] [address] Jun, Other bipolar disorder F31.89 [facility] [id number] [place] [address] Jun, [facility] [id number] [place] [address] Apr, [facility] [id number] [place] [address] Dec, [facility] [id number] [place] [address] Dec, [facility] [id number] [place] [address] Sep, [facility] [id number] [place] [address] Jun, [facility] [id number] [place] [address] Jun, [facility] [address] [id number] [address] Mar, [facility] [address] [id number] [place] [address] Mar, [facility] [place] [facility] [address] [id number] [place] [address] Nov, [facility] [place] [facility] [address] [id number] [place] [address] Nov, [facility] [place] [facility] [address] [id number] [place] [address] Sep, [facility] [place] [facility] [address] [id number] [place] [address] Sep, [facility] [place] [facility] [address] [id number] [place] [address] Sep, [facility] [place] [facility] [address] [id number] [place] [address] Sep, [facility] [place] [facility] [address] [id number] [place] [address] Sep, [facility] [place] [facility] [address] [id number] [place] [address] Aug, [facility] [place] [facility] [address] [id number] [place] [address] Aug, [facility] [place] [facility] [address] [id number] [place] [address] Aug, [facility] [place] [facility] [address] [id number] [place] [address] Aug, [facility] [place] [facility] [address] [id number] [place] [address] Aug, [facility] [place] [facility] [address] [id number] [place] [address] Aug, [facility] [place] [facility] [address] [id number] [place] [address] July, [facility] [place] [facility] [address] [id number] [place] [address] July, [facility] [place] [facility] [address] [id number] [place] [address] Jun, [facility] [place] [facility] [address] [id number] [place] [address] Jun, [facility] [place] [facility] [address] [id number] [place] [address] Jun, [facility] [place] [facility] [address] [id number] [place] [address] Jun, [facility] [place] [facility] [address] [id number] [place] [address] Jun, [facility] [place] [facility] [address] [id number] [place] [address] Jun, [facility] [place] [facility] [address] [id number] [place] [address] Jun, [facility] [place] [facility] [address] [id number] [place] [address] Jun, [facility] [place] [facility] [address] [id number] [place] [address] May, [facility] [place] [facility] [address] [id number] [place] [address] May, [facility] [place] [facility] [address] [id number] [place] [address] May, [facility] [place] [facility] [address] [id number] [place] [address] May, [facility] [place] [facility] [address] [id number] [place] [address] May, [facility] [place] [facility] [address] [id number] [place] [address] May, [facility] [place] [facility] [address] [id number] [address] May, [facility] [address] [id number] [place] [address] May, [facility] [place] [facility] [address] [id number] [place] [address] May, [facility] [place] [facility] [address] [id number] [place] [address] Apr, [facility] [place] [facility] [address] [id number] [place] [address] Apr, [facility] [place] [facility] [address] [id number] [place] [address] Mar, [facility] [place] [facility] [address] [id number] [place] [address] Mar, [facility] [address] [id number] [place] [address] Feb, [facility] [place] [facility] [address] [id number] [place] [address] Feb, [facility] [place] [facility] [address] [id number] [place] [address] Nov, [facility] [place] [facility] [address] [id number] [place] [address] Nov, [facility] [place] [facility] [address] [id number] [place] [address] Oct, [facility] [place] [facility] [address] [id number] [address] Oct, [facility] [place] [facility] [address] [id number] [place] [address] Oct, [facility] [place] [facility] [address] [id number] [place] [address] Oct, [facility] [place] [facility] [address] [id number] [place] [address] Oct, [facility] [place] [facility] [address] [id number] [place] [address] 23 Sep, 2012 [facility] [place] [facility] [address] [id number] [place] [address] Sep, [facility] [place] [facility] [address] [id number] [place] [address] Sep, [facility] [place] [facility] [address] [id number] [place] [address] Sep, [facility] [place] [facility] [address] [id number] [place] [address] Aug, [facility] [place] [facility] [address] [id number] [place] [address] Aug, [facility] [place] [facility] [address] [id number] [place] [address] Aug, [facility] [place] [facility] [address] [id number] [place] [address] Aug, [facility] [place] [facility] [address] [id number] [place] [address] Jun, [facility] [place] [facility] [address] [id number] [place] [address] Jun, [facility] [place] [facility] [address] [id number] [place] [address] Jun, [facility] [place] [facility] [address] [id number] [place] [address] 17 Jun, 2012 [facility] [place] [facility] [address] [id number] [place] [address] 21 May, 2012 [facility] [place] [facility] [address] [id number] [place] [address] 18 May, 2012 [facility] [place] [facility] [address] [id number] [place] [address] 18 May, 2012 [facility] [place] [facility] [address] [id number] [place] [address] 13 May, 2012 [facility] [address] [id number] [place] [address] 11 May, 2012 [facility] [place] [facility] [address] [id number] [place] [address] 04 May, 2012 [facility] [address] [id number] [place] [address] 21 Apr, 2012 [facility] [place] [facility] [address] [id number] [place] [address] 20 Apr, 2012 [facility] [address] [id number] [place] [address] Apr, [facility] [address] [id number] [place] [address] Apr, [facility] [address] [id number] [place] [address] Apr, [facility] [address] [id number] [place] [address] Feb, [facility] [address] [id number] [place] [address] Feb, [facility] [place] [facility] [address] [id number] [place] [address] Feb, [facility] [address] [id number] [place] [address] Feb, [facility] [place] [facility] [address] [id number] [place] [address] Feb, [facility] [place] [facility] [address] [id number] [place] [address] Feb, [facility] [place] [facility] [address] [facility] [id number] [place] [address] Feb, [facility] [place] [facility] [address] [id number] [place] [address] Feb, [facility] [place] [facility] [address] [id number] [place] [address] 14 Feb, 2012 [facility] [address] [id number] [place] [address] 14 Feb, 2012 [facility] [address] [id number] [place] [address] 13 Feb, 2012 [facility] [address] [id number] [place] [address] 13 Feb, 2012 [facility] [address] [id number] [place] [address] 12 Feb, 2012 [facility] [address] [id number] [place] [address] 12 Feb, 2012 [facility] [address] [id number] [place] [address] 12 Feb, 2012 [facility] [address] [id number] [place] [address] 12 Feb, 2012 [facility] [address] [id number] [place] [address] 12 Feb, 2012 [facility] [address] [id number] [place] [address] Feb, [facility] [address] [id number] [place] [address] Feb, [facility] [address] [id number] [place] [address] Feb, [facility] [address] [id number] [place] [address] Feb, [facility] [place] [facility] [address] [id number] [place] [address] Feb, [facility] [address] [id number] [place] [address] Feb, [facility] [address] [id number] [place] [address] Feb, [facility] [place] [facility] [address] [id number] [place] [address] Feb, [facility] [place] [facility] [address] [id number] [place] [address] Feb, [facility] [place] [facility] [address] [id number] [place] [address] Jan, [facility] [place] [facility] [address] [id number] [place] [address] Jan, [facility] [place] [facility] [address] [id number] [place] [address] Dec, [facility] [place] [facility] [address] [id number] [place] [address] Dec, [facility] [place] [facility] [address] [id number] [place] [address] Dec, [facility] [place] [facility] [address] [id number] [place] [address] Dec, [facility] [place] [facility] [address] [id number] [place] [address] Nov, [facility] [place] [facility] [address] [id number] [place] [address] Nov, [facility] [place] [facility] [address] [id number] [place] [address] Nov, [facility] [place] [facility] [address] [id number] [place] [address] Nov, [facility] [place] [facility] [address] [id number] [place] [address] Oct, [facility] [place] [facility] [address] [id number] [place] [address] Oct, [facility] [place] [facility] [address] [id number] [place] [address] Sep, [facility] [place] [facility] [address] [id number] [place] [address] 17 Sep, 2011 [facility] [address] [id number] [place] [address] Sep, [facility] [place] [facility] [address] [id number] [place] [address] Aug, [facility] [place] [facility] [address] [id number] [place] [address] Aug, [facility] [place] [facility] [address] [id number] [place] [address] 14 Aug, 2011 [facility] [place] [facility] [address] [id number] [place] [address] Aug, [facility] [place] [facility] [address] [id number] [place] [address] Aug, [facility] [address] [id number] [place] [address] July, [facility] [place] [facility] [address] [id number] [place] [address] July, [facility] [place] [facility] [address] [id number] [place] [address] July, [facility] [place] [facility] [address] [id number] [place] [address] July, [facility] [place] [facility] [address] [id number] [place] [address] July, [facility] [place] [facility] [address] [id number] [place] [address] Jun, [facility] [place] [facility] [address] [id number] [place] [address] May, [facility] [place] [facility] [address] [id number] [place] [address] 16 Apr, 2011 [facility] [place] [facility] [address] [id number] [place] [address] 13 Apr, 2011 [facility] [place] [facility] [address] [id number] [place] [address] Apr, [facility] [address] [id number] [place] [address] Mar, [facility] [address] [id number] [place] [address] Mar, [facility] [address] [id number] [place] [address] Mar, [facility] [address] [id number] [place] [address] Mar, [facility] [address] [id number] [place] [address] Mar, [facility] [address] [id number] [place] [address] Mar, [facility] [address] [id number] [place] [address] Mar, [facility] [address] [id number] [place] [address] Mar, [facility] [address] [id number] [place] [address] Feb, [facility] [address] [id number] [place] [address] Feb, [facility] [address] [id number] [place] [address] Feb, [facility] [address] [id number] [place] [address] Feb, [facility] [place] [facility] [address] [id number] [place] [address] Feb, [facility] [address] [id number] [place] [address] Jan, [facility] [address] [id number] [place] [address] Jan, [facility] [place] [facility] [address] [id number] [place] [address] Jan, [facility] [place] [facility] [address] [id number] [place] [address] Jan, [facility] [place] [facility] [address] [id number] [place] [address] 14 Dec, 2010 [facility] [place] [facility] [address] [id number] [place] [address] 14 Dec, 2010 [facility] [place] [facility] [address] [id number] [place] [address] Sep, [facility] [place] [facility] [address] [id number] [place] [address] July, [facility] [place] [facility] [address] [id number] [place] [address] Apr, [facility] [place] [facility] [address] [id number] [place] [address] Mar, [facility] [place] [facility] [address] [id number] [place] [address] Feb, [facility] [place] [facility] [address] [id number] [place] [address] Feb, [facility] [place] [facility] [address] [id number] [place] [address] Feb, [facility] [place] [facility] [address] [id number] [place] [address] Feb, [facility] [place] [facility] [address] [id number] [place] [address] 15 Feb, 2010 [facility] [place] [facility] [address] [id number] [place] [address] Feb, [facility] [place] [facility] [address] [id number] [place] [address] Feb, [facility] [place] [facility] [address] [facility] [id number] [place] [address] Dec, [facility] [address] [facility] [id number] [place] [address] Jan, [facility] [address] [facility] [id number] [place] [address] Apr, IMMUNIZATIONS No Known Immunizations SOCIAL HISTORY Never Assessed REASON FOR VISIT EMR-[facility] PLAN OF CARE VITAL SIGNS MEDICATIONS Unknown [...] Hospitalization History Hyperglycemia 2012 Hospitalization History [facility] 11/28/2015-12/04/2015 2016 Hospitalization History Schizophrenia 09/26/16 Hospitalization History AMS, UTI, hyponatremia-[facility] 10/21/16 Hospitalization History stent placed 02/02/17 Hospitalization History stent placed 02/2017 Hospitalization History [facility]- Syncope, Dehydration and Hypotension. 06/08/2017
--- OUTSIDE RECORDS SUMMARY | 2018-09-05 12:41 | XMS REPORT ---
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.10 Active 0035698494212 Problem Chronic idiopathic constipation K59.04 Active 96033775 Problem 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 608131695 Problem Constipation K59.00 Active 27132998 Problem Bipolar affective disorder, current episode mixed, current episode severity unspecified F31.60 Active 407189691 Problem Arthritis of back M47.9 Active 44540822 Problem Psychosis, unspecified psychosis type F29 Active 54216870 Problem 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 Active 529579794 Problem Age-related incipient cataract of both eyes H25.093 Active 589071809 Problem Diabetes 1.5, 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 389320670 Problem Essential hypertension I10 Active 14390281 ALLERGIES No Information ENCOUNTERS Encounter Location Date Diagnosis [place] [id number], [place] [address] July, [facility] [id number] [place] [address] Jun, 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 and 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 [facility] [address] [place] [address] May, [facility] [address], [place] [address] Apr, [place] [id number] [place] [address] Apr, Diabetes E11.9 [place] [address] [address] Apr, Bipolar affective disorder, current episode mixed, current episode severity unspecified F31.60 [place] [address] [address] Apr, [facility] [address] [address] Mar, [place] [address] [address] Mar, Psychosis, unspecified psychosis type F29 and Bipolar affective disorder, current episode mixed, current episode severity unspecified F31.60 [place] [address] [address] Mar, [facility] [address] [address] Mar, Low back pain M54.5 and Arthritis of back M47.9 [place] [address] [address] Mar, [facility] [id number] [place] [address] Feb, Abdominal pain R10.9 and Constipation K59.00 [place] [address] [address] Feb, Vertigo R42 ; 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 ; Hyperglycemia R73.9 and Essential hypertension I10 [place] [address] [address] Jan, [place] [id number] [place] [address] Dec, [place] [address] [address] Dec, [facility] [id number] [place] [address] Dec, Dizziness R42 and Diabetes 1.5, 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 [facility] [id number] [place] [address] Dec, [place] [address] [address] Dec, [facility] [id number] [place] [address] Dec, Psychosis, unspecified psychosis type F29 and Bipolar affective disorder, current episode mixed, current episode severity unspecified F31.60 [place] [id number] [place] [address] Dec, [place] [address] [address] Dec, [place] [id number] [place] [address] Dec, 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 ; 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 and Hyperglycemia R73.9 [facility] [id number] [place] [address] Oct, [place] [id number] [place] [address] Oct, [place] [id number] [place] [address] Oct, [place] [id number] [place] [address] Sep, [facility] [id number] [place] [address] Aug, Upper respiratory tract infection, unspecified type J06.9 ; Chronic idiopathic constipation K59.04 ; Fluid level behind tympanic membrane of both ears H65.93 and Abdominal pain R10.9 [facility] [id number] [place] [address] July, Diabetes E11.9 [facility] [address] [address] Jun, Dehydration E86.0 ; Diabetes E11.9 and Hyperglycemia R73.9 [place] [address] [address] Jun, [place] [address] [address] Jun, Vertigo R42 ; Syncope, unspecified syncope type R55 ; Diabetes E11.9 and Hyperglycemia R73.9 [place] [id number] [place] [address] May, Psychosis, unspecified psychosis type F29 and Bipolar affective disorder, current episode mixed, current episode severity unspecified F31.60 [place] [id number] [place] [address] May, [place] [id number] [place] [address] May, Diabetes E11.9 [facility] [id number] [place] [id number] Apr, Dental examination Z01.20 and Dental caries K02.9 [place] [id number] [place] [address] Apr, Dental examination Z01.20 and Dental abscess K04.7 [place] [id number] [place] [address] Mar, Psychosis, unspecified psychosis type F29 and Bipolar affective disorder, current episode mixed, current episode severity unspecified F31.60 [place] [id number] [place] [address] Mar, [facility] [id number] [place] [address] Feb, [facility] [id number] [place] [address] Feb, Left wrist pain M25.532 [facility] [id number] [place] [address] Jan, [place] [id number] [place] [address] Jan, Psychosis, unspecified psychosis type F29 and Bipolar affective disorder, current episode mixed, current episode severity unspecified F31.60 [place] [id number] [place] [address] Jan, Diabetes E11.9 [facility] [place] [id number] [place] [address] Jan, Left wrist pain M25.532 [place] [id number] [place] [address] Dec, Psychosis, unspecified psychosis type F29 and Bipolar affective disorder, current episode mixed, current episode severity unspecified F31.60 [place] [id number] [place] [address] Dec, Syncope, unspecified syncope type R55 ; Vertigo R42 ; Diabetes E11.9 ; Psychosis, unspecified psychosis type F29 and Fall, initial encounter W19.XXXA [place] [id number] [place] [address] Dec, Diabetes E11.9 ; Neck pain M54.2 and Vertigo R42 [place] [id number] [place] [address] Nov, [facility] [id number] [place] [address] Nov, [place] [address] [place] [address] Nov, [place] [id number] [address] 06 Nov, 2016 Diabetes E11.9 [facility] [address], [place] [address] Nov, Diabetes E11.9 [facility] [address], [place] [address] Oct, [facility] [id number] [id number] Oct, [facility] [address], [place] [address] Oct, [facility] [address], [place] [address] Oct, Bipolar affective disorder, current episode mixed, current episode severity unspecified F31.60 [facility] [id number] [id number] Sep, [facility] [address], [place] [address] Sep, Bipolar affective disorder, current episode mixed, current episode severity unspecified F31.60 [facility] [address], [place] [address] Sep, Acute maxillary sinusitis, recurrence not specified J01.00 [facility] [id number] [address] Sep, Diabetes E11.9 [facility] [id number] [address] July, Diabetes E11.9 [facility] [id number] [address] July, Diabetes E11.9 [facility] [address], [place] [address] Jun, [facility] [id number] [address] May, Bipolar affective disorder, current episode mixed, current episode severity unspecified F31.60 [facility] [id number] [place] [address] May, Acute non-recurrent maxillary sinusitis J01.00 [facility] [id number] [place] [address] 10 Apr, 2016 Psychosis, unspecified psychosis type F29 and Bipolar affective disorder, current episode mixed, current episode severity unspecified F31.60 [facility] [id number] [place] [address] Apr, Dysuria R30.0 ; Other viral agents as the cause of diseases classified elsewhere B97.89 and Acute upper respiratory infection, unspecified J06.9 [place] [id number] [place] [address] Mar, Diabetes E11.9 ; Urine leukocytes R82.99 and Psychosis, unspecified psychosis type F29 [place] [id number] [place] [address] Mar, Diabetes E11.9 [place] [id number] [place] [address] Feb, [place] [id number] [place] [address] Jan, [place] [id number] [place] [address] Dec, Psychosis, unspecified psychosis type F29 [facility] [id number] [place] [address] Dec, [facility] [id number] [place] [address] Dec, [facility] [id number] [place] [address] Dec, Psychosis, unspecified psychosis type F29 [place] [address] [place] [address] Nov, Schizoaffective disorder, unspecified type F25.9 [facility] [id number] [place] [address] Oct, [facility] [id number] [place] [address] Oct, Conjunctivitis of right eye, unspecified conjunctivitis type H10.9 [facility] [id number] [place] [address] Aug, [facility] [id number] [place] [id number] Jun, Encounter for dental examination Z01.20 [facility] [id number] [place] [address] Jun, Diabetes E11.9 and Bipolar affect, depressed F31.30 [facility] [id number] [place] [address] Jun, Other bipolar disorder F31.89 [facility] [id number] [place] [address] Jun, [facility] [id number] [place] [address] Apr, [facility] [id number] [place] [address] Dec, [facility] [id number] [place] [address] Dec, [facility] [id number] [place] [address] Sep, [facility] [id number] [place] [address] Jun, [facility] [id number] [place] [address] Jun, [facility] [id number] [address] Mar, [facility] [address] [id number] [place] [address] Mar, [facility] [place] [facility] [address] [id number] [place] [address] Nov, [facility] [place] [facility] [address] [id number] [place] [address] Nov, [facility] [place] [facility] [address] [id number] [place] [address] Sep, [facility] [place] [facility] [address] [id number] [place] [address] Sep, [facility] [place] [facility] [address] [id number] [place] [address] Sep, [facility] [place] [facility] [address] [id number] [place] [address] Sep, [facility] [place] [facility] [address] [id number] [place] [address] Sep, [facility] [place] [facility] [address] [id number] [place] [address] Aug, [facility] [place] [facility] [address] [id number] [place] [address] Aug, [facility] [place] [facility] [address] [id number] [place] [address] Aug, [facility] [place] [facility] [address] [id number] [place] [address] Aug, [facility] [place] [facility] [address] [id number] [place] [address] Aug, [facility] [place] [facility] [address] [id number] [place] [address] Aug, [facility] [place] [facility] [address] [id number] [place] [address] July, [facility] [place] [facility] [address] [id number] [place] [address] July, [facility] [place] [facility] [address] [id number] [place] [address] Jun, [facility] [place] [facility] [address] [id number] [place] [address] Jun, [facility] [place] [facility] [address] [id number] [place] [address] Jun, [facility] [place] [facility] [address] [id number] [place] [address] Jun, [facility] [place] [facility] [address] [id number] [place] [address] Jun, [facility] [place] [facility] [address] [id number] [place] [address] Jun, [facility] [place] [facility] [address] [id number] [place] [address] Jun, [facility] [place] [facility] [address] [id number] [place] [address] Jun, [facility] [place] [facility] [address] [id number] [place] [address] May, [facility] [place] [facility] [address] [id number] [place] [address] May, [facility] [place] [facility] [address] [id number] [place] [address] May, [facility] [place] [facility] [address] [id number] [place] [address] May, [facility] [place] [facility] [address] [id number] [place] [address] May, [facility] [place] [facility] [address] [id number] [place] [address] May, [facility] [place] [facility] [address] [id number], [place] [address] May, [facility] [address] [id number] [place] [address] May, [facility] [place] [facility] [address] [id number] [place] [address] May, [facility] [place] [facility] [address] [id number] [place] [address] Apr, [facility] [place] [facility] [address] [id number] [place] [address] Apr, [facility] [place] [facility] [address] [id number] [place] [address] Mar, [facility] [place] [facility] [address] [id number] [place] [address] Mar, [facility] [address] [id number] [place] [address] Feb, [facility] [place] [facility] [address] [id number] [place] [address] Feb, [facility] [place] [facility] [address] [id number] [place] [address] Nov, [facility] [place] [facility] [address] [id number] [place] [address] Nov, [facility] [place] [facility] [address] [id number] [place] [address] Oct, [facility] [place] [facility] [address] [id number], [place] [address] Oct, [facility] [place] [facility] [address] [id number] [place] [address] Oct, [facility] [place] [facility] [address] [id number] [place] [address] Oct, [facility] [place] [facility] [address] [id number] [place] [address] Oct, [facility] [place] [facility] [address] [id number] [place] [address] 23 Sep, 2012 [facility] [place] [facility] [address] [id number] [place] [address] Sep, [facility] [place] [facility] [address] [id number] [place] [address] Sep, [facility] [place] [facility] [address] [id number] [place] [address] Sep, [facility] [place] [facility] [address] [id number] [place] [address] Aug, [facility] [place] [facility] [address] [id number] [place] [address] Aug, [facility] [place] [facility] [address] [id number] [place] [address] Aug, [facility] [place] [facility] [address] [id number] [place] [address] Aug, [facility] [place] [facility] [address] [id number] [place] [address] Jun, [facility] [place] [facility] [address] [id number] [place] [address] Jun, [facility] [place] [facility] [address] [id number] [place] [address] Jun, [facility] [place] [facility] [address] [id number] [place] [address] 17 Jun, 2012 [facility] [place] [facility] [address] [id number] [place] [address] 21 May, 2012 [facility] [place] [facility] [address] [id number] [place] [address] 18 May, 2012 [facility] [place] [facility] [address] [id number] [place] [address] 18 May, 2012 [facility] [place] [facility] [address] [id number] [place] [address] 13 May, 2012 [facility] [address] [id number] [place] [address] 11 May, 2012 [facility] [place] [facility] [address] [id number] [place] [address] 04 May, 2012 [facility] [address] [id number] [place] [address] 21 Apr, 2012 [facility] [place] [facility] [address] [id number] [place] [address] 20 Apr, 2012 [facility] [address] [id number] [place] [address] Apr, [facility] [address] [id number] [place] [address] Apr, [facility] [address] [id number] [place] [address] Apr, [facility] [address] [id number] [place] [address] Feb, [facility] [address] [id number] [place] [address] Feb, [facility] [place] [facility] [address] [id number] [place] [address] Feb, [facility] [address] [id number] [place] [address] Feb, [facility] [place] [facility] [address] [id number] [place] [address] Feb, [facility] [place] [facility] [address] [id number] [place] [address] Feb, [facility] [place] [facility] [address] [facility] [id number] [place] [address] Feb, [facility] [place] [facility] [address] [id number] [place] [address] Feb, [facility] [place] [facility] [address] [id number] [place] [address] 14 Feb, 2012 [facility] [address] [id number] [place] [address] 14 Feb, 2012 [facility] [address] [id number] [place] [address] 13 Feb, 2012 [facility] [address] [id number] [place] [address] 13 Feb, 2012 [facility] [address] [id number] [place] [address] 12 Feb, 2012 [facility] [address] [id number] [place] [address] 12 Feb, 2012 [facility] [address] [id number] [place] [address] 12 Feb, 2012 [facility] [address] [id number] [place] [address] 12 Feb, 2012 [facility] [address] [id number] [place] [address] 12 Feb, 2012 [facility] [address] [id number] [place] [address] Feb, [facility] [address] [id number] [place] [address] Feb, [facility] [address] [id number] [place] [address] Feb, [facility] [address] [id number] [place] [address] Feb, [facility] [place] [facility] [address] [id number] [place] [address] Feb, [facility] [address] [id number] [place] [address] Feb, [facility] [address] [id number] [place] [address] Feb, [facility] [place] [facility] [address] [id number] [place] [address] Feb, [facility] [place] [facility] [address] [id number] [place] [address] Feb, [facility] [place] [facility] [address] [id number] [place] [address] Jan, [facility] [place] [facility] [address] [id number] [place] [address] Jan, [facility] [place] [facility] [address] [id number] [place] [address] Dec, [facility] [place] [facility] [address] [id number] [place] [address] Dec, [facility] [place] [facility] [address] [id number] [place] [address] Dec, [facility] [place] [facility] [address] [id number] [place] [address] Dec, [facility] [place] [facility] [address] [id number] [place] [address] Nov, [facility] [place] [facility] [address] [id number] [place] [address] Nov, [facility] [place] [facility] [address] [id number] [place] [address] Nov, [facility] [place] [facility] [address] [id number] [place] [address] Nov, [facility] [place] [facility] [address] [id number] [place] [address] Oct, [facility] [place] [facility] [address] [id number] [place] [address] Oct, [facility] [place] [facility] [address] [id number] [place] [address] Sep, [facility] [place] [facility] [address] [id number] [place] [address] 17 Sep, 2011 [facility] [address] [id number] [place] [address] Sep, [facility] [place] [facility] [address] [id number] [place] [address] Aug, [facility] [place] [facility] [address] [id number] [place] [address] Aug, [facility] [place] [facility] [address] [id number] [place] [address] 14 Aug, 2011 [facility] [place] [facility] [address] [id number] [place] [address] Aug, [facility] [place] [facility] [address] [id number] [place] [address] Aug, [facility] [address] [id number] [place] [address] July, [facility] [place] [facility] [address] [id number] [place] [address] July, [facility] [place] [facility] [address] [id number] [place] [address] July, [facility] [place] [facility] [address] [id number] [place] [address] July, [facility] [place] [facility] [address] [id number] [place] [address] July, [facility] [place] [facility] [address] [id number] [place] [address] Jun, [facility] [place] [facility] [address] [id number] [place] [address] May, [facility] [place] [facility] [address] [id number] [place] [address] 16 Apr, 2011 [facility] [place] [facility] [address] [id number] [place] [address] 13 Apr, 2011 [facility] [place] [facility] [address] [id number] [place] [address] Apr, [facility] [address] [id number] [place] [address] Mar, [facility] [address] [id number] [place] [address] Mar, [facility] [address] [id number] [place] [address] Mar, [facility] [address] [id number] [place] [address] Mar, [facility] [address] [id number] [place] [address] Mar, [facility] [address] [id number] [place] [address] Mar, [facility] [address] [id number] [place] [address] Mar, [facility] [address] [id number] [place] [address] Mar, [facility] [address] [id number] [place] [address] Feb, [facility] [address] [id number] [place] [address] Feb, [facility] [address] [id number] [place] [address] Feb, [facility] [address] [id number] [place] [address] Feb, [facility] [place] [facility] [address] [id number] [place] [address] Feb, [facility] [address] [id number] [place] [address] Jan, [facility] [address] [id number] [place] [address] Jan, [facility] [place] [facility] [address] [id number] [place] [address] Jan, [facility] [place] [facility] [address] [id number] [place] [address] Jan, [facility] [place] [facility] [address] [id number] [place] [address] 14 Dec, 2010 [facility] [place] [facility] [address] [id number] [place] [address] 14 Dec, 2010 [facility] [place] [facility] [address] [id number] [place] [address] Sep, [facility] [place] [facility] [address] [id number] [place] [address] July, [facility] [place] [facility] [address] [id number] [place] [address] Apr, [facility] [place] [facility] [address] [id number] [place] [address] Mar, [facility] [place] [facility] [address] [id number] [place] [address] Feb, [facility] [place] [facility] [address] [id number] [place] [address] Feb, [facility] [place] [facility] [address] [id number] [place] [address] Feb, [facility] [place] [facility] [address] [id number] [place] [address] Feb, [facility] [place] [facility] [address] [id number] [place] [address] 15 Feb, 2010 [facility] [place] [facility] [address] [id number] [place] [address] Feb, [facility] [place] [facility] [address] [id number] [place] [address] Feb, [facility] [place] [facility] [address] [facility] [id number] [place] [address] Dec, [facility] [address] [facility] [id number] [place] [address] Jan, [facility] [address] [facility] [id number] [place] [address] Apr, IMMUNIZATIONS No Known Immunizations SOCIAL HISTORY Never Assessed REASON FOR VISIT EMR-[facility] PLAN OF CARE VITAL SIGNS MEDICATIONS Unknown [...] Hospitalization History Hyperglycemia 2012 Hospitalization History [facility] 11/28/2015-12/04/2015 2016 Hospitalization History Schizophrenia 09/26/16 Hospitalization History AMS, UTI, hyponatremia-[facility] 10/21/16 Hospitalization History stent placed 02/02/17 Hospitalization History stent placed 02/2017 Hospitalization History [facility]- Syncope, Dehydration and Hypotension. 06/08/2017
--- OUTSIDE RECORDS SUMMARY | 2018-09-05 12:41 | XMS REPORT ---
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 Active 0443351911487 Problem Chronic idiopathic constipation K59.04 Active 71527456 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 152554701 Problem Constipation K59.00 Active 81647158 Problem Bipolar affective disorder, current episode mixed, current episode severity unspecified F31.60 Active 903647051 Problem Arthritis of back M47.9 Active 96063198 Problem Psychosis, unspecified psychosis type F29 Active 25819908 Problem 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 Active 123018052 Problem Age-related incipient cataract of both eyes H25.093 Active 767004791 Problem Diabetes 1.5, 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 019594941 Problem Essential hypertension I10 Active 58563344 ALLERGIES No Information ENCOUNTERS Encounter Location Date Diagnosis [place] [id number] [address] July, [facility] [id number] [place] [address] Jun, 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 and 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 [facility] [id number] [place] [address] May, [facility] [address] [address] Apr, [place] [id number] [place] [address] Apr, Diabetes E11.9 [place] [address] [address] Apr, Bipolar affective disorder, current episode mixed, current episode severity unspecified F31.60 [place] [address] [address] Apr, [facility] [address] [address] Mar, [place] [address] [address] Mar, Psychosis, unspecified psychosis type F29 and Bipolar affective disorder, current episode mixed, current episode severity unspecified F31.60 [place] [address] [address] Mar, [facility] [address] [address] Mar, Low back pain M54.5 and Arthritis of back M47.9 [place] [address] [address] Mar, [facility] [id number] [place] [address] Feb, Abdominal pain R10.9 and Constipation K59.00 [place] [address] [address] Feb, Vertigo R42 ; 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 ; Hyperglycemia R73.9 and Essential hypertension I10 [place] [address] [address] Jan, [place] [id number] [place] [address] Dec, [place] [address] [address] Dec, [facility] [id number] [place] [address] Dec, Dizziness R42 and Diabetes 1.5, 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 [facility] [id number] [place] [address] Dec, [place] [address] [address] Dec, [facility] [id number] [place] [address] Dec, Psychosis, unspecified psychosis type F29 and Bipolar affective disorder, current episode mixed, current episode severity unspecified F31.60 [place] [id number] [place] [address] Dec, [place] [address] [address] Dec, [place] [id number] [place] [address] Dec, 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 ; 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 and Hyperglycemia R73.9 [facility] [id number] [place] [address] Oct, [place] [id number] [place] [address] Oct, [place] [id number] [place] [address] Oct, [place] [id number] [place] [address] Sep, [facility] [id number] [place] [address] Aug, Upper respiratory tract infection, unspecified type J06.9 ; Chronic idiopathic constipation K59.04 ; Fluid level behind tympanic membrane of both ears H65.93 and Abdominal pain R10.9 [facility] [id number] [place] [address] July, Diabetes E11.9 [facility] [address] [address] Jun, Dehydration E86.0 ; Diabetes E11.9 and Hyperglycemia R73.9 [place] [address] [address] Jun, [place] [address] [address] Jun, Vertigo R42 ; Syncope, unspecified syncope type R55 ; Diabetes E11.9 and Hyperglycemia R73.9 [place] [id number] [place] [address] May, Psychosis, unspecified psychosis type F29 and Bipolar affective disorder, current episode mixed, current episode severity unspecified F31.60 [place] [id number] [place] [address] May, [place] [id number] [place] [address] May, Diabetes E11.9 [facility] [id number] [place] [id number] Apr, Dental examination Z01.20 and Dental caries K02.9 [place] [id number] [place] [address] Apr, Dental examination Z01.20 and Dental abscess K04.7 [place] [id number] [place] [address] Mar, Psychosis, unspecified psychosis type F29 and Bipolar affective disorder, current episode mixed, current episode severity unspecified F31.60 [place] [id number] [place] [address] Mar, [facility] [id number] [place] [address] Feb, [facility] [id number] [place] [address] Feb, Left wrist pain M25.532 [facility] [id number] [place] [address] Jan, [place] [id number] [place] [address] Jan, Psychosis, unspecified psychosis type F29 and Bipolar affective disorder, current episode mixed, current episode severity unspecified F31.60 [place] [id number] [place] [address] Jan, Diabetes E11.9 [facility] [place] [id number] [place] [address] Jan, Left wrist pain M25.532 [place] [id number] [place] [address] Dec, Psychosis, unspecified psychosis type F29 and Bipolar affective disorder, current episode mixed, current episode severity unspecified F31.60 [place] [id number] [place] [address] Dec, Syncope, unspecified syncope type R55 ; Vertigo R42 ; Diabetes E11.9 ; Psychosis, unspecified psychosis type F29 and Fall, initial encounter W19.XXXA [place] [id number] [place] [address] Dec, Diabetes E11.9 ; Neck pain M54.2 and Vertigo R42 [place] [id number] [place] [address] Nov, [facility] [id number] [place] [address] Nov, [place] [id number] [place] [address] Nov, [place] [id number] [address] 06 Nov, 2016 Diabetes E11.9 [facility] [address] [address] Nov, Diabetes E11.9 [facility] [address] [address] Oct, [facility] [id number] [id number] Oct, [facility] [address] [address] Oct, [facility] [address] [address] Oct, Bipolar affective disorder, current episode mixed, current episode severity unspecified F31.60 [facility] [id number] [id number] Sep, [facility] [address] [address] Sep, Bipolar affective disorder, current episode mixed, current episode severity unspecified F31.60 [facility] [address] [address] Sep, Acute maxillary sinusitis, recurrence not specified J01.00 [facility] [id number] [address] Sep, Diabetes E11.9 [facility] [id number] [address] July, Diabetes E11.9 [facility] [id number] [address] July, Diabetes E11.9 [facility] [address] [address] Jun, [facility] [id number] [address] May, Bipolar affective disorder, current episode mixed, current episode severity unspecified F31.60 [facility] [id number] [place] [address] May, Acute non-recurrent maxillary sinusitis J01.00 [facility] [id number] [place] [address] 10 Apr, 2016 Psychosis, unspecified psychosis type F29 and Bipolar affective disorder, current episode mixed, current episode severity unspecified F31.60 [facility] [id number] [place] [address] Apr, Dysuria R30.0 ; Other viral agents as the cause of diseases classified elsewhere B97.89 and Acute upper respiratory infection, unspecified J06.9 [place] [id number] [place] [address] Mar, Diabetes E11.9 ; Urine leukocytes R82.99 and Psychosis, unspecified psychosis type F29 [place] [id number] [place] [address] Mar, Diabetes E11.9 [place] [id number] [place] [address] Feb, [place] [id number] [place] [address] Jan, [place] [id number] [place] [address] Dec, Psychosis, unspecified psychosis type F29 [facility] [id number] [place] [address] Dec, [facility] [id number] [place] [address] Dec, [facility] [id number] [place] [address] Dec, Psychosis, unspecified psychosis type F29 [place] [address] [place] [address] Nov, Schizoaffective disorder, unspecified type F25.9 [facility] [id number] [place] [address] Oct, [facility] [id number] [place] [address] Oct, Conjunctivitis of right eye, unspecified conjunctivitis type H10.9 [facility] [id number] [place] [address] Aug, [facility] [id number] [place] [id number] Jun, Encounter for dental examination Z01.20 [facility] [id number] [place] [address] Jun, Diabetes E11.9 and Bipolar affect, depressed F31.30 [facility] [id number] [place] [address] Jun, Other bipolar disorder F31.89 [facility] [id number] [place] [address] Jun, [facility] [id number] [place] [address] Apr, [facility] [id number] [place] [address] Dec, [facility] [id number] [place] [address] Dec, [facility] [id number] [place] [address] Sep, [facility] [id number] [place] [address] Jun, [facility] [id number] [place] [address] Jun, [facility] [id number] [place] [address] Mar, [facility] [address] [id number] [place] [address] Mar, [facility] [place] [facility] [address] [id number] [place] [address] Nov, [facility] [place] [facility] [address] [id number] [place] [address] Nov, [facility] [place] [facility] [address] [id number] [place] [address] Sep, [facility] [place] [facility] [address] [id number] [place] [address] Sep, [facility] [place] [facility] [address] [id number] [place] [address] Sep, [facility] [place] [facility] [address] [id number] [place] [address] Sep, [facility] [place] [facility] [address] [id number] [place] [address] Sep, [facility] [place] [facility] [address] [id number] [place] [address] Aug, [facility] [place] [facility] [address] [id number] [place] [address] Aug, [facility] [place] [facility] [address] [id number] [place] [address] Aug, [facility] [place] [facility] [address] [id number] [place] [address] Aug, [facility] [place] [facility] [address] [id number] [place] [address] Aug, [facility] [place] [facility] [address] [id number] [place] [address] Aug, [facility] [place] [facility] [address] [id number] [place] [address] July, [facility] [place] [facility] [address] [id number] [place] [address] July, [facility] [place] [facility] [address] [id number] [place] [address] Jun, [facility] [place] [facility] [address] [id number] [place] [address] Jun, [facility] [place] [facility] [address] [id number] [place] [address] Jun, [facility] [place] [facility] [address] [id number] [place] [address] Jun, [facility] [place] [facility] [address] [id number] [place] [address] Jun, [facility] [place] [facility] [address] [id number] [place] [address] Jun, [facility] [place] [facility] [address] [id number] [place] [address] Jun, [facility] [place] [facility] [address] [id number] [place] [address] Jun, [facility] [place] [facility] [address] [id number] [place] [address] May, [facility] [place] [facility] [address] [id number] [place] [address] May, [facility] [place] [facility] [address] [id number] [place] [address] May, [facility] [place] [facility] [address] [id number] [place] [address] May, [facility] [place] [facility] [address] [id number] [place] [address] May, [facility] [place] [facility] [address] [id number] [place] [address] May, [facility] [place] [facility] [address] [id number] [address] May, [facility] [address] [id number] [place] [address] May, [facility] [place] [facility] [address] [id number] [place] [address] May, [facility] [place] [facility] [address] [id number] [place] [address] Apr, [facility] [place] [facility] [address] [id number] [place] [address] Apr, [facility] [place] [facility] [address] [id number] [place] [address] Mar, [facility] [place] [facility] [address] [id number] [place] [address] Mar, [facility] [address] [id number] [place] [address] Feb, [facility] [place] [facility] [address] [id number] [place] [address] Feb, [facility] [place] [facility] [address] [id number] [place] [address] Nov, [facility] [place] [facility] [address] [id number] [place] [address] Nov, [facility] [place] [facility] [address] [id number] [place] [address] Oct, [facility] [place] [facility] [address] [id number] [address] Oct, [facility] [place] [facility] [address] [id number] [place] [address] Oct, [facility] [place] [facility] [address] [id number] [place] [address] Oct, [facility] [place] [facility] [address] [id number] [place] [address] Oct, [facility] [place] [facility] [address] [id number] [place] [address] 23 Sep, 2012 [facility] [place] [facility] [address] [id number] [place] [address] Sep, [facility] [place] [facility] [address] [id number] [place] [address] Sep, [facility] [place] [facility] [address] [id number] [place] [address] Sep, [facility] [place] [facility] [address] [id number] [place] [address] Aug, [facility] [place] [facility] [address] [id number] [place] [address] Aug, [facility] [place] [facility] [address] [id number] [place] [address] Aug, [facility] [place] [facility] [address] [id number] [place] [address] Aug, [facility] [place] [facility] [address] [id number] [place] [address] Jun, [facility] [place] [facility] [address] [id number] [place] [address] Jun, [facility] [place] [facility] [address] [id number] [place] [address] Jun, [facility] [place] [facility] [address] [id number] [place] [address] 17 Jun, 2012 [facility] [place] [facility] [address] [id number] [place] [address] 21 May, 2012 [facility] [place] [facility] [address] [id number] [place] [address] 18 May, 2012 [facility] [place] [facility] [address] [id number] [place] [address] 18 May, 2012 [facility] [place] [facility] [address] [id number] [place] [address] 13 May, 2012 [facility] [address] [id number] [place] [address] 11 May, 2012 [facility] [place] [facility] [address] [id number] [place] [address] 04 May, 2012 [facility] [address] [id number] [place] [address] 21 Apr, 2012 [facility] [place] [facility] [address] [id number] [place] [address] 20 Apr, 2012 [facility] [address] [id number] [place] [address] Apr, [facility] [address] [id number] [place] [address] Apr, [facility] [address] [id number] [place] [address] Apr, [facility] [address] [id number] [place] [address] Feb, [facility] [address] [id number] [place] [address] Feb, [facility] [place] [facility] [address] [id number] [place] [address] Feb, [facility] [address] [id number] [place] [address] Feb, [facility] [place] [facility] [address] [id number] [place] [address] Feb, [facility] [place] [facility] [address] [id number] [place] [address] Feb, [facility] [place] [facility] [address] [facility] [id number] [place] [address] Feb, [facility] [place] [facility] [address] [id number] [place] [address] Feb, [facility] [place] [facility] [address] [id number] [place] [address] 14 Feb, 2012 [facility] [address] [id number] [place] [address] 14 Feb, 2012 [facility] [address] [id number] [place] [address] 13 Feb, 2012 [facility] [address] [id number] [place] [address] 13 Feb, 2012 [facility] [address] [id number] [place] [address] 12 Feb, 2012 [facility] [address] [id number] [place] [address] 12 Feb, 2012 [facility] [address] [id number] [place] [address] 12 Feb, 2012 [facility] [address] [id number] [place] [address] 12 Feb, 2012 [facility] [address] [id number] [place] [address] 12 Feb, 2012 [facility] [address] [id number] [place] [address] Feb, [facility] [address] [id number] [place] [address] Feb, [facility] [address] [id number] [place] [address] Feb, [facility] [address] [id number] [place] [address] Feb, [facility] [place] [facility] [address] [id number] [place] [address] Feb, [facility] [address] [id number] [place] [address] Feb, [facility] [address] [id number] [place] [address] Feb, [facility] [place] [facility] [address] [id number] [place] [address] Feb, [facility] [place] [facility] [address] [id number] [place] [address] Feb, [facility] [place] [facility] [address] [id number] [place] [address] Jan, [facility] [place] [facility] [address] [id number] [place] [address] Jan, [facility] [place] [facility] [address] [id number] [place] [address] Dec, [facility] [place] [facility] [address] [id number] [place] [address] Dec, [facility] [place] [facility] [address] [id number] [place] [address] Dec, [facility] [place] [facility] [address] [id number] [place] [address] Dec, [facility] [place] [facility] [address] [id number] [place] [address] Nov, [facility] [place] [facility] [address] [id number] [place] [address] Nov, [facility] [place] [facility] [address] [id number] [place] [address] Nov, [facility] [place] [facility] [address] [id number] [place] [address] Nov, [facility] [place] [facility] [address] [id number] [place] [address] Oct, [facility] [place] [facility] [address] [id number] [place] [address] Oct, [facility] [place] [facility] [address] [id number] [place] [address] Sep, [facility] [place] [facility] [address] [id number] [place] [address] 17 Sep, 2011 [facility] [address] [id number] [place] [address] Sep, [facility] [place] [facility] [address] [id number] [place] [address] Aug, [facility] [place] [facility] [address] [id number] [place] [address] Aug, [facility] [place] [facility] [address] [id number] [place] [address] 14 Aug, 2011 [facility] [place] [facility] [address] [id number] [place] [address] Aug, [facility] [place] [facility] [address] [id number] [place] [address] Aug, [facility] [address] [id number] [place] [address] July, [facility] [place] [facility] [address] [id number] [place] [address] July, [facility] [place] [facility] [address] [id number] [place] [address] July, [facility] [place] [facility] [address] [id number] [place] [address] July, [facility] [place] [facility] [address] [id number] [place] [address] July, [facility] [place] [facility] [address] [id number] [place] [address] Jun, [facility] [place] [facility] [address] [id number] [place] [address] May, [facility] [place] [facility] [address] [id number] [place] [address] 16 Apr, 2011 [facility] [place] [facility] [address] [id number] [place] [address] 13 Apr, 2011 [facility] [place] [facility] [address] [id number] [place] [address] Apr, [facility] [address] [id number] [place] [address] Mar, [facility] [address] [id number] [place] [address] Mar, [facility] [address] [id number] [place] [address] Mar, [facility] [address] [id number] [place] [address] Mar, [facility] [address] [id number] [place] [address] Mar, [facility] [address] [id number] [place] [address] Mar, [facility] [address] [id number] [place] [address] Mar, [facility] [address] [id number] [place] [address] Mar, [facility] [address] [id number] [place] [address] Feb, [facility] [address] [id number] [place] [address] Feb, [facility] [address] [id number] [place] [address] Feb, [facility] [address] [id number] [place] [address] Feb, [facility] [place] [facility] [address] [id number] [place] [address] Feb, [facility] [address] [id number] [place] [address] Jan, [facility] [address] [id number] [place] [address] Jan, [facility] [place] [facility] [address] [id number] [place] [address] Jan, [facility] [place] [facility] [address] [id number] [place] [address] Jan, [facility] [place] [facility] [address] [id number] [place] [address] 14 Dec, 2010 [facility] [place] [facility] [address] [id number] [place] [address] 14 Dec, 2010 [facility] [place] [facility] [address] [id number] [place] [address] Sep, [facility] [place] [facility] [address] [id number] [place] [address] July, [facility] [place] [facility] [address] [id number] [place] [address] Apr, [facility] [place] [facility] [address] [id number] [place] [address] Mar, [facility] [place] [facility] [address] [id number] [place] [address] Feb, [facility] [place] [facility] [address] [id number] [place] [address] Feb, [facility] [place] [facility] [address] [id number] [place] [address] Feb, [facility] [place] [facility] [address] [id number] [place] [address] Feb, [facility] [place] [facility] [address] [id number] [place] [address] 15 Feb, 2010 [facility] [place] [facility] [address] [id number] [place] [address] Feb, [facility] [place] [facility] [address] [id number] [place] [address] Feb, [facility] [place] [facility] [address] [facility] [id number] [place] [address] Dec, [facility] [address] [facility] [id number] [place] [address] Jan, [facility] [address] [facility] [id number] [place] [address] Apr, IMMUNIZATIONS No Known Immunizations SOCIAL HISTORY Never Assessed REASON FOR VISIT EMR-[facility] PLAN OF CARE VITAL SIGNS MEDICATIONS Unknown [...] Hospitalization History Hyperglycemia 2012 Hospitalization History [facility] 11/28/2015-12/04/2015 2016 Hospitalization History Schizophrenia 09/26/16 Hospitalization History AMS, UTI, hyponatremia-[facility] 10/21/16 Hospitalization History stent placed 02/02/17 Hospitalization History stent placed 02/2017 Hospitalization History [facility]- Syncope, Dehydration and Hypotension. 06/08/2017
--- OUTSIDE RECORDS SUMMARY | 2018-09-05 12:42 | XMS REPORT ---
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.10 Active 4233616719091 Problem Chronic idiopathic constipation K59.04 Active 60121553 Problem vp care management current use of insulin Z79.4 Active 689250564 Problem Constipation K59.00 Active 03618244 Problem Bipolar affective disorder, current episode mixed, current episode severity unspecified F31.60 Active 794768078 Problem Arthritis of back M47.9 Active 21340412 Problem Psychosis, unspecified psychosis type F29 Active 84064014 Problem 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 [id number] [place] [address] May, [facility] [address], [place] [address] Apr, [place] [address] [place] [id number] [place] [address] Apr, Diabetes E11.9 [place] [address] [address] Apr, Bipolar affective disorder, current episode mixed, current episode severity unspecified F31.60 [place] [address] [address] Apr, [facility] [address] [address] Mar, [place] [address] [address] Mar, Psychosis, unspecified psychosis type F29 and Bipolar affective disorder, current episode mixed, current episode severity unspecified F31.60 [place] [address] [address] Mar, [facility] [address] [address] Mar, Low back pain M54.5 and Arthritis of back M47.9 [place] [address] [address] Mar, [facility] [id number] [place] [address] Feb, Abdominal pain R10.9 and Constipation K59.00 [place] [address] [address] Feb, Vertigo R42 ; 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 [address] [id number] [place] [address] Dec, [place] [address] [address] Dec, 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 [address] [id number] [place] [address] Oct, [place] [address] [place] [id number] [place] [address] Oct, [place] [address] [place] [id number] [place] [address] Oct, [place] [address] [place] [id number] [place] [address] Sep, [facility] [address] [id number] [place] [address] Aug, Upper respiratory tract infection, unspecified type J06.9 ; Chronic idiopathic constipation K59.04 ; Fluid level behind tympanic membrane of both ears H65.93 and Abdominal pain R10.9 [facility] [address] [id number] [place] [address] July, Diabetes E11.9 [facility] [address] [address] Jun, Dehydration E86.0 ; Diabetes E11.9 and Hyperglycemia R73.9 [place] [address] [address] Jun, [place] [address] [address] Jun, Vertigo R42 ; Syncope, unspecified syncope type R55 ; Diabetes E11.9 and Hyperglycemia R73.9 [place] [address] [place] [id number] [place] [address] May, Psychosis, unspecified psychosis type F29 and Bipolar affective disorder, current episode mixed, current episode severity unspecified F31.60 [place] [address] [place] [id number] [place] [address] May, [place] [address] [place] [id number] [place] [address] May, Diabetes E11.9 [facility] [address] [id number] [place] [id number] Apr, Dental examination Z01.20 and Dental caries K02.9 [place] [address] [place] [id number] [place] [address] Apr, Dental examination Z01.20 and Dental abscess K04.7 [place] [address] [place] [id number] [place] [address] Mar, Psychosis, unspecified psychosis type F29 and Bipolar affective disorder, current episode mixed, current episode severity unspecified F31.60 [place] [address] [place] [id number] [place] [address] Mar, [facility] [address] [address] [id number] [place] [address] Feb, [facility] [address] [place] [id number] [place] [address] Feb, Left wrist pain M25.532 [facility] [address] [place] [id number] [place] [address] Jan, [place] [address] [place] [id number] [place] [address] Jan, Psychosis, unspecified psychosis type F29 and Bipolar affective disorder, current episode mixed, current episode severity unspecified F31.60 [place] [address] [place] [id number] [place] [address] Jan, Diabetes E11.9 [facility] [place] [address] [place] [address] [id number] [place] [address] Jan, Left wrist pain M25.532 [place] [address] [place] [id number] [place] [address] Dec, Psychosis, unspecified psychosis type F29 and Bipolar affective disorder, current episode mixed, current episode severity unspecified F31.60 [place] [address] [place] [id number] [place] [address] Dec, Syncope, unspecified syncope type R55 ; Vertigo R42 ; Diabetes E11.9 ; Psychosis, unspecified psychosis type F29 and Fall, initial encounter W19.XXXA [place] [address] [place] [id number] [place] [address] Dec, Diabetes E11.9 ; Neck pain M54.2 and Vertigo R42 [place] [address] [place] [id number] [place] [address] Nov, [facility] [address] [place] [id number] [place] [address] Nov, [place] [id number] [place] [address] Nov, [place] [address] [place] [address] [address] 06 Nov, 2016 Diabetes E11.9 [facility] [address], [place] [address] 05 Nov, 2016 Diabetes E11.9 [facility] [address], [place] [address] Oct, [facility] [address] [place] [id number] Oct, [facility] [address], [place] [address] Oct, [facility] [address], [place] [address] Oct, Bipolar affective disorder, current episode mixed, current episode severity unspecified F31.60 [facility] [address] [id number] Sep, [facility] [address], [place] [address] Sep, Acute maxillary sinusitis, recurrence not specified J01.00 [facility] [address], [place] [address] Sep, Bipolar affective disorder, current episode mixed, current episode severity unspecified F31.60 [facility] [address], [place] [address] Sep, Diabetes E11.9 [facility] [address], [place] [address] July, Diabetes E11.9 [facility] [address], [place] [address] July, Diabetes E11.9 [facility] [address], [place] [address] Jun, [facility] [address], [place] [address] May, Bipolar affective disorder, current episode mixed, current episode severity unspecified F31.60 [facility] [address] [place] [id number] [place] [address] May, Acute non-recurrent maxillary sinusitis J01.00 [facility] [address] [id number] [place] [address] 10 Apr, 2016 Psychosis, unspecified psychosis type F29 and Bipolar affective disorder, current episode mixed, current episode severity unspecified F31.60 [facility] [address] [id number] [place] [address] Apr, Dysuria R30.0 ; Other viral agents as the cause of diseases classified elsewhere B97.89 and Acute upper respiratory infection, unspecified J06.9 [place] [address] [place] [address] [id number] [place] [address] Mar, Diabetes E11.9 ; Urine leukocytes R82.99 and Psychosis, unspecified psychosis type F29 [place] [address] [place] [id number] [place] [address] Mar, Diabetes E11.9 [place] [address] [place] [id number] [place] [address] Feb, [place] [address] [place] [id number] [place] [address] Jan, [place] [address] [place] [id number] [place] [address] Dec, Psychosis, unspecified psychosis type F29 [facility] [address] [place] [id number] [place] [address] Dec, [facility] [address] [id number] [place] [address] Dec, [facility] [address] [place] [address] [id number] [place] [address] Dec, Psychosis, unspecified psychosis type F29 [place] [address] [place] [address] Nov, Schizoaffective disorder, unspecified type F25.9 [facility] [address] [id number] [place] [address] Oct, [facility] [address] [id number] [place] [address] Oct, Conjunctivitis of right eye, unspecified conjunctivitis type H10.9 [facility] [address] [place] [id number] [place] [address] Aug, [facility] [address] [place] [id number] [place] [id number] Jun, Encounter for dental examination Z01.20 [facility] [address] [place] [id number] [place] [address] Jun, Diabetes E11.9 and Bipolar affect, depressed F31.30 [facility] [address] [id number] [place] [address] Jun, Other bipolar disorder F31.89 [facility] [address] [id number] [place] [address] Jun, [facility] [address] [id number] [place] [address] Apr, [facility] [address] [id number] [place] [address] Dec, [facility] [address] [id number] [place] [address] Dec, [facility] [address] [id number] [place] [address] Sep, [facility] [address] [id number] [place] [address] Jun, [facility] [address] [id number] [place] [address] Jun, [facility] [address] [place] [id number] [address] Mar, [facility] [address] [id number] [place] [address] Mar, [facility] [place] [facility] [address] [id number] [place] [address] Nov, [facility] [place] [facility] [address] [id number] [place] [address] Nov, [facility] [place] [facility] [address] [id number] [place] [address] Sep, [facility] [place] [facility] [address] [id number] [place] [address] Sep, [facility] [place] [facility] [address] [id number] [place] [address] Sep, [facility] [place] [facility] [address] [id number] [place] [address] Sep, [facility] [place] [facility] [address] [id number] [place] [address] Sep, [facility] [place] [facility] [address] [id number] [place] [address] Aug, [facility] [place] [facility] [address] [id number] [place] [address] Aug, [facility] [place] [facility] [address] [id number] [place] [address] Aug, [facility] [place] [facility] [address] [id number] [place] [address] Aug, [facility] [place] [facility] [address] [id number] [place] [address] Aug, [facility] [place] [facility] [address] [id number] [place] [address] Aug, [facility] [place] [facility] [address] [id number] [place] [address] July, [facility] [place] [facility] [address] [id number] [place] [address] July, [facility] [place] [facility] [address] [id number] [place] [address] Jun, [facility] [place] [facility] [address] [id number] [place] [address] Jun, [facility] [place] [facility] [address] [id number] [place] [address] Jun, [facility] [place] [facility] [address] [id number] [place] [address] Jun, [facility] [place] [facility] [address] [id number] [place] [address] Jun, [facility] [place] [facility] [address] [id number] [place] [address] Jun, [facility] [place] [facility] [address] [id number] [place] [address] Jun, [facility] [place] [facility] [address] [id number] [place] [address] Jun, [facility] [place] [facility] [address] [id number] [place] [address] May, [facility] [place] [facility] [address] [id number] [place] [address] May, [facility] [place] [facility] [address] [id number] [place] [address] May, [facility] [place] [facility] [address] [id number] [place] [address] May, [facility] [place] [facility] [address] [id number] [place] [address] May, [facility] [place] [facility] [address] [id number] [place] [address] May, [facility] [place] [facility] [address] [id number], [place] [address] May, [facility] [address] [id number] [place] [address] May, [facility] [place] [facility] [address] [id number] [place] [address] May, [facility] [place] [facility] [address] [id number] [place] [address] Apr, [facility] [place] [facility] [address] [id number] [place] [address] Apr, [facility] [place] [facility] [address] [id number] [place] [address] Mar, [facility] [place] [facility] [address] [id number] [place] [address] Mar, [facility] [address] [id number] [place] [address] Feb, [facility] [place] [facility] [address] [id number] [place] [address] Feb, [facility] [place] [facility] [address] [id number] [place] [address] Nov, [facility] [place] [facility] [address] [id number] [place] [address] Nov, [facility] [place] [facility] [address] [id number] [place] [address] Oct, [facility] [place] [facility] [address] [id number] [address] Oct, [facility] [place] [facility] [address] [id number] [place] [address] Oct, [facility] [place] [facility] [address] [id number] [place] [address] Oct, [facility] [place] [facility] [address] [id number] [place] [address] Oct, [facility] [place] [facility] [address] [id number] [place] [address] 23 Sep, 2012 [facility] [place] [facility] [address] [id number] [place] [address] Sep, [facility] [place] [facility] [address] [id number] [place] [address] Sep, [facility] [place] [facility] [address] [id number] [place] [address] Sep, [facility] [place] [facility] [address] [id number] [place] [address] Aug, [facility] [place] [facility] [address] [id number] [place] [address] Aug, [facility] [place] [facility] [address] [id number] [place] [address] Aug, [facility] [place] [facility] [address] [id number] [place] [address] Aug, [facility] [place] [facility] [address] [id number] [place] [address] Jun, [facility] [place] [facility] [address] [id number] [place] [address] Jun, [facility] [place] [facility] [address] [id number] [place] [address] Jun, [facility] [place] [facility] [address] [id number] [place] [address] 17 Jun, 2012 [facility] [place] [facility] [address] [id number] [place] [address] 21 May, 2012 [facility] [place] [facility] [address] [id number] [place] [address] 18 May, 2012 [facility] [place] [facility] [address] [id number] [place] [address] 18 May, 2012 [facility] [place] [facility] [address] [id number] [place] [address] 13 May, 2012 [facility] [address] [id number] [place] [address] 11 May, 2012 [facility] [place] [facility] [address] [id number] [place] [address] 04 May, 2012 [facility] [address] [id number] [place] [address] 21 Apr, 2012 [facility] [place] [facility] [address] [id number] [place] [address] 20 Apr, 2012 [facility] [address] [id number] [place] [address] Apr, [facility] [address] [id number] [place] [address] Apr, [facility] [address] [id number] [place] [address] Apr, [facility] [address] [id number] [place] [address] Feb, [facility] [address] [id number] [place] [address] Feb, [facility] [place] [facility] [address] [id number] [place] [address] Feb, [facility] [address] [id number] [place] [address] Feb, [facility] [place] [facility] [address] [id number] [place] [address] Feb, [facility] [place] [facility] [address] [id number] [place] [address] Feb, [facility] [place] [facility] [address] [facility] [id number] [place] [address] Feb, [facility] [place] [facility] [address] [id number] [place] [address] Feb, [facility] [place] [facility] [address] [id number] [place] [address] 14 Feb, 2012 [facility] [address] [id number] [place] [address] 14 Feb, 2012 [facility] [address] [id number] [place] [address] 13 Feb, 2012 [facility] [address] [id number] [place] [address] 13 Feb, 2012 [facility] [address] [id number] [place] [address] 12 Feb, 2012 [facility] [address] [id number] [place] [address] 12 Feb, 2012 [facility] [address] [id number] [place] [address] 12 Feb, 2012 [facility] [address] [id number] [place] [address] 12 Feb, 2012 [facility] [address] [id number] [place] [address] 12 Feb, 2012 [facility] [address] [id number] [place] [address] Feb, [facility] [address] [id number] [place] [address] Feb, [facility] [address] [id number] [place] [address] Feb, [facility] [address] [id number] [place] [address] Feb, [facility] [place] [facility] [address] [id number] [place] [address] Feb, [facility] [address] [id number] [place] [address] Feb, [facility] [address] [id number] [place] [address] Feb, [facility] [place] [facility] [address] [id number] [place] [address] Feb, [facility] [place] [facility] [address] [id number] [place] [address] Feb, [facility] [place] [facility] [address] [id number] [place] [address] Jan, [facility] [place] [facility] [address] [id number] [place] [address] Jan, [facility] [place] [facility] [address] [id number] [place] [address] Dec, [facility] [place] [facility] [address] [id number] [place] [address] Dec, [facility] [place] [facility] [address] [id number] [place] [address] Dec, [facility] [place] [facility] [address] [id number] [place] [address] Dec, [facility] [place] [facility] [address] [id number] [place] [address] Nov, [facility] [place] [facility] [address] [id number] [place] [address] Nov, [facility] [place] [facility] [address] [id number] [place] [address] Nov, [facility] [place] [facility] [address] [id number] [place] [address] Nov, [facility] [place] [facility] [address] [id number] [place] [address] Oct, [facility] [place] [facility] [address] [id number] [place] [address] Oct, [facility] [place] [facility] [address] [id number] [place] [address] Sep, [facility] [place] [facility] [address] [id number] [place] [address] 17 Sep, 2011 [facility] [address] [id number] [place] [address] Sep, [facility] [place] [facility] [address] [id number] [place] [address] Aug, [facility] [place] [facility] [address] [id number] [place] [address] Aug, [facility] [place] [facility] [address] [id number] [place] [address] 14 Aug, 2011 [facility] [place] [facility] [address] [id number] [place] [address] Aug, [facility] [place] [facility] [address] [id number] [place] [address] Aug, [facility] [address] [id number] [place] [address] July, [facility] [place] [facility] [address] [id number] [place] [address] July, [facility] [place] [facility] [address] [id number] [place] [address] July, [facility] [place] [facility] [address] [id number] [place] [address] July, [facility] [place] [facility] [address] [id number] [place] [address] July, [facility] [place] [facility] [address] [id number] [place] [address] Jun, [facility] [place] [facility] [address] [id number] [place] [address] May, [facility] [place] [facility] [address] [id number] [place] [address] 16 Apr, 2011 [facility] [place] [facility] [address] [id number] [place] [address] 13 Apr, 2011 [facility] [place] [facility] [address] [id number] [place] [address] Apr, [facility] [address] [id number] [place] [address] Mar, [facility] [address] [id number] [place] [address] Mar, [facility] [address] [id number] [place] [address] Mar, [facility] [address] [id number] [place] [address] Mar, [facility] [address] [id number] [place] [address] Mar, [facility] [address] [id number] [place] [address] Mar, [facility] [address] [id number] [place] [address] Mar, [facility] [address] [id number] [place] [address] Mar, [facility] [address] [id number] [place] [address] Feb, [facility] [address] [id number] [place] [address] Feb, [facility] [address] [id number] [place] [address] Feb, [facility] [address] [id number] [place] [address] Feb, [facility] [place] [facility] [address] [id number] [place] [address] Feb, [facility] [address] [id number] [place] [address] Jan, [facility] [address] [id number] [place] [address] Jan, [facility] [place] [facility] [address] [id number] [place] [address] Jan, [facility] [place] [facility] [address] [id number] [place] [address] Jan, [facility] [place] [facility] [address] [id number] [place] [address] 14 Dec, 2010 [facility] [place] [facility] [address] [id number] [place] [address] 14 Dec, 2010 [facility] [place] [facility] [address] [id number] [place] [address] Sep, [facility] [place] [facility] [address] [id number] [place] [address] July, [facility] [place] [facility] [address] [id number] [place] [address] Apr, [facility] [place] [facility] [address] [id number] [place] [address] Mar, [facility] [place] [facility] [address] [id number] [place] [address] Feb, [facility] [place] [facility] [address] [id number] [place] [address] Feb, [facility] [place] [facility] [address] [id number] [place] [address] Feb, [facility] [place] [facility] [address] [id number] [place] [address] Feb, [facility] [place] [facility] [address] [id number] [place] [address] 15 Feb, 2010 [facility] [place] [facility] [address] [id number] [place] [address] Feb, [facility] [place] [facility] [address] [id number] [place] [address] Feb, [facility] [place] [facility] [address] [facility] [id number] [place] [address] Dec, [facility] [address] [facility] [id number] [place] [address] Jan, [facility] [address] [facility] [id number] [place] [address] Apr, IMMUNIZATIONS No Known Immunizations SOCIAL HISTORY Never Assessed [place] [place] VITAL SIGNS MEDICATIONS Unknown [...] Hospitalization History Hyperglycemia 2012 Hospitalization History [facility] 11/28/2015-12/04/2015 2016 Hospitalization History Schizophrenia 09/26/16 Hospitalization History AMS, UTI, hyponatremia-[facility] 10/21/16 Hospitalization History stent placed 02/02/17 Hospitalization History stent placed 02/2017 Hospitalization History [facility], [place]- Syncope, Dehydration and Hypotension. 06/08/2017
--- OUTSIDE RECORDS SUMMARY | 2018-09-05 12:42 | XMS REPORT ---
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 Active 2718007503797 Problem Chronic idiopathic constipation K59.04 Active 71532564 Problem intermediate manager current use of insulin Z79.4 Active 709175927 Problem Constipation K59.00 Active 83563068 Problem Bipolar affective disorder, current episode mixed, current episode severity unspecified F31.60 Active 628509581 Problem Arthritis of back M47.9 Active 36248837 Problem Psychosis, unspecified psychosis type F29 Active 18765568 Problem 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 Active 461453752 Problem Age-related incipient cataract of both eyes H25.093 Active 094915196 Problem Diabetes 1.5, 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 181573690 Problem Essential hypertension I10 Active 37704202 ALLERGIES No Information ENCOUNTERS Encounter Location Date Diagnosis [place] [id number] [address] July, [facility] [id number] [place] [address] Jun, 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 and intermediate manager current use of insulin Z79.4 [facility] [id number] [place] [address] May, [facility] [address] [address] Apr, [place] [id number] [place] [address] Apr, Diabetes E11.9 [place] [address] [address] Apr, Bipolar affective disorder, current episode mixed, current episode severity unspecified F31.60 [place] [address] [address] Apr, [facility] [address] [address] Mar, [place] [address] [address] Mar, Psychosis, unspecified psychosis type F29 and Bipolar affective disorder, current episode mixed, current episode severity unspecified F31.60 [place] [address] [address] Mar, [facility] [address] [address] Mar, Low back pain M54.5 and Arthritis of back M47.9 [place] [address] [address] Mar, [facility] [id number] [place] [address] Feb, Abdominal pain R10.9 and Constipation K59.00 [place] [address] [address] Feb, Vertigo R42 ; 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 ; Hyperglycemia R73.9 and Essential hypertension I10 [place] [address] [address] Jan, [place] [address] [id number] [place] [address] Dec, [place] [address] [address] Dec, [facility] [id number] [place] [address] Dec, Dizziness R42 and Diabetes 1.5, 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 [facility] [id number] [place] [address] Dec, [place] [address] [address] Dec, [facility] [id number] [place] [address] Dec, Psychosis, unspecified psychosis type F29 and Bipolar affective disorder, current episode mixed, current episode severity unspecified F31.60 [place] [address] [id number] [place] [address] Dec, [place] [address] [address] Dec, [place] [address] [id number] [place] [address] Dec, 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 ; intermediate manager current use of insulin Z79.4 and Hyperglycemia R73.9 [facility] [id number] [place] [address] Oct, [place] [id number] [place] [address] Oct, [place] [id number] [place] [address] Oct, [place] [id number] [place] [address] Sep, [facility] [id number] [place] [address] Aug, Upper respiratory tract infection, unspecified type J06.9 ; Chronic idiopathic constipation K59.04 ; Fluid level behind tympanic membrane of both ears H65.93 and Abdominal pain R10.9 [facility] [id number] [place] [address] July, Diabetes E11.9 [facility] [address] [address] Jun, Dehydration E86.0 ; Diabetes E11.9 and Hyperglycemia R73.9 [place] [address] [address] Jun, [place] [address] [address] Jun, Vertigo R42 ; Syncope, unspecified syncope type R55 ; Diabetes E11.9 and Hyperglycemia R73.9 [place] [id number] [place] [address] May, Psychosis, unspecified psychosis type F29 and Bipolar affective disorder, current episode mixed, current episode severity unspecified F31.60 [place] [address] [id number] [place] [address] May, [place] [address] [id number] [place] [address] May, Diabetes E11.9 [facility] [id number] [place] [id number] Apr, Dental examination Z01.20 and Dental caries K02.9 [place] [id number] [place] [address] Apr, Dental examination Z01.20 and Dental abscess K04.7 [place] [address] [id number] [place] [address] Mar, Psychosis, unspecified psychosis type F29 and Bipolar affective disorder, current episode mixed, current episode severity unspecified F31.60 [place] [address] [id number] [place] [address] Mar, [facility] [id number] [place] [address] Feb, [facility] [id number] [place] [address] Feb, Left wrist pain M25.532 [facility] [id number] [place] [address] Jan, [place] [id number] [place] [address] Jan, Psychosis, unspecified psychosis type F29 and Bipolar affective disorder, current episode mixed, current episode severity unspecified F31.60 [place] [address] [address] [id number] [place] [address] Jan, Diabetes E11.9 [facility] [place] [id number] [place] [address] Jan, Left wrist pain M25.532 [place] [address] [id number] [place] [address] Dec, Psychosis, unspecified psychosis type F29 and Bipolar affective disorder, current episode mixed, current episode severity unspecified F31.60 [place] [address] [id number] [place] [address] Dec, Syncope, unspecified syncope type R55 ; Vertigo R42 ; Diabetes E11.9 ; Psychosis, unspecified psychosis type F29 and Fall, initial encounter W19.XXXA [place] [address] [id number] [place] [address] Dec, Diabetes E11.9 ; Neck pain M54.2 and Vertigo R42 [place] [address] [address] [id number] [place] [address] Nov, [facility] [id number] [place] [address] Nov, [place] [id number] [place] [address] Nov, [place] [id number] [address] 06 Nov, 2016 Diabetes E11.9 [facility] [address] [address] Nov, Diabetes E11.9 [facility] [address], [place] [address] Oct, [facility] [id number] [id number] Oct, [facility] [address], [place] [address] Oct, [facility] [address], [place] [address] Oct, Bipolar affective disorder, current episode mixed, current episode severity unspecified F31.60 [facility] [id number] [address] Sep, [facility] [address], [place] [address] Sep, Bipolar affective disorder, current episode mixed, current episode severity unspecified F31.60 [facility] [address] [address] Sep, Acute maxillary sinusitis, recurrence not specified J01.00 [facility] [id number] [address] Sep, Diabetes E11.9 [facility] [id number] [address] July, Diabetes E11.9 [facility] [id number] [address] July, Diabetes E11.9 [facility] [address] [address] Jun, [facility] [id number] [address] May, Bipolar affective disorder, current episode mixed, current episode severity unspecified F31.60 [facility] [id number] [place] [address] May, Acute non-recurrent maxillary sinusitis J01.00 [facility] [id number] [place] [address] 10 Apr, 2016 Psychosis, unspecified psychosis type F29 and Bipolar affective disorder, current episode mixed, current episode severity unspecified F31.60 [facility] [id number] [place] [address] Apr, Dysuria R30.0 ; Other viral agents as the cause of diseases classified elsewhere B97.89 and Acute upper respiratory infection, unspecified J06.9 [place] [id number] [place] [address] Mar, Diabetes E11.9 ; Urine leukocytes R82.99 and Psychosis, unspecified psychosis type F29 [place] [address] [id number] [place] [address] Mar, Diabetes E11.9 [place] [address] [id number] [place] [address] Feb, [place] [id number] [place] [address] Jan, [place] [address] [id number] [place] [address] Dec, Psychosis, unspecified psychosis type F29 [facility] [id number] [place] [address] Dec, [facility] [id number] [place] [address] Dec, [facility] [id number] [place] [address] Dec, Psychosis, unspecified psychosis type F29 [place] [address] [place] [address] Nov, Schizoaffective disorder, unspecified type F25.9 [facility] [id number] [place] [address] Oct, [facility] [id number] [place] [address] Oct, Conjunctivitis of right eye, unspecified conjunctivitis type H10.9 [facility] [id number] [place] [address] Aug, [facility] [id number] [place] [id number] Jun, Encounter for dental examination Z01.20 [facility] [id number] [place] [address] Jun, Diabetes E11.9 and Bipolar affect, depressed F31.30 [facility] [id number] [place] [address] Jun, Other bipolar disorder F31.89 [facility] [id number] [place] [address] Jun, [facility] [id number] [place] [address] Apr, [facility] [id number] [place] [address] Dec, [facility] [id number] [place] [address] Dec, [facility] [id number] [place] [address] Sep, [facility] [id number] [place] [address] Jun, [facility] [id number] [place] [address] Jun, [facility] [id number] [address] Mar, [facility] [address] [id number] [place] [address] Mar, [facility] [place] [facility] [address] [id number] [place] [address] Nov, [facility] [place] [facility] [address] [id number] [place] [address] Nov, [facility] [place] [facility] [address] [id number] [place] [address] Sep, [facility] [place] [facility] [address] [id number] [place] [address] Sep, [facility] [place] [facility] [address] [id number] [place] [address] Sep, [facility] [place] [facility] [address] [id number] [place] [address] Sep, [facility] [place] [facility] [address] [id number] [place] [address] Sep, [facility] [place] [facility] [address] [id number] [place] [address] Aug, [facility] [place] [facility] [address] [id number] [place] [address] Aug, [facility] [place] [facility] [address] [id number] [place] [address] Aug, [facility] [place] [facility] [address] [id number] [place] [address] Aug, [facility] [place] [facility] [address] [id number] [place] [address] Aug, [facility] [place] [facility] [address] [id number] [place] [address] Aug, [facility] [place] [facility] [address] [id number] [place] [address] July, [facility] [place] [facility] [address] [id number] [place] [address] July, [facility] [place] [facility] [address] [id number] [place] [address] Jun, [facility] [place] [facility] [address] [id number] [place] [address] Jun, [facility] [place] [facility] [address] [id number] [place] [address] Jun, [facility] [place] [facility] [address] [id number] [place] [address] Jun, [facility] [place] [facility] [address] [id number] [place] [address] Jun, [facility] [place] [facility] [address] [id number] [place] [address] Jun, [facility] [place] [facility] [address] [id number] [place] [address] Jun, [facility] [place] [facility] [address] [id number] [place] [address] Jun, [facility] [place] [facility] [address] [id number] [place] [address] May, [facility] [place] [facility] [address] [id number] [place] [address] May, [facility] [place] [facility] [address] [id number] [place] [address] May, [facility] [place] [facility] [address] [id number] [place] [address] May, [facility] [place] [facility] [address] [id number] [place] [address] May, [facility] [place] [facility] [address] [id number] [place] [address] May, [facility] [place] [facility] [address] [id number] [address] May, [facility] [address] [id number] [place] [address] May, [facility] [place] [facility] [address] [id number] [place] [address] May, [facility] [place] [facility] [address] [id number] [place] [address] Apr, [facility] [place] [facility] [address] [id number] [place] [address] Apr, [facility] [place] [facility] [address] [id number] [place] [address] Mar, [facility] [place] [facility] [address] [id number] [place] [address] Mar, [facility] [address] [id number] [place] [address] Feb, [facility] [place] [facility] [address] [id number] [place] [address] Feb, [facility] [place] [facility] [address] [id number] [place] [address] Nov, [facility] [place] [facility] [address] [id number] [place] [address] Nov, [facility] [place] [facility] [address] [id number] [place] [address] Oct, [facility] [place] [facility] [address] [id number] [address] Oct, [facility] [place] [facility] [address] [id number] [place] [address] Oct, [facility] [place] [facility] [address] [id number] [place] [address] Oct, [facility] [place] [facility] [address] [id number] [place] [address] Oct, [facility] [place] [facility] [address] [id number] [place] [address] 23 Sep, 2012 [facility] [place] [facility] [address] [id number] [place] [address] Sep, [facility] [place] [facility] [address] [id number] [place] [address] Sep, [facility] [place] [facility] [address] [id number] [place] [address] Sep, [facility] [place] [facility] [address] [id number] [place] [address] Aug, [facility] [place] [facility] [address] [id number] [place] [address] Aug, [facility] [place] [facility] [address] [id number] [place] [address] Aug, [facility] [place] [facility] [address] [id number] [place] [address] Aug, [facility] [place] [facility] [address] [id number] [place] [address] Jun, [facility] [place] [facility] [address] [id number] [place] [address] Jun, [facility] [place] [facility] [address] [id number] [place] [address] Jun, [facility] [place] [facility] [address] [id number] [place] [address] 17 Jun, 2012 [facility] [place] [facility] [address] [id number] [place] [address] 21 May, 2012 [facility] [place] [facility] [address] [id number] [place] [address] 18 May, 2012 [facility] [place] [facility] [address] [id number] [place] [address] 18 May, 2012 [facility] [place] [facility] [address] [id number] [place] [address] 13 May, 2012 [facility] [address] [id number] [place] [address] 11 May, 2012 [facility] [place] [facility] [address] [id number] [place] [address] 04 May, 2012 [facility] [address] [id number] [place] [address] 21 Apr, 2012 [facility] [place] [facility] [address] [id number] [place] [address] 20 Apr, 2012 [facility] [address] [id number] [place] [address] Apr, [facility] [address] [id number] [place] [address] Apr, [facility] [address] [id number] [place] [address] Apr, [facility] [address] [id number] [place] [address] Feb, [facility] [address] [id number] [place] [address] Feb, [facility] [place] [facility] [address] [id number] [place] [address] Feb, [facility] [address] [id number] [place] [address] Feb, [facility] [place] [facility] [address] [id number] [place] [address] Feb, [facility] [place] [facility] [address] [id number] [place] [address] Feb, [facility] [place] [facility] [address] [facility] [id number] [place] [address] Feb, [facility] [place] [facility] [address] [id number] [place] [address] Feb, [facility] [place] [facility] [address] [id number] [place] [address] 14 Feb, 2012 [facility] [address] [id number] [place] [address] 14 Feb, 2012 [facility] [address] [id number] [place] [address] 13 Feb, 2012 [facility] [address] [id number] [place] [address] 13 Feb, 2012 [facility] [address] [id number] [place] [address] 12 Feb, 2012 [facility] [address] [id number] [place] [address] 12 Feb, 2012 [facility] [address] [id number] [place] [address] 12 Feb, 2012 [facility] [address] [id number] [place] [address] 12 Feb, 2012 [facility] [address] [id number] [place] [address] 12 Feb, 2012 [facility] [address] [id number] [place] [address] Feb, [facility] [address] [id number] [place] [address] Feb, [facility] [address] [id number] [place] [address] Feb, [facility] [address] [id number] [place] [address] Feb, [facility] [place] [facility] [address] [id number] [place] [address] Feb, [facility] [address] [id number] [place] [address] Feb, [facility] [address] [id number] [place] [address] Feb, [facility] [place] [facility] [address] [id number] [place] [address] Feb, [facility] [place] [facility] [address] [id number] [place] [address] Feb, [facility] [place] [facility] [address] [id number] [place] [address] Jan, [facility] [place] [facility] [address] [id number] [place] [address] Jan, [facility] [place] [facility] [address] [id number] [place] [address] Dec, [facility] [place] [facility] [address] [id number] [place] [address] Dec, [facility] [place] [facility] [address] [id number] [place] [address] Dec, [facility] [place] [facility] [address] [id number] [place] [address] Dec, [facility] [place] [facility] [address] [id number] [place] [address] Nov, [facility] [place] [facility] [address] [id number] [place] [address] Nov, [facility] [place] [facility] [address] [id number] [place] [address] Nov, [facility] [place] [facility] [address] [id number] [place] [address] Nov, [facility] [place] [facility] [address] [id number] [place] [address] Oct, [facility] [place] [facility] [address] [id number] [place] [address] Oct, [facility] [place] [facility] [address] [id number] [place] [address] Sep, [facility] [place] [facility] [address] [id number] [place] [address] 17 Sep, 2011 [facility] [address] [id number] [place] [address] Sep, [facility] [place] [facility] [address] [id number] [place] [address] Aug, [facility] [place] [facility] [address] [id number] [place] [address] Aug, [facility] [place] [facility] [address] [id number] [place] [address] 14 Aug, 2011 [facility] [place] [facility] [address] [id number] [place] [address] Aug, [facility] [place] [facility] [address] [id number] [place] [address] Aug, [facility] [address] [address] [id number] [place] [address] July, [facility] [place] [facility] [address] [id number] [place] [address] July, [facility] [place] [facility] [address] [id number] [place] [address] July, [facility] [place] [facility] [address] [id number] [place] [address] July, [facility] [place] [facility] [address] [id number] [place] [address] July, [facility] [place] [facility] [address] [id number] [place] [address] Jun, [facility] [place] [facility] [address] [id number] [place] [address] May, [facility] [place] [facility] [address] [id number] [place] [address] 16 Apr, 2011 [facility] [place] [facility] [address] [id number] [place] [address] 13 Apr, 2011 [facility] [place] [facility] [address] [id number] [place] [address] Apr, [facility] [address] [id number] [place] [address] Mar, [facility] [address] [id number] [place] [address] Mar, [facility] [address] [id number] [place] [address] Mar, [facility] [address] [id number] [place] [address] Mar, [facility] [address] [id number] [place] [address] Mar, [facility] [address] [id number] [place] [address] Mar, [facility] [address] [id number] [place] [address] Mar, [facility] [address] [id number] [place] [address] Mar, [facility] [address] [id number] [place] [address] Feb, [facility] [address] [id number] [place] [address] Feb, [facility] [address] [id number] [place] [address] Feb, [facility] [address] [id number] [place] [address] Feb, [facility] [place] [facility] [address] [id number] [place] [address] Feb, [facility] [address] [id number] [place] [address] Jan, [facility] [address] [id number] [place] [address] Jan, [facility] [place] [facility] [address] [id number] [place] [address] Jan, [facility] [place] [facility] [address] [id number] [place] [address] Jan, [facility] [place] [facility] [address] [id number] [place] [address] 14 Dec, 2010 [facility] [place] [facility] [address] [id number] [place] [address] 14 Dec, 2010 [facility] [place] [facility] [address] [id number] [place] [address] Sep, [facility] [place] [facility] [address] [id number] [place] [address] July, [facility] [place] [facility] [address] [id number] [place] [address] Apr, [facility] [place] [facility] [address] [id number] [place] [address] Mar, [facility] [place] [facility] [address] [id number] [place] [address] Feb, [facility] [place] [facility] [address] [id number] [place] [address] Feb, [facility] [place] [facility] [address] [id number] [place] [address] Feb, [facility] [place] [facility] [address] [id number] [place] [address] Feb, [facility] [place] [facility] [address] [id number] [place] [address] 15 Feb, 2010 [facility] [place] [facility] [address] [id number] [place] [address] Feb, [facility] [place] [facility] [address] [id number] [place] [address] Feb, [facility] [place] [facility] [address] [facility] [id number] [place] [address] Dec, [facility] [address] [facility] [id number] [place] [address] Jan, [facility] [address] [facility] [id number] [place] [address] Apr, IMMUNIZATIONS No Known Immunizations SOCIAL HISTORY Never Assessed REASON FOR VISIT EMR-[facility] [place] PLAN OF CARE VITAL SIGNS MEDICATIONS Unknown [...] Hospitalization History Hyperglycemia 2012 Hospitalization History [facility] 11/28/2015-12/04/2015 2016 Hospitalization History Schizophrenia 09/26/16 Hospitalization History AMS, UTI, hyponatremia-[facility] 10/21/16 Hospitalization History stent placed 02/02/17 Hospitalization History stent placed 02/2017 Hospitalization History [facility]- Syncope, Dehydration and Hypotension. 06/08/2017
--- OUTSIDE RECORDS SUMMARY | 2018-09-05 12:43 | XMS REPORT ---
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 Active 5167695821868 Problem Chronic idiopathic constipation K59.04 Active 24584625 Problem 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 current use of insulin Z79.4 Active 882915989 Problem Constipation K59.00 Active 29934415 Problem Bipolar affective disorder, current episode mixed, current episode severity unspecified F31.60 Active 385542375 Problem Arthritis of back M47.9 Active 37695960 Problem Psychosis, unspecified psychosis type F29 Active 09857304 Problem 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 [id number] [place] [address] May, [facility] [address], [place] [address] Apr, [place] [id number] [place] [address] Apr, Diabetes E11.9 [place] [address] [address] Apr, Bipolar affective disorder, current episode mixed, current episode severity unspecified F31.60 [place] [address] [address] Apr, [facility] [address] [address] Mar, [place] [address] [address] Mar, Psychosis, unspecified psychosis type F29 and Bipolar affective disorder, current episode mixed, current episode severity unspecified F31.60 [place] [address] [address] Mar, [facility] [address] [address] Mar, Low back pain M54.5 and Arthritis of back M47.9 [place] [address] [address] Mar, [facility] [id number] [place] [address] Feb, Abdominal pain R10.9 and Constipation K59.00 [place] [address] [address] Feb, Vertigo R42 ; 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 [id number] [place] [address] Dec, [place] [address] [address] Dec, 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 [id number] [place] [address] Oct, [place] [id number] [place] [address] Oct, [place] [id number] [place] [address] Oct, [place] [id number] [place] [address] Sep, [facility] [id number] [place] [address] Aug, Upper respiratory tract infection, unspecified type J06.9 ; Chronic idiopathic constipation K59.04 ; Fluid level behind tympanic membrane of both ears H65.[address]9 [facility] [id number] [address] July, Diabetes E[address]9 [facility] [address] [address] Jun, Dehydration E86.0 ; Diabetes E11.9 and Hyperglycemia R73.9 [place] [address] [address] Jun, [place] [address] [address] Jun, Vertigo R42 ; Syncope, unspecified syncope type R55 ; Diabetes E11.9 and Hyperglycemia R73.9 [place] [id number] [address] May, Psychosis, unspecified psychosis type F29 and Bipolar affective disorder, current episode mixed, current episode severity unspecified F31.60 [place] [id number] [place] [address] May, [place] [id number] [place] [address] May, Diabetes E11.9 [facility] [id number] [place] [id number] Apr, Dental examination Z01.20 and Dental caries K02.9 [place] [id number] [place] [address] Apr, Dental examination Z01.20 and Dental abscess K04.7 [place] [id number] [address] Mar, Psychosis, unspecified psychosis type F29 and Bipolar affective disorder, current episode mixed, current episode severity unspecified F31.60 [place] [id number] [place] [address] Mar, [facility] [id number] [address] Feb, [facility] [id number] [place] [address] Feb, Left wrist pain M25.532 [facility] [id number] [place] [address] Jan, [place] [id number] [place] [address] Jan, Psychosis, unspecified psychosis type F29 and Bipolar affective disorder, current episode mixed, current episode severity unspecified F31.60 [place] [id number] [place] [address] Jan, Diabetes E11.9 [facility] [place] [id number] [place] [address] Jan, Left wrist pain M25.532 [place] [id number] [place] [address] Dec, Psychosis, unspecified psychosis type F29 and Bipolar affective disorder, current episode mixed, current episode severity unspecified F31.60 [place] [id number] [address] Dec, Syncope, unspecified syncope type R55 ; Vertigo R42 ; Diabetes E11.9 ; Psychosis, unspecified psychosis type F29 and Fall, initial encounter W19.XXXA [place] [id number] [address] Dec, Diabetes E11.9 ; Neck pain M54.2 and Vertigo R42 [place] [id number] [place] [address] Nov, [facility] [id number] [place] [address] Nov, [place] [id number] [place] [address] Nov, [place] [id number] [address] 06 Nov, [address] [facility] [address], [place] [address] 05 Nov, [address] [facility] [address], [place] [address] Oct, [facility] [id number] [id number] Oct, [facility] [address], [place] [address] Oct, [facility] [address], [place] [address] Oct, Bipolar affective disorder, current episode mixed, current episode severity unspecified F31.60 [facility] [id number] [id number] Sep, [facility] [address], [place] [address] Sep, Acute maxillary sinusitis, recurrence not specified J01.00 [facility] [address], [place] [address] Sep, Bipolar affective disorder, current episode mixed, current episode severity unspecified F31.60 [facility] [address], [place] [address] Sep, Diabetes E[address].9 [facility] [address], [place] [address] July, Diabetes [address]9 [facility] [address], [place] [address] July, Diabetes E11.9 [facility] [address], [place] [address] Jun, [facility] [address], [place] [address] May, Bipolar affective disorder, current episode mixed, current episode severity unspecified F31.60 [facility] [id number] [address] May, Acute non-recurrent maxillary sinusitis J01.00 [facility] [id number] [address] 10 Apr, 2016 Psychosis, unspecified psychosis type F29 and Bipolar affective disorder, current episode mixed, current episode severity unspecified F31.60 [facility] [id number] [address] Apr, Dysuria R30.0 ; Other viral agents as the cause of diseases classified elsewhere B97.89 and Acute upper respiratory infection, unspecified J06.9 [place] [id number] [address] Mar, Diabetes E11.9 ; Urine leukocytes R82.99 and Psychosis, unspecified psychosis type F29 [place] [id number] [place] [address] Mar, Diabetes E11.9 [place] [id number] [place] [address] Feb, [place] [id number] [place] [address] Jan, [place] [id number] [place] [address] Dec, Psychosis, unspecified psychosis type F29 [facility] [id number] [place] [address] Dec, [facility] [id number] [address] Dec, [facility] [id number] [place] [address] Dec, Psychosis, unspecified psychosis type F29 [place] [address] [place] [address] Nov, Schizoaffective disorder, unspecified type F25.9 [facility] [id number] [place] [address] Oct, [facility] [id number] [address] Oct, Conjunctivitis of right eye, unspecified conjunctivitis type H10.9 [facility] [id number] [place] [address] Aug, [facility] [id number] [place] [id number] Jun, Encounter for dental examination Z01.20 [facility] [id number] [place] [address] Jun, Diabetes E11.9 and Bipolar affect, depressed F31.30 [facility] [id number] [address] Jun, Other bipolar disorder F31.89 [facility] [id number] [place] [address] Jun, [facility] [id number] [place] [address] Apr, [facility] [id number] [place] [address] Dec, [facility] [id number] [place] [address] Dec, [facility] [id number] [place] [address] Sep, [facility] [id number] [place] [address] Jun, [facility] [id number] [address] Jun, [facility] [id number] [place] [address] Mar, [facility] [address] [id number] [place] [address] Mar, [facility] [place] [facility] [address] [id number] [place] [address] Nov, [facility] [place] [facility] [address] [id number] [place] [address] Nov, [facility] [place] [facility] [address] [id number] [place] [address] Sep, [facility] [place] [facility] [address] [id number] [place] [address] Sep, [facility] [place] [facility] [address] [id number] [place] [address] Sep, [facility] [place] [facility] [address] [id number] [place] [address] Sep, [facility] [place] [facility] [address] [id number] [place] [address] Sep, [facility] [place] [facility] [address] [id number] [place] [address] Aug, [facility] [place] [facility] [address] [id number] [place] [address] Aug, [facility] [place] [facility] [address] [id number] [place] [address] Aug, [facility] [place] [facility] [address] [id number] [place] [address] Aug, [facility] [place] [facility] [address] [id number] [place] [address] Aug, [facility] [place] [facility] [address] [id number] [place] [address] Aug, [facility] [place] [facility] [address] [id number] [place] [address] July, [facility] [place] [facility] [address] [id number] [place] [address] July, [facility] [place] [facility] [address] [id number] [place] [address] Jun, [facility] [place] [facility] [address] [id number] [place] [address] Jun, [facility] [place] [facility] [address] [id number] [place] [address] Jun, [facility] [place] [facility] [address] [id number] [place] [address] Jun, [facility] [place] [facility] [address] [id number] [place] [address] Jun, [facility] [place] [facility] [address] [id number] [place] [address] Jun, [facility] [place] [facility] [address] [id number] [place] [address] Jun, [facility] [place] [facility] [address] [id number] [place] [address] Jun, [facility] [place] [facility] [address] [id number] [place] [address] May, [facility] [place] [facility] [address] [id number] [place] [address] May, [facility] [place] [facility] [address] [id number] [place] [address] May, [facility] [place] [facility] [address] [id number] [place] [address] May, [facility] [place] [facility] [address] [id number] [place] [address] May, [facility] [place] [facility] [address] [id number] [place] [address] May, [facility] [place] [facility] [address] [id number], [place] [address] May, [facility] [address] [id number] [place] [address] May, [facility] [place] [facility] [address] [id number] [place] [address] May, [facility] [place] [facility] [address] [id number] [place] [address] Apr, [facility] [place] [facility] [address] [id number] [place] [address] Apr, [facility] [place] [facility] [address] [id number] [place] [address] Mar, [facility] [place] [facility] [address] [id number] [place] [address] Mar, [facility] [address] [id number] [place] [address] Feb, [facility] [place] [facility] [address] [id number] [place] [address] Feb, [facility] [place] [facility] [address] [id number] [place] [address] Nov, [facility] [place] [facility] [address] [id number] [place] [address] Nov, [facility] [place] [facility] [address] [id number] [place] [address] Oct, [facility] [place] [facility] [address] [id number], [place] [address] Oct, [facility] [place] [facility] [address] [id number] [place] [address] Oct, [facility] [place] [facility] [address] [id number] [place] [address] Oct, [facility] [place] [facility] [address] [id number] [place] [address] Oct, [facility] [place] [facility] [address] [id number] [place] [address] 23 Sep, 2012 [facility] [place] [facility] [address] [id number] [place] [address] Sep, [facility] [place] [facility] [address] [id number] [place] [address] Sep, [facility] [place] [facility] [address] [id number] [place] [address] Sep, [facility] [place] [facility] [address] [id number] [place] [address] Aug, [facility] [place] [facility] [address] [id number] [place] [address] Aug, [facility] [place] [facility] [address] [id number] [place] [address] Aug, [facility] [place] [facility] [address] [id number] [place] [address] Aug, [facility] [place] [facility] [address] [id number] [place] [address] Jun, [facility] [place] [facility] [address] [id number] [place] [address] Jun, [facility] [place] [facility] [address] [id number] [place] [address] Jun, [facility] [place] [facility] [address] [id number] [place] [address] 17 Jun, 2012 [facility] [place] [facility] [address] [id number] [place] [address] 21 May, 2012 [facility] [place] [facility] [address] [id number] [place] [address] 18 May, 2012 [facility] [place] [facility] [address] [id number] [place] [address] 18 May, 2012 [facility] [place] [facility] [address] [id number] [place] [address] 13 May, 2012 [facility] [address] [id number] [place] [address] 11 May, 2012 [facility] [place] [facility] [address] [id number] [place] [address] 04 May, 2012 [facility] [address] [id number] [place] [address] 21 Apr, 2012 [facility] [place] [facility] [address] [id number] [place] [address] 20 Apr, 2012 [facility] [address] [id number] [place] [address] Apr, [facility] [address] [id number] [place] [address] Apr, [facility] [address] [id number] [place] [address] Apr, [facility] [address] [id number] [place] [address] Feb, [facility] [address] [id number] [place] [address] Feb, [facility] [place] [facility] [address] [id number] [place] [address] Feb, [facility] [address] [id number] [place] [address] Feb, [facility] [place] [facility] [address] [id number] [place] [address] Feb, [facility] [place] [facility] [address] [id number] [place] [address] Feb, [facility] [place] [facility] [address] [facility] [id number] [place] [address] Feb, [facility] [place] [facility] [address] [id number] [place] [address] Feb, [facility] [place] [facility] [address] [id number] [place] [address] 14 Feb, 2012 [facility] [address] [id number] [place] [address] 14 Feb, 2012 [facility] [address] [id number] [place] [address] 13 Feb, 2012 [facility] [address] [id number] [place] [address] 13 Feb, 2012 [facility] [address] [id number] [place] [address] 12 Feb, 2012 [facility] [address] [id number] [place] [address] 12 Feb, 2012 [facility] [address] [id number] [place] [address] 12 Feb, 2012 [facility] [address] [id number] [place] [address] 12 Feb, 2012 [facility] [address] [id number] [place] [address] 12 Feb, 2012 [facility] [address] [id number] [place] [address] Feb, [facility] [address] [id number] [place] [address] Feb, [facility] [address] [id number] [place] [address] Feb, [facility] [address] [id number] [place] [address] Feb, [facility] [place] [facility] [address] [id number] [place] [address] Feb, [facility] [address] [id number] [place] [address] Feb, [facility] [address] [id number] [place] [address] Feb, [facility] [place] [facility] [address] [id number] [place] [address] Feb, [facility] [place] [facility] [address] [id number] [place] [address] Feb, [facility] [place] [facility] [address] [id number] [place] [address] Jan, [facility] [place] [facility] [address] [id number] [place] [address] Jan, [facility] [place] [facility] [address] [id number] [place] [address] Dec, [facility] [place] [facility] [address] [id number] [place] [address] Dec, [facility] [place] [facility] [address] [id number] [place] [address] Dec, [facility] [place] [facility] [address] [id number] [place] [address] Dec, [facility] [place] [facility] [address] [id number] [place] [address] Nov, [facility] [place] [facility] [address] [id number] [place] [address] Nov, [facility] [place] [facility] [address] [id number] [place] [address] Nov, [facility] [place] [facility] [address] [id number] [place] [address] Nov, [facility] [place] [facility] [address] [id number] [place] [address] Oct, [facility] [place] [facility] [address] [id number] [place] [address] Oct, [facility] [place] [facility] [address] [id number] [place] [address] Sep, [facility] [place] [facility] [address] [id number] [place] [address] 17 Sep, 2011 [facility] [address] [id number] [place] [address] Sep, [facility] [place] [facility] [address] [id number] [place] [address] Aug, [facility] [place] [facility] [address] [id number] [place] [address] Aug, [facility] [place] [facility] [address] [id number] [place] [address] 14 Aug, 2011 [facility] [place] [facility] [address] [address] [id number] [place] [address] Aug, [facility] [place] [facility] [address] [id number] [place] [address] Aug, [facility] [address] [id number] [place] [address] July, [facility] [place] [facility] [address] [id number] [place] [address] July, [facility] [place] [facility] [address] [id number] [place] [address] July, [facility] [place] [facility] [address] [id number] [place] [address] July, [facility] [place] [facility] [address] [id number] [place] [address] July, [facility] [place] [facility] [address] [id number] [place] [address] Jun, [facility] [place] [facility] [address] [id number] [place] [address] May, [facility] [place] [facility] [address] [id number] [place] [address] 16 Apr, 2011 [facility] [place] [facility] [address] [id number] [place] [address] 13 Apr, 2011 [facility] [place] [facility] [address] [id number] [place] [address] Apr, [facility] [address] [id number] [place] [address] Mar, [facility] [address] [id number] [place] [address] Mar, [facility] [address] [id number] [place] [address] Mar, [facility] [address] [id number] [place] [address] Mar, [facility] [address] [id number] [place] [address] Mar, [facility] [address] [id number] [place] [address] Mar, [facility] [address] [id number] [place] [address] Mar, [facility] [address] [id number] [place] [address] Mar, [facility] [address] [id number] [place] [address] Feb, [facility] [address] [id number] [place] [address] Feb, [facility] [address] [id number] [place] [address] Feb, [facility] [address] [id number] [place] [address] Feb, [facility] [place] [facility] [address] [id number] [place] [address] Feb, [facility] [address] [id number] [place] [address] Jan, [facility] [address] [id number] [place] [address] Jan, [facility] [place] [facility] [address] [id number] [place] [address] Jan, [facility] [place] [facility] [address] [id number] [place] [address] Jan, [facility] [place] [facility] [address] [id number] [place] [address] 14 Dec, 2010 [facility] [place] [facility] [address] [id number] [place] [address] 14 Dec, 2010 [facility] [place] [facility] [address] [id number] [place] [address] Sep, [facility] [place] [facility] [address] [id number] [place] [address] July, [facility] [place] [facility] [address] [id number] [place] [address] Apr, [facility] [place] [facility] [address] [id number] [place] [address] Mar, [facility] [place] [facility] [address] [id number] [place] [address] Feb, [facility] [place] [facility] [address] [id number] [place] [address] Feb, [facility] [place] [facility] [address] [id number] [place] [address] Feb, [facility] [place] [facility] [address] [id number] [place] [address] Feb, [facility] [place] [facility] [address] [id number] [place] [address] 15 Feb, 2010 [facility] [place] [facility] [address] [id number] [place] [address] Feb, [facility] [place] [facility] [address] [id number] [place] [address] Feb, [facility] [place] [facility] [address] [facility] [id number] [place] [address] Dec, [facility] [address] [facility] [id number] [place] [address] Jan, [facility] [address] [facility] [id number] [place] [address] Apr, IMMUNIZATIONS No Known Immunizations SOCIAL HISTORY Never Assessed REASON FOR VISIT EMR-[facility] [place] OF CARE VITAL SIGNS MEDICATIONS Unknown [...] Hospitalization History Hyperglycemia 2012 Hospitalization History [facility] 11/28/2015-12/04/2015 2016 Hospitalization History Schizophrenia 09/26/16 Hospitalization History AMS, UTI, hyponatremia-[facility] 10/21/16 Hospitalization History stent placed 02/02/17 Hospitalization History stent placed 02/2017 Hospitalization History [facility]- Syncope, Dehydration and Hypotension. 06/08/2017
--- OUTSIDE RECORDS SUMMARY | 2018-09-05 12:43 | XMS REPORT ---
Author Author Migration, Doctor Organization [facility] Address Unknown Phone Unavailable Care Team Providers Care Information Systems Operator Name Role Phone Migration, Doctor Unavailable Unavailable PROBLEMS Type Condition ICD9-CM Code ALH45-EX Code Onset Dates Condition Status SNOMED Code Problem Diabetes E11.9 Active 75979290 Problem Pacemaker Z95.0 Active 497882900 Problem CVA (cerebral vascular accident) I63.9 Active 767540571 Problem Coronary artery disease involving tetlin coronary artery of tetlin heart without angina pectoris I25.10 Active 1396203160369 Problem Chronic idiopathic constipation K59.04 Active 77083691 Problem lobsterman current use of insulin Z79.4 Active 756071911 Problem Constipation K59.00 Active 69199245 Problem Bipolar affective disorder, current episode mixed, current episode severity unspecified F31.60 Active 709065189 Problem Arthritis of back M47.9 Active 68531334 Problem Psychosis, unspecified psychosis type F29 Active 72924742 Problem 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 Active 009913554 Problem Age-related incipient cataract of both eyes H25.093 Active 704909013 Problem Diabetes 1.5, 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 383300960 Problem Essential hypertension I10 Active 58453716 ALLERGIES No Information ENCOUNTERS Encounter Location Date Diagnosis [place] [id number] [address] Jun, [facility] [id number] [place] [address] Jun, 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 and lobsterman current use of insulin Z79.4 [facility] [id number] [place] [address] May, [facility] [address] [address] Apr, [place] [id number] [place] [address] Apr, Diabetes E11.9 [place] [address] [address] Apr, Bipolar affective disorder, current episode mixed, current episode severity unspecified F31.60 [place] [address] [address] Apr, [facility] [address] [address] Mar, [place] [address] [address] Mar, Psychosis, unspecified psychosis type F29 and Bipolar affective disorder, current episode mixed, current episode severity unspecified F31.60 [place] [address] [address] Mar, [facility] [address] [address] Mar, Low back pain M54.5 and Arthritis of back M47.9 [place] [address] [address] Mar, [facility] [id number] [place] [address] Feb, Abdominal pain R10.9 and Constipation K59.00 [place] [address] [address] Feb, Vertigo R42 ; 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 ; Hyperglycemia R73.9 and Essential hypertension I10 [place] [address] [address] Jan, [place] [id number] [place] [address] Dec, [place] [address] [address] Dec, [facility] [id number] [place] [address] Dec, Dizziness R42 and Diabetes 1.5, 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 [facility] [id number] [place] [address] Dec, [place] [address] [address] Dec, [facility] [id number] [place] [address] Dec, Psychosis, unspecified psychosis type F29 and Bipolar affective disorder, current episode mixed, current episode severity unspecified F31.60 [place] [id number] [place] [address] Dec, [place] [address] [address] Dec, [place] [id number] [place] [address] Dec, 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 ; lobsterman current use of insulin Z79.4 and Hyperglycemia R73.9 [facility] [id number] [place] [address] Oct, [place] [id number] [place] [address] Oct, [place] [id number] [place] [address] Oct, [place] [id number] [place] [address] Sep, [facility] [id number] [place] [address] Aug, Upper respiratory tract infection, unspecified type J06.9 ; Chronic idiopathic constipation K59.04 ; Fluid level behind tympanic membrane of both ears H65.93 and Abdominal pain R10.9 [facility] [id number] [place] [address] July, Diabetes E11.9 [facility] [address] [address] Jun, Dehydration E86.0 ; Diabetes E11.9 and Hyperglycemia R73.9 [place] [address] [address] Jun, [place] [address] [address] Jun, Vertigo R42 ; Syncope, unspecified syncope type R55 ; Diabetes E11.9 and Hyperglycemia R73.9 [place] [id number] [place] [address] May, Psychosis, unspecified psychosis type F29 and Bipolar affective disorder, current episode mixed, current episode severity unspecified F31.60 [place] [id number] [place] [address] May, [place] [id number] [place] [address] May, Diabetes E11.9 [facility] [id number] [place] [id number] Apr, Dental examination Z01.20 and Dental caries K02.9 [place] [id number] [place] [address] Apr, Dental examination Z01.20 and Dental abscess K04.7 [place] [id number] [place] [address] Mar, Psychosis, unspecified psychosis type F29 and Bipolar affective disorder, current episode mixed, current episode severity unspecified F31.60 [place] [id number] [place] [address] Mar, [facility] [id number] [place] [address] Feb, [facility] [id number] [place] [address] Feb, Left wrist pain M25.532 [facility] [id number] [place] [address] Jan, [place] [id number] [place] [address] Jan, Psychosis, unspecified psychosis type F29 and Bipolar affective disorder, current episode mixed, current episode severity unspecified F31.60 [place] [id number] [place] [address] Jan, Diabetes E11.9 [facility] [place] [id number] [place] [address] Jan, Left wrist pain M25.532 [place] [id number] [place] [address] Dec, Psychosis, unspecified psychosis type F29 and Bipolar affective disorder, current episode mixed, current episode severity unspecified F31.60 [place] [id number] [place] [address] Dec, Syncope, unspecified syncope type R55 ; Vertigo R42 ; Diabetes E11.9 ; Psychosis, unspecified psychosis type F29 and Fall, initial encounter W19.XXXA [place] [id number] [place] [address] Dec, Diabetes E11.9 ; Neck pain M54.2 and Vertigo R42 [place] [id number] [place] [address] Nov, [facility] [id number] [place] [address] Nov, [place] [id number] [place] [address] Nov, [place] [id number] [address] 06 Nov, 2016 Diabetes E11.9 [facility] [address], [place] [address] Nov, Diabetes E11.9 [facility] [address], [place] [address] Oct, [facility] [address] [id number] Oct, [facility] [address], [place] [address] Oct, [facility] [address], [place] [address] Oct, Bipolar affective disorder, current episode mixed, current episode severity unspecified F31.60 [facility] [id number] [address] Sep, [facility] [address], [place] [address] Sep, Bipolar affective disorder, current episode mixed, current episode severity unspecified F31.60 [facility] [address], [place] [address] Sep, Acute maxillary sinusitis, recurrence not specified J01.00 [facility] [id number] [address] Sep, Diabetes E11.9 [facility] [id number] [address] July, Diabetes E11.9 [facility] [id number] [address] July, Diabetes E11.9 [facility] [address], [place] [address] Jun, [facility] [id number] [address] May, Bipolar affective disorder, current episode mixed, current episode severity unspecified F31.60 [facility] [id number] [place] [address] May, Acute non-recurrent maxillary sinusitis J01.00 [facility] [id number] [place] [address] 10 Apr, 2016 Psychosis, unspecified psychosis type F29 and Bipolar affective disorder, current episode mixed, current episode severity unspecified F31.60 [facility] [id number] [place] [address] Apr, Dysuria R30.0 ; Other viral agents as the cause of diseases classified elsewhere B97.89 and Acute upper respiratory infection, unspecified J06.9 [place] [id number] [place] [address] Mar, Diabetes E11.9 ; Urine leukocytes R82.99 and Psychosis, unspecified psychosis type F29 [place] [id number] [place] [address] Mar, Diabetes E11.9 [place] [id number] [place] [address] Feb, [place] [id number] [place] [address] Jan, [place] [id number] [place] [address] Dec, Psychosis, unspecified psychosis type F29 [facility] [id number] [place] [address] Dec, [facility] [id number] [place] [address] Dec, [facility] [id number] [place] [address] Dec, Psychosis, unspecified psychosis type F29 [place] [address] [place] [address] Nov, Schizoaffective disorder, unspecified type F25.9 [facility] [id number] [place] [address] Oct, [facility] [id number] [place] [address] Oct, Conjunctivitis of right eye, unspecified conjunctivitis type H10.9 [facility] [id number] [place] [address] Aug, [facility] [id number] [place] [id number] Jun, Encounter for dental examination Z01.20 [facility] [id number] [place] [address] Jun, Diabetes E11.9 and Bipolar affect, depressed F31.30 [facility] [id number] [place] [address] Jun, Other bipolar disorder F31.89 [facility] [id number] [place] [address] Jun, [facility] [id number] [place] [address] Apr, [facility] [id number] [place] [address] Dec, [facility] [id number] [place] [address] Dec, [facility] [id number] [place] [address] Sep, [facility] [id number] [place] [address] Jun, [facility] [id number] [place] [address] Jun, [facility] [id number] [place] [address] Mar, [facility] [address] [id number] [place] [address] Mar, [facility] [place] [facility] [address] [id number] [place] [address] Nov, [facility] [place] [facility] [address] [id number] [place] [address] Nov, [facility] [place] [facility] [address] [id number] [place] [address] Sep, [facility] [place] [facility] [address] [id number] [place] [address] Sep, [facility] [place] [facility] [address] [id number] [place] [address] Sep, [facility] [place] [facility] [address] [id number] [place] [address] Sep, [facility] [place] [facility] [address] [id number] [place] [address] Sep, [facility] [place] [facility] [address] [id number] [place] [address] Aug, [facility] [place] [facility] [address] [id number] [place] [address] Aug, [facility] [place] [facility] [address] [id number] [place] [address] Aug, [facility] [place] [facility] [address] [id number] [place] [address] Aug, [facility] [place] [facility] [address] [id number] [place] [address] Aug, [facility] [place] [facility] [address] [id number] [place] [address] Aug, [facility] [place] [facility] [address] [id number] [place] [address] July, [facility] [place] [facility] [address] [id number] [place] [address] July, [facility] [place] [facility] [address] [id number] [place] [address] Jun, [facility] [place] [facility] [address] [id number] [place] [address] Jun, [facility] [place] [facility] [address] [id number] [place] [address] Jun, [facility] [place] [facility] [address] [id number] [place] [address] Jun, [facility] [place] [facility] [address] [id number] [place] [address] Jun, [facility] [place] [facility] [address] [id number] [place] [address] Jun, [facility] [place] [facility] [address] [id number] [place] [address] Jun, [facility] [place] [facility] [address] [id number] [place] [address] Jun, [facility] [place] [facility] [address] [id number] [place] [address] May, [facility] [place] [facility] [address] [id number] [place] [address] May, [facility] [place] [facility] [address] [id number] [place] [address] May, [facility] [place] [facility] [address] [id number] [place] [address] May, [facility] [place] [facility] [address] [id number] [place] [address] May, [facility] [place] [facility] [address] [id number] [place] [address] May, [facility] [place] [facility] [address] [id number], [place] [address] May, [facility] [address] [id number] [place] [address] May, [facility] [place] [facility] [address] [id number] [place] [address] May, [facility] [place] [facility] [address] [id number] [place] [address] Apr, [facility] [place] [facility] [address] [id number] [place] [address] Apr, [facility] [place] [facility] [address] [id number] [place] [address] Mar, [facility] [place] [facility] [address] [id number] [place] [address] Mar, [facility] [address] [id number] [place] [address] Feb, [facility] [place] [facility] [address] [id number] [place] [address] Feb, [facility] [place] [facility] [address] [id number] [place] [address] Nov, [facility] [place] [facility] [address] [id number] [place] [address] Nov, [facility] [place] [facility] [address] [id number] [place] [address] Oct, [facility] [place] [facility] [address] [id number], [place] [address] Oct, [facility] [place] [facility] [address] [id number] [place] [address] Oct, [facility] [place] [facility] [address] [id number] [place] [address] Oct, [facility] [place] [facility] [address] [id number] [place] [address] Oct, [facility] [place] [facility] [address] [id number] [place] [address] 23 Sep, 2012 [facility] [place] [facility] [address] [id number] [place] [address] Sep, [facility] [place] [facility] [address] [id number] [place] [address] Sep, [facility] [place] [facility] [address] [id number] [place] [address] Sep, [facility] [place] [facility] [address] [id number] [place] [address] Aug, [facility] [place] [facility] [address] [id number] [place] [address] Aug, [facility] [place] [facility] [address] [id number] [place] [address] Aug, [facility] [place] [facility] [address] [id number] [place] [address] Aug, [facility] [place] [facility] [address] [id number] [place] [address] Jun, [facility] [place] [facility] [address] [id number] [place] [address] Jun, [facility] [place] [facility] [address] [id number] [place] [address] Jun, [facility] [place] [facility] [address] [id number] [place] [address] 17 Jun, 2012 [facility] [place] [facility] [address] [id number] [place] [address] 21 May, 2012 [facility] [place] [facility] [address] [id number] [place] [address] 18 May, 2012 [facility] [place] [facility] [address] [id number] [place] [address] 18 May, 2012 [facility] [place] [facility] [address] [id number] [place] [address] 13 May, 2012 [facility] [address] [id number] [place] [address] 11 May, 2012 [facility] [place] [facility] [address] [id number] [place] [address] 04 May, 2012 [facility] [address] [id number] [place] [address] 21 Apr, 2012 [facility] [place] [facility] [address] [id number] [place] [address] 20 Apr, 2012 [facility] [address] [id number] [place] [address] Apr, [facility] [address] [id number] [place] [address] Apr, [facility] [address] [id number] [place] [address] Apr, [facility] [address] [id number] [place] [address] Feb, [facility] [address] [id number] [place] [address] Feb, [facility] [place] [facility] [address] [id number] [place] [address] Feb, [facility] [address] [id number] [place] [address] Feb, [facility] [place] [facility] [address] [id number] [place] [address] Feb, [facility] [place] [facility] [address] [id number] [place] [address] Feb, [facility] [place] [facility] [address] [facility] [id number] [place] [address] Feb, [facility] [place] [facility] [address] [id number] [place] [address] Feb, [facility] [place] [facility] [address] [id number] [place] [address] 14 Feb, 2012 [facility] [address] [id number] [place] [address] 14 Feb, 2012 [facility] [address] [id number] [place] [address] 13 Feb, 2012 [facility] [address] [id number] [place] [address] 13 Feb, 2012 [facility] [address] [id number] [place] [address] 12 Feb, 2012 [facility] [address] [id number] [place] [address] 12 Feb, 2012 [facility] [address] [id number] [place] [address] 12 Feb, 2012 [facility] [address] [id number] [place] [address] 12 Feb, 2012 [facility] [address] [id number] [place] [address] 12 Feb, 2012 [facility] [address] [id number] [place] [address] Feb, [facility] [address] [id number] [place] [address] Feb, [facility] [address] [id number] [place] [address] Feb, [facility] [address] [id number] [place] [address] Feb, [facility] [place] [facility] [address] [id number] [place] [address] Feb, [facility] [address] [id number] [place] [address] Feb, [facility] [address] [id number] [place] [address] Feb, [facility] [place] [facility] [address] [id number] [place] [address] Feb, [facility] [place] [facility] [address] [id number] [place] [address] Feb, [facility] [place] [facility] [address] [id number] [place] [address] Jan, [facility] [place] [facility] [address] [id number] [place] [address] Jan, [facility] [place] [facility] [address] [id number] [place] [address] Dec, [facility] [place] [facility] [address] [id number] [place] [address] Dec, [facility] [place] [facility] [address] [id number] [place] [address] Dec, [facility] [place] [facility] [address] [id number] [place] [address] Dec, [facility] [place] [facility] [address] [id number] [place] [address] Nov, [facility] [place] [facility] [address] [id number] [place] [address] Nov, [facility] [place] [facility] [address] [id number] [place] [address] Nov, [facility] [place] [facility] [address] [id number] [place] [address] Nov, [facility] [place] [facility] [address] [id number] [place] [address] Oct, [facility] [place] [facility] [address] [id number] [place] [address] Oct, [facility] [place] [facility] [address] [id number] [place] [address] Sep, [facility] [place] [facility] [address] [id number] [place] [address] 17 Sep, 2011 [facility] [address] [id number] [place] [address] Sep, [facility] [place] [facility] [address] [id number] [place] [address] Aug, [facility] [place] [facility] [address] [id number] [place] [address] Aug, [facility] [place] [facility] [address] [id number] [place] [address] 14 Aug, 2011 [facility] [place] [facility] [address] [id number] [place] [address] Aug, [facility] [place] [facility] [address] [id number] [place] [address] Aug, [facility] [address] [id number] [place] [address] July, [facility] [place] [facility] [address] [id number] [place] [address] July, [facility] [place] [facility] [address] [id number] [place] [address] July, [facility] [place] [facility] [address] [id number] [place] [address] July, [facility] [place] [facility] [address] [id number] [place] [address] July, [facility] [place] [facility] [address] [id number] [place] [address] Jun, [facility] [place] [facility] [address] [id number] [place] [address] May, [facility] [place] [facility] [address] [id number] [place] [address] 16 Apr, 2011 [facility] [place] [facility] [address] [id number] [place] [address] 13 Apr, 2011 [facility] [place] [facility] [address] [id number] [place] [address] Apr, [facility] [address] [id number] [place] [address] Mar, [facility] [address] [id number] [place] [address] Mar, [facility] [address] [id number] [place] [address] Mar, [facility] [address] [id number] [place] [address] Mar, [facility] [address] [id number] [place] [address] Mar, [facility] [address] [id number] [place] [address] Mar, [facility] [address] [id number] [place] [address] Mar, [facility] [address] [id number] [place] [address] Mar, [facility] [address] [id number] [place] [address] Feb, [facility] [address] [id number] [place] [address] Feb, [facility] [address] [id number] [place] [address] Feb, [facility] [address] [id number] [place] [address] Feb, [facility] [place] [facility] [address] [id number] [place] [address] Feb, [facility] [address] [id number] [place] [address] Jan, [facility] [address] [id number] [place] [address] Jan, [facility] [place] [facility] [address] [id number] [place] [address] Jan, [facility] [place] [facility] [address] [id number] [place] [address] Jan, [facility] [place] [facility] [address] [id number] [place] [address] 14 Dec, 2010 [facility] [place] [facility] [address] [id number] [place] [address] 14 Dec, 2010 [facility] [place] [facility] [address] [id number] [place] [address] Sep, [facility] [place] [facility] [address] [id number] [place] [address] July, [facility] [place] [facility] [address] [id number] [place] [address] Apr, [facility] [place] [facility] [address] [id number] [place] [address] Mar, [facility] [place] [facility] [address] [id number] [place] [address] Feb, [facility] [place] [facility] [address] [id number] [place] [address] Feb, [facility] [place] [facility] [address] [id number] [place] [address] Feb, [facility] [place] [facility] [address] [id number] [place] [address] Feb, [facility] [place] [facility] [address] [id number] [place] [address] 15 Feb, 2010 [facility] [place] [facility] [address] [id number] [place] [address] Feb, [facility] [place] [facility] [address] [id number] [place] [address] Feb, [facility] [place] [facility] [address] [facility] [place] [facility] [id number] [place] [address] Dec[facility] [address] [facility] [place] [id number] [place] [address] Jan, [facility] [address] [facility] [place] [id number] [place] [address] Apr, IMMUNIZATIONS No Known Immunizations SOCIAL HISTORY Never Assessed [place] [place] VITAL SIGNS MEDICATIONS Unknown [...] Hospitalization History Hyperglycemia 2012 Hospitalization History [facility] 11/28/2015-12/04/2015 2016 Hospitalization History Schizophrenia 09/26/16 Hospitalization History AMS, UTI, hyponatremia-[facility] 10/21/16 Hospitalization History stent placed 02/02/17 Hospitalization History stent placed 02/2017 Hospitalization History [facility]- Syncope, Dehydration and Hypotension. 06/08/2017
--- OUTSIDE RECORDS SUMMARY | 2018-09-05 12:44 | XMS REPORT ---
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 Active 1758890872828 Problem Chronic idiopathic constipation K59.04 Active 78144668 Problem 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.4 Active 049952219 Problem Constipation K59.00 Active 22919229 Problem Bipolar affective disorder, current episode mixed, current episode severity unspecified F31.60 Active 480288695 Problem Arthritis of back M47.9 Active 31855222 Problem Psychosis, unspecified psychosis type F29 Active 54691007 Problem 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 Active 719086537 Problem Age-related incipient cataract of both eyes H25.093 Active 851401733 Problem Diabetes 1.5, 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 222469510 Problem Essential hypertension I10 Active [id number] ALLERGIES No Information ENCOUNTERS Encounter Location Date Diagnosis [place] [id number] [address] Jun, [facility] [id number] [place] [address] Jun, [place] [address] [address] May, [facility] [address] [address] Apr, [place] [address] [place] [id number] [place] [address] Apr, Diabetes E11.9 [place] [address] [address] Apr, Bipolar affective disorder, current episode mixed, current episode severity unspecified F31.60 [place] [address] [address] Apr, [place] [address] [address] Mar, [place] [address] [address] Mar, Psychosis, unspecified psychosis type F29 and Bipolar affective disorder, current episode mixed, current episode severity unspecified F31.60 [place] [address] [address] Mar, [facility] [address] [address] Mar, Low back pain M54.5 and Arthritis of back M47.9 [place] [address] [address] Mar, [facility] [id number] [place] [address] Feb, Abdominal pain R10.9 and Constipation K59.00 [place] [address] [address] [id number] [place] [address] Feb, Vertigo R42 ; 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 ; Hyperglycemia R73.9 and Essential hypertension I10 [place] [address] [address] Jan, [place] [address] [address] [id number] [place] [address] Dec, [place] [address] [address] Dec, [facility] [id number] [place] [address] Dec, Dizziness R42 and Diabetes 1.5, 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 [facility] [id number] [place] [address] Dec, [facility] [address] [address] Dec, [place] [address] [id number] [place] [address] Dec, Psychosis, unspecified psychosis type F29 and Bipolar affective disorder, current episode mixed, current episode severity unspecified F31.60 [place] [address] [id number] [place] [address] Dec, [place] [address] [address] [id number] [place] [address] Dec, [place] [address] [address] [id number] [place] [address] Dec, 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 ; long-term current use of insulin Z79.4 and Hyperglycemia R73.9 [facility] [id number] [place] [address] Oct, [place] [address] [id number] [place] [address] Oct, [facility] [address] [id number] [place] [address] Oct, [place] [address] [address] [id number] [place] [address] Sep, [facility] [address] [place] [address] Aug, Upper respiratory tract infection, unspecified type J06.9 ; Chronic idiopathic constipation K59.04 ; Fluid level behind tympanic membrane of both ears H65.93 and Abdominal pain R10.9 [facility] [id number] [place] [address] July, Diabetes E11.9 [place] [address] [place] [id number] Jun, Dehydration E86.0 ; Diabetes E11.9 and Hyperglycemia R73.9 [place] [address] [address] Jun, [place] [address] [address] Jun, Vertigo R42 ; Syncope, unspecified syncope type R55 ; Diabetes E11.9 and Hyperglycemia R73.9 [place] [address] [id number] [place] [address] May, Psychosis, unspecified psychosis type F29 and Bipolar affective disorder, current episode mixed, current episode severity unspecified F31.60 [place] [address] [id number] [place] [address] May, [place] [address] [address] May, Diabetes E11.9 [facility] [id number] [place] [id number] Apr, Dental examination Z01.20 and Dental caries K02.9 [place] [address] [place] [address] [id number] [place] [address] Apr, Dental examination Z01.20 and Dental abscess K04.7 [place] [address] [address] [id number] [place] [address] Mar, Psychosis, unspecified psychosis type F29 and Bipolar affective disorder, current episode mixed, current episode severity unspecified F31.60 [place] [address] [address] [id number] [place] [address] Mar, [facility] [address] [place] [id number] [place] [address] Feb, [facility] [address] [place] [id number] [place] [address] Feb, Left wrist pain M25.532 [facility] [id number] [place] [address] Jan, [facility] [address] [address] [id number] [place] [address] Jan, Psychosis, unspecified psychosis type F29 and Bipolar affective disorder, current episode mixed, current episode severity unspecified F31.60 [place] [address] [address] Jan, Diabetes E11.9 [facility] [address] [place] [id number] [place] [address] Jan, Left wrist pain M25.532 [place] [address] [address] [id number] [place] [address] Dec, Psychosis, unspecified psychosis type F29 and Bipolar affective disorder, current episode mixed, current episode severity unspecified F31.60 [place] [address] [address] [id number] [place] [address] Dec, Syncope, unspecified syncope type R55 ; Vertigo R42 ; Diabetes E11.9 ; Psychosis, unspecified psychosis type F29 and Fall, initial encounter W19.XXXA [place] [address] [address] [id number] [place] [address] Dec, Diabetes E11.9 ; Neck pain M54.2 and Vertigo R42 [place] [address] [id number] [place] [address] Nov, [facility] [id number] [place] [address] Nov, [place] [address] [address] [id number] [place] [address] Nov, [place] [address] [facility] [id number] [address] Nov, Diabetes E11.9 [facility] [address] [facility] [id number] [address] Nov, Diabetes E11.9 [facility] [address] [place] [address] Oct, [facility] [address] [id number] [id number] Oct, [facility] [address] [facility] [id number] [address] Oct, [facility] [address] [address] Oct, Bipolar affective disorder, current episode mixed, current episode severity unspecified F31.60 [facility] [id number] [id number] Sep, [facility] [address] [address] Sep, Bipolar affective disorder, current episode mixed, current episode severity unspecified F31.60 [facility] [address] [id number] [address] Sep, Acute maxillary sinusitis, recurrence not specified J01.00 [facility] [address] [place] [address] [id number] [address] Sep, Diabetes E11.9 [facility] [id number] [address] July, Diabetes E11.9 [facility] [address] [address] July, Diabetes E11.9 [facility] [address] [facility] [id number] [address] Jun, [facility] [address] [address] May, Bipolar affective disorder, current episode mixed, current episode severity unspecified F31.60 [facility] [id number] [place] [address] May, Acute non-recurrent maxillary sinusitis J01.00 [facility] [id number] [place] [address] 10 Apr, 2016 Psychosis, unspecified psychosis type F29 and Bipolar affective disorder, current episode mixed, current episode severity unspecified F31.60 [facility] [id number] [place] [address] 03 Apr, 2016 Dysuria R30.0 ; Other viral agents as the cause of diseases classified elsewhere B97.89 and Acute upper respiratory infection, unspecified J06.9 [place] [address] [id number] [place] [address] Mar, Diabetes E11.9 ; Urine leukocytes R82.99 and Psychosis, unspecified psychosis type F29 [place] [address] [id number] [place] [address] Mar, Diabetes E11.9 [place] [address] [id number] [place] [address] Feb, [place] [address] [id number] [place] [address] Jan, [place] [address] [id number] [place] [address] Dec, Psychosis, unspecified psychosis type F29 [facility] [address] [id number] [place] [address] Dec, [facility] [id number] [place] [address] Dec, [facility] [address] [id number] [place] [address] Dec, Psychosis, unspecified psychosis type F29 [place] [address] [id number] [place] [address] Nov, Schizoaffective disorder, unspecified type F25.9 [facility] [id number] [place] [address] Oct, [facility] [id number] [place] [address] Oct, Conjunctivitis of right eye, unspecified conjunctivitis type H10.9 [facility] [id number] [place] [address] Aug, [facility] [address] [id number] Jun, Encounter for dental examination Z01.20 [facility] [address] [address] Jun, Diabetes E11.9 and Bipolar affect, depressed F31.30 [facility] [id number] [place] [address] Jun, Other bipolar disorder F31.89 [facility] [address] [address] Jun, [facility] [id number] [place] [address] Apr, [facility] [id number] [place] [address] Dec, [facility] [id number] [place] [address] Dec, [facility] [id number] [place] [address] Sep, [facility] [id number] [place] [address] Jun, [facility] [id number] [place] [address] Jun, [facility] [place] [facility] [address] [id number] [place] [address] Mar, [facility] [place] [facility] [address] [id number] [place] [address] Mar, [facility] [place] [facility] [address] [id number] [place] [address] Nov, [facility] [place] [facility] [address] [id number] [place] [address] Nov, [facility] [place] [facility] [address] [id number] [place] [address] Sep, [facility] [place] [facility] [address] [id number] [place] [address] Sep, [facility] [place] [facility] [address] [id number] [place] [address] Sep, [facility] [place] [facility] [address] [id number] [place] [address] Sep, [facility] [place] [facility] [address] [id number] [place] [address] Sep, [facility] [place] [facility] [address] [id number] [place] [address] Aug, [facility] [place] [facility] [address] [id number] [place] [address] Aug, [facility] [place] [facility] [address] [id number] [place] [address] Aug, [facility] [place] [facility] [address] [id number] [place] [address] Aug, [facility] [place] [facility] [address] [id number] [place] [address] Aug, [facility] [place] [facility] [address] [id number] [place] [address] Aug, [facility] [place] [facility] [address] [id number] [place] [address] July, [facility] [place] [facility] [address] [id number] [place] [address] July, [facility] [place] [facility] [address] [id number] [place] [address] Jun, [facility] [place] [facility] [address] [id number] [place] [address] Jun, [facility] [place] [facility] [address] [id number] [place] [address] Jun, [facility] [place] [facility] [address] [id number] [place] [address] Jun, [facility] [place] [facility] [address] [id number] [place] [address] Jun, [facility] [place] [facility] [address] [id number] [place] [address] Jun, [facility] [place] [facility] [address] [id number] [place] [address] Jun, [facility] [place] [facility] [address] [id number] [place] [address] Jun, [facility] [place] [facility] [address] [id number] [place] [address] May, [facility] [place] [facility] [address] [id number] [place] [address] May, [facility] [place] [facility] [address] [id number] [place] [address] May, [facility] [place] [facility] [address] [id number] [place] [address] May, [facility] [place] [facility] [address] [id number] [place] [address] May, [facility] [place] [facility] [address] [id number] [place] [address] May, [facility] [place] [facility] [address] [id number] [place] [address] May, [facility] [address] [id number] [place] [address] May, [facility] [place] [facility] [address] [id number] [place] [address] May, [facility] [place] [facility] [address] [id number] [place] [address] Apr, [facility] [place] [facility] [address] [id number] [place] [address] Apr, [facility] [place] [facility] [address] [id number] [place] [address] Mar, [facility] [address] [id number] [place] [address] Mar, [facility] [address] [id number] [place] [address] Feb, [facility] [address] [id number] [place] [address] Feb, [facility] [place] [facility] [address] [id number] [place] [address] Nov, [facility] [address] [id number] [place] [address] Nov, [facility] [place] [facility] [address] [id number] [place] [address] Oct, [facility] [place] [facility] [address] [id number] [place] [address] Oct, [facility] [place] [facility] [address] [id number] [place] [address] Oct, [facility] [place] [facility] [address] [id number] [place] [address] Oct, [facility] [place] [facility] [address] [id number] [place] [address] Oct, [facility] [address] [id number] [place] [address] Sep, [facility] [place] [facility] [address] [id number] [place] [address] Sep, [facility] [place] [facility] [address] [id number] [place] [address] Sep, [facility] [place] [facility] [address] [id number] [place] [address] Sep, [facility] [address] [id number] [place] [address] Aug, [facility] [place] [facility] [address] [id number] [place] [address] Aug, [facility] [place] [facility] [address] [id number] [place] [address] Aug, [facility] [address] [id number] [place] [address] Aug, [facility] [place] [facility] [address] [id number] [place] [address] Jun, [facility] [place] [facility] [address] [id number] [place] [address] Jun, [facility] [place] [facility] [address] [id number] [place] [address] Jun, [facility] [place] [facility] [address] [id number] [address] Jun, [facility] [place] [facility] [address] [id number] [place] [address] May, [facility] [place] [facility] [address] [id number] [place] [address] May, [facility] [place] [facility] [address] [id number] [place] [address] May, [facility] [place] [facility] [address] [id number] [place] [address] 13 May, 2012 [facility] [address] [id number] [place] [address] 11 May, 2012 [facility] [address] [id number] [place] [address] 04 May, 2012 [facility] [address] [id number] [place] [address] 21 Apr, 2012 [facility] [place] [facility] [address] [id number] [place] [address] 20 Apr, 2012 [facility] [address] [id number] [place] [address] 19 Apr, 2012 [facility] [address] [id number] [place] [address] 19 Apr, 2012 [facility] [address] [id number] [place] [address] 19 Apr, 2012 [facility] [address] [id number] [place] [address] Feb, [facility] [address] [id number] [place] [address] Feb, [facility] [address] [facility] [id number] [place] [address] Feb, [facility] [address] [id number] [place] [address] Feb, [facility] [place] [facility] [address] [id number] [place] [address] Feb, [facility] [place] [facility] [address] [id number] [place] [address] Feb, [facility] [place] [facility] [address] [facility] [id number] [place] [address] Feb, [facility] [address] [id number] [place] [address] Feb, [facility] [address] [id number] [place] [address] 14 Feb, 2012 [facility] [address] [id number] [place] [address] 14 Feb, 2012 [facility] [address] [id number] [place] [address] 13 Feb, 2012 [facility] [address] [id number] [place] [address] Feb, [facility] [address] [id number] [place] [address] Feb, [facility] [address] [id number] [place] [address] Feb, [facility] [address] [id number] [place] [address] Feb, [facility] [address] [id number] [place] [address] Feb, [facility] [address] [id number] [place] [address] Feb, [facility] [address] [id number] [place] [address] Feb, [facility] [address] [id number] [place] [address] Feb, [facility] [place] [facility] [address] [id number] [place] [address] Feb, [facility] [place] [facility] [address] [id number] [place] [address] Feb, [facility] [place] [facility] [address] [id number] [place] [address] Feb, [facility] [place] [facility] [address] [id number] [place] [address] Feb, [facility] [place] [facility] [address] [id number] [place] [address] Feb, [facility] [place] [facility] [address] [id number] [place] [address] Feb, [facility] [place] [facility] [address] [id number] [place] [address] Feb, [facility] [place] [facility] [address] [id number] [place] [address] Jan, [facility] [place] [facility] [address] [id number] [place] [address] Jan, [facility] [place] [facility] [address] [id number] [place] [address] Dec, [facility] [place] [facility] [address] [id number] [place] [address] Dec, [facility] [place] [facility] [address] [id number] [place] [address] Dec, [facility] [place] [facility] [address] [id number] [place] [address] Dec, [facility] [place] [facility] [address] [id number] [place] [address] Nov, [facility] [place] [facility] [address] [id number] [place] [address] Nov, [facility] [place] [facility] [address] [id number] [place] [address] Nov, [facility] [place] [facility] [address] [id number] [place] [address] Nov, [facility] [place] [facility] [address] [id number] [place] [address] Oct, [facility] [place] [facility] [address] [id number] [place] [address] Oct, [facility] [place] [facility] [address] [id number] [place] [address] Sep, [facility] [place] [facility] [address] [id number] [place] [address] 17 Sep, 2011 [facility] [address] [id number] [place] [address] Sep, [facility] [place] [facility] [address] [id number] [place] [address] Aug, [facility] [address] [id number] [place] [address] 26 Aug, 2011 [facility] [address] [id number] [place] [address] 14 Aug, 2011 [facility] [address] [id number] [place] [address] Aug, [facility] [address] [id number] [place] [address] Aug, [facility] [address] [id number] [place] [address] July, [facility] [address] [id number] [place] [address] July, [facility] [address] [id number] [place] [address] July, [facility] [address] [id number] [place] [address] July, [facility] [address] [id number] [place] [address] July, [facility] [address] [id number] [place] [address] Jun, [facility] [place] [facility] [address] [id number] [place] [address] May, [facility] [place] [facility] [address] [id number] [place] [address] 16 Apr, 2011 [facility] [place] [facility] [address] [id number] [place] [address] 13 Apr, 2011 [facility] [address] [id number] [place] [address] 13 Apr, 2011 [facility] [place] [facility] [address] [id number] [place] [address] Mar, [facility] [place] [facility] [address] [id number] [place] [address] Mar, [facility] [place] [facility] [address] [id number] [place] [address] Mar, [facility] [place] [facility] [address] [id number] [place] [address] Mar, [facility] [place] [facility] [address] [id number] [place] [address] Mar, [facility] [place] [facility] [address] [id number] [place] [address] Mar, [facility] [place] [facility] [address] [id number] [place] [address] Mar, [facility] [place] [facility] [address] [id number] [place] [address] Mar, [facility] [place] [facility] [address] [id number] [place] [address] Feb, [facility] [place] [facility] [address] [id number] [address] Feb, [facility] [place] [facility] [address] [id number] [place] [address] Feb, [facility] [place] [facility] [address] [id number] [place] [address] Feb, [facility] [place] [facility] [address] [id number] [place] [address] Feb, [facility] [place] [facility] [address] [id number] [place] [address] Jan, [facility] [place] [facility] [address] [id number] [place] [address] Jan, [facility] [address] [id number] [place] [address] Jan, [facility] [place] [facility] [address] [id number] [place] [address] Jan, [facility] [place] [facility] [address] [id number] [place] [address] 14 Dec, 2010 [facility] [place] [facility] [address] [id number] [place] [address] 14 Dec, 2010 [facility] [place] [facility] [address] [id number] [place] [address] Sep, [facility] [place] [facility] [address] [id number] [place] [address] July, [facility] [place] [facility] [address] [id number] [place] [address] Apr, [facility] [place] [facility] [address] [id number] [place] [address] Mar, [facility] [place] [facility] [address] [id number] [place] [address] Feb, [facility] [place] [facility] [address] [id number] [place] [address] Feb, [facility] [place] [facility] [address] [id number] [place] [address] Feb, [facility] [place] [facility] [address] [id number] [place] [address] Feb, [facility] [place] [facility] [address] [id number] [place] [address] 15 Feb, 2010 [facility] [place] [facility] [address] [id number] [place] [address] Feb, [facility] [place] [facility] [address] [id number] [place] [address] Feb, [facility] [address] [facility] [id number] [place] [address] Dec, [facility] [address] [facility] [id number] [address] Jan, [facility] [address] [facility] [id number] [place] [address] Apr, IMMUNIZATIONS No Known Immunizations SOCIAL HISTORY Never Assessed REASON FOR VISIT PALS IN [facility] PLAN OF CARE VITAL SIGNS MEDICATIONS Unknown [...] disorder Surgical History Carotid Surgical History Bypass 1999 Surgical History cholecystectomy Surgical History colonscopy Surgical History Pacemaker Hospitalization History Stroke Hospitalization History Surgery Hospitalization History Hyperglycemia 2012 Hospitalization History [facility] 11/28/2015-12/04/2015 2016 Hospitalization History Schizophrenia 09/26/16 Hospitalization History AMS, UTI, hyponatremia-[facility] 10/21/16 Hospitalization History stent placed 02/02/17 Hospitalization History stent placed 02/2017 Hospitalization History [facility]- Syncope, Dehydration and Hypotension. 06/08/2017
--- OUTSIDE RECORDS SUMMARY | 2018-09-05 12:44 | XMS REPORT ---
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 Name Role Phone Migration, Doctor Unavailable Unavailable PROBLEMS Type Condition ICD9-CM Code YUT25-FD Code Onset Dates Condition Status SNOMED Code Problem Diabetes E11.9 Active 79560622 Problem Pacemaker Z95.0 Active 437367631 Problem CVA (cerebral vascular accident) I63.9 Active 926062648 Problem Coronary artery disease involving [place] coronary artery of [place] heart without angina pectoris I25.10 Active 6954041088613 Problem Chronic idiopathic constipation K59.04 Active 90331248 Problem 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 Active 864976746 Problem Constipation K59.00 Active 05549189 Problem Bipolar affective disorder, current episode mixed, current episode severity unspecified F31.60 Active 805082535 Problem Arthritis of back M47.9 Active 13988902 Problem Psychosis, unspecified psychosis type F29 Active 83463984 Problem 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 Active 091223948 Problem Age-related incipient cataract of both eyes H25.093 Active 764138046 Problem Diabetes 1.5, 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 797161355 Problem Essential hypertension I10 Active 06550625 ALLERGIES No Information ENCOUNTERS Encounter Location Date Diagnosis [place] [id number] [address] Jun, [facility] [id number] [place] [address] Jun, 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 and 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 [facility] [id number] [place] [address] May, [facility] [address] [address] Apr, [place] [id number] [place] [address] Apr, Diabetes E11.9 [place] [address] [address] Apr, Bipolar affective disorder, current episode mixed, current episode severity unspecified F31.60 [place] [address] [address] Apr, [facility] [address] [address] Mar, [place] [address] [address] Mar, Psychosis, unspecified psychosis type F29 and Bipolar affective disorder, current episode mixed, current episode severity unspecified F31.60 [place] [address] [address] Mar, [facility] [address] [address] Mar, Low back pain M54.5 and Arthritis of back M47.9 [place] [address] [address] Mar, [facility] [id number] [place] [address] Feb, Abdominal pain R10.9 and Constipation K59.00 [place] [address] [address] Feb, Vertigo R42 ; 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 ; Hyperglycemia R73.9 and Essential hypertension I10 [place] [address] [address] Jan, [place] [id number] [place] [address] Dec, [place] [address] [address] Dec, [facility] [id number] [place] [address] Dec, Dizziness R42 and Diabetes 1.5, 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 [facility] [id number] [place] [address] Dec, [place] [address] [address] Dec, [facility] [id number] [place] [address] Dec, Psychosis, unspecified psychosis type F29 and Bipolar affective disorder, current episode mixed, current episode severity unspecified F31.60 [place] [id number] [place] [address] Dec, [place] [address] [address] Dec, [place] [id number] [place] [address] Dec, 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 ; 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 and Hyperglycemia R73.9 [facility] [id number] [place] [address] Oct, [place] [id number] [place] [address] Oct, [place] [id number] [place] [address] Oct, [place] [id number] [place] [address] Sep, [facility] [id number] [place] [address] Aug, Upper respiratory tract infection, unspecified type J06.9 ; Chronic idiopathic constipation K59.04 ; Fluid level behind tympanic membrane of both ears H65.93 and Abdominal pain R10.9 [facility] [id number] [place] [address] July, Diabetes E11.9 [facility] [address] [address] Jun, Dehydration E86.0 ; Diabetes E11.9 and Hyperglycemia R73.9 [place] [address] [address] Jun, [place] [address] [address] Jun, Vertigo R42 ; Syncope, unspecified syncope type R55 ; Diabetes E11.9 and Hyperglycemia R73.9 [place] [id number] [place] [address] May, Psychosis, unspecified psychosis type F29 and Bipolar affective disorder, current episode mixed, current episode severity unspecified F31.60 [place] [id number] [place] [address] May, [place] [id number] [place] [address] May, Diabetes E11.9 [facility] [id number] [place] [id number] Apr, Dental examination Z01.20 and Dental caries K02.9 [place] [id number] [place] [address] Apr, Dental examination Z01.20 and Dental abscess K04.7 [place] [id number] [place] [address] Mar, Psychosis, unspecified psychosis type F29 and Bipolar affective disorder, current episode mixed, current episode severity unspecified F31.60 [place] [id number] [place] [address] Mar, [facility] [id number] [place] [address] Feb, [facility] [id number] [place] [address] Feb, Left wrist pain M25.532 [facility] [id number] [place] [address] Jan, [place] [id number] [place] [address] Jan, Psychosis, unspecified psychosis type F29 and Bipolar affective disorder, current episode mixed, current episode severity unspecified F31.60 [place] [id number] [place] [address] Jan, Diabetes E11.9 [facility] [place] [id number] [place] [address] Jan, Left wrist pain M25.532 [place] [id number] [place] [address] Dec, Psychosis, unspecified psychosis type F29 and Bipolar affective disorder, current episode mixed, current episode severity unspecified F31.60 [place] [id number] [place] [address] Dec, Syncope, unspecified syncope type R55 ; Vertigo R42 ; Diabetes E11.9 ; Psychosis, unspecified psychosis type F29 and Fall, initial encounter W19.XXXA [place] [id number] [place] [address] Dec, Diabetes E11.9 ; Neck pain M54.2 and Vertigo R42 [place] [id number] [place] [address] Nov, [facility] [id number] [place] [address] Nov, [place] [id number] [place] [address] Nov, [place] [id number] [address] 06 Nov, 2016 Diabetes E11.9 [facility] [address], [place] [address] Nov, Diabetes E11.9 [facility] [address], [place] [address] Oct, [facility] [id number] [id number] Oct, [facility] [address], [place] [address] Oct, [facility] [address], [place] [address] Oct, Bipolar affective disorder, current episode mixed, current episode severity unspecified F31.60 [facility] [id number] [id number] Sep, [facility] [address], [place] [address] Sep, Bipolar affective disorder, current episode mixed, current episode severity unspecified F31.60 [facility] [address], [place] [address] Sep, Acute maxillary sinusitis, recurrence not specified J01.00 [facility] [id number], [place] [address] Sep, Diabetes E11.9 [facility] [id number] [address] July, Diabetes E11.9 [facility] [id number] [address] July, Diabetes E11.9 [facility] [address], [place] [address] Jun, [facility] [id number] [address] May, Bipolar affective disorder, current episode mixed, current episode severity unspecified F31.60 [facility] [id number] [place] [address] May, Acute non-recurrent maxillary sinusitis J01.00 [facility] [id number] [place] [address] 10 Apr, 2016 Psychosis, unspecified psychosis type F29 and Bipolar affective disorder, current episode mixed, current episode severity unspecified F31.60 [facility] [id number] [place] [address] Apr, Dysuria R30.0 ; Other viral agents as the cause of diseases classified elsewhere B97.89 and Acute upper respiratory infection, unspecified J06.9 [place] [id number] [place] [address] Mar, Diabetes E11.9 ; Urine leukocytes R82.99 and Psychosis, unspecified psychosis type F29 [place] [id number] [place] [address] Mar, Diabetes E11.9 [place] [id number] [place] [address] Feb, [place] [id number] [place] [address] Jan, [place] [id number] [place] [address] Dec, Psychosis, unspecified psychosis type F29 [facility] [id number] [place] [address] Dec, [facility] [id number] [place] [address] Dec, [facility] [id number] [place] [address] Dec, Psychosis, unspecified psychosis type F29 [place] [address] [place] [address] Nov, Schizoaffective disorder, unspecified type F25.9 [facility] [id number] [place] [address] Oct, [facility] [id number] [place] [address] Oct, Conjunctivitis of right eye, unspecified conjunctivitis type H10.9 [facility] [id number] [place] [address] Aug, [facility] [id number] [place] [id number] Jun, Encounter for dental examination Z01.20 [facility] [id number] [place] [address] Jun, Diabetes E11.9 and Bipolar affect, depressed F31.30 [facility] [id number] [place] [address] Jun, Other bipolar disorder F31.89 [facility] [id number] [place] [address] Jun, [facility] [id number] [place] [address] Apr, [facility] [id number] [place] [address] Dec, [facility] [id number] [place] [address] Dec, [facility] [id number] [place] [address] Sep, [facility] [id number] [place] [address] Jun, [facility] [id number] [place] [address] Jun, [facility] [address] [place] [id number] [address] Mar, [facility] [address] [id number] [place] [address] Mar, [facility] [place] [facility] [address] [id number] [place] [address] Nov, [facility] [place] [facility] [address] [id number] [place] [address] Nov, [facility] [place] [facility] [address] [id number] [place] [address] Sep, [facility] [place] [facility] [address] [id number] [place] [address] Sep, [facility] [place] [facility] [address] [id number] [place] [address] Sep, [facility] [place] [facility] [address] [id number] [place] [address] Sep, [facility] [place] [facility] [address] [id number] [place] [address] Sep, [facility] [place] [facility] [address] [id number] [place] [address] Aug, [facility] [place] [facility] [address] [id number] [place] [address] Aug, [facility] [place] [facility] [address] [id number] [place] [address] Aug, [facility] [place] [facility] [address] [id number] [place] [address] Aug, [facility] [place] [facility] [address] [id number] [place] [address] Aug, [facility] [place] [facility] [address] [id number] [place] [address] Aug, [facility] [place] [facility] [address] [id number] [place] [address] July, [facility] [place] [facility] [address] [id number] [place] [address] July, [facility] [place] [facility] [address] [id number] [place] [address] Jun, [facility] [place] [facility] [address] [id number] [place] [address] Jun, [facility] [place] [facility] [address] [id number] [place] [address] Jun, [facility] [place] [facility] [address] [id number] [place] [address] Jun, [facility] [place] [facility] [address] [id number] [place] [address] Jun, [facility] [place] [facility] [address] [id number] [place] [address] Jun, [facility] [place] [facility] [address] [id number] [place] [address] Jun, [facility] [place] [facility] [address] [id number] [place] [address] Jun, [facility] [place] [facility] [address] [id number] [place] [address] May, [facility] [place] [facility] [address] [id number] [place] [address] May, [facility] [place] [facility] [address] [id number] [place] [address] May, [facility] [place] [facility] [address] [id number] [place] [address] May, [facility] [place] [facility] [address] [id number] [place] [address] May, [facility] [place] [facility] [address] [id number] [place] [address] May, [facility] [place] [facility] [address] [id number] [address] May, [facility] [address] [id number] [place] [address] May, [facility] [place] [facility] [address] [id number] [place] [address] May, [facility] [place] [facility] [address] [id number] [place] [address] Apr, [facility] [place] [facility] [address] [id number] [place] [address] Apr, [facility] [place] [facility] [address] [id number] [place] [address] Mar, [facility] [place] [facility] [address] [id number] [place] [address] Mar, [facility] [address] [id number] [place] [address] Feb, [facility] [place] [facility] [address] [id number] [place] [address] Feb, [facility] [place] [facility] [address] [id number] [place] [address] Nov, [facility] [place] [facility] [address] [id number] [place] [address] Nov, [facility] [place] [facility] [address] [id number] [place] [address] Oct, [facility] [place] [facility] [address] [id number], [place] [address] Oct, [facility] [place] [facility] [address] [id number] [place] [address] Oct, [facility] [place] [facility] [address] [id number] [place] [address] Oct, [facility] [place] [facility] [address] [id number] [place] [address] Oct, [facility] [place] [facility] [address] [id number] [place] [address] 23 Sep, 2012 [facility] [place] [facility] [address] [id number] [place] [address] Sep, [facility] [place] [facility] [address] [id number] [place] [address] Sep, [facility] [place] [facility] [address] [id number] [place] [address] Sep, [facility] [place] [facility] [address] [id number] [place] [address] Aug, [facility] [place] [facility] [address] [id number] [place] [address] Aug, [facility] [place] [facility] [address] [id number] [place] [address] Aug, [facility] [place] [facility] [address] [id number] [place] [address] Aug, [facility] [place] [facility] [address] [id number] [place] [address] Jun, [facility] [place] [facility] [address] [id number] [place] [address] Jun, [facility] [place] [facility] [address] [id number] [place] [address] Jun, [facility] [place] [facility] [address] [id number] [place] [address] 17 Jun, 2012 [facility] [place] [facility] [address] [id number] [place] [address] 21 May, 2012 [facility] [place] [facility] [address] [id number] [place] [address] 18 May, 2012 [facility] [place] [facility] [address] [id number] [place] [address] 18 May, 2012 [facility] [place] [facility] [address] [id number] [place] [address] 13 May, 2012 [facility] [address] [id number] [place] [address] 11 May, 2012 [facility] [place] [facility] [address] [id number] [place] [address] 04 May, 2012 [facility] [address] [id number] [place] [address] 21 Apr, 2012 [facility] [place] [facility] [address] [id number] [place] [address] 20 Apr, 2012 [facility] [address] [id number] [place] [address] Apr, [facility] [address] [id number] [place] [address] Apr, [facility] [address] [id number] [place] [address] Apr, [facility] [address] [id number] [place] [address] Feb, [facility] [address] [id number] [place] [address] Feb, [facility] [place] [facility] [address] [id number] [place] [address] Feb, [facility] [address] [id number] [place] [address] Feb, [facility] [place] [facility] [address] [id number] [place] [address] Feb, [facility] [place] [facility] [address] [id number] [place] [address] Feb, [facility] [place] [facility] [address] [facility] [id number] [place] [address] Feb, [facility] [place] [facility] [address] [id number] [place] [address] Feb, [facility] [place] [facility] [address] [id number] [place] [address] 14 Feb, 2012 [facility] [address] [id number] [place] [address] 14 Feb, 2012 [facility] [address] [id number] [place] [address] 13 Feb, 2012 [facility] [address] [id number] [place] [address] 13 Feb, 2012 [facility] [address] [id number] [place] [address] 12 Feb, 2012 [facility] [address] [id number] [place] [address] 12 Feb, 2012 [facility] [address] [id number] [place] [address] 12 Feb, 2012 [facility] [address] [id number] [place] [address] 12 Feb, 2012 [facility] [address] [id number] [place] [address] 12 Feb, 2012 [facility] [address] [id number] [place] [address] Feb, [facility] [address] [id number] [place] [address] Feb, [facility] [address] [id number] [place] [address] Feb, [facility] [address] [id number] [place] [address] Feb, [facility] [facility] [address] [id number] [place] [address] Feb, [facility] [address] [id number] [place] [address] Feb, [facility] [address] [id number] [place] [address] Feb, [facility] [place] [facility] [address] [id number] [place] [address] Feb, [facility] [place] [facility] [address] [id number] [place] [address] Feb, [facility] [place] [facility] [address] [id number] [place] [address] Jan, [facility] [place] [facility] [address] [id number] [place] [address] Jan, [facility] [place] [facility] [address] [id number] [place] [address] Dec, [facility] [place] [facility] [address] [id number] [place] [address] Dec, [facility] [place] [facility] [address] [id number] [place] [address] Dec, [facility] [place] [facility] [address] [id number] [place] [address] Dec, [facility] [place] [facility] [address] [id number] [place] [address] Nov, [facility] [place] [facility] [address] [id number] [place] [address] Nov, [facility] [place] [facility] [address] [id number] [place] [address] Nov, [facility] [place] [facility] [address] [id number] [place] [address] Nov, [facility] [place] [facility] [address] [id number] [place] [address] Oct, [facility] [place] [facility] [address] [id number] [place] [address] Oct, [facility] [place] [facility] [address] [id number] [place] [address] Sep, [facility] [place] [facility] [address] [id number] [place] [address] 17 Sep, 2011 [facility] [address] [id number] [place] [address] Sep, [facility] [place] [facility] [address] [id number] [place] [address] Aug, [facility] [place] [facility] [address] [id number] [place] [address] Aug, [facility] [place] [facility] [address] [id number] [place] [address] 14 Aug, 2011 [facility] [place] [facility] [address] [id number] [place] [address] Aug, [facility] [place] [facility] [address] [id number] [place] [address] Aug, [facility] [address] [id number] [place] [address] July, [facility] [facility] [address] [id number] [place] [address] July, [facility] [place] [facility] [address] [id number] [place] [address] July, [facility] [place] [facility] [address] [id number] [place] [address] July, [facility] [place] [facility] [address] [id number] [place] [address] July, [facility] [place] [facility] [address] [id number] [place] [address] Jun, [facility] [place] [facility] [address] [id number] [place] [address] May, [facility] [place] [facility] [address] [id number] [place] [address] 16 Apr, 2011 [facility] [place] [facility] [address] [id number] [place] [address] 13 Apr, 2011 [facility] [place] [facility] [address] [id number] [place] [address] Apr, [facility] [address] [id number] [place] [address] Mar, [facility] [address] [id number] [place] [address] Mar, [facility] [address] [id number] [place] [address] Mar, [facility] [address] [id number] [place] [address] Mar, [facility] [address] [id number] [place] [address] Mar, [facility] [address] [id number] [place] [address] Mar, [facility] [address] [id number] [place] [address] Mar, [facility] [address] [id number] [place] [address] Mar, [facility] [address] [id number] [place] [address] Feb, [facility] [address] [id number] [place] [address] Feb, [facility] [address] [id number] [place] [address] Feb, [facility] [address] [id number] [place] [address] Feb, [facility] [place] [facility] [address] [id number] [place] [address] Feb, [facility] [address] [id number] [place] [address] Jan, [facility] [address] [id number] [place] [address] Jan, [facility] [place] [facility] [address] [id number] [place] [address] Jan, [facility] [place] [facility] [address] [id number] [place] [address] Jan, [facility] [place] [facility] [address] [id number] [place] [address] 14 Dec, 2010 [facility] [place] [facility] [address] [id number] [place] [address] 14 Dec, 2010 [facility] [place] [facility] [address] [id number] [place] [address] Sep, [facility] [place] [facility] [address] [id number] [place] [address] July, [facility] [place] [facility] [address] [id number] [place] [address] Apr, [facility] [place] [facility] [address] [id number] [place] [address] Mar, [facility] [place] [facility] [address] [id number] [place] [address] Feb, [facility] [place] [facility] [address] [id number] [place] [address] Feb, [facility] [place] [facility] [address] [id number] [place] [address] Feb, [facility] [place] [facility] [address] [id number] [place] [address] Feb, [facility] [place] [facility] [address] [id number] [place] [address] 15 Feb, 2010 [facility] [place] [facility] [address] [id number] [place] [address] Feb, [facility] [place] [facility] [address] [id number] [place] [address] Feb, [facility] [place] [facility] [address] [facility] [id number] [place] [address] Dec, [facility] [address] [facility] [id number] [place] [address] Jan, [facility] [address] [facility] [id number] [place] [address] Apr, IMMUNIZATIONS No Known Immunizations SOCIAL HISTORY Never Assessed REASON FOR VISIT EMR-[facility] PLAN OF CARE VITAL SIGNS MEDICATIONS Unknown [...] Hospitalization History Hyperglycemia 2012 Hospitalization History [facility] 11/28/2015-12/04/2015 2016 Hospitalization History Schizophrenia 09/26/16 Hospitalization History AMS, UTI, hyponatremia-[facility] 10/21/16 Hospitalization History stent placed 02/02/17 Hospitalization History stent placed 02/2017 Hospitalization History [facility]- Syncope, Dehydration and Hypotension. 06/08/2017
--- OUTSIDE RECORDS SUMMARY | 2018-09-05 12:45 | XMS REPORT ---
Author Author Migration, Doctor Organization [facility] Address Unknown Phone Unavailable Care Team Providers Care Vascular Technician Name Role Phone Migration, Doctor Unavailable Unavailable PROBLEMS Type Condition ICD9-CM Code CEF92-TA Code Onset Dates Condition Status SNOMED Code Problem Diabetes E11.9 Active 52709896 Problem Pacemaker Z95.0 Active 835606216 Problem CVA (cerebral vascular accident) I63.9 Active 767026201 Problem Coronary artery disease involving [place] coronary artery of [place] heart without angina pectoris I25.10 Active 6540941834612 Problem Chronic idiopathic constipation K59.04 Active 42825907 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 221719753 Problem Constipation K59.00 Active 27718657 Problem Bipolar affective disorder, current episode mixed, current episode severity unspecified F31.60 Active 918422577 Problem Arthritis of back M47.9 Active 64285226 Problem Psychosis, unspecified psychosis type F29 Active 56556714 Problem 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 Active 027205836 Problem Age-related incipient cataract of both eyes H25.093 Active 995691951 Problem Diabetes 1.5, 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 770282436 Problem Essential hypertension I10 Active 81438113 ALLERGIES No Information ENCOUNTERS Encounter Location Date Diagnosis [facility] [address] [address] Jun, [facility] [id number] [place] [address] Jun, [facility] [id number] [place] [address] May, [facility] [id number] [place] [address] Apr, [facility] [address] [address] Apr, Diabetes E11.9 [facility] [id number] [place] [address] Apr, Bipolar affective disorder, current episode mixed, current episode severity unspecified F31.60 [facility] [id number] [place] [address] Apr, [facility] [address] [address] Mar, [facility] [id number] [place] [address] Mar, Psychosis, unspecified psychosis type F29 and Bipolar affective disorder, current episode mixed, current episode severity unspecified F31.60 [facility] [id number] [place] [address] Mar, [facility] [id number] [place] [address] Mar, Low back pain M54.5 and Arthritis of back M47.9 [facility] [id number] [place] [address] Mar, [facility] [id number] [place] [address] Feb, Abdominal pain R10.9 and Constipation K59.00 [facility] [id number] [place] [address] Feb, Vertigo R42 ; 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 ; Hyperglycemia R73.9 and Essential hypertension I10 [facility] [id number] [place] [address] Jan, [facility] [address] [address] Dec, [facility] [id number] [place] [address] Dec, [facility] [address] [place] [address] Dec, Dizziness R42 and Diabetes 1.5, 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 [facility] [address] [address] Dec, [facility] [address] [address] Dec, [facility] [address] [address] Dec, Psychosis, unspecified psychosis type F29 and Bipolar affective disorder, current episode mixed, current episode severity unspecified F31.60 [facility] [address] [address] Dec, [facility] [address] [address] Dec, [facility] [address] [address] Dec, 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 ; 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 and Hyperglycemia R73.9 [facility] [address] [address] Oct, [facility] [address] [address] Oct, [facility] [address] [address] Oct, [facility] [id number] [place] [address] Sep, [facility] [address] [address] Aug, Upper respiratory tract infection, unspecified type J06.9 ; Chronic idiopathic constipation K59.04 ; Fluid level behind tympanic membrane of both ears H65.93 and Abdominal pain R10.9 [facility] [address] [address] July, Diabetes E11.9 [facility] [id number] [place] [address] Jun, Dehydration E86.0 ; Diabetes E11.9 and Hyperglycemia R73.9 [facility] [id number] [place] [address] Jun, [facility] [address] [address] Jun, Vertigo R42 ; Syncope, unspecified syncope type R55 ; Diabetes E11.9 and Hyperglycemia R73.9 [facility] [id number] [place] [address] May, Psychosis, unspecified psychosis type F29 and Bipolar affective disorder, current episode mixed, current episode severity unspecified F31.60 [facility] [id number] [place] [address] May, [facility] [id number] [place] [address] May, Diabetes E11.9 [facility] [address] [id number] Apr, Dental examination Z01.20 and Dental caries K02.9 [facility] [id number] [place] [address] Apr, Dental examination Z01.20 and Dental abscess K04.7 [facility] [id number] [place] [address] Mar, Psychosis, unspecified psychosis type F29 and Bipolar affective disorder, current episode mixed, current episode severity unspecified F31.60 [facility] [id number] [place] [address] Mar, [facility] [id number] [place] [address] Feb, [facility] [id number] [place] [address] Feb, Left wrist pain M25.532 [facility] [id number] [place] [address] Jan, [facility] [id number] [place] [address] Jan, Psychosis, unspecified psychosis type F29 and Bipolar affective disorder, current episode mixed, current episode severity unspecified F31.60 [facility] [id number] [place] [address] Jan, Diabetes E11.9 [facility] [id number] [place] [address] Jan, Left wrist pain M25.532 [facility] [id number] [place] [address] Dec, Psychosis, unspecified psychosis type F29 and Bipolar affective disorder, current episode mixed, current episode severity unspecified F31.60 [facility] [id number] [place] [address] Dec, Syncope, unspecified syncope type R55 ; Vertigo R42 ; Diabetes E11.9 ; Psychosis, unspecified psychosis type F29 and Fall, initial encounter W19.XXXA [facility] [id number] [place] [address] Dec, Diabetes E11.9 ; Neck pain M54.2 and Vertigo R42 [facility] [id number] [place] [address] Nov, [facility] [id number] [place] [address] Nov, [facility] [id number] [place] [address] Nov, [facility] [id number] [place] [address] Nov, Diabetes E11.9 [facility] [address] [id number] [address] Nov, Diabetes E11.9 [facility] [address] [id number], [place] [address] Oct, [facility] [address] [id number] [id number] Oct, [facility] [address] [id number], [place] [address] Oct, [facility] [address] [id number], [place] [address] Oct, Bipolar affective disorder, current episode mixed, current episode severity unspecified F31.60 [facility] [address] [id number] [id number] Sep, [facility] [address] [place] [address] Sep, Bipolar affective disorder, current episode mixed, current episode severity unspecified F31.60 [facility] [address], [place] [address] Sep, Acute maxillary sinusitis, recurrence not specified J01.00 [facility] [id number] [address] Sep, Diabetes E11.9 [facility] [address], [place] [address] July, Diabetes E11.9 [facility] [address] [id number], [place] [address] July, Diabetes E11.9 [facility] [address] [id number], [place] [address] Jun, [facility] [id number] [address] May, Bipolar affective disorder, current episode mixed, current episode severity unspecified F31.60 [facility] [id number] [place] [address] May, Acute non-recurrent maxillary sinusitis J01.00 [facility] [id number] [place] [address] 10 Apr, 2016 Psychosis, unspecified psychosis type F29 and Bipolar affective disorder, current episode mixed, current episode severity unspecified F31.60 [facility] [id number] [place] [address] 03 Apr, 2016 Dysuria R30.0 ; Other viral agents as the cause of diseases classified elsewhere B97.89 and Acute upper respiratory infection, unspecified J06.9 [facility] [id number] [place] [address] Mar, Diabetes E11.9 ; Urine leukocytes R82.99 and Psychosis, unspecified psychosis type F29 [facility] [id number] [place] [address] Mar, Diabetes E11.9 [facility] [id number] [place] [address] Feb, [facility] [address] [address] Jan, [facility] [id number] [place] [address] Dec, Psychosis, unspecified psychosis type F29 [facility] [id number] [place] [address] Dec, [facility] [id number] [place] [address] Dec, [facility] [id number] [place] [address] Dec, Psychosis, unspecified psychosis type F29 [facility] [id number] [place] [address] Nov, Schizoaffective disorder, unspecified type F25.9 [facility] [id number] [place] [address] Oct, [facility] [id number] [place] [address] Oct, Conjunctivitis of right eye, unspecified conjunctivitis type H10.9 [facility] [id number] [place] [address] Aug, [facility] [id number] [place] [id number] Jun, Encounter for dental examination Z01.20 [facility] [address] [address] Jun, Diabetes E11.9 and Bipolar affect, depressed F31.30 [facility] [id number] [place] [address] Jun, Other bipolar disorder F31.89 [facility] [id number] [place] [address] Jun, [facility] [id number] [place] [address] Apr, [facility] [id number] [place] [address] Dec, [facility] [id number] [place] [address] Dec, [facility] [id number] [place] [address] Sep, [facility] [id number] [place] [address] Jun, [facility] [id number] [place] [address] Jun, [facility] [id number] [place] [address] Mar, [facility] [place] [facility] [address] [id number] [place] [address] Mar, [facility] [place] [facility] [address] [id number] [place] [address] Nov, [facility] [place] [facility] [address] [id number] [place] [address] Nov, [facility] [place] [facility] [address] [id number] [place] [address] Sep, [facility] [place] [facility] [address] [id number] [place] [address] Sep, [facility] [place] [facility] [address] [id number] [place] [address] Sep, [facility] [place] [facility] [address] [id number] [place] [address] Sep, [facility] [place] [facility] [address] [id number] [place] [address] Sep, [facility] [place] [facility] [address] [id number] [place] [address] Aug, [facility] [place] [facility] [address] [id number] [place] [address] Aug, [facility] [place] [facility] [address] [id number] [place] [address] Aug, [facility] [place] [facility] [address] [id number] [place] [address] Aug, [facility] [place] [facility] [address] [id number] [place] [address] Aug, [facility] [place] [facility] [address] [id number] [place] [address] Aug, [facility] [place] [facility] [address] [id number] [place] [address] July, [facility] [place] [facility] [address] [id number] [place] [address] July, [facility] [place] [facility] [address] [id number] [place] [address] Jun, [facility] [place] [facility] [address] [id number] [place] [address] Jun, [facility] [place] [facility] [address] [id number] [place] [address] Jun, [facility] [place] [facility] [address] [id number] [place] [address] Jun, [facility] [place] [facility] [address] [id number] [place] [address] Jun, [facility] [place] [facility] [address] [id number] [place] [address] Jun, [facility] [place] [facility] [address] [id number] [place] [address] Jun, [facility] [place] [facility] [address] [id number] [place] [address] Jun, [facility] [place] [facility] [address] [id number] [place] [address] May, [facility] [place] [facility] [address] [id number] [place] [address] May, [facility] [place] [facility] [address] [id number] [place] [address] May, [facility] [place] [facility] [address] [id number] [place] [address] May, [facility] [place] [facility] [address] [id number] [place] [address] May, [facility] [place] [facility] [address] [id number] [place] [address] May, [facility] [place] [facility] [address] [id number] [place] [address] May, [facility] [place] [facility] [address] [id number] [place] [address] May, [facility] [address] [id number] [place] [address] May, [facility] [place] [facility] [address] [id number] [place] [address] Apr, [facility] [place] [facility] [address] [id number] [place] [address] Apr, [facility] [place] [facility] [address] [id number] [place] [address] Mar, [facility] [address] [id number] [place] [address] Mar, [facility] [address] [id number] [place] [address] Feb, [facility] [place] [facility] [address] [id number] [place] [address] Feb, [facility] [address] [id number] [place] [address] Nov, [facility] [place] [facility] [address] [id number] [place] [address] Nov, [facility] [address] [id number] [place] [address] Oct, [facility] [place] [facility] [address] [id number] [place] [address] Oct, [facility] [place] [facility] [address] [id number] [place] [address] Oct, [facility] [place] [facility] [address] [id number] [place] [address] Oct, [facility] [place] [facility] [address] [id number] [place] [address] Oct, [facility] [place] [facility] [address] [id number] [place] [address] 23 Sep, 2012 [facility] [address] [id number] [place] [address] Sep, [facility] [place] [facility] [address] [id number] [place] [address] Sep, [facility] [place] [facility] [address] [id number] [place] [address] 02 Sep, 2012 [facility] [place] [facility] [address] [id number] [place] [address] Aug, [facility] [place] [facility] [address] [id number] [place] [address] Aug, [facility] [place] [facility] [address] [id number] [place] [address] Aug, [facility] [place] [facility] [address] [id number] [place] [address] Aug, [facility] [place] [facility] [address] [id number] [place] [address] Jun, [facility] [place] [facility] [address] [id number] [place] [address] 18 Jun, 2012 [facility] [place] [facility] [address] [id number] [place] [address] Jun, [facility] [place] [facility] [address] [id number], [place] [address] Jun, [facility] [place] [facility] [address] [id number], [place] [address] 21 May, 2012 [facility] [place] [facility] [address] [id number] [place] [address] 18 May, 2012 [facility] [place] [facility] [address] [id number] [place] [address] 18 May, 2012 [facility] [place] [facility] [address] [id number] [place] [address] 13 May, 2012 [facility] [place] [facility] [address] [id number] [place] [address] 11 May, 2012 [facility] [address] [id number] [place] [address] 04 May, 2012 [facility] [address] [id number] [place] [address] 21 Apr, 2012 [facility] [address] [id number] [place] [address] 20 Apr, 2012 [facility] [address] [id number] [place] [address] 19 Apr, 2012 [facility] [address] [id number] [place] [address] 19 Apr, 2012 [facility] [address] [id number] [place] [address] 19 Apr, 2012 [facility] [address] [id number] [place] [address] 20 Feb, 2012 [facility] [address] [id number] [place] [address] 20 Feb, 2012 [facility] [address] [id number] [place] [address] 19 Feb, 2012 [facility] [address] [id number] [place] [address] 19 Feb, 2012 [facility] [address] [id number] [place] [address] 19 Feb, 2012 [facility] [address] [id number] [place] [address] 19 Feb, 2012 [facility] [place] [facility] [address] [id number] [place] [address] 19 Feb, 2012 [facility] [address] [id number] [place] [address] 19 Feb, 2012 [facility] [address] [id number] [place] [address] 14 Feb, 2012 [facility] [place] [facility] [address] [id number] [place] [address] 14 Feb, 2012 [facility] [place] [facility] [address] [id number] [place] [address] 13 Feb, 2012 [facility] [place] [facility] [address] [id number] [place] [address] 13 Feb, 2012 [facility] [place] [facility] [address] [id number] [place] [address] Feb, [facility] [place] [facility] [address] [id number] [place] [address] Feb, [facility] [place] [facility] [address] [id number] [place] [address] Feb, [facility] [place] [facility] [address] [id number] [place] [address] Feb, [facility] [place] [facility] [address] [id number] [place] [address] Feb, [facility] [place] [facility] [address] [id number] [place] [address] Feb, [facility] [place] [facility] [address] [id number] [place] [address] Feb, [facility] [place] [facility] [address] [id number] [place] [address] Feb, [facility] [place] [facility] [address] [id number], [place] [address] Feb, [facility] [place] [facility] [address] [id number] [place] [address] Feb, [facility] [place] [facility] [address] [id number] [place] [address] Feb, [facility] [place] [facility] [address] [id number] [place] [address] Feb, [facility] [place] [facility] [address] [id number], [place] [address] Feb, [facility] [place] [facility] [address] [id number] [place] [address] Feb, [facility] [place] [facility] [address] [id number] [place] [address] Jan, [facility] [place] [facility] [address] [id number] [place] [address] Jan, [facility] [place] [facility] [address] [id number] [place] [address] Dec, [facility] [place] [facility] [address] [id number] [place] [address] Dec, [facility] [place] [facility] [address] [id number] [place] [address] Dec, [facility] [place] [facility] [address] [id number] [place] [address] Dec, [facility] [place] [facility] [address] [id number] [place] [address] Nov, [facility] [place] [facility] [address] [id number] [place] [address] Nov, [facility] [place] [facility] [address] [id number] [place] [address] Nov, [facility] [place] [facility] [address] [id number] [place] [address] Nov, [facility] [place] [facility] [address] [id number], [place] [address] Oct, [facility] [place] [facility] [address] [id number] [place] [address] Oct, [facility] [place] [facility] [address] [id number] [place] [address] Sep, [facility] [place] [facility] [address] [id number] [place] [address] Sep, [facility] [place] [facility] [address] [id number] [place] [address] Sep, [facility] [place] [facility] [address] [id number] [place] [address] Aug, [facility] [place] [facility] [address] [id number] [place] [address] Aug, [facility] [place] [facility] [address] [id number] [place] [address] Aug, [facility] [place] [facility] [address] [id number] [place] [address] Aug, [facility] [place] [facility] [address] [id number] [place] [address] Aug, [facility] [place] [facility] [address] [id number] [place] [address] July, [facility] [place] [facility] [address] [id number] [place] [place] [id number] July, [facility] [place] [facility] [address] [id number] [place] [address] July, [facility] [place] [facility] [address] [id number] [place] [address] July, [facility] [place] [facility] [address] [id number] [place] [address] July, [facility] [place] [facility] [address] [id number] [place] [address] Jun, [facility] [place] [facility] [address] [id number] [place] [address] May, [facility] [place] [facility] [address] [id number] [place] [address] 16 Apr, 2011 [facility] [place] [facility] [address] [id number] [place] [address] Apr, [facility] [place] [facility] [address] [id number] [place] [address] 13 Apr, 2011 [facility] [address] [id number] [place] [address] Mar, [facility] [place] [facility] [address] [id number] [place] [address] Mar, [facility] [place] [facility] [address] [id number] [place] [address] Mar, [facility] [place] [facility] [address] [id number] [place] [address] Mar, [facility] [place] [facility] [address] [id number] [place] [address] Mar, [facility] [place] [facility] [address] [id number] [place] [address] Mar, [facility] [place] [facility] [address] [id number] [place] [address] Mar, [facility] [place] [facility] [address] [id number] [place] [address] Mar, [facility] [place] [facility] [address] [id number] [place] [address] Feb, [facility] [place] [facility] [address] [id number] [place] [address] Feb, [facility] [place] [facility] [address] [id number] [place] [address] Feb, [facility] [place] [facility] [address] [id number] [place] [address] Feb, [facility] [place] [facility] [address] [id number] [place] [address] Feb, [facility] [place] [facility] [address] [id number] [place] [address] Jan, [facility] [place] [facility] [address] [id number] [place] [address] Jan, [facility] [place] [facility] [address] [id number] [place] [address] 03 Jan, 2011 [facility] [address] [id number] [place] [address] Jan, [facility] [address] [id number] [place] [address] 14 Dec, 2010 [facility] [address] [id number] [place] [address] 14 Dec, 2010 [facility] [address] [id number] [place] [address] 13 Sep, 2010 [facility] [address] [id number] [place] [address] July, [facility] [address] [id number] [place] [address] Apr, [facility] [address] [id number] [place] [address] Mar, [facility] [address] [id number] [place] [address] Feb, [facility] [address] [id number] [place] [address] Feb, [facility] [address] [id number] [place] [address] Feb, [facility] [address] [id number] [place] [address] Feb, [facility] [address] [id number] [place] [address] 15 Feb, 2010 [facility] [address] [id number] [place] [address] Feb, [facility] [address] [id number] [place] [address] Feb, [facility] [address] [id number] [place] [address] Dec, [facility] [address] [id number] [place] [address] Jan, [facility] [address] [id number] [place] [address] Apr, IMMUNIZATIONS No Known Immunizations SOCIAL HISTORY Never Assessed REASON FOR VISIT EMR-[facility] PLAN OF CARE VITAL SIGNS MEDICATIONS Unknown [...] Surgery Hospitalization History Hyperglycemia 2012 Hospitalization History [facility] 11/28/2015-12/04/2015 2016 Hospitalization History Schizophrenia 09/26/16 Hospitalization History AMS, UTI, hyponatremia-[facility] 10/21/16 Hospitalization History stent placed 02/02/17 Hospitalization History stent placed 02/2017 Hospitalization History [facility] [place]- Syncope, Dehydration and Hypotension. 06/08/2017
--- OUTSIDE RECORDS SUMMARY | 2018-09-05 12:46 | XMS REPORT ---
Author Author Migration, Doctor Organization [facility] Address Unknown Phone Unavailable Care Team Providers Care Truss Builder Name Role Phone Migration, Doctor Unavailable Unavailable PROBLEMS Type Condition ICD9-CM Code EFP30-FX Code Onset Dates Condition Status SNOMED Code Problem Diabetes E11.9 Active 96873720 Problem Pacemaker Z95.0 Active 780346302 Problem CVA (cerebral vascular accident) I63.9 Active 454089025 Problem Coronary artery disease involving [place] coronary artery of [place] heart without angina pectoris I25.10 Active 8676243540573 Problem Chronic idiopathic constipation K59.04 Active 63237384 Problem 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 Active 441685478 Problem Constipation K59.00 Active 09825346 Problem Bipolar affective disorder, current episode mixed, current episode severity unspecified F31.60 Active 601628135 Problem Arthritis of back M47.9 Active 63444006 Problem Psychosis, unspecified psychosis type F29 Active 56909508 Problem 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 Active 492152303 Problem Age-related incipient cataract of both eyes H25.093 Active 229863698 Problem Diabetes 1.5, 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 438481441 Problem Essential hypertension I10 Active 15699205 ALLERGIES No Information ENCOUNTERS Encounter Location Date Diagnosis [facility] [address] [address] Jun, [facility] [id number] [place] [address] Jun, [facility] [id number] [place] [address] May, [facility] [id number] [place] [address] Apr, [facility] [address] [address] Apr, Diabetes E11.9 [facility] [id number] [place] [address] Apr, Bipolar affective disorder, current episode mixed, current episode severity unspecified F31.60 [facility] [id number] [place] [address] Apr, [facility] [address] [address] Mar, [facility] [id number] [place] [address] Mar, Psychosis, unspecified psychosis type F29 and Bipolar affective disorder, current episode mixed, current episode severity unspecified F31.60 [facility] [id number] [place] [address] Mar, [facility] [id number] [place] [address] Mar, Low back pain M54.5 and Arthritis of back M47.9 [place] [id number] [place] [address] Mar, [facility] [id number] [place] [address] Feb, Abdominal pain R10.9 and Constipation K59.00 [place] [id number] [place] [address] Feb, Vertigo R42 ; 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 ; Hyperglycemia R73.9 and Essential hypertension I10 [facility] [id number] [place] [address] Jan, [facility] [address] [address] Dec, [facility] [id number] [place] [address] Dec, [facility] [address] [place] [address] Dec, Dizziness R42 and Diabetes 1.5, 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 [place] [address] [address] Dec, [facility] [address] [address] Dec, [facility] [address] [address] Dec, Psychosis, unspecified psychosis type F29 and Bipolar affective disorder, current episode mixed, current episode severity unspecified F31.60 [place] [address] [address] Dec, [place] [address] [address] Dec, [place] [address] [address] Dec, 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 ; 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 and Hyperglycemia R73.9 [place] [address] [address] Oct, [facility] [address] [address] Oct, [place] [address] [address] Oct, [place] [id number] [place] [address] Sep, [facility] [address] [address] Aug, Upper respiratory tract infection, unspecified type J06.9 ; Chronic idiopathic constipation K59.04 ; Fluid level behind tympanic membrane of both ears H65.93 and Abdominal pain R10.9 [place] [address] [address] July, Diabetes E11.9 [facility] [id number] [place] [address] Jun, Dehydration E86.0 ; Diabetes E11.9 and Hyperglycemia R73.9 [facility] [id number] [place] [address] Jun, [place] [address] [address] Jun, Vertigo R42 ; Syncope, unspecified syncope type R55 ; Diabetes E11.9 and Hyperglycemia R73.9 [place] [id number] [place] [address] May, Psychosis, unspecified psychosis type F29 and Bipolar affective disorder, current episode mixed, current episode severity unspecified F31.60 [place] [id number] [place] [address] May, [place] [id number] [place] [address] May, Diabetes E11.9 [facility] [address] [id number] Apr, Dental examination Z01.20 and Dental caries K02.9 [place] [id number] [place] [address] Apr, Dental examination Z01.20 and Dental abscess K04.7 [place] [id number] [place] [address] Mar, Psychosis, unspecified psychosis type F29 and Bipolar affective disorder, current episode mixed, current episode severity unspecified F31.60 [place] [id number] [place] [address] Mar, [facility] [id number] [place] [address] Feb, [place] [id number] [place] [address] Feb, Left wrist pain M25.532 [facility] [id number] [place] [address] Jan, [facility] [id number] [place] [address] Jan, Psychosis, unspecified psychosis type F29 and Bipolar affective disorder, current episode mixed, current episode severity unspecified F31.60 [facility] [id number] [place] [address] Jan, Diabetes E11.9 [facility] [id number] [place] [address] Jan, Left wrist pain M25.532 [place] [id number] [place] [address] Dec, Psychosis, unspecified psychosis type F29 and Bipolar affective disorder, current episode mixed, current episode severity unspecified F31.60 [place] [id number] [place] [address] Dec, Syncope, unspecified syncope type R55 ; Vertigo R42 ; Diabetes E11.9 ; Psychosis, unspecified psychosis type F29 and Fall, initial encounter W19.XXXA [place] [id number] [place] [address] Dec, Diabetes E11.9 ; Neck pain M54.2 and Vertigo R42 [place] [id number] [place] [address] Nov, [facility] [id number] [place] [address] Nov, [facility] [id number] [place] [address] Nov, [place] [id number] [place] [address] Nov, Diabetes E11.9 [facility] [address] [facility] [id number] [address] Nov, Diabetes E11.9 [facility] [address] [facility] [id number], [place] [address] Oct, [facility] [address] [id number] [id number] Oct, [facility] [address] [facility] [id number], [place] [address] Oct, [facility] [address] [facility] [id number], [place] [address] Oct, Bipolar affective disorder, current episode mixed, current episode severity unspecified F31.60 [facility] [address] [id number] [id number] Sep, [facility] [address] [place] [address] Sep, Bipolar affective disorder, current episode mixed, current episode severity unspecified F31.60 [facility] [address], [place] [address] Sep, Acute maxillary sinusitis, recurrence not specified J01.00 [facility] [id number] [address] Sep, Diabetes E11.9 [facility] [address] [address] July, Diabetes E11.9 [facility] [address] [facility] [id number], [place] [address] July, Diabetes E11.9 [facility] [address] [facility] [id number], [place] [address] Jun, [facility] [id number], [place] [address] May, Bipolar affective disorder, current episode mixed, current episode severity unspecified F31.60 [facility] [id number] [place] [address] May, Acute non-recurrent maxillary sinusitis J01.00 [place] [id number] [place] [address] 10 Apr, 2016 Psychosis, unspecified psychosis type F29 and Bipolar affective disorder, current episode mixed, current episode severity unspecified F31.60 [facility] [id number] [place] [address] 03 Apr, 2016 Dysuria R30.0 ; Other viral agents as the cause of diseases classified elsewhere B97.89 and Acute upper respiratory infection, unspecified J06.9 [place] [id number] [place] [address] Mar, Diabetes E11.9 ; Urine leukocytes R82.99 and Psychosis, unspecified psychosis type F29 [place] [id number] [place] [address] Mar, Diabetes E11.9 [place] [id number] [place] [address] Feb, [place] [address] [address] Jan, [place] [id number] [place] [address] Dec, Psychosis, unspecified psychosis type F29 [place] [id number] [place] [address] Dec, [facility] [id number] [place] [address] Dec, [place] [id number] [place] [address] Dec, Psychosis, unspecified psychosis type F29 [place] [id number] [place] [address] Nov, Schizoaffective disorder, unspecified type F25.9 [facility] [id number] [place] [address] Oct, [facility] [id number] [place] [address] Oct, Conjunctivitis of right eye, unspecified conjunctivitis type H10.9 [facility] [id number] [place] [address] Aug, [facility] [id number] [place] [id number] Jun, Encounter for dental examination Z01.20 [facility] [address] [address] Jun, Diabetes E11.9 and Bipolar affect, depressed F31.30 [facility] [id number] [place] [address] Jun, Other bipolar disorder F31.89 [facility] [id number] [place] [address] Jun, [facility] [id number] [place] [address] Apr, [facility] [id number] [place] [address] Dec, [facility] [id number] [place] [address] Dec, [facility] [id number] [place] [address] Sep, [facility] [id number] [place] [address] Jun, [facility] [id number] [place] [address] Jun, [facility] [id number] [place] [address] Mar, [facility] [place] [facility] [address] [id number] [place] [address] Mar, [facility] [place] [facility] [address] [id number] [place] [address] Nov, [facility] [place] [facility] [address] [id number] [place] [address] Nov, [facility] [place] [facility] [address] [id number] [place] [address] Sep, [facility] [place] [facility] [address] [id number] [place] [address] Sep, [facility] [place] [facility] [address] [id number] [place] [address] Sep, [facility] [place] [facility] [address] [id number] [place] [address] Sep, [facility] [place] [facility] [address] [id number] [place] [address] Sep, [facility] [place] [facility] [address] [id number] [place] [address] Aug, [facility] [place] [facility] [address] [id number] [place] [address] Aug, [facility] [place] [facility] [address] [id number] [place] [address] Aug, [facility] [place] [facility] [address] [id number] [place] [address] Aug, [facility] [place] [facility] [address] [id number] [place] [address] Aug, [facility] [place] [facility] [address] [id number] [place] [address] Aug, [facility] [place] [facility] [address] [id number] [place] [address] July, [facility] [place] [facility] [address] [id number] [place] [address] July, [facility] [place] [facility] [address] [id number] [place] [address] Jun, [facility] [place] [facility] [address] [id number] [place] [address] Jun, [facility] [place] [facility] [address] [id number] [place] [address] Jun, [facility] [place] [facility] [address] [id number] [place] [address] Jun, [facility] [place] [facility] [address] [id number] [place] [address] Jun, [facility] [place] [facility] [address] [id number] [place] [address] Jun, [facility] [place] [facility] [address] [id number] [place] [address] Jun, [facility] [place] [facility] [address] [id number] [place] [address] Jun, [facility] [place] [facility] [address] [id number] [place] [address] May, [facility] [place] [facility] [address] [id number] [place] [address] May, [facility] [place] [facility] [address] [id number] [place] [address] May, [facility] [place] [facility] [address] [id number] [place] [address] May, [facility] [place] [facility] [address] [id number] [place] [address] May, [facility] [place] [facility] [address] [id number] [place] [address] May, [facility] [place] [facility] [address] [id number] [place] [address] May, [facility] [place] [facility] [address] [id number] [place] [address] May, [facility] [address] [id number] [place] [address] May, [facility] [place] [facility] [address] [id number] [place] [address] Apr, [facility] [place] [facility] [address] [id number] [place] [address] Apr, [facility] [place] [facility] [address] [id number] [place] [address] Mar, [facility] [address] [id number] [place] [address] Mar, [facility] [address] [id number] [place] [address] Feb, [facility] [place] [facility] [address] [id number] [place] [address] Feb, [facility] [address] [id number] [place] [address] Nov, [facility] [place] [facility] [address] [id number] [place] [address] Nov, [facility] [address] [id number] [place] [address] Oct, [facility] [place] [facility] [address] [id number] [place] [address] Oct, [facility] [place] [facility] [address] [id number] [place] [address] Oct, [facility] [place] [facility] [address] [id number] [place] [address] Oct, [facility] [place] [facility] [address] [id number] [place] [address] Oct, [facility] [place] [facility] [address] [id number] [place] [address] 23 Sep, 2012 [facility] [address] [id number] [place] [address] Sep, [facility] [place] [facility] [address] [id number] [place] [address] Sep, [facility] [place] [facility] [address] [id number] [place] [address] 02 Sep, 2012 [facility] [place] [facility] [address] [id number] [place] [address] Aug, [facility] [place] [facility] [address] [id number] [place] [address] Aug, [facility] [place] [facility] [address] [id number] [place] [address] Aug, [facility] [place] [facility] [address] [id number] [place] [address] Aug, [facility] [place] [facility] [address] [id number] [place] [address] Jun, [facility] [place] [facility] [address] [id number] [place] [address] 18 Jun, 2012 [facility] [place] [facility] [address] [id number] [place] [address] Jun, [facility] [place] [facility] [address] [id number], [place] [address] Jun, [facility] [place] [facility] [address] [id number], [place] [address] 21 May, 2012 [facility] [place] [facility] [address] [id number] [place] [address] 18 May, 2012 [facility] [place] [facility] [address] [id number] [place] [address] 18 May, 2012 [facility] [place] [facility] [address] [id number] [place] [address] 13 May, 2012 [facility] [place] [facility] [address] [id number] [place] [address] 11 May, 2012 [facility] [address] [id number] [place] [address] 04 May, 2012 [facility] [address] [id number] [place] [address] 21 Apr, 2012 [facility] [address] [id number] [place] [address] 20 Apr, 2012 [facility] [address] [id number] [place] [address] 19 Apr, 2012 [facility] [address] [id number] [place] [address] 19 Apr, 2012 [facility] [address] [id number] [place] [address] 19 Apr, 2012 [facility] [address] [id number] [place] [address] 20 Feb, 2012 [facility] [address] [id number] [place] [address] 20 Feb, 2012 [facility] [address] [id number] [place] [address] 19 Feb, 2012 [facility] [address] [facility] [id number] [place] [address] 19 Feb, 2012 [facility] [address] [id number] [place] [address] 19 Feb, 2012 [facility] [address] [id number] [place] [address] 19 Feb, 2012 [facility] [place] [facility] [address] [id number] [place] [address] 19 Feb, 2012 [facility] [address] [id number] [place] [address] 19 Feb, 2012 [facility] [address] [facility] [id number] [place] [address] 14 Feb, 2012 [facility] [place] [facility] [address] [id number] [place] [address] 14 Feb, 2012 [facility] [place] [facility] [address] [id number] [place] [address] 13 Feb, 2012 [facility] [place] [facility] [address] [id number] [place] [address] 13 Feb, 2012 [facility] [place] [facility] [address] [id number] [place] [address] Feb, [facility] [place] [facility] [address] [id number] [place] [address] Feb, [facility] [place] [facility] [address] [id number] [place] [address] Feb, [facility] [place] [facility] [address] [id number] [place] [address] Feb, [facility] [place] [facility] [address] [id number] [place] [address] Feb, [facility] [place] [facility] [address] [id number] [place] [address] Feb, [facility] [place] [facility] [address] [id number] [place] [address] Feb, [facility] [place] [facility] [address] [id number] [place] [address] Feb, [facility] [place] [facility] [address] [id number] [address] Feb, [facility] [place] [facility] [address] [id number] [place] [address] Feb, [facility] [place] [facility] [address] [id number] [place] [address] Feb, [facility] [place] [facility] [address] [id number] [place] [address] Feb, [facility] [place] [facility] [address] [id number] [address] Feb, [facility] [place] [facility] [address] [id number] [place] [address] Feb, [facility] [place] [facility] [address] [id number] [place] [address] Jan, [facility] [place] [facility] [address] [facility] [id number] [place] [address] Jan, [facility] [place] [facility] [address] [id number] [place] [address] Dec, [facility] [place] [facility] [address] [id number] [place] [address] Dec, [facility] [place] [facility] [address] [id number] [place] [address] Dec, [facility] [place] [facility] [address] [facility] [id number] [place] [address] Dec, [facility] [place] [facility] [address] [id number] [place] [address] Nov, [facility] [place] [facility] [address] [facility] [id number] [place] [address] Nov, [facility] [place] [facility] [address] [facility] [place] [id number] [place] [address] Nov, [facility] [place] [facility] [address] [id number] [place] [address] Nov, [facility] [place] [facility] [address] [id number], [place] [address] Oct, [facility] [place] [facility] [address] [id number] [place] [address] Oct, [facility] [place] [facility] [address] [facility] [place] [id number] [place] [address] Sep, [facility] [place] [facility] [address] [facility] [place] [id number] [place] [address] Sep, [facility] [place] [facility] [address] [id number] [place] [address] Sep, [facility] [place] [facility] [address] [id number] [place] [address] Aug, [facility] [place] [facility] [address] [id number] [place] [address] Aug, [facility] [place] [facility] [address] [id number] [place] [address] Aug, [facility] [place] [facility] [address] [id number] [place] [address] Aug, [facility] [place] [facility] [address] [id number] [place] [address] Aug, [facility] [place] [facility] [address] [id number] [place] [address] July, [facility] [place] [facility] [address] [id number] [place] [address] July, [facility] [place] [facility] [address] [id number] [place] [address] July, [facility] [place] [facility] [address] [id number] [place] [address] July, [facility] [place] [facility] [address] [id number] [place] [address] July, [facility] [place] [facility] [address] [id number] [place] [address] Jun, [facility] [place] [facility] [address] [id number] [place] [address] May, [facility] [place] [facility] [address] [id number] [place] [address] 16 Apr, 2011 [facility] [place] [facility] [address] [id number] [place] [address] Apr, [facility] [place] [facility] [address] [id number] [place] [address] 13 Apr, 2011 [facility] [address] [id number] [place] [address] Mar, [facility] [place] [facility] [address] [id number] [place] [address] Mar, [facility] [place] [facility] [address] [id number] [place] [address] Mar, [facility] [place] [facility] [address] [id number] [place] [address] Mar, [facility] [place] [facility] [address] [id number] [place] [address] Mar, [facility] [place] [facility] [address] [id number] [place] [address] Mar, [facility] [place] [facility] [address] [id number] [place] [address] Mar, [facility] [place] [facility] [address] [id number] [place] [address] Mar, [facility] [place] [facility] [address] [id number] [place] [address] Feb, [facility] [place] [facility] [address] [id number] [place] [address] Feb, [facility] [place] [facility] [address] [id number] [place] [address] Feb, [facility] [place] [facility] [address] [id number] [place] [address] Feb, [facility] [place] [facility] [address] [id number] [place] [address] Feb, [facility] [place] [facility] [address] [id number] [place] [address] Jan, [facility] [place] [facility] [address] [id number] [place] [address] Jan, [facility] [place] [facility] [address] [id number] [place] [address] 03 Jan, 2011 [facility] [address] [id number] [place] [address] Jan, [facility] [address] [id number] [place] [address] 14 Dec, 2010 [facility] [address] [id number] [place] [address] 14 Dec, 2010 [facility] [address] [id number] [place] [address] 13 Sep, 2010 [facility] [address] [id number] [place] [address] July, [facility] [address] [id number] [place] [address] Apr, [facility] [address] [id number] [place] [address] Mar, [facility] [address] [id number] [place] [address] Feb, [facility] [address] [id number] [place] [address] Feb, [facility] [address] [id number] [place] [address] Feb, [facility] [address] [id number] [place] [address] Feb, [facility] [address] [id number] [place] [address] 15 Feb, 2010 [facility] [address] [id number] [place] [address] Feb, [facility] [address] [id number] [place] [address] Feb, [facility] [address] [id number] [place] [address] Dec, [facility] [address] [facility] [place] [id number] [place] [address] Jan, [facility] [address] [facility] [place] [id number] [place] [address] Apr, IMMUNIZATIONS No Known Immunizations SOCIAL HISTORY Never Assessed REASON FOR VISIT EMR[place] [place] OF CARE VITAL SIGNS MEDICATIONS Unknown [...] Surgery Hospitalization History Hyperglycemia 2012 Hospitalization History [facility] 11/28/2015-12/04/2015 2016 Hospitalization History Schizophrenia 09/26/16 Hospitalization History AMS, UTI, hyponatremia-[facility] 10/21/16 Hospitalization History stent placed 02/02/17 Hospitalization History stent placed 02/2017 Hospitalization History [facility]- Syncope, Dehydration and Hypotension. 06/08/2017
--- OUTSIDE RECORDS SUMMARY | 2018-09-05 12:46 | XMS REPORT ---
Author Author WOOD CALDERON Organization [facility] Address [address] [place] [address] Care Team Providers Care Ophthalmologist Name Role Phone WOOD CALDERON Unavailable PROBLEMS Type Condition ICD9-CM Code NZN10-QW Code Onset Dates Condition Status SNOMED Code Problem Bipolar affective disorder, current episode mixed, current episode severity unspecified F31.60 Active 455936484 Problem Chronic idiopathic constipation K59.04 Active 66586936 Problem Coronary artery disease involving [place] coronary artery of 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 434714557 Problem Age-related incipient cataract of both eyes H25.093 Active 727196831 ALLERGIES Substance Reaction Event Type Date Status Codeine Sulfate Unknown Drug Allergy Feb, Active [place]st Unknown Non Drug Allergy Feb, Active Tejeda Unknown Non Drug Allergy Feb, Active Pork Unknown Non Drug Allergy Feb, Active Yeast Unknown Non Drug Allergy Feb, Active Perkins Unknown Non Drug Allergy Feb, Active ENCOUNTERS Encounter Location Date Diagnosis [facility] [address] [facility] [id number], [place] [address] Mar, [facility] [address] [facility] [id number], [place] [address] Feb, Abdominal pain R10.9 and Constipation K59.00 [facility] [id number] [place] [address] Feb, Vertigo R42 ; 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 ; Hyperglycemia R73.9 and Essential hypertension I10 [facility] [id number] [place] [address] Jan, [facility] [id number] [place] [address] Dec, [facility] [id number] [place] [address] Dec, [facility] [address] [address] Dec, Dizziness R42 and Diabetes 1.5, 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 [facility] [id number] [place] [address] Dec, [facility] [id number] [place] [address] Dec, [facility] [id number] [place] [address] Dec, Psychosis, unspecified psychosis type F29 and Bipolar affective disorder, current episode mixed, current episode severity unspecified F31.60 [facility] [id number] [place] [address] Dec, [facility] [id number] [place] [address] Dec, [facility] [id number] [place] [address] Dec, 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 ; 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 Z79.4 and Hyperglycemia R73.9 [facility] [id number] [place] [address] Oct, [facility] [address] [address] Oct, [facility] [id number] [place] [address] Oct, [facility] [id number] [place] [address] Sep, [facility] [id number] [place] [address] Aug, Upper respiratory tract infection, unspecified type J06.9 ; Chronic idiopathic constipation K59.04 ; Fluid level behind tympanic membrane of both ears H65.93 and Abdominal pain R10.9 [facility] [id number] [place] [address] July, Diabetes E11.9 [facility] [id number] [place] [address] Jun, Dehydration E86.0 ; Diabetes E11.9 and Hyperglycemia R73.9 [facility] [id number] [place] [address] Jun, [facility] [id number] [place] [address] Jun, Vertigo R42 ; Syncope, unspecified syncope type R55 ; Diabetes E11.9 and Hyperglycemia R73.9 [facility] [id number] [place] [address] May, Psychosis, unspecified psychosis type F29 and Bipolar affective disorder, current episode mixed, current episode severity unspecified F31.60 [facility] [id number] [place] [address] May, [facility] [id number] [place] [address] May, Diabetes E11.9 [facility] [address] [address] Apr, Dental examination Z01.20 and Dental caries K02.9 [facility] [id number] [place] [address] Apr, Dental examination Z01.20 and Dental abscess K04.7 [facility] [id number] [place] [address] Mar, Psychosis, unspecified psychosis type F29 and Bipolar affective disorder, current episode mixed, current episode severity unspecified F31.60 [facility] [id number] [place] [address] Mar, [facility] [id number] [place] [address] Feb, [facility] [address] [address] Feb, Left wrist pain M25.532 [facility] [id number] [place] [address] Jan, [facility] [address] [address] Jan, Psychosis, unspecified psychosis type F29 and Bipolar affective disorder, current episode mixed, current episode severity unspecified F31.60 [facility] [id number] [place] [address] Jan, Diabetes E11.9 [facility] [id number] [place] [address] Jan, Left wrist pain M25.532 [facility] [id number] [place] [address] Dec, Psychosis, unspecified psychosis type F29 and Bipolar affective disorder, current episode mixed, current episode severity unspecified F31.60 [facility] [id number] [place] [address] Dec, Syncope, unspecified syncope type R55 ; Vertigo R42 ; Diabetes E11.9 ; Psychosis, unspecified psychosis type F29 and Fall, initial encounter W19.XXXA [facility] [address] [place] [address] Dec, Diabetes E11.9 ; Neck pain M54.2 and Vertigo R42 [facility] [address] [id number] [address] 13 Nov, 2016 [facility] [address], [place] [address] 08 Nov, 2016 [facility] [id number] [place] [address] 08 Nov, 2016 [facility] [id number] [place] [address] 06 Nov, 2016 Diabetes E11.9 [facility] [id number] [place] [address] 05 Nov, 2016 Diabetes E11.9 [facility] [id number] [place] [address] Oct, [facility] [id number] [place] [id number] Oct, [facility] [id number] [place] [address] Oct, [facility] [address], [place] [address] Oct, Bipolar affective disorder, current episode mixed, current episode severity unspecified F31.60 [facility] [address] [id number] [id number] Sep, [facility] [address], [place] [address] Sep, Bipolar affective disorder, current episode mixed, current episode severity unspecified F31.60 [facility] [address], [place] [address] Sep, Acute maxillary sinusitis, recurrence not specified J01.00 [facility] [address], [place] [address] Sep, Diabetes E11.9 [facility] [address], [place] [address] July, Diabetes E11.9 [facility] [address] [place] [address] July, Diabetes E11.9 [facility] [address], [place] [address] Jun, [facility] [id number] [place] [address] May, Bipolar affective disorder, current episode mixed, current episode severity unspecified F31.60 [facility] [id number] [place] [address] May, Acute non-recurrent maxillary sinusitis J01.00 [facility] [place] [id number] [place] [address] Apr, Psychosis, unspecified psychosis type F29 and Bipolar affective disorder, current episode mixed, current episode severity unspecified F31.60 [facility] [address] [place] [address] Apr, Dysuria R30.0 ; Other viral agents as the cause of diseases classified elsewhere B97.89 and Acute upper respiratory infection, unspecified J06.9 [facility] [address] [place] [address] Mar, Diabetes E11.9 ; Urine leukocytes R82.99 and Psychosis, unspecified psychosis type F29 [facility] [address], [place] [address] Mar, Diabetes E11.9 [facility] [id number] [place] [address] Feb, [facility] [id number] [place] [address] Jan, [facility] [id number] [place] [address] Dec, Psychosis, unspecified psychosis type F29 [facility] [id number] [place] [address] Dec, [facility] [id number] [place] [address] Dec, [facility] [id number] [place] [address] Dec, Psychosis, unspecified psychosis type F29 [facility] [id number] [place] [address] Nov, Schizoaffective disorder, unspecified type F25.9 [facility] [id number] [place] [address] 16 Oct, 2015 [facility] [id number] [place] [address] Oct, Conjunctivitis of right eye, unspecified conjunctivitis type H10.9 [facility] [id number] [place] [address] Aug, [facility] [id number] [place] [id number] Jun, Encounter for dental examination Z01.20 [facility] [id number] [place] [address] Jun, Diabetes E11.9 and Bipolar affect, depressed F31.30 [facility] [id number] [place] [address] Jun, Other bipolar disorder F31.89 [facility] [id number] [place] [address] 13 Jun, 2015 [facility] [id number] [place] [address] Apr, [facility] [id number] [place] [address] Dec, [facility] [place] [facility] [address] [id number] [place] [address] Dec, [facility] [place] [facility] [address] [id number] [place] [address] Sep, [facility] [place] [facility] [address] [id number] [place] [address] Jun, [facility] [place] [facility] [address] [id number] [place] [address] Jun, [facility] [place] [facility] [address] [id number] [place] [address] Mar, [facility] [place] [facility] [address] [id number] [place] [address] Mar, [facility] [place] [facility] [address] [id number] [place] [address] Nov, [facility] [place] [facility] [address] [id number] [place] [address] Nov, [facility] [place] [facility] [address] [id number] [place] [address] Sep, [facility] [place] [facility] [address] [id number] [place] [address] Sep, [facility] [place] [facility] [address] [id number] [place] [address] Sep, [facility] [place] [facility] [address] [id number] [place] [address] Sep, [facility] [place] [facility] [address] [id number] [place] [address] Sep, [facility] [place] [facility] [address] [id number] [place] [address] Aug, [facility] [place] [facility] [address] [id number] [place] [address] Aug, [facility] [place] [facility] [address] [id number] [place] [address] Aug, [facility] [place] [facility] [address] [id number] [place] [address] Aug, [facility] [place] [facility] [address] [id number] [place] [address] Aug, [facility] [place] [facility] [address] [id number] [place] [address] Aug, [facility] [place] [facility] [address] [id number] [place] [address] July, [facility] [place] [facility] [address] [id number] [place] [address] July, [facility] [place] [facility] [address] [id number] [place] [address] Jun, [facility] [place] [facility] [address] [id number] [place] [address] Jun, [facility] [place] [facility] [address] [id number] [place] [address] Jun, [facility] [place] [facility] [address] [id number] [place] [address] Jun, [facility] [place] [facility] [address] [id number] [place] [address] Jun, [facility] [place] [facility] [address] [id number] [place] [address] Jun, [facility] [place] [facility] [address] [id number] [place] [address] Jun, [facility] [place] [facility] [address] [id number] [place] [address] Jun, [facility] [place] [facility] [address] [id number] [place] [address] May, [facility] [place] [facility] [address] [id number] [place] [address] May, [facility] [place] [facility] [address] [id number] [place] [address] May, [facility] [place] [facility] [address] [id number] [place] [address] May, [facility] [place] [facility] [address] [id number] [place] [address] May, [facility] [place] [facility] [address] [id number] [place] [address] May, [facility] [place] [facility] [address] [id number] [place] [address] May, [facility] [place] [facility] [address] [id number] [place] [address] May, [facility] [place] [facility] [address] [id number] [place] [address] May, [facility] [place] [facility] [address] [id number] [place] [address] Apr, [facility] [place] [facility] [address] [id number] [place] [address] Apr, [facility] [place] [facility] [address] [id number] [place] [address] Mar, [facility] [place] [facility] [address] [id number] [place] [address] Mar, [facility] [place] [facility] [address] [id number] [place] [address] Feb, [facility] [place] [facility] [address] [id number] [place] [address] Feb, [facility] [place] [facility] [address] [id number] [place] [address] Nov, [facility] [place] [facility] [address] [id number] [place] [address] 12 Nov, 2012 [facility] [place] [facility] [address] [id number] [place] [address] Oct, [facility] [place] [facility] [address] [id number] [place] [address] Oct, [facility] [place] [facility] [address] [id number] [place] [address] Oct, [facility] [place] [facility] [address] [id number] [place] [address] Oct, [facility] [place] [facility] [address] [id number] [place] [address] Oct, [facility] [place] [facility] [address] [id number] [place] [address] Sep, [facility] [place] [facility] [address] [id number] [place] [address] Sep, [facility] [place] [facility] [address] [id number] [place] [address] Sep, [facility] [place] [facility] [address] [id number] [place] [address] Sep, [facility] [place] [facility] [address] [id number] [place] [address] Aug, [facility] [place] [facility] [address] [id number] [place] [address] Aug, [facility] [place] [facility] [address] [id number] [place] [address] Aug, [facility] [place] [facility] [address] [id number] [place] [address] Aug, [facility] [place] [facility] [address] [id number] [place] [address] Jun, [facility] [place] [facility] [address] [id number] [place] [address] Jun, [facility] [place] [facility] [address] [id number] [place] [address] Jun, [facility] [place] [facility] [address] [id number] [place] [address] 17 Jun, 2012 [facility] [address] [id number] [place] [address] 21 May, 2012 [facility] [address] [id number] [place] [address] 18 May, 2012 [facility] [address] [id number] [place] [address] 18 May, 2012 [facility] [address] [id number] [place] [address] 13 May, 2012 [facility] [address] [id number] [place] [address] 11 May, 2012 [facility] [address] [facility] [id number] [place] [address] 04 May, 2012 [facility] [address] [id number] [place] [address] 21 Apr, 2012 [facility] [address] [id number] [place] [address] 20 Apr, 2012 [facility] [address] [facility] [id number] [place] [address] 19 Apr, 2012 [facility] [address] [facility] [id number] [place] [address] 19 Apr, 2012 [facility] [address] [facility] [id number] [place] [address] Apr, [facility] [address] [id number] [place] [address] Feb, [facility] [place] [facility] [address] [id number] [place] [address] Feb, [facility] [address] [facility] [id number] [place] [address] Feb, [facility] [address] [facility] [id number] [address] 19 Feb, 2012 [facility] [address] [id number] [place] [address] 19 Feb, 2012 [facility] [place] [facility] [address] [id number] [place] [address] 19 Feb, 2012 [facility] [place] [facility] [address] [id number] [place] [address] 19 Feb, 2012 [facility] [place] [facility] [address] [id number] [place] [address] 19 Feb, 2012 [facility] [place] [facility] [address] [id number] [place] [address] 14 Feb, 2012 [facility] [place] [facility] [address] [id number] [place] [address] 14 Feb, 2012 [facility] [place] [facility] [address] [id number] [place] [address] 13 Feb, 2012 [facility] [place] [facility] [address] [id number] [place] [address] 13 Feb, 2012 [facility] [place] [facility] [address] [id number] [place] [address] Feb, [facility] [place] [facility] [address] [id number] [place] [address] 12 Feb, 2012 [facility] [place] [facility] [address] [id number] [place] [address] 12 Feb, 2012 [facility] [place] [facility] [address] [id number], [place] [address] Feb, [facility] [place] [facility] [address] [id number] [place] [address] Feb, [facility] [place] [facility] [address] [id number] [place] [address] Feb, [facility] [place] [facility] [address] [id number] [place] [address] Feb, [facility] [place] [facility] [address] [id number] [place] [address] Feb, [facility] [place] [facility] [address] [id number] [place] [address] Feb, [facility] [place] [facility] [address] [id number] [place] [address] Feb, [facility] [place] [facility] [address] [id number] [place] [address] Feb, [facility] [place] [facility] [address] [id number] [place] [address] Feb, [facility] [place] [facility] [address] [id number] [place] [address] Feb, [facility] [place] [facility] [address] [id number] [place] [address] Feb, [facility] [place] [facility] [address] [id number] [place] [address] Jan, [facility] [place] [facility] [address] [id number] [place] [address] Jan, [facility] [place] [facility] [address] [id number] [place] [address] Dec, [facility] [place] [facility] [address] [facility] [id number] [place] [address] Dec, [facility] [place] [facility] [address] [id number] [place] [address] Dec, [facility] [place] [facility] [address] [id number] [place] [address] Dec, [facility] [place] [facility] [address] [id number] [place] [address] Nov, [facility] [place] [facility] [address] [id number] [place] [address] 12 Nov, 2011 [facility] [place] [facility] [address] [id number] [place] [address] Nov, [facility] [place] [facility] [address] [id number] [place] [address] Nov, [facility] [place] [facility] [address] [id number] [place] [address] Oct, [facility] [place] [facility] [address] [id number] [place] [address] Oct, [facility] [place] [facility] [address] [id number] [place] [address] Sep, [facility] [address] [id number] [place] [address] Sep, [facility] [place] [facility] [address] [id number] [place] [address] Sep, [facility] [address] [id number] [place] [address] Aug, [facility] [address] [id number] [place] [address] Aug, [facility] [place] [facility] [address] [id number] [place] [address] Aug, [facility] [place] [facility] [address] [id number] [place] [address] Aug, [facility] [place] [facility] [address] [id number] [place] [address] Aug, [facility] [place] [facility] [address] [id number] [place] [address] July, [facility] [place] [facility] [address] [id number] [place] [address] July, [facility] [place] [facility] [address] [id number] [place] [address] July, [facility] [place] [facility] [address] [id number] [place] [address] July, [facility] [place] [facility] [address] [id number], [place] [address] July, [facility] [address] [id number] [place] [address] Jun, [facility] [address] [id number] [place] [address] May, [facility] [address] [id number] [place] [address] 16 Apr, 2011 [facility] [address] [id number] [place] [address] Apr, [facility] [address] [id number] [place] [address] Apr, [facility] [address] [id number] [place] [address] Mar, [facility] [address] [id number] [place] [address] Mar, [facility] [address] [id number] [place] [address] Mar, [facility] [address] [id number] [place] [address] Mar, [facility] [address] [id number] [place] [address] Mar, [facility] [address] [id number] [place] [address] Mar, [facility] [place] [facility] [address] [id number] [place] [address] Mar, [facility] [place] [facility] [address] [id number] [place] [address] Mar, [facility] [place] [facility] [address] [id number] [place] [address] Feb, [facility] [place] [facility] [address] [id number] [place] [address] Feb, [facility] [place] [facility] [address] [id number] [place] [address] 12 Feb, 2011 [facility] [place] [facility] [address] [id number] [place] [address] Feb, [facility] [place] [facility] [address] [id number] [place] [address] Feb, [facility] [place] [facility] [address] [id number] [place] [address] Jan, [facility] [place] [facility] [address] [id number] [place] [address] Jan, [facility] [place] [facility] [address] [id number] [place] [address] Jan, [facility] [place] [facility] [address] [id number] [place] [address] Jan, [facility] [place] [facility] [address] [id number] [place] [address] 14 Dec, 2010 [facility] [place] [facility] [address] [id number] [place] [address] 14 Dec, 2010 [facility] [place] [facility] [address] [id number] [place] [address] Sep, [facility] [place] [facility] [address] [id number] [place] [address] July, [facility] [place] [facility] [address] [id number] [place] [address] Apr, [facility] [place] [facility] [address] [id number] [place] [address] Mar, [facility] [place] [facility] [address] [id number] [place] [address] Feb, [facility] [place] [facility] [address] [id number] [place] [address] Feb, [facility] [place] [facility] [address] [id number] [place] [address] Feb, [facility] [address] [facility] [id number], [place] [address] Feb, [facility] [address] [id number] [address] Feb, [facility] [address] [id number] [address] Feb, [facility] [id number], [place] [address] Feb, [facility] [address] [id number] [address] Dec, [facility] [id number] [place] [address] Jan, [facility] [address] [id number] [address] Apr, IMMUNIZATIONS No Known Immunizations SOCIAL HISTORY Never Assessed REASON FOR VISIT Possible side effects to medication, Pt reports feeling really dizzy which is in creasing, started since starting the insulin NELSY Lazo PLAN OF CARE Activity Details Follow Up prn Reason: Pending Test A1C (IN HOUSE) VITAL SIGNS Height 64 in 2018-02-15 Weight 168.6 lbs 2018-02-15 Temperature 98.4 degrees Fahrenheit 2018-02-15 Heart Rate 68 bpm 2018-02-15 Respiratory Rate 18 2018-02-15 Oximetry on room air:99 % 2018-02-15 BMI 28.94 kg/m2 2018-02-15 Blood pressure systolic 186 mmHg 2018-02-15 Blood pressure diastolic 108 mmHg 2018-02-15 MEDICATIONS Medication Instructions Dosage Frequency Start Date End Date Duration Status Multivitamin Adults - Active Digoxin 125 MCG Orally Once a day 1 tablet 24h Active Blood Glucose Test Strip - Dec, Active Fish Oil 1200 MG Orally Once a day 1 capsule 24h Active Meclizine HCl 12.5 MG Orally 3 times a day 1-2 tablets as needed 8h Feb, Active Tylenol PM Extra Strength 500-25 MG Orally Once a day 1 tablet at bedtime as needed 24h Active Blood Glucose Monitor System w/Device as directed Dec, Active Enalapril Maleate 20 MG Orally Once a day 1 tablet 24h Active Latuda 80 MG Orally Once a day 1 tablet with food 24h 30 day(s) Not-Taking Levemir FlexTouch 100 UNIT/ML Subcutaneous 2 times a day in AM and PM Inject 20 units Dec, 30 days Active BD Pen Needle Ultrafine 29G X 12.7MM as directed May, Not-Taking NovoLog Flexpen 100 UNIT/ML Subcutaneous before meals 15 units Dec, Active Plavix 75 MG Orally Once a day 1 tablet 24h Active Flonase 50 MCG/ACT Nasally Once a day 1 spray in each nostril 24h Aug, 30 day(s) Active Aspirin Adult Low Strength 81 MG Orally Once a day 1 tablet 24h Active Insulin Syringe 31G X 5/16 as directed May, 30 days Not-Taking Latuda 80 MG TAKE ONE (1) TABLET BY MOUTH ONCE DAILY WITH FOOD 90 days Active Loperamide HCl 2 MG Orally Four times a day 1 capsule as needed 6h Active Flonase Not-Taking Atorvastatin Calcium 40 MG Orally Once a day 1 tablet 24h Active Carvedilol 12.5 MG Orally 2 times a day 1 tablet 12h Active MetFORMIN HCl ER 500 mg 1 tablet with meals BID x 7 days, then 2 tablets BID with meals Dec, 30 day(s) Active Insulin Syringe-Needle U-40 1 subcutaneously 5 times per day as directed Mar, 30 days Not-Taking RESULTS Name Result Date Reference Range UA W/CULTURE IF INDICATED (IN HOUSE) Lot # [id number] Exp date 10/06/18 Clarity clear Color yellow Odor none GLU 1 MAO negative KET negative SG 1.010 BLO negative pH 5.0 Protein negative URO 0.2 NIT negative MERLENE negative Lot # Exp date PROCEDURES Procedure Date Ordered Result Body Site GLYCATED HEMOGLOBIN TEST Feb 15, 2018 URINALYSIS, AUTO, W/O SCOPE Feb 15, 2018 INSTRUCTIONS MEDICATIONS ADMINISTERED No Known Medications MEDICAL (GENERAL) HISTORY Type Description Date Medical History HBP Medical History Heart Disease Medical History Stroke Medical History Cardiac Pacemakes Medical History Blood Thinners Medical History Arthitis Medical History Back Trouble Medical History Bipolar affect, depressed Medical History Bipolar affect, depressed Medical History Other bipolar disorder Surgical History Carotid Surgical History Bypass 1998 Surgical History cholecystectomy Surgical History colonscopy Surgical History Pacemaker Hospitalization History Stroke Hospitalization History Surgery Hospitalization History Hyperglycemia 2012 Hospitalization History [facility] 11/28/2015-12/04/2015 2016 Hospitalization History Schizophrenia 09/26/16 Hospitalization History AMS, UTI, hyponatremia-[facility] 10/21/16 Hospitalization History stent placed 02/02/17 Hospitalization History stent placed 02/2017 Hospitalization History [facility]- Syncope, Dehydration and Hypotension. 06/08/2017
--- OUTSIDE RECORDS SUMMARY | 2018-09-05 12:47 | XMS REPORT ---
Author Author WOOD CALDERON Organization [facility] Address [address] [place] [address] Care Team Providers Care Speech And Language Specialist Name Role Phone WOOD CALDERON Unavailable PROBLEMS Type Condition ICD9-CM Code GCA73-ZO Code Onset Dates Condition Status SNOMED Code Problem CVA (cerebral vascular accident) I63.9 Active 590305524 Problem Bipolar affective disorder, current episode mixed, current episode severity unspecified F31.60 Active 610371213 Problem Psychosis, unspecified psychosis type F29 Active 96806707 Problem Diabetes E11.9 Active 91764019 Problem Pacemaker Z95.0 Active 176092157 Problem Diabetes 1.5, 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 645446097 Problem Age-related incipient cataract of both eyes H25.093 Active 974615139 Problem Chronic idiopathic constipation K59.04 Active 66181871 Problem 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 Active [id number] Problem 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 Active 007002050 Problem 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 Active 401606847 ALLERGIES No Information ENCOUNTERS Encounter Location Date Diagnosis [facility] [id number] [place] [address] Mar, [facility] [id number] [place] [address] Jan, [facility] [id number] [place] [address] Dec, [facility] [id number] [place] [address] Dec, [facility] [id number] [place] [address] Dec, Dizziness R42 and Diabetes 1.5, 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 [facility] [address] [address] Dec, [facility] [id number] [place] [address] Dec, [facility] [id number] [place] [address] Dec, Psychosis, unspecified psychosis type F29 and Bipolar affective disorder, current episode mixed, current episode severity unspecified F31.60 [facility] [id number] [place] [address] Dec, [place] [address] [address] Dec, [facility] [id number] [place] [address] Dec, 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 ; 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 and Hyperglycemia R73.9 [facility] [id number] [place] [address] Oct, [facility] [id number] [place] [address] Oct, [facility] [id number] [place] [address] Oct, [facility] [id number] [place] [address] Sep, [facility] [id number] [place] [address] Aug, Upper respiratory tract infection, unspecified type J06.9 ; Chronic idiopathic constipation K59.04 ; Fluid level behind tympanic membrane of both ears H65.93 and Abdominal pain R10.9 [facility] [id number] [place] [address] July, Diabetes E11.9 [facility] [id number] [place] [address] Jun, Dehydration E86.0 ; Diabetes E11.9 and Hyperglycemia R73.9 [place] [id number] [place] [address] Jun, [place] [id number] [place] [address] Jun, Vertigo R42 ; Syncope, unspecified syncope type R55 ; Diabetes E11.9 and Hyperglycemia R73.9 [place] [id number] [place] [address] May, Psychosis, unspecified psychosis type F29 and Bipolar affective disorder, current episode mixed, current episode severity unspecified F31.60 [place] [id number] [place] [address] May, [place] [address] [address] May, Diabetes E11.9 [facility] [address] [id number] Apr, Dental examination Z01.20 and Dental caries K02.9 [place] [id number] [place] [address] Apr, Dental examination Z01.20 and Dental abscess K04.7 [place] [id number] [place] [address] Mar, Psychosis, unspecified psychosis type F29 and Bipolar affective disorder, current episode mixed, current episode severity unspecified F31.60 [place] [id number] [place] [address] Mar, [place] [id number] [place] [address] Feb, [place] [address] [address] Feb, Left wrist pain M25.532 [facility] [address] [place] [address] Jan, [facility] [id number] [place] [address] Jan, Psychosis, unspecified psychosis type F29 and Bipolar affective disorder, current episode mixed, current episode severity unspecified F31.60 [facility] [id number] [place] [address] Jan, Diabetes E11.9 [facility] [id number] [place] [address] Jan, Left wrist pain M25.532 [place] [id number] [place] [address] Dec, Psychosis, unspecified psychosis type F29 and Bipolar affective disorder, current episode mixed, current episode severity unspecified F31.60 [place] [id number] [place] [address] Dec, Syncope, unspecified syncope type R55 ; Vertigo R42 ; Diabetes E11.9 ; Psychosis, unspecified psychosis type F29 and Fall, initial encounter W19.XXXA [place] [id number] [place] [address] Dec, Diabetes E11.9 ; Neck pain M54.2 and Vertigo R42 [place] [id number] [place] [address] Nov, [facility] [id number] [place] [address] Nov, [place] [address] [address] Nov, [facility] [id number] [place] [address] Nov, Diabetes E11.9 [facility] [id number] [place] [address] Nov, Diabetes E11.9 [facility] [address] [address] Oct, [facility] [id number] [id number] Oct, [facility] [address] [address] Oct, [facility] [address] [place] [address] Oct, Bipolar affective disorder, current episode mixed, current episode severity unspecified F31.60 [facility] [id number] [id number] Sep, [facility] [address] [address] Sep, Bipolar affective disorder, current episode mixed, current episode severity unspecified F31.60 [facility] [address] [address] Sep, Acute maxillary sinusitis, recurrence not specified J01.00 [facility] [address] [address] Sep, Diabetes E11.9 [facility] [address] [address] July, Diabetes E11.9 [facility] [address] [address] July, Diabetes E11.9 [facility] [address] [address] Jun, [facility] [address] [address] May, Bipolar affective disorder, current episode mixed, current episode severity unspecified F31.60 [facility] [address] [address] May, Acute non-recurrent maxillary sinusitis J01.00 [facility] [id number] [place] [address] 10 Apr, 2016 Psychosis, unspecified psychosis type F29 and Bipolar affective disorder, current episode mixed, current episode severity unspecified F31.60 [facility] [id number] [place] [address] Apr, Dysuria R30.0 ; Other viral agents as the cause of diseases classified elsewhere B97.89 and Acute upper respiratory infection, unspecified J06.9 [place] [id number] [place] [address] Mar, Diabetes E11.9 ; Urine leukocytes R82.99 and Psychosis, unspecified psychosis type F29 [place] [id number] [place] [address] Mar, Diabetes E11.9 [place] [id number] [place] [address] Feb, [facility] [id number] [place] [address] Jan, [facility] [id number] [place] [address] Dec, Psychosis, unspecified psychosis type F29 [facility] [id number] [place] [address] Dec, [facility] [id number] [place] [address] Dec, [facility] [id number] [place] [address] Dec, Psychosis, unspecified psychosis type F29 [facility] [id number] [place] [address] Nov, Schizoaffective disorder, unspecified type F25.9 [facility] [address] [place] [address] Oct, [facility] [id number] [place] [address] Oct, Conjunctivitis of right eye, unspecified conjunctivitis type H10.9 [facility] [id number] [place] [address] Aug, [facility] [id number] [place] [id number] Jun, Encounter for dental examination Z01.20 [facility] [address] [address] Jun, Diabetes E11.9 and Bipolar affect, depressed F31.30 [facility] [id number] [place] [address] Jun, Other bipolar disorder F31.89 [facility] [address] [address] Jun, [facility] [id number] [place] [address] Apr, [facility] [id number] [place] [address] Dec, [facility] [id number] [place] [address] Dec, [facility] [id number] [place] [address] Sep, [facility] [id number] [place] [address] Jun, [facility] [id number] [place] [address] Jun, [facility] [id number] [place] [address] Mar, [facility] [id number] [place] [address] Mar, [facility] [place] [facility] [address] [id number] [place] [address] Nov, [facility] [place] [facility] [address] [id number] [place] [address] Nov, [facility] [place] [facility] [address] [id number] [place] [address] Sep, [facility] [place] [facility] [address] [id number] [place] [address] Sep, [facility] [place] [facility] [address] [id number] [place] [address] Sep, [facility] [place] [facility] [address] [id number] [place] [address] Sep, [facility] [place] [facility] [address] [id number] [place] [address] Sep, [facility] [place] [facility] [address] [id number] [place] [address] Aug, [facility] [place] [facility] [address] [id number] [place] [address] Aug, [facility] [place] [facility] [address] [id number] [place] [address] Aug, [facility] [place] [facility] [address] [id number] [address] Aug, [facility] [place] [facility] [address] [id number] [address] Aug, [facility] [place] [facility] [address] [id number] [place] [address] Aug, [facility] [place] [facility] [address] [id number] [place] [address] July, [facility] [place] [facility] [address] [id number] [place] [address] July, [facility] [place] [facility] [address] [id number] [place] [address] Jun, [facility] [place] [facility] [address] [id number] [place] [address] Jun, [facility] [place] [facility] [address] [id number] [place] [address] Jun, [facility] [place] [facility] [address] [id number] [place] [address] Jun, [facility] [place] [facility] [address] [id number] [place] [address] Jun, [facility] [place] [facility] [address] [id number] [place] [address] Jun, [facility] [place] [facility] [address] [id number] [place] [address] Jun, [facility] [place] [facility] [address] [id number] [place] [address] Jun, [facility] [place] [facility] [address] [id number] [place] [address] May, [facility] [place] [facility] [address] [id number] [place] [address] May, [facility] [place] [facility] [address] [id number] [place] [address] May, [facility] [place] [facility] [address] [id number] [place] [address] May, [facility] [place] [facility] [address] [id number] [place] [address] May, [facility] [place] [facility] [address] [id number] [place] [address] May, [facility] [place] [facility] [address] [id number] [place] [address] May, [facility] [place] [facility] [address] [id number] [place] [address] May, [facility] [place] [facility] [address] [id number] [place] [address] May, [facility] [place] [facility] [address] [id number] [place] [address] Apr, [facility] [place] [facility] [address] [id number] [place] [address] Apr, [facility] [place] [facility] [address] [id number] [place] [address] Mar, [facility] [place] [facility] [address] [id number] [place] [address] Mar, [facility] [place] [facility] [address] [id number] [place] [address] Feb, [facility] [place] [facility] [address] [id number] [place] [address] Feb, [facility] [place] [facility] [address] [id number] [place] [address] Nov, [facility] [place] [facility] [address] [id number] [place] [address] Nov, [facility] [place] [facility] [address] [id number] [place] [address] Oct, [facility] [place] [facility] [address] [id number] [place] [address] Oct, [facility] [place] [facility] [address] [id number] [address] Oct, [facility] [place] [facility] [address] [id number] [place] [address] Oct, [facility] [place] [facility] [address] [id number] [place] [address] Oct, [facility] [place] [facility] [address] [id number] [place] [address] Sep, [facility] [place] [facility] [address] [id number] [place] [address] 11 Sep, 2012 [facility] [address] [id number] [place] [address] Sep, [facility] [place] [facility] [address] [id number] [place] [address] 02 Sep, 2012 [facility] [address] [id number] [place] [address] Aug, [facility] [place] [facility] [address] [id number] [place] [address] 17 Aug, 2012 [facility] [address] [id number] [place] [address] Aug, [facility] [place] [facility] [address] [id number] [place] [address] 07 Aug, 2012 [facility] [address] [facility] [id number] [place] [address] Jun, [facility] [place] [facility] [address] [id number] [place] [address] 18 Jun, 2012 [facility] [address] [id number] [place] [address] 17 Jun, 2012 [facility] [place] [facility] [address] [facility] [id number] [place] [address] 17 Jun, 2012 [facility] [place] [facility] [address] [id number] [place] [address] 21 May, 2012 [facility] [place] [facility] [address] [id number] [place] [address] 18 May, 2012 [facility] [place] [facility] [address] [id number] [place] [address] 18 May, 2012 [facility] [place] [facility] [address] [id number] [place] [address] 13 May, 2012 [facility] [place] [facility] [address] [facility] [id number] [place] [address] 11 May, 2012 [facility] [place] [facility] [address] [id number] [place] [address] May, [facility] [address] [id number] [place] [address] 21 Apr, 2012 [facility] [place] [facility] [address] [id number] [place] [address] 20 Apr, 2012 [facility] [place] [facility] [address] [id number] [place] [address] 19 Apr, 2012 [facility] [place] [facility] [address] [id number] [place] [address] 19 Apr, 2012 [facility] [address] [id number] [place] [address] 19 Apr, 2012 [facility] [address] [id number] [place] [address] 20 Feb, 2012 [facility] [address] [id number] [place] [address] 20 Feb, 2012 [facility] [address] [id number] [place] [address] 19 Feb, 2012 [facility] [address] [id number] [place] [address] 19 Feb, 2012 [facility] [address] [id number] [place] [address] 19 Feb, 2012 [facility] [place] [facility] [address] [id number] [place] [address] 19 Feb, 2012 [facility] [place] [facility] [address] [id number] [place] [address] 19 Feb, 2012 [facility] [place] [facility] [address] [id number] [place] [address] 19 Feb, 2012 [facility] [place] [facility] [address] [id number] [place] [address] 14 Feb, 2012 [facility] [place] [facility] [address] [id number] [place] [address] 14 Feb, 2012 [facility] [place] [facility] [address] [id number] [place] [address] 13 Feb, 2012 [facility] [place] [facility] [address] [id number] [place] [address] Feb, [facility] [place] [facility] [address] [id number] [place] [address] Feb, [facility] [place] [facility] [address] [id number] [place] [address] Feb, [facility] [place] [facility] [address] [id number] [place] [address] Feb, [facility] [place] [facility] [address] [id number] [place] [address] Feb, [facility] [place] [facility] [address] [id number] [place] [address] Feb, [facility] [place] [facility] [address] [id number] [place] [address] Feb, [facility] [place] [facility] [address] [id number] [place] [address] Feb, [facility] [place] [facility] [address] [id number] [place] [address] Feb, [facility] [place] [facility] [address] [id number] [place] [address] Feb, [facility] [place] [facility] [address] [id number] [place] [address] Feb, [facility] [place] [facility] [address] [id number] [place] [address] Feb, [facility] [place] [facility] [address] [id number] [place] [address] Feb, [facility] [place] [facility] [address] [id number] [place] [address] Feb, [facility] [place] [facility] [address] [id number] [place] [address] Feb, [facility] [place] [facility] [address] [id number] [place] [address] Jan, [facility] [place] [facility] [address] [id number] [place] [address] Jan, [facility] [place] [facility] [address] [id number] [place] [address] Dec, [facility] [place] [facility] [address] [id number] [place] [address] Dec, [facility] [place] [facility] [address] [id number] [place] [address] Dec, [facility] [place] [facility] [address] [id number] [place] [address] Dec, [facility] [place] [facility] [address] [id number] [place] [address] Nov, [facility] [place] [facility] [address] [id number] [place] [address] Nov, [facility] [place] [facility] [address] [id number] [place] [address] Nov, [facility] [place] [facility] [address] [id number] [place] [address] Nov, [facility] [place] [facility] [address] [id number] [place] [address] Oct, [facility] [place] [facility] [address] [id number] [place] [address] Oct, [facility] [place] [facility] [address] [id number] [place] [address] Sep, [facility] [place] [facility] [address] [id number] [place] [address] Sep, [facility] [place] [facility] [address] [id number] [place] [address] Sep, [facility] [place] [facility] [address] [id number] [place] [address] Aug, [facility] [place] [facility] [address] [id number] [place] [address] Aug, [facility] [place] [facility] [address] [id number] [place] [address] Aug, [facility] [place] [facility] [address] [id number] [place] [address] Aug, [facility] [place] [facility] [address] [id number] [place] [address] Aug, [facility] [place] [facility] [address] [id number] [place] [address] July, [facility] [place] [facility] [address] [id number] [place] [address] July, [facility] [place] [facility] [address] [id number] [place] [address] July, [facility] [place] [facility] [address] [id number] [place] [address] July, [facility] [place] [facility] [address] [id number] [place] [address] July, [facility] [place] [facility] [address] [id number] [place] [address] Jun, [facility] [place] [facility] [address] [id number] [place] [address] May, [facility] [place] [facility] [address] [id number] [place] [address] 16 Apr, 2011 [facility] [place] [facility] [address] [id number] [place] [address] Apr, [facility] [place] [facility] [address] [id number] [place] [address] Apr, [facility] [place] [facility] [address] [id number] [place] [address] 31 Mar, 2011 [facility] [address] [id number] [place] [address] 31 Mar, 2011 [facility] [place] [facility] [address] [id number] [place] [address] 23 Mar, 2011 [facility] [address] [id number] [place] [address] Mar, [facility] [place] [facility] [address] [id number] [place] [address] Mar, [facility] [address] [id number] [place] [address] 17 Mar, 2011 [facility] [place] [facility] [address] [id number] [place] [address] 16 Mar, 2011 [facility] [address] [id number] [place] [address] Mar, [facility] [place] [facility] [address] [id number] [place] [address] Feb, [facility] [place] [facility] [address] [id number] [place] [address] Feb, [facility] [place] [facility] [address] [id number] [place] [address] Feb, [facility] [place] [facility] [address] [id number] [place] [address] Feb, [facility] [place] [facility] [address] [id number] [place] [address] Feb, [facility] [place] [facility] [address] [id number] [place] [address] Jan, [facility] [place] [facility] [address] [id number] [place] [address] Jan, [facility] [place] [facility] [address] [id number] [place] [address] Jan, [facility] [place] [facility] [address] [id number] [place] [address] Jan, [facility] [place] [facility] [address] [id number] [place] [address] 14 Dec, 2010 [facility] [place] [facility] [address] [id number] [place] [address] 14 Dec, 2010 [facility] [place] [facility] [address] [id number] [place] [address] Sep, [facility] [place] [facility] [address] [id number] [place] [address] July, [facility] [place] [facility] [address] [id number] [place] [address] Apr, [facility] [place] [facility] [address] [id number] [place] [address] Mar, [facility] [place] [facility] [address] [id number] [place] [address] Feb, [facility] [place] [facility] [address] [id number] [place] [address] Feb, [facility] [place] [facility] [address] [id number] [place] [address] Feb, [facility] [place] [facility] [address] [id number] [place] [address] Feb, [facility] [place] [facility] [address] [id number] [place] [address] 15 Feb, 2010 [facility] [place] [facility] [address] [id number] [place] [address] Feb, [facility] [place] [facility] [address] [id number] [place] [address] Feb, [facility] [place] [facility] [address] [id number] [place] [address] Dec, [facility] [place] [facility] [address] [id number] [place] [address] Jan, [facility] [address] [facility] [id number] [place] [address] Apr, IMMUNIZATIONS No Known Immunizations SOCIAL HISTORY Never Assessed REASON FOR VISIT BS ck PLAN OF CARE VITAL SIGNS MEDICATIONS Unknown Medications RESULTS No Results PROCEDURES No Known procedures INSTRUCTIONS MEDICATIONS ADMINISTERED No Known Medications MEDICAL (GENERAL) HISTORY Type Description Date Medical History HBP Medical History Heart Disease Medical History Stroke 90' Medical History Cardiac Pacemakes Medical History Blood Thinners Medical History Arthitis Medical History Back Trouble Medical History Bipolar affect, depressed Medical History Bipolar affect, depressed Medical History Other bipolar disorder Surgical History Carotid Surgical History Bypass 1998 Surgical History cholecystectomy Surgical History colonscopy Surgical History Pacemaker Hospitalization History Stroke Hospitalization History Surgery Hospitalization History Hyperglycemia 2012 Hospitalization History [facility] 11/28/2015-12/04/2015 2016 Hospitalization History Schizophrenia 09/26/16 Hospitalization History AMS, UTI, hyponatremia-[facility] 10/21/16 Hospitalization History stent placed 02/02/17 Hospitalization History stent placed 02/2017 Hospitalization History [facility]- Syncope, Dehydration and Hypotension. 06/08/2017
--- OUTSIDE RECORDS SUMMARY | 2018-09-05 12:47 | XMS REPORT ---
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 Name Role Phone WOOD CALDERON Unavailable PROBLEMS Type Condition ICD9-CM Code BPG75-DQ Code Onset Dates Condition Status SNOMED Code Problem CVA (cerebral vascular accident) I63.9 Active 672346882 Problem Bipolar affective disorder, current episode mixed, current episode severity unspecified F31.60 Active 376620723 Problem Psychosis, unspecified psychosis type F29 Active 06300281 Problem Diabetes E11.9 Active 40880806 Problem Pacemaker Z95.0 Active 822098920 Problem Diabetes 1.5, 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 702575409 Problem Age-related incipient cataract of both eyes H25.093 Active 541679271 Problem Chronic idiopathic constipation K59.04 Active 79450238 Problem Coronary artery disease involving [place] coronary artery of [place] heart without angina pectoris I25.10 Active 1847409503160 Problem 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 Active 765632158 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 104003079 ALLERGIES No Information ENCOUNTERS Encounter Location Date Diagnosis [facility] [id number] [place] [address] Mar, [facility] [id number] [place] [address] Dec, [facility] [id number] [place] [address] Dec, [facility] [id number] [place] [address] Dec, Dizziness R42 and Diabetes 1.5, 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 [facility] [address] [address] Dec, [facility] [id number] [place] [address] Dec, [facility] [id number] [place] [address] Dec, Psychosis, unspecified psychosis type F29 and Bipolar affective disorder, current episode mixed, current episode severity unspecified F31.60 [place] [address] [address] Dec, [facility] [id number] [place] [address] Dec, [place] [id number] [place] [address] Dec, 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 ; senior living current use of insulin Z79.4 and Hyperglycemia R73.9 [place] [id number] [place] [address] Oct, [facility] [id number] [place] [address] Oct, [place] [id number] [place] [address] Oct, [facility] [id number] [place] [address] Sep, [facility] [id number] [place] [address] Aug, Upper respiratory tract infection, unspecified type J06.9 ; Chronic idiopathic constipation K59.04 ; Fluid level behind tympanic membrane of both ears H65.93 and Abdominal pain R10.9 [facility] [id number] [place] [address] July, Diabetes E11.9 [facility] [id number] [place] [address] Jun, Dehydration E86.0 ; Diabetes E11.9 and Hyperglycemia R73.9 [place] [id number] [place] [address] Jun, [place] [id number] [place] [address] Jun, Vertigo R42 ; Syncope, unspecified syncope type R55 ; Diabetes E11.9 and Hyperglycemia R73.9 [place] [id number] [place] [address] May, Psychosis, unspecified psychosis type F29 and Bipolar affective disorder, current episode mixed, current episode severity unspecified F31.60 [place] [id number] [place] [address] May, [place] [id number] [place] [address] May, Diabetes E11.9 [facility] [id number] [place] [id number] Apr, Dental examination Z01.20 and Dental caries K02.9 [place] [id number] [place] [address] Apr, Dental examination Z01.20 and Dental abscess K04.7 [place] [id number] [place] [address] Mar, Psychosis, unspecified psychosis type F29 and Bipolar affective disorder, current episode mixed, current episode severity unspecified F31.60 [place] [id number] [place] [address] Mar, [place] [id number] [place] [address] Feb, [place] [id number] [place] [address] Feb, Left wrist pain M25.532 [place] [id number] [place] [address] Jan, [facility] [id number] [place] [address] Jan, Psychosis, unspecified psychosis type F29 and Bipolar affective disorder, current episode mixed, current episode severity unspecified F31.60 [facility] [id number] [place] [address] Jan, Diabetes E11.9 [facility] [id number] [place] [address] Jan, Left wrist pain M25.532 [place] [id number] [place] [address] Dec, Psychosis, unspecified psychosis type F29 and Bipolar affective disorder, current episode mixed, current episode severity unspecified F31.60 [facility] [id number] [place] [address] Dec, Syncope, unspecified syncope type R55 ; Vertigo R42 ; Diabetes E11.9 ; Psychosis, unspecified psychosis type F29 and Fall, initial encounter W19.XXXA [place] [id number] [place] [address] Dec, Diabetes E11.9 ; Neck pain M54.2 and Vertigo R42 [facility] [id number] [place] [address] Nov, [facility] [id number] [place] [address] 08 Nov, 2016 [facility] [id number] [place] [address] Nov, [facility] [id number] [place] [address] 06 Nov, 2016 Diabetes E11.9 [facility] [id number] [place] [address] 05 Nov, 2016 Diabetes E11.9 [facility] [address] [place] [address] Oct, [facility] [address] [id number] [id number] Oct, [facility] [address] [facility] [id number] [address] Oct, [facility] [id number] [address] Oct, Bipolar affective disorder, current episode mixed, current episode severity unspecified F31.60 [facility] [address] [id number] [id number] Sep, [facility] [address] [id number] [address] Sep, Acute maxillary sinusitis, recurrence not specified J01.00 [facility] [address] [address] Sep, Bipolar affective disorder, current episode mixed, current episode severity unspecified F31.60 [facility] [address] [facility] [id number], [place] [address] Sep, Diabetes E11.9 [facility] [address] [id number] [address] July, Diabetes E11.9 [facility] [address] [id number] [address] July, Diabetes E11.9 [facility] [id number] [address] Jun, [facility] [address] [facility] [id number], [place] [address] May, Bipolar affective disorder, current episode mixed, current episode severity unspecified F31.60 [facility] [address] [facility] [id number], [place] [address] May, Acute non-recurrent maxillary sinusitis J01.00 [facility] [id number] [place] [address] 10 Apr, 2016 Psychosis, unspecified psychosis type F29 and Bipolar affective disorder, current episode mixed, current episode severity unspecified F31.60 [facility] [id number] [place] [address] 03 Apr, 2016 Dysuria R30.0 ; Other viral agents as the cause of diseases classified elsewhere B97.89 and Acute upper respiratory infection, unspecified J06.9 [place] [address] [address] Mar, Diabetes E11.9 ; Urine leukocytes R82.99 and Psychosis, unspecified psychosis type F29 [place] [id number] [place] [address] Mar, Diabetes E11.9 [place] [id number] [place] [address] Feb, [place] [id number] [place] [address] Jan, [facility] [id number] [place] [address] Dec, Psychosis, unspecified psychosis type F29 [facility] [id number] [place] [address] Dec, [facility] [id number] [place] [address] Dec, [facility] [id number] [place] [address] Dec, Psychosis, unspecified psychosis type F29 [facility] [id number] [place] [address] Nov, Schizoaffective disorder, unspecified type F25.9 [facility] [id number] [place] [address] Oct, [facility] [address] [place] [address] Oct, Conjunctivitis of right eye, unspecified conjunctivitis type H10.9 [facility] [id number] [place] [address] Aug, [facility] [address] [place] [id number] Jun, Encounter for dental examination Z01.20 [facility] [address] [address] Jun, Diabetes E11.9 and Bipolar affect, depressed F31.30 [facility] [address] [address] Jun, Other bipolar disorder F31.89 [facility] [id number] [place] [address] Jun, [facility] [address] [address] Apr, [facility] [id number] [place] [address] Dec, [facility] [id number] [place] [address] Dec, [facility] [id number] [place] [address] Sep, [facility] [id number] [place] [address] Jun, [facility] [id number] [place] [address] Jun, [facility] [id number] [place] [address] Mar, [facility] [id number] [place] [address] Mar, [facility] [id number] [place] [address] Nov, [facility] [place] [facility] [address] [id number] [place] [address] Nov, [facility] [place] [facility] [address] [id number] [place] [address] Sep, [facility] [place] [facility] [address] [id number] [place] [address] Sep, [facility] [place] [facility] [address] [id number] [place] [address] Sep, [facility] [place] [facility] [address] [id number] [place] [address] Sep, [facility] [place] [facility] [address] [id number] [place] [address] Sep, [facility] [place] [facility] [address] [id number] [place] [address] Aug, [facility] [place] [facility] [address] [id number] [place] [address] Aug, [facility] [place] [facility] [address] [id number] [place] [address] Aug, [facility] [place] [facility] [address] [id number] [place] [address] Aug, [facility] [place] [facility] [address] [id number], [place] [address] Aug, [facility] [place] [facility] [address] [id number], [place] [address] Aug, [facility] [place] [facility] [address] [id number] [place] [address] July, [facility] [place] [facility] [address] [id number] [place] [address] July, [facility] [place] [facility] [address] [id number] [place] [address] Jun, [facility] [place] [facility] [address] [id number] [place] [address] 24 Jun, 2013 [facility] [place] [facility] [address] [id number] [place] [address] Jun, [facility] [place] [facility] [address] [id number] [place] [address] Jun, [facility] [place] [facility] [address] [id number] [place] [address] Jun, [facility] [place] [facility] [address] [id number] [place] [address] Jun, [facility] [place] [facility] [address] [id number] [place] [address] Jun, [facility] [place] [facility] [address] [id number] [place] [address] Jun, [facility] [place] [facility] [address] [id number] [place] [address] May, [facility] [place] [facility] [address] [id number] [place] [address] May, [facility] [place] [facility] [address] [id number] [place] [address] May, [facility] [place] [facility] [address] [id number] [place] [address] May, [facility] [place] [facility] [address] [id number] [place] [address] May, [facility] [place] [facility] [address] [id number] [place] [address] May, [facility] [place] [facility] [address] [id number] [place] [address] May, [facility] [place] [facility] [address] [id number] [place] [address] May, [facility] [place] [facility] [address] [id number] [place] [address] May, [facility] [place] [facility] [address] [id number] [place] [address] Apr, [facility] [place] [facility] [address] [id number] [place] [address] Apr, [facility] [place] [facility] [address] [id number] [place] [address] Mar, [facility] [place] [facility] [address] [id number] [place] [address] Mar, [facility] [place] [facility] [address] [id number] [place] [address] Feb, [facility] [place] [facility] [address] [id number] [place] [address] Feb, [facility] [place] [facility] [address] [id number] [place] [address] Nov, [facility] [place] [facility] [address] [id number] [place] [address] Nov, [facility] [place] [facility] [address] [id number] [place] [address] Oct, [facility] [place] [facility] [address] [id number] [place] [address] Oct, [facility] [place] [facility] [address] [id number] [place] [address] Oct, [facility] [place] [facility] [address] [id number], [place] [address] Oct, [facility] [place] [facility] [address] [id number] [place] [address] Oct, [facility] [place] [facility] [address] [id number] [place] [address] Sep, [facility] [place] [facility] [address] [id number], [place] [address] Sep, [facility] [place] [facility] [address] [id number] [place] [address] 10 Sep, 2012 [facility] [address] [id number] [place] [address] 02 Sep, 2012 [facility] [place] [facility] [address] [id number] [place] [address] Aug, [facility] [address] [id number] [place] [address] 17 Aug, 2012 [facility] [place] [facility] [address] [id number] [place] [address] 10 Aug, 2012 [facility] [address] [id number] [place] [address] Aug, [facility] [address] [id number] [place] [address] Jun, [facility] [address] [facility] [id number] [place] [address] Jun, [facility] [address] [id number] [place] [address] Jun, [facility] [address] [id number] [place] [address] Jun, [facility] [address] [facility] [id number] [place] [address] May, [facility] [address] [id number] [place] [address] 18 May, 2012 [facility] [place] [facility] [address] [id number] [place] [address] 18 May, 2012 [facility] [place] [facility] [address] [id number] [place] [address] 13 May, 2012 [facility] [place] [facility] [address] [id number] [place] [address] 11 May, 2012 [facility] [place] [facility] [address] [facility] [id number] [place] [address] 04 May, 2012 [facility] [place] [facility] [address] [id number] [place] [address] 21 Apr, 2012 [facility] [address] [id number] [place] [address] 20 Apr, 2012 [facility] [place] [facility] [address] [id number] [place] [address] 19 Apr, 2012 [facility] [address] [id number] [place] [address] 19 Apr, 2012 [facility] [address] [id number] [place] [address] 19 Apr, 2012 [facility] [address] [id number] [place] [address] 20 Feb, 2012 [facility] [address] [id number] [place] [address] 20 Feb, 2012 [facility] [address] [id number] [place] [address] 19 Feb, 2012 [facility] [address] [id number] [place] [address] 19 Feb, 2012 [facility] [address] [id number] [place] [address] 19 Feb, 2012 [facility] [address] [id number] [place] [address] 19 Feb, 2012 [facility] [address] [id number] [place] [address] 19 Feb, 2012 [facility] [place] [facility] [address] [id number] [place] [address] 19 Feb, 2012 [facility] [place] [facility] [address] [id number] [place] [address] 14 Feb, 2012 [facility] [place] [facility] [address] [id number] [place] [address] 14 Feb, 2012 [facility] [place] [facility] [address] [id number] [place] [address] Feb, [facility] [place] [facility] [address] [id number] [place] [address] Feb, [facility] [place] [facility] [address] [id number] [place] [address] Feb, [facility] [place] [facility] [address] [id number] [place] [address] Feb, [facility] [place] [facility] [address] [id number] [place] [address] Feb, [facility] [place] [facility] [address] [id number] [place] [address] Feb, [facility] [place] [facility] [address] [id number] [place] [address] Feb, [facility] [place] [facility] [address] [id number] [place] [address] Feb, [facility] [place] [facility] [address] [id number] [place] [address] Feb, [facility] [place] [facility] [address] [id number] [place] [address] Feb, [facility] [place] [facility] [address] [id number] [place] [address] Feb, [facility] [place] [facility] [address] [id number] [place] [address] Feb, [facility] [place] [facility] [address] [id number] [place] [address] Feb, [facility] [place] [facility] [address] [id number] [place] [address] Feb, [facility] [place] [facility] [address] [id number] [place] [address] Feb, [facility] [place] [facility] [address] [id number] [place] [address] Feb, [facility] [place] [facility] [address] [id number] [place] [address] Jan, [facility] [place] [facility] [address] [id number] [place] [address] Jan, [facility] [place] [facility] [address] [id number] [place] [address] Dec, [facility] [place] [facility] [address] [id number] [place] [address] Dec, [facility] [place] [facility] [address] [id number] [place] [address] Dec, [facility] [place] [facility] [address] [id number] [place] [address] Dec, [facility] [place] [facility] [address] [id number] [place] [address] Nov, [facility] [place] [facility] [address] [id number] [place] [address] Nov, [facility] [place] [facility] [address] [id number] [place] [address] Nov, [facility] [place] [facility] [address] [id number] [place] [address] Nov, [facility] [place] [facility] [address] [id number] [place] [address] Oct, [facility] [place] [facility] [address] [id number] [place] [address] Oct, [facility] [place] [facility] [address] [id number] [place] [address] Sep, [facility] [place] [facility] [address] [id number] [place] [address] Sep, [facility] [place] [facility] [address] [id number] [place] [address] Sep, [facility] [place] [facility] [address] [id number] [place] [address] Aug, [facility] [address] [id number] [place] [address] Aug, [facility] [place] [facility] [address] [id number] [place] [address] Aug, [facility] [place] [facility] [address] [id number] [place] [address] Aug, [facility] [place] [facility] [address] [id number] [place] [address] Aug, [facility] [place] [facility] [address] [id number] [place] [address] July, [facility] [place] [facility] [address] [id number] [place] [address] July, [facility] [place] [facility] [address] [id number] [place] [address] July, [facility] [place] [facility] [address] [id number] [place] [address] July, [facility] [place] [facility] [address] [id number] [place] [address] July, [facility] [place] [facility] [address] [id number] [place] [address] Jun, [facility] [place] [facility] [address] [id number] [place] [address] May, [facility] [place] [facility] [address] [id number] [place] [address] 16 Apr, 2011 [facility] [place] [facility] [address] [id number] [place] [address] Apr, [facility] [place] [facility] [address] [id number] [place] [address] Apr, [facility] [place] [facility] [address] [id number] [place] [address] Mar, [facility] [place] [facility] [address] [id number] [place] [address] 31 Mar, 2011 [facility] [address] [id number] [place] [address] Mar, [facility] [place] [facility] [address] [id number] [place] [address] Mar, [facility] [address] [id number] [place] [address] Mar, [facility] [place] [facility] [address] [id number] [place] [address] 17 Mar, 2011 [facility] [address] [id number] [place] [address] 16 Mar, 2011 [facility] [place] [facility] [address] [id number] [place] [address] Mar, [facility] [address] [id number] [place] [address] Feb, [facility] [address] [id number] [place] [address] Feb, [facility] [address] [id number] [place] [address] Feb, [facility] [place] [facility] [address] [id number] [place] [address] Feb, [facility] [address] [id number] [place] [address] Feb, [facility] [place] [facility] [address] [id number] [place] [address] Jan, [facility] [place] [facility] [address] [id number] [place] [address] Jan, [facility] [place] [facility] [address] [id number] [place] [address] Jan, [facility] [place] [facility] [address] [id number] [place] [address] Jan, [facility] [place] [facility] [address] [id number] [place] [address] 14 Dec, 2010 [facility] [address] [id number] [place] [address] 14 Dec, 2010 [facility] [place] [facility] [address] [id number] [place] [address] 13 Sep, 2010 [facility] [place] [facility] [address] [id number] [place] [address] July, [facility] [address] [id number] [place] [address] Apr, [facility] [place] [facility] [address] [id number] [place] [address] Mar, [facility] [address] [id number] [place] [address] Feb, [facility] [address] [id number] [place] [address] Feb, [facility] [place] [facility] [address] [id number] [place] [address] Feb, [facility] [place] [facility] [address] [id number] [place] [address] Feb, [facility] [place] [facility] [address] [id number] [place] [address] 15 Feb, 2010 [facility] [place] [facility] [address] [id number] [place] [address] Feb, [facility] [place] [facility] [address] [id number] [place] [address] Feb, [facility] [place] [facility] [address] [id number] [place] [address] Dec, [facility] [place] [facility] [address] [id number] [place] [address] Jan, [facility] [place] [facility] [address] [id number] [place] [address] 14 Apr, 2008 IMMUNIZATIONS No Known Immunizations SOCIAL HISTORY Never Assessed REASON FOR VISIT BS f/u attempt PLAN OF CARE VITAL SIGNS MEDICATIONS Unknown [...] Surgery Hospitalization History Hyperglycemia 2012 Hospitalization History [facility] 11/28/2015-12/04/2015 2016 Hospitalization History Schizophrenia 09/26/16 Hospitalization History AMS, UTI, hyponatremia-[facility] 10/21/16 Hospitalization History stent placed 02/02/17 Hospitalization History stent placed 02/2017 Hospitalization History [facility]- Syncope, Dehydration and Hypotension. 06/08/2017
--- OUTSIDE RECORDS SUMMARY | 2018-09-05 12:48 | XMS REPORT ---
Author Author RIN MADRID 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 012886248 Problem Age-related incipient cataract of both eyes H25.093 Active 414552097 Problem Chronic idiopathic constipation K59.04 Active 16123033 Problem 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 Active 9335790928589 Problem 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 Active 743236933 Problem emt intermediate current use of insulin Z79.4 Active 979340222 ALLERGIES Substance Reaction Event Type Date Status Codeine Sulfate Unknown Drug Allergy Dec, Active Trufant Unknown Non Drug Allergy Dec, Active Tejeda Unknown Non Drug Allergy Dec, Active Pork Unknown Non Drug Allergy Dec, Active Yeast Unknown Non Drug Allergy Dec, Active Jarratt Unknown Non Drug Allergy Dec, Active ENCOUNTERS Encounter Location Date Diagnosis [facility] [address] [facility] [id number], [place] [address] Mar, [facility] [address] [id number] [address] Dec, [facility] [address] [facility] [id number], [place] [address] Dec, [facility] [id number] [place] [address] Dec, Dizziness R42 and Diabetes 1.5, 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 [place] [id number] [place] [address] Dec, [place] [address] [address] Dec, [place] [address] [address] Dec, Psychosis, unspecified psychosis type F29 and Bipolar affective disorder, current episode mixed, current episode severity unspecified F31.60 [place] [address] [address] Dec, [place] [address] [address] Dec, [place] [id number] [place] [address] Dec, 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 ; assisted current use of insulin Z79.4 and Hyperglycemia R73.9 [place] [id number] [place] [address] Oct, [place] [id number] [place] [address] Oct, [place] [address] [place] [address] Oct, [place] [id number] [place] [address] Sep, [facility] [id number] [place] [address] Aug, Upper respiratory tract infection, unspecified type J06.9 ; Chronic idiopathic constipation K59.04 ; Fluid level behind tympanic membrane of both ears H65.93 and Abdominal pain R10.9 [place] [address] [place] [address] July, Diabetes E11.9 [place] [address] [address] Jun, Dehydration E86.0 ; Diabetes E11.9 and Hyperglycemia R73.9 [place] [address] [address] Jun, [place] [address] [address] Jun, Vertigo R42 ; Syncope, unspecified syncope type R55 ; Diabetes E11.9 and Hyperglycemia R73.9 [place] [address] [address] May, Psychosis, unspecified psychosis type F29 and Bipolar affective disorder, current episode mixed, current episode severity unspecified F31.60 [place] [id number] [place] [address] May, [place] [id number] [place] [address] May, Diabetes E11.9 [facility] [id number] [place] [id number] Apr, Dental examination Z01.20 and Dental caries K02.9 [place] [id number] [place] [address] Apr, Dental examination Z01.20 and Dental abscess K04.7 [place] [address] [place] [address] Mar, Psychosis, unspecified psychosis type F29 and Bipolar affective disorder, current episode mixed, current episode severity unspecified F31.60 [place] [id number] [place] [address] Mar, [facility] [id number] [place] [address] Feb, [facility] [address] [address] Feb, Left wrist pain M25.532 [facility] [address] [place] [address] Jan, [facility] [address] [place] [address] Jan, Psychosis, unspecified psychosis type F29 and Bipolar affective disorder, current episode mixed, current episode severity unspecified F31.60 [place] [address] [place] [address] Jan, Diabetes E11.9 [facility] [address] [place] [address] Jan, Left wrist pain M25.532 [place] [address] [place] [address] Dec, Psychosis, unspecified psychosis type F29 and Bipolar affective disorder, current episode mixed, current episode severity unspecified F31.60 [place] [address] [place] [address] Dec, Syncope, unspecified syncope type R55 ; Vertigo R42 ; Diabetes E11.9 ; Psychosis, unspecified psychosis type F29 and Fall, initial encounter W19.XXXA [place] [address] [place] [address] Dec, Diabetes E11.9 ; Neck pain M54.2 and Vertigo R42 [facility] [address] [place] [address] Nov, [facility] [address] [place] [address] Nov, [facility] [address] [place] [address] Nov, [facility] [address] [address] Nov, Diabetes E11.9 [facility] [address] [facility] [id number] [address] Nov, Diabetes E11.9 [facility] [address] [address] Oct, [facility] [id number] [id number] Oct, [facility] [address] [address] Oct, [facility] [address] [address] Oct, Bipolar affective disorder, current episode mixed, current episode severity unspecified F31.60 [facility] [id number] [id number] Sep, [facility] [address] [address] Sep, Bipolar affective disorder, current episode mixed, current episode severity unspecified F31.60 [facility] [address] [address] Sep, Acute maxillary sinusitis, recurrence not specified J01.00 [facility] [address] [id number] [address] Sep, Diabetes E11.9 [facility] [address] [address] July, Diabetes E11.9 [facility] [address] [id number] [address] July, Diabetes E11.9 [facility] [address] [address] Jun, [facility] [address] [id number] [address] May, Bipolar affective disorder, current episode mixed, current episode severity unspecified F31.60 [facility] [address] [place] [address] May, Acute non-recurrent maxillary sinusitis J01.00 [facility] [address] [place] [address] 10 Apr, 2016 Psychosis, unspecified psychosis type F29 and Bipolar affective disorder, current episode mixed, current episode severity unspecified F31.60 [facility] [address] [place] [address] 03 Apr, 2016 Dysuria R30.0 ; Other viral agents as the cause of diseases classified elsewhere B97.89 and Acute upper respiratory infection, unspecified J06.9 [place] [address] [place] [address] Mar, Diabetes E11.9 ; Urine leukocytes R82.99 and Psychosis, unspecified psychosis type F29 [place] [address] [place] [address] Mar, Diabetes E11.9 [place] [address] [place] [address] Feb, [place] [address] [place] [address] Jan, [place] [address] [place] [address] Dec, Psychosis, unspecified psychosis type F29 [place] [address] [place] [address] Dec, [facility] [address] [place] [address] Dec, [place] [address] [place] [address] Dec, Psychosis, unspecified psychosis type F29 [place] [address] [place] [address] Nov, Schizoaffective disorder, unspecified type F25.9 [facility] [address] [place] [address] Oct, [facility] [address] [place] [address] Oct, Conjunctivitis of right eye, unspecified conjunctivitis type H10.9 [facility] [address] [address] Aug, [facility] [id number] [place] [id number] Jun, Encounter for dental examination Z01.20 [facility] [address] [place] [address] Jun, Diabetes E11.9 and Bipolar affect, depressed F31.30 [facility] [address] [address] Jun, Other bipolar disorder F31.89 [facility] [address] [address] Jun, [facility] [address] [address] Apr, [facility] [address] [place] [address] Dec, [facility] [id number] [place] [address] Dec, [facility] [address] [place] [address] Sep, [facility] [address] [address] Jun, [facility] [id number] [place] [address] Jun, [facility] [address] [address] Mar, [facility] [place] [facility] [address] [id number] [place] [address] Mar, [facility] [place] [facility] [address] [id number] [place] [address] Nov, [facility] [place] [facility] [address] [id number] [place] [address] Nov, [facility] [place] [facility] [address] [id number] [place] [address] Sep, [facility] [place] [facility] [address] [id number] [place] [address] Sep, [facility] [place] [facility] [address] [id number] [place] [address] Sep, [facility] [place] [facility] [address] [id number] [place] [address] Sep, [facility] [place] [facility] [address] [id number] [place] [address] Sep, [facility] [place] [facility] [address] [id number] [place] [address] Aug, [facility] [place] [facility] [address] [id number] [place] [address] Aug, [facility] [place] [facility] [address] [id number] [place] [address] Aug, [facility] [place] [facility] [address] [id number] [place] [address] Aug, [facility] [place] [facility] [address] [id number] [place] [address] Aug, [facility] [place] [facility] [address] [id number] [place] [address] Aug, [facility] [place] [facility] [address] [id number] [place] [address] July, [facility] [place] [facility] [address] [id number] [place] [address] July, [facility] [address] [id number] [place] [address] Jun, [facility] [place] [facility] [address] [id number] [place] [address] Jun, [facility] [address] [id number] [place] [address] Jun, [facility] [address] [id number] [place] [address] Jun, [facility] [address] [id number] [place] [address] Jun, [facility] [address] [id number] [place] [address] Jun, [facility] [address] [id number] [place] [address] Jun, [facility] [address] [id number] [place] [address] Jun, [facility] [address] [id number] [place] [address] May, [facility] [address] [id number] [place] [address] May, [facility] [place] [facility] [address] [id number] [place] [address] May, [facility] [place] [facility] [address] [id number] [place] [address] May, [facility] [place] [facility] [address] [id number] [place] [address] May, [facility] [place] [facility] [address] [id number] [place] [address] May, [facility] [place] [facility] [address] [id number] [place] [address] May, [facility] [address] [id number] [place] [address] May, [facility] [place] [facility] [address] [id number] [place] [address] May, [facility] [place] [facility] [address] [id number] [place] [address] Apr, [facility] [place] [facility] [address] [id number] [place] [address] Apr, [facility] [place] [facility] [address] [id number] [place] [address] Mar, [facility] [place] [facility] [address] [id number] [place] [address] Mar, [facility] [place] [facility] [address] [id number] [place] [address] Feb, [facility] [place] [facility] [address] [id number] [place] [address] Feb, [facility] [place] [facility] [address] [id number] [place] [address] Nov, [facility] [place] [facility] [address] [id number] [place] [address] Nov, [facility] [place] [facility] [address] [id number] [place] [address] Oct, [facility] [place] [facility] [address] [id number], [place] [address] Oct, [facility] [place] [facility] [address] [id number] [place] [address] Oct, [facility] [place] [facility] [address] [id number] [place] [address] Oct, [facility] [place] [facility] [address] [id number] [place] [address] Oct, [facility] [place] [facility] [address] [id number] [place] [address] 23 Sep, 2012 [facility] [address] [id number] [place] [address] Sep, [facility] [place] [facility] [address] [id number] [place] [address] Sep, [facility] [address] [id number] [place] [address] Sep, [facility] [place] [facility] [address] [id number] [place] [address] Aug, [facility] [address] [id number] [place] [address] Aug, [facility] [place] [facility] [address] [id number] [place] [address] Aug, [facility] [address] [id number] [place] [address] Aug, [facility] [address] [id number] [place] [address] Jun, [facility] [place] [facility] [address] [id number] [place] [address] 18 Jun, 2012 [facility] [place] [facility] [address] [id number] [place] [address] Jun, [facility] [place] [facility] [address] [id number] [place] [address] Jun, [facility] [place] [facility] [address] [id number] [place] [address] 21 May, 2012 [facility] [place] [facility] [address] [id number] [place] [address] 18 May, 2012 [facility] [place] [facility] [address] [id number] [place] [address] 18 May, 2012 [facility] [place] [facility] [address] [id number] [place] [address] 13 May, 2012 [facility] [place] [facility] [address] [id number] [place] [address] May, [facility] [place] [facility] [address] [id number] [place] [address] 04 May, 2012 [facility] [place] [facility] [address] [id number] [place] [address] 21 Apr, 2012 [facility] [place] [facility] [address] [id number] [place] [address] 20 Apr, 2012 [facility] [place] [facility] [address] [id number] [place] [address] Apr, [facility] [place] [facility] [address] [id number] [place] [address] Apr, [facility] [address] [id number] [place] [address] Apr, [facility] [address] [id number] [place] [address] Feb, [facility] [place] [facility] [address] [id number] [place] [address] Feb, [facility] [place] [facility] [address] [id number] [place] [address] Feb, [facility] [place] [facility] [address] [facility] [id number] [place] [address] Feb, [facility] [place] [facility] [address] [id number] [address] Feb, [facility] [place] [facility] [address] [id number] [place] [address] Feb, [facility] [place] [facility] [address] [id number] [place] [address] Feb, [facility] [place] [facility] [address] [id number] [place] [address] Feb, [facility] [place] [facility] [address] [id number] [place] [address] 14 Feb, 2012 [facility] [address] [id number] [place] [address] 14 Feb, 2012 [facility] [place] [facility] [address] [id number] [place] [address] 13 Feb, 2012 [facility] [place] [facility] [address] [id number] [place] [address] 13 Feb, 2012 [facility] [place] [facility] [address] [id number] [place] [address] 12 Feb, 2012 [facility] [place] [facility] [address] [id number] [place] [address] 12 Feb, 2012 [facility] [place] [facility] [address] [id number] [place] [address] 12 Feb, 2012 [facility] [address] [id number] [place] [address] 12 Feb, 2012 [facility] [place] [facility] [address] [id number] [place] [address] Feb, [facility] [place] [facility] [address] [id number] [place] [address] Feb, [facility] [place] [facility] [address] [id number] [place] [address] Feb, [facility] [place] [facility] [address] [id number] [place] [address] Feb, [facility] [place] [facility] [address] [id number] [place] [address] Feb, [facility] [place] [facility] [address] [id number] [place] [address] Feb, [facility] [place] [facility] [address] [id number] [place] [address] Feb, [facility] [place] [facility] [address] [id number] [place] [address] Feb, [facility] [place] [facility] [address] [id number] [place] [address] Feb, [facility] [place] [facility] [address] [id number] [place] [address] Feb, [facility] [place] [facility] [address] [id number] [place] [address] Jan, [facility] [place] [facility] [address] [id number] [place] [address] Jan, [facility] [place] [facility] [address] [id number] [place] [address] Dec, [facility] [place] [facility] [address] [id number] [place] [address] Dec, [facility] [place] [facility] [address] [id number] [place] [address] Dec, [facility] [place] [facility] [address] [id number] [place] [address] Dec, [facility] [place] [facility] [address] [id number] [place] [address] Nov, [facility] [place] [facility] [address] [id number] [place] [address] Nov, [facility] [place] [facility] [address] [id number] [place] [address] Nov, [facility] [place] [facility] [address] [id number] [place] [address] Nov, [facility] [place] [facility] [address] [id number] [place] [address] Oct, [facility] [place] [facility] [address] [id number] [place] [address] Oct, [facility] [place] [facility] [address] [id number] [place] [address] Sep, [facility] [place] [facility] [address] [id number] [place] [address] 17 Sep, 2011 [facility] [place] [facility] [address] [id number] [place] [address] Sep, [facility] [place] [facility] [address] [id number] [place] [address] Aug, [facility] [place] [facility] [address] [id number] [place] [address] Aug, [facility] [place] [facility] [address] [id number] [place] [address] Aug, [facility] [place] [facility] [address] [id number] [place] [address] Aug, [facility] [place] [facility] [address] [id number] [place] [address] Aug, [facility] [place] [facility] [address] [id number] [place] [address] July, [facility] [place] [facility] [address] [id number] [place] [address] July, [facility] [place] [facility] [address] [id number] [place] [address] July, [facility] [place] [facility] [address] [id number] [place] [address] July, [facility] [place] [facility] [address] [id number] [place] [address] July, [facility] [place] [facility] [address] [id number] [place] [address] Jun, [facility] [place] [facility] [address] [id number] [place] [address] May, [facility] [place] [facility] [address] [id number] [place] [address] 16 Apr, 2011 [facility] [place] [facility] [address] [id number] [place] [address] Apr, [facility] [place] [facility] [address] [id number] [place] [address] 13 Apr, 2011 [facility] [address] [id number] [place] [address] Mar, [facility] [address] [id number] [place] [address] 31 Mar, 2011 [facility] [address] [id number] [place] [address] 23 Mar, 2011 [facility] [address] [id number] [place] [address] Mar, [facility] [address] [id number] [place] [address] Mar, [facility] [address] [id number] [place] [address] 17 Mar, 2011 [facility] [address] [id number] [place] [address] 16 Mar, 2011 [facility] [address] [id number] [place] [address] Mar, [facility] [address] [id number] [place] [address] Feb, [facility] [address] [id number] [place] [address] Feb, [facility] [address] [id number] [place] [address] Feb, [facility] [address] [id number] [place] [address] Feb, [facility] [address] [id number] [place] [address] Feb, [facility] [address] [id number] [place] [address] Jan, [facility] [address] [id number] [place] [address] Jan, [facility] [address] [id number] [place] [address] Jan, [facility] [place] [facility] [address] [id number] [place] [address] Jan, [facility] [place] [facility] [address] [id number] [place] [address] 14 Dec, 2010 [facility] [place] [facility] [address] [id number] [place] [address] 14 Dec, 2010 [facility] [place] [facility] [address] [id number] [place] [address] Sep, [facility] [place] [facility] [address] [id number] [place] [address] July, [facility] [place] [facility] [address] [id number] [place] [address] Apr, [facility] [place] [facility] [address] [id number] [place] [address] Mar, [facility] [place] [facility] [address] [id number] [place] [address] Feb, [facility] [place] [facility] [address] [id number] [place] [address] Feb, [facility] [place] [facility] [address] [id number][place] [address] Feb, [facility] [place] [facility] [address] [id number][place] [address] Feb, [facility] [place] [facility] [address] [id number] [place] [address] 15 Feb, 2010 [facility] [place] [facility] [address] [id number] [place] [address] Feb, [facility] [place] [facility] [address] [id number], [place] [address] Feb, [facility] [place] [facility] [address] [id number][place] [address] Dec, [facility] [address] [facility] [id number], [place] [address] Jan, [facility] [address] [facility] [id number], [place] [address] Apr, IMMUNIZATIONS No Known Immunizations SOCIAL HISTORY Never Assessed REASON FOR VISIT Pt is here for dizziness that begabout one month ago. Pt is on insulin and did n ot know if it was her blood sugars or her blood pressure. Pt stated that she did not have the ability to check her blood sugars for the past two weeks. Pt stated that the dizziness is "like a imbalance" Pt stated that when she get up from a seating position she feel like she wants to "pass out'. hugo PLAN OF CARE Activity Details Follow Up next week with Mary Reason: VITAL SIGNS Height 64 in 2017-12-29 Weight 167 lbs 2017-12-29 Temperature 97.4 degrees Fahrenheit 2017-12-29 Heart Rate 70 bpm 2017-12-29 Respiratory Rate 16 2017-12-29 Oximetry 100 % 2017-12-29 BMI 28.66 kg/m2 2017-12-29 Blood pressure systolic 122 mmHg 2017-12-29 Blood pressure diastolic 70 mmHg 2017-12-29 MEDICATIONS Medication Instructions Dosage Frequency Start Date End Date Duration Status Latuda 80 MG TAKE ONE (1) TABLET BY MOUTH ONCE DAILY WITH FOOD 90 days Active Aspirin Adult Low Strength 81 MG Orally Once a day 1 tablet 24h Active Latuda 80 MG Orally Once a day 1 tablet with food 24h 30 day(s) Active Insulin Syringe-Needle U-40 1 subcutaneously 5 times per day as directed Mar, 30 days Not-Taking BD Pen Needle Ultrafine 29G X 12.7MM as directed May, Not-Taking Tylenol PM Extra Strength 500-25 MG Orally Once a day 1 tablet at bedtime as needed 24h Active MetFORMIN HCl ER 500 mg 1 tablet with meals BID x 7 days, then 2 tablets BID with meals Dec, 30 day(s) Active Levemir FlexTouch 100 UNIT/ML Subcutaneous 2 times a day in AM and PM Inject 20 units Dec, 30 days Active Flonase Active Multivitamin Adults - Active Fish Oil 1200 MG Orally Once a day 1 capsule 24h Active Loperamide HCl 2 MG Orally Four times a day 1 capsule as needed 6h Active Enalapril Maleate 20 MG Orally Once a day 1 tablet 24h Active Flonase 50 MCG/ACT Nasally Once a day 1 spray in each nostril 24h Aug, 30 day(s) Active Insulin Syringe 31G X 5/16 as directed May, 30 days Not-Taking Atorvastatin Calcium 40 MG Orally Once a day 1 tablet 24h Active NovoLog Flexpen 100 UNIT/ML Subcutaneous before lunch and supper Inject 20 units Dec, 30 days Active Carvedilol 12.5 MG Orally 2 times a day 1 tablet 12h Active Digoxin 125 MCG Orally Once a day 1 tablet 24h Active Plavix 75 MG Orally Once a day 1 tablet 24h Active RESULTS Name Result Date Reference Range GLUCOSE FINGERSTICK (IN HOUSE) 2017-12-29 GLU FINGERSTICK 161 PC + Lot # [id number] Exp date 2018-11-06 PROCEDURES Procedure Date Ordered Result Body Site GLUCOSE BLOOD TEST Dec 29, 2017 INSTRUCTIONS MEDICATIONS ADMINISTERED No Known Medications MEDICAL [...] Surgery Hospitalization History Hyperglycemia 2012 Hospitalization History [facility] 11/28/2015-12/04/2015 2016 Hospitalization History Schizophrenia 09/26/16 Hospitalization History AMS, UTI, hyponatremia-[facility] 10/21/16 Hospitalization History stent placed 02/02/17 Hospitalization History stent placed 02/2017 Hospitalization History [facility]- Syncope, Dehydration and Hypotension. 06/08/2017
--- OUTSIDE RECORDS SUMMARY | 2018-09-05 12:48 | XMS REPORT ---
Author Author WOOD CALDERON Organization [facility] Address [address] [place] [address] Care Team Providers Care Leave Coordinator Name Role Phone WOOD CALDERON Unavailable PROBLEMS Type Condition ICD9-CM Code CRS91-CU Code Onset Dates Condition Status SNOMED Code Problem CVA (cerebral vascular accident) I63.9 Active 009638658 Problem Bipolar affective disorder, current episode mixed, current episode severity unspecified F31.60 Active 891990541 Problem Psychosis, unspecified psychosis type F29 Active 04858210 Problem Diabetes E11.9 Active 95796486 Problem Pacemaker Z95.0 Active 087927774 Problem Diabetes 1.5, 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 [id number] [place] [address] Mar, [facility] [id number] [place] [address] Dec, [facility] [id number] [place] [address] Dec, [facility] [id number] [place] [address] Dec, Dizziness R42 and Diabetes 1.5, 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 [facility] [address] [address] Dec, [facility] [id number] [place] [address] Dec, [facility] [id number] [place] [address] Dec, Psychosis, unspecified psychosis type F29 and Bipolar affective disorder, current episode mixed, current episode severity unspecified F31.60 [place] [address] [address] Dec, 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 [id number] [place] [address] Oct, [place] [id number] [place] [address] Oct, [facility] [id number] [place] [address] Sep, [facility] [id number] [place] [address] Aug, Upper respiratory tract infection, unspecified type J06.9 ; Chronic idiopathic constipation K59.04 ; Fluid level behind tympanic membrane of both ears H65.93 [address] [facility] [id number] [place] [address] July, Diabetes E11.9 [facility] [id number] [place] [address] Jun, Dehydration E86.0 ; Diabetes E11.9 and Hyperglycemia R73.9 [place] [id number] [place] [address] Jun, [place] [id number] [place] [address] Jun, Vertigo R42 ; Syncope, unspecified syncope type R55 ; Diabetes E11.9 and Hyperglycemia R73.9 [place] [id number] [place] [address] May, Psychosis, unspecified psychosis type F29 and Bipolar affective disorder, current episode mixed, current episode severity unspecified F31.60 [place] [id number] [place] [address] May, [place] [id number] [place] [address] May, Diabetes E11.9 [facility] [id number] [place] [phone] Apr, Dental examination Z01.20 and Dental caries K02.9 [place] [id number] [place] [address] Apr, Dental examination Z01.20 and Dental abscess K04.7 [place] [id number] [place] [address] Mar, Psychosis, unspecified psychosis type F29 and Bipolar affective disorder, current episode mixed, current episode severity unspecified F31.60 [place] [address] [place] [address] Mar, [place] [id number] [place] [address] Feb, [place] [id number] [place] [address] Feb, Left wrist pain M25.532 [place] [id number] [place] [address] Jan, [facility] [id number] [place] [address] Jan, Psychosis, unspecified psychosis type F29 and Bipolar affective disorder, current episode mixed, current episode severity unspecified F31.60 [facility] [id number] [place] [address] Jan, Diabetes E11.9 [facility] [id number] [place] [address] Jan, Left wrist pain M25.532 [place] [id number] [place] [address] Dec, Psychosis, unspecified psychosis type F29 and Bipolar affective disorder, current episode mixed, current episode severity unspecified F31.60 [facility] [id number] [place] [address] Dec, Syncope, unspecified syncope type R55 ; Vertigo R42 ; Diabetes E11.9 ; Psychosis, unspecified psychosis type F29 and Fall, initial encounter W19.XXXA [place] [id number] [place] [address] Dec, Diabetes E11.9 ; Neck pain M54.[address] [facility] [id number] [place] [address] Nov, [facility] [id number] [place] [address] 08 Nov, 2016 [facility] [id number] [place] [address] Nov, [facility] [id number] [place] [address] 06 Nov, [address] [facility] [id number] [place] [address] 05 Nov, [address] [facility] [address] [place] [address] Oct, [facility] [address] [id number] [id number] Oct, [facility] [address] [facility] [id number] [address] Oct, [facility] [address] [address] Oct, Bipolar affective disorder, current episode mixed, current episode severity unspecified F31.60 [facility] [address] [id number] [id number] Sep, [facility] [address] [address] Sep, Bipolar affective disorder, current episode mixed, current episode severity unspecified F31.60 [facility] [address] [address] Sep, Acute maxillary sinusitis, recurrence not specified J01.00 [facility] [id number] [address] Sep, Diabetes E[address].9 [facility] [address], [place] [address] July, Diabetes E[address].9 [facility] [address] [address] July, Diabetes E11.9 [facility] [address], [place] [address] Jun, [facility] [address] [facility] [id number] [address] May, Bipolar affective disorder, current episode mixed, current episode severity unspecified F31.60 [facility] [address] [facility] [id number] [address] May, Acute non-recurrent maxillary sinusitis J01.00 [facility] [id number] [place] [address] 10 Apr, 2016 Psychosis, unspecified psychosis type F29 and Bipolar affective disorder, current episode mixed, current episode severity unspecified F31.60 [facility] [id number] [place] [address] 03 Apr, 2016 Dysuria R30.0 ; Other viral agents as the cause of diseases classified elsewhere B97.89 and Acute upper respiratory infection, unspecified J06.9 [place] [address] [address] Mar, Diabetes E11.9 ; Urine leukocytes R82.99 and Psychosis, unspecified psychosis type F29 [place] [id number] [place] [address] Mar, Diabetes E11.9 [place] [id number] [place] [address] Feb, [place] [id number] [place] [address] Jan, [facility] [id number] [place] [address] Dec, Psychosis, unspecified psychosis type F29 [facility] [id number] [place] [address] Dec, [facility] [id number] [place] [address] Dec, [facility] [id number] [place] [address] Dec, Psychosis, unspecified psychosis type F29 [facility] [id number] [place] [address] Nov, Schizoaffective disorder, unspecified type F25.9 [facility] [id number] [place] [address] Oct, [facility] [address] [place] [address] Oct, Conjunctivitis of right eye, unspecified conjunctivitis type H10.9 [facility] [id number] [place] [address] Aug, [facility] [address] [place] [id number] Jun, Encounter for dental examination Z01.20 [facility] [address] [address] Jun, Diabetes E11.9 and Bipolar affect, depressed F31.30 [facility] [address] [address] Jun, Other bipolar disorder F31.89 [facility] [id number] [place] [address] Jun, [facility] [address] [address] Apr, [facility] [id number] [place] [address] Dec, [facility] [id number] [place] [address] Dec, [facility] [id number] [place] [address] Sep, [facility] [id number] [place] [address] Jun, [facility] [id number] [place] [address] Jun, [facility] [id number] [place] [address] Mar, [facility] [id number] [place] [address] Mar, [facility] [id number] [place] [address] Nov, [facility] [place] [facility] [address] [id number] [place] [address] Nov, [facility] [place] [facility] [address] [id number] [place] [address] Sep, [facility] [place] [facility] [address] [id number] [place] [address] Sep, [facility] [place] [facility] [address] [id number] [place] [address] Sep, [facility] [place] [facility] [address] [id number] [place] [address] Sep, [facility] [place] [facility] [address] [id number] [place] [address] Sep, [facility] [place] [facility] [address] [id number] [place] [address] Aug, [facility] [place] [facility] [address] [id number] [place] [address] Aug, [facility] [place] [facility] [address] [id number] [place] [address] Aug, [facility] [place] [facility] [address] [id number] [place] [address] Aug, [facility] [place] [facility] [address] [id number], [place] [address] Aug, [facility] [place] [facility] [address] [id number], [place] [address] Aug, [facility] [place] [facility] [address] [id number] [place] [address] July, [facility] [place] [facility] [address] [id number] [place] [address] July, [facility] [place] [facility] [address] [id number] [place] [address] Jun, [facility] [place] [facility] [address] [id number] [place] [address] 24 Jun, 2013 [facility] [place] [facility] [address] [id number] [place] [address] Jun, [facility] [place] [facility] [address] [id number] [place] [address] Jun, [facility] [place] [facility] [address] [id number] [place] [address] Jun, [facility] [place] [facility] [address] [id number] [place] [address] Jun, [facility] [place] [facility] [address] [id number] [place] [address] Jun, [facility] [place] [facility] [address] [id number] [place] [address] Jun, [facility] [place] [facility] [address] [id number] [place] [address] May, [facility] [place] [facility] [address] [id number] [place] [address] May, [facility] [place] [facility] [address] [id number] [place] [address] May, [facility] [place] [facility] [address] [id number] [place] [address] May, [facility] [place] [facility] [address] [id number] [place] [address] May, [facility] [place] [facility] [address] [id number] [place] [address] May, [facility] [place] [facility] [address] [id number] [place] [address] May, [facility] [place] [facility] [address] [id number] [place] [address] May, [facility] [place] [facility] [address] [id number] [place] [address] May, [facility] [place] [facility] [address] [id number] [place] [address] Apr, [facility] [place] [facility] [address] [id number] [place] [address] Apr, [facility] [place] [facility] [address] [id number] [place] [address] Mar, [facility] [place] [facility] [address] [id number] [place] [address] Mar, [facility] [place] [facility] [address] [id number] [place] [address] Feb, [facility] [place] [facility] [address] [id number] [place] [address] Feb, [facility] [place] [facility] [address] [id number] [place] [address] Nov, [facility] [place] [facility] [address] [id number] [place] [address] Nov, [facility] [place] [facility] [address] [id number] [place] [address] Oct, [facility] [place] [facility] [address] [id number] [place] [address] Oct, [facility] [place] [facility] [address] [id number] [place] [address] Oct, [facility] [place] [facility] [address] [id number], [place] [address] Oct, [facility] [place] [facility] [address] [id number] [place] [address] Oct, [facility] [place] [facility] [address] [id number] [place] [address] Sep, [facility] [place] [facility] [address] [id number], [place] [address] Sep, [facility] [place] [facility] [address] [id number] [place] [address] 10 Sep, 2012 [facility] [address] [id number] [place] [address] 02 Sep, 2012 [facility] [place] [facility] [address] [id number] [place] [address] Aug, [facility] [address] [id number] [place] [address] 17 Aug, 2012 [facility] [place] [facility] [address] [id number] [place] [address] 10 Aug, 2012 [facility] [address] [id number] [place] [address] Aug, [facility] [address] [id number] [place] [address] Jun, [facility] [address] [facility] [id number] [place] [address] Jun, [facility] [address] [id number] [place] [address] Jun, [facility] [address] [id number] [place] [address] Jun, [facility] [address] [facility] [id number] [place] [address] May, [facility] [address] [id number] [place] [address] 18 May, 2012 [facility] [place] [facility] [address] [id number] [place] [address] 18 May, 2012 [facility] [place] [facility] [address] [id number] [place] [address] 13 May, 2012 [facility] [place] [facility] [address] [id number] [place] [address] 11 May, 2012 [facility] [place] [facility] [address] [facility] [id number] [place] [address] 04 May, 2012 [facility] [place] [facility] [address] [id number] [place] [address] 21 Apr, 2012 [facility] [address] [id number] [place] [address] 20 Apr, 2012 [facility] [place] [facility] [address] [id number] [place] [address] 19 Apr, 2012 [facility] [address] [id number] [place] [address] 19 Apr, 2012 [facility] [address] [id number] [place] [address] 19 Apr, 2012 [facility] [address] [id number] [place] [address] 20 Feb, 2012 [facility] [address] [id number] [place] [address] 20 Feb, 2012 [facility] [address] [id number] [place] [address] 19 Feb, 2012 [facility] [address] [id number] [place] [address] 19 Feb, 2012 [facility] [address] [id number] [place] [address] 19 Feb, 2012 [facility] [address] [id number] [place] [address] 19 Feb, 2012 [facility] [address] [id number] [place] [address] 19 Feb, 2012 [facility] [place] [facility] [address] [id number] [place] [address] 19 Feb, 2012 [facility] [place] [facility] [address] [id number] [place] [address] 14 Feb, 2012 [facility] [place] [facility] [address] [id number] [place] [address] 14 Feb, 2012 [facility] [place] [facility] [address] [id number] [place] [address] Feb, [facility] [place] [facility] [address] [id number] [place] [address] Feb, [facility] [place] [facility] [address] [id number] [place] [address] Feb, [facility] [place] [facility] [address] [id number] [place] [address] Feb, [facility] [place] [facility] [address] [id number] [place] [address] Feb, [facility] [place] [facility] [address] [id number] [place] [address] Feb, [facility] [place] [facility] [address] [id number] [place] [address] Feb, [facility] [place] [facility] [address] [id number] [place] [address] Feb, [facility] [place] [facility] [address] [id number] [place] [address] Feb, [facility] [place] [facility] [address] [id number] [place] [address] Feb, [facility] [place] [facility] [address] [id number] [place] [address] Feb, [facility] [place] [facility] [address] [id number] [place] [address] Feb, [facility] [place] [facility] [address] [id number] [place] [address] Feb, [facility] [place] [facility] [address] [id number] [place] [address] Feb, [facility] [place] [facility] [address] [id number] [place] [address] Feb, [facility] [place] [facility] [address] [id number] [place] [address] Feb, [facility] [place] [facility] [address] [id number] [place] [address] Jan, [facility] [place] [facility] [address] [id number] [place] [address] Jan, [facility] [place] [facility] [address] [id number] [place] [address] Dec, [facility] [place] [facility] [address] [id number] [place] [address] Dec, [facility] [place] [facility] [address] [id number] [place] [address] Dec, [facility] [place] [facility] [address] [id number] [place] [address] Dec, [facility] [place] [facility] [address] [id number] [place] [address] Nov, [facility] [place] [facility] [address] [id number] [place] [address] Nov, [facility] [place] [facility] [address] [id number] [place] [address] Nov, [facility] [place] [facility] [address] [id number] [place] [address] Nov, [facility] [place] [facility] [address] [id number] [place] [address] Oct, [facility] [place] [facility] [address] [id number] [place] [address] Oct, [facility] [place] [facility] [address] [id number] [place] [address] Sep, [facility] [place] [facility] [address] [id number] [place] [address] Sep, [facility] [place] [facility] [address] [id number] [place] [address] Sep, [facility] [place] [facility] [address] [id number] [place] [address] Aug, [facility] [address] [id number] [place] [address] Aug, [facility] [place] [facility] [address] [id number] [place] [address] Aug, [facility] [place] [facility] [address] [id number] [place] [address] Aug, [facility] [place] [facility] [address] [id number] [place] [address] Aug, [facility] [place] [facility] [address] [id number] [place] [address] July, [facility] [place] [facility] [address] [id number] [place] [address] July, [facility] [place] [facility] [address] [id number] [place] [address] July, [facility] [place] [facility] [address] [id number] [place] [address] July, [facility] [place] [facility] [address] [id number] [place] [address] July, [facility] [place] [facility] [address] [id number] [place] [address] Jun, [facility] [place] [facility] [address] [id number] [place] [address] May, [facility] [place] [facility] [address] [id number] [place] [address] 16 Apr, 2011 [facility] [place] [facility] [address] [id number] [place] [address] Apr, [facility] [place] [facility] [address] [id number] [place] [address] Apr, [facility] [place] [facility] [address] [id number] [place] [address] Mar, [facility] [place] [facility] [address] [id number] [place] [address] 31 Mar, 2011 [facility] [address] [id number] [place] [address] Mar, [facility] [place] [facility] [address] [id number] [place] [address] Mar, [facility] [address] [id number] [place] [address] Mar, [facility] [place] [facility] [address] [id number] [place] [address] 17 Mar, 2011 [facility] [address] [id number] [place] [address] 16 Mar, 2011 [facility] [place] [facility] [address] [id number] [place] [address] Mar, [facility] [address] [id number] [place] [address] Feb, [facility] [address] [id number] [place] [address] Feb, [facility] [address] [id number] [place] [address] Feb, [facility] [place] [facility] [address] [id number] [place] [address] Feb, [facility] [address] [id number] [place] [address] Feb, [facility] [place] [facility] [address] [id number] [place] [address] Jan, [facility] [place] [facility] [address] [id number] [place] [address] Jan, [facility] [place] [facility] [address] [id number] [place] [address] Jan, [facility] [place] [facility] [address] [id number] [place] [address] Jan, [facility] [place] [facility] [address] [id number] [place] [address] 14 Dec, 2010 [facility] [address] [id number] [place] [address] 14 Dec, 2010 [facility] [place] [facility] [address] [id number] [place] [address] 13 Sep, 2010 [facility] [place] [facility] [address] [id number] [place] [address] July, [facility] [address] [id number] [place] [address] Apr, [facility] [place] [facility] [address] [id number] [place] [address] Mar, [facility] [address] [id number] [place] [address] Feb, [facility] [address] [id number] [place] [address] Feb, [facility] [place] [facility] [address] [id number] [place] [address] Feb, [facility] [place] [facility] [address] [id number] [place] [address] Feb, [facility] [place] [facility] [address] [id number] [place] [address] 15 Feb, 2010 [facility] [place] [facility] [address] [id number] [place] [address] Feb, [facility] [place] [facility] [address] [id number] [place] [address] Feb, [facility] [place] [facility] [address] [id number] [place] [address] Dec, [facility] [place] [facility] [address] [id number] [place] [address] Jan, [facility] [place] [facility] [address] [id number] [place] [address] Apr, IMMUNIZATIONS No Known Immunizations SOCIAL HISTORY Never Assessed REASON FOR VISIT DM mgnt PLAN OF CARE VITAL SIGNS MEDICATIONS Medication Instructions Dosage Frequency Start Date End Date Duration Status NovoLog Flexpen 100 UNIT/ML Subcutaneous before meals 15 units Dec, Active Blood Glucose Test Strip - Dec, Active Blood Glucose Monitor System w/Device as directed Dec, Active RESULTS No Results PROCEDURES No Known [...] Hospitalization History Hyperglycemia 2012 Hospitalization History [facility] 11/28/2015-12/04/2015 2016 Hospitalization History Schizophrenia 09/26/16 Hospitalization History AMS, UTI, hyponatremia-[facility] 10/21/16 Hospitalization History stent placed 02/02/17 Hospitalization History stent placed 02/2017 Hospitalization History [facility]- Syncope, Dehydration and Hypotension. 06/08/2017
--- OUTSIDE RECORDS SUMMARY | 2018-09-05 12:49 | XMS REPORT ---
Author Author WOOD CALDERON Organization [facility] [place] Address [address] [place] [address] Care Team Providers Care Bowling Alley Attendant Name Role Phone WOOD CALDERON Unavailable PROBLEMS Type Condition ICD9-CM Code AQS67-BP Code Onset Dates Condition Status SNOMED Code Problem CVA (cerebral vascular accident) I63.9 Active 583267994 Problem Bipolar affective disorder, current episode mixed, current episode severity unspecified F31.60 Active 730341610 Problem Psychosis, unspecified psychosis type F29 Active 79612822 Problem Diabetes E11.9 Active 84100620 Problem Pacemaker Z95.0 Active 889891835 Problem Diabetes 1.5, 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 325398484 Problem Age-related incipient cataract of both eyes H25.093 Active 140042815 Problem Chronic idiopathic constipation K59.04 Active 22839557 Problem Coronary artery disease involving hydaburg coronary artery 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.10 Active 7337562520324 Problem 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 Active 273585112 Problem 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.4 Active 973570731 ALLERGIES No Information ENCOUNTERS Encounter Location Date Diagnosis [facility] [place] [id number] [place] [address] Mar, [facility] [place] [id number] [place] [address] Dec, [facility] [place] [id number] [place] [address] Dec, [facility] [id number] [place] [address] Dec, Dizziness R42 and Diabetes 1.5, 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 [facility] [place] [address] [address] Dec, [facility] [place] [id number] [place] [address] Dec, [facility] [place] [id number] [place] [address] Dec, Psychosis, unspecified psychosis type F29 and Bipolar affective disorder, current episode mixed, current episode severity unspecified F31.60 [place] [address] [address] Dec, [facility] [place] [id number] [place] [address] Dec, [place] [id number] [place] [address] Dec, 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 ; [facility]DC current use of insulin Z79.4 and Hyperglycemia R73.9 [place] [id number] [place] [address] Oct, [facility] [place] [id number] [place] [address] Oct, [place] [id number] [place] [address] Oct, [facility] [place] [id number] [place] [address] Sep, [facility] [id number] [place] [address] Aug, Upper respiratory tract infection, unspecified type J06.9 ; Chronic idiopathic constipation K59.04 ; Fluid level behind tympanic membrane of both ears H65.93 and Abdominal pain R10.9 [facility] [place] [id number] [place] [address] July, Diabetes E11.9 [facility] [place] [id number] [place] [address] Jun, Dehydration E86.0 ; Diabetes E11.9 and Hyperglycemia R73.9 [place] [id number] [place] [address] Jun, [place] [id number] [place] [id number] Jun, Vertigo R42 ; Syncope, unspecified syncope type R55 ; Diabetes E11.9 and Hyperglycemia R73.9 [place] [id number] [place] [address] May, Psychosis, unspecified psychosis type F29 and Bipolar affective disorder, current episode mixed, current episode severity unspecified F31.60 [place] [id number] [place] [address] May, [place] [id number] [place] [address] May, Diabetes E11.9 [facility] [id number] [place] [id number] Apr, Dental examination Z01.20 and Dental caries K02.9 [place] [id number] [place] [address] Apr, Dental examination Z01.20 and Dental abscess K04.7 [place] [id number] [place] [address] Mar, Psychosis, unspecified psychosis type F29 and Bipolar affective disorder, current episode mixed, current episode severity unspecified F31.60 [place] [id number] [place] [address] Mar, [place] [id number] [place] [address] Feb, [place] [id number] [place] [address] Feb, Left wrist pain M25.532 [place] [id number] [place] [address] Jan, [facility] [place] [id number] [place] [address] Jan, Psychosis, unspecified psychosis type F29 and Bipolar affective disorder, current episode mixed, current episode severity unspecified F31.60 [facility] [place] [id number] [place] [address] Jan, Diabetes E11.9 [facility] [id number] [place] [address] Jan, Left wrist pain M25.532 [place] [id number] [place] [address] Dec, Psychosis, unspecified psychosis type F29 and Bipolar affective disorder, current episode mixed, current episode severity unspecified F31.60 [facility] [place] [id number] [place] [address] Dec, Syncope, unspecified syncope type R55 ; Vertigo R42 ; Diabetes E11.9 ; Psychosis, unspecified psychosis type F29 and Fall, initial encounter W19.XXXA [place] [id number] [place] [address] Dec, Diabetes E11.9 ; Neck pain M54.2 and Vertigo R42 [facility] [place] [id number] [place] [address] Nov, [facility] [id number] [place] [address] 08 Nov, 2016 [facility] [place] [id number] [place] [address] Nov, [facility] [place] [id number] [place] [address] 06 Nov, 2016 Diabetes E11.9 [facility] [place] [id number] [place] [address] 05 Nov, 2016 Diabetes E11.9 [facility] [place] [address] [place] [address] Oct, [facility] [address] [id number] [id number] Oct, [facility] [place] [address] [facility] [id number] [address] Oct, [facility] [place] [address] [place] [address] Oct, Bipolar affective disorder, current episode mixed, current episode severity unspecified F31.60 [facility] [address] [id number] [id number] Sep, [facility] [place] [address] [place] [address] Sep, Bipolar affective disorder, current episode mixed, current episode severity unspecified F31.60 [facility] [address] [place] [address] Sep, Acute maxillary sinusitis, recurrence not specified J01.00 [facility] [place] [id number] [address] Sep, Diabetes E11.9 [facility] [place] [address] [place] [address] July, Diabetes E11.9 [facility] [place] [address] [address] July, Diabetes E11.9 [facility] [place] [address] [place] [address] Jun, [facility] [place] [address] [facility] [id number] [place] [address] May, Bipolar affective disorder, current episode mixed, current episode severity unspecified F31.60 [facility] [address] [facility] [id number] [place] [address] May, Acute non-recurrent maxillary sinusitis J01.00 [facility] [place] [id number] [place] [address] 10 Apr, 2016 Psychosis, unspecified psychosis type F29 and Bipolar affective disorder, current episode mixed, current episode severity unspecified F31.60 [facility] [id number] [place] [address] 03 Apr, 2016 Dysuria R30.0 ; Other viral agents as the cause of diseases classified elsewhere B97.89 and Acute upper respiratory infection, unspecified J06.9 [place] [address] [address] Mar, Diabetes E11.9 ; Urine leukocytes R82.99 and Psychosis, unspecified psychosis type F29 [place] [id number] [place] [address] Mar, Diabetes E11.9 [place] [id number] [place] [address] Feb, [place] [id number] [place] [address] Jan, [facility] [place] [id number] [place] [address] Dec, Psychosis, unspecified psychosis type F29 [facility] [place] [id number] [place] [address] Dec, [facility] [id number] [place] [address] Dec, [facility] [place] [id number] [place] [address] Dec, Psychosis, unspecified psychosis type F29 [facility] [place] [id number] [place] [address] Nov, Schizoaffective disorder, unspecified type F25.9 [facility] [place] [id number] [place] [address] Oct, [facility] [address] [place] [address] Oct, Conjunctivitis of right eye, unspecified conjunctivitis type H10.9 [facility] [place] [id number] [place] [address] Aug, [facility] [address] [place] [id number] Jun, Encounter for dental examination Z01.20 [facility] [place] [address] [address] Jun, Diabetes E11.9 and Bipolar affect, depressed F31.30 [facility] [place] [address] [address] Jun, Other bipolar disorder F31.89 [facility] [place] [id number] [place] [address] Jun, [facility] [place] [address] [address] Apr, [facility] [place] [id number] [place] [address] Dec, [facility] [place] [id number] [place] [address] Dec, [facility] [place] [id number] [place] [address] Sep, [facility] [place] [id number] [place] [address] Jun, [facility] [place] [id number] [place] [address] Jun, [facility] [place] [id number] [place] [address] Mar, [facility] [place] [id number] [place] [address] Mar, [facility] [place] [id number] [place] [address] Nov, [facility] [place] [facility] [address] [id number] [place] [address] Nov, [facility] [place] [facility] [address] [id number] [place] [address] Sep, [facility] [place] [facility] [address] [id number] [place] [address] Sep, [facility] [place] [facility] [address] [id number] [place] [address] Sep, [facility] [place] [facility] [address] [id number] [place] [address] Sep, [facility] [place] [facility] [address] [id number] [place] [address] Sep, [facility] [place] [facility] [address] [id number] [place] [address] Aug, [facility] [place] [facility] [address] [id number] [place] [address] Aug, [facility] [place] [facility] [address] [id number] [place] [address] Aug, [facility] [place] [facility] [address] [id number] [place] [address] Aug, [facility] [place] [facility] [address] [id number] [place] [address] Aug, [facility] [place] [facility] [address] [id number] [place] [address] Aug, [facility] [place] [facility] [address] [id number] [place] [address] July, [facility] [place] [facility] [address] [id number] [place] [address] July, [facility] [place] [facility] [address] [id number] [place] [address] Jun, [facility] [place] [facility] [address] [id number] [place] [address] 24 Jun, 2013 [facility] [place] [facility] [address] [id number] [place] [address] Jun, [facility] [place] [facility] [address] [id number] [place] [address] Jun, [facility] [place] [facility] [address] [id number] [place] [address] Jun, [facility] [place] [facility] [address] [id number] [place] [address] Jun, [facility] [place] [facility] [address] [id number] [place] [address] Jun, [facility] [place] [facility] [address] [id number] [place] [address] Jun, [facility] [place] [facility] [address] [id number] [place] [address] May, [facility] [place] [facility] [address] [id number] [place] [address] May, [facility] [place] [facility] [address] [id number] [place] [address] May, [facility] [place] [facility] [address] [id number] [place] [address] May, [facility] [place] [facility] [address] [id number] [place] [address] May, [facility] [place] [facility] [address] [id number] [place] [address] May, [facility] [place] [facility] [address] [id number] [place] [address] May, [facility] [place] [facility] [address] [id number] [place] [address] May, [facility] [place] [facility] [address] [id number] [place] [address] May, [facility] [place] [facility] [address] [id number] [place] [address] Apr, [facility] [place] [facility] [address] [id number] [place] [address] Apr, [facility] [place] [facility] [address] [id number] [place] [address] Mar, [facility] [place] [facility] [address] [id number] [place] [address] Mar, [facility] [place] [facility] [address] [id number] [place] [address] Feb, [facility] [place] [facility] [address] [id number] [place] [address] Feb, [facility] [place] [facility] [address] [id number] [place] [address] Nov, [facility] [place] [facility] [address] [id number] [place] [address] Nov, [facility] [place] [facility] [address] [id number] [place] [address] Oct, [facility] [place] [facility] [address] [id number] [place] [address] Oct, [facility] [place] [facility] [address] [id number] [place] [address] Oct, [facility] [place] [facility] [address] [id number] [place] [address] Oct, [facility] [place] [facility] [address] [id number] [place] [address] Oct, [facility] [place] [facility] [address] [id number] [place] [address] Sep, [facility] [place] [facility] [address] [id number] [place] [address] Sep, [facility] [place] [facility] [address] [id number] [place] [address] 10 Sep, 2012 [facility] [address] [id number] [place] [address] 02 Sep, 2012 [facility] [place] [facility] [address] [id number] [place] [address] Aug, [facility] [address] [id number] [place] [address] 17 Aug, 2012 [facility] [place] [facility] [address] [id number] [place] [address] 10 Aug, 2012 [facility] [address] [id number] [place] [address] Aug, [facility] [address] [id number] [place] [address] Jun, [facility] [address] [facility] [id number] [place] [address] Jun, [facility] [address] [id number] [place] [address] Jun, [facility] [address] [id number] [place] [address] Jun, [facility] [address] [facility] [id number] [place] [address] May, [facility] [address] [id number] [place] [address] 18 May, 2012 [facility] [place] [facility] [address] [id number] [place] [address] 18 May, 2012 [facility] [place] [facility] [address] [id number] [place] [address] 13 May, 2012 [facility] [place] [facility] [address] [id number] [place] [address] 11 May, 2012 [facility] [place] [facility] [address] [facility] [id number] [place] [address] 04 May, 2012 [facility] [place] [facility] [address] [id number] [place] [address] 21 Apr, 2012 [facility] [address] [id number] [place] [address] 20 Apr, 2012 [facility] [place] [facility] [address] [id number] [place] [address] 19 Apr, 2012 [facility] [address] [id number] [place] [address] 19 Apr, 2012 [facility] [address] [id number] [place] [address] 19 Apr, 2012 [facility] [address] [id number] [place] [address] 20 Feb, 2012 [facility] [address] [id number] [place] [address] 20 Feb, 2012 [facility] [address] [id number] [place] [address] 19 Feb, 2012 [facility] [address] [id number] [place] [address] 19 Feb, 2012 [facility] [address] [id number] [place] [address] 19 Feb, 2012 [facility] [address] [id number] [place] [address] 19 Feb, 2012 [facility] [address] [id number] [place] [address] 19 Feb, 2012 [facility] [place] [facility] [address] [id number] [place] [address] 19 Feb, 2012 [facility] [place] [facility] [address] [id number] [place] [address] 14 Feb, 2012 [facility] [place] [facility] [address] [id number] [place] [address] 14 Feb, 2012 [facility] [place] [facility] [address] [id number] [place] [address] Feb, [facility] [place] [facility] [address] [id number] [place] [address] Feb, [facility] [place] [facility] [address] [id number] [place] [address] Feb, [facility] [place] [facility] [address] [id number] [place] [address] Feb, [facility] [place] [facility] [address] [id number] [place] [address] Feb, [facility] [place] [facility] [address] [id number] [place] [address] Feb, [facility] [place] [facility] [address] [id number] [place] [address] Feb, [facility] [place] [facility] [address] [id number] [place] [address] Feb, [facility] [place] [facility] [address] [id number] [place] [address] Feb, [facility] [place] [facility] [address] [id number] [place] [address] Feb, [facility] [place] [facility] [address] [id number] [place] [address] Feb, [facility] [place] [facility] [address] [id number] [place] [address] Feb, [facility] [place] [facility] [address] [id number] [place] [address] Feb, [facility] [place] [facility] [address] [id number] [place] [address] Feb, [facility] [place] [facility] [address] [id number] [place] [address] Feb, [facility] [place] [facility] [address] [id number] [place] [address] Feb, [facility] [place] [facility] [address] [id number] [place] [address] Jan, [facility] [place] [facility] [address] [id number] [place] [address] Jan, [facility] [place] [facility] [address] [id number] [place] [address] Dec, [facility] [place] [facility] [address] [id number] [place] [address] Dec, [facility] [place] [facility] [address] [id number] [place] [address] Dec, [facility] [place] [facility] [address] [id number] [place] [address] Dec, [facility] [place] [facility] [address] [id number] [place] [address] Nov, [facility] [place] [facility] [address] [id number] [place] [address] Nov, [facility] [place] [facility] [address] [id number] [place] [address] Nov, [facility] [place] [facility] [address] [id number] [place] [address] Nov, [facility] [place] [facility] [address] [id number] [place] [address] Oct, [facility] [place] [facility] [address] [id number] [place] [address] Oct, [facility] [place] [facility] [address] [id number] [place] [address] Sep, [facility] [place] [facility] [address] [id number] [place] [address] Sep, [facility] [place] [facility] [address] [id number] [place] [address] Sep, [facility] [place] [facility] [address] [id number] [place] [address] Aug, [facility] [address] [id number] [place] [address] Aug, [facility] [place] [facility] [address] [id number] [place] [address] Aug, [facility] [place] [facility] [address] [id number] [place] [address] Aug, [facility] [place] [facility] [address] [id number] [place] [address] Aug, [facility] [place] [facility] [address] [id number] [place] [address] July, [facility] [place] [facility] [address] [id number] [place] [address] July, [facility] [place] [facility] [address] [id number] [place] [address] July, [facility] [place] [facility] [address] [id number] [place] [address] July, [facility] [place] [facility] [address] [id number] [place] [address] July, [facility] [place] [facility] [address] [id number] [place] [address] Jun, [facility] [place] [facility] [address] [id number] [place] [address] May, [facility] [place] [facility] [address] [id number] [place] [address] 16 Apr, 2011 [facility] [place] [facility] [address] [id number] [place] [address] Apr, [facility] [place] [facility] [address] [id number] [place] [address] Apr, [facility] [place] [facility] [address] [id number] [place] [address] Mar, [facility] [place] [facility] [address] [id number] [place] [address] 31 Mar, 2011 [facility] [address] [id number] [place] [address] Mar, [facility] [place] [facility] [address] [id number] [place] [address] Mar, [facility] [address] [id number] [place] [address] Mar, [facility] [place] [facility] [address] [id number] [place] [address] 17 Mar, 2011 [facility] [address] [id number] [place] [address] 16 Mar, 2011 [facility] [place] [facility] [address] [id number] [place] [address] Mar, [facility] [address] [id number] [place] [address] Feb, [facility] [address] [id number] [place] [address] Feb, [facility] [address] [id number] [place] [address] Feb, [facility] [place] [facility] [address] [id number] [place] [address] Feb, [facility] [address] [id number] [place] [address] Feb, [facility] [place] [facility] [address] [id number] [place] [address] Jan, [facility] [place] [facility] [address] [id number] [place] [address] Jan, [facility] [place] [facility] [address] [id number] [place] [address] Jan, [facility] [place] [facility] [address] [id number] [place] [address] Jan, [facility] [place] [facility] [address] [id number] [place] [address] 14 Dec, 2010 [facility] [address] [id number] [place] [address] 14 Dec, 2010 [facility] [place] [facility] [address] [id number] [place] [address] 13 Sep, 2010 [facility] [place] [facility] [address] [id number] [place] [address] July, [facility] [address] [id number] [place] [address] Apr, [facility] [place] [facility] [address] [id number] [place] [address] Mar, [facility] [address] [id number] [place] [address] Feb, [facility] [address] [id number] [place] [address] Feb, [facility] [place] [facility] [address] [id number] [place] [address] Feb, [facility] [place] [facility] [address] [id number] [place] [address] Feb, [facility] [place] [facility] [address] [id number] [place] [address] 15 Feb, 2010 [facility] [place] [facility] [address] [id number] [place] [address] Feb, [facility] [place] [facility] [address] [id number] [place] [address] Feb, [facility] [place] [facility] [address] [id number] [place] [address] Dec, [facility] [place] [facility] [address] [id number] [place] [address] Jan, [facility] [place] [facility] [address] [id number] [place] [address] 14 Apr, 2008 IMMUNIZATIONS No Known Immunizations SOCIAL HISTORY Never Assessed REASON FOR VISIT DM mgnt attempt PLAN OF CARE VITAL SIGNS MEDICATIONS Unknown Medications RESULTS No Results PROCEDURES No Known procedures INSTRUCTIONS MEDICATIONS ADMINISTERED No Known Medications MEDICAL (GENERAL) HISTORY Type Description Date Medical History HBP Medical History Heart Disease Medical History Stroke ' Medical History Cardiac Pacemakes Medical History Blood Thinners Medical History Arthitis Medical History Back Trouble Medical History Bipolar affect, depressed Medical History Bipolar affect, depressed Medical History Other bipolar disorder Surgical History Carotid Surgical History Bypass 1998 Surgical History cholecystectomy Surgical History colonscopy Surgical History Pacemaker Hospitalization History Stroke Hospitalization History Surgery Hospitalization History Hyperglycemia 2012 Hospitalization History [facility] 11/28/2015-12/04/20152015 Hospitalization History Schizophrenia 09/26/16 Hospitalization History AMS, UTI, hyponatremia-[facility] 10/21/16 Hospitalization History stent placed 02/02/17 Hospitalization History stent placed 02/2017 Hospitalization History [facility]- Syncope, Dehydration and Hypotension. 06/08/2017
--- OUTSIDE RECORDS SUMMARY | 2018-09-05 12:49 | XMS REPORT ---
Author Author WOOD CALDERON Organization [facility] Address [address] [place] [address] Care Team Providers Care Manager Internal Name Role Phone WOOD CALDERON Unavailable PROBLEMS Type Condition ICD9-CM Code IML49-CV Code Onset Dates Condition Status SNOMED Code Problem CVA (cerebral vascular accident) I63.9 Active 913586703 Problem Bipolar affective disorder, current episode mixed, current episode severity unspecified F31.60 Active 249597844 Problem Psychosis, unspecified psychosis type F29 Active 08743420 Problem Diabetes E11.9 Active 87454677 Problem Pacemaker Z95.0 Active 572157228 Problem Diabetes 1.5, 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 508436705 Problem Age-related incipient cataract of both eyes H25.093 Active 505712933 Problem Chronic idiopathic constipation K59.04 Active 67248666 Problem Coronary artery disease involving apache coronary artery of apache heart without angina pectoris I25.10 Active 0818166130154 Problem 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 Active 017431537 Problem 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 680764073 ALLERGIES No Information ENCOUNTERS Encounter Location Date Diagnosis [facility] [id number] [place] [address] Mar, [facility] [id number] [place] [address] Dec, [facility] [id number] [place] [address] Dec, Dizziness R42 and Diabetes 1.5, 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 [facility] [id number] [place] [address] Dec, [facility] [address] [address] Dec, [facility] [id number] [place] [address] Dec, Psychosis, unspecified psychosis type F29 and Bipolar affective disorder, current episode mixed, current episode severity unspecified F31.60 [facility] [id number] [place] [address] Dec, [facility] [address] [address] Dec, [facility] [id number] [place] [address] Dec, 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 ; 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 and Hyperglycemia R73.9 [place] [id number] [place] [address] Oct, [facility] [id number] [place] [address] Oct, [facility] [id number] [place] [address] Oct, [facility] [id number] [place] [address] Sep, [facility] [id number] [place] [address] Aug, Upper respiratory tract infection, unspecified type J06.9 ; Chronic idiopathic constipation K59.04 ; Fluid level behind tympanic membrane of both ears H65.93 and Abdominal pain R10.9 [facility] [id number] [place] [address] July, Diabetes E11.9 [facility] [id number] [place] [address] Jun, Dehydration E86.0 ; Diabetes E11.9 and Hyperglycemia R73.9 [facility] [id number] [place] [address] Jun, [facility] [id number] [place] [address] Jun, Vertigo R42 ; Syncope, unspecified syncope type R55 ; Diabetes E11.9 and Hyperglycemia R73.9 [facility] [id number] [place] [address] May, Psychosis, unspecified psychosis type F29 and Bipolar affective disorder, current episode mixed, current episode severity unspecified F31.60 [facility] [id number] [place] [address] May, [place] [address] [address] May, Diabetes E11.9 [facility] [id number] [place] [id number] Apr, Dental examination Z01.20 and Dental caries K02.9 [place] [id number] [place] [address] Apr, Dental examination Z01.20 and Dental abscess K04.7 [place] [id number] [place] [address] Mar, Psychosis, unspecified psychosis type F29 and Bipolar affective disorder, current episode mixed, current episode severity unspecified F31.60 [place] [id number] [place] [address] Mar, [place] [id number] [place] [address] Feb, [place] [id number] [place] [address] Feb, Left wrist pain M25.532 [place] [id number] [place] [address] Jan, [place] [id number] [place] [address] Jan, Psychosis, unspecified psychosis type F29 and Bipolar affective disorder, current episode mixed, current episode severity unspecified F31.60 [facility] [id number] [place] [address] Jan, Diabetes E11.9 [facility] [id number] [place] [address] Jan, Left wrist pain M25.532 [facility] [address] [address] Dec, Psychosis, unspecified psychosis type F29 and Bipolar affective disorder, current episode mixed, current episode severity unspecified F31.60 [place] [address] [address] Dec, Syncope, unspecified syncope type R55 ; Vertigo R42 ; Diabetes E11.9 ; Psychosis, unspecified psychosis type F29 and Fall, initial encounter W19.XXXA [facility] [address] [address] Dec, Diabetes E11.9 ; Neck pain M54.2 and Vertigo R42 [place] [id number] [place] [address] Nov, [facility] [id number] [place] [address] Nov, [facility] [id number] [place] [address] Nov, [facility] [id number] [place] [address] Nov, Diabetes E11.9 [facility] [id number] [place] [address] Nov, Diabetes E11.9 [place] [id number] [place] [address] Oct, [facility] [address] [place] [phone] Oct, [facility] [address] [address] Oct, [facility] [address] [address] Oct, Bipolar affective disorder, current episode mixed, current episode severity unspecified F31.60 [facility] [id number] [id number] Sep, [facility] [address] [place] [address] Sep, Bipolar affective disorder, current episode mixed, current episode severity unspecified F31.60 [facility] [address] [place] [address] Sep, Acute maxillary sinusitis, recurrence not specified J01.00 [facility] [address] [place] [address] Sep, Diabetes E11.9 [facility] [address] [place] [address] July, Diabetes E11.9 [facility] [address] [place] [address] July, Diabetes E11.9 [facility] [address], [place] [address] Jun, [facility] [address] [place] [address] May, Bipolar affective disorder, current episode mixed, current episode severity unspecified F31.60 [facility] [id number] [address] May, Acute non-recurrent maxillary sinusitis J01.00 [facility] [id number] [address] 10 Apr, 2016 Psychosis, unspecified psychosis type F29 and Bipolar affective disorder, current episode mixed, current episode severity unspecified F31.60 [facility] [id number] [place] [address] Apr, Dysuria R30.0 ; Other viral agents as the cause of diseases classified elsewhere B97.89 and Acute upper respiratory infection, unspecified J06.9 [place] [id number] [place] [address] Mar, Diabetes E11.9 ; Urine leukocytes R82.99 and Psychosis, unspecified psychosis type F29 [place] [id number] [place] [address] Mar, Diabetes E11.9 [place] [id number] [place] [address] Feb, [place] [id number] [place] [address] Jan, [facility] [id number] [place] [address] Dec, Psychosis, unspecified psychosis type F29 [place] [id number] [place] [address] Dec, [facility] [id number] [place] [address] Dec, [place] [id number] [place] [address] Dec, Psychosis, unspecified psychosis type F29 [facility] [id number] [place] [address] Nov, Schizoaffective disorder, unspecified type F25.9 [place] [id number] [place] [address] Oct, [facility] [id number] [place] [address] Oct, Conjunctivitis of right eye, unspecified conjunctivitis type H10.9 [facility] [address] [place] [address] Aug, [facility] [id number] [place] [id number] Jun, Encounter for dental examination Z01.20 [facility] [id number] [place] [address] Jun, Diabetes E11.9 and Bipolar affect, depressed F31.30 [facility] [id number] [place] [address] Jun, Other bipolar disorder F31.89 [facility] [address] [address] Jun, [facility] [id number] [place] [address] Apr, [facility] [id number] [place] [address] Dec, [facility] [id number] [place] [address] Dec, [facility] [id number] [place] [address] Sep, [facility] [id number] [place] [address] Jun, [facility] [id number] [place] [address] Jun, [facility] [id number] [place] [address] Mar, [facility] [id number] [place] [address] Mar, [facility] [address] [place] [address] Nov, [facility] [id number] [place] [address] Nov, [facility] [place] [facility] [address] [id number] [place] [address] Sep, [facility] [place] [facility] [address] [id number] [place] [address] Sep, [facility] [place] [facility] [address] [id number] [place] [address] Sep, [facility] [place] [facility] [address] [id number] [place] [address] Sep, [facility] [place] [facility] [address] [id number] [place] [address] Sep, [facility] [place] [facility] [address] [id number] [place] [address] Aug, [facility] [place] [facility] [address] [id number] [place] [address] Aug, [facility] [place] [facility] [address] [id number] [place] [address] Aug, [facility] [place] [facility] [address] [id number] [place] [address] Aug, [facility] [place] [facility] [address] [id number] [place] [address] Aug, [facility] [place] [facility] [address] [id number], [place] [address] Aug, [facility] [place] [facility] [address] [id number], [place] [address] July, [facility] [place] [facility] [address] [id number] [place] [address] July, [facility] [place] [facility] [address] [id number] [place] [address] Jun, [facility] [place] [facility] [address] [id number] [place] [address] Jun, [facility] [place] [facility] [address] [id number] [place] [address] Jun, [facility] [place] [facility] [address] [id number] [place] [address] Jun, [facility] [place] [facility] [address] [id number] [place] [address] Jun, [facility] [place] [facility] [address] [id number] [place] [address] Jun, [facility] [place] [facility] [address] [id number] [place] [address] Jun, [facility] [place] [facility] [address] [id number] [place] [address] Jun, [facility] [place] [facility] [address] [id number] [place] [address] May, [facility] [place] [facility] [address] [id number] [place] [address] May, [facility] [place] [facility] [address] [id number] [place] [address] May, [facility] [place] [facility] [address] [id number] [place] [address] May, [facility] [place] [facility] [address] [id number] [place] [address] May, [facility] [place] [facility] [address] [id number] [place] [address] May, [facility] [place] [facility] [address] [id number] [place] [address] May, [facility] [place] [facility] [address] [id number] [place] [address] May, [facility] [place] [facility] [address] [id number] [place] [address] May, [facility] [place] [facility] [address] [id number] [place] [address] Apr, [facility] [place] [facility] [address] [id number] [place] [address] Apr, [facility] [place] [facility] [address] [id number] [place] [address] Mar, [facility] [place] [facility] [address] [id number] [place] [address] Mar, [facility] [place] [facility] [address] [id number] [place] [address] Feb, [facility] [place] [facility] [address] [id number] [place] [address] Feb, [facility] [place] [facility] [address] [id number] [place] [address] Nov, [facility] [place] [facility] [address] [id number] [place] [address] Nov, [facility] [place] [facility] [address] [id number] [place] [address] Oct, [facility] [place] [facility] [address] [id number] [place] [address] Oct, [facility] [place] [facility] [address] [id number] [place] [address] Oct, [facility] [place] [facility] [address] [id number] [place] [address] Oct, [facility] [place] [facility] [address] [id number], [place] [address] Oct, [facility] [place] [facility] [address] [id number] [place] [address] Sep, [facility] [place] [facility] [address] [id number] [place] [address] Sep, [facility] [place] [facility] [address] [id number] [place] [address] Sep, [facility] [place] [facility] [address] [id number], [place] [address] 02 Sep, 2012 [facility] [address] [id number] [place] [address] Aug, [facility] [place] [facility] [address] [id number] [place] [address] 17 Aug, 2012 [facility] [address] [facility] [id number] [place] [address] 10 Aug, 2012 [facility] [address] [id number] [place] [address] 07 Aug, 2012 [facility] [address] [id number] [place] [address] 19 Jun, 2012 [facility] [address] [id number] [place] [address] 18 Jun, 2012 [facility] [address] [facility] [id number] [place] [address] Jun, [facility] [address] [facility] [id number] [place] [address] Jun, [facility] [address] [facility] [id number] [place] [address] May, [facility] [address] [facility] [id number] [place] [address] 18 May, 2012 [facility] [address] [id number], [place] [address] 18 May, 2012 [facility] [place] [facility] [address] [id number], [place] [address] 13 May, 2012 [facility] [place] [facility] [address] [id number] [place] [address] 11 May, 2012 [facility] [place] [facility] [address] [facility] [id number] [place] [address] 04 May, 2012 [facility] [place] [facility] [address] [facility] [id number] [place] [address] Apr, [facility] [place] [facility] [address] [id number] [place] [address] 20 Apr, 2012 [facility] [place] [facility] [address] [id number] [place] [address] 19 Apr, 2012 [facility] [place] [facility] [address] [id number] [place] [address] 19 Apr, 2012 [facility] [place] [facility] [address] [id number] [place] [address] 19 Apr, 2012 [facility] [address] [id number] [place] [address] 20 Feb, 2012 [facility] [address] [id number] [place] [address] 20 Feb, 2012 [facility] [address] [id number] [place] [address] 19 Feb, 2012 [facility] [address] [id number] [place] [address] 19 Feb, 2012 [facility] [address] [id number] [place] [address] 19 Feb, 2012 [facility] [address] [id number] [place] [address] 19 Feb, 2012 [facility] [place] [facility] [address] [id number] [place] [address] 19 Feb, 2012 [facility] [place] [facility] [address] [id number] [place] [address] 19 Feb, 2012 [facility] [place] [facility] [address] [id number] [place] [address] 14 Feb, 2012 [facility] [place] [facility] [address] [id number] [place] [address] 14 Feb, 2012 [facility] [place] [facility] [address] [id number] [place] [address] 13 Feb, 2012 [facility] [place] [facility] [address] [id number] [place] [address] Feb, [facility] [place] [facility] [address] [id number] [place] [address] Feb, [facility] [place] [facility] [address] [id number] [place] [address] Feb, [facility] [place] [facility] [address] [id number] [place] [address] Feb, [facility] [place] [facility] [address] [id number] [place] [address] Feb, [facility] [place] [facility] [address] [id number] [place] [address] Feb, [facility] [place] [facility] [address] [id number] [place] [address] Feb, [facility] [place] [facility] [address] [id number] [place] [address] Feb, [facility] [place] [facility] [address] [id number] [place] [address] Feb, [facility] [place] [facility] [address] [id number] [place] [address] Feb, [facility] [place] [facility] [address] [id number] [place] [address] Feb, [facility] [place] [facility] [address] [id number] [place] [address] Feb, [facility] [place] [facility] [address] [id number] [place] [address] Feb, [facility] [place] [facility] [address] [id number] [place] [address] Feb, [facility] [place] [facility] [address] [id number] [place] [address] Feb, [facility] [place] [facility] [address] [id number] [place] [address] Jan, [facility] [place] [facility] [address] [id number] [place] [address] Jan, [facility] [place] [facility] [address] [id number] [place] [address] Dec, [facility] [place] [facility] [address] [id number] [place] [address] Dec, [facility] [place] [facility] [address] [id number] [place] [address] Dec, [facility] [place] [facility] [address] [id number] [place] [address] Dec, [facility] [place] [facility] [address] [id number] [place] [address] Nov, [facility] [place] [facility] [address] [id number] [place] [address] Nov, [facility] [place] [facility] [address] [id number] [place] [address] Nov, [facility] [place] [facility] [address] [id number] [place] [address] Nov, [facility] [place] [facility] [address] [id number] [place] [address] Oct, [facility] [place] [facility] [address] [id number] [place] [address] Oct, [facility] [place] [facility] [address] [id number] [place] [address] Sep, [facility] [place] [facility] [address] [id number] [place] [address] Sep, [facility] [place] [facility] [address] [id number] [place] [address] Sep, [facility] [place] [facility] [address] [id number] [place] [address] Aug, [facility] [place] [facility] [address] [id number] [place] [address] Aug, [facility] [address] [id number] [place] [address] 14 Aug, 2011 [facility] [place] [facility] [address] [id number] [place] [address] Aug, [facility] [place] [facility] [address] [id number] [place] [address] Aug, [facility] [place] [facility] [address] [id number] [place] [address] July, [facility] [place] [facility] [address] [id number] [place] [address] July, [facility] [place] [facility] [address] [id number] [place] [address] July, [facility] [place] [facility] [address] [id number] [place] [address] July, [facility] [place] [facility] [address] [id number] [place] [address] July, [facility] [place] [facility] [address] [id number] [place] [address] Jun, [facility] [place] [facility] [address] [id number] [place] [address] May, [facility] [place] [facility] [address] [id number] [place] [address] 16 Apr, 2011 [facility] [place] [facility] [address] [id number] [place] [address] Apr, [facility] [place] [facility] [address] [id number] [place] [address] Apr, [facility] [place] [facility] [address] [id number] [place] [address] Mar, [facility] [place] [facility] [address] [id number] [place] [address] Mar, [facility] [place] [facility] [address] [id number] [place] [address] 23 Mar, 2011 [facility] [address] [id number] [place] [address] Mar, [facility] [place] [facility] [address] [id number] [place] [address] Mar, [facility] [address] [id number] [place] [address] 17 Mar, 2011 [facility] [place] [facility] [address] [address] [id number] [place] [address] 16 Mar, 2011 [facility] [address] [id number] [place] [address] Mar, [facility] [place] [facility] [address] [id number] [place] [address] Feb, [facility] [address] [id number] [place] [address] Feb, [facility] [place] [facility] [address] [id number] [place] [address] Feb, [facility] [place] [facility] [address] [id number] [place] [address] Feb, [facility] [place] [facility] [address] [id number] [place] [address] Feb, [facility] [place] [facility] [address] [id number] [place] [address] Jan, [facility] [place] [facility] [address] [id number] [place] [address] Jan, [facility] [place] [facility] [address] [id number] [place] [address] Jan, [facility] [place] [facility] [address] [id number] [place] [address] Jan, [facility] [place] [facility] [address] [id number] [place] [address] 14 Dec, 2010 [facility] [address] [facility] [id number], [place] [address] 14 Dec, 2010 [facility] [address] [facility] [id number], [place] [address] Sep, [facility] [address] [facility] [id number], [place] [address] July, [facility] [address] [facility] [id number], [place] [address] Apr, [facility] [address] [id number], [place] [address] Mar, [facility] [address] [facility] [id number] [place] [address] Feb, [facility] [address] [facility] [id number], [place] [address] Feb, [facility] [address] [facility] [id number], [place] [address] Feb, [facility] [address] [facility] [id number], [place] [address] Feb, [facility] [address] [id number], [place] [address] Feb, [facility] [id number], [place] [address] Feb, [facility] [address] [facility] [id number], [place] [address] Feb, [facility] [address] [facility] [id number], [place] [address] Dec, [facility] [address] [facility] [id number], [place] [address] Jan, [facility] [address] [facility] [id number], [place] [address] 14 Apr, 2008 IMMUNIZATIONS No Known Immunizations SOCIAL HISTORY Never Assessed REASON FOR VISIT Medication refill request PLAN OF CARE VITAL SIGNS MEDICATIONS Unknown [...] Surgery Hospitalization History Hyperglycemia 2012 Hospitalization History [facility] 11/28/2015-12/04/2015 2016 Hospitalization History Schizophrenia 09/26/16 Hospitalization History AMS, UTI, hyponatremia-[facility] 10/21/16 Hospitalization History stent placed 02/02/17 Hospitalization History stent placed 02/2017 Hospitalization History [facility]- Syncope, Dehydration and Hypotension. 06/08/2017
--- OUTSIDE RECORDS SUMMARY | 2018-09-05 12:50 | XMS REPORT ---
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 Active 0826683651660 Problem Diabetes E11.9 Active 38297601 Problem CVA (cerebral vascular accident) I63.9 Active 141625020 Problem Bipolar affective disorder, current episode mixed, current episode severity unspecified F31.60 Active 364830595 Problem Psychosis, unspecified psychosis type F29 Active [id number] ALLERGIES No Information ENCOUNTERS Encounter Location Date Diagnosis [facility] [id number] [place] [address] Dec, [place] [address] Oct, [facility] [address] [address] Oct, [facility] [address] [address] Oct, [facility] [address] [address] Sep, [facility] [address] [address] Aug, Upper respiratory tract infection, unspecified type J06.9 ; Chronic idiopathic constipation K59.04 ; Fluid level behind tympanic membrane of both ears H65.93 and Abdominal pain R10.9 [facility] [id number] [place] [address] July, Diabetes E11.9 [facility] [address] [address] Jun, Dehydration E86.0 ; Diabetes E11.9 and Hyperglycemia R73.9 [facility] [address] [address] Jun, [address] [address] Jun, Vertigo R42 ; Syncope, unspecified syncope type R55 ; Diabetes E11.9 and Hyperglycemia R73.9 [place] [id number] [place] [address] May, Psychosis, unspecified psychosis type F29 and Bipolar affective disorder, current episode mixed, current episode severity unspecified F31.60 [place] [id number] [place] [address] May, [place] [id number] [place] [address] May, Diabetes E11.9 [facility] [id number] [place] [id number] Apr, Dental examination Z01.20 and Dental caries K02.9 [place] [id number] [place] [address] Apr, Dental examination Z01.20 and Dental abscess K04.7 [place] [id number] [place] [address] Mar, Psychosis, unspecified psychosis type F29 and Bipolar affective disorder, current episode mixed, current episode severity unspecified F31.60 [facility] [id number] [place] [address] Mar, [facility] [id number] [place] [address] Feb, [facility] [id number] [place] [address] Feb, Left wrist pain M25.532 [facility] [id number] [place] [address] Jan, [facility] [id number] [place] [address] Jan, Psychosis, unspecified psychosis type F29 and Bipolar affective disorder, current episode mixed, current episode severity unspecified F31.60 [place] [id number] [place] [address] Jan, Diabetes E11.9 [facility] [id number] [place] [address] Jan, Left wrist pain M25.532 [address] [place] [address] [address] Dec, Psychosis, unspecified psychosis type F29 and Bipolar affective disorder, current episode mixed, current episode severity unspecified F31.60 [place] [id number] [place] [address] Dec, Syncope, unspecified syncope type R55 ; Vertigo R42 ; Diabetes E11.9 ; Psychosis, unspecified psychosis type F29 and Fall, initial encounter W19.XXXA [place] [place] [id number] [place] [address] Dec, Diabetes E11.9 ; Neck pain M54.2 and Vertigo R42 [address] [id number] [place] [address] Nov, [facility] [id number] [place] [address] Nov, [place] [id number] [place] [address] Nov, [address] [place] [address] [address] Nov, Diabetes E11.9 [facility] [address] [address] Nov, Diabetes E11.9 [facility] [address] [address] Oct, [facility] [id number] [id number] Oct, [facility] [address] [address] Oct, [facility] [address] [place] [address] Oct, Bipolar affective disorder, current episode mixed, current episode severity unspecified F31.60 [facility] [id number] [id number] Sep, [facility] [address] [address] Sep, Bipolar affective disorder, current episode mixed, current episode severity unspecified F31.[address] [facility] [address], [place] [address] Sep, Acute maxillary sinusitis, recurrence not specified J01.00 [facility] [id number] [address] Sep, Diabetes E11.9 [facility] [address], [place] [address] July, Diabetes E11.9 [facility] [id number] [address] July, Diabetes E11.9 [facility] [address] [address] Jun, [facility] [id number] [address] May, Bipolar affective disorder, current episode mixed, current episode severity unspecified F31.60 [facility] [id number] [place] [address] May, Acute non-recurrent maxillary sinusitis J01.00 [facility] [id number] [place] [address] 10 Apr, 2016 Psychosis, unspecified psychosis type F29 and Bipolar affective disorder, current episode mixed, current episode severity unspecified F31.60 [facility] [id number] [place] [address] 03 Apr, 2016 Dysuria R30.0 ; Other viral agents as the cause of diseases classified elsewhere B97.89 and Acute upper respiratory infection, unspecified J06.9 [place] [id number] [place] [address] Mar, Diabetes E11.9 ; Urine leukocytes R82.99 and Psychosis, unspecified psychosis type F29 [place] [id number] [place] [address] Mar, Diabetes E11.9 [place] [place] [id number] [place] [address] Feb, [place] [id number] [place] [address] Jan, [id number] [place] [address] Dec, Psychosis, unspecified psychosis type F29 [id number] [place] [address] Dec, [facility] [id number] [place] [address] Dec, [address] [id number] [place] [address] Dec, Psychosis, unspecified psychosis type F29 [address] [address] Nov, Schizoaffective disorder, unspecified type F25.9 [facility] [id number] [place] [address] Oct, [facility] [id number] [place] [address] Oct, Conjunctivitis of right eye, unspecified conjunctivitis type H10.9 [facility] [address] [address] Aug, [facility] [address] [id number] Jun, Encounter for dental examination Z01.20 [facility] [address] [address] Jun, Diabetes E11.9 and Bipolar affect, depressed F31.30 [facility] [address] [address] Jun, Other bipolar disorder F31.89 [facility] [id number] [place] [address] Jun, [facility] [id number] [place] [address] Apr, [facility] [id number] [place] [address] Dec, [facility] [id number] [place] [address] Dec, [facility] [id number] [place] [address] Sep, [facility] [address] [address] Jun, [facility] [id number] [place] [address] Jun, [facility] [id number] [place] [address] Mar, [facility] [place] [facility] [address] [id number] [place] [address] Mar, [facility] [place] [facility] [address] [id number] [place] [address] Nov, [facility] [place] [facility] [address] [id number] [place] [address] Nov, [facility] [place] [facility] [address] [id number] [place] [address] Sep, [facility] [place] [facility] [address] [id number] [place] [address] Sep, [facility] [place] [facility] [address] [id number] [place] [address] Sep, [facility] [place] [facility] [address] [id number] [place] [address] Sep, [facility] [place] [facility] [address] [id number] [place] [address] Sep, [facility] [place] [facility] [address] [id number] [place] [address] Aug, [facility] [place] [facility] [address] [id number] [place] [address] Aug, [facility] [place] [facility] [address] [id number] [place] [address] Aug, [facility] [place] [facility] [address] [id number] [place] [address] Aug, [facility] [place] [facility] [address] [id number] [place] [address] Aug, [facility] [place] [facility] [address] [id number] [place] [address] Aug, [facility] [place] [facility] [address] [id number] [place] [address] July, [facility] [place] [facility] [address] [id number] [place] [address] July, [facility] [address] [id number] [place] [address] Jun, [facility] [place] [facility] [address] [id number] [place] [address] Jun, [facility] [place] [facility] [address] [id number] [place] [address] Jun, [facility] [place] [facility] [address] [id number] [place] [address] Jun, [facility] [place] [facility] [address] [id number] [place] [address] Jun, [facility] [place] [facility] [address] [id number] [place] [address] Jun, [facility] [place] [facility] [address] [id number] [place] [address] Jun, [facility] [place] [facility] [address] [id number] [place] [address] Jun, [facility] [place] [facility] [address] [id number] [place] [address] May, [facility] [place] [facility] [address] [id number] [place] [address] May, [facility] [place] [facility] [address] [id number] [place] [address] May, [facility] [place] [facility] [address] [id number] [place] [address] May, [facility] [place] [facility] [address] [id number] [place] [address] May, [facility] [place] [facility] [address] [id number] [place] [address] May, [facility] [place] [facility] [address] [id number] [place] [address] May, [facility] [place] [facility] [address] [id number] [place] [address] May, [facility] [place] [facility] [address] [id number] [place] [address] May, [facility] [place] [facility] [address] [id number] [place] [address] Apr, [facility] [place] [facility] [address] [id number] [place] [address] Apr, [facility] [place] [facility] [address] [id number] [place] [address] Mar, [facility] [place] [facility] [address] [id number] [place] [address] Mar, [facility] [place] [facility] [address] [id number] [place] [address] Feb, [facility] [place] [facility] [address] [id number] [place] [address] Feb, [facility] [place] [facility] [address] [id number] [place] [address] Nov, [facility] [place] [facility] [address] [id number] [place] [address] Nov, [facility] [place] [facility] [address] [id number] [place] [address] Oct, [facility] [place] [facility] [address] [id number] [place] [address] Oct, [facility] [place] [facility] [address] [id number] [place] [address] Oct, [facility] [place] [facility] [address] [id number] [place] [address] Oct, [facility] [place] [facility] [address] [id number] [place] [address] Oct, [facility] [place] [facility] [address] [id number] [place] [address] 23 Sep, 2012 [facility] [address] [id number] [place] [address] Sep, [facility] [place] [facility] [address] [id number] [place] [address] Sep, [facility] [address] [id number] [place] [address] Sep, [facility] [place] [facility] [address] [id number] [place] [address] Aug, [facility] [address] [id number] [place] [address] Aug, [facility] [address] [id number] [place] [address] Aug, [facility] [address] [id number] [place] [address] Aug, [facility] [address] [id number] [place] [address] Jun, [facility] [place] [facility] [address] [id number] [place] [address] Jun, [facility] [address] [id number] [place] [address] Jun, [facility] [place] [facility] [address] [id number] [place] [address] Jun, [facility] [place] [facility] [address] [id number] [place] [address] 21 May, 2012 [facility] [place] [facility] [address] [id number] [place] [address] 18 May, 2012 [facility] [place] [facility] [address] [id number] [place] [address] 18 May, 2012 [facility] [place] [facility] [address] [id number] [place] [address] 13 May, 2012 [facility] [place] [facility] [address] [id number] [place] [address] 11 May, 2012 [facility] [place] [facility] [address] [id number] [place] [address] 04 May, 2012 [facility] [place] [facility] [address] [id number] [place] [address] 21 Apr, 2012 [facility] [place] [facility] [address] [id number] [place] [address] 20 Apr, 2012 [facility] [place] [facility] [address] [id number] [place] [address] Apr, [facility] [place] [facility] [address] [id number] [place] [address] Apr, [facility] [address] [id number] [place] [address] Apr, [facility] [address] [id number] [place] [address] Feb, [facility] [address] [id number] [place] [address] Feb, [facility] [address] [id number] [place] [address] Feb, [facility] [address] [id number] [place] [address] Feb, [facility] [place] [facility] [address] [id number] [place] [address] Feb, [facility] [place] [facility] [address] [id number] [place] [address] Feb, [facility] [place] [facility] [address] [id number] [place] [address] Feb, [facility] [place] [facility] [address] [id number] [place] [address] Feb, [facility] [place] [facility] [address] [id number] [place] [address] 14 Feb, 2012 [facility] [address] [id number] [place] [address] 14 Feb, 2012 [facility] [place] [facility] [address] [id number] [place] [address] 13 Feb, 2012 [facility] [address] [id number] [place] [address] 13 Feb, 2012 [facility] [place] [facility] [address] [id number] [place] [address] 12 Feb, 2012 [facility] [address] [id number] [place] [address] 12 Feb, 2012 [facility] [place] [facility] [address] [id number] [place] [address] 12 Feb, 2012 [facility] [address] [id number] [place] [address] 12 Feb, 2012 [facility] [place] [facility] [address] [id number] [place] [address] Feb, [facility] [place] [facility] [address] [id number] [place] [address] Feb, [facility] [place] [facility] [address] [id number] [place] [address] Feb, [facility] [place] [facility] [address] [id number] [place] [address] Feb, [facility] [place] [facility] [address] [id number] [place] [address] Feb, [facility] [place] [facility] [address] [id number] [place] [address] Feb, [facility] [place] [facility] [address] [id number] [place] [address] 04 Feb, 2012 [facility] [place] [facility] [address] [id number] [place] [address] 04 Feb, 2012 [facility] [place] [facility] [address] [id number] [place] [address] Feb, [facility] [place] [facility] [address] [id number] [place] [address] Feb, [facility] [place] [facility] [address] [id number] [place] [address] Jan, [facility] [place] [facility] [address] [id number] [place] [address] Jan, [facility] [place] [facility] [address] [id number] [place] [address] Dec, [facility] [place] [facility] [address] [id number] [place] [address] Dec, [facility] [place] [facility] [address] [id number] [place] [address] Dec, [facility] [place] [facility] [address] [id number] [place] [address] Dec, [facility] [place] [facility] [address] [id number] [place] [address] Nov, [facility] [place] [facility] [address] [id number] [place] [address] Nov, [facility] [place] [facility] [address] [id number] [place] [address] Nov, [facility] [place] [facility] [address] [id number] [place] [address] Nov, [facility] [place] [facility] [address] [id number] [place] [address] Oct, [facility] [place] [facility] [address] [id number] [place] [address] Oct, [facility] [place] [facility] [address] [id number] [place] [address] Sep, [facility] [place] [facility] [address] [id number] [place] [address] Sep, [facility] [place] [facility] [address] [id number] [place] [address] Sep, [facility] [place] [facility] [address] [id number] [place] [address] Aug, [facility] [place] [facility] [address] [id number] [place] [address] Aug, [facility] [place] [facility] [address] [id number] [place] [address] Aug, [facility] [place] [facility] [address] [id number] [place] [address] Aug, [facility] [place] [facility] [address] [id number] [place] [address] Aug, [facility] [place] [facility] [address] [id number] [place] [address] July, [facility] [place] [facility] [address] [id number] [place] [address] July, [facility] [place] [facility] [address] [id number] [place] [address] July, [facility] [place] [facility] [address] [id number] [place] [address] July, [facility] [place] [facility] [address] [id number] [place] [address] July, [facility] [place] [facility] [address] [id number] [address] Jun, [facility] [place] [facility] [address] [id number] [place] [address] May, [facility] [place] [facility] [address] [id number] [place] [address] 16 Apr, 2011 [facility] [place] [facility] [address] [id number] [place] [address] 13 Apr, 2011 [facility] [place] [facility] [address] [id number] [place] [address] 13 Apr, 2011 [facility] [address] [id number] [place] [address] Mar, [facility] [address] [id number] [place] [address] Mar, [facility] [address] [id number] [place] [address] Mar, [facility] [address] [id number] [place] [address] Mar, [facility] [address] [id number] [place] [address] Mar, [facility] [address] [id number] [place] [address] Mar, [facility] [address] [id number] [place] [address] Mar, [facility] [address] [id number] [place] [address] Mar, [facility] [address] [id number] [place] [address] Feb, [facility] [address] [id number] [place] [address] Feb, [facility] [address] [id number] [place] [address] Feb, [facility] [address] [id number] [place] [address] Feb, [facility] [address] [id number] [place] [address] Feb, [facility] [address] [id number] [place] [address] Jan, [facility] [address] [id number] [place] [address] Jan, [facility] [address] [id number] [place] [address] Jan, [facility] [place] [facility] [address] [id number] [place] [address] Jan, [facility] [place] [facility] [address] [id number] [place] [address] 14 Dec, 2010 [facility] [place] [facility] [address] [id number] [place] [address] 14 Dec, 2010 [facility] [place] [facility] [address] [id number] [place] [address] Sep, [facility] [place] [facility] [address] [id number] [place] [address] July, [facility] [place] [facility] [address] [id number] [place] [address] Apr, [facility] [place] [facility] [address] [id number] [place] [address] Mar, [facility] [place] [facility] [address] [id number] [place] [address] Feb, [facility] [place] [facility] [address] [id number] [place] [address] Feb, [facility] [place] [facility] [address] [id number] [place] [address] Feb, [facility] [place] [facility] [address] [id number] [place] [address] Feb, [facility] [place] [facility] [address] [id number] [place] [address] 15 Feb, 2010 [facility] [place] [facility] [address] [id number] [place] [address] Feb, [facility] [place] [facility] [address] [id number] [place] [address] Feb, [facility] [place] [facility] [address] [id number] [place] [address] Dec, [facility] [address] [facility] [id number] [place] [address] Jan, [facility] [address] [facility] [id number] [place] [address] Apr, IMMUNIZATIONS No Known Immunizations SOCIAL HISTORY Never Assessed REASON FOR VISIT PALS IN[place] PLAN OF CARE VITAL SIGNS MEDICATIONS Unknown [...] Surgery Hospitalization History Hyperglycemia 2012 Hospitalization History [facility] 11/28/2015-12/04/2015 2016 Hospitalization History Schizophrenia 09/26/16 Hospitalization History AMS, UTI, hyponatremia-[facility] 10/21/16 Hospitalization History stent placed 02/02/17 Hospitalization History stent placed 02/2017 Hospitalization History [facility]- Syncope, Dehydration and Hypotension. 06/08/2017
--- OUTSIDE RECORDS SUMMARY | 2018-09-05 12:50 | XMS REPORT ---
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 621846118 Problem Coronary artery disease involving [place] coronary artery of [place] heart without angina pectoris I25.10 Active 5225119775761 Problem Bipolar affective disorder, current episode mixed, current episode severity unspecified F31.60 Active 393181370 Problem Age-related incipient cataract of both eyes H25.093 Active 723194589 Problem Chronic idiopathic constipation K59.04 Active 69058797 ALLERGIES No Information ENCOUNTERS Encounter Location Date Diagnosis [place] [id number] [place] [address] Dec, [facility] [id number] [place] [address] Dec, [place] [id number] [place] [address] Dec, 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 ; MCFP current use of insulin Z79.4 and Hyperglycemia R73.9 [facility] [id number] [place] [address] Oct, [facility] [address] [address] Oct, [facility] [id number] [place] [address] Oct, [facility] [id number] [place] [address] Sep, [facility] [id number] [place] [address] Aug, Upper respiratory tract infection, unspecified type J06.9 ; Chronic idiopathic constipation K59.04 ; Fluid level behind tympanic membrane of both ears H65.93 and Abdominal pain R10.9 [facility] [address] [address] July, Diabetes E11.9 [place] [id number] [place] [address] Jun, Dehydration E86.0 ; Diabetes E11.9 and Hyperglycemia R73.9 [facility] [id number] [place] [address] Jun, [facility] [id number] [place] [address] Jun, Vertigo R42 ; Syncope, unspecified syncope type R55 ; Diabetes E11.9 and Hyperglycemia R73.9 [place] [id number] [place] [address] May, Psychosis, unspecified psychosis type F29 and Bipolar affective disorder, current episode mixed, current episode severity unspecified F31.60 [facility] [id number] [place] [address] May, [facility] [id number] [place] [address] May, Diabetes E11.9 [facility] [id number] [place] [id number] Apr, Dental examination Z01.20 and Dental caries K02.9 [facility] [id number] [place] [address] Apr, Dental examination Z01.20 and Dental abscess K04.7 [place] [address] [address] Mar, Psychosis, unspecified psychosis type F29 and Bipolar affective disorder, current episode mixed, current episode severity unspecified F31.60 [place] [address] [address] Mar, [place] [address] [address] Feb, [place] [address] [address] Feb, Left wrist pain M25.532 [place] [address] [address] Jan, [place] [address] [address] Jan, Psychosis, unspecified psychosis type F29 and Bipolar affective disorder, current episode mixed, current episode severity unspecified F31.60 [place] [address] [address] Jan, Diabetes E11.9 [facility] [id number] [place] [address] Jan, Left wrist pain M25.532 [place] [id number] [place] [address] Dec, Psychosis, unspecified psychosis type F29 and Bipolar affective disorder, current episode mixed, current episode severity unspecified F31.60 [place] [address] [address] Dec, Syncope, unspecified syncope type R55 ; Vertigo R42 ; Diabetes E11.9 ; Psychosis, unspecified psychosis type F29 and Fall, initial encounter W19.XXXA [place] [address] [address] Dec, Diabetes E11.9 ; Neck pain M54.2 and Vertigo R42 [facility] [id number] [address] 13 Nov, 2016 [facility] [address] [address] 08 Nov, 2016 [facility] [id number] [address] 08 Nov, 2016 [facility] [id number] [address] 06 Nov, 2016 Diabetes E11.9 [facility] [id number] [place] [address] 05 Nov, 2016 Diabetes E11.9 [facility] [address] [address] Oct, [facility] [id number] [id number] Oct, [facility] [id number] [address] Oct, [facility] [id number] [address] Oct, Bipolar affective disorder, current episode mixed, current episode severity unspecified F31.60 [facility] [id number] [id number] Sep, [facility] [address] [address] Sep, Bipolar affective disorder, current episode mixed, current episode severity unspecified F31.60 [facility] [address] [address] Sep, Acute maxillary sinusitis, recurrence not specified J01.00 [facility] [address], [place] [address] Sep, Diabetes E11.9 [facility] [id number] [place] [address] July, Diabetes E11.9 [facility] [id number] [place] [address] July, Diabetes E11.9 [facility] [id number] [place] [address] Jun, [place] [id number] [place] [address] May, Bipolar affective disorder, current episode mixed, current episode severity unspecified F31.60 [facility] [id number] [place] [address] May, Acute non-recurrent maxillary sinusitis J01.00 [place] [id number] [place] [address] Apr, Psychosis, unspecified psychosis type F29 and Bipolar affective disorder, current episode mixed, current episode severity unspecified F31.60 [facility] [id number] [place] [address] Apr, Dysuria R30.0 ; Other viral agents as the cause of diseases classified elsewhere B97.89 and Acute upper respiratory infection, unspecified J06.9 [place] [address] [place] [address] Mar, Diabetes E11.9 ; Urine leukocytes R82.99 and Psychosis, unspecified psychosis type F29 [place] [address] [place] [address] Mar, Diabetes E11.9 [place] [id number] [place] [address] Feb, [place] [id number] [place] [address] Jan, [place] [id number] [place] [address] Dec, Psychosis, unspecified psychosis type F29 [facility] [id number] [place] [address] Dec, [facility] [id number] [place] [address] Dec, [facility] [id number] [place] [address] Dec, Psychosis, unspecified psychosis type F29 [facility] [id number] [place] [address] Nov, Schizoaffective disorder, unspecified type F25.9 [facility] [id number] [place] [address] Oct, [facility] [id number] [place] [address] Oct, Conjunctivitis of right eye, unspecified conjunctivitis type H10.9 [facility] [id number] [place] [address] Aug, [facility] [address] [id number] Jun, Encounter for dental examination Z01.20 [facility] [id number] [place] [address] Jun, Diabetes E11.9 and Bipolar affect, depressed F31.30 [facility] [id number] [place] [address] Jun, Other bipolar disorder F31.89 [facility] [id number] [place] [address] Jun, [facility] [id number] [place] [address] Apr, [facility] [id number] [place] [address] Dec, [facility] [place] [facility] [address] [id number] [place] [address] Dec, [facility] [place] [facility] [address] [id number] [place] [address] Sep, [facility] [place] [facility] [address] [id number] [place] [address] Jun, [facility] [place] [facility] [address] [id number] [place] [address] Jun, [facility] [place] [facility] [address] [id number] [place] [address] Mar, [facility] [place] [facility] [address] [id number] [place] [address] Mar, [facility] [place] [facility] [address] [id number] [place] [address] Nov, [facility] [place] [facility] [address] [id number] [place] [address] Nov, [facility] [place] [facility] [address] [id number] [place] [address] Sep, [facility] [place] [facility] [address] [id number] [place] [address] Sep, [facility] [place] [facility] [address] [id number] [place] [address] Sep, [facility] [place] [facility] [address] [id number] [place] [address] Sep, [facility] [place] [facility] [address] [id number] [place] [address] Sep, [facility] [place] [facility] [address] [id number] [place] [address] Aug, [facility] [place] [facility] [address] [id number] [place] [address] Aug, [facility] [place] [facility] [address] [id number] [place] [address] Aug, [facility] [place] [facility] [address] [id number] [place] [address] Aug, [facility] [place] [facility] [address] [id number] [place] [address] Aug, [facility] [place] [facility] [address] [id number] [place] [address] Aug, [facility] [place] [facility] [address] [id number] [place] [address] July, [facility] [place] [facility] [address] [id number] [place] [address] July, [facility] [place] [facility] [address] [id number] [place] [address] Jun, [facility] [place] [facility] [address] [id number] [place] [address] Jun, [facility] [place] [facility] [address] [id number] [place] [address] Jun, [facility] [place] [facility] [address] [id number] [place] [address] Jun, [facility] [place] [facility] [address] [id number] [place] [address] Jun, [facility] [place] [facility] [address] [id number] [place] [address] Jun, [facility] [place] [facility] [address] [id number] [place] [address] Jun, [facility] [place] [facility] [address] [id number] [place] [address] Jun, [facility] [place] [facility] [address] [id number] [place] [address] May, [facility] [place] [facility] [address] [id number] [place] [address] May, [facility] [place] [facility] [address] [id number] [place] [address] May, [facility] [address] [id number] [place] [address] May, [facility] [place] [facility] [address] [id number] [place] [address] May, [facility] [address] [id number] [place] [address] May, [facility] [place] [facility] [address] [id number] [place] [address] May, [facility] [place] [facility] [address] [id number] [place] [address] May, [facility] [place] [facility] [address] [id number] [place] [address] May, [facility] [place] [facility] [address] [id number] [place] [address] Apr, [facility] [address] [id number] [place] [address] Apr, [facility] [place] [facility] [address] [id number] [place] [address] Mar, [facility] [address] [id number] [place] [address] Mar, [facility] [place] [facility] [address] [id number] [place] [address] Feb, [facility] [place] [facility] [address] [id number] [place] [address] Feb, [facility] [place] [facility] [address] [id number] [place] [address] Nov, [facility] [place] [facility] [address] [id number] [place] [address] Nov, [facility] [place] [facility] [address] [id number] [place] [address] Oct, [facility] [address] [id number] [place] [address] Oct, [facility] [place] [facility] [address] [id number] [place] [address] Oct, [facility] [place] [facility] [address] [id number] [place] [address] Oct, [facility] [place] [facility] [address] [id number] [place] [address] Oct, [facility] [place] [facility] [address] [id number] [place] [address] Sep, [facility] [place] [facility] [address] [id number] [place] [address] Sep, [facility] [place] [facility] [address] [id number] [place] [address] Sep, [facility] [place] [facility] [address] [id number] [place] [address] Sep, [facility] [place] [facility] [address] [id number] [place] [address] Aug, [facility] [place] [facility] [address] [id number] [place] [address] Aug, [facility] [place] [facility] [address] [id number] [place] [address] Aug, [facility] [place] [facility] [address] [id number], [place] [address] Aug, [facility] [place] [facility] [address] [id number] [place] [address] Jun, [facility] [place] [facility] [address] [id number] [place] [address] Jun, [facility] [place] [facility] [address] [id number] [place] [address] Jun, [facility] [place] [facility] [address] [id number] [place] [address] 17 Jun, 2012 [facility] [address] [id number] [place] [address] 21 May, 2012 [facility] [place] [facility] [address] [id number] [place] [address] 18 May, 2012 [facility] [address] [id number] [place] [address] 18 May, 2012 [facility] [place] [facility] [address] [id number] [place] [address] 13 May, 2012 [facility] [address] [id number] [place] [address] 11 May, 2012 [facility] [address] [id number] [place] [address] 04 May, 2012 [facility] [address] [id number] [place] [address] 21 Apr, 2012 [facility] [address] [id number] [place] [address] 20 Apr, 2012 [facility] [address] [facility] [id number] [place] [address] 19 Apr, 2012 [facility] [address] [facility] [id number] [place] [address] 19 Apr, 2012 [facility] [address] [facility] [id number] [place] [address] 19 Apr, 2012 [facility] [address] [facility] [id number] [place] [address] Feb, [facility] [place] [facility] [address] [id number] [place] [address] Feb, [facility] [place] [facility] [address] [facility] [id number] [place] [address] Feb, [facility] [place] [facility] [address] [facility] [id number] [place] [address] Feb, [facility] [address] [id number] [place] [address] 19 Feb, 2012 [facility] [place] [facility] [address] [id number] [place] [address] 19 Feb, 2012 [facility] [place] [facility] [address] [id number] [place] [address] 19 Feb, 2012 [facility] [place] [facility] [address] [id number] [place] [address] Feb, [facility] [place] [facility] [address] [id number] [place] [address] 14 Feb, 2012 [facility] [place] [facility] [address] [id number] [place] [address] 14 Feb, 2012 [facility] [place] [facility] [address] [id number] [place] [address] 13 Feb, 2012 [facility] [place] [facility] [address] [id number] [place] [address] 13 Feb, 2012 [facility] [place] [facility] [address] [id number] [place] [address] Feb, [facility] [place] [facility] [address] [id number] [place] [address] Feb, [facility] [place] [facility] [address] [id number] [place] [address] Feb, [facility] [place] [facility] [address] [id number], [place] [address] Feb, [facility] [place] [facility] [address] [id number] [place] [address] Feb, [facility] [place] [facility] [address] [id number] [place] [address] Feb, [facility] [place] [facility] [address] [id number] [place] [address] Feb, [facility] [place] [facility] [address] [id number], [place] [address] Feb, [facility] [place] [facility] [address] [id number] [place] [address] Feb, [facility] [place] [facility] [address] [id number] [place] [address] Feb, [facility] [place] [facility] [address] [facility] [id number] [place] [address] Feb, [facility] [place] [facility] [address] [id number] [place] [address] Feb, [facility] [place] [facility] [address] [id number] [place] [address] Feb, [facility] [place] [facility] [address] [facility] [id number] [place] [address] Feb, [facility] [place] [facility] [address] [id number] [address] Jan, [facility] [place] [facility] [address] [facility] [id number] [place] [address] Jan, [facility] [place] [facility] [address] [facility] [id number], [place] [address] Dec, [facility] [place] [facility] [address] [facility] [id number], [place] [address] Dec, [facility] [place] [facility] [address] [facility] [id number], [place] [address] Dec, [facility] [place] [facility] [address] [facility] [id number], [place] [address] Dec, [facility] [place] [facility] [address] [id number], [place] [address] Nov, [facility] [place] [facility] [address] [facility] [id number], [place] [address] Nov, [facility] [place] [facility] [address] [facility] [id number], [place] [address] Nov, [facility] [place] [facility] [address] [id number] [place] [address] Nov, [facility] [place] [facility] [address] [id number] [place] [address] Oct, [facility] [place] [facility] [address] [id number] [place] [address] Oct, [facility] [place] [facility] [address] [id number] [place] [address] Sep, [facility] [place] [facility] [address] [id number] [place] [address] Sep, [facility] [place] [facility] [address] [id number] [place] [address] Sep, [facility] [place] [facility] [address] [id number] [place] [address] Aug, [facility] [place] [facility] [address] [id number] [place] [address] Aug, [facility] [place] [facility] [address] [id number] [place] [address] Aug, [facility] [place] [facility] [address] [id number] [place] [address] Aug, [facility] [place] [facility] [address] [id number] [place] [address] Aug, [facility] [place] [facility] [address] [id number] [place] [address] July, [facility] [place] [facility] [address] [id number] [place] [address] July, [facility] [place] [facility] [address] [id number] [place] [address] July, [facility] [place] [facility] [address] [id number] [place] [address] July, [facility] [place] [facility] [address] [id number] [place] [address] July, [facility] [place] [facility] [address] [id number] [place] [address] Jun, [facility] [place] [facility] [address] [id number] [place] [address] May, [facility] [place] [facility] [address] [id number] [place] [address] 16 Apr, 2011 [facility] [place] [facility] [address] [id number] [place] [address] Apr, [facility] [place] [facility] [address] [id number] [place] [address] Apr, [facility] [place] [facility] [address] [id number] [place] [address] Mar, [facility] [place] [facility] [address] [id number] [place] [address] Mar, [facility] [place] [facility] [address] [id number] [place] [address] Mar, [facility] [place] [facility] [address] [id number] [place] [address] Mar, [facility] [place] [facility] [address] [id number] [place] [address] Mar, [facility] [place] [facility] [address] [id number] [place] [address] Mar, [facility] [place] [facility] [address] [id number] [place] [address] Mar, [facility] [place] [facility] [address] [id number] [place] [address] Mar, [facility] [place] [facility] [address] [id number] [place] [address] Feb, [facility] [place] [facility] [address] [id number] [place] [address] Feb, [facility] [place] [facility] [address] [id number] [place] [address] 12 Feb, 2011 [facility] [address] [id number] [place] [address] Feb, [facility] [place] [facility] [address] [id number] [place] [address] Feb, [facility] [address] [id number] [place] [address] Jan, [facility] [address] [id number] [place] [address] Jan, [facility] [address] [id number] [place] [address] Jan, [facility] [address] [id number] [place] [address] Jan, [facility] [address] [id number] [place] [address] 14 Dec, 2010 [facility] [address] [id number] [place] [address] 14 Dec, 2010 [facility] [address] [id number] [place] [address] Sep, [facility] [address] [id number] [place] [address] July, [facility] [address] [id number] [place] [address] Apr, [facility] [address] [id number] [place] [address] Mar, [facility] [place] [facility] [address] [id number] [place] [address] Feb, [facility] [place] [facility] [address] [id number] [place] [address] Feb, [facility] [address] [id number] [place] [address] Feb, [facility] [address] [facility] [id number] [address] Feb, [facility] [address] [id number] [address] Feb, [facility] [address] [id number] [address] Feb, [facility] [id number], [place] [address] Feb, [facility] [address] [id number], [place] [address] Dec, [facility] [address] [id number], [place] [address] Jan, [facility] [address] [id number], [place] [address] Apr, IMMUNIZATIONS No Known Immunizations SOCIAL HISTORY Never Assessed REASON FOR VISIT BS f/u PLAN OF CARE VITAL SIGNS MEDICATIONS Unknown [...] Surgery Hospitalization History Hyperglycemia 2012 Hospitalization History [facility] 11/28/2015-12/04/2015 2016 Hospitalization History Schizophrenia 09/26/16 Hospitalization History AMS, UTI, hyponatremia-VC 10/21/16 Hospitalization History stent placed 02/02/17 Hospitalization History stent placed 02/2017 Hospitalization History [facility], operated by [facility]- Syncope, Dehydration and Hypotension. 06/08/2017
--- OUTSIDE RECORDS SUMMARY | 2018-09-05 12:51 | XMS REPORT ---
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.10 Active 3417572211327 Problem Diabetes E11.9 Active 79929104 Problem CVA (cerebral vascular accident) I63.9 Active 544468059 Problem Bipolar affective disorder, current episode mixed, current episode severity unspecified F31.60 Active 907273614 Problem Psychosis, unspecified psychosis type F29 Active 93013650 ALLERGIES No Information ENCOUNTERS Encounter Location Date Diagnosis [facility] [id number] [place] [address] Dec, [facility] [address] [address] Oct, [facility] [id number] [place] [address] Oct, [facility] [address] [address] Oct, [facility] [address] [address] Sep, [facility] [address] [address] Aug, Upper respiratory tract infection, unspecified type J06.9 ; Chronic idiopathic constipation K59.04 ; Fluid level behind tympanic membrane of both ears H65.93 and Abdominal pain R10.9 [place] [address] [place] [address] July, Diabetes E11.9 [facility] [address] [address] Jun, Dehydration E86.0 ; Diabetes E11.9 and Hyperglycemia R73.9 [place] [address] [address] Jun, [place] [id number] [place] [address] Jun, Vertigo R42 ; Syncope, unspecified syncope type R55 ; Diabetes E11.9 and Hyperglycemia R73.9 [place] [id number] [place] [address] May, Psychosis, unspecified psychosis type F29 and Bipolar affective disorder, current episode mixed, current episode severity unspecified F31.60 [place] [id number] [place] [address] May, [place] [id number] [place] [address] May, Diabetes E11.9 [facility] [id number] [place] [id number] Apr, Dental examination Z01.20 and Dental caries K02.9 [place] [id number] [place] [address] Apr, Dental examination Z01.20 and Dental abscess K04.7 [place] [address] [place] [address] Mar, Psychosis, unspecified psychosis type F29 and Bipolar affective disorder, current episode mixed, current episode severity unspecified F31.60 [place] [id number] [place] [address] Mar, [facility] [id number] [place] [address] Feb, [facility] [address] [place] [address] Feb, Left wrist pain M25.532 [place] [id number] [place] [address] Jan, [facility] [id number] [place] [address] Jan, Psychosis, unspecified psychosis type F29 and Bipolar affective disorder, current episode mixed, current episode severity unspecified F31.60 [place] [id number] [place] [address] Jan, Diabetes E11.9 [facility] [id number] [place] [address] Jan, Left wrist pain M25.532 [place] [address] [address] Dec, Psychosis, unspecified psychosis type F29 and Bipolar affective disorder, current episode mixed, current episode severity unspecified F31.60 [place] [id number] [place] [address] Dec, Syncope, unspecified syncope type R55 ; Vertigo R42 ; Diabetes E11.9 ; Psychosis, unspecified psychosis type F29 and Fall, initial encounter W19.XXXA [place] [id number] [place] [address] Dec, Diabetes E11.9 ; Neck pain M54.2 and Vertigo R42 [place] [id number] [place] [address] Nov, [facility] [id number] [place] [address] Nov, [place] [id number] [place] [address] Nov, [place] [address] [place] [address] Nov, Diabetes E11.9 [facility] [address] [address] Nov, Diabetes E11.9 [facility] [address] [address] Oct, [facility] [id number] [id number] Oct, [facility] [id number] [address] Oct, [facility] [id number] [place] [address] Oct, Bipolar affective disorder, current episode mixed, current episode severity unspecified F31.60 [facility] [id number] [id number] Sep, [facility] [address] [address] Sep, Bipolar affective disorder, current episode mixed, current episode severity unspecified F31.60 [facility] [address] [address] Sep, Acute maxillary sinusitis, recurrence not specified J01.00 [facility] [address] [address] Sep, Diabetes E11.9 [facility] [address] [address] July, Diabetes E11.9 [facility] [address] [address] July, Diabetes E11.9 [facility] [address] [address] Jun, [facility] [address] [address] May, Bipolar affective disorder, current episode mixed, current episode severity unspecified F31.60 [facility] [id number] [place] [address] May, Acute non-recurrent maxillary sinusitis J01.00 [facility] [id number] [place] [address] 10 Apr, 2016 Psychosis, unspecified psychosis type F29 and Bipolar affective disorder, current episode mixed, current episode severity unspecified F31.60 [facility] [id number] [place] [address] 03 Apr, 2016 Dysuria R30.0 ; Other viral agents as the cause of diseases classified elsewhere B97.89 and Acute upper respiratory infection, unspecified J06.9 [place] [id number] [place] [address] Mar, Diabetes E11.9 ; Urine leukocytes R82.99 and Psychosis, unspecified psychosis type F29 [place] [id number] [place] [address] Mar, Diabetes E11.9 [place] [address] [address] Feb, [place] [id number] [place] [address] Jan, [place] [id number] [place] [address] Dec, Psychosis, unspecified psychosis type F29 [place] [id number] [place] [address] Dec, [facility] [id number] [place] [address] Dec, [place] [id number] [place] [address] Dec, Psychosis, unspecified psychosis type F29 [place] [address] [address] Nov, Schizoaffective disorder, unspecified type F25.9 [facility] [id number] [place] [address] Oct, [facility] [id number] [place] [address] Oct, Conjunctivitis of right eye, unspecified conjunctivitis type H10.9 [facility] [id number] [place] [address] Aug, [facility] [id number] [place] [id number] Jun, Encounter for dental examination Z01.20 [facility] [id number] [place] [address] Jun, Diabetes E11.9 and Bipolar affect, depressed F31.30 [facility] [address] [address] Jun, Other bipolar disorder F31.89 [facility] [id number] [place] [address] Jun, [facility] [id number] [place] [address] Apr, [facility] [id number] [place] [address] Dec, [facility] [id number] [place] [address] Dec, [facility] [id number] [place] [address] Sep, [facility] [id number] [place] [address] Jun, [facility] [id number] [place] [address] Jun, [facility] [id number] [place] [address] Mar, [facility] [place] [facility] [address] [id number] [place] [address] Mar, [facility] [place] [facility] [address] [id number] [place] [address] Nov, [facility] [place] [facility] [address] [id number] [place] [address] Nov, [facility] [place] [facility] [address] [id number] [place] [address] Sep, [facility] [place] [facility] [address] [id number] [place] [address] Sep, [facility] [place] [facility] [address] [id number] [place] [address] Sep, [facility] [place] [facility] [address] [id number] [place] [address] Sep, [facility] [place] [facility] [address] [id number] [place] [address] Sep, [facility] [place] [facility] [address] [id number] [place] [address] Aug, [facility] [place] [facility] [address] [id number] [place] [address] Aug, [facility] [place] [facility] [address] [id number] [place] [address] Aug, [facility] [place] [facility] [address] [id number] [place] [address] Aug, [facility] [place] [facility] [address] [id number] [place] [address] Aug, [facility] [place] [facility] [address] [id number] [place] [address] Aug, [facility] [place] [facility] [address] [id number] [place] [address] July, [facility] [place] [facility] [address] [id number] [place] [address] July, [facility] [place] [facility] [address] [id number] [place] [address] Jun, [facility] [place] [facility] [address] [id number] [place] [address] Jun, [facility] [place] [facility] [address] [id number] [place] [address] Jun, [facility] [place] [facility] [address] [id number] [place] [address] Jun, [facility] [place] [facility] [address] [id number] [place] [address] Jun, [facility] [place] [facility] [address] [id number] [place] [address] Jun, [facility] [place] [facility] [address] [id number] [place] [address] Jun, [facility] [place] [facility] [address] [id number] [place] [address] Jun, [facility] [place] [facility] [address] [id number] [place] [address] May, [facility] [place] [facility] [address] [id number] [place] [address] May, [facility] [place] [facility] [address] [id number] [place] [address] May, [facility] [place] [facility] [address] [id number] [place] [address] May, [facility] [place] [facility] [address] [id number] [place] [address] May, [facility] [place] [facility] [address] [id number] [place] [address] May, [facility] [place] [facility] [address] [id number] [place] [address] May, [facility] [place] [facility] [address] [id number] [place] [address] May, [facility] [place] [facility] [address] [id number] [place] [address] May, [facility] [place] [facility] [address] [id number] [place] [address] Apr, [facility] [place] [facility] [address] [id number] [place] [address] Apr, [facility] [place] [facility] [address] [id number] [place] [address] Mar, [facility] [place] [facility] [address] [id number] [place] [address] Mar, [facility] [place] [facility] [address] [id number] [place] [address] Feb, [facility] [place] [facility] [address] [id number] [place] [address] Feb, [facility] [place] [facility] [address] [id number] [place] [address] Nov, [facility] [place] [facility] [address] [id number] [place] [address] Nov, [facility] [place] [facility] [address] [id number] [place] [address] Oct, [facility] [place] [facility] [address] [id number] [address] Oct, [facility] [place] [facility] [address] [id number] [place] [address] Oct, [facility] [place] [facility] [address] [id number] [place] [address] Oct, [facility] [place] [facility] [address] [id number] [place] [address] Oct, [facility] [place] [facility] [address] [id number] [place] [address] 23 Sep, 2012 [facility] [address] [id number] [place] [address] Sep, [facility] [address] [id number] [place] [address] Sep, [facility] [address] [id number] [place] [address] Sep, [facility] [address] [id number] [place] [address] Aug, [facility] [address] [id number] [place] [address] Aug, [facility] [address] [id number] [place] [address] Aug, [facility] [address] [id number] [place] [address] Aug, [facility] [address] [id number] [place] [address] Jun, [facility] [address] [id number] [place] [address] Jun, [facility] [address] [id number] [place] [address] Jun, [facility] [address] [id number] [place] [address] Jun, [facility] [address] [id number] [place] [address] 21 May, 2012 [facility] [address] [id number] [place] [address] 18 May, 2012 [facility] [address] [id number] [place] [address] 18 May, 2012 [facility] [address] [id number] [place] [address] 13 May, 2012 [facility] [place] [facility] [address] [id number] [place] [address] 11 May, 2012 [facility] [place] [facility] [address] [id number] [place] [address] 04 May, 2012 [facility] [address] [id number] [place] [address] 21 Apr, 2012 [facility] [place] [facility] [address] [id number] [place] [address] 20 Apr, 2012 [facility] [address] [id number] [place] [address] Apr, [facility] [place] [facility] [address] [id number] [place] [address] 19 Apr, 2012 [facility] [address] [id number] [place] [address] Apr, [facility] [address] [id number] [place] [address] Feb, [facility] [address] [id number] [place] [address] Feb, [facility] [address] [id number] [place] [address] Feb, [facility] [address] [id number] [place] [address] Feb, [facility] [place] [facility] [address] [id number] [address] Feb, [facility] [place] [facility] [address] [id number] [place] [address] Feb, [facility] [place] [facility] [address] [id number] [place] [address] 19 Feb, 2012 [facility] [place] [facility] [address] [id number] [place] [address] 19 Feb, 2012 [facility] [place] [facility] [address] [id number] [place] [address] 14 Feb, 2012 [facility] [address] [id number] [place] [address] 14 Feb, 2012 [facility] [place] [facility] [address] [id number] [place] [address] 13 Feb, 2012 [facility] [address] [id number] [place] [address] 13 Feb, 2012 [facility] [place] [facility] [address] [id number] [place] [address] 12 Feb, 2012 [facility] [address] [id number] [place] [address] 12 Feb, 2012 [facility] [place] [facility] [address] [id number] [place] [address] 12 Feb, 2012 [facility] [address] [id number] [place] [address] 12 Feb, 2012 [facility] [place] [facility] [address] [id number] [place] [address] 12 Feb, 2012 [facility] [place] [facility] [address] [id number] [place] [address] Feb, [facility] [place] [facility] [address] [id number] [place] [address] Feb, [facility] [place] [facility] [address] [id number] [place] [address] Feb, [facility] [place] [facility] [address] [id number] [place] [address] Feb, [facility] [place] [facility] [address] [id number] [place] [address] Feb, [facility] [place] [facility] [address] [id number] [place] [address] Feb, [facility] [place] [facility] [address] [id number] [place] [address] 04 Feb, 2012 [facility] [place] [facility] [address] [id number] [place] [address] Feb, [facility] [place] [facility] [address] [id number] [place] [address] Feb, [facility] [place] [facility] [address] [id number] [place] [address] Jan, [facility] [place] [facility] [address] [id number] [place] [address] Jan, [facility] [place] [facility] [address] [id number] [place] [address] Dec, [facility] [place] [facility] [address] [id number] [place] [address] Dec, [facility] [place] [facility] [address] [id number] [place] [address] Dec, [facility] [place] [facility] [address] [id number] [place] [address] Dec, [facility] [place] [facility] [address] [id number] [place] [address] Nov, [facility] [place] [facility] [address] [id number] [place] [address] Nov, [facility] [place] [facility] [address] [id number] [place] [address] Nov, [facility] [place] [facility] [address] [id number] [place] [address] Nov, [facility] [place] [facility] [address] [id number] [place] [address] Oct, [facility] [place] [facility] [address] [id number] [place] [address] Oct, [facility] [place] [facility] [address] [id number] [place] [address] Sep, [facility] [place] [facility] [address] [id number] [place] [address] Sep, [facility] [place] [facility] [address] [id number] [place] [address] Sep, [facility] [place] [facility] [address] [id number] [place] [address] Aug, [facility] [place] [facility] [address] [id number] [place] [address] Aug, [facility] [place] [facility] [address] [id number] [place] [address] Aug, [facility] [place] [facility] [address] [id number] [place] [address] Aug, [facility] [place] [facility] [address] [id number] [place] [address] Aug, [facility] [place] [facility] [address] [id number] [place] [address] July, [facility] [place] [facility] [address] [id number] [place] [address] July, [facility] [place] [facility] [address] [id number] [place] [address] July, [facility] [place] [facility] [address] [id number] [place] [address] July, [facility] [place] [facility] [address] [id number] [place] [address] July, [facility] [place] [facility] [address] [id number] [place] [address] Jun, [facility] [place] [facility] [address] [id number] [place] [address] May, [facility] [place] [facility] [address] [id number] [place] [address] 16 Apr, 2011 [facility] [place] [facility] [address] [id number] [place] [address] 13 Apr, 2011 [facility] [place] [facility] [address] [id number] [place] [address] 13 Apr, 2011 [facility] [address] [id number] [place] [address] Mar, [facility] [address] [id number] [place] [address] Mar, [facility] [address] [id number] [place] [address] Mar, [facility] [place] [facility] [address] [id number] [place] [address] Mar, [facility] [address] [id number] [place] [address] Mar, [facility] [address] [id number] [place] [address] 17 Mar, 2011 [facility] [address] [id number] [place] [address] Mar, [facility] [address] [id number] [place] [address] Mar, [facility] [address] [id number] [place] [address] Feb, [facility] [address] [id number] [place] [address] Feb, [facility] [address] [id number] [place] [address] Feb, [facility] [address] [id number] [place] [address] Feb, [facility] [place] [facility] [address] [id number] [place] [address] Feb, [facility] [address] [id number] [place] [address] Jan, [facility] [address] [id number] [place] [address] Jan, [facility] [place] [facility] [address] [id number] [place] [address] Jan, [facility] [place] [facility] [address] [id number] [place] [address] Jan, [facility] [place] [facility] [address] [id number] [place] [address] 14 Dec, 2010 [facility] [place] [facility] [address] [id number] [place] [address] 14 Dec, 2010 [facility] [place] [facility] [address] [id number] [place] [address] Sep, [facility] [place] [facility] [address] [id number] [place] [address] July, [facility] [place] [facility] [address] [id number] [place] [id number] Apr, [facility] [place] [facility] [address] [id number] [place] [address] Mar, [facility] [place] [facility] [address] [id number] [place] [address] Feb, [facility] [place] [facility] [address] [id number] [place] [address] Feb, [facility] [place] [facility] [address] [id number] [place] [address] Feb, [facility] [place] [facility] [address] [id number] [address] Feb, [facility] [place] [facility] [address] [id number] [place] [address] 15 Feb, 2010 [facility] [place] [facility] [address] [id number] [place] [address] Feb, [facility] [place] [facility] [address] [id number] [place] [address] Feb, [facility] [place] [facility] [address] [facility] [id number] [place] [address] Dec, [facility] [address] [facility] [id number] [place] [address] Jan, [facility] [address] [facility] [id number] [place] [address] Apr, IMMUNIZATIONS No Known Immunizations SOCIAL HISTORY Never Assessed REASON FOR VISIT Blood pressure check--[facility] PLAN OF CARE VITAL SIGNS Height 64 in 2017-11-03 Heart Rate 70 bpm 2017-11-03 Oximetry on room air:98 % 2017-11-03 Blood pressure systolic 142 mmHg 2017-11-03 Blood pressure diastolic 82 mmHg 2017-11-03 MEDICATIONS Unknown Medications RESULTS No Results PROCEDURES [...] Surgery Hospitalization History Hyperglycemia 2012 Hospitalization History [facility] 11/28/2015-12/04/2015 2016 Hospitalization History Schizophrenia 09/26/16 Hospitalization History AMS, UTI, hyponatremia-[facility] 10/21/16 Hospitalization History stent placed 02/02/17 Hospitalization History stent placed 02/2017 Hospitalization History [facility]- Syncope, Dehydration and Hypotension. 06/08/2017
--- OUTSIDE RECORDS SUMMARY | 2018-09-05 12:52 | XMS REPORT ---
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 Active 8506083131585 Problem Diabetes E11.9 Active 46558904 Problem CVA (cerebral vascular accident) I63.9 Active 697057606 Problem Bipolar affective disorder, current episode mixed, current episode severity unspecified F31.60 Active 027994929 Problem Psychosis, unspecified psychosis type F29 Active [id number] ALLERGIES No Information ENCOUNTERS Encounter Location Date Diagnosis [facility] [id number] [place] [address] Dec, [place] [address] [address] Oct, [facility] [id number] [place] [address] Oct, [facility] [address] [address] Oct, [facility] [address] [address] Sep, [facility] [address] [address] Aug, Upper respiratory tract infection, unspecified type J06.9 ; Chronic idiopathic constipation K59.04 ; Fluid level behind tympanic membrane of both ears H65.93 and Abdominal pain R10.9 [facility] [id number] [place] [address] July, Diabetes E11.9 [facility] [address] [address] Jun, Dehydration E86.0 ; Diabetes E11.9 and Hyperglycemia R73.9 [facility] [address] [address] Jun, [place] [address] [address] Jun, Vertigo R42 ; Syncope, unspecified syncope type R55 ; Diabetes E11.9 and Hyperglycemia R73.9 [place] [id number] [place] [address] May, Psychosis, unspecified psychosis type F29 and Bipolar affective disorder, current episode mixed, current episode severity unspecified F31.60 [place] [id number] [place] [address] May, [place] [id number] [place] [address] May, Diabetes E11.9 [facility] [id number] [place] [id number] Apr, Dental examination Z01.20 and Dental caries K02.9 [place] [id number] [place] [address] Apr, Dental examination Z01.20 and Dental abscess K04.7 [place] [id number] [place] [address] Mar, Psychosis, unspecified psychosis type F29 and Bipolar affective disorder, current episode mixed, current episode severity unspecified F31.60 [facility] [id number] [place] [address] Mar, [facility] [id number] [place] [address] Feb, [facility] [id number] [place] [address] Feb, Left wrist pain M25.532 [facility] [id number] [place] [address] Jan, [facility] [id number] [place] [address] Jan, Psychosis, unspecified psychosis type F29 and Bipolar affective disorder, current episode mixed, current episode severity unspecified F31.60 [place] [id number] [place] [address] Jan, Diabetes E11.9 [facility] [id number] [place] [address] Jan, Left wrist pain M25.532 [place] [address] [address] Dec, Psychosis, unspecified psychosis type F29 and Bipolar affective disorder, current episode mixed, current episode severity unspecified F31.60 [place] [id number] [place] [address] Dec, Syncope, unspecified syncope type R55 ; Vertigo R42 ; Diabetes E11.9 ; Psychosis, unspecified psychosis type F29 and Fall, initial encounter W19.XXXA [place] [id number] [place] [address] Dec, Diabetes E11.9 ; Neck pain M54.2 and Vertigo R42 [place] [id number] [place] [address] Nov, [facility] [id number] [place] [address] Nov, [place] [id number] [place] [address] Nov, [place] [address] [address] Nov, Diabetes E11.9 [facility] [address], [place] [address] Nov, Diabetes E11.9 [facility] [address], [place] [address] Oct, [facility] [id number] [id number] Oct, [facility] [address], [place] [address] Oct, [facility] [id number] [place] [address] Oct, Bipolar affective disorder, current episode mixed, current episode severity unspecified F31.60 [facility] [id number] [id number] Sep, [facility] [address], [place] [address] Sep, Bipolar affective disorder, current episode mixed, current episode severity unspecified F31.60 [facility] [address], [place] [address] Sep, Acute maxillary sinusitis, recurrence not specified J01.00 [facility] [id number], [place] [address] Sep, Diabetes E11.9 [facility] [address], [place] [address] July, Diabetes E11.9 [facility] [id number], [place] [address] July, Diabetes E11.9 [facility] [address], [place] [address] Jun, [facility] [id number] [address] May, Bipolar affective disorder, current episode mixed, current episode severity unspecified F31.60 [facility] [id number] [place] [address] May, Acute non-recurrent maxillary sinusitis J01.00 [facility] [id number] [place] [address] 10 Apr, 2016 Psychosis, unspecified psychosis type F29 and Bipolar affective disorder, current episode mixed, current episode severity unspecified F31.60 [facility] [id number] [place] [address] 03 Apr, 2016 Dysuria R30.0 ; Other viral agents as the cause of diseases classified elsewhere B97.89 and Acute upper respiratory infection, unspecified J06.9 [place] [id number] [place] [address] Mar, Diabetes E11.9 ; Urine leukocytes R82.99 and Psychosis, unspecified psychosis type F29 [place] [id number] [place] [address] Mar, Diabetes E11.9 [place] [id number] [place] [address] Feb, [place] [id number] [place] [address] Jan, [place] [id number] [place] [address] Dec, Psychosis, unspecified psychosis type F29 [place] [id number] [place] [address] Dec, [facility] [id number] [place] [address] Dec, [place] [id number] [place] [address] Dec, Psychosis, unspecified psychosis type F29 [place] [address] [address] Nov, Schizoaffective disorder, unspecified type F25.9 [facility] [id number] [place] [address] Oct, [facility] [id number] [place] [address] Oct, Conjunctivitis of right eye, unspecified conjunctivitis type H10.9 [facility] [address] [address] Aug, [facility] [address] [id number] Jun, Encounter for dental examination Z01.20 [facility] [address] [address] Jun, Diabetes E11.9 and Bipolar affect, depressed F31.30 [facility] [address] [address] Jun, Other bipolar disorder F31.89 [facility] [id number] [place] [address] Jun, [facility] [id number] [place] [address] Apr, [facility] [id number] [place] [address] Dec, [facility] [id number] [place] [address] Dec, [facility] [id number] [place] [address] Sep, [facility] [address] [address] Jun, [facility] [id number] [place] [address] Jun, [facility] [id number] [place] [address] Mar, [facility] [place] [facility] [address] [id number] [place] [address] Mar, [facility] [place] [facility] [address] [id number] [place] [address] Nov, [facility] [place] [facility] [address] [id number] [place] [address] Nov, [facility] [place] [facility] [address] [id number] [place] [address] Sep, [facility] [place] [facility] [address] [id number] [place] [address] Sep, [facility] [place] [facility] [address] [id number] [place] [address] Sep, [facility] [place] [facility] [address] [id number] [place] [address] Sep, [facility] [place] [facility] [address] [id number] [place] [address] Sep, [facility] [place] [facility] [address] [id number] [place] [address] Aug, [facility] [place] [facility] [address] [id number] [place] [address] Aug, [facility] [place] [facility] [address] [id number] [place] [address] Aug, [facility] [place] [facility] [address] [id number] [place] [address] Aug, [facility] [place] [facility] [address] [id number] [place] [address] Aug, [facility] [place] [facility] [address] [id number] [place] [address] Aug, [facility] [place] [facility] [address] [id number] [place] [address] July, [facility] [place] [facility] [address] [id number] [place] [address] July, [facility] [address] [id number] [place] [address] Jun, [facility] [place] [facility] [address] [id number] [place] [address] Jun, [facility] [place] [facility] [address] [id number] [place] [address] Jun, [facility] [place] [facility] [address] [id number] [place] [address] Jun, [facility] [place] [facility] [address] [id number] [place] [address] Jun, [facility] [place] [facility] [address] [id number] [place] [address] Jun, [facility] [place] [facility] [address] [id number] [place] [address] Jun, [facility] [place] [facility] [address] [id number] [place] [address] Jun, [facility] [place] [facility] [address] [id number] [place] [address] May, [facility] [place] [facility] [address] [id number] [place] [address] May, [facility] [place] [facility] [address] [id number] [place] [address] May, [facility] [place] [facility] [address] [id number] [place] [address] May, [facility] [place] [facility] [address] [id number] [place] [address] May, [facility] [place] [facility] [address] [id number] [place] [address] May, [facility] [place] [facility] [address] [id number] [place] [address] May, [facility] [place] [facility] [address] [id number] [place] [address] May, [facility] [place] [facility] [address] [id number] [place] [address] May, [facility] [place] [facility] [address] [id number] [place] [address] Apr, [facility] [place] [facility] [address] [id number] [place] [address] Apr, [facility] [place] [facility] [address] [id number] [place] [address] Mar, [facility] [place] [facility] [address] [id number] [place] [address] Mar, [facility] [place] [facility] [address] [id number] [place] [address] Feb, [facility] [place] [facility] [address] [id number] [place] [address] Feb, [facility] [place] [facility] [address] [id number] [place] [address] Nov, [facility] [place] [facility] [address] [id number] [place] [address] Nov, [facility] [place] [facility] [address] [id number] [place] [address] Oct, [facility] [place] [facility] [address] [id number] [place] [address] Oct, [facility] [place] [facility] [address] [id number] [place] [address] Oct, [facility] [place] [facility] [address] [id number] [place] [address] Oct, [facility] [place] [facility] [address] [id number] [place] [address] Oct, [facility] [place] [facility] [address] [id number] [place] [address] 23 Sep, 2012 [facility] [address] [id number] [place] [address] Sep, [facility] [place] [facility] [address] [id number] [place] [address] Sep, [facility] [address] [id number] [place] [address] Sep, [facility] [place] [facility] [address] [id number] [place] [address] Aug, [facility] [address] [id number] [place] [address] Aug, [facility] [address] [id number] [place] [address] Aug, [facility] [address] [id number] [place] [address] Aug, [facility] [address] [id number] [place] [address] Jun, [facility] [place] [facility] [address] [id number] [place] [address] Jun, [facility] [address] [id number] [place] [address] Jun, [facility] [place] [facility] [address] [id number] [place] [address] Jun, [facility] [place] [facility] [address] [id number] [place] [address] 21 May, 2012 [facility] [place] [facility] [address] [id number] [place] [address] 18 May, 2012 [facility] [place] [facility] [address] [id number] [place] [address] 18 May, 2012 [facility] [place] [facility] [address] [id number] [place] [address] 13 May, 2012 [facility] [place] [facility] [address] [id number] [place] [address] 11 May, 2012 [facility] [place] [facility] [address] [id number] [place] [address] 04 May, 2012 [facility] [place] [facility] [address] [id number] [place] [address] 21 Apr, 2012 [facility] [place] [facility] [address] [id number] [place] [address] 20 Apr, 2012 [facility] [place] [facility] [address] [id number] [place] [address] Apr, [facility] [place] [facility] [address] [id number] [place] [address] Apr, [facility] [address] [id number] [place] [address] Apr, [facility] [address] [id number] [place] [address] Feb, [facility] [address] [id number] [place] [address] Feb, [facility] [address] [id number] [place] [address] Feb, [facility] [address] [id number] [place] [address] Feb, [facility] [place] [facility] [address] [id number] [place] [address] Feb, [facility] [place] [facility] [address] [id number] [place] [address] Feb, [facility] [place] [facility] [address] [id number] [place] [address] Feb, [facility] [place] [facility] [address] [id number] [place] [address] Feb, [facility] [place] [facility] [address] [id number] [place] [address] 14 Feb, 2012 [facility] [address] [id number] [place] [address] 14 Feb, 2012 [facility] [place] [facility] [address] [id number] [place] [address] 13 Feb, 2012 [facility] [address] [id number] [place] [address] 13 Feb, 2012 [facility] [place] [facility] [address] [id number] [place] [address] 12 Feb, 2012 [facility] [address] [id number] [place] [address] 12 Feb, 2012 [facility] [place] [facility] [address] [id number] [place] [address] 12 Feb, 2012 [facility] [address] [id number] [place] [address] 12 Feb, 2012 [facility] [place] [facility] [address] [id number] [place] [address] Feb, [facility] [place] [facility] [address] [id number] [place] [address] Feb, [facility] [place] [facility] [address] [id number] [place] [address] Feb, [facility] [place] [facility] [address] [id number] [place] [address] Feb, [facility] [place] [facility] [address] [id number] [place] [address] Feb, [facility] [place] [facility] [address] [id number] [place] [address] Feb, [facility] [place] [facility] [address] [id number] [place] [address] 04 Feb, 2012 [facility] [place] [facility] [address] [id number] [place] [address] 04 Feb, 2012 [facility] [place] [facility] [address] [id number] [place] [address] Feb, [facility] [place] [facility] [address] [id number] [place] [address] Feb, [facility] [place] [facility] [address] [id number] [place] [address] Jan, [facility] [place] [facility] [address] [id number] [place] [address] Jan, [facility] [place] [facility] [address] [id number] [place] [address] Dec, [facility] [place] [facility] [address] [id number] [place] [address] Dec, [facility] [place] [facility] [address] [id number] [place] [address] Dec, [facility] [place] [facility] [address] [id number] [place] [address] Dec, [facility] [place] [facility] [address] [id number] [place] [address] Nov, [facility] [place] [facility] [address] [id number] [place] [address] Nov, [facility] [place] [facility] [address] [id number] [place] [address] Nov, [facility] [place] [facility] [address] [id number] [place] [address] Nov, [facility] [place] [facility] [address] [id number] [place] [address] Oct, [facility] [place] [facility] [address] [id number] [place] [address] Oct, [facility] [place] [facility] [address] [id number] [place] [address] Sep, [facility] [place] [facility] [address] [id number] [place] [address] Sep, [facility] [place] [facility] [address] [id number] [place] [address] Sep, [facility] [place] [facility] [address] [id number] [place] [address] Aug, [facility] [place] [facility] [address] [id number] [place] [address] Aug, [facility] [place] [facility] [address] [id number] [place] [address] Aug, [facility] [place] [facility] [address] [id number] [place] [address] Aug, [facility] [place] [facility] [address] [id number] [place] [address] Aug, [facility] [place] [facility] [address] [id number] [place] [address] July, [facility] [place] [facility] [address] [id number] [place] [address] July, [facility] [place] [facility] [address] [id number] [place] [address] July, [facility] [place] [facility] [address] [id number] [place] [address] July, [facility] [place] [facility] [address] [id number] [place] [address] July, [facility] [place] [facility] [address] [id number], [place] [address] Jun, [facility] [place] [facility] [address] [id number] [place] [address] May, [facility] [place] [facility] [address] [id number] [place] [address] 16 Apr, 2011 [facility] [place] [facility] [address] [id number] [place] [address] 13 Apr, 2011 [facility] [place] [facility] [address] [id number] [place] [address] 13 Apr, 2011 [facility] [address] [id number] [place] [address] Mar, [facility] [address] [id number] [place] [address] Mar, [facility] [address] [id number] [place] [address] Mar, [facility] [address] [id number] [place] [address] Mar, [facility] [address] [id number] [place] [address] Mar, [facility] [address] [id number] [place] [address] Mar, [facility] [address] [id number] [place] [address] Mar, [facility] [address] [id number] [place] [address] Mar, [facility] [address] [id number] [place] [address] Feb, [facility] [address] [id number] [place] [address] Feb, [facility] [address] [id number] [place] [address] Feb, [facility] [address] [id number] [place] [address] Feb, [facility] [address] [id number] [place] [address] Feb, [facility] [address] [id number] [place] [address] Jan, [facility] [address] [id number] [place] [address] Jan, [facility] [address] [id number] [place] [address] Jan, [facility] [place] [facility] [address] [id number] [place] [address] Jan, [facility] [place] [facility] [address] [id number] [place] [address] 14 Dec, 2010 [facility] [place] [facility] [address] [id number] [place] [address] 14 Dec, 2010 [facility] [place] [facility] [address] [id number] [place] [address] Sep, [facility] [place] [facility] [address] [id number] [place] [address] July, [facility] [place] [facility] [address] [id number] [place] [address] Apr, [facility] [place] [facility] [address] [id number] [place] [address] Mar, [facility] [place] [facility] [address] [id number] [place] [address] Feb, [facility] [place] [facility] [address] [id number] [place] [address] Feb, [facility] [place] [facility] [address] [id number] [place] [address] Feb, [facility] [place] [facility] [address] [id number] [place] [address] Feb, [facility] [place] [facility] [address] [id number] [place] [address] 15 Feb, 2010 [facility] [place] [facility] [address] [id number] [place] [address] Feb, [facility] [place] [facility] [address] [id number] [place] [address] Feb, [facility] [place] [facility] [address] [id number] [place] [address] Dec, [facility] [address] [facility] [id number] [place] [address] Jan, [facility] [address] [facility] [id number], [place] [address] Apr, IMMUNIZATIONS No Known Immunizations SOCIAL HISTORY Never Assessed REASON FOR VISIT PALS-latuda PLAN OF CARE VITAL SIGNS MEDICATIONS Medication Instructions Dosage Frequency Start Date End Date Duration Status Latuda 80 MG TAKE ONE (1) TABLET BY MOUTH ONCE DAILY WITH FOOD 90 days Active RESULTS No Results PROCEDURES No [...] Hospitalization History Hyperglycemia 2012 Hospitalization History [facility] 11/28/2015-12/04/2015 2016 Hospitalization History Schizophrenia 09/26/16 Hospitalization History AMS, UTI, hyponatremia-[facility] 10/21/16 Hospitalization History stent placed 02/02/17 Hospitalization History stent placed 02/2017 Hospitalization History [facility]- Syncope, Dehydration and Hypotension. 06/08/2017
--- OUTSIDE RECORDS SUMMARY | 2018-09-05 12:52 | XMS REPORT ---
Author Author WOOD CALDERON Organization [facility] Address [address] [place] [address] Care Team Providers Care [employer] Manager Name Role Phone WOOD CALDERON Unavailable PROBLEMS Type Condition ICD9-CM Code XKR52-MF Code Onset Dates Condition Status SNOMED Code Problem Pacemaker Z95.0 Active 874014338 Problem Chronic idiopathic constipation K59.04 Active 57009332 Problem Coronary artery disease involving [place] coronary artery of [place] heart without angina pectoris I25.10 Active 4636343515470 Problem Diabetes E11.9 Active 77548461 Problem CVA (cerebral vascular accident) I63.9 Active 324669528 Problem Bipolar affective disorder, current episode mixed, current episode severity unspecified F31.60 Active 620568230 Problem Psychosis, unspecified psychosis type F29 Active [id number] ALLERGIES No Information ENCOUNTERS Encounter Location Date Diagnosis [facility] [id number] [place] [address] Dec, [facility] [id number] [place] [address] Nov, [facility] [id number] [place] [address] Oct, [facility] [id number] [place] [address] Oct, [facility] [id number] [place] [address] Oct, [facility] [address] [address] Sep, [facility] [id number] [place] [address] Aug, Upper respiratory tract infection, unspecified type J06.9 ; Chronic idiopathic constipation K59.04 ; Fluid level behind tympanic membrane of both ears H65.93 and Abdominal pain R10.9 [place] [address] [address] July, Diabetes E11.9 [place] [address] [address] Jun, Dehydration E86.0 ; Diabetes E11.9 and Hyperglycemia R73.9 [place] [address] [address] Jun, [place] [address] [address] Jun, Vertigo R42 ; Syncope, unspecified syncope type R55 ; Diabetes E11.9 and Hyperglycemia R73.9 [place] [address] [address] May, Psychosis, unspecified psychosis type F29 and Bipolar affective disorder, current episode mixed, current episode severity unspecified F31.60 [place] [address] [address] May, [place] [address] [address] May, Diabetes E11.9 [facility] [address] [id number] Apr, Dental examination Z01.20 and Dental caries K02.9 [place] [id number] [place] [address] Apr, Dental examination Z01.20 and Dental abscess K04.7 [place] [address] [address] Mar, Psychosis, unspecified psychosis type F29 and Bipolar affective disorder, current episode mixed, current episode severity unspecified F31.60 [place] [address] [address] Mar, [facility] [id number] [place] [address] Feb, [facility] [id number] [place] [address] Feb, Left wrist pain M25.532 [facility] [id number] [place] [address] Jan, [facility] [id number] [place] [address] Jan, Psychosis, unspecified psychosis type F29 and Bipolar affective disorder, current episode mixed, current episode severity unspecified F31.60 [place] [id number] [place] [address] Jan, Diabetes E11.9 [facility] [place] [id number] [place] [address] Jan, Left wrist pain M25.532 [place] [id number] [place] [address] Dec, Psychosis, unspecified psychosis type F29 and Bipolar affective disorder, current episode mixed, current episode severity unspecified F31.60 [place] [id number] [place] [address] Dec, Syncope, unspecified syncope type R55 ; Vertigo R42 ; Diabetes E11.9 ; Psychosis, unspecified psychosis type F29 and Fall, initial encounter W19.XXXA [place] [id number] [place] [address] Dec, Diabetes E11.9 ; Neck pain M54.2 and Vertigo R42 [place] [id number] [place] [address] Nov, [facility] [id number] [place] [address] Nov, [place] [id number] [place] [address] [place] [address] 08 Nov, 2016 [facility] [address] [address] 06 Nov, 2016 Diabetes E11.9 [facility] [address] [address] 05 Nov, 2016 Diabetes E11.9 [facility] [address] [address] Oct, [facility] [address] [id number] Oct, [facility] [address] [address] Oct, [facility] [address] [address] Oct, Bipolar affective disorder, current episode mixed, current episode severity unspecified F31.60 [facility] [address] [id number] Sep, [facility] [address] [address] Sep, Acute maxillary sinusitis, recurrence not specified J01.00 [facility] [address] [address] Sep, Bipolar affective disorder, current episode mixed, current episode severity unspecified F31.60 [facility] [address] [address] Sep, Diabetes E11.9 [facility] [address] [address] July, Diabetes E11.9 [facility] [address] [address] July, Diabetes E11.9 [facility] [address] [address] Jun, [facility] [id number] [place] [address] May, Bipolar affective disorder, current episode mixed, current episode severity unspecified F31.60 [facility] [id number] [place] [address] May, Acute non-recurrent maxillary sinusitis J01.00 [place] [id number] [place] [address] Apr, Psychosis, unspecified psychosis type F29 and Bipolar affective disorder, current episode mixed, current episode severity unspecified F31.60 [facility] [place] [id number] [place] [address] 03 Apr, 2016 Dysuria R30.0 ; Other viral agents as the cause of diseases classified elsewhere B97.89 and Acute upper respiratory infection, unspecified J06.9 [place] [id number] [place] [address] Mar, Diabetes E11.9 ; Urine leukocytes R82.99 and Psychosis, unspecified psychosis type F29 [place] [id number] [place] [address] Mar, Diabetes E11.9 [place] [id number] [place] [address] Feb, [place] [id number] [place] [address] Jan, [place] [id number] [place] [address] Dec, Psychosis, unspecified psychosis type F29 [place] [id number] [place] [address] Dec, [facility] [id number] [place] [address] Dec, [place] [id number] [place] [address] Dec, Psychosis, unspecified psychosis type F29 [facility] [address] [address] Nov, Schizoaffective disorder, unspecified type F25.9 [facility] [id number] [place] [address] 16 Oct, 2015 [facility] [id number] [place] [address] Oct, Conjunctivitis of right eye, unspecified conjunctivitis type H10.9 [facility] [id number] [place] [address] Aug, [facility] [id number] [place] [id number] Jun, Encounter for dental examination Z01.20 [facility] [id number] [place] [address] Jun, Diabetes E11.9 and Bipolar affect, depressed F31.30 [facility] [id number] [place] [address] Jun, Other bipolar disorder F31.89 [facility] [id number] [place] [address] Jun, [facility] [id number] [place] [address] Apr, [facility] [id number] [place] [address] Dec, [facility] [id number] [place] [address] Dec, [facility] [id number] [place] [address] Sep, [facility] [id number] [place] [address] Jun, [facility] [id number] [place] [address] Jun, [facility] [place] [facility] [address] [id number] [place] [address] Mar, [facility] [place] [facility] [address] [id number] [place] [address] Mar, [facility] [place] [facility] [address] [id number] [place] [address] Nov, [facility] [place] [facility] [address] [id number] [place] [address] Nov, [facility] [place] [facility] [address] [id number] [place] [address] Sep, [facility] [place] [facility] [address] [id number] [place] [address] Sep, [facility] [place] [facility] [address] [facility] [id number] [place] [address] Sep, [facility] [place] [facility] [address] [id number] [place] [address] Sep, [facility] [place] [facility] [address] [id number] [place] [address] Sep, [facility] [place] [facility] [address] [facility] [id number] [place] [address] Aug, [facility] [place] [facility] [address] [id number] [place] [address] Aug, [facility] [place] [facility] [address] [id number] [address] Aug, [facility] [place] [facility] [address] [id number] [place] [address] Aug, [facility] [place] [facility] [address] [id number] [place] [address] Aug, [facility] [place] [facility] [address] [id number] [place] [address] Aug, [facility] [place] [facility] [address] [id number] [place] [address] July, [facility] [place] [facility] [address] [id number] [place] [address] July, [facility] [place] [facility] [address] [id number] [place] [address] Jun, [facility] [place] [facility] [address] [id number] [place] [address] Jun, [facility] [place] [facility] [address] [id number] [place] [address] Jun, [facility] [place] [facility] [address] [id number] [place] [address] Jun, [facility] [place] [facility] [address] [id number] [place] [address] Jun, [facility] [place] [facility] [address] [id number] [place] [address] Jun, [facility] [place] [facility] [address] [id number] [place] [address] Jun, [facility] [place] [facility] [address] [id number] [place] [address] Jun, [facility] [place] [facility] [address] [id number] [place] [address] May, [facility] [place] [facility] [address] [id number] [place] [address] May, [facility] [place] [facility] [address] [id number] [place] [address] 24 May, 2013 [facility] [place] [facility] [address] [id number] [place] [address] May, [facility] [place] [facility] [address] [id number] [place] [address] May, [facility] [place] [facility] [address] [id number] [place] [address] May, [facility] [place] [facility] [address] [id number] [place] [address] May, [facility] [place] [facility] [address] [id number] [place] [address] May, [facility] [place] [facility] [address] [id number] [place] [address] May, [facility] [place] [facility] [address] [id number] [place] [address] Apr, [facility] [place] [facility] [address] [id number] [place] [address] Apr, [facility] [place] [facility] [address] [id number] [place] [address] Mar, [facility] [place] [facility] [address] [id number] [place] [address] Mar, [facility] [place] [facility] [address] [id number] [place] [address] Feb, [facility] [place] [facility] [address] [id number] [place] [address] Feb, [facility] [place] [facility] [address] [id number] [place] [address] Nov, [facility] [place] [facility] [address] [id number] [place] [address] Nov, [facility] [place] [facility] [address] [id number] [place] [address] Oct, [facility] [place] [facility] [address] [id number] [place] [address] Oct, [facility] [place] [facility] [address] [id number] [place] [address] Oct, [facility] [place] [facility] [address] [id number] [place] [address] Oct, [facility] [place] [facility] [address] [id number] [place] [address] Oct, [facility] [address] [id number] [place] [address] Sep, [facility] [address] [id number] [place] [address] Sep, [facility] [address] [id number] [place] [address] Sep, [facility] [address] [id number] [place] [address] Sep, [facility] [address] [id number] [place] [address] Aug, [facility] [address] [id number] [place] [address] Aug, [facility] [address] [id number] [place] [address] Aug, [facility] [address] [id number] [place] [address] Aug, [facility] [address] [id number] [place] [address] Jun, [facility] [address] [id number] [place] [address] 18 Jun, 2012 [facility] [address] [id number] [place] [address] Jun, [facility] [address] [id number] [place] [address] Jun, [facility] [address] [id number] [place] [address] May, [facility] [address] [id number] [place] [address] May, [facility] [address] [id number] [place] [address] May, [facility] [place] [facility] [address] [id number] [place] [address] 13 May, 2012 [facility] [place] [facility] [address] [id number] [place] [address] 11 May, 2012 [facility] [address] [id number] [place] [address] 04 May, 2012 [facility] [place] [facility] [address] [id number] [place] [address] 21 Apr, 2012 [facility] [address] [id number] [place] [address] 20 Apr, 2012 [facility] [place] [facility] [address] [id number] [place] [address] 19 Apr, 2012 [facility] [address] [id number] [place] [address] 19 Apr, 2012 [facility] [address] [id number] [place] [address] 19 Apr, 2012 [facility] [address] [id number] [place] [address] Feb, [facility] [address] [id number] [place] [address] Feb, [facility] [address] [id number] [place] [address] Feb, [facility] [place] [facility] [address] [id number] [address] Feb, [facility] [place] [facility] [address] [id number] [place] [address] Feb, [facility] [place] [facility] [address] [id number] [place] [address] 19 Feb, 2012 [facility] [place] [facility] [address] [id number] [place] [address] 19 Feb, 2012 [facility] [place] [facility] [address] [id number] [place] [address] 19 Feb, 2012 [facility] [address] [id number] [place] [address] 14 Feb, 2012 [facility] [place] [facility] [address] [id number] [place] [address] 14 Feb, 2012 [facility] [address] [id number] [place] [address] 13 Feb, 2012 [facility] [place] [facility] [address] [id number] [place] [address] 13 Feb, 2012 [facility] [address] [id number] [place] [address] 12 Feb, 2012 [facility] [place] [facility] [address] [id number] [place] [address] 12 Feb, 2012 [facility] [address] [id number] [place] [address] 12 Feb, 2012 [facility] [place] [facility] [address] [id number] [place] [address] 12 Feb, 2012 [facility] [place] [facility] [address] [id number] [place] [address] Feb, [facility] [place] [facility] [address] [id number] [place] [address] Feb, [facility] [place] [facility] [address] [id number] [place] [address] Feb, [facility] [place] [facility] [address] [id number] [place] [address] Feb, [facility] [place] [facility] [address] [id number] [place] [address] Feb, [facility] [place] [facility] [address] [id number] [place] [address] Feb, [facility] [place] [facility] [address] [id number] [place] [address] 04 Feb, 2012 [facility] [place] [facility] [address] [id number] [place] [address] Feb, [facility] [place] [facility] [address] [id number] [place] [address] Feb, [facility] [place] [facility] [address] [id number] [place] [address] Feb, [facility] [place] [facility] [address] [id number] [place] [address] Jan, [facility] [place] [facility] [address] [id number] [place] [address] Jan, [facility] [place] [facility] [address] [id number] [place] [address] Dec, [facility] [place] [facility] [address] [id number] [place] [address] Dec, [facility] [place] [facility] [address] [id number] [place] [address] Dec, [facility] [place] [facility] [address] [id number] [place] [address] Dec, [facility] [place] [facility] [address] [id number] [place] [address] Nov, [facility] [place] [facility] [address] [id number] [place] [address] Nov, [facility] [place] [facility] [address] [id number] [place] [address] Nov, [facility] [place] [facility] [address] [id number] [place] [address] Nov, [facility] [place] [facility] [address] [id number] [place] [address] Oct, [facility] [place] [facility] [address] [id number] [place] [address] Oct, [facility] [place] [facility] [address] [id number] [place] [address] Sep, [facility] [place] [facility] [address] [id number] [place] [address] Sep, [facility] [place] [facility] [address] [id number] [place] [address] Sep, [facility] [place] [facility] [address] [id number] [place] [address] Aug, [facility] [place] [facility] [address] [id number] [place] [address] Aug, [facility] [place] [facility] [address] [id number] [place] [address] Aug, [facility] [place] [facility] [address] [id number] [place] [address] Aug, [facility] [place] [facility] [address] [id number] [place] [address] Aug, [facility] [place] [facility] [address] [id number] [place] [address] July, [facility] [place] [facility] [address] [id number] [place] [address] July, [facility] [place] [facility] [address] [id number] [place] [address] July, [facility] [place] [facility] [address] [id number] [place] [address] July, [facility] [place] [facility] [address] [id number] [place] [address] July, [facility] [place] [facility] [address] [id number] [place] [address] Jun, [facility] [place] [facility] [address] [id number] [place] [address] May, [facility] [place] [facility] [address] [id number] [place] [address] Apr, [facility] [place] [facility] [address] [id number] [place] [address] 13 Apr, 2011 [facility] [address] [id number] [place] [address] 13 Apr, 2011 [facility] [address] [id number] [place] [address] 31 Mar, 2011 [facility] [address] [id number] [place] [address] Mar, [facility] [address] [id number] [place] [address] Mar, [facility] [address] [id number] [place] [address] Mar, [facility] [address] [id number] [place] [address] Mar, [facility] [address] [id number] [place] [address] Mar, [facility] [address] [id number] [place] [address] 16 Mar, 2011 [facility] [address] [id number] [place] [address] Mar, [facility] [address] [id number] [place] [address] Feb, [facility] [address] [id number] [place] [address] Feb, [facility] [address] [id number] [place] [address] Feb, [facility] [address] [id number] [place] [address] Feb, [facility] [address] [id number] [place] [address] Feb, [facility] [address] [id number] [place] [address] Jan, [facility] [place] [facility] [address] [id number] [place] [address] Jan, [facility] [place] [facility] [address] [id number] [place] [address] Jan, [facility] [place] [facility] [address] [id number] [place] [address] Jan, [facility] [place] [facility] [address] [id number] [place] [address] 14 Dec, 2010 [facility] [place] [facility] [address] [id number] [place] [address] 14 Dec, 2010 [facility] [place] [facility] [address] [id number] [place] [address] Sep, [facility] [place] [facility] [address] [id number] [place] [address] July, [facility] [place] [facility] [address] [id number] [place] [address] Apr, [facility] [place] [facility] [address] [id number] [place] [address] Mar, [facility] [place] [facility] [address] [id number] [place] [address] Feb, [facility] [place] [facility] [address] [id number] [address] Feb, [facility] [place] [facility] [address] [id number], [place] [address] Feb, [facility] [place] [facility] [address] [id number] [place] [address] Feb, [facility] [place] [facility] [address] [id number] [place] [address] 15 Feb, 2010 [facility] [place] [facility] [address] [id number] [place] [address] Feb, [facility] [place] [facility] [address] [facility] [id number] [place] [address] Feb, [facility] [address] [facility] [id number][place] [address] Dec, [facility] [address] [facility] [id number], [place] [address] Jan, [facility] [address] [facility] [id number], [place] [address] Apr, IMMUNIZATIONS No Known Immunizations SOCIAL HISTORY Never Assessed REASON FOR VISIT REFERRAL PLAN OF CARE VITAL SIGNS MEDICATIONS Unknown [...] History Schizophrenia 09/26/16 Hospitalization History AMS, UTI, hyponatremia-[facility] 10/21/16 Hospitalization History stent placed 02/02/17 Hospitalization History stent placed 02/2017 Hospitalization History [facility], [place]- Syncope, Dehydration and Hypotension. 06/08/2017
--- OUTSIDE RECORDS SUMMARY | 2018-09-05 12:53 | XMS REPORT ---
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.10 Active 9288682861805 Problem Diabetes E11.9 Active 76237246 Problem CVA (cerebral vascular accident) I63.9 Active 502210550 Problem Bipolar affective disorder, current episode mixed, current episode severity unspecified F31.60 Active 897909940 Problem Psychosis, unspecified psychosis type F29 Active [id number] ALLERGIES No Information ENCOUNTERS Encounter Location Date Diagnosis [facility] [address] [address] Oct, [facility] [address] [address] Oct, [facility] [address] [address] Sep, [facility] [address] [address] Aug, Upper respiratory tract infection, unspecified type J06.9 ; Chronic idiopathic constipation K59.04 ; Fluid level behind tympanic membrane of both ears H65.93 and Abdominal pain R10.9 [facility] [address] [address] July, Diabetes E11.9 [facility] [address] [address] Jun, Dehydration E86.0 ; Diabetes E11.9 and Hyperglycemia R73.9 [facility] [id number] [place] [address] Jun, [facility] [id number] [place] [address] Jun, Vertigo R42 ; Syncope, unspecified syncope type R55 ; Diabetes E11.9 and Hyperglycemia R73.9 [facility] [id number] [place] [address] May, Psychosis, unspecified psychosis type F29 and Bipolar affective disorder, current episode mixed, current episode severity unspecified F31.60 [facility] [id number] [place] [address] May, [facility] [address] [address] May, Diabetes E11.9 [facility] [address] [id number] Apr, Dental examination Z01.20 and Dental caries K02.9 [facility] [id number] [place] [address] Apr, Dental examination Z01.20 and Dental abscess K04.7 [facility] [id number] [place] [address] Mar, Psychosis, unspecified psychosis type F29 and Bipolar affective disorder, current episode mixed, current episode severity unspecified F31.60 [facility] [id number] [place] [address] Mar, [facility] [address] [address] Feb, [facility] [id number] [place] [address] Feb, Left wrist pain M25.532 [facility] [id number] [place] [address] Jan, [facility] [id number] [place] [address] Jan, Psychosis, unspecified psychosis type F29 and Bipolar affective disorder, current episode mixed, current episode severity unspecified F31.60 [facility] [id number] [place] [address] Jan, Diabetes E11.9 [facility] [id number] [place] [address] Jan, Left wrist pain M25.532 [facility] [place] [id number] [place] [address] Dec, Psychosis, unspecified psychosis type F29 and Bipolar affective disorder, current episode mixed, current episode severity unspecified F31.60 [facility] [id number] [place] [address] Dec, Syncope, unspecified syncope type R55 ; Vertigo R42 ; Diabetes E11.9 ; Psychosis, unspecified psychosis type F29 and Fall, initial encounter W19.XXXA [facility] [id number] [place] [address] Dec, Diabetes E11.9 ; Neck pain M54.2 and Vertigo R42 [facility] [address] [id number] [address] Nov, [facility] [id number] [place] [address] Nov, [facility] [id number] [place] [address] Nov, [facility] [id number] [place] [address] Nov, Diabetes E11.9 [facility] [id number] [place] [address] Nov, Diabetes E11.9 [facility] [address] [id number] [address] Oct, [facility] [address] [id number] [id number] Oct, [facility] [address] [facility] [id number] [address] Oct, [facility] [address] [address] Oct, Bipolar affective disorder, current episode mixed, current episode severity unspecified F31.60 [facility] [address] [id number] [id number] Sep, [facility] [address] [address] Sep, Bipolar affective disorder, current episode mixed, current episode severity unspecified F31.60 [facility] [address], [place] [address] Sep, Acute maxillary sinusitis, recurrence not specified J01.00 [facility] [address] [id number] [address] Sep, Diabetes E11.9 [facility] [address] [address] July, Diabetes E11.9 [facility] [address], [place] [address] July, Diabetes E11.9 [facility] [address] [id number] [address] Jun, [facility] [address] [id number] [address] May, Bipolar affective disorder, current episode mixed, current episode severity unspecified F31.60 [facility] [address] [id number] [address] May, Acute non-recurrent maxillary sinusitis J01.00 [facility] [id number] [place] [address] 10 Apr, 2016 Psychosis, unspecified psychosis type F29 and Bipolar affective disorder, current episode mixed, current episode severity unspecified F31.60 [facility] [id number] [place] [address] 03 Apr, 2016 Dysuria R30.0 ; Other viral agents as the cause of diseases classified elsewhere B97.89 and Acute upper respiratory infection, unspecified J06.9 [facility] [id number] [place] [address] Mar, Diabetes E11.9 ; Urine leukocytes R82.99 and Psychosis, unspecified psychosis type F29 [facility] [id number] [place] [address] Mar, Diabetes E11.9 [facility] [id number] [place] [address] Feb, [facility] [id number] [place] [address] Jan, [facility] [id number] [place] [address] Dec, Psychosis, unspecified psychosis type F29 [facility] [id number] [place] [address] Dec, [facility] [id number] [place] [address] Dec, [facility] [id number] [place] [address] Dec, Psychosis, unspecified psychosis type F29 [facility] [id number] [place] [address] Nov, Schizoaffective disorder, unspecified type F25.9 [facility] [id number] [place] [address] Oct, [facility] [id number] [place] [address] Oct, Conjunctivitis of right eye, unspecified conjunctivitis type H10.9 [facility] [id number] [place] [address] Aug, [facility] [id number] [place] [id number] Jun, Encounter for dental examination Z01.20 [facility] [address] [address] Jun, Diabetes E11.9 and Bipolar affect, depressed F31.30 [facility] [address] [address] Jun, Other bipolar disorder F31.89 [facility] [id number] [place] [address] Jun, [facility] [address] [address] Apr, [facility] [id number] [place] [address] Dec, [facility] [id number] [place] [address] Dec, [facility] [id number] [place] [address] Sep, [facility] [id number] [place] [address] Jun, [facility] [id number] [place] [address] Jun, [facility] [id number] [place] [address] Mar, [facility] [id number] [place] [address] Mar, [facility] [id number] [place] [address] Nov, [facility] [place] [facility] [address] [id number] [place] [address] Nov, [facility] [place] [facility] [address] [id number] [place] [address] Sep, [facility] [place] [facility] [address] [id number] [place] [address] Sep, [facility] [place] [facility] [address] [id number] [place] [address] Sep, [facility] [place] [facility] [address] [id number] [place] [address] Sep, [facility] [place] [facility] [address] [id number] [place] [address] Sep, [facility] [place] [facility] [address] [id number] [place] [address] Aug, [facility] [place] [facility] [address] [id number] [place] [address] Aug, [facility] [place] [facility] [address] [id number] [place] [address] Aug, [facility] [place] [facility] [address] [id number] [place] [address] Aug, [facility] [place] [facility] [address] [id number] [place] [address] Aug, [facility] [place] [facility] [address] [id number], [place] [address] Aug, [facility] [place] [facility] [address] [id number] [place] [address] July, [facility] [place] [facility] [address] [id number] [place] [address] July, [facility] [place] [facility] [address] [id number] [place] [address] Jun, [facility] [place] [facility] [address] [id number] [place] [address] 24 Jun, 2013 [facility] [place] [facility] [address] [id number] [place] [address] Jun, [facility] [place] [facility] [address] [id number] [place] [address] Jun, [facility] [place] [facility] [address] [id number] [place] [address] Jun, [facility] [place] [facility] [address] [id number] [place] [address] Jun, [facility] [place] [facility] [address] [id number] [place] [address] Jun, [facility] [place] [facility] [address] [id number] [place] [address] Jun, [facility] [place] [facility] [address] [id number] [place] [address] May, [facility] [place] [facility] [address] [id number] [place] [address] May, [facility] [place] [facility] [address] [id number] [place] [address] May, [facility] [place] [facility] [address] [id number] [place] [address] May, [facility] [place] [facility] [address] [id number] [place] [address] May, [facility] [place] [facility] [address] [id number] [place] [address] May, [facility] [place] [facility] [address] [id number] [place] [address] May, [facility] [place] [facility] [address] [id number] [place] [address] May, [facility] [place] [facility] [address] [id number] [place] [address] May, [facility] [place] [facility] [address] [id number] [place] [address] Apr, [facility] [place] [facility] [address] [id number] [place] [address] Apr, [facility] [place] [facility] [address] [id number] [place] [address] Mar, [facility] [place] [facility] [address] [id number] [place] [address] Mar, [facility] [place] [facility] [address] [id number] [place] [address] Feb, [facility] [place] [facility] [address] [id number] [place] [address] Feb, [facility] [place] [facility] [address] [id number] [place] [address] Nov, [facility] [place] [facility] [address] [id number] [place] [address] Nov, [facility] [place] [facility] [address] [id number] [place] [address] Oct, [facility] [place] [facility] [address] [id number] [place] [address] Oct, [facility] [place] [facility] [address] [id number] [place] [address] Oct, [facility] [place] [facility] [address] [id number], [place] [address] Oct, [facility] [place] [facility] [address] [id number] [place] [address] Oct, [facility] [place] [facility] [address] [id number] [place] [address] Sep, [facility] [place] [facility] [address] [id number] [place] [address] Sep, [facility] [place] [facility] [address] [id number] [place] [address] 10 Sep, 2012 [facility] [place] [facility] [address] [id number] [place] [address] 02 Sep, 2012 [facility] [address] [id number] [place] [address] Aug, [facility] [address] [id number] [place] [address] Aug, [facility] [address] [id number] [place] [address] Aug, [facility] [address] [id number] [place] [address] Aug, [facility] [address] [id number] [place] [address] Jun, [facility] [address] [id number] [place] [address] 18 Jun, 2012 [facility] [address] [id number] [place] [address] 17 Jun, [address] [facility] [address] [id number] [place] [address] Jun, [facility] [address] [id number] [place] [address] May, [facility] [address] [id number] [place] [address] 18 May, 2012 [facility] [address] [id number] [place] [address] 18 May, 2012 [facility] [address] [id number] [place] [address] 13 May, 2012 [facility] [address] [id number] [place] [address] 11 May, [address] [facility] [address] [id number] [place] [address] 04 May, 2012 [facility] [place] [facility] [address] [id number] [place] [address] 21 Apr, 2012 [facility] [place] [facility] [address] [id number] [place] [address] 20 Apr, 2012 [facility] [address] [id number] [place] [address] 19 Apr, 2012 [facility] [place] [facility] [address] [id number] [place] [address] 19 Apr, 2012 [facility] [address] [id number] [place] [address] 19 Apr, 2012 [facility] [address] [id number] [place] [address] 20 Feb, 2012 [facility] [address] [id number] [place] [address] 20 Feb, 2012 [facility] [address] [id number] [place] [address] 19 Feb, 2012 [facility] [address] [id number] [place] [address] 19 Feb, 2012 [facility] [address] [id number] [place] [address] 19 Feb, [address] [facility] [address] [id number], [place] [address] 19 Feb, 2012 [facility] [place] [facility] [address] [id number], [place] [address] 19 Feb, 2012 [facility] [place] [facility] [address] [id number] [place] [address] 19 Feb, 2012 [facility] [place] [facility] [address] [id number] [place] [address] 14 Feb, 2012 [facility] [place] [facility] [address] [id number] [place] [address] 14 Feb, 2012 [facility] [place] [facility] [address] [id number] [place] [address] 13 Feb, 2012 [facility] [address] [id number] [place] [address] 13 Feb, 2012 [facility] [place] [facility] [address] [id number] [place] [address] Feb, [facility] [address] [id number] [place] [address] Feb, [facility] [place] [facility] [address] [id number] [place] [address] Feb, [facility] [address] [id number] [place] [address] Feb, [facility] [place] [facility] [address] [id number] [place] [address] Feb, [facility] [address] [id number] [place] [address] Feb, [facility] [place] [facility] [address] [id number] [place] [address] Feb, [facility] [place] [facility] [address] [id number] [place] [address] Feb, [facility] [place] [facility] [address] [id number] [place] [address] Feb, [facility] [place] [facility] [address] [id number] [place] [address] Feb, [facility] [place] [facility] [address] [id number] [place] [address] Feb, [facility] [place] [facility] [address] [id number] [place] [address] Feb, [facility] [place] [facility] [address] [id number] [place] [address] Feb, [facility] [place] [facility] [address] [id number] [place] [address] Feb, [facility] [place] [facility] [address] [id number] [place] [address] Jan, [facility] [place] [facility] [address] [id number] [place] [address] Jan, [facility] [place] [facility] [address] [id number] [place] [address] Dec, [facility] [place] [facility] [address] [id number] [place] [address] Dec, [facility] [place] [facility] [address] [id number] [place] [address] Dec, [facility] [place] [facility] [address] [id number] [place] [address] Dec, [facility] [place] [facility] [address] [id number] [place] [address] Nov, [facility] [place] [facility] [address] [id number] [place] [address] Nov, [facility] [place] [facility] [address] [id number] [place] [address] Nov, [facility] [place] [facility] [address] [id number] [place] [address] Nov, [facility] [place] [facility] [address] [id number] [place] [address] Oct, [facility] [place] [facility] [address] [id number] [place] [address] Oct, [facility] [place] [facility] [address] [id number] [place] [address] Sep, [facility] [place] [facility] [address] [id number] [place] [address] Sep, [facility] [place] [facility] [address] [id number] [place] [address] Sep, [facility] [place] [facility] [address] [id number] [place] [address] Aug, [facility] [place] [facility] [address] [id number] [place] [address] Aug, [facility] [place] [facility] [address] [id number] [place] [address] Aug, [facility] [place] [facility] [address] [id number] [place] [address] Aug, [facility] [place] [facility] [address] [id number] [place] [address] Aug, [facility] [place] [facility] [address] [id number] [place] [address] July, [facility] [place] [facility] [address] [id number] [place] [address] July, [facility] [place] [facility] [address] [id number] [place] [address] July, [facility] [place] [facility] [address] [id number] [place] [address] July, [facility] [place] [facility] [address] [id number] [place] [address] July, [facility] [place] [facility] [address] [id number] [place] [address] Jun, [facility] [place] [facility] [address] [id number] [place] [address] May, [facility] [place] [facility] [address] [id number] [place] [address] 16 Apr, 2011 [facility] [place] [facility] [address] [id number] [place] [address] Apr, [facility] [place] [facility] [address] [id number] [place] [address] Apr, [facility] [place] [facility] [address] [id number] [place] [address] Mar, [facility] [place] [facility] [address] [id number] [place] [address] 31 Mar, [address] [facility] [address] [id number] [place] [address] Mar, [facility] [place] [facility] [address] [id number] [place] [address] Mar, [facility] [address] [id number] [place] [address] Mar, [facility] [place] [facility] [address] [id number] [place] [address] 17 Mar, 2011 [facility] [address] [id number] [place] [address] Mar, [facility] [address] [id number] [place] [address] Mar, [facility] [address] [id number] [place] [address] Feb, [facility] [address] [id number] [place] [address] Feb, [facility] [address] [id number] [place] [address] Feb, [facility] [address] [id number] [place] [address] Feb, [facility] [place] [facility] [address] [id number] [place] [address] Feb, [facility] [place] [facility] [address] [id number] [place] [address] Jan, [facility] [place] [facility] [address] [id number] [place] [address] Jan, [facility] [place] [facility] [address] [id number] [place] [address] Jan, [facility] [place] [facility] [address] [id number] [place] [address] Jan, [facility] [address] [id number] [place] [address] 14 Dec, 2010 [facility] [place] [facility] [address] [id number] [place] [address] 14 Dec, 2010 [facility] [place] [facility] [address] [id number] [place] [address] 13 Sep, 2010 [facility] [place] [facility] [address] [id number] [place] [address] July, [facility] [place] [facility] [address] [id number] [place] [address] Apr, [facility] [place] [facility] [address] [id number] [place] [address] Mar, [facility] [place] [facility] [address] [id number] [place] [address] Feb, [facility] [place] [facility] [address] [id number] [place] [address] Feb, [facility] [place] [facility] [address] [id number] [place] [address] Feb, [facility] [place] [facility] [address] [id number] [place] [address] Feb, [facility] [place] [facility] [address] [id number] [place] [address] 15 Feb, 2010 [facility] [place] [facility] [address] [id number], [place] [address] Feb, [facility] [place] [facility] [address] [id number] [place] [address] Feb, [facility] [place] [facility] [address] [id number] [place] [address] Dec, [facility] [place] [facility] [address] [id number] [place] [address] Jan, [facility] [place] [facility] [address] [facility] [id number] [place] [address] 14 Apr, 2008 IMMUNIZATIONS No Known Immunizations SOCIAL HISTORY Never Assessed REASON FOR VISIT Medication refill request PLAN OF CARE VITAL SIGNS MEDICATIONS Medication Instructions Dosage Frequency Start Date End Date Duration Status NovoLog 100 UNIT/ML Subcutaneous before meals 10 units Active RESULTS No Results PROCEDURES No Known [...] Surgery Hospitalization History Hyperglycemia 2012 Hospitalization History [facility] Unit 11/28/2015-12/04/2015 2016 Hospitalization History Schizophrenia 09/26/16 Hospitalization History AMS, UTI, hyponatremia-VC 10/21/16 Hospitalization History stent placed 02/02/17 Hospitalization History stent placed 02/2017 Hospitalization History [facility]- Syncope, Dehydration and Hypotension. 06/08/2017
--- OUTSIDE RECORDS SUMMARY | 2018-09-05 12:53 | XMS REPORT ---
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 Active 3009541084506 Problem Diabetes E11.9 Active 69497060 Problem CVA (cerebral vascular accident) I63.9 Active 271054119 Problem Bipolar affective disorder, current episode mixed, current episode severity unspecified F31.60 Active 093460142 Problem Psychosis, unspecified psychosis type F29 Active 26592358 ALLERGIES Substance Reaction Event Type Date Status Codeine Sulfate Unknown Drug Allergy Aug, Active Boissevain Unknown Non Drug Allergy Aug, Active Tejeda Unknown Non Drug Allergy Aug, Active Pork Unknown Non Drug Allergy Aug, Active Yeast Unknown Non Drug Allergy Aug, Active Jessup Unknown Non Drug Allergy Aug, Active ENCOUNTERS Encounter Location Date Diagnosis [facility] [facility] [address] [address] Oct, [facility] [place] [facility] [id number] [place] [address] Oct, [facility] [place] [facility] [id number] [place] [address] Oct, [facility] [place] [facility] [id number] [place] [address] Sep, [facility] WALK IN [facility] [id number] [address] Aug, Upper respiratory tract infection, unspecified type J06.9 ; Chronic idiopathic constipation K59.04 ; Fluid level behind tympanic membrane of both ears H65.93 and Abdominal pain R10.9 [place] [address] [address] July, Diabetes E11.9 [place] [address] [address] Jun, Dehydration E86.0 ; Diabetes E11.9 and Hyperglycemia R73.9 [place] [address] [address] Jun, [place] [address] [address] Jun, Vertigo R42 ; Syncope, unspecified syncope type R55 ; Diabetes E11.9 and Hyperglycemia R73.9 [place] [address] [address] May, Psychosis, unspecified psychosis type F29 and Bipolar affective disorder, current episode mixed, current episode severity unspecified F31.60 [place] [address] [address] May, [place] [address] [address] May, Diabetes E11.9 [facility] [address] [id number] Apr, Dental examination Z01.20 and Dental caries K02.9 [place] [id number] [place] [address] Apr, Dental examination Z01.20 and Dental abscess K04.7 [place] [address] [address] Mar, Psychosis, unspecified psychosis type F29 and Bipolar affective disorder, current episode mixed, current episode severity unspecified F31.60 [place] [address] [address] Mar, [facility] [place] [facility] [id number] [place] [address] Feb, [facility] [place] [facility] [id number] [place] [address] Feb, Left wrist pain M25.532 [facility] [place] [facility] [id number] [place] [address] Jan, [facility] [facility] [id number] [place] [address] Jan, Psychosis, unspecified psychosis type F29 and Bipolar affective disorder, current episode mixed, current episode severity unspecified F31.60 [place] [id number] [place] [address] Jan, Diabetes E11.9 [facility] [id number] [place] [address] Jan, Left wrist pain M25.532 [place] [id number] [place] [address] Dec, Psychosis, unspecified psychosis type F29 and Bipolar affective disorder, current episode mixed, current episode severity unspecified F31.60 [place] [id number] [place] [address] Dec, Syncope, unspecified syncope type R55 ; Vertigo R42 ; Diabetes E11.9 ; Psychosis, unspecified psychosis type F29 and Fall, initial encounter W19.XXXA [place] [id number] [place] [address] Dec, Diabetes E11.9 ; Neck pain M54.2 and Vertigo R42 [place] [id number] [place] [address] Nov, [facility] [id number] [place] [address] Nov, [place] [address] [place] [address] 08 Nov, 2016 [facility] [facility] [address] [facility] [id number] [address] 06 Nov, 2016 Diabetes E11.9 [facility] [place] [facility] [address] [facility] [id number] [address] 05 Nov, 2016 Diabetes E11.9 [facility] [place] [facility] [address], [place] [address] Oct, [facility] [address] [id number] [id number] Oct, [facility] [place] [facility] [address], [place] [address] Oct, [facility] [place] [facility] [address], [place] [address] Oct, Bipolar affective disorder, current episode mixed, current episode severity unspecified F31.60 [facility] [id number] [id number] Sep, [facility] [place] [facility] [id number] [address] Sep, Bipolar affective disorder, current episode mixed, current episode severity unspecified F31.60 [facility] [id number] [address] Sep, Acute maxillary sinusitis, recurrence not specified J01.00 [facility] [place] [facility] [id number] [address] Sep, Diabetes E11.9 [facility] [place] [facility] [id number] [address] July, Diabetes E11.9 [facility] [place] [facility] [address] [address] July, Diabetes E11.9 [facility] [place] [facility] [id number] [address] Jun, [facility] [place] [facility] [id number] [place] [address] May, Bipolar affective disorder, current episode mixed, current episode severity unspecified F31.60 [facility] [id number] [place] [address] May, Acute non-recurrent maxillary sinusitis J01.00 [place] [id number] [place] [address] 10 Apr, 2016 Psychosis, unspecified psychosis type F29 and Bipolar affective disorder, current episode mixed, current episode severity unspecified F31.60 [facility] WALK IN [place] [id number] [place] [address] 03 Apr, 2016 Dysuria R30.0 ; Other viral agents as the cause of diseases classified elsewhere B97.89 and Acute upper respiratory infection, unspecified J06.9 [place] [id number] [place] [address] Mar, Diabetes E11.9 ; Urine leukocytes R82.99 and Psychosis, unspecified psychosis type F29 [place] [id number] [place] [address] Mar, Diabetes E11.9 [place] [id number] [place] [address] Feb, [place] [id number] [place] [address] Jan, [place] [id number] [place] [address] Dec, Psychosis, unspecified psychosis type F29 [place] [id number] [place] [address] Dec, [facility] WALK IN [facility] [id number] [place] [address] Dec, [place] [id number] [place] [address] Dec, Psychosis, unspecified psychosis type F29 [facility] [facility] [address], [place] [address] Nov, Schizoaffective disorder, unspecified type F25.9 [facility] [place] [facility] [id number] [place] [address] 16 Oct, 2015 [facility] [id number] [place] [address] Oct, Conjunctivitis of right eye, unspecified conjunctivitis type H10.9 [facility] [place] [facility] [id number] [place] [address] Aug, [facility] [id number] [place] [id number] Jun, Encounter for dental examination Z01.20 [facility] [place] [facility] [id number] [place] [address] Jun, Diabetes E11.9 and Bipolar affect, depressed F31.30 [facility] [place] [facility] [id number] [place] [address] Jun, Other bipolar disorder F31.89 [facility] [place] [facility] [id number] [place] [address] Jun, [facility] [place] [facility] [id number] [place] [address] Apr, [facility] [place] [facility] [id number] [place] [address] Dec, [facility] [place] [facility] [id number] [place] [address] Dec, [facility] [place] [facility] [id number] [place] [address] Sep, [facility] [place] [facility] [id number] [place] [address] Jun, [facility] [place] [facility] [id number] [place] [address] [place] [address] Jun, [facility] [place] [facility] [address] [id number] [place] [address] Mar, [facility] [place] [facility] [address] [id number] [place] [address] Mar, [facility] [place] [facility] [address] [id number] [place] [address] Nov, [facility] [place] [facility] [address] [id number] [place] [address] Nov, [facility] [place] [facility] [address] [id number] [place] [address] Sep, [facility] [place] [facility] [address] [id number] [place] [address] Sep, [facility] [place] [facility] [address] [id number] [place] [address] Sep, [facility] [place] [facility] [address] [id number] [place] [address] Sep, [facility] [place] [facility] [address] [id number] [place] [address] Sep, [facility] [place] [facility] [address] [id number] [place] [address] Aug, [facility] [place] [facility] [address] [id number] [place] [address] Aug, [facility] [place] [facility] [address] [id number] [place] [address] Aug, [facility] [place] [facility] [address] [id number] [place] [address] Aug, [facility] [place] [facility] [address] [id number] [place] [address] Aug, [facility] [place] [facility] [address] [id number] [place] [address] Aug, [facility] [place] [facility] [address] [id number] [place] [address] July, [facility] [place] [facility] [address] [id number] [place] [address] July, [facility] [place] [facility] [address] [id number] [place] [address] Jun, [facility] [place] [facility] [address] [id number] [place] [address] Jun, [facility] [place] [facility] [address] [id number] [place] [address] Jun, [facility] [place] [facility] [address] [id number] [place] [address] Jun, [facility] [place] [facility] [address] [id number] [place] [address] Jun, [facility] [place] [facility] [address] [id number] [place] [address] Jun, [facility] [place] [facility] [address] [id number] [place] [address] Jun, [facility] [place] [facility] [address] [id number] [place] [address] Jun, [facility] [place] [facility] [address] [id number] [place] [address] May, [facility] [place] [facility] [address] [id number] [place] [address] May, [facility] [place] [facility] [address] [id number] [place] [address] May, [facility] [place] [facility] [address] [id number] [place] [address] May, [facility] [place] [facility] [address] [id number] [place] [address] May, [facility] [place] [facility] [address] [id number] [place] [address] May, [facility] [place] [facility] [address] [id number] [place] [address] May, [facility] [place] [facility] [address] [id number] [place] [address] May, [facility] [place] [facility] [address] [id number] [place] [address] May, [facility] [place] [facility] [address] [id number] [place] [address] Apr, [facility] [place] [facility] [address] [id number] [place] [address] Apr, [facility] [place] [facility] [address] [id number] [place] [address] Mar, [facility] [place] [facility] [address] [id number] [place] [address] Mar, [facility] [place] [facility] [address] [id number] [place] [address] Feb, [facility] [place] [facility] [address] [id number] [place] [address] Feb, [facility] [place] [facility] [address] [id number] [place] [address] Nov, [facility] [place] [facility] [address] [id number] [place] [address] Nov, [facility] [place] [facility] [address] [id number] [place] [address] Oct, [facility] [place] [facility] [address] [id number] [place] [address] Oct, [facility] [place] [facility] [address] [id number] [place] [address] Oct, [facility] [place] [facility] [address] [id number] [place] [address] Oct, [facility] [place] [facility] [address] [id number] [place] [address] Oct, [facility] [address] [id number] [place] [address] Sep, [facility] [address] [id number] [place] [address] Sep, [facility] [address] [id number] [place] [address] Sep, [facility] [address] [id number] [place] [address] Sep, [facility] [address] [id number] [place] [address] Aug, [facility] [address] [id number] [place] [address] Aug, [facility] [address] [id number] [place] [address] Aug, [facility] [address] [id number] [place] [address] Aug, [facility] [address] [id number] [place] [address] Jun, [facility] [address] [id number] [place] [address] 18 Jun, 2012 [facility] [address] [id number] [place] [address] Jun, [facility] [address] [id number] [place] [address] Jun, [facility] [place] [facility] [address] [id number] [place] [address] May, [facility] [place] [facility] [address] [id number] [place] [address] May, [facility] [address] [id number] [place] [address] May, [facility] [address] [id number] [place] [address] 13 May, 2012 [facility] [place] [facility] [address] [id number] [place] [address] 11 May, 2012 [facility] [address] [id number] [place] [address] 04 May, 2012 [facility] [place] [facility] [address] [id number] [place] [address] 21 Apr, 2012 [facility] [address] [id number] [place] [address] 20 Apr, 2012 [facility] [address] [id number] [place] [address] 19 Apr, 2012 [facility] [address] [id number] [place] [address] 19 Apr, 2012 [facility] [address] [id number] [place] [address] Apr, [facility] [address] [id number] [place] [address] Feb, [facility] [address] [id number] [place] [address] Feb, [facility] [address] [id number] [place] [address] Feb, [facility] [place] [facility] [address] [id number] [address] Feb, [facility] [place] [facility] [address] [id number] [place] [address] Feb, [facility] [place] [facility] [address] [id number] [place] [address] Feb, [facility] [place] [facility] [address] [id number] [place] [address] Feb, [facility] [place] [facility] [address] [id number] [place] [address] 19 Feb, 2012 [facility] [address] [id number] [place] [address] 14 Feb, 2012 [facility] [place] [facility] [address] [id number] [place] [address] 14 Feb, 2012 [facility] [address] [id number] [place] [address] 13 Feb, 2012 [facility] [place] [facility] [address] [id number] [place] [address] 13 Feb, 2012 [facility] [address] [id number] [place] [address] 12 Feb, 2012 [facility] [place] [facility] [address] [id number] [place] [address] 12 Feb, 2012 [facility] [address] [id number] [place] [address] 12 Feb, 2012 [facility] [place] [facility] [address] [id number] [place] [address] Feb, [facility] [place] [facility] [address] [id number] [place] [address] Feb, [facility] [place] [facility] [address] [id number] [place] [address] Feb, [facility] [place] [facility] [address] [id number] [place] [address] Feb, [facility] [place] [facility] [address] [id number] [place] [address] Feb, [facility] [place] [facility] [address] [id number] [place] [address] Feb, [facility] [place] [facility] [address] [id number] [place] [address] Feb, [facility] [place] [facility] [address] [id number] [place] [address] Feb, [facility] [place] [facility] [address] [id number] [place] [address] Feb, [facility] [place] [facility] [address] [id number] [place] [address] Feb, [facility] [place] [facility] [address] [id number] [place] [address] Feb, [facility] [place] [facility] [address] [id number] [place] [address] Jan, [facility] [place] [facility] [address] [id number] [place] [address] Jan, [facility] [place] [facility] [address] [id number] [place] [address] Dec, [facility] [place] [facility] [address] [id number] [place] [address] Dec, [facility] [place] [facility] [address] [id number] [place] [address] Dec, [facility] [place] [facility] [address] [id number] [place] [address] Dec, [facility] [place] [facility] [address] [id number] [place] [address] Nov, [facility] [place] [facility] [address] [id number] [place] [address] Nov, [facility] [place] [facility] [address] [id number] [place] [address] Nov, [facility] [place] [facility] [address] [id number] [place] [address] Nov, [facility] [place] [facility] [address] [id number] [place] [address] Oct, [facility] [place] [facility] [address] [id number] [place] [address] Oct, [facility] [place] [facility] [address] [id number] [place] [address] Sep, [facility] [place] [facility] [address] [id number] [place] [address] Sep, [facility] [place] [facility] [address] [id number] [place] [address] Sep, [facility] [place] [facility] [address] [id number] [place] [address] Aug, [facility] [place] [facility] [address] [id number] [place] [address] Aug, [facility] [place] [facility] [address] [id number] [place] [address] Aug, [facility] [place] [facility] [address] [id number] [place] [address] Aug, [facility] [place] [facility] [address] [id number] [place] [address] Aug, [facility] [place] [facility] [address] [id number] [place] [address] July, [facility] [place] [facility] [address] [id number] [place] [address] July, [facility] [place] [facility] [address] [id number] [place] [address] July, [facility] [place] [facility] [address] [id number] [place] [address] July, [facility] [place] [facility] [address] [id number] [place] [address] July, [facility] [place] [facility] [address] [id number] [place] [address] Jun, [facility] [place] [facility] [address] [id number] [place] [address] May, [facility] [place] [facility] [address] [id number] [place] [address] Apr, [facility] [place] [facility] [address] [id number] [place] [address] 13 Apr, 2011 [facility] [address] [id number] [place] [address] 13 Apr, 2011 [facility] [place] [facility] [address] [id number] [place] [address] 31 Mar, 2011 [facility] [address] [id number] [place] [address] Mar, [facility] [address] [id number] [place] [address] Mar, [facility] [address] [id number] [place] [address] Mar, [facility] [address] [id number] [place] [address] Mar, [facility] [address] [id number] [place] [address] 17 Mar, 2011 [facility] [address] [id number] [place] [address] 16 Mar, 2011 [facility] [address] [id number] [place] [address] Mar, [facility] [address] [id number] [place] [address] Feb, [facility] [address] [id number] [place] [address] Feb, [facility] [address] [id number] [place] [address] Feb, [facility] [place] [facility] [address] [id number] [place] [address] Feb, [facility] [place] [facility] [address] [id number] [place] [address] Feb, [facility] [address] [id number] [place] [address] Jan, [facility] [place] [facility] [address] [id number] [place] [address] Jan, [facility] [place] [facility] [address] [id number] [place] [address] Jan, [facility] [place] [facility] [address] [id number] [place] [address] Jan, [facility] [place] [facility] [address] [id number] [place] [address] 14 Dec, 2010 [facility] [place] [facility] [address] [id number] [place] [address] 14 Dec, 2010 [facility] [place] [facility] [address] [id number] [place] [address] Sep, [facility] [place] [facility] [address] [id number] [place] [address] July, [facility] [place] [facility] [address] [id number] [place] [address] Apr, [facility] [place] [facility] [address] [id number] [place] [address] Mar, [facility] [place] [facility] [address] [id number] [place] [place] [address] Feb, [facility] [place] [facility] [address] [id number] [place] [address] Feb, [facility] [place] [facility] [address] [id number] [place] [address] Feb, [facility] [place] [facility] [address] [id number] [place] [address] Feb, [facility] [place] [facility] [address] [id number] [place] [address] 15 Feb, 2010 [facility] [place] [facility] [address] [id number] [place] [address] Feb, [facility] [place] [facility] [address] [facility] [id number] [place] [address] Feb, [facility] [place] [facility] [address] [facility] [id number] [address] Dec, [facility] [place] [facility] [address] [facility] [id number][place] [address] Jan, [facility] [place] [facility] [address] [facility] [id number] [address] Apr, IMMUNIZATIONS No Known Immunizations SOCIAL HISTORY Never Assessed REASON FOR VISIT stomach ache/sore throat Pt c/o sinus congestion, runny nose, ear pain/pressure , sore throat all since Thursday also c/o yesterday stomach ache started, but has been constipated NELSY Lazo PLAN OF CARE Activity Details Follow Up 1 Week, prn Reason:if symptoms worsen or not improving VITAL SIGNS Height 64 in 2017-08-28 Weight 171.2 lbs 2017-08-28 Temperature 97.3 degrees Fahrenheit 2017-08-28 Heart Rate 80 bpm 2017-08-28 Respiratory Rate 18 2017-08-28 BMI 29.38 kg/m2 2017-08-28 Blood pressure systolic 120 mmHg 2017-08-28 Blood pressure diastolic 74 mmHg 2017-08-28 MEDICATIONS Medication Instructions Dosage Frequency Start Date End Date Duration Status Carvedilol 12.5 MG Orally 2 times a day 1 tablet 12h Active Levemir 100 UNIT/ML Subcutaneous 2 times a day 15 units 12h Active Insulin Syringe 31G X 5/16 as directed May, 30 days Active Latuda 80 MG Orally Once a day 1 tablet with food 24h 30 day(s) Active Multivitamin Adults - Active Digoxin 125 MCG Orally Once a day 1 tablet 24h Active Tylenol PM Extra Strength 500-25 MG Orally Once a day 1 tablet at bedtime as needed 24h Active Amoxicillin 500 mg Orally every 12 hrs 1 tablet 12h Aug, Aug, 07 days Active Loperamide HCl 2 MG Orally Four times a day 1 capsule as needed 6h Active Plavix 75 MG Orally Once a day 1 tablet 24h Active Enalapril Maleate 20 MG Orally Once a day 1 tablet 24h Active Insulin Syringe-Needle U-40 1 subcutaneously 5 times per day as directed Mar, 30 days Active BD Pen Needle Ultrafine 29G X 12.7MM as directed May, Active Flonase 50 MCG/ACT Nasally Once a day 1 spray in each nostril 24h Aug, 30 day(s) Active Atorvastatin Calcium 40 MG Orally Once a day 1 tablet 24h Active MiraLax 17 gm/dose Orally 4 times a day one capful dissolved in 8 ounces water 6h Aug, Aug, 05 days Active Aspirin Adult Low Strength 81 MG Orally Once a day 1 tablet 24h Active Fish Oil 1200 MG Orally Once a day 1 capsule 24h Active NovoLog 100 UNIT/ML Subcutaneous before meals 10 units Active Flonase Active DiphenhydrAMINE HCl 25 MG Orally at bedtime 1 capsule as needed Active RESULTS Name Result Date Reference Range UA LONG DIP (IN HOUSE) 2017-08-28 Lot # [id number] Exp date 07/06/2018 Clarity clear Color yellow Odor none GLU trace MAO negative KET negative SG 1.015 BLO negative pH 5.0 Protein negative URO 0.2 NIT negative MERLENE negative Lot # [id number] Exp date PROCEDURES Procedure Date Ordered Result Body Site URINALYSIS, AUTO, W/O SCOPE August 28, 2017 INSTRUCTIONS MEDICATIONS ADMINISTERED No Known Medications [...] Surgery Hospitalization History Hyperglycemia 2012 Hospitalization History [facility] Unit 11/28/2015-12/04/2015 2016 Hospitalization History Schizophrenia 09/26/16 Hospitalization History A[facility], UTI, hyponatremia-VC 10/21/16 Hospitalization History stent placed 02/02/17 Hospitalization History stent placed 02/2017 Hospitalization History [facility]- Syncope, Dehydration and Hypotension. 06/08/2017
--- OUTSIDE RECORDS SUMMARY | 2018-09-05 12:54 | XMS REPORT ---
Author Author WOOD CALDERON Organization [facility] Address [address] [place] [address] Care Team Providers Care Pulp Mixer Name Role Phone WOOD CALDERON Unavailable PROBLEMS Type Condition ICD9-CM Code QUV24-BF Code Onset Dates Condition Status SNOMED Code Problem Pacemaker Z95.0 Active 950269225 Problem Chronic idiopathic constipation K59.04 Active 20036913 Problem Coronary artery disease involving [place] coronary artery of [place] heart without angina pectoris I25.10 Active 2451795526945 Problem Diabetes E11.9 Active 15613982 Problem CVA (cerebral vascular accident) I63.9 Active 979120360 Problem Bipolar affective disorder, current episode mixed, current episode severity unspecified F31.60 Active 375430957 Problem Psychosis, unspecified psychosis type F29 Active 22942746 ALLERGIES Substance Reaction Event Type Date Status Codeine Sulfate Unknown Drug Allergy Jun, Active Groves Unknown Non Drug Allergy Jun, Active Tejeda Unknown Non Drug Allergy Jun, Active Pork Unknown Non Drug Allergy Jun, Active Yeast Unknown Non Drug Allergy Jun, Active Elizabeth Unknown Non Drug Allergy Jun, Active ENCOUNTERS Encounter Location Date Diagnosis [facility] [id number] [address] Oct, [facility] [id number] [place] [address] Oct, [facility] [id number] [place] [address] Sep, [facility] [id number] [place] [address] Aug, Upper respiratory tract infection, unspecified type J06.9 ; Chronic idiopathic constipation K59.04 ; Fluid level behind tympanic membrane of both ears H65.93 and Abdominal pain R10.9 [place] [id number] [place] [address] July, Diabetes E11.9 [facility] [address] [address] Jun, Dehydration E86.0 ; Diabetes E11.9 and Hyperglycemia R73.9 [place] [address] [address] Jun, [place] [address] [address] Jun, Vertigo R42 ; Syncope, unspecified syncope type R55 ; Diabetes E11.9 and Hyperglycemia R73.9 [place] [id number] [place] [address] May, Psychosis, unspecified psychosis type F29 and Bipolar affective disorder, current episode mixed, current episode severity unspecified F31.60 [place] [id number] [place] [address] May, [place] [address] [address] May, Diabetes E11.9 [facility] [id number] [place] [id number] Apr, Dental examination Z01.20 and Dental caries K02.9 [place] [id number] [place] [address] Apr, Dental examination Z01.20 and Dental abscess K04.7 [place] [id number] [place] [address] Mar, Psychosis, unspecified psychosis type F29 and Bipolar affective disorder, current episode mixed, current episode severity unspecified F31.60 [place] [id number] [place] [address] Mar, [facility] [address] [address] Feb, [facility] [id number] [place] [address] Feb, Left wrist pain M25.532 [facility] [id number] [place] [address] Jan, [facility] [id number] [place] [address] Jan, Psychosis, unspecified psychosis type F29 and Bipolar affective disorder, current episode mixed, current episode severity unspecified F31.60 [place] [id number] [place] [address] Jan, Diabetes E11.9 [facility] [id number] [place] [address] Jan, Left wrist pain M25.532 [place] [id number] [place] [address] Dec, Psychosis, unspecified psychosis type F29 and Bipolar affective disorder, current episode mixed, current episode severity unspecified F31.60 [place] [id number] [place] [address] Dec, Syncope, unspecified syncope type R55 ; Vertigo R42 ; Diabetes E11.9 ; Psychosis, unspecified psychosis type F29 and Fall, initial encounter W19.XXXA [place] [id number] [place] [address] Dec, Diabetes E11.9 ; Neck pain M54.2 and Vertigo R42 [place] [id number] [place] [address] Nov, [facility] [id number] [place] [address] Nov, [place] [id number] [place] [address] Nov, [place] [address] [place] [address] Nov, Diabetes E11.9 [facility] [address] [address] Nov, Diabetes E11.9 [facility] [address], [place] [address] Oct, [facility] [id number] [id number] Oct, [facility] [address], [place] [address] Oct, [facility] [address], [place] [address] Oct, Bipolar affective disorder, current episode mixed, current episode severity unspecified F31.60 [facility] [id number] [id number] Sep, [facility] [address] [address] Sep, Bipolar affective disorder, current episode mixed, current episode severity unspecified F31.60 [facility] [address], [place] [address] Sep, Acute maxillary sinusitis, recurrence not specified J01.00 [facility] [address], [place] [address] Sep, Diabetes E11.9 [facility] [address], [place] [address] July, Diabetes E11.9 [facility] [address], [place] [address] July, Diabetes E11.9 [facility] [address], [place] [address] Jun, [facility] [address], [place] [address] May, Bipolar affective disorder, current episode mixed, current episode severity unspecified F31.60 [facility] [id number] [place] [address] 11 May, 2016 Acute non-recurrent maxillary sinusitis J01.00 [facility] [id number] [place] [address] 10 Apr, 2016 Psychosis, unspecified psychosis type F29 and Bipolar affective disorder, current episode mixed, current episode severity unspecified F31.60 [facility] [id number] [place] [address] 03 Apr, 2016 Dysuria R30.0 ; Other viral agents as the cause of diseases classified elsewhere B97.89 and Acute upper respiratory infection, unspecified J06.9 [place] [id number] [place] [address] Mar, Diabetes E11.9 ; Urine leukocytes R82.99 and Psychosis, unspecified psychosis type F29 [place] [id number] [place] [address] Mar, Diabetes E11.9 [place] [id number] [place] [address] Feb, [facility] [id number] [place] [address] Jan, [place] [id number] [place] [address] Dec, Psychosis, unspecified psychosis type F29 [facility] [id number] [place] [address] Dec, [facility] [id number] [place] [address] Dec, [facility] [id number] [place] [address] Dec, Psychosis, unspecified psychosis type F29 [place] [id number] [place] [address] Nov, Schizoaffective disorder, unspecified type F25.9 [facility] [id number] [place] [address] Oct, [facility] [id number] [place] [address] Oct, Conjunctivitis of right eye, unspecified conjunctivitis type H10.9 [facility] [id number] [place] [address] Aug, [facility] [id number] [place] [id number] Jun, Encounter for dental examination Z01.20 [facility] [id number] [place] [address] Jun, Diabetes E11.9 and Bipolar affect, depressed F31.30 [facility] [id number] [place] [address] Jun, Other bipolar disorder F31.89 [facility] [id number] [place] [address] Jun, [facility] [id number] [place] [address] Apr, [facility] [id number] [place] [address] Dec, [facility] [id number] [place] [address] Dec, [facility] [id number] [place] [address] Sep, [facility] [id number] [place] [address] Jun, [facility] [id number] [place] [address] Jun, [facility] [address] [place] [address] Mar, [facility] [place] [facility] [address] [id number] [place] [address] Mar, [facility] [place] [facility] [address] [id number] [place] [address] Nov, [facility] [place] [facility] [address] [id number] [place] [address] Nov, [facility] [place] [facility] [address] [id number] [place] [address] Sep, [facility] [place] [facility] [address] [id number] [place] [address] Sep, [facility] [place] [facility] [address] [id number] [place] [address] Sep, [facility] [place] [facility] [address] [id number] [place] [address] Sep, [facility] [place] [facility] [address] [id number] [place] [address] Sep, [facility] [place] [facility] [address] [id number] [place] [address] Aug, [facility] [place] [facility] [address] [id number] [place] [address] Aug, [facility] [place] [facility] [address] [id number] [place] [address] Aug, [facility] [place] [facility] [address] [id number] [place] [address] Aug, [facility] [place] [facility] [address] [id number] [place] [address] Aug, [facility] [place] [facility] [address] [id number] [place] [address] Aug, [facility] [place] [facility] [address] [id number] [place] [address] July, [facility] [place] [facility] [address] [id number] [place] [address] July, [facility] [place] [facility] [address] [id number] [place] [address] Jun, [facility] [place] [facility] [address] [id number] [place] [address] Jun, [facility] [place] [facility] [address] [id number] [place] [address] Jun, [facility] [place] [facility] [address] [id number] [place] [address] Jun, [facility] [place] [facility] [address] [id number] [place] [address] Jun, [facility] [place] [facility] [address] [id number] [place] [address] Jun, [facility] [place] [facility] [address] [id number] [place] [address] Jun, [facility] [place] [facility] [address] [id number] [place] [address] Jun, [facility] [place] [facility] [address] [id number] [place] [address] May, [facility] [place] [facility] [address] [id number] [place] [address] May, [facility] [place] [facility] [address] [id number] [place] [address] May, [facility] [place] [facility] [address] [id number] [place] [address] May, [facility] [place] [facility] [address] [id number] [place] [address] May, [facility] [place] [facility] [address] [id number] [place] [address] May, [facility] [place] [facility] [address] [id number] [place] [address] May, [facility] [place] [facility] [address] [id number] [place] [address] May, [facility] [place] [facility] [address] [id number] [place] [address] May, [facility] [place] [facility] [address] [id number] [place] [address] Apr, [facility] [place] [facility] [address] [id number] [place] [address] Apr, [facility] [place] [facility] [address] [id number] [place] [address] Mar, [facility] [place] [facility] [address] [id number] [place] [address] Mar, [facility] [place] [facility] [address] [id number] [place] [address] Feb, [facility] [place] [facility] [address] [id number] [place] [address] Feb, [facility] [place] [facility] [address] [id number] [place] [address] Nov, [facility] [place] [facility] [address] [id number] [place] [address] Nov, [facility] [place] [facility] [address] [id number] [place] [address] Oct, [facility] [place] [facility] [address] [id number] [place] [address] Oct, [facility] [place] [facility] [address] [id number] [place] [address] Oct, [facility] [place] [facility] [address] [id number] [place] [address] Oct, [facility] [place] [facility] [address] [id number] [place] [address] Oct, [facility] [place] [facility] [address] [id number] [place] [address] 23 Sep, 2012 [facility] [address] [id number] [place] [address] Sep, [facility] [address] [id number] [place] [address] Sep, [facility] [address] [id number] [place] [address] Sep, [facility] [address] [id number] [place] [address] Aug, [facility] [address] [id number] [place] [address] Aug, [facility] [address] [id number] [place] [address] Aug, [facility] [address] [id number] [place] [address] Aug, [facility] [address] [id number] [place] [address] 19 Jun, 2012 [facility] [address] [id number] [place] [address] 18 Jun, 2012 [facility] [address] [id number] [place] [address] 17 Jun, 2012 [facility] [address] [id number] [place] [address] 17 Jun, 2012 [facility] [address] [id number] [place] [address] 21 May, 2012 [facility] [address] [id number] [place] [address] 18 May, 2012 [facility] [address] [id number] [place] [address] 18 May, 2012 [facility] [address] [id number] [place] [address] 13 May, 2012 [facility] [address] [id number] [place] [address] 11 May, 2012 [facility] [place] [facility] [address] [id number] [place] [address] 04 May, 2012 [facility] [address] [id number] [place] [address] 21 Apr, 2012 [facility] [place] [facility] [address] [id number] [place] [address] 20 Apr, 2012 [facility] [address] [id number] [place] [address] Apr, [facility] [address] [id number] [place] [address] Apr, [facility] [address] [id number] [place] [address] Apr, [facility] [place] [facility] [address] [id number] [place] [address] Feb, [facility] [address] [id number] [place] [address] Feb, [facility] [place] [facility] [address] [id number] [place] [address] Feb, [facility] [place] [facility] [address] [id number] [place] [address] Feb, [facility] [place] [facility] [address] [id number] [place] [address] Feb, [facility] [place] [facility] [address] [id number] [place] [address] Feb, [facility] [place] [facility] [address] [id number] [place] [address] Feb, [facility] [place] [facility] [address] [id number] [place] [address] Feb, [facility] [place] [facility] [address] [id number] [place] [address] 14 Feb, 2012 [facility] [address] [id number] [place] [address] 14 Feb, 2012 [facility] [address] [id number] [place] [address] 13 Feb, 2012 [facility] [address] [id number] [place] [address] 13 Feb, 2012 [facility] [address] [id number] [place] [address] 12 Feb, 2012 [facility] [address] [id number] [place] [address] 12 Feb, 2012 [facility] [address] [id number] [place] [address] 12 Feb, 2012 [facility] [address] [id number] [place] [address] 12 Feb, 2012 [facility] [address] [id number] [place] [address] 12 Feb, 2012 [facility] [address] [id number] [place] [address] Feb, [facility] [address] [id number] [place] [address] 12 Feb, 2012 [facility] [address] [id number] [place] [address] Feb, [facility] [address] [id number] [place] [address] Feb, [facility] [place] [facility] [address] [id number] [place] [address] Feb, [facility] [address] [id number] [place] [address] Feb, [facility] [address] [id number] [place] [address] Feb, [facility] [place] [facility] [address] [id number] [place] [address] Feb, [facility] [place] [facility] [address] [id number] [place] [address] Feb, [facility] [place] [facility] [address] [id number] [place] [address] Jan, [facility] [place] [facility] [address] [id number] [place] [address] Jan, [facility] [place] [facility] [address] [id number] [place] [address] Dec, [facility] [place] [facility] [address] [id number] [place] [address] Dec, [facility] [place] [facility] [address] [id number] [place] [address] Dec, [facility] [place] [facility] [address] [id number] [place] [address] Dec, [facility] [place] [facility] [address] [id number] [place] [address] Nov, [facility] [place] [facility] [address] [id number] [place] [address] Nov, [facility] [place] [facility] [address] [id number] [place] [address] Nov, [facility] [place] [facility] [address] [id number] [address] Nov, [facility] [place] [facility] [address] [id number] [place] [address] Oct, [facility] [place] [facility] [address] [id number] [place] [address] Oct, [facility] [place] [facility] [address] [id number] [place] [address] Sep, [facility] [place] [facility] [address] [id number], [place] [address] 17 Sep, 2011 [facility] [address] [id number] [place] [address] Sep, [facility] [place] [facility] [address] [id number] [place] [address] Aug, [facility] [place] [facility] [address] [id number] [place] [address] Aug, [facility] [place] [facility] [address] [id number] [place] [address] 14 Aug, 2011 [facility] [place] [facility] [address] [id number] [place] [address] Aug, [facility] [place] [facility] [address] [id number] [place] [address] Aug, [facility] [place] [facility] [address] [id number] [place] [address] July, [facility] [place] [facility] [address] [id number] [place] [address] July, [facility] [place] [facility] [address] [id number] [place] [address] July, [facility] [place] [facility] [address] [id number] [place] [address] July, [facility] [place] [facility] [address] [id number] [place] [address] July, [facility] [place] [facility] [address] [id number] [place] [address] Jun, [facility] [place] [facility] [address] [id number] [place] [address] May, [facility] [place] [facility] [address] [id number] [place] [address] 16 Apr, 2011 [facility] [place] [facility] [address] [id number] [place] [address] 13 Apr, 2011 [facility] [place] [facility] [address] [id number] [place] [address] 13 Apr, 2011 [facility] [place] [facility] [address] [id number] [place] [address] Mar, [facility] [place] [facility] [address] [id number] [place] [address] Mar, [facility] [place] [facility] [address] [id number] [place] [address] Mar, [facility] [place] [facility] [address] [id number] [place] [address] Mar, [facility] [place] [facility] [address] [id number] [place] [address] Mar, [facility] [place] [facility] [address] [id number] [place] [address] 17 Mar, 2011 [facility] [place] [facility] [address] [id number] [place] [address] 16 Mar, 2011 [facility] [address] [id number] [place] [address] Mar, [facility] [place] [facility] [address] [id number] [place] [address] Feb, [facility] [place] [facility] [address] [id number] [place] [address] Feb, [facility] [place] [facility] [address] [id number] [place] [address] Feb, [facility] [place] [facility] [address] [id number] [place] [address] Feb, [facility] [place] [facility] [address] [id number] [place] [address] Feb, [facility] [place] [facility] [address] [id number] [place] [id number] Jan, [facility] [place] [facility] [address] [id number] [place] [address] Jan, [facility] [address] [id number] [place] [address] Jan, [facility] [place] [facility] [address] [id number] [place] [address] Jan, [facility] [place] [facility] [address] [id number] [place] [address] 14 Dec, 2010 [facility] [place] [facility] [address] [id number] [place] [address] 14 Dec, 2010 [facility] [place] [facility] [address] [id number] [place] [address] Sep, [facility] [place] [facility] [address] [id number] [place] [address] July, [facility] [place] [facility] [address] [id number] [place] [address] Apr, [facility] [place] [facility] [address] [id number] [place] [address] Mar, [facility] [place] [facility] [address] [id number] [place] [address] Feb, [facility] [place] [facility] [address] [id number] [place] [address] Feb, [facility] [place] [facility] [address] [id number] [place] [address] Feb, [facility] [place] [facility] [address] [id number] [address] Feb, [facility] [place] [facility] [address] [id number] [place] [address] 15 Feb, 2010 [facility] [place] [facility] [address] [id number] [place] [address] Feb, [facility] [place] [facility] [address] [id number] [place] [address] Feb, [facility] [place] [facility] [address] [facility] [id number] [place] [address] Dec, [facility] [address] [facility] [id number] [address] Jan, [facility] [address] [facility] [id number] [place] [address] Apr, IMMUNIZATIONS No Known Immunizations SOCIAL HISTORY Never Assessed REASON FOR VISIT [facility] follow up PLAN OF CARE Activity Details Follow Up 2 Months Reason:DM VITAL SIGNS Height 64 in 2017-06-15 Weight 169 lbs 2017-06-15 Temperature 98.1 degrees Fahrenheit 2017-06-15 Heart Rate 72 bpm 2017-06-15 Respiratory Rate 18 2017-06-15 BMI 29.01 kg/m2 2017-06-15 Blood pressure systolic 132 mmHg 2017-06-15 Blood pressure diastolic 82 mmHg 2017-06-15 MEDICATIONS Medication Instructions Dosage Frequency Start Date End Date Duration Status Tylenol PM Extra Strength 500-25 MG Orally Once a day 1 tablet at bedtime as needed 24h Active Insulin Syringe-Needle U-40 1 subcutaneously 5 times per day as directed Mar, 30 days Active Loperamide HCl 2 MG Orally Four times a day 1 capsule as needed 6h Active Acetaminophen Extra Strength 500 mg Orally every 6 hrs 2 tablets as needed 6h Not-Taking Latuda 80 MG Orally Once a day 1 tablet with food 24h 30 day(s) Active BD Pen Needle Ultrafine 29G X 12.7MM as directed May, Active Plavix 75 MG Orally Once a day 1 tablet 24h Active Digoxin 125 MCG Orally Once a day 1 tablet 24h Active Artificial Tear Not-Taking NovoLog 100 UNIT/ML Subcutaneous before meals 10 units Active Tylenol 325 MG Orally every 6 hrs 2 tablets as needed 6h Not-Taking DiphenhydrAMINE HCl 25 MG Orally at bedtime 1 capsule as needed Active Fish Oil 1200 MG Orally Once a day 1 capsule 24h Active Multivitamin Adults - Active Carvedilol 12.5 MG Orally 2 times a day 1 tablet 12h Active Levemir 100 UNIT/ML Subcutaneous 2 times a day 15 units 12h Active Insulin Syringe 31G X 5/16 as directed May, 30 days Active Atorvastatin Calcium 40 MG Orally Once a day 1 tablet 24h Active Flonase Not-Taking Aspirin Adult Low Strength 81 MG Orally Once a day 1 tablet 24h Active Enalapril Maleate 20 MG Orally Once a day 1 tablet 24h Active Loratadine 10 MG Orally Once a day 1 tablet 24h Not-Taking RESULTS No Results PROCEDURES No Known procedures [...] Surgery Hospitalization History Hyperglycemia 2012 Hospitalization History [facility] 11/28/2015-12/04/2015 2016 Hospitalization History Schizophrenia 09/26/16 Hospitalization History A[facility], UTI, hyponatremia-[facility] 10/21/16 Hospitalization History stent placed 02/02/17 Hospitalization History stent placed 02/2017 Hospitalization History [facility]- Syncope, Dehydration and Hypotension. 06/08/2017
--- OUTSIDE RECORDS SUMMARY | 2018-09-05 12:54 | XMS REPORT ---
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 Name Role Phone WOOD CALDERON Unavailable PROBLEMS Type Condition ICD9-CM Code [id number] Code Onset Dates Condition Status SNOMED Code Problem Pacemaker Z95.0 Active 470334105 Problem Chronic idiopathic constipation K59.04 Active 15655040 Problem Coronary artery disease involving zuni coronary artery of zuni heart without angina pectoris I25.10 Active 1234507803602 Problem Diabetes E11.9 Active 78331537 Problem CVA (cerebral vascular accident) I63.9 Active 871306033 Problem Bipolar affective disorder, current episode mixed, current episode severity unspecified F31.60 Active 688795032 Problem Psychosis, unspecified psychosis type F29 Active 49787124 ALLERGIES Substance Reaction Event Type Date Status Codeine Sulfate Unknown Drug Allergy Jun, Active [place] Unknown Non Drug Allergy Jun, Active [place] Unknown Non Drug Allergy Jun, Active [place] Unknown Non Drug Allergy Jun, Active Yeast Unknown Non Drug Allergy Jun, Active [place] Unknown Non Drug Allergy Jun, Active ENCOUNTERS Encounter Location Date Diagnosis [facility] [id number] [address] Oct, [facility] [id number] [place] [address] Oct, [facility] [id number] [place] [address] Sep, [facility] [id number] [place] [address] Aug, Upper respiratory tract infection, unspecified type J06.9 ; Chronic idiopathic constipation K59.04 ; Fluid level behind tympanic membrane of both ears H65.93 and Abdominal pain R10.9 [place] [id number] [place] [address] July, Diabetes E11.9 [facility] [address] [address] Jun, Dehydration E86.0 ; Diabetes E11.9 and Hyperglycemia R73.9 [place] [address] [address] Jun, [place] [address] [address] Jun, Vertigo R42 ; Syncope, unspecified syncope type R55 ; Diabetes E11.9 and Hyperglycemia R73.9 [place] [id number] [place] [address] May, Psychosis, unspecified psychosis type F29 and Bipolar affective disorder, current episode mixed, current episode severity unspecified F31.60 [place] [id number] [place] [address] May, [place] [address] [address] May, Diabetes E11.9 [facility] [id number] [place] [id number] Apr, Dental examination Z01.20 and Dental caries K02.9 [place] [id number] [place] [address] Apr, Dental examination Z01.20 and Dental abscess K04.7 [place] [id number] [place] [address] Mar, Psychosis, unspecified psychosis type F29 and Bipolar affective disorder, current episode mixed, current episode severity unspecified F31.60 [place] [id number] [place] [address] Mar, [facility] [address] [address] Feb, [facility] [id number] [place] [address] Feb, Left wrist pain M25.532 [facility] [id number] [place] [address] Jan, [facility] [id number] [place] [address] Jan, Psychosis, unspecified psychosis type F29 and Bipolar affective disorder, current episode mixed, current episode severity unspecified F31.60 [place] [id number] [place] [address] Jan, Diabetes E11.9 [facility] [id number] [place] [address] Jan, Left wrist pain M25.532 [place] [id number] [place] [address] Dec, Psychosis, unspecified psychosis type F29 and Bipolar affective disorder, current episode mixed, current episode severity unspecified F31.60 [place] [id number] [place] [address] Dec, Syncope, unspecified syncope type R55 ; Vertigo R42 ; Diabetes E11.9 ; Psychosis, unspecified psychosis type F29 and Fall, initial encounter W19.XXXA [place] [id number] [place] [address] Dec, Diabetes E11.9 ; Neck pain M54.2 and Vertigo R42 [place] [id number] [place] [address] Nov, [facility] [id number] [place] [address] Nov, [place] [id number] [place] [address] Nov, [place] [address] [place] [address] Nov, Diabetes E11.9 [facility] [address], [place] [address] Nov, Diabetes E11.9 [facility] [address] [address] Oct, [facility] [id number] [id number] Oct, [facility] [address] [address] Oct, [facility] [address] [address] Oct, Bipolar affective disorder, current episode mixed, current episode severity unspecified F31.60 [facility] [id number] [id number] Sep, [facility] [id number] [address] Sep, Bipolar affective disorder, current episode mixed, current episode severity unspecified F31.60 [facility] [address] [address] Sep, Acute maxillary sinusitis, recurrence not specified J01.00 [facility] [address] [address] Sep, Diabetes E11.9 [facility] [address] [address] July, Diabetes E11.9 [facility] [address] [address] July, Diabetes E11.9 [facility] [address] [address] Jun, [facility] [address] [address] May, Bipolar affective disorder, current episode mixed, current episode severity unspecified F31.60 [facility] [id number] [place] [address] 11 May, 2016 Acute non-recurrent maxillary sinusitis J01.00 [facility] [id number] [place] [address] 10 Apr, 2016 Psychosis, unspecified psychosis type F29 and Bipolar affective disorder, current episode mixed, current episode severity unspecified F31.60 [facility] [id number] [place] [address] 03 Apr, 2016 Dysuria R30.0 ; Other viral agents as the cause of diseases classified elsewhere B97.89 and Acute upper respiratory infection, unspecified J06.9 [place] [id number] [place] [address] Mar, Diabetes E11.9 ; Urine leukocytes R82.99 and Psychosis, unspecified psychosis type F29 [place] [id number] [place] [address] Mar, Diabetes E11.9 [place] [id number] [place] [address] Feb, [facility] [id number] [place] [address] Jan, [place] [id number] [place] [address] Dec, Psychosis, unspecified psychosis type F29 [facility] [id number] [place] [address] Dec, [facility] [id number] [place] [address] Dec, [facility] [id number] [place] [address] Dec, Psychosis, unspecified psychosis type F29 [place] [id number] [place] [address] Nov, Schizoaffective disorder, unspecified type F25.9 [facility] [id number] [place] [address] Oct, [facility] [id number] [place] [address] Oct, Conjunctivitis of right eye, unspecified conjunctivitis type H10.9 [facility] [id number] [place] [address] Aug, [facility] [id number] [place] [id number] Jun, Encounter for dental examination Z01.20 [facility] [id number] [place] [address] Jun, Diabetes E11.9 and Bipolar affect, depressed F31.30 [facility] [id number] [place] [address] Jun, Other bipolar disorder F31.89 [facility] [id number] [place] [address] Jun, [facility] [id number] [place] [address] Apr, [facility] [id number] [place] [address] Dec, [facility] [id number] [place] [address] Dec, [facility] [id number] [place] [address] Sep, [facility] [id number] [place] [address] Jun, [facility] [id number] [place] [address] Jun, [facility] [address] [place] [address] Mar, [facility] [place] [facility] [address] [id number] [place] [address] Mar, [facility] [place] [facility] [address] [id number] [place] [address] Nov, [facility] [place] [facility] [address] [id number] [place] [address] Nov, [facility] [place] [facility] [address] [id number] [place] [address] Sep, [facility] [place] [facility] [address] [id number] [place] [address] Sep, [facility] [place] [facility] [address] [id number] [place] [address] Sep, [facility] [place] [facility] [address] [id number] [place] [address] Sep, [facility] [place] [facility] [address] [id number] [place] [address] Sep, [facility] [place] [facility] [address] [id number] [place] [address] Aug, [facility] [place] [facility] [address] [id number] [place] [address] Aug, [facility] [place] [facility] [address] [id number] [place] [address] Aug, [facility] [place] [facility] [address] [id number] [place] [address] Aug, [facility] [place] [facility] [address] [id number] [place] [address] Aug, [facility] [place] [facility] [address] [id number] [place] [address] Aug, [facility] [place] [facility] [address] [id number] [place] [address] July, [facility] [place] [facility] [address] [id number] [place] [address] July, [facility] [place] [facility] [address] [id number] [place] [address] Jun, [facility] [place] [facility] [address] [id number] [place] [address] Jun, [facility] [place] [facility] [address] [id number] [place] [address] Jun, [facility] [place] [facility] [address] [id number] [place] [address] Jun, [facility] [place] [facility] [address] [id number] [place] [address] Jun, [facility] [place] [facility] [address] [id number] [place] [address] Jun, [facility] [place] [facility] [address] [id number] [place] [address] Jun, [facility] [place] [facility] [address] [id number] [place] [address] Jun, [facility] [place] [facility] [address] [id number] [place] [address] May, [facility] [place] [facility] [address] [id number] [place] [address] May, [facility] [place] [facility] [address] [id number] [place] [address] May, [facility] [place] [facility] [address] [id number] [place] [address] May, [facility] [place] [facility] [address] [id number] [place] [address] May, [facility] [place] [facility] [address] [id number] [place] [address] May, [facility] [place] [facility] [address] [id number] [place] [address] May, [facility] [place] [facility] [address] [id number] [place] [address] May, [facility] [place] [facility] [address] [id number] [place] [address] May, [facility] [place] [facility] [address] [id number] [place] [address] Apr, [facility] [place] [facility] [address] [id number] [place] [address] Apr, [facility] [place] [facility] [address] [id number] [place] [address] Mar, [facility] [place] [facility] [address] [id number] [place] [address] Mar, [facility] [place] [facility] [address] [id number] [place] [address] Feb, [facility] [place] [facility] [address] [id number] [place] [address] Feb, [facility] [place] [facility] [address] [id number] [place] [address] Nov, [facility] [place] [facility] [address] [id number] [place] [address] Nov, [facility] [place] [facility] [address] [id number] [place] [address] Oct, [facility] [place] [facility] [address] [id number] [place] [address] Oct, [facility] [place] [facility] [address] [id number] [place] [address] Oct, [facility] [place] [facility] [address] [id number] [place] [address] Oct, [facility] [place] [facility] [address] [id number] [place] [address] Oct, [facility] [place] [facility] [address] [id number] [place] [address] 23 Sep, 2012 [facility] [address] [id number] [place] [address] Sep, [facility] [address] [id number] [place] [address] Sep, [facility] [address] [id number] [place] [address] Sep, [facility] [address] [id number] [place] [address] Aug, [facility] [address] [id number] [place] [address] Aug, [facility] [address] [id number] [place] [address] Aug, [facility] [address] [id number] [place] [address] Aug, [facility] [address] [id number] [place] [address] 19 Jun, 2012 [facility] [address] [id number] [place] [address] 18 Jun, 2012 [facility] [address] [id number] [place] [address] 17 Jun, 2012 [facility] [address] [id number] [place] [address] 17 Jun, 2012 [facility] [address] [id number] [place] [address] 21 May, 2012 [facility] [address] [id number] [place] [address] 18 May, 2012 [facility] [address] [id number] [place] [address] 18 May, 2012 [facility] [address] [id number] [place] [address] 13 May, 2012 [facility] [address] [id number] [place] [address] 11 May, 2012 [facility] [place] [facility] [address] [id number] [place] [address] 04 May, 2012 [facility] [address] [id number] [place] [address] 21 Apr, 2012 [facility] [place] [facility] [address] [id number] [place] [address] 20 Apr, 2012 [facility] [address] [id number] [place] [address] Apr, [facility] [address] [id number] [place] [address] Apr, [facility] [address] [id number] [place] [address] Apr, [facility] [place] [facility] [address] [id number] [place] [address] Feb, [facility] [address] [id number] [place] [address] Feb, [facility] [place] [facility] [address] [id number] [place] [address] Feb, [facility] [place] [facility] [address] [id number] [place] [address] Feb, [facility] [place] [facility] [address] [id number] [place] [address] Feb, [facility] [place] [facility] [address] [id number] [place] [address] Feb, [facility] [place] [facility] [address] [id number] [place] [address] Feb, [facility] [place] [facility] [address] [id number] [place] [address] Feb, [facility] [place] [facility] [address] [id number] [place] [address] 14 Feb, 2012 [facility] [address] [id number] [place] [address] 14 Feb, 2012 [facility] [address] [id number] [place] [address] 13 Feb, 2012 [facility] [address] [id number] [place] [address] 13 Feb, 2012 [facility] [address] [id number] [place] [address] 12 Feb, 2012 [facility] [address] [id number] [place] [address] 12 Feb, 2012 [facility] [address] [id number] [place] [address] 12 Feb, 2012 [facility] [address] [id number] [place] [address] 12 Feb, 2012 [facility] [address] [id number] [place] [address] 12 Feb, 2012 [facility] [address] [id number] [place] [address] Feb, [facility] [address] [id number] [place] [address] 12 Feb, 2012 [facility] [address] [id number] [place] [address] Feb, [facility] [address] [id number] [place] [address] Feb, [facility] [place] [facility] [address] [id number] [place] [address] Feb, [facility] [address] [id number] [place] [address] Feb, [facility] [address] [id number] [place] [address] Feb, [facility] [place] [facility] [address] [id number] [place] [address] Feb, [facility] [place] [facility] [address] [id number] [place] [address] Feb, [facility] [place] [facility] [address] [id number] [place] [address] Jan, [facility] [place] [facility] [address] [id number] [place] [address] Jan, [facility] [place] [facility] [address] [id number] [place] [address] Dec, [facility] [place] [facility] [address] [id number] [place] [address] Dec, [facility] [place] [facility] [address] [id number] [place] [address] Dec, [facility] [place] [facility] [address] [id number] [place] [address] Dec, [facility] [place] [facility] [address] [id number] [place] [address] Nov, [facility] [place] [facility] [address] [id number] [place] [address] Nov, [facility] [place] [facility] [address] [id number] [place] [address] Nov, [facility] [place] [facility] [address] [id number], [place] [address] Nov, [facility] [place] [facility] [address] [id number] [place] [address] Oct, [facility] [place] [facility] [address] [id number] [place] [address] Oct, [facility] [place] [facility] [address] [id number] [place] [address] Sep, [facility] [place] [facility] [address] [id number], [place] [address] 17 Sep, 2011 [facility] [address] [id number] [place] [address] Sep, [facility] [place] [facility] [address] [id number] [place] [address] Aug, [facility] [place] [facility] [address] [id number] [place] [address] Aug, [facility] [place] [facility] [address] [id number] [place] [address] 14 Aug, 2011 [facility] [place] [facility] [address] [id number] [place] [address] Aug, [facility] [place] [facility] [address] [id number] [place] [address] Aug, [facility] [place] [facility] [address] [id number] [place] [address] July, [facility] [place] [facility] [address] [id number] [place] [address] July, [facility] [place] [facility] [address] [id number] [place] [address] July, [facility] [place] [facility] [address] [id number] [place] [address] July, [facility] [place] [facility] [address] [id number] [place] [address] July, [facility] [place] [facility] [address] [id number] [place] [address] Jun, [facility] [place] [facility] [address] [id number] [place] [address] May, [facility] [place] [facility] [address] [id number] [place] [address] 16 Apr, 2011 [facility] [place] [facility] [address] [id number] [place] [address] 13 Apr, 2011 [facility] [place] [facility] [address] [id number] [place] [address] 13 Apr, 2011 [facility] [place] [facility] [address] [id number] [place] [address] Mar, [facility] [place] [facility] [address] [id number] [place] [address] Mar, [facility] [place] [facility] [address] [id number] [place] [address] Mar, [facility] [place] [facility] [address] [id number] [place] [address] Mar, [facility] [place] [facility] [address] [id number] [place] [address] Mar, [facility] [place] [facility] [address] [id number] [place] [address] 17 Mar, 2011 [facility] [place] [facility] [address] [id number] [place] [address] 16 Mar, 2011 [facility] [address] [id number] [place] [address] Mar, [facility] [place] [facility] [address] [id number] [place] [address] Feb, [facility] [place] [facility] [address] [id number] [place] [address] Feb, [facility] [place] [facility] [address] [id number] [place] [address] Feb, [facility] [place] [facility] [address] [id number] [place] [address] Feb, [facility] [place] [facility] [address] [id number] [place] [address] Feb, [facility] [place] [facility] [address] [id number] [place] [address] Jan, [facility] [place] [facility] [address] [id number] [place] [address] Jan, [facility] [address] [id number] [place] [address] Jan, [facility] [place] [facility] [address] [id number] [place] [address] Jan, [facility] [place] [facility] [address] [id number] [place] [address] 14 Dec, 2010 [facility] [place] [facility] [address] [id number] [place] [address] 14 Dec, 2010 [facility] [place] [facility] [address] [id number] [place] [address] Sep, [facility] [place] [facility] [address] [id number] [place] [address] July, [facility] [place] [facility] [address] [id number] [place] [address] Apr, [facility] [place] [facility] [address] [id number] [place] [address] Mar, [facility] [place] [facility] [address] [id number] [place] [address] Feb, [facility] [place] [facility] [address] [id number] [place] [address] Feb, [facility] [place] [facility] [address] [id number] [place] [address] Feb, [facility] [place] [facility] [address] [id number], [place] [address] Feb, [facility] [place] [facility] [address] [id number] [place] [address] 15 Feb, 2010 [facility] [place] [facility] [address] [id number] [place] [address] Feb, [facility] [place] [facility] [address] [id number] [place] [address] Feb, [facility] [place] [facility] [address] [facility] [id number] [place] [address] Dec, [facility] [address] [facility] [id number] [place] [address] Jan, [facility] [address] [facility] [id number] [place] [address] Apr, IMMUNIZATIONS No Known Immunizations SOCIAL HISTORY Never Assessed REASON FOR VISIT Fainting, patient is throwing up flem, profuse sweating, dizziness. Symptoms sta rted one week ago and the fainting started today Meet Carmen MA PLAN OF CARE Activity Details Follow Up prn Reason: VITAL SIGNS Height 64 in 2017-06-08 Weight 168.5 lbs 2017-06-08 Temperature 97.5 degrees Fahrenheit 2017-06-08 Heart Rate 74 bpm 2017-06-08 Respiratory Rate 18 2017-06-08 BMI 28.92 kg/m2 2017-06-08 Blood pressure systolic 138 mmHg 2017-06-08 Blood pressure diastolic 98 mmHg 2017-06-08 MEDICATIONS Medication Instructions Dosage Frequency Start Date End Date Duration Status Tylenol 325 MG Orally every 6 hrs 2 tablets as needed 6h Active Enalapril Maleate Active Loratadine 10 MG Orally Once a day 1 tablet 24h Active NovoLog Active Artificial Tear Active Insulin Syringe-Needle U-40 1 subcutaneously 5 times per day as directed Mar, 30 days Active Flonase Not-Taking Aspirin Adult Low Strength 81 MG Orally Once a day 1 tablet 24h Active Digoxin Active Carvedilol Active Insulin Syringe 31G X 5/16 as directed May, 30 days Active Latuda 80 MG Orally Once a day 1 tablet with food 24h 30 day(s) Active Levemir Active Fish Oil Concentrate Active BD Pen Needle Ultrafine 29G X 12.7MM as directed May, Active RESULTS No Results PROCEDURES No Known [...] Surgery Hospitalization History Hyperglycemia 2012 Hospitalization History [facility] 11/28/2015-12/04/2015 2016 Hospitalization History Schizophrenia 09/26/16 Hospitalization History [facility], UTI, hyponatremia-[facility] 10/21/16 Hospitalization History stent placed 02/02/17 Hospitalization History stent placed 02/2017 Hospitalization History [facility]- Syncope, Dehydration and Hypotension. 06/08/2017
--- OUTSIDE RECORDS SUMMARY | 2018-09-05 12:55 | XMS REPORT ---
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.10 Active 9084420153296 Problem Diabetes E11.9 Active 52533087 Problem CVA (cerebral vascular accident) I63.9 Active 364764548 Problem Bipolar affective disorder, current episode mixed, current episode severity unspecified F31.60 Active 886518584 Problem Psychosis, unspecified psychosis type F29 Active [id number] ALLERGIES No Information ENCOUNTERS Encounter Location Date Diagnosis [facility] [id number] [place] [address] Oct, [facility] [id number] [place] [address] Oct, [facility] [id number] [place] [address] Sep, [facility] [id number] [place] [address] Aug, Upper respiratory tract infection, unspecified type J06.9 ; Chronic idiopathic constipation K59.04 ; Fluid level behind tympanic membrane of both ears H65.93 and Abdominal pain R10.9 [facility] [id number] [place] [address] July, Diabetes E11.9 [facility] [id number] [place] [address] Jun, Dehydration E86.0 ; Diabetes E11.9 and Hyperglycemia R73.9 [place] [id number] [place] [address] Jun, [place] [id number] [place] [id number] Jun, Vertigo R42 ; Syncope, unspecified syncope type R55 ; Diabetes E11.9 and Hyperglycemia R73.9 [place] [address] [address] May, Psychosis, unspecified psychosis type F29 and Bipolar affective disorder, current episode mixed, current episode severity unspecified F31.60 [place] [address] [address] May, [place] [address] [address] May, Diabetes E11.9 [facility] [address] [id number] Apr, Dental examination Z01.20 and Dental caries K02.9 [place] [id number] [place] [address] Apr, Dental examination Z01.20 and Dental abscess K04.7 [place] [id number] [place] [address] Mar, Psychosis, unspecified psychosis type F29 and Bipolar affective disorder, current episode mixed, current episode severity unspecified F31.60 [place] [id number] [place] [address] Mar, [place] [address] [address] Feb, [place] [id number] [place] [address] Feb, Left wrist pain M25.532 [place] [id number] [place] [address] Jan, [facility] [id number] [place] [address] Jan, Psychosis, unspecified psychosis type F29 and Bipolar affective disorder, current episode mixed, current episode severity unspecified F31.60 [facility] [id number] [place] [address] Jan, Diabetes E11.9 [facility] [address] [address] Jan, Left wrist pain M25.532 [facility] [address] [address] Dec, Psychosis, unspecified psychosis type F29 and Bipolar affective disorder, current episode mixed, current episode severity unspecified F31.60 [facility] [id number] [place] [address] Dec, Syncope, unspecified syncope type R55 ; Vertigo R42 ; Diabetes E11.9 ; Psychosis, unspecified psychosis type F29 and Fall, initial encounter W19.XXXA [facility] [address] [address] Dec, Diabetes E11.9 ; Neck pain M54.2 and Vertigo R42 [facility] [id number] [place] [address] Nov, [facility] [id number] [place] [address] 08 Nov, 2016 [facility] [id number] [place] [address] Nov, [facility] [id number] [place] [address] Nov, Diabetes E11.9 [facility] [id number] [place] [address] 05 Nov, 2016 Diabetes E11.9 [facility] [address] [place] [address] Oct, [facility] [address] [id number] [id number] Oct, [facility] [address] [facility] [id number], [place] [address] Oct, [facility] [address] [id number], [place] [address] Oct, Bipolar affective disorder, current episode mixed, current episode severity unspecified F31.60 [facility] [address] [id number] [id number] Sep, [facility] [address] [id number], [place] [address] Sep, Acute maxillary sinusitis, recurrence not specified J01.00 [facility] [address], [place] [address] Sep, Bipolar affective disorder, current episode mixed, current episode severity unspecified F31.60 [facility] [address] [facility] [id number], [place] [address] Sep, Diabetes E11.9 [facility] [address] [id number], [place] [address] July, Diabetes E11.9 [facility] [address] [id number], [place] [address] July, Diabetes E11.9 [facility] [address] [id number], [place] [address] Jun, [facility] [address] [facility] [id number], [place] [address] May, Bipolar affective disorder, current episode mixed, current episode severity unspecified F31.60 [facility] [address] [facility] [id number], [place] [address] May, Acute non-recurrent maxillary sinusitis J01.00 [facility] [id number] [address] 10 Apr, 2016 Psychosis, unspecified psychosis type F29 and Bipolar affective disorder, current episode mixed, current episode severity unspecified F31.60 [facility] [id number] [place] [address] 03 Apr, 2016 Dysuria R30.0 ; Other viral agents as the cause of diseases classified elsewhere B97.89 and Acute upper respiratory infection, unspecified J06.9 [place] [id number] [place] [address] Mar, Diabetes E11.9 ; Urine leukocytes R82.99 and Psychosis, unspecified psychosis type F29 [place] [id number] [place] [address] Mar, Diabetes E11.9 [place] [id number] [place] [address] Feb, [place] [id number] [place] [address] Jan, [facility] [id number] [place] [address] Dec, Psychosis, unspecified psychosis type F29 [facility] [id number] [place] [address] Dec, [facility] [id number] [place] [address] Dec, [facility] [id number] [place] [address] Dec, Psychosis, unspecified psychosis type F29 [facility] [id number] [place] [address] Nov, Schizoaffective disorder, unspecified type F25.9 [facility] [id number] [place] [address] Oct, [facility] [id number] [place] [address] Oct, Conjunctivitis of right eye, unspecified conjunctivitis type H10.9 [facility] [id number] [place] [address] Aug, [facility] [address] [id number] Jun, Encounter for dental examination Z01.20 [facility] [address] [address] Jun, Diabetes E11.9 and Bipolar affect, depressed F31.30 [facility] [address] [address] Jun, Other bipolar disorder F31.89 [facility] [id number] [place] [address] Jun, [facility] [address] [address] Apr, [facility] [id number] [place] [address] Dec, [facility] [id number] [place] [address] Dec, [facility] [id number] [place] [address] Sep, [facility] [id number] [place] [address] Jun, [facility] [id number] [place] [address] Jun, [facility] [id number] [place] [address] Mar, [facility] [id number] [place] [address] Mar, [facility] [id number] [place] [address] Nov, [facility] [place] [facility] [address] [id number] [place] [address] Nov, [facility] [place] [facility] [address] [id number] [place] [address] Sep, [facility] [place] [facility] [address] [id number] [place] [address] Sep, [facility] [place] [facility] [address] [id number] [place] [address] Sep, [facility] [place] [facility] [address] [id number] [place] [address] Sep, [facility] [place] [facility] [address] [id number] [place] [address] Sep, [facility] [place] [facility] [address] [id number] [place] [address] Aug, [facility] [place] [facility] [address] [id number] [place] [address] Aug, [facility] [place] [facility] [address] [id number] [place] [address] Aug, [facility] [place] [facility] [address] [id number] [place] [address] Aug, [facility] [place] [facility] [address] [id number] [place] [address] Aug, [facility] [place] [facility] [address] [id number], [place] [address] Aug, [facility] [place] [facility] [address] [id number] [place] [address] July, [facility] [place] [facility] [address] [id number] [place] [address] July, [facility] [place] [facility] [address] [id number] [place] [address] Jun, [facility] [place] [facility] [address] [id number] [place] [address] 24 Jun, 2013 [facility] [address] [id number] [place] [address] Jun, [facility] [address] [id number] [place] [address] Jun, [facility] [address] [id number] [place] [address] Jun, [facility] [place] [facility] [address] [id number] [place] [address] Jun, [facility] [address] [id number] [place] [address] Jun, [facility] [address] [id number] [place] [address] Jun, [facility] [address] [id number] [place] [address] May, [facility] [address] [id number] [place] [address] May, [facility] [place] [facility] [address] [id number] [place] [address] May, [facility] [address] [id number] [place] [address] May, [facility] [place] [facility] [address] [id number] [place] [address] May, [facility] [place] [facility] [address] [id number] [place] [address] May, [facility] [place] [facility] [address] [id number] [place] [address] May, [facility] [place] [facility] [address] [id number] [place] [address] May, [facility] [place] [facility] [address] [id number] [place] [address] May, [facility] [place] [facility] [address] [id number] [place] [address] Apr, [facility] [place] [facility] [address] [id number] [place] [address] Apr, [facility] [place] [facility] [address] [id number] [place] [address] Mar, [facility] [place] [facility] [address] [id number] [place] [address] Mar, [facility] [place] [facility] [address] [id number] [place] [address] Feb, [facility] [place] [facility] [address] [id number] [place] [address] Feb, [facility] [place] [facility] [address] [id number] [place] [address] Nov, [facility] [place] [facility] [address] [id number] [place] [address] Nov, [facility] [place] [facility] [address] [id number] [place] [address] Oct, [facility] [place] [facility] [address] [id number], [place] [address] Oct, [facility] [place] [facility] [address] [id number], [place] [address] Oct, [facility] [place] [facility] [address] [id number], [place] [address] Oct, [facility] [place] [facility] [address] [id number] [place] [address] Oct, [facility] [place] [facility] [address] [id number], [place] [address] Sep, [facility] [place] [facility] [address] [id number], [place] [address] Sep, [facility] [place] [facility] [address] [id number], [place] [address] 10 Sep, 2012 [facility] [address] [id number] [place] [address] 02 Sep, 2012 [facility] [address] [id number] [place] [address] Aug, [facility] [address] [facility] [id number] [place] [address] Aug, [facility] [address] [id number] [place] [address] 10 Aug, 2012 [facility] [address] [id number] [place] [address] Aug, [facility] [address] [id number] [place] [address] Jun, [facility] [address] [facility] [id number] [place] [address] Jun, [facility] [address] [id number] [place] [address] Jun, [facility] [address] [facility] [id number] [place] [address] Jun, [facility] [address] [facility] [id number] [place] [address] May, [facility] [address] [id number] [place] [address] 18 May, 2012 [facility] [place] [facility] [address] [id number], [place] [address] 18 May, 2012 [facility] [place] [facility] [address] [id number] [place] [address] 13 May, 2012 [facility] [place] [facility] [address] [facility] [id number] [place] [address] 11 May, 2012 [facility] [place] [facility] [address] [facility] [id number] [place] [address] 04 May, 2012 [facility] [place] [facility] [address] [id number] [place] [address] 21 Apr, 2012 [facility] [place] [facility] [address] [id number] [place] [address] 20 Apr, 2012 [facility] [place] [facility] [address] [id number] [place] [address] 19 Apr, 2012 [facility] [place] [facility] [address] [id number] [place] [address] 19 Apr, 2012 [facility] [place] [facility] [address] [id number] [place] [address] 19 Apr, 2012 [facility] [place] [facility] [address] [id number] [place] [address] 20 Feb, 2012 [facility] [address] [id number] [place] [address] 20 Feb, 2012 [facility] [address] [id number] [place] [address] 19 Feb, 2012 [facility] [place] [facility] [address] [id number] [place] [address] 19 Feb, 2012 [facility] [address] [id number] [place] [address] 19 Feb, 2012 [facility] [place] [facility] [address] [id number] [place] [address] 19 Feb, 2012 [facility] [place] [facility] [address] [id number] [place] [address] 19 Feb, 2012 [facility] [place] [facility] [address] [id number] [place] [address] 19 Feb, 2012 [facility] [place] [facility] [address] [id number] [place] [address] 14 Feb, 2012 [facility] [place] [facility] [address] [id number] [place] [address] 14 Feb, 2012 [facility] [place] [facility] [address] [id number] [place] [address] Feb, [facility] [place] [facility] [address] [id number] [place] [address] Feb, [facility] [place] [facility] [address] [id number] [place] [address] Feb, [facility] [place] [facility] [address] [id number] [place] [address] Feb, [facility] [place] [facility] [address] [id number] [place] [address] Feb, [facility] [place] [facility] [address] [id number] [place] [address] Feb, [facility] [place] [facility] [address] [id number] [place] [address] Feb, [facility] [place] [facility] [address] [id number] [place] [address] Feb, [facility] [place] [facility] [address] [id number] [place] [address] Feb, [facility] [place] [facility] [address] [id number] [place] [address] Feb, [facility] [place] [facility] [address] [id number] [place] [address] Feb, [facility] [place] [facility] [address] [id number] [place] [address] Feb, [facility] [place] [facility] [address] [id number] [place] [address] Feb, [facility] [place] [facility] [address] [id number] [place] [address] Feb, [facility] [place] [facility] [address] [id number] [place] [address] Feb, [facility] [place] [facility] [address] [id number] [place] [address] Feb, [facility] [place] [facility] [address] [id number] [place] [address] Jan, [facility] [place] [facility] [address] [id number] [place] [address] Jan, [facility] [place] [facility] [address] [id number] [place] [address] Dec, [facility] [place] [facility] [address] [id number] [place] [address] Dec, [facility] [place] [facility] [address] [id number] [place] [address] Dec, [facility] [place] [facility] [address] [id number] [place] [address] Dec, [facility] [place] [facility] [address] [id number] [place] [address] Nov, [facility] [place] [facility] [address] [id number] [place] [address] Nov, [facility] [place] [facility] [address] [id number] [place] [address] Nov, [facility] [place] [facility] [address] [id number] [place] [address] Nov, [facility] [place] [facility] [address] [id number] [place] [address] Oct, [facility] [place] [facility] [address] [id number] [place] [address] Oct, [facility] [place] [facility] [address] [id number] [place] [address] Sep, [facility] [place] [facility] [address] [id number] [place] [address] Sep, [facility] [place] [facility] [address] [id number] [place] [address] Sep, [facility] [place] [facility] [address] [id number] [place] [address] Aug, [facility] [place] [facility] [address] [id number] [place] [address] Aug, [facility] [place] [facility] [address] [id number] [place] [address] Aug, [facility] [place] [facility] [address] [id number] [place] [address] Aug, [facility] [place] [facility] [address] [id number] [place] [address] Aug, [facility] [place] [facility] [address] [id number] [place] [address] July, [facility] [place] [facility] [address] [id number] [place] [address] July, [facility] [place] [facility] [address] [id number] [place] [address] July, [facility] [place] [facility] [address] [id number] [place] [address] July, [facility] [place] [facility] [address] [id number] [place] [address] July, [facility] [place] [facility] [address] [id number] [place] [address] Jun, [facility] [place] [facility] [address] [id number] [place] [address] May, [facility] [place] [facility] [address] [id number] [place] [address] 16 Apr, 2011 [facility] [place] [facility] [address] [id number] [place] [address] Apr, [facility] [place] [facility] [address] [id number] [place] [address] Apr, [facility] [place] [facility] [address] [id number] [place] [address] Mar, [facility] [place] [facility] [address] [id number] [place] [address] 31 Mar, 2011 [facility] [address] [id number] [place] [address] Mar, [facility] [place] [facility] [address] [id number] [place] [address] Mar, [facility] [address] [id number] [place] [address] Mar, [facility] [place] [facility] [address] [id number] [place] [address] 17 Mar, 2011 [facility] [address] [id number] [place] [address] 16 Mar, 2011 [facility] [place] [facility] [address] [id number] [place] [address] Mar, [facility] [address] [id number] [place] [address] Feb, [facility] [place] [facility] [address] [id number] [place] [address] Feb, [facility] [place] [facility] [address] [id number] [place] [address] Feb, [facility] [place] [facility] [address] [id number] [place] [address] Feb, [facility] [place] [facility] [address] [id number] [place] [address] Feb, [facility] [place] [facility] [address] [id number] [place] [address] Jan, [facility] [place] [facility] [address] [id number] [place] [address] Jan, [facility] [place] [facility] [address] [id number] [place] [address] Jan, [facility] [place] [facility] [address] [id number] [place] [address] Jan, [facility] [place] [facility] [address] [id number] [place] [address] 14 Dec, 2010 [facility] [address] [id number] [place] [address] 14 Dec, 2010 [facility] [address] [id number] [place] [address] 13 Sep, 2010 [facility] [address] [id number] [place] [address] July, [facility] [address] [id number] [place] [address] Apr, [facility] [address] [id number] [place] [address] Mar, [facility] [address] [id number] [place] [address] Feb, [facility] [address] [id number] [place] [address] Feb, [facility] [address] [id number] [place] [address] Feb, [facility] [address] [id number] [place] [address] Feb, [facility] [address] [id number] [place] [address] 15 Feb, 2010 [facility] [address] [id number] [place] [address] Feb, [facility] [place] [facility] [address] [id number] [place] [address] Feb, [facility] [place] [facility] [address] [id number] [place] [address] Dec, [facility] [place] [facility] [address] [id number] [place] [address] Jan, [facility] [place] [facility] [address] [id number] [place] [address] Apr, IMMUNIZATIONS No Known Immunizations SOCIAL HISTORY Never Assessed REASON FOR VISIT Hospital admit/DC PLAN OF CARE VITAL SIGNS MEDICATIONS Medication Instructions Dosage Frequency Start Date End Date Duration Status Carvedilol 12.5 MG Orally 2 times a day 1 tablet 12h Active Levemir 100 UNIT/ML Subcutaneous 2 times a day 10 units 12h Active Insulin Syringe 31G X 5/16 as directed May, 30 days Active Artificial Tear Not-Taking Latuda 80 MG Orally Once a day 1 tablet with food 24h 30 day(s) Active Enalapril Maleate 20 MG Orally Once a day 1 tablet 24h Active BD Pen Needle Ultrafine 29G X 12.7MM as directed May, Active NovoLog 100 UNIT/ML Subcutaneous before meals 10 units Active Atorvastatin Calcium 40 MG Orally Once a day 1 tablet 24h Active Flonase Not-Taking Fish Oil 1200 MG Orally Once a day 1 capsule 24h Active Insulin Syringe-Needle U-40 1 subcutaneously 5 times per day as directed Mar, 30 days Active Acetaminophen Extra Strength 500 mg Orally every 6 hrs 2 tablets as needed 6h Active Tylenol PM Extra Strength 500-25 MG Orally Once a day 1 tablet at bedtime as needed 24h Active Aspirin Adult Low Strength 81 MG Orally Once a day 1 tablet 24h Active Loperamide HCl 2 MG Orally Four times a day 1 capsule as needed 6h Active Digoxin 125 MCG Orally Once a day 1 tablet 24h Active Loratadine 10 MG Orally Once a day 1 tablet 24h Not-Taking Plavix 75 MG Orally Once a day 1 tablet 24h Active Multivitamin Adults - Active Tylenol 325 MG Orally every 6 hrs 2 tablets as needed 6h Not-Taking DiphenhydrAMINE HCl 25 MG Orally at bedtime 1 capsule as needed Active RESULTS No Results PROCEDURES No Known [...] Hospitalization History Hyperglycemia 2012 Hospitalization History [facility] 11/28/2015-12/04/2015 2016 Hospitalization History Schizophrenia 09/26/16 Hospitalization History [facility], UTI, hyponatremia-[facility] 8/15/17 Hospitalization History stent placed 02/02/17 Hospitalization History stent placed 02/2017 Hospitalization History [facility]- Syncope, Dehydration and Hypotension. 06/08/2017
--- OUTSIDE RECORDS SUMMARY | 2018-09-05 12:55 | XMS REPORT ---
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 Active 8883651252666 Problem Diabetes E11.9 Active 17211941 Problem CVA (cerebral vascular accident) I63.9 Active 221083418 Problem Bipolar affective disorder, current episode mixed, current episode severity unspecified F31.60 Active 989651672 Problem Psychosis, unspecified psychosis type F29 Active [id number] ALLERGIES No Information ENCOUNTERS Encounter Location Date Diagnosis [facility] [place] [id number] [place] [address] Oct, [facility] [place] [address] [address] Oct, [facility] [place] [id number] [place] [address] Sep, [facility] [id number] [place] [address] Aug, Upper respiratory tract infection, unspecified type J06.9 ; Chronic idiopathic constipation K59.04 ; Fluid level behind tympanic membrane of both ears H65.93 and Abdominal pain R10.9 [facility] [place] [id number] [place] [address] July, Diabetes E11.9 [facility] [place] [address] [address] Jun, Dehydration E86.0 ; Diabetes E11.9 and Hyperglycemia R73.9 [facility] [place] [id number] [place] [address] Jun, [place] [id number] [place] [address] Jun, Vertigo R42 ; Syncope, unspecified syncope type R55 ; Diabetes E11.9 and Hyperglycemia R73.9 [place] [address] [address] May, Psychosis, unspecified psychosis type F29 and Bipolar affective disorder, current episode mixed, current episode severity unspecified F31.60 [place] [id number] [place] [address] May, [place] [address] [address] May, Diabetes E11.9 [facility] [address] [id number] Apr, Dental examination Z01.20 and Dental caries K02.9 [place] [id number] [place] [address] Apr, Dental examination Z01.20 and Dental abscess K04.7 [place] [id number] [place] [address] Mar, Psychosis, unspecified psychosis type F29 and Bipolar affective disorder, current episode mixed, current episode severity unspecified F31.60 [place] [id number] [place] [address] Mar, [place] [id number] [place] [address] Feb, [place] [id number] [place] [address] Feb, Left wrist pain M25.532 [place] [address] [address] Jan, [facility] [place] [address] [address] Jan, Psychosis, unspecified psychosis type F29 and Bipolar affective disorder, current episode mixed, current episode severity unspecified F31.60 [facility] [place] [id number] [place] [address] Jan, Diabetes E11.9 [facility] [id number] [place] [address] Jan, Left wrist pain M25.532 [place] [id number] [place] [address] Dec, Psychosis, unspecified psychosis type F29 and Bipolar affective disorder, current episode mixed, current episode severity unspecified F31.60 [place] [id number] [place] [address] Dec, Syncope, unspecified syncope type R55 ; Vertigo R42 ; Diabetes E11.9 ; Psychosis, unspecified psychosis type F29 and Fall, initial encounter W19.XXXA [facility] [place] [id number] [place] [address] Dec, Diabetes E11.9 ; Neck pain M54.2 and Vertigo R42 [facility] [place] [address] [address] Nov, [facility] [id number] [place] [address] Nov, [facility] [place] [id number] [place] [address] Nov, [facility] [place] [id number] [place] [address] Nov, Diabetes E11.9 [facility] [place] [address] [address] Nov, Diabetes E11.9 [facility] [place] [id number] [address] Oct, [facility] [address] [id number] [id number] Oct, [facility] [place] [address] [facility] [id number] [address] Oct, [facility] [place] [address] [facility] [id number], [place] [address] Oct, Bipolar affective disorder, current episode mixed, current episode severity unspecified F31.60 [facility] [address] [id number] [id number] Sep, [facility] [place] [address] [facility] [id number], [place] [address] Sep, Bipolar affective disorder, current episode mixed, current episode severity unspecified F31.60 [facility] [id number] [address] Sep, Acute maxillary sinusitis, recurrence not specified J01.00 [facility] [place] [address] [facility] [id number], [place] [address] Sep, Diabetes E11.9 [facility] [place] [address] [id number] [address] July, Diabetes E11.9 [facility] [place] [id number] [address] July, Diabetes E11.9 [facility] [place] [address] [facility] [id number], [place] [address] Jun, [facility] [place] [address] [facility] [id number], [place] [address] May, Bipolar affective disorder, current episode mixed, current episode severity unspecified F31.60 [facility] [address] [facility] [id number], [place] [address] May, Acute non-recurrent maxillary sinusitis J01.00 [facility] [place] [id number] [place] [address] 10 Apr, 2016 Psychosis, unspecified psychosis type F29 and Bipolar affective disorder, current episode mixed, current episode severity unspecified F31.60 [facility] WALK IN [facility] [id number] [place] [address] 03 Apr, 2016 Dysuria R30.0 ; Other viral agents as the cause of diseases classified elsewhere B97.89 and Acute upper respiratory infection, unspecified J06.9 [place] [id number] [place] [address] Mar, Diabetes E11.9 ; Urine leukocytes R82.99 and Psychosis, unspecified psychosis type F29 [place] [id number] [place] [address] Mar, Diabetes E11.9 [place] [id number] [place] [address] Feb, [place] [id number] [place] [address] Jan, [place] [id number] [place] [address] Dec, Psychosis, unspecified psychosis type F29 [place] [id number] [place] [address] Dec, [facility] [id number] [place] [address] Dec, [facility] [place] [id number] [place] [address] Dec, Psychosis, unspecified psychosis type F29 [place] [id number] [place] [address] Nov, Schizoaffective disorder, unspecified type F25.9 [facility] [place] [id number] [place] [address] Oct, [facility] [id number] [place] [address] Oct, Conjunctivitis of right eye, unspecified conjunctivitis type H10.9 [facility] [place] [id number] [place] [address] Aug, [facility] [address] [place] [id number] Jun, Encounter for dental examination Z01.20 [facility] [place] [address] [address] Jun, Diabetes E11.9 and Bipolar affect, depressed F31.30 [facility] [place] [address] [address] Jun, Other bipolar disorder F31.89 [facility] [place] [id number] [place] [address] Jun, [facility] [place] [id number] [place] [address] Apr, [facility] [place] [id number] [place] [address] Dec, [facility] [place] [id number] [place] [address] Dec, [facility] [place] [id number] [place] [address] Sep, [facility] [place] [id number] [place] [address] Jun, [facility] [place] [id number] [place] [address] Jun, [facility] [place] [id number] [place] [address] Mar, [facility] [place] [id number] [place] [address] Mar, [facility] [place] [id number] [place] [address] Nov, [facility] [place] [facility] [address] [id number] [place] [address] Nov, [facility] [place] [facility] [address] [id number] [place] [address] Sep, [facility] [place] [facility] [address] [id number] [place] [address] Sep, [facility] [place] [facility] [address] [id number] [place] [address] Sep, [facility] [place] [facility] [address] [id number] [place] [address] Sep, [facility] [place] [facility] [address] [id number] [place] [address] Sep, [facility] [place] [facility] [address] [id number] [place] [address] Aug, [facility] [place] [facility] [address] [id number] [place] [address] Aug, [facility] [place] [facility] [address] [id number] [place] [address] Aug, [facility] [place] [facility] [address] [id number] [place] [address] Aug, [facility] [place] [facility] [address] [id number] [place] [address] Aug, [facility] [place] [facility] [address] [id number] [place] [address] Aug, [facility] [place] [facility] [address] [id number] [place] [address] July, [facility] [place] [facility] [address] [id number] [place] [address] July, [facility] [place] [facility] [address] [id number] [place] [address] Jun, [facility] [place] [facility] [address] [id number] [place] [address] 24 Jun, 2013 [facility] [place] [facility] [address] [id number] [place] [address] Jun, [facility] [place] [facility] [address] [id number] [place] [address] Jun, [facility] [place] [facility] [address] [id number] [place] [address] Jun, [facility] [place] [facility] [address] [id number] [place] [address] Jun, [facility] [place] [facility] [address] [id number] [place] [address] Jun, [facility] [place] [facility] [address] [id number] [place] [address] Jun, [facility] [place] [facility] [address] [id number] [place] [address] May, [facility] [place] [facility] [address] [id number] [place] [address] May, [facility] [place] [facility] [address] [id number] [place] [address] May, [facility] [place] [facility] [address] [id number] [place] [address] May, [facility] [place] [facility] [address] [id number] [place] [address] May, [facility] [place] [facility] [address] [id number] [place] [address] May, [facility] [place] [facility] [address] [id number] [place] [address] May, [facility] [place] [facility] [address] [id number] [place] [address] May, [facility] [place] [facility] [address] [id number] [place] [address] May, [facility] [address] [id number] [place] [address] Apr, [facility] [place] [facility] [address] [id number] [place] [address] Apr, [facility] [place] [facility] [address] [id number] [place] [address] Mar, [facility] [place] [facility] [address] [id number] [place] [address] Mar, [facility] [place] [facility] [address] [id number] [place] [address] Feb, [facility] [place] [facility] [address] [id number] [place] [address] Feb, [facility] [place] [facility] [address] [id number] [place] [address] Nov, [facility] [place] [facility] [address] [id number] [place] [address] Nov, [facility] [place] [facility] [address] [id number] [place] [address] Oct, [facility] [place] [facility] [address] [id number] [place] [address] Oct, [facility] [place] [facility] [address] [id number] [place] [address] Oct, [facility] [place] [facility] [address] [id number] [address] Oct, [facility] [place] [facility] [address] [id number] [place] [address] Oct, [facility] [place] [facility] [address] [id number] [place] [address] Sep, [facility] [place] [facility] [address] [id number] [place] [address] Sep, [facility] [place] [facility] [address] [id number] [place] [address] 10 Sep, 2012 [facility] [address] [id number] [place] [address] 02 Sep, 2012 [facility] [address] [id number] [place] [address] Aug, [facility] [address] [id number] [place] [address] Aug, [facility] [place] [facility] [address] [id number] [place] [address] 10 Aug, 2012 [facility] [address] [id number] [place] [address] Aug, [facility] [address] [id number] [place] [address] Jun, [facility] [address] [id number] [place] [address] Jun, [facility] [address] [id number] [place] [address] Jun, [facility] [address] [id number] [place] [address] Jun, [facility] [address] [facility] [id number] [place] [address] May, [facility] [place] [facility] [address] [id number] [place] [address] 18 May, 2012 [facility] [place] [facility] [address] [id number] [place] [address] 18 May, 2012 [facility] [place] [facility] [address] [id number] [place] [address] 13 May, 2012 [facility] [place] [facility] [address] [id number] [place] [address] 11 May, 2012 [facility] [place] [facility] [address] [id number] [place] [address] May, [facility] [place] [facility] [address] [id number] [place] [address] 21 Apr, 2012 [facility] [place] [facility] [address] [id number] [place] [address] 20 Apr, 2012 [facility] [place] [facility] [address] [id number] [place] [address] 19 Apr, 2012 [facility] [place] [facility] [address] [id number] [place] [address] 19 Apr, 2012 [facility] [place] [facility] [address] [id number] [place] [address] 19 Apr, 2012 [facility] [place] [facility] [address] [id number] [place] [address] 20 Feb, 2012 [facility] [place] [facility] [address] [id number] [place] [address] 20 Feb, 2012 [facility] [place] [facility] [address] [id number] [place] [address] 19 Feb, 2012 [facility] [place] [facility] [address] [id number] [place] [address] 19 Feb, 2012 [facility] [place] [facility] [address] [id number] [place] [address] 19 Feb, 2012 [facility] [place] [facility] [address] [id number] [place] [address] 19 Feb, 2012 [facility] [place] [facility] [address] [id number] [place] [address] 19 Feb, 2012 [facility] [place] [facility] [address] [id number] [place] [address] 19 Feb, 2012 [facility] [place] [facility] [address] [id number] [place] [address] 14 Feb, 2012 [facility] [place] [facility] [address] [id number] [place] [address] 14 Feb, 2012 [facility] [place] [facility] [address] [id number] [place] [address] 13 Feb, 2012 [facility] [address] [id number] [place] [address] 13 Feb, 2012 [facility] [place] [facility] [address] [id number] [place] [address] Feb, [facility] [address] [id number] [place] [address] Feb, [facility] [place] [facility] [address] [id number] [place] [address] Feb, [facility] [address] [id number] [place] [address] Feb, [facility] [place] [facility] [address] [id number] [place] [address] Feb, [facility] [address] [id number] [place] [address] Feb, [facility] [place] [facility] [address] [id number] [place] [address] Feb, [facility] [place] [facility] [address] [id number] [place] [address] Feb, [facility] [place] [facility] [address] [id number] [place] [address] Feb, [facility] [place] [facility] [address] [id number] [place] [address] Feb, [facility] [place] [facility] [address] [id number] [address] Feb, [facility] [place] [facility] [address] [id number] [place] [address] Feb, [facility] [place] [facility] [address] [id number] [place] [address] Feb, [facility] [place] [facility] [address] [id number] [place] [address] Feb, [facility] [place] [facility] [address] [id number] [place] [address] Jan, [facility] [place] [facility] [address] [id number] [place] [address] Jan, [facility] [place] [facility] [address] [id number] [place] [address] Dec, [facility] [place] [facility] [address] [id number] [place] [address] Dec, [facility] [place] [facility] [address] [id number] [place] [address] Dec, [facility] [place] [facility] [address] [id number] [place] [address] Dec, [facility] [place] [facility] [address] [id number] [place] [address] Nov, [facility] [place] [facility] [address] [id number] [place] [address] Nov, [facility] [place] [facility] [address] [id number] [place] [address] Nov, [facility] [place] [facility] [address] [id number] [place] [address] Nov, [facility] [place] [facility] [address] [id number] [place] [address] Oct, [facility] [place] [facility] [address] [id number] [place] [address] Oct, [facility] [place] [facility] [address] [id number] [place] [address] Sep, [facility] [place] [facility] [address] [id number] [place] [address] Sep, [facility] [place] [facility] [address] [id number] [place] [address] Sep, [facility] [place] [facility] [address] [id number] [place] [address] Aug, [facility] [place] [facility] [address] [id number] [place] [address] Aug, [facility] [place] [facility] [address] [id number] [place] [address] Aug, [facility] [place] [facility] [address] [id number] [place] [address] Aug, [facility] [place] [facility] [address] [id number] [place] [address] Aug, [facility] [place] [facility] [address] [id number] [place] [address] July, [facility] [place] [facility] [address] [id number] [place] [address] July, [facility] [place] [facility] [address] [id number] [place] [address] July, [facility] [place] [facility] [address] [id number] [place] [address] July, [facility] [place] [facility] [address] [id number] [place] [address] July, [facility] [place] [facility] [address] [id number] [place] [address] Jun, [facility] [place] [facility] [address] [id number] [place] [address] May, [facility] [place] [facility] [address] [id number] [place] [address] 16 Apr, 2011 [facility] [place] [facility] [address] [id number] [place] [address] Apr, [facility] [place] [facility] [address] [id number] [place] [address] Apr, [facility] [place] [facility] [address] [id number] [place] [address] Mar, [facility] [place] [facility] [address] [id number] [place] [address] 31 Mar, 2011 [facility] [address] [id number] [place] [address] Mar, [facility] [address] [id number] [place] [address] Mar, [facility] [address] [id number] [place] [address] Mar, [facility] [address] [id number] [place] [address] 17 Mar, 2011 [facility] [address] [id number] [place] [address] Mar, [facility] [address] [id number] [place] [address] Mar, [facility] [address] [id number] [place] [address] Feb, [facility] [address] [id number] [place] [address] Feb, [facility] [address] [id number] [place] [address] Feb, [facility] [address] [id number] [place] [address] Feb, [facility] [address] [id number] [place] [address] Feb, [facility] [address] [id number] [place] [address] Jan, [facility] [address] [id number] [place] [address] Jan, [facility] [address] [id number] [place] [address] Jan, [facility] [address] [id number] [place] [address] Jan, [facility] [address] [id number] [place] [address] 14 Dec, 2010 [facility] [place] [facility] [address] [id number] [place] [address] 14 Dec, 2010 [facility] [place] [facility] [address] [id number] [place] [address] 13 Sep, 2010 [facility] [place] [facility] [address] [id number] [place] [address] July, [facility] [place] [facility] [address] [id number] [place] [address] Apr, [facility] [place] [facility] [address] [id number] [place] [address] Mar, [facility] [place] [facility] [address] [id number] [place] [address] Feb, [facility] [place] [facility] [address] [id number] [place] [address] Feb, [facility] [place] [facility] [address] [id number] [place] [address] Feb, [facility] [place] [facility] [address] [id number] [place] [address] Feb, [facility] [place] [facility] [address] [id number] [place] [address] 15 Feb, 2010 [facility] [place] [facility] [address] [id number] [place] [address] Feb, [facility] [place] [facility] [address] [id number] [place] [address] Feb, [facility] [place] [facility] [address] [id number] [place] [address] Dec, [facility] [place] [facility] [address] [id number] [place] [address] Jan, [facility] [place] [facility] [address] [id number] [place] [address] 14 Apr, 2008 IMMUNIZATIONS No Known Immunizations SOCIAL HISTORY Never Assessed REASON FOR VISIT f/u PLAN OF CARE Activity Details Follow Up 2 Months, 3 Months Reason: VITAL SIGNS MEDICATIONS Medication Instructions Dosage Frequency Start Date End Date Duration Status Artificial Tear Unknown BD Pen Needle Ultrafine 29G X 12.7MM as directed May, Unknown Carvedilol Unknown Digoxin Unknown Fish Oil Concentrate Unknown NovoLog Unknown Levemir Unknown Flonase Unknown Insulin Syringe-Needle U-40 1 subcutaneously 5 times per day as directed Mar, 30 days Unknown Insulin Syringe 31G X 5/16 as directed May, 30 days Unknown Tylenol 325 MG Orally every 6 hrs 2 tablets as needed 6h Unknown Aspirin Adult Low Strength 81 MG Orally Once a day 1 tablet 24h Unknown Enalapril Maleate Unknown Latuda 80 MG Orally Once a day 1 tablet with food 24h 30 day(s) Active Loratadine 10 MG Orally Once a day 1 tablet 24h Unknown RESULTS No Results PROCEDURES No Known procedures [...] Surgery Hospitalization History Hyperglycemia 2012 Hospitalization History [facility] 11/28/2015-12/04/2015 2016 Hospitalization History Schizophrenia 09/26/16 Hospitalization History AMS, UTI, hyponatremia-[facility] 10/21/16 Hospitalization History stent placed 02/02/17 Hospitalization History stent placed 02/2017 Hospitalization History [facility]- Syncope, Dehydration and Hypotension. 06/08/2017
--- OUTSIDE RECORDS SUMMARY | 2018-09-05 12:56 | XMS REPORT ---
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 Active 3016274761848 Problem Diabetes E11.9 Active 42548898 Problem CVA (cerebral vascular accident) I63.9 Active 303384621 Problem Bipolar affective disorder, current episode mixed, current episode severity unspecified F31.60 Active 323192273 Problem Psychosis, unspecified psychosis type F29 Active 66241441 ALLERGIES No Information ENCOUNTERS Encounter Location Date Diagnosis [facility] [address] [address] Oct, [facility] [address] [address] Sep, [facility] [address] [address] Sep, [facility] [address] [address] Aug, Upper respiratory tract infection, unspecified type J06.9 ; Chronic idiopathic constipation K59.04 ; Fluid level behind tympanic membrane of both ears H65.93 and Abdominal pain R10.9 [facility] [id number] [place] [address] July, Diabetes E11.9 [facility] [address] [address] Jun, Dehydration E86.0 ; Diabetes E11.9 and Hyperglycemia R73.9 [facility] [id number] [place] [address] Jun, [facility] [id number] [place] [address] Jun, Vertigo R42 ; Syncope, unspecified syncope type R55 ; Diabetes E11.9 and Hyperglycemia R73.9 [place] [id number] [place] [address] May, Psychosis, unspecified psychosis type F29 and Bipolar affective disorder, current episode mixed, current episode severity unspecified F31.60 [place] [id number] [place] [address] May, [place] [address] [address] May, Diabetes E11.9 [facility] [address] [id number] Apr, Dental examination Z01.20 and Dental caries K02.9 [place] [id number] [place] [address] Apr, Dental examination Z01.20 and Dental abscess K04.7 [place] [id number] [place] [address] Mar, Psychosis, unspecified psychosis type F29 and Bipolar affective disorder, current episode mixed, current episode severity unspecified F31.60 [place] [id number] [place] [address] Mar, [place] [address] [address] Feb, [place] [id number] [place] [address] Feb, Left wrist pain M25.532 [place] [id number] [place] [address] Jan, [facility] [id number] [place] [address] Jan, Psychosis, unspecified psychosis type F29 and Bipolar affective disorder, current episode mixed, current episode severity unspecified F31.60 [facility] [id number] [place] [address] Jan, Diabetes E11.9 [facility] [id number] [place] [address] Jan, Left wrist pain M25.532 [place] [id number] [place] [address] Dec, Psychosis, unspecified psychosis type F29 and Bipolar affective disorder, current episode mixed, current episode severity unspecified F31.60 [place] [id number] [place] [address] Dec, Syncope, unspecified syncope type R55 ; Vertigo R42 ; Diabetes E11.9 ; Psychosis, unspecified psychosis type F29 and Fall, initial encounter W19.XXXA [place] [id number] [place] [address] Dec, Diabetes E11.9 ; Neck pain M54.2 and Vertigo R42 [facility] [id number] [address] Nov, [facility] [id number] [place] [address] Nov, [facility] [id number] [place] [address] Nov, [place] [id number] [place] [address] Nov, Diabetes E11.9 [facility] [id number] [place] [address] Nov, Diabetes E11.9 [place] [address] [id number] [address] Oct, [facility] [address] [id number] [id number] Oct, [facility] [address] [facility] [id number], [place] [address] Oct, [facility] [address] [address] Oct, Bipolar affective disorder, current episode mixed, current episode severity unspecified F31.60 [facility] [address] [id number] [id number] Sep, [facility] [address] [id number] [address] Sep, Acute maxillary sinusitis, recurrence not specified J01.00 [facility] [address] [address] Sep, Bipolar affective disorder, current episode mixed, current episode severity unspecified F31.60 [facility] [address] [facility] [id number] [address] Sep, Diabetes E11.9 [facility] [address] [id number] [address] July, Diabetes E11.9 [facility] [address] [address] July, Diabetes E11.9 [facility] [address] [facility] [id number] [address] Jun, [facility] [address] [id number] [address] May, Bipolar affective disorder, current episode mixed, current episode severity unspecified F31.60 [facility] [address] [facility] [id number], [place] [address] May, Acute non-recurrent maxillary sinusitis J01.00 [facility] [id number] [place] [address] 10 Apr, 2016 Psychosis, unspecified psychosis type F29 and Bipolar affective disorder, current episode mixed, current episode severity unspecified F31.60 [facility] [id number] [place] [address] 03 Apr, 2016 Dysuria R30.0 ; Other viral agents as the cause of diseases classified elsewhere B97.89 and Acute upper respiratory infection, unspecified J06.9 [place] [id number] [place] [address] Mar, Diabetes E11.9 ; Urine leukocytes R82.99 and Psychosis, unspecified psychosis type F29 [place] [id number] [place] [address] Mar, Diabetes E11.9 [place] [id number] [place] [address] Feb, [place] [id number] [place] [address] Jan, [place] [id number] [place] [address] Dec, Psychosis, unspecified psychosis type F29 [place] [id number] [place] [address] Dec, [facility] [id number] [place] [address] Dec, [facility] [id number] [place] [address] Dec, Psychosis, unspecified psychosis type F29 [place] [id number] [place] [address] Nov, Schizoaffective disorder, unspecified type F25.9 [facility] [id number] [place] [address] Oct, [facility] [id number] [place] [address] Oct, Conjunctivitis of right eye, unspecified conjunctivitis type H10.9 [facility] [id number] [place] [address] Aug, [facility] [id number] [place] [id number] Jun, Encounter for dental examination Z01.20 [facility] [address] [address] Jun, Diabetes E11.9 and Bipolar affect, depressed F31.30 [facility] [address] [address] Jun, Other bipolar disorder F31.89 [facility] [id number] [place] [address] Jun, [facility] [address] [address] Apr, [facility] [id number] [place] [address] Dec, [facility] [id number] [place] [address] Dec, [facility] [id number] [place] [address] Sep, [facility] [id number] [place] [address] Jun, [facility] [id number] [place] [address] Jun, [facility] [id number] [place] [address] Mar, [facility] [id number] [place] [address] Mar, [facility] [id number] [place] [address] Nov, [facility] [place] [facility] [address] [id number] [place] [address] Nov, [facility] [place] [facility] [address] [id number] [place] [address] Sep, [facility] [place] [facility] [address] [id number] [place] [address] Sep, [facility] [place] [facility] [address] [id number] [place] [address] Sep, [facility] [place] [facility] [address] [id number] [place] [address] Sep, [facility] [place] [facility] [address] [id number] [place] [address] Sep, [facility] [place] [facility] [address] [id number] [place] [address] Aug, [facility] [place] [facility] [address] [id number] [place] [address] Aug, [facility] [place] [facility] [address] [id number] [place] [address] Aug, [facility] [place] [facility] [address] [id number] [place] [address] Aug, [facility] [place] [facility] [address] [id number] [place] [address] Aug, [facility] [place] [facility] [address] [id number], [place] [address] Aug, [facility] [place] [facility] [address] [id number] [place] [address] July, [facility] [place] [facility] [address] [id number] [place] [address] July, [facility] [place] [facility] [address] [id number] [place] [address] Jun, [facility] [place] [facility] [address] [id number] [place] [address] 24 Jun, 2013 [facility] [place] [facility] [address] [id number] [place] [address] Jun, [facility] [place] [facility] [address] [id number] [place] [address] Jun, [facility] [place] [facility] [address] [id number] [place] [address] Jun, [facility] [place] [facility] [address] [id number] [place] [address] Jun, [facility] [place] [facility] [address] [id number] [place] [address] Jun, [facility] [place] [facility] [address] [id number] [place] [address] Jun, [facility] [place] [facility] [address] [id number] [place] [address] May, [facility] [place] [facility] [address] [id number] [place] [address] May, [facility] [place] [facility] [address] [id number] [place] [address] May, [facility] [place] [facility] [address] [id number] [place] [address] May, [facility] [place] [facility] [address] [id number] [place] [address] May, [facility] [place] [facility] [address] [id number] [place] [address] May, [facility] [place] [facility] [address] [id number] [place] [address] May, [facility] [place] [facility] [address] [id number] [place] [address] May, [facility] [place] [facility] [address] [id number] [place] [address] May, [facility] [place] [facility] [address] [id number] [place] [address] Apr, [facility] [place] [facility] [address] [id number] [place] [address] Apr, [facility] [place] [facility] [address] [id number] [place] [address] Mar, [facility] [place] [facility] [address] [id number] [place] [address] Mar, [facility] [place] [facility] [address] [id number] [place] [address] Feb, [facility] [place] [facility] [address] [id number] [place] [address] Feb, [facility] [place] [facility] [address] [id number] [place] [address] Nov, [facility] [place] [facility] [address] [id number] [place] [address] Nov, [facility] [place] [facility] [address] [id number] [place] [address] Oct, [facility] [place] [facility] [address] [id number] [place] [address] Oct, [facility] [place] [facility] [address] [id number] [place] [address] Oct, [facility] [place] [facility] [address] [id number] [address] Oct, [facility] [place] [facility] [address] [id number] [place] [address] Oct, [facility] [place] [facility] [address] [id number] [place] [address] Sep, [facility] [place] [facility] [address] [id number] [place] [address] Sep, [facility] [place] [facility] [address] [id number] [place] [address] 10 Sep, 2012 [facility] [address] [id number] [place] [address] 02 Sep, 2012 [facility] [address] [id number] [place] [address] Aug, [facility] [address] [id number] [place] [address] Aug, [facility] [address] [id number] [place] [address] Aug, [facility] [address] [id number] [place] [address] Aug, [facility] [address] [id number] [place] [address] Jun, [facility] [address] [id number] [place] [address] 18 Jun, 2012 [facility] [address] [id number] [place] [address] 17 Jun, 2012 [facility] [address] [id number] [place] [address] Jun, [facility] [address] [id number] [place] [address] May, [facility] [address] [id number] [place] [address] 18 May, 2012 [facility] [address] [id number] [place] [address] 18 May, 2012 [facility] [address] [id number] [place] [address] 13 May, 2012 [facility] [address] [id number] [place] [address] 11 May, 2012 [facility] [address] [id number] [place] [address] 04 May, 2012 [facility] [place] [facility] [address] [id number] [place] [address] 21 Apr, 2012 [facility] [place] [facility] [address] [id number] [place] [address] 20 Apr, 2012 [facility] [address] [id number] [place] [address] 19 Apr, 2012 [facility] [place] [facility] [address] [id number] [place] [address] 19 Apr, 2012 [facility] [address] [id number] [place] [address] 19 Apr, 2012 [facility] [address] [id number] [place] [address] 20 Feb, 2012 [facility] [address] [id number] [place] [address] 20 Feb, 2012 [facility] [address] [id number] [place] [address] 19 Feb, 2012 [facility] [address] [id number] [place] [address] 19 Feb, 2012 [facility] [address] [id number] [place] [address] 19 Feb, 2012 [facility] [address] [id number] [address] 19 Feb, 2012 [facility] [place] [facility] [address] [id number] [address] 19 Feb, 2012 [facility] [place] [facility] [address] [id number] [place] [address] 19 Feb, 2012 [facility] [place] [facility] [address] [id number] [place] [address] 14 Feb, 2012 [facility] [place] [facility] [address] [id number] [place] [address] 14 Feb, 2012 [facility] [place] [facility] [address] [id number] [place] [address] 13 Feb, 2012 [facility] [address] [id number] [place] [address] 13 Feb, 2012 [facility] [place] [facility] [address] [id number] [place] [address] Feb, [facility] [address] [id number] [place] [address] Feb, [facility] [place] [facility] [address] [id number] [place] [address] Feb, [facility] [address] [id number] [place] [address] Feb, [facility] [place] [facility] [address] [id number] [place] [address] Feb, [facility] [address] [id number] [place] [address] Feb, [facility] [place] [facility] [address] [id number] [place] [address] Feb, [facility] [place] [facility] [address] [id number] [place] [address] Feb, [facility] [place] [facility] [address] [id number] [place] [address] Feb, [facility] [place] [facility] [address] [id number] [place] [address] Feb, [facility] [place] [facility] [address] [id number] [place] [address] Feb, [facility] [place] [facility] [address] [id number] [place] [address] Feb, [facility] [place] [facility] [address] [id number] [place] [address] Feb, [facility] [place] [facility] [address] [id number] [place] [address] Feb, [facility] [place] [facility] [address] [id number] [place] [address] Jan, [facility] [place] [facility] [address] [id number] [place] [address] Jan, [facility] [place] [facility] [address] [id number] [place] [address] Dec, [facility] [place] [facility] [address] [id number] [place] [address] Dec, [facility] [place] [facility] [address] [id number] [place] [address] Dec, [facility] [place] [facility] [address] [id number] [place] [address] Dec, [facility] [place] [facility] [address] [id number] [place] [address] Nov, [facility] [place] [facility] [address] [id number] [place] [address] Nov, [facility] [place] [facility] [address] [id number] [place] [address] Nov, [facility] [place] [facility] [address] [id number] [place] [address] Nov, [facility] [place] [facility] [address] [id number] [place] [address] Oct, [facility] [place] [facility] [address] [id number] [place] [address] Oct, [facility] [place] [facility] [address] [id number] [place] [address] Sep, [facility] [place] [facility] [address] [id number] [place] [address] Sep, [facility] [place] [facility] [address] [id number] [place] [address] Sep, [facility] [place] [facility] [address] [id number] [place] [address] Aug, [facility] [place] [facility] [address] [id number] [place] [address] Aug, [facility] [place] [facility] [address] [id number] [place] [address] Aug, [facility] [place] [facility] [address] [id number] [place] [address] Aug, [facility] [place] [facility] [address] [id number] [place] [address] Aug, [facility] [place] [facility] [address] [id number] [place] [address] July, [facility] [place] [facility] [address] [id number] [place] [address] July, [facility] [place] [facility] [address] [id number] [place] [address] July, [facility] [place] [facility] [address] [id number] [place] [address] July, [facility] [place] [facility] [address] [id number] [place] [address] July, [facility] [place] [facility] [address] [id number] [place] [address] Jun, [facility] [place] [facility] [address] [id number] [place] [address] May, [facility] [place] [facility] [address] [id number] [place] [address] 16 Apr, 2011 [facility] [place] [facility] [address] [id number] [place] [address] Apr, [facility] [place] [facility] [address] [id number] [place] [address] Apr, [facility] [place] [facility] [address] [id number] [place] [address] Mar, [facility] [place] [facility] [address] [id number] [place] [address] 31 Mar, 2011 [facility] [address] [id number] [place] [address] Mar, [facility] [place] [facility] [address] [id number] [place] [address] Mar, [facility] [address] [id number] [place] [address] Mar, [facility] [place] [facility] [address] [id number] [place] [address] 17 Mar, 2011 [facility] [address] [id number] [place] [address] Mar, [facility] [address] [id number] [place] [address] Mar, [facility] [address] [id number] [place] [address] Feb, [facility] [address] [id number] [place] [address] Feb, [facility] [address] [id number] [place] [address] Feb, [facility] [address] [id number] [place] [address] Feb, [facility] [place] [facility] [address] [id number] [place] [address] Feb, [facility] [place] [facility] [address] [id number] [place] [address] Jan, [facility] [place] [facility] [address] [id number] [place] [address] Jan, [facility] [place] [facility] [address] [id number] [place] [address] Jan, [facility] [place] [facility] [address] [id number] [place] [address] Jan, [facility] [address] [id number] [place] [address] 14 Dec, 2010 [facility] [place] [facility] [address] [id number] [place] [address] 14 Dec, 2010 [facility] [place] [facility] [address] [id number] [place] [address] 13 Sep, 2010 [facility] [place] [facility] [address] [id number] [place] [address] July, [facility] [place] [facility] [address] [id number] [place] [address] Apr, [facility] [place] [facility] [address] [id number] [place] [address] Mar, [facility] [place] [facility] [address] [id number] [place] [address] Feb, [facility] [place] [facility] [address] [id number] [place] [address] Feb, [facility] [place] [facility] [address] [id number] [place] [address] Feb, [facility] [place] [facility] [address] [id number] [place] [address] Feb, [facility] [place] [facility] [address] [id number] [place] [address] 15 Feb, 2010 [facility] [place] [facility] [address] [id number] [address] Feb, [facility] [place] [facility] [address] [id number] [place] [address] Feb, [facility] [place] [facility] [address] [id number] [place] [address] Dec, [facility] [place] [facility] [address] [id number] [place] [address] Jan, [facility] [place] [facility] [address] [facility] [id number] [place] [address] 14 Apr, 2008 IMMUNIZATIONS No Known Immunizations SOCIAL HISTORY Never Assessed REASON FOR VISIT Requests return call PLAN OF CARE VITAL SIGNS MEDICATIONS Medication Instructions Dosage Frequency Start Date End Date Duration Status Insulin Syringe 31G X 5/16" 1 ML as directed May, 30 days Active RESULTS No Results PROCEDURES [...] Hyperglycemia 2012 Hospitalization History [facility] 11/28/2015-12/04/2015 2016 Hospitalization History Schizophrenia 09/26/16 Hospitalization History AMS, UTI, hyponatremia-[facility] 10/21/16 Hospitalization History stent placed 02/02/17 Hospitalization History stent placed 02/2017 Hospitalization History [facility] operated [facility]- Syncope, Dehydration and Hypotension. 06/08/2017
--- OUTSIDE RECORDS SUMMARY | 2018-09-05 12:56 | XMS REPORT ---
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.10 Active 6648458978293 Problem Diabetes E11.9 Active 77249818 Problem CVA (cerebral vascular accident) I63.9 Active 104364185 Problem Bipolar affective disorder, current episode mixed, current episode severity unspecified F31.60 Active 949682401 Problem Psychosis, unspecified psychosis type F29 Active [id number] ALLERGIES No Information ENCOUNTERS Encounter Location Date Diagnosis [facility] [address] [address] Sep, [facility] [address] [address] Sep, [facility] [address] [address] Aug, Upper respiratory tract infection, unspecified type J06.9 ; Chronic idiopathic constipation K59.04 ; Fluid level behind tympanic membrane of both ears H65.93 and Abdominal pain R10.9 [facility] [address] [address] July, Diabetes E11.9 [facility] [address] [address] Jun, Dehydration E86.0 ; Diabetes E11.9 and Hyperglycemia R73.9 [facility] [address] [place] [address] Jun, [facility] [id number] [place] [address] Jun, Vertigo R42 ; Syncope, unspecified syncope type R55 ; Diabetes E11.9 and Hyperglycemia R73.9 [facility] [id number] [place] [address] May, Psychosis, unspecified psychosis type F29 and Bipolar affective disorder, current episode mixed, current episode severity unspecified F31.60 [facility] [id number] [place] [address] May, [facility] [id number] [place] [address] May, Diabetes E11.9 [facility] [id number] [place] [id number] Apr, Dental examination Z01.20 and Dental caries K02.9 [facility] [id number] [place] [address] Apr, Dental examination Z01.20 and Dental abscess K04.7 [facility] [id number] [place] [address] Mar, Psychosis, unspecified psychosis type F29 and Bipolar affective disorder, current episode mixed, current episode severity unspecified F31.60 [facility] [id number] [place] [address] Mar, [facility] [id number] [place] [address] Feb, [facility] [id number] [place] [address] Feb, Left wrist pain M25.532 [facility] [id number] [place] [address] Jan, [facility] [id number] [place] [address] Jan, Psychosis, unspecified psychosis type F29 and Bipolar affective disorder, current episode mixed, current episode severity unspecified F31.60 [facility] [id number] [place] [address] Jan, Diabetes E11.9 [facility] [id number] [place] [address] Jan, Left wrist pain M25.532 [facility] [id number] [place] [address] Dec, Psychosis, unspecified psychosis type F29 and Bipolar affective disorder, current episode mixed, current episode severity unspecified F31.60 [facility] [id number] [place] [address] Dec, Syncope, unspecified syncope type R55 ; Vertigo R42 ; Diabetes E11.9 ; Psychosis, unspecified psychosis type F29 and Fall, initial encounter W19.XXXA [facility] [id number] [place] [address] Dec, Diabetes E11.9 ; Neck pain M54.2 and Vertigo R42 [facility] [id number] [place] [address] Nov, [facility] [id number] [place] [address] Nov, [facility] [id number] [place] [address] Nov, [facility] [id number] [place] [address] Nov, Diabetes E11.9 [facility] [id number] [place] [address] Nov, Diabetes E11.9 [facility] [id number] [place] [address] Oct, [facility] [id number] [id number] Oct, [facility] [address] [facility] [id number], [place] [address] Oct, [facility] [address] [facility] [id number], [place] [address] Oct, Bipolar affective disorder, current episode mixed, current episode severity unspecified F31.60 [facility] [address] [id number] [id number] Sep, [facility] [address] [facility] [id number], [place] [address] Sep, Bipolar affective disorder, current episode mixed, current episode severity unspecified F31.60 [facility] [address] [id number] [address] Sep, Acute maxillary sinusitis, recurrence not specified J01.00 [facility] [address], [place] [address] Sep, Diabetes E11.9 [facility] [address], [place] [address] July, Diabetes E11.9 [facility] [address] [address] July, Diabetes E11.9 [facility] [address] [id number], [place] [address] Jun, [facility] [address] [id number] [address] May, Bipolar affective disorder, current episode mixed, current episode severity unspecified F31.60 [facility] [address] [id number] [address] May, Acute non-recurrent maxillary sinusitis J01.00 [facility] [address] [id number] [address] 10 Apr, 2016 Psychosis, unspecified psychosis type F29 and Bipolar affective disorder, current episode mixed, current episode severity unspecified F31.60 [facility] [id number] [place] [address] Apr, Dysuria R30.0 ; Other viral agents as the cause of diseases classified elsewhere B97.89 and Acute upper respiratory infection, unspecified J06.9 [facility] [id number] [place] [address] Mar, Diabetes E11.9 ; Urine leukocytes R82.99 and Psychosis, unspecified psychosis type F29 [facility] [id number] [place] [address] Mar, Diabetes E11.9 [facility] [id number] [place] [address] Feb, [facility] [id number] [place] [address] Jan, [facility] [id number] [place] [address] Dec, Psychosis, unspecified psychosis type F29 [facility] [id number] [place] [address] Dec, [facility] [id number] [place] [address] Dec, [facility] [id number] [place] [address] Dec, Psychosis, unspecified psychosis type F29 [facility] [id number] [place] [address] Nov, Schizoaffective disorder, unspecified type F25.9 [facility] [id number] [place] [address] Oct, [facility] [id number] [place] [address] Oct, Conjunctivitis of right eye, unspecified conjunctivitis type H10.9 [facility] [address], [place] [address] Aug, [facility] [address] [id number] Jun, Encounter for dental examination Z01.20 [facility] [id number] [place] [address] Jun, Diabetes E11.9 and Bipolar affect, depressed F31.30 [facility] [id number] [place] [address] Jun, Other bipolar disorder F31.89 [facility] [id number] [place] [address] Jun, [facility] [id number] [place] [address] Apr, [facility] [id number] [place] [address] Dec, [facility] [id number] [place] [address] Dec, [facility] [id number] [place] [address] Sep, [facility] [address], [place] [address] Jun, [facility] [id number] [place] [address] Jun, [facility] [id number] [place] [address] Mar, [facility] [id number] [place] [address] Mar, [facility] [address], [place] [address] Nov, [facility] [id number] [place] [address] Nov, [facility] [place] [facility] [address] [id number] [place] [address] Sep, [facility] [place] [facility] [address] [id number] [place] [address] Sep, [facility] [place] [facility] [address] [id number] [place] [address] Sep, [facility] [place] [facility] [address] [id number] [place] [address] Sep, [facility] [place] [facility] [address] [id number] [place] [address] Sep, [facility] [place] [facility] [address] [id number] [place] [address] Aug, [facility] [place] [facility] [address] [id number] [place] [address] Aug, [facility] [place] [facility] [address] [id number] [place] [address] Aug, [facility] [place] [facility] [address] [id number] [place] [address] Aug, [facility] [place] [facility] [address] [facility] [id number] [place] [address] Aug, [facility] [place] [facility] [address] [id number] [place] [address] Aug, [facility] [place] [facility] [address] [id number], [place] [address] July, [facility] [place] [facility] [address] [id number] [place] [address] July, [facility] [place] [facility] [address] [id number] [place] [address] Jun, [facility] [place] [facility] [address] [id number] [place] [address] Jun, [facility] [place] [facility] [address] [id number] [place] [address] Jun, [facility] [place] [facility] [address] [id number] [place] [address] Jun, [facility] [place] [facility] [address] [id number] [place] [address] Jun, [facility] [place] [facility] [address] [id number] [place] [address] Jun, [facility] [place] [facility] [address] [id number] [place] [address] Jun, [facility] [place] [facility] [address] [id number] [place] [address] Jun, [facility] [place] [facility] [address] [id number] [place] [address] May, [facility] [place] [facility] [address] [id number] [place] [address] May, [facility] [place] [facility] [address] [id number] [place] [address] May, [facility] [place] [facility] [address] [id number] [place] [address] May, [facility] [place] [facility] [address] [id number] [place] [address] May, [facility] [place] [facility] [address] [id number] [place] [address] May, [facility] [place] [facility] [address] [id number] [place] [address] May, [facility] [place] [facility] [address] [id number] [place] [address] May, [facility] [place] [facility] [address] [id number] [place] [address] May, [facility] [place] [facility] [address] [id number] [place] [address] Apr, [facility] [place] [facility] [address] [id number] [place] [address] Apr, [facility] [place] [facility] [address] [id number] [place] [address] Mar, [facility] [place] [facility] [address] [id number] [place] [address] Mar, [facility] [place] [facility] [address] [id number] [place] [address] Feb, [facility] [place] [facility] [address] [id number] [place] [address] Feb, [facility] [place] [facility] [address] [id number] [place] [address] Nov, [facility] [place] [facility] [address] [id number] [place] [address] Nov, [facility] [place] [facility] [address] [id number] [place] [address] Oct, [facility] [place] [facility] [address] [id number] [place] [address] Oct, [facility] [place] [facility] [address] [id number] [place] [address] Oct, [facility] [place] [facility] [address] [id number] [place] [address] Oct, [facility] [place] [facility] [address] [id number] [place] [address] Oct, [facility] [place] [facility] [address] [id number] [place] [address] Sep, [facility] [place] [facility] [address] [id number] [place] [address] Sep, [facility] [place] [facility] [address] [id number] [place] [address] Sep, [facility] [place] [facility] [address] [id number] [place] [address] 02 Sep, 2012 [facility] [address] [id number] [place] [address] Aug, [facility] [address] [id number] [place] [address] 17 Aug, 2012 [facility] [address] [id number] [place] [address] 10 Aug, 2012 [facility] [address] [id number] [place] [address] 07 Aug, 2012 [facility] [address] [id number] [place] [address] 19 Jun, 2012 [facility] [address] [id number] [place] [address] 18 Jun, 2012 [facility] [address] [id number] [place] [address] Jun, [facility] [address] [id number] [place] [address] Jun, [facility] [address] [id number] [place] [address] May, [facility] [address] [id number] [place] [address] 18 May, 2012 [facility] [address] [id number] [place] [address] 18 May, 2012 [facility] [address] [id number] [place] [address] 13 May, 2012 [facility] [address] [id number] [place] [address] 11 May, 2012 [facility] [address] [id number] [place] [address] 04 May, 2012 [facility] [address] [id number] [place] [address] Apr, [facility] [address] [id number] [place] [address] 20 Apr, 2012 [facility] [place] [facility] [address] [id number] [place] [address] 19 Apr, 2012 [facility] [address] [id number] [place] [address] 19 Apr, 2012 [facility] [address] [id number] [place] [address] 19 Apr, 2012 [facility] [address] [id number] [place] [address] 20 Feb, 2012 [facility] [address] [id number] [place] [address] 20 Feb, 2012 [facility] [address] [id number] [place] [address] 19 Feb, 2012 [facility] [address] [id number] [place] [address] 19 Feb, 2012 [facility] [address] [id number] [place] [address] 19 Feb, 2012 [facility] [address] [id number] [place] [address] 19 Feb, 2012 [facility] [address] [id number], [place] [address] 19 Feb, 2012 [facility] [place] [facility] [address] [id number], [place] [address] 19 Feb, 2012 [facility] [place] [facility] [address] [id number] [place] [address] 14 Feb, 2012 [facility] [place] [facility] [address] [id number] [place] [address] 14 Feb, 2012 [facility] [place] [facility] [address] [id number] [place] [address] 13 Feb, 2012 [facility] [place] [facility] [address] [id number] [place] [address] Feb, [facility] [address] [id number] [place] [address] Feb, [facility] [place] [facility] [address] [id number] [place] [address] Feb, [facility] [place] [facility] [address] [id number] [place] [address] Feb, [facility] [place] [facility] [address] [id number] [place] [address] Feb, [facility] [place] [facility] [address] [id number] [place] [address] Feb, [facility] [place] [facility] [address] [id number] [place] [address] Feb, [facility] [address] [id number] [place] [address] Feb, [facility] [place] [facility] [address] [id number] [place] [address] Feb, [facility] [place] [facility] [address] [id number] [place] [address] Feb, [facility] [place] [facility] [address] [id number] [place] [address] Feb, [facility] [place] [facility] [address] [id number] [place] [address] Feb, [facility] [place] [facility] [address] [id number] [place] [address] Feb, [facility] [place] [facility] [address] [id number] [place] [address] Feb, [facility] [place] [facility] [address] [id number] [place] [address] Feb, [facility] [place] [facility] [address] [id number] [place] [address] Jan, [facility] [place] [facility] [address] [id number] [place] [address] Jan, [facility] [place] [facility] [address] [id number] [place] [address] Dec, [facility] [place] [facility] [address] [id number] [place] [address] Dec, [facility] [place] [facility] [address] [id number] [place] [address] Dec, [facility] [place] [facility] [address] [id number] [place] [address] Dec, [facility] [place] [facility] [address] [id number] [place] [address] Nov, [facility] [place] [facility] [address] [id number] [place] [address] Nov, [facility] [place] [facility] [address] [id number] [place] [address] Nov, [facility] [place] [facility] [address] [id number] [place] [address] Nov, [facility] [place] [facility] [address] [id number] [place] [address] Oct, [facility] [place] [facility] [address] [id number] [place] [address] Oct, [facility] [place] [facility] [address] [id number] [place] [address] Sep, [facility] [place] [facility] [address] [id number] [place] [address] Sep, [facility] [place] [facility] [address] [id number] [place] [address] Sep, [facility] [place] [facility] [address] [id number] [place] [address] Aug, [facility] [place] [facility] [address] [id number] [place] [address] 26 Aug, 2011 [facility] [address] [id number] [place] [address] 14 Aug, 2011 [facility] [place] [facility] [address] [id number] [place] [address] Aug, [facility] [place] [facility] [address] [id number] [place] [address] Aug, [facility] [place] [facility] [address] [id number] [place] [address] July, [facility] [place] [facility] [address] [id number] [place] [address] July, [facility] [place] [facility] [address] [id number] [place] [address] July, [facility] [place] [facility] [address] [id number] [place] [address] July, [facility] [place] [facility] [address] [id number] [place] [address] July, [facility] [place] [facility] [address] [id number] [place] [address] Jun, [facility] [place] [facility] [address] [id number] [place] [address] May, [facility] [place] [facility] [address] [id number] [place] [address] 16 Apr, 2011 [facility] [place] [facility] [address] [id number] [place] [address] Apr, [facility] [place] [facility] [address] [id number] [place] [address] Apr, [facility] [place] [facility] [address] [id number] [place] [address] Mar, [facility] [place] [facility] [address] [id number] [place] [address] Mar, [facility] [place] [facility] [address] [id number] [place] [address] Mar, [facility] [address] [id number] [place] [address] Mar, [facility] [place] [facility] [address] [id number] [place] [address] Mar, [facility] [address] [id number] [place] [address] Mar, [facility] [place] [facility] [address] [id number] [place] [address] Mar, [facility] [address] [id number] [place] [address] Mar, [facility] [address] [id number] [place] [address] Feb, [facility] [address] [id number] [place] [address] Feb, [facility] [address] [id number] [place] [address] Feb, [facility] [address] [id number] [place] [address] Feb, [facility] [address] [id number] [place] [address] Feb, [facility] [place] [facility] [address] [id number] [place] [address] Jan, [facility] [place] [facility] [address] [id number] [place] [address] Jan, [facility] [place] [facility] [address] [id number] [place] [address] Jan, [facility] [place] [facility] [address] [id number] [place] [address] Jan, [facility] [place] [facility] [address] [id number] [place] [address] Dec, [facility] [address] [facility] [id number], [place] [address] 14 Dec, 2010 [facility] [address] [facility] [id number], [place] [address] 13 Sep, 2010 [facility] [address] [facility] [id number], [place] [address] July, [facility] [address] [facility] [id number], [place] [address] 11 Apr, 2010 [facility] [address] [facility] [id number] [place] [address] 20 Mar, 2010 [facility] [address] [facility] [id number], [place] [address] Feb, [facility] [address] [facility] [id number] [address] Feb, [facility] [address] [id number], [place] [address] Feb, [facility] [address] [facility] [id number], [place] [address] Feb, [facility] [address] [facility] [id number], [place] [address] Feb, [facility] [address] [facility] [id number], [place] [address] Feb, [facility] [address] [facility] [id number], [place] [address] Feb, [facility] [address] [facility] [id number], [place] [address] Dec, [facility] [address] [facility] [id number], [place] [address] Jan, [facility] [address] [facility] [id number], [place] [address] 14 Apr, 2008 IMMUNIZATIONS No Known Immunizations SOCIAL HISTORY Never Assessed REASON FOR VISIT [place] PLAN OF CARE VITAL SIGNS MEDICATIONS Medication Instructions Dosage Frequency Start Date End Date Duration Status BD Pen Needle Ultrafine 29G X 12.7MM [...] Surgery Hospitalization History Hyperglycemia 2012 Hospitalization History [facility] 11/28/2015-12/04/2015 2016 Hospitalization History Schizophrenia 09/26/16 Hospitalization History AMS, UTI, hyponatremia-[facility] 10/21/16 Hospitalization History stent placed 02/02/17 Hospitalization History stent placed 02/2017 Hospitalization History [facility]- Syncope, Dehydration and Hypotension. 06/08/2017
--- OUTSIDE RECORDS SUMMARY | 2018-09-05 12:57 | XMS REPORT ---
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.10 Active 6300305032828 Problem Bipolar affective disorder, current episode mixed, current episode severity unspecified F31.60 Active 860262853 Problem CVA (cerebral vascular accident) I63.9 Active 271936804 Problem Pacemaker Z95.0 Active 328263511 Problem Psychosis, unspecified psychosis type F29 Active 96049379 Problem Diabetes E11.9 Active 87972473 ALLERGIES No Information ENCOUNTERS Encounter Location Date Diagnosis [place] [address] [address] Sep, [place] [address] [address] July, Diabetes E11.9 [place] [address] [address] Jun, Dehydration E86.0 ; Diabetes E11.9 and Hyperglycemia R73.9 [facility] [address] [address] Jun, [place] [address] [address] Jun, Vertigo R42 ; Syncope, unspecified syncope type R55 ; Diabetes E11.9 and Hyperglycemia R73.9 [place] [address] [address] May, Psychosis, unspecified psychosis type F29 and Bipolar affective disorder, current episode mixed, current episode severity unspecified F31.60 [facility] [address] [address] May, [facility] [address] [place] [id number] [place] [address] May, Diabetes E11.9 [facility] [address] [id number] Apr, Dental examination Z01.20 and Dental caries K02.9 [facility] [address] [place] [address] Apr, Dental examination Z01.20 and Dental abscess K04.7 [place] [address] [place] [id number] [place] [address] Mar, Psychosis, unspecified psychosis type F29 and Bipolar affective disorder, current episode mixed, current episode severity unspecified F31.60 [place] [address] [place] [id number] [place] [address] Mar, [facility] [address] [place] [id number] [place] [address] Feb, [place] [address] [place] [id number] [place] [address] Feb, Left wrist pain M25.532 [place] [id number] [place] [address] Jan, [facility] [address] [place] [id number] [place] [address] Jan, Psychosis, unspecified psychosis type F29 and Bipolar affective disorder, current episode mixed, current episode severity unspecified F31.60 [facility] [address] [place] [address] Jan, Diabetes E11.9 [facility] [address] [address] Jan, Left wrist pain M25.532 [place] [address] [place] [id number] [place] [address] Dec, Psychosis, unspecified psychosis type F29 and Bipolar affective disorder, current episode mixed, current episode severity unspecified F31.60 [facility] [address] [place] [id number] [place] [address] Dec, Syncope, unspecified syncope type R55 ; Vertigo R42 ; Diabetes E11.9 ; Psychosis, unspecified psychosis type F29 and Fall, initial encounter W19.XXXA [facility] [address] [place] [id number] [place] [address] Dec, Diabetes E11.9 ; Neck pain M54.2 and Vertigo R42 [facility] [address] [place] [id number] [place] [address] Nov, [facility] [address] [place] [id number] [place] [address] Nov, [facility] [address] [place] [id number] [place] [address] Nov, [facility] [address] [place] [id number] [place] [address] Nov, Diabetes E11.9 [facility] [address] [place] [id number] [place] [address] Nov, Diabetes E11.9 [facility] [address] [place] [id number] [place] [address] Oct, [facility] [address] [place] [id number] [place] [id number] Oct, [facility] [address] [place] [id number] [place] [address] Oct, [facility] [address] [place] [id number] [place] [address] Oct, Bipolar affective disorder, current episode mixed, current episode severity unspecified F31.60 [facility] [address] [place] [id number] [place] [id number] Sep, [facility] [address], [place] [address] Sep, Acute maxillary sinusitis, recurrence not specified J01.00 [facility] [address], [place] [address] Sep, Bipolar affective disorder, current episode mixed, current episode severity unspecified F31.60 [facility] [address] [address] Sep, Diabetes E11.9 [place] [address] [place] [id number] [place] [address] July, Diabetes E11.9 [place] [address] [place] [id number] [place] [address] July, Diabetes E11.9 [place] [address] [place] [id number] [place] [address] Jun, [place] [address] [place] [address] May, Bipolar affective disorder, current episode mixed, current episode severity unspecified F31.60 [facility] [address], [place] [address] May, Acute non-recurrent maxillary sinusitis J01.00 [facility] [address] [address] 10 Apr, 2016 Psychosis, unspecified psychosis type F29 and Bipolar affective disorder, current episode mixed, current episode severity unspecified F31.60 [facility] [address] [address] 03 Apr, 2016 Dysuria R30.0 ; Other viral agents as the cause of diseases classified elsewhere B97.89 and Acute upper respiratory infection, unspecified J06.9 [facility] [address] [address] Mar, Diabetes E11.9 ; Urine leukocytes R82.99 and Psychosis, unspecified psychosis type F29 [facility] [address] [place] [id number] [place] [address] Mar, Diabetes E11.9 [facility] [address] [place] [id number] [place] [address] Feb, [facility] [address] [address] Jan, [facility] [address] [place] [id number] [place] [address] Dec, Psychosis, unspecified psychosis type F29 [facility] [address] [place] [id number] [place] [address] Dec, [facility] [address] [place] [id number] [place] [address] Dec, [facility] [address] [place] [id number] [place] [address] Dec, Psychosis, unspecified psychosis type F29 [facility] [address] [place] [id number] [place] [address] Nov, Schizoaffective disorder, unspecified type F25.9 [facility] [address] [place] [id number] [place] [address] Oct, [facility] [address] [place] [id number] [place] [address] Oct, Conjunctivitis of right eye, unspecified conjunctivitis type H10.9 [facility] [address] [place] [id number] [place] [address] Aug, [facility] [address] [place] [id number] [place] [id number] Jun, Encounter for dental examination Z01.20 [facility] [address] [place] [id number] [place] [address] Jun, Diabetes E11.9 and Bipolar affect, depressed F31.30 [facility] [address] [id number] [place] [address] Jun, Other bipolar disorder F31.89 [facility] [address] [id number] [place] [address] Jun, [facility] [address] [facility] [id number] [place] [address] Apr, [facility] [address] [id number] [place] [address] Dec, [facility] [address] [id number] [place] [address] Dec, [facility] [address] [facility] [id number] [place] [address] Sep, [facility] [address] [facility] [id number] [place] [address] Jun, [facility] [address] [id number] [place] [address] Jun, [facility] [address] [facility] [id number] [place] [address] Mar, [facility] [address] [facility] [id number] [place] [address] Mar, [facility] [address] [id number] [place] [address] Nov, [facility] [address] [id number] [place] [address] Nov, [facility] [address] [id number] [place] [address] Sep, [facility] [address] [facility] [id number] [place] [address] Sep, [facility] [address] [facility] [id number] [place] [address] Sep, [facility] [place] [facility] [address] [id number] [place] [address] Sep, [facility] [place] [facility] [address] [id number] [place] [address] Sep, [facility] [place] [facility] [address] [id number] [place] [address] Aug, [facility] [place] [facility] [address] [id number] [place] [address] Aug, [facility] [place] [facility] [address] [id number] [place] [address] Aug, [facility] [place] [facility] [address] [id number] [place] [address] Aug, [facility] [place] [facility] [address] [id number] [place] [address] Aug, [facility] [place] [facility] [address] [id number] [place] [address] Aug, [facility] [address] [id number] [place] [address] July, [facility] [place] [facility] [address] [id number] [place] [address] July, [facility] [place] [facility] [address] [id number] [place] [address] Jun, [facility] [place] [facility] [address] [id number] [place] [address] Jun, [facility] [place] [facility] [address] [id number] [place] [address] Jun, [facility] [place] [facility] [address] [id number] [place] [address] Jun, [facility] [place] [facility] [address] [id number] [place] [address] Jun, [facility] [place] [facility] [address] [id number] [place] [address] Jun, [facility] [place] [facility] [address] [id number] [place] [address] Jun, [facility] [place] [facility] [address] [id number] [place] [address] Jun, [facility] [place] [facility] [address] [id number] [place] [address] May, [facility] [place] [facility] [address] [id number] [place] [address] May, [facility] [place] [facility] [address] [id number] [place] [address] May, [facility] [place] [facility] [address] [id number] [place] [address] May, [facility] [place] [facility] [address] [id number] [place] [address] May, [facility] [place] [facility] [address] [id number] [place] [address] May, [facility] [place] [facility] [address] [id number] [place] [address] May, [facility] [place] [facility] [address] [id number] [place] [address] May, [facility] [place] [facility] [address] [id number] [place] [address] May, [facility] [place] [facility] [address] [id number] [place] [address] Apr, [facility] [place] [facility] [address] [id number] [place] [address] Apr, [facility] [place] [facility] [address] [id number] [place] [address] Mar, [facility] [place] [facility] [address] [id number] [place] [address] Mar, [facility] [place] [facility] [address] [id number] [place] [address] Feb, [facility] [address] [id number] [place] [address] Feb, [facility] [place] [facility] [address] [id number] [place] [address] Nov, [facility] [place] [facility] [address] [id number] [place] [address] Nov, [facility] [place] [facility] [address] [id number] [place] [address] Oct, [facility] [place] [facility] [address] [id number] [place] [address] Oct, [facility] [place] [facility] [address] [id number] [place] [address] Oct, [facility] [address] [id number] [place] [address] Oct, [facility] [place] [facility] [address] [id number] [place] [address] Oct, [facility] [place] [facility] [address] [id number] [place] [address] Sep, [facility] [place] [facility] [address] [id number] [place] [address] Sep, [facility] [place] [facility] [address] [id number] [place] [address] Sep, [facility] [place] [facility] [address] [id number] [place] [address] Sep, [facility] [place] [facility] [address] [id number] [place] [address] Aug, [facility] [place] [facility] [address] [id number] [place] [address] Aug, [facility] [place] [facility] [address] [id number] [place] [address] Aug, [facility] [place] [facility] [address] [id number] [place] [address] 07 Aug, 2012 [facility] [address] [id number] [place] [address] 19 Jun, 2012 [facility] [place] [facility] [address] [id number] [place] [address] 18 Jun, 2012 [facility] [place] [facility] [address] [id number] [place] [address] 17 Jun, 2012 [facility] [address] [id number] [place] [address] 17 Jun, 2012 [facility] [place] [facility] [address] [id number] [place] [address] May, [facility] [address] [id number] [place] [address] 18 May, 2012 [facility] [address] [id number] [place] [address] 18 May, 2012 [facility] [address] [id number] [place] [address] 13 May, 2012 [facility] [place] [facility] [address] [id number] [place] [address] May, [facility] [place] [facility] [address] [id number] [place] [address] 04 May, 2012 [facility] [place] [facility] [address] [id number] [place] [address] Apr, [facility] [place] [facility] [address] [id number] [place] [address] Apr, [facility] [place] [facility] [address] [id number] [place] [address] Apr, [facility] [place] [facility] [address] [id number] [place] [address] Apr, [facility] [place] [facility] [address] [id number] [address] 19 Apr, 2012 [facility] [address] [id number] [place] [address] 20 Feb, 2012 [facility] [address] [id number] [place] [address] 20 Feb, 2012 [facility] [address] [id number] [place] [address] 19 Feb, 2012 [facility] [address] [id number] [place] [address] 19 Feb, 2012 [facility] [address] [id number] [place] [address] 19 Feb, 2012 [facility] [address] [id number] [place] [address] 19 Feb, 2012 [facility] [address] [id number] [place] [address] 19 Feb, 2012 [facility] [address] [id number] [place] [address] 19 Feb, 2012 [facility] [address] [id number] [place] [address] 14 Feb, 2012 [facility] [address] [id number] [place] [address] 14 Feb, 2012 [facility] [address] [id number] [place] [address] 13 Feb, 2012 [facility] [place] [facility] [address] [id number] [address] 13 Feb, 2012 [facility] [place] [facility] [address] [id number] [place] [address] 12 Feb, 2012 [facility] [place] [facility] [address] [id number] [place] [address] 12 Feb, 2012 [facility] [place] [facility] [address] [id number] [place] [address] 12 Feb, 2012 [facility] [place] [facility] [address] [id number] [place] [address] Feb, [facility] [place] [facility] [address] [id number] [place] [address] Feb, [facility] [place] [facility] [address] [id number] [place] [address] Feb, [facility] [place] [facility] [address] [id number] [place] [address] Feb, [facility] [place] [facility] [address] [id number] [place] [address] Feb, [facility] [place] [facility] [address] [id number] [place] [address] Feb, [facility] [place] [facility] [address] [id number] [place] [address] Feb, [facility] [place] [facility] [address] [id number] [place] [address] Feb, [facility] [place] [facility] [address] [id number] [place] [address] Feb, [facility] [place] [facility] [address] [id number] [place] [address] Feb, [facility] [place] [facility] [address] [id number] [place] [address] Feb, [facility] [place] [facility] [address] [id number] [place] [address] Jan, [facility] [place] [facility] [address] [id number] [place] [address] Jan, [facility] [place] [facility] [address] [id number] [place] [address] Dec, [facility] [place] [facility] [address] [id number] [place] [address] Dec, [facility] [place] [facility] [address] [id number] [place] [address] Dec, [facility] [place] [facility] [address] [id number] [place] [address] 17 Dec, 2011 [facility] [place] [facility] [address] [id number] [place] [address] 26 Nov, 2011 [facility] [place] [facility] [address] [id number] [place] [address] 12 Nov, 2011 [facility] [place] [facility] [address] [id number] [place] [address] 06 Nov, 2011 [facility] [place] [facility] [address] [id number] [place] [address] 04 Nov, 2011 [facility] [place] [facility] [address] [id number] [place] [address] Oct, [facility] [place] [facility] [address] [id number] [place] [address] Oct, [facility] [place] [facility] [address] [id number] [place] [address] Sep, [facility] [place] [facility] [address] [id number] [place] [address] Sep, [facility] [place] [facility] [address] [id number] [place] [address] Sep, [facility] [place] [facility] [address] [id number] [address] Aug, [facility] [place] [facility] [address] [id number] [address] 26 Aug, 2011 [facility] [place] [facility] [address] [id number] [place] [address] 14 Aug, 2011 [facility] [place] [facility] [address] [id number] [place] [address] 13 Aug, 2011 [facility] [place] [facility] [address] [id number] [place] [address] 13 Aug, 2011 [facility] [place] [facility] [address] [id number] [place] [address] July, [facility] [address] [id number] [place] [address] July, [facility] [address] [id number] [place] [address] July, [facility] [address] [id number] [place] [address] July, [facility] [address] [id number] [place] [address] July, [facility] [address] [id number] [place] [address] Jun, [facility] [address] [id number] [place] [address] May, [facility] [address] [id number] [place] [address] 16 Apr, 2011 [facility] [address] [id number] [place] [address] Apr, [facility] [address] [id number] [place] [address] Apr, [facility] [address] [id number] [place] [address] Mar, [facility] [address] [id number] [place] [address] Mar, [facility] [address] [id number] [place] [address] Mar, [facility] [place] [facility] [address] [id number] [place] [address] Mar, [facility] [place] [facility] [address] [id number] [place] [address] Mar, [facility] [place] [facility] [address] [id number] [place] [address] Mar, [facility] [address] [id number] [place] [address] 16 Mar, 2011 [facility] [place] [facility] [address] [id number] [place] [address] Mar, [facility] [place] [facility] [address] [id number] [place] [address] Feb, [facility] [place] [facility] [address] [id number] [place] [address] Feb, [facility] [place] [facility] [address] [id number] [place] [address] Feb, [facility] [place] [facility] [address] [id number] [place] [address] Feb, [facility] [place] [facility] [address] [id number] [place] [address] Feb, [facility] [place] [facility] [address] [id number] [place] [address] Jan, [facility] [place] [facility] [address] [id number] [place] [address] Jan, [facility] [place] [facility] [address] [id number], [place] [address] Jan, [facility] [place] [facility] [address] [id number], [place] [address] Jan, [facility] [place] [facility] [address] [id number], [place] [address] Dec, [facility] [place] [facility] [address] [id number] [place] [address] Dec, [facility] [place] [facility] [address] [id number], [place] [address] Sep, [facility] [place] [facility] [address] [id number], [place] [address] July, [facility] [place] [facility] [address] [id number], [place] [address] Apr, [facility] [id number] [address] Mar, [facility] [id number] [address] Feb, [facility] [id number] [address] Feb, [facility] [id number] [address] Feb, [facility] [id number] [place] [address] Feb, [facility] [id number] [place] [address] Feb, [facility] [id number] [place] [address] Feb, [facility] [address] [id number] [address] Feb, [facility] [id number] [address] Dec, [facility] [id number] [address] Jan, [facility] [id number] [address] Apr, IMMUNIZATIONS No Known Immunizations SOCIAL HISTORY Never Assessed REASON FOR VISIT med refill PLAN OF CARE VITAL SIGNS MEDICATIONS Medication Instructions Dosage Frequency Start Date End Date Duration Status Insulin Syringe-Needle U-40 1 subcutaneously 5 times per day as directed Mar, 30 days Active RESULTS No Results PROCEDURES [...] Hospitalization History Hyperglycemia 2012 Hospitalization History [facility] 11/28/2015-12/04/20152015 Hospitalization History Schizophrenia 09/26/16 Hospitalization History [facility], UTI, hyponatremia-[facility] 10/21/16 Hospitalization History stent placed 02/02/17 Hospitalization History stent placed 02/2017 Hospitalization History [facility]- Syncope, Dehydration and Hypotension. 06/08/2017
--- OUTSIDE RECORDS SUMMARY | 2018-09-05 12:57 | XMS REPORT ---
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.10 Active 3117298917294 Problem Diabetes E11.9 Active 08076789 Problem CVA (cerebral vascular accident) I63.9 Active 452723684 Problem Bipolar affective disorder, current episode mixed, current episode severity unspecified F31.60 Active 433950685 Problem Psychosis, unspecified psychosis type F29 Active 98329453 ALLERGIES Substance Reaction Event Type Date Status Codeine Sulfate Unknown Drug Allergy Apr, Active Waldorf Unknown Non Drug Allergy Apr, Active Tejeda Unknown Non Drug Allergy Apr, Active Pork Unknown Non Drug Allergy Apr, Active Yeast Unknown Non Drug Allergy Apr, Active Interlachen Unknown Non Drug Allergy Apr, Active ENCOUNTERS Encounter Location Date Diagnosis [facility] [address] [id number] [address] Sep, [facility] [id number] [place] [address] Sep, [facility] [id number] [place] [address] Aug, Upper respiratory tract infection, unspecified type J06.9 ; Chronic idiopathic constipation K59.04 ; Fluid level behind tympanic membrane of both ears H65.93 and Abdominal pain R10.9 [facility] [id number] [place] [address] July, Diabetes E11.9 [facility] [id number] [place] [address] Jun, Dehydration E86.0 ; Diabetes E11.9 and Hyperglycemia R73.9 [facility] [id number] [place] [address] Jun, [facility] [address] [address] Jun, Vertigo R42 ; Syncope, unspecified syncope type R55 ; Diabetes E11.9 and Hyperglycemia R73.9 [place] [address] [address] May, Psychosis, unspecified psychosis type F29 and Bipolar affective disorder, current episode mixed, current episode severity unspecified F31.60 [place] [address] [address] May, [place] [address] [address] May, Diabetes E11.9 [facility] [address] [id number] Apr, Dental examination Z01.20 and Dental caries K02.9 [place] [id number] [place] [address] Apr, Dental examination Z01.20 and Dental abscess K04.7 [place] [id number] [place] [address] Mar, Psychosis, unspecified psychosis type F29 and Bipolar affective disorder, current episode mixed, current episode severity unspecified F31.60 [place] [address] [address] Mar, [facility] [id number] [place] [address] Feb, [place] [address] [place] [address] Feb, Left wrist pain M25.532 [facility] [id number] [place] [address] Jan, [facility] [id number] [place] [address] Jan, Psychosis, unspecified psychosis type F29 and Bipolar affective disorder, current episode mixed, current episode severity unspecified F31.60 [facility] [id number] [place] [address] Jan, Diabetes E11.9 [facility] [address] [address] Jan, Left wrist pain M25.532 [facility] [id number] [place] [address] Dec, Psychosis, unspecified psychosis type F29 and Bipolar affective disorder, current episode mixed, current episode severity unspecified F31.60 [facility] [id number] [place] [address] Dec, Syncope, unspecified syncope type R55 ; Vertigo R42 ; Diabetes E11.9 ; Psychosis, unspecified psychosis type F29 and Fall, initial encounter W19.XXXA [facility] [id number] [place] [address] Dec, Diabetes E11.9 ; Neck pain M54.2 and Vertigo R42 [facility] [id number] [place] [address] Nov, [facility] [id number] [place] [address] Nov, [facility] [id number] [place] [address] Nov, [facility] [id number] [place] [address] Nov, Diabetes E11.9 [facility] [address] [id number], [place] [address] Nov, Diabetes E11.9 [facility] [address] [facility] [id number], [place] [address] Oct, [facility] [address] [id number] [id number] Oct, [facility] [address] [facility] [id number], [place] [address] Oct, [facility] [address] [facility] [id number], [place] [address] Oct, Bipolar affective disorder, current episode mixed, current episode severity unspecified F31.60 [facility] [address] [id number] [id number] Sep, [facility] [address] [facility] [id number], [place] [address] Sep, Bipolar affective disorder, current episode mixed, current episode severity unspecified F31.60 [facility] [address] [facility] [id number], [place] [address] Sep, Acute maxillary sinusitis, recurrence not specified J01.00 [facility] [address] [facility] [id number], [place] [address] Sep, Diabetes E11.9 [facility] [address] [facility] [id number], [place] [address] July, Diabetes E11.9 [facility] [address] [facility] [id number], [place] [address] July, Diabetes E11.9 [facility] [address] [facility] [id number], [place] [address] Jun, [facility] [address] [facility] [id number], [place] [address] May, Bipolar affective disorder, current episode mixed, current episode severity unspecified F31.60 [facility] [id number] [place] [address] May, Acute non-recurrent maxillary sinusitis J01.00 [place] [id number] [place] [address] 10 Apr, 2016 Psychosis, unspecified psychosis type F29 and Bipolar affective disorder, current episode mixed, current episode severity unspecified F31.60 [facility] [id number] [place] [address] 03 Apr, 2016 Dysuria R30.0 ; Other viral agents as the cause of diseases classified elsewhere B97.89 and Acute upper respiratory infection, unspecified J06.9 [place] [address] [address] Mar, Diabetes E11.9 ; Urine leukocytes R82.99 and Psychosis, unspecified psychosis type F29 [place] [id number] [place] [address] Mar, Diabetes E11.9 [place] [id number] [place] [address] Feb, [place] [id number] [place] [address] Jan, [place] [id number] [place] [address] Dec, Psychosis, unspecified psychosis type F29 [place] [id number] [place] [address] Dec, [facility] [id number] [place] [address] Dec, [place] [id number] [place] [address] Dec, Psychosis, unspecified psychosis type F29 [place] [id number] [place] [address] Nov, Schizoaffective disorder, unspecified type F25.9 [facility] [address] [place] [address] Oct, [facility] [id number] [place] [address] Oct, Conjunctivitis of right eye, unspecified conjunctivitis type H10.9 [facility] [id number] [place] [address] Aug, [facility] [id number] [place] [id number] Jun, Encounter for dental examination Z01.20 [facility] [address] [address] Jun, Diabetes E11.9 and Bipolar affect, depressed F31.30 [facility] [id number] [place] [address] Jun, Other bipolar disorder F31.89 [facility] [id number] [place] [address] Jun, [facility] [id number] [place] [address] Apr, [facility] [id number] [place] [address] Dec, [facility] [address] [place] [address] Dec, [facility] [id number] [place] [address] Sep, [facility] [id number] [place] [address] Jun, [facility] [id number] [place] [address] Jun, [facility] [address] [place] [address] Mar, [facility] [place] [facility] [address] [facility] [id number] [place] [address] Mar, [facility] [place] [facility] [address] [id number] [place] [address] Nov, [facility] [place] [facility] [address] [id number] [place] [address] Nov, [facility] [place] [facility] [address] [id number] [place] [address] Sep, [facility] [place] [facility] [address] [id number] [place] [address] Sep, [facility] [place] [facility] [address] [id number] [place] [address] Sep, [facility] [place] [facility] [address] [id number] [place] [address] Sep, [facility] [place] [facility] [address] [id number] [place] [address] Sep, [facility] [place] [facility] [address] [id number] [place] [address] Aug, [facility] [place] [facility] [address] [id number] [place] [address] Aug, [facility] [place] [facility] [address] [id number] [place] [address] Aug, [facility] [place] [facility] [address] [id number] [place] [address] Aug, [facility] [place] [facility] [address] [id number] [place] [address] Aug, [facility] [place] [facility] [address] [id number] [place] [address] Aug, [facility] [place] [facility] [address] [id number] [place] [address] July, [facility] [place] [facility] [address] [id number] [place] [address] July, [facility] [place] [facility] [address] [id number] [place] [address] Jun, [facility] [place] [facility] [address] [id number] [place] [address] Jun, [facility] [place] [facility] [address] [id number] [place] [address] Jun, [facility] [place] [facility] [address] [id number] [place] [address] Jun, [facility] [place] [facility] [address] [id number] [place] [address] Jun, [facility] [place] [facility] [address] [id number] [place] [address] Jun, [facility] [place] [facility] [address] [id number] [place] [address] Jun, [facility] [place] [facility] [address] [id number] [place] [address] Jun, [facility] [place] [facility] [address] [id number] [place] [address] May, [facility] [place] [facility] [address] [id number] [place] [address] May, [facility] [place] [facility] [address] [id number] [place] [address] May, [facility] [place] [facility] [address] [id number] [place] [address] May, [facility] [place] [facility] [address] [id number] [place] [address] May, [facility] [place] [facility] [address] [id number] [place] [address] May, [facility] [place] [facility] [address] [id number] [place] [address] May, [facility] [place] [facility] [address] [id number] [place] [address] May, [facility] [place] [facility] [address] [id number] [place] [address] May, [facility] [place] [facility] [address] [id number] [place] [address] Apr, [facility] [place] [facility] [address] [id number] [place] [address] Apr, [facility] [place] [facility] [address] [id number] [place] [address] Mar, [facility] [place] [facility] [address] [id number] [place] [address] Mar, [facility] [place] [facility] [address] [id number] [place] [address] Feb, [facility] [place] [facility] [address] [id number] [place] [address] Feb, [facility] [place] [facility] [address] [id number] [place] [address] Nov, [facility] [place] [facility] [address] [id number] [place] [address] Nov, [facility] [place] [facility] [address] [id number] [place] [address] Oct, [facility] [place] [facility] [address] [id number] [place] [address] Oct, [facility] [place] [facility] [address] [id number] [place] [address] Oct, [facility] [place] [facility] [address] [id number] [place] [address] Oct, [facility] [place] [facility] [address] [id number] [place] [address] Oct, [facility] [place] [facility] [address] [id number] [place] [address] Sep, [facility] [place] [facility] [address] [id number] [place] [address] Sep, [facility] [address] [id number] [place] [address] Sep, [facility] [address] [id number] [place] [address] Sep, [facility] [address] [id number] [place] [address] Aug, [facility] [address] [id number] [place] [address] Aug, [facility] [address] [id number] [place] [address] Aug, [facility] [address] [id number] [place] [address] Aug, [facility] [address] [id number] [place] [address] Jun, [facility] [address] [id number] [place] [address] Jun, [facility] [address] [id number] [place] [address] Jun, [facility] [address] [id number] [place] [address] Jun, [facility] [address] [id number] [place] [address] 21 May, 2012 [facility] [place] [facility] [address] [id number] [place] [address] 18 May, 2012 [facility] [place] [facility] [address] [id number] [place] [address] 18 May, 2012 [facility] [place] [facility] [address] [id number] [place] [address] 13 May, 2012 [facility] [place] [facility] [address] [id number] [place] [address] May, [facility] [address] [id number] [place] [address] 04 May, 2012 [facility] [address] [id number] [place] [address] 21 Apr, 2012 [facility] [address] [id number] [place] [address] 20 Apr, 2012 [facility] [address] [id number] [place] [address] 19 Apr, 2012 [facility] [address] [id number] [place] [address] 19 Apr, 2012 [facility] [address] [facility] [id number] [place] [address] 19 Apr, 2012 [facility] [address] [facility] [id number] [place] [address] 20 Feb, 2012 [facility] [address] [id number] [place] [address] 20 Feb, 2012 [facility] [address] [facility] [id number] [place] [address] 19 Feb, 2012 [facility] [address] [facility] [id number] [place] [address] 19 Feb, 2012 [facility] [address] [facility] [id number] [place] [address] 19 Feb, 2012 [facility] [place] [facility] [address] [id number] [place] [address] 19 Feb, 2012 [facility] [place] [facility] [address] [id number] [place] [address] 19 Feb, 2012 [facility] [place] [facility] [address] [facility] [id number] [place] [address] 19 Feb, 2012 [facility] [address] [facility] [id number] [place] [address] 14 Feb, 2012 [facility] [place] [facility] [address] [id number] [place] [address] 14 Feb, 2012 [facility] [place] [facility] [address] [id number] [place] [address] 13 Feb, 2012 [facility] [place] [facility] [address] [id number] [place] [address] 13 Feb, 2012 [facility] [place] [facility] [address] [id number] [place] [address] 12 Feb, 2012 [facility] [place] [facility] [address] [id number] [place] [address] Feb, [facility] [place] [facility] [address] [id number] [place] [address] Feb, [facility] [place] [facility] [address] [id number] [place] [address] Feb, [facility] [place] [facility] [address] [id number] [place] [address] Feb, [facility] [place] [facility] [address] [id number] [place] [address] Feb, [facility] [place] [facility] [address] [id number] [place] [address] Feb, [facility] [place] [facility] [address] [id number] [place] [address] Feb, [facility] [place] [facility] [address] [id number] [place] [address] Feb, [facility] [place] [facility] [address] [id number] [place] [address] Feb, [facility] [place] [facility] [address] [id number] [place] [address] Feb, [facility] [place] [facility] [address] [id number] [place] [address] 04 Feb, 2012 [facility] [place] [facility] [address] [id number] [place] [address] Feb, [facility] [place] [facility] [address] [id number] [place] [address] Feb, [facility] [place] [facility] [address] [id number] [place] [address] Jan, [facility] [place] [facility] [address] [id number] [place] [address] Jan, [facility] [place] [facility] [address] [id number] [place] [address] Dec, [facility] [place] [facility] [address] [id number] [place] [address] Dec, [facility] [place] [facility] [address] [id number] [place] [address] Dec, [facility] [place] [facility] [address] [id number] [place] [address] Dec, [facility] [place] [facility] [address] [id number] [place] [address] Nov, [facility] [place] [facility] [address] [id number] [place] [address] Nov, [facility] [place] [facility] [address] [id number] [place] [address] Nov, [facility] [place] [facility] [address] [id number], [place] [address] Nov, [facility] [place] [facility] [address] [id number], [place] [address] Oct, [facility] [place] [facility] [address] [id number] [place] [address] Oct, [facility] [place] [facility] [address] [id number], [place] [address] Sep, [facility] [place] [facility] [address] [id number] [place] [address] Sep, [facility] [place] [facility] [address] [id number] [place] [address] Sep, [facility] [place] [facility] [address] [id number] [place] [address] Aug, [facility] [place] [facility] [address] [id number] [place] [address] Aug, [facility] [place] [facility] [address] [id number] [place] [address] 14 Aug, 2011 [facility] [place] [facility] [address] [id number] [place] [address] Aug, [facility] [place] [facility] [address] [id number] [place] [address] Aug, [facility] [place] [facility] [address] [id number] [place] [address] July, [facility] [place] [facility] [address] [id number] [place] [address] July, [facility] [place] [facility] [address] [id number] [place] [address] July, [facility] [place] [facility] [address] [id number] [place] [address] July, [facility] [place] [facility] [address] [id number] [place] [address] July, [facility] [place] [facility] [address] [id number] [place] [address] Jun, [facility] [place] [facility] [address] [id number] [place] [address] May, [facility] [place] [facility] [address] [id number] [place] [address] 16 Apr, 2011 [facility] [place] [facility] [address] [id number] [place] [address] Apr, [facility] [place] [facility] [address] [id number] [place] [address] Apr, [facility] [address] [id number] [place] [address] Mar, [facility] [place] [facility] [address] [id number] [place] [address] Mar, [facility] [place] [facility] [address] [id number] [place] [address] Mar, [facility] [place] [facility] [address] [id number] [place] [address] Mar, [facility] [place] [facility] [address] [id number] [place] [address] Mar, [facility] [place] [facility] [address] [id number] [place] [address] 17 Mar, 2011 [facility] [place] [facility] [address] [id number] [place] [address] 16 Mar, 2011 [facility] [place] [facility] [address] [id number] [place] [address] Mar, [facility] [place] [facility] [address] [id number] [place] [address] Feb, [facility] [place] [facility] [address] [id number], [place] [address] Feb, [facility] [place] [facility] [address] [id number], [place] [address] Feb, [facility] [place] [facility] [address] [id number], [place] [address] Feb, [facility] [place] [facility] [address] [id number] [place] [address] Feb, [facility] [place] [facility] [address] [id number], [place] [address] Jan, [facility] [place] [facility] [address] [id number] [place] [address] Jan, [facility] [place] [facility] [address] [id number], [place] [address] 03 Jan, 2011 [facility] [address] [id number] [place] [address] Jan, [facility] [place] [facility] [address] [id number] [place] [address] 14 Dec, 2010 [facility] [place] [facility] [address] [id number] [place] [address] 14 Dec, 2010 [facility] [place] [facility] [address] [id number] [place] [address] 13 Sep, 2010 [facility] [address] [id number] [place] [address], [place] [address] July, [facility] [place] [facility] [address] [id number] [place] [address] Apr, [facility] [address] [id number] [place] [address] Mar, [facility] [place] [facility] [address] [id number] [place] [address] Feb, [facility] [place] [facility] [address] [id number] [place] [address] Feb, [facility] [place] [facility] [address] [facility] [id number] [place] [address] Feb, [facility] [place] [facility] [address] [id number] [place] [address] Feb, [facility] [place] [facility] [address] [id number] [place] [address] 15 Feb, 2010 [facility] [place] [facility] [address] [id number] [place] [address] Feb, [facility] [place] [facility] [address] [facility] [id number] [place] [address] Feb, [facility] [place] [facility] [address] [facility] [id number] [place] [address] Dec, [facility] [place] [facility] [address] [facility] [id number] [place] [address] Jan, [facility] [address] [facility] [id number], [place] [address] Apr, IMMUNIZATIONS No Known Immunizations SOCIAL HISTORY Never Assessed REASON FOR VISIT Abscess PLAN OF CARE Activity Details Follow Up prn Reason:LENIN VITAL SIGNS Blood pressure systolic 156 mmHg 2017-05-04 Blood pressure diastolic 86 mmHg 2017-05-04 MEDICATIONS Medication Instructions Dosage Frequency Start Date End Date Duration Status Aspirin Adult Low Strength 81 MG Orally Once a day 1 tablet 24h Active Insulin Syringe-Needle U-40 1 subcutaneously 5 times per day as directed Mar, 30 days Active Digoxin Active Carvedilol Active Enalapril Maleate Active Tylenol 325 MG Orally every 6 hrs 2 tablets as needed 6h Active NovoLog Active Fish Oil Concentrate Active Latuda 80 MG Orally Once a day 1 tablet with food 24h 30 day(s) Active Flonase Active Levemir Active Artificial Tear Active Amoxicillin 500 MG 1 Orally every 8 hrs 2 capsules orally at once, then 8h Apr, May, 7 days Active Loratadine 10 MG Orally Once a day 1 tablet 24h Active RESULTS No Results PROCEDURES Procedure Date Ordered Result Body Site LTD ORAL EVALUATION - PROBLEM FOCUS May 04, 2017 EXTRAC ERUPTED TOOTH/EXPOSED ROOT May 04, 2017 Billing Notes on claim May 04, 2017 INTRAORL-PERIAPICAL 1 FILM [id number] May 04, 2017 INSTRUCTIONS MEDICATIONS ADMINISTERED No Known Medications [...] Hospitalization History Hyperglycemia 2012 Hospitalization History [facility] 11/28/2015-12/04/2015 2016 Hospitalization History Schizophrenia 09/26/16 Hospitalization History AMS, UTI, hyponatremia-[facility] 10/21/16 Hospitalization History stent placed 02/02/17 Hospitalization History stent placed 02/2017 Hospitalization History [facility] [place], operated by [facility]- Syncope, Dehydration and Hypotension. 06/08/2017
--- OUTSIDE RECORDS SUMMARY | 2018-09-05 12:58 | XMS REPORT ---
Author Author JOSSELIN ROSENBERG 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.10 Active 1057622483012 Problem Bipolar affective disorder, current episode mixed, current episode severity unspecified F31.60 Active [id number] Problem CVA (cerebral vascular accident) I63.9 Active 478405963 Problem Pacemaker Z95.0 Active 527992300 Problem Psychosis, unspecified psychosis type F29 Active 00992463 Problem Diabetes E11.9 Active [id number] ALLERGIES No Information ENCOUNTERS Encounter Location Date Diagnosis [place] [address] [address] Sep, [place] [address] [address] July, Diabetes E11.9 [place] [address] [address] Jun, Dehydration E86.0 ; Diabetes E11.9 and Hyperglycemia R73.9 [place] [address] [address] Jun, [place] [address] [address] Jun, Vertigo R42 ; Syncope, unspecified syncope type R55 ; Diabetes E11.9 and Hyperglycemia R73.9 [place] [address] [place] [id number] [place] [address] May, Psychosis, unspecified psychosis type F29 and Bipolar affective disorder, current episode mixed, current episode severity unspecified F31.60 [facility] [id number] [place] [address] May, [facility] [address] [place] [id number] [place] [address] May, Diabetes E11.9 [facility] [place] [facility] [address] [id number] Apr, Dental examination Z01.20 and Dental caries K02.9 [facility] [address] [place] [id number] [place] [address] Apr, Dental examination Z01.20 and Dental abscess K04.7 [place] [address] [place] [id number] [place] [address] Mar, Psychosis, unspecified psychosis type F29 and Bipolar affective disorder, current episode mixed, current episode severity unspecified F31.60 [facility] [address] [place] [id number] [place] [address] Mar, [facility] [address] [place] [id number] [place] [address] Feb, [place] [address] [place] [id number] [place] [address] Feb, Left wrist pain M25.532 [place] [address] [place] [id number] [place] [address] Jan, [facility] [address] [place] [id number] [place] [address] Jan, Psychosis, unspecified psychosis type F29 and Bipolar affective disorder, current episode mixed, current episode severity unspecified F31.60 [facility] [address] [place] [id number] [place] [address] Jan, Diabetes E11.9 [facility] [id number] [place] [address] 07 Jan, 2017 Left wrist pain M25.532 [facility] [address] [place] [id number] [address] Dec, Psychosis, unspecified psychosis type F29 and Bipolar affective disorder, current episode mixed, current episode severity unspecified F31.60 [facility] [address] [place] [id number] [place] [address] Dec, Syncope, unspecified syncope type R55 ; Vertigo R42 ; Diabetes E11.9 ; Psychosis, unspecified psychosis type F29 and Fall, initial encounter W19.XXXA [facility] [address] [place] [id number] [place] [address] Dec, Diabetes E11.9 ; Neck pain M54.2 and Vertigo R42 [facility] [address] [place] [id number] [place] [address] Nov, [facility] [address] [place] [id number] [place] [address] Nov, [facility] [address] [place] [id number] [place] [address] Nov, [facility] [address] [place] [id number] [place] [address] Nov, Diabetes E11.9 [facility] [address] [place] [id number] [place] [address] Nov, Diabetes E11.9 [facility] [address] [place] [id number] [place] [address] Oct, [facility] [address] [place] [id number] [place] [id number] Oct, [facility] [address] [place] [id number] [place] [address] Oct, [facility] [address] [place] [id number] [place] [address] Oct, Bipolar affective disorder, current episode mixed, current episode severity unspecified F31.60 [facility] [address] [place] [id number] [place] [id number] Sep, [facility] [address] [address] Sep, Bipolar affective disorder, current episode mixed, current episode severity unspecified F31.60 [facility] [address] [address] Sep, Acute maxillary sinusitis, recurrence not specified J01.00 [facility] [address] [place] [id number] [place] [address] Sep, Diabetes E11.9 [place] [address] [place] [id number] [place] [address] July, Diabetes E11.9 [place] [address] [place] [id number] [place] [address] July, Diabetes E11.9 [place] [address] [place] [id number] [place] [address] Jun, [facility] [address] [place] [id number] [place] [address] May, Bipolar affective disorder, current episode mixed, current episode severity unspecified F31.60 [facility] [id number] [place] [address] May, Acute non-recurrent maxillary sinusitis J01.00 [facility] [address] [address] 10 Apr, 2016 Psychosis, unspecified psychosis type F29 and Bipolar affective disorder, current episode mixed, current episode severity unspecified F31.60 [facility] [id number] [place] [address] Apr, Dysuria R30.0 ; Other viral agents as the cause of diseases classified elsewhere B97.89 and Acute upper respiratory infection, unspecified J06.9 [facility] [address] [address] Mar, Diabetes E11.9 ; Urine leukocytes R82.99 and Psychosis, unspecified psychosis type F29 [facility] [address] [place] [id number] [place] [address] Mar, Diabetes E11.9 [facility] [address] [place] [id number] [place] [address] Feb, [facility] [address] [place] [id number] [place] [address] Jan, [facility] [address] [place] [id number] [place] [address] Dec, Psychosis, unspecified psychosis type F29 [facility] [address] [place] [id number] [place] [address] Dec, [facility] [address] [place] [id number] [place] [address] Dec, [facility] [address] [place] [id number] [place] [address] Dec, Psychosis, unspecified psychosis type F29 [facility] [address] [place] [id number] [place] [address] Nov, Schizoaffective disorder, unspecified type F25.9 [facility] [address] [place] [id number] [place] [address] Oct, [facility] [address] [place] [id number] [place] [address] Oct, Conjunctivitis of right eye, unspecified conjunctivitis type H10.9 [facility] [id number] [place] [address] Aug, [facility] [place] [facility] [address] [place] [id number] [place] [id number] Jun, Encounter for dental examination Z01.20 [facility] [address] [place] [id number] [place] [address] Jun, Diabetes E11.9 and Bipolar affect, depressed F31.30 [facility] [place] [facility] [address] [id number] [place] [address] Jun, Other bipolar disorder F31.89 [facility] [address] [id number] [place] [address] Jun, [facility] [address] [facility] [id number] [place] [address] Apr, [facility] [address] [id number] [place] [address] Dec, [facility] [address] [id number] [place] [address] Dec, [facility] [address] [facility] [id number] [place] [address] Sep, [facility] [address] [facility] [id number] [place] [address] Jun, [facility] [place] [facility] [address] [facility] [id number] [place] [address] Jun, [facility] [address] [facility] [id number] [place] [address] Mar, [facility] [address] [facility] [id number] [place] [address] Mar, [facility] [place] [facility] [address] [facility] [id number] [address] Nov, [facility] [place] [facility] [address] [id number] [address] Nov, [facility] [place] [facility] [address] [id number] [place] [address] Sep, [facility] [place] [facility] [address] [facility] [id number] [place] [address] Sep, [facility] [place] [facility] [address] [facility] [id number] [place] [address] Sep, [facility] [place] [facility] [address] [facility] [id number] [place] [address] Sep, [facility] [place] [facility] [address] [id number] [place] [address] Sep, [facility] [place] [facility] [address] [id number] [place] [address] Aug, [facility] [place] [facility] [address] [id number] [place] [address] Aug, [facility] [place] [facility] [address] [id number] [place] [address] Aug, [facility] [place] [facility] [address] [id number] [place] [address] Aug, [facility] [place] [facility] [address] [id number] [place] [address] Aug, [facility] [place] [facility] [address] [id number] [place] [address] Aug, [facility] [place] [facility] [address] [id number] [place] [address] July, [facility] [place] [facility] [address] [id number] [place] [address] July, [facility] [place] [facility] [address] [id number] [place] [address] Jun, [facility] [place] [facility] [address] [id number] [place] [address] Jun, [facility] [place] [facility] [address] [id number] [place] [address] Jun, [facility] [place] [facility] [address] [id number] [place] [address] Jun, [facility] [place] [facility] [address] [id number] [place] [address] Jun, [facility] [place] [facility] [address] [id number] [place] [address] Jun, [facility] [place] [facility] [address] [id number] [place] [address] Jun, [facility] [place] [facility] [address] [id number] [place] [address] Jun, [facility] [place] [facility] [address] [id number] [place] [address] May, [facility] [place] [facility] [address] [id number] [place] [address] May, [facility] [place] [facility] [address] [id number] [place] [address] May, [facility] [place] [facility] [address] [id number] [place] [address] May, [facility] [place] [facility] [address] [id number] [place] [address] May, [facility] [place] [facility] [address] [id number] [place] [address] May, [facility] [place] [facility] [address] [id number] [place] [address] May, [facility] [place] [facility] [address] [id number] [place] [address] May, [facility] [place] [facility] [address] [id number] [place] [address] May, [facility] [place] [facility] [address] [id number] [place] [address] Apr, [facility] [place] [facility] [address] [id number] [place] [address] Apr, [facility] [place] [facility] [address] [id number] [place] [address] Mar, [facility] [place] [facility] [address] [id number] [place] [address] Mar, [facility] [place] [facility] [address] [id number] [place] [address] Feb, [facility] [address] [id number] [place] [address] Feb, [facility] [place] [facility] [address] [id number] [place] [address] Nov, [facility] [place] [facility] [address] [id number] [place] [address] Nov, [facility] [place] [facility] [address] [id number] [place] [address] Oct, [facility] [place] [facility] [address] [id number] [place] [address] Oct, [facility] [place] [facility] [address] [id number] [place] [address] Oct, [facility] [address] [id number] [place] [address] Oct, [facility] [place] [facility] [address] [id number] [place] [address] Oct, [facility] [place] [facility] [address] [id number] [place] [address] Sep, [facility] [place] [facility] [address] [id number] [place] [address] Sep, [facility] [place] [facility] [address] [id number] [place] [address] Sep, [facility] [place] [facility] [address] [id number] [place] [address] Sep, [facility] [place] [facility] [address] [id number] [place] [address] Aug, [facility] [place] [facility] [address] [id number] [place] [address] Aug, [facility] [place] [facility] [address] [id number] [place] [address] Aug, [facility] [place] [facility] [address] [id number] [place] [address] 07 Aug, 2012 [facility] [address] [id number] [place] [address] 19 Jun, 2012 [facility] [place] [facility] [address] [id number] [place] [address] 18 Jun, 2012 [facility] [place] [facility] [address] [id number] [place] [address] 17 Jun, 2012 [facility] [place] [facility] [address] [id number] [place] [address] 17 Jun, 2012 [facility] [address] [id number] [place] [address] May, [facility] [place] [facility] [address] [id number] [place] [address] 18 May, 2012 [facility] [place] [facility] [address] [id number] [place] [address] 18 May, 2012 [facility] [address] [id number] [place] [address] 13 May, 2012 [facility] [place] [facility] [address] [id number] [place] [address] 11 May, 2012 [facility] [address] [id number] [place] [address] 04 May, 2012 [facility] [place] [facility] [address] [id number] [place] [address] Apr, [facility] [place] [facility] [address] [id number] [place] [address] Apr, [facility] [place] [facility] [address] [id number] [place] [address] Apr, [facility] [place] [facility] [address] [id number] [place] [address] Apr, [facility] [place] [facility] [address] [id number] [place] [address] 19 Apr, 2012 [facility] [address] [id number] [place] [address] 20 Feb, 2012 [facility] [place] [facility] [address] [id number] [place] [address] 20 Feb, 2012 [facility] [place] [facility] [address] [id number] [place] [address] 19 Feb, 2012 [facility] [place] [facility] [address] [id number] [place] [address] 19 Feb, 2012 [facility] [address] [id number] [place] [address] 19 Feb, 2012 [facility] [place] [facility] [address] [id number] [place] [address] 19 Feb, 2012 [facility] [place] [facility] [address] [id number] [place] [address] 19 Feb, 2012 [facility] [place] [facility] [address] [id number] [place] [address] 19 Feb, 2012 [facility] [place] [facility] [address] [id number] [place] [address] 14 Feb, 2012 [facility] [place] [facility] [address] [id number] [place] [address] 14 Feb, 2012 [facility] [place] [facility] [address] [id number] [place] [address] 13 Feb, 2012 [facility] [place] [facility] [address] [id number] [place] [address] 13 Feb, 2012 [facility] [place] [facility] [address] [id number] [place] [address] 12 Feb, 2012 [facility] [place] [facility] [address] [id number] [place] [address] 12 Feb, 2012 [facility] [place] [facility] [address] [id number] [place] [address] 12 Feb, 2012 [facility] [place] [facility] [address] [id number] [place] [address] Feb, [facility] [address] [id number] [place] [address] Feb, [facility] [place] [facility] [address] [id number] [place] [address] Feb, [facility] [address] [id number] [place] [address] Feb, [facility] [place] [facility] [address] [id number] [place] [address] Feb, [facility] [address] [id number] [place] [address] Feb, [facility] [address] [id number] [place] [address] Feb, [facility] [address] [id number] [place] [address] Feb, [facility] [address] [id number] [place] [address] Feb, [facility] [place] [facility] [address] [id number] [place] [address] Feb, [facility] [address] [id number] [place] [address] Feb, [facility] [place] [facility] [address] [id number] [place] [address] Jan, [facility] [place] [facility] [address] [id number] [place] [address] Jan, [facility] [place] [facility] [address] [id number] [place] [address] Dec, [facility] [place] [facility] [address] [id number] [place] [address] Dec, [facility] [place] [facility] [address] [id number] [place] [address] Dec, [facility] [place] [facility] [address] [id number] [place] [address] 17 Dec, 2011 [facility] [place] [facility] [address] [id number] [place] [address] 26 Nov, 2011 [facility] [place] [facility] [address] [id number] [place] [address] 12 Nov, 2011 [facility] [place] [facility] [address] [id number] [place] [address] 06 Nov, 2011 [facility] [place] [facility] [address] [id number] [place] [address] 04 Nov, 2011 [facility] [place] [facility] [address] [id number] [place] [address] Oct, [facility] [place] [facility] [address] [id number] [place] [address] Oct, [facility] [place] [facility] [address] [id number] [place] [address] Sep, [facility] [place] [facility] [address] [id number] [place] [address] Sep, [facility] [place] [facility] [address] [id number] [place] [address] Sep, [facility] [place] [facility] [address] [id number] [place] [address] Aug, [facility] [place] [facility] [address] [id number] [place] [address] Aug, [facility] [place] [facility] [address] [id number] [place] [address] 14 Aug, 2011 [facility] [place] [facility] [address] [id number] [place] [address] 13 Aug, 2011 [facility] [place] [facility] [address] [id number] [place] [address] 13 Aug, 2011 [facility] [place] [facility] [address] [id number] [place] [address] July, [facility] [address] [id number] [place] [address] July, [facility] [address] [id number] [place] [address] July, [facility] [address] [id number] [place] [address] July, [facility] [address] [id number] [place] [address] July, [facility] [address] [id number] [place] [address] Jun, [facility] [address] [id number] [place] [address] May, [facility] [address] [id number] [place] [address] 16 Apr, 2011 [facility] [address] [id number] [place] [address] Apr, [facility] [address] [id number] [place] [address] Apr, [facility] [address] [id number] [place] [address] Mar, [facility] [address] [id number] [place] [address] Mar, [facility] [place] [facility] [address] [id number] [place] [address] Mar, [facility] [place] [facility] [address] [id number] [place] [address] Mar, [facility] [place] [facility] [address] [id number] [place] [address] Mar, [facility] [place] [facility] [address] [id number] [place] [address] Mar, [facility] [place] [facility] [address] [id number] [place] [address] Mar, [facility] [place] [facility] [address] [id number] [place] [address] Mar, [facility] [place] [facility] [address] [id number] [place] [address] Feb, [facility] [place] [facility] [address] [id number] [place] [address] Feb, [facility] [place] [facility] [address] [id number] [place] [address] Feb, [facility] [place] [facility] [address] [id number] [place] [address] Feb, [facility] [place] [facility] [address] [id number] [place] [address] Feb, [facility] [place] [facility] [address] [id number] [place] [address] Jan, [facility] [place] [facility] [address] [id number] [place] [address] Jan, [facility] [place] [facility] [address] [id number] [place] [address] Jan, [facility] [place] [facility] [address] [id number] [place] [address] Jan, [facility] [place] [facility] [address] [id number] [place] [address] Dec, [facility] [place] [facility] [address] [id number] [place] [address] Dec, [facility] [place] [facility] [address] [id number] [place] [address] Sep, [facility] [place] [facility] [address] [id number] [place] [address] July, [facility] [place] [facility] [address] [id number] [place] [address] Apr, [facility] [address] [facility] [id number] [place] [address] Mar, [facility] [address] [facility] [id number] [place] [address] Feb, [facility] [address] [facility] [id number] [place] [address] Feb, [facility] [address] [facility] [id number] [place] [address] Feb, [facility] [address] [facility] [id number] [address] Feb, [facility] [address] [facility] [id number] [address] Feb, [facility] [id number] [place] [address] Feb, [facility] [id number] [address] Feb, [facility] [id number] [address] Dec, [facility] [id number] [address] Jan, [facility] [id number] [address] Apr, IMMUNIZATIONS No Known Immunizations SOCIAL HISTORY Never Assessed REASON FOR VISIT refill PLAN OF CARE VITAL SIGNS MEDICATIONS Unknown [...] Hospitalization History Hyperglycemia 2012 Hospitalization History [facility] 11/28/2015-12/04/20152015 Hospitalization History Schizophrenia 09/26/16 Hospitalization History AMS, UTI, hyponatremia-[facility] 10/21/16 Hospitalization History stent placed 02/02/17 Hospitalization History stent placed 02/2017 Hospitalization History [facility]- Syncope, Dehydration and Hypotension. 06/08/2017
--- OUTSIDE RECORDS SUMMARY | 2018-09-05 12:58 | XMS REPORT ---
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 Active [id number] Problem Bipolar affective disorder, current episode mixed, current episode severity unspecified F31.60 Active 499599102 Problem CVA (cerebral vascular accident) I63.9 Active 119122844 Problem Pacemaker Z95.0 Active 278480016 Problem Psychosis, unspecified psychosis type F29 Active 83087286 Problem Diabetes E11.9 Active 12948628 ALLERGIES Substance Reaction Event Type Date Status Codeine Sulfate Unknown Drug Allergy Feb, Active Ada Unknown Non Drug Allergy Feb, Active Tejeda Unknown Non Drug Allergy Feb, Active Pork Unknown Non Drug Allergy Feb, Active Yeast Unknown Non Drug Allergy Feb, Active Chamberlain Unknown Non Drug Allergy Feb, Active ENCOUNTERS Encounter Location Date Diagnosis [place] [id number] [place] [address] Sep, [facility] [id number] [place] [address] July, Diabetes E11.9 [facility] [id number] [place] [address] Jun, Dehydration E86.0 ; Diabetes E11.9 and Hyperglycemia R73.9 [facility] [id number] [place] [address] Jun, [place] [id number] [place] [address] Jun, Vertigo R42 ; Syncope, unspecified syncope type R55 ; Diabetes E11.9 and Hyperglycemia R73.9 [place] [id number] [place] [address] May, Psychosis, unspecified psychosis type F29 and Bipolar affective disorder, current episode mixed, current episode severity unspecified F31.60 [place] [address] [place] [id number] [place] [address] May, [place] [address] [address] May, Diabetes E11.9 [facility] [address] [id number] Apr, Dental examination Z01.20 and Dental caries K02.9 [place] [id number] [place] [address] Apr, Dental examination Z01.20 and Dental abscess K04.7 [place] [id number] [place] [address] Mar, Psychosis, unspecified psychosis type F29 and Bipolar affective disorder, current episode mixed, current episode severity unspecified F31.60 [place] [id number] [place] [address] Mar, [place] [id number] [place] [address] Feb, [place] [id number] [place] [address] Feb, Left wrist pain M25.532 [place] [id number] [place] [address] Jan, [place] [id number] [place] [address] Jan, Psychosis, unspecified psychosis type F29 and Bipolar affective disorder, current episode mixed, current episode severity unspecified F31.60 [place] [address] [place] [id number] [place] [address] Jan, Diabetes E11.9 [facility] [id number] [place] [address] Jan, Left wrist pain M25.532 [facility] [id number] [place] [address] Dec, Psychosis, unspecified psychosis type F29 and Bipolar affective disorder, current episode mixed, current episode severity unspecified F31.60 [facility] [id number] [place] [address] Dec, Syncope, unspecified syncope type R55 ; Vertigo R42 ; Diabetes E11.9 ; Psychosis, unspecified psychosis type F29 and Fall, initial encounter W19.XXXA [facility] [id number] [place] [address] Dec, Diabetes E11.9 ; Neck pain M54.2 and Vertigo R42 [facility] [id number] [place] [address] 13 Nov, 2016 [facility] [id number] [place] [address] 08 Nov, 2016 [facility] [id number] [place] [address] Nov, [facility] [id number] [place] [address] 06 Nov, 2016 Diabetes E11.9 [facility] [id number] [place] [address] 05 Nov, 2016 Diabetes E11.9 [facility] [id number] [place] [address] Oct, [facility] [id number] [place] [id number] Oct, [facility] [id number] [place] [address] Oct, [facility] [address], [place] [address] Oct, Bipolar affective disorder, current episode mixed, current episode severity unspecified F31.60 [facility] [address] [id number] [id number] Sep, [facility] [address] [address] Sep, Bipolar affective disorder, current episode mixed, current episode severity unspecified F31.60 [facility] [address], [place] [address] Sep, Acute maxillary sinusitis, recurrence not specified J01.00 [facility] [address], [place] [address] Sep, Diabetes E11.9 [facility] [id number] [place] [address] July, Diabetes E11.9 [facility] [id number] [place] [address] July, Diabetes E11.9 [facility] [address] [place] [address] Jun, [facility] [address], [place] [address] May, Bipolar affective disorder, current episode mixed, current episode severity unspecified F31.60 [facility] [address], [place] [address] May, Acute non-recurrent maxillary sinusitis J01.00 [facility] [address], [place] [address] Apr, Psychosis, unspecified psychosis type F29 and Bipolar affective disorder, current episode mixed, current episode severity unspecified F31.60 [facility] [address], [place] [address] Apr, Dysuria R30.0 ; Other viral agents as the cause of diseases classified elsewhere B97.89 and Acute upper respiratory infection, unspecified J06.9 [facility] [id number] [place] [address] Mar, Diabetes E11.9 ; Urine leukocytes R82.99 and Psychosis, unspecified psychosis type F29 [facility] [address] [place] [id number] [place] [address] Mar, Diabetes E11.9 [facility] [id number] [place] [address] Feb, [place] [address] [address] Jan, [facility] [id number] [place] [address] Dec, Psychosis, unspecified psychosis type F29 [facility] [address] [address] Dec, [facility] [id number] [place] [address] Dec, [facility] [id number] [place] [address] Dec, Psychosis, unspecified psychosis type F29 [facility] [id number] [place] [address] Nov, Schizoaffective disorder, unspecified type F25.9 [facility] [id number] [place] [address] Oct, [facility] [id number] [place] [address] Oct, Conjunctivitis of right eye, unspecified conjunctivitis type H10.9 [facility] [id number] [place] [address] Aug, [facility] [id number] [id number] Jun, Encounter for dental examination Z01.20 [facility] [id number] [place] [address] Jun, Diabetes E11.9 and Bipolar affect, depressed F31.30 [facility] [id number] [place] [address] Jun, Other bipolar disorder F31.89 [facility] [id number] [place] [address] Jun, [facility] [id number] [place] [address] Apr, [facility] [id number] [place] [address] Dec, [facility] [id number] [place] [address] Dec, [facility] [id number] [place] [address] Sep, [facility] [id number] [place] [address] Jun, [facility] [id number] [place] [address] Jun, [facility] [address] [place] [address] Mar, [facility] [address] [place] [address] Mar, [facility] [id number] [place] [address] Nov, [facility] [id number] [place] [address] Nov, [facility] [address], [place] [address] Sep, [facility] [place] [facility] [address] [id number] [place] [address] Sep, [facility] [place] [facility] [address] [id number] [place] [address] Sep, [facility] [place] [facility] [address] [id number] [place] [address] Sep, [facility] [place] [facility] [address] [id number] [place] [address] Sep, [facility] [place] [facility] [address] [id number] [place] [address] Aug, [facility] [place] [facility] [address] [id number] [place] [address] Aug, [facility] [place] [facility] [address] [id number] [place] [address] Aug, [facility] [place] [facility] [address] [id number] [place] [address] Aug, [facility] [place] [facility] [address] [id number] [place] [address] Aug, [facility] [place] [facility] [address] [id number] [place] [address] Aug, [facility] [place] [facility] [address] [id number] [place] [address] July, [facility] [place] [facility] [address] [id number] [place] [address] July, [facility] [place] [facility] [address] [id number] [place] [address] Jun, [facility] [place] [facility] [address] [id number] [place] [address] Jun, [facility] [place] [facility] [address] [id number] [place] [address] Jun, [facility] [place] [facility] [address] [id number] [place] [address] Jun, [facility] [place] [facility] [address] [id number] [place] [address] Jun, [facility] [place] [facility] [address] [id number] [place] [address] Jun, [facility] [place] [facility] [address] [id number] [place] [address] Jun, [facility] [place] [facility] [address] [id number] [place] [address] Jun, [facility] [place] [facility] [address] [id number] [place] [address] May, [facility] [place] [facility] [address] [id number] [place] [address] May, [facility] [place] [facility] [address] [id number] [place] [address] May, [facility] [place] [facility] [address] [id number] [place] [address] May, [facility] [place] [facility] [address] [id number] [place] [address] May, [facility] [place] [facility] [address] [id number] [place] [address] May, [facility] [place] [facility] [address] [id number] [place] [address] May, [facility] [place] [facility] [address] [id number] [place] [address] May, [facility] [place] [facility] [address] [id number] [place] [address] May, [facility] [place] [facility] [address] [id number] [place] [address] Apr, [facility] [place] [facility] [address] [id number] [place] [address] Apr, [facility] [place] [facility] [address] [id number] [place] [address] Mar, [facility] [address] [id number] [place] [address] Mar, [facility] [address] [id number] [place] [address] Feb, [facility] [address] [id number] [place] [address] Feb, [facility] [address] [id number] [place] [address] Nov, [facility] [address] [id number] [place] [address] Nov, [facility] [address] [id number] [place] [address] Oct, [facility] [address] [id number] [place] [address] Oct, [facility] [address] [id number] [place] [address] Oct, [facility] [address] [id number] [place] [address] Oct, [facility] [address] [id number] [place] [address] Oct, [facility] [address] [id number] [place] [address] Sep, [facility] [address] [id number] [place] [address] Sep, [facility] [place] [facility] [address] [id number] [place] [address] Sep, [facility] [place] [facility] [address] [id number] [place] [address] Sep, [facility] [address] [id number] [place] [address] Aug, [facility] [place] [facility] [address] [id number] [place] [address] 17 Aug, 2012 [facility] [place] [facility] [address] [id number] [place] [address] 10 Aug, 2012 [facility] [place] [facility] [address] [id number] [place] [address] 07 Aug, 2012 [facility] [place] [facility] [address] [id number] [place] [address] 19 Jun, 2012 [facility] [address] [id number] [place] [address] 18 Jun, 2012 [facility] [place] [facility] [address] [id number] [place] [address] 17 Jun, 2012 [facility] [address] [id number] [place] [address] Jun, [facility] [place] [facility] [address] [id number] [place] [address] 21 May, 2012 [facility] [place] [facility] [address] [id number] [place] [address] 18 May, 2012 [facility] [place] [facility] [address] [id number] [place] [address] 18 May, 2012 [facility] [place] [facility] [address] [id number] [place] [address] 13 May, 2012 [facility] [place] [facility] [address] [id number], [place] [address] 11 May, 2012 [facility] [place] [facility] [address] [id number] [place] [address] 04 May, 2012 [facility] [place] [facility] [address] [id number] [place] [address] 21 Apr, 2012 [facility] [place] [facility] [address] [id number], [place] [address] 20 Apr, 2012 [facility] [place] [facility] [address] [id number], [place] [address] 19 Apr, 2012 [facility] [address] [id number] [place] [address] 19 Apr, 2012 [facility] [address] [id number] [place] [address] 19 Apr, 2012 [facility] [address] [id number] [place] [address] 20 Feb, 2012 [facility] [address] [id number] [place] [address] 20 Feb, 2012 [facility] [address] [id number] [place] [address] 19 Feb, 2012 [facility] [address] [id number] [place] [address] 19 Feb, 2012 [facility] [address] [id number] [place] [address] 19 Feb, 2012 [facility] [address] [id number] [place] [address] 19 Feb, 2012 [facility] [address] [id number] [place] [address] 19 Feb, 2012 [facility] [address] [id number] [place] [address] 19 Feb, 2012 [facility] [address] [id number] [place] [address] 14 Feb, 2012 [facility] [address] [id number] [place] [address] 14 Feb, 2012 [facility] [place] [facility] [address] [id number] [place] [address] 13 Feb, 2012 [facility] [place] [facility] [address] [id number] [place] [address] 13 Feb, 2012 [facility] [address] [id number] [place] [address] 12 Feb, 2012 [facility] [address] [id number] [place] [address] Feb, [facility] [place] [facility] [address] [id number] [place] [address] Feb, [facility] [place] [facility] [address] [id number] [place] [address] Feb, [facility] [place] [facility] [address] [id number] [place] [address] Feb, [facility] [place] [facility] [address] [id number] [place] [address] Feb, [facility] [place] [facility] [address] [id number] [place] [address] Feb, [facility] [place] [facility] [address] [id number] [place] [address] Feb, [facility] [place] [facility] [address] [id number] [place] [address] Feb, [facility] [place] [facility] [address] [id number] [place] [address] Feb, [facility] [place] [facility] [address] [id number] [place] [address] Feb, [facility] [place] [facility] [address] [id number] [place] [address] Feb, [facility] [place] [facility] [address] [id number] [place] [address] Feb, [facility] [place] [facility] [address] [id number] [place] [address] Feb, [facility] [place] [facility] [address] [id number] [place] [address] Jan, [facility] [place] [facility] [address] [id number] [place] [address] Jan, [facility] [place] [facility] [address] [id number] [place] [address] Dec, [facility] [place] [facility] [address] [id number] [place] [address] Dec, [facility] [place] [facility] [address] [id number] [place] [address] Dec, [facility] [place] [facility] [address] [id number] [place] [address] Dec, [facility] [place] [facility] [address] [id number] [place] [address] Nov, [facility] [place] [facility] [address] [id number] [place] [address] Nov, [facility] [place] [facility] [address] [id number] [place] [address] 06 Nov, 2011 [facility] [place] [facility] [address] [id number] [place] [address] Nov, [facility] [place] [facility] [address] [id number] [place] [address] Oct, [facility] [place] [facility] [address] [id number] [place] [address] Oct, [facility] [place] [facility] [address] [id number] [place] [address] Sep, [facility] [place] [facility] [address] [id number] [place] [address] Sep, [facility] [place] [facility] [address] [id number] [place] [address] Sep, [facility] [place] [facility] [address] [id number] [place] [address] Aug, [facility] [place] [facility] [address] [id number] [place] [address] Aug, [facility] [place] [facility] [address] [id number] [place] [address] Aug, [facility] [place] [facility] [address] [id number] [place] [address] Aug, [facility] [address] [id number] [place] [address] Aug, [facility] [address] [id number] [place] [address] July, [facility] [address] [id number] [place] [address] July, [facility] [address] [id number] [place] [address] July, [facility] [address] [id number] [place] [address] July, [facility] [address] [id number] [place] [address] July, [facility] [address] [id number] [place] [address] Jun, [facility] [address] [id number] [place] [address] May, [facility] [address] [id number] [place] [address] Apr, [facility] [address] [id number] [place] [address] Apr, [facility] [address] [id number] [place] [address] Apr, [facility] [address] [id number] [place] [address] Mar, [facility] [address] [id number] [place] [address] Mar, [facility] [address] [id number] [place] [address] Mar, [facility] [address] [id number] [place] [address] Mar, [facility] [place] [facility] [address] [id number] [place] [address] Mar, [facility] [place] [facility] [address] [id number] [place] [address] 17 Mar, 2011 [facility] [place] [facility] [address] [id number] [place] [address] 16 Mar, 2011 [facility] [place] [facility] [address] [id number] [place] [address] Mar, [facility] [place] [facility] [address] [id number] [place] [address] Feb, [facility] [place] [facility] [address] [id number] [place] [address] Feb, [facility] [place] [facility] [address] [id number] [place] [address] Feb, [facility] [place] [facility] [address] [id number] [place] [address] Feb, [facility] [place] [facility] [address] [id number] [place] [address] Feb, [facility] [place] [facility] [address] [id number] [place] [address] Jan, [facility] [place] [facility] [address] [id number] [place] [address] Jan, [facility] [place] [facility] [address] [id number], [place] [address] Jan, [facility] [place] [facility] [address] [id number] [place] [address] Jan, [facility] [place] [facility] [address] [id number], [place] [address] 14 Dec, 2010 [facility] [place] [facility] [address] [id number] [place] [address] 14 Dec, 2010 [facility] [place] [facility] [id number], [place] [address] 13 Sep, 2010 [facility] [id number], [place] [address] July, [facility] [id number], [place] [address] Apr, [facility] [id number] [place] [address] Mar, [facility] [id number], [place] [address] Feb, [facility] [id number] [place] [address] Feb, [facility] [id number], [place] [address] Feb, [facility] [id number] [place] [address] Feb, [facility] [id number], [place] [address] Feb, [facility] [id number], [place] [address] Feb, [facility] [id number], [place] [address] Feb, [facility] [id number], [place] [address] Dec, [facility] [address] [id number] [address] Jan, [facility] [id number], [place] [address] Apr, IMMUNIZATIONS No Known Immunizations SOCIAL HISTORY Never Assessed REASON FOR VISIT f/u on left wrist pain, PT says it feels better than it did but still hurts-Irvin marcos MA PLAN OF CARE Activity Details Follow Up 2 Months Reason:DM and fasting labs VITAL SIGNS Height 64 in 2017-02-18 Weight 178.4 lbs 2017-02-18 Temperature 98.0 degrees Fahrenheit 2017-02-18 Heart Rate 76 bpm 2017-02-18 Respiratory Rate 18 2017-02-18 BMI 30.62 kg/m2 2017-02-18 Blood pressure systolic 132 mmHg 2017-02-18 Blood pressure diastolic 80 mmHg 2017-02-18 MEDICATIONS Medication Instructions Dosage Frequency Start Date End Date Duration Status Hydrocodone-Acetaminophen 5-325 MG Orally every 6 hrs 1 tablet as needed 6h Active Flonase Active Fish Oil Concentrate Active Levemir Active Carvedilol Active Amoxicillin 500 MG Orally 3 times a day 1 tablet 8h Active Artificial Tear Active Loratadine Active Aspirin Adult Low Strength Active Tylenol Active Enalapril Maleate Active NovoLog Active Latuda 80 MG Orally Once a day 1 tablet with food 24h 30 day(s) Active Digoxin Active RESULTS Name Result Date Reference Range Xray : Wrist, Left 2 views (IN HOUSE) 2017-02-18 PROCEDURES Procedure Date Ordered Result Body Site X-RAY EXAM OF WRIST Feb 18, 2017 INSTRUCTIONS MEDICATIONS ADMINISTERED No Known Medications [...] Surgery Hospitalization History Hyperglycemia [address] [facility] 11/28/2015-12/04/2015 2016 Hospitalization History Schizophrenia 09/26/16 Hospitalization History [facility], UTI, hyponatremia-[facility] 10/21/16 Hospitalization History stent placed 02/02/17 Hospitalization History stent placed 02/2017 Hospitalization History [facility], [place]- Syncope, Dehydration and Hypotension. 06/08/2017
--- OUTSIDE RECORDS SUMMARY | 2018-09-05 12:59 | XMS REPORT ---
Author Author WOOD CALDERON Organization [facility] Address [address] [place] [address] Care Team Providers Care Buttonhole Marker Name Role Phone WOOD CALDERON Unavailable PROBLEMS Type Condition ICD9-CM Code LWV24-ZS Code Onset Dates Condition Status SNOMED Code Problem Coronary artery disease involving [place] coronary artery of [place] heart without angina pectoris I25.10 Active 4712673032101 Problem Bipolar affective disorder, current episode mixed, current episode severity unspecified F31.60 Active 695555525 Problem CVA (cerebral vascular accident) I63.9 Active 204294057 Problem Pacemaker Z95.0 Active 272630795 Problem Psychosis, unspecified psychosis type F29 Active 57862986 Problem Diabetes E11.9 Active 34307248 ALLERGIES No Information ENCOUNTERS Encounter Location Date Diagnosis [place] [address] [address] Aug, [place] [address] [address] July, [place] [address] [address] Jun, Dehydration E86.0 ; Diabetes E11.9 and Hyperglycemia R73.9 [place] [address] [address] Jun, [place] [address] [address] Jun, Vertigo R42 ; Syncope, unspecified syncope type R55 ; Diabetes E11.9 and Hyperglycemia R73.9 [place] [address] [address] May, Psychosis, unspecified psychosis type F29 and Bipolar affective disorder, current episode mixed, current episode severity unspecified F31.60 [facility] [id number] [place] [address] May, [facility] [address] [place] [id number] [place] [address] May, Diabetes E11.[address] [facility] [address] [id number] Apr, Dental examination Z01.20 and Dental caries K02.9 [facility] [address] [place] [id number] [place] [address] Apr, Dental examination Z01.20 and Dental abscess K04.7 [place] [address] [place] [id number] [place] [address] Mar, Psychosis, unspecified psychosis type F29 and Bipolar affective disorder, current episode mixed, current episode severity unspecified F31.60 [facility] [address] [place] [id number] [place] [address] Mar, [facility] [address] [place] [id number] [place] [address] Feb, [place] [address] [place] [id number] [place] [address] Feb, Left wrist pain M25.532 [place] [address] [place] [id number] [place] [address] Jan, [facility] [address] [place] [id number] [place] [address] Jan, Psychosis, unspecified psychosis type F29 and Bipolar affective disorder, current episode mixed, current episode severity unspecified F31.60 [facility] [address] [place] [id number] [place] [address] Jan, Diabetes E11.9 [facility] [id number] [place] [address] 07 Jan, 2017 Left wrist pain M25.532 [facility] [address] [place] [id number] [address] Dec, Psychosis, unspecified psychosis type F29 and Bipolar affective disorder, current episode mixed, current episode severity unspecified F31.60 [facility] [address] [place] [id number] [place] [address] Dec, Syncope, unspecified syncope type R55 ; Vertigo R42 ; Diabetes E11.9 ; Psychosis, unspecified psychosis type F29 and Fall, initial encounter W19.XXXA [facility] [address] [place] [id number] [place] [address] Dec, Diabetes E11.9 ; Neck pain M54.2 and Vertigo R42 [facility] [address] [place] [id number] [place] [address] Nov, [facility] [address] [place] [id number] [place] [address] Nov, [facility] [address] [place] [id number] [place] [address] Nov, [facility] [address] [place] [id number] [place] [address] Nov, Diabetes E11.9 [facility] [address] [place] [id number] [place] [address] Nov, Diabetes E11.9 [facility] [address] [place] [id number] [place] [address] Oct, [facility] [address] [place] [id number] [place] [id number] Oct, [facility] [address] [place] [id number] [place] [address] Oct, [facility] [address] [place] [id number] [place] [address] Oct, Bipolar affective disorder, current episode mixed, current episode severity unspecified F31.60 [facility] [address] [place] [id number] [place] [id number] Sep, [facility] [address] [address] Sep, Bipolar affective disorder, current episode mixed, current episode severity unspecified F31.60 [facility] [address], [place] [address] Sep, Acute maxillary sinusitis, recurrence not specified J01.00 [facility] [address] [place] [id number] [place] [address] Sep, Diabetes E11.9 [place] [address] [place] [id number] [place] [address] July, Diabetes E11.9 [place] [address] [place] [id number] [place] [address] July, Diabetes E11.9 [place] [address] [place] [id number] [place] [address] Jun, [facility] [address] [place] [id number] [place] [address] May, Bipolar affective disorder, current episode mixed, current episode severity unspecified F31.60 [facility] [id number] [place] [address] May, Acute non-recurrent maxillary sinusitis J01.00 [facility] [address] [address] 10 Apr, 2016 Psychosis, unspecified psychosis type F29 and Bipolar affective disorder, current episode mixed, current episode severity unspecified F31.60 [facility] [address] [place] [address] Apr, Dysuria R30.0 ; Other viral agents as the cause of diseases classified elsewhere B97.89 and Acute upper respiratory infection, unspecified J06.9 [facility] [address] [address] Mar, Diabetes E11.9 ; Urine leukocytes R82.99 and Psychosis, unspecified psychosis type F29 [facility] [address] [place] [id number] [place] [address] Mar, Diabetes E11.9 [facility] [address] [place] [id number] [place] [address] Feb, [facility] [address] [place] [id number] [place] [address] Jan, [facility] [address] [place] [id number] [place] [address] Dec, Psychosis, unspecified psychosis type F29 [facility] [address] [place] [id number] [place] [address] Dec, [facility] [address] [place] [id number] [place] [address] Dec, [facility] [address] [place] [id number] [place] [address] Dec, Psychosis, unspecified psychosis type F29 [facility] [address] [place] [id number] [place] [address] Nov, Schizoaffective disorder, unspecified type F25.9 [facility] [address] [place] [id number] [place] [address] Oct, [facility] [address] [place] [id number] [place] [address] Oct, Conjunctivitis of right eye, unspecified conjunctivitis type H10.9 [facility] [id number] [place] [address] Aug, [facility] [address] [place] [id number] [place] [id number] Jun, Encounter for dental examination Z01.20 [facility] [address] [place] [id number] [place] [address] Jun, Diabetes E11.9 and Bipolar affect, depressed F31.[address] [facility] [address] [id number] [place] [address] Jun, Other bipolar disorder F31.89 [facility] [address] [id number] [place] [address] Jun, [facility] [address] [facility] [id number] [place] [address] Apr, [facility] [address] [id number] [place] [address] Dec, [facility] [address] [id number] [place] [address] Dec, [facility] [address] [facility] [id number] [place] [address] Sep, [facility] [address] [facility] [id number] [place] [address] Jun, [facility] [place] [facility] [address] [facility] [id number] [place] [address] Jun, [facility] [address] [facility] [id number] [place] [address] Mar, [facility] [address] [facility] [id number] [place] [address] Mar, [facility] [place] [facility] [address] [facility] [id number] [address] Nov, [facility] [place] [facility] [address] [id number] [address] Nov, [facility] [place] [facility] [address] [id number] [place] [address] Sep, [facility] [place] [facility] [address] [facility] [id number] [place] [address] Sep, [facility] [place] [facility] [address] [facility] [id number] [place] [address] Sep, [facility] [place] [facility] [address] [facility] [id number] [place] [address] Sep, [facility] [place] [facility] [address] [id number] [place] [address] Sep, [facility] [place] [facility] [address] [id number] [place] [address] Aug, [facility] [place] [facility] [address] [id number] [place] [address] Aug, [facility] [place] [facility] [address] [id number] [place] [address] Aug, [facility] [place] [facility] [address] [id number] [place] [address] Aug, [facility] [place] [facility] [address] [id number] [place] [address] Aug, [facility] [place] [facility] [address] [id number] [place] [address] Aug, [facility] [place] [facility] [address] [id number] [place] [address] July, [facility] [place] [facility] [address] [id number] [place] [address] July, [facility] [place] [facility] [address] [id number] [place] [address] Jun, [facility] [place] [facility] [address] [id number] [place] [address] Jun, [facility] [place] [facility] [address] [id number] [place] [address] Jun, [facility] [place] [facility] [address] [id number] [place] [address] Jun, [facility] [place] [facility] [address] [id number] [place] [address] Jun, [facility] [place] [facility] [address] [id number] [place] [address] Jun, [facility] [place] [facility] [address] [id number] [place] [address] Jun, [facility] [place] [facility] [address] [id number] [place] [address] Jun, [facility] [place] [facility] [address] [id number] [place] [address] May, [facility] [place] [facility] [address] [id number] [place] [address] May, [facility] [place] [facility] [address] [id number] [place] [address] May, [facility] [place] [facility] [address] [id number] [place] [address] May, [facility] [place] [facility] [address] [id number] [place] [address] May, [facility] [place] [facility] [address] [id number] [place] [address] May, [facility] [place] [facility] [address] [id number] [place] [address] May, [facility] [place] [facility] [address] [id number] [place] [address] May, [facility] [place] [facility] [address] [id number] [place] [address] May, [facility] [place] [facility] [address] [id number] [place] [address] Apr, [facility] [place] [facility] [address] [id number] [place] [address] Apr, [facility] [place] [facility] [address] [id number] [place] [address] Mar, [facility] [place] [facility] [address] [id number] [place] [address] Mar, [facility] [place] [facility] [address] [id number] [place] [address] Feb, [facility] [address] [id number] [place] [address] Feb, [facility] [place] [facility] [address] [id number] [place] [address] Nov, [facility] [place] [facility] [address] [id number] [place] [address] Nov, [facility] [place] [facility] [address] [id number] [place] [address] Oct, [facility] [place] [facility] [address] [id number] [place] [address] Oct, [facility] [place] [facility] [address] [id number] [place] [address] Oct, [facility] [address] [id number] [place] [address] Oct, [facility] [place] [facility] [address] [id number] [place] [address] Oct, [facility] [place] [facility] [address] [id number] [place] [address] Sep, [facility] [place] [facility] [address] [id number] [place] [address] Sep, [facility] [place] [facility] [address] [id number] [place] [address] Sep, [facility] [place] [facility] [address] [id number] [place] [address] Sep, [facility] [place] [facility] [address] [id number] [place] [address] Aug, [facility] [place] [facility] [address] [id number] [place] [address] Aug, [facility] [place] [facility] [address] [id number] [place] [address] Aug, [facility] [place] [facility] [address] [id number] [place] [address] 07 Aug, 2012 [facility] [address] [id number] [place] [address] 19 Jun, 2012 [facility] [place] [facility] [address] [id number] [place] [address] 18 Jun, 2012 [facility] [place] [facility] [address] [id number] [place] [address] 17 Jun, 2012 [facility] [place] [facility] [address] [id number] [place] [address] 17 Jun, 2012 [facility] [address] [id number] [place] [address] May, [facility] [place] [facility] [address] [id number] [place] [address] 18 May, 2012 [facility] [place] [facility] [address] [id number] [place] [address] 18 May, 2012 [facility] [address] [id number] [place] [address] 13 May, 2012 [facility] [place] [facility] [address] [id number] [place] [address] 11 May, 2012 [facility] [address] [id number] [place] [address] 04 May, 2012 [facility] [place] [facility] [address] [id number] [place] [address] Apr, [facility] [place] [facility] [address] [id number] [place] [address] Apr, [facility] [place] [facility] [address] [id number] [place] [address] Apr, [facility] [place] [facility] [address] [id number] [place] [address] Apr, [facility] [place] [facility] [address] [id number] [place] [address] 19 Apr, 2012 [facility] [address] [id number] [place] [address] 20 Feb, 2012 [facility] [place] [facility] [address] [id number] [place] [address] 20 Feb, 2012 [facility] [place] [facility] [address] [id number] [place] [address] 19 Feb, 2012 [facility] [place] [facility] [address] [id number] [place] [address] 19 Feb, 2012 [facility] [address] [id number] [place] [address] 19 Feb, 2012 [facility] [place] [facility] [address] [id number] [place] [address] 19 Feb, 2012 [facility] [place] [facility] [address] [id number] [place] [address] 19 Feb, 2012 [facility] [place] [facility] [address] [id number] [place] [address] 19 Feb, 2012 [facility] [place] [facility] [address] [id number] [place] [address] 14 Feb, 2012 [facility] [place] [facility] [address] [id number] [place] [address] 14 Feb, 2012 [facility] [place] [facility] [address] [id number] [place] [address] 13 Feb, 2012 [facility] [place] [facility] [address] [id number] [place] [address] 13 Feb, 2012 [facility] [place] [facility] [address] [id number] [place] [address] 12 Feb, 2012 [facility] [place] [facility] [address] [id number] [place] [address] 12 Feb, 2012 [facility] [place] [facility] [address] [id number] [place] [address] 12 Feb, 2012 [facility] [place] [facility] [address] [id number] [place] [address] Feb, [facility] [address] [id number] [place] [address] Feb, [facility] [place] [facility] [address] [id number] [place] [address] Feb, [facility] [address] [id number] [place] [address] Feb, [facility] [place] [facility] [address] [id number] [place] [address] Feb, [facility] [address] [id number] [place] [address] Feb, [facility] [address] [id number] [place] [address] Feb, [facility] [address] [id number] [place] [address] Feb, [facility] [address] [id number] [place] [address] Feb, [facility] [place] [facility] [address] [id number] [place] [address] Feb, [facility] [address] [id number] [place] [address] Feb, [facility] [place] [facility] [address] [id number] [place] [address] Jan, [facility] [place] [facility] [address] [id number] [place] [address] Jan, [facility] [place] [facility] [address] [id number] [place] [address] Dec, [facility] [place] [facility] [address] [id number] [place] [address] Dec, [facility] [place] [facility] [address] [id number] [place] [address] Dec, [facility] [place] [facility] [address] [id number] [place] [address] 17 Dec, 2011 [facility] [place] [facility] [address] [id number] [place] [address] 26 Nov, 2011 [facility] [place] [facility] [address] [id number] [place] [address] 12 Nov, 2011 [facility] [place] [facility] [address] [id number] [place] [address] 06 Nov, 2011 [facility] [place] [facility] [address] [id number] [place] [address] 04 Nov, 2011 [facility] [place] [facility] [address] [id number] [place] [address] Oct, [facility] [place] [facility] [address] [id number] [place] [address] Oct, [facility] [place] [facility] [address] [id number] [place] [address] Sep, [facility] [place] [facility] [address] [id number] [place] [address] Sep, [facility] [place] [facility] [address] [id number], [place] [address] Sep, [facility] [place] [facility] [address] [id number] [place] [address] Aug, [facility] [place] [facility] [address] [id number], [place] [address] Aug, [facility] [place] [facility] [address] [id number] [place] [address] 14 Aug, 2011 [facility] [place] [facility] [address] [id number], [place] [address] 13 Aug, 2011 [facility] [place] [facility] [address] [id number], [place] [address] 13 Aug, 2011 [facility] [place] [facility] [address] [id number], [place] [address] July, [facility] [address] [id number] [place] [address] July, [facility] [address] [id number] [place] [address] July, [facility] [address] [id number] [place] [address] July, [facility] [address] [id number] [place] [address] July, [facility] [address] [id number] [place] [address] Jun, [facility] [address] [id number] [place] [address] May, [facility] [address] [id number] [place] [address] 16 Apr, 2011 [facility] [address] [id number] [place] [address] Apr, [facility] [address] [id number] [place] [address] Apr, [facility] [address] [id number] [place] [address] Mar, [facility] [address] [id number] [place] [address] Mar, [facility] [place] [facility] [address] [id number] [place] [address] Mar, [facility] [place] [facility] [address] [id number] [place] [address] Mar, [facility] [place] [facility] [address] [id number] [place] [address] Mar, [facility] [place] [facility] [address] [id number] [place] [address] Mar, [facility] [place] [facility] [address] [id number] [place] [address] Mar, [facility] [place] [facility] [address] [id number] [place] [address] Mar, [facility] [place] [facility] [address] [id number] [place] [address] Feb, [facility] [place] [facility] [address] [id number] [place] [address] Feb, [facility] [place] [facility] [address] [id number] [place] [address] Feb, [facility] [place] [facility] [address] [id number] [place] [address] Feb, [facility] [place] [facility] [address] [id number] [place] [address] Feb, [facility] [place] [facility] [address] [id number] [place] [address] Jan, [facility] [place] [facility] [address] [id number] [place] [address] Jan, [facility] [place] [facility] [address] [id number] [place] [address] Jan, [facility] [place] [facility] [address] [id number] [place] [address] Jan, [facility] [place] [facility] [address] [id number] [place] [address] Dec, [facility] [place] [facility] [address] [id number] [place] [address] Dec, [facility] [place] [facility] [address] [id number] [place] [address] Sep, [facility] [place] [facility] [address] [id number] [place] [address] July, [facility] [place] [facility] [address] [id number], [place] [address] Apr, [facility] [address] [facility] [id number], [place] [address] Mar, [facility] [address] [facility] [id number], [place] [address] Feb, [facility] [address] [facility] [id number], [place] [address] Feb, [facility] [address] [facility] [id number], [place] [address] Feb, [facility] [address] [facility] [id number], [place] [address] Feb, [facility] [address] [facility] [id number], [place] [address] Feb, [facility] [facility] [id number] [address] Feb, [facility] [id number], [place] [address] Feb, [facility] [id number] [address] Dec, [facility] [id number] [place] [address] Jan, [facility] [id number], [place] [address] Apr, IMMUNIZATIONS No Known Immunizations SOCIAL HISTORY Never Assessed REASON FOR VISIT Return call from [facility] PLAN OF CARE VITAL SIGNS MEDICATIONS Unknown [...] Surgery Hospitalization History Hyperglycemia 2012 Hospitalization History [facility] 11/28/2015-12/04/2015 2016 Hospitalization History Schizophrenia 09/26/16 Hospitalization History AMS, UTI, hyponatremia-VC 10/21/16 Hospitalization History stent placed 02/02/17 Hospitalization History stent placed 02/2017 Hospitalization History [facility], [place]- Syncope, Dehydration and Hypotension. 06/08/2017
--- OUTSIDE RECORDS SUMMARY | 2018-09-05 12:59 | XMS REPORT ---
Author Author WOOD CALDERON Organization [facility] Address [address] [place] [address] Care Team Providers Care Rater Associate Name Role Phone WOOD CALDERON Unavailable PROBLEMS Type Condition ICD9-CM Code RKO08-HO Code Onset Dates Condition Status SNOMED Code Problem Coronary artery disease involving lime coronary artery of lime heart without angina pectoris I25.10 Active 9869119265005 Problem Bipolar affective disorder, current episode mixed, current episode severity unspecified F31.60 Active 257853225 Problem CVA (cerebral vascular accident) I63.9 Active 798614084 Problem Pacemaker Z95.0 Active 853332654 Problem Psychosis, unspecified psychosis type F29 Active 31524949 Problem Diabetes E11.9 Active 03513745 ALLERGIES No Information ENCOUNTERS Encounter Location Date Diagnosis [place] [address] [address] Aug, [place] [address] [address] July, [place] [address] [address] Jun, Dehydration E86.0 ; Diabetes E11.9 and Hyperglycemia R73.9 [place] [address] [address] Jun, [place] [address] [address] Jun, Vertigo R42 ; Syncope, unspecified syncope type R55 ; Diabetes E11.9 and Hyperglycemia R73.9 [place] [address] [address] May, Psychosis, unspecified psychosis type F29 and Bipolar affective disorder, current episode mixed, current episode severity unspecified F31.60 [facility] [id number] [place] [address] May, [facility] [address] [place] [id number] [place] [address] May, Diabetes E11.9 [facility] [address] [id number] Apr, Dental examination Z01.20 and Dental caries K02.9 [facility] [address] [place] [id number] [place] [address] Apr, Dental examination Z01.20 and Dental abscess K04.7 [place] [address] [place] [id number] [place] [address] Mar, Psychosis, unspecified psychosis type F29 and Bipolar affective disorder, current episode mixed, current episode severity unspecified F31.60 [facility] [address] [place] [id number] [place] [address] Mar, [facility] [address] [place] [id number] [place] [address] Feb, [place] [address] [place] [id number] [place] [address] Feb, Left wrist pain M25.532 [place] [address] [place] [id number] [place] [address] Jan, [facility] [address] [place] [id number] [place] [address] Jan, Psychosis, unspecified psychosis type F29 and Bipolar affective disorder, current episode mixed, current episode severity unspecified F31.60 [facility] [address] [place] [id number] [place] [address] Jan, Diabetes E11.9 [facility] [id number] [place] [address] 07 Jan, 2017 Left wrist pain M25.532 [facility] [address] [place] [id number] [address] Dec, Psychosis, unspecified psychosis type F29 and Bipolar affective disorder, current episode mixed, current episode severity unspecified F31.60 [facility] [address] [place] [id number] [place] [address] Dec, Syncope, unspecified syncope type R55 ; Vertigo R42 ; Diabetes E11.9 ; Psychosis, unspecified psychosis type F29 and Fall, initial encounter W19.XXXA [facility] [address] [place] [id number] [place] [address] Dec, Diabetes E11.9 ; Neck pain M54.2 and Vertigo R42 [facility] [address] [place] [id number] [place] [address] Nov, [facility] [address] [place] [id number] [place] [address] Nov, [facility] [address] [place] [id number] [place] [address] Nov, [facility] [address] [place] [id number] [place] [address] Nov, Diabetes E11.9 [facility] [address] [place] [id number] [place] [address] Nov, Diabetes E11.9 [facility] [address] [place] [id number] [place] [address] Oct, [facility] [address] [place] [id number] [place] [id number] Oct, [facility] [address] [place] [id number] [place] [address] Oct, [facility] [address] [place] [id number] [place] [address] Oct, Bipolar affective disorder, current episode mixed, current episode severity unspecified F31.60 [facility] [address] [place] [id number] [place] [id number] Sep, [facility] [address] [address] Sep, Bipolar affective disorder, current episode mixed, current episode severity unspecified F31.60 [facility] [address] [address] Sep, Acute maxillary sinusitis, recurrence not specified J01.00 [facility] [address] [place] [id number] [place] [address] Sep, Diabetes E11.9 [place] [address] [place] [id number] [place] [address] July, Diabetes E11.9 [place] [address] [place] [id number] [place] [address] July, Diabetes E11.9 [place] [address] [place] [id number] [place] [address] Jun, [facility] [address] [place] [id number] [place] [address] May, Bipolar affective disorder, current episode mixed, current episode severity unspecified F31.60 [facility] [address] [place] [address] May, Acute non-recurrent maxillary sinusitis J01.00 [facility] [address] [address] 10 Apr, 2016 Psychosis, unspecified psychosis type F29 and Bipolar affective disorder, current episode mixed, current episode severity unspecified F31.60 [facility] [address] [place] [address] Apr, Dysuria R30.0 ; Other viral agents as the cause of diseases classified elsewhere B97.89 and Acute upper respiratory infection, unspecified J06.9 [facility] [address] [address] Mar, Diabetes E11.9 ; Urine leukocytes R82.99 and Psychosis, unspecified psychosis type F29 [facility] [address] [place] [id number] [place] [address] Mar, Diabetes E11.9 [facility] [address] [place] [id number] [place] [address] Feb, [facility] [address] [place] [id number] [place] [address] Jan, [facility] [address] [place] [id number] [place] [address] Dec, Psychosis, unspecified psychosis type F29 [facility] [address] [place] [id number] [place] [address] Dec, [facility] [address] [place] [id number] [place] [address] Dec, [facility] [address] [place] [id number] [place] [address] Dec, Psychosis, unspecified psychosis type F29 [facility] [address] [place] [id number] [place] [address] Nov, Schizoaffective disorder, unspecified type F25.9 [facility] [address] [place] [id number] [place] [address] Oct, [facility] [address] [place] [id number] [place] [address] Oct, Conjunctivitis of right eye, unspecified conjunctivitis type H10.9 [facility] [id number] [place] [address] Aug, [facility] [address] [place] [id number] [place] [id number] Jun, Encounter for dental examination Z01.20 [facility] [address] [place] [id number] [place] [address] Jun, Diabetes E11.9 and Bipolar affect, depressed F31.30 [facility] [address] [id number] [place] [address] Jun, Other bipolar disorder F31.89 [facility] [address] [id number] [place] [address] Jun, [facility] [address] [facility] [id number] [place] [address] Apr, [facility] [address] [id number] [place] [address] Dec, [facility] [address] [id number] [place] [address] Dec, [facility] [address] [facility] [id number] [place] [address] Sep, [facility] [address] [facility] [id number] [place] [address] Jun, [facility] [place] [facility] [address] [facility] [id number] [place] [address] Jun, [facility] [address] [facility] [id number] [place] [address] Mar, [facility] [address] [facility] [id number] [place] [address] Mar, [facility] [place] [facility] [address] [facility] [id number] [address] Nov, [facility] [place] [facility] [address] [id number] [address] Nov, [facility] [place] [facility] [address] [id number] [place] [address] Sep, [facility] [place] [facility] [address] [facility] [id number] [place] [address] Sep, [facility] [place] [facility] [address] [facility] [id number] [place] [address] Sep, [facility] [place] [facility] [address] [facility] [id number] [place] [address] Sep, [facility] [place] [facility] [address] [id number] [place] [address] Sep, [facility] [place] [facility] [address] [id number] [place] [address] Aug, [facility] [place] [facility] [address] [id number] [place] [address] Aug, [facility] [place] [facility] [address] [id number] [place] [address] Aug, [facility] [place] [facility] [address] [id number] [place] [address] Aug, [facility] [place] [facility] [address] [id number] [place] [address] Aug, [facility] [place] [facility] [address] [id number] [place] [address] Aug, [facility] [place] [facility] [address] [id number] [place] [address] July, [facility] [place] [facility] [address] [id number] [place] [address] July, [facility] [place] [facility] [address] [id number] [place] [address] Jun, [facility] [place] [facility] [address] [id number] [place] [address] Jun, [facility] [place] [facility] [address] [id number] [place] [address] Jun, [facility] [place] [facility] [address] [id number] [place] [address] Jun, [facility] [place] [facility] [address] [id number] [place] [address] Jun, [facility] [place] [facility] [address] [id number] [place] [address] Jun, [facility] [place] [facility] [address] [id number] [place] [address] Jun, [facility] [place] [facility] [address] [id number] [place] [address] Jun, [facility] [place] [facility] [address] [id number] [place] [address] May, [facility] [place] [facility] [address] [id number] [place] [address] May, [facility] [place] [facility] [address] [id number] [place] [address] May, [facility] [place] [facility] [address] [id number] [place] [address] May, [facility] [place] [facility] [address] [id number] [place] [address] May, [facility] [place] [facility] [address] [id number] [place] [address] May, [facility] [place] [facility] [address] [id number] [place] [address] May, [facility] [place] [facility] [address] [id number] [place] [address] May, [facility] [place] [facility] [address] [id number] [place] [address] May, [facility] [place] [facility] [address] [id number] [place] [address] Apr, [facility] [place] [facility] [address] [id number] [place] [address] Apr, [facility] [place] [facility] [address] [id number] [place] [address] Mar, [facility] [place] [facility] [address] [id number] [place] [address] Mar, [facility] [place] [facility] [address] [id number] [place] [address] Feb, [facility] [address] [id number] [place] [address] Feb, [facility] [place] [facility] [address] [id number] [place] [address] Nov, [facility] [place] [facility] [address] [id number] [place] [address] Nov, [facility] [place] [facility] [address] [id number] [place] [address] Oct, [facility] [place] [facility] [address] [id number] [place] [address] Oct, [facility] [place] [facility] [address] [id number] [place] [address] Oct, [facility] [address] [id number] [place] [address] Oct, [facility] [place] [facility] [address] [id number] [place] [address] Oct, [facility] [place] [facility] [address] [id number] [place] [address] Sep, [facility] [place] [facility] [address] [id number] [place] [address] Sep, [facility] [place] [facility] [address] [id number] [place] [address] Sep, [facility] [place] [facility] [address] [id number] [place] [address] Sep, [facility] [place] [facility] [address] [id number] [place] [address] Aug, [facility] [place] [facility] [address] [id number] [place] [address] Aug, [facility] [place] [facility] [address] [id number] [place] [address] Aug, [facility] [place] [facility] [address] [id number] [place] [address] 07 Aug, 2012 [facility] [address] [id number] [place] [address] 19 Jun, 2012 [facility] [place] [facility] [address] [id number] [place] [address] 18 Jun, 2012 [facility] [place] [facility] [address] [id number] [place] [address] 17 Jun, 2012 [facility] [place] [facility] [address] [id number] [place] [address] 17 Jun, 2012 [facility] [address] [id number] [place] [address] May, [facility] [place] [facility] [address] [id number] [place] [address] 18 May, 2012 [facility] [place] [facility] [address] [id number] [place] [address] 18 May, 2012 [facility] [address] [id number] [place] [address] 13 May, 2012 [facility] [place] [facility] [address] [id number] [place] [address] 11 May, 2012 [facility] [address] [id number] [place] [address] 04 May, 2012 [facility] [place] [facility] [address] [id number] [place] [address] Apr, [facility] [place] [facility] [address] [id number] [place] [address] Apr, [facility] [place] [facility] [address] [id number] [place] [address] Apr, [facility] [place] [facility] [address] [id number] [place] [address] Apr, [facility] [place] [facility] [address] [id number] [place] [address] 19 Apr, 2012 [facility] [address] [id number] [place] [address] 20 Feb, 2012 [facility] [place] [facility] [address] [id number] [place] [address] 20 Feb, 2012 [facility] [place] [facility] [address] [id number] [place] [address] 19 Feb, 2012 [facility] [place] [facility] [address] [id number] [place] [address] 19 Feb, 2012 [facility] [address] [id number] [place] [address] 19 Feb, 2012 [facility] [place] [facility] [address] [id number] [place] [address] 19 Feb, 2012 [facility] [place] [facility] [address] [id number] [place] [address] 19 Feb, 2012 [facility] [place] [facility] [address] [id number] [place] [address] 19 Feb, 2012 [facility] [place] [facility] [address] [id number] [place] [address] 14 Feb, 2012 [facility] [place] [facility] [address] [id number] [place] [address] 14 Feb, 2012 [facility] [place] [facility] [address] [id number] [place] [address] 13 Feb, 2012 [facility] [place] [facility] [address] [id number] [place] [address] 13 Feb, 2012 [facility] [place] [facility] [address] [id number] [place] [address] 12 Feb, 2012 [facility] [place] [facility] [address] [id number] [place] [address] 12 Feb, 2012 [facility] [place] [facility] [address] [id number] [place] [address] 12 Feb, 2012 [facility] [place] [facility] [address] [id number] [place] [address] Feb, [facility] [address] [id number] [place] [address] Feb, [facility] [place] [facility] [address] [id number] [place] [address] Feb, [facility] [address] [id number] [place] [address] Feb, [facility] [place] [facility] [address] [id number] [place] [address] Feb, [facility] [address] [id number] [place] [address] Feb, [facility] [address] [id number] [place] [address] Feb, [facility] [address] [id number] [place] [address] Feb, [facility] [address] [id number] [place] [address] Feb, [facility] [place] [facility] [address] [id number] [place] [address] Feb, [facility] [address] [id number] [place] [address] Feb, [facility] [place] [facility] [address] [id number] [place] [address] Jan, [facility] [place] [facility] [address] [id number] [place] [address] Jan, [facility] [place] [facility] [address] [id number] [place] [address] Dec, [facility] [place] [facility] [address] [id number] [place] [address] Dec, [facility] [place] [facility] [address] [id number] [place] [address] Dec, [facility] [place] [facility] [address] [id number] [place] [address] 17 Dec, 2011 [facility] [place] [facility] [address] [id number] [place] [address] 26 Nov, 2011 [facility] [place] [facility] [address] [id number] [place] [address] 12 Nov, 2011 [facility] [place] [facility] [address] [id number] [place] [address] 06 Nov, 2011 [facility] [place] [facility] [address] [id number] [place] [address] 04 Nov, 2011 [facility] [place] [facility] [address] [id number] [place] [address] Oct, [facility] [place] [facility] [address] [id number] [place] [address] Oct, [facility] [place] [facility] [address] [id number] [place] [address] Sep, [facility] [place] [facility] [address] [id number] [place] [address] Sep, [facility] [place] [facility] [address] [id number], [place] [address] Sep, [facility] [place] [facility] [address] [id number] [place] [address] Aug, [facility] [place] [facility] [address] [id number], [place] [address] Aug, [facility] [place] [facility] [address] [id number] [place] [address] 14 Aug, 2011 [facility] [place] [facility] [address] [id number], [place] [address] 13 Aug, 2011 [facility] [place] [facility] [address] [id number], [place] [address] 13 Aug, 2011 [facility] [place] [facility] [address] [id number], [place] [address] July, [facility] [address] [id number] [place] [address] July, [facility] [address] [id number] [place] [address] July, [facility] [address] [id number] [place] [address] July, [facility] [address] [id number] [place] [address] July, [facility] [address] [id number] [place] [address] Jun, [facility] [address] [id number] [place] [address] May, [facility] [address] [id number] [place] [address] 16 Apr, 2011 [facility] [address] [id number] [place] [address] Apr, [facility] [address] [id number] [place] [address] Apr, [facility] [address] [id number] [place] [address] Mar, [facility] [address] [id number] [place] [address] Mar, [facility] [place] [facility] [address] [id number] [place] [address] Mar, [facility] [place] [facility] [address] [id number] [place] [address] Mar, [facility] [place] [facility] [address] [id number] [place] [address] Mar, [facility] [place] [facility] [address] [id number] [place] [address] Mar, [facility] [place] [facility] [address] [id number] [place] [address] Mar, [facility] [place] [facility] [address] [id number] [place] [address] Mar, [facility] [place] [facility] [address] [id number] [place] [address] Feb, [facility] [place] [facility] [address] [id number] [place] [address] Feb, [facility] [place] [facility] [address] [id number] [place] [address] Feb, [facility] [place] [facility] [address] [id number] [place] [address] Feb, [facility] [place] [facility] [address] [id number] [place] [address] Feb, [facility] [place] [facility] [address] [id number] [place] [address] Jan, [facility] [place] [facility] [address] [id number] [place] [address] Jan, [facility] [place] [facility] [address] [id number] [place] [address] Jan, [facility] [place] [facility] [address] [id number] [place] [address] Jan, [facility] [place] [facility] [address] [id number] [place] [address] Dec, [facility] [place] [facility] [address] [id number] [place] [address] Dec, [facility] [place] [facility] [address] [id number] [place] [address] Sep, [facility] [place] [facility] [address] [id number] [place] [address] July, [facility] [place] [facility] [address] [id number], [place] [address] Apr, [facility] [address] [facility] [id number], [place] [address] Mar, [facility] [address] [facility] [id number], [place] [address] Feb, [facility] [address] [facility] [id number], [place] [address] Feb, [facility] [address] [facility] [facility] [id number] [address] Feb, [facility] [address] [facility] [id number], [place] [address] Feb, [facility] [address] [facility] [id number], [place] [address] Feb, [facility] [id number], [place] [address] Feb, [facility] [id number], [place] [address] Feb, [facility] [id number], [place] [address] Dec, [facility] [id number], [place] [address] Jan, [facility] [id number], [place] [address] Apr, IMMUNIZATIONS No Known Immunizations SOCIAL HISTORY Never Assessed REASON FOR VISIT Medication question PLAN OF CARE VITAL SIGNS MEDICATIONS Medication Instructions Dosage Frequency Start Date End Date Duration Status NovoLog 100 UNIT/ML Subcutaneous 3 times a day Inject 5 units before meals 8h Nov, 60 days Active RESULTS No Results PROCEDURES No [...] Hospitalization History Hyperglycemia 2012 Hospitalization History [facility] Unit 11/28/2015-12/04/20152015 Hospitalization History Schizophrenia 09/26/16 Hospitalization History AMS, UTI, hyponatremia-[facility] 10/21/16 Hospitalization History stent placed 02/02/17 Hospitalization History stent placed 02/2017 Hospitalization History [facility]- Syncope, Dehydration and Hypotension. 06/08/2017
--- OUTSIDE RECORDS SUMMARY | 2018-09-05 13:00 | XMS REPORT ---
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.10 Active [id number] Problem Bipolar affective disorder, current episode mixed, current episode severity unspecified F31.60 Active 870499584 Problem CVA (cerebral vascular accident) I63.9 Active 479631173 Problem Pacemaker Z95.0 Active 198314703 Problem Psychosis, unspecified psychosis type F29 Active 72060554 Problem Diabetes E11.9 Active 05794530 ALLERGIES No Information ENCOUNTERS Encounter Location Date Diagnosis [facility] [address] [address] July, [facility] [address] [address] Jun, [facility] [address] [address] Jun, Vertigo R42 ; Syncope, unspecified syncope type R55 ; Diabetes E11.9 and Hyperglycemia R73.9 [facility] [address] [address] May, Psychosis, unspecified psychosis type F29 and Bipolar affective disorder, current episode mixed, current episode severity unspecified F31.60 [facility] [address] [address] May, [facility] [address] [address] May, Diabetes E11.9 [facility] [address] [id number] Apr, Dental examination Z01.20 and Dental caries K02.9 [facility] [id number] [place] [address] Apr, Dental examination Z01.20 and Dental abscess K04.7 [facility] [id number] [place] [address] Mar, Psychosis, unspecified psychosis type F29 and Bipolar affective disorder, current episode mixed, current episode severity unspecified F31.60 [facility] [id number] [place] [address] Mar, [facility] [id number] [place] [address] Feb, [facility] [id number] [place] [address] Feb, Left wrist pain M25.532 [facility] [id number] [place] [address] Jan, [facility] [id number] [place] [address] Jan, Psychosis, unspecified psychosis type F29 and Bipolar affective disorder, current episode mixed, current episode severity unspecified F31.60 [facility] [id number] [place] [address] Jan, Diabetes E11.9 [facility] [id number] [place] [address] Jan, Left wrist pain M25.532 [facility] [id number] [place] [address] Dec, Psychosis, unspecified psychosis type F29 and Bipolar affective disorder, current episode mixed, current episode severity unspecified F31.60 [facility] [id number] [place] [address] Dec, Syncope, unspecified syncope type R55 ; Vertigo R42 ; Diabetes E11.9 ; Psychosis, unspecified psychosis type F29 and Fall, initial encounter W19.XXXA [facility] [id number] [place] [address] Dec, Diabetes E11.9 ; Neck pain M54.2 and Vertigo R42 [facility] [id number] [place] [address] Nov, [facility] [id number] [place] [address] Nov, [facility] [id number] [place] [address] Nov, [facility] [id number] [place] [address] Nov, Diabetes E11.9 [facility] [id number] [place] [address] Nov, Diabetes E11.9 [facility] [id number] [place] [address] Oct, [facility] [id number] [place] [id number] Oct, [facility] [id number] [place] [address] Oct, [facility] [id number] [place] [address] Oct, Bipolar affective disorder, current episode mixed, current episode severity unspecified F31.60 [facility] [id number] [id number] Sep, [facility] [address], [place] [address] Sep, Bipolar affective disorder, current episode mixed, current episode severity unspecified F31.60 [facility] [address], [place] [address] Sep, Acute maxillary sinusitis, recurrence not specified J01.00 [facility] [id number] [place] [address] Sep, Diabetes E11.9 [facility] [id number] [place] [address] July, Diabetes E11.9 [facility] [id number] [place] [address] July, Diabetes E11.9 [facility] [id number] [place] [address] Jun, [facility] [facility] [id number] [place] [address] May, Bipolar affective disorder, current episode mixed, current episode severity unspecified F31.60 [facility] [id number] [place] [address] May, Acute non-recurrent maxillary sinusitis J01.00 [facility] [facility] [id number] [place] [address] 10 Apr, 2016 Psychosis, unspecified psychosis type F29 and Bipolar affective disorder, current episode mixed, current episode severity unspecified F31.60 [facility] [id number] [place] [address] Apr, Dysuria R30.0 ; Other viral agents as the cause of diseases classified elsewhere B97.89 and Acute upper respiratory infection, unspecified J06.9 [place] [id number] [place] [address] Mar, Diabetes E11.9 ; Urine leukocytes R82.99 and Psychosis, unspecified psychosis type F29 [facility] [id number] [place] [address] Mar, Diabetes E11.9 [facility] [id number] [place] [address] Feb, [facility] [address], [place] [address] Jan, [facility] [id number] [place] [address] Dec, Psychosis, unspecified psychosis type F29 [facility] [id number] [place] [address] Dec, [facility] [id number] [place] [address] Dec, [facility] [id number] [place] [address] Dec, Psychosis, unspecified psychosis type F29 [facility] [id number] [place] [address] Nov, Schizoaffective disorder, unspecified type F25.9 [facility] [id number] [place] [address] 16 Oct, 2015 [facility] [id number] [place] [address] 14 Oct, 2015 Conjunctivitis of right eye, unspecified conjunctivitis type H10.9 [facility] [id number] [place] [address] Aug, [facility] [id number] [place] [id number] Jun, Encounter for dental examination Z01.20 [facility] [id number] [place] [address] Jun, Diabetes E11.9 and Bipolar affect, depressed F31.30 [facility] [facility] [id number] [place] [address] Jun, Other bipolar disorder F31.89 [facility] [id number] [place] [address] 13 Jun, 2015 [facility] [address] [place] [address] Apr, [facility] [place] [facility] [address] [id number] [place] [address] Dec, [facility] [place] [facility] [address] [id number] [place] [address] Dec, [facility] [place] [facility] [address] [id number] [place] [address] Sep, [facility] [place] [facility] [address] [id number] [place] [address] Jun, [facility] [place] [facility] [address] [id number] [place] [address] Jun, [facility] [place] [facility] [address] [id number] [place] [address] Mar, [facility] [place] [facility] [address] [id number] [place] [address] Mar, [facility] [place] [facility] [address] [id number] [place] [address] Nov, [facility] [place] [facility] [address] [id number] [place] [address] Nov, [facility] [place] [facility] [address] [id number] [place] [address] Sep, [facility] [place] [facility] [address] [id number] [place] [address] Sep, [facility] [place] [facility] [address] [id number] [place] [address] Sep, [facility] [place] [facility] [address] [id number] [place] [address] Sep, [facility] [place] [facility] [address] [id number] [place] [address] Sep, [facility] [place] [facility] [address] [id number] [place] [address] Aug, [facility] [place] [facility] [address] [id number] [place] [address] Aug, [facility] [place] [facility] [address] [id number] [place] [address] Aug, [facility] [place] [facility] [address] [id number] [place] [address] Aug, [facility] [place] [facility] [address] [id number] [place] [address] Aug, [facility] [place] [facility] [address] [id number] [place] [address] Aug, [facility] [place] [facility] [address] [id number] [place] [address] July, [facility] [place] [facility] [address] [id number] [place] [address] July, [facility] [place] [facility] [address] [id number] [place] [address] Jun, [facility] [place] [facility] [address] [id number] [place] [address] Jun, [facility] [place] [facility] [address] [id number] [place] [address] Jun, [facility] [place] [facility] [address] [id number] [place] [address] Jun, [facility] [place] [facility] [address] [id number] [place] [address] Jun, [facility] [place] [facility] [address] [id number] [place] [address] Jun, [facility] [place] [facility] [address] [id number] [place] [address] Jun, [facility] [place] [facility] [address] [id number] [place] [address] Jun, [facility] [place] [facility] [address] [id number] [place] [address] May, [facility] [place] [facility] [address] [id number] [place] [address] May, [facility] [place] [facility] [address] [id number] [place] [address] May, [facility] [place] [facility] [address] [id number] [place] [address] May, [facility] [place] [facility] [address] [id number] [place] [address] May, [facility] [place] [facility] [address] [id number] [place] [address] May, [facility] [place] [facility] [address] [id number] [place] [address] May, [facility] [place] [facility] [address] [id number] [place] [address] May, [facility] [place] [facility] [address] [id number] [place] [address] May, [facility] [place] [facility] [address] [id number] [place] [address] Apr, [facility] [place] [facility] [address] [id number] [place] [address] Apr, [facility] [place] [facility] [address] [id number] [place] [address] Mar, [facility] [place] [facility] [address] [id number] [place] [address] Mar, [facility] [place] [facility] [address] [id number] [place] [address] Feb, [facility] [place] [facility] [address] [id number] [place] [address] Feb, [facility] [place] [facility] [address] [id number] [place] [address] Nov, [facility] [place] [facility] [address] [id number] [place] [address] Nov, [facility] [place] [facility] [address] [id number] [place] [address] Oct, [facility] [place] [facility] [address] [id number] [place] [address] Oct, [facility] [place] [facility] [address] [id number] [place] [address] Oct, [facility] [place] [facility] [address] [id number] [place] [address] Oct, [facility] [place] [facility] [address] [id number] [place] [address] Oct, [facility] [place] [facility] [address] [id number] [place] [address] Sep, [facility] [place] [facility] [address] [id number] [place] [address] Sep, [facility] [place] [facility] [address] [id number] [place] [address] Sep, [facility] [place] [facility] [address] [id number] [place] [address] Sep, [facility] [place] [facility] [address] [id number] [place] [address] Aug, [facility] [place] [facility] [address] [id number] [place] [address] Aug, [facility] [place] [facility] [address] [id number] [place] [address] Aug, [facility] [place] [facility] [address] [id number] [place] [address] Aug, [facility] [place] [facility] [address] [id number] [place] [address] Jun, [facility] [place] [facility] [address] [id number] [place] [address] 18 Jun, 2012 [facility] [place] [facility] [address] [id number] [place] [address] 17 Jun, 2012 [facility] [place] [facility] [address] [id number] [place] [address] 17 Jun, 2012 [facility] [place] [facility] [address] [id number] [place] [address] 21 May, 2012 [facility] [place] [facility] [address] [id number] [place] [address] 18 May, 2012 [facility] [place] [facility] [address] [id number] [place] [address] 18 May, 2012 [facility] [place] [facility] [address] [id number] [place] [address] 13 May, 2012 [facility] [place] [facility] [address] [id number] [place] [address] 11 May, 2012 [facility] [place] [facility] [address] [id number] [place] [address] 04 May, 2012 [facility] [place] [facility] [address] [id number] [place] [address] 21 Apr, 2012 [facility] [place] [facility] [address] [id number] [place] [address] 20 Apr, 2012 [facility] [place] [facility] [address] [id number] [place] [address] Apr, [facility] [place] [facility] [address] [id number], [place] [address] Apr, [facility] [place] [facility] [address] [id number] [place] [address] Apr, [facility] [place] [facility] [address] [id number] [place] [address] Feb, [facility] [place] [facility] [address] [id number] [place] [address] Feb, [facility] [place] [facility] [address] [id number] [place] [address] 19 Feb, 2012 [facility] [address] [id number] [place] [address] 19 Feb, 2012 [facility] [address] [id number] [place] [address] 19 Feb, 2012 [facility] [address] [id number] [place] [address] 19 Feb, 2012 [facility] [address] [id number] [place] [address] 19 Feb, 2012 [facility] [address] [id number] [place] [address] 19 Feb, 2012 [facility] [address] [id number] [place] [address] 14 Feb, 2012 [facility] [address] [id number] [place] [address] 14 Feb, 2012 [facility] [address] [id number] [place] [address] 13 Feb, 2012 [facility] [address] [id number] [place] [address] 13 Feb, 2012 [facility] [address] [id number] [place] [address] 12 Feb, 2012 [facility] [address] [id number] [place] [address] 12 Feb, 2012 [facility] [address] [id number] [place] [address] 12 Feb, 2012 [facility] [place] [facility] [address] [id number] [place] [address] Feb, [facility] [address] [id number] [place] [address] 12 Feb, 2012 [facility] [address] [id number] [place] [address] Feb, [facility] [place] [facility] [address] [id number] [place] [address] Feb, [facility] [place] [facility] [address] [id number] [place] [address] Feb, [facility] [place] [facility] [address] [id number] [place] [address] Feb, [facility] [place] [facility] [address] [id number] [place] [address] Feb, [facility] [place] [facility] [address] [id number] [place] [address] Feb, [facility] [place] [facility] [address] [id number] [place] [address] Feb, [facility] [place] [facility] [address] [id number] [place] [address] Feb, [facility] [place] [facility] [address] [id number] [place] [address] Feb, [facility] [place] [facility] [address] [id number] [place] [address] Jan, [facility] [place] [facility] [address] [facility] [id number], [place] [address] Jan, [facility] [place] [facility] [address] [facility] [id number], [place] [address] Dec, [facility] [place] [facility] [address] [id number], [place] [address] Dec, [facility] [place] [facility] [address] [id number], [place] [address] Dec, [facility] [place] [facility] [address] [id number], [place] [address] Dec, [facility] [place] [facility] [address] [facility] [id number], [place] [address] Nov, [facility] [place] [facility] [address] [id number], [place] [address] 12 Nov, 2011 [facility] [place] [facility] [address] [id number] [place] [address] 06 Nov, 2011 [facility] [place] [facility] [address] [id number] [place] [address] Nov, [facility] [place] [facility] [address] [id number] [place] [address] Oct, [facility] [place] [facility] [address] [id number] [place] [address] Oct, [facility] [place] [facility] [address] [id number] [place] [address] Sep, [facility] [place] [facility] [address] [id number] [place] [address] Sep, [facility] [address] [id number] [place] [address] Sep, [facility] [place] [facility] [address] [id number] [place] [address] Aug, [facility] [place] [facility] [address] [id number] [place] [address] Aug, [facility] [place] [facility] [address] [id number] [place] [address] Aug, [facility] [place] [facility] [address] [id number] [place] [address] Aug, [facility] [place] [facility] [address] [id number] [place] [address] Aug, [facility] [place] [facility] [address] [id number] [place] [address] July, [facility] [place] [facility] [address] [id number] [place] [address] July, [facility] [place] [facility] [address] [id number] [place] [address] July, [facility] [place] [facility] [address] [id number] [place] [address] July, [facility] [place] [facility] [address] [id number] [place] [address] July, [facility] [place] [facility] [address] [id number] [place] [address] Jun, [facility] [place] [facility] [address] [id number] [place] [address] May, [facility] [place] [facility] [address] [id number] [place] [address] Apr, [facility] [place] [facility] [address] [id number] [place] [address] Apr, [facility] [place] [facility] [address] [id number] [place] [address] Apr, [facility] [place] [facility] [address] [id number] [place] [address] Mar, [facility] [place] [facility] [address] [id number] [place] [address] Mar, [facility] [place] [facility] [address] [id number] [place] [address] Mar, [facility] [place] [facility] [address] [id number] [place] [address] Mar, [facility] [place] [facility] [address] [id number] [place] [address] Mar, [facility] [place] [facility] [address] [id number] [place] [address] 17 Mar, 2011 [facility] [place] [facility] [address] [id number] [place] [address] Mar, [facility] [place] [facility] [address] [id number] [place] [address] Mar, [facility] [place] [facility] [address] [id number] [place] [address] Feb, [facility] [place] [facility] [address] [id number] [place] [address] Feb, [facility] [place] [facility] [address] [id number] [place] [address] Feb, [facility] [place] [facility] [address] [id number] [place] [address] Feb, [facility] [place] [facility] [address] [id number] [place] [address] Feb, [facility] [place] [facility] [address] [id number] [place] [address] Jan, [facility] [place] [facility] [address] [id number] [place] [address] Jan, [facility] [place] [facility] [address] [id number] [place] [address] Jan, [facility] [place] [facility] [address] [id number] [place] [address] Jan, [facility] [place] [facility] [address] [id number] [place] [address] Dec, [facility] [place] [facility] [address] [id number] [place] [address] Dec, [facility] [place] [facility] [address] [id number], [place] [address] Sep, [facility] [place] [facility] [address] [id number] [place] [address] July, [facility] [place] [facility] [address] [id number] [place] [address] Apr, [facility] [place] [facility] [address] [id number] [place] [address] Mar, [facility] [place] [facility] [address] [id number] [place] [address] Feb, [facility] [place] [facility] [address] [id number] [address] Feb, [facility] [address] [id number] [address] Feb, [facility] [id number], [place] [address] Feb, [facility] [address] [id number], [place] [address] Feb, [facility] [id number], [place] [address] Feb, [facility] [id number], [place] [address] Feb, [facility] [id number], [place] [address] Dec, [facility] [facility] [id number], [place] [address] Jan, [facility] [id number], [place] [address] Apr, IMMUNIZATIONS No Known Immunizations SOCIAL HISTORY Never Assessed REASON FOR VISIT Hospital admit/DC PLAN OF CARE VITAL SIGNS MEDICATIONS Unknown [...] Hospitalization History Hyperglycemia 2012 Hospitalization History [facility] 11/28/2015-12/04/20152015 Hospitalization History Schizophrenia 09/26/16 Hospitalization History AMS, UTI, hyponatremia-[facility] 10/21/16 Hospitalization History stent placed 02/02/17 Hospitalization History stent placed 02/2017
--- OUTSIDE RECORDS SUMMARY | 2018-09-05 13:01 | XMS REPORT ---
Author Author WOOD CALDERON Organization [facility] Address [address] [place] [address] Care Team Providers Care Telecom Assistant Name Role Phone WOOD CALDERON Unavailable PROBLEMS Type Condition ICD9-CM Code EHE60-DB Code Onset Dates Condition Status SNOMED Code Problem Coronary artery disease involving [place] coronary artery of [place] heart without angina pectoris I25.10 Active 8697082979629 Problem Bipolar affective disorder, current episode mixed, current episode severity unspecified F31.60 Active 546735585 Problem CVA (cerebral vascular accident) I63.9 Active 402982886 Problem Pacemaker Z95.0 Active 866614493 Problem Psychosis, unspecified psychosis type F29 Active 73933443 Problem Diabetes E11.9 Active 60292569 ALLERGIES No Information ENCOUNTERS Encounter Location Date Diagnosis [place] [address] [address] Aug, [place] [address] [address] July, [place] [address] [address] Jun, Dehydration E86.0 ; Diabetes E11.9 and Hyperglycemia R73.9 [place] [address] [address] Jun, [place] [address] [address] Jun, Vertigo R42 ; Syncope, unspecified syncope type R55 ; Diabetes E11.9 and Hyperglycemia R73.9 [place] [address] [address] May, Psychosis, unspecified psychosis type F29 and Bipolar affective disorder, current episode mixed, current episode severity unspecified F31.60 [facility] [id number] [place] [address] May, [facility] [address] [place] [id number] [place] [address] May, Diabetes E11.9 [facility] [address] [id number] Apr, Dental examination Z01.20 and Dental caries K02.9 [facility] [address] [place] [id number] [place] [address] Apr, Dental examination Z01.20 and Dental abscess K04.7 [place] [address] [place] [id number] [place] [address] Mar, Psychosis, unspecified psychosis type F29 and Bipolar affective disorder, current episode mixed, current episode severity unspecified F31.60 [facility] [address] [place] [id number] [place] [address] Mar, [facility] [address] [id number] [place] [address] Feb, [place] [address] [place] [id number] [place] [address] Feb, Left wrist pain M25.532 [place] [address] [place] [address] [place] [address] Jan, [facility] [address] [place] [address] [place] [address] Jan, Psychosis, unspecified psychosis type F29 and Bipolar affective disorder, current episode mixed, current episode severity unspecified F31.60 [facility] [address] [place] [id number] [place] [address] Jan, Diabetes E11.9 [facility] [address] [place] [address] 07 Jan, 2017 Left wrist pain M25.532 [facility] [address] [place] [address] Dec, Psychosis, unspecified psychosis type F29 and Bipolar affective disorder, current episode mixed, current episode severity unspecified F31.60 [facility] [address] [place] [address] [place] [address] Dec, Syncope, unspecified syncope type R55 ; Vertigo R42 ; Diabetes E11.9 ; Psychosis, unspecified psychosis type F29 and Fall, initial encounter W19.XXXA [facility] [address] [place] [address] [place] [address] Dec, Diabetes E11.9 ; Neck pain M54.2 and Vertigo R42 [facility] [address] [place] [id number] [place] [address] Nov, [facility] [address] [address] [place] [address] Nov, [facility] [address] [id number] [place] [address] Nov, [facility] [address] [place] [address] [place] [address] Nov, Diabetes E11.9 [facility] [address] [place] [address] [place] [address] Nov, Diabetes E11.9 [facility] [address] [place] [address] [place] [address] Oct, [facility] [address] [place] [id number] [place] [id number] Oct, [facility] [address] [place] [id number] [place] [address] Oct, [facility] [address] [place] [address] [place] [address] Oct, Bipolar affective disorder, current episode mixed, current episode severity unspecified F31.60 [facility] [address] [place] [address] [id number] [place] [id number] Sep, [facility] [address], [place] [address] Sep, Bipolar affective disorder, current episode mixed, current episode severity unspecified F31.60 [facility] [address], [place] [address] Sep, Acute maxillary sinusitis, recurrence not specified J01.00 [facility] [address] [place] [id number] [place] [address] Sep, Diabetes E11.9 [place] [address] [place] [address] [place] [address] July, Diabetes E11.9 [place] [address] [place] [address] [place] [address] July, Diabetes E11.9 [place] [address] [place] [address] [place] [address] Jun, [facility] [address] [place] [address] [place] [address] May, Bipolar affective disorder, current episode mixed, current episode severity unspecified F31.60 [facility] [address] [place] [address] May, Acute non-recurrent maxillary sinusitis J01.00 [facility] [address], [place] [address] 10 Apr, 2016 Psychosis, unspecified psychosis type F29 and Bipolar affective disorder, current episode mixed, current episode severity unspecified F31.60 [facility] [address] [place] [address] Apr, Dysuria R30.0 ; Other viral agents as the cause of diseases classified elsewhere B97.89 and Acute upper respiratory infection, unspecified J06.9 [facility] [address], [place] [address] Mar, Diabetes E11.9 ; Urine leukocytes R82.99 and Psychosis, unspecified psychosis type F29 [facility] [address] [place] [id number] [place] [address] Mar, Diabetes E11.9 [facility] [address] [place] [id number] [place] [address] Feb, [facility] [address] [place] [address] [place] [address] Jan, [facility] [address] [place] [address] [place] [address] Dec, Psychosis, unspecified psychosis type F29 [facility] [address] [place] [id number] [place] [address] Dec, [facility] [address] [place] [id number] [place] [address] Dec, [facility] [address] [place] [id number] [place] [address] Dec, Psychosis, unspecified psychosis type F29 [facility] [address] [place] [id number] [place] [address] Nov, Schizoaffective disorder, unspecified type F25.9 [facility] [address] [place] [id number] [place] [address] Oct, [facility] [address] [place] [id number] [place] [address] Oct, Conjunctivitis of right eye, unspecified conjunctivitis type H10.9 [facility] [address] [place] [address] Aug, [facility] [address] [place] [id number] [place] [id number] Jun, Encounter for dental examination Z01.20 [facility] [address] [place] [id number] [place] [address] Jun, Diabetes E11.9 and Bipolar affect, depressed F31.30 [facility] [address] [id number] [place] [address] Jun, Other bipolar disorder F31.89 [facility] [address] [id number] [place] [address] Jun, [facility] [address] [facility] [id number] [place] [address] Apr, [facility] [address] [id number] [place] [address] Dec, [facility] [address] [id number] [place] [address] Dec, [facility] [address] [facility] [id number] [place] [address] Sep, [facility] [address] [facility] [id number] [place] [address] Jun, [facility] [place] [facility] [address] [facility] [id number] [place] [address] Jun, [facility] [address] [facility] [id number] [place] [address] Mar, [facility] [address] [facility] [id number] [place] [address] Mar, [facility] [place] [facility] [address] [facility] [id number] [address] Nov, [facility] [place] [facility] [address] [id number], [place] [address] Nov, [facility] [place] [facility] [address] [id number] [place] [address] Sep, [facility] [place] [facility] [address] [facility] [id number] [place] [address] Sep, [facility] [place] [facility] [address] [facility] [id number] [place] [address] Sep, [facility] [place] [facility] [address] [facility] [id number] [place] [address] Sep, [facility] [place] [facility] [address] [id number] [place] [address] Sep, [facility] [place] [facility] [address] [id number] [place] [address] Aug, [facility] [place] [facility] [address] [id number] [place] [address] Aug, [facility] [place] [facility] [address] [id number] [place] [address] Aug, [facility] [place] [facility] [address] [id number] [place] [address] Aug, [facility] [place] [facility] [address] [id number] [place] [address] Aug, [facility] [place] [facility] [address] [id number] [place] [address] Aug, [facility] [place] [facility] [address] [id number] [place] [address] July, [facility] [place] [facility] [address] [id number] [place] [address] July, [facility] [place] [facility] [address] [id number] [place] [address] Jun, [facility] [place] [facility] [address] [id number] [place] [address] Jun, [facility] [place] [facility] [address] [id number] [place] [address] Jun, [facility] [place] [facility] [address] [id number] [place] [address] Jun, [facility] [place] [facility] [address] [id number] [place] [address] Jun, [facility] [place] [facility] [address] [id number] [place] [address] Jun, [facility] [place] [facility] [address] [id number] [place] [address] Jun, [facility] [place] [facility] [address] [id number] [place] [address] Jun, [facility] [place] [facility] [address] [id number] [place] [address] May, [facility] [place] [facility] [address] [id number] [place] [address] May, [facility] [place] [facility] [address] [id number] [place] [address] May, [facility] [place] [facility] [address] [id number] [place] [address] May, [facility] [place] [facility] [address] [id number] [place] [address] May, [facility] [place] [facility] [address] [id number] [place] [address] May, [facility] [place] [facility] [address] [id number] [place] [address] May, [facility] [place] [facility] [address] [id number] [place] [address] May, [facility] [place] [facility] [address] [id number] [place] [address] May, [facility] [place] [facility] [address] [id number] [place] [address] Apr, [facility] [place] [facility] [address] [id number] [place] [address] Apr, [facility] [place] [facility] [address] [id number] [place] [address] Mar, [facility] [place] [facility] [address] [id number] [place] [address] Mar, [facility] [place] [facility] [address] [id number] [place] [address] Feb, [facility] [address] [id number] [place] [address] Feb, [facility] [place] [facility] [address] [id number] [place] [address] Nov, [facility] [place] [facility] [address] [id number] [place] [address] Nov, [facility] [place] [facility] [address] [id number] [place] [address] Oct, [facility] [place] [facility] [address] [id number] [place] [address] Oct, [facility] [place] [facility] [address] [id number] [place] [address] Oct, [facility] [address] [id number] [place] [address] Oct, [facility] [place] [facility] [address] [id number] [place] [address] Oct, [facility] [place] [facility] [address] [id number] [place] [address] Sep, [facility] [place] [facility] [address] [id number] [place] [address] Sep, [facility] [place] [facility] [address] [id number] [place] [address] Sep, [facility] [place] [facility] [address] [id number] [place] [address] Sep, [facility] [place] [facility] [address] [id number] [place] [address] Aug, [facility] [place] [facility] [address] [id number] [place] [address] Aug, [facility] [place] [facility] [address] [id number] [place] [address] Aug, [facility] [place] [facility] [address] [id number] [place] [address] 07 Aug, 2012 [facility] [address] [id number] [place] [address] 19 Jun, 2012 [facility] [place] [facility] [address] [id number] [place] [address] 18 Jun, 2012 [facility] [place] [facility] [address] [id number] [place] [address] 17 Jun, 2012 [facility] [place] [facility] [address] [id number] [place] [address] 17 Jun, 2012 [facility] [address] [id number] [place] [address] May, [facility] [place] [facility] [address] [id number] [place] [address] 18 May, 2012 [facility] [place] [facility] [address] [id number] [place] [address] 18 May, 2012 [facility] [address] [id number] [place] [address] 13 May, 2012 [facility] [place] [facility] [address] [id number] [place] [address] 11 May, 2012 [facility] [address] [id number] [place] [address] 04 May, 2012 [facility] [place] [facility] [address] [id number] [place] [address] Apr, [facility] [place] [facility] [address] [id number] [place] [address] Apr, [facility] [place] [facility] [address] [id number] [place] [address] Apr, [facility] [place] [facility] [address] [id number] [place] [address] Apr, [facility] [place] [facility] [address] [id number] [place] [address] 19 Apr, 2012 [facility] [address] [id number] [place] [address] 20 Feb, 2012 [facility] [place] [facility] [address] [id number] [place] [address] 20 Feb, 2012 [facility] [place] [facility] [address] [id number] [place] [address] 19 Feb, 2012 [facility] [place] [facility] [address] [id number] [place] [address] 19 Feb, 2012 [facility] [address] [id number] [place] [address] 19 Feb, 2012 [facility] [place] [facility] [address] [id number] [place] [address] 19 Feb, 2012 [facility] [place] [facility] [address] [id number] [place] [address] 19 Feb, 2012 [facility] [place] [facility] [address] [id number] [place] [address] 19 Feb, 2012 [facility] [place] [facility] [address] [id number] [place] [address] 14 Feb, 2012 [facility] [place] [facility] [address] [id number] [place] [address] 14 Feb, 2012 [facility] [place] [facility] [address] [id number] [place] [address] 13 Feb, 2012 [facility] [place] [facility] [address] [id number] [place] [address] 13 Feb, 2012 [facility] [place] [facility] [address] [id number] [place] [address] 12 Feb, 2012 [facility] [place] [facility] [address] [id number] [place] [address] 12 Feb, 2012 [facility] [place] [facility] [address] [id number] [place] [address] 12 Feb, 2012 [facility] [place] [facility] [address] [id number] [place] [address] Feb, [facility] [address] [id number] [place] [address] Feb, [facility] [place] [facility] [address] [id number] [place] [address] Feb, [facility] [address] [id number] [place] [address] Feb, [facility] [place] [facility] [address] [id number] [place] [address] Feb, [facility] [address] [id number] [place] [address] Feb, [facility] [address] [id number] [place] [address] Feb, [facility] [address] [id number] [place] [address] Feb, [facility] [address] [id number] [place] [address] Feb, [facility] [place] [facility] [address] [id number] [place] [address] Feb, [facility] [address] [id number] [place] [address] Feb, [facility] [place] [facility] [address] [id number] [place] [address] Jan, [facility] [place] [facility] [address] [id number] [place] [address] Jan, [facility] [place] [facility] [address] [id number] [place] [address] Dec, [facility] [place] [facility] [address] [id number] [place] [address] Dec, [facility] [place] [facility] [address] [id number] [place] [address] Dec, [facility] [place] [facility] [address] [id number] [place] [address] 17 Dec, 2011 [facility] [place] [facility] [address] [id number] [place] [address] 26 Nov, 2011 [facility] [place] [facility] [address] [id number] [place] [address] 12 Nov, 2011 [facility] [place] [facility] [address] [id number] [place] [address] 06 Nov, 2011 [facility] [place] [facility] [address] [id number] [place] [address] 04 Nov, 2011 [facility] [place] [facility] [address] [id number] [place] [address] Oct, [facility] [place] [facility] [address] [id number] [place] [address] Oct, [facility] [place] [facility] [address] [id number] [place] [address] Sep, [facility] [place] [facility] [address] [id number] [place] [address] Sep, [facility] [place] [facility] [address] [id number], [place] [address] Sep, [facility] [place] [facility] [address] [id number] [place] [address] Aug, [facility] [place] [facility] [address] [id number], [place] [address] Aug, [facility] [place] [facility] [address] [id number] [place] [address] 14 Aug, 2011 [facility] [place] [facility] [address] [id number], [place] [address] 13 Aug, 2011 [facility] [place] [facility] [address] [id number], [place] [address] 13 Aug, 2011 [facility] [place] [facility] [address] [id number], [place] [address] July, [facility] [address] [id number] [place] [address] July, [facility] [address] [id number] [place] [address] July, [facility] [address] [id number] [place] [address] July, [facility] [address] [id number] [place] [address] July, [facility] [address] [id number] [place] [address] Jun, [facility] [address] [id number] [place] [address] May, [facility] [address] [id number] [place] [address] 16 Apr, 2011 [facility] [address] [id number] [place] [address] Apr, [facility] [address] [id number] [place] [address] Apr, [facility] [address] [id number] [place] [address] Mar, [facility] [address] [id number] [place] [address] Mar, [facility] [place] [facility] [address] [id number] [place] [address] Mar, [facility] [place] [facility] [address] [id number] [place] [address] Mar, [facility] [place] [facility] [address] [id number] [place] [address] Mar, [facility] [place] [facility] [address] [id number] [place] [address] Mar, [facility] [place] [facility] [address] [id number] [place] [address] Mar, [facility] [place] [facility] [address] [id number] [place] [address] Mar, [facility] [place] [facility] [address] [id number] [place] [address] Feb, [facility] [place] [facility] [address] [id number] [place] [address] Feb, [facility] [place] [facility] [address] [id number] [place] [address] Feb, [facility] [place] [facility] [address] [id number] [place] [address] Feb, [facility] [place] [facility] [address] [id number] [place] [address] Feb, [facility] [place] [facility] [address] [id number] [place] [address] Jan, [facility] [place] [facility] [address] [id number] [place] [address] Jan, [facility] [place] [facility] [address] [id number] [place] [address] Jan, [facility] [place] [facility] [address] [id number] [place] [address] Jan, [facility] [place] [facility] [address] [id number] [place] [address] Dec, [facility] [place] [facility] [address] [id number] [place] [address] Dec, [facility] [place] [facility] [address] [id number] [place] [address] Sep, [facility] [place] [facility] [address] [id number] [place] [address] July, [facility] [place] [facility] [address] [id number], [place] [address] Apr, [facility] [address] [facility] [id number], [place] [address] Mar, [facility] [address] [facility] [id number], [place] [address] Feb, [facility] [address] [facility] [id number], [place] [address] Feb, [facility] [address] [facility] [id number], [place] [address] Feb, [facility] [address] [facility] [id number], [place] [address] Feb, [facility] [address] [facility] [id number], [place] [address] Feb, [facility] [id number], [place] [address] Feb, [facility] [id number], [place] [address] Feb, [facility] [address] [id number], [place] [address] Dec, [facility] [id number], [place] [address] Jan, [facility] [address] [id number], [place] [address] Apr, IMMUNIZATIONS No Known Immunizations SOCIAL HISTORY Never Assessed REASON FOR VISIT Refill request PLAN OF CARE VITAL SIGNS MEDICATIONS Medication Instructions Dosage Frequency Start Date End Date Duration Status NovoLog Flexpen 100 UNIT/ML Subcutaneous 3 times a day Inject 5 Unit before meals 8h Oct, 30 days Active RESULTS No Results PROCEDURES [...] Hospitalization History Hyperglycemia 2012 Hospitalization History [facility] 11/28/2015-12/04/20152015 Hospitalization History Schizophrenia 09/26/16 Hospitalization History [facility], UTI, hyponatremia[facility] 10/21/16 Hospitalization History stent placed 02/02/17 Hospitalization History stent placed 02/2017 Hospitalization History [facility]- Syncope, Dehydration and Hypotension. 06/08/2017
--- OUTSIDE RECORDS SUMMARY | 2018-09-05 13:02 | XMS REPORT ---
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 Active 6067594946972 Problem Bipolar affective disorder, current episode mixed, current episode severity unspecified F31.60 Active 375501440 Problem CVA (cerebral vascular accident) I63.9 Active 668935523 Problem Pacemaker Z95.0 Active 933797352 Problem Psychosis, unspecified psychosis type F29 Active 79295072 Problem Diabetes E11.9 Active [id number] ALLERGIES No Information ENCOUNTERS Encounter Location Date Diagnosis [place] [id number] [address] July, [facility] [address] [address] Jun, [facility] [address] [place] [id number] [place] [address] Jun, [facility] [address] [address] Jun, Vertigo R42 ; Syncope, unspecified syncope type R55 ; Diabetes E11.9 and Hyperglycemia R73.9 [facility] [address] [address] May, Psychosis, unspecified psychosis type F29 and Bipolar affective disorder, current episode mixed, current episode severity unspecified F31.60 [facility] [address] [address] May, [facility] [id number] [place] [address] May, Diabetes E11.9 [facility] [id number] [place] [id number] Apr, Dental examination Z01.20 and Dental caries K02.9 [facility] [address] [place] [id number] [place] [address] Apr, Dental examination Z01.20 and Dental abscess K04.7 [facility] [address] [place] [id number] [place] [address] Mar, Psychosis, unspecified psychosis type F29 and Bipolar affective disorder, current episode mixed, current episode severity unspecified F31.60 [place] [address] [place] [id number] [place] [address] Mar, [place] [address] [place] [id number] [place] [address] Feb, [facility] [address] [place] [id number] [place] [address] Feb, Left wrist pain M25.532 [place] [address] [place] [id number] [place] [address] Jan, [facility] [address] [place] [id number] [place] [address] Jan, Psychosis, unspecified psychosis type F29 and Bipolar affective disorder, current episode mixed, current episode severity unspecified F31.60 [facility] [address] [id number] [place] [address] Jan, Diabetes E11.9 [facility] [address] [id number] [place] [address] 07 Jan, 2017 Left wrist pain M25.532 [facility] [address] [id number] [place] [address] Dec, Psychosis, unspecified psychosis type F29 and Bipolar affective disorder, current episode mixed, current episode severity unspecified F31.60 [facility] [address] [address] Dec, Syncope, unspecified syncope type R55 ; Vertigo R42 ; Diabetes E11.9 ; Psychosis, unspecified psychosis type F29 and Fall, initial encounter W19.XXXA [facility] [address] [address] Dec, Diabetes E11.9 ; Neck pain M54.2 and Vertigo R42 [facility] [address] [id number] [address] 13 Nov, 2016 [facility] [address] [id number] [place] [address] 08 Nov, 2016 [facility] [address] [id number] [place] [address] 08 Nov, 2016 [facility] [address] [place] [place] [id number] [place] [address] 06 Nov, 2016 Diabetes E11.9 [facility] [address] [place] [id number] [place] [address] 05 Nov, 2016 Diabetes E11.9 [facility] [address] [id number] [place] [address] Oct, [facility] [address] [place] [id number] [id number] Oct, [facility] [address] [address] Oct, [facility] [address] [address] Oct, Bipolar affective disorder, current episode mixed, current episode severity unspecified F31.60 [facility] [address] [id number] [id number] Sep, [facility] [address] [address] Sep, Bipolar affective disorder, current episode mixed, current episode severity unspecified F31.60 [facility] [address] [address] 10 Sep, 2016 Acute maxillary sinusitis, recurrence not specified J01.00 [facility] [address] [address] Sep, Diabetes E11.9 [facility] [address] [id number] [place] [address] July, Diabetes E11.9 [place] [address] [place] [id number] [place] [address] July, Diabetes E11.9 [place] [address] [place] [id number] [place] [address] Jun, [facility] [address] [place] [id number] [place] [address] May, Bipolar affective disorder, current episode mixed, current episode severity unspecified F31.60 [facility] [address] [address] May, Acute non-recurrent maxillary sinusitis J01.00 [facility] [id number] [place] [address] 10 Apr, 2016 Psychosis, unspecified psychosis type F29 and Bipolar affective disorder, current episode mixed, current episode severity unspecified F31.60 [facility] [address], [place] [address] Apr, Dysuria R30.0 ; Other viral agents as the cause of diseases classified elsewhere B97.89 and Acute upper respiratory infection, unspecified J06.9 [place] [address] [place] [id number] [place] [address] Mar, Diabetes E11.9 ; Urine leukocytes R82.99 and Psychosis, unspecified psychosis type F29 [facility] [id number] [place] [address] Mar, Diabetes E11.9 [facility] [address] [address] Feb, [facility] [address] [address] [id number] [place] [address] Jan, [facility] [address] [address] [id number] [place] [address] Dec, Psychosis, unspecified psychosis type F29 [facility] [address] [id number] [place] [address] Dec, [facility] [id number] [place] [address] Dec, [facility] [address] [address] [id number] [place] [address] Dec, Psychosis, unspecified psychosis type F29 [facility] [address] [id number] [place] [address] Nov, Schizoaffective disorder, unspecified type F25.9 [facility] [address] [place] [id number] [place] [address] Oct, [facility] [address] [id number] [place] [address] Oct, Conjunctivitis of right eye, unspecified conjunctivitis type H10.9 [facility] [address] [place] [id number] [place] [address] Aug, [facility] [id number] [place] [id number] Jun, Encounter for dental examination Z01.20 [facility] [address] [id number] [place] [address] Jun, Diabetes E11.9 and Bipolar affect, depressed F31.30 [facility] [id number] [place] [address] Jun, Other bipolar disorder F31.89 [facility] [address] [place] [address] 13 Jun, 2015 [facility] [address] [id number] [place] [address] Apr, [facility] [place] [facility] [address] [id number] [place] [address] Dec, [facility] [place] [facility] [address] [id number] [place] [address] Dec, [facility] [place] [facility] [address] [id number] [place] [address] Sep, [facility] [place] [facility] [address] [id number] [place] [address] Jun, [facility] [place] [facility] [address] [id number] [place] [address] Jun, [facility] [place] [facility] [address] [id number] [place] [address] Mar, [facility] [address] [id number] [place] [address] Mar, [facility] [place] [facility] [address] [id number] [place] [address] Nov, [facility] [place] [facility] [address] [id number] [place] [address] Nov, [facility] [place] [facility] [address] [id number] [place] [address] Sep, [facility] [place] [facility] [address] [id number] [place] [address] Sep, [facility] [place] [facility] [address] [id number] [place] [address] Sep, [facility] [place] [facility] [address] [id number] [place] [address] Sep, [facility] [place] [facility] [address] [id number] [place] [address] Sep, [facility] [place] [facility] [address] [id number] [place] [address] Aug, [facility] [place] [facility] [address] [id number] [place] [address] Aug, [facility] [place] [facility] [address] [id number] [place] [address] Aug, [facility] [place] [facility] [address] [id number] [place] [address] Aug, [facility] [place] [facility] [address] [id number] [place] [address] Aug, [facility] [place] [facility] [address] [id number] [place] [address] Aug, [facility] [place] [facility] [address] [id number] [place] [address] July, [facility] [place] [facility] [address] [id number] [place] [address] July, [facility] [place] [facility] [address] [id number] [place] [address] Jun, [facility] [place] [facility] [address] [id number] [place] [address] Jun, [facility] [place] [facility] [address] [id number] [place] [address] Jun, [facility] [place] [facility] [address] [id number] [place] [address] Jun, [facility] [place] [facility] [address] [id number] [place] [address] Jun, [facility] [place] [facility] [address] [id number] [place] [address] Jun, [facility] [place] [facility] [address] [id number] [place] [address] Jun, [facility] [place] [facility] [address] [id number] [place] [address] Jun, [facility] [address] [id number] [place] [address] May, [facility] [place] [facility] [address] [id number] [place] [address] May, [facility] [place] [facility] [address] [id number] [place] [address] May, [facility] [place] [facility] [address] [id number] [place] [address] May, [facility] [place] [facility] [address] [id number] [place] [address] May, [facility] [place] [facility] [address] [id number] [place] [address] May, [facility] [place] [facility] [address] [id number] [place] [address] May, [facility] [place] [facility] [address] [id number] [place] [address] May, [facility] [place] [facility] [address] [id number] [place] [address] May, [facility] [place] [facility] [address] [id number] [place] [address] Apr, [facility] [place] [facility] [address] [id number] [place] [address] Apr, [facility] [place] [facility] [address] [id number] [place] [address] Mar, [facility] [place] [facility] [address] [id number] [place] [address] Mar, [facility] [place] [facility] [address] [id number] [place] [address] Feb, [facility] [place] [facility] [address] [id number] [place] [address] Feb, [facility] [place] [facility] [address] [id number] [place] [address] Nov, [facility] [place] [facility] [address] [id number] [place] [address] Nov, [facility] [place] [facility] [address] [id number] [place] [address] Oct, [facility] [place] [facility] [address] [id number] [place] [address] Oct, [facility] [place] [facility] [address] [id number] [place] [address] Oct, [facility] [place] [facility] [address] [id number] [place] [address] Oct, [facility] [place] [facility] [address] [id number] [place] [address] Oct, [facility] [place] [facility] [address] [id number] [place] [address] Sep, [facility] [place] [facility] [address] [id number] [place] [address] Sep, [facility] [place] [facility] [address] [id number] [place] [address] Sep, [facility] [place] [facility] [address] [id number] [place] [address] Sep, [facility] [place] [facility] [address] [id number] [place] [address] Aug, [facility] [place] [facility] [address] [id number] [place] [address] Aug, [facility] [place] [facility] [address] [id number] [place] [address] Aug, [facility] [place] [facility] [address] [id number] [place] [address] Aug, [facility] [place] [facility] [address] [id number], [place] [address] 19 Jun, 2012 [facility] [address] [id number] [place] [address] 18 Jun, 2012 [facility] [address] [id number] [place] [address] 17 Jun, 2012 [facility] [address] [facility] [id number] [place] [address] 17 Jun, 2012 [facility] [address] [id number], [place] [address] 21 May, 2012 [facility] [address] [id number] [place] [address] 18 May, 2012 [facility] [address] [facility] [id number] [place] [address] 18 May, 2012 [facility] [address] [facility] [id number] [place] [address] 13 May, 2012 [facility] [address] [id number], [place] [address] 11 May, 2012 [facility] [address] [facility] [id number] [place] [address] 04 May, 2012 [facility] [address] [facility] [id number], [place] [address] 21 Apr, 2012 [facility] [address] [id number], [place] [address] 20 Apr, 2012 [facility] [place] [facility] [address] [id number], [place] [address] Apr, [facility] [place] [facility] [address] [id number] [place] [address] Apr, [facility] [place] [facility] [address] [facility] [id number], [place] [address] Apr, [facility] [place] [facility] [address] [facility] [id number] [place] [address] Feb, [facility] [place] [facility] [address] [id number] [place] [address] 20 Feb, 2012 [facility] [place] [facility] [address] [id number] [place] [address] 19 Feb, 2012 [facility] [place] [facility] [address] [id number] [place] [address] 19 Feb, 2012 [facility] [place] [facility] [address] [id number] [place] [address] 19 Feb, 2012 [facility] [place] [facility] [address] [id number] [place] [address] 19 Feb, 2012 [facility] [place] [facility] [address] [id number] [place] [address] 19 Feb, 2012 [facility] [place] [facility] [address] [id number] [place] [address] 19 Feb, 2012 [facility] [place] [facility] [address] [id number] [place] [address] 14 Feb, 2012 [facility] [place] [facility] [address] [id number] [place] [address] 14 Feb, 2012 [facility] [place] [facility] [address] [id number] [place] [address] 13 Feb, 2012 [facility] [place] [facility] [address] [id number] [place] [address] 13 Feb, 2012 [facility] [place] [facility] [address] [id number] [place] [address] 12 Feb, 2012 [facility] [place] [facility] [address] [id number] [place] [address] 12 Feb, 2012 [facility] [place] [facility] [address] [id number] [place] [address] 12 Feb, 2012 [facility] [place] [facility] [address] [id number] [place] [address] 12 Feb, 2012 [facility] [place] [facility] [address] [id number] [place] [address] Feb, [facility] [place] [facility] [address] [id number] [place] [address] Feb, [facility] [place] [facility] [address] [id number] [place] [address] Feb, [facility] [place] [facility] [address] [facility] [id number] [place] [address] Feb, [facility] [place] [facility] [address] [id number] [place] [address] Feb, [facility] [place] [facility] [address] [id number] [place] [address] Feb, [facility] [place] [facility] [address] [id number] [place] [address] Feb, [facility] [place] [facility] [address] [facility] [id number] [place] [address] Feb, [facility] [place] [facility] [address] [id number], [place] [address] Feb, [facility] [place] [facility] [address] [id number] [place] [address] Feb, [facility] [place] [facility] [address] [facility] [id number], [place] [address] Jan, [facility] [place] [facility] [address] [id number], [place] [address] Jan, [facility] [place] [facility] [address] [id number], [place] [address] Dec, [facility] [place] [facility] [address] [id number], [place] [address] Dec, [facility] [place] [facility] [address] [id number], [place] [address] Dec, [facility] [place] [facility] [address] [facility] [id number], [place] [address] Dec, [facility] [place] [facility] [address] [id number] [place] [address] 26 Nov, 2011 [facility] [place] [facility] [address] [id number] [place] [address] 12 Nov, 2011 [facility] [place] [facility] [address] [id number] [place] [address] 06 Nov, 2011 [facility] [place] [facility] [address] [id number] [place] [address] 04 Nov, 2011 [facility] [place] [facility] [address] [id number] [place] [address] Oct, [facility] [place] [facility] [address] [id number] [place] [address] Oct, [facility] [place] [facility] [address] [id number] [place] [address] 24 Sep, 2011 [facility] [place] [facility] [address] [id number] [place] [address] 17 Sep, 2011 [facility] [place] [facility] [address] [id number] [place] [address] Sep, [facility] [place] [facility] [address] [id number] [place] [address] Aug, [facility] [place] [facility] [address] [id number] [place] [address] Aug, [facility] [place] [facility] [address] [id number] [place] [address] 14 Aug, 2011 [facility] [place] [facility] [address] [id number] [place] [address] Aug, [facility] [place] [facility] [address] [id number] [place] [address] Aug, [facility] [place] [facility] [address] [id number] [place] [address] July, [facility] [place] [facility] [address] [id number] [place] [address] July, [facility] [place] [facility] [address] [id number] [place] [address] July, [facility] [place] [facility] [address] [id number] [place] [address] July, [facility] [place] [facility] [address] [id number] [place] [address] July, [facility] [place] [facility] [address] [id number] [place] [address] Jun, [facility] [address] [id number] [place] [address] May, [facility] [place] [facility] [address] [id number] [place] [address] 16 Apr, 2011 [facility] [address] [id number] [place] [address] Apr, [facility] [place] [facility] [address] [id number] [place] [address] Apr, [facility] [place] [facility] [address] [id number] [place] [address] Mar, [facility] [place] [facility] [address] [id number] [place] [address] Mar, [facility] [place] [facility] [address] [id number] [place] [address] Mar, [facility] [place] [facility] [address] [id number] [place] [address] Mar, [facility] [place] [facility] [address] [id number] [place] [address] Mar, [facility] [place] [facility] [address] [id number] [place] [address] Mar, [facility] [place] [facility] [address] [id number] [place] [address] Mar, [facility] [place] [facility] [address] [id number], [place] [address] Mar, [facility] [place] [facility] [address] [id number] [place] [address] Feb, [facility] [place] [facility] [address] [id number] [place] [address] Feb, [facility] [place] [facility] [address] [id number] [place] [address] Feb, [facility] [place] [facility] [address] [id number] [place] [address] Feb, [facility] [place] [facility] [address] [id number] [place] [address] Feb, [facility] [place] [facility] [address] [id number] [place] [address] Jan, [facility] [place] [facility] [address] [facility] [place] [id number] [place] [address] Jan, [facility] [place] [facility] [address] [id number] [place] [address] Jan, [facility] [place] [facility] [address] [facility] [place] [id number] [place] [address] Jan, [facility] [place] [facility] [address] [facility] [place] [id number] [place] [address] Dec, [facility] [place] [facility] [address] [id number], [place] [address] Dec, [facility] [place] [facility] [address] [id number], [place] [address] Sep, [facility] [place] [facility] [address] [id number] [place] [address] July, [facility] [place] [facility] [address] [id number] [place] [address] Apr, [facility] [place] [facility] [address] [facility] [place] [id number] [place] [address] Mar, [facility] [place] [facility] [address] [id number], [place] [address] Feb, [facility] [address] [id number], [place] [address] Feb, [facility] [id number], [place] [address] Feb, [facility] [address] [id number], [place] [address] Feb, [facility] [id number], [place] [address] Feb, [facility] [id number], [place] [address] Feb, [facility] [id number], [place] [address] Feb, [facility] [id number], [place] [address] Dec, [facility] [address] [id number], [place] [address] Jan, [facility] [address] [id number], [place] [address] Apr, IMMUNIZATIONS No Known Immunizations SOCIAL HISTORY Never Assessed REASON FOR VISIT Medication question PLAN OF CARE VITAL SIGNS MEDICATIONS Medication Instructions Dosage Frequency Start Date End Date Duration Status Latuda 60 MG Orally Once a day 1 tablet with evening meal @ 5PM 24h Oct, 07 days Active RESULTS No Results PROCEDURES No [...] Surgery Hospitalization History Hyperglycemia 2012 Hospitalization History [facility] 11/28/2015-12/04/20152015 Hospitalization History Schizophrenia 09/26/16 Hospitalization History AMS, UTI, hyponatremia-[facility] 10/21/16 Hospitalization History stent placed 02/02/17 Hospitalization History stent placed 02/2017 Hospitalization History [facility]- Syncope, Dehydration and Hypotension. 06/08/2017
--- OUTSIDE RECORDS SUMMARY | 2018-09-05 13:02 | XMS REPORT ---
Author Author CARLITA WAITE Organization [facility] Address [address] [place] [address] Care Team Providers Care Bruise Trimmer Name Role Phone CARLITA WAITE Unavailable PROBLEMS Type Condition ICD9-CM Code [id number] Code Onset Dates Condition Status SNOMED Code Problem Coronary artery disease involving [place] coronary artery of [place] heart without angina pectoris I25.10 Active 6295544212932 Problem Bipolar affective disorder, current episode mixed, current episode severity unspecified F31.60 Active 894167359 Problem CVA (cerebral vascular accident) I63.9 Active 317136211 Problem Pacemaker Z95.0 Active 474165226 Problem Psychosis, unspecified psychosis type F29 Active 58011029 Problem Diabetes E11.9 Active 34830381 ALLERGIES Substance Reaction Event Type Date Status Codeine Sulfate Unknown Drug Allergy Dec, Active Marianna Unknown Non Drug Allergy Dec, Active Tejeda Unknown Non Drug Allergy Dec, Active Pork Unknown Non Drug Allergy Dec, Active Yeast Unknown Non Drug Allergy Dec, Active Chromo Unknown Non Drug Allergy Dec, Active ENCOUNTERS Encounter Location Date Diagnosis [place] [id number] [address] Aug, [place] [id number] [place] [phone] July, [place] [id number] [place] [phone] Jun, Dehydration E86.0 ; Diabetes E11.9 and Hyperglycemia R73.9 [facility] [id number] [place] [address] Jun, [facility] [id number] [place] [phone] Jun, Vertigo R42 ; Syncope, unspecified syncope type R55 ; Diabetes E11.9 and Hyperglycemia R73.9 [facility] [id number] [place] [phone] May, Psychosis, unspecified psychosis type F29 and Bipolar affective disorder, current episode mixed, current episode severity unspecified F31.60 [facility] [id number] [place] [phone] May, [place] [address] [address] May, Diabetes E11.9 [facility] [id number] [place] [id number] Apr, Dental examination Z01.20 and Dental caries K02.9 [place] [id number] [place] [phone] Apr, Dental examination Z01.20 and Dental abscess K04.7 [place] [id number] [place] [address] Mar, Psychosis, unspecified psychosis type F29 and Bipolar affective disorder, current episode mixed, current episode severity unspecified F31.60 [place] [address] [id number] [place] [phone] Mar, [place] [address] [id number] [place] [phone] Feb, [place] [id number] [place] [address] Feb, Left wrist pain M25.532 [place] [address] [id number] [place] [address] Jan, [place] [address] [id number] [place] [phone] Jan, Psychosis, unspecified psychosis type F29 and Bipolar affective disorder, current episode mixed, current episode severity unspecified F31.60 [place] [address] [id number] [place] [address] Jan, Diabetes E11.9 [facility] [id number] [place] [address] Jan, Left wrist pain M25.532 [facility] [id number] [place] [address] Dec, Psychosis, unspecified psychosis type F29 and Bipolar affective disorder, current episode mixed, current episode severity unspecified F31.60 [facility] [id number] [place] [address] Dec, Syncope, unspecified syncope type R55 ; Vertigo R42 ; Diabetes E11.9 ; Psychosis, unspecified psychosis type F29 and Fall, initial encounter W19.XXXA [facility] [id number] [place] [address] Dec, Diabetes E11.9 ; Neck pain M54.2 and Vertigo R42 [facility] [id number] [place] [phone] Nov, [facility] [id number] [place] [phone] Nov, [facility] [id number] [place] [phone] Nov, [facility] [id number] [place] [phone] Nov, Diabetes E11.9 [facility] [id number] [place] [phone] 05 Nov, 2016 Diabetes E11.9 [facility] [id number] [place] [phone] Oct, [facility] [address] [id number] Oct, [facility] [id number] [place] [phone] Oct, [facility] [address], [place] [address] Oct, Bipolar affective disorder, current episode mixed, current episode severity unspecified F31.60 [facility] [address] [id number] [id number] Sep, [facility] [address], [place] [address] Sep, Acute maxillary sinusitis, recurrence not specified J01.00 [facility] [id number] [place] [address] Sep, Bipolar affective disorder, current episode mixed, current episode severity unspecified F31.60 [place] [address] [id number] [place] [address] Sep, Diabetes E11.9 [place] [address] [place] [id number] [place] [address] July, Diabetes E11.9 [facility] [id number] [place] [address] July, Diabetes E11.9 [facility] [id number] [place] [address] Jun, [facility] [address], [place] [address] May, Bipolar affective disorder, current episode mixed, current episode severity unspecified F31.60 [facility] [address], [place] [address] May, Acute non-recurrent maxillary sinusitis J01.00 [facility] [address], [place] [address] 10 Apr, 2016 Psychosis, unspecified psychosis type F29 and Bipolar affective disorder, current episode mixed, current episode severity unspecified F31.60 [facility] [address], [place] [address] 03 Apr, 2016 Dysuria R30.0 ; Other viral agents as the cause of diseases classified elsewhere B97.89 and Acute upper respiratory infection, unspecified J06.9 [place] [address] [place] [id number] [place] [address] Mar, Diabetes E11.9 ; Urine leukocytes R82.99 and Psychosis, unspecified psychosis type F29 [facility] [id number] [place] [address] Mar, Diabetes E11.9 [facility] [id number] [place] [phone] Feb, [place] [address] [place] [address] [id number] [place] [phone] Jan, [facility] [id number] [place] [phone] Dec, Psychosis, unspecified psychosis type F29 [facility] [id number] [place] [phone] Dec, [facility] [id number] [place] [phone] Dec, [facility] [id number] [place] [phone] Dec, Psychosis, unspecified psychosis type F29 [facility] [id number] [place] [address] Nov, Schizoaffective disorder, unspecified type F25.9 [facility] [id number] [place] [address] Oct, [facility] [id number] [place] [address] Oct, Conjunctivitis of right eye, unspecified conjunctivitis type H10.9 [facility] [id number] [place] [address] Aug, [facility] [id number] [place] [id number] Jun, Encounter for dental examination Z01.20 [facility] [id number] [address] Jun, Diabetes E11.9 and Bipolar affect, depressed F31.30 [facility] [id number] [address] Jun, Other bipolar disorder F31.89 [facility] [id number] [place] [phone] Jun, [facility] [id number] [place] [address] Apr, [facility] [id number] [place] [phone] Dec, [facility] [id number] [place] [address] Dec, [facility] [id number] [place] [phone] Sep, [facility] [id number] [place] [phone] Jun, [facility] [id number] [place] [phone] Jun, [facility] [address] [address] Mar, [facility] [address] [address] Mar, [facility] [address] [address] Nov, [facility] [id number] [place] [phone] Nov, [facility] [address], [place] [address] Sep, [facility] [id number] [place] [address] Sep, [facility] [place] [facility] [address] [id number] [place] [address] Sep, [facility] [place] [facility] [address] [id number] [place] [address] Sep, [facility] [place] [facility] [address] [id number] [place] [address] Sep, [facility] [place] [facility] [address] [id number] [place] [address] Aug, [facility] [place] [facility] [address] [id number] [place] [address] Aug, [facility] [place] [facility] [address] [id number] [place] [address] Aug, [facility] [place] [facility] [address] [id number] [place] [address] Aug, [facility] [place] [facility] [address] [id number] [place] [address] Aug, [facility] [place] [facility] [address] [id number] [place] [address] Aug, [facility] [place] [facility] [address] [id number] [place] [address] July, [facility] [place] [facility] [address] [id number] [place] [address] July, [facility] [place] [facility] [address] [id number] [place] [address] Jun, [facility] [place] [facility] [address] [id number] [place] [address] Jun, [facility] [place] [facility] [address] [id number] [place] [address] Jun, [facility] [place] [facility] [address] [id number] [place] [address] Jun, [facility] [place] [facility] [address] [id number] [place] [address] Jun, [facility] [place] [facility] [address] [id number] [place] [address] Jun, [facility] [place] [facility] [address] [id number] [place] [address] Jun, [facility] [place] [facility] [address] [id number] [place] [address] Jun, [facility] [place] [facility] [address] [id number] [place] [address] May, [facility] [place] [facility] [address] [id number] [place] [address] May, [facility] [place] [facility] [address] [id number] [place] [address] May, [facility] [place] [facility] [address] [id number] [place] [address] May, [facility] [place] [facility] [address] [id number] [place] [address] May, [facility] [place] [facility] [address] [id number] [place] [address] May, [facility] [place] [facility] [address] [id number] [place] [address] May, [facility] [place] [facility] [address] [id number] [place] [address] May, [facility] [place] [facility] [address] [id number] [place] [address] May, [facility] [place] [facility] [address] [id number] [place] [address] Apr, [facility] [place] [facility] [address] [id number] [place] [address] Apr, [facility] [place] [facility] [address] [id number] [place] [address] Mar, [facility] [address] [id number] [place] [address] Mar, [facility] [place] [facility] [address] [id number] [place] [address] Feb, [facility] [place] [facility] [address] [id number] [place] [address] Feb, [facility] [place] [facility] [address] [id number] [place] [address] Nov, [facility] [place] [facility] [address] [id number] [place] [address] Nov, [facility] [place] [facility] [address] [id number] [place] [address] Oct, [facility] [place] [facility] [address] [id number] [place] [address] Oct, [facility] [place] [facility] [address] [id number] [place] [address] Oct, [facility] [place] [facility] [address] [id number] [place] [address] Oct, [facility] [place] [facility] [address] [id number] [place] [address] Oct, [facility] [place] [facility] [address] [id number] [place] [address] Sep, [facility] [place] [facility] [address] [id number] [place] [address] Sep, [facility] [place] [facility] [address] [id number] [place] [address] Sep, [facility] [place] [facility] [address] [id number] [place] [address] Sep, [facility] [place] [facility] [address] [id number] [place] [address] Aug, [facility] [place] [facility] [address] [id number] [place] [address] 17 Aug, 2012 [facility] [address] [id number] [place] [address] 10 Aug, 2012 [facility] [place] [facility] [address] [id number] [place] [address] 07 Aug, 2012 [facility] [address] [id number] [place] [address] 19 Jun, 2012 [facility] [place] [facility] [address] [id number] [place] [address] 18 Jun, 2012 [facility] [address] [id number] [place] [address] 17 Jun, 2012 [facility] [address] [id number] [place] [address] 17 Jun, 2012 [facility] [address] [id number] [place] [address] 21 May, 2012 [facility] [address] [id number] [place] [address] 18 May, 2012 [facility] [address] [id number] [place] [address] 18 May, 2012 [facility] [address] [id number] [place] [address] 13 May, 2012 [facility] [place] [facility] [address] [id number] [place] [address] 11 May, 2012 [facility] [place] [facility] [address] [id number] [place] [address] 04 May, 2012 [facility] [place] [facility] [address] [id number] [place] [address] 21 Apr, 2012 [facility] [place] [facility] [address] [id number] [place] [address] 20 Apr, 2012 [facility] [place] [facility] [address] [id number] [place] [address] 19 Apr, 2012 [facility] [place] [facility] [address] [id number] [place] [address] 19 Apr, 2012 [facility] [place] [facility] [address] [id number] [place] [address] 19 Apr, 2012 [facility] [place] [facility] [address] [facility] [id number] [place] [address] 20 Feb, 2012 [facility] [place] [facility] [address] [id number] [place] [address] 20 Feb, 2012 [facility] [place] [facility] [address] [id number] [place] [address] 19 Feb, 2012 [facility] [place] [facility] [address] [id number] [place] [address] 19 Feb, 2012 [facility] [place] [facility] [address] [id number] [place] [address] 19 Feb, 2012 [facility] [place] [facility] [address] [id number] [place] [address] 19 Feb, 2012 [facility] [place] [facility] [address] [id number] [place] [address] 19 Feb, 2012 [facility] [place] [facility] [address] [id number] [place] [address] 19 Feb, 2012 [facility] [place] [facility] [address] [id number] [place] [address] 14 Feb, 2012 [facility] [place] [facility] [address] [id number] [place] [address] 14 Feb, 2012 [facility] [place] [facility] [address] [id number] [place] [address] 13 Feb, 2012 [facility] [place] [facility] [address] [facility] [id number] [place] [address] 13 Feb, 2012 [facility] [place] [facility] [address] [facility] [id number] [place] [address] 12 Feb, 2012 [facility] [place] [facility] [address] [id number] [place] [address] Feb, [facility] [address] [id number] [place] [address] Feb, [facility] [address] [id number] [place] [address] Feb, [facility] [address] [id number] [place] [address] Feb, [facility] [address] [id number] [place] [address] Feb, [facility] [address] [id number] [place] [address] Feb, [facility] [address] [id number] [place] [address] Feb, [facility] [address] [id number] [place] [address] Feb, [facility] [address] [id number] [place] [address] Feb, [facility] [place] [facility] [address] [id number] [place] [address] Feb, [facility] [address] [id number] [place] [address] Feb, [facility] [place] [facility] [address] [id number] [place] [address] Feb, [facility] [address] [id number] [place] [address] Feb, [facility] [place] [facility] [address] [id number] [place] [address] Jan, [facility] [place] [facility] [address] [id number] [place] [address] Jan, [facility] [place] [facility] [address] [id number] [place] [address] Dec, [facility] [place] [facility] [address] [id number] [place] [address] Dec, [facility] [place] [facility] [address] [id number] [place] [address] Dec, [facility] [place] [facility] [address] [id number] [place] [address] Dec, [facility] [place] [facility] [address] [id number] [place] [address] Nov, [facility] [place] [facility] [address] [id number] [place] [address] Nov, [facility] [place] [facility] [address] [id number] [place] [address] Nov, [facility] [place] [facility] [address] [id number] [place] [address] Nov, [facility] [place] [facility] [address] [id number] [place] [address] Oct, [facility] [place] [facility] [address] [id number] [place] [address] Oct, [facility] [place] [facility] [address] [id number] [place] [address] Sep, [facility] [place] [facility] [address] [id number] [place] [address] Sep, [facility] [place] [facility] [address] [id number], [place] [address] Sep, [facility] [place] [facility] [address] [id number] [place] [address] Aug, [facility] [place] [facility] [address] [id number] [place] [address] Aug, [facility] [place] [facility] [address] [id number], [place] [address] Aug, [facility] [place] [facility] [address] [id number], [place] [address] Aug, [facility] [address] [id number] [place] [address] Aug, [facility] [address] [id number] [place] [address] July, [facility] [address] [id number] [place] [address] July, [facility] [address] [id number] [place] [address] July, [facility] [address] [id number] [place] [address] July, [facility] [address] [id number] [place] [address] July, [facility] [address] [id number] [place] [address] Jun, [facility] [address] [id number] [place] [address] May, [facility] [address] [id number] [place] [address] 16 Apr, 2011 [facility] [address] [id number] [place] [address] Apr, [facility] [address] [id number] [place] [address] Apr, [facility] [place] [facility] [address] [id number] [place] [address] Mar, [facility] [place] [facility] [address] [id number] [place] [address] Mar, [facility] [place] [facility] [address] [id number] [place] [address] Mar, [facility] [place] [facility] [address] [id number] [place] [address] Mar, [facility] [place] [facility] [address] [id number] [place] [address] Mar, [facility] [place] [facility] [address] [id number] [place] [address] Mar, [facility] [place] [facility] [address] [id number] [place] [address] 16 Mar, 2011 [facility] [place] [facility] [address] [id number] [place] [address] Mar, [facility] [place] [facility] [address] [id number] [place] [address] Feb, [facility] [place] [facility] [address] [id number] [place] [address] Feb, [facility] [place] [facility] [address] [id number] [place] [address] Feb, [facility] [place] [facility] [address] [id number] [place] [address] Feb, [facility] [place] [facility] [address] [id number] [place] [address] Feb, [facility] [place] [facility] [address] [id number] [place] [address] Jan, [facility] [place] [facility] [address] [id number] [place] [address] Jan, [facility] [place] [facility] [address] [id number] [place] [address] Jan, [facility] [place] [facility] [address] [id number] [place] [address] Jan, [facility] [place] [facility] [address] [id number] [place] [address] 14 Dec, 2010 [facility] [place] [facility] [address] [id number] [place] [address] 14 Dec, 2010 [facility] [place] [facility] [address] [address] [id number] [place] [address] Sep, [facility] [id number] [address] July, [facility] [id number], [place] [address] Apr, [facility] [id number] [address] Mar, [facility] [address] [facility] [id number], [place] [address] Feb, [facility] [address] [facility] [id number], [place] [address] Feb, [facility] [id number], [place] [address] Feb, [facility] [id number], [place] [address] Feb, [facility] [id number], [place] [address] Feb, [facility] [id number], [place] [address] Feb, [facility] [id number] [place] [address] Feb, [facility] [id number] [address] Dec, [facility] [id number] [place] [address] Jan, [facility] [id number] [address] Apr, IMMUNIZATIONS No Known Immunizations SOCIAL HISTORY Never Assessed REASON FOR VISIT pain post fall/wrist swollen fell on 12/07/16, still having pain in neck and head aches, dizzy, passed out when bending over right before coming here. [facility] PLAN OF CARE Activity Details Follow Up 3 Months Reason: VITAL SIGNS Height 64 in 2016-12-22 Weight 178.0 lbs 2016-12-22 Temperature 98.4 degrees Fahrenheit 2016-12-22 Heart Rate 76 bpm 2016-12-22 Respiratory Rate 20 2016-12-22 BMI 30.55 kg/m2 2016-12-22 Blood pressure systolic 148 mmHg 2016-12-22 Blood pressure diastolic 94 mmHg 2016-12-22 MEDICATIONS Medication Instructions Dosage Frequency Start Date End Date Duration Status Enalapril Maleate 20 mg 1 Tablet by Oral route 1 time per day qHS Sep, Active Acetaminophen 500 MG Orally every 6 hrs 2 tablets as needed 6h Active Aspirin Adult Low Strength 81 MG Orally Once a day 1 tablet 24h Active Mobic 7.5 MG Orally twice a day, pc 1 tablet Dec, Dec, 10 days Active BD Pen Needle [place]lyn U/F 32G X 4 MM as directed 8h July, 90 days Active NovoLog 100 UNIT/ML Subcutaneous 3 times a day Inject 5 units before meals 8h Nov, 60 days Active Artificial Tear Ophthalmic 3 times a day 1 drop as needed 8h Active Digoxin 125 MCG Orally Once a day 1 tablet 24h 30 Active Carvedilol 12.5 mg 1 capsule by Oral route 2 times per day Feb, Active Levemir 100 unit/ml Subcutaneous hs inject 22 Units by Subcutaneous route in AM and 20 u in PM May, 0 days Active Loperamide HCl 2 MG Orally Four times a day 2 tablets as needed 6h Active BD Insulin Syringe 31G X 16 as directed 12h Mar, 30 days Active Meclizine HCl 12.5 MG Orally 3 times a day 1 8h Dec, 07 days Active RESULTS Name Result Date Reference Range A1C (IN HOUSE) 2016-12-22 A1C IN HOUSE 9.6 4.3 - 5.6 % Previous A1c 7.9 Lot [id number] Exp date 09/2018 PROCEDURES Procedure Date Ordered Result Body Site GLYCATED HEMOGLOBIN TEST Dec 22, 2016 INSTRUCTIONS MEDICATIONS ADMINISTERED No Known Medications MEDICAL [...] Surgery Hospitalization History Hyperglycemia 2012 Hospitalization History [facility] 11/28/2015-12/04/20152015 Hospitalization History Schizophrenia 09/26/16 Hospitalization History AMS, UTI, hyponatremia-[facility] 10/21/16 Hospitalization History stent placed 02/02/17 Hospitalization History stent placed 02/2017 Hospitalization History [facility]- Syncope, Dehydration and Hypotension. 06/08/2017
--- OUTSIDE RECORDS SUMMARY | 2018-09-05 13:03 | XMS REPORT ---
Author Author WOOD CALDERON Organization [facility] Address [address] [place] [address] Care Team Providers Care Legal Intern Name Role Phone WOOD CALDERON Unavailable PROBLEMS Type Condition ICD9-CM Code FYF51-GM Code Onset Dates Condition Status SNOMED Code Problem Coronary artery disease involving [place] coronary artery of [place] heart without angina pectoris I25.10 Active 9124661057641 Problem Bipolar affective disorder, current episode mixed, current episode severity unspecified F31.60 Active 200419770 Problem CVA (cerebral vascular accident) I63.9 Active 493640909 Problem Pacemaker Z95.0 Active 001342142 Problem Psychosis, unspecified psychosis type F29 Active 40233859 Problem Diabetes E11.9 Active 73752417 ALLERGIES No Information ENCOUNTERS Encounter Location Date Diagnosis [place] [address] [address] Aug, [place] [address] [address] July, [place] [address] [address] Jun, Dehydration E86.0 ; Diabetes E11.9 and Hyperglycemia R73.9 [place] [address] [address] Jun, [place] [address] [address] Jun, Vertigo R42 ; Syncope, unspecified syncope type R55 ; Diabetes E11.9 and Hyperglycemia R73.9 [place] [address] [address] May, Psychosis, unspecified psychosis type F29 and Bipolar affective disorder, current episode mixed, current episode severity unspecified F31.60 [facility] [id number] [place] [address] May, [facility] [address] [place] [id number] [place] [address] May, Diabetes E11.9 [facility] [id number] [id number] Apr, Dental examination Z01.20 and Dental caries K02.9 [facility] [address] [place] [id number] [place] [address] Apr, Dental examination Z01.20 and Dental abscess K04.7 [place] [address] [place] [id number] [place] [address] Mar, Psychosis, unspecified psychosis type F29 and Bipolar affective disorder, current episode mixed, current episode severity unspecified F31.60 [facility] [address] [place] [id number] [place] [address] Mar, [facility] [address] [place] [id number] [place] [address] Feb, [place] [address] [place] [id number] [place] [address] Feb, Left wrist pain M25.532 [place] [address] [place] [id number] [place] [address] Jan, [facility] [address] [place] [id number] [place] [address] Jan, Psychosis, unspecified psychosis type F29 and Bipolar affective disorder, current episode mixed, current episode severity unspecified F31.60 [facility] [address] [place] [id number] [place] [address] Jan, Diabetes E11.9 [facility] [id number] [place] [address] 07 Jan, 2017 Left wrist pain M25.532 [facility] [address] [place] [id number] [address] Dec, Psychosis, unspecified psychosis type F29 and Bipolar affective disorder, current episode mixed, current episode severity unspecified F31.60 [facility] [address] [place] [id number] [place] [address] Dec, Syncope, unspecified syncope type R55 ; Vertigo R42 ; Diabetes E11.9 ; Psychosis, unspecified psychosis type F29 and Fall, initial encounter W19.XXXA [facility] [address] [place] [id number] [place] [address] Dec, Diabetes E11.9 ; Neck pain M54.2 and Vertigo R42 [facility] [address] [place] [id number] [place] [address] Nov, [facility] [address] [place] [id number] [place] [address] Nov, [facility] [address] [place] [id number] [place] [address] Nov, [facility] [address] [place] [id number] [place] [address] Nov, Diabetes E11.9 [facility] [address] [place] [id number] [place] [address] Nov, Diabetes E11.9 [facility] [address] [place] [id number] [place] [address] Oct, [facility] [place] [address] [place] [id number] [place] [id number] Oct, [facility] [address] [place] [id number] [place] [address] Oct, [facility] [address] [place] [id number] [place] [address] Oct, Bipolar affective disorder, current episode mixed, current episode severity unspecified F31.60 [facility] [place] [address] [place] [id number] [place] [id number] Sep, [facility] [address] [address] Sep, Bipolar affective disorder, current episode mixed, current episode severity unspecified F31.60 [facility] [address] [address] Sep, Acute maxillary sinusitis, recurrence not specified J01.00 [facility] [address] [place] [id number] [place] [address] Sep, Diabetes E11.9 [place] [address] [place] [id number] [place] [address] July, Diabetes E11.9 [place] [address] [place] [id number] [place] [address] July, Diabetes E11.9 [place] [address] [place] [id number] [place] [address] Jun, [facility] [address] [place] [id number] [place] [address] May, Bipolar affective disorder, current episode mixed, current episode severity unspecified F31.60 [facility] [address] [place] [address] May, Acute non-recurrent maxillary sinusitis J01.00 [facility] [address] [address] 10 Apr, 2016 Psychosis, unspecified psychosis type F29 and Bipolar affective disorder, current episode mixed, current episode severity unspecified F31.60 [facility] [address] [place] [address] Apr, Dysuria R30.0 ; Other viral agents as the cause of diseases classified elsewhere B97.89 and Acute upper respiratory infection, unspecified J06.9 [facility] [address] [address] Mar, Diabetes E11.9 ; Urine leukocytes R82.99 and Psychosis, unspecified psychosis type F29 [facility] [address] [place] [id number] [place] [address] Mar, Diabetes E11.9 [facility] [address] [place] [id number] [place] [address] Feb, [facility] [address] [place] [id number] [place] [address] Jan, [facility] [address] [place] [id number] [place] [address] Dec, Psychosis, unspecified psychosis type F29 [facility] [address] [place] [id number] [place] [address] Dec, [facility] [address] [place] [id number] [place] [address] Dec, [facility] [address] [place] [id number] [place] [address] Dec, Psychosis, unspecified psychosis type F29 [facility] [address] [place] [id number] [place] [address] Nov, Schizoaffective disorder, unspecified type F25.9 [facility] [address] [place] [id number] [place] [address] Oct, [facility] [address] [place] [id number] [place] [address] Oct, Conjunctivitis of right eye, unspecified conjunctivitis type H10.9 [facility] [address] [place] [address] Aug, [facility] [address] [place] [id number] [place] [id number] Jun, Encounter for dental examination Z01.20 [facility] [address] [place] [id number] [place] [address] Jun, Diabetes E11.9 and Bipolar affect, depressed F31.30 [facility] [address] [id number] [place] [address] Jun, Other bipolar disorder F31.89 [facility] [address] [id number] [place] [address] Jun, [facility] [address] [facility] [id number] [place] [address] Apr, [facility] [address] [id number] [place] [address] Dec, [facility] [address] [id number] [place] [address] Dec, [facility] [address] [facility] [id number] [place] [address] Sep, [facility] [address] [facility] [id number] [place] [address] Jun, [facility] [place] [facility] [address] [facility] [id number] [place] [address] Jun, [facility] [address] [facility] [id number] [place] [address] Mar, [facility] [address] [facility] [id number] [place] [address] Mar, [facility] [place] [facility] [address] [facility] [id number] [place] [address] Nov, [facility] [place] [facility] [address] [id number] [place] [address] Nov, [facility] [place] [facility] [address] [id number] [place] [address] Sep, [facility] [place] [facility] [address] [facility] [id number] [place] [address] Sep, [facility] [place] [facility] [address] [facility] [id number] [place] [address] Sep, [facility] [place] [facility] [address] [facility] [id number] [place] [address] Sep, [facility] [place] [facility] [address] [id number] [place] [address] Sep, [facility] [place] [facility] [address] [id number] [place] [address] Aug, [facility] [place] [facility] [address] [id number] [place] [address] Aug, [facility] [place] [facility] [address] [id number] [place] [address] Aug, [facility] [place] [facility] [address] [id number] [place] [address] Aug, [facility] [place] [facility] [address] [id number] [place] [address] Aug, [facility] [place] [facility] [address] [id number] [place] [address] Aug, [facility] [place] [facility] [address] [id number] [place] [address] July, [facility] [place] [facility] [address] [id number] [place] [address] July, [facility] [place] [facility] [address] [id number] [place] [address] Jun, [facility] [place] [facility] [address] [id number] [place] [address] Jun, [facility] [place] [facility] [address] [id number] [place] [address] Jun, [facility] [place] [facility] [address] [id number] [place] [address] Jun, [facility] [place] [facility] [address] [id number] [place] [address] Jun, [facility] [place] [facility] [address] [id number] [place] [address] Jun, [facility] [place] [facility] [address] [id number] [place] [address] Jun, [facility] [place] [facility] [address] [id number] [place] [address] Jun, [facility] [place] [facility] [address] [id number] [place] [address] May, [facility] [place] [facility] [address] [id number] [place] [address] May, [facility] [place] [facility] [address] [id number] [place] [address] May, [facility] [place] [facility] [address] [id number] [place] [address] May, [facility] [place] [facility] [address] [id number] [place] [address] May, [facility] [place] [facility] [address] [id number] [place] [address] May, [facility] [place] [facility] [address] [id number] [place] [address] May, [facility] [place] [facility] [address] [id number] [place] [address] May, [facility] [place] [facility] [address] [id number] [place] [address] May, [facility] [place] [facility] [address] [id number] [place] [address] Apr, [facility] [place] [facility] [address] [id number] [place] [address] Apr, [facility] [place] [facility] [address] [id number] [place] [address] Mar, [facility] [place] [facility] [address] [id number] [place] [address] Mar, [facility] [place] [facility] [address] [id number] [place] [address] Feb, [facility] [address] [id number] [place] [address] Feb, [facility] [place] [facility] [address] [id number] [place] [address] Nov, [facility] [place] [facility] [address] [id number] [place] [address] Nov, [facility] [place] [facility] [address] [id number] [place] [address] Oct, [facility] [place] [facility] [address] [id number] [place] [address] Oct, [facility] [place] [facility] [address] [id number] [place] [address] Oct, [facility] [address] [id number] [place] [address] Oct, [facility] [place] [facility] [address] [id number] [place] [address] Oct, [facility] [place] [facility] [address] [id number] [place] [address] Sep, [facility] [place] [facility] [address] [id number] [place] [address] Sep, [facility] [place] [facility] [address] [id number] [place] [address] Sep, [facility] [place] [facility] [address] [id number] [place] [address] Sep, [facility] [place] [facility] [address] [id number] [place] [address] Aug, [facility] [place] [facility] [address] [id number] [place] [address] Aug, [facility] [place] [facility] [address] [id number] [place] [address] Aug, [facility] [place] [facility] [address] [id number] [place] [address] 07 Aug, 2012 [facility] [address] [id number] [place] [address] 19 Jun, 2012 [facility] [place] [facility] [address] [id number] [place] [address] 18 Jun, 2012 [facility] [place] [facility] [address] [id number] [place] [address] 17 Jun, 2012 [facility] [place] [facility] [address] [id number] [place] [address] 17 Jun, 2012 [facility] [address] [id number] [place] [address] May, [facility] [place] [facility] [address] [id number] [place] [address] 18 May, 2012 [facility] [place] [facility] [address] [id number] [place] [address] 18 May, 2012 [facility] [address] [id number] [place] [address] 13 May, 2012 [facility] [place] [facility] [address] [id number] [place] [address] 11 May, 2012 [facility] [address] [id number] [place] [address] 04 May, 2012 [facility] [place] [facility] [address] [id number] [place] [address] Apr, [facility] [place] [facility] [address] [id number] [place] [address] Apr, [facility] [place] [facility] [address] [id number] [place] [address] Apr, [facility] [place] [facility] [address] [id number] [place] [address] Apr, [facility] [place] [facility] [address] [id number] [place] [address] 19 Apr, 2012 [facility] [address] [id number] [place] [address] 20 Feb, 2012 [facility] [place] [facility] [address] [id number] [place] [address] 20 Feb, 2012 [facility] [place] [facility] [address] [id number] [place] [address] 19 Feb, 2012 [facility] [place] [facility] [address] [id number] [place] [address] 19 Feb, 2012 [facility] [address] [id number] [place] [address] 19 Feb, 2012 [facility] [place] [facility] [address] [id number] [place] [address] 19 Feb, 2012 [facility] [place] [facility] [address] [id number] [place] [address] 19 Feb, 2012 [facility] [place] [facility] [address] [id number] [place] [address] 19 Feb, 2012 [facility] [place] [facility] [address] [id number] [place] [address] 14 Feb, 2012 [facility] [place] [facility] [address] [id number] [place] [address] 14 Feb, 2012 [facility] [place] [facility] [address] [id number] [place] [address] 13 Feb, 2012 [facility] [place] [facility] [address] [id number] [place] [address] 13 Feb, 2012 [facility] [place] [facility] [address] [id number] [place] [address] 12 Feb, 2012 [facility] [place] [facility] [address] [id number] [place] [address] 12 Feb, 2012 [facility] [place] [facility] [address] [id number] [place] [address] 12 Feb, 2012 [facility] [place] [facility] [address] [id number] [place] [address] Feb, [facility] [address] [id number] [place] [address] Feb, [facility] [place] [facility] [address] [id number] [place] [address] Feb, [facility] [address] [id number] [place] [address] Feb, [facility] [place] [facility] [address] [id number] [place] [address] Feb, [facility] [address] [id number] [place] [address] Feb, [facility] [address] [id number] [place] [address] Feb, [facility] [address] [id number] [place] [address] Feb, [facility] [address] [id number] [place] [address] Feb, [facility] [place] [facility] [address] [id number] [place] [address] Feb, [facility] [address] [id number] [place] [address] Feb, [facility] [place] [facility] [address] [id number] [place] [address] Jan, [facility] [place] [facility] [address] [id number] [place] [address] Jan, [facility] [place] [facility] [address] [id number] [place] [address] Dec, [facility] [place] [facility] [address] [id number] [place] [address] Dec, [facility] [place] [facility] [address] [id number] [place] [address] Dec, [facility] [place] [facility] [address] [id number] [place] [address] 17 Dec, 2011 [facility] [place] [facility] [address] [id number] [place] [address] 26 Nov, 2011 [facility] [place] [facility] [address] [id number] [place] [address] 12 Nov, 2011 [facility] [place] [facility] [address] [id number] [place] [address] 06 Nov, 2011 [facility] [place] [facility] [address] [id number] [place] [address] 04 Nov, 2011 [facility] [place] [facility] [address] [id number] [place] [address] Oct, [facility] [place] [facility] [address] [id number] [place] [address] Oct, [facility] [place] [facility] [address] [id number] [place] [address] Sep, [facility] [place] [facility] [address] [id number] [place] [address] Sep, [facility] [place] [facility] [address] [id number] [place] [address] Sep, [facility] [place] [facility] [address] [id number] [place] [address] Aug, [facility] [place] [facility] [address] [id number] [place] [address] Aug, [facility] [place] [facility] [address] [id number] [place] [address] 14 Aug, 2011 [facility] [place] [facility] [address] [id number] [place] [address] 13 Aug, 2011 [facility] [place] [facility] [address] [id number] [place] [address] 13 Aug, 2011 [facility] [place] [facility] [address] [id number] [place] [address] July, [facility] [address] [id number] [place] [address] July, [facility] [address] [id number] [place] [address] July, [facility] [address] [id number] [place] [address] July, [facility] [address] [id number] [place] [address] July, [facility] [address] [id number] [place] [address] Jun, [facility] [address] [id number] [place] [address] May, [facility] [address] [id number] [place] [address] 16 Apr, 2011 [facility] [address] [id number] [place] [address] Apr, [facility] [address] [id number] [place] [address] Apr, [facility] [address] [id number] [place] [address] Mar, [facility] [address] [id number] [place] [address] Mar, [facility] [place] [facility] [address] [id number] [place] [address] Mar, [facility] [place] [facility] [address] [id number] [place] [address] Mar, [facility] [place] [facility] [address] [id number] [place] [address] Mar, [facility] [place] [facility] [address] [id number] [place] [address] Mar, [facility] [place] [facility] [address] [id number] [place] [address] Mar, [facility] [place] [facility] [address] [id number] [place] [address] Mar, [facility] [place] [facility] [address] [id number] [place] [address] Feb, [facility] [place] [facility] [address] [id number] [place] [address] Feb, [facility] [place] [facility] [address] [id number] [place] [address] Feb, [facility] [place] [facility] [address] [id number] [place] [address] Feb, [facility] [place] [facility] [address] [id number] [place] [address] Feb, [facility] [place] [facility] [address] [id number] [place] [address] Jan, [facility] [place] [facility] [address] [id number] [place] [address] Jan, [facility] [place] [facility] [address] [id number] [place] [address] Jan, [facility] [place] [facility] [address] [id number] [place] [address] Jan, [facility] [place] [facility] [address] [id number] [place] [address] Dec, [facility] [place] [facility] [address] [id number] [place] [address] Dec, [facility] [place] [facility] [address] [id number] [place] [address] Sep, [facility] [place] [facility] [address] [id number] [place] [address] July, [facility] [place] [facility] [address] [id number] [place] [address] Apr, [facility] [address] [facility] [id number] [place] [address] Mar, [facility] [address] [facility] [id number] [place] [address] Feb, [facility] [address] [facility] [id number] [place] [address] Feb, [facility] [address] [facility] [id number] [place] [address] Feb, [facility] [address] [facility] [id number] [place] [address] Feb, [facility] [address] [facility] [id number] [place] [address] Feb, [facility] [address] [facility] [id number] [place] [address] Feb, [facility] [id number] [place] [address] Feb, [facility] [address] [facility] [id number] [place] [address] Dec, [facility] [address] [facility] [id number] [place] [address] Jan, [facility] [address] [id number] [place] [address] Apr, IMMUNIZATIONS No Known Immunizations SOCIAL HISTORY Never Assessed REASON FOR VISIT Refill request PLAN OF CARE VITAL SIGNS MEDICATIONS Medication Instructions Dosage Frequency Start Date End Date Duration Status BD Pen Needle [place] U/F 32G X 4 MM as directed 8h July, 90 days Active RESULTS No Results PROCEDURES [...] Hospitalization History Hyperglycemia 2012 Hospitalization History [facility] 11/28/2015-12/04/20152015 Hospitalization History Schizophrenia 09/26/16 Hospitalization History AMS, UTI, hyponatremia-[facility] 10/21/16 Hospitalization History stent placed 02/02/17 Hospitalization History stent placed 02/2017 Hospitalization History [facility]- Syncope, Dehydration and Hypotension. 06/08/2017
--- OUTSIDE RECORDS SUMMARY | 2018-09-05 13:04 | XMS REPORT ---
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.10 Active [id number] Problem Bipolar affective disorder, current episode mixed, current episode severity unspecified F31.60 Active 917099817 Problem CVA (cerebral vascular accident) I63.9 Active 159852730 Problem Pacemaker Z95.0 Active 436254787 Problem Psychosis, unspecified psychosis type F29 Active 50901269 Problem Diabetes E11.9 Active [id number] ALLERGIES No Information ENCOUNTERS Encounter Location Date Diagnosis [place] [address] [address] Aug, [place] [address] [address] July, [place] [address] [address] Jun, Dehydration E86.0 ; Diabetes E11.9 and Hyperglycemia R73.9 [place] [address] [address] Jun, [place] [address] [address] Jun, Vertigo R42 ; Syncope, unspecified syncope type R55 ; Diabetes E11.9 and Hyperglycemia R73.9 [place] [address] [address] May, Psychosis, unspecified psychosis type F29 and Bipolar affective disorder, current episode mixed, current episode severity unspecified F31.60 [facility] [id number] [place] [address] May, [facility] [address] [place] [id number] [place] [address] May, Diabetes E11.9 [facility] [address] [id number] Apr, Dental examination Z01.20 and Dental caries K02.9 [facility] [address] [place] [id number] [place] [address] Apr, Dental examination Z01.20 and Dental abscess K04.7 [place] [address] [place] [id number] [place] [address] Mar, Psychosis, unspecified psychosis type F29 and Bipolar affective disorder, current episode mixed, current episode severity unspecified F31.60 [facility] [address] [place] [id number] [place] [address] Mar, [facility] [address] [place] [id number] [place] [address] Feb, [place] [address] [place] [id number] [place] [address] Feb, Left wrist pain M25.532 [place] [address] [place] [id number] [place] [address] Jan, [facility] [address] [place] [id number] [place] [address] Jan, Psychosis, unspecified psychosis type F29 and Bipolar affective disorder, current episode mixed, current episode severity unspecified F31.60 [facility] [address] [place] [id number] [place] [address] Jan, Diabetes E11.9 [facility] [id number] [place] [address] 07 Jan, 2017 Left wrist pain M25.532 [facility] [address] [place] [id number] [address] Dec, Psychosis, unspecified psychosis type F29 and Bipolar affective disorder, current episode mixed, current episode severity unspecified F31.60 [facility] [address] [place] [id number] [place] [address] Dec, Syncope, unspecified syncope type R55 ; Vertigo R42 ; Diabetes E11.9 ; Psychosis, unspecified psychosis type F29 and Fall, initial encounter W19.XXXA [facility] [address] [place] [id number] [place] [address] Dec, Diabetes E11.9 ; Neck pain M54.2 and Vertigo R42 [facility] [address] [place] [id number] [place] [address] Nov, [facility] [address] [place] [id number] [place] [address] Nov, [facility] [address] [place] [id number] [place] [address] Nov, [facility] [address] [place] [id number] [place] [address] Nov, Diabetes E11.9 [facility] [address] [place] [id number] [place] [address] Nov, Diabetes E11.9 [facility] [address] [place] [id number] [place] [address] Oct, [facility] [address] [place] [id number] [place] [id number] Oct, [facility] [address] [place] [id number] [place] [address] Oct, [facility] [address] [place] [id number] [place] [address] Oct, Bipolar affective disorder, current episode mixed, current episode severity unspecified F31.60 [facility] [address] [place] [id number] [place] [id number] Sep, [facility] [address] [address] Sep, Bipolar affective disorder, current episode mixed, current episode severity unspecified F31.60 [facility] [address] [address] Sep, Acute maxillary sinusitis, recurrence not specified J01.00 [facility] [address] [place] [id number] [place] [address] Sep, Diabetes E11.9 [place] [address] [place] [id number] [place] [address] July, Diabetes E11.9 [place] [address] [place] [id number] [place] [address] July, Diabetes E11.9 [place] [address] [place] [id number] [place] [address] Jun, [facility] [address] [place] [id number] [place] [address] May, Bipolar affective disorder, current episode mixed, current episode severity unspecified F31.60 [facility] [id number] [place] [address] May, Acute non-recurrent maxillary sinusitis J01.00 [facility] [address] [address] 10 Apr, 2016 Psychosis, unspecified psychosis type F29 and Bipolar affective disorder, current episode mixed, current episode severity unspecified F31.60 [facility] [id number] [place] [address] Apr, Dysuria R30.0 ; Other viral agents as the cause of diseases classified elsewhere B97.89 and Acute upper respiratory infection, unspecified J06.9 [facility] [address] [address] Mar, Diabetes E11.9 ; Urine leukocytes R82.99 and Psychosis, unspecified psychosis type F29 [facility] [address] [place] [id number] [place] [address] Mar, Diabetes E11.9 [facility] [address] [place] [id number] [place] [address] Feb, [facility] [address] [place] [id number] [place] [address] Jan, [facility] [address] [place] [id number] [place] [address] Dec, Psychosis, unspecified psychosis type F29 [facility] [address] [place] [id number] [place] [address] Dec, [facility] [address] [place] [id number] [place] [address] Dec, [facility] [address] [place] [id number] [place] [address] Dec, Psychosis, unspecified psychosis type F29 [facility] [address] [place] [id number] [place] [address] Nov, Schizoaffective disorder, unspecified type F25.9 [facility] [address] [place] [id number] [place] [address] Oct, [facility] [address] [place] [id number] [place] [address] Oct, Conjunctivitis of right eye, unspecified conjunctivitis type H10.9 [facility] [id number] [place] [address] Aug, [facility] [address] [place] [id number] [place] [id number] Jun, Encounter for dental examination Z01.20 [facility] [address] [place] [id number] [place] [address] Jun, Diabetes E11.9 and Bipolar affect, depressed F31.30 [facility] [address] [id number] [place] [address] Jun, Other bipolar disorder F31.89 [facility] [address] [id number] [place] [address] Jun, [facility] [address] [facility] [id number] [place] [address] Apr, [facility] [address] [id number] [place] [address] Dec, [facility] [address] [id number] [place] [address] Dec, [facility] [address] [facility] [id number] [place] [address] Sep, [facility] [address] [facility] [id number] [place] [address] Jun, [facility] [place] [facility] [address] [facility] [id number] [place] [address] Jun, [facility] [address] [facility] [id number] [place] [address] Mar, [facility] [address] [facility] [id number] [place] [address] Mar, [facility] [place] [facility] [address] [facility] [id number] [address] Nov, [facility] [place] [facility] [address] [id number] [address] Nov, [facility] [place] [facility] [address] [id number] [place] [address] Sep, [facility] [place] [facility] [address] [facility] [id number] [place] [address] Sep, [facility] [place] [facility] [address] [facility] [id number] [place] [address] Sep, [facility] [place] [facility] [address] [facility] [id number] [place] [address] Sep, [facility] [place] [facility] [address] [id number] [place] [address] Sep, [facility] [place] [facility] [address] [id number] [place] [address] Aug, [facility] [place] [facility] [address] [id number] [place] [address] Aug, [facility] [place] [facility] [address] [id number] [place] [address] Aug, [facility] [place] [facility] [address] [id number] [place] [address] Aug, [facility] [place] [facility] [address] [id number] [place] [address] Aug, [facility] [place] [facility] [address] [id number] [place] [address] Aug, [facility] [place] [facility] [address] [id number] [place] [address] July, [facility] [place] [facility] [address] [id number] [place] [address] July, [facility] [place] [facility] [address] [id number] [place] [address] Jun, [facility] [place] [facility] [address] [id number] [place] [address] Jun, [facility] [place] [facility] [address] [id number] [place] [address] Jun, [facility] [place] [facility] [address] [id number] [place] [address] Jun, [facility] [place] [facility] [address] [id number] [place] [address] Jun, [facility] [place] [facility] [address] [id number] [place] [address] Jun, [facility] [place] [facility] [address] [id number] [place] [address] Jun, [facility] [place] [facility] [address] [id number] [place] [address] Jun, [facility] [place] [facility] [address] [id number] [place] [address] May, [facility] [place] [facility] [address] [id number] [place] [address] May, [facility] [place] [facility] [address] [id number] [place] [address] May, [facility] [place] [facility] [address] [id number] [place] [address] May, [facility] [place] [facility] [address] [id number] [place] [address] May, [facility] [place] [facility] [address] [id number] [place] [address] May, [facility] [place] [facility] [address] [id number] [place] [address] May, [facility] [place] [facility] [address] [id number] [place] [address] May, [facility] [place] [facility] [address] [id number] [place] [address] May, [facility] [place] [facility] [address] [id number] [place] [address] Apr, [facility] [place] [facility] [address] [id number] [place] [address] Apr, [facility] [place] [facility] [address] [id number] [place] [address] Mar, [facility] [place] [facility] [address] [id number] [place] [address] Mar, [facility] [place] [facility] [address] [id number] [place] [address] Feb, [facility] [address] [id number] [place] [address] Feb, [facility] [place] [facility] [address] [id number] [place] [address] Nov, [facility] [place] [facility] [address] [id number] [place] [address] Nov, [facility] [place] [facility] [address] [id number] [place] [address] Oct, [facility] [place] [facility] [address] [id number] [place] [address] Oct, [facility] [place] [facility] [address] [id number] [place] [address] Oct, [facility] [address] [id number] [place] [address] Oct, [facility] [place] [facility] [address] [id number] [place] [address] Oct, [facility] [place] [facility] [address] [id number] [place] [address] Sep, [facility] [place] [facility] [address] [id number] [place] [address] Sep, [facility] [place] [facility] [address] [id number] [place] [address] Sep, [facility] [place] [facility] [address] [id number] [place] [address] Sep, [facility] [place] [facility] [address] [id number] [place] [address] Aug, [facility] [place] [facility] [address] [id number] [place] [address] Aug, [facility] [place] [facility] [address] [id number] [place] [address] Aug, [facility] [place] [facility] [address] [id number] [place] [address] 07 Aug, 2012 [facility] [address] [id number] [place] [address] 19 Jun, 2012 [facility] [place] [facility] [address] [id number] [place] [address] 18 Jun, 2012 [facility] [place] [facility] [address] [id number] [place] [address] 17 Jun, 2012 [facility] [place] [facility] [address] [id number] [place] [address] 17 Jun, 2012 [facility] [address] [id number] [place] [address] May, [facility] [place] [facility] [address] [id number] [place] [address] 18 May, 2012 [facility] [place] [facility] [address] [id number] [place] [address] 18 May, 2012 [facility] [address] [id number] [place] [address] 13 May, 2012 [facility] [place] [facility] [address] [id number] [place] [address] 11 May, 2012 [facility] [address] [id number] [place] [address] 04 May, 2012 [facility] [place] [facility] [address] [id number] [place] [address] Apr, [facility] [place] [facility] [address] [id number] [place] [address] Apr, [facility] [place] [facility] [address] [id number] [place] [address] Apr, [facility] [place] [facility] [address] [id number] [place] [address] Apr, [facility] [place] [facility] [address] [id number] [place] [address] 19 Apr, 2012 [facility] [address] [id number] [place] [address] 20 Feb, 2012 [facility] [place] [facility] [address] [id number] [place] [address] 20 Feb, 2012 [facility] [place] [facility] [address] [id number] [place] [address] 19 Feb, 2012 [facility] [place] [facility] [address] [id number] [place] [address] 19 Feb, 2012 [facility] [address] [id number] [place] [address] 19 Feb, 2012 [facility] [place] [facility] [address] [id number] [place] [address] 19 Feb, 2012 [facility] [place] [facility] [address] [id number] [place] [address] 19 Feb, 2012 [facility] [place] [facility] [address] [id number] [place] [address] 19 Feb, 2012 [facility] [place] [facility] [address] [id number] [place] [address] 14 Feb, 2012 [facility] [place] [facility] [address] [id number] [place] [address] 14 Feb, 2012 [facility] [place] [facility] [address] [id number] [place] [address] 13 Feb, 2012 [facility] [place] [facility] [address] [id number] [place] [address] 13 Feb, 2012 [facility] [place] [facility] [address] [id number] [place] [address] 12 Feb, 2012 [facility] [place] [facility] [address] [id number] [place] [address] 12 Feb, 2012 [facility] [place] [facility] [address] [id number] [place] [address] 12 Feb, 2012 [facility] [place] [facility] [address] [id number] [place] [address] Feb, [facility] [address] [id number] [place] [address] Feb, [facility] [place] [facility] [address] [id number] [place] [address] Feb, [facility] [address] [id number] [place] [address] Feb, [facility] [place] [facility] [address] [id number] [place] [address] Feb, [facility] [address] [id number] [place] [address] Feb, [facility] [address] [id number] [place] [address] Feb, [facility] [address] [id number] [place] [address] Feb, [facility] [address] [id number] [place] [address] Feb, [facility] [place] [facility] [address] [id number] [place] [address] Feb, [facility] [address] [id number] [place] [address] Feb, [facility] [place] [facility] [address] [id number] [place] [address] Jan, [facility] [place] [facility] [address] [id number] [place] [address] Jan, [facility] [place] [facility] [address] [id number] [place] [address] Dec, [facility] [place] [facility] [address] [id number] [place] [address] Dec, [facility] [place] [facility] [address] [id number] [place] [address] Dec, [facility] [place] [facility] [address] [id number] [place] [address] 17 Dec, 2011 [facility] [place] [facility] [address] [id number] [place] [address] 26 Nov, 2011 [facility] [place] [facility] [address] [id number] [place] [address] 12 Nov, 2011 [facility] [place] [facility] [address] [id number] [place] [address] 06 Nov, 2011 [facility] [place] [facility] [address] [id number] [place] [address] 04 Nov, 2011 [facility] [place] [facility] [address] [id number] [place] [address] Oct, [facility] [place] [facility] [address] [id number] [place] [address] Oct, [facility] [place] [facility] [address] [id number] [place] [address] Sep, [facility] [place] [facility] [address] [id number] [place] [address] Sep, [facility] [place] [facility] [address] [id number] [address] Sep, [facility] [place] [facility] [address] [id number] [place] [address] Aug, [facility] [place] [facility] [address] [id number], [place] [address] Aug, [facility] [place] [facility] [address] [id number] [place] [address] 14 Aug, 2011 [facility] [place] [facility] [address] [id number][place] [address] 13 Aug, 2011 [facility] [place] [facility] [address] [id number], [place] [address] 13 Aug, 2011 [facility] [place] [facility] [address] [id number], [place] [address] July, [facility] [address] [id number] [place] [address] July, [facility] [address] [id number] [place] [address] July, [facility] [address] [id number] [place] [address] July, [facility] [address] [id number] [place] [address] July, [facility] [address] [id number] [place] [address] Jun, [facility] [address] [id number] [place] [address] May, [facility] [address] [id number] [place] [address] 16 Apr, 2011 [facility] [address] [id number] [place] [address] Apr, [facility] [address] [id number] [place] [address] Apr, [facility] [address] [id number] [place] [address] Mar, [facility] [address] [id number] [place] [address] Mar, [facility] [place] [facility] [address] [id number] [place] [address] Mar, [facility] [place] [facility] [address] [id number] [place] [address] Mar, [facility] [place] [facility] [address] [id number] [place] [address] Mar, [facility] [place] [facility] [address] [id number] [place] [address] Mar, [facility] [place] [facility] [address] [id number] [place] [address] Mar, [facility] [place] [facility] [address] [id number] [place] [address] Mar, [facility] [place] [facility] [address] [id number] [place] [address] Feb, [facility] [place] [facility] [address] [id number] [place] [address] Feb, [facility] [place] [facility] [address] [id number] [place] [address] Feb, [facility] [place] [facility] [address] [id number] [place] [address] Feb, [facility] [place] [facility] [address] [id number] [place] [address] Feb, [facility] [place] [facility] [address] [id number] [place] [address] Jan, [facility] [place] [facility] [address] [id number] [place] [address] Jan, [facility] [place] [facility] [address] [id number] [place] [address] Jan, [facility] [place] [facility] [address] [id number] [place] [address] Jan, [facility] [place] [facility] [address] [id number] [place] [address] Dec, [facility] [place] [facility] [address] [id number] [place] [address] Dec, [facility] [place] [facility] [address] [id number] [place] [address] Sep, [facility] [place] [facility] [address] [id number] [place] [address] July, [facility] [place] [facility] [address] [id number] [address] Apr, [facility] [address] [facility] [id number], [place] [address] Mar, [facility] [address] [facility] [id number], [place] [address] Feb, [facility] [address] [facility] [id number], [place] [address] Feb, [facility] [address] [facility] [id number], [place] [address] Feb, [facility] [address] [facility] [id number], [place] [address] Feb, [facility] [address] [id number], [place] [address] Feb, [facility] [id number], [place] [address] Feb, [facility] [id number], [place] [address] Feb, [facility] [address] [id number], [place] [address] Dec, [facility] [id number], [place] [address] Jan, [facility] [address] [id number], [place] [address] Apr, IMMUNIZATIONS No Known Immunizations SOCIAL HISTORY Never Assessed REASON FOR VISIT Blood pressure check PLAN OF CARE VITAL SIGNS Height 64 in 2016-11-14 Blood pressure systolic 140 mmHg 2016-11-14 Blood pressure diastolic 80 mmHg 2016-11-14 MEDICATIONS Unknown Medications RESULTS No Results PROCEDURES [...] Hospitalization History Hyperglycemia 2012 Hospitalization History [facility] 11/28/2015-12/04/20152015 Hospitalization History Schizophrenia 09/26/16 Hospitalization History AMS, UTI, hyponatremia-[facility] 10/21/16 Hospitalization History stent placed 02/02/17 Hospitalization History stent placed 02/2017 Hospitalization History [facility]- Syncope, Dehydration and Hypotension. 06/08/2017
--- OUTSIDE RECORDS SUMMARY | 2018-09-05 13:04 | XMS REPORT ---
Author Author WOOD CALDERON Organization [facility] Address [address] [place] [address] Care Team Providers Care Cook House Supervisor Name Role Phone WOOD CALDERON Unavailable PROBLEMS Type Condition ICD9-CM Code [id number] Code Onset Dates Condition Status SNOMED Code Problem Coronary artery disease involving [place] coronary artery of [place] heart without angina pectoris I25.10 Active [id number] Problem Bipolar affective disorder, current episode mixed, current episode severity unspecified F31.60 Active 568687437 Problem CVA (cerebral vascular accident) I63.9 Active 797405057 Problem Pacemaker Z95.0 Active 831209828 Problem Psychosis, unspecified psychosis type F29 Active 45542409 Problem Diabetes E11.9 Active [id number] ALLERGIES No Information ENCOUNTERS Encounter Location Date Diagnosis [place] [address] [address] Aug, [place] [address] [address] July, [place] [address] [address] Jun, Dehydration E86.0 ; Diabetes E11.9 and Hyperglycemia R73.9 [place] [address] [address] Jun, [place] [address] [address] Jun, Vertigo R42 ; Syncope, unspecified syncope type R55 ; Diabetes E11.9 and Hyperglycemia R73.9 [place] [address] [address] May, Psychosis, unspecified psychosis type F29 and Bipolar affective disorder, current episode mixed, current episode severity unspecified F31.60 [facility] [id number] [place] [address] May, [facility] [address] [place] [id number] [place] [address] May, Diabetes E11.9 [facility] [address] [id number] Apr, Dental examination Z01.20 and Dental caries K02.9 [facility] [address] [place] [id number] [place] [address] Apr, Dental examination Z01.20 and Dental abscess K04.7 [place] [address] [place] [id number] [place] [address] Mar, Psychosis, unspecified psychosis type F29 and Bipolar affective disorder, current episode mixed, current episode severity unspecified F31.60 [facility] [address] [place] [id number] [place] [address] Mar, [facility] [address] [place] [id number] [place] [address] Feb, [place] [address] [place] [id number] [place] [address] Feb, Left wrist pain M25.532 [place] [address] [place] [id number] [place] [address] Jan, [facility] [address] [place] [id number] [place] [address] Jan, Psychosis, unspecified psychosis type F29 and Bipolar affective disorder, current episode mixed, current episode severity unspecified F31.60 [facility] [address] [place] [id number] [place] [address] Jan, Diabetes E11.9 [facility] [id number] [place] [address] 07 Jan, 2017 Left wrist pain M25.532 [facility] [address] [place] [id number] [address] Dec, Psychosis, unspecified psychosis type F29 and Bipolar affective disorder, current episode mixed, current episode severity unspecified F31.60 [facility] [address] [place] [id number] [place] [address] Dec, Syncope, unspecified syncope type R55 ; Vertigo R42 ; Diabetes E11.9 ; Psychosis, unspecified psychosis type F29 and Fall, initial encounter W19.XXXA [facility] [address] [place] [id number] [place] [address] Dec, Diabetes E11.9 ; Neck pain M54.2 and Vertigo R42 [facility] [address] [place] [id number] [place] [address] Nov, [facility] [address] [place] [id number] [place] [address] Nov, [facility] [address] [place] [id number] [place] [address] Nov, [facility] [address] [place] [id number] [place] [address] Nov, Diabetes E11.9 [facility] [address] [place] [id number] [place] [address] Nov, Diabetes E11.9 [facility] [address] [place] [id number] [place] [address] Oct, [facility] [address] [place] [id number] [place] [id number] Oct, [facility] [address] [place] [id number] [place] [address] Oct, [facility] [address] [place] [id number] [place] [address] Oct, Bipolar affective disorder, current episode mixed, current episode severity unspecified F31.60 [facility] [address] [place] [id number] [place] [id number] Sep, [facility] [address], [place] [address] Sep, Bipolar affective disorder, current episode mixed, current episode severity unspecified F31.60 [facility] [address], [place] [address] Sep, Acute maxillary sinusitis, recurrence not specified J01.00 [facility] [address] [place] [id number] [place] [address] Sep, Diabetes E11.9 [place] [address] [place] [id number] [place] [address] July, Diabetes E11.9 [place] [address] [place] [id number] [place] [address] July, Diabetes E11.9 [place] [address] [place] [id number] [place] [address] Jun, [facility] [address] [place] [id number] [place] [address] May, Bipolar affective disorder, current episode mixed, current episode severity unspecified F31.60 [facility] [address] [place] [address] May, Acute non-recurrent maxillary sinusitis J01.00 [facility] [address], [place] [address] 10 Apr, 2016 Psychosis, unspecified psychosis type F29 and Bipolar affective disorder, current episode mixed, current episode severity unspecified F31.60 [facility] [address] [place] [address] Apr, Dysuria R30.0 ; Other viral agents as the cause of diseases classified elsewhere B97.89 and Acute upper respiratory infection, unspecified J06.9 [facility] [address], [place] [address] Mar, Diabetes E11.9 ; Urine leukocytes R82.99 and Psychosis, unspecified psychosis type F29 [facility] [address] [place] [id number] [place] [address] Mar, Diabetes E11.9 [facility] [address] [place] [id number] [place] [address] Feb, [facility] [address] [place] [id number] [place] [address] Jan, [facility] [address] [place] [id number] [place] [address] Dec, Psychosis, unspecified psychosis type F29 [facility] [address] [place] [id number] [place] [address] Dec, [facility] [address] [place] [id number] [place] [address] Dec, [facility] [address] [place] [id number] [place] [address] Dec, Psychosis, unspecified psychosis type F29 [facility] [address] [place] [id number] [place] [address] Nov, Schizoaffective disorder, unspecified type F25.9 [facility] [address] [place] [id number] [place] [address] Oct, [facility] [address] [place] [id number] [place] [address] Oct, Conjunctivitis of right eye, unspecified conjunctivitis type H10.9 [facility] [address] [place] [address] Aug, [facility] [address] [place] [id number] [place] [id number] Jun, Encounter for dental examination Z01.20 [facility] [address] [place] [id number] [place] [address] Jun, Diabetes E11.9 and Bipolar affect, depressed F31.30 [facility] [address] [id number] [place] [address] Jun, Other bipolar disorder F31.89 [facility] [address] [id number] [place] [address] Jun, [facility] [address] [facility] [id number] [place] [address] Apr, [facility] [address] [id number] [place] [address] Dec, [facility] [address] [id number] [place] [address] Dec, [facility] [address] [facility] [id number] [place] [address] Sep, [facility] [address] [facility] [id number] [place] [address] Jun, [facility] [place] [facility] [address] [facility] [id number] [place] [address] Jun, [facility] [address] [facility] [id number] [place] [address] Mar, [facility] [address] [facility] [id number] [place] [address] Mar, [facility] [place] [facility] [address] [facility] [id number], [place] [address] Nov, [facility] [place] [facility] [address] [id number], [place] [address] Nov, [facility] [place] [facility] [address] [id number] [place] [address] Sep, [facility] [place] [facility] [address] [facility] [id number] [place] [address] Sep, [facility] [place] [facility] [address] [facility] [id number] [place] [address] Sep, [facility] [place] [facility] [address] [facility] [id number] [place] [address] Sep, [facility] [place] [facility] [address] [id number] [place] [address] Sep, [facility] [place] [facility] [address] [id number] [place] [address] Aug, [facility] [place] [facility] [address] [id number] [place] [address] Aug, [facility] [place] [facility] [address] [id number] [place] [address] Aug, [facility] [place] [facility] [address] [id number] [place] [address] Aug, [facility] [place] [facility] [address] [id number] [place] [address] Aug, [facility] [place] [facility] [address] [id number] [place] [address] Aug, [facility] [place] [facility] [address] [id number] [place] [address] July, [facility] [place] [facility] [address] [id number] [place] [address] July, [facility] [place] [facility] [address] [id number] [place] [address] Jun, [facility] [place] [facility] [address] [id number] [place] [address] Jun, [facility] [place] [facility] [address] [id number] [place] [address] Jun, [facility] [place] [facility] [address] [id number] [place] [address] Jun, [facility] [place] [facility] [address] [id number] [place] [address] Jun, [facility] [place] [facility] [address] [id number] [place] [address] Jun, [facility] [place] [facility] [address] [id number] [place] [address] Jun, [facility] [place] [facility] [address] [id number] [place] [address] Jun, [facility] [place] [facility] [address] [id number] [place] [address] May, [facility] [place] [facility] [address] [id number] [place] [address] May, [facility] [place] [facility] [address] [id number] [place] [address] May, [facility] [place] [facility] [address] [id number] [place] [address] May, [facility] [place] [facility] [address] [id number] [place] [address] May, [facility] [place] [facility] [address] [id number] [place] [address] May, [facility] [place] [facility] [address] [id number] [place] [address] May, [facility] [place] [facility] [address] [id number] [place] [address] May, [facility] [place] [facility] [address] [id number] [place] [address] May, [facility] [place] [facility] [address] [id number] [place] [address] Apr, [facility] [place] [facility] [address] [id number] [place] [address] Apr, [facility] [place] [facility] [address] [id number] [place] [address] Mar, [facility] [place] [facility] [address] [id number] [place] [address] Mar, [facility] [place] [facility] [address] [id number] [place] [address] Feb, [facility] [address] [id number] [place] [address] Feb, [facility] [place] [facility] [address] [id number] [place] [address] Nov, [facility] [place] [facility] [address] [id number] [place] [address] Nov, [facility] [place] [facility] [address] [id number] [place] [address] Oct, [facility] [place] [facility] [address] [id number] [place] [address] Oct, [facility] [place] [facility] [address] [id number] [place] [address] Oct, [facility] [address] [id number] [place] [address] Oct, [facility] [place] [facility] [address] [id number] [place] [address] Oct, [facility] [place] [facility] [address] [id number] [place] [address] Sep, [facility] [place] [facility] [address] [id number] [place] [address] Sep, [facility] [place] [facility] [address] [id number] [place] [address] Sep, [facility] [place] [facility] [address] [id number] [place] [address] Sep, [facility] [place] [facility] [address] [id number] [place] [address] Aug, [facility] [place] [facility] [address] [id number] [place] [address] Aug, [facility] [place] [facility] [address] [id number] [place] [address] Aug, [facility] [place] [facility] [address] [id number] [place] [address] 07 Aug, 2012 [facility] [address] [id number] [place] [address] 19 Jun, 2012 [facility] [place] [facility] [address] [id number] [place] [address] 18 Jun, 2012 [facility] [place] [facility] [address] [id number] [place] [address] 17 Jun, 2012 [facility] [place] [facility] [address] [id number] [place] [address] 17 Jun, 2012 [facility] [address] [id number] [place] [address] May, [facility] [place] [facility] [address] [id number] [place] [address] 18 May, 2012 [facility] [place] [facility] [address] [id number] [place] [address] 18 May, 2012 [facility] [address] [id number] [place] [address] 13 May, 2012 [facility] [place] [facility] [address] [id number] [place] [address] 11 May, 2012 [facility] [address] [id number] [place] [address] 04 May, 2012 [facility] [place] [facility] [address] [id number] [place] [address] Apr, [facility] [place] [facility] [address] [id number] [place] [address] Apr, [facility] [place] [facility] [address] [id number] [place] [address] Apr, [facility] [place] [facility] [address] [id number] [place] [address] Apr, [facility] [place] [facility] [address] [id number] [place] [address] 19 Apr, 2012 [facility] [address] [id number] [place] [address] 20 Feb, 2012 [facility] [place] [facility] [address] [id number] [place] [address] 20 Feb, 2012 [facility] [place] [facility] [address] [id number] [place] [address] 19 Feb, 2012 [facility] [place] [facility] [address] [id number] [place] [address] 19 Feb, 2012 [facility] [address] [id number] [place] [address] 19 Feb, 2012 [facility] [place] [facility] [address] [id number] [place] [address] 19 Feb, 2012 [facility] [place] [facility] [address] [id number] [place] [address] 19 Feb, 2012 [facility] [place] [facility] [address] [id number] [place] [address] 19 Feb, 2012 [facility] [place] [facility] [address] [id number] [place] [address] 14 Feb, 2012 [facility] [place] [facility] [address] [id number] [place] [address] 14 Feb, 2012 [facility] [place] [facility] [address] [id number] [place] [address] 13 Feb, 2012 [facility] [place] [facility] [address] [id number] [place] [address] 13 Feb, 2012 [facility] [place] [facility] [address] [id number] [place] [address] 12 Feb, 2012 [facility] [place] [facility] [address] [id number] [place] [address] 12 Feb, 2012 [facility] [place] [facility] [address] [id number] [place] [address] 12 Feb, 2012 [facility] [place] [facility] [address] [id number] [place] [address] Feb, [facility] [address] [id number] [place] [address] Feb, [facility] [place] [facility] [address] [id number] [place] [address] Feb, [facility] [address] [id number] [place] [address] Feb, [facility] [place] [facility] [address] [id number] [place] [address] Feb, [facility] [address] [id number] [place] [address] Feb, [facility] [address] [id number] [place] [address] Feb, [facility] [address] [id number] [place] [address] Feb, [facility] [address] [id number] [place] [address] Feb, [facility] [place] [facility] [address] [id number] [place] [address] Feb, [facility] [address] [id number] [place] [address] Feb, [facility] [place] [facility] [address] [id number] [place] [address] Jan, [facility] [place] [facility] [address] [id number] [place] [address] Jan, [facility] [place] [facility] [address] [id number] [place] [address] Dec, [facility] [place] [facility] [address] [id number] [place] [address] Dec, [facility] [place] [facility] [address] [id number] [place] [address] Dec, [facility] [place] [facility] [address] [id number] [place] [address] 17 Dec, 2011 [facility] [place] [facility] [address] [id number] [place] [address] 26 Nov, 2011 [facility] [place] [facility] [address] [id number] [place] [address] 12 Nov, 2011 [facility] [place] [facility] [address] [id number] [place] [address] 06 Nov, 2011 [facility] [place] [facility] [address] [id number] [place] [address] 04 Nov, 2011 [facility] [place] [facility] [address] [id number] [place] [address] Oct, [facility] [place] [facility] [address] [id number] [place] [address] Oct, [facility] [place] [facility] [address] [id number] [place] [address] Sep, [facility] [place] [facility] [address] [id number] [place] [address] Sep, [facility] [place] [facility] [address] [id number], [place] [address] Sep, [facility] [place] [facility] [address] [id number] [place] [address] Aug, [facility] [place] [facility] [address] [id number], [place] [address] Aug, [facility] [place] [facility] [address] [id number] [place] [address] 14 Aug, 2011 [facility] [place] [facility] [address] [id number], [place] [address] 13 Aug, 2011 [facility] [place] [facility] [address] [id number], [place] [address] 13 Aug, 2011 [facility] [place] [facility] [address] [id number], [place] [address] July, [facility] [address] [id number] [place] [address] July, [facility] [address] [id number] [place] [address] July, [facility] [address] [id number] [place] [address] July, [facility] [address] [id number] [place] [address] July, [facility] [address] [id number] [place] [address] Jun, [facility] [address] [id number] [place] [address] May, [facility] [address] [id number] [place] [address] 16 Apr, 2011 [facility] [address] [id number] [place] [address] Apr, [facility] [address] [id number] [place] [address] Apr, [facility] [address] [id number] [place] [address] Mar, [facility] [address] [id number] [place] [address] Mar, [facility] [place] [facility] [address] [id number] [place] [address] Mar, [facility] [place] [facility] [address] [id number] [place] [address] Mar, [facility] [place] [facility] [address] [id number] [place] [address] Mar, [facility] [place] [facility] [address] [id number] [place] [address] Mar, [facility] [place] [facility] [address] [id number] [place] [address] Mar, [facility] [place] [facility] [address] [id number] [place] [address] Mar, [facility] [place] [facility] [address] [id number] [place] [address] Feb, [facility] [place] [facility] [address] [id number] [place] [address] Feb, [facility] [place] [facility] [address] [id number] [place] [address] Feb, [facility] [place] [facility] [address] [id number] [place] [address] Feb, [facility] [place] [facility] [address] [id number] [place] [address] Feb, [facility] [place] [facility] [address] [id number] [place] [address] Jan, [facility] [place] [facility] [address] [id number] [place] [address] Jan, [facility] [place] [facility] [address] [id number] [place] [address] Jan, [facility] [place] [facility] [address] [id number] [place] [address] Jan, [facility] [place] [facility] [address] [id number] [place] [address] Dec, [facility] [place] [facility] [address] [id number] [place] [address] Dec, [facility] [place] [facility] [address] [id number] [place] [address] Sep, [facility] [place] [facility] [address] [id number] [place] [address] July, [facility] [place] [facility] [address] [id number], [place] [address] Apr, [facility] [address] [facility] [id number], [place] [address] Mar, [facility] [address] [facility] [id number], [place] [address] Feb, [facility] [address] [facility] [id number], [place] [address] Feb, [facility] [address] [facility] [id number], [place] [address] Feb, [facility] [address] [facility] [id number], [place] [address] Feb, [facility] [address] [facility] [id number], [place] [address] Feb, [facility] [id number], [place] [address] Feb, [facility] [id number], [place] [address] Feb, [facility] [address] [id number], [place] [address] Dec, [facility] [id number], [place] [address] Jan, [facility] [address] [id number], [place] [address] Apr, IMMUNIZATIONS No Known Immunizations SOCIAL HISTORY Never Assessed REASON FOR VISIT Eye Exam PLAN OF CARE VITAL SIGNS MEDICATIONS Unknown [...] Hospitalization History Hyperglycemia 2012 Hospitalization History [facility] 11/28/2015-12/04/20152015 Hospitalization History Schizophrenia 09/26/16 Hospitalization History AMS, UTI, hyponatremia-[facility] 10/21/16 Hospitalization History stent placed 02/02/17 Hospitalization History stent placed 02/2017 Hospitalization History [facility]- Syncope, Dehydration and Hypotension. 06/08/2017
--- NOTE | 2018-09-05 13:05 | NUR ---
pt here with " ". pt alert [facility] 15. pt appears somewhat with general weakness like no energy. pt relates cough x 1 month ongoing and has seen the dr for it. no cough noted in er. pt also been c/o diarhea and said she passed out today. skin pale cool dry. mmd with slight skin tenting noted. pt with resp shallow nonlabored. no other acute sighns of dyspnea noted. pt reyna abd pain. denies n/v. pt appears dirty with stool. pt does c/o dyspnea and dizziness currently. pt does have hoarse voice. lungs cta with decreased aeration bilaterally. abd soft nondistended nonspecific tenderness to palpation all quads. neg pulsating massess noted. slight edema lower legs noted bilaterally. tele applied shows pace and capture 69. pt denies injury and pain from the syncope but does have old yellow bruising left upper leg. pt also holding right hip occasionally. no obvious injury right hip. done seing pt at 1311.
--- OUTSIDE RECORDS SUMMARY | 2018-09-05 13:11 | XMS REPORT | Continuity of Care Document ---
Author Organization Unknown Address Unknown Allergies Active Description Code Type Severity Reaction Onset Reported/Identified Relationship to Patient Clinical Status Yes corn [id number] Drug Allergy Unknown N/A 02/07/2010 Yes [place] Food Allergy N/A N/A 07/30/2011 Yes Pork Food Allergy N/A N/A 07/30/2011 Yes [place] Food Allergy N/A N/A 07/30/2011 Yes yeast Food Allergy N/A N/A 07/30/2011 Yes [place] Food Allergy 07/30/2011 Yes Pork Food Allergy 07/30/2011 Yes [place] Food Allergy 07/30/2011 Yes yeast Food Allergy 07/30/2011 Yes CORN Food Allergy N/A N/A 06/23/2012 Yes CORN Food Allergy 06/23/2012 Yes Bleach (Sodium Hypochlorite) [id number] Drug Allergy Unknown N/A 09/25/2016 Yes perfume [id number] Drug Allergy Unknown N/A 09/25/2016 Medications There is no data. Problems Date Dx Coded Attending Type Code Diagnosis Diagnosed By WOOD CALDERON APRN 272.4 HYPERLIPIDEMIA WOOD CALDERON APRN 296.40 BIPOLAR I DISORDER, MOST RECENT EPISODE, MANIC WOOD CALDERON APRN 296.80 BIPOLAR DISORDER NOS WOOD CALDERON APRN 296.90 EPISODIC MOOD DISORDERS WOOD CALDERON APRN 300.00 anxiety WOOD CALDERON APRN 300.4 DYSTHYMIC DISORDER (DEPRESSIVE NEUROSIS) WOOD CALDERON APRN 307.47 NIGHTMARE DISORDER WOOD CALDERON APRN 425.4 CARDIOMYOPATHY YUMIKO RADIOLOGY RN, WOOD S 427.9 RHYTHM DISORDER YUMIKO RADIOLOGY RN WOOD S 455.6 HEMORRHOIDS YUMIKO RADIOLOGY RNELWOOD S 578.1 red blood in bowel movement (hematochezia) YUMIKO RADIOLOGY RNELWOOD S 625.9 pelvic pain YUMIKO RADIOLOGY RNELWOOD S 787.91 diarrhea YUMIKO RADIOLOGY RNELWOOD S 796.2 Blood Pressure Isolated Elevated YUMIKO RADIOLOGY RN WOOD S V58.69 taking high-risk medication YUMIKO RADIOLOGY RNELWOOD S V65.49 Self-Care Education - Need To Report Postmenopausal Bleeding WOOD CALDERON APRN S V76.10 visit for: screening exam malignant neoplasm breast BOONE IRAHETA DO K 272.4 HYPERLIPIDEMIA MARBIN IRAHETA DOA K 296.40 BIPOLAR I DISORDER, MOST RECENT EPISODE, MANIC MYRTLE SPICER BOONE K 296.80 BIPOLAR DISORDER NOS MYRTLE SPICER BOONE K 296.90 EPISODIC MOOD DISORDERS MYRTLE SPICER BOONE K 300.00 anxiety MYRTLE SPICER BOONE K 300.4 DYSTHYMIC DISORDER (DEPRESSIVE NEUROSIS) MYRTLE SPICER BOONE K 307.47 NIGHTMARE DISORDER MYRTLE SPICER BOONE K 425.4 CARDIOMYOPATHY MYRTLE SPICER BOONE K 427.9 RHYTHM DISORDER MYRTLE SPICER BOONE K 455.6 HEMORRHOIDS MYRTLE SPICER BOONE K 578.1 red blood in bowel movement (hematochezia) MYRTLE SPICER BOONE K 625.9 pelvic pain MYRTLE SPICER BOONE K 787.91 diarrhea MYRTLE SPICER BOONE K 796.2 Blood Pressure Isolated Elevated MYRTLE SPICER BOONE K V58.69 taking high-risk medication BOONE IRAHETA DO V65.49 Self-Care Education - Need To Report Postmenopausal Bleeding BOONE IRAHETA DO V76.10 visit for: screening exam malignant neoplasm breast MADL RADIOLOGY RN, MIGUEL L 272.4 HYPERLIPIDEMIA MADL RADIOLOGY RN, MIGUEL L 296.40 BIPOLAR I DISORDER, MOST RECENT EPISODE, MANIC MADL RADIOLOGY RN, MIGUEL L 296.80 BIPOLAR DISORDER NOS MADL RADIOLOGY RN, MIGUEL L 296.90 EPISODIC MOOD DISORDERS MADL RADIOLOGY RN, MIGUEL L 300.00 anxiety MADL RADIOLOGY RN, MIGUEL L 300.4 DYSTHYMIC DISORDER (DEPRESSIVE NEUROSIS) MADL RADIOLOGY RN, MIGUEL L 307.47 NIGHTMARE DISORDER MADL RADIOLOGY RN, MIGUEL L 425.4 CARDIOMYOPATHY MADL RADIOLOGY RN, IMGUEL L 427.9 RHYTHM DISORDER MADL RADIOLOGY RN, MIGUEL L 455.6 HEMORRHOIDS MADL RADIOLOGY RN, MIGUEL L 578.1 red blood in bowel movement (hematochezia) MADL RADIOLOGY RN, MIGUEL L 625.9 pelvic pain MADL RADIOLOGY RN, MIGUEL L 787.91 diarrhea MADL RADIOLOGY RN, MIGUEL L 796.2 Blood Pressure Isolated Elevated MADL RADIOLOGY RN, MIGUEL L V58.69 taking high-risk medication MADL RADIOLOGY RN, MIGUEL L V65.49 Self-Care Education - Need To Report Postmenopausal Bleeding MADL RADIOLOGY RN, MIGUEL L V76.10 visit for: screening exam malignant neoplasm breast CARLITA WAITE MD 272.4 HYPERLIPIDEMIA CARLITA WAITE MD 296.40 BIPOLAR I DISORDER, MOST RECENT EPISODE, MANIC CARLITA WAITE MD 296.80 BIPOLAR DISORDER NOS RAVINDRA GLASER, CARLITA 296.90 EPISODIC MOOD DISORDERS RAVINDRA GLASER, CARLITA 300.00 anxiety RAVINDRA GLASER, CARLITA 300.4 DYSTHYMIC DISORDER (DEPRESSIVE NEUROSIS) RAVINDRA GLASER, CARLITA 307.47 NIGHTMARE DISORDER CARLITA WAITE MD 425.4 CARDIOMYOPATHY RAVINDRA GLASER, CARLITA 427.9 RHYTHM DISORDER RAVINDRA GLASER, CARLITA 455.6 HEMORRHOIDS RAVINDRA GLASER, CARLITA 578.1 red blood in bowel movement (hematochezia) CARLITA WAITE MD 625.9 pelvic pain RAVINDRA GLASER, CARLITA 787.91 [...] BIPOLAR I DISORDER, MOST RECENT EPISODE, MANIC DAYANA ESTRADA APRN R 296.80 BIPOLAR DISORDER NOS JOSÉ ESTRADA APRNRICIA R 296.90 EPISODIC MOOD DISORDERS JOSÉ ESTRADA APRNRICIA R 300.00 anxiety JOSÉ ESTRADA APRNRICIA R 300.4 DYSTHYMIC DISORDER (DEPRESSIVE NEUROSIS) ALESHA ESTRADA APRNIA R 307.47 NIGHTMARE DISORDER JOSÉ ESTRADA APRNRICIA R 425.4 CARDIOMYOPATHY JOSÉ ESTRADA APRNRICIA R 427.9 RHYTHM DISORDER DAYANA ESTRADA APRN R 455.6 HEMORRHOIDS ESTRADA RADIOLOGY RN, DAYANA R 578.1 red blood in bowel movement (hematochezia) ESTRADA RADIOLOGY RN, DAYANA R 625.9 pelvic pain SEAN HAIRSTONN, DAYANA R 787.91 diarrhea SEAN RADIOLOGY RN, DAYANA R 796.2 Blood Pressure Isolated Elevated [...] for: screening exam malignant neoplasm breast 09/27/2007 KEN DO, CHIQUITA F 250.00 DIABETES MELLITUS POORLY CONTROLLED 09/27/2007 KEN SPICER, CHIQUITA F 401.1 ESSENTIAL HYPERTENSION BENIGN 09/27/2007 KEN SPICER, CHIQUITA F 553.3 HIATAL HERNIA 09/27/2007 KEN DOCHIQUITA F 616.10 VULVITIS 09/27/2007 YUMIKO RADIOLOGY RN, WOOD S 250.00 DIABETES MELLITUS POORLY CONTROLLED 09/27/2007 YUMIKO RADIOLOGY RN, WOOD S 401.1 ESSENTIAL HYPERTENSION BENIGN 09/27/2007 YUMIKO RADIOLOGY RN, WOOD S 553.3 HIATAL HERNIA 09/27/2007 YUMIKO RADIOLOGY RN, WOOD S 616.10 VULVITIS 09/27/2007 TRUNG PHD, ERNESTO A 250.00 DIABETES MELLITUS POORLY CONTROLLED 09/27/2007 TRUNG PHD, ERNESTO A 401.1 ESSENTIAL HYPERTENSION BENIGN 09/27/2007 TRUNG PHD, ERNESTO A 553.3 HIATAL HERNIA 09/27/2007 TRUNG PHD, ERNESTO A 616.10 VULVITIS 09/27/2007 IRAHETA DO, BOONE K 250.00 DIABETES MELLITUS POORLY CONTROLLED 09/27/2007 IRAHETA DO, BOONE K 401.1 ESSENTIAL HYPERTENSION BENIGN 09/27/2007 IRAHETA DO, BOONE K 553.3 HIATAL HERNIA 09/27/2007 IRAHETA DO, BOONE K 616.10 VULVITIS 09/27/2007 IRAHETA DO, BOONE K 250.00 DIABETES MELLITUS POORLY CONTROLLED 09/27/2007 IARHETA DO, BOONE K 401.1 ESSENTIAL HYPERTENSION BENIGN [...] HIATAL HERNIA 09/27/2007 616.10 VULVITIS 09/27/2007 IRAHETA DO BOONE K 250.00 DIABETES MELLITUS POORLY CONTROLLED 09/27/2007 IRAHETA DO BOONE K 401.1 ESSENTIAL HYPERTENSION BENIGN 09/27/2007 MYRTLE SPICER BOONE K 553.3 HIATAL HERNIA 09/27/2007 MYRTLE SPICER BOONE K 616.10 VULVITIS 09/27/2007 YUMIKO MORRIS WOOD S 250.00 DIABETES MELLITUS POORLY CONTROLLED 09/27/2007 YUMIKO MORRIS WOOD S 401.1 ESSENTIAL HYPERTENSION BENIGN 09/27/2007 YUMIKO MORRIS WOOD S 553.3 HIATAL HERNIA 09/27/2007 YUMIKO RADIOLOGY RN, WOOD S 616.10 VULVITIS 09/27/2007 IRAHE[place] DO BOONE K 250.00 DIABETES MELLITUS POORLY CONTROLLED 09/27/2007 MYRTLE SPICER BOONE K 401.1 ESSENTIAL HYPERTENSION BENIGN 09/27/2007 IRAHE[place] DO BOONE K 553.3 HIATAL HERNIA 09/27/2007 IRAHE[place] DO BOONE K 616.10 VULVITIS 09/27/2007 MADL RADIOLOGY RN, MIGUEL L 250.00 DIABETES MELLITUS POORLY CONTROLLED 09/27/2007 MADJaylen RADIOLOGY RN, MIGUEL L 401.1 ESSENTIAL HYPERTENSION BENIGN 09/27/2007 MADL RADIOLOGY RN, MIGUEL L 553.3 HIATAL HERNIA 09/27/2007 MADL RADIOLOGY RN, MIGUEL L 616.10 VULVITIS 09/27/2007 CARLITA WAITE MD 250.00 DIABETES MELLITUS POORLY CONTROLLED 09/27/2007 CARLITA WAITE MD 401.1 ESSENTIAL HYPERTENSION BENIGN 09/27/2007 RAVINDRA GLASER, CARLITA 553.3 HIATAL HERNIA 09/27/2007 CARLITA WAITE MD 616.10 VULVITIS 09/27/2007 SEAN RADIOLOGY RN, DAYANA R 250.00 DIABETES MELLITUS POORLY CONTROLLED 09/27/2007 SEAN RADIOLOGY RN, DAYANA R 401.1 ESSENTIAL HYPERTENSION BENIGN 09/27/2007 SEAN RADIOLOGY RN, DAYANA R 553.3 HIATAL HERNIA 09/27/2007 SEAN RADIOLOGY RN, DAYANA R 616.10 VULVITIS 09/27/2007 ESTEE RADIOLOGY RN, KATHY R 250.00 DIABETES MELLITUS POORLY CONTROLLED 09/27/2007 ESTEE RADIOLOGY RN, KATHY R 401.1 ESSENTIAL HYPERTENSION BENIGN 09/27/2007 ESTEE RADIOLOGY RN, KATHY R 553.3 HIATAL HERNIA 09/27/2007 ESTEE RADIOLOGY RN, KATHY R 616.10 VULVITIS 11/10/2007 CHIQUITA ROGERS [...] Pelvic Exam (Internal) 11/22/2007 V72.31 Pelvic Exam (Internal) 11/22/2007 V72.31 Pelvic Exam (Internal) 11/22/2007 V72.31 Pelvic Exam (Internal) 11/22/2007 V72.31 Pelvic Exam (Internal) 11/22/2007 BOONE IRAHETA DO V72.31 Pelvic Exam (Internal) 11/22/2007 WOOD CALDERON APRN V72.31 Pelvic Exam (Internal) 11/22/2007 BOONE IRAHETA DO V72.31 Pelvic Exam (Internal) 11/22/2007 LOUANN RADIOLOGY RN, MIGUEL York V72.31 Pelvic Exam (Internal) 11/22/2007 CARLITA WAITE MD V72.31 Pelvic Exam (Internal) 11/22/2007 SEAN RADIOLOGY RN, DAYANA Almonte V72.31 Pelvic Exam (Internal) 11/22/2007 ESTEE RADIOLOGY RNKATHY Rodriguez V72.31 Pelvic Exam (Internal) 04/22/2008 CHIQUITA ROGERS DO 250.02 DIABETES MELLITUS WITHOUT MENTION OF COMPLICATION TYPE II OR UNSPECIFIED TYPE UNCONTROLLED 04/22/2008 WOOD CALDERON APRN 250.02 DIABETES MELLITUS WITHOUT MENTION OF COMPLICATION TYPE II OR UNSPECIFIED TYPE UNCONTROLLED 04/22/2008 TRUNG PHD, ERNESTO Chatman 250.02 DIABETES MELLITUS WITHOUT MENTION [...] II OR UNSPECIFIED TYPE UNCONTROLLED 04/22/2008 IRAHETA DO, BOONE K 250.02 DIABETES MELLITUS WITHOUT MENTION OF COMPLICATION TYPE II OR UNSPECIFIED TYPE UNCONTROLLED 04/22/2008 MIGUEL LEW APRN 250.02 DIABETES MELLITUS WITHOUT MENTION OF COMPLICATION TYPE II OR UNSPECIFIED TYPE UNCONTROLLED 04/22/2008 RAVINDRA GLASER, CARLITA 250.02 DIABETES MELLITUS WITHOUT MENTION OF COMPLICATION TYPE II OR UNSPECIFIED TYPE UNCONTROLLED 04/22/2008 SEAN RADIOLOGY RNDAYANA Rodriguez R 250.02 DIABETES MELLITUS WITHOUT MENTION OF COMPLICATION TYPE II OR UNSPECIFIED TYPE UNCONTROLLED 04/22/2008 ESTEE RADIOLOGY RN, KATHY R 250.02 DIABETES MELLITUS WITHOUT MENTION OF COMPLICATION TYPE II OR UNSPECIFIED TYPE UNCONTROLLED 05/31/2008 CHIQUITA ROGERS DO 564.1 IRRITABLE BOWEL SYNDROME 05/31/2008 CHIQUITA ROGERS DO 786.2 cough 05/31/2008 WOOD CALDERON APRN S 564.1 IRRITABLE BOWEL SYNDROME 05/31/2008 WOOD CALDERON APRN S 786.2 cough 05/31/2008 TRUNG PHD, ERNESTO A 564.1 IRRITABLE BOWEL SYNDROME 05/31/2008 TRUNG PHD, ERNESTO A 786.2 cough 05/31/2008 IRAHETA DO BOONE K 564.1 IRRITABLE BOWEL SYNDROME 05/31/2008 IRAHETA DO BOONE K 786.2 cough 05/31/2008 IRAHETA DO, [...] DO, BOONE K 786.2 cough 05/31/2008 YUMIKO RADIOLOGY RN, WOOD S 564.1 IRRITABLE BOWEL SYNDROME 05/31/2008 YUMIKO MORRIS, WOOD S 786.2 cough 05/31/2008 MYRTLE SPICER BOONE K 564.1 IRRITABLE BOWEL SYNDROME 05/31/2008 IRAHETA DO BOONE K 786.2 cough 05/31/2008 MADJaylen MORRIS, MIGUEL L 564.1 IRRITABLE BOWEL SYNDROME 05/31/2008 LOUANN MORRIS, MIGUEL L 786.2 cough 05/31/2008 CARLITA WAITE MD 564.1 IRRITABLE BOWEL SYNDROME 05/31/2008 CARLITA WAITE MD 786.2 cough 05/31/2008 JOSÉ ESTRADA APRNRICIA R 564.1 IRRITABLE BOWEL SYNDROME 05/31/2008 JOSÉ ESTRADA APRNRICIA R 786.2 cough 05/31/2008 ESTEE MORRIS, KATHY R 564.1 IRRITABLE BOWEL SYNDROME 05/31/2008 ESTEE MORRIS, KATHY R 786.2 cough 07/06/2008 CHIQUITA ROGERS DO 079.99 VIRAL SYNDROME 07/06/2008 CHALO CALDERON APRNA S 079.99 VIRAL SYNDROME 07/06/2008 TRUNG PHD, ERNESTO Chatman 079.99 VIRAL SYNDROME 07/06/2008 BOONE IRAHETA DO K 079.99 VIRAL SYNDROME 07/06/2008 MARBIN IRAHETA DOA K 079.99 VIRAL SYNDROME 07/06/2008 BOONE IRAHETA DO K 079.99 VIRAL SYNDROME 07/06/2008 079.99 VIRAL SYNDROME 07/06/2008 079.99 VIRAL SYNDROME 07/06/2008 079.99 VIRAL SYNDROME 07/06/2008 079.99 VIRAL SYNDROME 07/06/2008 MARBIN IRAHETA DOA K 079.99 VIRAL SYNDROME 07/06/2008 EL CALDERON APRNNDA S 079.99 VIRAL SYNDROME 07/06/2008 MARBIN IRAHETA DOA K 079.99 VIRAL SYNDROME 07/06/2008 FRANCISCO LEW APRNA L 079.99 VIRAL SYNDROME 07/06/2008 CARLITA WAITE MD 079.99 VIRAL SYNDROME 07/06/2008 ALESHA ESTRADA APRNIA R 079.99 VIRAL SYNDROME 07/06/2008 ESTEE MORRIS KATHY R 079.99 VIRAL SYNDROME 01/09/2009 CHIQUITA ROGERS DO F 461.9 SINUSITIS ACUTE 01/09/2009 YUMIKO MORRIS, WOOD S 461.9 SINUSITIS ACUTE 01/09/2009 TRUNG JADE, ERNESTO Chatman 461.9 SINUSITIS ACUTE 01/09/2009 IRAHETA DOBOONE K 461.9 SINUSITIS ACUTE 01/09/2009 IRAHETA DO, BOONE K 461.9 SINUSITIS ACUTE 01/09/2009 IRAHETA DO, BOONE K 461.9 SINUSITIS ACUTE 01/09/2009 461.9 SINUSITIS ACUTE 01/09/2009 461.9 SINUSITIS ACUTE 01/09/2009 461.9 SINUSITIS ACUTE 01/09/2009 461.9 SINUSITIS ACUTE 01/09/2009 IRAHETA DO, BOONE K 461.9 SINUSITIS ACUTE 01/09/2009 YUMIKO MORRIS, WOOD S 461.9 SINUSITIS ACUTE 01/09/2009 IRAHETA DOBOONE K 461.9 SINUSITIS ACUTE 01/09/2009 LOUANN RADIOLOGY RN, MIGUEL L 461.9 SINUSITIS ACUTE 01/09/2009 CARLITA WAITE MD 461.9 SINUSITIS ACUTE 01/09/2009 SEAN RADIOLOGY RNDAYANA Rodriguez R 461.9 SINUSITIS ACUTE 01/09/2009 ESTEE RADIOLOGY RN, KATHY R 461.9 SINUSITIS ACUTE 06/09/2009 CHIQUITA ROGERS DO F 477.9 ALLERGIC RHINITIS 06/09/2009 CHIQUITA ROGERS DO F 729.5 foot pain (soft tissue) 06/09/2009 CHALO CALDERON APRNA S 477.9 ALLERGIC RHINITIS 06/09/2009 YUMIKO MORRIS, WOOD S 729.5 foot pain (soft tissue) 06/09/2009 TRUNG JADE, ERNESTO Chatman 477.9 ALLERGIC RHINITIS 06/09/2009 TRUNG JADE, ERNESTO Chatman 729.5 foot pain (soft tissue) 06/09/2009 BOONE IRAHETA DO K 477.9 ALLERGIC RHINITIS 06/09/2009 IRAHETA DOMARBINA K 729.5 foot pain (soft tissue) 06/09/2009 IRAHETA DOBOONE K 477.9 ALLERGIC RHINITIS 06/09/2009 IRAHETA DO BOONE K 729.5 foot pain (soft tissue) 06/09/2009 IRAHE[place] DO, BOONE K 477.9 ALLERGIC RHINITIS 06/09/2009 IRAHETA DO, BOONE K 729.5 foot pain (soft tissue) 06/09/2009 477.9 ALLERGIC RHINITIS 06/09/2009 729.5 foot pain (soft tissue) 06/09/2009 477.9 ALLERGIC RHINITIS 06/09/2009 729.5 foot pain (soft tissue) 06/09/2009 477.9 ALLERGIC RHINITIS 06/09/2009 729.5 foot pain (soft tissue) 06/09/2009 477.9 ALLERGIC RHINITIS 06/09/2009 729.5 foot pain (soft tissue) 06/09/2009 IRAHETA DO, BOONE K 477.9 ALLERGIC RHINITIS 06/09/2009 IRHAETA DO, BOONE K 729.5 foot pain (soft tissue) 06/09/2009 WOOD CALDERON APRN S 477.9 ALLERGIC RHINITIS 06/09/2009 CHALO CALDERON APRNA S 729.5 foot pain (soft tissue) 06/09/2009 IRAHETA DO, BOONE K 477.9 ALLERGIC RHINITIS 06/09/2009 IRAHE[place] DO, BOONE K 729.5 foot pain (soft tissue) 06/09/2009 MADJaylen MORRIS, MIGUEL L 477.9 ALLERGIC RHINITIS 06/09/2009 MADL RADIOLOGY RN, MIGUEL L 729.5 foot pain (soft tissue) 06/09/2009 CARLITA WAITE MD 477.9 ALLERGIC RHINITIS 06/09/2009 CARLITA WAITE MD 729.5 foot pain (soft tissue) 06/09/2009 SEAN MORRIS, DAYANA R 477.9 ALLERGIC RHINITIS 06/09/2009 SEAN MORRIS DAYANA R 729.5 foot pain (soft tissue) 06/09/2009 ESTEE HAIRSTONN, KATHY R 477.9 ALLERGIC RHINITIS 06/09/2009 ESTEE HAIRSTONN, KATHY R 729.5 foot pain (soft tissue) 07/07/2009 CHIQUITA ROGERS DO 461.1 SINUSITIS ACUTE FRONTAL 07/07/2009 WOOD CALDERON APRN S 461.1 SINUSITIS ACUTE FRONTAL 07/07/2009 TRUNG JADE, ERNESTO Chatman 461.1 SINUSITIS ACUTE FRONTAL 07/07/2009 BOONE IRAHETA DO K 461.1 SINUSITIS ACUTE FRONTAL 07/07/2009 MARBIN IRAHETA DOA K 461.1 SINUSITIS ACUTE FRONTAL 07/07/2009 MARBIN IRAHETA DOA K 461.1 SINUSITIS ACUTE FRONTAL 07/07/2009 461.1 SINUSITIS ACUTE FRONTAL 07/07/2009 461.1 SINUSITIS ACUTE FRONTAL 07/07/2009 461.1 SINUSITIS ACUTE FRONTAL 07/07/2009 461.1 SINUSITIS ACUTE FRONTAL 07/07/2009 MARBIN IRAHETA DOA K 461.1 SINUSITIS ACUTE FRONTAL 07/07/2009 WOOD CALDERON APRN 461.1 SINUSITIS ACUTE FRONTAL 07/07/2009 BOONE IRAHETA DO K 461.1 SINUSITIS ACUTE FRONTAL 07/07/2009 MIGUEL LEW APRN 461.1 SINUSITIS ACUTE FRONTAL 07/07/2009 RAVINDRA GLASER, CARLITA 461.1 SINUSITIS ACUTE FRONTAL 07/07/2009 SEAN RADIOLOGY RN, DAYANA R 461.1 SINUSITIS ACUTE FRONTAL 07/07/2009 ESTEE RADIOLOGY RNKATHY Rodriguez R 461.1 SINUSITIS ACUTE FRONTAL 07/09/2009 CHIQUITA [...] USE OF OTHER MEDICATIONS 07/09/2009 V58.69 LONG-TERM (CURRENT) USE OF OTHER MEDICATIONS 07/09/2009 V58.69 LONG-TERM (CURRENT) USE OF OTHER MEDICATIONS 07/09/2009 V58.69 LONG-TERM (CURRENT) USE OF OTHER MEDICATIONS 07/09/2009 V58.69 LONG-TERM (CURRENT) USE OF OTHER MEDICATIONS 07/09/2009 BOONE IRAHETA DO V58.69 LONG-TERM (CURRENT) USE OF OTHER MEDICATIONS 09/08/2009 WERDER DO, CHIQUITA F 078.19 WARTS FOOT RIGHT 09/08/2009 WERDER DO, CHIQUITA F 465.9 UPPER RESPIRATORY INFECTION 09/08/2009 YUMIKO HAIRSTONN WOOD S 078.19 WARTS FOOT RIGHT 09/08/2009 YUMIKO RADIOLOGY RN, WOOD S 465.9 UPPER RESPIRATORY INFECTION 09/08/2009 TRUNG PHD, ERNESTO A 078.19 WARTS FOOT RIGHT 09/08/2009 TRUNG PHD, ERNESTO A 465.9 UPPER RESPIRATORY INFECTION 09/08/2009 IRAHETA DO, BOONE K 078.19 WARTS FOOT RIGHT 09/08/2009 IRAHE[place] DO, BOONE K 465.9 UPPER RESPIRATORY INFECTION 09/08/2009 IRAHETA DO, BOONE K 078.19 WARTS FOOT RIGHT 09/08/2009 IRAHETA DO, BOONE K 465.9 UPPER RESPIRATORY INFECTION 09/08/2009 IRAHETA DO, [...] K 465.9 UPPER RESPIRATORY INFECTION 09/08/2009 YUMIKO RADIOLOGY RN, WOOD S 078.19 WARTS FOOT RIGHT 09/08/2009 YUMIKO MORRIS, WOOD S 465.9 UPPER RESPIRATORY INFECTION 09/08/2009 IRAHETA DO, BOONE K 078.19 WARTS FOOT RIGHT 09/08/2009 IRAHETA DO, BOONE K 465.9 UPPER RESPIRATORY INFECTION 09/08/2009 MADL RADIOLOGY RN, MIGUEL L 078.19 WARTS FOOT RIGHT 09/08/2009 MADL RADIOLOGY RN, MIGUEL L 465.9 UPPER RESPIRATORY INFECTION 09/08/2009 CARLITA WAITE MD 078.19 WARTS FOOT RIGHT 09/08/2009 CARLITA WAITE MD 465.9 UPPER RESPIRATORY INFECTION 09/08/2009 SEAN RADIOLOGY RN, DAYANA R 078.19 WARTS FOOT RIGHT 09/08/2009 SEAN MORRIS, DAYANA R 465.9 UPPER RESPIRATORY INFECTION 09/08/2009 ESTEE RADIOLOGY RN, KATHY R 078.19 WARTS FOOT RIGHT 09/08/2009 ESTEE RADIOLOGY RN, KATHY R 465.9 UPPER RESPIRATORY INFECTION 10/17/2009 CHIQUITA ROGERS DO 296.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 10/17/2009 WOOD CALDERON APRN 296.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 10/17/2009 TRUNG JADE, ERNESTO Chatman 296.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 10/17/2009 IRAHETA DO, BOONE K 296.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 10/17/2009 IRAHETA DO, BOONE K 296.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 10/17/2009 IRAHE[place] DO, BOONE K 296.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 10/17/2009 296.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 10/17/2009 296.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 10/17/2009 296.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 10/17/2009 296.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 10/17/2009 IRAHETA DO, BOONE K 296.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 02/12/2010 [...] ROGERS DO 461.8 ACUTE PANSINUSITIS 02/25/2010 YUMIKO RADIOLOGY RN, WOOD S 427.89 SINUS TACHYCARDIA 02/25/2010 YUMIKO RADIOLOGY RN, WOOD S 427.9 CARDIAC DYSRHYTHMIA UNSPECIFIED 02/25/2010 YUMIKO RADIOLOGY RN, WOOD S 461.8 ACUTE PANSINUSITIS 02/25/2010 [facility], ERNESTO A 427.89 SINUS TACHYCARDIA 02/25/2010 [facility] ER[facility] A 427.9 CARDIAC DYSRHYTHMIA UNSPECIFIED 02/25/2010 [facility] ER[facility] A 461.8 ACUTE PANSINUSITIS 02/25/2010 [...] DO, BOONE K 461.8 ACUTE PANSINUSITIS 02/25/2010 YUMIKO MORRIS, WOOD S 427.89 SINUS TACHYCARDIA 02/25/2010 YUMIKO RADIOLOGY RN, WOOD S 461.8 ACUTE PANSINUSITIS 02/25/2010 [place] DO, BOONE K 427.89 SINUS TACHYCARDIA 02/25/2010 [place] DO, BOONE K 461.8 ACUTE PANSINUSITIS 02/25/2010 MADL RADIOLOGY RN, MIGUEL L 427.89 SINUS TACHYCARDIA 02/25/2010 MADL RADIOLOGY RN, MIGUEL L 461.8 ACUTE PANSINUSITIS 02/25/2010 CARLITA WAITE MD 427.89 SINUS TACHYCARDIA 02/25/2010 CARLITA WAITE MD 461.8 ACUTE PANSINUSITIS 02/25/2010 SEAN MORRIS, DAYANA R 427.89 SINUS TACHYCARDIA 02/25/2010 SEAN MORRIS DAYANA R 461.8 ACUTE PANSINUSITIS 02/25/2010 ESTEE MORRIS, KATHY R 427.89 SINUS TACHYCARDIA 02/25/2010 ESTEE MORRIS [...] DO F 428.0 CONGESTIVE HEART FAILURE 03/28/2010 CHIQUITA ROGERS DO 535.50 GASTRITIS 03/28/2010 WOOD CALDERON APRN S 428.0 CONGESTIVE HEART FAILURE 03/28/2010 WOOD CALDERON APRN S 535.50 GASTRITIS 03/28/2010 TRUNG JADE, ERNESTO Chatman 428.0 CONGESTIVE HEART FAILURE 03/28/2010 TRUNG JADE, ERNESTO A 535.50 GASTRITIS 03/28/2010 IRAHE[place] DO, BOONE K [...] IRAHETA DO, BOONE K 535.50 GASTRITIS 03/28/2010 CHALO CALDERON APRNA S 428.0 CONGESTIVE HEART FAILURE 03/28/2010 CHALO CALDERON APRNA S 535.50 GASTRITIS 03/28/2010 IRAHETA DO, BOONE K 428.0 CONGESTIVE HEART FAILURE 03/28/2010 IRAHETA DO, BONOE K 535.50 GASTRITIS 03/28/2010 LOUANN MORRIS MIGUEL L 428.0 CONGESTIVE HEART FAILURE 03/28/2010 LOUANN MORRIS MIGUEL L 535.50 GASTRITIS 03/28/2010 CARLITA WAITE MD 428.0 CONGESTIVE HEART FAILURE 03/28/2010 CARLITA WAITE MD 535.50 GASTRITIS 03/28/2010 SEAN MORRIS DAYANA R 428.0 CONGESTIVE HEART FAILURE 03/28/2010 JOSÉ ESTRADA APRNRICIA R 535.50 GASTRITIS 03/28/2010 ESTEE MORRIS KATHY [...] JADE, ERNESTO Chatman 787.02 nausea 04/19/2010 IRAHETA DO, BOONE K 693.0 DERMATITIS DUE TO DRUGS AND MEDICINES 04/19/2010 IRAHETA DO BOONE K 787.02 nausea 04/19/2010 IRAHETA DO, BOONE K 693.0 DERMATITIS DUE TO DRUGS AND MEDICINES 04/19/2010 IRAHETA DO, BOONE K 787.02 nausea 04/19/2010 IRAHETA DO, BOONE K 693.0 DERMATITIS DUE TO DRUGS AND MEDICINES 04/19/2010 IRAHETA DO, BOONE K 787.02 nausea 04/19/2010 693.0 DERMATITIS DUE TO DRUGS AND MEDICINES 04/19/2010 787.02 nausea 04/19/2010 693.0 DERMATITIS DUE TO DRUGS AND MEDICINES 04/19/2010 787.02 nausea 04/19/2010 693.0 DERMATITIS DUE TO DRUGS AND MEDICINES 04/19/2010 787.02 nausea 04/19/2010 693.0 DERMATITIS DUE TO DRUGS AND MEDICINES 04/19/2010 787.02 nausea 04/19/2010 IRAHETA DO, BOONE K 693.0 DERMATITIS DUE TO DRUGS AND MEDICINES 04/19/2010 IRAHETA DO BOONE K 787.02 nausea 04/19/2010 WOOD CALDERON APRN S 693.0 DERMATITIS DUE TO DRUGS AND MEDICINES 04/19/2010 WOOD CALDERON APRN S 787.02 nausea 04/19/2010 MYTRLE SPICER BOONE K 693.0 DERMATITIS DUE TO DRUGS AND MEDICINES 04/19/2010 IRAHETA DO BOONE K 787.02 nausea 04/19/2010 MIGUEL LEW APRN L 693.0 DERMATITIS DUE TO DRUGS AND MEDICINES 04/19/2010 MIGUEL LEW APRN L 787.02 nausea 04/19/2010 CARLITA WAITE MD 693.0 DERMATITIS DUE TO DRUGS AND MEDICINES 04/19/2010 CARLITA WAITE MD 787.02 nausea 04/19/2010 DAYANA ESTRADA APRN 693.0 DERMATITIS DUE TO DRUGS AND MEDICINES 04/19/2010 DAYANA ESTRADA APRN 787.02 nausea 04/19/2010 ESTEE ARTUROKATHY R 693.0 DERMATITIS DUE TO DRUGS AND MEDICINES 04/19/2010 ESTEE MORRIS KATHY R 787.02 nausea 05/02/2010 Ot 250.00 05/02/2010 [...] DO 729.1 muscle aches, generalized (myalgias) 07/25/2010 MYRTLE SPICER BOONE K 780.79 FATIGUE 07/25/2010 729.1 muscle [...] WOOD CALDERON APRN S 780.79 FATIGUE 07/25/2010 MARBIN IRAHETA DOA K 729.1 muscle aches, generalized (myalgias) 07/25/2010 IRAHETA DO BOONE K 780.79 FATIGUE 07/25/2010 LOUANN MORRIS MIGUEL L 729.1 muscle aches, generalized (myalgias) 07/25/2010 LOUANN MORRIS MIGUEL L 780.79 FATIGUE 07/25/2010 CARLITA WAITE MD 729.1 muscle aches, generalized (myalgias) 07/25/2010 CARLITA WAITE MD 780.79 FATIGUE 07/25/2010 SEAN MORRIS DAYANA R 729.1 muscle aches, generalized (myalgias) 07/25/2010 SEAN MORRIS DAYANA R 780.79 FATIGUE 07/25/2010 ESTEE MORRIS, KATHY R 729.1 muscle aches, generalized (myalgias) 07/25/2010 ESTEE MORRIS KATHY R 780.79 FATIGUE 10/14/2010 CHIQUITA ROGERS DO F 276.7 HYPERKALEMIA 10/14/2010 CHIQUITA ROGERS DO F 593.9 RENAL INSUFFICIENCY 10/14/2010 WOOD CALDERON APRN S 276.7 HYPERKALEMIA 10/14/2010 YUMIKO RADIOLOGY RN, WOOD S 593.9 RENAL INSUFFICIENCY 10/14/2010 TRUNG PHD, [...] BOONE K 593.9 RENAL INSUFFICIENCY 10/14/2010 YUMIKO HAIRSTONN, WOOD S 276.7 HYPERKALEMIA 10/14/2010 YUMIKO RADIOLOGY RN, WOOD S 593.9 RENAL INSUFFICIENCY 10/14/2010 IRAHETA DO, BOONE K 276.7 HYPERKALEMIA 10/14/2010 IRAHETA DO, BOONE K 593.9 RENAL INSUFFICIENCY 10/14/2010 MADL RADIOLOGY RN, MIGUEL L 276.7 HYPERKALEMIA 10/14/2010 MADL RADIOLOGY RN, MIGUEL L 593.9 RENAL INSUFFICIENCY 10/14/2010 CARLITA WAITE MD 276.7 HYPERKALEMIA 10/14/2010 CARLITA WAITE MD 593.9 RENAL INSUFFICIENCY 10/14/2010 SEAN MORRIS, DAYANA R 276.7 HYPERKALEMIA 10/14/2010 SEAN MORRIS, DAYANA R 593.9 RENAL INSUFFICIENCY 10/14/2010 KATHY FONTANEZ APRN R 276.7 HYPERKALEMIA 10/14/2010 KATHY FONTANEZ APRN 593.9 RENAL INSUFFICIENCY 12/02/2010 Ot 250.00 12/02/2010 Ot 785.1 02/17/2011 CHIQUITA ROGERS DO 296.40 MO BIPOLAR MANIC UNSPECIFIED 02/17/2011 WOOD CALDERON APRN 296.40 MO BIPOLAR MANIC UNSPECIFIED 02/17/2011 TRUNG [...] UNSPECIFIED 04/16/2011 Ot 414.01 CORONARY ATHEROSCLEROSIS OF [place] CORON 04/16/2011 Ot 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 04/21/2011 CHIQUITA ROGERS DO 307.47 SI DYSSOMNIA NOS 04/21/2011 WOOD CALDERON APRN 307.47 SI DYSSOMNIA NOS 04/21/2011 TRUNG JADE, [...] CORONARY ATHEROSCLEROSIS OF UNSPECIFIED TYPE OF VESSEL [place] OR GRAFT 07/30/2011 CHIQUITA ROGERS DO V45.81 POSTSURGICAL AORTOCORONARY BYPASS STATUS 07/30/2011 WOOD CALDERON APRN 272.4 DYSLIPIDEMIA 07/30/2011 WOOD CALDERON APRN S 414.00 CORONARY ATHEROSCLEROSIS OF UNSPECIFIED TYPE OF VESSEL [place] OR GRAFT 07/30/2011 WOOD CALDERON APRN V45.81 POSTSURGICAL AORTOCORONARY BYPASS STATUS 07/30/2011 ERNESTO NINO PHD 272.4 DYSLIPIDEMIA 07/30/2011 ERNESTO NINO PHD 414.00 CORONARY ATHEROSCLEROSIS OF UNSPECIFIED TYPE OF VESSEL [place] OR GRAFT 07/30/2011 ERNESTO NINO PHD V45.81 Postsurgical Aortocoronary Bypass Status 07/30/2011 BOONE IRAHETA DO K 272.4 DYSLIPIDEMIA 07/30/2011 MARBIN IRAHETA DOA K 414.00 CORONARY ATHEROSCLEROSIS OF UNSPECIFIED TYPE OF VESSEL [place] OR GRAFT 07/30/2011 BOONE IRAHETA DO K V45.81 Postsurgical Aortocoronary Bypass Status 07/30/2011 MARBIN IRAHETA DOA K 272.4 DYSLIPIDEMIA 07/30/2011 MYRTLE SPICER BOONE K 414.00 CORONARY ATHEROSCLEROSIS OF UNSPECIFIED TYPE OF VESSEL [place] OR GRAFT 07/30/2011 BOONE IRAHETA DO K V45.81 Postsurgical Aortocoronary Bypass Status 07/30/2011 MYRTLE BOONE SPICER K 272.4 DYSLIPIDEMIA 07/30/2011 IRAHETA MARBIN SPICERA K 414.00 CORONARY ATHEROSCLEROSIS OF UNSPECIFIED TYPE OF VESSEL [place] OR GRAFT 07/30/2011 MYRTLE BOONE SPICER K V45.81 Postsurgical Aortocoronary Bypass Status 07/30/2011 272.4 DYSLIPIDEMIA 07/30/2011 414.00 CORONARY ATHEROSCLEROSIS OF UNSPECIFIED TYPE OF VESSEL [place] OR GRAFT 07/30/2011 V45.81 Postsurgical Aortocoronary Bypass Status 07/30/2011 272.4 DYSLIPIDEMIA 07/30/2011 414.00 CORONARY ATHEROSCLEROSIS OF UNSPECIFIED TYPE OF VESSEL [place] OR GRAFT 07/30/2011 V45.81 Postsurgical Aortocoronary Bypass Status 07/30/2011 272.4 DYSLIPIDEMIA 07/30/2011 414.00 CORONARY ATHEROSCLEROSIS OF UNSPECIFIED TYPE OF VESSEL [place] OR GRAFT 07/30/2011 V45.81 Postsurgical Aortocoronary Bypass Status 07/30/2011 272.4 DYSLIPIDEMIA 07/30/2011 414.00 CORONARY ATHEROSCLEROSIS OF UNSPECIFIED TYPE OF VESSEL [place] OR GRAFT 07/30/2011 V45.81 Postsurgical Aortocoronary Bypass Status 07/30/2011 MYRTLE BOONE SPICER K 272.4 DYSLIPIDEMIA 07/30/2011 IRAHETA BOONE SPICER K 414.00 CORONARY ATHEROSCLEROSIS OF UNSPECIFIED TYPE OF VESSEL [place] OR GRAFT 07/30/2011 IRAHETA BOONE SPICER K V45.81 Postsurgical Aortocoronary Bypass Status 07/30/2011 WOOD CALDERON APRN S 414.00 CORONARY ARTERY DISEASE 07/30/2011 WOOD CALDERON APRN S V45.81 Postsurgical Aortocoronary Bypass Status 07/30/2011 IRAHETA BOONE SPICER K 414.00 CORONARY ARTERY DISEASE 07/30/2011 IRAHETA BOONE SPICER K V45.81 Postsurgical Aortocoronary Bypass Status 07/30/2011 MIGUEL LEW APRN L 414.00 CORONARY ARTERY DISEASE 07/30/2011 FRANCISCO LEW APRNA L V45.81 Postsurgical Aortocoronary Bypass Status 07/30/2011 CARLITA WAITE MD 414.00 CORONARY ARTERY DISEASE 07/30/2011 CARLITA WAITE MD V45.81 Postsurgical Aortocoronary Bypass Status 07/30/2011 ESTRADA RADIOLOGY RN, DAYANA R 414.00 CORONARY ARTERY DISEASE 07/30/2011 SEAN RADIOLOGY RNALESHAIA R V45.81 Postsurgical Aortocoronary Bypass Status 07/30/2011 ESTEE MORRISELOYKATHY R 414.00 CORONARY ARTERY DISEASE 07/30/2011 ESTEE HAIRSTONN KATHY R V45.81 Postsurgical Aortocoronary Bypass Status [...] Respiratory Infections Of Unspecified Site 10/30/2011 IRAHETA DO, BOONE K 465.9 Acute Upper Respiratory Infections Of Unspecified Site 10/30/2011 IRAHETA DO, BOONE K 465.9 Acute Upper Respiratory Infections Of Unspecified Site 10/30/2011 IRAHETA DO, BOONE K 465.9 Acute Upper Respiratory Infections Of Unspecified Site 10/30/2011 465.9 Acute Upper Respiratory Infections Of Unspecified Site 10/30/2011 465.9 Acute Upper Respiratory Infections Of Unspecified Site 10/30/2011 465.9 Acute Upper Respiratory Infections Of Unspecified Site 10/30/2011 465.9 Acute Upper Respiratory Infections Of Unspecified Site 10/30/2011 IRAHETA DO, BOONE K 465.9 Acute Upper Respiratory Infections Of Unspecified Site 10/30/2011 WOOD CALDERON APRN S 465.9 Acute Upper Respiratory Infections Of Unspecified Site 10/30/2011 IRAHETA DO, BOONE K 465.9 Acute Upper Respiratory Infections Of Unspecified Site 10/30/2011 MIGUEL LEW APRN 465.9 Acute Upper Respiratory Infections Of Unspecified Site 10/30/2011 RAVINDRA GLASER, CARLITA 465.9 Acute Upper Respiratory Infections Of Unspecified Site 10/30/2011 DAYANA ESTRADA APRN R 465.9 Acute Upper Respiratory Infections Of Unspecified Site 10/30/2011 KATHY FONTANEZ APRN R 465.9 Acute Upper Respiratory Infections Of Unspecified Site 01/15/2012 Ot 780.50 SLEEP DISTURBANCE NOS 02/18/2012 WOOD CALDERON APRN 428.0 CONGESTIVE HEART FAILURE UNSPECIFIED 02/18/2012 TRUNG PHD, ERNESTO Chatman 428.0 Congestive Heart Failure Unspecified [...] 428.0 Congestive Heart Failure Unspecified 02/18/2012 LOUANN RADIOLOGY RN, MIGUEL L 428.0 Congestive Heart Failure Unspecified 02/18/2012 RAVINDRA GLASER, CARLITA 428.0 Congestive Heart Failure Unspecified 02/18/2012 SEAN RADIOLOGY RN, DAYANA R 428.0 Congestive Heart Failure Unspecified 02/18/2012 ESTEE RADIOLOGY RN, KATHY R 428.0 Congestive Heart Failure Unspecified [...] BOONE IRAHETA DO 625.9 PELVIC PAIN 05/24/2012 BOONE IRAHETA DO V65.49 OTHER SPECIFIED COUNSELING 05/24/2012 BOONE IRAHETA DO V76.10 BREAST CANCER SCREENING 08/16/2012 796.2 ELEVATED BLOOD PRESSURE READING WITHOUT DIAGNOSIS OF HYPERTENSION 08/16/2012 796.2 ELEVATED BLOOD PRESSURE READING WITHOUT DIAGNOSIS OF HYPERTENSION 08/16/2012 796.2 ELEVATED BLOOD PRESSURE READING WITHOUT DIAGNOSIS OF HYPERTENSION 08/16/2012 BOONE IRAHETA DO 796.2 ELEVATED BLOOD PRESSURE READING WITHOUT DIAGNOSIS OF HYPERTENSION 08/17/2012 RAVINDRA GLASER, CARLITA Smith Ot 250.00 DIAB MIKA WO COMPL, TYPE [...] Ot V45.01 CARDIAC PACEMAKER IN SITU 08/17/2012 HUERTER MD, CARLITA F Ot V45.02 AUTO IMPLANTABLE CARDIAC DEFIBRILLATOR I [...] 10/13/2012 425.4 CARDIOMYOPHATHY 10/13/2012 BOONE IRAHETA DO K 425.4 CARDIOMYOPHATHY 06/25/2013 BOONE IRAHETA DO K 461.9 SINUSITIS ACUTE 06/25/2013 MIGUEL LEW APRN L 461.9 SINUSITIS ACUTE 06/25/2013 CARLITA WAITE MD 461.9 SINUSITIS ACUTE 06/25/2013 DAYANA ESTRADA APRN R 461.9 SINUSITIS ACUTE 06/25/2013 KATHY FONTANEZ APRN R 461.9 SINUSITIS ACUTE 08/25/2013 MIGUEL LEW [...] WAITE MD Ot 414.01 CORONARY ATHEROSCLEROSIS OF [place] CORON 09/06/2013 CARLITA WAITE MD Ot 414.8 [...] USE OF INSULIN 03/16/2014 KATHY FONTANEZ APRN 462 ACUTE PHARYNGITIS 03/16/2014 KATHY FONTANEZ APRN 786.2 COUGH 05/14/2014 Ot 250.00 DIAB MIKA WO COMPL, TYPE II OR UNSPEC TY 05/14/2014 Ot 786.50 CHEST PAIN NOS 05/14/2014 Ot V58.67 LONG-TERM (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 05/14/2014 Ot V58.69 OTH MED,LT,CURRENT USE 06/20/2015 Ot 414.01 06/20/2015 Ot V58.69 [...] FACP CCDS Ot 272.4 06/20/2015 AVANI GLASER FACC, ALI FACP CCDS Ot 414.00 06/20/2015 AVANI GLASER FACC, ALI FACP CCDS Ot 447.9 06/20/2015 AVANI GLASER FACWilder, ALI FACP CCDS Ot 585.9 06/20/2015 SORAYA MARTINS Ot E11.65 TYPE 2 DIABETES MELLITUS WITH HYPERGLYCE 06/20/2015 SORAYA MARTINS Ot Z79.4 PBX MECHANIC (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 06/20/2015 SORAYA MARTINS Ot Z95.0 PRESENCE OF CARDIAC PACEMAKER 06/20/2015 SORAYA MARTINS Ot Z95.1 PRESENCE OF AORTOCORONARY BYPASS GRAFT 06/20/2015 BAIMA, BARRY L HAT MENDER Ot E78.5 06/20/2015 BAIMA, BARRY L HAT MENDER Ot I10 06/20/2015 BAIMA, BARRY L HAT MENDER Ot I25.10 06/20/2015 BAIMA, BARRY L HAT MENDER Ot Z95.0 06/21/2015 BAIMA, BARRY L HAT MENDER Ot E78.5 06/21/2015 BAIMA, BARRY L HAT MENDER Ot I10 06/21/2015 BAIMA, BARRY L HAT MENDER Ot I25.10 06/21/2015 BAIMA, BARRY L HAT MENDER Ot Z95.0 06/21/2015 SORAYA MARTINS Ot E11.65 06/21/2015 SORAYA MARTINS Ot Z79.4 06/21/2015 SORAYA MARTINS Ot Z95.0 06/21/2015 SORAYA MARTINS Ot Z95.1 06/22/2015 BAIMA, BARRY L HAT MENDER Ot E78.5 HYPERLIPIDEMIA, UNSPECIFIED 06/22/2015 BAIMA, BARRY L HAT MENDER Ot I10 ESSENTIAL (PRIMARY) HYPERTENSION 06/22/2015 BAIMA, BARRY L HAT MENDER Ot I25.10 ATHSCL HEART DISEASE OF [place] CORONARY 06/22/2015 BAIMA, BARRY L HAT MENDER Ot Z95.0 PRESENCE OF CARDIAC PACEMAKER 06/22/2015 BAIMA, BARRY L HAT MENDER Ot E78.5 HYPERLIPIDEMIA, UNSPECIFIED 06/22/2015 BAIMA, BARRY L HAT MENDER Ot I10 ESSENTIAL (PRIMARY) HYPERTENSION 06/22/2015 BAIMA, BARRY L HAT MENDER Ot I25.10 ATHSCL HEART DISEASE OF [place] CORONARY 06/22/2015 BAIMA, BARRY L HAT MENDER Ot Z95.0 PRESENCE OF CARDIAC PACEMAKER 11/26/2015 OTILIA SPICER ANDREW K Ot R11.0 NAUSEA 11/26/2015 WILLIAM BINGHAM DOA K Ot 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 11/28/2015 ANDREW BINGHAM DO K Ot R11.0 NAUSEA 11/28/2015 OTILIA SPICER ANDREW K Ot 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 09/25/2016 Ot 414.01 CORONARY ATHEROSCLEROSIS OF [place] CORON 09/25/2016 Ot 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 [...] Ot 585.9 CHRONIC KIDNEY DISEASE, UNSPECIFIED 09/25/2016 ERIC BARRY L HAT MENDER Ot E78.5 HYPERLIPIDEMIA, UNSPECIFIED 09/25/2016 BAIBARRY WHITTINGTON L HAT MENDER Ot I10 ESSENTIAL (PRIMARY) HYPERTENSION 09/25/2016 EVNELSY BARRY L HAT MENDER Ot I25.10 ATHSCL HEART DISEASE OF [place] CORONARY 09/25/2016 BAIMA BARRY L HAT MENDER Ot Z95.0 PRESENCE OF CARDIAC PACEMAKER 09/25/2016 Ot 414.01 CORONARY ATHEROSCLEROSIS OF [place] CORON 09/25/2016 Ot 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 09/26/2016 Ot 414.01 CORONARY ATHEROSCLEROSIS OF [place] CORON 09/26/2016 Ot 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 [...] Ot 585.9 CHRONIC KIDNEY DISEASE, UNSPECIFIED 09/26/2016 EVNELSY BARRY L HAT MENDER Ot E78.5 HYPERLIPIDEMIA, UNSPECIFIED 09/26/2016 EVNELSY BARRY L HAT MENDER Ot I10 ESSENTIAL (PRIMARY) HYPERTENSION 09/26/2016 ERIC BARRY L HAT MENDER Ot I25.10 ATHSCL HEART DISEASE OF [place] CORONARY 09/26/2016 BARRY REYES L HAT MENDER Ot Z95.0 PRESENCE OF CARDIAC PACEMAKER 09/26/2016 CINDY THOMPSON MD Ot E11.9 TYPE 2 DIABETES MELLITUS WITHOUT COMPLIC 09/26/2016 CINDY THOMPSON MD Ot F20.9 SCHIZOPHRENIA, UNSPECIFIED 09/26/2016 CINDY THOMPSON MD Ot Z79.4 PBX MECHANIC (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 09/26/2016 CINDY THOMPSON MD Ot Z79.82 MCC (CURRENT) USE OF ASPIRIN 09/26/2016 CINDY THOMPSON MD Ot Z79.899 OTHER MCC (CURRENT) DRUG THERAPY 09/26/2016 CINDY THOMPSON MD Ot Z95.0 PRESENCE OF CARDIAC PACEMAKER 09/26/2016 CINDY THOMPSON MD Ot Z95.1 PRESENCE OF AORTOCORONARY BYPASS GRAFT 09/26/2016 CINDY THOMPSON MD Ot E11.9 TYPE 2 DIABETES MELLITUS WITHOUT COMPLIC 09/26/2016 CINDY THOMPSON MD Ot F20.9 SCHIZOPHRENIA, UNSPECIFIED 09/26/2016 CINDY THOMPSON MD Ot Z79.4 PBX MECHANIC (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 09/26/2016 CINDY THOMPSON MD Ot Z79.82 PBX MECHANIC (CURRENT) USE OF ASPIRIN 09/26/2016 CINDY THOMPSON MD Ot Z79.899 OTHER PBX MECHANIC (CURRENT) DRUG THERAPY 09/26/2016 CINDY THOMPSON MD Ot Z95.0 PRESENCE OF CARDIAC PACEMAKER 09/26/2016 CINDY THOMPSON MD, Ot Z95.1 PRESENCE OF AORTOCORONARY BYPASS GRAFT 10/02/2016 Ot 414.01 CORONARY ATHEROSCLEROSIS OF [place] CORON 10/02/2016 Ot 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 [...] CHRONIC KIDNEY DISEASE, UNSPECIFIED 10/02/2016 BARRY REYES HAT MENDER Ot E78.5 HYPERLIPIDEMIA, UNSPECIFIED 10/02/2016 BARRY REYES HAT MENDER Ot I10 ESSENTIAL (PRIMARY) HYPERTENSION 10/02/2016 BARRY REYES HAT MENDER Ot I25.10 ATHSCL HEART DISEASE OF [place] CORONARY 10/02/2016 BARRY REYES HAT MENDER Ot Z95.0 PRESENCE OF CARDIAC PACEMAKER 10/21/2016 CINDY THOMPSON MD Ot E05.90 THYROTOXICOSIS, UNSP WITHOUT THYROTOXIC 10/21/2016 CINDY THOMPSON MD Ot E11.9 TYPE 2 DIABETES MELLITUS WITHOUT COMPLIC 10/21/2016 CINDY THOMPSON MD Ot E78.5 HYPERLIPIDEMIA, UNSPECIFIED 10/21/2016 CINDY THOMPSON MD Ot E87.1 HYPO-OSMOLALITY AND HYPONATREMIA 10/21/2016 CINDY THOMPSON MD Ot F23 BRIEF PSYCHOTIC DISORDER 10/21/2016 CINDY THOMPSON MD Ot I10 ESSENTIAL (PRIMARY) HYPERTENSION 10/21/2016 CINDY THOMPSON MD Ot I25.10 ATHSCL HEART DISEASE OF [place] CORONARY 10/21/2016 CINDY THOMPSON MD Ot 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 10/21/2016 CINDY THOMPSON MD, Ot N39.0 URINARY TRACT INFECTION, SITE NOT SPECIF 10/21/2016 CINDY THOMPSON MD, Ot R94.31 ABNORMAL ELECTROCARDIOGRAM [ECG] [EKG] 10/21/2016 CINDY THOMPSON MD, Ot Z79.4 PBX MECHANIC (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 10/21/2016 CINDY THOMPSON MD, Ot Z95.1 PRESENCE OF AORTOCORONARY BYPASS GRAFT 10/21/2016 CINDY THOMPSON MD, Ot Z95.810 PRESENCE OF AUTOMATIC (IMPLANTABLE) CARD 11/24/2016 BARRY REYES HAT MENDER Ot I25.10 ATHSCL HEART DISEASE OF [place] CORONARY 11/25/2016 AVANI GLASER FAC, ALI FACP CCDS Ot 250.00 DIAB MIKA WO COMPL, TYPE II OR UNSPEC TY 11/25/2016 AVANI GLASER FAC, ALI FACP CCDS Ot 272.4 HYPERLIPIDEMIA NEC/NOS 11/25/2016 AVANI GLASER FAC, ALI FACP CCDS Ot 414.00 CORON ATHEROSCLER NOS TYPE VESSEL, NATIV 11/25/2016 AVANI GLASER FAC, ALI FACP CCDS Ot 447.9 ARTERIAL DISEASE NOS 11/25/2016 AVANI GLASER FAC, ALI FACP CCDS Ot 585.9 CHRONIC KIDNEY DISEASE, UNSPECIFIED 11/25/2016 BARRY REYES L HAT MENDER Ot E78.5 HYPERLIPIDEMIA, UNSPECIFIED 11/25/2016 BARRY REYES L HAT MENDER Ot I10 ESSENTIAL (PRIMARY) HYPERTENSION 11/25/2016 BARRY REYES L HAT MENDER Ot I25.10 ATHSCL HEART DISEASE OF [place] CORONARY 11/25/2016 BARRY REYES L HAT MENDER Ot Z95.0 PRESENCE OF CARDIAC PACEMAKER 11/25/2016 BAIMA, BARRY L HAT MENDER Ot I25.10 ATHSCL HEART DISEASE OF [place] CORONARY 01/06/2017 BAIBARRY WHITTINGTON L HAT MENDER Ot E78.4 OTHER HYPERLIPIDEMIA 01/06/2017 BAIMA BARRY L HAT MENDER Ot I25.10 ATHSCL HEART DISEASE OF [place] CORONARY 01/06/2017 BAIMABARRY L HAT MENDER Ot I65.23 OCCLUSION AND STENOSIS OF BILATERAL BEARD 01/06/2017 BAIMADUSTINBARRY L HAT MENDER Ot R26.89 OTHER ABNORMALITIES OF GAIT AND MOBILITY 01/06/2017 BAIMA BARRY L HAT MENDER Ot Z95.0 PRESENCE OF CARDIAC PACEMAKER 02/04/2017 BAIMA BARRY L HAT MENDER Ot I25.10 ATHSCL HEART DISEASE OF [place] CORONARY 02/04/2017 BAIMA BARRY L HAT MENDER Ot I65.23 OCCLUSION AND STENOSIS OF BILATERAL BEARD 02/04/2017 BAIMADUSTINBARRY L HAT MENDER Ot R06.09 OTHER FORMS OF DYSPNEA 02/12/2017 BAIMA BARRY L HAT MENDER Ot I25.10 ATHSCL HEART DISEASE OF [place] CORONARY 02/12/2017 BAIMADUSTINBARRY L HAT MENDER Ot I65.23 OCCLUSION AND STENOSIS OF BILATERAL BEARD 02/12/2017 BAIMABARRY L HAT MENDER Ot R06.09 OTHER FORMS OF DYSPNEA 02/16/2017 STEVEN VILLELA MD Ot E11.9 TYPE 2 DIABETES MELLITUS WITHOUT COMPLIC 02/16/2017 STEVEN VILLELA MD Ot F20.9 SCHIZOPHRENIA, UNSPECIFIED 02/16/2017 STEVEN VILLELA MD Ot F32.9 MAJOR DEPRESSIVE DISORDER, SINGLE EPISOD 02/16/2017 STEVEN VILLELA MD Ot F41.9 ANXIETY DISORDER, UNSPECIFIED 02/16/2017 STEVEN VILLELA MD Ot I25.10 ATHSCL HEART DISEASE OF [place] CORONARY 02/16/2017 STEVEN VILLELA MD Ot K02.9 DENTAL CARIES, UNSPECIFIED 02/16/2017 STEVEN VILLELA MD Ot K08.89 OTHER SPECIFIED DISORDERS OF TEETH AND S 02/16/2017 STEVEN VILLELA MD Ot Z79.4 PBX MECHANIC (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 02/16/2017 STEVEN VILLELA MD Ot Z79.82 MCC (CURRENT) USE OF ASPIRIN 02/16/2017 STEVEN VILLELA [...] MD Ot I25.10 ATHSCL HEART DISEASE OF [place] CORONARY 02/25/2017 STEVEN VILLELA MD Ot K02.9 DENTAL CARIES, UNSPECIFIED 02/25/2017 STEVEN VILLELA MD Ot K08.89 OTHER SPECIFIED DISORDERS OF TEETH AND S 02/25/2017 STEVEN VILLELA MD Ot Z79.4 PBX MECHANIC (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 02/25/2017 STEVEN VILLELA MD Ot Z79.82 PBX MECHANIC (CURRENT) USE OF ASPIRIN 02/25/2017 STEVEN VILLELA MD Ot Z86.73 PRSNL HX OF TIA (TIA), AND CEREB INFRC W 02/25/2017 STEVEN VILLELA MD Ot Z90.710 ACQUIRED ABSENCE OF BOTH CERVIX AND UTER 02/25/2017 STEVEN VILLELA MD Ot Z95.0 PRESENCE OF CARDIAC PACEMAKER 02/25/2017 STEVEN VILLELA MD Ot Z95.1 PRESENCE OF AORTOCORONARY BYPASS GRAFT 02/25/2017 BARRY REYES HAT MENDER Ot 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 02/25/2017 BARRY REYES HAT MENDER Ot E66.9 OBESITY, UNSPECIFIED 02/25/2017 BARRY REYES L HAT MENDER Ot F20.9 SCHIZOPHRENIA, UNSPECIFIED 02/25/2017 BARRY REYES L HAT MENDER Ot F32.9 MAJOR DEPRESSIVE DISORDER, SINGLE EPISOD 02/25/2017 BARRY REYES L HAT MENDER Ot I12.9 HYPERTENSIVE CHRONIC KIDNEY DISEASE W ST 02/25/2017 ERIC BARRY L HAT MENDER Ot I25.10 ATHSCL HEART DISEASE OF [place] CORONARY 02/25/2017 ERIC BARRY L HAT MENDER Ot I25.5 ISCHEMIC CARDIOMYOPATHY 02/25/2017 ERIC BARRY L HAT MENDER Ot I65.23 OCCLUSION AND STENOSIS OF BILATERAL BEARD 02/25/2017 BARRY REYES L HAT MENDER Ot 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 02/25/2017 ERIC BARRY L HAT MENDER Ot N18.2 CHRONIC KIDNEY DISEASE, STAGE 2 (MILD) 02/25/2017 ERIC BARRY L HAT MENDER Ot Z68.30 BODY MASS INDEX (BMI) 30.0-30.9, ADULT 02/25/2017 BARRY REYES HAT MENDER Ot Z79.4 MCC (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 02/25/2017 BARRY REYES HAT MENDER Ot Z79.899 OTHER PBX MECHANIC (CURRENT) DRUG THERAPY 02/25/2017 BARRY REYES HAT MENDER Ot Z95.1 PRESENCE OF AORTOCORONARY BYPASS GRAFT 02/25/2017 BARRY REYES HAT MENDER Ot Z95.810 PRESENCE OF AUTOMATIC (IMPLANTABLE) CARD 02/26/2017 BARRY REYES HAT MENDER Ot 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 02/26/2017 ERIC BARRY L HAT MENDER Ot E66.9 OBESITY, UNSPECIFIED 02/26/2017 BARRY REYES L HAT MENDER Ot F20.9 SCHIZOPHRENIA, UNSPECIFIED 02/26/2017 ERIC BARRY L HAT MENDER Ot F32.9 MAJOR DEPRESSIVE DISORDER, SINGLE EPISOD 02/26/2017 ERIC BARRY L HAT MENDER Ot I12.9 HYPERTENSIVE CHRONIC KIDNEY DISEASE W ST 02/26/2017 ERIC BARRY L HAT MENDER Ot I25.10 ATHSCL HEART DISEASE OF [place] CORONARY 02/26/2017 ERIC BARRY L HAT MENDER Ot I25.5 ISCHEMIC CARDIOMYOPATHY 02/26/2017 ERIC BARRY L HAT MENDER Ot I65.23 OCCLUSION AND STENOSIS OF BILATERAL BEARD 02/26/2017 BARRY REYES HAT MENDER Ot 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 02/26/2017 BARRY REYES L HAT MENDER Ot N18.2 CHRONIC KIDNEY DISEASE, STAGE 2 (MILD) 02/26/2017 EVBARRY WHITTINGTON L HAT MENDER Ot Z68.30 BODY MASS INDEX (BMI) 30.0-30.9, ADULT 02/26/2017 EVNELSY BARRY L HAT MENDER Ot Z79.4 MCC (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 02/26/2017 ERIC BARRY L HAT MENDER Ot Z79.899 OTHER MCC (CURRENT) DRUG THERAPY 02/26/2017 ERIC BARRY L HAT MENDER Ot Z95.1 PRESENCE OF AORTOCORONARY BYPASS GRAFT 02/26/2017 ERIC BARRY L HAT MENDER Ot Z95.810 PRESENCE OF AUTOMATIC (IMPLANTABLE) CARD 03/02/2017 ERIC BARRY L HAT MENDER Ot 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 03/02/2017 ERIC BARRY L HAT MENDER Ot E66.9 OBESITY, UNSPECIFIED 03/02/2017 ERIC BARRY L HAT MENDER Ot F20.9 SCHIZOPHRENIA, UNSPECIFIED 03/02/2017 ERIC BARRY L HAT MENDER Ot F32.9 MAJOR DEPRESSIVE DISORDER, SINGLE EPISOD 03/02/2017 ERIC BARRY L HAT MENDER Ot I12.9 HYPERTENSIVE CHRONIC KIDNEY DISEASE W ST 03/02/2017 ERIC BARRY L HAT MENDER Ot I25.10 ATHSCL HEART DISEASE OF [place] CORONARY 03/02/2017 EVNELSY BARRY L HAT MENDER Ot I25.5 ISCHEMIC CARDIOMYOPATHY 03/02/2017 ERIC BARRY L HAT MENDER Ot I65.23 OCCLUSION AND STENOSIS OF BILATERAL BEARD 03/02/2017 ERIC BARRY L HAT MENDER Ot 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 03/02/2017 ERIC BARRY L HAT MENDER Ot N18.2 CHRONIC KIDNEY DISEASE, STAGE 2 (MILD) 03/02/2017 ERIC BARRY L HAT MENDER Ot Z68.30 BODY MASS INDEX (BMI) 30.0-30.9, ADULT 03/02/2017 ERIC BARRY L HAT MENDER Ot Z79.4 PBX MECHANIC (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 03/02/2017 ERIC BARRY L HAT MENDER Ot Z79.899 OTHER MCC (CURRENT) DRUG THERAPY 03/02/2017 ERIC BARRY L HAT MENDER Ot Z95.1 PRESENCE OF AORTOCORONARY BYPASS GRAFT 03/02/2017 BARRY REYES HAT MENDER Ot Z95.810 PRESENCE OF AUTOMATIC (IMPLANTABLE) CARD 03/10/2017 BARRY REYES HAT MENDER Ot E78.4 OTHER HYPERLIPIDEMIA 03/10/2017 BARRY REYES HAT MENDER Ot I25.10 ATHSCL HEART DISEASE OF [place] CORONARY 03/10/2017 BARRY REYES HAT MENDER Ot I25.5 ISCHEMIC CARDIOMYOPATHY 03/10/2017 BARRY REYES HAT MENDER Ot N18.3 CHRONIC KIDNEY DISEASE, STAGE 3 (MODERAT 03/25/2017 AVANI GLASER FACC, ALI FACP CCDS Ot E05.90 THYROTOXICOSIS, UNSP WITHOUT THYROTOXIC 03/25/2017 AVANI GLASER FACC, ALI FACP CCDS Ot 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 03/25/2017 AVANI GLASER FACC, ALI FACP CCDS Ot E78.5 HYPERLIPIDEMIA, UNSPECIFIED 03/25/2017 AVANI GLASER FACC, ALI FACP CCDS Ot F20.9 SCHIZOPHRENIA, UNSPECIFIED 03/25/2017 AVANI GLASER FACC, ALI FACP CCDS Ot F32.9 MAJOR DEPRESSIVE DISORDER, SINGLE EPISOD 03/25/2017 AVANI GLASER FACC, ALI FACP CCDS Ot I12.9 HYPERTENSIVE CHRONIC KIDNEY DISEASE W ST 03/25/2017 AVANI GLASER FACC, ALI FACP CCDS Ot I25.10 ATHSCL HEART DISEASE OF [place] CORONARY 03/25/2017 AVANI GLASER FACC, ALI FACP CCDS Ot I25.5 ISCHEMIC CARDIOMYOPATHY 03/25/2017 AVANI GLASER FACC, ALI FACP CCDS Ot 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 03/25/2017 AVANI GLASER FACC, ALI FACP CCDS Ot M79.604 PAIN IN RIGHT LEG 03/25/2017 AVANI GLASER FACC, ALI FACP CCDS Ot M79.605 PAIN IN LEFT LEG 03/25/2017 AVANI GLASER FACC, ALI FACP CCDS Ot N18.3 CHRONIC KIDNEY DISEASE, STAGE 3 (MODERAT 03/25/2017 AVANI GLASER FACC, ALI FACP CCDS Ot Z79.02 PBX 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 (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) USE OF 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 03/25/2017 AVANI GLASER FACC, ALI FACP CCDS Ot Z79.4 PBX MECHANIC (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 03/25/2017 AVANI GLASER FACC, SHAQUILLE FACP CCDS Ot Z79.899 OTHER [facility] (CURRENT) DRUG THERAPY 03/25/2017 AVANI GLASER FACC, SHAQUILLE FACP CCDS Ot Z91.19 PATIENT'S NONCOMPLIANCE W [facility] MEDICAL TR 03/25/2017 AVANI GLASER FACC, ALI FACP CCDS Ot Z95.1 PRESENCE OF AORTOCORONARY BYPASS GRAFT 03/25/2017 AVANI GLASER FACC, SHAQUILLE FACP CCDS Ot Z95.5 PRESENCE OF CORONARY ANGIOPLASTY IMPLANT 03/25/2017 AVANI GLASER FACC, SHAQUILLE FACP CCDS Ot Z95.810 PRESENCE OF AUTOMATIC (IMPLANTABLE) CARD 03/27/2017 SHAQUILLE JO MD, FACC FACP CCDS Ot E05.90 THYROTOXICOSIS, UNSP WITHOUT THYROTOXIC 03/27/2017 AVANI GLASER FACC, SHAQUILLE FACP CCDS Ot 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 03/27/2017 AVANI GLASER FACC, SHAQUILLE FACP CCDS Ot E78.5 HYPERLIPIDEMIA, UNSPECIFIED 03/27/2017 AVANI GLASER FACC, SHAQUILLE FACP CCDS Ot F20.9 SCHIZOPHRENIA, UNSPECIFIED 03/27/2017 AVANI GLASER FACC, SHAQUILLE FACP CCDS Ot F32.9 MAJOR DEPRESSIVE DISORDER, SINGLE EPISOD 03/27/2017 AVANI GLASER FACC, ALI FACP CCDS Ot I12.9 HYPERTENSIVE CHRONIC KIDNEY DISEASE W ST 03/27/2017 AVANI GLASER FACC, ALI FACP CCDS Ot I25.10 ATHSCL HEART DISEASE OF [place] CORONARY 03/27/2017 AVANI GLASER FACC, SHAQUILLE FACP CCDS Ot I25.5 ISCHEMIC CARDIOMYOPATHY 03/27/2017 AVANI GLASER FACC, SHAQUILLE FACP CCDS Ot I69.328 [facility] SPEECH/LANG DEFICITS FOLLOWING CEREB 03/27/2017 AVANI GLASER FACC, SHAQUILLE FACP CCDS Ot M79.604 PAIN IN RIGHT LEG 03/27/2017 AVANI GLASER FACC, ALI FACP CCDS Ot M79.605 PAIN IN LEFT LEG 03/27/2017 AVANI GLASER FACC, ALI FACP CCDS Ot N18.3 CHRONIC KIDNEY DISEASE, STAGE 3 (MODERAT 03/27/2017 SHAQUILLE JO MD, FACC FACP CCDS Ot Z79.02 MCC (CURRENT) USE OF 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 03/27/2017 AVANI GLASER FACC, SHAQUILLE STANLEYP CCDS Ot Z79.4 PBX MECHANIC (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 03/27/2017 AVANI GLASER FACC, SHAQUILLE FACP CCDS Ot Z79.899 OTHER PBX MECHANIC (CURRENT) DRUG THERAPY 03/27/2017 AVANI GLASER FACC, SHAQUILLE FACP CCDS Ot Z91.19 PATIENT'S NONCOMPLIANCE W [facility] MEDICAL TR 03/27/2017 AVANI GLASER FACC, SHAQUILLE FACP CCDS Ot Z95.1 PRESENCE OF AORTOCORONARY BYPASS GRAFT 03/27/2017 AVANI GLASER FACC, SHAQUILLE FACP CCDS Ot Z95.5 PRESENCE OF CORONARY ANGIOPLASTY IMPLANT 03/27/2017 AVANI GLASER FACC, SHAQUILLE FACP CCDS Ot Z95.810 PRESENCE OF AUTOMATIC (IMPLANTABLE) CARD 05/01/2017 BAIMA, BARRY L HAT MENDER Ot R10.31 RIGHT LOWER QUADRANT PAIN 05/01/2017 BAIMA, BARRY L HAT MENDER Ot Z98.890 OTHER SPECIFIED POSTPROCEDURAL STATES 05/06/2017 BAIMA, BARRY L HAT MENDER Ot R10.31 RIGHT LOWER QUADRANT PAIN 05/06/2017 BAIMA, BARRY L HAT MENDER Ot Z98.890 OTHER SPECIFIED POSTPROCEDURAL STATES 06/09/2017 BOONE IRAHETA DO Ot E05.90 THYROTOXICOSIS, UNSP WITHOUT THYROTOXIC 06/09/2017 MARBIN IRAHETA DOA K Ot E11.9 TYPE 2 DIABETES MELLITUS WITHOUT COMPLIC 06/09/2017 MARBIN IRAHETA DOA K Ot E78.00 PURE HYPERCHOLESTEROLEMIA, UNSPECIFIED 06/09/2017 MARBIN IRAHETA DOA K Ot E78.5 HYPERLIPIDEMIA, UNSPECIFIED 06/09/2017 MARBIN IRAHETA DOA K Ot E86.0 DEHYDRATION 06/09/2017 MARBIN IRAHETA DOA Belinda Ot F20.9 SCHIZOPHRENIA, UNSPECIFIED 06/09/2017 MARBIN IRAHETA DOA K Ot F32.9 MAJOR DEPRESSIVE DISORDER, SINGLE EPISOD 06/09/2017 MARBIN IRAHETA DOA K Ot F41.9 ANXIETY DISORDER, UNSPECIFIED 06/09/2017 MARBIN IRAHETA DOA K Ot I12.9 HYPERTENSIVE CHRONIC KIDNEY DISEASE W ST 06/09/2017 MARBIN IRAHETA DOA Belinda Ot I25.10 ATHSCL HEART DISEASE OF [place] CORONARY 06/09/2017 MYRTLE SPICER BOONE Belinda Ot I65.23 OCCLUSION AND STENOSIS OF BILATERAL BEARD 06/09/2017 MYRTLE SPICER BOONE K Ot M79.604 PAIN IN RIGHT LEG 06/09/2017 MYRTLE SPICER BOONE Trevino Ot M79.605 PAIN IN LEFT LEG 06/09/2017 MYRTLE SPICER BOONE Belinda Ot N18.3 CHRONIC KIDNEY DISEASE, STAGE 3 (MODERAT 06/09/2017 MYRTLE SPICER BOONE K Ot R55 SYNCOPE AND COLLAPSE 06/09/2017 MYRTLE SPICER BOONE Belinda Ot Z79.4 PBX 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 (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 06/09/2017 MYRTLE SPICER BOONE Belinda Ot Z79.899 OTHER PBX MECHANIC (CURRENT) DRUG THERAPY 06/09/2017 MYRTLE SPICER BOONE K Ot Z86.73 PRSNL HX OF TIA (TIA), AND CEREB INFRC W 06/09/2017 IRAHETA DO BOONE K Ot Z91.19 PATIENT'S NONCOMPLIANCE W [facility] MEDICAL TR 06/09/2017 IRAHETA DO BOONE Belinda Ot Z95.1 PRESENCE OF AORTOCORONARY BYPASS GRAFT 06/09/2017 MYRTLE SPICER BOONE K Ot Z95.2 PRESENCE OF PROSTHETIC HEART VALVE 06/09/2017 MYRTLE SPICER BOONE Belinda Ot Z95.810 PRESENCE OF AUTOMATIC (IMPLANTABLE) CARD 06/09/2017 BARRY REYES HAT MENDER Ot R10.31 RIGHT LOWER QUADRANT PAIN 06/09/2017 BARRY REYES HAT MENDER Ot Z98.890 OTHER SPECIFIED POSTPROCEDURAL STATES 06/09/2017 BARRY REYES HAT MENDER Ot E78.4 OTHER HYPERLIPIDEMIA 06/09/2017 BARRY REYES HAT MENDER Ot I25.10 ATHSCL HEART DISEASE OF [place] CORONARY 06/09/2017 BARRY REYES HAT MENDER Ot I25.5 ISCHEMIC CARDIOMYOPATHY 06/09/2017 BARRY REYES HAT MENDER Ot N18.3 CHRONIC KIDNEY DISEASE, STAGE 3 (MODERAT 12/04/2017 AVANI GLASER FACC, ALI FACP CCDS Ot 250.00 DIAB MIKA WO COMPL, TYPE II OR UNSPEC TY 12/04/2017 AVANI GLASER FACC, SHAQUILLE FACP CCDS Ot 272.4 HYPERLIPIDEMIA NEC/NOS 12/04/2017 AVANI GLASER FACC, ALI FACP CCDS Ot 414.00 CORON ATHEROSCLER NOS TYPE VESSEL, NATIV 12/04/2017 AVANI GLASER [facility], SHAQUILLE TURCIOS CCDS Ot 447.9 ARTERIAL DISEASE NOS 12/04/2017 AVANI STANLEY, SHAQUILLE FACOmar CCDS Ot 585.9 CHRONIC KIDNEY DISEASE, UNSPECIFIED 12/04/2017 EVMA, BARRY L HAT MENDER Ot E78.5 HYPERLIPIDEMIA, UNSPECIFIED 12/04/2017 BAIMA, BARRY L HAT MENDER Ot I10 ESSENTIAL (PRIMARY) HYPERTENSION 12/04/2017 BAIMA, BARRY L HAT MENDER Ot I25.10 ATHSCL HEART DISEASE OF [place] CORONARY 12/04/2017 BAIMA, BARRY L HAT MENDER Ot Z95.0 PRESENCE OF CARDIAC PACEMAKER 12/04/2017 BAIMA, BARRY L HAT MENDER Ot E78.4 OTHER HYPERLIPIDEMIA 12/04/2017 BAIMA, BARRY L HAT MENDER Ot I25.10 ATHSCL HEART DISEASE OF [place] CORONARY 12/04/2017 BAIMA, BARRY L HAT MENDER Ot I25.5 ISCHEMIC CARDIOMYOPATHY 12/04/2017 BAIMA, BARRY L HAT MENDER Ot N18.3 CHRONIC KIDNEY DISEASE, STAGE 3 (MODERAT 12/04/2017 BAIMA, BARRY L HAT MENDER Ot R10.31 RIGHT LOWER QUADRANT PAIN 12/04/2017 BAIMA, BARRY L HAT MENDER Ot Z98.890 OTHER SPECIFIED POSTPROCEDURAL STATES 12/05/2017 EVMA, BARRY L HAT MENDER Ot 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 12/05/2017 EVMA, BARRY L HAT MENDER Ot E66.9 OBESITY, UNSPECIFIED 12/05/2017 BAIMA, BARRY L HAT MENDER Ot F20.9 SCHIZOPHRENIA, UNSPECIFIED 12/05/2017 BAIMA, BARRY L HAT MENDER Ot F32.9 MAJOR DEPRESSIVE DISORDER, SINGLE EPISOD 12/05/2017 BAIMA, BARRY L HAT MENDER Ot I12.9 HYPERTENSIVE CHRONIC KIDNEY DISEASE W ST 12/05/2017 BAIMA, BARRY L HAT MENDER Ot I25.10 ATHSCL HEART DISEASE OF [place] CORONARY 12/05/2017 BAIMA, BARRY L HAT MENDER Ot I25.5 ISCHEMIC CARDIOMYOPATHY 12/05/2017 BAIMA, BARRY L HAT MENDER Ot I65.23 OCCLUSION AND STENOSIS OF BILATERAL BEARD 12/05/2017 EVMA, BARRY L HAT MENDER Ot 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 12/05/2017 BARRY REYES HAT MENDER Ot N18.2 CHRONIC KIDNEY DISEASE, STAGE 2 (MILD) 12/05/2017 BARRY REYES HAT MENDER Ot Z68.30 BODY MASS INDEX (BMI) 30.0-30.9, ADULT 12/05/2017 EVBARRY WHITTINGTON HAT MENDER Ot Z79.4 PBX MECHANIC (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 12/05/2017 ERIC BARRY Jaylen HAT MENDER Ot Z79.899 OTHER PBX MECHANIC (CURRENT) DRUG THERAPY 12/05/2017 EVNELSY BARRY [place] HAT MENDER Ot Z95.1 PRESENCE OF AORTOCORONARY BYPASS GRAFT 12/05/2017 ERIC BARRYHER Jaylen JEAN-BAPTISTEP Ot Z95.810 PRESENCE OF AUTOMATIC (IMPLANTABLE) CARD 07/19/2018 STEVEN VILLELA MD Ot E11.9 TYPE 2 DIABETES MELLITUS WITHOUT COMPLIC 07/19/2018 STEVEN VILLELA MD Ot E78.00 PURE HYPERCHOLESTEROLEMIA, UNSPECIFIED 07/19/2018 STEVEN VILLELA MD Ot F20.9 SCHIZOPHRENIA, UNSPECIFIED 07/19/2018 STEVEN VILLELA MD Ot F32.9 MAJOR DEPRESSIVE DISORDER, SINGLE EPISOD 07/19/2018 STEVEN VILLELA MD Ot F41.9 ANXIETY DISORDER, UNSPECIFIED 07/19/2018 STEVEN VILLELA MD Ot I25.10 ATHSCL HEART DISEASE OF [place] CORONARY 07/19/2018 STEVEN VILLELA MD Ot K21.9 GASTRO-ESOPHAGEAL REFLUX DISEASE WITHOUT 07/19/2018 STEVEN VILLELA MD Ot R07.9 CHEST PAIN, UNSPECIFIED 07/19/2018 STEVEN VILLELA MD Ot R11.0 NAUSEA 07/19/2018 STEVEN VILLELA MD Ot Z79.4 PBX MECHANIC (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 07/19/2018 STEVEN VILLELA MD Ot Z79.82 PBX MECHANIC (CURRENT) USE OF ASPIRIN 07/19/2018 STEVEN VILLELA MD Ot Z82.49 FAMILY HX OF ISCHEM HEART DIS AND OTH DI 07/19/2018 STEVEN VILLELA MD Ot Z86.73 PRSNL HX OF TIA (TIA), AND CEREB INFRC W 07/19/2018 STEVEN VILLELA MD Ot Z87.19 PERSONAL HISTORY OF OTHER DISEASES OF TH 07/19/2018 STEVEN VILLELA MD Ot Z90.49 ACQUIRED ABSENCE OF OTHER SPECIFIED PART 07/19/2018 STEVEN VILLELA MD Ot Z90.710 ACQUIRED ABSENCE OF BOTH CERVIX AND UTER 07/19/2018 STEVEN VILLELA MD Ot Z95.1 PRESENCE OF AORTOCORONARY BYPASS GRAFT 07/19/2018 STEVEN VILLELA MD Ot Z95.2 PRESENCE OF PROSTHETIC HEART VALVE 07/19/2018 STEVEN VILLELA MD Ot Z95.5 PRESENCE OF CORONARY ANGIOPLASTY IMPLANT 07/19/2018 STEVEN VILLELA MD Ot Z95.810 PRESENCE OF AUTOMATIC (IMPLANTABLE) CARD Procedures Code Description Performed By [facility] 02/12/2012 [id number] ROUTINE VENIPUNCTURE 02/18/2012 43307 MICRO ALBUMIN-IN HOUSE 02/18/2012 64428 ROUTINE VENIPUNCTURE 02/18/2012 77073 CMP 02/18/2012 41984 LIPID PANEL 02/18/2012 [id number] GFR CALC (RESULT ONLY) 02/18/2012 29501 DIGOXIN 02/19/2012 03931 CBC 02/19/2012 74703 A1C (RML) 02/20/2012 22920 INDIV PSYTX 45/50 MIN 02/25/2012 34989 ROUTINE VENIPUNCTURE 04/27/2012 88161 CBC 04/27/2012 53428 CMP 04/27/2012 [id number] GFR CALC (RESULT ONLY) 04/27/2012 Mikal Duncan 04/27/2012 53086 PSYTX PT&/FAMILY 45 MINUTES 04/28/2012 07238 A1C (IN-HOUSE) 05/19/2012 61415 HEMOCCULT 05/24/2012 46890 UA W/ CULTURE IF INDICATED 05/24/2012 93850 MAMMOGRAM, SCREENING 05/25/2012 27147 ROUTINE VENIPUNCTURE 06/23/2012 63993 CBC 06/23/2012 30146 CMP 06/23/2012 53985 LIPID PANEL 06/23/2012 8130152 GFR CALC (RESULT ONLY) 06/23/2012 64393 DIGOXIN 06/24/2012 50165 BNP 06/25/2012 38292 INDIV PSYTX 45/50 MIN 09/08/2012 Cardiolog Shaquille Jo 10/13/2012 96348 ROUTINE VENIPUNCTURE 10/13/2012 02957 CMP 10/13/2012 29570 LIPID PANEL 10/13/2012 34278 MAGNESIUM 10/13/2012 1628785 GFR CALC (RESULT ONLY) 10/13/2012 56721 DIGOXIN 10/13/2012 28723 ROUTINE VENIPUNCTURE 11/18/2012 08038 CMP 11/18/2012 46674 LIPID PANEL 11/18/2012 6995939 GFR CALC (RESULT ONLY) 11/18/2012 56882 DIGOXIN 11/18/2012 30523 ROUTINE VENIPUNCTURE 05/26/2013 45391 MICRO ALBUMIN-IN HOUSE 05/26/2013 29100 A1C (IN-HOUSE) 05/26/2013 40532 MICROALBUMIN 05/26/2013 1605826 GFR CALC (RESULT ONLY) 05/26/2013 14419 BMP 05/26/2013 93437 XRAY SI JOINTS LESS THAN 3 VIEWS 08/25/2013 77498 XRAY HIP RIGHT UNILATERAL MIN 2 VIEWS [...] Automated erythrocyte mean corpuscular hemoglobin concentration measurement (mass/volume) 34 g/dL 32-36 Automated erythrocyte distribution width ratio 13.3 % 10.0- 14.5 Automated blood platelet count (count/volume) 179 10*3/uL [...] Blood monocytes automated count (number/volume) 0.6 10*3 0.0- 1.0 Automated eosinophil count 0.2 10*3/uL 0.0-0.3 Automated [...] Serum or plasma aspartate aminotransferase measurement (enzymatic activity/volume) 17 U/L 5-34 Serum or plasma alanine aminotransferase measurement (enzymatic activity/volume) 25 U/L 0-55 Serum or plasma protein measurement (mass/volume) 7.3 g/dL 6.4-8.2 Serum or plasma albumin measurement (mass/volume) 3.9 g/dL 3.2-4.5 Complete urinalysis with reflex to culture - 09/25/16 21:50 Urine color determination YELLOW NRG Urine clarity determination CLEAR NRG Urine pH measurement by test strip 5 5-9 Specific gravity of urine by test strip 1.015 1.016-1.022 Urine protein assay by test strip, semi-quantitative [...] sediment leukocyte count by microscopy (number/high power field) [HPF] NRG Bacteria detection in urine sediment [...] culture - 09/25/16 21:50 Bacterial urine culture [id number] NRG COLONY COUNT 10,000/ML - 100,000/ML NRG FTX;REPORTABLE SENSITIVITY REPORTED 09/28 10:40 NRG FREE TEXT ENTRY 3 MIXED GRAM POSITIVE JACQUELYN NRG Bacterial susceptibility panel - 09/25/16 21:50 Gentamicin susceptibility test by minimum inhibitory concentration <= NRG Trimethoprim/sulfamethoxazole susceptibility test by minimum inhibitoryconcentration <= NRG Ampicillin susceptibility test by minimum inhibitory concentration >= NRG Tobramycin susceptibility test by minimum inhibitory concentration <= NRG Cefazolin susceptibility test by minimum inhibitory concentration <= NRG Ceftriaxone susceptibility test by minimum inhibitory concentration <= NRG Ampicillin/sulbactam susceptibility test by minimum inhibitory concentration 4 NRG Piperacillin/tazobactam susceptibility test by minimum inhibitory concentration <= NRG Ciprofloxacin susceptibility test by minimum inhibitory concentration <= NRG Meropenem susceptibility test by minimum inhibitory concentration <= NRG Nitrofurantoin susceptibility test by minimum inhibitory concentration 32 NRG Aztreonam susceptibility test by minimum inhibitory concentration <= NRG Extended spectrum beta lactamase (ESBL) producing bacteria susceptibility test by minimum inhibitory concentration - NRG Urine drug screening test - 10/20/16 22:49 [...] gravity of urine by test strip 1.010 1.016-1.022 Urine protein assay by test strip, semi-quantitative [...] sediment leukocyte count by microscopy (number/high power field) [HPF] NRG Bacteria detection in urine sediment [...] Automated erythrocyte mean corpuscular hemoglobin concentration measurement (mass/volume) 35 g/dL 32-36 Automated erythrocyte distribution width ratio 13.2 % 10.0- 14.5 Automated blood platelet count (count/volume) 192 10*3/uL [...] Blood monocytes automated count (number/volume) 0.6 10*3 0.0- 1.0 Automated eosinophil count 0.2 10*3/uL 0.0-0.3 Automated [...] Serum or plasma aspartate aminotransferase measurement (enzymatic activity/volume) 34 U/L 5-34 Serum or plasma alanine aminotransferase measurement (enzymatic activity/volume) 36 U/L 0-55 Serum or plasma protein [...] Automated erythrocyte mean corpuscular hemoglobin concentration measurement (mass/volume) 35 g/dL 32-36 Automated erythrocyte distribution width ratio 13.4 % 10.0- 14.5 Automated blood platelet count (count/volume) 201 10*3/uL [...] Blood monocytes automated count (number/volume) 0.6 10*3 0.0- 1.0 Automated eosinophil count 0.1 10*3/uL 0.0-0.3 Automated [...] Serum or plasma aspartate aminotransferase measurement (enzymatic activity/volume) 29 U/L 5-34 Serum or plasma alanine aminotransferase measurement (enzymatic activity/volume) 35 U/L 0-55 Serum or plasma protein [...] Automated erythrocyte mean corpuscular hemoglobin concentration measurement (mass/volume) 34 g/dL 32-36 Automated erythrocyte distribution width ratio 13.0 % 10.0- 14.5 Automated blood platelet count (count/volume) 198 10*3/uL [...] Serum or plasma aspartate aminotransferase measurement (enzymatic activity/volume) 16 U/L 5-34 Serum or plasma alanine aminotransferase measurement (enzymatic activity/volume) 26 U/L 0-55 Serum or plasma protein measurement (mass/volume) 7.1 g/dL 6.4-8.2 Serum or plasma albumin measurement (mass/volume) 3.9 g/dL 3.2-4.5 Lipid 1996 panel - 02/24/17 08:22 Serum or plasma triglyceride measurement (mass/volume) 185 mg/dL <150 Serum or plasma cholesterol measurement (mass/volume) 203 mg/dL < 200 Serum or plasma cholesterol in HDL measurement (mass/volume) 44 mg/dL 40-60 Cholesterol in LDL [mass/volume] in serum or plasma by direct assay 129 mg/dL 1-129 Serum or plasma cholesterol in VLDL measurement (mass/volume) 37 mg/dL 5-40 PT panel in platelet poor plasma [...] resistant Staphylococcus aureus (MRSA) screening culture - 02/24/17 08:22 MRSA SCREEN RESULT MRSA ISOLATED NR Capillary blood glucose measurement by glucometer (mass/volume) - 02/24/17 18:22 Capillary blood glucose measurement by glucometer (mass/volume) [...] Automated erythrocyte mean corpuscular hemoglobin concentration measurement (mass/volume) 33 g/dL 32-36 Automated erythrocyte distribution width ratio 13.1 % 10.0- 14.5 Automated blood platelet count (count/volume) 184 10*3/uL [...] Automated erythrocyte mean corpuscular hemoglobin concentration measurement (mass/volume) 35 g/dL 32-36 Automated erythrocyte distribution width ratio 12.9 % 10.0- 14.5 Automated blood platelet count (count/volume) 166 10*3/uL [...] Serum or plasma aspartate aminotransferase measurement (enzymatic activity/volume) 24 U/L 5-34 Serum or plasma alanine aminotransferase measurement (enzymatic activity/volume) 38 U/L 0-55 Serum or plasma protein measurement (mass/volume) 7.8 g/dL 6.4-8.2 Serum or plasma albumin measurement (mass/volume) 4.2 g/dL 3.2-4.5 Lipid 1996 panel - 03/24/17 08:12 Serum or plasma triglyceride measurement (mass/volume) 120 mg/dL <150 Serum or plasma cholesterol measurement (mass/volume) 164 mg/dL < 200 Serum or plasma cholesterol in HDL measurement (mass/volume) 47 mg/dL 40-60 Cholesterol in LDL [mass/volume] in serum or plasma by direct assay 89 mg/dL 1-129 Serum or plasma cholesterol in VLDL measurement (mass/volume) 24 mg/dL 5-40 Digoxin - 03/24/17 08:12 Digoxin 0.56 ng/mL 0.80-2.00 Methicillin resistant Staphylococcus aureus (MRSA) screening culture - 03/24/17 08:12 Methicillin resistant Staphylococcus aureus (MRSA) screening culture NEG NRG Capillary blood glucose measurement by glucometer (mass/volume) - 03/24/17 16:33 Capillary blood glucose measurement by glucometer (mass/volume) 219 mg/dL 70-110 Capillary blood glucose measurement by glucometer (mass/volume) - 03/24/17 20:04 Capillary blood glucose measurement by glucometer (mass/volume) [...] Automated erythrocyte mean corpuscular hemoglobin concentration measurement (mass/volume) 34 g/dL 32-36 Automated erythrocyte distribution width ratio 13.2 % 10.0- 14.5 Automated blood platelet count (count/volume) 142 10*3/uL [...] glucose measurement by glucometer (mass/volume) - 03/25/17 05:33 Capillary blood glucose measurement by glucometer (mass/volume) 244 mg/dL 70-110 Serum or plasma potassium measurement (moles/volume) - 03/25/17 08:35 Serum or plasma potassium measurement (moles/volume) 4.4 mmol/L 3.6-5.0 Capillary blood glucose measurement by glucometer (mass/volume) - 03/25/17 11:06 Capillary blood glucose measurement by glucometer (mass/volume) 183 mg/dL 70-110 Complete blood count (CBC) with automated white blood cell (WBC) differential - 06/08/17 18:22 Blood leukocytes automated count (number/volume) 7.7 10*3/uL 4.3-11.0 Blood erythrocytes automated count (number/volume) 4.48 10*6/uL 4.35-5.85 Venous blood hemoglobin measurement (mass/volume) 13.0 g/dL 11.5-16.0 Blood hematocrit (volume fraction) 38 % 35-52 Automated erythrocyte mean corpuscular volume 84 [foz_us] 80-99 Automated erythrocyte mean corpuscular hemoglobin (mass per erythrocyte) 29 pg 25-34 Automated erythrocyte mean corpuscular hemoglobin concentration measurement (mass/volume) 35 g/dL 32-36 Automated erythrocyte distribution width ratio 13.6 % 10.0- 14.5 Automated blood platelet count (count/volume) 157 10*3/uL 130-400 Automated blood platelet mean volume measurement 10.1 [foz_us] 7.4-10.4 Automated blood neutrophils/100 leukocytes 80 % 42-75 Automated blood lymphocytes/100 leukocytes 15 % 12-44 Blood monocytes/100 leukocytes 4 % 0-12 Automated blood eosinophils/100 leukocytes 1 % 0-10 Automated blood basophils/100 leukocytes 0 % 0-10 Blood neutrophils automated count (number/volume) 6.2 10*3 1.8-7.8 Blood lymphocytes automated count (number/volume) 1.1 10*3 1.0-4.0 Blood monocytes automated count (number/volume) 0.3 10*3 0.0- 1.0 Automated eosinophil count 0.1 10*3/uL 0.0-0.3 Automated blood basophil count (count/volume) 0.0 10*3/uL 0.0-0.1 Comprehensive metabolic panel - 06/08/17 18:22 Serum or plasma sodium measurement (moles/volume) 131 mmol/L 135-145 Serum or plasma potassium measurement (moles/volume) 4.9 mmol/L 3.6-5.0 Serum or plasma chloride measurement (moles/volume) 103 mmol/L 98-107 Carbon dioxide 22 mmol/L 21-32 Serum or plasma anion gap determination (moles/volume) 6 mmol/L 5-14 Serum or plasma urea nitrogen measurement (mass/volume) 23 mg/dL 7-18 Serum or plasma creatinine measurement (mass/volume) 1.24 mg/dL 0.60-1.30 Serum or plasma urea nitrogen/creatinine mass ratio 19 NRG Serum or plasma creatinine measurement with calculation of estimated glomerular filtration rate 43 NRG Serum or plasma glucose measurement (mass/volume) 252 mg/dL 70-105 Serum or plasma calcium measurement (mass/volume) 9.2 mg/dL 8.5-10.1 Serum or plasma total bilirubin measurement (mass/volume) 0.5 mg/dL 0.1-1.0 Serum or plasma alkaline phosphatase measurement (enzymatic activity/volume) 104 U/L 40-136 Serum or plasma aspartate aminotransferase measurement (enzymatic activity/volume) 16 U/L 5-34 Serum or plasma alanine aminotransferase measurement (enzymatic activity/volume) 19 U/L 0-55 Serum or plasma protein measurement (mass/volume) 7.5 g/dL 6.4-8.2 Serum or plasma albumin measurement (mass/volume) 4.2 g/dL 3.2-4.5 Magnesium - 06/08/17 18: Magnesium 1.6 mg/dL 1.8-2.4 Serum or plasma troponin i.cardiac measurement (mass/volume) - 06/08/17 18:22 Serum or plasma troponin i.cardiac measurement (mass/volume) < ng/mL <0.30 Serum or plasma C reactive protein measurement (mass/volume) - 06/08/17 18:22 Serum or plasma C reactive protein measurement (mass/volume) 0.34 mg/dL 0.00-0.50 Digoxin - 06/08/17 18:22 Digoxin 0.60 ng/mL 0.80-2.00 Complete urinalysis with reflex to culture - 06/08/17 20:20 Urine color determination YELLOW NRG Urine clarity determination CLEAR NRG Urine pH measurement by test strip 5 5-9 Specific gravity of urine by test strip 1.020 1.016-1.022 Urine protein assay by test strip, semi-quantitative NEGATIVE NEGATIVE Urine glucose detection by automated test strip 3+ NEGATIVE Erythrocytes detection in urine sediment by light microscopy NEGATIVE NEGATIVE Urine ketones detection by automated test strip NEGATIVE NEGATIVE Urine nitrite detection by test strip NEGATIVE NEGATIVE Urine total bilirubin detection by test strip NEGATIVE NEGATIVE Urine urobilinogen measurement by automated test strip (mass/volume) NORMAL NORMAL Urine leukocyte esterase detection by dipstick 1+ NEGATIVE Automated urine sediment erythrocyte count by microscopy (number/high power field) NONE NRG Automated urine sediment leukocyte count by microscopy (number/high power field) NONE NRG Bacteria detection in urine sediment by light microscopy NEGATIVE NRG Squamous epithelial cells detection in urine sediment by light microscopy 0-2 NRG Crystals detection in urine sediment by light microscopy NONE NRG Casts detection in urine sediment by light microscopy PRESENT NRG Mucus detection in urine sediment by light microscopy NEGATIVE NRG Complete urinalysis with reflex to culture NO NRG Hyaline casts detection in urine sediment by light microscopy RARE NRG Urine drug screening test - 06/08/17 20:20 Urine phencyclidine detection by screening method NEGATIVE [...] NEGATIVE NEGATIVE Urine propoxyphene detection NEGATIVE NEGATIVE Capillary blood glucose measurement by glucometer (mass/volume) - 06/08/17 23:36 Capillary blood glucose measurement by glucometer (mass/volume) 193 mg/dL 70-110 Capillary blood glucose measurement by glucometer (mass/volume) - 06/09/17 05:23 Capillary blood glucose measurement by glucometer (mass/volume) 179 mg/dL 70-110 Complete blood count (CBC) with automated white blood cell (WBC) differential - 06/09/17 06:14 Blood leukocytes automated count (number/volume) 5.5 10*3/uL 4.3-11.0 Blood erythrocytes automated count (number/volume) 3.81 10*6/uL 4.35-5.85 Venous blood hemoglobin measurement (mass/volume) 11.0 g/dL 11.5-16.0 Blood hematocrit (volume fraction) 33 % 35-52 Automated erythrocyte mean corpuscular volume 86 [foz_us] 80-99 Automated erythrocyte mean corpuscular hemoglobin (mass per erythrocyte) 29 pg 25-34 Automated erythrocyte mean corpuscular hemoglobin concentration measurement (mass/volume) 34 g/dL 32-36 Automated erythrocyte distribution width ratio 13.8 % 10.0- 14.5 Automated blood platelet count (count/volume) 136 10*3/uL 130-400 Automated blood platelet mean volume measurement 9.8 [foz_us] 7.4-10.4 Automated blood neutrophils/100 leukocytes 64 % 42-75 Automated blood lymphocytes/100 leukocytes 27 % 12-44 Blood monocytes/100 leukocytes 7 % 0-12 Automated blood eosinophils/100 leukocytes 2 % 0-10 Automated blood basophils/100 leukocytes 1 % 0-10 Blood neutrophils automated count (number/volume) 3.5 10*3 1.8-7.8 Blood lymphocytes automated count (number/volume) 1.5 10*3 1.0-4.0 Blood monocytes automated count (number/volume) 0.4 10*3 0.0- 1.0 Automated eosinophil count 0.1 10*3/uL 0.0-0.3 Automated blood basophil count (count/volume) 0.0 10*3/uL 0.0-0.1 Whole blood basic metabolic panel - 06/09/17 06:14 Serum or plasma sodium measurement (moles/volume) 138 mmol/L 135-145 Serum or plasma potassium measurement (moles/volume) 4.6 mmol/L 3.6-5.0 Serum or plasma chloride measurement (moles/volume) 110 mmol/L 98-107 Carbon dioxide 20 mmol/L 21-32 Serum or plasma anion gap determination (moles/volume) 8 mmol/L 5-14 Serum or plasma urea nitrogen measurement (mass/volume) 16 mg/dL 7-18 Serum or plasma creatinine measurement (mass/volume) 1.04 mg/dL 0.60-1.30 Serum or plasma urea nitrogen/creatinine mass ratio 15 NRG Serum or plasma creatinine measurement with calculation of estimated glomerular filtration rate 53 NRG Serum or plasma glucose measurement (mass/volume) 168 mg/dL 70-105 Serum or plasma calcium measurement (mass/volume) 8.3 mg/dL 8.5-10.1 Capillary blood glucose measurement by glucometer (mass/volume) - 06/09/17 11:32 Capillary blood glucose measurement by glucometer (mass/volume) 131 mg/dL 70-110 Capillary blood glucose measurement by glucometer (mass/volume) - 06/09/17 16:16 Capillary blood glucose measurement by glucometer (mass/volume) 169 mg/dL 70-110 SPECIMEN INTEGRITY COMPROMISED - 12/07/17 12:31 SPECIMEN INTEGRITY COMPROMISED NRG Complete blood count (CBC) with automated white blood cell (WBC) differential - 07/16/18 08:05 Blood leukocytes automated count (number/volume) 6.7 10*3/uL 4.3-11.0 Blood erythrocytes automated count (number/volume) 4.49 10*6/uL 4.35-5.85 Venous blood hemoglobin measurement (mass/volume) 13.4 g/dL 11.5-16.0 Blood hematocrit (volume fraction) 40 % 35-52 Automated erythrocyte mean corpuscular volume 89 [foz_us] 80-99 Automated erythrocyte mean corpuscular hemoglobin (mass per erythrocyte) 30 pg 25-34 Automated erythrocyte mean corpuscular hemoglobin concentration measurement (mass/volume) 34 g/dL 32-36 Automated erythrocyte distribution width ratio 13.4 % 10.0- 14.5 Automated blood platelet count (count/volume) 157 10*3/uL 130-400 Automated blood platelet mean volume measurement 9.7 [foz_us] 7.4-10.4 Automated blood neutrophils/100 leukocytes 73 % 42-75 Automated blood lymphocytes/100 leukocytes 18 % 12-44 Blood monocytes/100 leukocytes 7 % 0-12 Automated blood eosinophils/100 leukocytes 3 % 0-10 Automated blood basophils/100 leukocytes 0 % 0-10 Blood neutrophils automated count (number/volume) 4.9 10*3 1.8-7.8 Blood lymphocytes automated count (number/volume) 1.2 10*3 1.0-4.0 Blood monocytes automated count (number/volume) 0.5 10*3 0.0- 1.0 Automated eosinophil count 0.2 10*3/uL 0.0-0.3 Automated blood basophil count (count/volume) 0.0 10*3/uL 0.0-0.1 PT panel in platelet poor plasma by coagulation assay - 07/16/18 08:05 Prothrombin time (PT) in platelet poor plasma by coagulation assay 13.2 s 12.2-14.7 INR in platelet poor plasma or blood by coagulation assay 1.0 0.8-1.4 Activated partial thromboplastin time (aPTT) in platelet poor plasma bycoagulation assay - 07/16/18 08:05 Activated partial thromboplastin time (aPTT) in platelet poor plasma bycoagulation assay 28 s 24-35 Comprehensive metabolic panel - 07/16/18 08:05 Serum or plasma sodium measurement (moles/volume) 140 mmol/L 135-145 Serum or plasma potassium measurement (moles/volume) 5.1 mmol/L 3.6-5.0 Serum or plasma chloride measurement (moles/volume) 108 mmol/L 98-107 Carbon dioxide 21 mmol/L 21-32 Serum or plasma anion gap determination (moles/volume) 11 mmol/L 5-14 Serum or plasma urea nitrogen measurement (mass/volume) 22 mg/dL 7-18 Serum or plasma creatinine measurement (mass/volume) 1.26 mg/dL 0.60-1.30 Serum or plasma urea nitrogen/creatinine mass ratio 17 NRG Serum or plasma creatinine measurement with calculation of estimated glomerular filtration rate 42 NRG Serum or plasma glucose measurement (mass/volume) 124 mg/dL 70-105 Serum or plasma calcium measurement (mass/volume) 9.6 mg/dL 8.5-10.1 Serum or plasma total bilirubin measurement (mass/volume) 0.5 mg/dL 0.1-1.0 Serum or plasma alkaline phosphatase measurement (enzymatic activity/volume) 138 U/L 40-136 Serum or plasma aspartate aminotransferase measurement (enzymatic activity/volume) 20 U/L 5-34 Serum or plasma alanine aminotransferase measurement (enzymatic activity/volume) 24 U/L 0-55 Serum or plasma protein measurement (mass/volume) 7.2 g/dL 6.4-8.2 Serum or plasma albumin measurement (mass/volume) 4.0 g/dL 3.2-4.5 CALCIUM CORRECTED 9.6 mg/dL 8.5-10.1 Magnesium - 07/16/18 08:05 Magnesium 1.6 mg/dL 1.8-2.4 Serum or plasma troponin i.cardiac measurement (mass/volume) - 07/16/18 08:05 Serum or plasma troponin i.cardiac measurement (mass/volume) < ng/mL <0.028 Myoglobin, serum - 07/16/18 08:05 Myoglobin, serum 80.0 ng/mL 10.0-92.0 Lipase - 07/16/18 08:05 Lipase 20 U/L 8-78 Serum or plasma lithium measurement (moles/volume) - 07/16/18 08:05 BNP level 77.1 pg/mL <100.0 Serum or plasma troponin i.cardiac measurement (mass/volume) - 07/16/18 10:07 Serum or plasma troponin i.cardiac measurement (mass/volume) < ng/mL <0.028 Encounters ACCT No. Visit Date/Time Discharge Status Pt. Type Provider Facility Loc./Unit Complaint [id number] 03/16/2014 15:41:00 03/16/2014 23:59:59 CLS Outpatient KATHY FONTANEZ APRN [id number] 11/16/2013 14:20:00 11/16/2013 23:59:59 CLS Outpatient DAYANA ESTRADA APRN [id number] 09/26/2013 17:01:00 09/26/2013 23:59:59 CLS Outpatient CARLITA WAITE MD [id number] 08/25/2013 15:02:00 08/25/2013 23:59:59 CLS Outpatient MIGUEL LEW APRN [id number] 06/25/2013 13:11:00 06/25/2013 23:59:59 CLS Outpatient BOONE IRAHETA DO Belinda [id number] 05/26/2013 10:59:00 05/26/2013 23:59:59 CLS Outpatient WOOD CALDERON APRN [id number] 11/18/2012 10:09:00 11/18/2012 23:59:59 CLS Outpatient BOONE IRAHETA DO [place] [id number] 05/24/2012 13:54:00 05/24/2012 23:59:59 CLS Outpatient BOONE IRAHETA DO [place]inda [id number] 05/10/2012 14:28:00 05/10/2012 23:59:59 CLS Outpatient BOONE IRAHETA DO [place] [id number] 04/27/2012 13:46:00 04/27/2012 23:59:59 CLS Outpatient BOONE IRAHETA DO Belinda [id number] 02/25/2012 16:14:00 02/25/2012 23:59:59 CLS Outpatient ERNESTO NINO PHD [id number] 02/18/2012 14:57:00 02/18/2012 23:59:59 CLS Outpatient WOOD CALDERON APRN [id number] 12/24/2011 13:52:00 12/24/2011 23:59:59 CLS Outpatient CHIQUITA ROGERS DO [id number] 10/13/2012 08:44:00 Document Registration [id number] 09/07/2012 14:15:00 Document Registration [id number] 08/16/2012 14:07:00 Document Registration [id number] 06/23/2012 09:34:00 Document Registration [id number] 08/27/2018 12:00:00 08/27/2018 23:59:59 CLS Outpatient YUMIKO MORRISWOOD Romero [facility] [id number] 12/07/2017 10:40:00 Document Registration [id number] 12/31/2016 08:40:00 Document Registration [id number] 07/16/2018 07:51:00 07/16/2018 12:22:00 DIS Outpatient MANOHAR GLASER, STEVEN Vogel [facility] ER NAUSEA;CHEST PAIN;ABD PAIN;DIZZINESS [id number] 06/08/2017 21:42:00 06/09/2017 16:44:00 DIS Inpatient BOONE IRAHETA DO [facility] 4TH SYNCOPE,DEHYDRATION,URI LIKELY VIRAL,HYPOTENSION [id number] 04/30/2017 14:43:00 04/30/2017 23:59:59 CLS Outpatient BAIBARRY WHITTINGTON L HAT MENDER [facility] RAD R10.31 RT GROIN PAIN [id number] 03/24/2017 07:44:00 03/25/2017 11:25:00 DIS Outpatient AVANI GLASER FACWilder, SHAQUILLE TURCIOS CCDS [facility] CATH CAD,ISCHEMIC CM [id number] 03/04/2017 15:30:00 03/04/2017 23:59:59 CLS Outpatient BARRY REYES L HAT MENDER [facility] LAB I25.10, N18.3, I25.5, E78.4 [id number] 02/24/2017 08:00:00 02/25/2017 10:30:00 DIS Outpatient BARRY REYES L HAT MENDER [facility] CATH CAD,CAROTID ARTERIAL DISEASE [id number] 02/16/2017 05:23:00 02/16/2017 05:55:00 DIS Emergency MANOHAR GLASER, STEVEN Vogel [facility] ER GEN PAIN TOOTH PAIN [id number] 02/03/2017 07:24:00 02/03/2017 23:59:59 CLS Outpatient BAIBARRY WHITTINGTON L HAT MENDER [facility] CARD CAD [id number] 12/02/2016 08:30:00 12/02/2016 23:59:59 CLS Preadmit BAINELSY BARRY L HAT MENDER [facility] CARD CAD [id number] 11/25/2016 13:12:00 11/25/2016 23:59:59 CLS Outpatient BAINELSY BARRY L HAT MENDER [facility] RAD CAD [id number] 10/21/2016 00:45:00 10/21/2016 15:00:00 DIS Inpatient CINDY THOMPSON MD [facility] 4TH UTI,ENCEPHALOPATHY,HYPONATREMIA [id number] 10/07/2016 12:00:00 10/07/2016 23:59:59 CLS Preadmit AVANI SHAQUILLE GLASER FACC, FACP CCDS [facility] CARD R26.89 CLAUDICATION [id number] 09/25/2016 23:10:00 09/26/2016 11:15:00 DIS Inpatient CINDY THOMPSON MD [facility] 4TH SCHIZOPHRENIA,UTI,ALTERED MENTAL STATUS [id number] 11/26/2015 06:48:00 11/26/2015 08:11:00 DIS Emergency OTILIA DO, ANDREW K [facility] ER NAUSEA [id number] 06/20/2015 08:47:00 06/20/2015 23:59:59 CLS Outpatient BARRY REYES [facility] RAD CAD,HTN,HLP [id number] 06/20/2015 10:53:00 06/20/2015 13:55:00 DIS Emergency SORAYA MARTINS [facility] ER HIGH BLOOD SUGAR [id number] 06/30/2014 16:07:00 06/30/2014 23:59:59 CLS Outpatient SHAQUILLE JO MD, FACC, FACP CCDS [facility] LAB CAD,ISCHEMIC HEART DISEASE,CAROTID ARTERIAL DISEAS [id number] 09/05/2013 12:06:00 09/06/2013 12:38:00 DIS Inpatient CARLITA WAITE MD [facility] ICU SYNCOPE HYPERKALEMIA RENAL INSUFFICIENCY [id number] 09/24/2012 11:31:00 09/24/2012 14:53:00 DIS Emergency MAKENNA ODEN MD [facility] ER FELL L BACK PAIN [id number] 09/18/2012 11:29:00 09/18/2012 23:59:59 CLS Outpatient [id number] 08/16/2012 17:15:00 08/17/2012 14:53:00 DIS Inpatient CARLITA WAITE MD [facility] CSD SYNCOPYE,CP,HYPOMAGNESEMIA [id number] 07/20/2012 18:04:00 07/20/2012 23:59:59 CLS Outpatient [id number] 05/14/2014 18:01:00 Document Registration [id number] 01/14/2012 19:48:00 Document Registration [id number] 05/06/2011 03:25:00 Document Registration [id number] 04/17/2011 11:00:00 Document Registration [id number] 01/29/2011 09:53:00 Document Registration [id number] 01/28/2011 14:09:00 Document Registration [id number] 01/21/2011 15:15:00 Document Registration [id number] 01/16/2011 10:30:00 Document Registration [id number] 12/02/2010 13:54:00 Document Registration [id number] 09/18/2010 09:32:00 Document Registration [id number] 06/05/2010 19:49:00 Document Registration [id number] 05/31/2010 11:02:00 Document Registration [id number] 05/23/2010 09:27:00 Document Registration [id number] 05/20/2010 10:00:00 Document Registration [id number] 05/18/2010 09:49:00 Document Registration [id number] 05/16/2010 14:29:00 Document Registration [id number] 05/07/2010 15:08:00 Document Registration [id number] 04/25/2010 07:50:00 Document Registration [id number] 03/11/2010 16:05:00 Document Registration [id number] 02/07/2010 10:51:00 Document Registration
[2018-09-05] MEDS ORDERED: NS IV 1000 ML 1,000 ML IV SCH (13:25)
--- NOTE | 2018-09-05 13:29 | ED Syncope ---
General Chief Complaint: Dizziness/Syncope Stated Complaint: COUGH/COLD SYMPTOMS/SOB Nursing Triage Note: pt been cough. dizziness, and diarrhea Source of Information: Patient Exam Limitations: No Limitations History of Present Illness Date Seen by Provider: Sep 05, 2018 Time Seen by Provider: 13:20 Initial Comments Patient presents to ER by private conveyance with her where she was getting up from the bathroom walking to the bedroom and passed out. Her caught her said she didn't strike her head. She is on antiplatelets. She said the past several weeks now she's been sick with cough and hasn't gone to urgent care at her clinic, [facility] and was told she might have a cold or bronchitis and given and the Zithromax pack which she finished last week. She said it did help but today she started having diarrhea and has had poor appetite and fluid intake lately. No fevers chills or nausea. She has a history of coronary disease and th e pacemaker in place. She also has bad osteoarthritis in her right hip which she thinks she aggravated when she fell. Allergies and Home Medications Allergies Coded Allergies: Bleach (Sodium Hypochlorite) (Verified Allergy, Unknown, 09/25/16) corn (Unverified Allergy, Unknown, 02/07/10) perfume (Verified Allergy, Unknown, 09/25/16) Home Medications Acetaminophen 500 Mg Tablet, 1,000 MG PO Q6H PRN for PAIN-MILD, (Reported) TAKES 2 (500 MG) TABLETS Acetaminophen/Diphenhydramine 1 Each Tablet, 2 TAB PO HS, (Reported) Aspirin 81 Mg Tablet.dr, 81 MG PO BID, (Reported) Atorvastatin Calcium 40 Mg Tablet, 40 MG PO HS, (Reported) Carvedilol 12.5 Mg Tablet, 12.5 MG PO BID, (Reported) Clopidogrel Bisulfate 75 Mg Tablet, 75 MG PO DAILY, (Reported) Digoxin 125 Mcg Tablet, 125 MCG PO DAILY, (Reported) Diphenhydramine HCl 25 Mg Capsule, 25 MG PO HS PRN for ALLERGIES, (Reported) Enalapril Maleate 20 Mg Tablet, 20 MG PO HS, (Reported) Fish Oil/Dha/Epa 1 Each Capsule, 1,200 MG PO DAILY, (Reported) Insulin Aspart 300 Units/3 Ml Solution, 10 UNITS SC AC, (Reported) Insulin Determir 1,000 Units/10 Ml Soln, 10 UNITS SC BID, (Reported) Loperamide HCl 2 Mg Tablet, PO UD PRN for DIARRHEA, (Reported) Lurasidone HCl 80 Mg Tablet, 80 MG PO HS, (Reported) Multivitamin 1 Each Tablet, 1 TAB PO DAILY, (Reported) Patient Home Medication List Home Medication List Reviewed: Yes Review of Systems Constitutional: No chills, No diaphoresis, No fever, No malaise EENTM: No ear discharge, No ear pain Respiratory: cough; No short of breath Cardiovascular: No chest pain, No edema Gastrointestinal: No abdominal pain, No constipation; diarrhea; No nausea Genitourinary: No decreased output, No discharge Musculoskeletal: No back pain; joint pain (right hip) Past [facility] Hx Patient Social History Alcohol Use: Denies Use Recreational Drug Use: No Smoking Status: Never a Smoker 2nd Hand Smoke Exposure: No Recent Foreign Travel: No Contact w/Someone Who Travel: No Recent Infectious Disease Expo: No Recent Hopitalizations: No Physical Abuse: No Sexual Abuse: No Immunizations Up To Date Tetanus Booster (TDap): Unknown PED Vaccines UTD: No Date of Pneumonia Vaccine: Apr 09, 2010 Seasonal Allergies Seasonal Allergies: No Past Medical History Surgeries: Yes (right carotid endarterectomy, colonoscopy, valve replacement) CABG, Hysterectomy, Pacemaker Respiratory: No Currently Using CPAP: No Currently Using BIPAP: No Cardiac: Yes (has pacemaker/defibrillator, DOUBLE BYPASS) Coronary Artery Disease, High Cholesterol, Irregular Heartbeat Neurological: Yes Stroke Reproductive Disorders: No [employer] History: Hysterectomy Genitourinary: Yes UTI-Chronic Gastrointestinal: Yes Gall Bladder Disease Musculoskeletal: Yes Arthritis Endocrine: Yes Diabetes, Insulin dep HEENT: Yes Cataract, Macular Degeneration Loss of Vision: Denies Hearing Impairment: Denies Cancer: No Psychosocial: Yes Anxiety, Schizophrenia, Depression Integumentary: No Blood Disorders: No Adverse Reaction/Blood Tranf: No Family Medical History Family history: Diabetes mellitus 19 MOTHER Family history: Hypertension 19 FATHER 19 MOTHER Psychotic disorder G8 BROTHER (MENTAL HEALTH PROBLEMS) No Pertinent Family Hx Physical Exam Vital Signs Vital Signs - First Documented 09/05/18 13:05 Temp 97.1 Pulse 68 Resp 16 B/P (MAP) 74/54 (61) Pulse Ox 99 O2 Delivery Room Air Capillary Refill : Less Than 3 Seconds Height, Weight, BMI Height: 5'4.00" Weight: 160lbs. 9.0oz. 72.154710ck; 29.3 BMI Method:Stated General Appearance: No Apparent Distress HEENT: PERRL/EOMI, TMs Normal, Normal ENT Inspection; No Pharynx Normal, No Moist Mucous Membranes Neck: Full Range of Motion, Normal Inspection, Non Tender Cardiovascular: Regular Rate, Rhythm, No Edema, Normal Peripheral Pulses Respiratory: Chest Non Tender, Lungs Clear, Normal Breath Sounds, No Accessory Muscle Use, No Respiratory Distress Gastrointestinal: Normal Bowel Sounds, No Organomegaly, Non Tender, Soft Extremities: Normal Capillary Refill, Normal Inspection, No Pedal Edema Neurologic/Psychiatric: Alert, Oriented x3, No Motor/Sensory Deficits, Normal 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, 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 Norm as Tested Cranial Nerves: Normal Hearing, Normal Speech, PERRL Coordination/Gait: Normal Finger to Nose, Normal Gait Skin: Normal Color, Warm/Dry Focused Exam Lactate Level 09/05/18 13:40: Lactic Acid Level 2.09*H Lactic Acid Level Laboratory Tests Test 09/05/18 13:40 Lactic Acid Level 2.09 MMOL/L (0.50-2.00) *H Progress/Results/Core Measures Results/Orders Lab Results Laboratory Tests Test 09/05/18 13:17 09/05/18 13:40 09/05/18 14:01 Range/Units White Blood Count 13.3 H 4.3-11.0 10^3/uL Red Blood Count 4.71 4.35-5.85 10^6/uL Hemoglobin 13.9 11.5-16.0 G/DL Hematocrit 41 35-52 % Mean Corpuscular Volume 86 80-99 FL Mean Corpuscular Hemoglobin 30 25-34 PG Mean Corpuscular Hemoglobin Concent 34 32-36 G/DL Red Cell Distribution Width 13.5 10.0-14.5 % Platelet Count 205 130-400 10^3/uL Mean Platelet Volume 11.0 H 7.4-10.4 FL Neutrophils (%) (Auto) 85 H 42-75 % Lymphocytes (%) (Auto) 10 L 12-44 % Monocytes (%) (Auto) 4 0-12 % Eosinophils (%) (Auto) 0 0-10 % Basophils (%) (Auto) 0 0-10 % Neutrophils # (Auto) 11.3 H 1.8-7.8 X 10^3 Lymphocytes # (Auto) 1.3 1.0-4.0 X 10^3 Monocytes # (Auto) 0.6 0.0-1.0 X 10^3 Eosinophils # (Auto) 0.0 0.0-0.3 10^3/uL Basophils # (Auto) 0.1 0.0-0.1 10^3/uL Prothrombin Time 13.8 12.2-14.7 SEC INR Comment 1.0 0.8-1.4 Activated Partial Thromboplast Time 26 24-35 SEC Sodium Level 133 L 135-145 MMOL/L Potassium Level 6.0 H 3.6-5.0 MMOL/L Chloride Level 101 98-107 MMOL/L Carbon Dioxide Level 19 L 21-32 MMOL/L Anion Gap 13 5-14 MMOL/L Blood Urea Nitrogen 32 H 7-18 MG/DL Creatinine 2.37 H 0.60-1.30 MG/DL Estimat Glomerular Filtration Rate 20 BUN/Creatinine Ratio 14 Glucose Level 247 H 70-105 MG/DL Calcium Level 9.3 8.5-10.1 MG/DL Corrected Calcium 9.1 8.5-10.1 MG/DL Total Bilirubin 0.8 0.1-1.0 MG/DL Aspartate Amino Transf (AST/SGOT) 15 5-34 U/L Alanine Aminotransferase (ALT/SGPT) 16 0-55 U/L Alkaline Phosphatase 103 40-136 U/L Troponin I < 0.028 <0.028 NG/ML B-Type Natriuretic Peptide 39.5 <100.0 PG/ML Total Protein 7.4 6.4-8.2 GM/DL Albumin 4.2 3.2-4.5 GM/DL Lactic Acid Level 2.09 *H 0.50-2.00 MMOL/L Urine Color YELLOW Urine Clarity VERY CLOUDY H Urine pH 5 5-9 Urine Specific [place] 1.025 H 1.016-1.022 Urine Protein 2+ H NEGATIVE Urine Glucose (UA) 1+ H NEGATIVE Urine Ketones 1+ H NEGATIVE Urine Nitrite NEGATIVE NEGATIVE Urine Bilirubin 1+ H NEGATIVE Urine Urobilinogen 4 H NORMAL MG/DL Urine Leukocyte Esterase 3+ H NEGATIVE Urine RBC (Auto) 2+ H NEGATIVE Urine RBC 2-5 H /HPF Urine WBC 2-5 /HPF Urine Squamous Epithelial Cells 25-50 H /HPF Urine Crystals NONE /LPF Urine Bacteria FEW H /HPF Urine Casts NONE /LPF Urine Mucus NEGATIVE /LPF Urine Culture Indicated CULTURE PENDING My Orders Orders - STEVEN VILLELA Cbc With Automated Diff (09/05/18 13:25) Comprehensive Metabolic Panel (09/05/18 13:25) Blood Culture (09/05/18 13:25) Sputum Culture (09/05/18 13:25) Urinalysis (09/05/18 13:25) Urine Culture (09/05/18 13:25) Protime With Inr (09/05/18 13:25) Partial Thromboplastin Time (09/05/18 13:25) Chest 1 View, Ap/Pa Only (09/05/18 13:25) Ed Iv/Invasive Line Start (09/05/18 13:25) Ed Iv/Invasive Line Start (09/05/18 13:25) Ekg Tracing (09/05/18 13:25) Troponin I (09/05/18 13:25) Vital Signs Adult Sepsis Patie Q15M (09/05/18 13:25) O2 (09/05/18 13:25) Remove Rings In Anticipation O (09/05/18 13:25) Lactic Acid Analyzer (09/05/18 13:25) Ns Iv 1000 Ml (Sodium Chloride 0.9%) (09/05/18 13:25) Cefepime Injection (Maxipime Injection) (09/05/18 13:30) Ed Iv/Invasive Line Start (09/05/18 13:25) Ns Iv 1000 Ml (Sodium Chloride 0.9%) (09/05/18 13:25) BNP (09/05/18 13:25) Hip, Right, 2 Views (09/05/18 13:25) Ct Head/Cervical Spine Wo (09/05/18 13:29) Medications Given in ED Current Medications Medications Dose Ordered Sig/Roxana Route Start Time Stop Time Status Last Admin Dose Admin Cefepime HCl 1000 mg/Sterile Water 10 ml @ 200 mls/hr ONCE ONCE IV 09/05/18 13:30 09/05/18 13:32 DC 09/05/18 13:50 200 MLS/HR Vital Signs/I&O 09/05/18 09/05/18 13:05 14:30 Temp 97.1 97.8 Pulse 68 92 Resp 16 16 B/P (MAP) 74/54 (61) 97/55 (69) Pulse Ox 99 100 O2 Delivery Room Air Room Air Blood Pressure Mean: 61 Progress Progress Note : Time: 13:32 Progress Note Patient appears to be hypotensive with a history of diarrhea and recently ill. If she has more bowel movements may consider C. difficile colitis however at this time I would just rehydrate her and see if she is truly hypovolemic. Septic workup. Cefepime which would cover both respiratory, urinary or even GI bacterial infection. 2 L will be 30 mL/kg. She has some tenderness over her right hip so we'll obtain x-ray. CT without contrast of the head and C-spine. History of PCI, CABG, permanent pacemaker. Known to Dr. Jo. Initial ECG Impression Date: Sep 05, 2018 Initial ECG Impression Time: 13:31 Initial ECG Rate: 81 Initial ECG Rhythm: A Fib/Flutter Initial ECG Intervals: QT (437) Initial ECG Impression: Atrial Fibrillation Initial ECG Comparisson: Unchanged Comment 1-2 block depression in inferior and lateral leads seen Similar to previous EKGs. Diagnostic Imaging Diagonstic Imaging: Xray Plain Films/CT/US/NM/MRI: chest (1v) Comments NAME: REY HEARN [facility] REC#: [id number] PT STATUS: REG ER : 1950 PHYSICIAN: STEVEN VILLELA MD ADMIT DATE: 09/05/18/ER Draft Date of Exam:09/05/18 CHEST 1 VIEW, AP/PA ONLY EXAM: CHEST 1 VIEW, AP/PA ONLY INDICATION: Fall. Headache. Right hip pain. COMPARISON: Chest radiograph 07/16/2018. FINDINGS: Normal heart size and central pulmonary vascularity. AICD. Sternotomy. Calcified aorta. No focal pulmonary opacity, pleural effusion or pneumothorax. Cholecystectomy clips. No significant change. IMPRESSION: No acute cardiopulmonary findings. Dictated on workstation # [id number] Dict: 09/05/18 1507 Trans: 09/05/18 1513 [id number] Interpreted by: BOUBACAR LOZA MD Electronically signed by: Reviewed: Reviewed by Me Diagonstic Imaging: Xray Plain Films/CT/US/NM/MRI: hip (r) Comments [facility] [place], [place] NAME: REY HEARN [facility] REC#: [id number] PT STATUS: REG ER : 1950 PHYSICIAN: STEVEN VILLELA MD ADMIT DATE: 09/05/18/ER Draft Date of Exam:09/05/18 HIP, RIGHT, 2 VIEWS INDICATION: Fall, right hip pain. COMPARISON: None. EXAMINATION: Two views of the right hip were obtained. FINDINGS: Severe degenerative joint disease without obvious fracture or dislocation. Atherosclerosis is present. IMPRESSION: Severe degenerative joint disease without fracture. Dictated on workstation # [id number] Dict: 09/05/18 1508 Trans: 09/05/18 1512 [facility] [phone] Interpreted by: ANAI YOU Electronically signed by: Reviewed: Reviewed by Me Diagonstic Imaging: CT (noncontrast) Plain Films/CT/US/NM/MRI: c-spine, head Comments [facility] [place] [place] NAME: REY HEARN [facility] REC#: [id number] PT STATUS: REG ER : 1950 PHYSICIAN: STEVEN VILLELA MD ADMIT DATE: 09/05/18/ER Draft Date of Exam:09/05/18 CT HEAD/CERVICAL SPINE WO PROCEDURE: CT head and CT cervical spine without contrast. TECHNIQUE: Multiple contiguous axial images were obtained through the brain and cervical spine without the use of intravenous contrast. Sagittal and coronal reformations through the cervical spine were then performed. Auto Exposure Controls were utilized during the CT exam to meet ALARA standards for radiation dose reduction. INDICATION: Fall, head and neck injury. COMPARISON: 10/20/2016. FINDINGS: CT head: Ventricles are normal in size, shape, and position. There is no midline shift or mass effect. There is no hemorrhage or evidence of acute ischemia. No extra-axial fluid collection is seen. The bony calvarium, paranasal sinuses, and mastoids are clear. IMPRESSION: Negative CT head. CT cervical spine: Alignment is normal. There is no subluxation or fracture. Nqok-re-wyyhuezo degenerative changes are seen throughout the disc spaces and facet joints. There is no osseous lesion. IMPRESSION: No traumatic malalignment or fracture. Dictated on workstation # [id number] Dict: 09/05/18 1507 Trans: 09/05/18 1513 [id number] Interpreted by: ANAI YOU Electronically signed by: Reviewed: Reviewed by Me Departure Communication (Admissions) Time/Spoke to Admitting Phy: 15:25 Discussed case lab imaging with Dr. Gutierrez and she agrees to see the patient. ICU Impression Primary Impression: Syncope Qualified Codes: R55 - Syncope and collapse Additional Impressions: Hypotension Qualified Codes: I95.9 - Hypotension, unspecified Diarrhea Qualified Codes: R19.7 - Diarrhea, unspecified Sepsis Qualified Codes: A41.9 - Sepsis, unspecified organism Fall Qualified Codes: W19.XXXA - Unspecified fall, initial encounter Disposition: ADMITTED INPATIENT Condition: Stable Admissions Decision to Admit Reason: Admit from ER (General) Decision to Admit/Date: Sep 05, 2018 Time/Decision to Admit Time: 15:20 Departure-Patient Inst. Referrals: BOONE IRAHETA DO (PCP) Primary Care Physician WOOD CALDERON (Family) Primary Care Physician STEVEN VILLELA Sep 05, 2018 13:29
[2018-09-05] MEDS ORDERED: CEFEPIME INJECTION 1,000 MG in WATER (STERILE) FOR INJECTION 10 ML IV ONE (13:30)
--- NOTE | 2018-09-05 13:32 | NUR ---
dr said no need for ortho vs.
[2018-09-05 13:38] LABS: BASOPHILS # (AUTO) 0.1 10^3/uL (0.0-0.1); BASOPHILS % (AUTO) 0 % (0-10); EOSINOPHILS % (AUTO) 0 % (0-10); HEMATOCRIT 41 % (35-52); HEMOGLOBIN 13.9 G/DL (11.5-16.0); LYMPHOCYTES # (AUTO) 1.3 X 10^3 (1.0-4.0); LYMPHOCYTES % (AUTO) 10 % (12-44); MEAN CORPUSCULAR HEMOGLOBIN 30 PG (25-34); MEAN CORPUSCULAR HGB CONC 34 G/DL (32-36); MEAN CORPUSCULAR VOLUME 86 FL (80-99); MONOCYTES # (AUTO) 0.6 X 10^3 (0.0-1.0); MONOCYTES % (AUTO) 4 % (0-12); NEUTROPHILS # (AUTO) 11.3 X 10^3 (1.8-7.8); NEUTROPHILS % (AUTO) 85 % (42-75); PLATELET COUNT 205 10^3/uL (130-400); RED CELL DISTRIBUTION WIDTH 13.5 % (10.0-14.5); WHITE BLOOD COUNT 13.3 10^3/uL (4.3-11.0)
--- NOTE | 2018-09-05 13:40 | NUR ---
more labs from iv by me and given to lab in the room
[2018-09-05 13:44] LABS: PROTHROMBIN TIME PATIENT 13.8 SEC (12.2-14.7)
--- NOTE | 2018-09-05 13:47 | NUR ---
pt cleaned of old stool by elmer and bel
--- NOTE | 2018-09-05 13:48 | NUR ---
lab doing more labs
[2018-09-05 13:49] LABS: ALANINE AMINOTRANSFERASE 16 U/L (0-55); ALBUMIN 4.2 GM/DL (3.2-4.5); ALKALINE PHOSPHATASE 103 U/L (40-136); BILIRUBIN,TOTAL 0.8 MG/DL (0.1-1.0); BUN/CREATININE RATIO 14; CALCIUM 9.3 MG/DL (8.5-10.1); CARBON DIOXIDE 19 MMOL/L (21-32); CHLORIDE 101 MMOL/L (98-107); CREATININE SERUM 2.37 MG/DL (0.60-1.30); GFR ESTIMATED 20; GLUCOSE 247 MG/DL (70-105); SODIUM 133 MMOL/L (135-145); TOTAL PROTEIN 7.4 GM/DL (6.4-8.2)
--- NOTE | 2018-09-05 13:50 | NUR ---
both ns bolus going same time
--- NOTE | 2018-09-05 13:56 | NUR ---
cefipime given over 3 min.
--- NOTE | 2018-09-05 14:01 | NUR ---
hong ua by me w/o problems and to lab by me
[2018-09-05] MEDS: NS IV 1000 ML 1,000 ML IV SCH ×3 (14:08→22:19)
[2018-09-05 14:14] LABS: CLARITY,URINE VERY CLOUDY; COLOR,URINE YELLOW; GLUCOSE, URINE (UA) 1+ (NEGATIVE); KETONES,URINE 1+ (NEGATIVE); LEUKOCYTE ESTERASE ,URINE 3+ (NEGATIVE); NITRITE,URINE NEGATIVE (NEGATIVE); PH,URINE 5 (5-9); PROTEIN,URINE 2+ (NEGATIVE); UROBILINOGEN,URINE 4 MG/DL (NORMAL)
--- NOTE | 2018-09-05 14:23 | NUR ---
wanted me to call for bed. i called [place] [facility]
[2018-09-05 14:28] LABS: BILIRUBIN,URINE 1+ (NEGATIVE)
--- NOTE | 2018-09-05 14:28 | NUR ---
pt remains alert gcs 15. remains in the room. pt with no n/v/d noted in er visit thus far. no acute sighns of dyspnea noted though resp remains shallow nonlabored. tele now shows a fib 96. 1 liter of 2 completed on the boluss
--- NOTE | 2018-09-05 14:28 | NUR ---
pt to xr/ ct
[2018-09-05 14:29] LABS: BACTERIA,URINE FEW /HPF; SQUAMOUS EPITHELIAL CELL,UR 25-50 /HPF
--- NOTE | 2018-09-05 14:41 | NUR ---
i checked with dr at the beginning . he wanted 2 liter bolus.
--- NOTE | 2018-09-05 14:52 | NUR ---
pt back from ct. pt inc soft stool. pt cleaned by me and 200 left in 2 liter bolus.
--- NOTE | 2018-09-05 15:12 | Diagnostic Imaging Report ---
INDICATION: Fall, right hip pain. COMPARISON: None. EXAMINATION: Two views of the right hip were obtained. FINDINGS: Severe degenerative joint disease without obvious fracture or dislocation. Atherosclerosis is present. IMPRESSION: Severe degenerative joint disease without fracture. Dictated by: Dictated on workstation # [id number]
--- NOTE | 2018-09-05 15:14 | Diagnostic Imaging Report ---
EXAM: CHEST 1 VIEW, AP/PA ONLY INDICATION: Fall. Headache. Right hip pain. COMPARISON: Chest radiograph 07/16/2018. FINDINGS: Normal heart size and central pulmonary vascularity. AICD. Sternotomy. Calcified aorta. No focal pulmonary opacity, pleural effusion or pneumothorax. Cholecystectomy clips. No significant change. IMPRESSION: No acute cardiopulmonary findings. Dictated by: Dictated on workstation # [id number]
--- NOTE | 2018-09-05 15:14 | Diagnostic Imaging Report ---
PROCEDURE: CT head and CT cervical spine without contrast. TECHNIQUE: Multiple contiguous axial images were obtained through the brain and cervical spine without the use of intravenous contrast. Sagittal and coronal reformations through the cervical spine were then performed. Auto Exposure Controls were utilized during the CT exam to meet ALARA standards for radiation dose reduction. INDICATION: Fall, head and neck injury. COMPARISON: 10/20/2016. FINDINGS: CT head: Ventricles are normal in size, shape, and position. There is no midline shift or mass effect. There is no hemorrhage or evidence of acute ischemia. No extra-axial fluid collection is seen. The bony calvarium, paranasal sinuses, and mastoids are clear. IMPRESSION: Negative CT head. CT cervical spine: Alignment is normal. There is no subluxation or fracture. Ikds-ox-vdlqsobe degenerative changes are seen throughout the disc spaces and facet joints. There is no osseous lesion. IMPRESSION: No traumatic malalignment or fracture. Dictated by: Dictated on workstation # [id number]
--- NOTE | 2018-09-05 15:39 | NUR ---
pt remains alert gcs 15. remains in the room. pt denies chest pain. denies abd pain as " only when you push on it". relates dyspnea as " better". no acute sighns of dyspnea noted though resp now shallow nonlabored. denies nausea and no vomiting in er visit thus far. just the 1 soft inc stool in er. thus far. 2 liter bolus completed. ausc hr irreg and tele shows pace and capture 70. bp machine is 98/60 ausc hr 72 irreg aussc resp 16. recheck temp 97.3 p ox r/a is 100.
[2018-09-05] MEDS ORDERED: NS IV 1000 ML 1,000 ML IV ONE (15:45)
--- NOTE | 2018-09-05 16:02 | NUR ---
i just called report to admit nurse mena. i am waiting for admit papers then i will take pt to admit room.
--- NOTE | 2018-09-05 16:15 | NUR ---
i am taking pt to admit room now.
[2018-09-05] MEDS ORDERED: LOPERAMIDE 2 MG (IMODIUM) TABLET PO PRN (16:45)
[2018-09-05] MEDS ORDERED: ONDANSETRON 4 MG/2 ML (SDV) Z0FRAN IV PRN (16:45)
[2018-09-05] MEDS ORDERED: ANTACID SUSP 30 ML UDC (MYLANTA) PO PRN (17:00)
[2018-09-05] MEDS: ASPIRIN 81 MG CHEW (CHILDREN'S ASA) PO SCH (17:25)
[2018-09-05] MEDS: CLOPIDOGREL 75 MG (PLAVIX) TABLET PO SCH (17:25)
[2018-09-05] MEDS: DIGOXIN 0.125 MG (LANOXIN) TAB PO SCH (17:25)
[2018-09-05] MEDS: inSUlin ASPART (NovoLOG) 1 UNIT/0.01 ML (CHARGE PER UNIT) SC SCH (20:52)
[2018-09-05] MEDS: ACETAMINOPHEN 500 MG TAB (TYLENOL) PO PRN (20:52)
[2018-09-05 21:57] LABS: CALCIUM 7.5 MG/DL (8.5-10.1); CREATININE SERUM 1.9 MG/DL (0.60-1.30); MAGNESIUM 1.3 MG/DL (1.8-2.4); PHOSPHORUS 3.9 MG/DL (2.3-4.7); POTASSIUM 4.9 MMOL/L (3.6-5.0)
[2018-09-05] MEDS ORDERED: MAGNESIUM 1 GM/100 ML IVPB 200 ML IV ONE (22:27)
[2018-09-05] MEDS: MAGNESIUM 1 GM/100 ML IVPB 100 ML IV SCH ×2 (22:39→23:45)
[2018-09-06] VITALS (15 sets, daily range): BP systolic 103–149; BP diastolic 54–75
[2018-09-06 03:25] LABS: BASOPHILS % (AUTO) 1 % (0-10); EOSINOPHILS # (AUTO) 0.1 10^3/uL (0.0-0.3); EOSINOPHILS % (AUTO) 2 % (0-10); HEMATOCRIT 32 % (35-52); HEMOGLOBIN 10.7 G/DL (11.5-16.0); LYMPHOCYTES # (AUTO) 1.6 X 10^3 (1.0-4.0); LYMPHOCYTES % (AUTO) 23 % (12-44); MEAN CORPUSCULAR HEMOGLOBIN 29 PG (25-34); MEAN CORPUSCULAR HGB CONC 33 G/DL (32-36); MEAN CORPUSCULAR VOLUME 89 FL (80-99); MEAN PLATELET VOLUME 10.9 FL (7.4-10.4); MONOCYTES # (AUTO) 0.6 X 10^3 (0.0-1.0); MONOCYTES % (AUTO) 9 % (0-12); NEUTROPHILS # (AUTO) 4.7 X 10^3 (1.8-7.8); NEUTROPHILS % (AUTO) 66 % (42-75); PLATELET COUNT 126 10^3/uL (130-400); WHITE BLOOD COUNT 7.2 10^3/uL (4.3-11.0)
[2018-09-06 03:44] LABS: CALCIUM 7.7 MG/DL (8.5-10.1); CREATININE SERUM 1.62 MG/DL (0.60-1.30); MAGNESIUM 1.8 MG/DL (1.8-2.4); PHOSPHORUS 3.2 MG/DL (2.3-4.7); POTASSIUM 4.6 MMOL/L (3.6-5.0)
[2018-09-06] MEDS: NS IV 1000 ML 1,000 ML IV SCH ×2 (04:15→12:56)
[2018-09-06] MEDS: inSUlin ASPART (NovoLOG) 1 UNIT/0.01 ML (CHARGE PER UNIT) SC SCH ×5 (04:53→20:54)
--- NOTE | 2018-09-06 05:59 | Diagnostic Imaging Report ---
Indication: Shortness of breath Portable chest 3:24 AM There are postop changes from CABG surgery. There is a dual-chamber pacemaker. Heart size and pulmonary vascularity are normal. Lungs are clear. There are no effusions or pneumothoraces. Impression: No acute abnormalities in the chest Dictated by: Dictated on workstation # [id number]
[2018-09-06] MEDS ORDERED: POTASSIUM CL 10MEQ/50ML IVPB 50 ML IV SCH (06:00)
[2018-09-06] MEDS ORDERED: KCL 20 MEQ TAB (K-DUR) PO SCH (06:00)
[2018-09-06] MEDS ORDERED: MAGNESIUM 1 GM/100 ML IVPB 100 ML IV SCH (06:00)
[2018-09-06] MEDS: CLOPIDOGREL 75 MG (PLAVIX) TABLET PO SCH (08:08)
[2018-09-06] MEDS: ASPIRIN 81 MG CHEW (CHILDREN'S ASA) PO SCH (08:08)
[2018-09-06] MEDS: DIGOXIN 0.125 MG (LANOXIN) TAB PO SCH (08:08)
[2018-09-06] MEDS: ACETAMINOPHEN 500 MG TAB (TYLENOL) PO PRN (08:20)
--- NOTE | 2018-09-06 10:42 | History & Physical-Hospitalist ---
History of Present Illness HPI/Chief Complaint Chief Complaint: Orthostatic hypotension with syncope HPI: This is a 67yoWF of [facility] who has a PMH of coronary artery bypass graph in addition to pacemaker f/u by Dr. Jo who presented after several days of diarrhea feeling weak and had a syncope episode and had a fall. C diff was sent off but she is no longer having diarrhea. She was given 2 liters of IV fluids yesterday which improved her hypotension tremendously and we are trying to find her home medication list to verify and restart everything except for her BP medications. Dr. Jo will be consulted in case anything to do with cardiac issue placed her at risk for syncope. We will initiate PT and OT and transfer to fourth floor today. Source: patient Exam Limitations: no limitations Date Seen 09/06/18 Time Seen by a Provider: 10:00 Attending Physician Silvia Gutierrez MD PCP Anastasia King DO Referring Physician Date of Admission Sep 05, 2018 at 15:35 Home Medications & Allergies Home Medications Reviewed patient Home Medication Reconciliation performed by pharmacy medication reconciliations transportation technician and/or nursing. Patients Allergies have been reviewed. Allergies Allergies Coded Allergies Bleach (Sodium Hypochlorite) (Verified Allergy, Unknown, 09/25/16) corn (Unverified Allergy, Unknown, 02/07/10) perfume (Verified Allergy, Unknown, 09/25/16) Past Gfthpoy-Gqtcjl-Dmaskc Hx Past Med/Social Hx: Reviewed Nursing Past Med/Soc Hx, Reviewed and Corrections made Patient Social History Marrital Status: Employed/Student: retired Alcohol Use: Denies Use Recreational Drug Use: No Smoking Status: Never a Smoker 2nd Hand Smoke Exposure: No Recent Foreign Travel: No Contact w/other who traveled: No Recent Hopitalizations: No Recent Infectious Disease Expo: No Immunizations Up To Date Tetanus Booster (TDap): Unknown Pediatric: No Date of Pneumonia Vaccine: Sep 05, 2016 Seasonal Allergies Seasonal Allergies: No Past Medical History Surgeries: CABG, Hysterectomy, Pacemaker Currently Using CPAP: No Currently Using BIPAP: No Cardiac: Coronary Artery Disease, High Cholesterol, Irregular Heartbeat Neurological: Stroke Reproductive: No Hysterectomy Genitourinary: UTI-Chronic Gastrointestinal: Gall Bladder Disease Musculoskeletal: Arthritis Endocrine: Diabetes, Insulin dep HEENT: Cataract, Macular Degeneration Loss of Vision: Denies Hearing Impairment: Denies Psychosocial: Anxiety, Schizophrenia, Depression History of Blood Disorders: No Adverse Reaction to Blood Wilcox: No Family History Family history: Diabetes mellitus 19 MOTHER Family history: Hypertension 19 FATHER 19 MOTHER Psychotic disorder G8 BROTHER (MENTAL HEALTH PROBLEMS) No Pertinent Family Hx Review of Systems Constitutional: see HPI, dizziness, malaise, weakness EENTM: no symptoms reported Respiratory: no symptoms reported Cardiovascular: no symptoms reported Gastrointestinal: diarrhea Genitourinary: no symptoms reported Musculoskeletal: no symptoms reported Skin: no symptoms reported Psychiatric/Neurological: No Symptoms Reported All Other Systems Reviewed Negative Unless Noted: Yes Physical Exam Physical Exam Vital Signs Vital Signs - First Documented 09/05/18 13:05 Temp 97.1 Pulse 68 Resp 16 B/P (MAP) 74/54 (61) Pulse Ox 99 O2 Delivery Room Air Capillary Refill : Less Than 3 Seconds Height, Weight, BMI Height: 5'4.00" Weight: 160lbs. 0.0oz. 72.145695fh; 29.3 BMI Method:Stated General Appearance: No Apparent Distress, WD/WN, Chronically ill Eyes: Right Eye Normal Inspection, Right Eye PERRL HEENT: PERRL/EOMI, Normal ENT Inspection, Pharynx Normal, Moist Mucous Membranes Neck: Full Range of Motion, Normal Inspection, Non Tender Respiratory: Chest Non Tender, Lungs Clear, Normal Breath Sounds, No Accessory Muscle Use, No Respiratory Distress Cardiovascular: Regular Rate, Rhythm, No Edema, No Gallop, No JVD, No Murmur, Normal Peripheral Pulses Gastrointestinal: Normal Bowel Sounds, No Organomegaly, No Pulsatile Mass, Non Tender, Soft Back: Normal Inspection, No CVA Tenderness, No Vertebral Tenderness Extremity: Normal Capillary Refill, Normal Inspection, Normal Range of Motion, Non Tender, No Calf Tenderness, No Pedal Edema Neurologic/Psychiatric: Alert, Oriented x3, No Motor/Sensory Deficits, Normal Mood/Affect Skin: Normal Color, Warm/Dry Lymphatic: No Adenopathy Results Results/Procedures Labs Laboratory Tests 09/05/18 13:17 09/05/18 21:30 09/06/18 03:04 Patient resulted labs reviewed. Assessment/Plan Admission Diagnosis Assessment: Syncope Profound volume depletion Diarrhea Dehydration CAD Pacemaker Emotional problems Plan: IVF Tx to 4th Home meds Hold BP meds Consult Dr Jo Admission Status: Inpatient Order (span 2 midnights) Reason for Inpatient Admission: Severe hypotnesion with volume depletion will require 4 days Diagnosis/Problems Diagnosis/Problems (1) Syncope Status: Acute Qualifiers: Syncope type: unspecified Qualified Codes: R55 - Syncope and collapse (2) Hypotension Status: Acute Qualifiers: Hypotension type: unspecified hypotension type Qualified Codes: I95.9 - Hypotension, unspecified (3) Diarrhea Status: Acute Qualifiers: Diarrhea type: unspecified type Qualified Codes: R19.7 - Diarrhea, unspecified (4) Fall Status: Acute Qualifiers: Encounter type: initial encounter Qualified Codes: W19.XXXA - Unspecified fall, initial encounter (5) Gait instability (6) Leukocytosis Status: Acute Qualifiers: Leukocytosis type: leukemoid reaction Qualified Codes: D72.823 - Leukemoid reaction (7) Renal insufficiency Status: Acute (8) HLD (hyperlipidemia) Status: Chronic Qualifiers: Hyperlipidemia type: mixed hyperlipidemia Qualified Codes: E78.2 - Mixed hyperlipidemia (9) CAD (coronary artery disease) Status: Chronic Qualifiers: Coronary Disease-Associated Artery/Lesion type: douglas artery [place] vs. transplanted heart: douglas heart Associated angina: without angina Qualified Codes: I25.10 - Atherosclerotic heart disease of douglas coronary artery without angina pectoris Clinical Quality Measures DVT/VTE Risk/Contraindication: Risk Factor Score Per Nursin RFS Level Per Nursing on Admit: 4+=Very High COLLINS APODACA DO Sep 06, 2018 10:42
--- NOTE | 2018-09-06 11:28 | Consultation-Cardiology ---
HPI-Cardiology Cardiology Consultation: Date of Consultation 09/06/18 Time Seen by a Provider: 11:05 Date of Admission 09-05-18 Attending Physician Mart Banks MD Admitting Physician Anastasia King DO Consulting Physician Shaquille Jo MD HPI: Chief Complaint: Syncope Hypotension Ms. Rodríguez is a 67 year old female brought into the ED d/t syncopal episode at home. She reports she has been having nausea and diarrhea for several days with poor appetite and intake. She was getting up from using the bathroom at home, became dizzy and passed out. Her spouse was with her and was able to catch her. She She denies any dyspnea. She does report frequent non-productive cough for several weeks for which she was on a Z-pack. No c/o LE swelling. No c/o fever or chills. No c/o chest pain. Review of Systems-Cardiology Review of Systems Constitutional: No chills, No fever; malaise Eyes: No vision change Ears/Nose/Throat: No epistaxis, No recent hearing loss Respiratory: As described under HPI Cardiovascular: As described under HPI Gastrointestinal: As described under HPI Genitourinary: No dysuria, No hematuria Musculoskeletal: no symptoms reported Skin: No rash on exposed areas, No ulcerations on exposed areas Psychiatric/Neurological: As described under HPI Hematologic: No bleeding abnormalities XIH-Oriwxw-Bmqrhg Hx Patient Social History Alcohol Use: Denies Use Recreational Drug Use: No Smoking Status: Never a Smoker 2nd Hand Smoke Exposure: No Recent Foreign Travel: No Recent Infectious Disease Expo: No Immunizations Up To Date Tetanus Booster (TDap): Unknown Date of Pneumonia Vaccine: Sep 05, 2016 Past Medical History PMH As described under Assessment. Family Medical History Family Medical History: She reports her father and mother both had HTN. No report of premature CAD or SCD. Family History: Family history: Diabetes mellitus 19 MOTHER Family history: Hypertension 19 FATHER 19 MOTHER Psychotic disorder G8 BROTHER (MENTAL HEALTH PROBLEMS) Allergies and Home Medications Allergies Coded Allergies: Bleach (Sodium Hypochlorite) (Verified Allergy, Unknown, 09/25/16) corn (Unverified Allergy, Unknown, 02/07/10) perfume (Verified Allergy, Unknown, 09/25/16) Home Medications Acetaminophen 500 Mg Tablet, 1,000 MG PO Q6H PRN for PAIN-MILD, (Reported) TAKES 2 (500 MG) TABLETS Aspirin 81 Mg Tablet.dr, 81 MG PO BID, (Reported) Atorvastatin Calcium 40 Mg Tablet, 40 MG PO HS, (Reported) Carvedilol 12.5 Mg Tablet, 12.5 MG PO BID, (Reported) Clopidogrel Bisulfate 75 Mg Tablet, 75 MG PO DAILY, (Reported) Digoxin 125 Mcg Tablet, 125 MCG PO DAILY, (Reported) Enalapril Maleate 20 Mg Tablet, 20 MG PO DAILY, (Reported) Insulin Aspart 300 Units/3 Ml Solution, 15 UNITS SC 1200,1800, (Reported) TAKES WITH LUNCH AND SUPPER Insulin Detemir 100 Unit/1 Ml Insuln.pen, 20 UNIT SQ BID, (Reported) Lurasidone HCl 80 Mg Tablet, 80 MG PO HS, (Reported) Metformin HCl 500 Mg Tab.er.24h, 500 MG PO BID, (Reported) Multivitamin 1 Each Tablet, 1 TAB PO DAILY, (Reported) Noble 3 Polyunsat Fatty Acids 1,000 Mg Cap, 1,000 MG PO BID, (Reported) Physical Exam-Cardiology Physical Exam Vital Signs/I&O 09/07/18 09/07/18 09/07/18 00:15 03:43 08:00 Temp 98.0 97.3 97.4 Pulse 72 70 69 Resp 18 18 18 B/P (MAP) 138/63 (88) 145/68 (93) 168/81 (110) Pulse Ox 96 98 99 O2 Delivery Room Air Room Air Room Air 09/07/18 00:00 Intake Total 1890 ml Output Total 2750 ml Balance -860 ml Capillary Refill : Less Than 3 Seconds Constitutional: AAO x 3, well-developed, well-nourished HEENT: PERRL, hearing is well preserved, oral hygience is good Neck: No carotid bruit; carotid pulses are 2 + bilaterally Respiratory: No accessory muscle use, No respiratory distress; chest expansion is symmetric, chest is bilaterally symmetric, lungs clear to auscultation Cardiovascular: regular rate-rhythm; No JVD; S1 and S2 Gastrointestinal: No tender; soft, round Rectal: deferred Extremities: swelling (mild bilat LE swelling) Neurologic/Psychiatric: grossly intact, power is 5/5 both on sides Skin: No rash on exposed areas, No ulcerations on exposed areas Data Review Labs Laboratory Tests 09/06/18 12:06: Glucometer 162H 09/06/18 16:28: Glucometer 154H 09/06/18 21:07: Glucometer 115H 09/07/18 05:30: White Blood Count 5.9, Red Blood Count 3.82L, Hemoglobin 11.2L, Hematocrit 34L, Mean Corpuscular Volume 88, Mean Corpuscular Hemoglobin 29, Mean Corpuscular Hemoglobin Concent 33, Red Cell Distribution Width 13.3, Platelet Count 165, Mean Platelet Volume 10.5H, Neutrophils (%) (Auto) 73, Lymphocytes (%) (Auto) 19, Monocytes (%) (Auto) 6, Eosinophils (%) (Auto) 2, Basophils (%) (Auto) 1, Neutrophils # (Auto) 4.3, Lymphocytes # (Auto) 1.1, Monocytes # (Auto) 0.4, Eosinophils # (Auto) 0.1, Basophils # (Auto) 0.0, Sodium Level 137, Potassium Level 5.2H, Chloride Level 113H, Carbon Dioxide Level 19L, Anion Gap 5, Blood Urea Nitrogen 19H, Creatinine 0.93, Estimat Glomerular Filtration Rate 60, BUN/Creatinine Ratio 20, Glucose Level 77, Calcium Level 7.9L, Corrected Calcium 8.5, Total Bilirubin 0.4, Aspartate Amino Transf (AST/SGOT) 14, Alanine Aminotransferase (ALT/SGPT) 13, Alkaline Phosphatase 84, Total Protein 5.7L, Albumin 3.2 09/07/18 05:57: Glucometer 75 Microbiology 09/05/18 Blood Culture - Preliminary, Resulted No growth 09/05/18 C. difficile GDH Antigen & Toxins - Final, Complete 09/05/18 MRSA Screen - Final, Complete MRSA not isolated 09/05/18 Urine Culture - Preliminary, Resulted Enterococcus faecalis Radiology NAME: REY RODRÍGUEZ [facility] REC#: [id number] PT STATUS: ADM IN : 1950 PHYSICIAN: MART BANKS MD ADMIT DATE: 09/05/18/ICU Signed Date of Exam: 09/06/18 CHEST 1 VIEW, AP/PA ONLY Indication: Shortness of breath Portable chest 3:24 AM There are postop changes from CABG surgery. There is a dual-chamber pacemaker. Heart size and pulmonary vascularity are normal. Lungs are clear. There are no effusions or pneumothoraces. Impression: No acute abnormalities in the chest Dictated by: Dictated on workstation # [id number] Dict: 09/06/18 0556 Trans: 09/06/18556 Interpreted by: RUFINO CROOK MD Electronically signed by: RUFINO CROOK MD 09/06/1857 NAME: REY RODRÍGUEZ [facility] REC#: [id number] PT STATUS: REG ER : 1950 PHYSICIAN: STEVEN VILLELA MD ADMIT DATE: 09/05/18/ER Signed Date of Exam: 09/05/18 CT HEAD/CERVICAL SPINE WO PROCEDURE: CT head and CT cervical spine without contrast. TECHNIQUE: Multiple contiguous axial images were obtained through the brain and cervical spine without the use of intravenous contrast. Sagittal and coronal reformations through the cervical spine were then performed. Auto Exposure Controls were utilized during the CT exam to meet ALARA standards for radiation dose reduction. INDICATION: Fall, head and neck injury. COMPARISON: 10/20/2016. FINDINGS: CT head: Ventricles are normal in size, shape, and position. There is no midline shift or mass effect. There is no hemorrhage or evidence of acute ischemia. No extra-axial fluid collection is seen. The bony calvarium, paranasal sinuses, and mastoids are clear. IMPRESSION: Negative CT head. CT cervical spine: Alignment is normal. There is no subluxation or fracture. Beop-tz-rodkmttv degenerative changes are seen throughout the disc spaces and facet joints. There is no osseous lesion. IMPRESSION: No traumatic malalignment or fracture. Dictated by: Dictated on workstation # [id number] Dict: 09/05/18 1507 Trans: 09/05/18 1521 Interpreted by: ANAI YOU Electronically signed by: ANAI YOU 09/05/18 1521 A/P-Cardiology Assessment/Admission Diagnosis Syncopal episode of undetermined etiology - likely d/t orthostatic hypotension d/t volume depletion Nausea/diarrhea x several days of undetermined etiology Electrolyte abnormalities likely d/t diarrhea Acute renal insufficiency d/t dehydration CAD with a h/o CABG in 2004. Cardiac cath of 02-24-17: Severe nikolski coronary artery disease consisting of 70% ostial stenosis of the left main coronary artery, 99% to 100% stenosis of the mid left anterior descending artery, occlusion of the proximal left circumflex artery and severe mid vessel stenosis of the right coronary artery. The severe mid vessel stenosis of the right coronary artery was treated with Alpine Xience 3.0 x 30 mm stent, which reduced the stenosis to 0% residual. The right coronary artery also has 50% ostial stenosis. Patent aortocoronary graft to an obtuse marginal artery, but the obtuse marginal artery, distal to the stent, has an 80% stenosis and is a relatively small caliber vessel. Patent left internal mammary artery graft to the mid left anterior descending artery, but the left anterior descending artery is of a small caliber and is occluded in its distal portion. Elevated left ventricular end-diastolic pressure. Cardiac cath of 03/24/17: successful stenting (2.25x12 Alp Xience) of an OM distal to SVG insertion Abnormal stress test. MPI of 02/03/17: small to mod anteroseptal ischemia, no R WMA, LVEF 62% Epidoes of syncope in August 2013 that was due to postural hypotension due to dehydration DM II H/o CKD, stage 2-3 Hypertension H/o ischemic cardiomyopathy but most recent echo of June 2017 is reported to have shown LVEF 55-60%; trivial AoR. Mild-mod TR. PASP 35-40mmHg Pacemaker/defib implantation in Apr 2010, functioning normally on interrogation carried out on 06/02/18 Abnormal ECG. ECG on 08/20/16 shows paced atrial rhythm, nikolski vent rhythm with diffuse repol abnormality (unchanged from previous ECG) Chronically abnormal ECG Carotid arterial disease with h/o R CEA by Dr Rosales in the , according to the patient. Carotid u/s of May 2018: mild bilat carotid plaque Intermittent non-compliance with medical instructions HLP - followed by her PCP Hyperthyroidism per lab of June 2014 - followed by her PCP H/o emilie in the . She has had some speech impairment since then. Has recovered from R-sided weakness Bilateral leg discomfort - segmental pressures of November 2016 is non- diagnostic d/t noncompressibility of the leg vessels. Waveforms however, appear to be good H/o schizophrenia Discussion and Recomendations Syncopal episode likely d/t volume depletion d/t diarrhea and poor oral intake - replace volume Reduce antihypertensives Replace electrolytes Management of diarrhea is with the medical services Further recs will be based on her hospital course We would like to thank medical services for this consult Clinical Quality Measures DVT/VTE Risk/Contraindication: Risk Factor Score Per Nursin RFS Level Per Nursing on Admit: 4+=Very High BARRY REYES Sep 06, 2018 11:28
--- NOTE | 2018-09-06 12:09 | Physical Therapy Evaluation ---
PT Evaluation-General Medical Diagnosis Admission Date Sep 05, 2018 at 15:35 Medical Diagnosis: sepsis/syncope/fall Onset Date: Sep 05, 2018 Therapy Diagnosis Therapy Diagnosis: debility Height/Weight Height (Feet): 5 Height (Inches): 4.00 Weight (Pounds): 160 Weight (Ounces): 0.0 Precautions Precautions/Isolations: Fall Prevention, Standard Precautions Referral Physician: Erika Reason for Referral: Evaluation/Treatment Medical History Pertinent Medical History: Arthritis, CABG, CAD, CVA, DM, HTN, Macular Degenertion Current History ER secondary to dizziness/syncope/hypotension Reviewed History: Yes Social History Home: Single Level Current Living Status: Spouse Entry Into Home: Level Entry Prior/Core FIM Prior Level of Function Therapy Code Descriptions/Definitions Functional [place] Measure: 0=Not Assessed/NA 4=Minimal Assistance 1=Total Assistance 5=Supervision or Setup 2=Maximal Assistance 6=Modified [place] 3=Moderate Assistance 7=Complete [place] Therapy Quality Codes: 6 Independent with activity with or without an assistive device 5 Patient requires set up or clean up by helper. Patient completes activity by themselves 4 Supervision or touching assist (CGA). Dunn provide cues , steadying assist 3 The helper provides less than half the effort to complete the activity 2 The helper provides more than half the effort to complete the activity 1 Dependent. The helper does all the effort to complete an activity 7 Patient refused to complete or attempt activity 9 The patient did not perform the activity before the current illness or injury 88 Not attempted due to Medical conditions or safety concerns Functional Abilities and Goals: Independent: Patient completed the activities by him/herself, with or without an assistive device, with no assistance from a helper. Needed Some Help: Patient needed partial assistance from another person to complete activities. Dependent: A helper completed the activities for the patient. Unknown: Not Applicable: Bed Mobility: 6 Transfers (B,C,W/C) (FIM): 6 Gait: 6 Indoor Mobility (Ambulation): Independent Stairs: Not [place] Prior Devices Use: Other-see list below Prior Device Use: cane PT Evaluation-Current Subjective Patient reports she is feeling much better on this date and agrees to PT. Pain Numeric Pain Scale: 0-No Pain Location: No Pain Reported Objective Patient Orientation: Normal For Age Problem Solving: Fair Attachments: Shell Catheter ROM/Strength ROM Lower Extremities bilateral LE WFL Strength Lower Extremities 4/5 grossly bilaterally Integumentary/Posture Integumentary refer to nursing notes Bladder Incontinence: Shell Cath Posture WFL Neuromuscular (Tone, Coordination, Reflexes) grossly intact Sensory Vision: Functional Hearing: Functional Sensation Right Lower Extremit: Impaired Sensation Left Lower Extremity: Impaired Transfers Therapy Code Descriptions/Definitions Functional [place] Measure: 0=Not Assessed/NA 4=Minimal Assistance 1=Total Assistance 5=Supervision or Setup 2=Maximal Assistance 6=Modified [place] 3=Moderate Assistance 7=Complete [place] Transfers (B, C, W/C) (FIM): 6 Scootin Sit to/from Stand: 6 Gait Mode of Locomotion: Walk Anticipated Mode of Locomotion: Walk Gait (FIM): 6 Distance (FIM): 3=150 ft Distance: 225' Gait Level of Assist: 6 Gait Assistive Device: FWW Comments/Gait Description steady, functional gait sequence with FWW Balance Sitting Static: Normal Sitting Dynamic: Normal Standing Static: Normal Standing Dynamic: Normal Assessment/Needs 67 y.o. female, will be seen x 2 sessions to address functional strength and mobility to ensure safe return to home with spouse. Rehab Potential: Fair Post Rehab Potential-Barriers: compliance PT Short Term Goals Short Term Goals Time Frame: Sep 08, 2018 Transfers (B,C,W/C) (FIM): 6 Gait (FIM): 6 Distance (FIM): 3=150 ft Gait Distance Comment: 250' Gait Level of Assist: 6 Gait Assistive Device: FWW PT Plan Treatment/Plan Treatment Plan: Continue Plan of Care Treatment Plan: Education, Functional Activity Corine, Functional Strength, Gait, Safety, Therapeutic Exercise Treatment Duration: Sep 08, 2018 Frequency: 2 times per week Estimated Hrs Per Day: .25 hour per day Patient and/or Family Agrees t: Yes Discharge Recommendations Therapy D/C Recommendations: Home w/ Family Support Time/GCodes Time In: 1110 Time Out: 1123 Total Billed Treatment Time: 13 Total Billed Treatment 1 visit EVLowC 13 min DANNY PAYNE PT Sep 06, 2018 12:08
--- NOTE | 2018-09-06 12:10 | NUR ---
Report given to DALTON Lane who will assume pt care on arrival to 4th floor room 412. NT to move pt at this time. Personal belongings with pt at this time.
[2018-09-06] MEDS ORDERED: MULT1TAB69 PO (12:42)
[2018-09-06] MEDS ORDERED: INSU100I29 SQ (12:42)
[2018-09-06] MEDS ORDERED: METF500T8 PO (12:42)
[2018-09-06] MEDS ORDERED: OMG1KC PO (12:42)
--- NOTE | 2018-09-06 12:48 | NUR ---
SPOKE WITH THE PATIENT ABOUT HER MEDICATIONS. I HAD CALLED AND GOTTEN A LIST OF RECENTLY FILLED MEDICATIONS FROM [facility] AND WENT OVER THAT LIST WITH THE PATIENT. [facility] FILLED: 08-27-18 ZFOUZIAK (FINISHED) 08-24-18 COREG 12.5MG BID 08-24-18 METFORMIN ER 500MG 1 BID X 7 DAYS THEN INCREASE TO 2 BID (DID NOT REALIZE IT STATED TO INCREASE, SHE IS ONLY TAKING 1 BID HOWEVER SHE STATES SHE HAS BEEN ON THIS FOR YEARS) 08-11-18 TESSALON 100MG TID #30 (NO LONGER TAKING) 08-10-18 LEVEMIR 20 UNITS BID 08-10-18 LIPITOR 40MG DAILY 08-03-18 DIGOXIN 125MCG DAILY 08-03-18 ENALAPRIL 20MG DAILY 08-03-18 PLAVIX 75MG DAILY 06-23-18 NOVOLOG PENS 20 LUNCH AND SUPPER (STATES SHE USES 15 WITH NOON AND EVENING MEAL) I CALLED [facility] AND THEY VERIFIED THE PATIENT RECEIVES LATUDA 80MG HS FROM [facility]. OTC MEDS: MTV DAILY FISH OIL BID ASPIRIN 81MG BID TYLENOL PRN
[2018-09-06] MEDS ORDERED: ACETAMINOPHEN 500 MG TAB (TYLENOL) PO PRN (13:45)
[2018-09-06] MEDS: POTASSIUM CHLORIDE INJ 10 MEQ in NS IV 1000 ML 1,000 ML IV SCH (15:29)
--- NOTE | 2018-09-06 15:50 | Occupational Therapy Eval ---
OT Evaluation-General/PLF Medical Diagnosis Admission Date Sep 05, 2018 at 15:35 Medical Diagnosis: sepsis/syncope/fall Onset Date: Sep 05, 2018 Therapy Diagnosis Therapy Diagnosis: Weakness Height/Weight Height (Feet): 5 Height (Inches): 4.00 Weight (Pounds): 160 Weight (Ounces): 0.0 Precautions Precautions/Isolations: Fall Prevention, Standard Precautions Safety Interventions: None Weight Bear Status Weight Bearing Restriction: Weight Bearing/Tolerated Referral Physician: Erika Referral Reason: Activity Tolerance, Self Care, Evaluation/Treatment, Strengthening/ROM Medical History Pertinent Medical History: Arthritis, CABG, CAD, CVA, DM, HTN, Macular Degenertion, OA Additional Medical History Pacemaker, CVA, hysterectomy Current History Pt. passed out at home. Spouse present. Pt. brought to ER. Reviewed History: Yes Social History Home: Single Level Current Living Status: Spouse Entry Into Home: Ramp ADL-Prior Level of Function Therapy Code Descriptions/Definitions Functional [place] Measure: 0=Not Assessed/NA 4=Minimal Assistance 1=Total Assistance 5=Supervision or Setup 2=Maximal Assistance 6=Modified [place] 3=Moderate Assistance 7=Complete [place] Therapy Quality Codes: 6 Independent with activity with or without an assistive device 5 Patient requires set up or clean up by helper. Patient completes activity by themselves 4 Supervision or touching assist (CGA). Walker provide cues , steadying assist 3 The helper provides less than half the effort to complete the activity 2 The helper provides more than half the effort to complete the activity 1 Dependent. The helper does all the effort to complete an activity 7 Patient refused to complete or attempt activity 9 The patient did not perform the activity before the current illness or injury 88 Not attempted due to Medical conditions or safety concerns Functional Abilities and Goals: Independent: Patient completed the activities by him/herself, with or without an assistive device, with no assistance from a helper. Needed Some Help: Patient needed partial assistance from another person to complete activities. Dependent: A helper completed the activities for the patient. Unknown: Not Applicable: ADL PLOF Comments Pt. reports that she is able to perform ADL skills at home, including toileting, bathing, dressing. Self Care: Unknown Functional Cognition: Unknown DME/Equipment: Grab Bars, Tall Toilet, Tub/Shower DME/Equipment Comments Pt. has a cane and uses this at home. OT Current Status Subjective No pain reported. Appearance Pt. up in chair. Agrees to work with OT. Mental Status/Objective Patient Orientation: Person, Place Attachments: Shell Catheter, IV Current Hand Dominance: Right Upper Extremity ROM WFL- Pt. reports that her CVA several years ago affected her right side, but adds that it only affected her LE. ADL-Treatment Therapy Code Descriptions/Definitions Functional [place] Measure: 0=Not Assessed/NA 4=Minimal Assistance 1=Total Assistance 5=Supervision or Setup 2=Maximal Assistance 6=Modified [place] 3=Moderate Assistance 7=Complete [place] Therapy Quality Codes: 6 Independent with activity with or without an assistive device 5 Patient requires set up or clean up by helper. Patient completes activity by themselves 4 Supervision or touching assist (CGA). Walker provide cues , steadying assist 3 The helper provides less than half the effort to complete the activity 2 The helper provides more than half the effort to complete the activity 1 Dependent. The helper does all the effort to complete an activity 7 Patient refused to complete or attempt activity 9 The patient did not perform the activity before the current illness or injury 88 Not attempted due to Medical conditions or safety concerns Grooming (FIM): 5 (Set up to comb hair.) Bathing (FIM): 3 (Pt. reports that she needs assistance in shower to wash rear ravi area and right LE. States that she can do this in her shower at home.) Lower Body Dressing (FIM): 3 (Pt. is able to doff slipper socks, but requires assistance to don right slipper sock. OT dons fresh hospital gown.) Transfers (B, C, W/C) (FIM): 4 (CGA.) Shower Transfer (FIM): 4 Education OT Patient Education: Correct positioning, Modified ADL techniques, Progress toward Goal/Update tx plan, Purpose of tx/functional activities, Reviewed precautions, Rehab process, Transfer techniques Teaching Recipient: Patient Teaching Methods: Demonstration, Discussion Response to Teaching: Verbalize Understanding, Return Demonstration OT Short Term Goals Short Term Goals Transfers (B,C,W/C) (FIM): 6 1=Demonstrate adherence to instructed precautions during ADL tasks. 2=Patient will verbalize/demonstrate understanding of assistive devices/modifications for ADL. 3=Patient will improve strength/tolerance for activity to enable patient to perform ADL's. OT Long-Term Goals Clothing Pattern Preparer Goals Time Frame: Sep 13, 2018 Bathing(FIM): 5 Upper Body Dressing(FIM): 5 Lower Body Dressing(FIM): 5 Toileting(FIM): 6 Transfers (B,C,W/C) (FIM): 6 Toilet/Commode Transfer(FIM): 6 Shower Transfer(FIM): 5 Additional Goals: 1-Demonstrate ADL Tasks, 2-Verbalize Understanding, 3- ImproveStrength/Corine 1=Demonstrate adherence to instructed precautions during ADL tasks. 2=Patient will verbalize/demonstrate understanding of assistive devices/modifications for ADL. 3=Patient will improve strength/tolerance for activity to enable patient to perform ADL's. OT Education/Plan Problem List/Assessment Assessment: Decreased Activ Tolerance, Impaired I ADL's, Impaired Self-Care Skills Discharge Recommendations Plan/Recommendations: Continue POC Therapy D/C Recommendations: Home w/ Family Support, Occupational Therapy Home Care Equpiment Recommendations-D/C: Bath Chair Treatment Plan/Plan of Care Treatment,Training & Education: Yes Patient would benefit from OT for education, treatment and training to promote independence in ADL's, mobility, safety and/or upper extremity function for ADL's. Plan of Care: ADL Retraining, Functional Mobility, UE Funct Exercise/Act Treatment Duration: Sep 13, 2018 Frequency: 5 times per week Estimated Hrs Per Day: .5 hour per day Agreement: Yes Rehab Potential: Fair Time/GCodes Start Time: 13:55 Stop Time: 14:20 Total Time Billed (hr/min): 25 Billed Treatment Time 1, EVM x 10minutes, ADL x 15minutes MARISOL MARTE OT Sep 06, 2018 15:50
[2018-09-06] MEDS ORDERED: NON-FORMULARY MEDICATION 1 EA EA (Insulin Aspart (Novolog Flexpen) 15 UNITS) SC SCH (18:00)
--- NOTE | 2018-09-06 18:55 | Consultation-Cardiology ---
HPI-Cardiology Cardiology Consultation: Date of Consultation 09/06/18 Time Seen by a Provider: 18:40 Date of Admission Attending Physician Silvia Gutierrez MD Admitting Physician Anastasia King DO Consulting Physician TRAY VARMA MD, MA, FACP, FACC, FSCAI, CCDS HPI: Chief Complaint: Reason for consultation: Syncope, Hypotension HPI Ms. Rodríguez is a 67 year old female brought into the ED d/t syncopal episode at home. She reports she has been having nausea and diarrhea for several days with poor appetite and intake. She was getting up from using the bathroom at home, became dizzy and passed out. Her spouse was with her and was able to catch her. She She denies any dyspnea. She does report frequent non-productive cough for several weeks for which she was on a Z-pack. No c/o LE swelling. No c/o fever or chills. No c/o chest pain. Review of Systems-Cardiology Review of Systems Constitutional: No chills, No fever; malaise Eyes: No vision change Ears/Nose/Throat: No epistaxis, No recent hearing loss Respiratory: As described under HPI Cardiovascular: As described under HPI Gastrointestinal: As described under HPI Genitourinary: No dysuria, No hematuria Musculoskeletal: no symptoms reported Skin: No rash on exposed areas, No ulcerations on exposed areas Psychiatric/Neurological: As described under HPI Hematologic: No bleeding abnormalities WON-[place] Hx Patient Social History Alcohol Use: Denies Use Recreational Drug Use: No Smoking Status: Never a Smoker 2nd Hand Smoke Exposure: No Recent Foreign Travel: No Recent Infectious Disease Expo: No Immunizations Up To Date Tetanus Booster (TDap): Unknown Date of Pneumonia Vaccine: Sep 05, 2016 Past Medical History PMH As described under Assessment. Family Medical History Family Medical History: She reports her father and mother both had HTN. No report of premature CAD or SCD. Family History: Family history: Diabetes mellitus 19 MOTHER Family history: Hypertension 19 FATHER 19 MOTHER Psychotic disorder G8 BROTHER (MENTAL HEALTH PROBLEMS) Allergies and Home Medications Allergies Coded Allergies: Bleach (Sodium Hypochlorite) (Verified Allergy, Unknown, 09/25/16) corn (Unverified Allergy, Unknown, 02/07/10) perfume (Verified Allergy, Unknown, 09/25/16) Home Medications Acetaminophen 500 Mg Tablet, 1,000 MG PO Q6H PRN for PAIN-MILD, (Reported) TAKES 2 (500 MG) TABLETS Aspirin 81 Mg Tablet.dr, 81 MG PO BID, (Reported) Atorvastatin Calcium 40 Mg Tablet, 40 MG PO HS, (Reported) Carvedilol 12.5 Mg Tablet, 12.5 MG PO BID, (Reported) Clopidogrel Bisulfate 75 Mg Tablet, 75 MG PO DAILY, (Reported) Digoxin 125 Mcg Tablet, 125 MCG PO DAILY, (Reported) Enalapril Maleate 20 Mg Tablet, 20 MG PO DAILY, (Reported) Insulin Aspart 300 Units/3 Ml Solution, 15 UNITS SC 1200,1800, (Reported) TAKES WITH LUNCH AND SUPPER Insulin Detemir 100 Unit/1 Ml Insuln.pen, 20 UNIT SQ BID, (Reported) Lurasidone HCl 80 Mg Tablet, 80 MG PO HS, (Reported) Metformin HCl 500 Mg Tab.er.24h, 500 MG PO BID, (Reported) Multivitamin 1 Each Tablet, 1 TAB PO DAILY, (Reported) [place] 3 Polyunsat Fatty Acids 1,000 Mg Cap, 1,000 MG PO BID, (Reported) Patient Home Medication List Home Medication List Reviewed: Yes Physical Exam-Cardiology Physical Exam Vital Signs/I&O 09/06/18 09/06/18 09/06/18 09/06/18 07:00 07:00 08:00 08:00 Temp 97.2 Pulse 69 68 Resp 23 B/P (MAP) 143/70 (94) Pulse Ox 100 O2 Delivery Room Air Room Air 09/06/18 09/06/18 09/06/18 09/06/18 08:00 09:00 10:00 11:00 Pulse 70 70 70 70 Resp 15 16 20 19 B/P (MAP) 142/75 (97) 139/71 (93) 128/65 (86) 142/72 (95) Pulse Ox 100 99 95 100 O2 Delivery Room Air Room Air Room Air Room Air 09/06/18 09/06/18 12:00 15:49 Temp 97.0 Pulse 72 73 Resp 22 20 B/P (MAP) 132/72 (92) 145/72 (96) Pulse Ox 100 O2 Delivery Room Air Room Air 09/05/18 23:59 Intake Total 3270 ml Output Total 200 ml Balance 3070 ml Capillary Refill : Less Than 3 Seconds Constitutional: AAO x 3, well-developed, well-nourished HEENT: PERRL, hearing is well preserved, oral hygience is good Neck: No carotid bruit; carotid pulses are 2 + bilaterally Respiratory: No accessory muscle use, No respiratory distress; chest expansion is symmetric, chest is bilaterally symmetric, lungs clear to auscultation Cardiovascular: regular rate-rhythm; No JVD; S1 and S2 Gastrointestinal: No tender; soft, round Rectal: deferred Extremities: swelling (mild bilat LE swelling) Neurologic/Psychiatric: grossly intact, power is 5/5 both on sides Skin: No rash on exposed areas, No ulcerations on exposed areas Data Review Labs Laboratory Tests 09/05/18 20:36: Glucometer 291H 09/05/18 21:30: Sodium Level 133L, Potassium Level 4.9, Chloride Level 106, Carbon Dioxide Level 17L, Anion Gap 10, Blood Urea Nitrogen 34H, Creatinine 1.90H, Estimat Glomerular Filtration Rate 26, BUN/Creatinine Ratio 18, Glucose Level 250H, Lactic Acid Level 2.00, Calcium Level 7.5L, Phosphorus Level 3.9, Magnesium Level 1.3L 09/06/18 03:04: Sodium Level 135, Potassium Level 4.6, Chloride Level 108H, Carbon Dioxide Level 18L, Anion Gap 9, Blood Urea Nitrogen 33H, Creatinine 1.62H, Estimat Glomerular Filtration Rate 32, BUN/Creatinine Ratio 20, Glucose Level 99, Calcium Level 7.7L, Phosphorus Level 3.2, Magnesium Level 1.8, White Blood Count 7.2, Red Blood Count 3.64L, Hemoglobin 10.7#L, Hematocrit 32L, Mean Corpuscular Volume 89, Mean Corpuscular Hemoglobin 29, Mean Corpuscular Hemoglobin Concent 33, Red Cell Distribution Width 13.0, Platelet Count 126L, Mean Platelet Volume 10.9H, Neutrophils (%) (Auto) 66, Lymphocytes (%) (Auto) 23, Monocytes (%) (Auto) 9, Eosinophils (%) (Auto) 2, Basophils (%) (Auto) 1, Neutrophils # (Auto) 4.7, Lymphocytes # (Auto) 1.6, Monocytes # (Auto) 0.6, Eosinophils # (Auto) 0.1, Basophils # (Auto) 0.0 09/06/18 07:57: Glucometer 85 09/06/18 12:06: Glucometer 162H 09/06/18 16:28: Glucometer 154H Microbiology 09/05/18 Blood Culture - Preliminary, Resulted No growth 09/05/18 C. difficile GDH Antigen & Toxins - Final, Complete 09/05/18 MRSA Screen - Final, Complete MRSA not isolated 09/05/18 Urine Culture - Preliminary, Resulted Enterococcus faecalis Laboratory Tests 09/05/18 13:17 09/05/18 21:30 09/06/18 03:04 A/P-Cardiology Assessment/Admission Diagnosis Syncopal episode of undetermined etiology - likely d/t orthostatic hypotension d/t volume depletion Nausea/diarrhea x several days of undetermined etiology Electrolyte abnormalities likely d/t diarrhea Acute renal insufficiency d/t dehydration CAD with a h/o CABG in 2004. Cardiac cath of 02-24-17: Severe [place] coronary artery disease consisting of 70% ostial stenosis of the left main coronary artery, 99% to 100% stenosis of the mid left anterior descending artery, occlusion of the proximal left circumflex artery and severe mid vessel stenosis of the right coronary artery. The severe mid vessel stenosis of the right coronary artery was treated with Alpine Xience 3.0 x 30 mm stent, which reduced the stenosis to 0% residual. The right coronary artery also has 50% ostial stenosis. Patent aortocoronary graft to an obtuse marginal artery, but the obtuse marginal artery, distal to the stent, has an 80% stenosis and is a relatively small caliber vessel. Patent left internal mammary artery graft to the mid left anterior descending artery, but the left anterior descending artery is of a small caliber and is occluded in its distal portion. Elevated left ventricular end-diastolic pressure. Cardiac cath of 03/24/17: successful gerard nting (2.25x12 Alp Xience) of an OM distal to SVG insertion Abnormal stress test. MPI of 02/03/17: small to mod anteroseptal ischemia, no RWMA, LVEF 62% Epidoes of syncope in August 2013 that was due to postural hypotension due to dehydration DM II H/o CKD, stage 2-3 Hypertension H/o ischemic cardiomyopathy but most recent echo of June 2017 is reported to have shown LVEF 55-60%; trivial AoR. Mild-mod TR. PASP 35-40mmHg Pacemaker/defib implantation in Apr 2010, functioning normally on interrogation carried out on 06/02/18 Abnormal ECG. ECG on 08/20/16 shows paced atrial rhythm, [place] vent rhythm with diffuse repol abnormality (unchanged from previous ECG) Chronically abnormal ECG Carotid arterial disease with h/o R CEA by Dr Rosales in the , according to the patient. Carotid u/s of May 2018: mild bilat carotid plaque Intermittent non-compliance with medical instructions HLP - followed by her PCP Hyperthyroidism per lab of June 2014 - followed by her PCP H/o emilie in the . She has had some speech impairment since then. Has recovered from R-sided weakness Bilateral leg discomfort - segmental pressures of November 2016 is non- diagnostic d/t noncompressibility of the leg vessels. Waveforms however, appear to be good H/o schizophrenia Discussion and Recomendations Syncopal episode likely d/t volume depletion d/t diarrhea and poor oral intake - replace volume Reduce antihypertensives Replace electrolytes Management of diarrhea is with the Medical Services Further recs will be based on her hospital course We would like to thank Medical Services for this consult Clinical Quality Measures DVT/VTE Risk/Contraindication: Risk Factor Score Per Nursin RFS Level Per Nursing on Admit: 4+=Very High TRAY VARMA MD FACP FAC CCDS Sep 06, 2018 18:55
[2018-09-06] MEDS ORDERED: NON-FORMULARY MEDICATION 1 EA EA (Insulin Detemir (Levemir Flextouch) 20 UNIT) SQ SCH (21:00)
[2018-09-06] MEDS ORDERED: ASPIRIN E.C. 81 MG (ECOTRIN) TAB PO SCH (21:00)
[2018-09-06] MEDS ORDERED: NON-FORMULARY MEDICATION 1 EA EA (Lurasidone HCl (Latuda) 80 MG) PO SCH (21:00)
[2018-09-07 00:15] VITALS: BP 138/63
[2018-09-07] MEDS: POTASSIUM CHLORIDE INJ 10 MEQ in NS IV 1000 ML 1,000 ML IV SCH (01:10)
[2018-09-07 03:43] VITALS: BP 145/68
[2018-09-07] MEDS: inSUlin ASPART (NovoLOG) 1 UNIT/0.01 ML (CHARGE PER UNIT) SC SCH ×3 (06:07→12:02)
[2018-09-07 06:15] LABS: BASOPHILS % (AUTO) 1 % (0-10); EOSINOPHILS # (AUTO) 0.1 10^3/uL (0.0-0.3); EOSINOPHILS % (AUTO) 2 % (0-10); HEMATOCRIT 34 % (35-52); HEMOGLOBIN 11.2 G/DL (11.5-16.0); LYMPHOCYTES # (AUTO) 1.1 X 10^3 (1.0-4.0); LYMPHOCYTES % (AUTO) 19 % (12-44); MEAN CORPUSCULAR HEMOGLOBIN 29 PG (25-34); MEAN CORPUSCULAR HGB CONC 33 G/DL (32-36); MEAN CORPUSCULAR VOLUME 88 FL (80-99); MEAN PLATELET VOLUME 10.5 FL (7.4-10.4); MONOCYTES # (AUTO) 0.4 X 10^3 (0.0-1.0); MONOCYTES % (AUTO) 6 % (0-12); NEUTROPHILS # (AUTO) 4.3 X 10^3 (1.8-7.8); NEUTROPHILS % (AUTO) 73 % (42-75); PLATELET COUNT 165 10^3/uL (130-400); RED CELL DISTRIBUTION WIDTH 13.3 % (10.0-14.5); WHITE BLOOD COUNT 5.9 10^3/uL (4.3-11.0)
[2018-09-07 06:53] LABS: ALBUMIN 3.2 GM/DL (3.2-4.5); BILIRUBIN,TOTAL 0.4 MG/DL (0.1-1.0); CALCIUM 7.9 MG/DL (8.5-10.1); CREATININE SERUM 0.93 MG/DL (0.60-1.30); POTASSIUM 5.2 MMOL/L (3.6-5.0); TOTAL PROTEIN 5.7 GM/DL (6.4-8.2)
[2018-09-07 08:00] VITALS: BP 168/81
[2018-09-07] MEDS ORDERED: DIGOXIN 0.125 MG (LANOXIN) TAB PO SCH (09:00)
[2018-09-07] MEDS ORDERED: CLOPIDOGREL 75 MG (PLAVIX) TABLET PO SCH (09:00)
[2018-09-07] MEDS ORDERED: ENALAPRIL 5 MG (VASOTEC) TAB PO NR (09:15)
[2018-09-07] MEDS ORDERED: CARVEDILOL 6.25 MG (COREG) TAB PO NR (09:15)
[2018-09-07] MEDS: DIGOXIN 0.125 MG (LANOXIN) TAB PO SCH (09:17)
[2018-09-07] MEDS: CLOPIDOGREL 75 MG (PLAVIX) TABLET PO SCH (09:18)
[2018-09-07] MEDS: ASPIRIN 81 MG CHEW (CHILDREN'S ASA) PO SCH (09:18)
--- NOTE | 2018-09-07 10:33 | Progress Note-Cardiology ---
Cardiology SOAP Progress Note Subjective: Sitting up in bed. States she feels better today. No c/o CP, palpitations, syncope or near syncope. No further episodes of diarrhea. Wants to know when she can go home. Objective: I&O/Vital Signs 09/07/18 09/07/18 09/07/18 00:15 03:43 08:00 Temp 98.0 97.3 97.4 Pulse 72 70 69 Resp 18 18 18 B/P (MAP) 138/63 (88) 145/68 (93) 168/81 (110) Pulse Ox 96 98 99 O2 Delivery Room Air Room Air Room Air 09/07/18 00:00 Intake Total 1890 ml Output Total 2750 ml Balance -860 ml Weight (Pounds): 191 Weight (Ounces): 0.0 Weight (Calculated Kilograms): 86.418595 Constitutional: AAO x 3, well-developed, well-nourished Respiratory: No accessory muscle use, No respiratory distress; chest expansion is symmetric, chest is bilaterally symmetric, lungs clear to auscultation Cardiovascular: regular rate-rhythm; No JVD; S1 and S2 Gastrointestional: No tender; soft, round Extremities: swelling (mild bilat LE swelling) Neurologic/Psychiatric: grossly intact, power is 5/5 both on sides Skin: No rash on exposed areas, No ulcerations on exposed areas Results/Procedures: Labs Laboratory Tests 09/06/18 12:06: Glucometer 162H 09/06/18 16:28: Glucometer 154H 09/06/18 21:07: Glucometer 115H 09/07/18 05:30: White Blood Count 5.9, Red Blood Count 3.82L, Hemoglobin 11.2L, Hematocrit 34L, Mean Corpuscular Volume 88, Mean Corpuscular Hemoglobin 29, Mean Corpuscular Hemoglobin Concent 33, Red Cell Distribution Width 13.3, Platelet Count 165, Mean Platelet Volume 10.5H, Neutrophils (%) (Auto) 73, Lymphocytes (%) (Auto) 19, Monocytes (%) (Auto) 6, Eosinophils (%) (Auto) 2, Basophils (%) (Auto) 1, Neutrophils # (Auto) 4.3, Lymphocytes # (Auto) 1.1, Monocytes # (Auto) 0.4, Eosinophils # (Auto) 0.1, Basophils # (Auto) 0.0, Sodium Level 137, Potassium Level 5.2H, Chloride Level 113H, Carbon Dioxide Level 19L, Anion Gap 5, Blood Urea Nitrogen 19H, Creatinine 0.93, Estimat Glomerular Filtration Rate 60, BUN/Creatinine Ratio 20, Glucose Level 77, Calcium Level 7.9L, Corrected Calcium 8.5, Total Bilirubin 0.4, Aspartate Amino Transf (AST/SGOT) 14, Alanine Aminotransferase (ALT/SGPT) 13, Alkaline Phosphatase 84, Total Protein 5.7L, Albumin 3.2 09/07/18 05:57: Glucometer 75 Microbiology 09/05/18 Blood Culture - Preliminary, Resulted No growth 09/05/18 C. difficile GDH Antigen & Toxins - Final, Complete 09/05/18 MRSA Screen - Final, Complete MRSA not isolated 09/05/18 Urine Culture - Preliminary, Resulted Enterococcus faecalis Laboratory Tests 09/05/18 13:17 09/05/18 21:30 09/06/18 03:04 09/07/18 05:30 A/P: Assessment: Syncopal episode of undetermined etiology - likely d/t orthostatic hypotension d/t volume depletion - no further episodes Nausea/diarrhea x several days of undetermined etiology - resolved Electrolyte abnormalities likely d/t diarrhea - resolved Acute renal insufficiency d/t dehydration - resolved CAD with a h/o CABG in 2004. Cardiac cath of 02-24-17: Severe ruby coronary artery disease consisting of 70% ostial stenosis of the left main coronary artery, 99% to 100% stenosis of the mid left anterior descending artery, occlusion of the proximal left circumflex artery and severe mid vessel stenosis of the right coronary artery. The severe mid vessel stenosis of the right coronary artery was treated with Alpine Xience 3.0 x 30 mm stent, which reduced the stenosis to 0% residual. The right coronary artery also has 50% ostial stenosis. Patent aortocoronary graft to an obtuse marginal artery, but the obtuse marginal artery, distal to the stent, has an 80% stenosis and is a relatively small caliber vessel. Patent left internal mammary artery graft to the mid left anterior descending artery, but the left anterior descending artery is of a small caliber and is occluded in its distal portion. Elevated left ventricular end-diastolic pressure. Cardiac cath of 03/24/17: successful stenting (2.25x12 Alp Xience) of an OM distal to SVG insertion Abnormal stress test. MPI of 02/03/17: small to mod anteroseptal ischemia, no RWMA, LVEF 62% Epidoes of syncope in August 2013 that was due to postural hypotension due to dehydration DM II H/o CKD, stage 2-3 Hypertension H/o ischemic cardiomyopathy but most recent echo of June 2017 is reported to have shown LVEF 55-60%; trivial AoR. Mild-mod TR. PASP 35-40mmHg Pacemaker/defib implantation in Apr 2010, functioning normally on interrogation carried out on 06/02/18 Abnormal ECG. ECG on 08/20/16 shows paced atrial rhythm, ruby vent rhythm with diffuse repol abnormality (unchanged from previous ECG) Chronically abnormal ECG Carotid arterial disease with h/o R CEA by Dr Rosales in the , according to the patient. Carotid u/s of May 2018: mild bilat carotid plaque Intermittent non-compliance with medical instructions HLP - followed by her PCP Hyperthyroidism per lab of June 2014 - followed by her PCP H/o emilie in the . She has had some speech impairment since then. Has recovered from R-sided weakness Bilateral leg discomfort - segmental pressures of November 2016 is non- diagnostic d/t noncompressibility of the leg vessels. Waveforms however, appear to be good H/o schizophrenia Plan: Syncopal episode likely d/t volume depletion d/t diarrhea and poor oral intake - resolved Hyperkalemia likely d/t IVF with potassium replacement - stop Restart antihypertensives at reduced dose Management of diarrhea is with the Medical Services Ambulate in halls today BARRY REYES Sep 07, 2018 10:33
[2018-09-07] MEDS ORDERED: ENAL5TAB PO (10:55)
[2018-09-07] MEDS ORDERED: ONDA8TAB13 PO (10:55)
[2018-09-07] MEDS ORDERED: CARV6.252 PO (10:55)
--- NOTE | 2018-09-07 10:57 | Physical Therapy Daily Note ---
PT Daily Note-Current Subjective Patient is alert and agrees to PT. No c/o Mental Status Patient Orientation: Normal For Age Attachments: Shell Catheter Transfers Therapy Code Descriptions/Definitions Functional [place] Measure: 0=Not Assessed/NA 4=Minimal Assistance 1=Total Assistance 5=Supervision or Setup 2=Maximal Assistance 6=Modified [place] 3=Moderate Assistance 7=Complete [place] Therapy Quality Codes: 6 Independent with activity with or without an assistive device 5 Patient requires set up or clean up by helper. Patient completes activity by themselves 4 Supervision or touching assist (CGA). [place] provide cues , steadying marquis t 3 The helper provides less than half the effort to complete the activity 2 The helper provides more than half the effort to complete the activity 1 Dependent. The helper does all the effort to complete an activity 7 Patient refused to complete or attempt activity 9 The patient did not perform the activity before the current illness or injury 88 Not attempted due to Medical conditions or safety concerns Transfers (B, C, W/C) (FIM): 6 Scootin Supine to/from Sit: 6 Sit to/from Stand: 6 Bed to/from Chair: 6 Gait Training Gait (FIM): 6 Distance (FIM): 3=150 ft Distance: 300' x 2 Gait Level of Assist: 6 Gait Assistive Device: FWW steady, safe and functional/no deviation Exercises Seated Therapy Exercises: Ankle pumps, Long arc quads Seated Reps: 15 Assessment Patient tolerated treatment well and is up in recliner with needs met. PT to continue with POC. Per patient, she desires to return to home this week. PT Short Term Goals Short Term Goals Time Frame: Sep 08, 2018 Transfers (B,C,W/C) (FIM): 6 Gait (FIM): 6 Distance (FIM): 3=150 ft Gait Distance Comment: 250' Gait Level of Assist: 6 Gait Assistive Device: FWW PT Plan Treatment/Plan Treatment Plan: Continue Plan of Care Treatment Plan: Education, Functional Activity [place], Functional Strength, Gait, Safety, Therapeutic Exercise Treatment Duration: Sep 08, 2018 Frequency: 2 times per week Estimated Hrs Per Day: .25 hour per day Patient and/or Family Agrees t: Yes Time/GCodes Time In: 930 Time Out: 944 Total Billed Treatment Time: 14 Total Billed Treatment 1 visit FA 14 min DANNY PAYNE PT Sep 07, 2018 10:57
--- NOTE | 2018-09-07 10:59 | Discharge Summary-Hospitalist ---
Diagnosis/Chief Complaint Date of Admission Sep 05, 2018 at 15:35 Date of Discharge Discharge Date: Sep 07, 2018 Admission Diagnosis Assessment: Syncope Profound volume depletion Diarrhea Dehydration CAD Pacemaker Emotional problems Plan: IVF Tx to 4th Home meds Hold BP meds Consult Dr Jo Discharge Diagnosis (1) Syncope Status: Acute (2) Hypotension Status: Acute (3) Diarrhea Status: Acute (4) Fall Status: Acute (5) Gait instability (6) Leukocytosis Status: Acute (7) Renal insufficiency Status: Acute (8) HLD (hyperlipidemia) Status: Chronic (9) CAD (coronary artery disease) Status: Chronic Discharge Summary Discharge Physical Exam Allergies: Coded Allergies: Bleach (Sodium Hypochlorite) (Verified Allergy, Unknown, 09/25/16) corn (Unverified Allergy, Unknown, 02/07/10) perfume (Verified Allergy, Unknown, 09/25/16) Vitals & I&Os Vital Signs Date Time Temp Pulse Resp B/P (MAP) Pulse Ox O2 Delivery O2 Flow Rate FiO2 09/07/18 12:10 09/07/18 08:20 Room Air 09/07/18 08:00 97.4 69 18 99 09/06/18 00:00 General Appearance: No Apparent Distress, WD/WN, Chronically ill Respiratory: Chest Non Tender, Lungs Clear, Normal Breath Sounds, No Accessory Muscle Use, No Respiratory Distress Cardiovascular: Regular Rate, Rhythm, No Edema, No Gallop, No JVD, No Murmur, Normal Peripheral Pulses Neurologic/Psychiatric: Alert, Oriented x3, No Motor/Sensory Deficits, Normal Mood/Affect Hospital Course Was the Problem List Reviewed?: Yes Hospital Course; Pt had an uneventful hospital course after she was admitted for hypertension due to severe volume depletion due to diarrhea and overall she recovered nicely. PT saw her pt was in no need of any type of services she was able to ambulate well. She did require Zofran at time of discharge but she was able to eat and drink and no diarrhea persistent. Labs remain stable cardiology decreased the Coreg from 12.5 BID to 6.25 BID and dropped her roma inhibitor down to an Enalapril 5 mg daily she will be seen in close f/u we will discontinue the Shell catheter and will monitor pt closely and provide supportive care until discharge. Labs (last 24 hrs) Laboratory Tests 09/06/18 21:07: Glucometer 115H 09/07/18 05:30: White Blood Count 5.9, Red Blood Count 3.82L, Hemoglobin 11.2L, Hematocrit 34L, Mean Corpuscular Volume 88, Mean Corpuscular Hemoglobin 29, Mean Corpuscular Hemoglobin Concent 33, Red Cell Distribution Width 13.3, Platelet Count 165, Mean Platelet Volume 10.5H, Neutrophils (%) (Auto) 73, Lymphocytes (%) (Auto) 19, Monocytes (%) (Auto) 6, Eosinophils (%) (Auto) 2, Basophils (%) (Auto) 1, Neutrophils # (Auto) 4.3, Lymphocytes # (Auto) 1.1, Monocytes # (Auto) 0.4, Eosinophils # (Auto) 0.1, Basophils # (Auto) 0.0, Sodium Level 137, Potassium Level 5.2H, Chloride Level 113H, Carbon Dioxide Level 19L, Anion Gap 5, Blood Urea Nitrogen 19H, Creatinine 0.93, Estimat Glomerular Filtration Rate 60, BUN/Creatinine Ratio 20, Glucose Level 77, Calcium Level 7.9L, Corrected Calcium 8.5, Total Bilirubin 0.4, Aspartate Amino Transf (AST/SGOT) 14, Alanine Aminotransferase (ALT/SGPT) 13, Alkaline Phosphatase 84, Total Protein 5.7L, Albumin 3.2 09/07/18 05:57: Glucometer 75 09/07/18 11:32: Glucometer 82 Microbiology 09/05/18 Blood Culture - Preliminary, Resulted No growth 09/05/18 C. difficile GDH Antigen & Toxins - Final, Complete 09/05/18 MRSA Screen - Final, Complete MRSA not isolated 09/05/18 Urine Culture - Preliminary, Resulted Enterococcus faecalis Patient resulted labs reviewed. Pending Labs Laboratory Tests 09/07/18 11:32: Glucometer 82 Discussion & Recommendations Discharge Planning: <30 minutes discharge planning Discharge Home Medications: Active Scripts Active Ondansetron Odt (Ondansetron) 8 Mg Tab.rapdis 8 Mg PO Q6H Enalapril Maleate 5 Mg Tablet 5 Mg PO DAILY Carvedilol 6.25 Mg Tablet 6.25 Mg PO BID Reported Metformin HCl ER (Metformin HCl) 500 Mg Tab.er.24h 500 Mg PO BID Fish Oil 1,000 mg Capsule (Chama 3 Polyunsat Fatty Acids) 1,000 Mg Cap 1,000 Mg PO BID Multivitamins (Multivitamin) 1 Each Tablet 1 Tab PO DAILY Levemir Flextouch (Insulin Detemir) 100 Unit/1 Ml Insuln.pen 20 Unit SQ BID Aspirin EC (Aspirin) 81 Mg Tablet.dr 81 Mg PO BID Novolog Flexpen (Insulin Aspart) 300 Units/3 Ml Solution 15 Units SC 1200,1800 TAKES WITH LUNCH AND SUPPER Atorvastatin Calcium 40 Mg Tablet 40 Mg PO HS Plavix (Clopidogrel Bisulfate) 75 Mg Tablet 75 Mg PO DAILY Latuda (Lurasidone HCl) 80 Mg Tablet 80 Mg PO HS Acetaminophen 500 Mg Tablet 1,000 Mg PO Q6H PRN TAKES 2 (500 MG) TABLETS Digoxin 125 Mcg Tablet 125 Mcg PO DAILY Instructions to patient/family Please see electronic discharge instructions given to patient. Clinical Quality Measures DVT/VTE Risk/Contraindication: Risk Factor Score Per Nursin RFS Level Per Nursing on Admit: 4+=Very High Problem Qualifiers (1) Syncope: Syncope type: unspecified Qualified Codes: R55 - Syncope and collapse (2) Hypotension: Hypotension type: unspecified hypotension type Qualified Codes: I95.9 - Hypotension, unspecified (3) Diarrhea: Diarrhea type: unspecified type Qualified Codes: R19.7 - Diarrhea, unspecified (4) Fall: Encounter type: initial encounter Qualified Codes: W19.XXXA - Unspecified fall, initial encounter (5) Leukocytosis: Leukocytosis type: leukemoid reaction Qualified Codes: D72.823 - Leukemoid reaction (6) HLD (hyperlipidemia): Hyperlipidemia type: mixed hyperlipidemia Qualified Codes: E78.2 - Mixed hyperlipidemia (7) CAD (coronary artery disease): Coronary Disease-Associated Artery/Lesion type: [place] artery [place] vs. transplanted heart: [place] heart Associated angina: without angina Qualified Codes: I25.10 - Atherosclerotic heart disease of [place] coronary artery without angina pectoris COLLINS APODACA DO Sep 07, 2018 10:59
[2018-09-07] MEDS ORDERED: CARVEDILOL 6.25 MG (COREG) TAB PO SCH (21:00)
[2018-09-08] MEDS ORDERED: ENALAPRIL 5 MG (VASOTEC) TAB PO SCH (09:00)
--- NOTE | 2018-09-10 11:55 | Physician Query Clarification ---
PQ-Further Specificity Admission/Discharge Admission Date: Sep 05, 2018 at 15:35 Discharge Date: Sep 07, 2018 at 12:10 The medical record reflects the following clinical scenario: History/Risk Factors: Orthostatic hypotension, dehydration, HTN w/ CKD, ischemic cardiomyopathy Clinical Findings: 09/05 >100,000 enterococcus from urine culture, 2 of 2 bottles staph coag neg Treatment: IV Cefepime Question: Can you further specify Sepsis d/t UTI per the clinical indicators above? Please document a response in the Progress Notes or Discharge Summary. 1. Staph sepsis d/t to enterococcus UTI 2. Sepsis and UTI ruled out 3. Other, with explanation of the clinical findings. 4. Clinically undetermined, no explanation for the clinical findings. PHYSICIAN RESPONSE Can you specify per above: 2 Please remember a lack of response to the above will prompt a phone page by CDI/Coding staff. In responding to this query, please exercise your independent professional judgment. The purpose of this communication is to more accurately reflect the complexity of your patients condition. The fact that a question is asked does not imply that any particular answer is desired or expected. Thank you for your timely response to this clarification. Requestors name: Kym THIS PHYSICIAN QUERY FORM IS A PERMANENT PART OF THE MEDICAL RECORD KYM ARRIAZA Sep 10, 2018 11:55 COLLINS APODACA DO Sep 10, 2018 12:30
== END 2018-09-07 12:10 | disposition home or self-care (01) | DRG 312 ==
LOC: EDUNIT# 12:32 → ER 12:33 → ICU 15:35 → 4TH 09-06 12:07
PROVIDERS: ADMIT Family Medicine; ATTEND Family Medicine
DX: I95.1 Orthostatic hypotension (principal); E86.0 Dehydration; R19.7 Diarrhea, unspecified; N18.2 Chronic kidney disease, stage 2 (mild); I25.5 Ischemic cardiomyopathy; I25.10 Atherosclerotic heart disease of native coronary artery without angina pectoris; M16.11 Unilateral primary osteoarthritis, right hip; E11.9 Type 2 diabetes mellitus without complications; N28.9 Disorder of kidney and ureter, unspecified; R26.81 Unsteadiness on feet; E78.2 Mixed hyperlipidemia; F41.9 Anxiety disorder, unspecified; F32.9 Major depressive disorder, single episode, unspecified; E05.90 Thyrotoxicosis, unspecified without thyrotoxic crisis or storm; I65.23 Occlusion and stenosis of bilateral carotid arteries; F20.9 Schizophrenia, unspecified; H35.30 Unspecified macular degeneration; Z79.02 Long term (current) use of antithrombotics/antiplatelets; Z95.1 Presence of aortocoronary bypass graft; Z86.73 Personal history of transient ischemic attack (TIA), and cerebral infarction without residual deficits; Z95.0 Presence of cardiac pacemaker; Z91.19 Patient's noncompliance with other medical treatment and regimen
CPT/HCPCS: 36415; 70450; 71045; 72125; 73502; 80048; 80053; 81000; 82962; 83605; 83735; 83880; 84100; 84484; 85025; 85610; 85730; 87040; 87077; 87081; 87088; 87186; 87324; 87449; 93005

== ENCOUNTER → 2019-02-22 | Outpatient (CLI) | payer MEDICARE ==
[~2019-02-22] MED LIST changes: -ACET-2469 PO; +ACET-2715 PO; +CARV12.52 PO; +DICY20TA10 PO; +DIGO125T3 PO; +ENLP5T PO; +INSU100I29 SQ; +METF500T19 PO; +MULT1TAB69 PO; +OMG1KC PO; +ONDA8TAB13 PO; +PANT40TA2 PO; +RIVA15TA PO; +ZIPR80CA21 PO; -ZIPR80CA23 PO
[2019-02-22 07:54] LABS: HEMOGLOBIN 13.4 G/DL (11.5-16.0); MEAN PLATELET VOLUME 9.9 FL (7.4-10.4); RED CELL DISTRIBUTION WIDTH 13.4 % (10.0-14.5)
[2019-02-22 08:08] LABS: INR 1.2 (0.8-1.4)
[2019-02-22 08:15] LABS: ALBUMIN 4.1 GM/DL (3.2-4.5); BILIRUBIN,TOTAL 0.7 MG/DL (0.1-1.0); CALCIUM 9.4 MG/DL (8.5-10.1); CREATININE SERUM 1.29 MG/DL (0.60-1.30); POTASSIUM 4.8 MMOL/L (3.6-5.0); TOTAL PROTEIN 7.5 GM/DL (6.4-8.2)
== END ==
LOC: LAB 07:20
PROVIDERS: ATTEND Nurse Practitioner Family
DX: Z01.812 Encounter for preprocedural laboratory examination (principal); I25.10 Atherosclerotic heart disease of native coronary artery without angina pectoris; I25.9 Chronic ischemic heart disease, unspecified; N18.9 Chronic kidney disease, unspecified; E11.9 Type 2 diabetes mellitus without complications; I48.0 Paroxysmal atrial fibrillation
CPT/HCPCS: 36415; 80053; 80061; 80162; 85027; 85610; 85730; 87081

== ENCOUNTER 2019-02-23 12:48 | Emergency (ER) | payer MEDICARE ==
[~2019-02-23] VITALS: Ht 162.5 cm; Wt 77.2 kg
[~2019-02-23 12:48] MED LIST changes: +ACET-2469 PO; -ACET-2715 PO; -DIGO125T3 PO; +ENAL5TAB PO; -ENLP5T PO; -METF500T19 PO; +METF500T8 PO; -PANT40TA2 PO; -ZIPR80CA21 PO; +ZIPR80CA23 PO
[2019-02-23 13:10] LABS: BASOPHILS # (AUTO) 0.1 10^3/uL (0.0-0.1); BASOPHILS % (AUTO) 1 % (0-10); EOSINOPHILS # (AUTO) 0.1 10^3/uL (0.0-0.3); EOSINOPHILS % (AUTO) 1 % (0-10); HEMATOCRIT 39 % (35-52); HEMOGLOBIN 13.2 G/DL (11.5-16.0); LYMPHOCYTES # (AUTO) 1.9 X 10^3 (1.0-4.0); LYMPHOCYTES % (AUTO) 20 % (12-44); MEAN CORPUSCULAR HEMOGLOBIN 29 PG (25-34); MEAN CORPUSCULAR HGB CONC 34 G/DL (32-36); MEAN CORPUSCULAR VOLUME 86 FL (80-99); MONOCYTES # (AUTO) 0.7 X 10^3 (0.0-1.0); MONOCYTES % (AUTO) 7 % (0-12); NEUTROPHILS # (AUTO) 6.8 X 10^3 (1.8-7.8); NEUTROPHILS % (AUTO) 71 % (42-75); PLATELET COUNT 196 10^3/uL (130-400); RED CELL DISTRIBUTION WIDTH 13.4 % (10.0-14.5); WHITE BLOOD COUNT 9.6 10^3/uL (4.3-11.0)
[2019-02-23 13:29] LABS: INR 2.1 (0.8-1.4); PROTHROMBIN TIME PATIENT 24.6 SEC (12.2-14.7)
--- NOTE | 2019-02-23 13:31 | Diagnostic Imaging Report ---
INDICATION: Weakness and chest discomfort as well as shortness of breath. TIME OF EXAM: 01:24 p.m. COMPARISON: Correlation is made with prior chest from 09/06/2018. FINDINGS: Changes of median sternotomy and CABG are noted. Cardiac defibrillator remains in place. The lungs are clear. There is no infiltrate. No effusion or pneumothorax is seen. IMPRESSION: Stable chest. No acute cardiopulmonary process is detected. Dictated by: Dictated on workstation # [id number]
[2019-02-23 13:34] LABS: BILIRUBIN,TOTAL 0.5 MG/DL (0.1-1.0); CALCIUM 8.6 MG/DL (8.5-10.1); CREATININE SERUM 1.19 MG/DL (0.60-1.30); MAGNESIUM 1.4 MG/DL (1.6-2.4); POTASSIUM 4.4 MMOL/L (3.6-5.0); TOTAL PROTEIN 7.1 GM/DL (6.4-8.2)
--- NOTE | 2019-02-23 13:57 | ED Chest Pain ---
General Chief Complaint: Respiratory Problems Stated Complaint: SOA,PAIN IN ARMS Nursing Triage Note: Pt to Ed in wheelchair. Pt c/o SOB, weakness, chest "discomfort" and bilateral arm pain that has persisted for one month. Nursing Sepsis Screen: No Definite Risk Source: patient, old records Exam Limitations: no limitations History of Present Illness Date Seen by Provider: Feb 23, 2019 Time Seen by Provider: 12:58 Initial Comments This 68-year-old woman presents to the emergency room with complaints of pain in her chest, both arms, and her back. She has associated shortness of breath. This is been ongoing for about a month. She was scheduled to have a stress test by Dr. Jo yesterday but this needed to be rescheduled due to diversion in the hospital. She has history of coronary artery disease, a-fib and CABG. She has a pacemaker as well. She describes her pain as a burning in the chest and it is accompanied with epigastric tenderness. Allergies and Home Medications Allergies Coded Allergies: Bleach (Sodium Hypochlorite) (Verified Allergy, Unknown, 09/25/16) corn (Unverified Allergy, Unknown, 02/07/10) perfume (Verified Allergy, Unknown, 09/25/16) Home Medications Acetaminophen 500 Mg Tablet, 1,000 MG PO Q6H PRN for PAIN-MILD, (Reported) TAKES 2 (500 MG) TABLETS Aspirin 81 Mg Tablet., 81 MG PO BID, (Reported) Atorvastatin Calcium 40 Mg Tablet, 40 MG PO HS, (Reported) Carvedilol 12.5 Mg Tablet, 12.5 MG PO BID, (Reported) LAST FILLED 12-24-2018 #60 / 30 DAY SUPPLY Dicyclomine HCl 20 Mg Tablet, 20 MG PO BID PRN for ABDOMINAL CRAMPING, (Reported) Digoxin 125 Mcg Tablet, 125 MCG PO DAILY, (Reported) Enalapril Maleate 20 Mg Tablet, 20 MG PO DAILY, (Reported) Insulin Aspart 300 Units/3 Ml Solution, 20 UNITS SC 1200,1800, (Reported) TAKES WITH LUNCH AND SUPPER Insulin Detemir 100 Unit/1 Ml Insuln.pen, 20 UNIT SQ BID, (Reported) Lurasidone HCl 80 Mg Tablet, 80 MG PO HS, (Reported) Metformin HCl 500 Mg Tablet, 500 MG PO BID, (Reported) Pantoprazole Sodium 40 Mg Tablet., 40 MG PO DAILY Prescribed by: HAYLIE CHAMBERLAIN on 02/23/19 1608 Rivaroxaban 15 Mg Tablet, 15 MG PO DAILY, (Reported) Patient Home Medication List Home Medication List Reviewed: Yes Review of Systems Review of Systems Constitutional: no symptoms reported EENTM: No Symptoms Reported Respiratory: See HPI Cardiovascular: No Symptoms Reported Gastrointestinal: See HPI Genitourinary: No Symptoms Reported Musculoskeletal: see HPI Skin: no symptoms reported Psychiatric/Neurological: No Symptoms Reported Endocrine: No Symptoms Reported Hematologic/Lymphatic: No Symptoms Reported Past Oakfjwn-Fytqca-Lcjazi Hx Past Med/Social Hx: Reviewed and Corrections made Patient Social History Alcohol Use: Denies Use Recreational Drug Use: No Smoking Status: Never a Smoker 2nd Hand Smoke Exposure: No Recent Foreign Travel: No Contact w/Someone Who Travel: No Recent Infectious Disease Expo: No Recent Hopitalizations: No Immunizations Up To Date Tetanus Booster (TDap): Unknown PED Vaccines UTD: No Date of Pneumonia Vaccine: Sep 05, 2016 Seasonal Allergies Seasonal Allergies: No Past Medical History Surgeries: Yes (right carotid endarterectomy, colonoscopy, valve replacement) CABG, Coronary Stent, Gallbladder, Hysterectomy, Pacemaker Respiratory: No Currently Using CPAP: No Currently Using BIPAP: No Cardiac: Yes (has pacemaker/defibrillator, DOUBLE BYPASS) Atrial Fibrillation, Coronary Artery Disease, High Cholesterol, Irregular Heartbeat Neurological: Yes Stroke Reproductive Disorders: No 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 Genitourinary: Yes UTI-Chronic Gastrointestinal: Yes Gall Bladder Disease Musculoskeletal: Yes Arthritis Endocrine: Yes (states used to take insulin but not anymore) Diabetes, Insulin dep HEENT: Yes Cataract, Macular Degeneration Loss of Vision: Denies Hearing Impairment: Denies Cancer: No Psychosocial: Yes Anxiety, Schizophrenia, Depression Integumentary: No Blood Disorders: No Adverse Reaction/Blood Tranf: No Family Medical History Family history: Diabetes mellitus 19 MOTHER Family history: Hypertension 19 FATHER 19 MOTHER Psychotic disorder G8 BROTHER (MENTAL HEALTH PROBLEMS) No Pertinent Family Hx Physical Exam Vital Signs Vital Signs - First Documented 02/23/19 12:59 Temp 36.7 Pulse 87 Resp 14 B/P (MAP) 150/93 (112) Pulse Ox 100 O2 Delivery Room Air Capillary Refill : Less Than 3 Seconds Height, Weight, BMI Height: 5'4.00" Weight: 191lbs. 0.0oz. [id number]; 29.00 BMI Method:Stated General Appearance: No Apparent Distress, WD/WN HEENT: Normal ENT Inspection Neck: Normal Inspection Respiratory: Lungs Clear, Normal Breath Sounds, No Accessory Muscle Use Cardiovascular: No Edema, No Murmur, Normal Peripheral Pulses, Irregularly Irregular Gastrointestinal: Normal Bowel Sounds, Soft, Tenderness (epigastric) Extremity: Normal Inspection, Non Tender, No Pedal Edema Neurologic/Psychiatric: Alert, Oriented x3, No Motor/Sensory Deficits, Normal Mood/Affect, chief wharfinger II-XII Norm as Tested Skin: Normal Color, Warm/Dry Progress/Results/Core Measures Results/Orders Lab Results Laboratory Tests Test 02/23/19 13:00 Range/Units White Blood Count 9.6 4.3-11.0 10^3/uL Red Blood Count 4.50 4.35-5.85 10^6/uL Hemoglobin 13.2 11.5-16.0 G/DL Hematocrit 39 35-52 % Mean Corpuscular Volume 86 80-99 FL Mean Corpuscular Hemoglobin 29 25-34 PG Mean Corpuscular Hemoglobin Concent 34 32-36 G/DL Red Cell Distribution Width 13.4 10.0-14.5 % Platelet Count 196 130-400 10^3/uL Mean Platelet Volume 10.0 7.4-10.4 FL Neutrophils (%) (Auto) 71 42-75 % Lymphocytes (%) (Auto) 20 12-44 % Monocytes (%) (Auto) 7 0-12 % Eosinophils (%) (Auto) 1 0-10 % Basophils (%) (Auto) 1 0-10 % Neutrophils # (Auto) 6.8 1.8-7.8 X 10^3 Lymphocytes # (Auto) 1.9 1.0-4.0 X 10^3 Monocytes # (Auto) 0.7 0.0-1.0 X 10^3 Eosinophils # (Auto) 0.1 0.0-0.3 10^3/uL Basophils # (Auto) 0.1 0.0-0.1 10^3/uL Erythrocyte Sedimentation Rate 24 0-30 MM/HR Prothrombin Time 24.6 H 12.2-14.7 SEC INR Comment 2.1 H 0.8-1.4 Activated Partial Thromboplast Time 41 H 24-35 SEC Sodium Level 135 135-145 MMOL/L Potassium Level 4.4 3.6-5.0 MMOL/L Chloride Level 103 98-107 MMOL/L Carbon Dioxide Level 23 21-32 MMOL/L Anion Gap 9 5-14 MMOL/L Blood Urea Nitrogen 21 H 7-18 MG/DL Creatinine 1.19 0.60-1.30 MG/DL Estimat Glomerular Filtration Rate 45 BUN/Creatinine Ratio 18 Glucose Level 110 H 70-105 MG/DL Calcium Level 8.6 8.5-10.1 MG/DL Corrected Calcium 8.6 8.5-10.1 MG/DL Magnesium Level 1.4 L 1.6-2.4 MG/DL Total Bilirubin 0.5 0.1-1.0 MG/DL Aspartate Amino Transf (AST/SGOT) 21 5-34 U/L Alanine Aminotransferase (ALT/SGPT) 17 0-55 U/L Alkaline Phosphatase 141 H 40-136 U/L Myoglobin 110.0 H 10.0-92.0 NG/ML Troponin I < 0.028 <0.028 NG/ML C-Reactive Protein High Sensitivity 0.94 H 0.00-0.50 MG/DL Total Protein 7.1 6.4-8.2 GM/DL Albumin 4.0 3.2-4.5 GM/DL Lipase 22 8-78 U/L TSH [place] Testing 2.55 0.35-4.94 UIU/ML Digoxin Level 0.73 L 0.80-2.00 NG/ML My Orders Orders - HAYLIE AMBRIZ MD Cbc With Automated Diff (02/23/19 12:58) Magnesium (02/23/19 12:58) Chest 1 View, Ap/Pa Only (02/23/19 12:58) Ekg Tracing (02/23/19 12:58) Comprehensive Metabolic Panel (02/23/19 12:58) Myoglobin Serum (02/23/19 12:58) Protime With Inr (02/23/19 12:58) Partial Thromboplastin Time (02/23/19 12:58) O2 (02/23/19 12:58) Monitor-Rhythm Ecg Trace Only (02/23/19 12:58) Ed Iv/Invasive Line Start (02/23/19 12:58) Troponin I (02/23/19 12:58) Digoxin (02/23/19 13:54) Lipase (02/23/19 13:54) Thyroid Analyzer (02/23/19 13:54) Magnesium 1 Gm/100 Ml Ivpb (Magnesium Macdonald (02/23/19 14:00) Lidocaine 2% Viscous 15 Ml (Xylocaine Vi (02/23/19 14:00) Antacid Suspension (Mylanta Suspension (02/23/19 14:00) Famotidine Injection (Pepcid Injection) (02/23/19 14:30) Hs C Reactive Protein (02/23/19 14:39) Erythrocyte Sedimentation Rate (02/23/19 14:39) Pantoprazole Tablet (Protonix Tablet) (02/23/19 16:15) Medications Given in ED Current Medications Medications Dose Ordered Sig/Roxana Route Start Time Stop Time Status Last Admin Dose Admin Al Hydrox/Mg Hydrox/Simethicone 30 ml ONCE ONCE PO 02/23/19 14:00 02/23/19 14:01 DC 02/23/19 14:01 30 ML Famotidine 20 mg ONCE ONCE IVP 02/23/19 14:30 02/23/19 14:31 DC 02/23/19 14:27 20 MG Lidocaine HCl 15 ml ONCE ONCE PO 02/23/19 14:00 02/23/19 14:01 DC 02/23/19 14:01 15 ML Magnesium Sulfate/ Dextrose 100 ml @ 100 mls/hr ONCE ONCE IV 02/23/19 14:00 02/23/19 14:59 DC 02/23/19 14:16 100 MLS/HR Pantoprazole Sodium 40 mg ONCE ONCE PO 02/23/19 16:15 02/23/19 16:16 DC 02/23/19 16:09 40 MG Vital Signs/I&O 02/23/19 02/23/19 12:59 16:22 Temp 36.7 36.7 Pulse 87 78 Resp 14 14 B/P (MAP) 150/93 (112) 134/91 (112) Pulse Ox 100 100 O2 Delivery Room Air Room Air Blood Pressure Mean: 112 Progress Progress Note : Progress Note Workup was unremarkable. Patient was treated with GI cocktail and Pepcid which completely resolved her symptoms. Case was discussed with Dr. Jo. Since she has her stress test rescheduled for Thursday, is acceptable to discharge her with return precautions. She reported currently taking no antacid medications other than Tums. Protonix was prescribed any dose was given prior to dismissal. Initial ECG Impression Date: Feb 23, 2019 Initial ECG Impression Time: 13:05 Initial ECG Rate: 97 Initial ECG Rhythm: A Fib/Flutter Initial ECG Impression: Atrial Fibrillation Comment Atrial fibrillation with no ST elevation or depression. No significant change from prior. Few ventricular paced complexes. LVH. Diagnostic Imaging Diagonstic Imaging: Xray Plain Films/CT/US/NM/MRI: chest Comments Chest x-ray viewed by me and report reviewed. See report below: NAME: [facility]Y [facility]ARN [facility] REC#: [id number] PT STATUS: REG ER : 1950 PHYSICIAN: HAYLIE AMBRIZ MD ADMIT DATE: 02/23/19/ER Signed Date of Exam:02/23/19 CHEST 1 VIEW, AP/PA ONLY INDICATION: Weakness and chest discomfort as well as shortness of breath. TIME OF EXAM: 01:24 p.m. COMPARISON: Correlation is made with prior chest from 09/06/2018. FINDINGS: Changes of median sternotomy and CABG are noted. Cardiac defibrillator remains in place. The lungs are clear. There is no infiltrate. No effusion or pneumothorax is seen. IMPRESSION: Stable chest. No acute cardiopulmonary process is detected. Dictated by: Dictated on workstation # [id number] Dict: 02/23/19 1329 Trans: 02/23/19 1554 [facility] [id number] Interpreted by: SULY MENDOZA MD Electronically signed by: SULY MENDOAZ MD 02/23/19 1554 Departure Impression Primary Impression: Atypical chest pain Additional Impression: Epigastric pain Disposition: 01 HOME, SELF-CARE Condition: Improved Departure-Patient Inst. Decision time for Depature: 16:05 Referrals: BOONE IRAHETA DO (PCP) Primary Care Physician WOOD CALDERON (Family) Primary Care Physician Patient Instructions: Acid Reflux (Gastroesophageal Reflux Disease) in Adults, Chest Pain Add. Discharge Instructions: Continue with your medications as previously prescribed and follow-up for the heart catheter study on Thursday. Add Protonix to your medication regimen as prescribed. Avoid the following: Eating large meals, eating close to bedtime, caffeine, carbonation, citrus fruits and juices, tomato products, chocolate, mints, fatty or greasy foods, spicy foods, NSAID medications such as ibuprofen or naproxen, or anything else that you know irritates your stomach. Return to the emergency room if you have worsening symptoms. All discharge instructions reviewed with patient and/or family. Voiced understanding. Scripts Pantoprazole Sodium (Protonix) 40 Mg Tablet. 40 MG PO DAILY, #30 TAB Prov: HAYLIE AMBRIZ MD 02/23/19 Copy Copies To 1: TRAY JO MD [facility] CCDS Copies To 2: BOONE IRAHETA JOSHUA T MD Feb 23, 2019 13:57
[2019-02-23] MEDS ORDERED: ANTACID SUSP 30 ML UDC (MYLANTA) PO ONE (14:00)
[2019-02-23] MEDS ORDERED: LIDOCAINE 2% VISCOUS 15 ML UDC PO ONE (14:00)
[2019-02-23] MEDS ORDERED: MAGNESIUM 1 GM/100 ML IVPB 100 ML IV ONE (14:00)
--- NOTE | 2019-02-23 14:18 | NUR ---
Pt reports chest discomfort at a 3/10 after GI cocktail.
[2019-02-23] MEDS ORDERED: FAMOTIDINE 20MG/2ML IV (PEPCID) IVP ONE (14:30)
[2019-02-23 14:49] LABS: TSH (THYROID ANALYZER) 2.55 UIU/ML (0.35-4.94)
[2019-02-23] MEDS ORDERED: PANT40TA2 PO (16:08)
[2019-02-23] MEDS ORDERED: PANTOPRAZOLE 40 MG (PROTONIX) TAB PO ONE (16:15)
[2019-02-23 16:22] VITALS: BP 134/91
== END 2019-02-23 16:20 | disposition home or self-care (01) ==
LOC: EDUNIT# 12:48 → ER 12:50
DX: R07.89 Other chest pain (principal); R10.13 Epigastric pain; I25.10 Atherosclerotic heart disease of native coronary artery without angina pectoris; I48.91 Unspecified atrial fibrillation; E78.00 Pure hypercholesterolemia, unspecified; E11.9 Type 2 diabetes mellitus without complications; F41.9 Anxiety disorder, unspecified; F20.9 Schizophrenia, unspecified; F32.9 Major depressive disorder, single episode, unspecified; Z86.73 Personal history of transient ischemic attack (TIA), and cerebral infarction without residual deficits; Z87.440 Personal history of urinary (tract) infections; Z95.1 Presence of aortocoronary bypass graft; Z79.82 Long term (current) use of aspirin; Z79.4 Long term (current) use of insulin; Z79.01 Long term (current) use of anticoagulants; Z95.5 Presence of coronary angioplasty implant and graft; Z95.0 Presence of cardiac pacemaker; Z82.49 Family history of ischemic heart disease and other diseases of the circulatory system
CPT/HCPCS: 36415; 71045; 80053; 80162; 83690; 83735; 83874; 84443; 84484; 85025; 85610; 85652; 85730; 86141; 93005; 93041; 96365; 96375

== ENCOUNTER 2019-02-25 14:48 | Day surgery (SDC) | payer MEDICARE ==
[2019-02-22 07:41] VITALS: BP 119/68
[2019-02-22 07:54] LABS: HEMOGLOBIN 13.4 G/DL (11.5-16.0); MEAN PLATELET VOLUME 9.9 FL (7.4-10.4); RED CELL DISTRIBUTION WIDTH 13.4 % (10.0-14.5)
[2019-02-22 08:08] LABS: INR 1.2 (0.8-1.4)
[2019-02-22 08:15] LABS: ALBUMIN 4.1 GM/DL (3.2-4.5); BILIRUBIN,TOTAL 0.7 MG/DL (0.1-1.0); CALCIUM 9.4 MG/DL (8.5-10.1); CREATININE SERUM 1.29 MG/DL (0.60-1.30); POTASSIUM 4.8 MMOL/L (3.6-5.0); TOTAL PROTEIN 7.5 GM/DL (6.4-8.2)
--- NOTE | 2019-02-22 08:27 | NUR ---
SPOKE WITH THE PT (SHE HAD MOST HOME MEDS) WELL CALLING [facility] TO COMPLETE THE MED REC. THE PT WAS ABLE TO TELL ME HOW/WHEN SHE TAKES EACH MEDICATION. COREG: LAST FILLED ON 12-24-2018 #60/30DS DIRECTIONS ON BOTTLE " 1 TAB BID" AND THE PT SAYS SHE TAKES IT THIS WAY BUT HER BOTTLE STILL HAD QUITE A FEW TABLETS. WHEN I CALLED [facility] THEY TOLD ME THAT YES HER LAST FILL WAS ON 12-24 BUT SHE ALSO RECEIVED A FILL ON 12-11-2018 FOR #60 AND THEY THOUGHT MAYBE SHE HAD EXTRAS STOCKED UP. METFORMIN: BOTTLE SAYS " 2 TABS BID" HOWEVER THE PT IS JUST TAKING 1 TAB BID AND WASNT AWARE OF THE DIRECTIONS. THE FOLLOWING ARE FILL DATES FROM [facility]: 12-03-2018 METFORMIN #360/180DS 12-24-2018 COREG #60/30DS 01-12-2019 LATUDA (PALS PROGRAM) #90/90DS 01-14-2019 NOVOLOG #5 PENS 01-14-2019 LEVEMIR #5 PENS 01-28-2019 ATORVASTATIN #30/30DS 01-28-2019 DIGOXIN #30/30DS 02-12-2019 XARELTO #30/30DS (SAMPLES FROM [facility]) 02-14-2019 BENTYL #60/30DS 02-14-2019 ENALAPRIL #30/30DS OTC MEDS: TYLENOL ASPIRIN
[~2019-02-25] VITALS: Ht 163 cm; Wt 77.0 kg
[2019-02-25] VITALS (11 sets, daily range): BP systolic 144–168; BP diastolic 85–118
[~2019-02-25 14:48] MED LIST changes: +HEParin 1000 UNIT/ML (10ML VIAL) FOR BOLUS ONE; +LIDOCAINE 1% INJ 20 ML 20 ML VIAL ONE; +NS IV 1000 ML 1,000 ML IV SCH; +NS IV 1000 ML 1,000 ML ONE; +NS IV 1000 ML 2,000 ML ONE; +PANT40TA2 PO
[2019-02-25] MEDS ORDERED: LIDOCAINE 1% INJ 20 ML 20 ML VIAL ONE (15:37)
[2019-02-25] MEDS ORDERED: NS IV 1000 ML 2,000 ML ONE (15:37)
[2019-02-25] MEDS ORDERED: HEParin 1000 UNIT/ML (10ML VIAL) FOR BOLUS ONE (15:37)
[2019-02-25] MEDS ORDERED: NS IV 1000 ML 1,000 ML IV SCH ×2 (15:41→19:24)
[2019-02-25] MEDS ORDERED: NS IV 1000 ML 1,000 ML ONE ×2 (15:45→18:34)
[2019-02-25] MEDS ORDERED: MIDAZOLAM 5 MG/5 ML (VERSED) VIAL ONE (17:42)
[2019-02-25] MEDS ORDERED: fentaNYL INJECTION 100 MCG/2 ML AMP ONE (17:42)
--- NOTE | 2019-02-25 18:41 | Cardiac Procedure Note-CS/ASA ---
Pre-Procedure Note Pre-Op Procedure Note H&P Reviewed The H&P was reviewed, patient examined and no changes noted. Date H&P Reviewed: Feb 25, 2019 Time H&P Reviewed: 18:41 Conscious Sedation Pre-Proced Time 18:41 ASA Score 3 For ASA 3 and 4: Consider anesthesia and medical clearance. Also, for patients with a history of failed moderate sedation consider anesthesia. Airway Lungs Heart ASA score ASA 1: a normal healthy patient ASA 2: a patient with a mild systemic disease (mid diabetes, controlled hypertension, obesity ASA 3: a patient with a severe systemic disease that limits activity (angina, COPD, prior Myocardial infarction) ASA 4: a patient with an incapacitating disease that is a constant threat to life (CHF, renal failure) ASA 5: a moribund patient not expected to survive 24 hrs. (ruptured aneurysm) ASA 6: a declared brain- patient whose organs are being harvested. For emergent operations, add the letter E after the classification Mallampati Classification Grade 2 Sedation Plan Analgesia, Amnesia, Plan communicated to team members, Discussed options with patient/fam, Discussed risks with patient/fam The patient is an appropriate candidate to undergo the planned procedure, sedation, and anesthesia. The patient immediately re-assessed prior to indication. TRAY VARMA MD FACP FAC CCDS Feb 25, 2019 18:41
[2019-02-25] MEDS ORDERED: EPTIFIBATIDE BOLUS 20 ML IV ONE (18:53)
[2019-02-25] MEDS ORDERED: NITRO DRIP 25000 MCG/D5W 0 ML IV ONE (19:01)
[2019-02-25] MEDS ORDERED: CLOPIDOGREL 300 MG (PLAVIX) TABLET PO ONE (19:18)
[2019-02-25] MEDS ORDERED: ASPIRIN 81 MG CHEW (CHILDREN'S ASA) ONE (19:19)
[2019-02-25] MEDS ORDERED: CLOP75TA69 PO (19:29)
[2019-02-25] MEDS ORDERED: ACETAMINOPHEN 500 MG TAB (TYLENOL) PO PRN (19:30)
[2019-02-25] MEDS ORDERED: PATIENT MAY USE OWN MEDS, ALL PO SCH (19:30)
[2019-02-25] MEDS ORDERED: NON-FORMULARY MEDICATION 1 EA EA (Dicyclomine HCl 20 MG) PO PRN (19:30)
--- NOTE | 2019-02-25 19:32 | Discharge Inst-Cardiology ---
Discharge Inst-Cardiac Discharge Medications New Medications: Clopidogrel Bisulfate (Plavix) 75 Mg Tablet 75 MG PO DAILY for 90 Days, #90 TAB 3 Refills Continued Medications: Acetaminophen (Acetaminophen) 500 Mg Tablet 1000 MG PO Q6H PRN for PAIN-MILD, TAB TAKES 2 (500 MG) TABLETS Aspirin (Aspirin EC) 81 Mg Tablet.dr 81 MG PO BID, TAB Atorvastatin Calcium (Atorvastatin Calcium) 40 Mg Tablet 40 MG PO HS, TAB Carvedilol (Coreg) 12.5 Mg Tablet 12.5 MG PO BID, TAB LAST FILLED 12-24-2018 #60 / 30 DAY SUPPLY Dicyclomine HCl (Dicyclomine HCl) 20 Mg Tablet 20 MG PO BID PRN for ABDOMINAL CRAMPING, TAB Digoxin (Digoxin) 125 Mcg Tablet 125 MCG PO DAILY, TAB Enalapril Maleate (Enalapril Maleate) 20 Mg Tablet 20 MG PO DAILY, TAB Insulin Aspart (Novolog Flexpen) 300 Units/3 Ml Solution 20 UNITS SC 1200,1800, EA TAKES WITH LUNCH AND SUPPER Insulin Detemir (Levemir Flextouch) 100 Unit/1 Ml Insuln.pen 20 UNIT SQ BID, EA Lurasidone HCl (Latuda) 80 Mg Tablet 80 MG PO HS, TAB Pantoprazole Sodium (Protonix) 40 Mg Tablet.dr 40 MG PO DAILY, #30 TAB Rivaroxaban (Xarelto) 15 Mg Tablet 15 MG PO DAILY, TAB Discontinued Medications: Metformin HCl (Metformin HCl) 500 Mg Tablet 500 MG PO BID, TAB Patient Instructions Patient Instructions: Do not take METFROMIN until the morning of 02/28/19, then resume previous home dose Stop aspirin after taking it on 03/04/29. Continue all other medication, including Plavix (clopidogrel) and Xarelto (rivaroxaban) Follow up at Dr Jo's office next week TRAY JO MD [facility] CCDS Feb 25, 2019 19:32
--- NOTE | 2019-02-25 19:32 | Discharge Inst-Post CATH ---
Discharge Inst-CATH/EP Post Cardiac Cath/EP D/C Inst Follow Up/Plan Do not take METFROMIN until the morning of 02/28/19, then resume previous home dose Stop aspirin after taking it on 03/04/29. Continue all other medication, including Plavix (clopidogrel) and Xarelto (rivaroxaban) Follow up at Dr Jo's office next week ACTIVITY * Go Home directly and rest. * Limit activity of the leg (or wrist if it was used) for 7 days including aerobics, swimming, jogging, bicycling, etc. * Restrict stair-climbing for 7 days if possible, if not, climb up with your non-cath leg, then bring together on the same step. * Avoid lifting, pushing, pulling or excessive movement of the affected extremity for 7 days. * Customary sexual activity may be resumed after 2 days-use caution not to use a position that strains or causes pain to the affected extremity. * No driving for 24 hours. * NO SMOKING. * Avoid straining for bowel movements for 7 days. * Gentle walking on level ground is allowed. * Returning to work will depend on the type of procedure and the results. Your doctor will discuss this with you. CALL YOUR DOCTOR FOR ANY OF THE FOLLOWING: *If bleeding from the puncture site occurs- Apply gentle pressure to site with clean cloth and call your doctor or EMS. * If a knot or lump forms under the skin, increases in size, or causes pain. * If bruising appears to be worsening or moving further down your leg instead of disappearing. * Temperature above 101 F. CARE OF YOUR GROIN INCISION; * Bruising or purple discoloration of the skin near the puncture site is common. * You may shower only, no bathtub bathing for 5 days. Be careful to avoid slipping as your leg may feel stiff. * If a closure device was used on your femoral artery, please see the attached guide regarding care of the device and your leg. * Leave dressing on FOR 24 hours. CARE OF YOUR WRIST INCISION; * Bruising or purple discoloration of the skin near the puncture site is common. * You may shower. * DO NOT submerge wrist. * Leave dressing on FOR 24 hours. TRAY JO MD FACP [facility] CCDS Feb 25, 2019 19:32
--- NOTE | 2019-02-25 19:43 | Cardiology Discharge Summary ---
Diagnosis/Chief Complaint Date of Admission 02/25/19 Date of Discharge 02/26/19 Final/Discharge Diagnosis New onset angina, treated with PCI of RCA on 02/25/19 (see below) PAF documented on ICD interrogation of 02/16/19 CAD with a h/o CABG in 2004. Cardiac cath of 02-24-17: Severe [place] coronary artery disease consisting of 70% ostial stenosis of the left main coronary artery, 99% to 100% stenosis of the mid left anterior descending artery, occlusion of the proximal left circumflex artery and severe mid vessel stenosis of the right coronary artery. The severe mid vessel stenosis of the right coronary artery was treated with Alpine Xience 3.0 x 30 mm stent, which reduced the stenosis to 0% residual. The right coronary artery also has 50% ostial stenosis. Patent aortocoronary graft to an obtuse marginal artery, but the obtuse marginal artery, distal to the stent, has an 80% stenosis and is a relatively small caliber vessel. Patent left internal mammary artery graft to the mid left anterior descending artery, but the left anterior descending artery is of a small caliber and is occluded in its very distal portion. Elevated left ventricular end-diastolic pressure. Cardiac cath of 03/24/17: successful stenting (2.25x12 Alp Xience) of an OM distal to SVG insertion. Card cath of 02/26/19: 80% distal RCA stenosis stented with Alp Xience 3 x 12 stent, otherwise unchanged Abnormal stress test. MPI of 02/03/17: small to mod anteroseptal ischemia, no RWMA, LVEF 62% Syncope in August 2013 that was due to postural hypotension due to dehydration. No recurrence since DM II H/o CKD, stage 2-3 Hypertension H/o ischemic cardiomyopathy but most recent echo of June 2015 is reported to have shown LVEF 55-60% and mild MR & TR; and PASP of 30-35 mmHg Pacemaker/defib implantation in Apr 2010, functioning normally on interrogation carried out on 02/16/19 Abnormal ECG. ECG on 08/20/16 shows paced atrial rhythm, [place] vent rhythm with diffuse repol abnormality (unchanged from previous ECG) Chronically abnormal ECG Carotid arterial disease with h/o R CEA by Dr Rosales in the , according to the patient. Carotid u/s of 06/07/18: mild bilat plaque Intermittent non-compliance with medical instructions HLP - followed by her PCP Hyperthryoidism per lab of June 2014 - followed by her PCP H/o emilie in the . She has had some speech impairment since then. Has recovered from R-sided weakness Bilateral leg discomfort - segmental pressures of November 2016 is non- diagnostic d/t noncompressibility of the leg vessels. Waveforms however, appear to be good H/o schizophrenia Chief Complaint/HPI Chief Complaint/HPI Plan: Add Plavix. Continue Xarelto indefinitely. ASA for a week, then stop. Continue Plavix for a year, then replace with ASA. Explained to pt and her Discharge Summary Procedures None. Discussion & Recommendations Home Medications Reviewed patient Home Medication Reconciliation performed by pharmacy medication reconciliations audio video technician and/or nursing. Patients Allergies have been reviewed. Discharge Home Medications: Reviewed and agree with Discharge Medication list on patient's Discharge Instruction sheet Instructions to patient/family Do not take METFROMIN until the morning of 02/28/19, then resume previous home dose Stop aspirin after taking it on 03/04/29. Continue all other medication, including Plavix (clopidogrel) and Xarelto (rivaroxaban) Follow up at Dr Jo's office next week TRAY JO MD FACP [facility] CCDS Feb 25, 2019 19:43
[2019-02-25] MEDS ORDERED: DICYCLOMINE 10 MG (BENTYL) CAP PO PRN (20:30)
[2019-02-25] MEDS ORDERED: NON-FORMULARY MEDICATION 1 EA EA (Lurasidone HCl (Latuda) 80 MG) PO SCH (21:00)
[2019-02-25] MEDS ORDERED: NON-FORMULARY MEDICATION 1 EA EA (Insulin Detemir (Levemir Flextouch) 20 UNIT) SQ SCH (21:00)
[2019-02-25] MEDS: CARVEDILOL 12.5 MG (COREG) TABLET PO SCH (22:13)
[2019-02-25] MEDS: ENALAPRIL 10 MG (VASOTEC) TAB PO SCH (22:13)
[2019-02-25] MEDS: ASPIRIN E.C. 81 MG (ECOTRIN) TAB PO SCH (22:13)
[2019-02-26] VITALS: BP 142/82
--- NOTE | 2019-02-26 01:50 | CARDIAC CATHETERIZATION ---
DATE OF SERVICE: 02/25/2019 INDICATIONS: The patient is a 68-year-old lady who is known to have coronary artery disease and who has had coronary artery bypass surgery and subsequent coronary stents. Lately, she has symptoms suggestive of recurrent angina. Cardiac catheterization was carried out today after having obtained an informed consent. DESCRIPTION OF PROCEDURE: She was brought to the cardiac catheterization laboratory in a fasting state. Right groin was prepared and draped in the usual sterile fashion. Lidocaine 1% was used for local anesthesia. Modified Seldinger technique was used to advance a 5-Surinamese sheath in the right femoral artery, 5-Surinamese JL4 catheter was used for left coronary angiography, 5-Surinamese JR4 catheter was used for right coronary artery angiography and for angiography of the aortocoronary graft to the left circumflex and for angiography of the left internal mammary artery graft to left anterior descending. A 5-Surinamese JR4 catheter was also used to carry out left heart catheterization. Following completion of the diagnostic procedure, percutaneous intervention was carried out to the left anterior descending artery that is described below. PERCUTANEOUS INTERVENTION TO THE RIGHT CORONARY ARTERY: We exchanged the sheath over a wire for a 6-Surinamese sheath. We gave a double bolus of Integrilin and 5000 units of intravenous heparin. We used a 6-Surinamese JR4 catheter with side holes. We used a BMW wire to cross the lesion in the distal right coronary artery and the tip was placed in a terminal branch. We advanced Alpine Xience 3 x 12 mm stent to the lesion and the stent was deployed at 20 atmospheres. Full stent expansion was achieved. Subsequent angiography revealed 0% residual stenosis and flow throughout the vessel is normal. She tolerated the procedure well. HEMODYNAMICS: Left ventricular end-diastolic pressure following coronary angiography was 12 mmHg. There is no significant pressure gradient on pullback across the aortic valve. Ascending aortic pressure was 117/62 with a mean of 84 mmHg. CORONARY ANGIOGRAPHY: There is 50% ostial stenosis of the left main coronary artery. The left anterior descending artery is severely diseased in its proximal portion and is occluded in its mid portion. The first diagonal branch is of a very small caliber and has severe ostial and proximal disease. The first obtuse marginal branch of the left circumflex artery is severely diseased. This stenosis is up to 99% in proximal and mid portions. The left circumflex artery itself is of a very small caliber and nondominant. The right coronary artery has a patent stent in its mid portion that is known to be Alpine Xience 3.0 x 30 mm that was placed in 2016. The stent is patent, but there is 80% stenosis distal to the stent. This lesion was intervened on and following deployment of Alpine Xience 3.0 x 12 mm stent, there is no significant residual stenosis. ANGIOGRAPHY OF THE AORTOCORONARY GRAFT: The aortocoronary graft goes to a high obtuse marginal branch of the left circumflex. It is patent and does not exhibit significant disease. Within the obtuse marginal branch, distal to the insertion of the graft, there is a patent stent. This is known to be Alpine Xience 2.25 x 12 mm stent that was placed in 03/2017. LEFT INTERNAL MAMMARY ARTERY GRAFT ANGIOGRAPHY: Left internal mammary artery graft to left anterior descending artery is widely patent. The left anterior descending artery beyond the graft is of a very small caliber and appears to have at least moderate diffuse disease. CONCLUSIONS: 1. Severe coquille coronary artery disease consisting of 50 to 60% ostial stenosis of the left main, mid vessel occlusion of the left anterior descending, severe proximal disease of a small caliber first diagonal, severe proximal stenosis of a high obtuse marginal, and 80% distal stenosis of the distal right coronary artery. The right coronary artery has a patent stent in its mid portion that is known to be Alpine Xience 3.0 x 30 mm. The distal right coronary artery 80% stenosis was successfully stented with Alpine Xience 3.0 x 12 mm stent today. 2. Patent saphenous vein graft to a high obtuse marginal. The high obtuse marginal has a patent stent distal to the insertion of the graft. This is known to be Alpine Xience 2.25 x 12 mm stent. 3. Patent left internal mammary artery graft to distal left anterior descending, but the distal left anterior descending is of a small caliber and has diffuse moderate to moderately severe disease. 4. Normal left ventricular end-diastolic pressure. DISCUSSION AND RECOMMENDATIONS: Plavix has been added to the regimen. Aspirin is being continued for now and will be continued for a week. Subsequently, aspirin will be discontinued because the patient is also on apixaban. Apixaban is to be continued indefinitely for stroke prevention, given the patient's chronic atrial fibrillation. A year from now, Plavix will be discontinued and replaced with aspirin. Risk factor modification has been reviewed. She will remain in the hospital overnight for observation. Job ID: [id number] DocumentID: [id number] Dictated Date: 02/25/2019 19:17:35 Mold Cutting Machine Operator Date: 02/26/2019 01:25:10 Dictated By: TRAY VARMA MD, MA, FACP, FACC, MTDD
[2019-02-26 04:00] VITALS: BP 137/83
[2019-02-26 04:20] LABS: HEMOGLOBIN 10.6 G/DL (11.5-16.0); MEAN PLATELET VOLUME 9.9 FL (7.4-10.4); RED CELL DISTRIBUTION WIDTH 13.5 % (10.0-14.5); WHITE BLOOD COUNT 6.7 10^3/uL (4.3-11.0)
[2019-02-26 04:44] LABS: CALCIUM 8.2 MG/DL (8.5-10.1); CREATININE SERUM 1.07 MG/DL (0.60-1.30); POTASSIUM 4.4 MMOL/L (3.6-5.0)
[2019-02-26 08:00] VITALS: BP 121/67
[2019-02-26] MEDS ORDERED: RIVAROXABAN 15 MG TABLET (XARELTO) PO SCH (08:00)
[2019-02-26] MEDS: ENALAPRIL 10 MG (VASOTEC) TAB PO SCH (08:45)
[2019-02-26] MEDS: ASPIRIN E.C. 81 MG (ECOTRIN) TAB PO SCH (08:45)
[2019-02-26] MEDS: CARVEDILOL 12.5 MG (COREG) TABLET PO SCH (08:45)
[2019-02-26] MEDS ORDERED: PANTOPRAZOLE 40 MG (PROTONIX) TAB PO SCH (09:00)
[2019-02-26] MEDS ORDERED: CLOPIDOGREL 75 MG (PLAVIX) TABLET PO SCH (09:00)
[2019-02-26] MEDS ORDERED: NON-FORMULARY MEDICATION 1 EA EA (Enalapril Maleate 20 MG) PO SCH (09:00)
[2019-02-26] MEDS ORDERED: DIGOXIN 0.125 MG (LANOXIN) TAB PO SCH (09:00)
[2019-02-26 09:12] VITALS: BP 121/67
[2019-02-26 12:00] VITALS: BP 92/61
[2019-02-26] MEDS ORDERED: NON-FORMULARY MEDICATION 1 EA EA (Insulin Aspart (Novolog Flexpen) 20 UNITS) SC SCH (12:00)
[2019-02-26] MEDS ORDERED: inSUlin ASPART (NovoLOG) 1 UNIT/0.01 ML (CHARGE PER UNIT) SC SCH (12:00)
--- NOTE | 2019-02-26 13:36 | NUR ---
IV removed. Entire discharge packet discussed with patient. Patient advised that this nurse faxed a follow up appointment reminder to physicians office. wrote that he would like to see patient next week, patient advised of this. This nurse asked patient to please call 's office if she had not heard from them regarding a follow up appointment by thursday afternoon. Patient agreed. Patient stated that she does not have any further questions at this time. Patient leaving floor at 1336 this nurse took patient out to front door, was at bedside but left 5 minutes before us to pull the car up to the front door. This nurse stood by patient while she transferred from wheelchair into the car.
[2019-02-26 13:51] VITALS: BP 127/64
--- NOTE | 2019-02-26 16:18 | Cardiology Progress Note ---
Cardiology SOAP Progress Note Subjective: No cardiac complaints. Objective: I&O/Vital Signs 02/26/19 02/26/19 02/26/19 02/26/19 07:00 08:00 09:12 12:00 Temp 36.4 36.4 36.2 Pulse 73 70 70 84 Resp 16 B/P (MAP) 121/67 (85) 121/67 (85) 92/61 (71) Pulse Ox 97 97 97 O2 Delivery Room Air Room Air Room Air 02/26/19 02/26/19 13:00 13:51 Pulse 69 B/P (MAP) 127/64 (85) 02/26/19 00:00 Intake Total 1000 ml Balance 1000 ml Weight (Pounds): 191 Weight (Ounces): 0.0 Weight (Calculated Kilograms): 86.203567 Constitutional: AAO x 3 Respiratory: chest is bilaterally symmetric, lungs clear to auscultation Cardiovascular: regular rate-rhythm, S1 and S2 Gastrointestional: soft, audible bowel sounds Extremities: normal range of motion, non-tender, normal inspection, no lower extremity edema bilateral Neurologic/Psychiatric: no motor/sensory deficits, alert, normal mood/affect, oriented x 3 Skin: normal color Results/Procedures: Labs Laboratory Tests 02/25/19 20:49: Glucometer 80 02/26/19 04:09: White Blood Count 6.7, Red Blood Count 3.66L, Hemoglobin 10.6L, Hematocrit 32L, Mean Corpuscular Volume 87, Mean Corpuscular Hemoglobin 29, Mean Corpuscular Hemoglobin Concent 33, Red Cell Distribution Width 13.5, Platelet Count 158, Mean Platelet Volume 9.9, Sodium Level 135, Potassium Level 4.4, Chloride Level 107, Carbon Dioxide Level 18L, Anion Gap 10, Blood Urea Nitrogen 17, Creatinine 1.07, Estimat Glomerular Filtration Rate 51, BUN/Creatinine Ratio 16, Glucose Level 159H, Calcium Level 8.2L 02/26/19 12:12: Glucometer 132H Microbiology 02/22/19 MRSA Screen - Final, Complete MRSA not isolated A/P: Assessment/Dx: New onset angina, treated with PCI of RCA on 02/25/19 (see below) PAF documented on ICD interrogation of 02/16/19 CAD with a h/o CABG in 2004. Cardiac cath of 02-24-17: Severe swinomish coronary artery disease consisting of 70% ostial stenosis of the left main coronary artery, 99% to 100% stenosis of the mid left anterior descending artery, occlusion of the proximal left circumflex artery and severe mid vessel stenosis of the right coronary artery. The severe mid vessel stenosis of the right coronary artery was treated with Alpine Xience 3.0 x 30 mm stent, which reduced the stenosis to 0% residual. The right coronary artery also has 50% ostial stenosis. Patent aortocoronary graft to an obtuse marginal artery, but the obtuse marginal artery, distal to the stent, has an 80% stenosis and is a relatively small caliber vessel. Patent left internal mammary artery graft to the mid left anterior descending artery, but the left anterior descending artery is of a small caliber and is occluded in its very distal portion. Elevated left ventricular end-diastolic pressure. Cardiac cath of 03/24/17: successful stenting (2.25x12 Alp Xience) of an OM distal to SVG insertion. Card cath of 02/26/19: 80% distal RCA stenosis stented with Alp Xience 3 x 12 stent, otherwise unchanged Abnormal stress test. MPI of 02/03/17: small to mod anteroseptal ischemia, no RWMA, LVEF 62% Syncope in August 2013 that was due to postural hypotension due to dehydration. No recurrence since DM II H/o CKD, stage 2-3 Hypertension H/o ischemic cardiomyopathy but most recent echo of June 2015 is reported to have shown LVEF 55-60% and mild MR & TR; and PASP of 30-35 mmHg Pacemaker/defib implantation in Apr 2010, functioning normally on interrogation carried out on 02/16/19 Abnormal ECG. ECG on 08/20/16 shows paced atrial rhythm, swinomish vent rhythm with diffuse repol abnormality (unchanged from previous ECG) Chronically abnormal ECG Carotid arterial disease with h/o R CEA by Dr Rosales in the , according to the patient. Carotid u/s of 06/07/18: mild bilat plaque Intermittent non-compliance with medical instructions HLP - followed by her PCP Hyperthryoidism per lab of June 2014 - followed by her PCP H/o emilie in the . She has had some speech impairment since then. Has recovered from R-sided weakness Bilateral leg discomfort - segmental pressures of November 2016 is non-diag nostic d/t noncompressibility of the leg vessels. Waveforms however, appear to be good H/o schizophrenia Plan: Status post-PCI to the RCA with a drug-eluting stent by Dr. Jo on 02/25/2019. Long-term dual antiplatelet therapy. Discharge instructions were discussed at length with the patient. She will follow-up with Dr. Jo in one month. Thank you for your consultation. Please call me if you have any questions. Keeley Yang MD, FACP, FACC, FSCAI, FHRS, CCDS Interventional Cardiology Cardiac Electrophysiology Vascular Medicine and Endovascular Interventions Ramirez YANG MD Feb 26, 2019 16:18
== END 2019-02-26 13:36 ==
LOC: CATH 14:48 → CSD 19:36 → CATH 02-26 13:36
PROVIDERS: ATTEND Internal Medicine Cardiovascular Disease
DX: I25.119 Atherosclerotic heart disease of native coronary artery with unspecified angina pectoris (principal); I48.0 Paroxysmal atrial fibrillation; I13.10 Hypertensive heart and chronic kidney disease without heart failure, with stage 1 through stage 4 chronic kidney disease, or unspecified chronic kidney disease; E11.22 Type 2 diabetes mellitus with diabetic chronic kidney disease; N18.3 Chronic kidney disease, stage 3 (moderate); I25.5 Ischemic cardiomyopathy; I73.9 Peripheral vascular disease, unspecified; E03.9 Hypothyroidism, unspecified; I77.9 Disorder of arteries and arterioles, unspecified; E78.5 Hyperlipidemia, unspecified; F32.9 Major depressive disorder, single episode, unspecified; Z79.899 Other long term (current) drug therapy; Z91.018 Allergy to other foods; Z91.048 Other nonmedicinal substance allergy status; Z79.82 Long term (current) use of aspirin; Z79.84 Long term (current) use of oral hypoglycemic drugs; Z79.02 Long term (current) use of antithrombotics/antiplatelets; Z95.0 Presence of cardiac pacemaker; Z90.710 Acquired absence of both cervix and uterus; Z91.14 Patient's other noncompliance with medication regimen; Z79.01 Long term (current) use of anticoagulants; Z82.49 Family history of ischemic heart disease and other diseases of the circulatory system; Z83.3 Family history of diabetes mellitus
CPT/HCPCS: 36415; 80048; 80053; 80061; 80162; 82962; 85027; 85610; 85730; 87081; 93459

== ENCOUNTER 2019-05-31 18:56 | Emergency (ER) | payer MEDICARE ==
[~2019-05-31] VITALS: Ht 162 cm; Wt 77.0 kg
[~2019-05-31 18:56] MED LIST changes: -ACET-2469 PO; +ACET-2715 PO; +DIGO125T3 PO; -ENAL5TAB PO; +ENLP5T PO; -HEParin 1000 UNIT/ML (10ML VIAL) FOR BOLUS ONE; -LIDOCAINE 1% INJ 20 ML 20 ML VIAL ONE; +METF500T19 PO; -METF500T8 PO; -NS IV 1000 ML 1,000 ML IV SCH; -NS IV 1000 ML 1,000 ML ONE; -NS IV 1000 ML 2,000 ML ONE; +ZIPR80CA21 PO; -ZIPR80CA23 PO
--- NOTE | 2019-05-31 19:12 | NUR ---
PT STATES THAT SHE WENT TO [place] WITH A MAN THAT PASTED AWAY FROM [facility]. SHE WAS IN [place] WITH HIM A COUPLE WEEKS AGO AND SHOOK HIS HAND. PT DENIES ANY RESPIRATORY ISSUES AND HAS NOT BEEN RUNNING A FEVER.
[2019-05-31 19:22] LABS: BASOPHILS % (AUTO) 1 % (0-10); EOSINOPHILS # (AUTO) 0.1 10^3/uL (0.0-0.3); EOSINOPHILS % (AUTO) 1 % (0-10); HEMATOCRIT 39 % (35-52); HEMOGLOBIN 13.4 G/DL (11.5-16.0); LYMPHOCYTES # (AUTO) 1.6 X 10^3 (1.0-4.0); LYMPHOCYTES % (AUTO) 20 % (12-44); MEAN CORPUSCULAR HEMOGLOBIN 29 PG (25-34); MEAN CORPUSCULAR HGB CONC 34 G/DL (32-36); MEAN CORPUSCULAR VOLUME 84 FL (80-99); MEAN PLATELET VOLUME 9.8 FL (7.4-10.4); MONOCYTES # (AUTO) 0.5 X 10^3 (0.0-1.0); MONOCYTES % (AUTO) 7 % (0-12); NEUTROPHILS # (AUTO) 5.8 X 10^3 (1.8-7.8); NEUTROPHILS % (AUTO) 72 % (42-75); PLATELET COUNT 174 10^3/uL (130-400); RED CELL DISTRIBUTION WIDTH 13.7 % (10.0-14.5)
[2019-05-31 19:32] LABS: PROTHROMBIN TIME PATIENT 13.9 SEC (12.2-14.7)
[2019-05-31 19:36] LABS: ALANINE AMINOTRANSFERASE 22 U/L (0-55); ALBUMIN 4.2 GM/DL (3.2-4.5); ALKALINE PHOSPHATASE 137 U/L (40-136); BILIRUBIN,TOTAL 0.4 MG/DL (0.1-1.0); BUN/CREATININE RATIO 21; CALCIUM 9.6 MG/DL (8.5-10.1); CARBON DIOXIDE 25 MMOL/L (21-32); CHLORIDE 101 MMOL/L (98-107); CREATINE KINASE 36 U/L (29-168); CREATININE SERUM 1.17 MG/DL (0.60-1.30); GFR ESTIMATED 46; GLUCOSE 139 MG/DL (70-105); MAGNESIUM 1.2 MG/DL (1.6-2.4); POTASSIUM 4.5 MMOL/L (3.6-5.0); SODIUM 137 MMOL/L (135-145); TOTAL PROTEIN 7.5 GM/DL (6.4-8.2)
--- NOTE | 2019-05-31 19:51 | Diagnostic Imaging Report ---
EXAM: Portal chest INDICATION: Malfunctioning defibrillator. COMPARISON is made to a prior study from 02/23/2019. FINDINGS: Positioning of the patient's defibrillator appears unchanged. The patient is status post sternotomy. Heart size is stable. Pulmonary vascularity appears appropriate. There is no effusion or evidence of a pneumothorax. No focal pulmonary infiltrates are evident. IMPRESSION: 1. Stable positioning of the patient's defibrillator device. 2. No acute cardiopulmonary process. Dictated by: Dictated on workstation # [id number]
--- NOTE | 2019-05-31 19:58 | ED Cardiac General ---
History of Present Illness General Chief Complaint: Cardiac/General Problems Stated Complaint: SOB;PACEMAKER GOING OFF Nursing Triage Note: PT STATES HER "PACEMAKER HAS BEEN GOING OFF FOR THREE DAYS" SAYS IT'S MAKING NOISE AND A LITTLE DISCOMFORT IN HER LT UPPER CHEST, SOB, 99% AT TRIAGE. Source: patient (POOR HISTORIAN) History of Present Illness Date Seen by Provider: May 31, 2019 Time Seen by Provider: 19:15 Initial Comments PT ARRIVES VIA POV FROM HOME STATES THAT FOR THE LAST 3 DAYS HER "PACEMAKER KEEPS GOING OFF" ( HAS [facility] PACEMAKER AND DEFIBRILLATOR PLACED 04/30/2010 PER OLD RECORD ) STATES SHE HAS NOT HAD ANY SHOCKS OR FELT ANYTHING, STATES SHE HAS JUST BEEN HEARING A NOISE FROM HER PACEMAKER FOR THE LAST 3 DAYS PT STATES SHE HAS A LITTLE SORENESS OVER THE DEVICE, BUT NO REDNESS OR SWELLING OR BRUISING OTHERWISE PT HAS NO SYMPTOMS OF ANY KIND NO ACTUAL CHEST PAIN NO PALPITATIONS OR DEFIBRILLATOR DISCHARGE NO SHORTNESS OF BREATH NO SWELLING IN LEGS/FEET OR PAIN IN CALVES PCP: CELINE CALDERON AT [facility] SUPERVISOR: DR. VARMA Allergies and Home Medications Allergies Coded Allergies: Bleach (Sodium Hypochlorite) (Verified Allergy, Unknown, 09/25/16) corn (Unverified Allergy, Unknown, 02/07/10) perfume (Verified Allergy, Unknown, 09/25/16) Home Medications Acetaminophen 500 Mg Tablet, 1,000 MG PO Q6H PRN for PAIN-MILD, (Reported) TAKES 2 (500 MG) TABLETS Aspirin 81 Mg Tablet.dr, 81 MG PO BID, (Reported) Atorvastatin Calcium 40 Mg Tablet, 40 MG PO HS, (Reported) Carvedilol 12.5 Mg Tablet, 12.5 MG PO BID, (Reported) LAST FILLED 12-24-2018 #60 / 30 DAY SUPPLY Clopidogrel Bisulfate 75 Mg Tablet, 75 MG PO DAILY Prescribed by: TRAY VARMA on 02/25/191928 Dicyclomine HCl 20 Mg Tablet, 20 MG PO BID PRN for ABDOMINAL CRAMPING, (Reported) Digoxin 125 Mcg Tablet, 125 MCG PO DAILY, (Reported) Enalapril Maleate 20 Mg Tablet, 20 MG PO DAILY, (Reported) Insulin Aspart 300 Units/3 Ml Solution, 20 UNITS SC 1200,1800, (Reported) TAKES WITH LUNCH AND SUPPER Insulin Detemir 100 Unit/1 Ml Insuln.pen, 20 UNIT SQ BID, (Reported) Lurasidone HCl 80 Mg Tablet, 80 MG PO HS, (Reported) Pantoprazole Sodium 40 Mg Tablet.dr, 40 MG PO DAILY Prescribed by: HAYLIE CHAMBERLAIN on 02/23/19 7503 Rivaroxaban 15 Mg Tablet, 15 MG PO DAILY, (Reported) Patient Home Medication List Home Medication List Reviewed: Yes Review of Systems Review of Systems Constitutional: no symptoms reported; No chills, No diaphoresis, No dizziness, No fever, No malaise, No weakness EENTM: No Symptoms Reported Respiratory: No Symptoms Reported; Denies Cough, Denies Orthopnea, Denies Shortness of Air, Denies Wheezing Cardiovascular: No Symptoms Reported; Denies Chest Pain, Denies Edema, Denies Irregular Heart Rate, Denies Lightheadedness, Denies Palpitations, Denies Syncope Gastrointestinal: No Symptoms Reported; Denies Abdominal Pain, Denies Nausea, Denies Vomiting Genitourinary: No Symptoms Reported Musculoskeletal: No back pain; other (STATES ALL OF HER MUSCLES IN HER ARMS AND LEGS HURT ALL THE TIME--CHRONIC PROBLEM) Skin: no symptoms reported Psychiatric/Neurological: No Symptoms Reported; Denies Headache, Denies Numbness, Denies Paresthesia, Denies Weakness Endocrine: No Symptoms Reported Hematologic/Lymphatic: No Symptoms Reported Past Bxkrzlo-Zaofip-Rgytqg Hx Past Med/Social Hx: Reviewed and Corrections made Patient Social History Alcohol Use: Denies Use Recreational Drug Use: No Smoking Status: Never a Smoker 2nd Hand Smoke Exposure: No Recent Foreign Travel: No Contact w/Someone Who Travel: No Recent Infectious Disease Expo: No Recent Hopitalizations: Yes (02/2019) Physical Abuse: No Sexual Abuse: No Mistreated: No Fear: No Immunizations Up To Date Tetanus Booster (TDap): Unknown PED Vaccines UTD: No Date of Pneumonia Vaccine: Sep 05, 2016 Seasonal Allergies Seasonal Allergies: No Past Medical History Surgeries: Yes (right carotid endarterectomy, colonoscopy, valve replacement) CABG, Coronary Stent, Defibrillator, Gallbladder, Hysterectomy, Pacemaker Respiratory: No Currently Using CPAP: No Currently Using BIPAP: No Cardiac: Yes (CARDIAC CATHS-STENTS X3; 2 VESSEL CABG; CAROTID ENDARTERECTOMY;PACER/DEFIB) Atrial Fibrillation, Cardiomyopathy, Coronary Artery Disease, High Cholesterol, Hypertension, Irregular Heartbeat, Peripheral Vascular (CAROTID DISEASE) Neurological: Yes (CVA - SIDE WEAKNESS RESOLVED, MILD RESIDUAL SPEECH IMPAIRMENT) Stroke Reproductive Disorders: No 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: Hysterectomy Genitourinary: Yes (NO DIALYSIS) Renal Failure, UTI-Chronic Gastrointestinal: Yes Gall Bladder Disease Musculoskeletal: Yes Arthritis Endocrine: Yes Diabetes, Insulin dep, Hypothyroidsim HEENT: Yes Cataract, Macular Degeneration Loss of Vision: Denies Hearing Impairment: Denies Cancer: No Did You Recieve Any Treatments: No Psychosocial: Yes Anxiety, Schizophrenia, Depression Integumentary: No Blood Disorders: No Adverse Reaction/Blood Tranf: No Family Medical History Family history: Diabetes mellitus 19 MOTHER Family history: Hypertension 19 FATHER 19 MOTHER Psychotic disorder G8 BROTHER (MENTAL HEALTH PROBLEMS) No Pertinent Family Hx PSH: -RIGHT CAROTID ENDARTERECTOMY -MULTIPLE CARDIAC CATHS WITH 2 VESSEL CABG IN 2004 AND STENTS X 3--LAST CATH 02/25/19-STENT TO RCA -PACEMAKER/DEFIBRILLATOR PLACED 04/30/10 FOR ISCHEMIC CARDIOMYOPATHY WITH EF < 20% AND PAROXYSMAL ATRIAL FIBRILLATION/FLUTTER --[facility] DEVICE. -CHOLECYSTECTOMY -HYSTERECTOMY Physical Exam Vital Signs Vital Signs - First Documented 05/31/19 05/31/19 19:03 21:20 Temp 36.5 Pulse 71 Resp 16 B/P (MAP) 187/101 (129) Pulse Ox 99 O2 Delivery Room Air Capillary Refill : Less Than 3 Seconds Height, Weight, BMI Height: 5'4.00" Weight: 191lbs. 0.0oz. 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/Affect, 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 Norm as Tested Skin: Normal Color, Warm/Dry; No Rash Progress/Results/Core Measures Results/Orders Lab Results Laboratory Tests Test 05/31/19 19:08 Range/Units White Blood Count 8.0 4.3-11.0 10^3/uL Red Blood Count 4.66 4.35-5.85 10^6/uL Hemoglobin 13.4 11.5-16.0 G/DL Hematocrit 39 35-52 % Mean Corpuscular Volume 84 80-99 FL Mean Corpuscular Hemoglobin 29 25-34 PG Mean Corpuscular Hemoglobin Concent 34 32-36 G/DL Red Cell Distribution Width 13.7 10.0-14.5 % Platelet Count 174 130-400 10^3/uL Mean Platelet Volume 9.8 7.4-10.4 FL Neutrophils (%) (Auto) 72 42-75 % Lymphocytes (%) (Auto) 20 12-44 % Monocytes (%) (Auto) 7 0-12 % Eosinophils (%) (Auto) 1 0-10 % Basophils (%) (Auto) 1 0-10 % Neutrophils # (Auto) 5.8 1.8-7.8 X 10^3 Lymphocytes # (Auto) 1.6 1.0-4.0 X 10^3 Monocytes # (Auto) 0.5 0.0-1.0 X 10^3 Eosinophils # (Auto) 0.1 0.0-0.3 10^3/uL Basophils # (Auto) 0.0 0.0-0.1 10^3/uL Prothrombin Time 13.9 12.2-14.7 SEC INR Comment 1.0 0.8-1.4 Activated Partial Thromboplast Time 30 24-35 SEC Sodium Level 137 135-145 MMOL/L Potassium Level 4.5 3.6-5.0 MMOL/L Chloride Level 101 98-107 MMOL/L Carbon Dioxide Level 25 21-32 MMOL/L Anion Gap 11 5-14 MMOL/L Blood Urea Nitrogen 24 H 7-18 MG/DL Creatinine 1.17 0.60-1.30 MG/DL Estimat Glomerular Filtration Rate 46 BUN/Creatinine Ratio 21 Glucose Level 139 H 70-105 MG/DL Calcium Level 9.6 8.5-10.1 MG/DL Corrected Calcium 9.4 8.5-10.1 MG/DL Magnesium Level 1.2 L 1.6-2.4 MG/DL Total Bilirubin 0.4 0.1-1.0 MG/DL Aspartate Amino Transf (AST/SGOT) 21 5-34 U/L Alanine Aminotransferase (ALT/SGPT) 22 0-55 U/L Alkaline Phosphatase 137 H 40-136 U/L Total Creatine Kinase 36 29-168 U/L Creatine Kinase MB 1.1 <6.6 NG/ML Myoglobin 16.3 10.0-92.0 NG/ML Troponin I < 0.028 <0.028 NG/ML B-Type Natriuretic Peptide 38.6 <100.0 PG/ML Total Protein 7.5 6.4-8.2 GM/DL Albumin 4.2 3.2-4.5 GM/DL TSH [place] Testing 3.28 0.35-4.94 UIU/ML Micro Results Microbiology 05/31/19 Influenza Types A,B Antigen (KRISTIN) - Final, Complete My Orders Orders - ANDREW BINGHAM DO Ed Iv/Invasive Line Start (05/31/19 19:15) Ekg Tracing (05/31/19 19:15) O2 (05/31/19 19:15) Monitor-Rhythm Ecg Trace Only (05/31/19 19:15) BNP (05/31/19 19:15) Cbc With Automated Diff (05/31/19 19:15) Comprehensive Metabolic Panel (05/31/19 19:15) Creatine Kinase (05/31/19 19:15) Creatine Kinase Mb (05/31/19 19:15) Magnesium (05/31/19 19:15) Protime With Inr (05/31/19 19:15) Partial Thromboplastin Time (05/31/19 19:15) Thyroid Analyzer (05/31/19 19:15) Influenza A And B Antigens (05/31/19 19:15) Myoglobin Serum (05/31/19 19:15) Troponin I (05/31/19 19:15) Chest 1 View, Ap/Pa Only (05/31/19 19:15) Magnesium 1 Gm/100 Ml Ivpb (Magnesium Macdonald (05/31/19 20:00) Hydralazine Injection (Apresoline Inject (05/31/19 20:30) Magnesium Oxide Tablet (Mag Ox Tablet) (05/31/19 21:15) Magnesium 1 Gm/100 Ml Ivpb (Magnesium Macdonald (05/31/19 21:15) Medications Given in ED Current Medications Medications Dose Ordered Sig/Roxana Route Start Time Stop Time Status Last Admin Dose Admin Hydralazine HCl 10 mg ONCE ONCE IV 05/31/19 20:30 05/31/19 20:31 DC 05/31/19 20:28 10 MG Magnesium Oxide 1,200 mg ONCE ONCE PO 05/31/19 21:15 05/31/19 21:16 DC 05/31/19 21:19 1,200 MG Vital Signs/I&O 05/31/19 05/31/19 19:03 21:20 Temp 36.5 Pulse 71 74 Resp 16 B/P (MAP) 187/101 (129) 154/77 Pulse Ox 99 O2 Delivery Room Air Room Air 06/01/19 00:00 Intake Total 100 ml Balance 100 ml Blood Pressure Mean: 129 Progress Progress Note : Progress Note PT HAD NO SYMPTOMS OF ANY KIND DURING ER STAY DEVICE INTERROGATION DONE BY NURSING STAFF Initial ECG Impression Date: May 31, 2019 Initial ECG Impression Time: 19:06 Initial ECG Rate: 70 Comment 100% ATRIAL PACED Diagnostic Imaging Comments CXR--NO ACUTE PROCESS, PER RADIOLOGIST REPORT AT 1958 Reviewed: Reviewed by Ky Departure Communication (Admissions) 2009--RECEIVED CALL BACK FROM [facility] REP--DEVICE INTERROGATION SHOWS NO FIRING AND NO ARRHYTHMIAS, YESTERDAY TRIPPED "MIAH"--NEEDS BATTERY REPLACED, WITH 90 DAYS OF FULLY FUNCTIONING DEVICE. 2011--SPOKE WITH DR. YANG, ADVISES TO SEND PT HOME AND FOLLOW UP WITH DR. VARMA Impression Primary Impression: LOW BATTERY SIGNAL ON PACEMAKER/DEFIBRILLATOR Additional Impressions: Hypomagnesemia HTN (hypertension) Disposition: HOME, SELF-CARE Condition: Stable Departure-Patient Inst. Referrals: [facility]/ (PCP) Primary Care Physician WOOD CALDERON (Family) Primary Care Physician TRAY VARMA MD FACP FAC CCDS Patient Instructions: High Blood Pressure (DC), Low Magnesium Level (DC), Pacemaker Check Add. Discharge Instructions: HOME, REST CONTINUE YOUR CURRENT MEDICATIONS PRESCRIBED FOLLOW UP WITH DR. VARMA FOR PACEMAKER/DEFIBRILLATOR EVALUATION/REPLACEMENT--CALL IN AM TO MAKE AN APPOINTMENT All discharge instructions reviewed with patient and/or family. Voiced understanding. ANDREW BINGHAM DO May 31, 2019 19:58
[2019-05-31 20:00] LABS: CREATINE KINASE MB 1.1 NG/ML (<6.6); TSH (THYROID ANALYZER) 3.28 UIU/ML (0.35-4.94)
[2019-05-31] MEDS ORDERED: MAGNESIUM 1 GM/100 ML IVPB 100 ML IV SCH (20:00)
--- NOTE | 2019-05-31 20:05 | NUR ---
INTERROGATION COMPLETE, WAITING ON RESULTS.
--- NOTE | 2019-05-31 20:15 | NUR ---
INTERROGATION RESULTS CALLED IN TO FREDRICK TAYLOR, STATES THAT THE BUZZ INDICATED THE BATTERY IS LOW ON THE DEVICE AND THAT THERE HAS BEEN NO ARRYTHEMIA NOTED. THE BUZZ SHOULD STOP NOW AND THE DEVICE SHOULD BE GOOD FOR 90 DAYS.
--- NOTE | 2019-05-31 20:19 | NUR ---
PT'S ALEXIS CALLED BY THIS RN AND UPDATED ON THINGS AT PT'S REQUEST. ALEXIS [phone]
[2019-05-31] MEDS ORDERED: hydrALAZINE (APESOLINE) 20 MG/ML VIAL IV ONE (20:30)
[2019-05-31] MEDS ORDERED: MAGNESIUM OXIDE (MAG-OX)400 MG TAB PO ONE (21:15)
[2019-05-31] MEDS ORDERED: MAGNESIUM 1 GM/100 ML IVPB 100 ML IV ONE (21:15)
[2019-05-31 21:20] VITALS: BP 154/77
== END 2019-05-31 21:20 | disposition home or self-care (01) ==
LOC: EDUNIT# 18:56 → ER 18:58
DX: T82.191A Other mechanical complication of cardiac pulse generator (battery), initial encounter (principal); E83.42 Hypomagnesemia; I10 Essential (primary) hypertension; I25.5 Ischemic cardiomyopathy; I25.10 Atherosclerotic heart disease of native coronary artery without angina pectoris; I48.0 Paroxysmal atrial fibrillation; I48.92 Unspecified atrial flutter; E11.9 Type 2 diabetes mellitus without complications; I69.328 Other speech and language deficits following cerebral infarction; M19.91 Primary osteoarthritis, unspecified site; E03.9 Hypothyroidism, unspecified; H35.30 Unspecified macular degeneration; F41.9 Anxiety disorder, unspecified; F32.9 Major depressive disorder, single episode, unspecified; F20.9 Schizophrenia, unspecified; Z79.4 Long term (current) use of insulin; Z90.710 Acquired absence of both cervix and uterus; Z95.5 Presence of coronary angioplasty implant and graft; Z95.1 Presence of aortocoronary bypass graft; Z90.49 Acquired absence of other specified parts of digestive tract
CPT/HCPCS: 36415; 71045; 80053; 82550; 82553; 83735; 83874; 83880; 84443; 84484; 85025; 85610; 85730; 87804; 93005; 93041

== ENCOUNTER 2019-07-05 08:01 | Day surgery (SDC) | payer MEDICARE ==
[~2019-07-05] VITALS: Ht 162.6 cm; Wt 75.9 kg
[2019-07-05] VITALS (11 sets, daily range): BP systolic 111–167; BP diastolic 57–91
[2019-07-05] MEDS ORDERED: ceFAZolin INJECTION 1,000 MG ONE (08:07)
[2019-07-05] MEDS ORDERED: LIDOCAINE 1% INJ 20 ML 20 ML VIAL ONE (08:07)
[2019-07-05] MEDS ORDERED: NS IV 1000 ML 1,000 ML ONE (08:08)
[2019-07-05] MEDS ORDERED: HEParin (CATH LAB) 1,000 ML IV ONE (08:08)
--- OUTSIDE RECORDS SUMMARY | 2019-07-05 08:09 | XMS REPORT ---
Author Author Melina Cortez Organization [facility] Address [address] [place] [address] Care Team Providers Care Outsole Paraffiner Name Role Phone CHIQUITA Cortez Unavailable PROBLEMS Type Condition ICD9-CM Code HCN75-TG Code Onset Dates Condition S tatus SNOMED Code Problem Coronary artery disease invo lving [place] coronary artery of [place] heart without angina pectoris I25.10 Active 1641 [id number] Problem Bipolar affective disorder, current episode mixed, current episode severity unspecified F31.60 Active 7537285 08 Problem custodial current use of insulin Z79.4 Active 107818100 Problem Chronic idiopathic constipation K59.04 Active 57035901 Problem Age-related incipient cataract of both eyes H25.09 3 Active 240624410 Problem 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 Active 206637465 Problem Essential hypertension I10 Active 27546139 Problem Diabetes E11.9 Active 51271742 Problem Diabetes 1.5, 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 115436159 Problem Slow transit constipation K59.01 Acti ve 69338452 Problem Food allergy Z91.018 Active 5425130 01 Problem Irritable bowel syndrome with both constipation and diarrh ea K58.2 Active 88898782 Problem Irritable bowel syndrome with diarrhea K58.0 Active 175939857 Problem Arthritis of back M47.9 Active 68 251789 Problem Pacemaker Z95.0 Active 864972067 Problem Type 2 diabetes mellitus with diabetic chronic kidney disease E11.22 Active 07302803 Problem Constipation K59.00 Active 9618850 8 Problem CVA (cerebral vascular accident) I63.9 Active 068492177 Problem Psychosis, unspecified psychosis type F29 Active 75789028 Problem Irritable bowel syndrome with both constipation and diarrh ea K58.2 Active 32843896 Problem custodial (current) use of insulin Z79.4 Active 841826823 Problem Chronic kidney disease, stage 3 (moderate) N18.3 Active 172425420 Problem Irritable bowel syndrome with diarrhea K58.0 Active [id number] ALLERGIES No Information ENCOUNTERS Encounter Location Date Diagnosis [place] [address] [address] 08 Jun, 2019 [facility] [address] [place] [id number] [place] [address] May, [place] [address] [address] 23 May, 2019 Diabetes E11.9 [place] [address] [address] 14 May, 2019 Diabetes E11.9 [place] [address] [address] 02 May, 2019 Diabetes E11.9 [place] [address] [address] Feb, Type 2 diabetes mellitus wit h diabetic chronic kidney disease E11.22 ; Chronic kidney disease, stage 3 (moderate) N18.3 ; salvage determiner (current) use of insulin Z79.4 ; Weight loss R63.4 ; Colon cancer screening Z12.11 ; Irritable bowel syndrome with both constipation and diarrhea K58.2 ; Essential hypertension I10 ; Pacemaker Z95.0 and Food allergy Z91.018 [place] [address] [place] [address] Jan, Diabetes E11.9 [place] [address] [place] [id number] [address] [place] [address] Jan, [facility] [address] [place] [id number] [address] Dec, Bipolar affective disorder, current epis ode mixed, current episode severity unspecified F31.60 [place] [address] [place] [id number] [address] [place] [address] Dec, [place] [address] [place] [id number] [place] [address] Nov, Diabetes E11.9 [facility] [address] [id number] [address] [place] [address] Oct, [facility] [address] [id number] [address] [place] [address] Oct, [facility] [address] [facility] [id number] [address] [place] [address] Sep, Generalized abdominal pain R 10.84 ; Slow transit constipation K59.01 and Diabetes E11.9 [facility] [address] [id number] [address] [place] [address] Aug, Viral upper respiratory trac t infection J06.9 [facility] [address] [facility] [id number] [address] [place] [address] Aug, [facility] [address] [facility] [id number] [address] [place] [address] Aug, Bipolar affective disorder, current episode mixed, current episode severity unspecified F31.60 [facility] [address] [facility] [id number] [address] [place] [address] Aug, Bipolar affective disorder, current episode mixed, current episode severity unspecified F31.60 [facility] [address] [facility] [id number] [address] [place] [address] Aug, Viral upper respiratory trac t infection J06.9 [facility] [address] [facility] [id number] [address] [place] [address] Aug, [facility] [address] [facility] [id number] [address] [place] [address] Jun, Type 2 diabetes mellitus wit h diabetic cataract E11.36 and custodial current use of insulin Z79.4 [facility] [address] [facility] [id number] [address] [place] [address] May, [facility] [address] [facility] [id number] [address] [place] [address] Apr, [facility] [address] [place] [id number] [address] [place] [address] Apr, Diabetes E11.9 [place] [address] [place] [id number] [place] [address] Apr, Bipolar affective disorder, current episode mixed, current episode severity unspecified F31.60 [place] [address] [place] [id number] [place] [address] Apr, [place] [address] [place] [id number] [place] [address] Mar, [place] [address] [place] [id number] [place] [address] Mar, Psychosis, unspecified psych osis type F29 and Bipolar affective disorder, current episode mixed, current episode severity unspecified F31.60 [place] [address] [address] Mar, [facility] [address] [address] Mar, Low back pain M54.5 and Arth ritis of back M47.9 [place] [address] [address] Mar, [facility] [address] [place] [id number] [place] [address] Feb, Abdominal pain R10.9 and Con stipation K59.00 [place] [address] [address] Feb, Vertigo R42 ; Type 2 diabete s mellitus with diabetic cataract E11.36 ; Hyperglycemia R73.9 and Essential hypertension I10 [place] [address] [place] [id number] [place] [address] Jan, [place] [address] [place] [id number] [place] [address] Dec, [place] [address] [place] [address] Dec, [facility] [address] [id number] [address] [place] [address] Dec, Dizziness R42 and Diabetes 1 .5, 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 [facility] [address] [facility] [id number] [address] [place] [address] Dec, [facility] [address] [facility] [id number] [address] [place] [address] Dec, [facility] [address] [facility] [id number] [address] [place] [address] Dec, Psychosis, unspecified psych osis type F29 and Bipolar affective disorder, current episode mixed, current episode severity unspecified F31.60 [facility] [address] [facility] [id number] [address] [place] [address] Dec, [facility] [address] [facility] [id number] [address] [place] [address] Dec, [facility] [address] [facility] [id number] [address] [place] [address] Dec, Type 2 diabetes mellitus wit h diabetic cataract E11.36 ; salvage determiner current use of insulin Z79.4 and Hyperglycemia R73.9 [facility] [address] [facility] [id number] [address] [place] [address] Oct, [facility] [address] [facility] [id number] [address] [place] [address] Oct, [facility] [address] [facility] [id number] [address] [place] [address] Oct, [facility] [address] [facility] [id number] [address] [place] [address] Sep, [facility] [address] [facility] [id number] [address] [place] [address] Aug, Upper respiratory tract infe ction, unspecified type J06.9 ; Chronic idiopathic constipation K59.04 ; Fluid level behind tympanic membrane of both ears H65.93 and Abdominal pain R10.9 [place] [address] [id number] [address] [place] [address] July, Diabetes E11.9 [facility] [address] [id number] [address] [place] [address] Jun, Dehydration E86.0 ; Diabetes E11.9 and Hyperglycemia R73.9 [place] [address] [id number] [address] [place] [address] Jun, [place] [address] [id number] [address] [place] [address] Jun, Vertigo R42 ; Syncope, unspe cified syncope type R55 ; Diabetes E11.9 and Hyperglycemia R73.9 [place] [address] [id number] [address] [place] [address] May, Psychosis, unspecified psych osis type F29 and Bipolar affective disorder, current episode mixed, current episode severity unspecified F31.60 [place] [address] [facility] [id number] [address] [place] [address] May, [place] [address] [facility] [id number] [address] [place] [address] May, Diabetes E11.9 [facility] [address] [id number] [address] [place] [id number] Apr, Dental examination Z01.20 an d Dental caries K02.9 [place] [address] [id number] [address] [place] [address] Apr, Dental examination Z01.20 an d Dental abscess K04.7 [place] [address] [facility] [id number] [address] [place] [address] Mar, Psychosis, unspecified psych osis type F29 and Bipolar affective disorder, current episode mixed, current episode severity unspecified F31.60 [place] [address] [facility] [id number] [address] [place] [address] Mar, [facility] [address] [facility] [id number] [address] [place] [address] Feb, [facility] [address] [facility] [id number] [address] [place] [address] Feb, Left wrist pain M25.532 [facility] [address] [facility] [id number] [address] [place] [address] Jan, [facility] [address] [facility] [id number] [address] [place] [address] Jan, Psychosis, unspecified psych osis type F29 and Bipolar affective disorder, current episode mixed, current episode severity unspecified F31.60 [place] [address] [place] [id number] [address] [place] [address] Jan, Diabetes E11.9 [facility] [address] [place] [id number] [place] [address] Jan, Left wrist pain M25.532 [place] [address] [facility] [id number] [address] [place] [address] Dec, Psychosis, unspecified psych osis type F29 and Bipolar affective disorder, current episode mixed, current episode severity unspecified F31.60 [place] [address] [place] [id number] [address] [place] [address] Dec, Syncope, unspecified syncope type R55 ; Vertigo R42 ; Diabetes E11.9 ; Psychosis, unspecified psychosis type F29 and Fall, initial encounter W19.XXXA [facility] [address] [facility] [id number] [address] [place] [address] Dec, Diabetes E11.9 ; Neck pain M 54.2 and Vertigo R42 [place] [address] [facility] [id number] [address] [place] [address] 13 Nov, [address] [facility] [address] [facility] [id number] [address] [place] [address] Nov, [facility] [address] [place] [id number] [address] [place] [address] 08 Nov, 2016 [facility] [address] [id number] [address] [place] [address] 06 Nov, 2016 Diabetes E11.9 [facility] [address] [id number] [address] [place] [address] 05 Nov, 2016 Diabetes E11.9 [facility] [address] [id number] [address] [place] [address] Oct, [facility] [address] [id number] [facility] [place] [id number] Oct, [facility] [address] [id number] [address] [place] [address] Oct, [facility] [address] [id number] [address] [place] [address] Oct, Bipolar affective disorder, current episode mixed, current episode severity unspecified F31.60 [facility] [id number] [id number] Sep, [facility] [address] [id number] [address] [place] [address] Sep, Bipolar affective disorder, current episode mixed, current episode severity unspecified F31.60 [facility] [address] [id number] [address] [place] [address] Sep, Acute maxillary sinusitis, r ecurrence not specified J01.00 [facility] [address] [id number] [address] [place] [address] Sep, Diabetes E11.9 [facility] [address] [id number] [address] [place] [address] July, Diabetes E11.9 [facility] [address] [id number] [address] [place] [address] July, Diabetes E11.9 [facility] [address] [id number] [address] [place] [address] Jun, [facility] [address] [facility] [id number] [address] [place] [address] May, Bipolar affective disorder, current episode mixed, current episode severity unspecified F31.60 [facility] [address] [facility] [id number] [address] [place] [address] May, Acute non-recurrent maxillar y sinusitis J01.00 [place] [address] [facility] [id number] [address] [place] [address] 10 Apr, 2016 Psychosis, unspecified psych osis type F29 and Bipolar affective disorder, current episode mixed, current episode severity unspecified F31.60 [facility] [address] [facility] [id number] [address] [place] [address] Apr, Dysuria R30.0 ; Other viral agents as the cause of diseases classified elsewhere B97.89 and Acute upper respiratory infection, unspecified J06.9 [place] [address] [place] [id number] [address] [place] [address] Mar, Diabetes E11.9 ; Urine leuko cytes R82.99 and Psychosis, unspecified psychosis type F29 [place] [address] [facility] [id number] [address] [place] [address] Mar, Diabetes E11.9 [place] [address] [place] [id number] [address] [place] [address] Feb, [place] [address] [facility] [id number] [address] [place] [address] Jan, [place] [address] [facility] [id number] [address] [place] [address] Dec, Psychosis, unspecified psych osis type F29 [place] [address] [facility] [id number] [address] [place] [address] Dec, [facility] [address] [facility] [id number] [address] [place] [address] Dec, [place] [address] [place] [id number] [address] [place] [address] 14 Dec, 2015 Psychosis, unspecified psych osis type F29 [facility] [address] [facility] [id number] [address] [place] [address] 19 Nov, 2015 Schizoaffective disorder, un specified type F25.9 [facility] [address] [facility] [id number] [address] [place] [address] 16 Oct, [address] [facility] [address] [facility] [id number] [address] [place] [address] 14 Oct, 2015 Conjunctivitis of right eye, unspecified conjunctivitis type H10.9 [facility] [address] [facility] [id number] [address] [place] [address] Aug, [facility] [address] [facility] [id number] [address] [place] [id number] Jun, Encounter for dental examina tion Z01.20 [facility] [address] [place] [address] Jun, Diabetes E11.9 and Bipolar a ffect, depressed F31.30 [facility] [address] [place] [id number] [address] [place] [address] Jun, Other bipolar disorder F31.8 9 [facility] [address] [place] [id number] [address] [place] [address] Jun, [facility] [address] [facility] [id number] [address] [place] [address] Apr, [facility] [address] [facility] [id number] [address] [place] [address] Dec, [facility] [address] [facility] [id number] [address] [place] [address] Dec, [facility] [address] [facility] [id number] [address] [place] [address] Sep, [facility] [address] [place] [id number] [address] [place] [address] 14 Jun, 2014 [facility] [address] [id number] [address] [place] [address], [place] [address] Jun, [facility] [address] [id number] [address] [place] [address], [place] [address] Mar, [facility] [address] [id number] [address] [place] [address], [place] [address] Mar, [facility] [address] [id number] [address] [place] [address], [place] [address] Nov, [facility] [address] [id number] [address] [place] [address], [place] [address] Nov, [facility] [address] [id number] [address] [place] [address], [place] [address] Sep, [facility] [address] [id number] [address] [place] [address], [place] [address] Sep, [facility] [address] [id number] [address] [place] [address], [place] [address] Sep, [facility] [address] [id number] [address] [place] [address], [place] [address] Sep, [facility] [address] [id number] [address] [place] [address], [place] [address] Sep, [facility] [address] [id number] [address] [place] [address], [place] [address] Aug, [facility] [address] [id number] [address] [place] [address], [place] [address] Aug, [facility] [address] [id number] [address] [place] [address], [place] [address] Aug, [facility] [address] [id number] [address] [place] [address], [place] [address] Aug, [facility] [address] [id number] [address] [place] [address], [place] [address] Aug, [facility] [address] [id number] [address] [place] [address], [place] [address] Aug, [facility] [address] [id number] [address] [place] [address], [place] [address] July, [facility] [address] [id number] [address] [place] [address], [place] [address] July, [facility] [address] [id number] [address] [place] [address], [place] [address] Jun, [facility] [address] [id number] [address] [place] [address], [place] [address] Jun, [facility] [address] [id number] [address] [place] [address], [place] [address] Jun, [facility] [address] [id number] [address] [place] [address], [place] [address] Jun, [facility] [address] [id number] [address] [place] [address], [place] [address] Jun, [facility] [address] [id number] [address] [place] [address], [place] [address] Jun, [facility] [address] [id number] [address] [place] [address], [place] [address] Jun, [facility] [address] [id number] [address] [place] [address], [place] [address] Jun, [facility] [address] [id number] [address] [place] [address], [place] [address] May, [facility] [address] [id number] [address] [place] [address], [place] [address] May, [facility] [address] [id number] [address] [place] [address], [place] [address] May, [facility] [address] [id number] [address] [place] [address], [place] [address] May, [facility] [address] [id number] [address] [place] [address], [place] [address] May, [facility] [address] [id number] [facility] [place] [address] May, [facility] [address] [id number] [address] [place] [address], [place] [address] May, [facility] [address] [id number] [address] [place] [address], [place] [address] May, [facility] [address] [id number] [address] [place] [address], [place] [address] May, [facility] [address] [id number] [address] [place] [address], [place] [address] Apr, [facility] [address] [id number] [address] [place] [address], [place] [address] Apr, [facility] [address] [id number] [address] [place] [address], [place] [address] Mar, [facility] [address] [id number] [address] [place] [address], [place] [address] Mar, [facility] [address] [id number] [place] [address], [place] [address] Feb, [facility] [address] [id number] [address] [place] [address], [place] [address] Feb, [facility] [address] [id number] [address] [place] [address], [place] [address] Nov, [facility] [address] [id number] [address] [place] [address], [place] [address] Nov, [facility] [address] [id number] [address] [place] [address], [place] [address] Oct, [facility] [address] [id number] [address] [place] [address], [place] [address] Oct, [facility] [address] [id number] [address] [place] [address], [place] [address] Oct, [facility] [address] [id number] [address] [place] [address], [place] [address] Oct, [facility] [address] [id number] [address] [place] [address], [place] [address] Oct, [facility] [address] [id number] [address] [place] [address], [place] [address] Sep, [facility] [address] [id number] [address] [place] [address], [place] [address] Sep, [facility] [address] [id number] [address] [place] [address], [place] [address] Sep, [facility] [address] [id number] [address] [place] [address], [place] [address] Sep, [facility] [address] [id number] [address] [place] [address], [place] [address] Aug, [facility] [address] [id number] [address] [place] [address], [place] [address] Aug, [facility] [address] [id number] [address] [place] [address], [place] [address] Aug, [facility] [address] [id number] [address] [place] [address], [place] [address] Aug, [facility] [address] [id number] [address] [place] [address], [place] [address] Jun, [facility] [address] [id number] [address] [place] [address], [place] [address] Jun, [facility] [address] [id number] [address] [place] [address], [place] [address] Jun, [facility] [address] [id number] [address] [place] [address], [place] [address] Jun, [facility] [address] [id number] [address] [place] [address], [place] [address] May, [facility] [address] [id number] [address] [place] [address], [place] [address] May, [facility] [address] [id number] [address] [place] [address], [place] [address] 18 May, 2012 [facility] [address] [id number] [address] [place] [address], [place] [address] 13 May, 2012 [facility] [address] [id number] [address] [place] [address], [place] [address] 11 May, 2012 [facility] [address] [id number] [address] [place] [address], [place] [address] 04 May, 2012 [facility] [address] [id number] [address] [place] [address], [place] [address] 21 Apr, 2012 [facility] [address] [id number] [address] [place] [address], [place] [address] 20 Apr, 2012 [facility] [address] [id number] [address] [place] [address], [place] [address] 19 Apr, 2012 [facility] [address] [id number] [address] [place] [address], [place] [address] 19 Apr, 2012 [facility] [address] [id number] [address] [place] [address], [place] [address] 19 Apr, 2012 [facility] [address] [id number] [address] [place] [address], [place] [address] Feb, [facility] [address] [id number] [address] [place] [address], [place] [address] Feb, [facility] [address] [id number] [address] [place] [address], [place] [address] 19 Feb, 2012 [facility] [address] [id number] [address] [place] [address], [place] [address] Feb, [facility] [address] [id number] [address] [place] [address], [place] [address] Feb, [facility] [address] [id number] [address] [place] [address], [place] [address] 19 Feb, 2012 [facility] [address] [id number] [address] [place] [address] 19 Feb, 2012 [facility] [address] [id number] [address] [place] [address], [place] [address] 19 Feb, 2012 [facility] [address] [id number] [address] [place] [address], [place] [address] 14 Feb, 2012 [facility] [address] [id number] [address] [place] [address], [place] [address] 14 Feb, 2012 [facility] [address] [id number] [address] [place] [address], [place] [address] 13 Feb, 2012 [facility] [address] [id number] [address] [place] [address], [place] [address] 13 Feb, 2012 [facility] [address] [id number] [address] [place] [address], [place] [address] 12 Feb, 2012 [facility] [address] [id number] [address] [place] [address], [place] [address] 12 Feb, 2012 [facility] [address] [id number] [address] [place] [address], [place] [address] Feb, [facility] [address] [id number] [address] [place] [address], [place] [address] Feb, [facility] [address] [id number] [address] [place] [address], [place] [address] Feb, [facility] [address] [id number] [address] [place] [address], [place] [address] Feb, [facility] [address] [id number] [address] [place] [address], [place] [address] Feb, [facility] [address] [id number] [address] [place] [address], [place] [address] Feb, [facility] [address] [id number] [address] [place] [address], [place] [address] 06 Feb, 2012 [facility] [address] [id number] [address] [place] [address], [place] [address] Feb, [facility] [address] [id number] [address] [place] [address], [place] [address] Feb, [facility] [address] [id number] [address] [place] [address], [place] [address] Feb, [facility] [address] [id number] [address] [place] [address], [place] [address] Feb, [facility] [address] [id number] [address] [place] [address], [place] [address] Feb, [facility] [address] [id number] [address] [place] [address], [place] [address] Jan, [facility] [address] [id number] [address] [place] [address], [place] [address] Jan, [facility] [address] [id number] [address] [place] [address], [place] [address] Dec, [facility] [address] [id number] [address] [place] [address], [place] [address] Dec, [facility] [address] [id number] [address] [place] [address], [place] [address] Dec, [facility] [address] [id number] [address] [place] [address], [place] [address] Dec, [facility] [address] [id number] [address] [place] [address], [place] [address] Nov, [facility] [address] [id number] [address] [place] [address], [place] [address] 12 Nov, 2011 [facility] [address] [id number] [address] [place] [address], [place] [address] Nov, [facility] [address] [id number] [address] [place] [address], [place] [address] Nov, [facility] [address] [id number] [address] [place] [address], [place] [address] Oct, [facility] [address] [id number] [address] [place] [address], [place] [address] Oct, [facility] [address] [id number] [address] [place] [address], [place] [address] Sep, [facility] [address] [id number] [address] [place] [address], [place] [address] Sep, [facility] [address] [id number] [address] [place] [address], [place] [address] Sep, [facility] [address] [id number] [address] [place] [address], [place] [address] Aug, [facility] [address] [id number] [address] [place] [address], [place] [address] Aug, [facility] [address] [id number] [address] [place] [address], [place] [address] 14 Aug, 2011 [facility] [address] [id number] [address] [place] [address], [place] [address] Aug, [facility] [address] [id number] [address] [place] [address], [place] [address] Aug, [facility] [address] [id number] [address] [place] [address], [place] [address] July, [facility] [address] [id number] [address] [place] [address], [place] [address] July, [facility] [address] [id number] [address] [place] [address], [place] [address] July, [facility] [address] [id number] [address] [place] [address], [place] [address] July, [facility] [address] [id number] [address] [place] [address], [place] [address] July, [facility] [address] [id number] [address] [place] [address], [place] [address] Jun, [facility] [address] [id number] [address] [place] [address], [place] [address] May, [facility] [address] [id number] [address] [place] [address], [place] [address] 16 Apr, 2011 [facility] [address] [id number] [address] [place] [address], [place] [address] 13 Apr, 2011 [facility] [address] [id number] [address] [place] [address], [place] [address] 13 Apr, 2011 [facility] [address] [id number] [address] [place] [address], [place] [address] 31 Mar, 2011 [facility] [address] [id number] [address] [place] [address], [place] [address] 31 Mar, 2011 [facility] [address] [id number] [address] [place] [address], [place] [address] 23 Mar, 2011 [facility] [address] [id number] [address] [place] [address], [place] [address] Mar, [facility] [address] [id number] [address] [place] [address], [place] [address] Mar, [facility] [address] [id number] [address] [place] [address], [place] [address] 17 Mar, 2011 [facility] [address] [id number] [address] [place] [address], [place] [address] Mar, [facility] [address] [id number] [address] [place] [address], [place] [address] Mar, [facility] [address] [id number] [address] [place] [address], [place] [address] Feb, [facility] [address] [id number] [address] [place] [address], [place] [address] Feb, [facility] [address] [id number] [address] [place] [address], [place] [address] Feb, [facility] [address] [id number] [address] [place] [address], [place] [address] Feb, [facility] [address] [id number] [address] [place] [address], [place] [address] Feb, [facility] [address] [id number] [address] [place] [address], [place] [address] Jan, [facility] [address] [id number] [address] [place] [address], [place] [address] Jan, [facility] [address] [id number] [address] [place] [address], [place] [address] Jan, [facility] [address] [id number] [address] [place] [address], [place] [address] Jan, [facility] [address] [id number] [address] [place] [address], [place] [address] Dec, [facility] [address] [id number] [address] [place] [address], [place] [address] 14 Dec, 2010 [facility] [address] [id number] [address] [place] [address], [place] [address] Sep, [facility] [address] [id number] [address] [place] [address], [place] [address] July, [facility] [address] [id number] [address] [place] [address], [place] [address] Apr, [facility] [address] [id number] [address] [place] [address] Mar, [facility] [address] [id number] [address] [place] [address], [place] [address] Feb, [facility] [address] [id number] [address] [place] [address] Feb, [facility] [address] [id number] [address] [place] [address], [place] [address] Feb, [facility] [address] [id number] [address] [place] [address], [place] [address] Feb, [facility] [address] [id number] [address] [place] [address], [place] [address] 15 Feb, 2010 [facility] [address] [id number] [address] [place] [address] Feb, [facility] [address] [facility] [id number] [address] [place] [address] Feb, [facility] [address] [facility] [id number] [address] [place] [address] Dec, [facility] [address] [facility] [id number] [address] [place] [address] Jan, [facility] [address] [facility] [id number] [address] [place] [address] Apr, IMMUNIZATIONS No Known Immunizations SOCIAL HISTORY Never Assessed REASON FOR VISIT PLAN OF CARE VITAL SIGNS Height 64 in 2011-10-27 Weight 213 lbs 2011-10-27 Heart Rate 100 bpm 2011-10-27 Respiratory Rate 22 2011-10-27 Blood pressure systolic 146 mmHg 2011-10-27 Blood pressure diastolic 100 mmHg 2011-10-27 MEDICATIONS Unknown Medications RESULTS No Results PROCEDURES [...] 1998 Surgical History cholecystectomy Surgical History colonscopy 2012 Surgical History Pacemaker Hospitalization History Stroke Hospitalization History Surgery Hospitalization History Hyperglycemia 2012 Hospitalization History [facility]/20152015 Hospitalization History Schizophrenia 09/26/16 Hospitalization History AMS, UTI, hyponatremia-[facility] 10/21/16 Hospitalization History stent placed 02/02/17 Hospitalization History stent placed 02/[address] [facility]- Syncope, Dehydration and Hypotension. 06/08/2017 Hospitalization History [facility]- Dehydrated 08/2018
--- OUTSIDE RECORDS SUMMARY | 2019-07-05 08:09 | XMS REPORT ---
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 Name Role Phone ERNESTO NINO Unavailable PROBLEMS Type Condition ICD9-CM Code RMB71-PJ Code Onset Dates Condition S tatus SNOMED Code Problem Coronary artery disease invo lving [place] coronary artery of [place] heart without angina pectoris I25.10 Active 1641 [id number] Problem Bipolar affective disorder, current episode mixed, current episode severity unspecified F31.60 Active 9571746 08 Problem halfway current use of insulin Z79.4 Active 199838469 Problem Chronic idiopathic constipation K59.04 Active 54758752 Problem Age-related incipient cataract of both eyes H25.09 3 Active 919130406 Problem 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 Active 936545687 Problem Essential hypertension I10 Active 80028109 Problem Diabetes E11.9 Active 80925814 Problem Diabetes 1.5, 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 635312043 Problem Slow transit constipation K59.01 Acti ve 62155352 Problem Food allergy Z91.018 Active 8846410 01 Problem Irritable bowel syndrome with both constipation and diarrh ea K58.2 Active 20612501 Problem Irritable bowel syndrome with diarrhea K58.0 Active 948015305 Problem Arthritis of back M47.9 Active 68 161774 Problem Pacemaker Z95.0 Active 397310707 Problem Type 2 diabetes mellitus with diabetic chronic kidney disease E11.22 Active 29369331 Problem Constipation K59.00 Active 8965719 8 Problem CVA (cerebral vascular accident) I63.9 Active 325962802 Problem Psychosis, unspecified psychosis type F29 Active 04066740 Problem Irritable bowel syndrome with both constipation and diarrh ea K58.2 Active 34690471 Problem halfway (current) use of insulin Z79.4 Active 075397961 Problem Chronic kidney disease, stage 3 (moderate) N18.3 Active 613358499 Problem Irritable bowel syndrome with diarrhea K58.0 Active 814908505 ALLERGIES No Information ENCOUNTERS Encounter Location Date Diagnosis [place] [id number] [address] 08 Jun, 2019 [facility] [address] [place] [id number] [address] [place] [address] May, [facility] [address] [address] 23 May, 2019 Diabetes E11.9 [place] [address] [address] 14 May, 2019 Diabetes E11.9 [place] [address] [address] 02 May, 2019 Diabetes E11.9 [place] [address] [address] Feb, Type 2 diabetes mellitus wit h diabetic chronic kidney disease E11.22 ; Chronic kidney disease, stage 3 (moderate) N18.3 ; [employer] (current) use of insulin Z79.4 ; Weight loss R63.4 ; Colon cancer screening Z12.11 ; Irritable bowel syndrome with both constipation and diarrhea K58.2 ; Essential hypertension I10 ; Pacemaker Z95.0 and Food allergy Z91.018 [place] [address] [place] [id number] [address] [place] [address] Jan, Diabetes E11.9 [place] [id number] [place] [address] Jan, [facility] [id number] [address] Dec, Bipolar affective disorder, current epis ode mixed, current episode severity unspecified F31.60 [place] [address] [place] [id number] [address] [place] [address] Dec, [place] [address] [place] [id number] [address] [place] [address] Nov, Diabetes E11.9 [facility] [address] [id number] [address] [place] [address] Oct, [facility] [address] [facility] [id number] [address] [place] [address] Oct, [facility] [address] [facility] [id number] [address] [place] [address] Sep, Generalized abdominal pain R 10.84 ; Slow transit constipation K59.01 and Diabetes E11.9 [facility] [address] [id number] [address] [place] [address] Aug, Viral upper respiratory trac t infection J06.9 [facility] [address] [id number] [address] [place] [address] Aug, [facility] [address] [facility] [id number] [address] [place] [address] Aug, Bipolar affective disorder, current episode mixed, current episode severity unspecified F31.60 [facility] [address] [facility] [id number] [address] [place] [address] Aug, Bipolar affective disorder, current episode mixed, current episode severity unspecified F31.60 [facility] [address] [facility] [id number] [address] [place] [address] Aug, Viral upper respiratory trac t infection J06.9 [facility] [address] [facility] [id number] [address] [place] [address] Aug, [facility] [address] [facility] [id number] [address] [place] [address] Jun, Type 2 diabetes mellitus wit h diabetic cataract E11.36 and halfway current use of insulin Z79.4 [facility] [address] [facility] [id number] [address] [place] [address] May, [facility] [address] [facility] [id number] [address] [place] [address] Apr, [facility] [address] [place] [id number] [address] [place] [address] Apr, Diabetes E11.9 [place] [address] [address] Apr, Bipolar affective disorder, current episode mixed, current episode severity unspecified F31.60 [place] [address] [address] Apr, [facility] [address] [address] Mar, [place] [address] [address] Mar, Psychosis, unspecified psych osis type F29 and Bipolar affective disorder, current episode mixed, current episode severity unspecified F31.60 [place] [address] [address] Mar, [facility] [address] [address] Mar, Low back pain M54.5 and Arth ritis of back M47.9 [place] [address] [address] Mar, [facility] [address] [address] Feb, Abdominal pain R10.9 and Con stipation K59.00 [place] [address] [address] Feb, Vertigo R42 ; Type 2 diabete s mellitus with diabetic cataract E11.36 ; Hyperglycemia R73.9 and Essential hypertension I10 [place] [address] [address] Jan, [place] [address] [address] Dec, [place] [address] [address] Dec, [facility] [address] [id number] [address] [place] [address] Dec, Dizziness R42 and Diabetes 1 .5, 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 [facility] [address] [id number] [address] [place] [address] Dec, [facility] [address] [facility] [id number] [address] [place] [address] Dec, [facility] [address] [id number] [address] [place] [address] Dec, Psychosis, unspecified psych osis type F29 and Bipolar affective disorder, current episode mixed, current episode severity unspecified F31.60 [facility] [address] [facility] [id number] [address] [place] [id number] Dec, [facility] [address] [facility] [id number] [address] [place] [address] Dec, [facility] [address] [facility] [id number] [address] [place] [address] Dec, Type 2 diabetes mellitus wit h diabetic cataract E11.36 ; 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 and Hyperglycemia R73.9 [facility] [address] [facility] [id number] [address] [place] [address] Oct, [facility] [address] [facility] [id number] [address] [place] [address] Oct, [facility] [address] [id number] [address] [place] [phone] Oct, [facility] [address] [facility] [id number] [address] [place] [address] Sep, [facility] [address] [facility] [id number] [address] [place] [address] Aug, Upper respiratory tract infe ction, unspecified type J06.9 ; Chronic idiopathic constipation K59.04 ; Fluid level behind tympanic membrane of both ears H65.93 and Abdominal pain R10.9 [facility] [address] [id number] [address] [place] [address] July, Diabetes E11.9 [facility] [address] [id number] [address] [place] [address] Jun, Dehydration E86.0 ; Diabetes E11.9 and Hyperglycemia R73.9 [place] [address] [id number] [address] [place] [address] Jun, [place] [address] [id number] [address] [place] [address] Jun, Vertigo R42 ; Syncope, unspe cified syncope type R55 ; Diabetes E11.9 and Hyperglycemia R73.9 [place] [address] [id number] [address] [place] [address] May, Psychosis, unspecified psych osis type F29 and Bipolar affective disorder, current episode mixed, current episode severity unspecified F31.60 [place] [address] [facility] [id number] [address] [place] [address] May, [place] [address] [facility] [id number] [address] [place] [address] May, Diabetes E11.9 [facility] [address] [id number] [address] [place] [id number] Apr, Dental examination Z01.20 an d Dental caries K02.9 [place] [address] [id number] [address] [place] [address] Apr, Dental examination Z01.20 an d Dental abscess K04.7 [place] [address] [facility] [id number] [address] [place] [address] Mar, Psychosis, unspecified psych osis type F29 and Bipolar affective disorder, current episode mixed, current episode severity unspecified F31.60 [place] [address] [facility] [id number] [address] [place] [address] Mar, [facility] [address] [facility] [id number] [address] [place] [address] Feb, [facility] [address] [facility] [id number] [address] [place] [address] Feb, Left wrist pain M25.532 [facility] [address] [facility] [id number] [address] [place] [address] Jan, [facility] [address] [facility] [id number] [address] [place] [address] Jan, Psychosis, unspecified psych osis type F29 and Bipolar affective disorder, current episode mixed, current episode severity unspecified F31.60 [place] [address] [place] [id number] [place] [id number] Jan, Diabetes E11.9 [facility] [place] [address] [place] [id number] [place] [address] Jan, Left wrist pain M25.532 [place] [address] [place] [id number] [address] [place] [address] Dec, Psychosis, unspecified psych osis type F29 and Bipolar affective disorder, current episode mixed, current episode severity unspecified F31.60 [place] [address] [place] [id number] [place] [address] Dec, Syncope, unspecified syncope type R55 ; Vertigo R42 ; Diabetes E11.9 ; Psychosis, unspecified psychosis type F29 and Fall, initial encounter W19.XXXA [facility] [address] [facility] [id number] [address] [place] [address] Dec, Diabetes E11.9 ; Neck pain M 54.2 and Vertigo R42 [place] [address] [facility] [id number] [address] [place] [address] Nov, [facility] [address] [facility] [id number] [address] [place] [id number] 08 Nov, 2016 [facility] [address] [place] [id number] [address] [place] [id number] 08 Nov, 2016 [facility] [address] [id number] [address] [place] [id number] 06 Nov, 2016 Diabetes E11.9 [facility] [address] [id number] [address] [place] [id number] 05 Nov, 2016 Diabetes E11.9 [facility] [address] [id number] [address] [place] [phone] Oct, [facility] [address] [id number] [id number] Oct, [facility] [address] [id number] [address] [place] [id number] Oct, [facility] [address] [id number] [address] [place] [address] Oct, Bipolar affective disorder, current episode mixed, current episode severity unspecified F31.60 [facility] [address] [id number] [place] [id number] Sep, [facility] [address] [id number] [address] [place] [address] Sep, Acute maxillary sinusitis, r ecurrence not specified J01.00 [facility] [address] [id number] [address] [place] [id number] Sep, Bipolar affective disorder, current episode mixed, current episode severity unspecified F31.60 [facility] [address] [id number] [address] [place] [id number] Sep, Diabetes E11.9 [facility] [address] [id number] [address] [place] [address] July, Diabetes E11.9 [facility] [address] [id number] [address] [place] [address] July, Diabetes E11.9 [facility] [address] [id number] [address] [place] [id number] Jun, [facility] [address] [id number] [address] [place] [id number] May, Bipolar affective disorder, current episode mixed, current episode severity unspecified F31.60 [facility] [address] [facility] [id number] [address] [place] [id number] May, Acute non-recurrent maxillar y sinusitis J01.00 [facility] [address] [facility] [id number] [address] [place] [address] Apr, Psychosis, unspecified psych osis type F29 and Bipolar affective disorder, current episode mixed, current episode severity unspecified F31.60 [facility] [address] [facility] [id number] [address] [place] [address] Apr, Dysuria R30.0 ; Other viral agents as the cause of diseases classified elsewhere B97.89 and Acute upper respiratory infection, unspecified J06.9 [place] [address] [facility] [id number] [address] [place] [address] Mar, Diabetes E11.9 ; Urine leuko cytes R82.99 and Psychosis, unspecified psychosis type F29 [place] [address] [facility] [id number] [address] [place] [phone] Mar, Diabetes E11.9 [place] [address] [facility] [id number] [address] [place] [phone] Feb, [place] [address] [facility] [id number] [address] [place] [phone] Jan, [place] [address] [facility] [id number] [address] [place] [id number] Dec, Psychosis, unspecified psych osis type F29 [place] [address] [facility] [id number] [address] [place] [phone] Dec, [facility] [address] [facility] [id number] [address] [place] [id number] Dec, [facility] [address] [facility] [id number] [address] [place] [id number] 14 Dec, 2015 Psychosis, unspecified psych osis type F29 [facility] [address] [facility] [id number] [address] [place] [id number] 19 Nov, 2015 Schizoaffective disorder, un specified type F25.9 [facility] [address] [facility] [id number] [address] [place] [id number] 16 Oct, 2015 [facility] [address] [facility] [id number] [address] [place] [id number] 14 Oct, 2015 Conjunctivitis of right eye, unspecified conjunctivitis type H10.9 [facility] [address] [facility] [id number] [address] [place] [id number] 02 Aug, 2015 [facility] [address] [facility] [id number] [address] [place] [id number] Jun, Encounter for dental examina tion Z01.20 [facility] [address] [place] [id number] [address] [place] [id number] Jun, Diabetes E11.9 and Bipolar a ffect, depressed F31.30 [facility] [address] [place] [id number] [address] [place] [id number] Jun, Other bipolar disorder F31.8 9 [facility] [address] [place] [id number] [address] [place] [address] Jun, [facility] [address] [facility] [id number] [address] [place] [phone] Apr, [facility] [address] [facility] [id number] [address] [place] [id number] Dec, [facility] [address] [facility] [id number] [address] [place] [phone] Dec, [facility] [address] [facility] [id number] [address] [place] [phone] Sep, [facility] [address] [facility] [id number] [address] [place] [id number] 14 Jun, 2014 [facility] [address] [id number] [address] [place] [address], [place] [address] Jun, [facility] [address] [id number] [address] [place] [address], [place] [address] Mar, [facility] [address] [id number] [address] [place] [address], [place] [address] Mar, [facility] [address] [id number] [address] [place] [address], [place] [address] Nov, [facility] [address] [id number] [address] [place] [address], [place] [address] Nov, [facility] [address] [id number] [address] [place] [address], [place] [address] Sep, [facility] [address] [id number] [address] [place] [address], [place] [address] Sep, [facility] [address] [id number] [address] [place] [address], [place] [address] Sep, [facility] [address] [id number] [address] [place] [address], [place] [address] Sep, [facility] [address] [id number] [address] [place] [address], [place] [address] Sep, [facility] [address] [id number] [address] [place] [address], [place] [address] Aug, [facility] [address] [id number] [address] [place] [address], [place] [address] Aug, [facility] [address] [id number] [address] [place] [address], [place] [address] Aug, [facility] [address] [id number] [address] [place] [address], [place] [address] Aug, [facility] [address] [id number] [address] [place] [address], [place] [address] Aug, [facility] [address] [id number] [address] [place] [address], [place] [address] Aug, [facility] [address] [id number] [address] [place] [address], [place] [address] July, [facility] [address] [id number] [address] [place] [address], [place] [address] July, [facility] [address] [id number] [address] [place] [address], [place] [address] Jun, [facility] [address] [id number] [address] [place] [address], [place] [address] Jun, [facility] [address] [id number] [address] [place] [address], [place] [address] Jun, [facility] [address] [id number] [address] [place] [address], [place] [address] Jun, [facility] [address] [id number] [address] [place] [address], [place] [address] Jun, [facility] [address] [id number] [address] [place] [address], [place] [address] Jun, [facility] [address] [id number] [address] [place] [address], [place] [address] Jun, [facility] [address] [id number] [address] [place] [address], [place] [address] Jun, [facility] [address] [id number] [address] [place] [address], [place] [address] May, [facility] [address] [id number] [address] [place] [address], [place] [address] May, [facility] [address] [id number] [address] [place] [address], [place] [address] May, [facility] [address] [id number] [address] [place] [address], [place] [address] May, [facility] [address] [id number] [address] [place] [address], [place] [address] May, [facility] [address] [id number] [address] [place] [address], [place] [address] May, [facility] [address] [id number] [address] [place] [address], [place] [address] May, [facility] [address] [id number] [address] [place] [address], [place] [address] May, [facility] [address] [id number] [address] [place] [address], [place] [address] May, [facility] [address] [id number] [address] [place] [address], [place] [address] Apr, [facility] [address] [id number] [address] [place] [address], [place] [address] Apr, [facility] [address] [id number] [address] [place] [address], [place] [address] Mar, [facility] [address] [id number] [address] [place] [address], [place] [address] Mar, [facility] [address] [id number] [address] [place] [address], [place] [address] Feb, [facility] [address] [id number] [address] [place] [address], [place] [address] Feb, [facility] [address] [id number] [address] [place] [address], [place] [address] Nov, [facility] [address] [id number] [address] [place] [address], [place] [address] Nov, [facility] [address] [id number] [address] [place] [address], [place] [address] Oct, [facility] [address] [id number] [address] [place] [address], [place] [address] Oct, [facility] [address] [id number] [address] [place] [address], [place] [address] Oct, [facility] [address] [id number] [address] [place] [address], [place] [address] Oct, [facility] [address] [id number] [address] [place] [address], [place] [address] Oct, [facility] [address] [id number] [address] [place] [address], [place] [address] Sep, [facility] [address] [id number] [address] [place] [address], [place] [address] Sep, [facility] [address] [id number] [address] [place] [address], [place] [address] Sep, [facility] [address] [id number] [address] [place] [address], [place] [address] Sep, [facility] [address] [id number] [address] [place] [address], [place] [address] Aug, [facility] [address] [id number] [address] [place] [address], [place] [address] Aug, [facility] [address] [address] [id number] [address] [place] [address], [place] [address] Aug, [facility] [address] [id number] [address] [place] [address], [place] [address] Aug, [facility] [address] [id number] [address] [place] [address], [place] [address] Jun, [facility] [address] [id number] [address] [place] [address], [place] [address] Jun, [facility] [address] [id number] [address] [place] [address], [place] [address] Jun, [facility] [address] [id number] [address] [place] [address], [place] [address] Jun, [facility] [address] [id number] [address] [place] [address], [place] [address] May, [facility] [address] [id number] [address] [place] [address], [place] [address] May, [facility] [address] [id number] [address] [place] [address], [place] [address] 18 May, 2012 [facility] [address] [id number] [address] [place] [address], [place] [address] 13 May, 2012 [facility] [address] [id number] [address] [place] [address], [place] [address] 11 May, 2012 [facility] [address] [id number] [address] [place] [address], [place] [address] 04 May, 2012 [facility] [address] [id number] [address] [place] [address], [place] [address] 21 Apr, 2012 [facility] [address] [id number] [address] [place] [address], [place] [address] 20 Apr, 2012 [facility] [address] [id number] [address] [place] [address], [place] [address] 19 Apr, 2012 [facility] [address] [id number] [address] [place] [address], [place] [address] 19 Apr, 2012 [facility] [address] [id number] [address] [place] [address], [place] [address] 19 Apr, 2012 [facility] [address] [id number] [address] [place] [address], [place] [address] Feb, [facility] [address] [id number] [address] [place] [address], [place] [address] 20 Feb, 2012 [facility] [address] [id number] [address] [place] [address], [place] [address] Feb, [facility] [address] [id number] [address] [place] [address], [place] [address] Feb, [facility] [address] [id number] [address] [place] [address], [place] [address] Feb, [facility] [address] [id number] [address] [place] [address], [place] [address] 19 Feb, 2012 [facility] [address] [id number] [address] [place] [address], [place] [address] 19 Feb, 2012 [facility] [address] [id number] [address] [place] [address], [place] [address] 19 Feb, 2012 [facility] [address] [id number] [address] [place] [address], [place] [address] 14 Feb, 2012 [facility] [address] [id number] [address] [place] [address], [place] [address] 14 Feb, 2012 [facility] [address] [id number] [address] [place] [address], [place] [address] 13 Feb, 2012 [facility] [address] [id number] [address] [place] [address], [place] [address] 13 Feb, 2012 [facility] [address] [id number] [address] [place] [address], [place] [address] 12 Feb, 2012 [facility] [address] [id number] [address] [place] [address], [place] [address] Feb, [facility] [address] [id number] [address] [place] [address], [place] [address] Feb, [facility] [address] [id number] [address] [place] [address], [place] [address] Feb, [facility] [address] [id number] [address] [place] [address], [place] [address] Feb, [facility] [address] [id number] [address] [place] [address], [place] [address] Feb, [facility] [address] [id number] [address] [place] [address], [place] [address] Feb, [facility] [address] [id number] [address] [place] [address], [place] [address] Feb, [facility] [address] [id number] [address] [place] [address], [place] [address] Feb, [facility] [address] [id number] [address] [place] [address], [place] [address] Feb, [facility] [address] [id number] [address] [place] [address], [place] [address] Feb, [facility] [address] [id number] [address] [place] [address], [place] [address] Feb, [facility] [address] [id number] [address] [place] [address], [place] [address] Feb, [facility] [address] [id number] [address] [place] [address], [place] [address] Feb, [facility] [address] [id number] [address] [place] [address], [place] [address] Jan, [facility] [address] [id number] [address] [place] [address], [place] [address] Jan, [facility] [address] [id number] [address] [place] [address], [place] [address] Dec, [facility] [address] [id number] [address] [place] [address], [place] [address] Dec, [facility] [address] [id number] [address] [place] [address], [place] [address] Dec, [facility] [address] [id number] [address] [place] [address], [place] [address] Dec, [facility] [address] [id number] [address] [place] [address], [place] [address] Nov, [facility] [address] [id number] [address] [place] [address], [place] [address] Nov, [facility] [address] [id number] [address] [place] [address], [place] [address] Nov, [facility] [address] [id number] [address] [place] [address], [place] [address] Nov, [facility] [address] [id number] [address] [place] [address], [place] [address] Oct, [facility] [address] [id number] [address] [place] [address], [place] [address] Oct, [facility] [address] [id number] [address] [place] [address], [place] [address] Sep, [facility] [address] [id number] [address] [place] [address], [place] [address] Sep, [facility] [address] [id number] [address] [place] [address], [place] [address] Sep, [facility] [address] [id number] [address] [place] [address], [place] [address] Aug, [facility] [address] [id number] [address] [place] [address], [place] [address] Aug, [facility] [address] [id number] [address] [place] [address], [place] [address] 14 Aug, 2011 [facility] [address] [id number] [address] [place] [address], [place] [address] Aug, [facility] [address] [id number] [address] [place] [address], [place] [address] Aug, [facility] [address] [id number] [address] [place] [address], [place] [address] July, [facility] [address] [id number] [address] [place] [address], [place] [address] July, [facility] [address] [id number] [address] [place] [address], [place] [address] July, [facility] [address] [id number] [address] [place] [address], [place] [address] July, [facility] [address] [id number] [address] [place] [address], [place] [address] July, [facility] [address] [id number] [address] [place] [address], [place] [address] Jun, [facility] [address] [id number] [address] [place] [address], [place] [address] May, [facility] [address] [id number] [address] [place] [address], [place] [address] 16 Apr, 2011 [facility] [address] [id number] [address] [place] [address], [place] [address] 13 Apr, 2011 [facility] [address] [id number] [address] [place] [address], [place] [address] 13 Apr, 2011 [facility] [address] [id number] [address] [place] [address], [place] [address] 31 Mar, 2011 [facility] [address] [id number] [address] [place] [address], [place] [address] Mar, [facility] [address] [id number] [address] [place] [address], [place] [address] Mar, [facility] [address] [id number] [address] [place] [address], [place] [address] Mar, [facility] [address] [id number] [address] [place] [address], [place] [address] Mar, [facility] [address] [id number] [address] [place] [address], [place] [address] Mar, [facility] [address] [id number] [address] [place] [address], [place] [address] Mar, [facility] [address] [id number] [address] [place] [address], [place] [address] Mar, [facility] [address] [id number] [address] [place] [address], [place] [address] Feb, [facility] [address] [id number] [address] [place] [address], [place] [address] Feb, [facility] [address] [id number] [address] [place] [address], [place] [address] Feb, [facility] [address] [id number] [address] [place] [address], [place] [address] Feb, [facility] [address] [id number] [address] [place] [address], [place] [address] Feb, [facility] [address] [id number] [address] [place] [address], [place] [address] Jan, [facility] [address] [id number] [address] [place] [address], [place] [address] Jan, [facility] [address] [id number] [address] [place] [address], [place] [address] Jan, [facility] [address] [id number] [address] [place] [address], [place] [address] Jan, [facility] [address] [id number] [address] [place] [address], [place] [address] Dec, [facility] [address] [id number] [address] [place] [address], [place] [address] 14 Dec, 2010 [facility] [address] [id number] [address] [place] [address], [place] [address] Sep, [facility] [address] [id number] [address] [place] [address], [place] [address] July, [facility] [address] [id number] [address] [place] [address], [place] [address] Apr, [facility] [address] [id number] [address] [place] [address], [place] [address] Mar, [facility] [address] [id number] [address] [place] [address], [place] [address] Feb, [facility] [address] [id number] [address] [place] [address], [place] [address] Feb, [facility] [address] [id number] [address] [place] [address], [place] [address] Feb, [facility] [address] [id number] [address] [place] [address], [place] [address] Feb, [facility] [address] [id number] [address] [place] [address], [place] [address] 15 Feb, 2010 [facility] [address] [id number] [address] [place] [address] Feb, [facility] [address] [facility] [id number] [address] [place] [address] Feb, [facility] [address] [facility] [id number] [address] [place] [address] Dec, [facility] [address] [facility] [id number] [address] [place] [address] Jan, [facility] [address] [facility] [id number] [address] [place] [address] Apr, IMMUNIZATIONS No Known Immunizations SOCIAL HISTORY Never Assessed REASON FOR VISIT PLAN OF CARE VITAL SIGNS MEDICATIONS Unknown [...] Hospitalization History Hyperglycemia 2012 Hospitalization History [facility] 11/28/2015-12/04/20152015 Hospitalization History Schizophrenia 09/26/16 Hospitalization History AMS, UTI, hyponatremia-[facility] 10/21/16 Hospitalization History stent placed 02/02/17 Hospitalization History stent placed 02/2017 Hospitalization History [facility]- Syncope, Dehydration and Hypotension. 06/08/2017 Hospitalization History [facility]- Dehydrated 08/2018
--- OUTSIDE RECORDS SUMMARY | 2019-07-05 08:10 | XMS REPORT ---
Author Author Melina Jeffery Doctor Organization [facility] Address Unknown Phone Unavailable Care Team Providers Care Dextrine Mixer Name Role Phone Migration, Doctor Unavailable Unavailable PROBLEMS Type Condition ICD9-CM Code WZO22-VY Code Onset Dates Condition S tatus SNOMED Code Problem Coronary artery disease invo [place]ving [place] coronary artery of [place] heart without angina pectoris I25.10 Active 1641 [id number] Problem Bipolar affective disorder, current episode mixed, current episode severity unspecified F31.60 Active 6020933 08 Problem MCFP current use of insulin Z79.4 Active 566766094 Problem Chronic idiopathic constipation K59.04 Active 41740579 Problem Age-related incipient cataract of both eyes H25.09 3 Active 069244235 Problem 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 Active 694936668 Problem Essential hypertension I10 Active 14440452 Problem Diabetes E11.9 Active 90298468 Problem Diabetes 1.5, 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 308512327 Problem Slow transit constipation K59.01 Acti ve 12522422 Problem Food allergy Z91.018 Active 1754813 01 Problem Irritable bowel syndrome with both constipation and diarrh ea K58.2 Active 55247735 Problem Irritable bowel syndrome with diarrhea K58.0 Active 861229585 Problem Arthritis of back M47.9 Active 68 973178 Problem Pacemaker Z95.0 Active 647397504 Problem Type 2 diabetes mellitus with diabetic chronic kidney disease E11.22 Active 67865150 Problem Constipation K59.00 Active 9149522 8 Problem CVA (cerebral vascular accident) I63.9 Active 453835302 Problem Psychosis, unspecified psychosis type F29 Active 24580597 Problem Irritable bowel syndrome with both constipation and diarrh ea K58.2 Active 54409790 Problem 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 Z79.4 Active 729812938 Problem Chronic kidney disease, stage 3 (moderate) N18.3 Active 227418274 Problem Irritable bowel syndrome with diarrhea K58.0 Active 319651262 ALLERGIES No Information ENCOUNTERS Encounter Location Date Diagnosis [facility] [id number] [place] [address] 14 May, 2019 Diabetes E11.9 [place] [address] [address] 02 May, 2019 Diabetes E11.9 [place] [id number] [place] [address] 09 Feb, 2019 Type 2 diabetes mellitus with diabetic c hronic kidney disease E11.22 ; Chronic kidney disease, stage 3 (moderate) N18.3 ; MCFP (current) use of insulin Z79.4 ; Weight loss R63.4 ; Colon cancer screening Z12.11 ; Irritable bowel syndrome with both constipation and diarrhea K58.2 ; Essential hypertension I10 ; Pacemaker Z95.0 and Food allergy Z91.018 [place] [id number] [place] [address] 08 Jan, 2019 Diabetes E11.9 [place] [id number] [place] [address] Jan, [address] [id number] [address] Dec, Bipolar affective disorder, current episode mixed, current episode severity unspecified F31.60 [place] [id number] [place] [address] Dec, [place] [address] [address] Nov, Diabetes E11.9 [place] [id number] [place] [address] Oct, [place] [address] [address] Oct, [place] [address] [address] Sep, Generalized abdominal pain R10.84 ; Slow transit constipation K59.01 and Diabetes E11.9 [facility] [address] [facility] [id number] [address] [place] [address] Aug, Viral upper respiratory trac t infection J06.9 [facility] [id number] [place] [address] Aug, [facility] [address] [address] Aug, Bipolar affective disorder, current epis ode mixed, current episode severity unspecified F31.60 [facility] [id number] [place] [address] Aug, Bipolar affective disorder, current epis ode mixed, current episode severity unspecified F31.60 [facility] [address] [facility] [id number] [address] [place] [address] Aug, Viral upper respiratory trac t infection J06.9 [facility] [address] [address] Aug, [place] [address] [address] Jun, Type 2 diabetes mellitus with diabetic c ataract E11.36 and terminal manager current use of insulin Z79.4 [place] [address] [address] May, [facility] [address] [address] Apr, [facility] [address] [address] Apr, Diabetes E11.9 [facility] [address] [address] Apr, Bipolar affective disorder, current epis ode mixed, current episode severity unspecified F31.60 [facility] [address] [address] Apr, [facility] [address] [address] Mar, [facility] [address] [address] Mar, Psychosis, unspecified psychosis type F2 9 and Bipolar affective disorder, current episode mixed, current episode severity unspecified F31.60 [place] [address] [address] Mar, [facility] [address] [id number] [address] [place] [address] Mar, Low back pain M54.5 and Arth ritis of back M47.9 [place] [address] [address] Mar, [facility] [address] [id number] [address] [place] [address] Feb, Abdominal pain R10.9 and Con stipation K59.00 [place] [address] [address] Feb, Vertigo R42 ; Type 2 diabetes mellitus w ith diabetic cataract E11.36 ; Hyperglycemia R73.9 and Essential hypertension I10 [place] [address] [address] Jan, [place] [address] [address] Dec, [place] [address] [address] Dec, [facility] [address] [facility] [id number] [address] [place] [address] Dec, Dizziness R42 and Diabetes 1 .5, 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 [place] [address] [address] Dec, [place] [address] [address] Dec, [place] [address] [address] Dec, Psychosis, unspecified psychosis type F2 9 and Bipolar affective disorder, current episode mixed, current episode severity unspecified F31.60 [place] [address] [address] Dec, [facility] [address] [address] Dec, [facility] [address] [address] Dec, Type 2 diabetes mellitus with diabetic c ataract E11.36 ; [facility]FP current use of insulin Z79.4 and Hyperglycemia R73.9 [place] [address] [address] Oct, [place] [address] [address] Oct, [place] [address] [address] Oct, [place] [address] [address] Sep, [facility] [address] [facility] [id number] [place] [address] Aug, Upper respiratory tract infe ction, unspecified type J06.9 ; Chronic idiopathic constipation K59.04 ; Fluid level behind tympanic membrane of both ears H65.93 and Abdominal pain R10.9 [place] [address] [address] July, Diabetes E11.9 [place] [address] [address] Jun, Dehydration E86.0 ; Diabetes E11.9 and H yperglycemia R73.9 [place] [address] [address] Jun, [place] [address] [address] Jun, Vertigo R42 ; Syncope, unspecified synco pe type R55 ; Diabetes E11.9 and Hyperglycemia R73.9 [place] [address] [address] May, Psychosis, unspecified psychosis type F2 9 and Bipolar affective disorder, current episode mixed, current episode severity unspecified F31.60 [facility] [address] [address] May, [facility] [id number] [place] [address] May, Diabetes E11.9 [facility] [address] [facility] [place] [id number] Apr, Dental examination Z01.20 and Dental car ies K02.9 [place] [address] [address] Apr, Dental examination Z01.20 and Dental abs cess K04.7 [place] [address] [address] Mar, Psychosis, unspecified psychosis type F2 9 and Bipolar affective disorder, current episode mixed, current episode severity unspecified F31.60 [facility] [address] [address] Mar, [facility] [address] [address] Feb, [place] [address] [address] Feb, Left wrist pain M25.532 [place] [address] [address] Jan, [facility] [address] [address] Jan, Psychosis, unspecified psychosis type F2 9 and Bipolar affective disorder, current episode mixed, current episode severity unspecified F31.60 [facility] [address] [address] Jan, Diabetes E11.9 [facility] [address] [facility] [id number] [address] [place] [address] Jan, Left wrist pain M25.532 [facility] [address] [address] Dec, Psychosis, unspecified psychosis type F2 9 and Bipolar affective disorder, current episode mixed, current episode severity unspecified F31.60 [facility] [address] [address] Dec, Syncope, unspecified syncope type R55 ; Vertigo R42 ; Diabetes E11.9 ; Psychosis, unspecified psychosis type F29 and Fall, initial encounter W19.XXXA [facility] [address] [address] Dec, Diabetes E11.9 ; Neck pain M54.2 and Fela tigo R42 [facility] [address] [address] Nov, [facility] [address] [facility] [id number] [place] [address] 08 Nov, 2016 [facility] [address] [address] 08 Nov, 2016 [facility] [address] [address] 06 Nov, 2016 Diabetes E11.9 [facility] [address] [address] 05 Nov, 2016 Diabetes E11.9 [facility] [address] [address] Oct, [facility] [id number] [place] [id number] Oct, [facility] [address] [address] Oct, [facility] [address] [address] Oct, Bipolar affective disorder, current epis ode mixed, current episode severity unspecified F31.60 [facility] [address] [id number] [id number] Sep, [facility] [address] [id number] [place] [address] Sep, Bipolar affective disorder, current epis ode mixed, current episode severity unspecified F31.60 [facility] [address] [facility] [id number] [address] [place] [address] Sep, Acute maxillary sinusitis, r ecurrence not specified J01.00 [place] [address] [address] Sep, Diabetes E11.9 [place] [address] [address] July, Diabetes E11.9 [place] [address] [address] July, Diabetes E11.9 [place] [address] [address] Jun, [place] [address] [address] May, Bipolar affective disorder, current epis ode mixed, current episode severity unspecified F31.60 [facility] [address] [facility] [id number] [address] [place] [address] May, Acute non-recurrent maxillar y sinusitis J01.00 [place] [id number] [place] [address] 10 Apr, 2016 Psychosis, unspecified psychosis type F2 9 and Bipolar affective disorder, current episode mixed, current episode severity unspecified F31.60 [facility] [address] [facility] [id number] [address] [place] [address] Apr, Dysuria R30.0 ; Other viral agents as the cause of diseases classified elsewhere B97.89 and Acute upper respiratory infection, unspecified J06.9 [place] [address] [id number] [place] [address] Mar, Diabetes E11.9 ; Urine leukocytes R82.99 and Psychosis, unspecified psychosis type F29 [facility] [address] [address] Mar, Diabetes E11.9 [facility] [address] [address] Feb, [facility] [address] [address] Jan, [facility] [address] [address] Dec, Psychosis, unspecified psychosis type F2 9 [place] [address] [address] Dec, [facility] [address] [facility] [id number] [address] [place] [address] Dec, [place] [address] [address] Dec, Psychosis, unspecified psychosis type F2 9 [place] [address] [address] Nov, Schizoaffective disorder, unspecified ty pe F25.9 [place] [address] [address] Oct, [facility] [address] [facility] [id number] [address] [place] [address] Oct, Conjunctivitis of right eye, unspecified conjunctivitis type H10.9 [place] [address] [address] Aug, [facility] [address] [facility] [place] [id number] Jun, Encounter for dental examination Z01.20 [place] [address] [address] Jun, Diabetes E11.9 and Bipolar affect, depre ssed F31.30 [place] [address] [address] Jun, Other bipolar disorder F31.89 [facility] [address] [id number] [place] [address] Jun, [facility] [address] [id number] [place] [address] Apr, [facility] [address] [id number] [place] [address] Dec, [facility] [address] [id number] [place] [address] Dec, [facility] [address] [id number] [place] [address] Sep, [facility] [address] [id number] [place] [address] Jun, [facility] [address] [id number] [place] [address] Jun, [facility] [address] [id number] [place] [address] Mar, [facility] [address] [id number] [place] [address] Mar, [facility] [address] [id number] [place] [address] Nov, [facility] [address] [id number] [place] [address] Nov, [facility] [address] [id number] [place] [address] Sep, [facility] [address] [id number] [place] [address] Sep, [facility] [address] [id number] [place] [address] Sep, [facility] [address] [id number] [place] [address] Sep, [facility] [address] [id number] [place] [address] Sep, [facility] [address] [id number] [place] [address] Aug, [facility] [address] [id number] [place] [address] Aug, [facility] [address] [id number] [place] [address] Aug, [facility] [address] [id number] [place] [address] Aug, [facility] [address] [id number] [place] [address] Aug, [facility] [address] [id number] [place] [address] Aug, [facility] [address] [id number] [place] [address] July, [facility] [address] [id number] [place] [address] July, [facility] [address] [id number] [place] [address] Jun, [facility] [address] [id number] [place] [address] Jun, [facility] [address] [id number] [place] [address] Jun, [facility] [address] [id number] [place] [address] Jun, [facility] [address] [id number] [place] [address] Jun, [facility] [address] [id number] [place] [address] Jun, [facility] [address] [id number] [place] [address] Jun, [facility] [address] [id number] [place] [address] Jun, [facility] [address] [id number] [place] [address] May, [facility] [address] [id number] [place] [address] May, [facility] [address] [id number] [place] [address] May, [facility] [address] [id number] [place] [address] May, [facility] [address] [id number] [place] [address] May, [facility] [address] [facility] [id number] [place] [address] May, [facility] [address] [id number] [place] [address] May, [facility] [address] [id number] [place] [address] May, [facility] [address] [id number] [place] [address] May, [facility] [address] [id number] [place] [address] Apr, [facility] [address] [id number] [place] [address] Apr, [facility] [address] [id number] [place] [address] Mar, [facility] [address] [id number] [place] [address] Mar, [facility] [address] [id number] [place] [address] Feb, [facility] [address] [id number] [place] [address] Feb, [facility] [address] [id number] [place] [address] Nov, [facility] [address] [id number] [place] [address] Nov, [facility] [address] [id number] [facility] [place] [address] Oct, [facility] [address] [facility] [id number] [facility] [place] [address] Oct, [facility] [address] [facility] [id number] [place] [address] Oct, [facility] [address] [id number] [place] [address] Oct, [facility] [address] [id number] [place] [address] Oct, [facility] [address] [facility] [id number] [place] [address] Sep, [facility] [address] [id number] [place] [address] Sep, [facility] [address] [id number] [place] [address] Sep, [facility] [address] [id number] [place] [address] Sep, [facility] [address] [id number] [place] [address] Aug, [facility] [address] [id number] [place] [address] Aug, [facility] [address] [id number] [place] [address] Aug, [facility] [address] [id number] [place] [address] Aug, [facility] [address] [id number] [place] [address] Jun, [facility] [address] [id number] [place] [address] 18 Jun, 2012 [facility] [address] [id number] [place] [address] Jun, [facility] [address] [id number] [place] [address] Jun, [facility] [address] [id number] [place] [address] 21 May, 2012 [facility] [address] [id number] [place] [address] 18 May, 2012 [facility] [address] [id number] [place] [address] 18 May, 2012 [facility] [address] [id number] [place] [address] 13 May, 2012 [facility] [address] [id number] [place] [address] 11 May, 2012 [facility] [address] [id number] [place] [address] 04 May, 2012 [facility] [address] [id number] [place] [address] 21 Apr, 2012 [facility] [address] [id number] [place] [address] 20 Apr, 2012 [facility] [address] [id number] [place] [address] Apr, [facility] [address] [id number] [place] [address] Apr, [facility] [address] [id number] [place] [address] Apr, [facility] [address] [id number] [place] [address] Feb, [facility] [address] [id number] [place] [address] Feb, [facility] [address] [id number] [place] [address] Feb, [facility] [address] [id number] [place] [address] Feb, [facility] [address] [id number] [place] [address] Feb, [facility] [address] [id number] [place] [address] Feb, [facility] [address] [id number] [place] [address] Feb, [facility] [address] [id number] [place] [address] Feb, [facility] [address] [id number] [place] [address] 14 Feb, 2012 [facility] [address] [id number] [place] [address] 14 Feb, 2012 [facility] [address] [id number] [place] [address] Feb, [facility] [address] [id number] [place] [address] Feb, [facility] [address] [id number] [place] [address] Feb, [facility] [address] [id number] [place] [address] Feb, [facility] [address] [id number] [place] [address] Feb, [facility] [address] [id number] [place] [address] Feb, [facility] [address] [id number] [place] [address] Feb, [facility] [address] [id number] [place] [address] Feb, [facility] [address] [id number] [place] [address] Feb, [facility] [address] [id number] [place] [address] Feb, [facility] [address] [id number] [place] [address] Feb, [facility] [address] [id number] [place] [address] Feb, [facility] [address] [id number] [place] [address] Feb, [facility] [address] [id number] [place] [address] Feb, [facility] [address] [id number] [place] [address] Feb, [facility] [address] [id number] [place] [address] Feb, [facility] [address] [id number] [place] [address] Jan, [facility] [address] [id number] [place] [address] Jan, [facility] [address] [id number] [place] [address] Dec, [facility] [address] [id number] [place] [address] Dec, [facility] [address] [id number] [place] [address] Dec, [facility] [address] [id number] [place] [address] Dec, [facility] [address] [id number] [place] [address] Nov, [facility] [address] [id number] [place] [address] Nov, [facility] [address] [id number] [place] [address] Nov, [facility] [address] [id number] [place] [address] Nov, [facility] [address] [id number] [place] [address] Oct, [facility] [address] [id number] [place] [address] Oct, [facility] [address] [id number] [place] [address] Sep, [facility] [address] [id number] [place] [address] 17 Sep, 2011 [facility] [address] [id number] [place] [address] Sep, [facility] [address] [id number] [place] [address] Aug, [facility] [address] [id number] [place] [address] Aug, [facility] [address] [id number] [place] [address] 14 Aug, 2011 [facility] [address] [id number] [place] [address] Aug, [facility] [address] [id number] [place] [address] Aug, [facility] [address] [id number] [place] [address] July, [facility] [address] [id number] [place] [address] July, [facility] [address] [id number] [place] [address] July, [facility] [address] [id number] [place] [address] July, [facility] [address] [id number] [place] [address] July, [facility] [address] [id number] [place] [address] Jun, [facility] [address] [id number] [place] [address] May, [facility] [address] [id number] [place] [address] 16 Apr, 2011 [facility] [address] [id number] [place] [address] Apr, [facility] [address] [id number] [place] [address] Apr, [facility] [address] [facility] [id number] [place] [address] Mar, [facility] [address] [id number] [place] [address] Mar, [facility] [address] [id number] [place] [address] Mar, [facility] [address] [id number] [place] [address] Mar, [facility] [address] [facility] [id number] [place] [address] Mar, [facility] [address] [id number] [place] [address] Mar, [facility] [address] [id number] [place] [address] Mar, [facility] [address] [id number] [place] [address] Mar, [facility] [address] [id number] [place] [address] Feb, [facility] [address] [id number] [place] [address] Feb, [facility] [address] [id number] [place] [address] Feb, [facility] [address] [id number] [place] [address] Feb, [facility] [address] [id number] [place] [address] Feb, [facility] [address] [id number] [place] [address] Jan, [facility] [address] [id number] [place] [address] Jan, [facility] [address] [id number] [place] [address] Jan, [facility] [address] [id number] [place] [address] 03 Jan, 2011 [facility] [address] [id number] [place] [address] 14 Dec, 2010 [facility] [address] [id number] [place] [address] 14 Dec, 2010 [facility] [address] [id number] [place] [address] 13 Sep, 2010 [facility] [address] [id number] [place] [address] July, [facility] [address] [id number] [place] [address] 11 Apr, 2010 [facility] [address] [id number] [place] [address] 20 Mar, 2010 [facility] [address] [id number] [place] [address] 28 Feb, 2010 [facility] [address] [id number] [place] [address] 20 Feb, 2010 [facility] [address] [id number] [place] [address] Feb, [facility] [address] [id number] [place] [address] Feb, [facility] [address] [id number] [place] [address] 15 Feb, 2010 [facility] [address] [id number] [place] [address] Feb, [facility] [address] [id number] [place] [address] Feb, [facility] [address] [id number] [place] [address] 25 Dec, 2009 [facility] [address] [id number] [place] [address] Jan, [facility] [address] [id number] [place] [address] 14 Apr, 2008 IMMUNIZATIONS No Known Immunizations [...] Hospitalization History Hyperglycemia 2012 Hospitalization History [facility] 11/28/2015-12/04/20152015 Hospitalization History Schizophrenia 09/26/16 Hospitalization History AMS, UTI, hyponatremia-[facility] 10/21/16 Hospitalization History stent placed 02/02/17 Hospitalization History stent placed 02/2017 Hospitalization History [facility]- Syncope, Dehydration and Hypotension. 06/08/2017 Hospitalization History [facility]- Dehydrated 08/2018
--- OUTSIDE RECORDS SUMMARY | 2019-07-05 08:10 | XMS REPORT ---
Author Author Melina CALDERON Organization 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.10 Active 1641 [id number] Problem Bipolar affective disorder, current episode mixed, current episode severity unspecified F31.60 Active 7544333 08 Problem correction current use of insulin Z79.4 Active 336921964 Problem Chronic idiopathic constipation K59.04 Active 54189361 Problem Age-related incipient cataract of both eyes H25.09 3 Active 196688710 Problem 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 Active 383406514 Problem Essential hypertension I10 Active 43431584 Problem Diabetes E11.9 Active 11313208 Problem Diabetes 1.5, 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 343105233 Problem Slow transit constipation K59.01 Acti ve 46124945 Problem Food allergy Z91.018 Active 7210496 01 Problem Irritable bowel syndrome with both constipation and diarrh ea K58.2 Active 92394087 Problem Irritable bowel syndrome with diarrhea K58.0 Active 712130448 Problem Arthritis of back M47.9 Active 68 439865 Problem Pacemaker Z95.0 Active 318332707 Problem Type 2 diabetes mellitus with diabetic chronic kidney disease E11.22 Active 58129771 Problem Constipation K59.00 Active 5052418 8 Problem CVA (cerebral vascular accident) I63.9 Active 892273994 Problem Psychosis, unspecified psychosis type F29 Active 15246637 Problem Irritable bowel syndrome with both constipation and diarrh ea K58.2 Active 73086792 Problem correction (current) use of insulin Z79.4 Active 855464866 Problem Chronic kidney disease, stage 3 (moderate) N18.3 Active 606668025 Problem Irritable bowel syndrome with diarrhea K58.0 Active 088309064 ALLERGIES No Information ENCOUNTERS Encounter Location Date Diagnosis [place] [address] [address] May, [place] [address] [address] May, [place] [address] [address] 23 May, 2019 Diabetes E11.9 [place] [address] [address] 14 May, 2019 Diabetes E11.9 [place] [address] [address] 02 May, 2019 Diabetes E11.9 [place] [address] [address] Feb, Type 2 diabetes mellitus with diabetic c hronic kidney disease E11.22 ; Chronic kidney disease, stage 3 (moderate) N18.3 ; 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 ; Weight loss R63.4 ; Colon cancer screening Z12.11 ; Irritable bowel syndrome with both constipation and diarrhea K58.2 ; Essential hypertension I10 ; Pacemaker Z95.0 and Food allergy Z91.018 [place] [address] [address] Jan, Diabetes E11.9 [place] [address] [place] [id number] [place] [address] Jan, [address] [id number] [address] Dec, Bipolar affective disorder, current episode mixed, current episode severity unspecified F31.60 [place] [address] [address] Dec, [place] [address] [address] Nov, Diabetes E11.9 [place] [address] [address] Oct, [facility] [address] [address] Oct, [facility] [address] [address] Sep, Generalized abdominal pain R10.84 ; Slow transit constipation K59.01 and Diabetes E11.9 [facility] [address] [facility] [id number] [address] [place] [address] Aug, Viral upper respiratory trac t infection J06.9 [facility] [address] [address] Aug, [place] [address] [address] Aug, Bipolar affective disorder, current epis ode mixed, current episode severity unspecified F31.60 [place] [address] [address] Aug, Bipolar affective disorder, current epis ode mixed, current episode severity unspecified F31.60 [facility] [address] [facility] [id number] [place] [address] Aug, Viral upper respiratory trac t infection J06.9 [place] [address] [address] Aug, [place] [address] [address] Jun, Type 2 diabetes mellitus with diabetic c ataract E11.36 and correction current use of insulin Z79.4 [place] [address] [address] May, [place] [address] [address] Apr, [place] [address] [address] Apr, Diabetes E11.9 [place] [address] [address] Apr, Bipolar affective disorder, current epis ode mixed, current episode severity unspecified F31.60 [place] [address] [address] Apr, [place] [address] [address] Mar, [place] [address] [address] Mar, Psychosis, unspecified psychosis type F2 9 and Bipolar affective disorder, current episode mixed, current episode severity unspecified F31.60 [place] [address] [address] Mar, [facility] [address] [place] [address] Mar, Low back pain M54.5 and Arth ritis of back M47.9 [place] [address] [address] Mar, [facility] N [place] [id number] [address] [place] [address] Feb, Abdominal pain R10.9 and Con stipation K59.00 [place] [address] [address] Feb, Vertigo R42 ; Type 2 diabetes mellitus w ith diabetic cataract E11.36 ; Hyperglycemia R73.9 and Essential hypertension I10 [place] [address] [address] Jan, [place] [address] [address] Dec, [place] [address] [address] Dec, [facility] [address] [facility] [id number] [address] [place] [address] Dec, Dizziness R42 and Diabetes 1 .5, 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 [facility] [address] [address] Dec, [facility] [address] [address] Dec, 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 [address] [address] July, Diabetes E11.9 [facility] [address] [address] Jun, Dehydration E86.0 ; Diabetes E11.9 and H yperglycemia R73.9 [place] [address] [address] Jun, [place] [address] [address] Jun, Vertigo R42 ; Syncope, unspecified synco pe type R55 ; Diabetes E11.9 and Hyperglycemia R73.9 [place] [address] [address] May, Psychosis, unspecified psychosis type F2 9 and Bipolar affective disorder, current episode mixed, current episode severity unspecified F31.60 [place] [address] [address] May, [place] [address] [address] May, Diabetes E11.9 [facility] [address] [id number] Apr, Dental examination Z01.20 and Dental car ies K02.9 [place] [address] [address] Apr, Dental examination Z01.20 and Dental abs cess K04.7 [place] [address] [address] Mar, Psychosis, unspecified psychosis type F2 9 and Bipolar affective disorder, current episode mixed, current episode severity unspecified F31.60 [place] [address] [address] Mar, [place] [address] [address] Feb, [place] [address] [address] Feb, Left wrist pain M25.532 [place] [address] [address] Jan, [facility] [address] [address] Jan, Psychosis, unspecified psychosis type F2 9 and Bipolar affective disorder, current episode mixed, current episode severity unspecified F31.60 [facility] [address] [address] Jan, Diabetes E11.9 [facility] [address] [place] [id number] [address] [place] [address] Jan, Left wrist pain M25.532 [facility] [address] [address] Dec, Psychosis, unspecified psychosis type F2 9 and Bipolar affective disorder, current episode mixed, current episode severity unspecified F31.60 [place] [address] [address] Dec, Syncope, unspecified syncope type R55 ; Vertigo R42 ; Diabetes E11.9 ; Psychosis, unspecified psychosis type F29 and Fall, initial encounter W19.XXXA [facility] [address] [address] Dec, Diabetes E11.9 ; Neck pain M54.2 and Fela tigo R42 [place] [address] [place] [id number] [place] [address] Nov, [facility] [address] [place] [id number] [address] [place] [address] 08 Nov, 2016 [facility] [address] [address] 08 Nov, 2016 [place] [address] [place] [id number] [place] [address] 06 Nov, [address] [facility] [address] [place] [id number] [place] [address] 05 Nov, [address] [facility] [address] [place] [id number] [place] [address] Oct, [facility] [id number] [id number] [place], [facility] [address] [place] [id number] [place] [address] Oct, [facility] [address] [place] [id number] [place] [address] Oct, Bipolar affective disorder, current epis ode mixed, current episode severity unspecified F31.60 [facility] [address] [id number] [address] Sep, [facility] [address] [place] [id number] [place] [address] Sep, Bipolar affective disorder, current epis ode mixed, current episode severity unspecified F31.60 [facility] [address] [facility] [id number] [address] [place] [address] Sep, Acute maxillary sinusitis, r ecurrence not specified J01.00 [facility] [address] [place] [id number] [place] [address] Sep, Diabetes E11.9 [place] [address] [place] [id number] [place] [address] July, Diabetes E11.9 [facility] [address] [address] July, Diabetes E11.9 [place] [address] [place] [id number] [place] [address] Jun, [facility] [address] [address] May, Bipolar affective disorder, current epis ode mixed, current episode severity unspecified F31.60 [facility] [address] [facility] [id number] [address] [place] [address] May, Acute non-recurrent maxillar y sinusitis J01.00 [facility] [address] [facility] [place] [address] 10 Apr, 2016 Psychosis, unspecified psychosis type F2 9 and Bipolar affective disorder, current episode mixed, current episode severity unspecified F31.60 [facility] [address] [place] [id number] [address] [place] [address] Apr, Dysuria R30.0 ; Other viral agents as the cause of diseases classified elsewhere B97.89 and Acute upper respiratory infection, unspecified J06.9 [place] [address] [address] Mar, Diabetes E11.9 ; Urine leukocytes R82.99 and Psychosis, unspecified psychosis type F29 [place] [address] [address] Mar, Diabetes E11.9 [place] [address] [address] Feb, [place] [address] [address] Jan, [place] [address] [address] Dec, Psychosis, unspecified psychosis type F2 9 [place] [address] [address] Dec, [facility] [address] [place] [id number] [address] [place] [address] Dec, [place] [address] [address] Dec, Psychosis, unspecified psychosis type F2 9 [place] [address] [address] Nov, Schizoaffective disorder, unspecified ty pe F25.9 [place] [address] [address] Oct, [facility] [address] [place] [id number] [address] [place] [address] Oct, Conjunctivitis of right eye, unspecified conjunctivitis type H10.9 [place] [address] [place] [address] Aug, [facility] [address] [facility] [place] [id number] Jun, Encounter for dental examination Z01.20 [facility] [address] [place] [id number] [place] [address] Jun, Diabetes E11.9 and Bipolar affect, depre ssed F31.30 [facility] [address] [place] [id number] [place] [address] Jun, Other bipolar disorder F31.89 [facility] [address] [address] Jun, [facility] [address] [place] [id number] [place] [address] Apr, [facility] [address] [address] Dec, [facility] [address] [place] [id number] [place] [address] Dec, [facility] [address] [place] [id number] [place] [address] Sep, [facility] [address] [place] [id number] [place] [address] Jun, [facility] [address] [place] [id number] [place] [address] Jun, [facility] [address] [place] [id number] [place] [address] Mar, [facility] [address] [place] [id number] [place] [address] Mar, [facility] [address] [address] Nov, [facility] [address] [place] [id number] [place] [address] Nov, [facility] [address] [address] Sep, [facility] [address] [facility] [id number] [place] [address] Sep, [facility] [address] [id number] [place] [address] Sep, [facility] [address] [id number] [place] [address] Sep, [facility] [address] [id number] [place] [address] Sep, [facility] [address] [id number] [place] [address] Aug, [facility] [address] [id number] [place] [address] Aug, [facility] [address] [id number] [place] [address] Aug, [facility] [address] [id number] [place] [address] Aug, [facility] [address] [id number] [place] [address] Aug, [facility] [address] [id number] [place] [address] Aug, [facility] [address] [id number] [place] [address] July, [facility] [address] [id number] [place] [address] July, [facility] [address] [id number] [place] [address] Jun, [facility] [address] [id number] [place] [address] Jun, [facility] [address] [id number] [place] [address] Jun, [facility] [address] [id number] [place] [address] Jun, [facility] [address] [id number] [place] [address] Jun, [facility] [address] [facility] [id number] [facility] [place] [address] Jun, [facility] [address] [facility] [id number] [facility] [place] [address] Jun, [facility] [address] [facility] [id number] [place] [address] Jun, [facility] [address] [id number] [place] [address] May, [facility] [address] [facility] [id number] [facility] [place] [address] May, [facility] [address] [id number] [place] [address] May, [facility] [address] [id number] [place] [address] May, [facility] [address] [id number] [place] [address] May, [facility] [address] [facility] [id number] [place] [address] May, [facility] [address] [id number] [place] [address] May, [facility] [address] [id number] [place] [address] May, [facility] [address] [id number] [place] [address] May, [facility] [address] [facility] [id number] [place] [address] Apr, [facility] [address] [facility] [id number] [place] [address] Apr, [facility] [address] [id number] [place] [address] Mar, [facility] [address] [id number] [place] [address] Mar, [facility] [address] [id number] [place] [address] Feb, [facility] [address] [facility] [id number] [place] [address] Feb, [facility] [address] [id number] [place] [address] Nov, [facility] [address] [id number] [place] [address] Nov, [facility] [address] [id number] [place] [address] Oct, [facility] [address] [id number] [place] [address] Oct, [facility] [address] [id number] [place] [address] Oct, [facility] [address] [id number] [place] [address] Oct, [facility] [address] [id number] [place] [address] Oct, [facility] [address] [id number] [place] [address] Sep, [facility] [address] [id number] [place] [address] Sep, [facility] [address] [id number] [place] [address] Sep, [facility] [address] [id number] [place] [address] Sep, [facility] [address] [id number] [place] [address] Aug, [facility] [address] [id number] [place] [address] Aug, [facility] [address] [id number] [place] [address] Aug, [facility] [address] [id number] [place] [address] Aug, [facility] [address] [id number] [place] [address] 19 Jun, 2012 [facility] [address] [id number] [place] [address] 18 Jun, 2012 [facility] [address] [id number] [place] [address] 17 Jun, 2012 [facility] [address] [id number] [place] [address] 17 Jun, 2012 [facility] [address] [id number] [place] [address] 21 May, 2012 [facility] [address] [id number] [place] [address] 18 May, 2012 [facility] [address] [id number] [place] [address] 18 May, 2012 [facility] [address] [id number] [place] [address] 13 May, 2012 [facility] [address] [id number] [place] [address] 11 May, 2012 [facility] [address] [id number] [place] [address] 04 May, 2012 [facility] [address] [id number] [place] [address] 21 Apr, 2012 [facility] [address] [id number] [place] [address] 20 Apr, 2012 [facility] [address] [id number] [place] [address] Apr, [facility] [address] [id number] [place] [address] Apr, [facility] [address] [id number] [place] [address] Apr, [facility] [address] [id number] [place] [address] Feb, [facility] [address] [id number] [place] [address] 20 Feb, 2012 [facility] [address] [facility] [id number] [place] [address] Feb, [facility] [address] [id number] [place] [address] Feb, [facility] [address] [id number] [place] [address] Feb, [facility] [address] [id number] [place] [address] Feb, [facility] [address] [id number] [place] [address] Feb, [facility] [address] [facility] [id number] [place] [address] Feb, [facility] [id number] [place] [address] 14 Feb, 2012 [facility] [id number] [place] [address] 14 Feb, 2012 [facility] [id number] [place] [address] Feb, [facility] [id number] [place] [address] Feb, [facility] [id number] [place] [address] 12 Feb, 2012 [facility] [id number] [place] [address] Feb, [facility] [id number] [place] [address] Feb, [facility] [id number] [place] [address] Feb, [facility] [id number] [place] [address] Feb, [facility] [id number] [place] [address] Feb, [facility] [id number] [place] [address] Feb, [facility] [id number] [place] [address] Feb, [facility] [id number] [place] [address] Feb, [facility] [id number] [place] [address] Feb, [facility] [id number] [place] [address] Feb, [facility] [id number] [place] [address] Feb, [facility] [id number] [place] [address] Feb, [facility] [id number] [place] [address] Feb, [facility] [id number] [place] [address] Jan, [facility] [id number] [place] [address] Jan, [facility] [id number] [place] [address] Dec, [facility] [id number] [place] [address] Dec, [facility] [id number] [place] [address] Dec, [facility] [id number] [place] [address] Dec, [facility] [id number] [place] [address] Nov, [facility] [id number] [place] [address] Nov, [facility] [id number] [place] [address] Nov, [facility] [id number] [place] [address] Nov, [facility] [id number] [place] [address] Oct, [facility] [id number] [place] [address] Oct, [facility] [id number] [place] [address] Sep, [facility] [address] [facility] [id number] [place] [address] Sep, [facility] [id number] [place] [address] Sep, [facility] [id number] [place] [address] Aug, [facility] [id number] [place] [address] Aug, [facility] [id number] [place] [address] Aug, [facility] [id number] [place] [address] Aug, [facility] [id number] [place] [address] Aug, [facility] [id number] [place] [address] July, [facility] [id number] [place] [address] July, [facility] [id number] [place] [address] July, [facility] [id number] [place] [address] July, [facility] [id number] [place] [address] July, [facility] [id number] [place] [address] Jun, [facility] [address] [facility] [id number] [place] [address] May, [facility] [id number] [place] [address] Apr, [facility] [id number] [place] [address] Apr, [facility] [id number] [place] [address] Apr, [facility] [id number] [place] [address] Mar, [facility] [id number] [place] [address] Mar, [facility] [id number] [place] [address] Mar, [facility] [id number] [place] [address] Mar, [facility] [id number] [place] [address] Mar, [facility] [id number] [place] [address] Mar, [facility] [id number] [place] [address] Mar, [facility] [id number] [place] [address] Mar, [facility] [id number] [place] [address] Feb, [facility] [id number] [place] [address] Feb, [facility] [id number] [place] [address] Feb, [facility] [id number] [place] [address] Feb, [facility] [id number] [place] [address] Feb, [facility] [id number] [place] [address] Jan, [facility] [id number] [place] [address] Jan, [facility] [id number] [place] [address] Jan, [facility] [id number] [place] [address] Jan, [facility] [id number] [place] [address] 14 Dec, 2010 [facility] [id number] [place] [address] Dec, [facility] [id number] [place] [address] Sep, [facility] [id number] [place] [address] July, [facility] [id number] [place] [address] Apr, [facility] [id number] [place] [address] Mar, [facility] [id number] [place] [address] Feb, [facility] [id number] [place] [address] Feb, [facility] [id number] [place] [address] Feb, [facility] [id number] [place] [address] Feb, [facility] [id number] [place] [address] 15 Feb, 2010 [facility] [id number] [place] [address] Feb, [facility] [id number] [place] [address] Feb, [facility] [id number] [place] [address] Dec, [facility] [id number] [place] [address] Jan, [facility] [id number] [place] [address] Apr, IMMUNIZATIONS No Known Immunizations SOCIAL HISTORY [...] Hospitalization History Hyperglycemia 2012 Hospitalization History [facility] 11/28/2015-12/04/20152015 Hospitalization History Schizophrenia 09/26/16 Hospitalization History AMS, UTI, hyponatremia-[facility] 10/21/16 Hospitalization History stent placed 02/02/17 Hospitalization History stent placed 02/2017 Hospitalization History [facility]- Syncope, Dehydration and Hypotension. 06/08/2017 Hospitalization History [facility]- Dehydrated 08/2018
--- OUTSIDE RECORDS SUMMARY | 2019-07-05 08:10 | XMS REPORT ---
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 I25.10 Active 1641 [id number] Problem Bipolar affective disorder, current episode mixed, current episode severity unspecified F31.60 Active 6960076 08 Problem long-term current use of insulin Z79.4 Active 124348998 Problem Chronic idiopathic constipation K59.04 Active 23860828 Problem Age-related incipient cataract of both eyes H25.09 3 Active 697474974 Problem 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 Active 832085525 Problem Essential hypertension I10 Active 32106283 Problem Diabetes E11.9 Active 33437429 Problem Diabetes 1.5, 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 583886849 Problem Slow transit constipation K59.01 Acti ve 01825643 Problem Food allergy Z91.018 Active 5419840 01 Problem Irritable bowel syndrome with both constipation and diarrh ea K58.2 Active 00230069 Problem Irritable bowel syndrome with diarrhea K58.0 Active 516015514 Problem Arthritis of back M47.9 Active 68 705191 Problem Pacemaker Z95.0 Active 352431804 Problem Type 2 diabetes mellitus with diabetic chronic kidney disease E11.22 Active 80099695 Problem Constipation K59.00 Active 4120577 8 Problem CVA (cerebral vascular accident) I63.9 Active 250850980 Problem Psychosis, unspecified psychosis type F29 Active 72579103 Problem Irritable bowel syndrome with both constipation and diarrh ea K58.2 Active 67157170 Problem rn long term care (current) use of insulin Z79.4 Active 869074465 Problem Chronic kidney disease, stage 3 (moderate) N18.3 Active 188209501 Problem Irritable bowel syndrome with diarrhea K58.0 Active 383706074 ALLERGIES No Information ENCOUNTERS Encounter Location Date Diagnosis [facility] [id number] [place] [address] 14 May, 2019 Diabetes E11.9 [facility] [address] [address] 02 May, 2019 Diabetes E11.9 [facility] [id number] [place] [address] 09 Feb, 2019 Type 2 diabetes mellitus with diabetic c hronic kidney disease E11.22 ; Chronic kidney disease, stage 3 (moderate) N18.3 ; long-term (current) use of insulin Z79.4 ; Weight loss R63.4 ; Colon cancer screening Z12.11 ; Irritable bowel syndrome with both constipation and diarrhea K58.2 ; Essential hypertension I10 ; Pacemaker Z95.0 and Food allergy Z91.018 [facility] [id number] [place] [address] 08 Jan, 2019 Diabetes E11.9 [facility] [id number] [place] [address] Jan, [address] [facility] [address] Dec, Bipolar affective disorder, current episode mixed, current episode severity unspecified F31.60 [place] [id number] [place] [address] Dec, [place] [address] [address] Nov, Diabetes E11.9 [place] [id number] [place] [address] Oct, [place] [address] [address] Oct, [place] [address] [address] Sep, Generalized abdominal pain R10.84 ; Slow transit constipation K59.01 and Diabetes E11.9 [facility] [address] [facility] [id number] [address] [place] [address] Aug, Viral upper respiratory trac t infection J06.9 [facility] [id number] [place] [address] Aug, [facility] [address] [address] Aug, Bipolar affective disorder, current epis ode mixed, current episode severity unspecified F31.60 [facility] [id number] [place] [address] Aug, Bipolar affective disorder, current epis ode mixed, current episode severity unspecified F31.60 [facility] [address] [facility] [id number] [address] [place] [address] Aug, Viral upper respiratory trac t infection J06.9 [facility] [address] [address] Aug, [place] [address] [address] Jun, Type 2 diabetes mellitus with diabetic c ataract E11.36 and rn long term care current use of insulin Z79.4 [place] [address] [address] May, [facility] [address] [address] Apr, [facility] [address] [address] Apr, Diabetes E11.9 [facility] [address] [address] Apr, Bipolar affective disorder, current epis ode mixed, current episode severity unspecified F31.60 [facility] [address] [address] Apr, [facility] [address] [address] Mar, [facility] [address] [address] Mar, Psychosis, unspecified psychosis type F2 9 and Bipolar affective disorder, current episode mixed, current episode severity unspecified F31.60 [place] [address] [address] Mar, [facility] [address] [place] [address] [id number] [address] [place] [address] Mar, Low back pain M54.5 and Arth ritis of back M47.9 [place] [address] [address] Mar, [facility] [address] [id number] [address] [place] [address] Feb, Abdominal pain R10.9 and Con stipation K59.00 [facility] [address] [address] Feb, Vertigo R42 ; Type 2 diabetes mellitus w ith diabetic cataract E11.36 ; Hyperglycemia R73.9 and Essential hypertension I10 [place] [address] [address] Jan, [place] [address] [address] Dec, [place] [address] [address] Dec, [facility] [address] [facility] [id number] [address] [place] [address] Dec, Dizziness R42 and Diabetes 1 .5, 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 [place] [address] [address] Dec, [place] [address] [address] Dec, [place] [address] [address] Dec, Psychosis, unspecified psychosis type F2 9 and Bipolar affective disorder, current episode mixed, current episode severity unspecified F31.60 [place] [address] [address] Dec, [facility] [address] [address] Dec, [facility] [address] [address] Dec, Type 2 diabetes mellitus with diabetic c ataract E11.36 ; long-term current use of insulin Z79.4 and Hyperglycemia R73.9 [place] [address] [address] Oct, [place] [address] [address] Oct, [place] [address] [address] Oct, [place] [address] [address] Sep, [facility] [address] [facility] [id number] [place] [address] Aug, Upper respiratory tract infe ction, unspecified type J06.9 ; Chronic idiopathic constipation K59.04 ; Fluid level behind tympanic membrane of both ears H65.93 and Abdominal pain R10.9 [place] [address] [address] July, Diabetes E11.9 [place] [address] [address] Jun, Dehydration E86.0 ; Diabetes E11.9 and H yperglycemia R73.9 [place] [address] [address] Jun, [place] [address] [address] Jun, Vertigo R42 ; Syncope, unspecified synco pe type R55 ; Diabetes E11.9 and Hyperglycemia R73.9 [place] [address] [address] May, Psychosis, unspecified psychosis type F2 9 and Bipolar affective disorder, current episode mixed, current episode severity unspecified F31.60 [facility] [address] [address] May, [facility] [id number] [place] [address] May, Diabetes E11.9 [facility] [address] [facility] [place] [id number] Apr, Dental examination Z01.20 and Dental car ies K02.9 [place] [address] [address] Apr, Dental examination Z01.20 and Dental abs cess K04.7 [place] [address] [address] Mar, Psychosis, unspecified psychosis type F2 9 and Bipolar affective disorder, current episode mixed, current episode severity unspecified F31.60 [facility] [address] [address] Mar, [facility] [address] [address] Feb, [place] [address] [address] Feb, Left wrist pain M25.532 [place] [address] [address] Jan, [facility] [address] [address] Jan, Psychosis, unspecified psychosis type F2 9 and Bipolar affective disorder, current episode mixed, current episode severity unspecified F31.60 [facility] [address] [address] Jan, Diabetes E11.9 [facility] [address] [facility] [id number] [address] [place] [address] Jan, Left wrist pain M25.532 [facility] [address] [address] Dec, Psychosis, unspecified psychosis type F2 9 and Bipolar affective disorder, current episode mixed, current episode severity unspecified F31.60 [facility] [address] [address] Dec, Syncope, unspecified syncope type R55 ; Vertigo R42 ; Diabetes E11.9 ; Psychosis, unspecified psychosis type F29 and Fall, initial encounter W19.XXXA [facility] [address] [address] Dec, Diabetes E11.9 ; Neck pain M54.2 and Fela tigo R42 [facility] [address] [address] Nov, [facility] [address] [facility] [id number] [place] [address] 08 Nov, 2016 [facility] [address] [address] 08 Nov, 2016 [facility] [address] [address] 06 Nov, 2016 Diabetes E11.9 [facility] [address] [address] 05 Nov, 2016 Diabetes E11.9 [facility] [address] [address] Oct, [facility] [id number] [id number] Oct, [facility] [address] [address] Oct, [facility] [address] [address] Oct, Bipolar affective disorder, current epis ode mixed, current episode severity unspecified F31.60 [facility] [id number] [id number] Sep, [facility] [address] [facility] [place] [address] Sep, Bipolar affective disorder, current epis ode mixed, current episode severity unspecified F31.60 [facility] [address] [facility] [id number] [address] [place] [address] Sep, Acute maxillary sinusitis, r ecurrence not specified J01.00 [place] [address] [address] Sep, Diabetes E11.9 [place] [address] [address] July, Diabetes E11.9 [place] [address] [address] July, Diabetes E11.9 [place] [address] [address] Jun, [place] [address] [address] May, Bipolar affective disorder, current epis ode mixed, current episode severity unspecified F31.60 [facility] [address] [facility] [id number] [address] [place] [address] May, Acute non-recurrent maxillar y sinusitis J01.00 [place] [address] [id number] [place] [address] 10 Apr, 2016 Psychosis, unspecified psychosis type F2 9 and Bipolar affective disorder, current episode mixed, current episode severity unspecified F31.60 [facility] [address] [facility] [id number] [address] [place] [address] Apr, Dysuria R30.0 ; Other viral agents as the cause of diseases classified elsewhere B97.89 and Acute upper respiratory infection, unspecified J06.9 [place] [address] [facility] [place] [address] Mar, Diabetes E11.9 ; Urine leukocytes R82.99 and Psychosis, unspecified psychosis type F29 [facility] [address] [address] Mar, Diabetes E11.9 [facility] [address] [address] Feb, [facility] [address] [address] Jan, [facility] [address] [address] Dec, Psychosis, unspecified psychosis type F2 9 [place] [address] [address] Dec, [facility] [address] [facility] [id number] [address] [place] [address] Dec, [place] [address] [address] Dec, Psychosis, unspecified psychosis type F2 9 [place] [address] [address] Nov, Schizoaffective disorder, unspecified ty pe F25.9 [place] [address] [address] Oct, [facility] [address] [facility] [id number] [address] [place] [address] Oct, Conjunctivitis of right eye, unspecified conjunctivitis type H10.9 [place] [address] [address] Aug, [facility] [address] [facility] [place] [id number] Jun, Encounter for dental examination Z01.20 [place] [address] [address] Jun, Diabetes E11.9 and Bipolar affect, depre ssed F31.30 [place] [address] [address] Jun, Other bipolar disorder F31.89 [facility] [address] [id number] [place] [address] Jun, [facility] [address] [id number] [place] [address] Apr, [facility] [address] [id number] [place] [address] Dec, [facility] [address] [id number] [place] [address] Dec, [facility] [address] [id number] [place] [address] Sep, [facility] [address] [id number] [place] [address] Jun, [facility] [address] [id number] [place] [address] Jun, [facility] [address] [id number] [place] [address] Mar, [facility] [address] [id number] [place] [address] Mar, [facility] [address] [id number] [place] [address] Nov, [facility] [address] [id number] [place] [address] Nov, [facility] [address] [id number] [place] [address] Sep, [facility] [address] [id number] [place] [address] Sep, [facility] [address] [id number] [place] [address] Sep, [facility] [address] [id number] [place] [address] Sep, [facility] [address] [id number] [place] [address] Sep, [facility] [address] [id number] [place] [address] Aug, [facility] [address] [id number] [place] [address] Aug, [facility] [address] [id number] [place] [address] Aug, [facility] [address] [id number] [place] [address] Aug, [facility] [address] [id number] [place] [address] Aug, [facility] [address] [id number] [place] [address] Aug, [facility] [address] [id number] [place] [address] July, [facility] [address] [id number] [place] [address] July, [facility] [address] [id number] [place] [address] Jun, [facility] [address] [id number] [place] [address] Jun, [facility] [address] [id number] [place] [address] Jun, [facility] [address] [id number] [place] [address] Jun, [facility] [address] [id number] [place] [address] Jun, [facility] [address] [id number] [place] [address] Jun, [facility] [address] [id number] [place] [address] Jun, [facility] [address] [id number] [place] [address] Jun, [facility] [address] [id number] [place] [address] May, [facility] [address] [id number] [place] [address] May, [facility] [address] [id number] [place] [address] May, [facility] [address] [id number] [place] [address] May, [facility] [address] [id number] [place] [address] May, [facility] [address] [facility] [id number] [place] [address] May, [facility] [address] [id number] [place] [address] May, [facility] [address] [id number] [place] [address] May, [facility] [address] [id number] [place] [address] May, [facility] [address] [id number] [place] [address] Apr, [facility] [address] [id number] [place] [address] Apr, [facility] [address] [id number] [place] [address] Mar, [facility] [address] [id number] [place] [address] Mar, [facility] [address] [id number] [place] [address] Feb, [facility] [address] [id number] [place] [address] Feb, [facility] [address] [id number] [place] [address] Nov, [facility] [address] [id number] [place] [address] Nov, [facility] [address] [id number] [facility] [place] [address] Oct, [facility] [address] [facility] [id number] [facility] [place] [address] Oct, [facility] [address] [facility] [id number] [place] [address] Oct, [facility] [address] [id number] [place] [address] Oct, [facility] [address] [id number] [place] [address] Oct, [facility] [address] [facility] [id number] [place] [address] Sep, [facility] [address] [id number] [place] [address] Sep, [facility] [address] [id number] [place] [address] Sep, [facility] [address] [id number] [place] [address] Sep, [facility] [address] [id number] [place] [address] Aug, [facility] [address] [id number] [place] [address] Aug, [facility] [address] [id number] [place] [address] Aug, [facility] [address] [id number] [place] [address] Aug, [facility] [address] [id number] [place] [address] Jun, [facility] [address] [id number] [place] [address] 18 Jun, 2012 [facility] [address] [id number] [place] [address] Jun, [facility] [address] [id number] [place] [address] Jun, [facility] [address] [id number] [place] [address] 21 May, 2012 [facility] [address] [id number] [place] [address] 18 May, 2012 [facility] [address] [id number] [place] [address] 18 May, 2012 [facility] [address] [id number] [place] [address] 13 May, 2012 [facility] [address] [id number] [place] [address] 11 May, 2012 [facility] [address] [id number] [place] [address] 04 May, 2012 [facility] [address] [id number] [place] [address] 21 Apr, 2012 [facility] [address] [id number] [place] [address] 20 Apr, 2012 [facility] [address] [id number] [place] [address] Apr, [facility] [address] [id number] [place] [address] Apr, [facility] [address] [id number] [place] [address] Apr, [facility] [address] [id number] [place] [address] Feb, [facility] [address] [id number] [place] [address] Feb, [facility] [address] [id number] [place] [address] Feb, [facility] [address] [id number] [place] [address] Feb, [facility] [address] [id number] [place] [address] Feb, [facility] [address] [id number] [place] [address] Feb, [facility] [address] [id number] [place] [address] Feb, [facility] [address] [id number] [place] [address] Feb, [facility] [address] [id number] [place] [address] 14 Feb, 2012 [facility] [address] [id number] [place] [address] 14 Feb, 2012 [facility] [address] [facility] [id number] [place] [address] Feb, [facility] [address] [id number] [place] [address] Feb, [facility] [address] [id number] [place] [address] Feb, [facility] [address] [id number] [place] [address] Feb, [facility] [address] [id number] [place] [address] Feb, [facility] [address] [id number] [place] [address] Feb, [facility] [address] [id number] [place] [address] Feb, [facility] [address] [id number] [place] [address] Feb, [facility] [address] [id number] [place] [address] Feb, [facility] [address] [id number] [place] [address] Feb, [facility] [address] [id number] [place] [address] Feb, [facility] [address] [id number] [place] [address] Feb, [facility] [address] [id number] [place] [address] Feb, [facility] [address] [id number] [place] [address] Feb, [facility] [address] [id number] [place] [address] Feb, [facility] [address] [id number] [place] [address] Feb, [facility] [address] [id number] [place] [address] Jan, [facility] [address] [id number] [place] [address] Jan, [facility] [address] [id number] [place] [address] Dec, [facility] [address] [id number] [place] [address] Dec, [facility] [address] [id number] [place] [address] Dec, [facility] [address] [id number] [place] [address] Dec, [facility] [address] [id number] [place] [address] Nov, [facility] [address] [id number] [place] [address] Nov, [facility] [address] [id number] [place] [address] Nov, [facility] [address] [id number] [place] [address] Nov, [facility] [address] [id number] [place] [address] Oct, [facility] [address] [id number] [place] [address] Oct, [facility] [address] [id number] [place] [address] Sep, [facility] [address] [id number] [place] [address] 17 Sep, 2011 [facility] [address] [id number] [place] [address] Sep, [facility] [address] [id number] [place] [address] Aug, [facility] [address] [id number] [place] [address] Aug, [facility] [address] [id number] [place] [address] 14 Aug, 2011 [facility] [address] [id number] [place] [address] Aug, [facility] [address] [id number] [place] [address] Aug, [facility] [address] [id number] [place] [address] July, [facility] [address] [id number] [place] [address] July, [facility] [address] [id number] [place] [address] July, [facility] [address] [id number] [place] [address] July, [facility] [address] [id number] [place] [address] July, [facility] [address] [id number] [place] [address] Jun, [facility] [address] [id number] [place] [address] May, [facility] [address] [id number] [place] [address] 16 Apr, 2011 [facility] [address] [id number] [place] [address] Apr, [facility] [address] [id number] [place] [address] Apr, [facility] [address] [facility] [id number] [place] [address] Mar, [facility] [address] [id number] [place] [address] Mar, [facility] [address] [id number] [place] [address] Mar, [facility] [address] [id number] [place] [address] Mar, [facility] [address] [facility] [id number] [place] [address] Mar, [facility] [address] [id number] [place] [address] Mar, [facility] [address] [id number] [place] [address] Mar, [facility] [address] [id number] [place] [address] Mar, [facility] [address] [id number] [place] [address] Feb, [facility] [address] [id number] [place] [address] Feb, [facility] [address] [id number] [place] [address] Feb, [facility] [address] [id number] [place] [address] Feb, [facility] [address] [id number] [place] [address] Feb, [facility] [address] [id number] [place] [address] Jan, [facility] [address] [id number] [place] [address] Jan, [facility] [address] [id number] [place] [address] Jan, [facility] [address] [id number] [place] [address] 03 Jan, 2011 [facility] [address] [id number] [place] [address] 14 Dec, 2010 [facility] [address] [id number] [place] [address] 14 Dec, 2010 [facility] [address] [id number] [place] [address] 13 Sep, 2010 [facility] [address] [id number] [place] [address] July, [facility] [address] [id number] [place] [address] 11 Apr, 2010 [facility] [address] [id number] [place] [address] 20 Mar, 2010 [facility] [address] [id number] [place] [address] 28 Feb, 2010 [facility] [address] [id number] [place] [address] 20 Feb, 2010 [facility] [address] [id number] [place] [address] Feb, [facility] [address] [id number] [place] [address] Feb, [facility] [address] [id number] [place] [address] 15 Feb, 2010 [facility] [address] [id number] [place] [address] Feb, [facility] [address] [id number] [place] [address] Feb, [facility] [address] [id number] [place] [address] 25 Dec, 2009 [facility] [address] [id number] [place] [address] Jan, [facility] [address] [id number] [place] [address] 14 Apr, 2008 IMMUNIZATIONS No Known Immunizations [...] 2012 Hospitalization History [facility] 11/28/2015-12/04/20152015 Hospitalization History Schizophrenia 09/26/16 Hospitalization History AMS, UTI, hyponatremia-[facility] 10/21/16 Hospitalization History stent placed 02/02/17 Hospitalization History stent placed 02/2017 Hospitalization History [facility]- Syncope, Dehydration and Hypotension. 06/08/2017 Hospitalization History [facility]- Dehydrated 08/2018
--- OUTSIDE RECORDS SUMMARY | 2019-07-05 08:11 | XMS REPORT ---
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.10 Active 1641 [id number] Problem Bipolar affective disorder, current episode mixed, current episode severity unspecified F31.60 Active 3463283 08 Problem senior living current use of insulin Z79.4 Active 107031218 Problem Chronic idiopathic constipation K59.04 Active 99133517 Problem Age-related incipient cataract of both eyes H25.09 3 Active 630840284 Problem 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 Active 812597067 Problem Essential hypertension I10 Active 09711491 Problem Diabetes E11.9 Active 42786859 Problem Diabetes 1.5, 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 666215708 Problem Slow transit constipation K59.01 Acti ve 70251824 Problem Food allergy Z91.018 Active 7072028 01 Problem Irritable bowel syndrome with both constipation and diarrh ea K58.2 Active 84979502 Problem Irritable bowel syndrome with diarrhea K58.0 Active 722093316 Problem Arthritis of back M47.9 Active 68 718648 Problem Pacemaker Z95.0 Active 297898657 Problem Type 2 diabetes mellitus with diabetic chronic kidney disease E11.22 Active 44219775 Problem Constipation K59.00 Active 9894281 8 Problem CVA (cerebral vascular accident) I63.9 Active 818390617 Problem Psychosis, unspecified psychosis type F29 Active 68765111 Problem Irritable bowel syndrome with both constipation and diarrh ea K58.2 Active 60687446 Problem senior living (current) use of insulin Z79.4 Active 350461412 Problem Chronic kidney disease, stage 3 (moderate) N18.3 Active 869809025 Problem Irritable bowel syndrome with diarrhea K58.0 Active 230350206 ALLERGIES No Information ENCOUNTERS Encounter Location Date Diagnosis [facility] [address] [address] 09 Feb, 2019 Type 2 diabetes mellitus with diabetic c hronic kidney disease E11.22 ; Chronic kidney disease, stage 3 (moderate) N18.3 ; senior living (current) use of insulin Z79.4 ; Weight loss R63.4 ; Colon cancer screening Z12.11 ; Irritable bowel syndrome with both constipation and diarrhea K58.2 ; Essential hypertension I10 ; Pacemaker Z95.0 and Food allergy Z91.018 [facility] [address] [address] Jan, Diabetes E11.9 [place] [address] [address] Jan, [address] [facility] [address] Dec, Bipolar affective disorder, current episode mixed, current episode severity unspecified F31.60 [facility] [address] [address] Dec, [place] [address] [address] Nov, Diabetes E11.9 [facility] [address] [address] Oct, [facility] [address] [address] Oct, [facility] [address] [address] Sep, Generalized abdominal pain R10.84 ; Slow transit constipation K59.01 and Diabetes E11.9 [facility] [address] [facility] [id number] [address] [place] [address] Aug, Viral upper respiratory trac t infection J06.9 [facility] [address] [address] Aug, [place] [address] [place] [id number] [place] [address] Aug, Bipolar affective disorder, current epis ode mixed, current episode severity unspecified F31.60 [place] [address] [place] [id number] [place] [address] 05 Aug, 2018 Bipolar affective disorder, current epis ode mixed, current episode severity unspecified F31.60 [facility] [address] [facility] [id number] [address] [place] [address] Aug, Viral upper respiratory trac t infection J06.9 [place] [address] [address] Aug, [place] [address] [address] Jun, Type 2 diabetes mellitus with diabetic c ataract E11.36 and 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 Z79.4 [place] [address] [place] [id number] [place] [address] May, [place] [address] [address] Apr, [place] [address] [address] Apr, Diabetes E11.9 [place] [address] [address] Apr, Bipolar affective disorder, current epis ode mixed, current episode severity unspecified F31.60 [place] [address] [place] [id number] [place] [address] Apr, [place] [address] [address] Mar, [place] [address] [address] Mar, Psychosis, unspecified psychosis type F2 9 and Bipolar affective disorder, current episode mixed, current episode severity unspecified F31.60 [place] [address] [address] Mar, [facility] [address] [place] [id number] [address] [place] [address] Mar, Low back pain M54.5 and Arth ritis of back M47.9 [place] [address] [address] Mar, [facility] [address] [address] Feb, Abdominal pain R10.9 and Con stipation K59.00 [place] [address] [address] Feb, Vertigo R42 ; Type 2 diabetes mellitus w ith diabetic cataract E11.36 ; Hyperglycemia R73.9 and Essential hypertension I10 [place] [address] [address] Jan, [place] [address] [address] Dec, [place] [address] [address] Dec, [facility] WALK IN [facility] [address] [place] [id number] [address] [place] [address] Dec, Dizziness R42 and Diabetes 1 .5, 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 [place] [address] [address] Dec, [place] [address] [address] Dec, [place] [address] [address] Dec, Psychosis, unspecified psychosis type F2 9 and Bipolar affective disorder, current episode mixed, current episode severity unspecified F31.60 [place] [address] [address] Dec, [place] [address] [address] Dec, [facility] [address] [address] Dec, Type 2 diabetes mellitus with diabetic c ataract E11.36 ; 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 Z79.4 and Hyperglycemia R73.9 [facility] [address] [address] Oct, [facility] [address] [address] Oct, [place] [address] [address] Oct, [place] [address] [address] Sep, [facility]ALK IN [facility] [address] [facility] [id number] [address] [place] [address] Aug, Upper respiratory tract infe ction, unspecified type J06.9 ; Chronic idiopathic constipation K59.04 ; Fluid level behind tympanic membrane of both ears H65.93 and Abdominal pain R10.9 [place] [address] [address] July, Diabetes E11.9 [place] [address] [address] Jun, Dehydration E86.0 ; Diabetes E11.9 and H yperglycemia R73.9 [place] [address] [address] Jun, [place] [address] [address] Jun, Vertigo R42 ; Syncope, unspecified synco pe type R55 ; Diabetes E11.9 and Hyperglycemia R73.9 [place] [address] [address] May, Psychosis, unspecified psychosis type F2 9 and Bipolar affective disorder, current episode mixed, current episode severity unspecified F31.60 [facility] [address] [place] [id number] [place] [address] 14 May, 2017 [facility] [address] [address] May, Diabetes E11.9 [facility] [address] [id number] [place] [id number] Apr, Dental examination Z01.20 and Dental car ies K02.9 [facility] [address] [place] [id number] [place] [address] Apr, Dental examination Z01.20 and Dental abs cess K04.7 [place] [address] [address] Mar, Psychosis, unspecified psychosis type F2 9 and Bipolar affective disorder, current episode mixed, current episode severity unspecified F31.60 [facility] [address] [address] Mar, [facility] [address] [address] Feb, [facility] [address] [address] Feb, Left wrist pain M25.532 [place] [address] [address] Jan, [facility] [address] [address] Jan, Psychosis, unspecified psychosis type F2 9 and Bipolar affective disorder, current episode mixed, current episode severity unspecified F31.60 [facility] [address] [place] [id number] [place] [address] Jan, Diabetes E11.9 [facility] [address] [facility] [id number] [address] [place] [address] Jan, Left wrist pain M25.532 [facility] [address] [facility] [place] [address] Dec, Psychosis, unspecified psychosis type F2 9 and Bipolar affective disorder, current episode mixed, current episode severity unspecified F31.60 [facility] [address] [address] Dec, Syncope, unspecified syncope type R55 ; Vertigo R42 ; Diabetes E11.9 ; Psychosis, unspecified psychosis type F29 and Fall, initial encounter W19.XXXA [facility] [address] [address] Dec, Diabetes E11.9 ; Neck pain M54.2 and Fela tigo R42 [facility] [address] [address] Nov, [facility] [address] [facility] [id number] [place] [address] Nov, [facility] [address] [address] Nov, [facility] [address] [address] Nov, Diabetes E11.9 [facility] [address] [address] 05 Nov, 2016 Diabetes E11.9 [facility] [address] [address] Oct, [facility] [address] [place] [id number] [id number] Oct, [facility] [address] [address] Oct, [facility] [address] [address] Oct, Bipolar affective disorder, current epis ode mixed, current episode severity unspecified F31.60 [facility] [address] [place] [id number] [place] [id number] Sep, [facility] [address] [address] Sep, Bipolar affective disorder, current epis ode mixed, current episode severity unspecified F31.[address] [facility] IN [facility] [address] [facility] [id number] [address] [place] [address] 10 Sep, 2016 Acute maxillary sinusitis, r ecurrence not specified J01.00 [facility] [address] [address] 07 Sep, 2016 Diabetes E11.9 [facility] [address] [address] July, Diabetes E11.9 [place] [address] [address] July, Diabetes E11.9 [place] [address] [address] Jun, [place] [address] [address] May, Bipolar affective disorder, current epis ode mixed, current episode severity unspecified F31.[address] [facility] IN [facility] [address] [place] [id number] [address] [place] [address] May, Acute non-recurrent maxillar y sinusitis J01.00 [place] [address] [address] 10 Apr, 2016 Psychosis, unspecified psychosis type F2 9 and Bipolar affective disorder, current episode mixed, current episode severity unspecified F31.[address] [facility] IN [facility] [address] [place] [id number] [address] [place] [address] Apr, Dysuria R30.0 ; Other viral agents as the cause of diseases classified elsewhere B97.89 and Acute upper respiratory infection, unspecified J06.9 [place] [address] [address] Mar, Diabetes E11.9 ; Urine leukocytes R82.99 and Psychosis, unspecified psychosis type F29 [place] [address] [address] Mar, Diabetes E11.9 [facility] [address] [place] [id number] [place] [address] Feb, [facility] [address] [address] Jan, [facility] [address] [address] Dec, Psychosis, unspecified psychosis type F2 9 [facility] [address] [address] Dec, [facility] [address] [place] [address] Dec, [place] [address] [address] Dec, Psychosis, unspecified psychosis type F2 9 [place] [address] [address] Nov, Schizoaffective disorder, unspecified ty pe F25.9 [place] [address] [address] Oct, [facility] [address] [place] [address] Oct, Conjunctivitis of right eye, unspecified conjunctivitis type H10.9 [place] [address] [place] [id number] [place] [address] Aug, [facility] [address] [id number] [place] [id number] Jun, Encounter for dental examination Z01.20 [place] [address] [place] [id number] [place] [address] Jun, Diabetes E11.9 and Bipolar affect, depre ssed F31.30 [place] [address] [place] [id number] [place] [address] Jun, Other bipolar disorder F31.89 [place] [address] [address] 13 Jun, 2015 [facility] [address] [id number] [place] [address] Apr, [facility] [address] [id number] [place] [address] Dec, [facility] [address] [id number] [place] [address] Dec, [facility] [address] [id number] [place] [address] Sep, 2014 [facility] [address] [id number] [place] [address] Jun, [facility] [address] [id number] [place] [address] Jun, [facility] [address] [id number] [place] [address] Mar, [facility] [address] [id number] [place] [address] Mar, [facility] [address] [id number] [place] [address] Nov, [facility] [address] [id number] [place] [address] Nov, [facility] [address] [id number] [place] [address] Sep, 2013 [facility] [address] [id number] [place] [address] Sep, [facility] [address] [id number] [place] [address] Sep, [facility] [address] [id number] [place] [address] Sep, [facility] [address] [id number] [place] [address] Sep, [facility] [address] [id number] [place] [address] Aug, [facility] [address] [id number] [place] [address] Aug, [facility] [address] [facility] [id number] [place] [address] Aug, [facility] [address] [id number] [place] [address] Aug, [facility] [address] [id number] [place] [address] Aug, [facility] [address] [id number] [place] [address] Aug, [facility] [address] [id number] [place] [address] July, [facility] [address] [id number] [place] [address] July, [facility] [address] [id number] [place] [address] Jun, [facility] [address] [id number] [place] [address] Jun, [facility] [address] [id number] [place] [address] Jun, [facility] [address] [id number] [place] [address] Jun, [facility] [address] [id number] [place] [address] Jun, [facility] [address] [id number] [place] [address] Jun, [facility] [address] [id number] [place] [address] Jun, [facility] [address] [id number] [place] [address] Jun, [facility] [address] [id number] [place] [address] May, [facility] [address] [id number] [place] [address] May, [facility] [address] [id number] [place] [address] May, [facility] [address] [facility] [id number] [place] [address] May, [facility] [address] [id number] [place] [address] May, [facility] [address] [id number] [place] [address] May, [facility] [address] [id number] [place] [address] May, [facility] [address] [id number] [place] [address] May, [facility] [address] [id number] [place] [address] May, [facility] [address] [id number] [place] [address] Apr, [facility] [address] [id number] [place] [address] Apr, [facility] [address] [id number] [place] [address] Mar, [facility] [address] [id number] [place] [address] Mar, [facility] [address] [id number] [place] [address] Feb, [facility] [address] [id number] [place] [address] Feb, [facility] [address] [id number] [place] [address] Nov, [facility] [address] [id number] [place] [address] Nov, [facility] [address] [id number] [place] [address] Oct, [facility] [address] [id number] [place] [address] Oct, [facility] [address] [facility] [id number] [place] [address] Oct, [facility] [address] [id number] [place] [address] Oct, [facility] [address] [id number] [place] [address] Oct, [facility] [address] [id number] [place] [address] Sep, [facility] [address] [facility] [id number] [place] [address] Sep, [facility] [address] [id number] [place] [address] Sep, [facility] [address] [id number] [place] [address] Sep, [facility] [address] [id number] [place] [address] Aug, [facility] [address] [id number] [place] [address] Aug, [facility] [address] [id number] [place] [address] Aug, [facility] [address] [id number] [place] [address] Aug, [facility] [address] [id number] [place] [address] Jun, [facility] [address] [id number] [place] [address] 18 Jun, 2012 [facility] [address] [id number] [place] [address] Jun, [facility] [address] [id number] [place] [address] Jun, [facility] [address] [id number] [place] [address] May, [facility] [address] [id number] [place] [address] 18 May, 2012 [facility] [address] [facility] [id number] [place] [address] 18 May, 2012 [facility] [address] [id number] [place] [address] 13 May, 2012 [facility] [address] [id number] [place] [address] 11 May, 2012 [facility] [address] [id number] [place] [address] 04 May, 2012 [facility] [address] [id number] [place] [address] 21 Apr, 2012 [facility] [address] [id number] [place] [address] 20 Apr, 2012 [facility] [address] [id number] [place] [address] 19 Apr, 2012 [facility] [address] [id number] [place] [address] Apr, [facility] [address] [id number] [place] [address] Apr, [facility] [address] [id number] [place] [address] Feb, [facility] [address] [id number] [place] [address] Feb, [facility] [address] [id number] [place] [address] Feb, [facility] [address] [id number] [place] [address] Feb, [facility] [address] [id number] [place] [address] Feb, [facility] [address] [id number] [place] [address] Feb, [facility] [address] [id number] [place] [address] Feb, [facility] [address] [id number] [place] [address] Feb, [facility] [address] [id number] [place] [address] 14 Feb, 2012 [facility] [address] [id number] [place] [address] 14 Feb, 2012 [facility] [address] [id number] [place] [address] Feb, [facility] [address] [id number] [place] [address] Feb, [facility] [address] [id number] [place] [address] Feb, [facility] [address] [id number] [place] [address] Feb, [facility] [address] [id number] [place] [address] Feb, [facility] [address] [id number] [place] [address] Feb, [facility] [address] [id number] [place] [address] Feb, [facility] [address] [id number] [place] [address] Feb, [facility] [address] [id number] [place] [address] Feb, [facility] [address] [id number] [place] [address] Feb, [facility] [address] [id number] [place] [address] Feb, [facility] [address] [id number] [place] [address] Feb, [facility] [address] [id number] [place] [address] Feb, [facility] [address] [id number] [place] [address] Feb, [facility] [address] [id number] [place] [address] Feb, [facility] [address] [id number] [place] [address] Feb, [facility] [address] [id number] [place] [address] Jan, [facility] [address] [id number] [place] [address] Jan, [facility] [address] [id number] [place] [address] Dec, [facility] [address] [id number] [place] [address] Dec, [facility] [address] [id number] [place] [address] Dec, [facility] [address] [id number] [place] [address] Dec, [facility] [address] [id number] [place] [address] Nov, [facility] [facility] [address] [id number] [place] [address] Nov, [facility] [address] [id number] [place] [address] Nov, [facility] [address] [id number] [place] [address] Nov, [facility] [address] [id number] [place] [address] Oct, [facility] [address] [id number] [place] [address] Oct, [facility] [address] [id number] [place] [address] Sep, [facility] [address] [id number] [place] [address] Sep, [facility] [address] [id number] [place] [address] Sep, [facility] [address] [id number] [place] [address] Aug, [facility] [address] [id number] [place] [address] Aug, [facility] [address] [id number] [place] [address] 14 Aug, 2011 [facility] [address] [id number] [place] [address] Aug, [facility] [address] [id number] [place] [address] Aug, [facility] [address] [id number] [place] [address] July, [facility] [address] [id number] [place] [address] July, [facility] [address] [id number] [place] [address] July, [facility] [address] [id number] [place] [address] July, [facility] [address] [id number] [place] [address] July, [facility] [address] [id number] [place] [address] Jun, [facility] [address] [id number] [place] [address] May, [facility] [address] [id number] [place] [address] 16 Apr, 2011 [facility] [address] [id number] [place] [address] Apr, [facility] [address] [id number] [place] [address] Apr, [facility] [address] [id number] [place] [address] Mar, [facility] [address] [id number] [place] [address] Mar, [facility] [address] [id number] [place] [address] Mar, [facility] [address] [id number] [place] [address] Mar, [facility] [address] [id number] [place] [address] Mar, [facility] [address] [id number] [place] [address] Mar, [facility] [address] [id number] [place] [address] Mar, [facility] [address] [id number] [place] [address] Mar, [facility] [address] [id number] [place] [address] Feb, [facility] [address] [id number] [place] [address] Feb, [facility] [address] [id number] [place] [address] Feb, [facility] [address] [id number] [place] [address] Feb, [facility] [address] [id number] [place] [address] Feb, [facility] [address] [id number] [place] [address] Jan, [facility] [address] [id number] [place] [address] Jan, [facility] [address] [id number] [place] [address] Jan, [facility] [address] [id number] [place] [address] Jan, [facility] [address] [id number] [place] [address] 14 Dec, 2010 [facility] [id number] [place] [address] 14 Dec, 2010 [facility] [id number] [place] [address] Sep, [facility] [id number] [place] [address] July, [facility] [id number] [place] [address] Apr, [facility] [id number] [place] [address] Mar, [facility] [id number] [place] [address] Feb, [facility] [id number] [place] [address] Feb, [facility] [id number] [place] [address] Feb, [facility] [id number] [place] [address] Feb, [facility] [id number] [place] [address] Feb, [facility] [id number] [place] [address] Feb, [facility] [id number] [place] [address] Feb, [facility] [id number] [place] [address] Dec, [facility] [id number] [place] [address] Jan, [facility] [id number] [place] [address] 14 Apr, 2008 IMMUNIZATIONS No Known Immunizations SOCIAL HISTORY Never Assessed REASON FOR VISIT PLAN OF CARE VITAL SIGNS MEDICATIONS No Known Medications RESULTS No Results PROCEDURES No Known [...] History Hyperglycemia 2012 Hospitalization History [facility] 11/28/2015-12/04/20152015 Hospitalization History Schizophrenia 09/26/16 Hospitalization History AMS, UTI, hyponatremia-[facility] 10/21/16 Hospitalization History stent placed 02/02/17 Hospitalization History stent placed 02/2017 Hospitalization History [facility], operated by [facility]- Syncope, Dehydration and Hypotension. 06/08/2017 Hospitalization History [facility]- Dehydrated 08/2018
--- OUTSIDE RECORDS SUMMARY | 2019-07-05 08:11 | XMS REPORT ---
Author Author Melina CALDERON Organization [facility] Address [address] [place] [address] Care Team Providers Care Shed Hand Name Role Phone WOOD CALDERON Unavailable PROBLEMS Type Condition ICD9-CM Code ZDI55-PT Code Onset Dates Condition S tatus SNOMED Code Problem Coronary artery disease invo lving al[place] coronary artery of [place] heart without angina pectoris I25.10 Active 1641 [id number] Problem Bipolar affective disorder, current episode mixed, current episode severity unspecified F31.60 Active 1265827 08 Problem senior care current use of insulin Z79.4 Active 394712809 Problem Chronic idiopathic constipation K59.04 Active 20259079 Problem Age-related incipient cataract of both eyes H25.09 3 Active 068882028 Problem 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 Active 608668554 Problem Essential hypertension I10 Active 26895772 Problem Diabetes E11.9 Active 68464635 Problem Diabetes 1.5, 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 960656952 Problem Slow transit constipation K59.01 Acti ve 35755430 Problem Food allergy Z91.018 Active 5466876 01 Problem Irritable bowel syndrome with both constipation and diarrh ea K58.2 Active 53925654 Problem Irritable bowel syndrome with diarrhea K58.0 Active 807699135 Problem Arthritis of back M47.9 Active 68 063876 Problem Pacemaker Z95.0 Active 673740031 Problem Type 2 diabetes mellitus with diabetic chronic kidney disease E11.22 Active 73427720 Problem Constipation K59.00 Active 3006553 8 Problem CVA (cerebral vascular accident) I63.9 Active 174336348 Problem Psychosis, unspecified psychosis type F29 Active 24325222 Problem Irritable bowel syndrome with both constipation and diarrh ea K58.2 Active 14004959 Problem senior care (current) use of insulin Z79.4 Active 436982699 Problem Chronic kidney disease, stage 3 (moderate) N18.3 Active 194797147 Problem Irritable bowel syndrome with diarrhea K58.0 Active 972599115 ALLERGIES No Information ENCOUNTERS Encounter Location Date Diagnosis [place] [address] [address] Feb, Type 2 diabetes mellitus with diabetic c hronic kidney disease E11.22 ; Chronic kidney disease, stage 3 (moderate) N18.3 ; senior care (current) use of insulin Z79.4 ; Weight loss R63.4 ; Colon cancer screening Z12.11 ; Irritable bowel syndrome with both constipation and diarrhea K58.2 ; Essential hypertension I10 ; Pacemaker Z95.0 and Food allergy Z91.018 [place] [address] [address] Jan, Diabetes E11.9 [place] [address] [address] Jan, [address] [facility] [address] Dec, Bipolar affective disorder, current episode mixed, current episode severity unspecified F31.60 [place] [address] [address] Dec, [place] [address] [address] Nov, Diabetes E11.9 [place] [address] [address] Oct, [place] [address] [address] Oct, [place] [address] [address] Sep, Generalized abdominal pain R10.84 ; Slow transit constipation K59.01 and Diabetes E11.9 [facility] [address] [facility] [place] [place] [id number] [address] [place] [address] Aug, Viral upper respiratory trac t infection J06.9 [facility] [address] [address] Aug, [facility] [address] [place] [id number] [place] [address] Aug, Bipolar affective disorder, current epis ode mixed, current episode severity unspecified F31.60 [facility] [address] [place] [id number] [place] [address] Aug, Bipolar affective disorder, current epis ode mixed, current episode severity unspecified F31.60 [facility] [address] [facility] [place] [id number] [address] [place] [address] Aug, Viral upper respiratory trac t infection J06.9 [place] [address] [place] [id number] [place] [address] Aug, [place] [address] [place] [id number] [place] [address] Jun, Type 2 diabetes mellitus with diabetic c ataract E11.36 and senior care current use of insulin Z79.4 [place] [address] [place] [id number] [place] [address] May, [facility] [address] [place] [id number] [place] [address] Apr, [place] [address] [address] Apr, Diabetes E11.9 [place] [address] [place] [id number] [place] [address] Apr, Bipolar affective disorder, current epis ode mixed, current episode severity unspecified F31.60 [facility] [address] [place] [id number] [place] [address] Apr, [place] [address] [address] Mar, [place] [address] [place] [id number] [place] [address] Mar, Psychosis, unspecified psychosis type F2 9 and Bipolar affective disorder, current episode mixed, current episode severity unspecified F31.60 [place] [address] [address] Mar, [facility] [address] [place] [address] Mar, Low back pain M54.5 and Arth ritis of back M47.9 [place] [address] [address] Mar, [facility] [address] [place] [id number] [place] [address] Feb, Abdominal pain R10.9 and Con stipation K59.00 [place] [address] [address] Feb, Vertigo R42 ; Type 2 diabetes mellitus w ith diabetic cataract E11.36 ; Hyperglycemia R73.9 and Essential hypertension I10 [place] [address] [address] Jan, [place] [address] [address] Dec, [place] [address] [address] Dec, [facility] [address] [place] [id number] [place] [address] Dec, Dizziness R42 and Diabetes 1 .5, 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 [place] [address] [address] Dec, [place] [address] [address] Dec, [place] [address] [address] Dec, Psychosis, unspecified psychosis type F2 9 and Bipolar affective disorder, current episode mixed, current episode severity unspecified F31.60 [place] [address] [address] Dec, [place] [address] [address] Dec, [place] [address] [address] Dec, Type 2 diabetes mellitus with diabetic c ataract E11.36 ; 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 and Hyperglycemia R73.9 [place] [address] [address] Oct, [place] [address] [address] Oct, [place] [address] [address] Oct, [place] [address] [address] Sep, [facility] [address] [facility] [place] [id number] [address] [place] [address] Aug, Upper respiratory tract infe ction, unspecified type J06.9 ; Chronic idiopathic constipation K59.04 ; Fluid level behind tympanic membrane of both ears H65.93 and Abdominal pain R10.9 [place] [address] [address] July, Diabetes E11.9 [place] [address] [address] Jun, Dehydration E86.0 ; Diabetes E11.9 and H yperglycemia R73.9 [place] [address] [address] Jun, [place] [address] [address] Jun, Vertigo R42 ; Syncope, unspecified synco pe type R55 ; Diabetes E11.9 and Hyperglycemia R73.9 [place] [address] [address] May, Psychosis, unspecified psychosis type F2 9 and Bipolar affective disorder, current episode mixed, current episode severity unspecified F31.60 [facility] [address] [place] [id number] [place] [address] May, [facility] [address] [address] May, Diabetes E11.9 [facility] [address] [facility] [id number] [place] [id number] Apr, Dental examination Z01.20 and Dental car ies K02.9 [facility] [address] [address] Apr, Dental examination Z01.20 and Dental abs cess K04.7 [place] [address] [address] Mar, Psychosis, unspecified psychosis type F2 9 and Bipolar affective disorder, current episode mixed, current episode severity unspecified F31.60 [place] [address] [address] Mar, [facility] [address] [address] Feb, [facility] [address] [address] Feb, Left wrist pain M25.532 [place] [address] [address] Jan, [facility] [address] [address] Jan, Psychosis, unspecified psychosis type F2 9 and Bipolar affective disorder, current episode mixed, current episode severity unspecified F31.60 [facility] [address] [address] Jan, Diabetes E11.9 [facility] [address] [facility] [facility] [place] [id number] [address] [place] [address] 07 Jan, 2017 Left wrist pain M25.532 [facility] [address] [address] Dec, Psychosis, unspecified psychosis type F2 9 and Bipolar affective disorder, current episode mixed, current episode severity unspecified F31.60 [facility] [address] [address] Dec, Syncope, unspecified syncope type R55 ; Vertigo R42 ; Diabetes E11.9 ; Psychosis, unspecified psychosis type F29 and Fall, initial encounter W19.XXXA [facility] [address] [address] Dec, Diabetes E11.9 ; Neck pain M54.2 and Fela tigo R42 [facility] [address] [address] 13 Nov, 2016 [facility] [address] [facility] [place] [id number] [place] [address] 08 Nov, 2016 [facility] [address] [address] 08 Nov, 2016 [facility] [address] [address] 06 Nov, 2016 Diabetes E11.9 [facility] [address] [address] 05 Nov, 2016 Diabetes E11.9 [facility] [address] [address] Oct, [facility] [address] [place] [id number] [place] [id number] Oct, [facility] [address] [address] Oct, [facility] [address] [address] Oct, Bipolar affective disorder, current epis ode mixed, current episode severity unspecified F31.60 [facility] [address] [place] [id number] [place] [id number] Sep, [facility] [address] [address] Sep, Bipolar affective disorder, current epis ode mixed, current episode severity unspecified F31.60 [facility] [address] [place] [id number] [address] [place] [address] Sep, Acute maxillary sinusitis, r ecurrence not specified J01.00 [facility] [address] [address] 07 Sep, 2016 Diabetes E11.9 [place] [address] [address] July, Diabetes E11.9 [place] [address] [address] July, Diabetes E11.9 [place] [address] [address] Jun, [place] [address] [address] May, Bipolar affective disorder, current epis ode mixed, current episode severity unspecified F31.60 [facility] [address] [place] [id number] [place] [address] May, Acute non-recurrent maxillar y sinusitis J01.00 [place] [address] [address] 10 Apr, 2016 Psychosis, unspecified psychosis type F2 9 and Bipolar affective disorder, current episode mixed, current episode severity unspecified F31.60 [facility] [address] [place] [id number] [place] [address] Apr, Dysuria R30.0 ; Other viral agents as the cause of diseases classified elsewhere B97.89 and Acute upper respiratory infection, unspecified J06.9 [place] [address] [address] Mar, Diabetes E11.9 ; Urine leukocytes R82.99 and Psychosis, unspecified psychosis type F29 [place] [address] [address] Mar, Diabetes E11.9 [facility] [address] [place] [id number] [place] [address] Feb, [facility] [address] [address] Jan, [facility] [address] [address] Dec, Psychosis, unspecified psychosis type F2 9 [facility] [address] [address] Dec, [facility] [address] [place] [address] Dec, [facility] [address] [address] Dec, Psychosis, unspecified psychosis type F2 9 [facility] [address] [address] Nov, Schizoaffective disorder, unspecified ty pe F25.9 [facility] [address] [address] Oct, [facility] [address] [place] [address] Oct, Conjunctivitis of right eye, unspecified conjunctivitis type H10.9 [facility] [address] [place] [id number] [place] [address] Aug, [facility] [address] [id number] [place] [id number] Jun, Encounter for dental examination Z01.20 [facility] [address] [place] [id number] [place] [address] Jun, Diabetes E11.9 and Bipolar affect, depre ssed F31.30 [facility] [address] [address] Jun, Other bipolar disorder F31.89 [place] [address] [address] Jun, [facility] [place] [facility] [address] [facility] [facility] [place] [id number] [place] [address] Apr, [facility] [place] [facility] [address] [facility] [place] [id number] [place] [address] Dec, [facility] [place] [facility] [address] [id number] [place] [address] Dec, [facility] [place] [facility] [address] [id number] [place] [address] Sep, [facility] [place] [facility] [address] [facility] [place] [id number] [place] [address] Jun, [facility] [place] [facility] [address] [id number] [place] [address] Jun, [facility] [place] [facility] [address] [id number] [place] [address] Mar, [facility] [place] [facility] [address] [id number] [place] [address] Mar, [facility] [place] [facility] [address] [id number] [place] [address] Nov, [facility] [place] [facility] [address] [id number] [place] [address] Nov, [facility] [place] [facility] [address] [id number] [place] [address] Sep, [facility] [place] [facility] [address] [id number] [place] [address] Sep, 2013 [facility] [place] [facility] [address] [id number] [place] [address] Sep, [facility] [place] [facility] [address] [id number] [place] [address] Sep, 2013 [facility] [place] [facility] [address] [id number] [place] [address] Sep, [facility] [place] [facility] [address] [id number] [place] [address] Aug, [facility] [place] [facility] [address] [id number] [place] [address] Aug, [facility] [place] [facility] [address] [id number] [place] [address] Aug, [facility] [place] [facility] [address] [facility] [place] [id number] [place] [address] Aug, [facility] [place] [facility] [address] [id number] [place] [address] Aug, [facility] [place] [facility] [address] [id number] [place] [address] Aug, [facility] [place] [facility] [address] [id number] [place] [address] July, [facility] [place] [facility] [address] [id number] [place] [address] July, [facility] [place] [facility] [address] [id number] [place] [address] Jun, [facility] [place] [facility] [address] [id number] [place] [address] Jun, [facility] [place] [facility] [address] [id number] [place] [address] Jun, [facility] [place] [facility] [address] [id number] [place] [address] Jun, [facility] [place] [facility] [address] [id number] [place] [address] Jun, [facility] [place] [facility] [address] [id number] [place] [address] Jun, [facility] [place] [facility] [address] [id number] [place] [address] Jun, [facility] [place] [facility] [address] [id number] [place] [address] Jun, [facility] [place] [facility] [address] [id number] [place] [address] May, [facility] [place] [facility] [address] [id number] [place] [address] May, [facility] [place] [facility] [address] [id number] [place] [address] May, [facility] [place] [facility] [address] [id number] [place] [address] May, [facility] [place] [facility] [address] [id number] [place] [address] May, [facility] [place] [facility] [address] [id number] [place] [address] May, [facility] [place] [facility] [address] [id number] [place] [address] May, [facility] [place] [facility] [address] [id number] [place] [address] May, [facility] [place] [facility] [address] [id number] [place] [address] May, [facility] [place] [facility] [address] [id number] [place] [address] Apr, [facility] [place] [facility] [address] [id number] [place] [address] Apr, [facility] [place] [facility] [address] [id number] [place] [address] Mar, [facility] [place] [facility] [address] [id number] [place] [address] Mar, [facility] [place] [facility] [address] [id number] [place] [address] Feb, [facility] [place] [facility] [address] [id number] [place] [address] Feb, [facility] [place] [facility] [address] [id number] [place] [address] Nov, [facility] [place] [facility] [address] [id number] [place] [address] 12 Nov, 2012 [facility] [place] [facility] [address] [id number] [place] [address] Oct, [facility] [place] [facility] [address] [id number] [place] [address] 08 Oct, 2012 [facility] [place] [facility] [address] [facility] [place] [id number] [place] [address] Oct, [facility] [place] [facility] [address] [facility] [place] [id number] [place] [address] Oct, [facility] [place] [facility] [address] [id number] [place] [address] Oct, [facility] [place] [facility] [address] [id number] [place] [address] Sep, [facility] [place] [facility] [address] [facility] [place] [id number] [place] [address] Sep, [facility] [place] [facility] [address] [id number] [place] [address] Sep, [facility] [place] [facility] [address] [id number] [place] [address] Sep, [facility] [place] [facility] [address] [id number] [place] [address] Aug, [facility] [place] [facility] [address] [id number] [place] [address] Aug, [facility] [place] [facility] [address] [id number] [place] [address] Aug, [facility] [place] [facility] [address] [id number] [place] [address] Aug, [facility] [place] [facility] [address] [id number] [place] [address] Jun, [facility] [place] [facility] [address] [facility] [place] [id number] [place] [address] 18 Jun, 2012 [facility] [place] [facility] [address] [id number] [place] [address] Jun, [facility] [place] [facility] [address] [id number] [place] [address] Jun, [facility] [place] [facility] [address] [id number] [place] [address] May, [facility] [place] [facility] [address] [id number] [place] [address] 18 May, 2012 [facility] [place] [facility] [address] [id number] [place] [address] 18 May, 2012 [facility] [place] [facility] [address] [id number] [place] [address] 13 May, 2012 [facility] [place] [facility] [address] [id number] [place] [address] 11 May, 2012 [facility] [place] [facility] [address] [id number] [place] [address] 04 May, 2012 [facility] [place] [facility] [address] [id number] [place] [address] 21 Apr, 2012 [facility] [place] [facility] [address] [id number] [place] [address] 20 Apr, 2012 [facility] [place] [facility] [address] [id number] [place] [address] Apr, [facility] [place] [facility] [address] [id number] [place] [address] Apr, [facility] [place] [facility] [address] [id number] [place] [address] Apr, [facility] [place] [facility] [address] [id number] [place] [address] Feb, [facility] [place] [facility] [address] [id number] [place] [address] Feb, [facility] [place] [facility] [address] [id number] [place] [address] Feb, [facility] [place] [facility] [address] [id number] [place] [address] Feb, [facility] [place] [facility] [address] [id number] [place] [address] Feb, [facility] [place] [facility] [address] [id number] [place] [address] Feb, [facility] [place] [facility] [address] [id number] [place] [address] Feb, [facility] [place] [facility] [address] [id number] [place] [address] 19 Feb, 2012 [facility] [place] [facility] [address] [id number] [place] [address] 14 Feb, 2012 [facility] [place] [facility] [address] [id number] [place] [address] 14 Feb, 2012 [facility] [place] [facility] [address] [id number] [place] [address] Feb, [facility] [place] [facility] [address] [id number] [place] [address] Feb, [facility] [place] [facility] [address] [id number] [place] [address] Feb, [facility] [place] [facility] [address] [id number] [place] [address] Feb, [facility] [place] [facility] [address] [id number] [place] [address] Feb, [facility] [place] [facility] [address] [id number] [place] [address] Feb, [facility] [place] [facility] [address] [id number] [place] [address] Feb, [facility] [place] [facility] [address] [id number] [place] [address] Feb, [facility] [place] [facility] [address] [id number] [place] [address] Feb, [facility] [place] [facility] [address] [id number] [place] [place] [address] Feb, [facility] [address] [id number] [place] [address] Feb, [facility] [address] [id number] [place] [address] Feb, [facility] [address] [id number] [place] [address] Feb, [facility] [address] [id number] [place] [address] Feb, [facility] [address] [id number] [place] [address] Feb, [facility] [address] [id number] [place] [address] Feb, [facility] [address] [id number] [place] [address] Jan, [facility] [address] [id number] [place] [address] Jan, [facility] [address] [id number] [place] [address] Dec, [facility] [address] [id number] [place] [address] Dec, [facility] [address] [id number] [place] [address] Dec, [facility] [address] [id number] [place] [address] Dec, [facility] [address] [id number] [place] [address] Nov, [facility] [address] [id number] [place] [address] Nov, [facility] [address] [id number] [place] [address] Nov, [facility] [address] [id number] [place] [address] Nov, [facility] [address] [id number] [place] [address] Oct, [facility] [address] [id number] [place] [address] Oct, [facility] [address] [id number] [place] [address] Sep, [facility] [address] [id number] [place] [address] Sep, [facility] [address] [facility] [id number] [address] Sep, [facility] [address] [id number] [place] [address] Aug, [facility] [address] [id number] [place] [address] Aug, [facility] [address] [id number] [place] [address] 14 Aug, 2011 [facility] [address] [id number] [place] [address] Aug, [facility] [address] [id number] [place] [address] Aug, [facility] [address] [id number] [place] [address] July, [facility] [address] [id number] [place] [address] July, [facility] [address] [id number] [place] [address] July, [facility] [address] [id number] [place] [address] July, [facility] [address] [id number] [place] [address] July, [facility] [address] [id number] [place] [address] Jun, [facility] [address] [id number] [place] [address] May, [facility] [address] [id number] [place] [address] 16 Apr, 2011 [facility] [address] [id number] [place] [address] Apr, [facility] [address] [id number] [place] [address] Apr, [facility] [address] [id number] [place] [address] Mar, [facility] [address] [id number] [place] [address] Mar, [facility] [address] [id number] [place] [address] Mar, [facility] [address] [id number] [place] [address] Mar, [facility] [address] [id number] [place] [address] Mar, [facility] [address] [facility] [place] [id number] [place] [address] Mar, [facility] [address] [id number] [place] [address] Mar, [facility] [address] [id number] [place] [address] Mar, [facility] [address] [id number] [place] [address] Feb, [facility] [address] [id number] [place] [address] Feb, [facility] [address] [id number] [place] [address] Feb, [facility] [address] [id number] [place] [address] Feb, [facility] [address] [id number] [place] [address] Feb, [facility] [address] [id number] [place] [address] Jan, [facility] [address] [id number] [place] [address] Jan, [facility] [address] [id number] [place] [address] Jan, [facility] [address] [id number] [place] [address] Jan, [facility] [address] [id number] [place] [address] 14 Dec, 2010 [facility] [address] [id number] [place] [address] 14 Dec, 2010 [facility] [address] [id number] [place] [address] Sep, [facility] [address] [id number] [place] [address] July, [facility] [id number] [place] [address] Apr, [facility] [address] [id number] [place] [address] Mar, [facility] [id number] [place] [address] Feb, [facility] [id number] [place] [address] Feb, [facility] [id number] [place] [address] Feb, [facility] [address] [id number] [place] [address] Feb, [facility] [id number] [place] [address] Feb, [facility] [address] [id number] [place] [address] Feb, [facility] [id number] [place] [address] Feb, [facility] [address] [id number] [place] [address] Dec, [facility] [id number] [place] [address] Jan, [facility] [id number] [place] [address] 14 Apr, 2008 IMMUNIZATIONS No Known Immunizations SOCIAL HISTORY Never Assessed REASON FOR VISIT PLAN OF CARE VITAL SIGNS Height 64 in 2013-05-26 Weight 198.25 lbs 2013-05-26 Temperature 97.8 degrees Fahrenheit 2013-05-26 Heart Rate 80 bpm 2013-05-26 Respiratory Rate 20 2013-05-26 Blood pressure systolic 149 mmHg 2013-05-26 Blood pressure diastolic 83 mmHg 2013-05-26 MEDICATIONS No Known Medications RESULTS No Results PROCEDURES Procedure Date Ordered Result Body Site GLYCATED HEMOGLOBIN TEST May 26, 2013 MICROALBUMIN, SEMIQUANT May 26, 2013 MICROALBUMIN, QUANTITATIVE May 26, 2013 BASIC METABOLIC PANEL May 26, 2013 VENIPUNCT, ROUTINE* May 26, 2013 INSTRUCTIONS MEDICATIONS ADMINISTERED No Known Medications MEDICAL [...] Hospitalization History Hyperglycemia 2012 Hospitalization History [facility] 11/28/2015-12/04/20152015 Hospitalization History Schizophrenia 09/26/16 Hospitalization History AMS, UTI, hyponatremia-[facility] 10/21/16 Hospitalization History stent placed 02/02/17 Hospitalization History stent placed 02/2017 Hospitalization History [facility]- Syncope, Dehydration and Hypotension. 06/08/2017 Hospitalization History [facility]- Dehydrated 08/2018
--- OUTSIDE RECORDS SUMMARY | 2019-07-05 08:11 | XMS REPORT ---
Author Author Melina CALDERON Organization [facility] Address [address] [place] [address] Care Team Providers Care Sales Audit Clerk Name Role Phone WOOD CALDERON Unavailable PROBLEMS Type Condition ICD9-CM Code [id number] Code Onset Dates Condition S tatus SNOMED Code Problem Coronary artery disease invo lving redding coronary artery of redding heart without angina pectoris I25.10 Active 1641 [id number] Problem Bipolar affective disorder, current episode mixed, current episode severity unspecified F31.60 Active 2036054 08 Problem intermediate current use of insulin Z79.4 Active 316001023 Problem Chronic idiopathic constipation K59.04 Active 18468237 Problem Age-related incipient cataract of both eyes H25.09 3 Active 898412050 Problem 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 Active 861940252 Problem Essential hypertension I10 Active 71940377 Problem Diabetes E11.9 Active 30537562 Problem Diabetes 1.5, 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 549237206 Problem Slow transit constipation K59.01 Acti ve 14000834 Problem Food allergy Z91.018 Active 0097674 01 Problem Irritable bowel syndrome with both constipation and diarrh ea K58.2 Active 61238313 Problem Irritable bowel syndrome with diarrhea K58.0 Active 145425457 Problem Arthritis of back M47.9 Active 68 682387 Problem Pacemaker Z95.0 Active 323734507 Problem Type 2 diabetes mellitus with diabetic chronic kidney disease E11.22 Active 14197118 Problem Constipation K59.00 Active 9543308 8 Problem CVA (cerebral vascular accident) I63.9 Active 602831405 Problem Psychosis, unspecified psychosis type F29 Active 02976696 Problem Irritable bowel syndrome with both constipation and diarrh ea K58.2 Active 80692047 Problem intermediate (current) use of insulin Z79.4 Active 375918276 Problem Chronic kidney disease, stage 3 (moderate) N18.3 Active 964698720 Problem Irritable bowel syndrome with diarrhea K58.0 Active 111147740 ALLERGIES No Information ENCOUNTERS Encounter Location Date Diagnosis [place] [address] [address] May, Diabetes E11.9 [place] [address] [address] Feb, Type 2 diabetes mellitus with diabetic c hronic kidney disease E11.22 ; Chronic kidney disease, stage 3 (moderate) N18.3 ; intermediate (current) use of insulin Z79.4 ; Weight loss R63.4 ; Colon cancer screening Z12.11 ; Irritable bowel syndrome with both constipation and diarrhea K58.2 ; Essential hypertension I10 ; Pacemaker Z95.0 and Food allergy Z91.018 [place] [address] [address] 08 Jan, 2019 Diabetes E11.9 [place] [address] [address] Jan, [address] [id number] [address] Dec, Bipolar affective disorder, current episode mixed, current episode severity unspecified F31.60 [place] [address] [address] Dec, [place] [address] [address] Nov, Diabetes E11.9 [place] [address] [address] Oct, [place] [address] [address] Oct, [place] [address] [address] Sep, Generalized abdominal pain R10.84 ; Slow transit constipation K59.01 and Diabetes E11.9 [facility] [address] [facility] [id number] [address] [place] [address] Aug, Viral upper respiratory trac t infection J06.9 [facility] [address] [place] [id number] [place] [address] Aug, [facility] [address] [place] [id number] [place] [address] Aug, Bipolar affective disorder, current epis ode mixed, current episode severity unspecified F31.60 [facility] [address] [place] [id number] [place] [address] Aug, Bipolar affective disorder, current epis ode mixed, current episode severity unspecified F31.60 [facility] [address] [facility] [id number] [address] [place] [address] Aug, Viral upper respiratory trac t infection J06.9 [facility] [address] [place] [id number] [place] [address] Aug, [place] [address] [address] Jun, Type 2 diabetes mellitus with diabetic c ataract E11.36 and intermediate current use of insulin Z79.4 [place] [address] [place] [id number] [place] [address] May, [place] [address] [address] Apr, [place] [address] [address] Apr, Diabetes E11.9 [place] [address] [place] [id number] [place] [address] Apr, Bipolar affective disorder, current epis ode mixed, current episode severity unspecified F31.60 [place] [address] [address] Apr, [facility] [address] [address] Mar, [place] [address] [address] Mar, Psychosis, unspecified psychosis type F2 9 and Bipolar affective disorder, current episode mixed, current episode severity unspecified F31.60 [place] [address] [address] Mar, [facility] [address] [place] [id number] [address] [place] [address] Mar, Low back pain M54.5 and Arth ritis of back M47.9 [place] [address] [address] Mar, [facility] [address] [address] Feb, Abdominal pain R10.9 and Con stipation K59.00 [place] [address] [address] Feb, Vertigo R42 ; Type 2 diabetes mellitus w ith diabetic cataract E11.36 ; Hyperglycemia R73.9 and Essential hypertension I10 [place] [address] [address] Jan, [place] [address] [address] Dec, [place] [address] [address] Dec, [facility] [address] [place] [id number] [address] [place] [address] Dec, Dizziness R42 and Diabetes 1 .5, 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 [place] [address] [address] Dec, [place] [address] [address] Dec, [place] [address] [address] Dec, Psychosis, unspecified psychosis type F2 9 and Bipolar affective disorder, current episode mixed, current episode severity unspecified F31.60 [place] [address] [address] Dec, [facility] [address] [address] Dec, [facility] [address] [address] Dec, Type 2 diabetes mellitus with diabetic c ataract E11.36 ; intermediate current use of insulin Z79.4 and Hyperglycemia R73.9 [place] [address] [address] Oct, [place] [address] [address] Oct, [place] [address] [address] Oct, [place] [address] [address] Sep, [facility] [address] [facility] [id number] [place] [address] Aug, Upper respiratory tract infe ction, unspecified type J06.9 ; Chronic idiopathic constipation K59.04 ; Fluid level behind tympanic membrane of both ears H65.93 and Abdominal pain R10.9 [place] [address] [address] July, Diabetes E11.9 [place] [address] [address] Jun, Dehydration E86.0 ; Diabetes E11.9 and H yperglycemia R73.9 [place] [address] [address] Jun, [place] [address] [address] Jun, Vertigo R42 ; Syncope, unspecified synco pe type R55 ; Diabetes E11.9 and Hyperglycemia R73.9 [place] [address] [address] May, Psychosis, unspecified psychosis type F2 9 and Bipolar affective disorder, current episode mixed, current episode severity unspecified F31.60 [facility] [address] [place] [address] [id number] [place] [address] May, [facility] [address] [place] [address] [id number] [place] [address] May, Diabetes E11.9 [facility] [address] [id number] [place] [id number] Apr, Dental examination Z01.20 and Dental car ies K02.9 [place] [address] [place] [id number] [place] [address] Apr, Dental examination Z01.20 and Dental abs cess K04.7 [place] [address] [address] [id number] [place] [address] Mar, Psychosis, unspecified psychosis type F2 9 and Bipolar affective disorder, current episode mixed, current episode severity unspecified F31.60 [facility] [address] [place] [address] [id number] [place] [address] Mar, [place] [address] [address] Feb, [facility] [address] [address] Feb, Left wrist pain M25.532 [place] [address] [address] Jan, [facility] [address] [address] Jan, Psychosis, unspecified psychosis type F2 9 and Bipolar affective disorder, current episode mixed, current episode severity unspecified F31.60 [facility] [address] [place] [address] [id number] [place] [address] Jan, Diabetes E11.9 [facility] [address] [facility] [id number] [address] [place] [address] Jan, Left wrist pain M25.532 [facility] [address] [address] Dec, Psychosis, unspecified psychosis type F2 9 and Bipolar affective disorder, current episode mixed, current episode severity unspecified F31.60 [facility] [address] [address] Dec, Syncope, unspecified syncope type R55 ; Vertigo R42 ; Diabetes E11.9 ; Psychosis, unspecified psychosis type F29 and Fall, initial encounter W19.XXXA [place] [address] [address] Dec, Diabetes E11.9 ; Neck pain M54.2 and Fela tigo R42 [place] [address] [address] Nov, [facility] [address] [facility] [id number] [place] [address] 08 Nov, 2016 [place] [address] [address] 08 Nov, 2016 [facility] [address] [address] 06 Nov, 2016 Diabetes E11.9 [place] [address] [address] 05 Nov, 2016 Diabetes E11.9 [place] [address] [address] Oct, [facility] [address] [place] [id number] [id number] Oct, [facility] [address] [address] Oct, [place] [address] [address] Oct, Bipolar affective disorder, current epis ode mixed, current episode severity unspecified F31.60 [facility] [address] [place] [id number] [id number] Sep, [facility] [address] [id number] [place] [address] Sep, Bipolar affective disorder, current epis ode mixed, current episode severity unspecified F31.60 [facility] [address] [facility] [id number] [address] [place] [address] Sep, Acute maxillary sinusitis, r ecurrence not specified J01.00 [place] [address] [address] Sep, Diabetes E11.9 [place] [address] [address] July, Diabetes E11.9 [place] [address] [address] July, Diabetes E11.9 [place] [address] [address] Jun, [place] [address] [address] May, Bipolar affective disorder, current epis ode mixed, current episode severity unspecified F31.60 [facility] [address] [place] [id number] [place] [address] May, Acute non-recurrent maxillar y sinusitis J01.00 [place] [address] [id number] [place] [address] 10 Apr, 2016 Psychosis, unspecified psychosis type F2 9 and Bipolar affective disorder, current episode mixed, current episode severity unspecified F31.60 [facility] [address] [facility] [id number] [address] [place] [address] Apr, Dysuria R30.0 ; Other viral agents as the cause of diseases classified elsewhere B97.89 and Acute upper respiratory infection, unspecified J06.9 [place] [address] [address] Mar, Diabetes E11.9 ; Urine leukocytes R82.99 and Psychosis, unspecified psychosis type F29 [facility] [address] [place] [address] [id number] [place] [address] Mar, Diabetes E11.9 [facility] [address] [address] Feb, [facility] [address] [address] Jan, [facility] [address] [address] Dec, Psychosis, unspecified psychosis type F2 9 [facility] [address] [address] Dec, [facility] [address] [facility] [id number] [address] [place] [address] Dec, [facility] [address] [address] Dec, Psychosis, unspecified psychosis type F2 9 [facility] [address] [address] Nov, Schizoaffective disorder, unspecified ty pe F25.9 [place] [address] [address] Oct, [facility] [address] [place] [id number] [place] [address] Oct, Conjunctivitis of right eye, unspecified conjunctivitis type H10.9 [facility] [address] [place] [id number] [place] [address] Aug, [facility] [address] [id number] [place] [id number] Jun, Encounter for dental examination Z01.20 [place] [address] [place] [id number] [place] [address] Jun, Diabetes E11.9 and Bipolar affect, depre ssed F31.30 [place] [address] [address] Jun, Other bipolar disorder F31.89 [facility] [address] [id number] [place] [address] Jun, [facility] [address] [id number] [place] [address] Apr, [facility] [address] [id number] [place] [address] Dec, [facility] [address] [id number] [place] [address] Dec, [facility] [address] [id number] [place] [address] Sep, [facility] [address] [id number] [place] [address] Jun, [facility] [address] [id number] [place] [address] Jun, [facility] [address] [id number] [place] [address] Mar, [facility] [address] [id number] [place] [address] Mar, [facility] [address] [id number] [place] [address] Nov, [facility] [address] [id number] [place] [address] Nov, [facility] [address] [id number] [place] [address] Sep, [facility] [address] [id number] [place] [address] Sep, [facility] [address] [id number] [place] [address] Sep, [facility] [address] [id number] [place] [address] Sep, [facility] [address] [id number] [place] [address] Sep, [facility] [address] [id number] [place] [address] Aug, [facility] [address] [id number] [place] [address] Aug, [facility] [address] [id number] [place] [address] Aug, [facility] [address] [id number] [place] [address] Aug, [facility] [address] [id number] [place] [address] Aug, [facility] [address] [id number] [place] [address] Aug, [facility] [address] [id number] [place] [address] July, [facility] [address] [id number] [place] [address] July, [facility] [address] [id number] [place] [address] Jun, [facility] [address] [id number] [place] [address] Jun, [facility] [address] [id number] [place] [address] Jun, [facility] [address] [id number] [place] [address] Jun, [facility] [address] [id number] [place] [address] Jun, [facility] [address] [id number] [place] [address] Jun, [facility] [address] [id number] [place] [address] Jun, [facility] [address] [id number] [place] [address] Jun, [facility] [address] [id number] [place] [address] May, [facility] [address] [id number] [place] [address] May, [facility] [address] [id number] [place] [address] May, [facility] [address] [id number] [place] [address] May, [facility] [address] [id number] [place] [address] May, [facility] [address] [id number] [place] [address] May, [facility] [address] [id number] [place] [address] May, [facility] [address] [id number] [place] [address] May, [facility] [address] [id number] [place] [address] May, [facility] [address] [id number] [place] [address] Apr, [facility] [address] [id number] [place] [address] Apr, [facility] [address] [id number] [place] [address] Mar, [facility] [address] [id number] [place] [address] Mar, [facility] [address] [id number] [place] [address] Feb, [facility] [address] [id number] [place] [address] Feb, [facility] [address] [id number] [place] [address] Nov, [facility] [address] [id number] [place] [address] 12 Nov, 2012 [facility] [address] [id number] [place] [address] Oct, [facility] [address] [facility] [id number] [facility] [place] [address] Oct, [facility] [address] [facility] [id number] [facility] [place] [address] Oct, [facility] [address] [id number] [facility] [place] [address] Oct, [facility] [address] [id number] [facility] [place] [address] Oct, [facility] [address] [facility] [id number] [facility] [place] [address] Sep, [facility] [address] [id number] [place] [address] Sep, [facility] [address] [id number] [place] [address] Sep, [facility] [address] [id number] [place] [address] Sep, [facility] [address] [id number] [place] [address] Aug, [facility] [address] [id number] [place] [address] Aug, [facility] [address] [id number] [place] [address] Aug, [facility] [address] [id number] [place] [address] Aug, [facility] [address] [id number] [place] [address] Jun, [facility] [address] [id number] [place] [address] 18 Jun, 2012 [facility] [address] [id number] [place] [address] Jun, [facility] [address] [id number] [place] [address] Jun, [facility] [address] [id number] [place] [address] 21 May, 2012 [facility] [address] [id number] [place] [address] 18 May, 2012 [facility] [address] [id number] [place] [address] 18 May, 2012 [facility] [address] [id number] [place] [address] 13 May, 2012 [facility] [address] [id number] [place] [address] 11 May, 2012 [facility] [address] [id number] [place] [address] 04 May, 2012 [facility] [address] [id number] [place] [address] 21 Apr, 2012 [facility] [address] [id number] [place] [address] 20 Apr, 2012 [facility] [address] [id number] [place] [address] 19 Apr, 2012 [facility] [address] [id number] [place] [address] Apr, [facility] [address] [id number] [place] [address] 19 Apr, 2012 [facility] [address] [id number] [place] [address] Feb, [facility] [address] [id number] [place] [address] Feb, [facility] [address] [id number] [place] [address] Feb, [facility] [address] [id number] [place] [address] Feb, [facility] [address] [id number] [place] [address] Feb, [facility] [address] [id number] [place] [address] Feb, [facility] [address] [facility] [id number] [place] [address] Feb, [facility] [address] [id number] [place] [address] Feb, [facility] [address] [id number] [place] [address] 14 Feb, 2012 [facility] [address] [id number] [place] [address] 14 Feb, 2012 [facility] [address] [id number] [place] [address] 13 Feb, 2012 [facility] [address] [id number] [place] [address] Feb, [facility] [address] [id number] [place] [address] Feb, [facility] [address] [id number] [place] [address] Feb, [facility] [address] [id number] [place] [address] Feb, [facility] [address] [id number] [place] [address] Feb, [facility] [address] [id number] [place] [address] Feb, [facility] [address] [id number] [place] [address] Feb, [facility] [address] [id number] [place] [address] Feb, [facility] [address] [id number] [place] [address] Feb, [facility] [address] [id number] [place] [address] Feb, [facility] [address] [id number] [place] [address] Feb, [facility] [address] [id number] [place] [address] Feb, [facility] [address] [id number] [place] [address] Feb, [facility] [address] [id number] [place] [address] Feb, [facility] [address] [id number] [place] [address] Feb, [facility] [address] [id number] [place] [address] Jan, [facility] [address] [id number] [place] [address] Jan, [facility] [address] [id number] [place] [address] Dec, [facility] [address] [id number] [place] [address] Dec, [facility] [address] [id number] [place] [address] Dec, [facility] [address] [id number] [place] [address] Dec, [facility] [address] [id number] [place] [address] Nov, [facility] [facility] [address] [id number] [place] [address] Nov, [facility] [address] [id number] [place] [address] Nov, [facility] [address] [id number] [place] [address] Nov, [facility] [id number] [place] [address] Oct, [facility] [address] [id number] [place] [address] Oct, [facility] [address] [id number] [place] [address] Sep, [facility] [address] [id number] [place] [address] Sep, [facility] [address] [id number] [place] [address] Sep, [facility] [address] [id number] [place] [address] Aug, [facility] [address] [id number] [place] [address] Aug, [facility] [address] [id number] [place] [address] Aug, [facility] [address] [id number] [place] [address] Aug, [facility] [address] [id number] [place] [address] Aug, [facility] [address] [id number] [place] [address] July, [facility] [address] [id number] [place] [address] July, [facility] [address] [id number] [place] [address] July, [facility] [address] [id number] [place] [address] July, [facility] [address] [id number] [place] [address] July, [facility] [address] [id number] [place] [address] Jun, [facility] [address] [id number] [place] [address] May, [facility] [address] [id number] [place] [address] 16 Apr, 2011 [facility] [address] [id number] [place] [address] Apr, [facility] [address] [id number] [place] [address] Apr, [facility] [address] [id number] [place] [address] Mar, [facility] [address] [id number] [place] [address] Mar, [facility] [address] [id number] [place] [address] Mar, [facility] [address] [id number] [place] [address] Mar, [facility] [address] [id number] [place] [address] Mar, [facility] [address] [id number] [place] [address] Mar, [facility] [address] [id number] [place] [address] Mar, [facility] [address] [id number] [place] [address] Mar, [facility] [address] [id number] [place] [address] Feb, [facility] [address] [id number] [place] [address] Feb, [facility] [address] [id number] [place] [address] Feb, [facility] [address] [id number] [place] [address] Feb, [facility] [address] [id number] [place] [address] Feb, [facility] [address] [id number] [place] [address] Jan, [facility] [address] [id number] [place] [address] Jan, [facility] [address] [id number] [place] [address] Jan, [facility] [address] [id number] [place] [address] 03 Jan, 2011 [facility] [address] [id number] [place] [address] 14 Dec, 2010 [facility] [address] [id number] [place] [address] 14 Dec, 2010 [facility] [address] [id number] [place] [address] 13 Sep, 2010 [facility] [address] [id number] [place] [address] July, [facility] [address] [id number] [place] [address] Apr, [facility] [address] [id number] [place] [address] Mar, [facility] [id number] [place] [address] 28 Feb, 2010 [facility] [id number] [place] [address] 20 Feb, 2010 [facility] [address] [id number] [place] [address] Feb, [facility] [address] [id number] [place] [address] Feb, [facility] [id number] [place] [address] 15 Feb, 2010 [facility] [address] [id number] [place] [address] Feb, [facility] [address] [id number] [place] [address] Feb, [facility] [id number] [place] [address] 25 Dec, 2009 [facility] [address] [id number] [place] [address] Jan, [facility] [id number] [place] [address] 14 Apr, 2008 IMMUNIZATIONS No Known Immunizations [...] Hospitalization History Hyperglycemia 2012 Hospitalization History [facility] 11/28/2015-12/04/20152015 Hospitalization History Schizophrenia 09/26/16 Hospitalization History AMS, UTI, hyponatremia-[facility] 10/21/16 Hospitalization History stent placed 02/02/17 Hospitalization History stent placed 02/2017 Hospitalization History [facility]- Syncope, Dehydration and Hypotension. 06/08/2017 Hospitalization History [facility]- Dehydrated 08/2018
--- OUTSIDE RECORDS SUMMARY | 2019-07-05 08:11 | XMS REPORT ---
Author Author Melina CALDERON Organization [facility] Address [address] [place] [address] Care Team Providers Care Dietetic Aide Name Role Phone WOOD CALDERON Unavailable PROBLEMS Type Condition ICD9-CM Code RIN96-IQ Code Onset Dates Condition S tatus SNOMED Code Problem Coronary artery disease invo lving [place] coronary artery of [place] heart without angina pectoris I25.10 Active 1641 521090625 Problem Bipolar affective disorder, current episode mixed, current episode severity unspecified F31.60 Active 6378717 08 Problem [facility] current use of insulin Z79.4 Active 235969891 Problem Chronic idiopathic constipation K59.04 Active 81491498 Problem Age-related incipient cataract of both eyes H25.09 3 Active 927482658 Problem 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 Active 124995643 Problem Essential hypertension I10 Active 15024640 Problem Diabetes E11.9 Active 23218782 Problem Diabetes 1.5, 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 060218501 Problem Slow transit constipation K59.01 Acti ve 74452486 Problem Food allergy Z91.018 Active 6697518 01 Problem Irritable bowel syndrome with both constipation and diarrh ea K58.2 Active 61842343 Problem Irritable bowel syndrome with diarrhea K58.0 Active 146409489 Problem Arthritis of back M47.9 Active 68 089517 Problem Pacemaker Z95.0 Active 889656571 Problem Type 2 diabetes mellitus with diabetic chronic kidney disease E11.22 Active 91419315 Problem Constipation K59.00 Active 6474275 8 Problem CVA (cerebral vascular accident) I63.9 Active 954231578 Problem Psychosis, unspecified psychosis type F29 Active 38381884 Problem Irritable bowel syndrome with both constipation and diarrh ea K58.2 Active 14326892 Problem [facility] (current) use of insulin Z79.4 Active 464332552 Problem Chronic kidney disease, stage 3 (moderate) N18.3 Active 579911854 Problem Irritable bowel syndrome with diarrhea K58.0 Active 583626124 ALLERGIES No Information ENCOUNTERS Encounter Location Date Diagnosis [place] [address] [address] Feb, Type 2 diabetes mellitus with diabetic c hronic kidney disease E11.22 ; Chronic kidney disease, stage 3 (moderate) N18.3 ; [facility] (current) use of insulin Z79.4 ; Weight loss R63.4 ; Colon cancer screening Z12.11 ; Irritable bowel syndrome with both constipation and diarrhea K58.2 ; Essential hypertension I10 ; Pacemaker Z95.0 and Food allergy Z91.018 [place] [address] [address] Jan, Diabetes E11.9 [place] [address] [address] Jan, [address] [facility] [address] Dec, Bipolar affective disorder, current episode mixed, current episode severity unspecified F31.60 [place] [address] [address] Dec, [place] [address] [address] Nov, Diabetes E11.9 [place] [address] [address] Oct, [place] [address] [address] Oct, [place] [address] [address] Sep, Generalized abdominal pain R10.84 ; Slow transit constipation K59.01 and Diabetes E11.9 [facility] [address] [facility] [id number] [address] [place] [address] Aug, Viral upper respiratory trac t infection J06.9 [facility] [address] [address] Aug, [facility] [address] [place] [id number] [place] [address] Aug, Bipolar affective disorder, current epis ode mixed, current episode severity unspecified F31.60 [facility] [address] [place] [id number] [place] [address] Aug, Bipolar affective disorder, current epis ode mixed, current episode severity unspecified F31.60 [facility] [address] [facility] [id number] [address] [place] [address] Aug, Viral upper respiratory trac t infection J06.9 [place] [address] [place] [id number] [place] [address] Aug, [place] [address] [place] [id number] [place] [address] Jun, Type 2 diabetes mellitus with diabetic c ataract E11.36 and [facility] current use of insulin Z79.4 [place] [address] [place] [id number] [place] [address] May, [facility] [address] [place] [id number] [place] [address] Apr, [place] [address] [address] Apr, Diabetes E11.9 [place] [address] [place] [id number] [place] [address] Apr, Bipolar affective disorder, current epis ode mixed, current episode severity unspecified F31.60 [facility] [address] [place] [id number] [place] [address] Apr, [place] [address] [address] Mar, [place] [address] [place] [id number] [place] [address] Mar, Psychosis, unspecified psychosis type F2 9 and Bipolar affective disorder, current episode mixed, current episode severity unspecified F31.60 [place] [address] [address] Mar, [facility] [address] [place] [address] Mar, Low back pain M54.5 and Arth ritis of back M47.9 [place] [address] [address] Mar, [facility] [address] [place] [id number] [place] [address] Feb, Abdominal pain R10.9 and Con stipation K59.00 [place] [address] [address] Feb, Vertigo R42 ; Type 2 diabetes mellitus w ith diabetic cataract E11.36 ; Hyperglycemia R73.9 and Essential hypertension I10 [place] [address] [address] Jan, [place] [address] [address] Dec, [place] [address] [address] Dec, [facility] [address] [place] [id number] [place] [address] Dec, Dizziness R42 and Diabetes 1 .5, 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 [place] [address] [address] Dec, [place] [address] [address] Dec, [place] [address] [address] Dec, Psychosis, unspecified psychosis type F2 9 and Bipolar affective disorder, current episode mixed, current episode severity unspecified F31.60 [place] [address] [address] Dec, [place] [address] [address] Dec, [place] [address] [address] Dec, Type 2 diabetes mellitus with diabetic c ataract E11.36 ; emt intermediate current use of insulin Z79.4 and Hyperglycemia R73.9 [place] [address] [address] Oct, [place] [address] [address] Oct, [place] [address] [address] Oct, [place] [address] [address] Sep, [facility] W[facility] IN [facility] [address] [facility] [id number] [address] [place] [address] Aug, Upper respiratory tract infe ction, unspecified type J06.9 ; Chronic idiopathic constipation K59.04 ; Fluid level behind tympanic membrane of both ears H65.93 and Abdominal pain R10.9 [place] [address] [address] July, Diabetes E11.9 [place] [address] [address] Jun, Dehydration E86.0 ; Diabetes E11.9 and H yperglycemia R73.9 [place] [address] [address] Jun, [place] [address] [address] Jun, Vertigo R42 ; Syncope, unspecified synco pe type R55 ; Diabetes E11.9 and Hyperglycemia R73.9 [place] [address] [address] May, Psychosis, unspecified psychosis type F2 9 and Bipolar affective disorder, current episode mixed, current episode severity unspecified F31.60 [facility] [address] [place] [id number] [place] [address] May, [facility] [address] [address] May, Diabetes E11.9 [facility] [address] [facility] [id number] [place] [id number] Apr, Dental examination Z01.20 and Dental car ies K02.9 [facility] [address] [address] Apr, Dental examination Z01.20 and Dental abs cess K04.7 [place] [address] [address] Mar, Psychosis, unspecified psychosis type F2 9 and Bipolar affective disorder, current episode mixed, current episode severity unspecified F31.60 [place] [address] [address] Mar, [facility] [address] [address] Feb, [facility] [address] [address] Feb, Left wrist pain M25.532 [place] [address] [address] Jan, [facility] [address] [address] Jan, Psychosis, unspecified psychosis type F2 9 and Bipolar affective disorder, current episode mixed, current episode severity unspecified F31.60 [facility] [address] [address] Jan, Diabetes E11.9 [facility] [address] [facility] [id number] [address] [place] [address] 07 Jan, 2017 Left wrist pain M25.532 [facility] [address] [address] Dec, Psychosis, unspecified psychosis type F2 9 and Bipolar affective disorder, current episode mixed, current episode severity unspecified F31.60 [facility] [address] [address] Dec, Syncope, unspecified syncope type R55 ; Vertigo R42 ; Diabetes E11.9 ; Psychosis, unspecified psychosis type F29 and Fall, initial encounter W19.XXXA [facility] [address] [address] Dec, Diabetes E11.9 ; Neck pain M54.2 and Fela tigo R42 [facility] [address] [address] 13 Nov, 2016 [facility] [address] [facility] [id number] [place] [address] 08 Nov, 2016 [facility] [address] [address] 08 Nov, 2016 [facility] [address] [address] 06 Nov, 2016 Diabetes E11.9 [facility] [address] [address] 05 Nov, 2016 Diabetes E11.9 [facility] [address] [address] Oct, [facility] [address] [place] [id number] [id number] Oct, [facility] [address] [address] Oct, [facility] [address] [address] Oct, Bipolar affective disorder, current epis ode mixed, current episode severity unspecified F31.60 [facility] [address] [place] [id number] [id number] Sep, [facility] [address] [address] Sep, Bipolar affective disorder, current epis ode mixed, current episode severity unspecified F31.60 [facility] IN [facility] [address] [place] [id number] [place] [address] Sep, Acute maxillary sinusitis, r ecurrence not specified J01.00 [facility] [address] [address] 07 Sep, 2016 Diabetes E11.9 [place] [address] [address] July, Diabetes E11.9 [place] [address] [address] July, Diabetes E11.9 [place] [address] [address] Jun, [place] [address] [address] May, Bipolar affective disorder, current epis ode mixed, current episode severity unspecified F31.60 [facility] IN [facility] [address] [place] [id number] [place] [address] May, Acute non-recurrent maxillar y sinusitis J01.00 [place] [address] [address] 10 Apr, 2016 Psychosis, unspecified psychosis type F2 9 and Bipolar affective disorder, current episode mixed, current episode severity unspecified F31.60 [facility] IN [facility] [address] [place] [id number] [place] [address] Apr, Dysuria R30.0 ; Other viral agents as the cause of diseases classified elsewhere B97.89 and Acute upper respiratory infection, unspecified J06.9 [place] [address] [address] Mar, Diabetes E11.9 ; Urine leukocytes R82.99 and Psychosis, unspecified psychosis type F29 [place] [address] [address] Mar, Diabetes E11.9 [facility] [address] [place] [id number] [place] [address] Feb, [facility] [address] [address] Jan, [facility] [address] [address] Dec, Psychosis, unspecified psychosis type F2 9 [facility] [address] [address] Dec, [facility] [address] [place] [address] Dec, [facility] [address] [address] Dec, Psychosis, unspecified psychosis type F2 9 [facility] [address] [address] Nov, Schizoaffective disorder, unspecified ty pe F25.9 [facility] [address] [address] Oct, [facility] [address] [place] [address] Oct, Conjunctivitis of right eye, unspecified conjunctivitis type H10.9 [facility] [address] [place] [id number] [place] [address] Aug, [facility] [address] [facility] [place] [id number] Jun, Encounter for dental examination Z01.20 [facility] [address] [place] [id number] [place] [address] Jun, Diabetes E11.9 and Bipolar affect, depre ssed F31.30 [facility] [address] [address] Jun, Other bipolar disorder F31.89 [place] [address] [address] Jun, [facility] [place] [facility] [address] [facility] [id number] [facility] [address] Apr, [facility] [place] [facility] [address] [facility] [id number] [facility] [place] [place] [address] Dec, [facility] [place] [facility] [address] [id number] [facility] [place] [place] [address] Dec, [facility] [place] [facility] [address] [id number] [place] [address] Sep, [facility] [place] [facility] [address] [facility] [id number] [facility] [place] [place] [address] Jun, [facility] [place] [facility] [address] [id number] [place] [address] Jun, [facility] [place] [facility] [address] [id number] [place] [address] Mar, [facility] [place] [facility] [address] [id number] [place] [address] Mar, [facility] [place] [facility] [address] [id number] [facility] [place] [place] [address] Nov, [facility] [place] [facility] [address] [id number] [facility] [place] [address] Nov, [facility] [place] [facility] [address] [id number] [place] [address] Sep, [facility] [place] [facility] [address] [id number] [place] [address] Sep, 2013 [facility] [place] [facility] [address] [id number] [facility] [place] [address] Sep, [facility] [place] [facility] [address] [id number] [place] [address] Sep, 2013 [facility] [place] [facility] [address] [id number] [place] [address] Sep, [facility] [place] [facility] [address] [id number] [facility] [place] [address] Aug, [facility] [place] [facility] [address] [id number] [place] [address] Aug, [facility] [place] [facility] [address] [id number] [facility] [place] [address] Aug, [facility] [place] [facility] [address] [facility] [id number] [place] [address] Aug, [facility] [place] [facility] [address] [id number] [place] [address] Aug, [facility] [place] [facility] [address] [id number] [place] [address] Aug, [facility] [place] [facility] [address] [id number] [place] [address] July, [facility] [place] [facility] [address] [id number] [place] [address] July, [facility] [place] [facility] [address] [id number] [place] [address] Jun, [facility] [place] [facility] [address] [id number] [place] [address] Jun, [facility] [place] [facility] [address] [id number] [place] [address] Jun, [facility] [place] [facility] [address] [id number] [place] [address] Jun, [facility] [place] [facility] [address] [id number] [place] [address] Jun, [facility] [place] [facility] [address] [id number] [place] [address] Jun, [facility] [place] [facility] [address] [id number] [place] [address] Jun, [facility] [place] [facility] [address] [id number] [place] [address] Jun, [facility] [place] [facility] [address] [id number] [place] [address] May, [facility] [place] [facility] [address] [id number] [place] [address] May, [facility] [place] [facility] [address] [id number] [place] [address] May, [facility] [place] [facility] [address] [id number] [place] [address] May, [facility] [place] [facility] [address] [id number] [place] [address] May, [facility] [place] [facility] [address] [id number] [place] [address] May, [facility] [place] [facility] [address] [id number] [place] [address] May, [facility] [place] [facility] [address] [id number] [place] [address] May, [facility] [place] [facility] [address] [id number] [place] [address] May, [facility] [place] [facility] [address] [id number] [place] [address] Apr, [facility] [place] [facility] [address] [id number] [place] [address] Apr, [facility] [place] [facility] [address] [id number] [place] [address] Mar, [facility] [place] [facility] [address] [id number] [place] [address] Mar, [facility] [place] [facility] [address] [id number] [place] [address] Feb, [facility] [place] [facility] [address] [id number] [place] [address] Feb, [facility] [place] [facility] [address] [id number] [place] [address] Nov, [facility] [place] [facility] [address] [id number] [place] [address] 12 Nov, 2012 [facility] [place] [facility] [address] [id number] [place] [address] Oct, [facility] [place] [facility] [address] [id number] [place] [address] 08 Oct, 2012 [facility] [place] [facility] [address] [facility] [id number] [facility] [place] [address] Oct, [facility] [place] [facility] [address] [facility] [id number] [facility] [place] [address] Oct, [facility] [place] [facility] [address] [id number] [facility] [place] [address] Oct, [facility] [place] [facility] [address] [id number] [facility] [place] [address] Sep, [facility] [place] [facility] [address] [facility] [id number] [facility] [place] [address] Sep, [facility] [place] [facility] [address] [id number] [place] [address] Sep, [facility] [place] [facility] [address] [id number] [place] [address] Sep, [facility] [place] [facility] [address] [id number] [place] [address] Aug, [facility] [place] [facility] [address] [id number] [place] [address] Aug, [facility] [place] [facility] [address] [id number] [place] [address] Aug, [facility] [place] [facility] [address] [id number] [place] [address] Aug, [facility] [place] [facility] [address] [id number] [place] [address] Jun, [facility] [place] [facility] [address] [facility] [id number] [place] [address] 18 Jun, 2012 [facility] [place] [facility] [address] [id number] [place] [address] Jun, [facility] [place] [facility] [address] [id number] [place] [address] Jun, [facility] [place] [facility] [address] [id number] [place] [address] May, [facility] [place] [facility] [address] [id number] [place] [address] 18 May, 2012 [facility] [place] [facility] [address] [id number] [place] [address] 18 May, 2012 [facility] [place] [facility] [address] [id number] [place] [address] 13 May, 2012 [facility] [place] [facility] [address] [id number] [place] [address] 11 May, 2012 [facility] [place] [facility] [address] [id number] [place] [address] 04 May, 2012 [facility] [place] [facility] [address] [id number] [place] [address] 21 Apr, 2012 [facility] [place] [facility] [address] [id number] [place] [address] 20 Apr, 2012 [facility] [place] [facility] [address] [id number] [place] [address] Apr, [facility] [place] [facility] [address] [id number] [place] [address] Apr, [facility] [place] [facility] [address] [id number] [place] [address] Apr, [facility] [place] [facility] [address] [id number] [place] [address] Feb, [facility] [place] [facility] [address] [id number] [place] [address] Feb, [facility] [place] [facility] [address] [id number] [place] [address] Feb, [facility] [place] [facility] [address] [id number] [place] [address] Feb, [facility] [place] [facility] [address] [id number] [place] [address] Feb, [facility] [place] [facility] [address] [id number] [place] [address] Feb, [facility] [place] [facility] [address] [id number] [place] [address] Feb, [facility] [place] [facility] [address] [id number] [place] [address] 19 Feb, 2012 [facility] [place] [facility] [address] [id number] [place] [address] 14 Feb, 2012 [facility] [place] [facility] [address] [id number] [place] [address] 14 Feb, 2012 [facility] [place] [facility] [address] [id number] [place] [address] Feb, [facility] [place] [facility] [address] [id number] [place] [address] Feb, [facility] [place] [facility] [address] [id number] [place] [address] Feb, [facility] [place] [facility] [address] [id number] [place] [address] Feb, [facility] [place] [facility] [address] [id number] [place] [address] Feb, [facility] [place] [facility] [address] [id number] [place] [address] Feb, [facility] [address] [id number] [place] [address] Feb, [facility] [address] [id number] [place] [address] Feb, [facility] [address] [id number] [place] [address] Feb, [facility] [address] [id number] [place] [address] Feb, [facility] [address] [id number] [place] [address] Feb, [facility] [address] [id number] [place] [address] Feb, [facility] [address] [id number] [place] [address] Feb, [facility] [address] [id number] [place] [address] Feb, [facility] [address] [id number] [place] [address] Feb, [facility] [address] [id number] [place] [address] Feb, [facility] [address] [id number] [place] [address] Jan, [facility] [address] [id number] [place] [address] Jan, [facility] [address] [id number] [place] [address] Dec, [facility] [address] [id number] [place] [address] Dec, [facility] [address] [id number] [place] [address] Dec, [facility] [address] [id number] [place] [address] Dec, [facility] [address] [id number] [place] [address] Nov, [facility] [address] [id number] [place] [address] Nov, [facility] [address] [id number] [place] [address] Nov, [facility] [address] [id number] [place] [address] Nov, [facility] [address] [id number] [place] [address] Oct, [facility] [address] [id number] [place] [address] Oct, [facility] [address] [id number] [place] [address] Sep, [facility] [address] [id number] [place] [address] Sep, [facility] [address] [facility] [id number] [place] [address] Sep, [facility] [address] [id number] [place] [address] Aug, [facility] [address] [id number] [place] [address] Aug, [facility] [address] [id number] [place] [address] 14 Aug, 2011 [facility] [address] [id number] [place] [address] Aug, [facility] [address] [id number] [place] [address] Aug, [facility] [address] [id number] [place] [address] July, [facility] [address] [id number] [place] [address] July, [facility] [address] [id number] [place] [address] July, [facility] [address] [id number] [place] [address] July, [facility] [address] [id number] [place] [address] July, [facility] [address] [id number] [place] [address] Jun, [facility] [address] [id number] [place] [address] May, [facility] [address] [id number] [place] [address] 16 Apr, 2011 [facility] [address] [id number] [place] [address] Apr, [facility] [address] [id number] [place] [address] Apr, [facility] [address] [id number] [place] [address] Mar, [facility] [address] [id number] [place] [address] Mar, [facility] [address] [id number] [place] [address] Mar, [facility] [address] [id number] [place] [address] Mar, [facility] [address] [id number] [place] [address] Mar, [facility] [address] [facility] [id number] [place] [address] Mar, [facility] [address] [id number] [place] [address] Mar, [facility] [address] [id number] [place] [address] Mar, [facility] [address] [id number] [place] [address] Feb, [facility] [address] [id number] [place] [address] Feb, [facility] [address] [id number] [place] [address] Feb, [facility] [address] [id number] [place] [address] Feb, [facility] [address] [id number] [place] [address] Feb, [facility] [address] [id number] [place] [address] Jan, [facility] [address] [id number] [place] [address] Jan, [facility] [address] [id number] [place] [address] Jan, [facility] [address] [id number] [place] [address] Jan, [facility] [id number] [place] [address] 14 Dec, 2010 [facility] [id number] [place] [address] 14 Dec, 2010 [facility] [id number] [place] [address] Sep, [facility] [id number] [place] [address] July, [facility] [id number] [place] [address] Apr, [facility] [id number] [place] [address] Mar, [facility] [id number] [place] [address] Feb, [facility] [id number] [place] [address] Feb, [facility] [id number] [place] [address] Feb, [facility] [id number] [place] [address] Feb, [facility] [id number] [place] [address] Feb, [facility] [id number] [place] [address] Feb, [facility] [id number] [place] [address] Feb, [facility] [id number] [place] [address] Dec, [facility] [id number] [place] [address] Jan, [facility] [id number] [place] [address] 14 Apr, 2008 IMMUNIZATIONS No Known Immunizations [...] Hyperglycemia 2012 Hospitalization History [facility] 11/28/2015-12/04/20152015 Hospitalization History Schizophrenia 09/26/16 Hospitalization History AMS, UTI, [facility]at[facility] 10/21/16 Hospitalization History stent placed 02/02/17 Hospitalization History stent placed 02/2017 Hospitalization History [facility]- Syncope, Dehydration and Hypotension. 06/08/2017 Hospitalization History [facility]- Dehydrated 08/2018
--- OUTSIDE RECORDS SUMMARY | 2019-07-05 08:12 | XMS REPORT ---
Author Author Melina Jeffery Doctor Organization [facility] Address Unknown Phone Unavailable Care Team Providers Care County Assessor Name Role Phone Migration, Doctor Unavailable Unavailable PROBLEMS Type Condition ICD9-CM Code DMV42-MI Code Onset Dates Condition S tatus SNOMED Code Problem Coronary artery disease invo lving [place] coronary artery of [place] heart without angina pectoris I25.10 Active 1641 [id number] Problem Bipolar affective disorder, current episode mixed, current episode severity unspecified F31.60 Active 5204941 08 Problem group home current use of insulin Z79.4 Active 849060839 Problem Chronic idiopathic constipation K59.04 Active 58093107 Problem Age-related incipient cataract of both eyes H25.09 3 Active 531778829 Problem 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 Active 436316844 Problem Essential hypertension I10 Active 98025431 Problem Diabetes E11.9 Active 82430344 Problem Diabetes 1.5, 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 047219060 Problem Slow transit constipation K59.01 Acti ve 75812399 Problem Food allergy Z91.018 Active 6272667 01 Problem Irritable bowel syndrome with both constipation and diarrh ea K58.2 Active 20814508 Problem Irritable bowel syndrome with diarrhea K58.0 Active 673712470 Problem Arthritis of back M47.9 Active 68 282686 Problem Pacemaker Z95.0 Active 885109043 Problem Type 2 diabetes mellitus with diabetic chronic kidney disease E11.22 Active 49254682 Problem Constipation K59.00 Active 2981004 8 Problem CVA (cerebral vascular accident) I63.9 Active 082979722 Problem Psychosis, unspecified psychosis type F29 Active 98649458 Problem Irritable bowel syndrome with both constipation and diarrh ea K58.2 Active 34611159 Problem 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 Active 320847124 Problem Chronic kidney disease, stage 3 (moderate) N18.3 Active 354712075 Problem Irritable bowel syndrome with diarrhea K58.0 Active 828839452 ALLERGIES No Information ENCOUNTERS Encounter Location Date Diagnosis [facility] [id number] [place] [address] 09 Feb, 2019 Type 2 diabetes mellitus with diabetic c hronic kidney disease E11.22 ; Chronic kidney disease, stage 3 (moderate) N18.3 ; group home (current) use of insulin Z79.4 ; Weight loss R63.4 ; Colon cancer screening Z12.11 ; Irritable bowel syndrome with both constipation and diarrhea K58.2 ; Essential hypertension I10 ; Pacemaker Z95.0 and Food allergy Z91.018 [facility] [address] [address] 08 Jan, 2019 Diabetes E11.9 [place] [address] [address] Jan, [address] [id number] [place] [address] Dec, Bipolar affective disorder, current episode mixed, current episode severity unspecified F31.60 [place] [address] [address] Dec, [place] [address] [address] Nov, Diabetes E11.9 [place] [address] [address] Oct, [facility] [address] [address] Oct, [place] [address] [address] Sep, Generalized abdominal pain R10.84 ; Slow transit constipation K59.01 and Diabetes E11.9 [facility] [address] [facility] [id number] [address] [place] [address] Aug, Viral upper respiratory trac t infection J06.9 [facility] [id number] [place] [address] Aug, [facility] [address] [address] Aug, Bipolar affective disorder, current epis ode mixed, current episode severity unspecified F31.60 [place] [address] [address] Aug, Bipolar affective disorder, current epis ode mixed, current episode severity unspecified F31.60 [facility] [address] [id number] [address] [place] [address] Aug, Viral upper respiratory trac t infection J06.9 [place] [address] [address] Aug, [place] [address] [address] Jun, Type 2 diabetes mellitus with diabetic c ataract E11.36 and group home current use of insulin Z79.4 [place] [address] [address] May, [place] [address] [address] Apr, [place] [address] [address] Apr, Diabetes E11.9 [place] [address] [address] Apr, Bipolar affective disorder, current epis ode mixed, current episode severity unspecified F31.60 [place] [address] [address] Apr, [place] [address] [address] Mar, [place] [address] [address] Mar, Psychosis, unspecified psychosis type F2 9 and Bipolar affective disorder, current episode mixed, current episode severity unspecified F31.60 [place] [address] [address] Mar, [facility] [address] [place] [address] Mar, Low back pain M54.5 and Arth ritis of back M47.9 [place] [address] [address] Mar, [facility] [id number] [place] [address] Feb, Abdominal pain R10.9 and Con stipation K59.00 [place] [address] [address] Feb, Vertigo R42 ; Type 2 diabetes mellitus w ith diabetic cataract E11.36 ; Hyperglycemia R73.9 and Essential hypertension I10 [place] [address] [address] Jan, [place] [address] [address] Dec, [place] [address] [address] Dec, [facility] [address] [address] Dec, Dizziness R42 and Diabetes 1 .5, 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 [place] [address] [address] Dec, [place] [address] [address] Dec, [place] [address] [address] Dec, Psychosis, unspecified psychosis type F2 9 and Bipolar affective disorder, current episode mixed, current episode severity unspecified F31.60 [place] [address] [address] Dec, [place] [address] [address] Dec, [place] [address] [address] Dec, Type 2 diabetes mellitus with diabetic c ataract E11.36 ; group home current use of insulin Z79.4 and Hyperglycemia R73.9 [place] [address] [address] Oct, [place] [address] [address] Oct, [place] [address] [address] Oct, [place] [address] [address] Sep, [facility] [address] [facility] [id number] [address] [place] [address] Aug, Upper respiratory tract infe ction, unspecified type J06.9 ; Chronic idiopathic constipation K59.04 ; Fluid level behind tympanic membrane of both ears H65.93 and Abdominal pain R10.9 [place] [address] [address] July, Diabetes E11.9 [place] [address] [address] Jun, Dehydration E86.0 ; Diabetes E11.9 and H yperglycemia R73.9 [place] [address] [address] Jun, [place] [address] [address] Jun, Vertigo R42 ; Syncope, unspecified synco pe type R55 ; Diabetes E11.9 and Hyperglycemia R73.9 [place] [address] [address] May, Psychosis, unspecified psychosis type F2 9 and Bipolar affective disorder, current episode mixed, current episode severity unspecified F31.60 [place] [address] [address] May, [facility] [id number] [place] [address] May, Diabetes E11.9 [facility] [address] [id number] [place] [id number] Apr, Dental examination Z01.20 and Dental car ies K02.9 [place] [id number] [place] [address] Apr, Dental examination Z01.20 and Dental abs cess K04.7 [place] [id number] [place] [address] Mar, Psychosis, unspecified psychosis type F2 9 and Bipolar affective disorder, current episode mixed, current episode severity unspecified F31.60 [facility] [id number] [place] [address] Mar, [place] [address] [address] Feb, [facility] [address] [address] Feb, Left wrist pain M25.532 [place] [address] [address] Jan, [facility] [id number] [place] [address] Jan, Psychosis, unspecified psychosis type F2 9 and Bipolar affective disorder, current episode mixed, current episode severity unspecified F31.60 [facility] [id number] [place] [address] Jan, Diabetes E11.9 [facility] [address] [facility] [id number] [address] [place] [address] Jan, Left wrist pain M25.532 [facility] [id number] [place] [address] Dec, Psychosis, unspecified psychosis type F2 9 and Bipolar affective disorder, current episode mixed, current episode severity unspecified F31.60 [facility] [address] [address] Dec, Syncope, unspecified syncope type R55 ; Vertigo R42 ; Diabetes E11.9 ; Psychosis, unspecified psychosis type F29 and Fall, initial encounter W19.XXXA [place] [address] [address] Dec, Diabetes E11.9 ; Neck pain M54.2 and Fela tigo R42 [place] [address] [address] Nov, [facility] [address] [facility] [id number] [address] [place] [address] 08 Nov, 2016 [place] [address] [address] 08 Nov, 2016 [place] [address] [address] Nov, Diabetes E11.9 [place] [address] [address] 05 Nov, 2016 Diabetes E11.9 [place] [address] [address] Oct, [place] [address] [place] [id number] [place] [id number] Oct, [place] [address] [address] Oct, [place] [address] [address] Oct, Bipolar affective disorder, current epis ode mixed, current episode severity unspecified F31.60 [place] [address] [place] [id number] [place] [id number] Sep, [place] [address] [address] Sep, Bipolar affective disorder, current epis ode mixed, current episode severity unspecified F31.60 [facility] [id number] [place] [address] 10 Sep, 2016 Acute maxillary sinusitis, r ecurrence not specified J01.00 [facility] [address] [address] 07 Sep, 2016 Diabetes E11.9 [place] [address] [address] July, Diabetes E11.9 [place] [address] [address] July, Diabetes E11.9 [place] [address] [address] Jun, [place] [address] [address] May, Bipolar affective disorder, current epis ode mixed, current episode severity unspecified F31.60 [facility] [id number] [place] [address] May, Acute non-recurrent maxillar y sinusitis J01.00 [place] [address] [address] 10 Apr, 2016 Psychosis, unspecified psychosis type F2 9 and Bipolar affective disorder, current episode mixed, current episode severity unspecified F31.60 [facility] [place] [id number] [place] [address] Apr, Dysuria R30.0 ; Other viral agents as the cause of diseases classified elsewhere B97.89 and Acute upper respiratory infection, unspecified J06.9 [place] [address] [address] Mar, Diabetes E11.9 ; Urine leukocytes R82.99 and Psychosis, unspecified psychosis type F29 [place] [address] [address] Mar, Diabetes E11.9 [place] [address] [address] Feb, [facility] [address] [address] Jan, [facility] [address] [address] Dec, Psychosis, unspecified psychosis type F2 9 [facility] [address] [address] Dec, [facility] [address] [place] [address] Dec, [facility] [address] [address] Dec, Psychosis, unspecified psychosis type F2 9 [facility] [place] [address] [address] Nov, Schizoaffective disorder, unspecified ty pe F25.9 [place] [address] [address] 16 Oct, 2015 [facility] [id number] [place] [address] Oct, Conjunctivitis of right eye, unspecified conjunctivitis type H10.9 [place] [id number] [place] [address] Aug, [facility] [address] [id number] [place] [id number] Jun, Encounter for dental examination Z01.20 [place] [address] [address] Jun, Diabetes E11.9 and Bipolar affect, depre ssed F31.30 [place] [address] [address] Jun, Other bipolar disorder F31.89 [place] [address] [address] 13 Jun, 2015 [facility] [address] [address] Apr, [facility] [place] [facility] [address] [facility] [id number] [facility] [place] [address] Dec, [facility] [place] [facility] [address] [facility] [id number] [facility] [place] [address] Dec, [facility] [place] [facility] [address] [id number] [facility] [place] [address] Sep, [facility] [place] [facility] [address] [id number] [facility] [place] [address] Jun, [facility] [place] [facility] [address] [facility] [id number] [facility] [place] [address] Jun, [facility] [place] [facility] [address] [id number] [place] [address] Mar, [facility] [place] [facility] [address] [id number] [place] [address] Mar, [facility] [place] [facility] [address] [id number] [place] [address] Nov, [facility] [place] [facility] [address] [id number] [place] [address] Nov, [facility] [place] [facility] [address] [id number] [facility] [place] [address] Sep, [facility] [place] [facility] [address] [id number] [place] [address] Sep, [facility] [place] [facility] [address] [id number] [place] [address] Sep, 2013 [facility] [place] [facility] [address] [id number] [place] [address] Sep, [facility] [place] [facility] [address] [id number] [place] [address] Sep, [facility] [place] [facility] [address] [id number] [place] [address] Aug, [facility] [place] [facility] [address] [id number] [place] [address] Aug, [facility] [place] [facility] [address] [id number] [place] [address] Aug, [facility] [place] [facility] [address] [facility] [id number] [facility] [place] [address] Aug, [facility] [place] [facility] [address] [id number] [place] [address] Aug, [facility] [place] [facility] [address] [id number] [place] [address] Aug, [facility] [place] [facility] [address] [id number] [place] [address] July, [facility] [place] [facility] [address] [id number] [place] [address] July, [facility] [place] [facility] [address] [id number] [place] [address] Jun, [facility] [place] [facility] [address] [id number] [place] [address] Jun, [facility] [place] [facility] [address] [id number] [place] [address] Jun, [facility] [place] [facility] [address] [id number] [place] [address] Jun, [facility] [place] [facility] [address] [id number] [place] [address] Jun, [facility] [place] [facility] [address] [id number] [place] [address] Jun, [facility] [place] [facility] [address] [id number] [place] [address] Jun, [facility] [place] [facility] [address] [facility] [id number] [place] [address] Jun, [facility] [place] [facility] [address] [id number] [place] [address] May, [facility] [place] [facility] [address] [id number] [place] [address] May, [facility] [place] [facility] [address] [id number] [place] [address] May, [facility] [place] [facility] [address] [id number] [place] [address] May, [facility] [place] [facility] [address] [id number] [place] [address] May, [facility] [place] [facility] [address] [id number] [place] [address] May, [facility] [place] [facility] [address] [id number] [place] [address] May, [facility] [place] [facility] [address] [id number] [place] [address] May, [facility] [place] [facility] [address] [id number] [place] [address] May, [facility] [place] [facility] [address] [id number] [place] [address] Apr, [facility] [place] [facility] [address] [id number] [place] [address] Apr, [facility] [place] [facility] [address] [id number] [place] [address] Mar, [facility] [place] [facility] [address] [id number] [place] [address] Mar, [facility] [place] [facility] [address] [id number] [place] [address] Feb, [facility] [place] [facility] [address] [id number] [place] [address] Feb, [facility] [place] [facility] [address] [id number] [place] [address] Nov, [facility] [place] [facility] [address] [id number] [place] [address] Nov, [facility] [place] [facility] [address] [id number] [place] [address] Oct, [facility] [place] [facility] [address] [id number] [place] [address] Oct, [facility] [place] [facility] [address] [id number] [place] [address] 08 Oct, 2012 [facility] [place] [facility] [address] [facility] [id number] [facility] [place] [address] Oct, [facility] [place] [facility] [address] [facility] [id number] [facility] [place] [address] Oct, [facility] [place] [facility] [address] [id number] [facility] [place] [address] Sep, [facility] [place] [facility] [address] [id number] [facility] [place] [address] Sep, [facility] [place] [facility] [address] [facility] [id number] [facility] [place] [address] Sep, [facility] [place] [facility] [address] [id number] [place] [address] Sep, [facility] [place] [facility] [address] [id number] [place] [address] Aug, [facility] [place] [facility] [address] [id number] [place] [address] Aug, [facility] [place] [facility] [address] [id number] [place] [address] Aug, [facility] [place] [facility] [address] [id number] [place] [address] Aug, [facility] [place] [facility] [address] [id number] [place] [address] Jun, [facility] [place] [facility] [address] [id number] [place] [address] Jun, [facility] [place] [facility] [address] [facility] [id number] [place] [address] Jun, [facility] [place] [facility] [address] [id number] [place] [address] Jun, [facility] [place] [facility] [address] [id number] [place] [address] May, [facility] [place] [facility] [address] [id number] [place] [address] May, [facility] [place] [facility] [address] [id number] [place] [address] 18 May, 2012 [facility] [place] [facility] [address] [id number] [place] [address] 13 May, 2012 [facility] [place] [facility] [address] [id number] [place] [address] 11 May, 2012 [facility] [place] [facility] [address] [id number] [place] [address] 04 May, 2012 [facility] [place] [facility] [address] [id number] [place] [address] 21 Apr, 2012 [facility] [place] [facility] [address] [id number] [place] [address] Apr, [facility] [place] [facility] [address] [id number] [place] [address] Apr, [facility] [place] [facility] [address] [id number] [place] [address] Apr, [facility] [place] [facility] [address] [id number] [place] [address] Apr, [facility] [place] [facility] [address] [id number] [place] [address] Feb, [facility] [place] [facility] [address] [id number] [place] [address] Feb, [facility] [place] [facility] [address] [id number] [place] [address] Feb, [facility] [place] [facility] [address] [id number] [place] [address] Feb, [facility] [place] [facility] [address] [id number] [place] [address] Feb, [facility] [place] [facility] [address] [id number] [place] [address] Feb, [facility] [place] [facility] [address] [id number] [place] [address] Feb, [facility] [place] [facility] [address] [id number] [place] [address] Feb, [facility] [place] [facility] [address] [id number] [place] [address] 14 Feb, 2012 [facility] [place] [facility] [address] [id number] [place] [address] 14 Feb, 2012 [facility] [place] [facility] [address] [id number] [place] [address] 13 Feb, 2012 [facility] [place] [facility] [address] [id number] [place] [address] Feb, [facility] [place] [facility] [address] [id number] [place] [address] Feb, [facility] [place] [facility] [address] [id number] [place] [address] Feb, [facility] [place] [facility] [address] [id number] [place] [address] Feb, [facility] [place] [facility] [address] [id number] [place] [address] Feb, [facility] [place] [facility] [address] [id number] [place] [address] Feb, [facility] [place] [facility] [address] [id number] [place] [address] Feb, [facility] [place] [facility] [address] [id number] [place] [address] Feb, [facility] [place] [facility] [address] [id number] [place] [address] Feb, [facility] [place] [facility] [address] [id number] [place] [address] Feb, [facility] [place] [facility] [address] [facility] [id number] [place] [address] Feb, [facility] [address] [id number] [place] [address] Feb, [facility] [address] [id number] [place] [address] Feb, [facility] [address] [id number] [place] [address] Feb, [facility] [address] [facility] [id number] [place] [address] Feb, [facility] [address] [id number] [place] [address] Jan, [facility] [address] [id number] [place] [address] Jan, [facility] [address] [id number] [place] [address] Dec, [facility] [address] [facility] [id number] [facility] [place] [address] Dec, [facility] [address] [id number] [place] [address] Dec, [facility] [address] [id number] [place] [address] Dec, [facility] [address] [id number] [place] [address] Nov, [facility] [address] [id number] [place] [address] Nov, [facility] [address] [id number] [place] [address] Nov, [facility] [address] [id number] [place] [address] Nov, [facility] [address] [id number] [place] [address] Oct, [facility] [address] [id number] [place] [address] Oct, [facility] [address] [id number] [place] [address] Sep, [facility] [address] [id number] [place] [address] Sep, [facility] [address] [id number] [place] [address] Sep, [facility] [address] [facility] [id number] [place] [address] Aug, [facility] [address] [id number] [place] [address] Aug, [facility] [address] [id number] [place] [address] 14 Aug, 2011 [facility] [address] [id number] [place] [address] Aug, [facility] [address] [id number] [place] [address] Aug, [facility] [address] [id number] [place] [address] July, [facility] [address] [id number] [place] [address] July, [facility] [address] [id number] [place] [address] July, [facility] [address] [id number] [place] [address] July, [facility] [address] [id number] [place] [address] July, [facility] [address] [id number] [place] [address] Jun, [facility] [address] [id number] [place] [address] May, [facility] [address] [id number] [place] [address] 16 Apr, 2011 [facility] [address] [id number] [place] [address] Apr, [facility] [address] [id number] [place] [address] Apr, [facility] [address] [id number] [place] [address] Mar, [facility] [address] [id number] [place] [address] Mar, [facility] [address] [id number] [place] [address] Mar, [facility] [address] [id number] [place] [address] Mar, [facility] [address] [id number] [place] [address] Mar, [facility] [address] [id number] [place] [address] Mar, [facility] [address] [id number] [place] [address] 16 Mar, 2011 [facility] [address] [id number] [place] [address] Mar, [facility] [address] [id number] [place] [address] Feb, [facility] [address] [id number] [place] [address] Feb, [facility] [address] [id number] [place] [address] Feb, [facility] [address] [id number] [place] [address] Feb, [facility] [address] [id number] [place] [address] Feb, [facility] [address] [id number] [place] [address] Jan, [facility] [address] [id number] [place] [address] Jan, [facility] [address] [id number] [place] [address] Jan, [facility] [address] [id number] [place] [address] Jan, [facility] [address] [id number] [place] [address] 14 Dec, 2010 [facility] [id number] [place] [address] 14 Dec, 2010 [facility] [id number] [place] [address] Sep, [facility] [id number] [place] [address] July, [facility] [id number] [place] [address] 11 Apr, 2010 [facility] [id number] [place] [address] Mar, [facility] [id number] [place] [address] Feb, [facility] [id number] [place] [address] Feb, [facility] [id number] [place] [address] Feb, [facility] [id number] [place] [address] Feb, [facility] [id number] [place] [address] Feb, [facility] [id number] [place] [address] Feb, [facility] [id number] [place] [address] Feb, [facility] [id number] [place] [address] Dec, [facility] [id number] [place] [address] Jan, [facility] [id number] [place] [address] 14 Apr, 2008 IMMUNIZATIONS No Known Immunizations [...] Surgery Hospitalization History Hyperglycemia 2012 Hospitalization History [facility] h Unit 11/28/2015-12/04/20152015 Hospitalization History Schizophrenia 09/26/16 Hospitalization History AMS, UTI, hyponatremia-[facility] 10/21/16 Hospitalization History stent placed 02/02/17 Hospitalization History stent placed 02/2017 Hospitalization History [facility]- Syncope, Dehydration and Hypotension. 06/08/2017 Hospitalization History [facility]- Dehydrated 08/2018
--- OUTSIDE RECORDS SUMMARY | 2019-07-05 08:12 | XMS REPORT ---
Author Author Melina Jeffery Doctor Organization [facility] Address Unknown Phone Unavailable Care Team Providers Care Retail Management Keyholder Name Role Phone Migration, Doctor Unavailable Unavailable PROBLEMS Type Condition ICD9-CM Code WOC25-RG Code Onset Dates Condition S tatus SNOMED Code Problem Coronary artery disease invo lving [place] coronary artery of [place] heart without angina pectoris I25.10 Active 1641 [id number] Problem Bipolar affective disorder, current episode mixed, current episode severity unspecified F31.60 Active 7820753 08 Problem group home current use of insulin Z79.4 Active 810254806 Problem Chronic idiopathic constipation K59.04 Active 92437656 Problem Age-related incipient cataract of both eyes H25.09 3 Active 304656377 Problem 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 Active 849142057 Problem Essential hypertension I10 Active 33428686 Problem Diabetes E11.9 Active 59291300 Problem Diabetes 1.5, 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 855840168 Problem Slow transit constipation K59.01 Acti ve 64137024 Problem Food allergy Z91.018 Active 2243893 01 Problem Irritable bowel syndrome with both constipation and diarrh ea K58.2 Active 53878631 Problem Irritable bowel syndrome with diarrhea K58.0 Active 429246732 Problem Arthritis of back M47.9 Active 68 790139 Problem Pacemaker Z95.0 Active 388431178 Problem Type 2 diabetes mellitus with diabetic chronic kidney disease E11.22 Active 59874928 Problem Constipation K59.00 Active 1690530 8 Problem CVA (cerebral vascular accident) I63.9 Active 542346094 Problem Psychosis, unspecified psychosis type F29 Active 14128309 Problem Irritable bowel syndrome with both constipation and diarrh ea K58.2 Active 80440246 Problem superintendent terminal (current) use of insulin Z79.4 Active 368192979 Problem Chronic kidney disease, stage 3 (moderate) N18.3 Active 551306121 Problem Irritable bowel syndrome with diarrhea K58.0 Active 026839137 ALLERGIES No Information ENCOUNTERS Encounter Location Date Diagnosis [place] [address] [address] 12 Apr, 2019 [place] [address] [address] Feb, Type 2 diabetes mellitus with diabetic c hronic kidney disease E11.22 ; Chronic kidney disease, stage 3 (moderate) N18.3 ; group home (current) use of insulin Z79.4 ; Weight loss R63.4 ; Colon cancer screening Z12.11 ; Irritable bowel syndrome with both constipation and diarrhea K58.2 ; Essential hypertension I10 ; Pacemaker Z95.0 and Food allergy Z91.018 [place] [address] [address] Jan, Diabetes E11.9 [place] [address] [address] Jan, [address] [id number] [address] Dec, Bipolar affective disorder, current episode mixed, current episode severity unspecified F31.60 [place] [address] [address] Dec, [place] [address] [address] Nov, Diabetes E11.9 [place] [address] [address] Oct, [place] [address] [address] Oct, [place] [address] [address] Sep, Generalized abdominal pain R10.84 ; Slow transit constipation K59.01 and Diabetes E11.9 [facility] [address] [facility] [id number] [address] [place] [address] Aug, Viral upper respiratory trac t infection J06.9 [place] [address] [address] Aug, [facility] [address] [place] [id number] [place] [address] Aug, Bipolar affective disorder, current epis ode mixed, current episode severity unspecified F31.60 [facility] [address] [place] [address] [id number] [place] [address] Aug, Bipolar affective disorder, current epis ode mixed, current episode severity unspecified F31.60 [facility] [address] [facility] [id number] [address] [place] [address] Aug, Viral upper respiratory trac t infection J06.9 [place] [address] [place] [id number] [place] [address] Aug, [place] [address] [place] [id number] [place] [address] Jun, Type 2 diabetes mellitus with diabetic c ataract E11.36 and group home current use of insulin Z79.4 [place] [address] [place] [id number] [place] [address] May, [facility] [address] [place] [address] [id number] [place] [address] Apr, [place] [address] [place] [id number] [place] [address] Apr, Diabetes E11.9 [place] [address] [place] [id number] [place] [address] Apr, Bipolar affective disorder, current epis ode mixed, current episode severity unspecified F31.60 [facility] [address] [place] [address] [id number] [place] [address] Apr, [place] [address] [address] Mar, [place] [address] [place] [id number] [place] [address] Mar, Psychosis, unspecified psychosis type F2 9 and Bipolar affective disorder, current episode mixed, current episode severity unspecified F31.60 [place] [address] [address] Mar, [facility] [address] [place] [id number] [place] [address] Mar, Low back pain M54.5 and Arth ritis of back M47.9 [place] [address] [address] Mar, [facility] [address] [address] Feb, Abdominal pain R10.9 and Con stipation K59.00 [place] [address] [address] Feb, Vertigo R42 ; Type 2 diabetes mellitus w ith diabetic cataract E11.36 ; Hyperglycemia R73.9 and Essential hypertension I10 [place] [address] [address] Jan, [place] [address] [address] Dec, [place] [address] [address] Dec, [facility] [address] [place] [id number] [address] [place] [address] Dec, Dizziness R42 and Diabetes 1 .5, 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 [place] [address] [address] Dec, [place] [address] [address] Dec, [place] [address] [address] Dec, Psychosis, unspecified psychosis type F2 9 and Bipolar affective disorder, current episode mixed, current episode severity unspecified F31.60 [place] [address] [address] Dec, [place] [address] [address] Dec, [place] [address] [address] Dec, Type 2 diabetes mellitus with diabetic c ataract E11.36 ; superintendent terminal current use of insulin Z79.4 and Hyperglycemia R73.9 [place] [address] [address] Oct, [place] [address] [address] Oct, [place] [address] [address] Oct, [place] [address] [address] Sep, [facility] [address] [facility] [id number] [address] [place] [address] Aug, Upper respiratory tract infe ction, unspecified type J06.9 ; Chronic idiopathic constipation K59.04 ; Fluid level behind tympanic membrane of both ears H65.93 and Abdominal pain R10.9 [place] [address] [address] July, Diabetes E11.9 [place] [address] [address] Jun, Dehydration E86.0 ; Diabetes E11.9 and H yperglycemia R73.9 [place] [address] [address] Jun, [place] [address] [address] Jun, Vertigo R42 ; Syncope, unspecified synco pe type R55 ; Diabetes E11.9 and Hyperglycemia R73.9 [place] [address] [address] May, Psychosis, unspecified psychosis type F2 9 and Bipolar affective disorder, current episode mixed, current episode severity unspecified F31.60 [facility] [address] [place] [id number] [place] [address] May, [facility] [address] [address] May, Diabetes E11.9 [facility] [address] [id number] [place] [id number] Apr, Dental examination Z01.20 and Dental car ies K02.9 [facility] [address] [address] Apr, Dental examination Z01.20 and Dental abs cess K04.7 [place] [address] [address] Mar, Psychosis, unspecified psychosis type F2 9 and Bipolar affective disorder, current episode mixed, current episode severity unspecified F31.60 [facility] [address] [address] Mar, [facility] [address] [address] Feb, [facility] [address] [address] Feb, Left wrist pain M25.532 [place] [address] [address] Jan, [facility] [address] [address] Jan, Psychosis, unspecified psychosis type F2 9 and Bipolar affective disorder, current episode mixed, current episode severity unspecified F31.60 [facility] [address] [address] Jan, Diabetes E11.9 [facility] [address] [facility] [id number] [address] [place] [address] Jan, Left wrist pain M25.532 [facility] [address] [address] Dec, Psychosis, unspecified psychosis type F2 9 and Bipolar affective disorder, current episode mixed, current episode severity unspecified F31.60 [facility] [address] [address] Dec, Syncope, unspecified syncope type R55 ; Vertigo R42 ; Diabetes E11.9 ; Psychosis, unspecified psychosis type F29 and Fall, initial encounter W19.XXXA [facility] [address] [address] Dec, Diabetes E11.9 ; Neck pain M54.2 and Fela tigo R42 [facility] [address] [address] Nov, [facility] [address] [facility] [id number] [place] [address] 08 Nov, 2016 [facility] [address] [address] Nov, [facility] [address] [address] Nov, Diabetes E11.9 [facility] [address] [address] 05 Nov, 2016 Diabetes E11.9 [facility] [address] [address] Oct, [facility] [address] [place] [id number] [place] [id number] Oct, [facility] [address] [address] Oct, [facility] [address] [address] Oct, Bipolar affective disorder, current epis ode mixed, current episode severity unspecified F31.60 [facility] [address] [place] [id number] [place] [id number] Sep, [facility] [address] [address] Sep, Bipolar affective disorder, current epis ode mixed, current episode severity unspecified F31.60 [facility] [address] [place] [id number] [address] [place] [address] Sep, Acute maxillary sinusitis, r ecurrence not specified J01.00 [facility] [address] [address] 07 Sep, 2016 Diabetes E11.9 [place] [address] [address] July, Diabetes E11.9 [place] [address] [address] July, Diabetes E11.9 [place] [address] [address] Jun, [place] [address] [address] May, Bipolar affective disorder, current epis ode mixed, current episode severity unspecified F31.60 [facility] [address] [place] [id number] [address] [place] [address] May, Acute non-recurrent maxillar y sinusitis J01.00 [place] [address] [address] 10 Apr, 2016 Psychosis, unspecified psychosis type F2 9 and Bipolar affective disorder, current episode mixed, current episode severity unspecified F31.60 [facility] [address] [place] [id number] [address] [place] [address] Apr, Dysuria R30.0 ; Other viral agents as the cause of diseases classified elsewhere B97.89 and Acute upper respiratory infection, unspecified J06.9 [place] [address] [address] Mar, Diabetes E11.9 ; Urine leukocytes R82.99 and Psychosis, unspecified psychosis type F29 [place] [address] [address] Mar, Diabetes E11.9 [facility] [address] [place] [id number] [place] [address] Feb, [facility] [address] [address] Jan, [facility] [address] [place] [id number] [place] [address] Dec, Psychosis, unspecified psychosis type F2 9 [facility] [address] [address] Dec, [facility] [address] [place] [address] Dec, [facility] [address] [address] Dec, Psychosis, unspecified psychosis type F2 9 [facility] [address] [address] Nov, Schizoaffective disorder, unspecified ty pe F25.9 [facility] [address] [address] Oct, [facility] [address] [place] [id number] [place] [address] Oct, Conjunctivitis of right eye, unspecified conjunctivitis type H10.9 [facility] [address] [place] [id number] [place] [address] Aug, [facility] [address] [id number] [place] [id number] Jun, Encounter for dental examination Z01.20 [facility] [address] [place] [id number] [place] [address] Jun, Diabetes E11.9 and Bipolar affect, depre ssed F31.30 [facility] [address] [address] Jun, Other bipolar disorder F31.89 [place] [address] [address] Jun, [facility] [place] [facility] [address] [facility] [id number] [facility] [place] [address] Apr, [facility] [place] [facility] [address] [facility] [id number] [facility] [place] [address] Dec, [facility] [place] [facility] [address] [facility] [id number] [facility] [place] [address] Dec, [facility] [place] [facility] [address] [facility] [id number] [place] [address] 30 Sep, 2014 [facility] [place] [facility] [address] [facility] [id number] [place] [address] Jun, [facility] [place] [facility] [address] [id number] [facility] [place] [address] Jun, [facility] [place] [facility] [address] [id number] [place] [address] Mar, [facility] [place] [facility] [address] [id number] [place] [address] Mar, [facility] [place] [facility] [address] [id number] [facility] [place] [address] Nov, [facility] [place] [facility] [address] [id number] [facility] [place] [address] Nov, [facility] [place] [facility] [address] [id number] [place] [address] Sep, [facility] [place] [facility] [address] [id number] [place] [address] Sep, [facility] [place] [facility] [address] [facility] [id number] [facility] [place] [address] Sep, [facility] [place] [facility] [address] [id number] [place] [address] Sep, 2013 [facility] [place] [facility] [address] [id number] [place] [address] Sep, [facility] [place] [facility] [address] [id number] [facility] [place] [address] Aug, [facility] [place] [facility] [address] [id number] [place] [address] Aug, [facility] [place] [facility] [address] [id number] [place] [address] Aug, [facility] [place] [facility] [address] [id number] [place] [address] Aug, [facility] [place] [facility] [address] [id number] [place] [address] Aug, [facility] [place] [facility] [address] [id number] [place] [address] Aug, [facility] [place] [facility] [address] [id number] [place] [address] July, [facility] [place] [facility] [address] [id number] [place] [address] July, [facility] [place] [facility] [address] [id number] [place] [address] Jun, [facility] [place] [facility] [address] [id number] [place] [address] Jun, [facility] [place] [facility] [address] [id number] [place] [address] Jun, [facility] [place] [facility] [address] [id number] [place] [address] Jun, [facility] [place] [facility] [address] [id number] [place] [address] Jun, [facility] [place] [facility] [address] [id number] [place] [address] Jun, [facility] [place] [facility] [address] [id number] [place] [address] Jun, [facility] [place] [facility] [address] [id number] [place] [address] Jun, [facility] [place] [facility] [address] [id number] [place] [address] May, [facility] [place] [facility] [address] [id number] [place] [address] May, [facility] [place] [facility] [address] [id number] [place] [address] May, [facility] [place] [facility] [address] [id number] [place] [address] May, [facility] [place] [facility] [address] [id number] [place] [address] May, [facility] [place] [facility] [address] [id number] [place] [address] May, [facility] [place] [facility] [address] [id number] [place] [address] May, [facility] [place] [facility] [address] [id number] [place] [address] May, [facility] [place] [facility] [address] [id number] [place] [address] May, [facility] [place] [facility] [address] [id number] [place] [address] Apr, [facility] [place] [facility] [address] [id number] [place] [address] Apr, [facility] [place] [facility] [address] [id number] [place] [address] Mar, [facility] [place] [facility] [address] [id number] [place] [address] Mar, [facility] [place] [facility] [address] [id number] [place] [address] Feb, [facility] [place] [facility] [address] [id number] [place] [address] Feb, [facility] [place] [facility] [address] [id number] [place] [address] Nov, [facility] [place] [facility] [address] [id number] [place] [address] Nov, [facility] [place] [facility] [address] [id number] [place] [address] Oct, [facility] [place] [facility] [address] [id number] [place] [address] 08 Oct, 2012 [facility] [place] [facility] [address] [id number] [facility] [place] [address] Oct, [facility] [place] [facility] [address] [facility] [id number] [facility] [place] [address] Oct, [facility] [place] [facility] [address] [id number] [facility] [place] [address] Oct, [facility] [place] [facility] [address] [facility] [id number] [facility] [place] [address] Sep, [facility] [place] [facility] [address] [facility] [id number] [facility] [place] [address] Sep, [facility] [place] [facility] [address] [id number] [facility] [place] [address] Sep, [facility] [place] [facility] [address] [id number] [place] [address] Sep, [facility] [place] [facility] [address] [id number] [place] [address] Aug, [facility] [place] [facility] [address] [id number] [place] [address] Aug, [facility] [place] [facility] [address] [id number] [place] [address] Aug, [facility] [place] [facility] [address] [id number] [place] [address] Aug, [facility] [place] [facility] [address] [id number] [place] [address] Jun, [facility] [place] [facility] [address] [facility] [id number] [place] [address] 18 Jun, 2012 [facility] [place] [facility] [address] [id number] [place] [address] Jun, [facility] [place] [facility] [address] [id number] [place] [address] Jun, [facility] [place] [address] [id number] [place] [address] May, [facility] [address] [id number] [place] [address] 18 May, 2012 [facility] [address] [facility] [id number] [place] [address] 18 May, 2012 [facility] [address] [id number] [place] [address] 13 May, 2012 [facility] [address] [id number] [place] [address] 11 May, 2012 [facility] [address] [id number] [place] [address] 04 May, 2012 [facility] [address] [id number] [place] [address] 21 Apr, 2012 [facility] [address] [id number] [place] [address] 20 Apr, 2012 [facility] [address] [id number] [place] [address] Apr, [facility] [address] [id number] [place] [address] Apr, [facility] [address] [id number] [place] [address] Apr, [facility] [address] [id number] [place] [address] Feb, [facility] [address] [id number] [place] [address] Feb, [facility] [address] [id number] [place] [address] Feb, [facility] [address] [id number] [place] [address] Feb, [facility] [address] [id number] [place] [address] Feb, [facility] [address] [id number] [place] [address] Feb, [facility] [address] [id number] [place] [address] Feb, [facility] [address] [id number] [place] [address] 19 Feb, 2012 [facility] [address] [id number] [place] [address] 14 Feb, 2012 [facility] [address] [id number] [place] [address] 14 Feb, 2012 [facility] [address] [id number] [place] [address] Feb, [facility] [address] [id number] [place] [address] Feb, [facility] [address] [id number] [place] [address] Feb, [facility] [address] [id number] [place] [address] Feb, [facility] [address] [id number] [place] [address] Feb, [facility] [address] [id number] [place] [address] Feb, [facility] [address] [id number] [place] [address] Feb, [facility] [address] [id number] [place] [address] Feb, [facility] [address] [id number] [place] [address] Feb, [facility] [address] [id number] [place] [address] Feb, [facility] [address] [id number] [place] [address] Feb, [facility] [address] [id number] [place] [address] Feb, [facility] [address] [id number] [place] [address] Feb, [facility] [address] [id number] [place] [address] Feb, [facility] [address] [id number] [place] [address] Feb, [facility] [address] [id number] [place] [address] Feb, [facility] [address] [id number] [place] [address] Jan, [facility] [address] [id number] [place] [address] Jan, [facility] [address] [id number] [place] [address] Dec, [facility] [address] [id number] [place] [address] Dec, [facility] [address] [id number] [place] [address] Dec, [facility] [address] [id number] [place] [address] Dec, [facility] [address] [id number] [place] [address] Nov, [facility] [address] [id number] [place] [address] Nov, [facility] [address] [id number] [place] [address] Nov, [facility] [address] [id number] [place] [address] Nov, [facility] [address] [id number] [place] [address] Oct, [facility] [address] [id number] [place] [address] Oct, [facility] [address] [id number] [place] [address] Sep, [facility] [address] [id number] [place] [address] Sep, [facility] [address] [id number] [place] [address] Sep, [facility] [address] [id number] [place] [address] Aug, [facility] [address] [id number] [place] [address] Aug, [facility] [address] [id number] [place] [address] 14 Aug, 2011 [facility] [address] [id number] [place] [address] Aug, [facility] [address] [id number] [place] [address] Aug, [facility] [address] [id number] [place] [address] July, [facility] [address] [id number] [place] [address] July, [facility] [address] [id number] [place] [address] July, [facility] [address] [id number] [place] [address] July, [facility] [address] [id number] [place] [address] July, [facility] [address] [id number] [place] [address] Jun, [facility] [address] [id number] [place] [address] May, [facility] [address] [id number] [place] [address] 16 Apr, 2011 [facility] [address] [id number] [place] [address] Apr, [facility] [address] [id number] [place] [address] Apr, [facility] [address] [id number] [place] [address] Mar, [facility] [address] [facility] [id number] [place] [address] Mar, [facility] [address] [id number] [place] [address] Mar, [facility] [address] [id number] [place] [address] Mar, [facility] [address] [id number] [place] [address] Mar, [facility] [address] [facility] [id number] [place] [address] Mar, [facility] [address] [id number] [place] [address] Mar, [facility] [address] [id number] [place] [address] Mar, [facility] [address] [id number] [place] [address] Feb, [facility] [address] [id number] [place] [address] Feb, [facility] [address] [id number] [place] [address] Feb, [facility] [address] [id number] [place] [address] Feb, [facility] [address] [id number] [place] [address] Feb, [facility] [address] [id number] [place] [address] Jan, [facility] [address] [id number] [place] [address] Jan, [facility] [address] [id number] [place] [address] Jan, [facility] [address] [id number] [place] [address] Jan, [facility] [address] [id number] [place] [address] 14 Dec, 2010 [facility] [address] [id number] [place] [address] 14 Dec, 2010 [facility] [address] [id number] [place] [address] Sep, [facility] [id number] [place] [address] July, [facility] [id number] [place] [address] Apr, [facility] [address] [id number] [place] [address] Mar, [facility] [id number] [place] [address] Feb, [facility] [id number] [place] [address] Feb, [facility] [id number] [place] [address] Feb, [facility] [address] [id number] [place] [address] Feb, [facility] [id number] [place] [address] Feb, [facility] [id number] [place] [address] Feb, [facility] [id number] [place] [address] Feb, [facility] [address] [id number] [place] [address] Dec, [facility] [id number] [place] [address] Jan, [facility] [id number] [place] [address] 14 Apr, 2008 IMMUNIZATIONS No Known Immunizations SOCIAL HISTORY Never Assessed REASON FOR VISIT PLAN OF CARE VITAL SIGNS Height 64 in 2013-06-25 Weight 195.5 lbs 2013-06-25 Temperature 97.4 degrees Fahrenheit 2013-06-25 Heart Rate 84 bpm 2013-06-25 Respiratory Rate 20 2013-06-25 Blood pressure systolic 168 mmHg 2013-06-25 Blood pressure diastolic 100 mmHg 2013-06-25 MEDICATIONS Unknown Medications RESULTS No Results PROCEDURES [...] Hospitalization History Hyperglycemia [address] [facility]2015 2016 Hospitalization History Schizophrenia 09/26/16 Hospitalization History AMS, UTI, hyponatremia-[facility] 10/21/16 Hospitalization History stent placed 02/02/17 Hospitalization History stent placed 02/2017 Hospitalization History [facility]- Syncope, Dehydration and Hypotension. 06/08/2017 Hospitalization History [facility]- Dehydrated 08/2018
--- OUTSIDE RECORDS SUMMARY | 2019-07-05 08:12 | XMS REPORT ---
Author Author Melina CALDERON Organization [facility] Address [address] [place] [address] Care Team Providers Care Milk Driver Name Role Phone WOOD CALDERON Unavailable PROBLEMS Type Condition ICD9-CM Code [id number] Code Onset Dates Condition S tatus SNOMED Code Problem Coronary artery disease invo lving atka coronary artery of atka heart without angina pectoris I25.10 Active 1641 [id number] Problem Bipolar affective disorder, current episode mixed, current episode severity unspecified F31.60 Active 3115314 08 Problem half-way current use of insulin Z79.4 Active 098443999 Problem Chronic idiopathic constipation K59.04 Active 53394811 Problem Age-related incipient cataract of both eyes H25.09 3 Active 937746968 Problem 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 Active 919799017 Problem Essential hypertension I10 Active 81683588 Problem Diabetes E11.9 Active 61744960 Problem Diabetes 1.5, 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 804384422 Problem Slow transit constipation K59.01 Acti ve 71229442 Problem Food allergy Z91.018 Active 6508777 01 Problem Irritable bowel syndrome with both constipation and diarrh ea K58.2 Active 33897212 Problem Irritable bowel syndrome with diarrhea K58.0 Active 330027964 Problem Arthritis of back M47.9 Active 68 270949 Problem Pacemaker Z95.0 Active 313327777 Problem Type 2 diabetes mellitus with diabetic chronic kidney disease E11.22 Active 49186819 Problem Constipation K59.00 Active 1379897 8 Problem CVA (cerebral vascular accident) I63.9 Active 621383602 Problem Psychosis, unspecified psychosis type F29 Active 33045370 Problem Irritable bowel syndrome with both constipation and diarrh ea K58.2 Active 64546345 Problem half-way (current) use of insulin Z79.4 Active 419722736 Problem Chronic kidney disease, stage 3 (moderate) N18.3 Active 564969450 Problem Irritable bowel syndrome with diarrhea K58.0 Active 342325670 ALLERGIES No Information ENCOUNTERS Encounter Location Date Diagnosis [place] [address] [address] Feb, Type 2 diabetes mellitus with diabetic c hronic kidney disease E11.22 ; Chronic kidney disease, stage 3 (moderate) N18.3 ; half-way (current) use of insulin Z79.4 ; Weight loss R63.4 ; Colon cancer screening Z12.11 ; Irritable bowel syndrome with both constipation and diarrhea K58.2 ; Essential hypertension I10 ; Pacemaker Z95.0 and Food allergy Z91.018 [place] [address] [address] Jan, Diabetes E11.9 [place] [address] [address] Jan, [address] [facility] [address] Dec, Bipolar affective disorder, current episode mixed, current episode severity unspecified F31.60 [place] [address] [address] Dec, [place] [address] [address] Nov, Diabetes E11.9 [place] [address] [address] Oct, [place] [address] [address] Oct, [place] [address] [address] Sep, Generalized abdominal pain R10.84 ; Slow transit constipation K59.01 and Diabetes E11.9 [facility] [address] [facility] [id number] [address] [place] [address] Aug, Viral upper respiratory trac t infection J06.9 [facility] [address] [address] Aug, [facility] [address] [place] [id number] [place] [address] Aug, Bipolar affective disorder, current epis ode mixed, current episode severity unspecified F31.60 [facility] [address] [place] [id number] [place] [address] Aug, Bipolar affective disorder, current epis ode mixed, current episode severity unspecified F31.60 [facility] [address] [facility] [id number] [address] [place] [address] Aug, Viral upper respiratory trac t infection J06.9 [place] [address] [place] [id number] [place] [address] Aug, [place] [address] [place] [id number] [place] [address] Jun, Type 2 diabetes mellitus with diabetic c ataract E11.36 and half-way current use of insulin Z79.4 [place] [address] [place] [id number] [place] [address] May, [facility] [address] [place] [id number] [place] [address] Apr, [place] [address] [address] Apr, Diabetes E11.9 [place] [address] [place] [id number] [place] [address] Apr, Bipolar affective disorder, current epis ode mixed, current episode severity unspecified F31.60 [facility] [address] [place] [id number] [place] [address] Apr, [place] [address] [address] Mar, [place] [address] [place] [id number] [place] [address] Mar, Psychosis, unspecified psychosis type F2 9 and Bipolar affective disorder, current episode mixed, current episode severity unspecified F31.60 [place] [address] [address] Mar, [facility] [address] [place] [address] Mar, Low back pain M54.5 and Arth ritis of back M47.9 [place] [address] [address] Mar, [facility] [address] [place] [id number] [place] [address] Feb, Abdominal pain R10.9 and Con stipation K59.00 [place] [address] [address] Feb, Vertigo R42 ; Type 2 diabetes mellitus w ith diabetic cataract E11.36 ; Hyperglycemia R73.9 and Essential hypertension I10 [place] [address] [address] Jan, [place] [address] [address] Dec, [place] [address] [address] Dec, [facility] [address] [place] [id number] [place] [address] Dec, Dizziness R42 and Diabetes 1 .5, 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 [place] [address] [address] Dec, [place] [address] [address] Dec, [place] [address] [address] Dec, Psychosis, unspecified psychosis type F2 9 and Bipolar affective disorder, current episode mixed, current episode severity unspecified F31.60 [place] [address] [address] Dec, [place] [address] [address] Dec, [place] [address] [address] Dec, Type 2 diabetes mellitus with diabetic c ataract E11.36 ; 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 and Hyperglycemia R73.9 [place] [address] [address] Oct, [place] [address] [address] Oct, [place] [address] [address] Oct, [place] [address] [address] Sep, [facility] [address] [facility] [id number] [address] [place] [address] Aug, Upper respiratory tract infe ction, unspecified type J06.9 ; Chronic idiopathic constipation K59.04 ; Fluid level behind tympanic membrane of both ears H65.93 and Abdominal pain R10.9 [place] [address] [address] July, Diabetes E11.9 [place] [address] [address] Jun, Dehydration E86.0 ; Diabetes E11.9 and H yperglycemia R73.9 [place] [address] [address] Jun, [place] [address] [address] Jun, Vertigo R42 ; Syncope, unspecified synco pe type R55 ; Diabetes E11.9 and Hyperglycemia R73.9 [place] [address] [address] May, Psychosis, unspecified psychosis type F2 9 and Bipolar affective disorder, current episode mixed, current episode severity unspecified F31.60 [facility] [address] [place] [id number] [place] [address] May, [facility] [address] [address] May, Diabetes E11.9 [facility] [address] [facility] [id number] [place] [id number] Apr, Dental examination Z01.20 and Dental car ies K02.9 [facility] [address] [address] Apr, Dental examination Z01.20 and Dental abs cess K04.7 [place] [address] [address] Mar, Psychosis, unspecified psychosis type F2 9 and Bipolar affective disorder, current episode mixed, current episode severity unspecified F31.60 [place] [address] [address] Mar, [facility] [address] [address] Feb, [facility] [address] [address] Feb, Left wrist pain M25.532 [place] [address] [address] Jan, [facility] [address] [address] Jan, Psychosis, unspecified psychosis type F2 9 and Bipolar affective disorder, current episode mixed, current episode severity unspecified F31.60 [facility] [address] [address] Jan, Diabetes E11.9 [facility] [address] [facility] [id number] [address] [place] [address] 07 Jan, 2017 Left wrist pain M25.532 [facility] [address] [address] Dec, Psychosis, unspecified psychosis type F2 9 and Bipolar affective disorder, current episode mixed, current episode severity unspecified F31.60 [facility] [address] [address] Dec, Syncope, unspecified syncope type R55 ; Vertigo R42 ; Diabetes E11.9 ; Psychosis, unspecified psychosis type F29 and Fall, initial encounter W19.XXXA [facility] [address] [address] Dec, Diabetes E11.9 ; Neck pain M54.2 and Fela tigo R42 [facility] [address] [address] 13 Nov, 2016 [facility] [address] [facility] [id number] [place] [address] 08 Nov, 2016 [facility] [address] [address] 08 Nov, 2016 [facility] [address] [address] 06 Nov, 2016 Diabetes E11.9 [facility] [address] [address] 05 Nov, 2016 Diabetes E11.9 [facility] [address] [address] Oct, [facility] [place] [facility] [address] [place] [id number] [id number] Oct, [facility] [address] [address] Oct, [facility] [address] [address] Oct, Bipolar affective disorder, current epis ode mixed, current episode severity unspecified F31.60 [facility] [place] [facility] [address] [place] [id number] [place] [id number] Sep, [facility] [address] [address] Sep, Bipolar affective disorder, current epis ode mixed, current episode severity unspecified F31.60 [facility] [address] [place] [id number] [place] [address] Sep, Acute maxillary sinusitis, r ecurrence not specified J01.00 [facility] [address] [address] 07 Sep, 2016 Diabetes E11.9 [place] [address] [address] July, Diabetes E11.9 [place] [address] [address] July, Diabetes E11.9 [place] [address] [address] Jun, [place] [address] [address] May, Bipolar affective disorder, current epis ode mixed, current episode severity unspecified F31.60 [facility] [address] [place] [id number] [place] [address] May, Acute non-recurrent maxillar y sinusitis J01.00 [place] [address] [address] 10 Apr, 2016 Psychosis, unspecified psychosis type F2 9 and Bipolar affective disorder, current episode mixed, current episode severity unspecified F31.60 [facility] [address] [place] [id number] [place] [address] Apr, Dysuria R30.0 ; Other viral agents as the cause of diseases classified elsewhere B97.89 and Acute upper respiratory infection, unspecified J06.9 [place] [address] [address] Mar, Diabetes E11.9 ; Urine leukocytes R82.99 and Psychosis, unspecified psychosis type F29 [place] [address] [address] Mar, Diabetes E11.9 [facility] [address] [place] [id number] [place] [address] Feb, [facility] [address] [address] Jan, [facility] [address] [address] Dec, Psychosis, unspecified psychosis type F2 9 [facility] [address] [address] Dec, [facility] [address] [place] [address] Dec, [facility] [address] [address] Dec, Psychosis, unspecified psychosis type F2 9 [facility] [address] [address] Nov, Schizoaffective disorder, unspecified ty pe F25.9 [facility] [address] [address] Oct, [facility] [address] [place] [address] Oct, Conjunctivitis of right eye, unspecified conjunctivitis type H10.9 [facility] [address] [place] [id number] [place] [address] Aug, [facility] [address] [id number] [place] [id number] Jun, Encounter for dental examination Z01.20 [facility] [address] [place] [id number] [place] [address] Jun, Diabetes E11.9 and Bipolar affect, depre ssed F31.30 [facility] [address] [address] Jun, Other bipolar disorder F31.89 [place] [address] [address] Jun, [facility] [place] [facility] [address] [facility] [id number] [place] [address] Apr, [facility] [place] [facility] [address] [facility] [id number] [place] [address] Dec, [facility] [place] [facility] [address] [id number] [place] [address] Dec, [facility] [place] [facility] [address] [id number] [place] [address] Sep, [facility] [place] [facility] [address] [facility] [id number] [place] [address] Jun, [facility] [place] [facility] [address] [id number] [place] [address] Jun, [facility] [place] [facility] [address] [id number] [place] [address] Mar, [facility] [place] [facility] [address] [id number] [place] [address] Mar, [facility] [place] [facility] [address] [id number] [place] [address] Nov, [facility] [place] [facility] [address] [id number] [place] [address] Nov, [facility] [place] [facility] [address] [id number] [place] [address] Sep, [facility] [place] [facility] [address] [id number] [place] [address] Sep, 2013 [facility] [place] [facility] [address] [id number] [place] [address] Sep, [facility] [place] [facility] [address] [id number] [place] [address] Sep, 2013 [facility] [place] [facility] [address] [id number] [place] [address] Sep, [facility] [place] [facility] [address] [id number] [place] [address] Aug, [facility] [place] [facility] [address] [id number] [place] [address] Aug, [facility] [place] [facility] [address] [id number] [place] [address] Aug, [facility] [place] [facility] [address] [facility] [id number] [place] [address] Aug, [facility] [place] [facility] [address] [id number] [place] [address] Aug, [facility] [place] [facility] [address] [id number] [place] [address] Aug, [facility] [place] [facility] [address] [id number] [place] [address] July, [facility] [place] [facility] [address] [id number] [place] [address] July, [facility] [place] [facility] [address] [id number] [place] [address] Jun, [facility] [place] [facility] [address] [id number] [place] [address] Jun, [facility] [place] [facility] [address] [id number] [place] [address] Jun, [facility] [place] [facility] [address] [id number] [place] [address] Jun, [facility] [place] [facility] [address] [id number] [place] [address] Jun, [facility] [place] [facility] [address] [id number] [place] [address] Jun, [facility] [place] [facility] [address] [id number] [place] [address] Jun, [facility] [place] [facility] [address] [id number] [place] [address] Jun, [facility] [place] [facility] [address] [id number] [place] [address] May, [facility] [place] [facility] [address] [id number] [place] [address] May, [facility] [place] [facility] [address] [id number] [place] [address] May, [facility] [place] [facility] [address] [id number] [place] [address] May, [facility] [place] [facility] [address] [id number] [place] [address] May, [facility] [place] [facility] [address] [id number] [place] [address] May, [facility] [place] [facility] [address] [id number] [place] [address] May, [facility] [place] [facility] [address] [id number] [place] [address] May, [facility] [place] [facility] [address] [id number] [place] [address] May, [facility] [place] [facility] [address] [id number] [place] [address] Apr, [facility] [place] [facility] [address] [id number] [place] [address] Apr, [facility] [place] [facility] [address] [id number] [place] [address] Mar, [facility] [place] [facility] [address] [id number] [place] [address] Mar, [facility] [place] [facility] [address] [id number] [place] [address] Feb, [facility] [place] [facility] [address] [id number] [place] [address] Feb, [facility] [place] [facility] [address] [id number] [place] [address] Nov, [facility] [place] [facility] [address] [id number] [place] [address] 12 Nov, 2012 [facility] [place] [facility] [address] [id number] [place] [address] Oct, [facility] [place] [facility] [address] [id number] [place] [address] 08 Oct, 2012 [facility] [place] [facility] [address] [facility] [id number] [place] [address] Oct, [facility] [place] [facility] [address] [facility] [id number] [place] [address] Oct, [facility] [place] [facility] [address] [id number] [place] [address] Oct, [facility] [place] [facility] [address] [id number] [place] [address] Sep, [facility] [place] [facility] [address] [facility] [id number] [place] [address] Sep, [facility] [place] [facility] [address] [id number] [place] [address] Sep, [facility] [place] [facility] [address] [id number] [place] [address] Sep, [facility] [place] [facility] [address] [id number] [place] [address] Aug, [facility] [place] [facility] [address] [id number] [place] [address] Aug, [facility] [place] [facility] [address] [id number] [place] [address] Aug, [facility] [place] [facility] [address] [id number] [place] [address] Aug, [facility] [place] [facility] [address] [id number] [place] [address] Jun, [facility] [place] [facility] [address] [facility] [id number] [place] [address] 18 Jun, 2012 [facility] [place] [facility] [address] [id number] [place] [address] Jun, [facility] [place] [facility] [address] [id number] [place] [address] Jun, [facility] [place] [facility] [address] [id number] [place] [address] May, [facility] [place] [facility] [address] [id number] [place] [address] 18 May, 2012 [facility] [place] [facility] [address] [id number] [place] [address] 18 May, 2012 [facility] [place] [facility] [address] [id number] [place] [address] 13 May, 2012 [facility] [place] [facility] [address] [id number] [place] [address] 11 May, 2012 [facility] [place] [facility] [address] [id number] [place] [address] 04 May, 2012 [facility] [place] [facility] [address] [id number] [place] [address] 21 Apr, 2012 [facility] [place] [facility] [address] [id number] [place] [address] 20 Apr, 2012 [facility] [place] [facility] [address] [id number] [place] [address] Apr, [facility] [place] [facility] [address] [id number] [place] [address] Apr, [facility] [place] [facility] [address] [id number] [place] [address] Apr, [facility] [place] [facility] [address] [id number] [place] [address] Feb, [facility] [place] [facility] [address] [id number] [place] [address] Feb, [facility] [place] [facility] [address] [id number] [place] [address] Feb, [facility] [place] [facility] [address] [id number] [place] [address] Feb, [facility] [place] [facility] [address] [id number] [place] [address] Feb, [facility] [place] [facility] [address] [id number] [place] [address] Feb, [facility] [place] [facility] [address] [id number] [place] [address] Feb, [facility] [place] [facility] [address] [id number] [place] [address] 19 Feb, 2012 [facility] [place] [facility] [address] [id number] [place] [address] 14 Feb, 2012 [facility] [address] [id number] [place] [address] 14 Feb, 2012 [facility] [address] [id number] [place] [address] Feb, [facility] [address] [id number] [place] [address] Feb, [facility] [address] [id number] [place] [address] Feb, [facility] [address] [id number] [place] [address] Feb, [facility] [address] [id number] [place] [address] Feb, [facility] [address] [id number] [place] [address] Feb, [facility] [address] [id number] [place] [address] Feb, [facility] [address] [id number] [place] [address] Feb, [facility] [address] [id number] [place] [address] Feb, [facility] [address] [id number] [place] [address] Feb, [facility] [address] [id number] [place] [address] Feb, [facility] [address] [id number] [place] [address] Feb, [facility] [address] [id number] [place] [address] Feb, [facility] [address] [id number] [place] [address] Feb, [facility] [address] [id number] [place] [address] Feb, [facility] [address] [id number] [place] [address] Feb, [facility] [address] [id number] [place] [address] Jan, [facility] [address] [id number] [place] [address] Jan, [facility] [address] [id number] [place] [address] Dec, [facility] [address] [id number] [place] [address] Dec, [facility] [address] [id number] [place] [address] Dec, [facility] [address] [id number] [place] [address] Dec, [facility] [address] [id number] [place] [address] Nov, [facility] [address] [id number] [place] [address] Nov, [facility] [address] [id number] [place] [address] Nov, [facility] [address] [id number] [place] [id number] Nov, [facility] [address] [id number] [place] [address] Oct, [facility] [address] [id number] [place] [address] Oct, [facility] [address] [id number] [place] [address] Sep, [facility] [address] [id number] [place] [address] Sep, [facility] [address] [facility] [id number] [place] [address] Sep, [facility] [address] [id number] [place] [address] Aug, [facility] [address] [id number] [place] [address] Aug, [facility] [address] [id number] [place] [address] 14 Aug, 2011 [facility] [address] [id number] [place] [address] Aug, [facility] [address] [id number] [place] [address] Aug, [facility] [address] [id number] [place] [address] July, [facility] [address] [id number] [place] [address] July, [facility] [address] [id number] [place] [address] July, [facility] [address] [id number] [place] [address] July, [facility] [address] [id number] [place] [address] July, [facility] [address] [id number] [place] [address] Jun, [facility] [address] [id number] [place] [address] May, [facility] [address] [id number] [place] [address] 16 Apr, 2011 [facility] [address] [id number] [place] [address] Apr, [facility] [address] [id number] [place] [address] Apr, [facility] [address] [id number] [place] [address] Mar, [facility] [address] [id number] [place] [address] Mar, [facility] [address] [id number] [place] [address] Mar, [facility] [address] [id number] [place] [address] Mar, [facility] [address] [id number] [place] [address] Mar, [facility] [address] [facility] [id number] [place] [address] Mar, [facility] [address] [id number] [place] [address] Mar, [facility] [address] [id number] [place] [address] Mar, [facility] [address] [id number] [place] [address] Feb, [facility] [address] [id number] [place] [address] Feb, [facility] [address] [id number] [place] [address] Feb, [facility] [address] [id number] [place] [address] Feb, [facility] [address] [id number] [place] [address] Feb, [facility] [address] [id number] [place] [address] Jan, [facility] [address] [id number] [place] [address] Jan, [facility] [address] [id number] [place] [address] Jan, [facility] [address] [id number] [place] [address] Jan, [facility] [id number] [place] [address] 14 Dec, 2010 [facility] [id number] [place] [address] 14 Dec, 2010 [facility] [id number] [place] [address] Sep, [facility] [id number] [place] [address] July, [facility] [id number] [place] [address] Apr, [facility] [id number] [place] [address] Mar, [facility] [id number] [place] [address] Feb, [facility] [id number] [place] [address] Feb, [facility] [id number] [place] [address] Feb, [facility] [id number] [place] [address] Feb, [facility] [id number] [place] [address] Feb, [facility] [id number] [place] [address] Feb, [facility] [id number] [place] [address] Feb, [facility] [id number] [place] [address] Dec, [facility] [id number] [place] [address] Jan, [facility] [id number] [place] [address] 14 Apr, 2008 IMMUNIZATIONS No Known Immunizations [...] History Hyperglycemia 2012 Hospitalization History [facility] 11/28/2015-12/04/20152015 Hospitalization History Schizophrenia 09/26/16 Hospitalization History AMS, UTI, hyponatremia-[facility] 10/21/16 Hospitalization History stent placed 02/02/17 Hospitalization History stent placed 02/2017 Hospitalization History [facility]- Syncope, Dehydration and Hypotension. 06/08/2017 Hospitalization History [facility]- Dehydrated 08/2018
--- OUTSIDE RECORDS SUMMARY | 2019-07-05 08:12 | XMS REPORT ---
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 Role Phone WOOD CALDERON Unavailable PROBLEMS Type Condition ICD9-CM Code CDR74-ZD Code Onset Dates Condition S tatus SNOMED Code Problem Coronary artery disease invo lving [place] coronary artery of [place] heart without angina pectoris I25.10 Active 1641 [id number] Problem Bipolar affective disorder, current episode mixed, current episode severity unspecified F31.60 Active 9457540 08 Problem half-way current use of insulin Z79.4 Active 790822107 Problem Chronic idiopathic constipation K59.04 Active 24296362 Problem Age-related incipient cataract of both eyes H25.09 3 Active 095847455 Problem 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 Active 143365241 Problem Essential hypertension I10 Active 38876190 Problem Diabetes E11.9 Active 69522879 Problem Diabetes 1.5, 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 469944203 Problem Slow transit constipation K59.01 Acti ve 84717856 Problem Food allergy Z91.018 Active 7675856 01 Problem Irritable bowel syndrome with both constipation and diarrh ea K58.2 Active 01918265 Problem Irritable bowel syndrome with diarrhea K58.0 Active 274787599 Problem Arthritis of back M47.9 Active 68 984165 Problem Pacemaker Z95.0 Active 966270629 Problem Type 2 diabetes mellitus with diabetic chronic kidney disease E11.22 Active 60936763 Problem Constipation K59.00 Active 6164006 8 Problem CVA (cerebral vascular accident) I63.9 Active 151397114 Problem Psychosis, unspecified psychosis type F29 Active 14759113 Problem Irritable bowel syndrome with both constipation and diarrh ea K58.2 Active 68712740 Problem half-way (current) use of insulin Z79.4 Active 315085677 Problem Chronic kidney disease, stage 3 (moderate) N18.3 Active 726452694 Problem Irritable bowel syndrome with diarrhea K58.0 Active [id number] ALLERGIES No Information ENCOUNTERS Encounter Location Date Diagnosis [place] [address] [address] Feb, Type 2 diabetes mellitus with diabetic c hronic kidney disease E11.22 ; Chronic kidney disease, stage 3 (moderate) N18.3 ; half-way (current) use of insulin Z79.4 ; Weight loss R63.4 ; Colon cancer screening Z12.11 ; Irritable bowel syndrome with both constipation and diarrhea K58.2 ; Essential hypertension I10 ; Pacemaker Z95.0 and Food allergy Z91.018 [place] [address] [address] Jan, Diabetes E11.9 [place] [address] [address] Jan, [address] [facility] [address] Dec, Bipolar affective disorder, current episode mixed, current episode severity unspecified F31.60 [place] [address] [address] Dec, [place] [address] [address] Nov, Diabetes E11.9 [place] [address] [address] Oct, [place] [address] [address] Oct, [place] [address] [address] Sep, Generalized abdominal pain R10.84 ; Slow transit constipation K59.01 and Diabetes E11.9 [facility] [address] [facility] [id number] [address] [place] [address] Aug, Viral upper respiratory trac t infection J06.9 [facility] [address] [address] Aug, [facility] [address] [place] [id number] [place] [address] Aug, Bipolar affective disorder, current epis ode mixed, current episode severity unspecified F31.60 [facility] [address] [place] [id number] [place] [address] Aug, Bipolar affective disorder, current epis ode mixed, current episode severity unspecified F31.[address] [facility] [address] [facility] [id number] [address] [place] [address] Aug, Viral upper respiratory trac t infection J06.9 [place] [address] [place] [id number] [place] [address] Aug, [place] [address] [place] [id number] [place] [address] Jun, Type 2 diabetes mellitus with diabetic c ataract E11.36 and half-way current use of insulin Z79.4 [place] [address] [place] [id number] [place] [address] May, [facility] [address] [place] [id number] [place] [address] Apr, [place] [address] [address] Apr, Diabetes E11.9 [place] [address] [place] [id number] [place] [address] Apr, Bipolar affective disorder, current epis ode mixed, current episode severity unspecified F31.60 [facility] [address] [place] [id number] [place] [address] Apr, [place] [address] [address] Mar, [place] [address] [place] [id number] [place] [address] Mar, Psychosis, unspecified psychosis type F2 9 and Bipolar affective disorder, current episode mixed, current episode severity unspecified F31.60 [place] [address] [address] Mar, [facility] [address] [place] [address] Mar, Low back pain M54.5 and Arth ritis of back M47.9 [place] [address] [address] Mar, [facility] [address] [place] [id number] [place] [address] Feb, Abdominal pain R10.9 and Con stipation K59.00 [place] [address] [address] Feb, Vertigo R42 ; Type 2 diabetes mellitus w ith diabetic cataract E11.36 ; Hyperglycemia R73.9 and Essential hypertension I10 [place] [address] [address] Jan, [place] [address] [address] Dec, [place] [address] [address] Dec, [facility] [address] [place] [id number] [address] [place] [address] Dec, Dizziness R42 and Diabetes 1 .5, 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 [place] [address] [address] Dec, [place] [address] [address] Dec, [place] [address] [address] Dec, Psychosis, unspecified psychosis type F2 9 and Bipolar affective disorder, current episode mixed, current episode severity unspecified F31.60 [place] [address] [address] Dec, [place] [address] [address] Dec, [place] [address] [address] Dec, Type 2 diabetes mellitus with diabetic c ataract E11.36 ; 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 [id number] [address] [place] [address] Aug, Upper respiratory tract infe ction, unspecified type J06.9 ; Chronic idiopathic constipation K59.04 ; Fluid level behind tympanic membrane of both ears H65.93 and Abdominal pain R10.9 [place] [address] [address] July, Diabetes E11.9 [place] [address] [address] Jun, Dehydration E86.0 ; Diabetes E11.9 and H yperglycemia R73.9 [place] [address] [address] Jun, [place] [address] [address] Jun, Vertigo R42 ; Syncope, unspecified synco pe type R55 ; Diabetes E11.9 and Hyperglycemia R73.9 [place] [address] [address] May, Psychosis, unspecified psychosis type F2 9 and Bipolar affective disorder, current episode mixed, current episode severity unspecified F31.60 [facility] [address] [place] [id number] [place] [address] May, [facility] [address] [address] May, Diabetes E[address].9 [facility] [address] [facility] [id number] [place] [id number] Apr, Dental examination Z01.20 and Dental car ies K02.9 [facility] [address] [address] Apr, Dental examination Z01.20 and Dental abs cess K04.7 [place] [address] [address] Mar, Psychosis, unspecified psychosis type F2 9 and Bipolar affective disorder, current episode mixed, current episode severity unspecified F31.60 [place] [address] [address] Mar, [facility] [address] [address] Feb, [facility] [address] [address] Feb, Left wrist pain M25.532 [place] [address] [address] Jan, [facility] [address] [address] Jan, Psychosis, unspecified psychosis type F2 9 and Bipolar affective disorder, current episode mixed, current episode severity unspecified F31.60 [facility] [address] [address] Jan, Diabetes E11.[address] [facility] [address] [facility] [id number] [address] [place] [address] 07 Jan, 2017 Left wrist pain M25.532 [facility] [address] [address] Dec, Psychosis, unspecified psychosis type F2 9 and Bipolar affective disorder, current episode mixed, current episode severity unspecified F31.60 [facility] [address] [address] Dec, Syncope, unspecified syncope type R55 ; Vertigo R42 ; Diabetes E11.9 ; Psychosis, unspecified psychosis type F29 and Fall, initial encounter W19.XXXA [facility] [address] [address] Dec, Diabetes E11.9 ; Neck pain M54.2 and Fela tigo R42 [facility] [address] [address] 13 Nov, 2016 [facility] [address] [facility] [id number] [place] [address] 08 Nov, 2016 [facility] [address] [address] 08 Nov, 2016 [facility] [address] [address] 06 Nov, 2016 Diabetes E11.9 [facility] [address] [address] 05 Nov, 2016 Diabetes E11.9 [facility] [address] [address] Oct, [facility] [address] [place] [id number] [place] [id number] Oct, [facility] [address] [address] Oct, [facility] [address] [address] Oct, Bipolar affective disorder, current epis ode mixed, current episode severity unspecified F31.60 [facility] [address] [place] [id number] [place] [id number] Sep, [facility] [address] [address] Sep, Bipolar affective disorder, current epis ode mixed, current episode severity unspecified F31.60 [facility] [address] [place] [id number] [address] [place] [address] Sep, Acute maxillary sinusitis, r ecurrence not specified J01.00 [facility] [address] [address] 07 Sep, 2016 Diabetes E11.9 [place] [address] [address] July, Diabetes E11.9 [place] [address] [address] July, Diabetes E11.9 [place] [address] [address] Jun, [place] [address] [address] May, Bipolar affective disorder, current epis ode mixed, current episode severity unspecified F31.60 [facility] [address] [place] [id number] [address] [place] [address] May, Acute non-recurrent maxillar y sinusitis J01.00 [place] [address] [address] 10 Apr, 2016 Psychosis, unspecified psychosis type F2 9 and Bipolar affective disorder, current episode mixed, current episode severity unspecified F31.60 [facility] [address] [place] [id number] [address] [place] [address] Apr, Dysuria R30.0 ; Other viral agents as the cause of diseases classified elsewhere B97.89 and Acute upper respiratory infection, unspecified J06.9 [place] [address] [address] Mar, Diabetes E11.9 ; Urine leukocytes R82.99 and Psychosis, unspecified psychosis type F29 [place] [address] [address] Mar, Diabetes E11.9 [facility] [address] [place] [id number] [place] [address] Feb, [facility] [address] [address] Jan, [facility] [address] [address] Dec, Psychosis, unspecified psychosis type F2 9 [facility] [address] [address] Dec, [facility] [address] [place] [address] Dec, [facility] [address] [address] Dec, Psychosis, unspecified psychosis type F2 9 [facility] [address] [address] Nov, Schizoaffective disorder, unspecified ty pe F25.9 [facility] [address] [address] Oct, [facility] [address] [place] [address] Oct, Conjunctivitis of right eye, unspecified conjunctivitis type H10.9 [facility] [address] [place] [id number] [place] [address] Aug, [facility] [address] [facility] [place] [id number] Jun, Encounter for dental examination Z01.20 [facility] [address] [place] [id number] [place] [address] Jun, Diabetes E11.9 and Bipolar affect, depre ssed F31.30 [facility] [address] [address] Jun, Other bipolar disorder F31.89 [place] [address] [address] Jun, [facility] [place] [facility] [address] [facility] [id number] [place] [address] Apr, [facility] [place] [facility] [address] [facility] [id number] [place] [address] Dec, [facility] [place] [facility] [address] [id number] [place] [address] Dec, [facility] [place] [facility] [address] [id number] [place] [address] Sep, [facility] [place] [facility] [address] [facility] [id number] [place] [address] Jun, [facility] [place] [facility] [address] [id number] [place] [address] Jun, [facility] [place] [facility] [address] [id number] [place] [address] Mar, [facility] [place] [facility] [address] [id number] [place] [address] Mar, [facility] [place] [facility] [address] [id number] [place] [address] Nov, [facility] [place] [facility] [address] [id number] [place] [address] Nov, [facility] [place] [facility] [address] [id number] [place] [address] Sep, [facility] [place] [facility] [address] [id number] [place] [address] Sep, 2013 [facility] [place] [facility] [address] [id number] [place] [address] Sep, [facility] [place] [facility] [address] [id number] [place] [address] Sep, 2013 [facility] [place] [facility] [address] [id number] [place] [address] Sep, [facility] [place] [facility] [address] [id number] [place] [address] Aug, [facility] [place] [facility] [address] [id number] [place] [address] Aug, [facility] [place] [facility] [address] [id number] [place] [address] Aug, [facility] [place] [facility] [address] [facility] [id number] [place] [address] Aug, [facility] [place] [facility] [address] [id number] [place] [address] Aug, [facility] [place] [facility] [address] [id number] [place] [address] Aug, [facility] [place] [facility] [address] [id number] [place] [address] July, [facility] [place] [facility] [address] [id number] [place] [address] July, [facility] [place] [facility] [address] [id number] [place] [address] Jun, [facility] [place] [facility] [address] [id number] [place] [address] Jun, [facility] [place] [facility] [address] [id number] [place] [address] Jun, [facility] [place] [facility] [address] [id number] [place] [address] Jun, [facility] [place] [facility] [address] [id number] [place] [address] Jun, [facility] [place] [facility] [address] [id number] [place] [address] Jun, [facility] [place] [facility] [address] [id number] [place] [address] Jun, [facility] [place] [facility] [address] [id number] [place] [address] Jun, [facility] [place] [facility] [address] [id number] [place] [address] May, [facility] [place] [facility] [address] [id number] [place] [address] May, [facility] [place] [facility] [address] [id number] [place] [address] May, [facility] [place] [facility] [address] [id number] [place] [address] May, [facility] [place] [facility] [address] [id number] [place] [address] May, [facility] [place] [facility] [address] [id number] [place] [address] May, [facility] [place] [facility] [address] [id number] [place] [address] May, [facility] [place] [facility] [address] [id number] [place] [address] May, [facility] [place] [facility] [address] [id number] [place] [address] May, [facility] [place] [facility] [address] [id number] [place] [address] Apr, [facility] [place] [facility] [address] [id number] [place] [address] Apr, [facility] [place] [facility] [address] [id number] [place] [address] Mar, [facility] [place] [facility] [address] [id number] [place] [address] Mar, [facility] [place] [facility] [address] [id number] [place] [address] Feb, [facility] [place] [facility] [address] [id number] [place] [address] Feb, [facility] [place] [facility] [address] [id number] [place] [address] Nov, [facility] [place] [facility] [address] [id number] [place] [address] 12 Nov, 2012 [facility] [place] [facility] [address] [id number] [place] [address] Oct, [facility] [place] [facility] [address] [id number] [place] [address] 08 Oct, 2012 [facility] [place] [facility] [address] [facility] [id number] [place] [address] Oct, [facility] [place] [facility] [address] [facility] [id number] [place] [address] Oct, [facility] [place] [facility] [address] [id number] [place] [address] Oct, [facility] [place] [facility] [address] [id number] [place] [address] Sep, [facility] [place] [facility] [address] [facility] [id number] [place] [address] Sep, [facility] [place] [facility] [address] [id number] [place] [address] Sep, [facility] [place] [facility] [address] [id number] [place] [address] Sep, [facility] [place] [facility] [address] [id number] [place] [address] Aug, [facility] [place] [facility] [address] [id number] [place] [address] Aug, [facility] [place] [facility] [address] [id number] [place] [address] Aug, [facility] [place] [facility] [address] [id number] [place] [address] Aug, [facility] [place] [facility] [address] [id number] [place] [address] Jun, [facility] [place] [facility] [address] [facility] [id number] [place] [address] 18 Jun, 2012 [facility] [place] [facility] [address] [id number] [place] [address] Jun, [facility] [place] [facility] [address] [id number] [place] [address] Jun, [facility] [place] [facility] [address] [id number] [place] [address] May, [facility] [place] [facility] [address] [id number] [place] [address] 18 May, 2012 [facility] [place] [facility] [address] [id number] [place] [address] 18 May, 2012 [facility] [place] [facility] [address] [id number] [place] [address] 13 May, 2012 [facility] [place] [facility] [address] [id number] [place] [address] 11 May, 2012 [facility] [place] [facility] [address] [id number] [place] [address] 04 May, 2012 [facility] [place] [facility] [address] [id number] [place] [address] 21 Apr, 2012 [facility] [place] [facility] [address] [id number] [place] [address] 20 Apr, 2012 [facility] [place] [facility] [address] [id number] [place] [address] Apr, [facility] [place] [facility] [address] [id number] [place] [address] Apr, [facility] [address] [id number] [place] [address] Apr, [facility] [address] [id number] [place] [address] Feb, [facility] [address] [id number] [place] [address] Feb, [facility] [address] [id number] [place] [address] Feb, [facility] [address] [id number] [place] [address] Feb, [facility] [address] [id number] [place] [address] Feb, [facility] [address] [id number] [place] [address] Feb, [facility] [address] [id number] [place] [address] Feb, [facility] [address] [id number] [place] [address] 19 Feb, 2012 [facility] [address] [id number] [place] [address] 14 Feb, 2012 [facility] [address] [id number] [place] [address] 14 Feb, 2012 [facility] [address] [id number] [place] [address] Feb, [facility] [address] [id number] [place] [address] Feb, [facility] [address] [id number] [place] [address] Feb, [facility] [address] [id number] [place] [address] Feb, [facility] [address] [id number] [place] [address] Feb, [facility] [address] [id number] [place] [address] Feb, [facility] [address] [id number] [place] [address] Feb, [facility] [address] [id number] [place] [address] Feb, [facility] [address] [id number] [place] [address] Feb, [facility] [address] [id number] [place] [address] Feb, [facility] [address] [id number] [place] [address] Feb, [facility] [address] [id number] [place] [address] Feb, [facility] [address] [id number] [place] [address] Feb, [facility] [address] [id number] [place] [address] Feb, [facility] [address] [id number] [place] [address] Feb, [facility] [address] [id number] [place] [address] Feb, [facility] [address] [id number] [place] [address] Jan, [facility] [address] [id number] [place] [address] Jan, [facility] [address] [id number] [place] [address] Dec, [facility] [address] [id number] [place] [address] Dec, [facility] [address] [id number] [place] [address] Dec, [facility] [address] [id number] [place] [address] Dec, [facility] [address] [id number] [place] [address] Nov, [facility] [address] [id number] [place] [address] Nov, [facility] [address] [id number] [place] [address] Nov, [facility] [address] [id number] [place] [address] Nov, [facility] [address] [id number] [place] [address] Oct, [facility] [address] [id number] [place] [address] Oct, [facility] [address] [id number] [place] [address] Sep, [facility] [address] [id number] [place] [address] Sep, [facility] [address] [facility] [id number] [place] [address] Sep, [facility] [address] [id number] [place] [address] Aug, [facility] [address] [id number] [place] [address] Aug, [facility] [address] [id number] [place] [address] 14 Aug, 2011 [facility] [address] [id number] [place] [address] Aug, [facility] [address] [id number] [place] [address] Aug, [facility] [address] [id number] [place] [address] July, [facility] [address] [id number] [place] [address] July, [facility] [address] [id number] [place] [address] July, [facility] [address] [id number] [place] [address] July, [facility] [address] [id number] [place] [address] July, [facility] [address] [id number] [place] [address] Jun, [facility] [address] [id number] [place] [address] May, [facility] [address] [id number] [place] [address] 16 Apr, 2011 [facility] [address] [id number] [place] [address] Apr, [facility] [address] [id number] [place] [address] Apr, [facility] [address] [id number] [place] [address] Mar, [facility] [address] [id number] [place] [address] Mar, [facility] [address] [id number] [place] [address] Mar, [facility] [address] [id number] [place] [address] Mar, [facility] [address] [id number] [place] [address] Mar, [facility] [address] [facility] [id number] [place] [address] Mar, [facility] [address] [id number] [place] [address] Mar, [facility] [address] [id number] [place] [address] Mar, [facility] [address] [id number] [place] [address] Feb, [facility] [address] [id number] [place] [address] Feb, [facility] [address] [id number] [place] [address] Feb, [facility] [address] [id number] [place] [address] Feb, [facility] [address] [id number] [place] [address] Feb, [facility] [address] [id number] [place] [address] Jan, [facility] [address] [id number] [place] [address] Jan, [facility] [address] [id number] [place] [address] Jan, [facility] [address] [id number] [place] [address] Jan, [facility] [id number] [place] [address] 14 Dec, 2010 [facility] [id number] [place] [address] 14 Dec, 2010 [facility] [id number] [place] [address] Sep, [facility] [id number] [place] [address] July, [facility] [id number] [place] [address] Apr, [facility] [id number] [place] [address] Mar, [facility] [id number] [place] [address] Feb, [facility] [id number] [place] [address] Feb, [facility] [id number] [place] [address] Feb, [facility] [id number] [place] [address] Feb, [facility] [id number] [place] [address] Feb, [facility] [id number] [place] [address] Feb, [facility] [id number] [place] [address] Feb, [facility] [id number] [place] [address] Dec, [facility] [id number] [place] [address] Jan, [facility] [id number] [place] [address] 14 Apr, 2008 IMMUNIZATIONS No Known Immunizations [...] History Hyperglycemia 2012 Hospitalization History [facility] 11/28/2015-12/04/20152015 Hospitalization History Schizophrenia 09/26/16 Hospitalization History AMS, UTI, hyponatremia-[facility] 10/21/16 Hospitalization History stent placed 02/02/17 Hospitalization History stent placed 02/2017 Hospitalization History [facility]- Syncope, Dehydration and Hypotension. 06/08/2017 Hospitalization History [facility]- Dehydrated 08/2018
--- OUTSIDE RECORDS SUMMARY | 2019-07-05 08:13 | XMS REPORT ---
Author Author Melina CALDERON Organization [facility] Address [address] [place] [address] Care Team Providers Care Supervisor Liquefaction Name Role Phone WOOD CALDERON Unavailable PROBLEMS Type Condition ICD9-CM Code EER35-SJ Code Onset Dates Condition S tatus SNOMED Code Problem Coronary artery disease invo lving [place] coronary artery of [place] heart without angina pectoris I25.10 Active 1641 [id number] Problem Bipolar affective disorder, current episode mixed, current episode severity unspecified F31.60 Active 1701332 08 Problem intermediate current use of insulin Z79.4 Active 122002539 Problem Chronic idiopathic constipation K59.04 Active 72065949 Problem Age-related incipient cataract of both eyes H25.09 3 Active 450040997 Problem 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 Active 990641272 Problem Essential hypertension I10 Active 09316637 Problem Diabetes E11.9 Active 42278183 Problem Diabetes 1.5, 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 823415325 Problem Slow transit constipation K59.01 Acti ve 43513330 Problem Food allergy Z91.018 Active 5191136 01 Problem Irritable bowel syndrome with both constipation and diarrh ea K58.2 Active 99770127 Problem Irritable bowel syndrome with diarrhea K58.0 Active 323431450 Problem Arthritis of back M47.9 Active 68 820237 Problem Pacemaker Z95.0 Active 314844459 Problem Irritable bowel syndrome with diarrhea K58.0 Active 608101232 Problem Constipation K59.00 Active 8805471 8 Problem CVA (cerebral vascular accident) I63.9 Active 400964220 Problem Psychosis, unspecified psychosis type F29 Active 64123906 Problem Irritable bowel syndrome with both constipation and diarrh ea K58.2 Active 00292343 Problem Type 2 diabetes mellitus with diabetic chronic kidney disease E11.22 Active 47193697 Problem intermediate (current) use of insulin Z79.4 Active 879536373 Problem Chronic kidney disease, stage 3 (moderate) N18.3 Active 888343158 ALLERGIES No Information ENCOUNTERS Encounter Location Date Diagnosis [place] [address] [address] Feb, Type 2 diabetes mellitus with diabetic c hronic kidney disease E11.22 ; Chronic kidney disease, stage 3 (moderate) N18.3 ; intermediate (current) use of insulin Z79.4 ; Weight loss R63.4 ; Colon cancer screening Z12.11 ; Irritable bowel syndrome with both constipation and diarrhea K58.2 ; Essential hypertension I10 ; Pacemaker Z95.0 and Food allergy Z91.018 [place] [address] [address] Jan, Diabetes E11.9 [place] [address] [address] Jan, [address] [id number] [address] Dec, Bipolar affective disorder, current episode mixed, current episode severity unspecified F31.60 [place] [address] [address] Dec, [place] [address] [address] Nov, Diabetes E11.9 [place] [address] [address] Oct, [place] [address] [address] Oct, [place] [address] [address] Sep, Generalized abdominal pain R10.84 ; Slow transit constipation K59.01 and Diabetes E11.9 [facility] [address] [facility] [id number] [address] [place] [address] Aug, Viral upper respiratory trac t infection J06.9 [facility] [address] [address] Aug, [facility] [address] [place] [id number] [place] [address] Aug, Bipolar affective disorder, current epis ode mixed, current episode severity unspecified F31.60 [facility] [address] [place] [id number] [place] [address] Aug, Bipolar affective disorder, current epis ode mixed, current episode severity unspecified F31.60 [facility] [address] [facility] [id number] [address] [place] [address] Aug, Viral upper respiratory trac t infection J06.9 [place] [address] [place] [id number] [place] [address] Aug, [place] [address] [place] [id number] [place] [address] Jun, Type 2 diabetes mellitus with diabetic c ataract E11.36 and intermediate current use of insulin Z79.4 [place] [address] [place] [id number] [place] [address] May, [facility] [address] [place] [id number] [place] [address] Apr, [place] [address] [address] Apr, Diabetes E11.9 [place] [address] [place] [id number] [place] [address] Apr, Bipolar affective disorder, current epis ode mixed, current episode severity unspecified F31.60 [facility] [address] [place] [id number] [place] [address] Apr, [place] [address] [address] Mar, [place] [address] [place] [id number] [place] [address] Mar, Psychosis, unspecified psychosis type F2 9 and Bipolar affective disorder, current episode mixed, current episode severity unspecified F31.60 [place] [address] [address] Mar, [facility] [address] [place] [address] Mar, Low back pain M54.5 and Arth ritis of back M47.9 [place] [address] [address] Mar, [facility] [address] [place] [id number] [place] [address] Feb, Abdominal pain R10.9 and Con stipation K59.00 [place] [address] [address] Feb, Vertigo R42 ; Type 2 diabetes mellitus w ith diabetic cataract E11.36 ; Hyperglycemia R73.9 and Essential hypertension I10 [place] [address] [address] Jan, [place] [address] [address] Dec, [place] [address] [address] Dec, [facility] [address] [place] [id number] [place] [address] Dec, Dizziness R42 and Diabetes 1 .5, 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 [place] [address] [address] Dec, [place] [address] [address] Dec, [place] [address] [address] Dec, Psychosis, unspecified psychosis type F2 9 and Bipolar affective disorder, current episode mixed, current episode severity unspecified F31.60 [place] [address] [address] Dec, [place] [address] [address] Dec, [place] [address] [address] Dec, Type 2 diabetes mellitus with diabetic c ataract E11.36 ; 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 and Hyperglycemia R73.9 [place] [address] [address] Oct, [place] [address] [address] Oct, [place] [address] [address] Oct, [place] [address] [address] Sep, [facility] [address] [facility] [id number] [address] [place] [address] Aug, Upper respiratory tract infe ction, unspecified type J06.9 ; Chronic idiopathic constipation K59.04 ; Fluid level behind tympanic membrane of both ears H65.93 and Abdominal pain R10.9 [place] [address] [address] July, Diabetes E11.9 [place] [address] [address] Jun, Dehydration E86.0 ; Diabetes E11.9 and H yperglycemia R73.9 [place] [address] [address] Jun, [place] [address] [address] Jun, Vertigo R42 ; Syncope, unspecified synco pe type R55 ; Diabetes E11.9 and Hyperglycemia R73.9 [place] [address] [address] May, Psychosis, unspecified psychosis type F2 9 and Bipolar affective disorder, current episode mixed, current episode severity unspecified F31.60 [facility] [address] [place] [id number] [place] [address] May, [facility] [address] [address] May, Diabetes E11.9 [facility] [address] [facility] [id number] [place] [id number] Apr, Dental examination Z01.20 and Dental car ies K02.9 [facility] [address] [address] Apr, Dental examination Z01.20 and Dental abs cess K04.7 [place] [address] [address] Mar, Psychosis, unspecified psychosis type F2 9 and Bipolar affective disorder, current episode mixed, current episode severity unspecified F31.60 [place] [address] [address] Mar, [facility] [address] [address] Feb, [facility] [address] [address] Feb, Left wrist pain M25.532 [place] [address] [address] Jan, [facility] [address] [address] Jan, Psychosis, unspecified psychosis type F2 9 and Bipolar affective disorder, current episode mixed, current episode severity unspecified F31.60 [facility] [address] [address] Jan, Diabetes E11.9 [facility] [address] [facility] [id number] [address] [place] [address] 07 Jan, 2017 Left wrist pain M25.532 [facility] [address] [address] Dec, Psychosis, unspecified psychosis type F2 9 and Bipolar affective disorder, current episode mixed, current episode severity unspecified F31.60 [facility] [address] [address] Dec, Syncope, unspecified syncope type R55 ; Vertigo R42 ; Diabetes E11.9 ; Psychosis, unspecified psychosis type F29 and Fall, initial encounter W19.XXXA [facility] [address] [address] Dec, Diabetes E11.9 ; Neck pain M54.2 and Fela tigo R42 [facility] [address] [address] 13 Nov, 2016 [facility] [address] [facility] [id number] [place] [address] 08 Nov, 2016 [facility] [address] [address] 08 Nov, 2016 [facility] [address] [address] 06 Nov, 2016 Diabetes E11.9 [facility] [address] [address] 05 Nov, 2016 Diabetes E11.9 [facility] [address] [address] Oct, [facility] [address] [place] [id number] [place] [id number] Oct, [facility] [address] [address] Oct, [facility] [address] [address] Oct, Bipolar affective disorder, current epis ode mixed, current episode severity unspecified F31.60 [facility] [address] [place] [id number] [place] [id number] Sep, [facility] [address] [address] Sep, Bipolar affective disorder, current epis ode mixed, current episode severity unspecified F31.60 [facility] [address] [place] [id number] [address] [place] [address] Sep, Acute maxillary sinusitis, r ecurrence not specified J01.00 [facility] [address] [address] 07 Sep, 2016 Diabetes E11.9 [place] [address] [address] July, Diabetes E11.9 [place] [address] [address] July, Diabetes E11.9 [place] [address] [address] Jun, [place] [address] [address] May, Bipolar affective disorder, current epis ode mixed, current episode severity unspecified F31.60 [facility] [address] [place] [id number] [address] [place] [address] May, Acute non-recurrent maxillar y sinusitis J01.00 [place] [address] [address] 10 Apr, 2016 Psychosis, unspecified psychosis type F2 9 and Bipolar affective disorder, current episode mixed, current episode severity unspecified F31.60 [facility] [address] [place] [id number] [address] [place] [address] Apr, Dysuria R30.0 ; Other viral agents as the cause of diseases classified elsewhere B97.89 and Acute upper respiratory infection, unspecified J06.9 [place] [address] [address] Mar, Diabetes E11.9 ; Urine leukocytes R82.99 and Psychosis, unspecified psychosis type F29 [place] [address] [address] Mar, Diabetes E11.9 [facility] [address] [place] [id number] [place] [address] Feb, [facility] [address] [address] Jan, [facility] [address] [address] Dec, Psychosis, unspecified psychosis type F2 9 [facility] [address] [address] Dec, [facility] [address] [place] [address] Dec, [facility] [address] [address] Dec, Psychosis, unspecified psychosis type F2 9 [facility] [address] [address] Nov, Schizoaffective disorder, unspecified ty pe F25.9 [facility] [address] [address] Oct, [facility] [address] [place] [address] Oct, Conjunctivitis of right eye, unspecified conjunctivitis type H10.9 [facility] [address] [place] [id number] [place] [address] Aug, [facility] [address] [id number] [place] [id number] Jun, Encounter for dental examination Z01.20 [facility] [address] [place] [id number] [place] [address] Jun, Diabetes E11.9 and Bipolar affect, depre ssed F31.30 [facility] [address] [address] Jun, Other bipolar disorder F31.89 [place] [address] [address] Jun, [facility] [place] [facility] [address] [facility] [id number] [facility] [place] [address] Apr, [facility] [place] [facility] [address] [facility] [id number] [facility] [place] [address] Dec, [facility] [place] [facility] [address] [id number] [facility] [place] [address] Dec, [facility] [place] [facility] [address] [id number] [place] [address] Sep, [facility] [place] [facility] [address] [facility] [id number] [facility] [place] [address] Jun, [facility] [place] [facility] [address] [id number] [place] [address] Jun, [facility] [place] [facility] [address] [id number] [place] [address] Mar, [facility] [place] [facility] [address] [id number] [place] [address] Mar, [facility] [place] [facility] [address] [id number] [facility] [place] [address] Nov, [facility] [place] [facility] [address] [id number] [facility] [place] [address] Nov, [facility] [place] [facility] [address] [id number] [place] [address] Sep, [facility] [place] [facility] [address] [id number] [place] [address] Sep, 2013 [facility] [place] [facility] [address] [id number] [facility] [place] [address] Sep, [facility] [place] [facility] [address] [id number] [place] [address] Sep, 2013 [facility] [place] [facility] [address] [id number] [place] [address] Sep, [facility] [place] [facility] [address] [id number] [facility] [place] [address] Aug, [facility] [place] [facility] [address] [id number] [place] [address] Aug, [facility] [place] [facility] [address] [id number] [facility] [place] [address] Aug, [facility] [place] [facility] [address] [facility] [id number] [place] [address] Aug, [facility] [place] [facility] [address] [id number] [place] [address] Aug, [facility] [place] [facility] [address] [id number] [place] [address] Aug, [facility] [place] [facility] [address] [id number] [place] [address] July, [facility] [place] [facility] [address] [id number] [place] [address] July, [facility] [place] [facility] [address] [id number] [place] [address] Jun, [facility] [place] [facility] [address] [id number] [place] [address] Jun, [facility] [place] [facility] [address] [id number] [place] [address] Jun, [facility] [place] [facility] [address] [id number] [place] [address] Jun, [facility] [place] [facility] [address] [id number] [place] [address] Jun, [facility] [place] [facility] [address] [id number] [place] [address] Jun, [facility] [place] [facility] [address] [id number] [place] [address] Jun, [facility] [place] [facility] [address] [id number] [place] [address] Jun, [facility] [place] [facility] [address] [id number] [place] [address] May, [facility] [place] [facility] [address] [id number] [place] [address] May, [facility] [place] [facility] [address] [id number] [place] [address] May, [facility] [place] [facility] [address] [id number] [place] [address] May, [facility] [place] [facility] [address] [id number] [place] [address] May, [facility] [place] [facility] [address] [id number] [place] [address] May, [facility] [place] [facility] [address] [id number] [place] [address] May, [facility] [place] [facility] [address] [id number] [place] [address] May, [facility] [place] [facility] [address] [id number] [place] [address] May, [facility] [place] [facility] [address] [id number] [place] [address] Apr, [facility] [place] [facility] [address] [id number] [place] [address] Apr, [facility] [place] [facility] [address] [id number] [place] [address] Mar, [facility] [place] [facility] [address] [id number] [place] [address] Mar, [facility] [place] [facility] [address] [id number] [place] [address] Feb, [facility] [place] [facility] [address] [id number] [place] [address] Feb, [facility] [place] [facility] [address] [id number] [place] [address] Nov, [facility] [place] [facility] [address] [id number] [place] [address] 12 Nov, 2012 [facility] [place] [facility] [address] [id number] [place] [address] Oct, [facility] [place] [facility] [address] [id number] [place] [address] 08 Oct, 2012 [facility] [place] [facility] [address] [facility] [id number] [facility] [place] [address] Oct, [facility] [place] [facility] [address] [facility] [id number] [facility] [place] [address] Oct, [facility] [place] [facility] [address] [id number] [facility] [place] [address] Oct, [facility] [place] [facility] [address] [id number] [facility] [place] [address] Sep, [facility] [place] [facility] [address] [facility] [id number] [facility] [place] [address] Sep, [facility] [place] [facility] [address] [id number] [place] [address] Sep, [facility] [place] [facility] [address] [id number] [place] [address] Sep, [facility] [place] [facility] [address] [id number] [place] [address] Aug, [facility] [place] [facility] [address] [id number] [place] [address] Aug, [facility] [place] [facility] [address] [id number] [place] [address] Aug, [facility] [place] [facility] [address] [id number] [place] [address] Aug, [facility] [place] [facility] [address] [id number] [place] [address] Jun, [facility] [place] [facility] [address] [facility] [id number] [place] [address] 18 Jun, 2012 [facility] [place] [facility] [address] [id number] [place] [address] Jun, [facility] [place] [facility] [address] [id number] [place] [address] Jun, [facility] [place] [facility] [address] [id number] [place] [address] May, [facility] [place] [facility] [address] [id number] [place] [address] 18 May, 2012 [facility] [place] [facility] [address] [id number] [place] [address] 18 May, 2012 [facility] [place] [facility] [address] [id number] [place] [address] 13 May, 2012 [facility] [place] [facility] [address] [id number] [place] [address] 11 May, 2012 [facility] [place] [facility] [address] [id number] [place] [address] 04 May, 2012 [facility] [place] [facility] [address] [id number] [place] [address] 21 Apr, 2012 [facility] [place] [facility] [address] [id number] [place] [address] 20 Apr, 2012 [facility] [place] [facility] [address] [id number] [place] [address] Apr, [facility] [place] [facility] [address] [id number] [place] [address] Apr, [facility] [place] [facility] [address] [id number] [place] [address] Apr, [facility] [place] [facility] [address] [id number] [place] [address] Feb, [facility] [address] [id number] [place] [address] Feb, [facility] [address] [id number] [place] [address] Feb, [facility] [address] [id number] [place] [address] Feb, [facility] [address] [id number] [place] [address] Feb, [facility] [address] [id number] [place] [address] Feb, [facility] [address] [id number] [place] [address] Feb, [facility] [address] [id number] [place] [address] 19 Feb, 2012 [facility] [address] [id number] [place] [address] 14 Feb, 2012 [facility] [address] [id number] [place] [address] 14 Feb, 2012 [facility] [address] [id number] [place] [address] Feb, [facility] [address] [id number] [place] [address] Feb, [facility] [address] [id number] [place] [address] Feb, [facility] [address] [id number] [place] [address] Feb, [facility] [address] [id number] [place] [address] Feb, [facility] [address] [id number] [place] [address] Feb, [facility] [address] [id number] [place] [address] Feb, [facility] [address] [id number] [place] [address] Feb, [facility] [address] [id number] [place] [address] Feb, [facility] [address] [id number] [place] [address] Feb, [facility] [address] [id number] [place] [address] Feb, [facility] [address] [facility] [id number] [place] [address] Feb, [facility] [address] [id number] [place] [address] Feb, [facility] [address] [id number] [place] [address] Feb, [facility] [address] [id number] [place] [address] Feb, [facility] [address] [id number] [place] [address] Feb, [facility] [address] [id number] [place] [address] Jan, [facility] [address] [id number] [place] [address] Jan, [facility] [address] [id number] [place] [address] Dec, [facility] [address] [id number] [place] [address] Dec, [facility] [address] [id number] [place] [address] Dec, [facility] [address] [id number] [place] [address] Dec, [facility] [address] [id number] [place] [address] Nov, [facility] [address] [id number] [place] [address] Nov, [facility] [address] [id number] [place] [address] Nov, [facility] [address] [id number] [place] [address] Nov, [facility] [address] [id number] [place] [address] Oct, [facility] [address] [id number] [place] [address] Oct, [facility] [address] [id number] [place] [address] Sep, [facility] [address] [id number] [place] [address] Sep, [facility] [address] [facility] [id number] [place] [address] Sep, [facility] [address] [id number] [place] [address] Aug, [facility] [address] [id number] [place] [address] Aug, [facility] [address] [id number] [place] [address] 14 Aug, 2011 [facility] [address] [id number] [place] [address] Aug, [facility] [address] [id number] [place] [address] Aug, [facility] [address] [id number] [place] [address] July, [facility] [address] [id number] [place] [address] July, [facility] [address] [id number] [place] [address] July, [facility] [address] [id number] [place] [address] July, [facility] [address] [id number] [place] [address] July, [facility] [address] [id number] [place] [address] Jun, [facility] [address] [id number] [place] [address] May, [facility] [address] [id number] [place] [address] 16 Apr, 2011 [facility] [address] [id number] [place] [address] Apr, [facility] [address] [id number] [place] [address] Apr, [facility] [address] [id number] [place] [address] Mar, [facility] [address] [id number] [place] [address] Mar, [facility] [address] [id number] [place] [address] Mar, [facility] [address] [id number] [place] [address] Mar, [facility] [address] [id number] [place] [address] Mar, [facility] [address] [facility] [id number] [place] [address] Mar, [facility] [address] [id number] [place] [address] Mar, [facility] [address] [id number] [place] [address] Mar, [facility] [address] [id number] [place] [address] Feb, [facility] [address] [id number] [place] [address] Feb, [facility] [address] [id number] [place] [address] Feb, [facility] [address] [id number] [place] [address] Feb, [facility] [address] [id number] [place] [address] Feb, [facility] [address] [id number] [place] [address] Jan, [facility] [address] [id number] [place] [address] Jan, [facility] [address] [id number] [place] [address] Jan, [facility] [address] [id number] [place] [address] Jan, [facility] [id number] [place] [address] 14 Dec, 2010 [facility] [id number] [place] [address] 14 Dec, 2010 [facility] [id number] [place] [address] Sep, [facility] [id number] [place] [address] July, [facility] [id number] [place] [address] Apr, [facility] [id number] [place] [address] Mar, [facility] [id number] [place] [address] Feb, [facility] [id number] [place] [address] Feb, [facility] [id number] [place] [address] Feb, [facility] [id number] [place] [address] Feb, [facility] [id number] [place] [address] Feb, [facility] [id number] [place] [address] Feb, [facility] [id number] [place] [address] Feb, [facility] [id number] [place] [address] Dec, [facility] [id number] [place] [address] Jan, [facility] [id number] [place] [address] 14 Apr, 2008 IMMUNIZATIONS No Known Immunizations [...] History Hyperglycemia 2012 Hospitalization History [facility] 11/28/2015-12/04/20152015 Hospitalization History Schizophrenia 09/26/16 Hospitalization History AMS, UTI, hyponatremia-[facility] 10/21/16 Hospitalization History stent placed 02/02/17 Hospitalization History stent placed 02/2017 Hospitalization History [facility]- Syncope, Dehydration and Hypotension. 06/08/2017 Hospitalization History [facility]- Dehydrated 08/2018
[2019-07-05] MEDS ORDERED: ceFAZolin INJECTION 1,000 MG VIAL IV ONE (08:15)
[2019-07-05] MEDS ORDERED: NS IV 1000 ML 1,000 ML IV SCH ×2 (08:15→13:21)
[2019-07-05] MEDS ORDERED: BACITRACIN INJECTION 50,000 UNIT, SODIUM CHLORIDE 0.9% IRRIGATIO 500 ML IR ONE ×2 (08:15)
--- OUTSIDE RECORDS SUMMARY | 2019-07-05 08:21 | XMS REPORT | Continuity of Care Document ---
Demographics Preferred Language Unknown Marital Status Unknown Restoration Affiliation Unknown Race Unknown Ethnic Group Unknown Author Organization Unknown Address Unknown Phone Unavailable Allergies Active Description Code Type Severity Reaction Onset Reported/Identified Relationship to Patient Clinical Status Yes corn [id number] Drug Allergy Unknown N/A 02/07/2010 Yes [place] Food Allergy N/A N/A 07/30/2011 Yes Pork Food Allergy N/A N/A 07/30/2011 Yes [place] Food Allergy N/A N/A 07/30/2011 Yes yeast Food Allergy N/A N/A 07/30/2011 Yes [place] Food Allergy 07/30/2011 Yes Pork Food Allergy 07/30/2011 Yes [place] Food Allergy 07/30/2011 Yes yeast Food Allergy 07/30/2011 Yes CORN Food Allergy N/A N/A 06/23/2012 Yes CORN Food Allergy 06/23/2012 Yes Bleach (Sodium Hypochlorite) [id number] Drug Allergy Unknown N/A 09/25/2016 Yes perfume [id number] Drug Allergy Unknown N/A 09/25/2016 Medications There [...] NEUROSIS) WOOD CALDERON APRN 307.47 NIGHTMARE DISORDER WODO CALDERON APRN 425.4 CARDIOMYOPATHY WOOD CALDERON APRN 427.9 RHYTHM DISORDER WOOD CALDERON APRN 455.6 HEMORRHOIDS YUMIKO DIRECTOR LABOR STANDARDSELWOOD S 578.1 red blood in bowel movement (hematochezia) CHALO CALDERON APRNA S 625.9 pelvic pain YUMIKO DIRECTOR LABOR STANDARDSCHALOA S 787.91 diarrhea YUMIKO DIRECTOR LABOR STANDARDSEL RodriguezNDA S 796.2 Blood Pressure Isolated Elevated YUMIKO DIRECTOR LABOR STANDARDSELWOOD S V58.69 taking high-risk medication YUMIKO DIRECTOR LABOR STANDARDS, WOOD S V65.49 Self-Care Education - Need To Report Postmenopausal Bl eeding WOOD CALDERON APRN S V76.10 visit for: screening exam malignant neoplasm breast BOONE IRAHETA DO K 272.4 HYPERLIPIDEMIA BOONE IRAHETA DO K 296.40 BIPOLAR I DISORDER, MOST RECENT EPISODE, MANIC BOONE IRAHETA DO K 296.80 BIPOLAR DISORDER NOS MARBIN IRAHETA DOA K 296.90 EPISODIC MOOD DISORDERS MARBIN IRAHETA DOA K 300.00 anxiety MARBIN IRAHETA DOA K 300.4 DYSTHYMIC DISORDER (DEPRESSIVE NEUROSIS) MARBIN IRAHETA DOA K 307.47 NIGHTMARE DISORDER MARBIN IRAHETA DOA K 425.4 CARDIOMYOPATHY BOONE IRAHETA DO K 427.9 RHYTHM DISORDER MARBIN IRAHETA DOA K 455.6 HEMORRHOIDS MARBIN IRAHETA DOA K 578.1 red blood in bowel movement (hematochezia) MARBIN IRAHETA DOA K 625.9 pelvic pain MARBIN IRAHETA DOA K 787.91 diarrhea MYRTLE SPICER BOONE K 796.2 Blood Pressure Isolated Elevated MYRTLE SPICER BOONE K V58.69 taking high-risk medication MARBIN IRAHETA DOA K V65.49 Self-Care Education - Need To Report Postmenopausal Bleeding MYRTLE SPICERBOONE Belinda V76.10 visit for: screening exam malignant neoplasm breast MADL DIRECTOR LABOR STANDARDS, MIGUEL L 272 .4 HYPERLIPIDEMIA MADL DIRECTOR LABOR STANDARDS, MIGUEL L 296 .40 BIPOLAR I DISORDER, MOST RECENT EPISODE, MANIC MADL DIRECTOR LABOR STANDARDS, MIGUEL L 296 .80 BIPOLAR DISORDER NOS MADL DIRECTOR LABOR STANDARDS, MIGUEL L 296 .90 EPISODIC MOOD DISORDERS MADL DIRECTOR LABOR STANDARDS, MIGUEL L 300 .00 anxiety MADL DIRECTOR LABOR STANDARDS, MIGUEL L 300 .4 DYSTHYMIC DISORDER (DEPRESSIVE NEUROSIS) MADL DIRECTOR LABOR STANDARDS, MIGUEL L 307 .47 NIGHTMARE DISORDER MADL DIRECTOR LABOR STANDARDS, MIGUEL L 425 .4 CARDIOMYOPATHY MADL DIRECTOR LABOR STANDARDS, MIGUEL L 427 .9 RHYTHM DISORDER MADL DIRECTOR LABOR STANDARDS, MIGUEL L 455 .6 HEMORRHOIDS MADL DIRECTOR LABOR STANDARDS, MIGUEL L 578 .1 red blood in bowel movement (hematochezia) MADL DIRECTOR LABOR STANDARDS, MIGUEL L 625 .9 pelvic pain MADL DIRECTOR LABOR STANDARDS, MIGUEL L 787 .91 diarrhea MADL DIRECTOR LABOR STANDARDS, MIGUEL L 796 .2 Blood Pressure Isolated Elevated MADL DIRECTOR LABOR STANDARDS, MIGUEL L V58 .69 taking high-risk medication MADL DIRECTOR LABOR STANDARDS, MIGUEL L V65 .49 Self-Care Education - Need To Report Postmenopausal Bleeding MADL DIRECTOR LABOR STANDARDS, MIGUEL L V76 .10 visit for: screening exam malignant neoplasm breast CARLITA WAITE MD 272.4 HYPERLIPIDEMIA CARLITA WAITE MD 296.4 0 BIPOLAR I DISORDER, MOST RECENT EPISODE, MANIC CARLITA WAITE MD 296.8 0 BIPOLAR DISORDER NOS CARLITA WAITE MD 296.9 0 EPISODIC MOOD DISORDERS RAVINDRA GLASER, CARLITA 300.0 0 anxiety CARLITA WAITE MD 300.4 DYSTHYMIC DISORDER (DEPRESSIVE NEUROSIS) CARLITA WAITE MD 307.4 7 NIGHTMARE DISORDER CARLITA WAITE MD 425.4 CARDIOMYOPATHY CARLITA WAITE MD 427.9 RHYTHM DISORDER CARLITA WAITE MD 455.6 HEMORRHOIDS CARLITA WAITE MD 578.1 red blood in bowel movement (hematochezia) CARLITA WAITE MD 625.9 pelvic pain CARLITA WAITE MD 787.9 1 diarrhea CARLITA WAITE MD 796.2 Blood Pressure Isolated Elevated CARLITA WAITE MD V58.6 9 taking high-risk medication CARLITA WAITE MD V65.4 9 Self-Care Education - Need To Report Postmenopausal Bleeding CARLITA WAITE MD V76.1 0 visit for: screening exam malignant neoplasm breast [...] DAYANA ESTRADA APRN R 455.6 HEMORRHOIDS ESTRADA DIRECTOR LABOR STANDARDS, DAYANA R 578.1 red blood in bowel movement (hematochezia) ESTRADA DIRECTOR LABOR STANDARDS, DAYANA R 625.9 pelvic pain SEAN HAIRSTONN, DAYANA R 787.91 diarrhea SEAN DIRECTOR LABOR STANDARDS, DAYANA R 796.2 Blood Pressure Isolated Elevated SEAN HAIRSTONN, DAYANA R V58.69 taking high-risk medication SEAN HAIRSTONN, DAYANA R V65.49 Self-Care Education - Need To Report Postmenopausal Bl eeding SEAN HAIRSTONN, DAYANA R V76.10 visit for: screening exam malignant neoplasm breast ESTEE HAIRSTONN, KATHY R 272.4 HYPERLIPIDEMIA ETSEE HAIRSTONN, KATHY R 296.40 BIPOLAR I DISORDER, MOST RECENT EPISODE, MANIC ESTEE HAIRSTONN, KATHY R 296.80 BIPOLAR DISORDER NOS ESTEE [...] Self-Care Education - Need To Report Postmenopausal Bl eeding ESTEE MORRIS, KATHY R V76.10 visit for: screening exam malignant neoplasm breast 09/27/2007 KEN SPICER, CHIQUITA F 250 .00 DIABETES MELLITUS POORLY CONTROLLED 09/27/2007 KEN SPICER, CHIQUITA F 401 .1 ESSENTIAL HYPERTENSION BENIGN 09/27/2007 KEN SPICER, CHIQUITA F 553 .3 HIATAL HERNIA 09/27/2007 KEN SPICER, CHIQUITA F 616 .10 VULVITIS 09/27/2007 YUMIKO DIRECTOR LABOR STANDARDS, WOOD S 250.00 DIABETES MELLITUS POORLY CONTROLLED 09/27/2007 YUMIKO DIRECTOR LABOR STANDARDS, WOOD S 401.1 ESSENTIAL HYPERTENSION BENIGN 09/27/2007 YUMIKO DIRECTOR LABOR STANDARDS, WOOD S 553.3 HIATAL HERNIA 09/27/2007 YUMIKO DIRECTOR LABOR STANDARDS, WOOD S 616.10 VULVITIS 09/27/2007 TRUNG PHD, ERNESTO Chatman 250.00 DIABETES MELLITUS POORLY CONTROLLED 09/27/2007 TRUNG PHD, ERNESTO A 401.1 ESSENTIAL HYPERTENSION BENIGN 09/27/2007 TRUNG PHD, ERNESTO A 553.3 HIATAL HERNIA 09/27/2007 TRUNG PHD, ERNESTO A 616.10 VULVITIS 09/27/2007 MYRTLE DO BOONE K 250.00 DIABETES MELLITUS POORLY [...] BOONE K 616.10 VULVITIS 09/27/2007 IRAHETA DO, BONOE K 250.00 DIABETES MELLITUS POORLY CONTROLLED 09/27/2007 IRAHETA DO BOONE K 401.1 ESSENTIAL HYPERTENSION BENIGN 09/27/2007 IRAHETA DO, BOONE K 553.3 HIATAL HERNIA 09/27/2007 IRAHETA DO, BOONE K 616.10 VULVITIS 09/27/2007 250.00 SNEHAL BETES MELLITUS POORLY CONTROLLED 09/27/2007 401.1 ESSE NTIAL HYPERTENSION BENIGN 09/27/2007 553.3 HIAT AL HERNIA 09/27/2007 616.10 VUL VITIS 09/27/2007 250.00 SNEHAL BETES MELLITUS POORLY CONTROLLED 09/27/2007 401.1 ESSE NTIAL HYPERTENSION BENIGN 09/27/2007 553.3 HIAT AL HERNIA 09/27/2007 616.10 VUL VITIS 09/27/2007 250.00 SNEHAL BETES MELLITUS POORLY CONTROLLED 09/27/2007 401.1 ESSE NTIAL HYPERTENSION BENIGN 09/27/2007 553.3 HIAT AL HERNIA 09/27/2007 616.10 VUL VITIS 09/27/2007 250.00 SNEHAL BETES MELLITUS POORLY CONTROLLED 09/27/2007 401.1 ESSE NTIAL HYPERTENSION BENIGN 09/27/2007 553.3 HIAT AL HERNIA 09/27/2007 616.10 VUL VITIS 09/27/2007 IRAHETA DO, BOONE K 250.00 DIABETES MELLITUS POORLY CONTROLLED 09/27/2007 IRAHETA DO, BOONE K 401.1 ESSENTIAL HYPERTENSION BENIGN 09/27/2007 IRAHETA DO, BOONE K 553.3 HIATAL HERNIA 09/27/2007 IRAHETA DO, BOONE K 616.10 VULVITIS 09/27/2007 YUMIKO DIRECTOR LABOR STANDARDS, WOOD S 250.00 DIABETES MELLITUS POORLY CONTROLLED 09/27/2007 YUMIKO DIRECTOR LABOR STANDARDS, WOOD S 401.1 ESSENTIAL HYPERTENSION BENIGN 09/27/2007 YUMIKO DIRECTOR LABOR STANDARDS, WOOD S 553.3 HIATAL HERNIA 09/27/2007 YUMIKO DIRECTOR LABOR STANDARDS, WOOD S 616.10 VULVITIS 09/27/2007 IRAHETA DO, BOONE K 250.00 DIABETES MELLITUS POORLY CONTROLLED 09/27/2007 IRAHETA DO, BOONE K 401.1 ESSENTIAL HYPERTENSION BENIGN 09/27/2007 IRAHETA DO, BOONE K 553.3 HIATAL HERNIA 09/27/2007 IRAHETA DO, BOONE K 616.10 VULVITIS 09/27/2007 MADL DIRECTOR LABOR STANDARDS, MIGUEL L 250 .00 DIABETES MELLITUS POORLY CONTROLLED 09/27/2007 MADL DIRECTOR LABOR STANDARDS, MIGUEL L 401 .1 ESSENTIAL HYPERTENSION BENIGN 09/27/2007 MADL DIRECTOR LABOR STANDARDS, MIGUEL L 553 .3 HIATAL HERNIA 09/27/2007 LOUANN DIRECTOR LABOR STANDARDS, MIGUEL L 616 .10 VULVITIS 09/27/2007 CARLITA WAITE MD 250.0 0 DIABETES MELLITUS POORLY CONTROLLED 09/27/2007 CARLITA WAITE MD 401.1 ESSENTIAL HYPERTENSION BENIGN 09/27/2007 CARLITA WAITE MD 553.3 HIATAL HERNIA 09/27/2007 CARLITA WAITE MD 616.1 0 VULVITIS 09/27/2007 SEAN DIRECTOR LABOR STANDARDS, DAYANA R 250.00 DIABETES MELLITUS POORLY CONTROLLED 09/27/2007 SEAN DIRECTOR LABOR STANDARDS, DAYANA R 401.1 ESSENTIAL HYPERTENSION BENIGN 09/27/2007 SEAN DIRECTOR LABOR STANDARDS, DAYANA R 553.3 HIATAL HERNIA 09/27/2007 SEAN DIRECTOR LABOR STANDARDS, DAYANA R 616.10 VULVITIS 09/27/2007 ESTEE DIRECTOR LABOR STANDARDS, KATHY R 250.00 DIABETES MELLITUS POORLY CONTROLLED 09/27/2007 ESTEE DIRECTOR LABOR STANDARDS, KATHY R 401.1 ESSENTIAL HYPERTENSION BENIGN 09/27/2007 ESTEE DIRECTOR LABOR STANDARDS, KATHY R 553.3 HIATAL HERNIA 09/27/2007 ESTEE DIRECTOR LABOR STANDARDS, KATHY R 616.10 VULVITIS 11/10/2007 CHIQUITA ROGERS DO 296 .80 MO BIPOLAR NOS 11/10/2007 WOOD CALDERON APRN [...] MO BIPOLAR NOS 11/22/2007 CHIQUITA ROGERS DO V72 .31 Pelvic Exam (Internal) 11/22/2007 WOOD CALDERON APRN V72.31 Pelvic Exam (Internal) 11/22/2007 TRUNG PHD, ERNESTO Chatman V72.31 Pelvic Exam (Internal) 11/22/2007 BOONE IRAHETA DO V72.31 Pelvic Exam (Internal) 11/22/2007 BOONE IRAHETA DO V72.31 Pelvic Exam (Internal) 11/22/2007 BOONE IRAHETA DO V72.31 Pelvic Exam (Internal) 11/22/2007 V72.31 Pel maria de jesus Exam (Internal) 11/22/2007 V72.31 Pel maria de jesus Exam (Internal) 11/22/2007 V72.31 Pel maria de jesus Exam (Internal) 11/22/2007 V72.31 Pel maria de jesus Exam (Internal) 11/22/2007 BOONE IRAHETA DO V72.31 Pelvic Exam (Internal) 11/22/2007 WOOD CALDERON APRN V72.31 Pelvic Exam (Internal) 11/22/2007 BOONE IRAHETA DO V72.31 Pelvic Exam (Internal) 11/22/2007 LOUANN DIRECTOR LABOR STANDARDS, MIGUEL York V72 .31 Pelvic Exam (Internal) 11/22/2007 RAVINDRA GLASER, CARLITA V72.3 1 Pelvic Exam (Internal) 11/22/2007 SEAN DIRECTOR LABOR STANDARDS, DAYANA Almonte V72.31 Pelvic Exam (Internal) 11/22/2007 ESTEE DIRECTOR LABOR STANDARDS, KATHY R V72.31 Pelvic Exam (Internal) 04/22/2008 CHIQUITA ROGERS DO 250 .02 DIABETES MELLITUS WITHOUT MENTION OF COMPLICATION TYPE II OR UNSPECIFIED TYPE UNCONTROLLED 04/22/2008 WOOD CALDERON APRN 250.02 DIABETES MELLITUS WITHOUT MENTION OF COM PLICATION TYPE II OR UNSPECIFIED TYPE UNCONTROLLED 04/22/2008 TRUNG PHD, ERNESTO Chatman 250.02 DIABETES MELLITUS WITHOUT MENTION OF COM PLICATION TYPE II OR UNSPECIFIED TYPE UNCONTROLLED 04/22/2008 BOONE IRAHETA DO 250.02 DIABETES MELLITUS WITHOUT MENTION OF COMPLICATION TYPE II OR UNSPECIFIED TYPE UNCONTROLLED 04/22/2008 BOONE IRAHETA DO 250.02 DIABETES MELLITUS WITHOUT MENTION OF COMPLICATION TYPE II OR UNSPECIFIED TYPE UNCONTROLLED 04/22/2008 BOONE IRAHETA DO 250.02 DIABETES MELLITUS WITHOUT MENTION OF COMPLICATION TYPE II OR UNSPECIFIED TYPE UNCONTROLLED 04/22/2008 250.02 SNEHAL BETES MELLITUS WITHOUT MENTION OF COMPLICATION TYPE II OR UNSPECIFIED TYPE UNCONTROLLED 04/22/2008 250.02 SNEHAL BETES MELLITUS WITHOUT MENTION OF COMPLICATION TYPE II OR UNSPECIFIED TYPE UNCONTROLLED 04/22/2008 250.02 SNEHAL BETES MELLITUS WITHOUT MENTION OF COMPLICATION TYPE II OR UNSPECIFIED TYPE UNCONTROLLED 04/22/2008 250.02 SNEHAL BETES MELLITUS WITHOUT MENTION OF COMPLICATION TYPE II OR UNSPECIFIED TYPE UNCONTROLLED 04/22/2008 IRAHETA DO, BOONE K 250.02 DIABETES MELLITUS WITHOUT MENTION OF COMPLICATION TYPE II OR UNSPECIFIED TYPE UNCONTROLLED 04/22/2008 CHALO CALDERON APRNA S 250.02 DIABETES MELLITUS WITHOUT MENTION OF COM PLICATION TYPE II OR UNSPECIFIED TYPE UNCONTROLLED 04/22/2008 MYRTLE DO, BOONE K 250.02 DIABETES MELLITUS WITHOUT MENTION OF COMPLICATION TYPE II OR UNSPECIFIED TYPE UNCONTROLLED 04/22/2008 MIGUEL LEW APRN 250 .02 DIABETES MELLITUS WITHOUT MENTION OF COMPLICATION TYPE II OR UNSPECIFIED TYPE UNCONTROLLED 04/22/2008 CARLITA WAITE MD 250.0 2 DIABETES MELLITUS WITHOUT MENTION OF COMPLICATION TYPE II OR UNSPECIFIED TYPE UNCONTROLLED 04/22/2008 SEAN DIRECTOR LABOR STANDARDSDAYANA Rodriguez R 250.02 DIABETES MELLITUS WITHOUT MENTION OF COM PLICATION TYPE II OR UNSPECIFIED TYPE UNCONTROLLED 04/22/2008 ESTEE DIRECTOR LABOR STANDARDSKATHY Rodriguez R 250.02 DIABETES MELLITUS WITHOUT MENTION OF COM PLICATION TYPE II OR UNSPECIFIED TYPE UNCONTROLLED 05/31/2008 CHIQUITA ROGERS DO 564 .1 IRRITABLE BOWEL SYNDROME 05/31/2008 CHIQUITA ROGERS DO 786 .2 cough 05/31/2008 WOOD CALDERON APRN S 564.1 IRRITABLE BOWEL SYNDROME 05/31/2008 CHALO CALDERON APRNA S 786.2 cough 05/31/2008 TRUNG JADE, ERNESTO Chatman 564.1 IRRITABLE BOWEL SYNDROME 05/31/2008 TRUNG JADE, ERNESTO Chatman 786.2 cough 05/31/2008 MYRTLE DO BOONE K 564.1 IRRITABLE BOWEL SYNDROME 05/31/2008 IRAHETA DO BOONE K 786.2 cough 05/31/2008 IRAHETA DO BOONE K 564.1 IRRITABLE BOWEL SYNDROME 05/31/2008 IRAHETA DO, BOONE K 786.2 cough 05/31/2008 IRAHETA DO, BOONE K 564.1 IRRITABLE BOWEL SYNDROME 05/31/2008 IRAHETA DO, BOONE K 786.2 cough 05/31/2008 564.1 IRRI TABLE BOWEL SYNDROME 05/31/2008 786.2 cough 05/31/2008 564.1 IRRI TABLE BOWEL SYNDROME 05/31/2008 786.2 cough 05/31/2008 564.1 IRRI TABLE BOWEL SYNDROME 05/31/2008 786.2 cough 05/31/2008 564.1 IRRI TABLE BOWEL SYNDROME 05/31/2008 786.2 cough 05/31/2008 MYRTLE SPICER BOONE K 564.1 IRRITABLE BOWEL SYNDROME 05/31/2008 IRAHETA DO, BOONE K 786.2 cough 05/31/2008 CHALO CALDERON APRNA S 564.1 IRRITABLE BOWEL SYNDROME 05/31/2008 EL CALDERON APRNNDA S 786.2 cough 05/31/2008 MARBIN IRAHEAT DOA K 564.1 IRRITABLE BOWEL SYNDROME 05/31/2008 MARBIN IRAHETA DOA K 786.2 cough 05/31/2008 MADMIGUEL York APRN L 564 .1 IRRITABLE BOWEL SYNDROME 05/31/2008 MADJaylen MORRIS, MIGUEL L 786 .2 cough 05/31/2008 CARLITA WAITE MD 564.1 IRRITABLE BOWEL SYNDROME 05/31/2008 CARLITA WAITE MD 786.2 cough 05/31/2008 SEAN MORRIS, DAYANA R 564.1 IRRITABLE BOWEL SYNDROME 05/31/2008 SEAN MORRIS, DAYANA R 786.2 cough 05/31/2008 ESTEE MORRIS, KATHY R 564.1 IRRITABLE BOWEL SYNDROME 05/31/2008 ESTEE DIRECTOR LABOR STANDARDS, KATHY R 786.2 cough 07/06/2008 CHIQUITA ROGERS DO 079 .99 VIRAL SYNDROME 07/06/2008 WOOD CALDERON APRN S 079.99 VIRAL SYNDROME 07/06/2008 TRUNG JADE, ERNESTO A 079.99 VIRAL SYNDROME 07/06/2008 BOONE IRAHETA DO K 079.99 VIRAL SYNDROME 07/06/2008 BOONE IRAHETA DO K 079.99 VIRAL SYNDROME 07/06/2008 MARBIN IRAHETA DOA K 079.99 VIRAL SYNDROME 07/06/2008 079.99 VIR AL SYNDROME 07/06/2008 079.99 VIR AL SYNDROME 07/06/2008 079.99 VIR AL SYNDROME 07/06/2008 079.99 VIR AL SYNDROME 07/06/2008 MARBIN IRAHETA DOA K 079.99 VIRAL SYNDROME 07/06/2008 WOOD CALDERON APRN S 079.99 VIRAL SYNDROME 07/06/2008 BOONE IRAHETA DO K 079.99 VIRAL SYNDROME 07/06/2008 FRANCISCO LEW APRNA L 079 .99 VIRAL SYNDROME 07/06/2008 CARLITA WAITE MD 079.9 9 VIRAL SYNDROME 07/06/2008 DAYANA ESTRADA APRN R 079.99 VIRAL SYNDROME 07/06/2008 ESTEE MORRIS, KATHY R 079.99 VIRAL SYNDROME 01/09/2009 CHIQUITA ROGERS DO F 461 .9 SINUSITIS ACUTE 01/09/2009 YUMIKO MORRIS, WOOD S 461.9 SINUSITIS ACUTE 01/09/2009 TRUNG JADE, ERNESTO Chatman 461.9 SINUSITIS ACUTE 01/09/2009 IRAHETA DO BOONE K 461.9 SINUSITIS ACUTE 01/09/2009 IRAHETA DO, BOONE K 461.9 SINUSITIS ACUTE 01/09/2009 IRAHETA DO, BOONE K 461.9 SINUSITIS ACUTE 01/09/2009 461.9 SINU SITIS ACUTE 01/09/2009 461.9 SINU SITIS ACUTE 01/09/2009 461.9 SINU SITIS ACUTE 01/09/2009 461.9 SINU SITIS ACUTE 01/09/2009 IRAHETA DO BOONE K 461.9 SINUSITIS ACUTE 01/09/2009 YUMIKO MORRIS, WOOD S 461.9 SINUSITIS ACUTE 01/09/2009 IRAHETA DO BOONE K 461.9 SINUSITIS ACUTE 01/09/2009 MIGUEL LEW APRN L 461 .9 SINUSITIS ACUTE 01/09/2009 RAVINDRA GLASER, CARLITA 461.9 SINUSITIS ACUTE 01/09/2009 DAYANA ESTRADA APRN R 461.9 SINUSITIS ACUTE 01/09/2009 ELOY FONTANEZ APRNINA R 461.9 SINUSITIS ACUTE 06/09/2009 CHIQUITA ROGERS DO F 477 .9 ALLERGIC RHINITIS 06/09/2009 CHIQUITA ROGERS DO F 729 .5 foot pain (soft tissue) 06/09/2009 CHALO CALDERON APRNA S 477.9 ALLERGIC RHINITIS 06/09/2009 EL CALDERON APRNNDA S 729.5 foot pain (soft tissue) 06/09/2009 [...] 729.5 foot pain (soft tissue) 06/09/2009 477.9 DUSTY RGIC RHINITIS 06/09/2009 729.5 foot pain (soft tissue) 06/09/2009 477.9 DUSTY RGIC RHINITIS 06/09/2009 729.5 foot pain (soft tissue) 06/09/2009 477.9 DUSTY RGIC RHINITIS 06/09/2009 729.5 foot pain (soft tissue) 06/09/2009 477.9 DUSTY RGIC RHINITIS 06/09/2009 729.5 foot pain (soft tissue) 06/09/2009 IRAHETA DO BOONE K 477.9 ALLERGIC RHINITIS 06/09/2009 IRAHETA DO, BOONE K 729.5 foot pain (soft tissue) 06/09/2009 WOOD CALDERON APRN S 477.9 ALLERGIC RHINITIS 06/09/2009 CHALO CALDERON APRNA S 729.5 foot pain (soft tissue) 06/09/2009 IRAHETA DO BOONE K 477.9 ALLERGIC RHINITIS 06/09/2009 IRAHETA DO, BOONE K 729.5 foot pain (soft tissue) 06/09/2009 MADJaylen DIRECTOR LABOR STANDARDS, MIGUEL L 477 .9 ALLERGIC RHINITIS 06/09/2009 MADL DIRECTOR LABOR STANDARDS, MIGUEL L 729 .5 foot pain (soft tissue) 06/09/2009 CARLITA WAITE MD 477.9 ALLERGIC RHINITIS 06/09/2009 CARLITA WAITE MD 729.5 foot pain (soft tissue) 06/09/2009 ALESHA ESTRADA APRNIA R 477.9 ALLERGIC RHINITIS 06/09/2009 SEAN MORRIS, DAYANA R 729.5 foot pain (soft tissue) 06/09/2009 ESTEE MORRIS KATHY R 477.9 ALLERGIC RHINITIS 06/09/2009 ESTEE HAIRSTONN KATHY R 729.5 foot pain (soft tissue) 07/07/2009 CHIQUITA ROGERS DO 461 .1 SINUSITIS ACUTE FRONTAL 07/07/2009 WOOD CALDERON APRN S 461.1 SINUSITIS ACUTE FRONTAL 07/07/2009 TRUNG JADE, ERNESTO Chatman 461.1 SINUSITIS ACUTE FRONTAL 07/07/2009 MARBIN IRAHETA DOA K 461.1 SINUSITIS ACUTE FRONTAL 07/07/2009 IRAHETA MARBIN SPICERA K 461.1 SINUSITIS ACUTE FRONTAL 07/07/2009 MRABIN IRAHETA DOA K 461.1 SINUSITIS ACUTE FRONTAL 07/07/2009 461.1 SINU SITIS ACUTE FRONTAL 07/07/2009 461.1 SINU SITIS ACUTE FRONTAL 07/07/2009 461.1 SINU SITIS ACUTE FRONTAL 07/07/2009 461.1 SINU SITIS ACUTE FRONTAL 07/07/2009 MARBIN IRAHETA DOA K 461.1 SINUSITIS ACUTE FRONTAL 07/07/2009 WOOD CALDERON APRN S 461.1 SINUSITIS ACUTE FRONTAL 07/07/2009 BOONE IRAHETA DO K 461.1 SINUSITIS ACUTE FRONTAL 07/07/2009 FRANCISCO LEW APRNA L 461 .1 SINUSITIS ACUTE FRONTAL 07/07/2009 RAVINDRA GLASER, CARLITA 461.1 SINUSITIS ACUTE FRONTAL 07/07/2009 DAYANA ESTRADA APRN R 461.1 SINUSITIS ACUTE FRONTAL 07/07/2009 KATHY FONTANEZ APRN R 461.1 SINUSITIS ACUTE FRONTAL 07/09/2009 CHIQUITA ROGERS DO V58 .69 LONG-TERM (CURRENT) USE OF OTHER MEDICATIONS 07/09/2009 WOOD CALDERON APRN S V58.69 LONG-TERM (CURRENT) USE OF OTHER MEDICATIONS 07/09/2009 TRUNG JADE, ERNESTO Chatman V58.69 LONG-TERM (CURRENT) USE OF OTHER MEDICATIONS 07/09/2009 BOONE IRAHETA DO K V58.69 LONG-TERM (CURRENT) USE OF OTHER MEDICATIONS 07/09/2009 MARBIN IRAHETA DOA K V58.69 LONG-TERM (CURRENT) USE OF OTHER MEDICATIONS 07/09/2009 BOONE IRAHETA DO K V58.69 LONG-TERM (CURRENT) USE OF OTHER MEDICATIONS 07/09/2009 V58.69 YUNIER G-TERM (CURRENT) USE OF OTHER MEDICATIONS 07/09/2009 V58.69 YUNIER G-TERM (CURRENT) USE OF OTHER MEDICATIONS 07/09/2009 V58.69 YUNIER G-TERM (CURRENT) USE OF OTHER MEDICATIONS 07/09/2009 V58.69 YUNIER G-TERM (CURRENT) USE OF OTHER MEDICATIONS 07/09/2009 IRAHETA DO, BOONE K V58.69 LONG-TERM (CURRENT) USE OF OTHER MEDICATIONS 09/08/2009 WERDER DO, CHIQUITA F 078 .19 WARTS FOOT RIGHT 09/08/2009 WERDER DO, CHIQUITA F 465 .9 UPPER RESPIRATORY INFECTION 09/08/2009 WOOD CALDERON APRN S 078.19 WARTS FOOT RIGHT 09/08/2009 WOOD CALDERON APRN 465.9 UPPER RESPIRATORY INFECTION 09/08/2009 TRUNG PHD, ERNESTO Chatman 078.19 WARTS FOOT RIGHT 09/08/2009 TRUNG JADE, ERNESTO A 465.9 UPPER RESPIRATORY INFECTION 09/08/2009 IRAHETA DO BOONE K 078.19 WARTS FOOT RIGHT 09/08/2009 IRAHETA DO, BOONE K 465.9 UPPER RESPIRATORY INFECTION 09/08/2009 IRAHETA DO, BOONE K 078.19 WARTS FOOT RIGHT 09/08/2009 IRAHETA DO, BOONE K 465.9 UPPER RESPIRATORY INFECTION 09/08/2009 IRAHETA DO, BOONE K 078.19 WARTS FOOT RIGHT 09/08/2009 IRAHETA DO, BOONE K 465.9 UPPER RESPIRATORY INFECTION 09/08/2009 078.19 WAR TS FOOT RIGHT 09/08/2009 465.9 UPPE R RESPIRATORY INFECTION 09/08/2009 078.19 WAR TS FOOT RIGHT 09/08/2009 465.9 UPPE R RESPIRATORY INFECTION 09/08/2009 078.19 WAR TS FOOT RIGHT 09/08/2009 465.9 UPPE R RESPIRATORY INFECTION 09/08/2009 078.19 WAR TS FOOT RIGHT 09/08/2009 465.9 UPPE R RESPIRATORY INFECTION 09/08/2009 IRAHETA DO, BOONE K 078.19 WARTS FOOT RIGHT 09/08/2009 IRAHETA DO, BOONE K 465.9 UPPER RESPIRATORY INFECTION 09/08/2009 WOOD CALDERON APRN S 078.19 WARTS FOOT RIGHT 09/08/2009 WOOD CALDERON APRN S 465.9 UPPER RESPIRATORY INFECTION 09/08/2009 BOONE IRAHETA DO K 078.19 WARTS FOOT RIGHT 09/08/2009 BOONE IRAHETA DO K 465.9 UPPER RESPIRATORY INFECTION 09/08/2009 LOUANN DIRECTOR LABOR STANDARDS, MIGUEL L 078 .19 WARTS FOOT RIGHT 09/08/2009 LOUANN DIRECTOR LABOR STANDARDS, MIGUEL L 465 .9 UPPER RESPIRATORY INFECTION 09/08/2009 RAVINDRA GLASER, CARLITA 078.1 9 WARTS FOOT RIGHT 09/08/2009 RAVINDRA GLASER, CARLITA 465.9 UPPER RESPIRATORY INFECTION 09/08/2009 SEAN DIRECTOR LABOR STANDARDS, DAYANA R 078.19 WARTS FOOT RIGHT 09/08/2009 SEAN DIRECTOR LABOR STANDARDS, DAYANA R 465.9 UPPER RESPIRATORY INFECTION 09/08/2009 ESTEE DIRECTOR LABOR STANDARDS, KATHY R 078.19 WARTS FOOT RIGHT 09/08/2009 ESTEE DIRECTOR LABOR STANDARDS, KATHY R 465.9 UPPER RESPIRATORY INFECTION 10/17/2009 CHIQUITA ROGERS DO 296 .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 10/17/2009 WOOD CALDERON APRN S 296.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 10/17/2009 TRUNG PHD, ERNESTO Chatman 296.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 10/17/2009 BOONE IRAHETA DO K 296.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 10/17/2009 BOONE IRAHETA DO K 296.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 10/17/2009 BOONE IRAHETA DO K 296.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 10/17/2009 296.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 10/17/2009 296.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 10/17/2009 296.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 10/17/2009 296.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 10/17/2009 BOONE IRAHETA DO K 296.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 02/12/2010 Ot 250.80 02/12/2010 Ot 300.4 02/12/2010 Ot 403.90 02/12/2010 Ot 414.01 02/12/2010 Ot 427.32 02/12/2010 Ot 428.0 02/12/2010 Ot 428.21 02/12/2010 Ot 477.9 02/12/2010 Ot 530.81 02/12/2010 Ot 553.3 02/12/2010 Ot 584.9 02/12/2010 Ot 585.9 02/12/2010 Ot 716.90 02/12/2010 Ot V12.54 02/12/2010 Ot V45.77 02/12/2010 Ot V45.79 02/25/2010 CHIQUITA ROGERS DO F 427 .89 SINUS TACHYCARDIA 02/25/2010 CHIQUITA ROGERS DO F 427 .9 CARDIAC DYSRHYTHMIA UNSPECIFIED 02/25/2010 CHIQUITA ROGERS DO F 461 .8 ACUTE PANSINUSITIS 02/25/2010 YUMIKO DIRECTOR LABOR STANDARDS, WOOD S 427.89 SINUS TACHYCARDIA 02/25/2010 YUMIKO DIRECTOR LABOR STANDARDS, WOOD S 427.9 CARDIAC DYSRHYTHMIA UNSPECIFIED 02/25/2010 YUMIKO DIRECTOR LABOR STANDARDS, WOOD S 461.8 ACUTE PANSINUSITIS 02/25/2010 TRUNG PHD, ERNESTO Chatman 427.89 SINUS TACHYCARDIA 02/25/2010 TRUNG PHD, ERNESTO Chatman 427.9 CARDIAC DYSRHYTHMIA UNSPECIFIED 02/25/2010 TRUNG PHD, [...] BOONE K 461.8 ACUTE PANSINUSITIS 02/25/2010 427.89 SIN US TACHYCARDIA 02/25/2010 427.9 CARD IAC DYSRHYTHMIA UNSPECIFIED 02/25/2010 461.8 ACUT E PANSINUSITIS 02/25/2010 427.89 SIN US TACHYCARDIA 02/25/2010 427.9 CARD IAC DYSRHYTHMIA UNSPECIFIED 02/25/2010 461.8 ACUT E PANSINUSITIS 02/25/2010 427.89 SIN US TACHYCARDIA 02/25/2010 427.9 CARD IAC DYSRHYTHMIA UNSPECIFIED 02/25/2010 461.8 ACUT E PANSINUSITIS 02/25/2010 427.89 SIN US TACHYCARDIA 02/25/2010 427.9 CARD IAC DYSRHYTHMIA UNSPECIFIED 02/25/2010 461.8 ACUT E PANSINUSITIS 02/25/2010 IRAHETA DO, BOONE K 427.89 SINUS TACHYCARDIA 02/25/2010 IRAHETA DO, BOONE K 427.9 CARDIAC DYSRHYTHMIA UNSPECIFIED 02/25/2010 IRAHETA DO BOONE K 461.8 ACUTE PANSINUSITIS 02/25/2010 YUMIKO DIRECTOR LABOR STANDARDS WOOD S 427.89 SINUS TACHYCARDIA 02/25/2010 YUMIKO DIRECTOR LABOR STANDARDS, WOOD S 461.8 ACUTE PANSINUSITIS 02/25/2010 IRAHETA DO BOONE K 427.89 SINUS TACHYCARDIA 02/25/2010 IRAHETA DO, BOONE K 461.8 ACUTE PANSINUSITIS 02/25/2010 MADL DIRECTOR LABOR STANDARDS, MIGUEL L 427 .89 SINUS TACHYCARDIA 02/25/2010 MADL ARTURO, MIGUEL L 461 .8 ACUTE PANSINUSITIS 02/25/2010 CARLITA WAITE MD 427.8 9 SINUS TACHYCARDIA 02/25/2010 CARLITA WAITE MD 461.8 ACUTE PANSINUSITIS 02/25/2010 DAYANA ESTRADA APRN R 427.89 SINUS TACHYCARDIA 02/25/2010 ALESHA ESTRADA APRNIA R 461.8 ACUTE PANSINUSITIS 02/25/2010 KATHY FONTANEZ APRN R 427.89 SINUS TACHYCARDIA 02/25/2010 ESTEE MORRIS KATHY R 461.8 ACUTE PANSINUSITIS 03/12/2010 Ot 041.4 03/12/2010 Ot 250.00 03/12/2010 Ot 276.1 03/12/2010 Ot 403.90 03/12/2010 Ot 414.00 03/12/2010 Ot 427.31 03/12/2010 Ot 428.0 03/12/2010 Ot 530.81 03/12/2010 Ot 558.9 03/12/2010 Ot 585.9 03/12/2010 Ot 593.9 03/12/2010 Ot 599.0 03/12/2010 Ot V12.54 03/12/2010 Ot V45.81 03/12/2010 Ot V58.66 03/12/2010 Ot V58.69 03/28/2010 WERDER DO, CHIQUITA F 428 .0 CONGESTIVE HEART FAILURE 03/28/2010 WERDER DO, CHIQUITA F 535 .50 GASTRITIS 03/28/2010 YUMIKO MORRIS WOOD S 428.0 CONGESTIVE HEART FAILURE 03/28/2010 EL CALDERON APRNNDA S 535.50 GASTRITIS 03/28/2010 TRUNG PHD, ERNESTO Chatman 428.0 CONGESTIVE HEART FAILURE 03/28/2010 TRUNG PHD, ERNESTO A 535.50 GASTRITIS 03/28/2010 IRAHETA DO, BOONE K 428.0 CONGESTIVE HEART FAILURE 03/28/2010 IRAHETA DO, BOONE K 535.50 GASTRITIS 03/28/2010 IRAHETA DO, BOONE K 428.0 CONGESTIVE HEART FAILURE 03/28/2010 IRAHETA DO, BOONE K 535.50 GASTRITIS 03/28/2010 IRAHETA DO, BOONE K 428.0 CONGESTIVE HEART FAILURE 03/28/2010 IRAHETA DO, BOONE K 535.50 GASTRITIS 03/28/2010 428.0 CATHERNIE ESTIVE HEART FAILURE 03/28/2010 535.50 GAS TRITIS 03/28/2010 428.0 CATHERINE ESTIVE HEART FAILURE 03/28/2010 535.50 GAS TRITIS 03/28/2010 428.0 CATHERINE ESTIVE HEART FAILURE 03/28/2010 535.50 GAS TRITIS 03/28/2010 428.0 CATHERINE ESTIVE HEART FAILURE 03/28/2010 535.50 GAS TRITIS 03/28/2010 IRAHETA DO, BOONE K 428.0 CONGESTIVE HEART FAILURE 03/28/2010 IRAHETA DO, BOONE K 535.50 GASTRITIS 03/28/2010 YUMIKO MORRIS WOOD S 428.0 CONGESTIVE HEART FAILURE 03/28/2010 EL CALDERON APRNNDA S 535.50 GASTRITIS 03/28/2010 IRAHETA DO, BOONE K 428.0 CONGESTIVE HEART FAILURE 03/28/2010 IRAHETA DO, BOONE K 535.50 GASTRITIS 03/28/2010 LOUANN MORRIS MIGUEL L 428 .0 CONGESTIVE HEART FAILURE 03/28/2010 LOUANN MORRIS MIGUEL L 535 .50 GASTRITIS 03/28/2010 CARLITA WAITE MD 428.0 CONGESTIVE HEART FAILURE 03/28/2010 CARLITA WAITE MD 535.5 0 GASTRITIS 03/28/2010 ESTRADA DIRECTOR LABOR STANDARDS, DAYANA R 428.0 CONGESTIVE HEART FAILURE 03/28/2010 SEAN DIRECTOR LABOR STANDARDS, DAYANA R 535.50 GASTRITIS 03/28/2010 ESTEE DIRECTOR LABOR STANDARDS, KATHY R 428.0 CONGESTIVE HEART FAILURE 03/28/2010 ESTEE DIRECTOR LABOR STANDARDS, KATHY R 535.50 GASTRITIS 04/19/2010 CHIQUITA ROGERS DO F 693 .0 DERMATITIS DUE TO DRUGS AND MEDICINES 04/19/2010 KEN SPICER CHIQUITA F 787 .02 nausea 04/19/2010 WOOD CALDERON APRN S 693.0 DERMATITIS DUE TO DRUGS AND MEDICINES 04/19/2010 WOOD CALDERON APRN S 787.02 nausea 04/19/2010 TRUNG JADE, ERNESTO Chatman 693.0 DERMATITIS DUE TO DRUGS AND MEDICINES 04/19/2010 TRUNG JADE, ERNESTO Chatman 787.02 nausea 04/19/2010 BOONE IRAHETA DO K 693.0 DERMATITIS DUE TO DRUGS AND MEDICINES 04/19/2010 BOONE IRAHETA DO 787.02 nausea 04/19/2010 BOONE IRAHETA DO K 693.0 DERMATITIS DUE TO DRUGS AND MEDICINES 04/19/2010 BOONE IRAHETA DO K 787.02 nausea 04/19/2010 MARBIN IRAHETA DOA K 693.0 DERMATITIS DUE TO DRUGS AND MEDICINES 04/19/2010 BOONE IRAHETA DO K 787.02 nausea 04/19/2010 693.0 DERM ATITIS DUE TO DRUGS AND MEDICINES 04/19/2010 787.02 nausea 04/19/2010 693.0 DERM ATITIS DUE TO DRUGS AND MEDICINES 04/19/2010 787.02 nausea 04/19/2010 693.0 DERM ATITIS DUE TO DRUGS AND MEDICINES 04/19/2010 787.02 nausea 04/19/2010 693.0 DERM ATITIS DUE TO DRUGS AND MEDICINES 04/19/2010 787.02 nausea 04/19/2010 BOONE IRAHETA DO K 693.0 DERMATITIS DUE TO DRUGS AND MEDICINES 04/19/2010 BOONE IRAHETA DO K 787.02 nausea 04/19/2010 WOOD CALDERON APRN S 693.0 DERMATITIS DUE TO DRUGS AND MEDICINES 04/19/2010 WOOD CALDERON APRN S 787.02 nausea 04/19/2010 BOONE IRAHETA DO K 693.0 DERMATITIS DUE TO DRUGS AND MEDICINES 04/19/2010 BOONE IRAHE[place] DO K 787.02 nausea 04/19/2010 MIGUEL LEW APRN 693 .0 DERMATITIS DUE TO DRUGS AND MEDICINES 04/19/2010 MIGUEL LEW APRN 787 .02 nausea 04/19/2010 CARLITA WAITE MD 693.0 DERMATITIS DUE TO DRUGS AND MEDICINES 04/19/2010 CARLITA WAITE MD 787.0 2 nausea 04/19/2010 DAYANA ESTRADA APRN R 693.0 DERMATITIS DUE TO DRUGS AND MEDICINES 04/19/2010 DAYANA ESTRADA APRN R 787.02 nausea 04/19/2010 ELOY FONTANEZ APRNINA R 693.0 DERMATITIS DUE TO DRUGS AND [...] 06/05/2010 Ot 473.9 07/25/2010 CHIQUITA ROGERS DO 729 .1 muscle aches, generalized (myalgias) 07/25/2010 CHIQUITA ROGERS DO 780 .79 FATIGUE 07/25/2010 WOOD CALDERON APRN 729.1 muscle aches, generalized (myalgias) 07/25/2010 WOOD CALDERON APRN 780.79 FATIGUE 07/25/2010 ERNESTO NINO PHD 729.1 muscle aches, generalized (myalgias) 07/25/2010 ERNESTO NINO PHD 780.79 FATIGUE 07/25/2010 IRAHETA DO, BOONE K 729.1 muscle aches, generalized (myalgias) 07/25/2010 IRAHETA DO, BOONE K 780.79 FATIGUE 07/25/2010 IRAHETA DO, BOONE K 729.1 muscle aches, generalized (myalgias) 07/25/2010 IRAHETA DO, BOONE K 780.79 FATIGUE 07/25/2010 IRAHETA DO, BOONE K 729.1 muscle aches, generalized (myalgias) 07/25/2010 IRAHETA DO, BOONE K 780.79 FATIGUE 07/25/2010 729.1 musc le aches, generalized (myalgias) 07/25/2010 780.79 FATIGUE 07/25/2010 729.1 musc le aches, generalized (myalgias) 07/25/2010 780.79 FATIGUE 07/25/2010 729.1 musc le aches, generalized (myalgias) 07/25/2010 780.79 FATIGUE 07/25/2010 729.1 musc le aches, generalized (myalgias) 07/25/2010 780.79 FATIGUE 07/25/2010 IRAHETA DO, BOONE K 729.1 muscle aches, generalized (myalgias) 07/25/2010 IRAHETA DO, BOONE K 780.79 FATIGUE 07/25/2010 WOOD CALDERON APRN S 729.1 muscle aches, generalized (myalgias) 07/25/2010 WOOD CALDERON APRN S 780.79 FATIGUE 07/25/2010 IRAHETA DO, BOONE K 729.1 muscle aches, generalized (myalgias) 07/25/2010 IRAHETA DO, BOONE K 780.79 FATIGUE 07/25/2010 FRANCISCO LEW APRNA L 729 .1 muscle aches, generalized (myalgias) 07/25/2010 LOUANN MORRIS MIGUEL L 780 .79 FATIGUE 07/25/2010 CARLITA WAITE MD 729.1 muscle aches, generalized (myalgias) 07/25/2010 CARLITA WAITE MD 780.7 9 FATIGUE 07/25/2010 ESTRADA DIRECTOR LABOR STANDARDS, DAYANA R 729.1 muscle aches, generalized (myalgias) 07/25/2010 SEAN DIRECTOR LABOR STANDARDS, DAYANA R 780.79 FATIGUE 07/25/2010 ESTEE DIRECTOR LABOR STANDARDS, KATHY R 729.1 muscle aches, generalized (myalgias) 07/25/2010 ESTEE DIRECTOR LABOR STANDARDS, KATHY R 780.79 FATIGUE 10/14/2010 WERDER DO, CHIQUITA F 276 .7 HYPERKALEMIA 10/14/2010 WERDER DO, CHIQUITA F 593 .9 RENAL INSUFFICIENCY 10/14/2010 YUMIKO HAIRSTONN, WOOD S 276.7 HYPERKALEMIA 10/14/2010 YUMIKO HAIRSTONN, WOOD S 593.9 RENAL INSUFFICIENCY 10/14/2010 TRUNG PHD, ERNESTO Chatman 276.7 HYPERKALEMIA 10/14/2010 TRUNG PHD, ERNESTO Chatman 593.9 RENAL INSUFFICIENCY 10/14/2010 IRAHETA DO, BOONE K 276.7 HYPERKALEMIA 10/14/2010 IRAHETA DO, BOONE K 593.9 RENAL INSUFFICIENCY 10/14/2010 IRAHETA DO, BOONE K 276.7 HYPERKALEMIA 10/14/2010 IRAHETA DO, BOONE K 593.9 RENAL INSUFFICIENCY 10/14/2010 IRAHETA DO, BOONE K 276.7 HYPERKALEMIA 10/14/2010 IRAHETA DO, BOONE K 593.9 RENAL INSUFFICIENCY 10/14/2010 276.7 HYPE RKALEMIA 10/14/2010 593.9 ULYSSES L INSUFFICIENCY 10/14/2010 276.7 HYPE RKALEMIA 10/14/2010 593.9 ULYSSES L INSUFFICIENCY 10/14/2010 276.7 HYPE RKALEMIA 10/14/2010 593.9 ULYSSES L INSUFFICIENCY 10/14/2010 276.7 HYPE RKALEMIA 10/14/2010 593.9 ULYSSES L INSUFFICIENCY 10/14/2010 IRAHETA DO, BOONE K 276.7 HYPERKALEMIA 10/14/2010 IRAHETA DO, BOONE K 593.9 RENAL INSUFFICIENCY 10/14/2010 YUMIKO HAIRSTONN, WOOD S 276.7 HYPERKALEMIA 10/14/2010 YUMIKO DIRECTOR LABOR STANDARDS, WOOD S 593.9 RENAL INSUFFICIENCY 10/14/2010 IRAHETA DO, BOONE K 276.7 HYPERKALEMIA 10/14/2010 IRAHETA DO, BOONE K 593.9 RENAL INSUFFICIENCY 10/14/2010 MADL DIRECTOR LABOR STANDARDS, MIGUEL L 276 .7 HYPERKALEMIA 10/14/2010 MADL DIRECTOR LABOR STANDARDS, MIGUEL L 593 .9 RENAL INSUFFICIENCY 10/14/2010 CARLITA WAITE MD 276.7 HYPERKALEMIA 10/14/2010 CARLITA WAITE MD 593.9 RENAL INSUFFICIENCY 10/14/2010 ESTRADA DIRECTOR LABOR STANDARDS, DAYANA R 276.7 HYPERKALEMIA 10/14/2010 ESTRADA DIRECTOR LABOR STANDARDS, DAYANA R 593.9 RENAL INSUFFICIENCY 10/14/2010 ESTEE DIRECTOR LABOR STANDARDS, KATHY R 276.7 HYPERKALEMIA 10/14/2010 ESTEE DIRECTOR LABOR STANDARDS, KATHY R 593.9 RENAL INSUFFICIENCY 12/02/2010 Ot 250.00 12/02/2010 Ot 785.1 02/17/2011 CHIQUITA ROGERS DO 296 .40 MO BIPOLAR MANIC UNSPECIFIED 02/17/2011 WOOD CALDERON APRN 296.40 MO BIPOLAR MANIC UNSPECIFIED 02/17/2011 TRUNG PHD, ERNESTO Chatman 296.40 MO BIPOLAR MANIC UNSPECIFIED [...] MO BIPOLAR MANIC UNSPECIFIED 04/16/2011 Ot 414.01 COR ONARY ATHEROSCLEROSIS OF [place] CORON 04/16/2011 Ot 427.9 CARD IAC DYSRHYTHMIA NOS 04/21/2011 CHIQUITA ROGERS DO 307 .47 SI DYSSOMNIA NOS 04/21/2011 WOOD CALDERON APRN 307.47 SI DYSSOMNIA NOS 04/21/2011 TRUNG JADE, ERNESTO Chatman 307.47 SI DYSSOMNIA NOS 04/21/2011 BOONE IRAHETA DO 307.47 SI DYSSOMNIA NOS 04/21/2011 MYRTLE SPICER BOONE Trevino 307.47 SI DYSSOMNIA NOS 04/21/2011 MYRTLE SPICER BOONE Trevino 307.47 SI DYSSOMNIA NOS 04/21/2011 307.47 SI DYSSOMNIA NOS 04/21/2011 307.47 SI DYSSOMNIA NOS 04/21/2011 307.47 SI DYSSOMNIA NOS 04/21/2011 307.47 SI DYSSOMNIA NOS 04/21/2011 MYRTLE SPICER BOONE Trevino 307.47 SI DYSSOMNIA NOS 05/07/2011 Ot 250.02 SNEHAL B MIKA WO COMPL, TYPE II OR UNSPEC TY 05/07/2011 Ot 272.4 HYPE RLIPIDEMIA NEC/NOS 05/07/2011 Ot 275.2 DIS MAGNESIUM METABOLISM 05/07/2011 Ot 311 DEPRES SIVE DISORDER NEC 05/07/2011 Ot 368.8 VISU AL DISTURBANCES NEC 05/07/2011 Ot 401.9 HYPE RTENSION NOS 05/07/2011 Ot 414.00 COR ON ATHEROSCLER NOS TYPE VESSEL, NATIV 05/07/2011 Ot 425.4 PRIM CARDIOMYOPATHY NEC 05/07/2011 Ot 729.5 PAIN IN LIMB 05/07/[address] PAIN NEC 05/07/2011 Ot 788.1 DYSURIA 05/07/2011 Ot 788.63 URG ENCY OF URINATION 05/07/2011 Ot 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 05/07/2011 Ot V45.02 AUT O IMPLANTABLE CARDIAC DEFIBRILLATOR I 05/07/2011 Ot V45.81 AOR TOCORONARY BYPASS 07/30/2011 CHIQUITA ROGERS DO 272 .4 DYSLIPIDEMIA 07/30/2011 CHIQUITA ROGERS DO 414 .00 CORONARY ATHEROSCLEROSIS OF UNSPECIFIED TYPE OF VESSEL [place] OR GRAFT 07/30/2011 CHIQUITA ROGERS DO V45 .81 POSTSURGICAL AORTOCORONARY BYPASS STATUS 07/30/2011 WOOD CALDERON APRN 272.4 DYSLIPIDEMIA 07/30/2011 WOOD CALDERON APRN 414.00 CORONARY ATHEROSCLEROSIS OF UNSPECIFIED TYPE OF VESSEL [place] OR GRAFT 07/30/2011 WOOD CALDERON APRN V45.81 POSTSURGICAL AORTOCORONARY BYPASS STATUS 07/30/2011 TRUNG PHD, ERNESTO A 272.4 DYSLIPIDEMIA 07/30/2011 ERNESTO NINO PHD 414.00 CORONARY ATHEROSCLEROSIS OF UNSPECIFIED TYPE OF VESSEL [place] OR GRAFT 07/30/2011 ERNESTO NINO PHD V45.81 Postsurgical Aortocoronary Bypass Status 07/30/2011 MARBIN IRAHETA DOA K 272.4 DYSLIPIDEMIA 07/30/2011 IRAHETA DO BOONE K 414.00 CORONARY ATHEROSCLEROSIS OF UNSPECIFIED TYPE OF VESSEL [place] OR GRAFT 07/30/2011 MARBIN IRAHETA DOA K V45.81 Postsurgical Aortocoronary Bypass Status 07/30/2011 MYRTLE SPICER BOONE K 272.4 DYSLIPIDEMIA 07/30/2011 IRAHETA DO BOONE K 414.00 CORONARY ATHEROSCLEROSIS OF UNSPECIFIED TYPE OF VESSEL [place] OR GRAFT 07/30/2011 MARBIN IRAHETA DOA K V45.81 Postsurgical Aortocoronary Bypass Status 07/30/2011 MARBIN IRAHETA DOA K 272.4 DYSLIPIDEMIA 07/30/2011 MYRTLE SPICER BOONE K 414.00 CORONARY ATHEROSCLEROSIS OF UNSPECIFIED TYPE OF VESSEL [place] OR GRAFT 07/30/2011 MARBIN IRAHETA DOA K V45.81 Postsurgical Aortocoronary Bypass Status 07/30/2011 272.4 DYSL IPIDEMIA 07/30/2011 414.00 COR ONARY ATHEROSCLEROSIS OF UNSPECIFIED TYPE OF VESSEL [place] OR GRAFT 07/30/2011 V45.81 Pos tsurgical Aortocoronary Bypass Status 07/30/2011 272.4 DYSL IPIDEMIA 07/30/2011 414.00 COR ONARY ATHEROSCLEROSIS OF UNSPECIFIED TYPE OF VESSEL [place] OR GRAFT 07/30/2011 V45.81 Pos tsurgical Aortocoronary Bypass Status 07/30/2011 272.4 DYSL IPIDEMIA 07/30/2011 414.00 COR ONARY ATHEROSCLEROSIS OF UNSPECIFIED TYPE OF VESSEL [place] OR GRAFT 07/30/2011 V45.81 Pos tsurgical Aortocoronary Bypass Status 07/30/2011 272.4 DYSL IPIDEMIA 07/30/2011 414.00 COR ONARY ATHEROSCLEROSIS OF UNSPECIFIED TYPE OF VESSEL [place] OR GRAFT 07/30/2011 V45.81 Pos tsurgical Aortocoronary Bypass Status 07/30/2011 MARBIN IRAHETA DOA K 272.4 DYSLIPIDEMIA 07/30/2011 MYRTLE SPICER BOONE K 414.00 CORONARY ATHEROSCLEROSIS OF UNSPECIFIED TYPE OF VESSEL [place] OR GRAFT 07/30/2011 MYRTLE SPICER BOONE K V45.81 Postsurgical Aortocoronary Bypass Status 07/30/2011 CHALO CALDERON APRNA S 414.00 CORONARY ARTERY DISEASE 07/30/2011 CHALO CALDERON APRNA S V45.81 Postsurgical Aortocoronary Bypass Status 07/30/2011 BOONE IRAHETA DO K 414.00 CORONARY ARTERY DISEASE 07/30/2011 MARBIN IRAHETA DOA K V45.81 Postsurgical Aortocoronary Bypass Status 07/30/2011 LOUANN DIRECTOR LABOR STANDARDS, MIGUEL L 414 .00 CORONARY ARTERY DISEASE 07/30/2011 TOMYL DIRECTOR LABOR STANDARDS, MIGUEL L V45 .81 Postsurgical Aortocoronary Bypass Status 07/30/2011 CARLITA WAITE MD 414.0 0 CORONARY ARTERY DISEASE 07/30/2011 CARLITA WAITE MD V45.8 1 Postsurgical Aortocoronary Bypass Status 07/30/2011 SEAN MORRIS, DAYANA R 414.00 CORONARY ARTERY DISEASE 07/30/2011 SEAN MORRIS, DAYANA R V45.81 Postsurgical Aortocoronary Bypass Status 07/30/2011 ESTEE MORRIS, KATHY R 414.00 CORONARY ARTERY DISEASE 07/30/2011 ESTEE HAIRSTONN, KATHY R V45.81 Postsurgical Aortocoronary Bypass Status 09/30/2011 CHIQUITA ROGERS DO F 300 .00 AN ANXIETY UNSPEC 09/30/2011 CHIQUITA ROGERS DO F 300 .4 MO DYSTHYMIC DISORDER 09/30/2011 WOOD CALDERON APRN S 300.00 AN ANXIETY UNSPEC 09/30/2011 WOOD CALDERON APRN S 300.4 MO DYSTHYMIC DISORDER 09/30/2011 TRUNG PHD, ERNESTO Chatman 300.00 AN ANXIETY UNSPEC 09/30/2011 TRUNG PHD, ERNESTO Chatman 300.4 MO DYSTHYMIC DISORDER 09/30/2011 [...] 300.00 AN ANXIETY UNSPEC 09/30/2011 300.4 MO D YSTHYMIC DISORDER 09/30/2011 300.00 AN ANXIETY UNSPEC 09/30/2011 300.4 MO D YSTHYMIC DISORDER 09/30/2011 300.00 AN ANXIETY UNSPEC 09/30/2011 300.4 MO D YSTHYMIC DISORDER 09/30/2011 300.00 AN ANXIETY UNSPEC 09/30/2011 300.4 MO D YSTHYMIC DISORDER 09/30/2011 BOONE IRAHETA DO K 300.00 AN ANXIETY UNSPEC 09/30/2011 BOONE IRAHETA DO K 300.4 MO DYSTHYMIC DISORDER 10/30/2011 CHIQUITA ROGERS DO 465 .9 ACUTE UPPER RESPIRATORY INFECTIONS OF UNSPECIFIED SITE [...] Respiratory Infections Of Unspecified Site 10/30/2011 465.9 Acut e Upper Respiratory Infections Of Unspecified Site 10/30/2011 465.9 Acut e Upper Respiratory Infections Of Unspecified Site 10/30/2011 465.9 Acut e Upper Respiratory Infections Of Unspecified Site 10/30/2011 465.9 Acut e Upper Respiratory Infections Of Unspecified Site 10/30/2011 BOONE IRAHETA DO K 465.9 Acute Upper Respiratory Infections Of Unspecified Site 10/30/2011 WOOD CALDERON APRN 465.9 Acute Upper Respiratory Infections Of Unspecified Site 10/30/2011 BOONE IRAHETA DO K 465.9 Acute Upper Respiratory Infections Of Unspecified Site 10/30/2011 MIGUEL LEW APRN 465 .9 Acute Upper Respiratory Infections Of Unspecified Site 10/30/2011 RAVINDRA GLASER, CARLITA 465.9 Acute Upper Respiratory Infections Of Unspecified Site 10/30/2011 DAYANA ESTRADA APRN 465.9 Acute Upper Respiratory Infections Of Unspecified Site 10/30/2011 ESTEE DIRECTOR LABOR STANDARDS, KATHY R 465.9 Acute Upper Respiratory Infections Of Unspecified Site 01/15/2012 Ot 780.50 SLE EP DISTURBANCE NOS 02/18/2012 WOOD CALDERON APRN 428.0 CONGESTIVE HEART FAILURE UNSPECIFIED 02/18/2012 TRUNG JADE, ERNESTO Chatman 428.0 Congestive Heart Failure Unspecified 02/18/2012 IRAHETA DO, BOONE K 428.0 Congestive Heart Failure Unspecified 02/18/2012 IRAHETA DO, BOONE K 428.0 Congestive Heart Failure Unspecified 02/18/2012 IARHETA DO, BOONE K 428.0 Congestive Heart Failure Unspecified 02/18/2012 428.0 Catherine estive Heart Failure Unspecified 02/18/2012 428.0 Catherine estive Heart Failure Unspecified 02/18/2012 428.0 Catherine estive Heart Failure Unspecified 02/18/2012 428.0 Catherine estive Heart Failure Unspecified 02/18/2012 IRAHETA DO, BOONE K 428.0 Congestive Heart Failure Unspecified 02/18/2012 WOOD CALDERON APRN 428.0 Congestive Heart Failure Unspecified 02/18/2012 IRAHETA DO, BOONE K 428.0 Congestive Heart Failure Unspecified 02/18/2012 MIGUEL LEW APRN 428 .0 Congestive Heart Failure Unspecified 02/18/2012 RAVINDRA GLASER, CARLITA 428.0 Congestive Heart Failure Unspecified 02/18/2012 DAYANA ESTRADA APRN 428.0 Congestive Heart Failure Unspecified 02/18/2012 KATHY FONTANEZ APRN R 428.0 Congestive Heart Failure Unspecified 04/27/2012 [...] DO, BOONE K 787.91 DIARRHEA 04/27/2012 455.6 HEMO RRHOIDS NOS 04/27/2012 578.1 BLOO D IN STOOL 04/27/2012 787.91 SNEHAL RRHEA 04/27/2012 455.6 HEMO RRHOIDS NOS 04/27/2012 578.1 BLOO D IN STOOL 04/27/2012 787.91 SNEHAL RRHEA 04/27/2012 455.6 HEMO RRHOIDS NOS 04/27/2012 578.1 BLOO D IN STOOL 04/27/2012 787.91 SNEHAL RRHEA 04/27/2012 455.6 HEMO RRHOIDS NOS 04/27/2012 578.1 BLOO D IN STOOL 04/27/2012 787.91 SNEHAL RRHEA 04/27/2012 BOONE IRAHETA DO 455.6 HEMORRHOIDS NOS 04/27/2012 BOONE IRAHETA DO 578.1 BLOOD IN STOOL 04/27/2012 BOONE IRAHETA DO 787.91 DIARRHEA 05/24/2012 BOONE IRAHETA DO 625.9 PELVIC PAIN 05/24/2012 BOONE IRAHETA DO V65.49 OTHER SPECIFIED COUNSELING 05/24/2012 BOONE IRAHETA DO V76.10 BREAST CANCER SCREENING 05/24/2012 625.9 PELV IC PAIN 05/24/2012 V65.49 OTH ER SPECIFIED COUNSELING 05/24/2012 V76.10 EL AST CANCER SCREENING 05/24/2012 625.9 PELV IC PAIN 05/24/2012 V65.49 OTH ER SPECIFIED COUNSELING 05/24/2012 V76.10 EL AST CANCER SCREENING 05/24/2012 625.9 PELV IC PAIN 05/24/2012 V65.49 OTH ER SPECIFIED COUNSELING 05/24/2012 V76.10 EL AST CANCER SCREENING 05/24/2012 625.9 PELV IC PAIN 05/24/2012 V65.49 OTH ER SPECIFIED COUNSELING 05/24/2012 V76.10 EL AST CANCER SCREENING 05/24/2012 BOONE IRAHETA DO 625.9 PELVIC PAIN 05/24/2012 BOONE IRAHETA DO V65.49 OTHER SPECIFIED COUNSELING 05/24/2012 BOONE IRAHETA DO V76.10 BREAST CANCER SCREENING 08/16/2012 796.2 ELEV ATED BLOOD PRESSURE READING WITHOUT DIAGNOSIS OF HYPERTENSION 08/16/2012 796.2 ELEV ATED BLOOD PRESSURE READING WITHOUT DIAGNOSIS OF HYPERTENSION 08/16/2012 796.2 ELEV ATED BLOOD PRESSURE READING WITHOUT DIAGNOSIS OF HYPERTENSION 08/16/2012 BOONE IRAHETA DO 796.2 ELEVATED BLOOD PRESSURE READING WITHOUT DIAGNOSIS OF HYPERTENSION 08/17/2012 CARLITA WAITE MD Ot 250.00 DIAB [place] WO COMPL, TYPE II OR UNSPEC TY 08/17/2012 CARLITA WAITE MD Ot 272 .4 HYPERLIPIDEMIA NEC/NOS 08/17/2012 CARLITA WAITE MD Ot 275 .2 DIS MAGNESIUM METABOLISM 08/17/2012 CARLITA WAITE MD Ot 311 DEPRESSIVE DISORDER NEC 08/17/2012 CARLITA WAITE MD Ot 401 .9 HYPERTENSION NOS 08/17/2012 CARLITA WAITE MD Ot 414.00 CORON ATHEROSCLER NOS TYPE VESSEL, NATIV 08/17/2012 CARLITA WAITE MD Ot 428 .0 CONGESTIVE HEART FAILURE NOS 08/17/2012 CARLITA WAITE MD Ot 593 .9 RENAL URETERAL DIS NOS 08/17/2012 CARLITA WAITE MD Ot 780 .2 SYNCOPE AND COLLAPSE 08/17/2012 CARLITA WAITE MD Ot 786.50 CHEST PAIN NOS 08/17/2012 CARLITA WAITE MD Ot V45.01 CARDIAC PACEMAKER IN SITU 08/17/2012 CARLITA WAITE MD Ot V45.02 AUTO IMPLANTABLE CARDIAC DEFIBRILLATOR I 08/17/2012 CARLITA WAITE MD Ot V45.81 AORTOCORONARY BYPASS 09/24/2012 MAKENNA ODEN MD Ot 250.00 DIAB MI[place] WO COMPL, TYPE II OR UNSPEC TY 09/24/2012 MAKENNA ODEN MD Ot 272 .0 PURE HYPERCHOLESTEROLEM 09/24/2012 MAKENNA ODEN MD Ot 311 DEPRESSIVE DISORDER NEC 09/24/2012 MAKENNA ODEN MD Ot 401 .9 HYPERTENSION NOS 09/24/2012 MAKENNA ODEN MD Ot 414.00 CORON ATHEROSCLER NOS TYPE VESSEL, NATIV 09/24/2012 MAKENNA ODEN MD Ot 458 .1 CHRONIC HYPOTENSION 09/24/2012 MAKENNA ODEN MD Ot 716.90 ARTHROPATHY NOS-UNSPEC 09/24/2012 MAKENNA ODEN MD Ot 724 .2 LUMBAGO 09/24/2012 MAKENNA ODEN MD Ot 724 .5 BACKACHE NOS 09/24/2012 MAKENNA ODEN MD Ot V15.88 HISTORY OF FALL 09/24/2012 MAKENNA ODEN MD Ot V45.01 CARDIAC PACEMAKER IN SITU 10/13/2012 425.4 CARD IOMYOPHATHY 10/13/2012 BOONE IRAHETA DO K 425.4 CARDIOMYOPHATHY 06/25/2013 BOONE IRAHETA DO K 461.9 SINUSITIS ACUTE 06/25/2013 MIGUEL LEW APRN 461 .9 SINUSITIS ACUTE 06/25/2013 CARLITA WAITE MD 461.9 SINUSITIS ACUTE 06/25/2013 DAYANA ESTRADA APRN R 461.9 SINUSITIS ACUTE 06/25/2013 KATHY FONTANEZ APRN R 461.9 SINUSITIS ACUTE 08/25/2013 MIGUEL LEW APRN L 724 .3 SCIATICA 08/25/2013 CARLITA WAITE MD 724.3 SCIATICA 08/25/2013 DAYANA ESTRADA APRN R 724.3 SCIATICA 08/25/2013 KATHY FONTANEZ APRN R 724.3 SCIATICA 09/06/2013 CARLITA WAITE MD Ot 250.02 DIAB MI[place] WO COMPL, TYPE II OR UNSPEC TY 09/06/2013 CARLITA WAITE MD Ot 272 .4 HYPERLIPIDEMIA NEC/NOS 09/06/2013 CARLITA WAITE MD Ot 275 .2 DIS MAGNESIUM METABOLISM 09/06/2013 CARLITA WAITE MD Ot 276 .1 HYPOSMOLALITY 09/06/2013 CARLITA WAITE MD Ot 276 .7 HYPERPOTASSEMIA 09/06/2013 CARLITA WAITE MD Ot 288.60 LEUKOCYTOSIS, UNSPECIFIED 09/06/2013 CARLITA WAITE MD Ot 295.90 SCHIZOPHRENIA NOS-UNSPEC 09/06/2013 CARLITA WAITE MD Ot 296.80 BIPOLAR DISORDER, UNSPECIFIED 09/06/2013 CARLITA WAITE MD Ot 403.90 HYPTNSV CHR KID DIS, UNSPEC, W CHR KD ST 09/06/2013 CARLITA WAITE MD Ot 414.01 CORONARY ATHEROSCLEROSIS OF [place] CORON 09/06/2013 CARLITA WAITE MD Ot 414 .8 CHR ISCHEMIC HRT DIS NEC 09/06/2013 CARLITA WAITE MD Ot 428 .0 CONGESTIVE HEART FAILURE NOS 09/06/2013 CARLITA WAITE MD Ot 458 .0 ORTHOSTATIC HYPOTENSION 09/06/2013 CARLITA WAITE MD Ot 585 .9 CHRONIC KIDNEY DISEASE, UNSPECIFIED 09/06/2013 CARLITA WAITE MD Ot 593 .9 RENAL URETERAL DIS NOS 09/06/2013 CARLITA WAITE MD Ot V12.54 PERSONAL HX OF TIA, CEREBRAL INFARCTION 09/06/2013 CARLITA WAITE MD Ot V15.81 HX OF PAST NONCOMPLIANCE 09/06/2013 CARLITA WAITE MD Ot V58.67 LONG-TERM (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 03/16/2014 KATHY FONTANEZ APRN 4 62 ACUTE PHARYNGITIS 03/16/2014 KATHY FONTANEZ APRN 786.2 COUGH 05/14/2014 Ot 250.00 SNEHAL B MIKA WO COMPL, TYPE II OR UNSPEC TY 05/14/[address] PAIN NOS 05/14/2014 Ot V58.67 YUNIER G-TERM (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 05/14/2014 Ot V58.69 [...] 06/20/2015 Ot 427.9 06/20/2015 SANDRO GLASER FACC, SHAQUILLE FACP CCDS Ot 250.00 06/20/2015 SANDRO GLASER FACC, SHAQUILLE FACP CCDS Ot 272.4 06/20/2015 SANDRO GLASER FACC, ALI FACP CCDS Ot 414.00 06/20/2015 SANDRO GLASER FACC, ALI FACP CCDS Ot 447.9 06/20/2015 SANDRO GLASER FACC, SHAQUILLE TURCIOS CCDS Ot 585.9 06/20/2015 SORAYA MARTINS Ot E11.65 TYPE 2 DIABETES MELLITUS WITH HYPERGLYCE 06/20/2015 SORAYA MARTINS Ot Z79.4 PRISON (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 06/20/2015 SORAYA MARTINS Ot Z95.0 PRESENCE OF CARDIAC PACEMAKER 06/20/2015 SORAYA MARTINS Ot Z95.1 PRESENCE OF AORTOCORONARY BYPASS GRAFT 06/20/2015 BAIMA, BARRY L GENERAL WORKER Ot E78.5 06/20/2015 BAIMA, BARRY L GENERAL WORKER Ot I 10 06/20/2015 BAIMA, BARRY L GENERAL WORKER Ot I25.10 06/20/2015 BAIMA, BARRY L GENERAL WORKER Ot Z95.0 06/21/2015 BAIMA, BARRY L GENERAL WORKER Ot E78.5 06/21/2015 BAIMA, BARRY L GENERAL WORKER Ot I 10 06/21/2015 BAIMA, BARRY L GENERAL WORKER Ot I25.10 06/21/2015 BAIMA, BARRY L GENERAL WORKER Ot Z95.0 06/21/2015 SORAYA MARTINS Ot E11.65 06/21/2015 SORAYA MARTINS Ot Z79.4 06/21/2015 SORAYA MARTINS Ot Z95.0 06/21/2015 SORAYA MARTINS Ot Z95.1 06/22/2015 BAIMA, BARRY L GENER[employer] WORKER Ot E78.5 HYPERLIPIDEMIA, UNSPECIFIED 06/22/2015 BAIMA, BARRY L GENERAL WORKER Ot I 10 ESSENTIAL (PRIMARY) HYPERTENSION 06/22/2015 BAIMA, BARRY L GENERAL WORKER Ot I25.10 ATHSCL HEART DISEASE OF [place] CORONARY 06/22/2015 BAIMA, BARRY L GENERAL WORKER Ot Z95.0 PRESENCE OF CARDIAC PACEMAKER 06/22/2015 BAIMA, BARRY L GENERAL WORKER Ot E78.5 HYPERLIPIDEMIA, UNSPECIFIED 06/22/2015 BAIMA, BARRY L GENERAL WORKER Ot I 10 ESSENTIAL (PRIMARY) HYPERTENSION 06/22/2015 BAIMA, BARRY L GENERAL WORKER Ot I25.10 ATHSCL HEART DISEASE OF [place] CORONARY 06/22/2015 BAIMA, BARRY L GENERAL WORKER Ot Z95.0 PRESENCE OF CARDIAC PACEMAKER 11/26/2015 ANDREW BINGHAM DO Ot R11.0 NAUSEA 11/26/2015 ANDREW BINGHAM DO Ot 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 11/28/2015 ANDREW BINGHAM DO Ot R11.0 NAUSEA 11/28/2015 ANDREW BINGHAM DO Ot 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 09/25/2016 Ot 414.01 COR ONARY ATHEROSCLEROSIS OF [place] CORON 09/25/2016 Ot 427.9 CARD IAC DYSRHYTHMIA NOS 09/25/2016 SANDRO GLASER FACC, ALI FACP CCDS Ot 250.00 DIAB [place] WO COMPL, TYPE II OR UNSPEC TY 09/25/2016 SANDRO STANLEYC, ALI FACP CCDS Ot 272.4 HYPERLIPIDEMIA NEC/NOS 09/25/2016 SANDRO STANLEYC, ALI FACP CCDS Ot 414.00 CORON ATHEROSCLER NOS TYPE VESSEL, NATIV 09/25/2016 SANDRO GLASER FACC, ALI FACP CCDS Ot 447.9 ARTERIAL DISEASE NOS 09/25/2016 SANDRO STANLEYC, ALI FACP CCDS Ot 585.9 CHRONIC KIDNEY DISEASE, UNSPECIFIED 09/25/2016 BARRY REYES GENERAL WORKER Ot E78.5 HYPERLIPIDEMIA, UNSPECIFIED 09/25/2016 BARRY REYES GENERAL WORKER Ot I 10 ESSENTIAL (PRIMARY) HYPERTENSION 09/25/2016 BARRY REYES L GENERAL WORKER Ot I25.10 ATHSCL HEART DISEASE OF [place] CORONARY 09/25/2016 BARRY REYES GENERAL WORKER Ot Z95.0 PRESENCE OF CARDIAC PACEMAKER 09/25/2016 Ot 414.01 COR ONARY ATHEROSCLEROSIS OF [place] CORON 09/25/2016 Ot 427.9 CARD IAC DYSRHYTHMIA NOS 09/26/2016 Ot 414.01 COR ONARY ATHEROSCLEROSIS OF [place] CORON 09/26/2016 Ot 427.9 CARD IAC DYSRHYTHMIA NOS 09/26/2016 SANDRO GLASER FACC, ALI FACP CCDS Ot 250.00 DIAB MIKA WO COMPL, TYPE II OR UNSPEC TY 09/26/2016 SANDRO GLASER FACC, ALI FACP CCDS Ot 272.4 HYPERLIPIDEMIA NEC/NOS 09/26/2016 SANDRO GLASER FACC, ALI FACP CCDS Ot 414.00 CORON ATHEROSCLER NOS TYPE VESSEL, NATIV 09/26/2016 SANDRO GLASER [facility], SHAQUILLE TURCIOS CCDS Ot 447.9 ARTERIAL DISEASE NOS 09/26/2016 [facility], [place]UR[place] CCDS Ot 585.9 CHRONIC KIDNEY DISEASE, UNSPECIFIED 09/26/2016 BARRY REYES GENERAL WORKER Ot E78.5 HYPERLIPIDEMIA, UNSPECIFIED 09/26/2016 BARRY REYES L GENERAL WORKER Ot I 10 ESSENTIAL (PRIMARY) HYPERTENSION 09/26/2016 BARRY REYES GENERAL WORKER Ot I25.10 ATHSCL HEART DISEASE OF [place] CORONARY 09/26/2016 BARRY REYES GENERAL WORKER Ot Z95.0 PRESENCE OF CARDIAC PACEMAKER 09/26/2016 CINDY THOMPSON MD Ot E11.9 TYPE 2 DIABETES MELLITUS WITHOUT COMPLIC 09/26/2016 CINDY THOMPSON MD Ot F20.9 SCHIZOPHRENIA, UNSPECIFIED 09/26/2016 CINDY THOMPSON MD Ot Z79.4 MASTER STEAM YACHT (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 09/26/2016 CINDY THOMPSON MD Ot Z79.8 2 PRISON (CURRENT) USE OF ASPIRIN 09/26/2016 CINDY THOMPSON MD R Ot Z79.8 99 OTHER MASTER STEAM YACHT (CURRENT) DRUG THERAPY 09/26/2016 CINDY THOMPSON MD Ot Z95.0 PRESENCE OF CARDIAC PACEMAKER 09/26/2016 CINDY THOMPSON MD Ot Z95.1 PRESENCE OF AORTOCORONARY BYPASS GRAFT 09/26/2016 CINDY THOMPSON MD Ot E11.9 TYPE 2 DIABETES MELLITUS WITHOUT COMPLIC 09/26/2016 CINDY THOMPSON MD Ot F20.9 SCHIZOPHRENIA, UNSPECIFIED 09/26/2016 CINDY THOMPSON MD Ot Z79.4 MASTER STEAM YACHT (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 09/26/2016 CINDY THOMPSON MD Ot Z79.8 2 MASTER STEAM YACHT (CURRENT) USE OF ASPIRIN 09/26/2016 CINDY THOMPSON MD R Ot Z79.8 99 OTHER MASTER STEAM YACHT (CURRENT) DRUG THERAPY 09/26/2016 CINDY THOMPSON MD R Ot Z95.0 PRESENCE OF CARDIAC PACEMAKER 09/26/2016 CINDY THOMPSON MD R Ot Z95.1 PRESENCE OF AORTOCORONARY BYPASS GRAFT 10/02/2016 Ot 414.01 COR ONARY ATHEROSCLEROSIS OF [place] CORON 10/02/2016 Ot 427.9 CARD IAC DYSRHYTHMIA NOS 10/02/2016 SANDRO GLASER [facility], ALI FACP CCDS Ot 250.00 DIAB MIKA WO COMPL, TYPE II OR UNSPEC TY 10/02/2016 SANDRO GLASER FAC, ALI FACP CCDS Ot 272.4 HYPERLIPIDEMIA NEC/NOS 10/02/2016 SANDRO GLASER FAC, ALI FACP CCDS Ot 414.00 CORON ATHEROSCLER NOS TYPE VESSEL, NATIV 10/02/2016 SANDRO GLASER FAC, ALI FACP CCDS Ot 447.9 ARTERIAL DISEASE NOS 10/02/2016 SANDRO GLASER [facility], ALI FACP CCDS Ot 585.9 CHRONIC KIDNEY DISEASE, UNSPECIFIED 10/02/2016 BARRY REYES GENERAL WORKER Ot E78.5 HYPERLIPIDEMIA, UNSPECIFIED 10/02/2016 BARRY REYES GENERAL WORKER Ot I 10 ESSENTIAL (PRIMARY) HYPERTENSION 10/02/2016 BARRY REYES GENERAL WORKER Ot I25.10 ATHSCL HEART DISEASE OF [place] CORONARY 10/02/2016 BARRY REYESP Ot Z95.0 PRESENCE OF CARDIAC PACEMAKER 10/21/2016 CINDY THOMPSON MD Ot E05.9 0 THYROTOXICOSIS, UNSP WITHOUT THYROTOXIC 10/21/2016 CINDY THOMPSON MD Ot E11.9 TYPE 2 DIABETES MELLITUS WITHOUT COMPLIC 10/21/2016 CINDY THOMPSON MD Ot E78.5 HYPERLIPIDEMIA, UNSPECIFIED 10/21/2016 CINDY THOMPSON MD, Ot E87.1 HYPO-OSMOLALITY AND HYPONATREMIA 10/21/2016 CINDY THOMPSON MD, Ot F23 BRIEF PSYCHOTIC DISORDER 10/21/2016 CINDY THOMPSON MD Ot I10 ESSENTIAL (PRIMARY) HYPERTENSION 10/21/2016 CINDY THOMPSON MD, Ot I25.1 0 ATHSCL HEART DISEASE OF [place] CORONARY 10/21/2016 CINDY THOMPSON MD Ot 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 10/21/2016 CINDY THOMPSON MD Ot N39.0 URINARY TRACT INFECTION, SITE NOT SPECIF 10/21/2016 CINDY THOMPSON MD, Ot R94.3 1 ABNORMAL ELECTROCARDIOGRAM [ECG] [EKG] 10/21/2016 CINDY THOMPSON MD, Ot Z79.4 PRISON (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 10/21/2016 GAULT MD, CINDY R Ot Z95.1 PRESENCE OF AORTOCORONARY BYPASS GRAFT 10/21/2016 CINDY THOMPSON MD Ot Z95.8 10 PRESENCE OF AUTOMATIC (IMPLANTABLE) CARD 11/24/2016 DUSTIN REYESHER L GENERAL WORKER Ot I25.10 ATHSCL HEART DISEASE OF [place] CORONARY 11/25/2016 SANDRO GLASER FAC, ALI FACP CCDS Ot 250.00 DIAB MIKA WO COMPL, TYPE II OR UNSPEC TY 11/25/2016 SANDRO GLASER FAC, ALI FACP CCDS Ot 272.4 HYPERLIPIDEMIA NEC/NOS 11/25/2016 SANDRO GLASER FAC, ALI FACP CCDS Ot 414.00 CORON ATHEROSCLER NOS TYPE VESSEL, NATIV 11/25/2016 SANDRO GLASER FAC, ALI FACP CCDS Ot 447.9 ARTERIAL DISEASE NOS 11/25/2016 SANDRO STANLEY, ALI FACP CCDS Ot 585.9 CHRONIC KIDNEY DISEASE, UNSPECIFIED 11/25/2016 ERIC BARRY L GENERAL WORKER Ot E78.5 HYPERLIPIDEMIA, UNSPECIFIED 11/25/2016 EVMA BARRY L GENERAL WORKER Ot I 10 ESSENTIAL (PRIMARY) HYPERTENSION 11/25/2016 ERIC BARRY L GENERAL WORKER Ot I25.10 ATHSCL HEART DISEASE OF [place] CORONARY 11/25/2016 EVMA, BARRY L GENERAL WORKER Ot Z95.0 PRESENCE OF CARDIAC PACEMAKER 11/25/2016 EVMA, BARRY L GENERAL WORKER Ot I25.10 ATHSCL HEART DISEASE OF [place] CORONARY 01/06/2017 BAIMA, BARRY L GENERAL WORKER Ot E78.4 OTHER HYPERLIPIDEMIA 01/06/2017 BAIMA, BARRY L GENERAL WORKER Ot I25.10 ATHSCL HEART DISEASE OF [place] CORONARY 01/06/2017 BAIMA, BARRY L GENERAL WORKER Ot I65.23 OCCLUSION AND STENOSIS OF [place]ILATERAL [place] 01/06/2017 BAIMA, BARRY L GENERAL WORKER Ot R26.89 OTHER ABNORMALITIES OF GAIT AND MOBILITY 01/06/2017 BAIMA, BARRY L GENERAL WORKER Ot Z95.0 PRESENCE OF CARDIAC PACEMAKER 02/04/2017 BAIMA, BARRY L GENERAL WORKER Ot I25.10 ATHSCL HEART DISEASE OF [place] CORONARY 02/04/2017 BAIMA, BARRY L GENERAL WORKER Ot I65.23 OCCLUSION AND STENOSIS OF [place] 02/04/2017 BAIMA, BARRY L GENERAL WORKER Ot R06.09 OTHER FORMS OF DYSPNEA 02/12/2017 EVBARRY WHITTINGTON GENERAL WORKER Ot I25.10 ATHSCL HEART DISEASE OF [place] CORONARY 02/12/2017 BARRY REYES GENERAL WORKER Ot I65.23 OCCLUSION AND STENOSIS OF [place] 02/12/2017 BARRY REYES GENERAL WORKER Ot R06.09 OTHER FORMS OF DYSPNEA 02/16/2017 STEVEN VILLELA MD Ot E11. 9 TYPE 2 DIABETES MELLITUS WITHOUT COMPLIC 02/16/2017 STEVEN VILLELA MD Ot F20. 9 SCHIZOPHRENIA, UNSPECIFIED 02/16/2017 STEVEN VILLELA MD Ot F32. 9 MAJOR DEPRESSIVE DISORDER, SINGLE EPISOD 02/16/2017 STEVEN VILLELA MD Ot F41. 9 ANXIETY DISORDER, UNSPECIFIED 02/16/2017 STEVEN VILLELA MD Ot I25. 10 ATHSCL HEART DISEASE OF [place] CORONARY 02/16/2017 STEVEN VILLELA MD Ot K02. 9 DENTAL CARIES, UNSPECIFIED 02/16/2017 STEVEN VILLELA MD Ot K08. 89 OTHER SPECIFIED DISORDERS OF TEETH AND S 02/16/2017 STEVEN VILLELA MD Ot Z79. 4 MASTER STEAM YACHT (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 02/16/2017 STEVEN VILLELA MD Ot Z79. 82 MASTER STEAM YACHT (CURRENT) USE OF ASPIRIN 02/16/2017 STEVEN VILLELA MD Ot Z86. 73 PRSNL HX OF TIA (TIA), AND CEREB INFRC W 02/16/2017 STEVEN VILLELA MD Ot Z90.710 ACQUIRED ABSENCE OF BOTH CERVIX AND UTER 02/16/2017 STEVEN VILLELA MD Ot Z95. 0 PRESENCE OF CARDIAC PACEMAKER 02/16/2017 STEVEN VILLELA MD Ot Z95. 1 PRESENCE OF AORTOCORONARY BYPASS GRAFT 02/25/2017 STEVEN VILLELA MD Ot E11. 9 TYPE 2 DIABETES MELLITUS WITHOUT COMPLIC 02/25/2017 STEVEN VILLELA MD Ot F20. 9 SCHIZOPHRENIA, UNSPECIFIED 02/25/2017 STEVEN VILLELA MD Ot F32. 9 MAJOR DEPRESSIVE DISORDER, SINGLE EPISOD 02/25/2017 STEVEN VILLELA MD Ot F41. 9 ANXIETY DISORDER, UNSPECIFIED 02/25/2017 STEVEN VILLELA MD Ot I25. 10 ATHSCL HEART DISEASE OF [place] CORONARY 02/25/2017 STEVEN VILLELA MD Ot K02. 9 DENTAL CARIES, UNSPECIFIED 02/25/2017 STEVEN VILLELA MD Ot K08. 89 OTHER SPECIFIED DISORDERS OF TEETH AND S 02/25/2017 STEVEN VILLELA MD Ot Z79. 4 MASTER STEAM YACHT (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 02/25/2017 STEVEN VILLELA MD Ot Z79. 82 MASTER STEAM YACHT (CURRENT) USE OF ASPIRIN 02/25/2017 STEVEN VILLELA MD Ot Z86. 73 PRSNL HX OF TIA (TIA), AND CEREB INFRC W 02/25/2017 STEVEN VILLELA MD Ot Z90.710 ACQUIRED ABSENCE OF BOTH CERVIX AND UTER 02/25/2017 STEVEN VILLELA MD Ot Z95. 0 PRESENCE OF CARDIAC PACEMAKER 02/25/2017 STEVEN VILLELA MD Ot Z95. 1 PRESENCE OF AORTOCORONARY BYPASS GRAFT 02/25/2017 BARRY REYES GENERAL WORKER Ot 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 02/25/2017 BARRY REYES L GENERAL WORKER Ot E66.9 OBESITY, UNSPECIFIED 02/25/2017 BARRY REYES L GENERAL WORKER Ot F20.9 SCHIZOPHRENIA, UNSPECIFIED 02/25/2017 DUSTIN REYESHER L GENERAL WORKER Ot F32.9 MAJOR DEPRESSIVE DISORDER, SINGLE EPISOD 02/25/2017 BARRY REYES L GENERAL WORKER Ot I12.9 HYPERTENSIVE CHRONIC KIDNEY DISEASE W ST 02/25/2017 DUSTIN REYESHER L GENERAL WORKER Ot I25.10 ATHSCL HEART DISEASE OF [place] CORONARY 02/25/2017 BARRY REYES L GENERAL WORKER Ot I25.5 ISCHEMIC CARDIOMYOPATHY 02/25/2017 DUSTIN REYESHER L GENERAL WORKER Ot I65.23 OCCLUSION AND STENOSIS OF [place]ATER[place] 02/25/2017 DUSTIN REYESHER L GENERAL WORKER Ot 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 02/25/2017 BARRY REYES L GENERAL WORKER Ot N18.2 CHRONIC KIDNEY DISEASE, STAGE 2 (MILD) 02/25/2017 BARRY REYES L GENERAL WORKER Ot Z68.30 BODY MASS INDEX (BMI) 30.0-30.9, ADULT 02/25/2017 BARRY REYES L GENERAL WORKER Ot Z79.4 MASTER STEAM YACHT (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 02/25/2017 ERIC BARRY York GENERAL WORKER Ot Z79.899 OTHER MASTER STEAM YACHT (CURRENT) DRUG THERAPY 02/25/2017 ERIC BARRY L GENERAL WORKER Ot Z95.1 PRESENCE OF AORTOCORONARY BYPASS GRAFT 02/25/2017 ERIC BARRY L GENERAL WORKER Ot Z95.810 PRESENCE OF AUTOMATIC (IMPLANTABLE) CARD 02/26/2017 ERIC BARRY L GENERAL WORKER Ot 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 02/26/2017 ERIC BARRY L GENERAL WORKER Ot E66.9 OBESITY, UNSPECIFIED 02/26/2017 ERIC BARRY L GENERAL WORKER Ot F20.9 SCHIZOPHRENIA, UNSPECIFIED 02/26/2017 ERIC BARRY L GENERAL WORKER Ot F32.9 MAJOR DEPRESSIVE DISORDER, SINGLE EPISOD 02/26/2017 ERIC BARRY L GENERAL WORKER Ot I12.9 HYPERTENSIVE CHRONIC KIDNEY DISEASE W ST 02/26/2017 ERIC BARRY L GENERAL WORKER Ot I25.10 ATHSCL HEART DISEASE OF [place] CORONARY 02/26/2017 BARRY REYES L GENERAL WORKER Ot I25.5 ISCHEMIC CARDIOMYOPATHY 02/26/2017 ERIC BARRY L GENERAL WORKER Ot I65.23 OCCLUSION AND STENOSIS OF [place]ATER[place] 02/26/2017 DUSTIN REYESHER L GENERAL WORKER Ot 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 02/26/2017 ERIC BARRY L GENERAL WORKER Ot N18.2 CHRONIC KIDNEY DISEASE, STAGE 2 (MILD) 02/26/2017 ERIC BARRY L GENERAL WORKER Ot Z68.30 BODY MASS INDEX (BMI) 30.0-30.9, ADULT 02/26/2017 BARRY REYES L GENERAL WORKER Ot Z79.4 PRISON (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 02/26/2017 ERIC BARRY L GENERAL WORKER Ot Z79.899 OTHER MASTER STEAM YACHT (CURRENT) DRUG THERAPY 02/26/2017 ERIC BARRY L GENERAL WORKER Ot Z95.1 PRESENCE OF AORTOCORONARY BYPASS GRAFT 02/26/2017 ERIC BARRY L GENERAL WORKER Ot Z95.810 PRESENCE OF AUTOMATIC (IMPLANTABLE) CARD 03/02/2017 ERIC BARRY L GENERAL WORKER Ot 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 03/02/2017 BARRY REYES L GENERAL WORKER Ot E66.9 OBESITY, UNSPECIFIED 03/02/2017 EVBARRY WHITTINGTON GENERAL WORKER Ot F20.9 SCHIZOPHRENIA, UNSPECIFIED 03/02/2017 EVBARRY WHITTINGTON GENERAL WORKER Ot F32.9 MAJOR DEPRESSIVE DISORDER, SINGLE EPISOD 03/02/2017 EVBARRY WHITTINGTON GENERAL WORKER Ot I12.9 HYPERTENSIVE CHRONIC KIDNEY DISEASE W ST 03/02/2017 EVBARRY WHITTINGTON GENERAL WORKER Ot I25.10 ATHSCL HEART DISEASE OF [place] CORONARY 03/02/2017 EVBARRY WHITTINGTON GENERAL WORKER Ot I25.5 ISCHEMIC CARDIOMYOPATHY 03/02/2017 EVBARRY WHITTINGTON GENERAL WORKER Ot I65.23 OCCLUSION AND STENOSIS OF BILATERAL [place] 03/02/2017 EVBARRY WHITTINGTON GENERAL WORKER Ot 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 03/02/2017 EVBARRY WHITTINGTON GENERAL WORKER Ot N18.2 CHRONIC KIDNEY DISEASE, STAGE 2 (MILD) 03/02/2017 EVBARRY WHITTINGTON GENERAL WORKER Ot Z68.30 BODY MASS INDEX (BMI) 30.0-30.9, ADULT 03/02/2017 EVBARRY WHITTINGTON GENERAL WORKER Ot Z79.4 PRISON (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 03/02/2017 EVBARRY WHITTINGTON GENERAL WORKER Ot Z79.899 OTHER PRISON (CURRENT) DRUG THERAPY 03/02/2017 EVBARRY WHITTINGTON GENERAL WORKER Ot Z95.1 PRESENCE OF AORTOCORONARY BYPASS GRAFT 03/02/2017 EVBARRY WHITTINGTON GENERAL WORKER Ot Z95.810 PRESENCE OF AUTOMATIC (IMPLANTABLE) CARD 03/10/2017 EVBARRY WHITTINGTON GENERAL WORKER Ot E78.4 OTHER HYPERLIPIDEMIA 03/10/2017 EVNELSY BARRY York GENERAL WORKER Ot I25.10 ATHSCL HEART DISEASE OF [place] CORONARY 03/10/2017 EVNELSY BARRY [place] GENERAL WORKER Ot I25.5 ISCHEMIC CARDIOMYOPATHY 03/10/2017 VEBARRY WHITTINGTON GENERAL WORKER Ot N18.3 CHRONIC KIDNEY DISEASE, STAGE 3 (MODERAT 03/25/2017 SANDRO GLASER FACC, SHAQUILLE TURCIOS CCDS Ot E05.90 THYROTOXICOSIS, UNSP WITHOUT THYROTOXIC 03/25/2017 SANDRO GLASER FACC, SHAQUILLE TURCIOS CCDS Ot 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 03/25/2017 SANDRO GLASER FACC, ALI FACP CCDS Ot E78.5 HYPERLIPIDEMIA, UNSPECIFIED 03/25/2017 SANDRO GLASER FACC, ALI FACP CCDS Ot F20.9 SCHIZOPHRENIA, UNSPECIFIED 03/25/2017 SANDRO GLASER FACC, SHAQUILLE FACP CCDS Ot F32.9 MAJOR DEPRESSIVE DISORDER, SINGLE EPISOD 03/25/2017 SANDRO GLASER FACC, ALI FACP CCDS Ot I12.9 HYPERTENSIVE CHRONIC KIDNEY DISEASE W ST 03/25/2017 SANDRO GLASER FACC, SHAQUILLE FACP CCDS Ot I25.10 ATHSCL HEART DISEASE OF [place] CORONARY 03/25/2017 SANDRO GLASER FACC, SHAQUILLE FACP CCDS Ot I25.5 ISCHEMIC CARDIOMYOPATHY 03/25/2017 SANDRO GLASER FACC, SHAQUILLE FACP CCDS Ot 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 03/25/2017 SHAQUILLE VARMA MD, FACC FACP CCDS Ot M79.604 PAIN IN RIGHT LEG 03/25/2017 SANDRO GLASER FACC, [place] FACP CCDS Ot M79.605 PAIN IN LEFT LEG 03/25/2017 SANDRO LGASER FACC, [place]QU[place]LE FACP CCDS Ot N18.3 CHRONIC KIDNEY DISEASE, STAGE 3 (MODERAT 03/25/2017 SANDRO GLASER FACC, SHAQUILLE FACP CCDS Ot Z79.02 MASTER STEAM YACHT (CURRENT) USE OF 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 03/25/2017 SANDRO GLASER FACC, SHAQUILLE FACP CCDS Ot Z79.4 PRISON (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 03/25/2017 SHAQUILLE VARMA MD, FACC FACP CCDS Ot Z79.899 OTHER PRISON (CURRENT) DRUG THERAPY 03/25/2017 SANDRO GLASER FACC, SHAQUILLE FACP CCDS Ot Z91.19 PATIENT'S NONCOMPLIANCE W [facility] MEDICAL TR 03/25/2017 SHAQUILLE VARMA MD, FACC FACP CCDS Ot Z95.1 PRESENCE OF AORTOCORONARY BYPASS GRAFT 03/25/2017 SHAQUILLE VARMA MD, FACC FACP CCDS Ot Z95.5 PRESENCE OF CORONARY ANGIOPLASTY IMPLANT 03/25/2017 SANDRO GLASER FACC, SHAQUILLE FACP CCDS Ot Z95.810 PRESENCE OF AUTOMATIC (IMPLANTABLE) CARD 03/27/2017 SHAQUILLE VARMA MD, FACC FACP CCDS Ot E05.90 THYROTOXICOSIS, UNSP WITHOUT THYROTOXIC 03/27/2017 SANDRO GLASER FACC, SHAQUILLE FACP CCDS Ot 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 03/27/2017 SANDRO GLASER FACC, SHAQUILLE FACP CCDS Ot E78.5 HYPERLIPIDEMIA, UNSPECIFIED 03/27/2017 SANDRO GLASER FACC, ALI FACP CCDS Ot F20.9 SCHIZOPHRENIA, UNSPECIFIED 03/27/2017 SANDRO GLASER FACC, ALI FACP CCDS Ot F32.9 MAJOR DEPRESSIVE DISORDER, SINGLE EPISOD 03/27/2017 SANDRO GLASER FACC, SHAQUILLE FACP CCDS Ot I12.9 HYPERTENSIVE CHRONIC KIDNEY DISEASE W ST 03/27/2017 SANDRO GLASER FACC, ALI FACP CCDS Ot I25.10 ATHSCL HEART DISEASE OF [place] CORONARY 03/27/2017 SANDRO GLASER FACC, SHAQUILLE FACP CCDS Ot I25.5 ISCHEMIC CARDIOMYOPATHY 03/27/2017 SANDOR GLASER FACC, SHAQUILLE FACP CCDS Ot I69.328 OT SPEECH/LANG DEFICITS FOLLOWING CEREB 03/27/2017 SANDRO GLASER FACC, SHAQUILLE FACP CCDS Ot M79.604 PAIN IN RIGHT LEG 03/27/2017 SANDRO GLASER FACC, SHAQUILLE FACP CCDS Ot M79.605 PAIN IN LEFT LEG 03/27/2017 SANDRO GLASER FACC, SHAQUILLE FACP CCDS Ot N18.3 CHRONIC KIDNEY DISEASE, STAGE 3 (MODERAT 03/27/2017 SHAQUILLE VARMA MD, FACC FACP CCDS Ot Z79.02 MASTER STEAM YACHT (CURRENT) USE OF 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 03/27/2017 SANDRO GLASER FACC, SHAQUILLE FACP CCDS Ot Z79.4 MASTER STEAM YACHT (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 03/27/2017 SHAQUILLE VARMA MD, FACC FACP CCDS Ot Z79.899 OTHER MASTER STEAM YACHT (CURRENT) DRUG THERAPY 03/27/2017 SANDRO GLASER FACC, SHAQUILLE FACP CCDS Ot Z91.19 PATIENT'S NONCOMPLIANCE W OT MEDICAL TR 03/27/2017 SHAQUILLE VARMA MD, FACC FACP CCDS Ot Z95.1 PRESENCE OF AORTOCORONARY BYPASS GRAFT 03/27/2017 SHAQUILLE VARMA MD, FACC FACP CCDS Ot Z95.5 PRESENCE OF CORONARY ANGIOPLASTY IMPLANT 03/27/2017 SHAQUILLE VARMA MD, FACC FACP CCDS Ot Z95.810 PRESENCE OF AUTOMATIC (IMPLANTABLE) CARD 05/01/2017 BARRY REYES GENERAL WORKER Ot R10.31 RIGHT LOWER QUADRANT PAIN 05/01/2017 BARRY REYES GENERAL WORKER Ot Z98.890 OTHER SPECIFIED POSTPROCEDURAL STATES 05/06/2017 BARRY REYES GENERAL WORKER Ot R10.31 RIGHT LOWER QUADRANT PAIN 05/06/2017 BARRY REYES GENERAL WORKER Ot Z98.890 OTHER SPECIFIED POSTPROCEDURAL STATES 06/09/2017 MARBIN IRAHETA DOA Belinda Ot E05.90 THYROTOXICOSIS, UNSP WITHOUT THYROTOXIC 06/09/2017 MARBIN IRAHETA DOA K Ot E11.9 TYPE 2 DIABETES MELLITUS WITHOUT COMPLIC 06/09/2017 MARBIN IRAHETA DOA K Ot E78.00 PURE HYPERCHOLESTEROLEMIA, UNSPECIFIED 06/09/2017 BOONE IRAHETA DO Ot E78.5 HYPERLIPIDEMIA, UNSPECIFIED 06/09/2017 MARBIN IRAHETA DOA K Ot E86.0 DEHYDRATION 06/09/2017 BOONE IRAHETA DO Ot F20.9 SCHIZOPHRENIA, UNSPECIFIED 06/09/2017 BOONE IRAHETA DO Ot F32.9 MAJOR DEPRESSIVE DISORDER, SINGLE EPISOD 06/09/2017 BOONE IRAHETA DO Ot F41.9 ANXIETY DISORDER, UNSPECIFIED 06/09/2017 MARBIN IRAHETA DOA K Ot I12.9 HYPERTENSIVE CHRONIC KIDNEY DISEASE W ST 06/09/2017 BOONE IRAHETA DO Ot I25.10 ATHSCL HEART DISEASE OF [place] CORONARY 06/09/2017 BOONE IRAHETA DO Ot I65.23 OCCLUSION AND STENOSIS OF BILATERAL [place] 06/09/2017 BOONE IRAHETA DO Ot M79.60 4 PAIN IN RIGHT LEG 06/09/2017 BOONE IRAHETA DO Ot M79.60 5 PAIN IN LEFT LEG 06/09/2017 BOONE IRAHETA DO Ot N18.3 CHRONIC KIDNEY DISEASE, STAGE 3 (MODERAT 06/09/2017 BOONE IRAHETA DO Ot R55 SYNCOPE AND COLLAPSE 06/09/2017 MARBIN IRAHETA DOA K Ot Z79.4 MASTER STEAM YACHT (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 06/09/2017 MARBIN IRAHETA DOA K Ot Z79.89 9 OTHER PRISON (CURRENT) DRUG THERAPY 06/09/2017 MARBIN IRAHETA DOA Belinda Ot Z86.73 PRSNL HX OF TIA (TIA), AND CEREB INFRC W 06/09/2017 BOONE IRAHETA DO Ot Z91.19 PATIENT'S NONCOMPLIANCE W [facility] MEDICAL TR 06/09/2017 BOONE IRAHETA DO Ot Z95.1 PRESENCE OF AORTOCORONARY BYPASS GRAFT 06/09/2017 BOONE IRAHETA DO Ot Z95.2 PRESENCE OF PROSTHETIC HEART VALVE 06/09/2017 BOONE IRAHETA DO Ot Z95.81 0 PRESENCE OF AUTOMATIC (IMPLANTABLE) CARD 06/09/2017 BARRY REYES L GENERAL WORKER Ot R10.31 RIGHT LOWER QUADRANT PAIN 06/09/2017 DUSTIN REYESHER L GENERAL WORKER Ot Z98.890 OTHER SPECIFIED POSTPROCEDURAL STATES 06/09/2017 DUSTIN REYESHER L GENERAL WORKER Ot E78.4 OTHER HYPERLIPIDEMIA 06/09/2017 ERIC BARRY L GENERAL WORKER Ot I25.10 ATHSCL HEART DISEASE OF [place] CORONARY 06/09/2017 DUSTIN REYESHER L GENERAL WORKER Ot I25.5 ISCHEMIC CARDIOMYOPATHY 06/09/2017 DUSTIN REYESHER L GENERAL WORKER Ot N18.3 CHRONIC KIDNEY DISEASE, STAGE 3 (MODERAT 12/04/2017 SANDRO STANLEYC, ALI FACP CCDS Ot 250.00 DIAB MIKA WO COMPL, TYPE II OR UNSPEC TY 12/04/2017 SANDRO GLASER FACC, ALI FACP CCDS Ot 272.4 HYPERLIPIDEMIA NEC/NOS 12/04/2017 SANDRO GLASER FACC, ALI FACP CCDS Ot 414.00 CORON ATHEROSCLER NOS TYPE VESSEL, NATIV 12/04/2017 SANDRO GLASER FACC, ALI FACP CCDS Ot 447.9 ARTERIAL DISEASE NOS 12/04/2017 SANDRO GLASER FACC, ALI FACP CCDS Ot 585.9 CHRONIC KIDNEY DISEASE, UNSPECIFIED 12/04/2017 BARRY REYES L GENERAL WORKER Ot E78.5 HYPERLIPIDEMIA, UNSPECIFIED 12/04/2017 ERIC BARRY L GENERAL WORKER Ot I 10 ESSENTIAL (PRIMARY) HYPERTENSION 12/04/2017 ERIC BARRY L GENERAL WORKER Ot I25.10 ATHSCL HEART DISEASE OF [place] CORONARY 12/04/2017 DUSTIN REYESHER L GENERAL WORKER Ot Z95.0 PRESENCE OF CARDIAC PACEMAKER 12/04/2017 DUSTIN REYESHER L GENERAL WORKER Ot E78.4 OTHER HYPERLIPIDEMIA 12/04/2017 ERIC BARRY L GENERAL WORKER Ot I25.10 ATHSCL HEART DISEASE OF [place] CORONARY 12/04/2017 BAIBARRY WHITTINGTON L GENERAL WORKER Ot I25.5 ISCHEMIC CARDIOMYOPATHY 12/04/2017 EVNELSY, BARRY L GENERAL WORKER Ot N18.3 CHRONIC KIDNEY DISEASE, STAGE 3 (MODERAT 12/04/2017 EVNELSY BARRY L GENERAL WORKER Ot R10.31 RIGHT LOWER QUADRANT PAIN 12/04/2017 EVNELSY BARRY L GENERAL WORKER Ot Z98.890 OTHER SPECIFIED POSTPROCEDURAL STATES 12/05/2017 ERIC BARRY L GENERAL WORKER Ot 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 12/05/2017 ERIC BARRY L GENERAL WORKER Ot E66.9 OBESITY, UNSPECIFIED 12/05/2017 ERIC BARRY L GENERAL WORKER Ot F20.9 SCHIZOPHRENIA, UNSPECIFIED 12/05/2017 ERIC BARRY L GENERAL WORKER Ot F32.9 MAJOR DEPRESSIVE DISORDER, SINGLE EPISOD 12/05/2017 ERIC BARRY L GENERAL WORKER Ot I12.9 HYPERTENSIVE CHRONIC KIDNEY DISEASE W ST 12/05/2017 ERIC BARRY L GENERAL WORKER Ot I25.10 ATHSCL HEART DISEASE OF [place] CORONARY 12/05/2017 EVNELSY BARRY L GENERAL WORKER Ot I25.5 ISCHEMIC CARDIOMYOPATHY 12/05/2017 EVNELSY, BARRY L GENERAL WORKER Ot I65.23 OCCLUSION AND STENOSIS OF BILATERAL [place] 12/05/2017 EVNELSY BARRY L GENERAL WORKER Ot 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 9 TYPE 2 DIABETES MELLITUS WITHOUT COMPLIC 07/16/2018 STEVEN VILLELA MD Ot E78. 00 PURE HYPERCHOLESTEROLEMIA, UNSPECIFIED 07/16/2018 STEVEN VILLELA MD Ot F20. 9 SCHIZOPHRENIA, UNSPECIFIED 07/16/2018 STEVEN VILLELA MD Ot F32. 9 MAJOR DEPRESSIVE DISORDER, SINGLE EPISOD 07/16/2018 STEVEN VILLELA MD Ot F41. 9 ANXIETY DISORDER, UNSPECIFIED 07/16/2018 STEVEN VILLELA MD Ot I25. 10 ATHSCL HEART DISEASE OF [place] CORONARY 07/16/2018 STEVEN VILLELA MD Ot K21. 9 GASTRO-ESOPHAGEAL REFLUX DISEASE WITHOUT 07/16/2018 STEVEN VILLELA MD Ot R07. 9 CHEST PAIN, UNSPECIFIED 07/16/2018 STEVEN VILLELA MD Ot R11. 0 NAUSEA 07/16/2018 STEVEN VILLELA MD Ot Z79. 4 PRISON (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 07/16/2018 STEVEN VILLELA MD Ot Z79. 82 MASTER STEAM YACHT (CURRENT) USE OF ASPIRIN 07/16/2018 STEVEN VILLELA MD Ot Z82. 49 FAMILY HX OF ISCHEM HEART DIS AND OTH DI 07/16/2018 STEVEN VILLELA MD Ot Z86. 73 PRSNL HX OF TIA (TIA), AND CEREB INFRC W 07/16/2018 STEVEN VILLELA MD Ot Z87. 19 PERSONAL HISTORY OF OTHER DISEASES OF TH 07/16/2018 STEVEN VILLELA MD Ot Z90. 49 ACQUIRED ABSENCE OF OTHER SPECIFIED PART 07/16/2018 STEVEN VILLELA MD Ot Z90.710 ACQUIRED ABSENCE OF BOTH CERVIX AND UTER 07/16/2018 STEVEN VILLELA MD Ot Z95. 1 PRESENCE OF AORTOCORONARY BYPASS GRAFT 07/16/2018 STEVEN VILLELA MD Ot Z95. 2 PRESENCE OF PROSTHETIC HEART VALVE 07/16/2018 STEVEN VILLELA MD Ot Z95. 5 PRESENCE OF CORONARY ANGIOPLASTY IMPLANT 07/16/2018 STEVEN VILLELA MD Ot Z95.810 PRESENCE OF AUTOMATIC (IMPLANTABLE) CARD 07/19/2018 STEVEN VILLELA MD Ot E11. 9 TYPE 2 DIABETES MELLITUS WITHOUT COMPLIC 07/19/2018 STEVEN VILLELA MD Ot E78. 00 PURE HYPERCHOLESTEROLEMIA, UNSPECIFIED 07/19/2018 MANOHAR MD, STEVEN J Ot F20. 9 SCHIZOPHRENIA, UNSPECIFIED 07/19/2018 STEVEN VILLELA MD Ot F32. 9 MAJOR DEPRESSIVE DISORDER, SINGLE EPISOD 07/19/2018 STEVEN VILLELA MD Ot F41. 9 ANXIETY DISORDER, UNSPECIFIED 07/19/2018 STEVEN VILLELA MD Ot I25. 10 ATHSCL HEART DISEASE OF [place] CORONARY 07/19/2018 STEVEN VILLELA MD Ot K21. 9 GASTRO-ESOPHAGEAL REFLUX DISEASE WITHOUT 07/19/2018 STEVEN VILLELA MD Ot R07. 9 CHEST PAIN, UNSPECIFIED 07/19/2018 STEVEN VILLELA MD Ot R11. 0 NAUSEA 07/19/2018 STEVEN VILLELA MD Ot Z79. 4 MASTER STEAM YACHT (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 07/19/2018 STEVEN VILLELA MD Ot Z79. 82 PRISON (CURRENT) USE OF ASPIRIN 07/19/2018 STEVEN VILLELA MD Ot Z82. 49 FAMILY HX OF ISCHEM HEART DIS AND OTH DI 07/19/2018 STEVEN VILLELA MD, Ot Z86. 73 PRSNL HX OF TIA (TIA), AND CEREB INFRC W 07/19/2018 STEVEN VILLELA MD Ot Z87. 19 PERSONAL HISTORY OF OTHER DISEASES OF TH 07/19/2018 STEVEN VILLELA MD Ot Z90. 49 ACQUIRED ABSENCE OF OTHER SPECIFIED PART 07/19/2018 STEVEN VILLELA MD Ot Z90.710 ACQUIRED ABSENCE OF BOTH CERVIX AND UTER 07/19/2018 STEVEN VILLELA MD Ot Z95. 1 PRESENCE OF AORTOCORONARY BYPASS GRAFT 07/19/2018 STEVEN VILLELA MD Ot Z95. 2 PRESENCE OF PROSTHETIC HEART VALVE 07/19/2018 STEVEN VILLELA MD Ot Z95. 5 PRESENCE OF CORONARY ANGIOPLASTY IMPLANT 07/19/2018 STEVEN VILLELA MD Ot Z95.810 PRESENCE OF AUTOMATIC (IMPLANTABLE) CARD 09/06/2018 SANDRO GLASER FACC, ALI FACP CCDS Ot 250.00 DIAB MIKA WO COMPL, TYPE II OR UNSPEC TY 09/06/2018 SANDRO GLASER FACC, ALI FACP CCDS Ot 272.4 HYPERLIPIDEMIA NEC/NOS 09/06/2018 SANDRO GLASER FACC, ALI FACP CCDS Ot 414.00 CORON ATHEROSCLER NOS TYPE VESSEL, NATIV 09/06/2018 SANDRO GLASER [facility], SHAQUILLE TURCIOS CCDS Ot 447.9 ARTERIAL DISEASE NOS 09/06/2018 SANDRO LGASER [facility], SHAQUILLE FACOmar CCDS Ot 585.9 CHRONIC KIDNEY DISEASE, UNSPECIFIED 09/06/2018 BAIMA, BARRY L GENERAL WORKER Ot E78.5 HYPERLIPIDEMIA, UNSPECIFIED 09/06/2018 BAIMA, BARRY L GENERAL WORKER Ot I 10 ESSENTIAL (PRIMARY) HYPERTENSION 09/06/2018 BAIMA, BARRY L GENERAL WORKER Ot I25.10 ATHSCL HEART DISEASE OF [place] CORONARY 09/06/2018 BAIMA, BARRY L GENERAL WORKER Ot Z95.0 PRESENCE OF CARDIAC PACEMAKER 09/06/2018 BAIMA, BARRY L GENERAL WORKER Ot E78.4 OTHER HYPERLIPIDEMIA 09/06/2018 BAIMA, BARRY L GENERAL WORKER Ot I25.10 ATHSCL HEART DISEASE OF [place] CORONARY 09/06/2018 BAIMA, BARRY L GENERAL WORKER Ot I25.5 ISCHEMIC CARDIOMYOPATHY 09/06/2018 BAIMA, BARRY L GENERAL WORKER Ot N18.3 CHRONIC KIDNEY DISEASE, STAGE 3 (MODERAT 09/06/2018 BAIMA, BARRY L GENERAL WORKER Ot R10.31 RIGHT LOWER QUADRANT PAIN 09/06/2018 BAIMA, BARRY L GENERAL WORKER Ot Z98.890 OTHER SPECIFIED POSTPROCEDURAL STATES 09/07/2018 MART BANKS MD Ot E05.90 THYROTOXICOSIS, UNSP WITHOUT THYROTOXIC 09/07/2018 MART BANKS MD Ot E11 .9 TYPE 2 DIABETES MELLITUS WITHOUT COMPLIC 09/07/2018 MART BANKS MD Ot E78 .2 MIXED HYPERLIPIDEMIA 09/07/2018 MART BANKS MD Ot E86 .0 DEHYDRATION 09/07/2018 MART BANKS MD Ot F20 .9 SCHIZOPHRENIA, UNSPECIFIED 09/07/2018 MART BANKS MD Ot F32 .9 MAJOR DEPRESSIVE DISORDER, SINGLE EPISOD 09/07/2018 MART BANKS MD Ot F41 .9 ANXIETY DISORDER, UNSPECIFIED 09/07/2018 MART BANKS MD Ot H35.30 UNSPECIFIED MACULAR DEGENERATION 09/07/2018 MART BANKS MD Ot I25.10 ATHSCL HEART DISEASE OF [place] CORONARY 09/07/2018 MART BANKS MD, Ot I25 .5 ISCHEMIC CARDIOMYOPATHY 09/07/2018 MART BANKS MD, Ot I65.23 OCCLUSION AND STENOSIS OF BILATERAL [place] 09/07/2018 MART BANKS MD, Ot I95 .1 ORTHOSTATIC HYPOTENSION 09/07/2018 MART BANKS MD, Ot M16.11 UNILATERAL PRIMARY OSTEOARTHRITIS, RIGHT 09/07/2018 MART BANKS MD, Ot N18 .2 CHRONIC KIDNEY DISEASE, STAGE 2 (MILD) 09/07/2018 MART BANKS MD, Ot N28 .9 DISORDER OF KIDNEY AND URETER, UNSPECIFI 09/07/2018 MART BANKS MD, Ot R19 .7 DIARRHEA, UNSPECIFIED 09/07/2018 MART BANKS MD, Ot R26.81 UNSTEADINESS ON FEET 09/07/2018 MART BANKS MD, Ot Z79.02 MASTER STEAM YACHT (CURRENT) USE OF 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 09/07/2018 MART BANKS MD, Ot Z86.73 PRSNL HX OF TIA (TIA), AND CEREB INFRC W 09/07/2018 MART BANKS MD, Ot Z91.19 PATIENT'S NONCOMPLIANCE W [facility] MED[facility] TR 09/07/2018 MART BANKS MD, Ot Z95 .0 PRESENCE OF CARDIAC PACEMAKER 09/07/2018 MART BANKS MD, Ot Z95 .1 PRESENCE OF AORTOCORONARY BYPASS GRAFT 02/23/2019 SANDRO GLASER FACC, ALI FACP CCDS Ot 250.00 DIAB MIKA WO COMPL, TYPE II OR UNSPEC TY 02/23/2019 SANDRO GLASER FACC, ALI FACP CCDS Ot 272.4 HYPERLIPIDEMIA NEC/NOS 02/23/2019 SANDRO GLASER FACC, ALI FACP CCDS Ot 414.00 CORON ATHEROSCLER NOS TYPE VESSEL, NATIV 02/23/2019 SANDRO GLASER FACC, ALI FACP CCDS Ot 447.9 ARTERIAL DISEASE NOS 02/23/2019 SANDRO GLASER FACC, ALI FACP CCDS Ot 585.9 CHRONIC KIDNEY DISEASE, UNSPECIFIED 02/23/2019 BARRY REYES GENERAL WORKER Ot E78.5 HYPERLIPIDEMIA, UNSPECIFIED 02/23/2019 BARRY REYES GENERAL WORKER Ot I 10 ESSENTIAL (PRIMARY) HYPERTENSION 02/23/2019 BAIMA, BARRY L GENERAL WORKER Ot I25.10 ATHSCL HEART DISEASE OF [place] CORONARY 02/23/2019 BAIDUSTIN WHITTINGTONHER L GENERAL WORKER Ot Z95.0 PRESENCE OF CARDIAC PACEMAKER 02/23/2019 BARRY REYES L GENERAL WORKER Ot E78.4 OTHER HYPERLIPIDEMIA 02/23/2019 BAINELSY BARRY L GENERAL WORKER Ot I25.10 ATHSCL HEART DISEASE OF [place] CORONARY 02/23/2019 BAINELSY BARRY L GENERAL WORKER Ot I25.5 ISCHEMIC CARDIOMYOPATHY 02/23/2019 EVNELSY BARRY L GENERAL WORKER Ot N18.3 CHRONIC KIDNEY DISEASE, STAGE 3 (MODERAT 02/23/2019 EVBARRY WHITTINGTON L GENERAL WORKER Ot R10.31 RIGHT LOWER QUADRANT PAIN 02/23/2019 EVNELSY BARRY L GENERAL WORKER Ot Z98.890 OTHER SPECIFIED POSTPROCEDURAL STATES 02/25/2019 KATINA GLASER, HAYLIE Patino Ot E11.9 TYPE 2 DIABETES MELLITUS WITHOUT COMPLIC 02/25/2019 HAYLIE AMBRIZ MD Ot E78.00 PURE HYPERCHOLESTEROLEMIA, UNSPECIFIED 02/25/2019 HAYLIE AMBRIZ MD Ot F20.9 SCHIZOPHRENIA, UNSPECIFIED 02/25/2019 HAYLIE AMBRIZ MD Ot F32.9 MAJOR DEPRESSIVE DISORDER, SINGLE EPISOD 02/25/2019 HAYLIE AMBRIZ MD Ot F41.9 ANXIETY DISORDER, UNSPECIFIED 02/25/2019 HAYLIE AMBRIZ MD Ot I25.10 ATHSCL HEART DISEASE OF [place] CORONARY 02/25/2019 HAYLIE AMBRIZ MD Ot I48.91 UNSPECIFIED ATRIAL FIBRILLATION 02/25/2019 HAYLIE AMBRIZ MD Ot R06.02 SHORTNESS OF BREATH 02/25/2019 HAYLIE AMBRIZ MD Ot R07.89 OTHER CHEST PAIN 02/25/2019 HAYLIE AMBRIZ MD Ot R10.13 EPIGASTRIC PAIN 02/25/2019 HAYLIE AMBRIZ MD Ot Z79.01 MASTER STEAM YACHT (CURRENT) USE OF ANTICOAGULANT 02/25/2019 HAYLIE AMBRIZ MD Ot Z79.4 MASTER STEAM YACHT (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 02/25/2019 HAYLIE AMBRIZ MD Ot Z79.82 MASTER STEAM YACHT (CURRENT) USE OF ASPIRIN 02/25/2019 HAYLIE AMBRIZ MD, Ot Z82.49 FAMILY HX OF ISCHEM HEART DIS AND OTH DI 02/25/2019 HAYLIE AMBRIZ MD, Ot Z86.73 PRSNL HX OF TIA (TIA), AND CEREB INFRC W 02/25/2019 HAYLIE AMBRIZ MD, Ot Z87.440 PERSONAL HISTORY OF URINARY (TRACT) INFE 02/25/2019 HAYLIE AMBRIZ MD, Ot Z95.0 PRESENCE OF CARDIAC PACEMAKER 02/25/2019 HAYLIE AMBRIZ MD, Ot Z95.1 PRESENCE OF AORTOCORONARY BYPASS GRAFT 02/25/2019 HAYLIE AMBRIZ MD, Ot Z95.5 PRESENCE OF CORONARY ANGIOPLASTY IMPLANT 02/26/2019 SANDRO GLASER FACC, SHAQUILLE FACP CCDS Ot E03.9 HYPOTHYROIDISM, UNSPECIFIED 02/26/2019 SANDRO GLASER FACC, ALI FACP CCDS Ot 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 02/26/2019 SANDRO GLASER FACC, ALI FACP CCDS Ot E78.5 HYPERLIPIDEMIA, UNSPECIFIED 02/26/2019 SANDRO GLASER FACC, ALI FACP CCDS Ot F32.9 MAJOR DEPRESSIVE DISORDER, SINGLE EPISOD 02/26/2019 SANDRO GLASER FACC, ALI FACP CCDS Ot I13.10 HYP HRT CHR KDNY DIS W/O HRT FAIL, W S 02/26/2019 SANDRO GLASER FACC, SHAQUILLE FACP CCDS Ot I25.119 ATHSCL HEART DISEASE OF [place] COR ART W 02/26/2019 SANDOR GLASER FACC, ALI FACP CCDS Ot I25.5 ISCHEMIC CARDIOMYOPATHY 02/26/2019 SANDRO GLASER FACC, ALI FACP CCDS Ot I48.0 PAROXYSMAL ATRIAL FIBRILLATION 02/26/2019 SANDRO GLASER FACC, ALI FACP CCDS Ot I73.9 PERIPHERAL VASCULAR DISEASE, UNSPECIFIED 02/26/2019 SANDRO GLASER FACC, ALI FACP CCDS Ot I77.9 DISORDER OF ARTERIES AND ARTERIOLES, UNS 02/26/2019 SANDRO GLASER FACC, ALI FACP CCDS Ot N18.3 CHRONIC KIDNEY DISEASE, STAGE 3 (MODERAT 02/26/2019 SANDRO GLASER FACC, ALI FACP CCDS Ot Z79.01 MASTER STEAM YACHT (CURRENT) USE OF ANTICOAGULANT 02/26/2019 SHAQUILLE VARMA MD, FACC FACP CCDS Ot Z79.02 MASTER STEAM YACHT (CURRENT) USE OF 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 02/26/2019 SHAQUILLE VARMA MD, FACC FACP CCDS Ot Z79.82 MASTER STEAM YACHT (CURRENT) USE OF ASPIRIN 02/26/2019 SHAQUILLE VARMA MD, FACC FACP CCDS Ot Z79.84 PRISON (CURRENT) USE OF ORAL HYPOGLYC 02/26/2019 SANDRO GLASER FACC, SHAQUILLE FACP CCDS Ot Z79.899 OTHER MASTER STEAM YACHT (CURRENT) DRUG THERAPY 02/26/2019 SHAQUILLE VARMA MD, FACC FACP CCDS Ot Z82.49 FAMILY HX OF ISCHEM HEART DIS AND OTH DI 02/26/2019 SHAQUILLE VARMA MD, FACC FACP CCDS Ot Z83.3 FAMILY HISTORY OF DIABETES MELLITUS 02/26/2019 SANDRO GLASER FACC, SHAQUILLE FACP CCDS Ot Z90.710 ACQUIRED ABSENCE OF BOTH CERVIX AND UTER 02/26/2019 SANDRO GLASER FACC, SHAQUILLE FACP CCDS Ot Z91.018 ALLERGY TO OTHER FOODS 02/26/2019 SANDRO GLASER FACC, SHAQUILLE FACP CCDS Ot Z91.048 OTHER NONMEDICINAL SUBSTANCE ALLERGY STA 02/26/2019 SANDRO GLASER FACC, SHAQUILLE FACP CCDS Ot Z91.14 PATIENT'S OTHER NONCOMPLIANCE WITH MEDIC 02/26/2019 SHAQUILLE VARMA MD, FACC FACP CCDS Ot Z95.0 PRESENCE OF CARDIAC PACEMAKER 03/01/2019 HAYLIE AMBRIZ MD Ot E11.9 TYPE 2 DIABETES MELLITUS WITHOUT COMPLIC 03/01/2019 HAYLIE AMBRIZ MD Ot E78.00 PURE HYPERCHOLESTEROLEMIA, UNSPECIFIED 03/01/2019 HAYLIE AMBRIZ MD Ot F20.9 SCHIZOPHRENIA, UNSPECIFIED 03/01/2019 HAYLIE AMBRIZ MD Ot F32.9 MAJOR DEPRESSIVE DISORDER, SINGLE EPISOD 03/01/2019 HAYLIE AMBRIZ MD, Ot F41.9 ANXIETY DISORDER, UNSPECIFIED 03/01/2019 HAYLIE AMBRIZ MD Ot I25.10 ATHSCL HEART DISEASE OF [place] CORONARY 03/01/2019 HAYLIE AMBRIZ MD, Ot I48.91 UNSPECIFIED ATRIAL FIBRILLATION 03/01/2019 HAYLIE AMBRIZ MD Ot R06.02 SHORTNESS OF BREATH 03/01/2019 HAYLIE AMBRIZ MD, Ot R07.89 OTHER CHEST PAIN 03/01/2019 HAYLIE AMBRIZ MD, Ot R10.13 EPIGASTRIC PAIN 03/01/2019 HAYLIE AMBRIZ MD, Ot Z79.01 PRISON (CURRENT) USE OF ANTICOAGULANT 03/01/2019 HAYLIE AMBRIZ MD, Ot Z79.4 MASTER STEAM YACHT (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 03/01/2019 HAYLIE AMBRIZ MD, Ot Z79.82 PRISON (CURRENT) USE OF ASPIRIN 03/01/2019 HAYLIE AMBRIZ MD, Ot Z82.49 FAMILY HX OF ISCHEM HEART DIS AND OTH DI 03/01/2019 HAYLIE AMBRIZ MD, Ot Z86.73 PRSNL HX OF TIA (TIA), AND CEREB INFRC W 03/01/2019 HAYLIE AMBRIZ MD, Ot Z87.440 PERSONAL HISTORY OF URINARY (TRACT) INFE 03/01/2019 HAYLIE AMBRIZ MD, Ot Z95.0 PRESENCE OF CARDIAC PACEMAKER 03/01/2019 HAYLIE AMRBIZ MD Ot Z95.1 PRESENCE OF AORTOCORONARY BYPASS GRAFT 03/01/2019 HAYLIE AMBRIZ MD, Ot Z95.5 PRESENCE OF CORONARY ANGIOPLASTY IMPLANT 03/03/2019 SANDRO GLASER FACC, ALI FACP CCDS Ot E03.9 HYPOTHYROIDISM, UNSPECIFIED 03/03/2019 SANDRO GLASER FACC, ALI FACP CCDS Ot 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 03/03/2019 SANDRO GLASER FACC, ALI FACP CCDS Ot E78.5 HYPERLIPIDEMIA, UNSPECIFIED 03/03/2019 SANDRO GLASER FACC, ALI FACP CCDS Ot F32.9 MAJOR DEPRESSIVE DISORDER, SINGLE EPISOD 03/03/2019 SANDRO GLASER FACC, ALI FACP CCDS Ot I13.10 HYP HRT CHR KDNY DIS 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 FAIL, W S 03/03/2019 SANDRO GLASER FACC, ALI FACP CCDS Ot I25.119 ATHSCL HEART DISEASE OF [place] COR ART W 03/03/2019 SANDRO GLASER FACC, SHAQUILLE FACP CCDS Ot I25.5 ISCHEMIC CARDIOMYOPATHY 03/03/2019 SANDRO GLASER FACC, SHAQUILLE FACP CCDS Ot I48.0 PAROXYSMAL ATRIAL FIBRILLATION 03/03/2019 SANDRO GLASER FACC, SHAQUILLE FACP CCDS Ot I73.9 PERIPHERAL VASCULAR DISEASE, UNSPECIFIED 03/03/2019 SANDRO GLASER FACC, SHAQUILLE FACP CCDS Ot I77.9 DISORDER OF ARTERIES AND ARTERIOLES, UNS 03/03/2019 SANDRO GLASER FACC, SHAQUILLE FACP CCDS Ot N18.3 CHRONIC KIDNEY DISEASE, STAGE 3 (MODERAT 03/03/2019 SANDRO GLASER FACC, SHAQUILLE FACP CCDS Ot Z79.01 PRISON (CURRENT) USE OF ANTICOAGULANT 03/03/2019 SHAQUILLE VARMA MD, FACC FACP CCDS Ot Z79.02 MASTER STEAM YACHT (CURRENT) USE OF 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 03/03/2019 SHAQUILLE VARMA MD, FACC FACP CCDS Ot Z79.82 PRISON (CURRENT) USE OF ASPIRIN 03/03/2019 SHAQUILLE VARMA MD, FACC FACP CCDS Ot Z79.84 MASTER STEAM YACHT (CURRENT) USE OF ORAL HYPOGLYC 03/03/2019 SANDRO GLASER FACC, SHAQUILLE FACP CCDS Ot Z79.899 OTHER MASTER STEAM YACHT (CURRENT) DRUG THERAPY 03/03/2019 SANDRO GLASER FACC, SHAQUILLE FACP CCDS Ot Z82.49 FAMILY HX OF ISCHEM HEART DIS AND OTH DI 03/03/2019 SHAQUILLE VARMA MD, FACC FACP CCDS Ot Z83.3 FAMILY HISTORY OF DIABETES MELLITUS 03/03/2019 SANDRO GLASER FACC, SHAQUILLE FACP CCDS Ot Z90.710 ACQUIRED ABSENCE OF BOTH CERVIX AND UTER 03/03/2019 SANDRO GLASER FACC, SHAQUILLE FACP CCDS Ot Z91.018 ALLERGY TO OTHER FOODS 03/03/2019 SANDRO GLASER FACC, SHAQUILLE FACP CCDS Ot Z91.048 OTHER NONMEDICINAL SUBSTANCE ALLERGY STA 03/03/2019 SANDRO GLASER FACC, ALI FACP CCDS Ot Z91.14 PATIENT'S OTHER NONCOMPLIANCE WITH MEDIC 03/03/2019 SHAQUILLE VARMA MD, FACC FACP CCDS Ot Z95.0 PRESENCE OF CARDIAC PACEMAKER 03/22/2019 BAIMA, BARRY L GENERAL WORKER Ot E11.9 TYPE 2 DIABETES MELLITUS WITHOUT COMPLIC 03/22/2019 BAIMA, BARRY L GENERAL WORKER Ot I25.10 ATHSCL HEART DISEASE OF [place] CORONARY 03/22/2019 BAIMA, BARRY L GENERAL WORKER Ot I25.9 CHRONIC ISCHEMIC HEART DISEASE, UNSPECIF 03/22/2019 BAIMA, BARRY L GENERAL WORKER Ot I48.0 PAROXYSMAL ATRIAL FIBRILLATION 03/22/2019 BAIMA, BARRY L GENERAL WORKER Ot N18.9 CHRONIC KIDNEY DISEASE, UNSPECIFIED 03/22/2019 BAIMA, BARRY L GENERAL WORKER Ot Z01.812 ENCOUNTER FOR PREPROCEDURAL LABORATORY E 04/07/2019 BAIMA, BARRY L GENERAL WORKER Ot E11.9 TYPE 2 DIABETES MELLITUS WITHOUT COMPLIC 04/07/2019 BAIMA, BARRY L GENERAL WORKER Ot I25.10 ATHSCL HEART DISEASE OF [place] CORONARY 04/07/2019 BAIMA, BARRY L GENERAL WORKER Ot I25.9 CHRONIC ISCHEMIC HEART DISEASE, UNSPECIF 04/07/2019 BAIMA, BARRY L GENERAL WORKER Ot I48.0 PAROXYSMAL ATRIAL FIBRILLATION 04/07/2019 BAIMA, BARRY L GENERAL WORKER Ot N18.9 CHRONIC KIDNEY DISEASE, UNSPECIFIED 04/07/2019 BAIMA, BARRY L GENERAL WORKER Ot Z01.812 ENCOUNTER FOR PREPROCEDURAL LABORATORY E 06/06/2019 OTILIA DO, ANDREW K Ot E03.9 HYPOTHYROIDISM, UNSPECIFIED 06/06/2019 OTILIA DO, ANDREW K Ot E11.9 TYPE 2 DIABETES MELLITUS WITHOUT COMPLIC 06/06/2019 OTILIA DO, ANDREW K Ot E83.42 HYPOMAGNESEMIA 06/06/2019 OTILIA DO, ANDREW K Ot F20.9 SCHIZOPHRENIA, UNSPECIFIED 06/06/2019 OTILIA DO, ANDREW K Ot F32.9 MAJOR DEPRESSIVE DISORDER, SINGLE EPISOD 06/06/2019 OTILIA DO, ANDREW K Ot F41.9 ANXIETY DISORDER, UNSPECIFIED 06/06/2019 OTILIA DO, ANDREW K Ot H35.30 UNSPECIFIED MACULAR DEGENERATION 06/06/2019 OTILIA DO, ANDREW K Ot I10 ESSENTIAL (PRIMARY) HYPERTENSION 06/06/2019 OTILIA DO, ANDREW K Ot I25.10 ATHSCL HEART DISEASE OF [place] CORONARY 06/06/2019 OTILIA DO, ANDREW K Ot I25.5 ISCHEMIC CARDIOMYOPATHY 06/06/2019 [facility], ANDREW K Ot I48.0 PAROXYSMAL ATRIAL FIBRILLATION 06/06/2019 [facility], ANDREW K Ot I48.92 UNSPECIFIED ATRIAL FLUTTER 06/06/2019 [facility], ANDREW K Ot 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 06/06/2019 [facility], ANDREW K Ot M19.91 PRIMARY OSTEOARTHRITIS, UNSPECIFIED SITE 06/06/2019 [facility], ANDREW K Ot R06.02 SHORTNESS OF BREATH 06/06/2019 [facility], ANDREW K Ot T82.191 A [facility] COMPL OF CARDIAC PULSE GENERATOR (B 06/06/2019 [facility], ANDREW K Ot Z79.4 PRISON (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 06/06/2019 [facility], ANDREW K Ot Z90.49 ACQUIRED ABSENCE OF OTHER SPECIFIED PART 06/06/2019 [facility], ANDREW K Ot Z90.710 ACQUIRED ABSENCE OF BOTH CERVIX AND UTER 06/06/2019 [facility], ANDREW K Ot Z95.1 PRESENCE OF AORTOCORONARY BYPASS GRAFT 06/06/2019 [facility], ANDREW K Ot Z95.5 PRESENCE OF CORONARY ANGIOPLASTY IMPLANT 06/09/2019 [facility], ANDREW K Ot E03.9 HYPOTHYROIDISM, UNSPECIFIED 06/09/2019 [facility], ANDREW K Ot E11.9 TYPE 2 DIABETES MELLITUS WITHOUT COMPLIC 06/09/2019 [facility], ANDREW K Ot E83.42 HYPOMAGNESEMIA 06/09/2019 [facility], ANDREW K Ot F20.9 SCHIZOPHRENIA, UNSPECIFIED 06/09/2019 [facility], ANDREW K Ot F32.9 MAJOR DEPRESSIVE DISORDER, SINGLE EPISOD 06/09/2019 [facility], ANDREW K Ot F41.9 ANXIETY DISORDER, UNSPECIFIED 06/09/2019 [facility], ANDREW K Ot H35.30 UNSPECIFIED MACULAR DEGENERATION 06/09/2019 [facility], ANDREW K Ot I10 ESSENTIAL (PRIMARY) HYPERTENSION 06/09/2019 [facility], ANDREW K Ot I25.10 ATHSCL HEART DISEASE OF [place] CORONARY 06/09/2019 [facility], ANDREW K Ot I25.5 ISCHEMIC CARDIOMYOPATHY 06/09/2019 [facility], ANDREW K Ot I48.0 PAROXYSMAL ATRIAL FIBRILLATION 06/09/2019 ANDREW BINGHAM DO Ot I48.92 UNSPECIFIED ATRIAL FLUTTER 06/09/2019 ANDREW BINGHAM DO Ot 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 06/09/2019 ANDREW BINGHAM DO Ot M19.91 PRIMARY OSTEOARTHRITIS, UNSPECIFIED SITE 06/09/2019 ANDREW BINGHAM DO Ot R06.02 SHORTNESS OF BREATH 06/09/2019 ANDREW BINGHAM DO Ot T82.191 A [facility] COMPL OF CARDIAC PULSE GENERATOR (B 06/09/2019 ANDREW BINGHAM DO Ot Z79.4 MASTER STEAM YACHT (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 06/09/2019 ANDREW BINGHAM DO Ot Z90.49 ACQUIRED ABSENCE OF OTHER SPECIFIED PART 06/09/2019 ANDREW BINGHAM DO Ot Z90.710 ACQUIRED ABSENCE OF BOTH CERVIX AND UTER 06/09/2019 ANDREW BINGHAM DO Ot Z95.1 PRESENCE OF AORTOCORONARY BYPASS GRAFT 06/09/2019 ANDREW BINGHAM DO Ot Z95.5 PRESENCE OF CORONARY ANGIOPLASTY IMPLANT Procedures Code Description Performed By Per carol On OtTho Palacio 02/12/2012 23804 ROUT INE VENIPUNCTURE 02/18/2012 82481 MICR O ALBUMIN-IN HOUSE 02/18/2012 96908 ROUT INE VENIPUNCTURE 02/18/2012 03165 CMP 02/18/2012 78771 LIPI D PANEL 02/18/2012 [id number] GF R CALC (RESULT ONLY) 02/18/2012 18677 DIGOXIN 02/19/2012 57443 CBC 02/19/2012 03624 A1C (RML) 02/20/2012 42306 VLAD V PSYTX 45/50 MIN 02/25/2012 05536 ROUT INE VENIPUNCTURE 04/27/2012 79089 CBC 04/27/2012 99537 CMP 04/27/2012 [id number] GF R CALC (RESULT ONLY) 04/27/2012 Mikal Estrada 04/27/2012 80432 PSYT X PT&/FAMILY 45 MINUTES 04/28/2012 24233 A1C (IN-HOUSE) 05/19/2012 37593 HEMOCCULT 05/24/2012 86201 UA W / CULTURE IF INDICATED 05/24/2012 24209 MAMM OGRAM, SCREENING 05/25/2012 13540 ROUT INE VENIPUNCTURE 06/23/2012 55382 CBC 06/23/2012 78803 CMP 06/23/2012 18582 LIPI D PANEL 06/23/2012 [id number] GF R CALC (RESULT ONLY) 06/23/2012 02617 DIGOXIN 06/24/2012 31929 BNP 06/25/2012 22122 VLAD V PSYTX 45/50 MIN 09/08/2012 Cardiolog [place] 10/13/2012 62488 ROUT INE VENIPUNCTURE 10/13/2012 77073 CMP 10/13/2012 11562 LIPI D PANEL 10/13/2012 96864 MAGNESIUM 10/13/2012 1824534 GF R CALC (RESULT ONLY) 10/13/2012 97775 DIGOXIN 10/13/2012 84636 ROUT INE VENIPUNCTURE 11/18/2012 34384 CMP 11/18/2012 22654 LIPI D PANEL 11/18/2012 9566823 GF R CALC (RESULT ONLY) 11/18/2012 56191 DIGOXIN 11/18/2012 57170 ROUT INE VENIPUNCTURE 05/26/2013 06385 MICR O ALBUMIN-IN HOUSE 05/26/2013 69149 A1C (IN-HOUSE) 05/26/2013 07783 MICR OALBUMIN 05/26/2013 [id number] GF R CALC (RESULT ONLY) 05/26/2013 83413 BMP 05/26/2013 79847 XRAY SI JOINTS LESS THAN 3 VIEWS 08/25/2013 50588 XRAY HIP RIGHT UNILATERAL MIN 2 VIEWS 08/25/2013 89.45 PACE MAKER RATE CHECK 09/05/2013 Results Test Result Range CBC With Differential/Platelet - 7 10:50 WBC 6.0 x10E3/uL 3.4-10.8 RBC 4.49 x10E6/uL 3.77-5.28 Hemoglobin 13.0 g/dL 11.1-15.9 Hematocrit 39.9 % 34.0-46.6 MCV 89 fL 79-97 MCH 29.0 pg 26.6-33.0 MCHC 32.6 g/dL 31.5-35.7 RDW 14.0 % 12.3-15.4 Platelets 177 x10E3/uL 150-379 Neutrophils 70 % Lymphs 22 % Monocytes 5 % Eos 2 % Basos 1 % Neutrophils (Absolute) 4.2 x10E3/uL 1.4- 7.0 Lymphs (Absolute) 1.3 x10E3/uL 0.7-3.1 Monocytes(Absolute) 0.3 x10E3/uL 0.1-0.9 Eos (Absolute) 0.1 x10E3/uL 0.0-0.4 Baso (Absolute) 0.0 x10E3/uL 0.0-0.2 Immature Granulocytes 0 % Immature Grans (Abs) 0.0 x10E3/uL 0.0-0. 1 Comp. Metabolic Panel (14) - 03/20/16 10 :50 Glucose, Serum 287 mg/dL 65-99 BUN 20 [...] - 04/11/16 17:19 Urine Culture, Routine Note Complete blood count (CBC) with automate d white blood cell (WBC) differential - 09/25/16 21:50 Blood leukocytes automated count (number/volume) 8.3 10*3/uL 4.3-11.0 Blood erythrocytes automated count (number/volume) 4.29 10*6/uL 4.35-5.85 Venous blood hemoglobin measurement (mass/volume) 12.4 g/dL 11.5-16.0 Blood hematocrit (volume fraction) 37 % 35-52 Automated erythrocyte mean corpuscular volume 86 [ foz_us] 80-99 Automated erythrocyte mean corpuscular h emoglobin (mass per erythrocyte) 29 pg 25-34 Automated erythrocyte mean corpuscular h emoglobin concentration measurement (mass/volume) 34 g/dL 32-36 Automated erythrocyte distribution width ratio 13. 3 % 10.0- 14.5 Automated blood platelet count [...] 10*3 1.0-4.0 Blood monocytes automated count (number/volume) 0. 6 10*3 0.0-1.0 Automated eosinophil count 0.2 10*3/uL 0 .0-0.3 Automated blood basophil count (count/volume) 0.1 10*3/uL 0.0-0.1 Urine drug screening test - 09/25/16 21: 50 Urine phencyclidine detection by screening method NEGATIVE NEGATIVE Urine benzodiazepines detection by screening method NEGATIVE NEGATIVE Urine cocaine detection NEGATIVE NEGATI VE Urine amphetamines detection by screening method N EGATIVE NEGATIVE Urine methamphetamine detection by screening method NEGATIVE NEGATIVE Urine cannabinoids detection by screening method N EGATIVE NEGATIVE Urine opiates detection by screening method NEGATI VE NEGATIVE Urine barbiturates detection NEGATIVE N EGATIVE Screening urine tricyclic antidepressants detection NEGATIVE NEGATIVE Urine methadone detection by screening method NEGA TIVE NEGATIVE Urine oxycodone detection NEGATIVE NEGA TIVE Urine propoxyphene detection NEGATIVE N EGATIVE Comprehensive metabolic panel - 09/25/16 21:50 Serum or plasma sodium measurement (moles/volume) 135 mmol/L 135-145 Serum or plasma potassium measurement (moles/volume) 4.6 mmol/L 3.6-5.0 Serum or plasma chloride measurement (moles/volume) 106 mmol/L 98-107 Carbon dioxide 16 mmol/L 21-32 Serum or plasma anion gap determination (moles/volume) 13 mmol/L 5-14 Serum or plasma urea nitrogen measurement (mass/volume ) 29 mg/dL 7-18 Serum or plasma creatinine measurement (mass/volume) 1.23 mg/dL 0.60-1.30 Serum or plasma urea nitrogen/creatinine mass ratio 24 NRG Serum or plasma creatinine measurement w ith calculation of estimated glomerular filtration rate 44 NRG Serum or plasma glucose measurement (mass/volume) 247 mg/dL 70-105 Serum or plasma calcium measurement (mass/volume) 8.5 mg/dL 8.5-10.1 Serum or plasma total bilirubin measurement (mass/volu me) 0.5 mg/dL 0.1-1.0 Serum or plasma alkaline phosphatase dio surement (enzymatic activity/volume) 117 U/L 40-136 Serum or plasma aspartate aminotransfera se measurement (enzymatic activity/volume) 17 U/L 5-34 Serum or plasma alanine aminotransferase measurement (enzymatic activity/volume) 25 U/L 0-55 Serum or plasma protein measurement (mass/volume) 7.3 g/dL 6.4-8.2 Serum or plasma albumin measurement (mass/volume) 3.9 g/dL 3.2-4.5 Complete urinalysis with reflex to cultu re - 09/25/16 21:50 Urine color determination YELLOW NRG Urine clarity determination CLEAR NR G Urine pH measurement by test strip 5 5-9 Specific gravity of urine by test strip 1.015 1.016-1.022 Urine protein assay by test strip, semi-quantitative 1+ NEGATIVE Urine glucose detection by automated test strip 1+ NEGATIVE Erythrocytes detection in urine sediment by light micr oscopy NEGATIVE NEGATIVE Urine ketones detection by automated test strip NE GATIVE NEGATIVE Urine nitrite detection by test strip NEGATIVE NEGATIVE Urine total bilirubin detection by test strip NEGA TIVE NEGATIVE Urine urobilinogen measurement by automated test strip (mass/volume) NORMAL NORMAL Urine leukocyte esterase detection by dipstick 3+ NEGATIVE Automated urine sediment erythrocyte cou nt by microscopy (number/high power field) NONE NRG Automated urine sediment leukocyte count by microscopy (number/high power field) [HPF] NRG Bacteria detection in urine sediment by light microsco py FEW NRG Squamous epithelial cells detection in u rine sediment by light microscopy 2-5 NRG Crystals detection in urine sediment by light microsco py NONE NRG Casts detection in urine sediment by light microscopy NONE NRG Mucus detection in urine sediment by light microscopy NEGATIVE NRG Complete urinalysis with reflex to culture YES NRG THYROID STIMULATING HORMONE - 09/25/16 2 1:50 THYROID STIMULATING HORMONE 1.83 u[iU]/mL 0.35-4.94 Bacterial urine culture - 09/25/16 21:50 Bacterial urine culture [id number] NRG COLONY COUNT 10,000/ML - 100,000/ML NRG FTX;REPORTABLE SENSITIVITY REPORTED 09/28 10:40 NRG FREE TEXT ENTRY 3 MIXED GRAM POSITIVE JACQUELYN NRG Bacterial susceptibility panel - 7 21:50 Gentamicin susceptibility test by minimum inhibitory c oncentration <= NRG Trimethoprim/sulfamethoxazole susceptibi lity test by minimum inhibitoryconcentration <= NRG Ampicillin susceptibility test by minimum inhibitory c oncentration >= NRG Tobramycin susceptibility test by minimum inhibitory c oncentration <= NRG Cefazolin susceptibility test by minimum inhibitory co ncentration <= NRG Ceftriaxone susceptibility test by minimum inhibitory concentration <= NRG Ampicillin/sulbactam susceptibility test by minimum inhibitory concentration 4 NRG Piperacillin/tazobactam susceptibility t est by minimum inhibitory concentration <= NRG Ciprofloxacin susceptibility test by minimum inhibitor y concentration <= NRG Meropenem susceptibility test by minimum inhibitory co ncentration <= NRG Nitrofurantoin susceptibility test by mi nimum inhibitory concentration 32 NRG Aztreonam susceptibility test by minimum inhibitory co ncentration <= NRG Extended spectrum beta lactamase (ESBL) producing bacteria susceptibility test by minimum inhibitory concentration - NR Urine drug screening test - 10/20/16 22: 49 Urine phencyclidine detection by screening method NEGATIVE NEGATIVE Urine benzodiazepines detection by screening method NEGATIVE NEGATIVE Urine cocaine detection NEGATIVE NEGATI VE Urine amphetamines detection by screening method N EGATIVE NEGATIVE Urine methamphetamine detection by screening method NEGATIVE NEGATIVE Urine cannabinoids detection by screening method N EGATIVE NEGATIVE Urine opiates detection by screening method NEGATI VE NEGATIVE Urine barbiturates detection NEGATIVE N EGATIVE Screening urine tricyclic antidepressants detection NEGATIVE NEGATIVE Urine methadone detection by screening method NEGA TIVE NEGATIVE Urine oxycodone detection NEGATIVE NEGA TIVE Urine propoxyphene detection NEGATIVE N EGATIVE Complete urinalysis with reflex to cultu re - 10/20/16 22:49 Urine color determination YELLOW NRG Urine clarity determination CLEAR NR G Urine pH measurement by test strip 6.5 5-9 Specific gravity of urine by test strip 1.010 1.016-1.022 Urine protein assay by test strip, semi-quantitative NEGATIVE NEGATIVE Urine glucose detection by automated test strip 2+ NEGATIVE Erythrocytes detection in urine sediment by light micr oscopy NEGATIVE NEGATIVE Urine ketones detection by automated test strip NE GATIVE NEGATIVE Urine nitrite detection by test strip NEGATIVE NEGATIVE Urine total bilirubin detection by test strip NEGA TIVE NEGATIVE Urine urobilinogen measurement by automated test strip (mass/volume) NORMAL NORMAL Urine leukocyte esterase detection by dipstick 3+ NEGATIVE Automated urine sediment erythrocyte cou nt by microscopy (number/high power field) NONE NRG Automated urine sediment leukocyte count by microscopy (number/high power field) [HPF] NRG Bacteria detection in urine sediment by light microsco py FEW NRG Squamous epithelial cells detection in u rine sediment by light microscopy 2-5 NRG Crystals detection in urine sediment by light microsco py NONE NRG Casts detection in urine sediment by light microscopy NONE NRG Mucus detection in urine sediment by light microscopy NEGATIVE NRG Complete urinalysis with reflex to culture YES NRG Bacterial urine culture - 10/20/16 22:49 URINE CULTURE RESULTS <10,000/ML NRG Complete blood count (CBC) with automate d white blood cell (WBC) differential - 10/20/16 23:37 Blood leukocytes automated count (number/volume) 9.8 10*3/uL 4.3-11.0 Blood erythrocytes automated count (number/volume) 4.03 10*6/uL 4.35-5.85 Venous blood hemoglobin measurement (mass/volume) 12.0 g/dL 11.5-16.0 Blood hematocrit (volume fraction) 34 % 35-52 Automated erythrocyte mean corpuscular volume 84 [ foz_us] 80-99 Automated erythrocyte mean corpuscular h emoglobin (mass per erythrocyte) 30 pg 25-34 Automated erythrocyte mean corpuscular h emoglobin concentration measurement (mass/volume) 35 g/dL 32-36 Automated erythrocyte distribution width ratio 13. 2 % 10.0- 14.5 Automated blood platelet count [...] 10*3 1.0-4.0 Blood monocytes automated count (number/volume) 0. 6 10*3 0.0-1.0 Automated eosinophil count 0.2 10*3/uL 0 .0-0.3 Automated blood basophil count (count/volume) 0.1 10*3/uL 0.0-0.1 Comprehensive metabolic panel - 10/20/16 23:37 Serum or plasma sodium measurement (moles/volume) 129 mmol/L 135-145 Serum or plasma potassium measurement (moles/volume) 4.7 mmol/L 3.6-5.0 Serum or plasma chloride measurement (moles/volume) 97 mmol/L 98-107 Carbon dioxide 21 mmol/L 21-32 Serum or plasma anion gap determination (moles/volume) 11 mmol/L 5-14 Serum or plasma urea nitrogen measurement (mass/volume ) 25 mg/dL 7-18 Serum or plasma creatinine measurement (mass/volume) 1.39 mg/dL 0.60-1.30 Serum or plasma urea nitrogen/creatinine mass ratio 18 NRG Serum or plasma creatinine measurement w ith calculation of estimated glomerular filtration rate 38 NRG Serum or plasma glucose measurement (mass/volume) 240 mg/dL 70-105 Serum or plasma calcium measurement (mass/volume) 9.4 mg/dL 8.5-10.1 Serum or plasma total bilirubin measurement (mass/volu me) 0.3 mg/dL 0.1-1.0 Serum or plasma alkaline phosphatase dio surement (enzymatic activity/volume) 144 U/L 40-136 Serum or plasma aspartate aminotransfera se measurement (enzymatic activity/volume) 34 U/L 5-34 Serum [...] < mg/dL 5.0-20.0 Serum or plasma acetaminophen measuremen t (mass/volume) - 10/20/16 23:37 Serum or plasma acetaminophen measurement (mass/volume ) < ug/mL 10-30 Serum or plasma ethanol measurement (mas s/volume) - 10/20/16 23:37 Serum or plasma ethanol measurement (mass/volume) < mg/dL <10 Complete blood count (CBC) with automate d white blood cell (WBC) differential - 10/21/16 05:05 Blood leukocytes automated count (number/volume) 9.2 10*3/uL 4.3-11.0 Blood erythrocytes automated count (number/volume) 4.16 10*6/uL 4.35-5.85 Venous blood hemoglobin measurement (mass/volume) 12.4 g/dL 11.5-16.0 Blood hematocrit (volume fraction) 35 % 35-52 Automated erythrocyte mean corpuscular volume 85 [ foz_us] 80-99 Automated erythrocyte mean corpuscular h emoglobin (mass per erythrocyte) 30 pg 25-34 Automated erythrocyte mean corpuscular h emoglobin concentration measurement (mass/volume) 35 g/dL 32-36 Automated erythrocyte distribution width ratio 13. 4 % 10.0- 14.5 Automated blood platelet count [...] 10*3 1.0-4.0 Blood monocytes automated count (number/volume) 0. 6 10*3 0.0-1.0 Automated eosinophil count 0.1 10*3/uL 0 .0-0.3 Automated blood basophil count (count/volume) 0.0 10*3/uL 0.0-0.1 Comprehensive metabolic panel - 10/21/16 05:05 Serum or plasma sodium measurement (moles/volume) 133 mmol/L 135-145 Serum or plasma potassium measurement (moles/volume) 4.5 mmol/L 3.6-5.0 Serum or plasma chloride measurement (moles/volume) 99 mmol/L 98-107 Carbon dioxide 23 mmol/L 21-32 Serum or plasma anion gap determination (moles/volume) 11 mmol/L 5-14 Serum or plasma urea nitrogen measurement (mass/volume ) 24 mg/dL 7-18 Serum or plasma creatinine measurement (mass/volume) 1.13 mg/dL 0.60-1.30 Serum or plasma urea nitrogen/creatinine mass ratio 21 NRG Serum or plasma creatinine measurement w ith calculation of estimated glomerular filtration rate 48 NRG Serum or plasma glucose measurement (mass/volume) 173 mg/dL 70-105 Serum or plasma calcium measurement (mass/volume) 9.5 mg/dL 8.5-10.1 Serum or plasma total bilirubin measurement (mass/volu me) 0.3 mg/dL 0.1-1.0 Serum or plasma alkaline phosphatase dio surement (enzymatic activity/volume) 124 U/L 40-136 Serum or plasma aspartate aminotransfera se measurement (enzymatic activity/volume) 29 U/L 5-34 Serum [...] % Not Estab. Neutrophils (Absolute) 5.5 x10E3/uL 1.4- 7.0 Lymphs (Absolute) 1.1 x10E3/uL 0.7-3.1 Monocytes(Absolute) 0.4 x10E3/uL 0.1-0.9 Eos (Absolute) 0.2 x10E3/uL 0.0-0.4 Baso (Absolute) 0.0 x10E3/uL 0.0-0.2 Immature Granulocytes 0 % Not Esta b. Immature Grans (Abs) 0.0 x10E3/uL 0.0-0. 1 CMP - 12/31/16 09:52 Glucose, Serum 195 [...] 18 IU/L 0-32 CBC With Differential/Platelet - 7 09:52 WBC 7.2 x10E3/uL 3.4-10.8 RBC 4.58 [...] % Not Estab. Neutrophils (Absolute) 5.5 x10E3/uL 1.4- 7.0 Lymphs (Absolute) 1.1 x10E3/uL 0.7-3.1 Monocytes(Absolute) 0.4 x10E3/uL 0.1-0.9 Eos (Absolute) 0.2 x10E3/uL 0.0-0.4 Baso (Absolute) 0.0 x10E3/uL 0.0-0.2 Immature Granulocytes 0 % Not Esta b. Immature Grans (Abs) 0.0 x10E3/uL 0.0-0. 1 Comp. Metabolic Panel (14) - 12/31/16 09 :52 Glucose, Serum 195 mg/dL 65-99 BUN 20 [...] IU/L 0-32 Automated blood complete blood count (he mogram) panel - 02/24/17 08:22 Blood leukocytes automated count (number/volume) 7.6 10*3/uL 4.3-11.0 Blood erythrocytes automated count (number/volume) 4.24 10*6/uL 4.35-5.85 Venous blood hemoglobin measurement (mass/volume) 12.4 g/dL 11.5-16.0 Blood hematocrit (volume fraction) 37 % 35-52 Automated erythrocyte mean corpuscular volume 87 [ foz_us] 80-99 Automated erythrocyte mean corpuscular h emoglobin (mass per erythrocyte) 29 pg 25-34 Automated erythrocyte mean corpuscular h emoglobin concentration measurement (mass/volume) 34 g/dL 32-36 Automated erythrocyte distribution width ratio 13. 0 % 10.0- 14.5 Automated blood platelet count [...] 5-14 Serum or plasma urea nitrogen measurement (mass/volume ) 26 mg/dL 7-18 Serum or plasma creatinine measurement (mass/volume) 1.38 mg/dL 0.60-1.30 Serum or plasma urea nitrogen/creatinine mass ratio 19 NRG Serum or plasma creatinine measurement w ith calculation of estimated glomerular filtration rate 38 NRG Serum or plasma glucose measurement (mass/volume) 258 mg/dL 70-105 Serum or plasma calcium measurement (mass/volume) 9.1 mg/dL 8.5-10.1 Serum or plasma total bilirubin measurement (mass/volu me) 0.3 mg/dL 0.1-1.0 Serum or plasma alkaline phosphatase dio surement (enzymatic activity/volume) 143 U/L 40-136 Serum or plasma aspartate aminotransfera se measurement (enzymatic activity/volume) 16 U/L 5-34 Serum [...] Serum or plasma cholesterol in HDL measurement (mass/v olume) 44 mg/dL 40-60 Cholesterol in LDL [mass/volume] in serum or plasma by direct assay 129 mg/dL 1-129 Serum or plasma cholesterol in VLDL measurement (mass/ volume) 37 mg/dL 5-40 PT panel in platelet poor plasma by coag ulation assay - 02/24/17 08:22 Prothrombin time (PT) in platelet poor plasma by coagu lation assay 14.0 s 12.2-14.7 INR in platelet poor plasma or blood by coagulation as say 1.1 0.8-1.4 Activated partial thromboplastin time (a PTT) in platelet poor plasma bycoagulation assay - 02/24/17 08:22 Activated partial thromboplastin time (a PTT) in platelet poor plasma bycoagulation assay 28 s 24-35 Methicillin resistant Staphylococcus aur eus (MRSA) screening culture - 02/24/17 08:22 MRSA SCREEN RESULT MRSA ISOLATED NRG Capillary blood glucose measurement by g lucometer (mass/volume) - 02/24/17 18:22 Capillary blood glucose measurement by glucometer (mas s/volume) 124 mg/dL 70-110 Automated blood complete blood count (he mogram) panel - 02/25/17 04:53 Blood leukocytes automated count (number/volume) 6.5 10*3/uL 4.3-11.0 Blood erythrocytes automated count (number/volume) 3.61 10*6/uL 4.35-5.85 Venous blood hemoglobin measurement (mass/volume) 10.6 g/dL 11.5-16.0 Blood hematocrit (volume fraction) 32 % 35-52 Automated erythrocyte mean corpuscular volume 88 [ foz_us] 80-99 Automated erythrocyte mean corpuscular h emoglobin (mass per erythrocyte) 29 pg 25-34 Automated erythrocyte mean corpuscular h emoglobin concentration measurement (mass/volume) 33 g/dL 32-36 Automated erythrocyte distribution width ratio 13. 1 % 10.0- 14.5 Automated blood platelet count (count/volume) 184 10*3/uL 130-400 Automated blood platelet mean volume measurement 9.5 [foz_us] 7.4-10.4 Whole blood basic metabolic panel - 02/07 04:53 Serum or plasma sodium measurement (moles/volume) 139 mmol/L 135-145 Serum or plasma potassium measurement (moles/volume) 5.1 mmol/L 3.6-5.0 Serum or plasma chloride measurement (moles/volume) 110 mmol/L 98-107 Carbon dioxide 22 mmol/L 21-32 Serum or plasma anion gap determination (moles/volume) 7 mmol/L 5-14 Serum or plasma urea nitrogen measurement (mass/volume ) 22 mg/dL 7-18 Serum or plasma creatinine measurement (mass/volume) 1.05 mg/dL 0.60-1.30 Serum or plasma urea nitrogen/creatinine mass ratio 21 NRG Serum or plasma creatinine measurement w ith calculation of estimated glomerular filtration rate 52 NRG Serum or plasma glucose measurement (mass/volume) 157 mg/dL 70-105 Serum or plasma calcium measurement (mass/volume) 8.2 mg/dL 8.5-10.1 Digoxin - 02/25/17 04:53 Digoxin 0.49 ng/mL 0.80-2.00 Automated blood complete blood count (he mogram) panel - 03/24/17 08:12 Blood leukocytes automated count (number/volume) 8.6 10*3/uL 4.3-11.0 Blood erythrocytes automated count (number/volume) 4.45 10*6/uL 4.35-5.85 Venous blood hemoglobin measurement (mass/volume) 13.1 g/dL 11.5-16.0 Blood hematocrit (volume fraction) 38 % 35-52 Automated erythrocyte mean corpuscular volume 85 [ foz_us] 80-99 Automated erythrocyte mean corpuscular h emoglobin (mass per erythrocyte) 29 pg 25-34 Automated erythrocyte mean corpuscular h emoglobin concentration measurement (mass/volume) 35 g/dL 32-36 Automated erythrocyte distribution width ratio 12. 9 % 10.0- 14.5 Automated blood platelet count (count/volume) 166 10*3/uL 130-400 Automated blood platelet mean volume measurement 10.2 [foz_us] 7.4-10.4 PT panel in platelet poor plasma by coag ulation assay - 03/24/17 08:12 Prothrombin time (PT) in platelet poor plasma by coagu lation assay 13.2 s 12.2-14.7 INR in platelet poor plasma or blood by coagulation as say 1.0 0.8-1.4 Activated partial thromboplastin time (a PTT) in platelet poor plasma bycoagulation assay - 03/24/17 08:12 Activated partial thromboplastin time (a PTT) in platelet poor plasma bycoagulation assay 27 s 24-35 Comprehensive metabolic panel - 03/24/17 08:12 Serum or plasma sodium measurement (moles/volume) 136 mmol/L 135-145 Serum or plasma potassium measurement (moles/volume) 4.9 mmol/L 3.6-5.0 Serum or plasma chloride measurement (moles/volume) 101 mmol/L 98-107 Carbon dioxide 23 mmol/L 21-32 Serum or plasma anion gap determination (moles/volume) 12 mmol/L 5-14 Serum or plasma urea nitrogen measurement (mass/volume ) 24 mg/dL 7-18 Serum or plasma creatinine measurement (mass/volume) 1.47 mg/dL 0.60-1.30 Serum or plasma urea nitrogen/creatinine mass ratio 16 NRG Serum or plasma creatinine measurement w ith calculation of estimated glomerular filtration rate 35 NRG Serum or plasma glucose measurement (mass/volume) 347 mg/dL 70-105 Serum or plasma calcium measurement (mass/volume) 9.6 mg/dL 8.5-10.1 Serum or plasma total bilirubin measurement (mass/volu me) 0.4 mg/dL 0.1-1.0 Serum or plasma alkaline phosphatase dio surement (enzymatic activity/volume) 153 U/L 40-136 Serum or plasma aspartate aminotransfera se measurement (enzymatic activity/volume) 24 U/L 5-34 Serum [...] Serum or plasma cholesterol in HDL measurement (mass/v olume) 47 mg/dL 40-60 Cholesterol in LDL [mass/volume] in serum or plasma by direct assay 89 mg/dL 1-129 Serum or plasma cholesterol in VLDL measurement (mass/ volume) 24 mg/dL 5-40 Digoxin - 03/24/17 08:12 Digoxin 0.56 ng/mL 0.80-2.00 Methicillin resistant Staphylococcus aur eus (MRSA) screening culture - 03/24/17 08:12 Methicillin resistant Staphylococcus aureus (MRSA) scr eening culture NEG NRG Capillary blood glucose measurement by g lucometer (mass/volume) - 03/24/17 16:33 Capillary blood glucose measurement by glucometer (mas s/volume) 219 mg/dL 70-110 Capillary blood glucose measurement by g lucometer (mass/volume) - 03/24/17 20:04 Capillary blood glucose measurement by glucometer (mas s/volume) 226 mg/dL 70-110 Automated blood complete blood count (he mogram) panel - 03/25/17 05:20 Blood leukocytes automated count (number/volume) 6.1 10*3/uL 4.3-11.0 Blood erythrocytes automated count (number/volume) 3.82 10*6/uL 4.35-5.85 Venous blood hemoglobin measurement (mass/volume) 11.3 g/dL 11.5-16.0 Blood hematocrit (volume fraction) 34 % 35-52 Automated erythrocyte mean corpuscular volume 88 [ foz_us] 80-99 Automated erythrocyte mean corpuscular h emoglobin (mass per erythrocyte) 30 pg 25-34 Automated erythrocyte mean corpuscular h emoglobin concentration measurement (mass/volume) 34 g/dL 32-36 Automated erythrocyte distribution width ratio 13. 2 % 10.0- 14.5 Automated blood platelet count (count/volume) 142 10*3/uL 130-400 Automated blood platelet mean volume measurement 10.2 [foz_us] 7.4-10.4 Whole blood basic metabolic panel - 03/09 09/23 05:20 Serum or plasma sodium measurement (moles/volume) 136 mmol/L 135-145 Serum or plasma potassium measurement (moles/volume) 5.4 mmol/L 3.6-5.0 Serum or plasma chloride measurement (moles/volume) 104 mmol/L 98-107 Carbon dioxide 23 mmol/L 21-32 Serum or plasma anion gap determination (moles/volume) 9 mmol/L 5-14 Serum or plasma urea nitrogen measurement (mass/volume ) 19 mg/dL 7-18 Serum or plasma creatinine measurement (mass/volume) 1.20 mg/dL 0.60-1.30 Serum or plasma urea nitrogen/creatinine mass ratio 16 NRG Serum or plasma creatinine measurement w ith calculation of estimated glomerular filtration rate 45 NRG Serum or plasma glucose measurement (mass/volume) 223 mg/dL 70-105 Serum or plasma calcium measurement (mass/volume) 8.5 mg/dL 8.5-10.1 Capillary blood glucose measurement by g lucometer (mass/volume) - 03/25/17 05:33 Capillary blood glucose measurement by glucometer (mas s/volume) 244 mg/dL 70-110 Serum or plasma potassium measurement (m oles/volume) - 03/25/17 08:35 Serum or plasma potassium measurement (moles/volume) 4.4 mmol/L 3.6-5.0 Capillary blood glucose measurement by g lucometer (mass/volume) - 03/25/17 11:06 Capillary blood glucose measurement by glucometer (mas s/volume) 183 mg/dL 70-110 Complete blood count (CBC) with automate d white blood cell (WBC) differential - 06/08/17 18:22 Blood leukocytes automated count (number/volume) 7.7 10*3/uL 4.3-11.0 Blood erythrocytes automated count (number/volume) 4.48 10*6/uL 4.35-5.85 Venous blood hemoglobin measurement (mass/volume) 13.0 g/dL 11.5-16.0 Blood hematocrit (volume fraction) 38 % 35-52 Automated erythrocyte mean corpuscular volume 84 [ foz_us] 80-99 Automated erythrocyte mean corpuscular h emoglobin (mass per erythrocyte) 29 pg 25-34 Automated erythrocyte mean corpuscular h emoglobin concentration measurement (mass/volume) 35 g/dL 32-36 Automated erythrocyte distribution width ratio 13. 6 % 10.0- 14.5 Automated blood platelet count [...] 10*3 1.0-4.0 Blood monocytes automated count (number/volume) 0. 3 10*3 0.0-1.0 Automated eosinophil count 0.1 10*3/uL 0 .0-0.3 Automated blood basophil count (count/volume) 0.0 10*3/uL 0.0-0.1 Comprehensive metabolic panel - 06/08/17 18:22 Serum or plasma sodium measurement (moles/volume) 131 mmol/L 135-145 Serum or plasma potassium measurement (moles/volume) 4.9 mmol/L 3.6-5.0 Serum or plasma chloride measurement (moles/volume) 103 mmol/L 98-107 Carbon dioxide 22 mmol/L 21-32 Serum or plasma anion gap determination (moles/volume) 6 mmol/L 5-14 Serum or plasma urea nitrogen measurement (mass/volume ) 23 mg/dL 7-18 Serum or plasma creatinine measurement (mass/volume) 1.24 mg/dL 0.60-1.30 Serum or plasma urea nitrogen/creatinine mass ratio 19 NRG Serum or plasma creatinine measurement w ith calculation of estimated glomerular filtration rate 43 NRG Serum or plasma glucose measurement (mass/volume) 252 mg/dL 70-105 Serum or plasma calcium measurement (mass/volume) 9.2 mg/dL 8.5-10.1 Serum or plasma total bilirubin measurement (mass/volu me) 0.5 mg/dL 0.1-1.0 Serum or plasma alkaline phosphatase dio surement (enzymatic activity/volume) 104 U/L 40-136 Serum or plasma aspartate aminotransfera se measurement (enzymatic activity/volume) 16 U/L 5-34 Serum or plasma alanine aminotransferase measurement (enzymatic activity/volume) 19 U/L 0-55 Serum or plasma protein measurement (mass/volume) 7.5 g/dL 6.4-8.2 Serum or plasma albumin measurement (mass/volume) 4.2 g/dL 3.2-4.5 Magnesium - 06/08/17 18:22 Magnesium 1.6 mg/dL 1.8-2.4 Serum or plasma troponin i.cardiac measu rement (mass/volume) - 06/08/17 18:22 Serum or plasma troponin i.cardiac measurement (mass/v olume) < ng/mL <0.30 Serum or plasma C reactive protein measu rement (mass/volume) - 06/08/17 18:22 Serum or plasma C reactive protein measurement (mass/v olume) 0.34 mg/dL 0.00-0.50 Digoxin - 06/08/17 18:22 Digoxin 0.60 ng/mL 0.80-2.00 Complete urinalysis with reflex to cultu re - 06/08/17 20:20 Urine color determination YELLOW NRG Urine clarity determination CLEAR NR G Urine pH measurement by test strip 5 5-9 Specific gravity of urine by test strip 1.020 1.016-1.022 Urine protein assay by test strip, semi-quantitative NEGATIVE NEGATIVE Urine glucose detection by automated test strip 3+ NEGATIVE Erythrocytes detection in urine sediment by light micr oscopy NEGATIVE NEGATIVE Urine ketones detection by automated test strip NE GATIVE NEGATIVE Urine nitrite detection by test strip NEGATIVE NEGATIVE Urine total bilirubin detection by test strip NEGA TIVE NEGATIVE Urine urobilinogen measurement by automated test strip (mass/volume) NORMAL NORMAL Urine leukocyte esterase detection by dipstick 1+ NEGATIVE Automated urine sediment erythrocyte cou nt by microscopy (number/high power field) NONE NRG Automated urine sediment leukocyte count by microscopy (number/high power field) NONE NRG Bacteria detection in urine sediment by light microsco py NEGATIVE NRG Squamous epithelial cells detection in u rine sediment by light microscopy 0-2 NRG Crystals detection in urine sediment by light microsco py NONE NRG Casts detection in urine sediment by light microscopy PRESENT NRG Mucus detection in urine sediment by light microscopy NEGATIVE NRG Complete urinalysis with reflex to culture NO NRG Hyaline casts detection in urine sediment by light kristin roscopy RARE NRG Urine drug screening test - 06/08/17 20: 20 Urine phencyclidine detection by screening method NEGATIVE NEGATIVE Urine benzodiazepines detection by screening method NEGATIVE NEGATIVE Urine cocaine detection NEGATIVE NEGATI VE Urine amphetamines detection by screening method N EGATIVE NEGATIVE Urine methamphetamine detection by screening method NEGATIVE NEGATIVE Urine cannabinoids detection by screening method N EGATIVE NEGATIVE Urine opiates detection by screening method NEGATI VE NEGATIVE Urine barbiturates detection NEGATIVE N EGATIVE Screening urine tricyclic antidepressants detection NEGATIVE NEGATIVE Urine methadone detection by screening method NEGA TIVE NEGATIVE Urine oxycodone detection NEGATIVE NEGA TIVE Urine propoxyphene detection NEGATIVE N EGATIVE Capillary blood glucose measurement by g lucometer (mass/volume) - 06/08/17 23:36 Capillary blood glucose measurement by glucometer (mas s/volume) 193 mg/dL 70-110 Capillary blood glucose measurement by g lucometer (mass/volume) - 06/09/17 05:23 Capillary blood glucose measurement by glucometer (mas s/volume) 179 mg/dL 70-110 Complete blood count (CBC) with automate d white blood cell (WBC) differential - 06/09/17 06:14 Blood leukocytes automated count (number/volume) 5.5 10*3/uL 4.3-11.0 Blood erythrocytes automated count (number/volume) 3.81 10*6/uL 4.35-5.85 Venous blood hemoglobin measurement (mass/volume) 11.0 g/dL 11.5-16.0 Blood hematocrit (volume fraction) 33 % 35-52 Automated erythrocyte mean corpuscular volume 86 [ foz_us] 80-99 Automated erythrocyte mean corpuscular h emoglobin (mass per erythrocyte) 29 pg 25-34 Automated erythrocyte mean corpuscular h emoglobin concentration measurement (mass/volume) 34 g/dL 32-36 Automated erythrocyte distribution width ratio 13. 8 % 10.0- 14.5 Automated blood platelet count [...] 10*3 1.0-4.0 Blood monocytes automated count (number/volume) 0. 4 10*3 0.0-1.0 Automated eosinophil count 0.1 10*3/uL 0 .0-0.3 Automated blood basophil count (count/volume) 0.0 10*3/uL 0.0-0.1 Whole blood basic metabolic panel - 05/24 06:14 Serum or plasma sodium measurement (moles/volume) 138 mmol/L 135-145 Serum or plasma potassium measurement (moles/volume) 4.6 mmol/L 3.6-5.0 Serum or plasma chloride measurement (moles/volume) 110 mmol/L 98-107 Carbon dioxide 20 mmol/L 21-32 Serum or plasma anion gap determination (moles/volume) 8 mmol/L 5-14 Serum or plasma urea nitrogen measurement (mass/volume ) 16 mg/dL 7-18 Serum or plasma creatinine measurement (mass/volume) 1.04 mg/dL 0.60-1.30 Serum or plasma urea nitrogen/creatinine mass ratio 15 NRG Serum or plasma creatinine measurement w ith calculation of estimated glomerular filtration rate 53 NRG Serum or plasma glucose measurement (mass/volume) 168 mg/dL 70-105 Serum or plasma calcium measurement (mass/volume) 8.3 mg/dL 8.5-10.1 Capillary blood glucose measurement by g lucometer (mass/volume) - 06/09/17 11:32 Capillary blood glucose measurement by glucometer (mas s/volume) 131 mg/dL 70-110 Capillary blood glucose measurement by g lucometer (mass/volume) - 06/09/17 16:16 Capillary blood glucose measurement by glucometer (mas s/volume) 169 mg/dL 70-110 SPECIMEN INTEGRITY COMPROMISED - 8 12:31 SPECIMEN INTEGRITY COMPROMISED NRG Complete blood count (CBC) with automate d white blood cell (WBC) differential - 07/16/18 08:05 Blood leukocytes automated count (number/volume) 6.7 10*3/uL 4.3-11.0 Blood erythrocytes automated count (number/volume) 4.49 10*6/uL 4.35-5.85 Venous blood hemoglobin measurement (mass/volume) 13.4 g/dL 11.5-16.0 Blood hematocrit (volume fraction) 40 % 35-52 Automated erythrocyte mean corpuscular volume 89 [ foz_us] 80-99 Automated erythrocyte mean corpuscular h emoglobin (mass per erythrocyte) 30 pg 25-34 Automated erythrocyte mean corpuscular h emoglobin concentration measurement (mass/volume) 34 g/dL 32-36 Automated erythrocyte distribution width ratio 13. 4 % 10.0- 14.5 Automated blood platelet count [...] 10*3 1.0-4.0 Blood monocytes automated count (number/volume) 0. 5 10*3 0.0-1.0 Automated eosinophil count 0.2 10*3/uL 0 .0-0.3 Automated blood basophil count (count/volume) 0.0 10*3/uL 0.0-0.1 PT panel in platelet poor plasma by coag ulation assay - 07/16/18 08:05 Prothrombin time (PT) in platelet poor plasma by coagu lation assay 13.2 s 12.2-14.7 INR in platelet poor plasma or blood by coagulation as say 1.0 0.8-1.4 Activated partial thromboplastin time (a PTT) in platelet poor plasma bycoagulation assay - 07/16/18 08:05 Activated partial thromboplastin time (a PTT) in platelet poor plasma bycoagulation assay 28 s 24-35 Comprehensive metabolic panel - 07/16/18 08:05 Serum or plasma sodium measurement (moles/volume) 140 mmol/L 135-145 Serum or plasma potassium measurement (moles/volume) 5.1 mmol/L 3.6-5.0 Serum or plasma chloride measurement (moles/volume) 108 mmol/L 98-107 Carbon dioxide 21 mmol/L 21-32 Serum or plasma anion gap determination (moles/volume) 11 mmol/L 5-14 Serum or plasma urea nitrogen measurement (mass/volume ) 22 mg/dL 7-18 Serum or plasma creatinine measurement (mass/volume) 1.26 mg/dL 0.60-1.30 Serum or plasma urea nitrogen/creatinine mass ratio 17 NRG Serum or plasma creatinine measurement w ith calculation of estimated glomerular filtration rate 42 NRG Serum or plasma glucose measurement (mass/volume) 124 mg/dL 70-105 Serum or plasma calcium measurement (mass/volume) 9.6 mg/dL 8.5-10.1 Serum or plasma total bilirubin measurement (mass/volu me) 0.5 mg/dL 0.1-1.0 Serum or plasma alkaline phosphatase dio surement (enzymatic activity/volume) 138 U/L 40-136 Serum or plasma aspartate aminotransfera se measurement (enzymatic activity/volume) 20 U/L 5-34 Serum or plasma alanine aminotransferase measurement (enzymatic activity/volume) 24 U/L 0-55 Serum or plasma protein measurement (mass/volume) 7.2 g/dL 6.4-8.2 Serum or plasma albumin measurement (mass/volume) 4.0 g/dL 3.2-4.5 CALCIUM CORRECTED 9.6 mg/dL 8.5-10.1 Magnesium - 07/16/18 08:05 Magnesium 1.6 mg/dL 1.8-2.4 Serum or plasma troponin i.cardiac measu rement (mass/volume) - 07/16/18 08:05 Serum or plasma troponin i.cardiac measurement (mass/v olume) < ng/mL <0.028 Myoglobin, serum - 07/16/18 08:05 Myoglobin, serum 80.0 ng/mL 10.0-92.0 Lipase - 07/16/18 08:05 Lipase 20 U/L 8-78 Serum or plasma lithium measurement (mol es/volume) - 07/16/18 08:05 BNP level 77.1 pg/mL <100.0 Serum or plasma troponin i.cardiac measu rement (mass/volume) - 07/16/18 10:07 Serum or plasma troponin i.cardiac measurement (mass/v olume) < ng/mL <0.028 Complete blood count (CBC) with automate d white blood cell (WBC) differential - 09/05/18 13:17 Blood leukocytes automated count (number/volume) 13.3 10*3/uL 4.3-11.0 Blood erythrocytes automated count (number/volume) 4.71 10*6/uL 4.35-5.85 Venous blood hemoglobin measurement (mass/volume) 13.9 g/dL 11.5-16.0 Blood hematocrit (volume fraction) 41 % 35-52 Automated erythrocyte mean corpuscular volume 86 [ foz_us] 80-99 Automated erythrocyte mean corpuscular h emoglobin (mass per erythrocyte) 30 pg 25-34 Automated erythrocyte mean corpuscular h emoglobin concentration measurement (mass/volume) 34 g/dL 32-36 Automated erythrocyte distribution width ratio 13. 5 % 10.0- 14.5 Automated blood platelet count (count/volume) 205 10*3/uL 130-400 Automated blood platelet mean volume measurement 11.0 [foz_us] 7.4-10.4 Automated blood neutrophils/100 leukocytes 85 % 42-75 Automated blood lymphocytes/100 leukocytes 10 % 12-44 Blood monocytes/100 leukocytes 4 % 0-12 Automated blood eosinophils/100 leukocytes 0 % 0-10 Automated blood basophils/100 leukocytes 0 % 0-10 Blood neutrophils automated count (number/volume) 11.3 10*3 1.8-7.8 Blood lymphocytes automated count (number/volume) 1.3 10*3 1.0-4.0 Blood monocytes automated count (number/volume) 0. 6 10*3 0.0-1.0 Automated eosinophil count 0.0 10*3/uL 0 .0-0.3 Automated blood basophil count (count/volume) 0.1 10*3/uL 0.0-0.1 PT panel in platelet poor plasma by coag ulation assay - 09/05/18 13:17 Prothrombin time (PT) in platelet poor plasma by coagu lation assay 13.8 s 12.2-14.7 INR in platelet poor plasma or blood by coagulation as say 1.0 0.8-1.4 Comprehensive metabolic panel - 09/05/18 13:17 Serum or plasma sodium measurement (moles/volume) 133 mmol/L 135-145 Serum or plasma potassium measurement (moles/volume) 6.0 mmol/L 3.6-5.0 Serum or plasma chloride measurement (moles/volume) 101 mmol/L 98-107 Carbon dioxide 19 mmol/L 21-32 Serum or plasma anion gap determination (moles/volume) 13 mmol/L 5-14 Serum or plasma urea nitrogen measurement (mass/volume ) 32 mg/dL 7-18 Serum or plasma creatinine measurement (mass/volume) 2.37 mg/dL 0.60-1.30 Serum or plasma urea nitrogen/creatinine mass ratio 14 NRG Serum or plasma creatinine measurement w ith calculation of estimated glomerular filtration rate 20 NRG Serum or plasma glucose measurement (mass/volume) 247 mg/dL 70-105 Serum or plasma calcium measurement (mass/volume) 9.3 mg/dL 8.5-10.1 Serum or plasma total bilirubin measurement (mass/volu me) 0.8 mg/dL 0.1-1.0 Serum or plasma alkaline phosphatase dio surement (enzymatic activity/volume) 103 U/L 40-136 Serum or plasma aspartate aminotransfera se measurement (enzymatic activity/volume) 15 U/L 5-34 Serum or plasma alanine aminotransferase measurement (enzymatic activity/volume) 16 U/L 0-55 Serum or plasma protein measurement (mass/volume) 7.4 g/dL 6.4-8.2 Serum or plasma albumin measurement (mass/volume) 4.2 g/dL 3.2-4.5 CALCIUM CORRECTED 9.1 mg/dL 8.5-10.1 Activated partial thromboplastin time (a PTT) in platelet poor plasma bycoagulation assay - 09/05/18 13:17 Activated partial thromboplastin time (a PTT) in platelet poor plasma bycoagulation assay 26 s 24-35 Serum or plasma troponin i.cardiac measu rement (mass/volume) - 09/05/18 13:17 Serum or plasma troponin i.cardiac measurement (mass/v olume) < ng/mL <0.028 Serum or plasma lithium measurement (mol es/volume) - 09/05/18 13:17 BNP PT 39.5 pg/mL <100.0 Blood lactic acid measurement (moles/vol ume) - 09/05/18 13:40 Blood lactic acid measurement (moles/volume) 2.09 mmol/L 0.50-2.00 Bacterial blood culture - 09/05/18 13:40 QUANTITY OF GROWTH Isolated NRG Bacterial blood culture [id number] NRG Bacterial blood culture - 09/05/18 13:55 Bacterial blood culture NG NRG Complete urinalysis with reflex to cultu re - 09/05/18 14:01 Urine color determination YELLOW NRG Urine clarity determination VERY CLOUDY NRG Urine pH measurement by test strip 5 5-9 Specific gravity of urine by test strip 1.025 1.016-1.022 Urine protein assay by test strip, semi-quantitative 2+ NEGATIVE Urine glucose detection by automated test strip 1+ NEGATIVE Erythrocytes detection in urine sediment by light micr oscopy 2+ NEGATIVE Urine ketones detection by automated test strip 1+ NEGATIVE Urine nitrite detection by test strip NEGATIVE NEGATIVE Urine total bilirubin detection by test strip 1+ NEGATIVE Urine urobilinogen measurement by automated test strip (mass/volume) 4 mg/dL NORMAL Urine leukocyte esterase detection by dipstick 3+ NEGATIVE Automated urine sediment erythrocyte cou nt by microscopy (number/high power field) [HPF] NRG Automated urine sediment leukocyte count by microscopy (number/high power field) [HPF] NRG Bacteria detection in urine sediment by light microsco py FEW NRG Squamous epithelial cells detection in u rine sediment by light microscopy 25-50 NRG Crystals detection in urine sediment by light microsco py NONE NRG Casts detection in urine sediment by light microscopy NONE NRG Mucus detection in urine sediment by light microscopy NEGATIVE NRG Complete urinalysis with reflex to culture CULTURE PENDING NRG Bacterial urine culture - 09/05/18 14:01 Bacterial urine culture [id number] NRG COLONY COUNT >100,000/ML NRG FTX;REPORTABLE SUSCEPTIBILITY REPORTED 09/08 17:10 NRG Dirithromycin susceptibility test by dis k diffusion - 09/05/18 14:01 Vancomycin susceptibility test by minimum inhibitory c oncentration 1 NRG Levofloxacin susceptibility test by minimum inhibitory concentration <= NRG Ampicillin susceptibility test by minimum inhibitory c oncentration 2 NRG Nitrofurantoin susceptibility test by mi nimum inhibitory concentration <= NRG Linezolid susceptibility test by minimum inhibitory co ncentration 2 NRG Daptomycin susc KRISTIN 4 NRG Serum or plasma lactate measurement (mol es/volume) - 09/05/18 16:08 Serum or plasma lactate measurement (moles/volume) 1.01 mmol/L 0.50-2.00 Capillary blood glucose measurement by g lucometer (mass/volume) - 09/05/18 17:12 Capillary blood glucose measurement by glucometer (mas s/volume) 186 mg/dL 70-110 Methicillin resistant Staphylococcus aur eus (MRSA) screening culture - 09/05/18 17:20 Methicillin resistant Staphylococcus aureus (MRSA) scr eening culture NEG NRG C DIFFICILE AG + TOXIN A/B. - 09/05/18 1 7:39 RESULTS NEGATIVE FOR ANTIGEN AND TOXIN A/B NRG Capillary blood glucose measurement by g lucometer (mass/volume) - 09/05/18 20:36 Capillary blood glucose measurement by glucometer (mas s/volume) 291 mg/dL 70-110 Whole blood basic metabolic panel - 08/09 019 21:30 Serum or plasma sodium measurement (moles/volume) 133 mmol/L 135-145 Serum or plasma potassium measurement (moles/volume) 4.9 mmol/L 3.6-5.0 Serum or plasma chloride measurement (moles/volume) 106 mmol/L 98-107 Carbon dioxide 17 mmol/L 21-32 Serum or plasma anion gap determination (moles/volume) 10 mmol/L 5-14 Serum or plasma urea nitrogen measurement (mass/volume ) 34 mg/dL 7-18 Serum or plasma creatinine measurement (mass/volume) 1.90 mg/dL 0.60-1.30 Serum or plasma urea nitrogen/creatinine mass ratio 18 NRG Serum or plasma creatinine measurement w ith calculation of estimated glomerular filtration rate 26 NRG Serum or plasma glucose measurement (mass/volume) 250 mg/dL 70-105 Serum or plasma calcium measurement (mass/volume) 7.5 mg/dL 8.5-10.1 Serum or plasma phosphate measurement (m ass/volume) - 09/05/18 21:30 Serum or plasma phosphate measurement (mass/volume) 3.9 mg/dL 2.3-4.7 Magnesium - 09/05/18 21:30 Magnesium 1.3 mg/dL 1.8-2.4 Blood lactic acid measurement (moles/vol ume) - 09/05/18 21:30 Blood lactic acid measurement (moles/volume) 2.00 mmol/L 0.50-2.00 Complete blood count (CBC) with automate d white blood cell (WBC) differential - 09/06/18 03:04 Blood leukocytes automated count (number/volume) 7.2 10*3/uL 4.3-11.0 Blood erythrocytes automated count (number/volume) 3.64 10*6/uL 4.35-5.85 Venous blood hemoglobin measurement (mass/volume) 10.7 g/dL 11.5-16.0 Blood hematocrit (volume fraction) 32 % 35-52 Automated erythrocyte mean corpuscular volume 89 [ foz_us] 80-99 Automated erythrocyte mean corpuscular h emoglobin (mass per erythrocyte) 29 pg 25-34 Automated erythrocyte mean corpuscular h emoglobin concentration measurement (mass/volume) 33 g/dL 32-36 Automated erythrocyte distribution width ratio 13. 0 % 10.0- 14.5 Automated blood platelet count (count/volume) 126 10*3/uL 130-400 Automated blood platelet mean volume measurement 10.9 [foz_us] 7.4-10.4 Automated blood neutrophils/100 leukocytes 66 % 42-75 Automated blood lymphocytes/100 leukocytes 23 % 12-44 Blood monocytes/100 leukocytes 9 % 0-12 Automated blood eosinophils/100 leukocytes 2 % 0-10 Automated blood basophils/100 leukocytes 1 % 0-10 Blood neutrophils automated count (number/volume) 4.7 10*3 1.8-7.8 Blood lymphocytes automated count (number/volume) 1.6 10*3 1.0-4.0 Blood monocytes automated count (number/volume) 0. 6 10*3 0.0-1.0 Automated eosinophil count 0.1 10*3/uL 0 .0-0.3 Automated blood basophil count (count/volume) 0.0 10*3/uL 0.0-0.1 Whole blood basic metabolic panel - 03/27 03:04 Serum or plasma sodium measurement (moles/volume) 135 mmol/L 135-145 Serum or plasma potassium measurement (moles/volume) 4.6 mmol/L 3.6-5.0 Serum or plasma chloride measurement (moles/volume) 108 mmol/L 98-107 Carbon dioxide 18 mmol/L 21-32 Serum or plasma anion gap determination (moles/volume) 9 mmol/L 5-14 Serum or plasma urea nitrogen measurement (mass/volume ) 33 mg/dL 7-18 Serum or plasma creatinine measurement (mass/volume) 1.62 mg/dL 0.60-1.30 Serum or plasma urea nitrogen/creatinine mass ratio 20 NRG Serum or plasma creatinine measurement w ith calculation of estimated glomerular filtration rate 32 NRG Serum or plasma glucose measurement (mass/volume) 99 mg/dL 70-105 Serum or plasma calcium measurement (mass/volume) 7.7 mg/dL 8.5-10.1 Serum or plasma phosphate measurement (m ass/volume) - 09/06/18 03:04 Serum or plasma phosphate measurement (mass/volume) 3.2 mg/dL 2.3-4.7 Magnesium - 09/06/18 03:04 Magnesium 1.8 mg/dL 1.8-2.4 Capillary blood glucose measurement by g lucometer (mass/volume) - 09/06/18 07:57 Capillary blood glucose measurement by glucometer (mas s/volume) 85 mg/dL 70-110 Capillary blood glucose measurement by g lucometer (mass/volume) - 09/06/18 12:06 Capillary blood glucose measurement by glucometer (mas s/volume) 162 mg/dL 70-110 Capillary blood glucose measurement by g lucometer (mass/volume) - 09/06/18 16:28 Capillary blood glucose measurement by glucometer (mas s/volume) 154 mg/dL 70-110 Capillary blood glucose measurement by g lucometer (mass/volume) - 09/06/18 21:07 Capillary blood glucose measurement by glucometer (mas s/volume) 115 mg/dL 70-110 Complete blood count (CBC) with automate d white blood cell (WBC) differential - 09/07/18 05:30 Blood leukocytes automated count (number/volume) 5.9 10*3/uL 4.3-11.0 Blood erythrocytes automated count (number/volume) 3.82 10*6/uL 4.35-5.85 Venous blood hemoglobin measurement (mass/volume) 11.2 g/dL 11.5-16.0 Blood hematocrit (volume fraction) 34 % 35-52 Automated erythrocyte mean corpuscular volume 88 [ foz_us] 80-99 Automated erythrocyte mean corpuscular h emoglobin (mass per erythrocyte) 29 pg 25-34 Automated erythrocyte mean corpuscular h emoglobin concentration measurement (mass/volume) 33 g/dL 32-36 Automated erythrocyte distribution width ratio 13. 3 % 10.0- 14.5 Automated blood platelet count (count/volume) 165 10*3/uL 130-400 Automated blood platelet mean volume measurement 10.5 [foz_us] 7.4-10.4 Automated blood neutrophils/100 leukocytes 73 % 42-75 Automated blood lymphocytes/100 leukocytes 19 % 12-44 Blood monocytes/100 leukocytes 6 % 0-12 Automated blood eosinophils/100 leukocytes 2 % 0-10 Automated blood basophils/100 leukocytes 1 % 0-10 Blood neutrophils automated count (number/volume) 4.3 10*3 1.8-7.8 Blood lymphocytes automated count (number/volume) 1.1 10*3 1.0-4.0 Blood monocytes automated count (number/volume) 0. 4 10*3 0.0-1.0 Automated eosinophil count 0.1 10*3/uL 0 .0-0.3 Automated blood basophil count (count/volume) 0.0 10*3/uL 0.0-0.1 Comprehensive metabolic panel - 09/07/18 05:30 Serum or plasma sodium measurement (moles/volume) 137 mmol/L 135-145 Serum or plasma potassium measurement (moles/volume) 5.2 mmol/L 3.6-5.0 Serum or plasma chloride measurement (moles/volume) 113 mmol/L 98-107 Carbon dioxide 19 mmol/L 21-32 Serum or plasma anion gap determination (moles/volume) 5 mmol/L 5-14 Serum or plasma urea nitrogen measurement (mass/volume ) 19 mg/dL 7-18 Serum or plasma creatinine measurement (mass/volume) 0.93 mg/dL 0.60-1.30 Serum or plasma urea nitrogen/creatinine mass ratio 20 NRG Serum or plasma creatinine measurement w ith calculation of estimated glomerular filtration rate 60 NRG Serum or plasma glucose measurement (mass/volume) 77 mg/dL 70-105 Serum or plasma calcium measurement (mass/volume) 7.9 mg/dL 8.5-10.1 Serum or plasma total bilirubin measurement (mass/volu me) 0.4 mg/dL 0.1-1.0 Serum or plasma alkaline phosphatase dio surement (enzymatic activity/volume) 84 U/L 40-136 Serum or plasma aspartate aminotransfera se measurement (enzymatic activity/volume) 14 U/L 5-34 Serum or plasma alanine aminotransferase measurement (enzymatic activity/volume) 13 U/L 0-55 Serum or plasma protein measurement (mass/volume) 5.7 g/dL 6.4-8.2 Serum or plasma albumin measurement (mass/volume) 3.2 g/dL 3.2-4.5 CALCIUM CORRECTED 8.5 mg/dL 8.5-10.1 Capillary blood glucose measurement by g lucometer (mass/volume) - 09/07/18 05:57 Capillary blood glucose measurement by glucometer (mas s/volume) 75 mg/dL 70-110 Capillary blood glucose measurement by g lucometer (mass/volume) - 09/07/18 11:32 Capillary blood glucose measurement by glucometer (mas s/volume) 82 mg/dL 70-110 TSH - 02/14/19 13:59 TSH 2.52 mIU/L 0.40-4.50 Automated blood complete blood count (he mogram) panel - 02/22/19 07:47 Blood leukocytes automated count (number/volume) 11.0 10*3/uL 4.3-11.0 Blood erythrocytes automated count (number/volume) 4.66 10*6/uL 4.35-5.85 Venous blood hemoglobin measurement (mass/volume) 13.4 g/dL 11.5-16.0 Blood hematocrit (volume fraction) 39 % 35-52 Automated erythrocyte mean corpuscular volume 84 [ foz_us] 80-99 Automated erythrocyte mean corpuscular h emoglobin (mass per erythrocyte) 29 pg 25-34 Automated erythrocyte mean corpuscular h emoglobin concentration measurement (mass/volume) 34 g/dL 32-36 Automated erythrocyte distribution width ratio 13. 4 % 10.0- 14.5 Automated blood platelet count (count/volume) 225 10*3/uL 130-400 Automated blood platelet mean volume measurement 9.9 [foz_us] 7.4-10.4 PT panel in platelet poor plasma by coag ulation assay - 02/22/19 07:47 Prothrombin time (PT) in platelet poor plasma by coagu lation assay 16.0 s 12.2-14.7 INR in platelet poor plasma or blood by coagulation as say 1.2 0.8-1.4 Activated partial thromboplastin time (a PTT) in platelet poor plasma bycoagulation assay - 02/22/19 07:47 Activated partial thromboplastin time (a PTT) in platelet poor plasma bycoagulation assay 31 s 24-35 Comprehensive metabolic panel - 02/22/19 07:47 Serum or plasma sodium measurement (moles/volume) 138 mmol/L 135-145 Serum or plasma potassium measurement (moles/volume) 4.8 mmol/L 3.6-5.0 Serum or plasma chloride measurement (moles/volume) 105 mmol/L 98-107 Carbon dioxide 19 mmol/L 21-32 Serum or plasma anion gap determination (moles/volume) 14 mmol/L 5-14 Serum or plasma urea nitrogen measurement (mass/volume ) 18 mg/dL 7-18 Serum or plasma creatinine measurement (mass/volume) 1.29 mg/dL 0.60-1.30 Serum or plasma urea nitrogen/creatinine mass ratio 14 NRG Serum or plasma creatinine measurement w ith calculation of estimated glomerular filtration rate 41 NRG Serum or plasma glucose measurement (mass/volume) 168 mg/dL 70-105 Serum or plasma calcium measurement (mass/volume) 9.4 mg/dL 8.5-10.1 Serum or plasma total bilirubin measurement (mass/volu me) 0.7 mg/dL 0.1-1.0 Serum or plasma alkaline phosphatase dio surement (enzymatic activity/volume) 147 U/L 40-136 Serum or plasma aspartate aminotransfera se measurement (enzymatic activity/volume) 20 U/L 5-34 Serum or plasma alanine aminotransferase measurement (enzymatic activity/volume) 18 U/L 0-55 Serum or plasma protein measurement (mass/volume) 7.5 g/dL 6.4-8.2 Serum or plasma albumin measurement (mass/volume) 4.1 g/dL 3.2-4.5 CALCIUM CORRECTED 9.3 mg/dL 8.5-10.1 Lipid 1996 panel - 02/22/19 07:47 Serum or plasma triglyceride measurement (mass/volume) 117 mg/dL <150 Serum or plasma cholesterol measurement (mass/volume) 129 mg/dL < 200 Serum or plasma cholesterol in HDL measurement (mass/v olume) 42 mg/dL 40-60 Cholesterol in LDL [mass/volume] in serum or plasma by direct assay 68 mg/dL 1-129 Serum or plasma cholesterol in VLDL measurement (mass/ volume) 23 mg/dL 5-40 [id number] - 02/22/19 07:47 [id number] 0.60 ng/mL 0.80-2.00 Methicillin resistant Staphylococcus aur eus (MRSA) screening culture - 02/22/19 07:47 Methicillin resistant Staphylococcus aureus (MRSA) scr eening culture NEG NRG Complete blood count (CBC) with automate d white blood cell (WBC) differential - 02/23/19 13:00 Blood leukocytes automated count (number/volume) 9.6 10*3/uL 4.3-11.0 Blood erythrocytes automated count (number/volume) 4.50 10*6/uL 4.35-5.85 Venous blood hemoglobin measurement (mass/volume) 13.2 g/dL 11.5-16.0 Blood hematocrit (volume fraction) 39 % 35-52 Automated erythrocyte mean corpuscular volume 86 [ foz_us] 80-99 Automated erythrocyte mean corpuscular h emoglobin (mass per erythrocyte) 29 pg 25-34 Automated erythrocyte mean corpuscular h emoglobin concentration measurement (mass/volume) 34 g/dL 32-36 Automated erythrocyte distribution width ratio 13. 4 % 10.0- 14.5 Automated blood platelet count (count/volume) 196 10*3/uL 130-400 Automated blood platelet mean volume measurement 10.0 [foz_us] 7.4-10.4 Automated blood neutrophils/100 leukocytes 71 % 42-75 Automated blood lymphocytes/100 leukocytes 20 % 12-44 Blood monocytes/100 leukocytes 7 % 0-12 Automated blood eosinophils/100 leukocytes 1 % 0-10 Automated blood basophils/100 leukocytes 1 % 0-10 Blood neutrophils automated count (number/volume) 6.8 10*3 1.8-7.8 Blood lymphocytes automated count (number/volume) 1.9 10*3 1.0-4.0 Blood monocytes automated count (number/volume) 0. 7 10*3 0.0-1.0 Automated eosinophil count 0.1 10*3/uL 0 .0-0.3 Automated blood basophil count (count/volume) 0.1 10*3/uL 0.0-0.1 Comprehensive metabolic panel - 02/23/19 13:00 Serum or plasma sodium measurement (moles/volume) 135 mmol/L 135-145 Serum or plasma potassium measurement (moles/volume) 4.4 mmol/L 3.6-5.0 Serum or plasma chloride measurement (moles/volume) 103 mmol/L 98-107 Carbon dioxide 23 mmol/L 21-32 Serum or plasma anion gap determination (moles/volume) 9 mmol/L 5-14 Serum or plasma urea nitrogen measurement (mass/volume ) 21 mg/dL 7-18 Serum or plasma creatinine measurement (mass/volume) 1.19 mg/dL 0.60-1.30 Serum or plasma urea nitrogen/creatinine mass ratio 18 NRG Serum or plasma creatinine measurement w ith calculation of estimated glomerular filtration rate 45 NRG Serum or plasma glucose measurement (mass/volume) 110 mg/dL 70-105 Serum or plasma calcium measurement (mass/volume) 8.6 mg/dL 8.5-10.1 Serum or plasma total bilirubin measurement (mass/volu me) 0.5 mg/dL 0.1-1.0 Serum or plasma alkaline phosphatase dio surement (enzymatic activity/volume) 141 U/L 40-136 Serum or plasma aspartate aminotransfera se measurement (enzymatic activity/volume) 21 U/L 5-34 Serum or plasma alanine aminotransferase measurement (enzymatic activity/volume) 17 U/L 0-55 Serum or plasma protein measurement (mass/volume) 7.1 g/dL 6.4-8.2 Serum or plasma albumin measurement (mass/volume) 4.0 g/dL 3.2-4.5 CALCIUM CORRECTED 8.6 mg/dL 8.5-10.1 Magnesium - 02/23/19 13:00 Magnesium 1.4 mg/dL 1.6-2.4 PT panel in platelet poor plasma by coag ulation assay - 02/23/19 13:00 Prothrombin time (PT) in platelet poor plasma by coagu lation assay 24.6 s 12.2-14.7 INR in platelet poor plasma or blood by coagulation as say 2.1 0.8-1.4 Activated partial thromboplastin time (a PTT) in platelet poor plasma bycoagulation assay - 02/23/19 13:00 Activated partial thromboplastin time (a PTT) in platelet poor plasma bycoagulation assay 41 s 24-35 Myoglobin, serum - 02/23/19 13:00 Myoglobin, serum 110.0 ng/mL 10.0-92.0 Serum or plasma troponin i.cardiac measu rement (mass/volume) - 02/23/19 13:00 Serum or plasma troponin i.cardiac measurement (mass/v olume) < ng/mL <0.028 Lipase - 02/23/19 13:00 Lipase 22 U/L 8-78 Serum or plasma thyrotropin measurement by detection limit <=0.05 miu/l (units/volume) - 02/23/19 13:00 Serum or plasma thyrotropin measurement by detection limit <=0.05 miu/l (units/volume) 2.55 u[iU]/mL 0.35-4.94 [id number] - 02/23/19 13:00 [id number] 0.73 ng/mL 0.80-2.00 Serum or plasma C reactive protein measu rement (mass/volume) - 02/23/19 13:00 Serum or plasma C reactive protein measurement (mass/v olume) 0.94 mg/dL 0.00-0.50 Erythrocyte sedimentation rate by keeley gren method - 02/23/19 13:00 Erythrocyte sedimentation rate by westergren method 24 mm 0- 30 Capillary blood glucose measurement by g lucometer (mass/volume) - 02/25/19 20:49 Capillary blood glucose measurement by glucometer (mas s/volume) 80 mg/dL 70-110 Automated blood complete blood count (he mogram) panel - 02/26/19 04:09 Blood leukocytes automated count (number/volume) 6.7 10*3/uL 4.3-11.0 Blood erythrocytes automated count (number/volume) 3.66 10*6/uL 4.35-5.85 Venous blood hemoglobin measurement (mass/volume) 10.6 g/dL 11.5-16.0 Blood hematocrit (volume fraction) 32 % 35-52 Automated erythrocyte mean corpuscular volume 87 [ foz_us] 80-99 Automated erythrocyte mean corpuscular h emoglobin (mass per erythrocyte) 29 pg 25-34 Automated erythrocyte mean corpuscular h emoglobin concentration measurement (mass/volume) 33 g/dL 32-36 Automated erythrocyte distribution width ratio 13. 5 % 10.0- 14.5 Automated blood platelet count (count/volume) 158 10*3/uL 130-400 Automated blood platelet mean volume measurement 9.9 [foz_us] 7.4-10.4 Whole blood basic metabolic panel - 02/07 03/27 04:09 Serum or plasma sodium measurement (moles/volume) 135 mmol/L 135-145 Serum or plasma potassium measurement (moles/volume) 4.4 mmol/L 3.6-5.0 Serum or plasma chloride measurement (moles/volume) 107 mmol/L 98-107 Carbon dioxide 18 mmol/L 21-32 Serum or plasma anion gap determination (moles/volume) 10 mmol/L 5-14 Serum or plasma urea nitrogen measurement (mass/volume ) 17 mg/dL 7-18 Serum or plasma creatinine measurement (mass/volume) 1.07 mg/dL 0.60-1.30 Serum or plasma urea nitrogen/creatinine mass ratio 16 NRG Serum or plasma creatinine measurement w ith calculation of estimated glomerular filtration rate 51 NRG Serum or plasma glucose measurement (mass/volume) 159 mg/dL 70-105 Serum or plasma calcium measurement (mass/volume) 8.2 mg/dL 8.5-10.1 Capillary blood glucose measurement by g lucometer (mass/volume) - 02/26/19 12:12 Capillary blood glucose measurement by glucometer (mas s/volume) 132 mg/dL 70-110 Complete blood count (CBC) with automate d white blood cell (WBC) differential - 05/31/19 19:08 Blood leukocytes automated count (number/volume) 8.0 10*3/uL 4.3-11.0 Blood erythrocytes automated count (number/volume) 4.66 10*6/uL 4.35-5.85 Venous blood hemoglobin measurement (mass/volume) 13.4 g/dL 11.5-16.0 Blood hematocrit (volume fraction) 39 % 35-52 Automated erythrocyte mean corpuscular volume 84 [ foz_us] 80-99 Automated erythrocyte mean corpuscular h emoglobin (mass per erythrocyte) 29 pg 25-34 Automated erythrocyte mean corpuscular h emoglobin concentration measurement (mass/volume) 34 g/dL 32-36 Automated erythrocyte distribution width ratio 13. 7 % 10.0- 14.5 Automated blood platelet count (count/volume) 174 10*3/uL 130-400 Automated blood platelet mean volume measurement 9.8 [foz_us] 7.4-10.4 Automated blood neutrophils/100 leukocytes 72 % 42-75 Automated blood lymphocytes/100 leukocytes 20 % 12-44 Blood monocytes/100 leukocytes 7 % 0-12 Automated blood eosinophils/100 leukocytes 1 % 0-10 Automated blood basophils/100 leukocytes 1 % 0-10 Blood neutrophils automated count (number/volume) 5.8 10*3 1.8-7.8 Blood lymphocytes automated count (number/volume) 1.6 10*3 1.0-4.0 Blood monocytes automated count (number/volume) 0. 5 10*3 0.0-1.0 Automated eosinophil count 0.1 10*3/uL 0 .0-0.3 Automated blood basophil count (count/volume) 0.0 10*3/uL 0.0-0.1 Comprehensive metabolic panel - 05/31/19 19:08 Serum or plasma sodium measurement (moles/volume) 137 mmol/L 135-145 Serum or plasma potassium measurement (moles/volume) 4.5 mmol/L 3.6-5.0 Serum or plasma chloride measurement (moles/volume) 101 mmol/L 98-107 Carbon dioxide 25 mmol/L 21-32 Serum or plasma anion gap determination (moles/volume) 11 mmol/L 5-14 Serum or plasma urea nitrogen measurement (mass/volume ) 24 mg/dL 7-18 Serum or plasma creatinine measurement (mass/volume) 1.17 mg/dL 0.60-1.30 Serum or plasma urea nitrogen/creatinine mass ratio 21 NRG Serum or plasma creatinine measurement w ith calculation of estimated glomerular filtration rate 46 NRG Serum or plasma glucose measurement (mass/volume) 139 mg/dL 70-105 Serum or plasma calcium measurement (mass/volume) 9.6 mg/dL 8.5-10.1 Serum or plasma total bilirubin measurement (mass/volu me) 0.4 mg/dL 0.1-1.0 Serum or plasma alkaline phosphatase dio surement (enzymatic activity/volume) 137 U/L 40-136 Serum or plasma aspartate aminotransfera se measurement (enzymatic activity/volume) 21 U/L 5-34 Serum or plasma alanine aminotransferase measurement (enzymatic activity/volume) 22 U/L 0-55 Serum or plasma protein measurement (mass/volume) 7.5 g/dL 6.4-8.2 Serum or plasma albumin measurement (mass/volume) 4.2 g/dL 3.2-4.5 CALCIUM CORRECTED 9.4 mg/dL 8.5-10.1 Magnesium - 05/31/19 19:08 Magnesium 1.2 mg/dL 1.6-2.4 Serum or plasma creatine kinase measurem ent (enzymatic activity/volume) - 05/31/19 19:08 Serum or plasma creatine kinase measurem ent (enzymatic activity/volume) 36 U/L 29-168 PT panel in platelet poor plasma by coag ulation assay - 05/31/19 19:08 Prothrombin time (PT) in platelet poor plasma by coagu lation assay 13.9 s 12.2-14.7 INR in platelet poor plasma or blood by coagulation as say 1.0 0.8-1.4 Activated partial thromboplastin time (a PTT) in platelet poor plasma bycoagulation assay - 05/31/19 19:08 Activated partial thromboplastin time (a PTT) in platelet poor plasma bycoagulation assay 30 s 24-35 Serum or plasma lithium measurement (mol es/volume) - 05/31/19 19:08 BNP PT 38.6 pg/mL <100.0 Serum or plasma creatine kinase MB measu rement (enzymatic activity/volume) - 05/31/19 19:08 Serum or plasma creatine kinase MB measu rement (enzymatic activity/volume) 1.1 ng/mL <6.6 Serum or plasma troponin i.cardiac measu rement (mass/volume) - 05/31/19 19:08 Serum or plasma troponin i.cardiac measurement (mass/v olume) < ng/mL <0.028 Myoglobin, serum - 05/31/19 19:08 Myoglobin, serum 16.3 ng/mL 10.0-92.0 Serum or plasma thyrotropin measurement by detection limit <=0.05 miu/l (units/volume) - 05/31/19 19:08 Serum or plasma thyrotropin measurement by detection limit <=0.05 miu/l (units/volume) 3.28 u[iU]/mL 0.35-4.94 Influenza virus A and B antigen detectio n - 05/31/19 19:25 FLU RESULT NEGATIVE FOR INFLUENZA A AND B ANTIGENS BY IA NRG Encounters ACCT No. Visit Date/Time Discharge Status Pt. Type Provider Facility Loc./Unit Complaint [id number] 03/21/2016 13:06:00 Document Registration [id number] 03/16/2014 15:41:00 03/16/2014 23:59: 59 CLS Outpatient KATHY FONTANEZ APRN [facility] [id number] 11/16/2013 14:20:00 11/16/2013 23:59: 59 CLS Outpatient DAYANA ESTRADA APRN [id number] 09/26/2013 17:01:00 09/26/2013 23:59: 59 CLS Outpatient CARLITA WAITE MD [id number] 08/25/2013 15:02:00 08/25/2013 23:59: 59 CLS Outpatient MIGUEL LEW APRN [id number] 06/25/2013 13:11:00 06/25/2013 23:59: 59 CLS Outpatient IRAHETA DOBOONE K [id number] 05/26/2013 10:59:00 05/26/2013 23:59: 59 CLS Outpatient WOOD CALDERON APRN [id number] 11/18/2012 10:09:00 11/18/2012 23:59: 59 CLS Outpatient IRAHETA DOBOONE [id number] 05/24/2012 13:54:00 05/24/2012 23:59: 59 CLS Outpatient IRAHETA DOBOONE [id number] 05/10/2012 14:28:00 05/10/2012 23:59: 59 CLS Outpatient IRAHETA DOBOONE [id number] 04/27/2012 13:46:00 04/27/2012 23:59: 59 CLS Outpatient MYRTLE DOBOONE [id number] 02/25/2012 16:14:00 02/25/2012 23:59: 59 CLS Outpatient ERNESTO NINO PHD [id number] 02/18/2012 14:57:00 02/18/2012 23:59: 59 CLS Outpatient WOOD CALDERON APRN [id number] 12/24/2011 13:52:00 12/24/2011 23:59:5 9 CLS Outpatient KEN SPICERCHIQUITA [id number] 10/13/2012 08:44:00 Document Registration [id number] 09/07/2012 14:15:00 Document Registration [id number] 08/16/2012 14:07:00 Document Registration [id number] 06/23/2012 09:34:00 Document Registration [id number] 06/27/2019 11:20:00 06/27/2019 23:59:5 9 CLS Outpatient [facility] [id number] 02/14/2019 13:00:00 Document Registration [id number] 12/07/2017 10:40:00 Document Registration [id number] 12/31/2016 08:40:00 Document Registration [id number] 04/13/2016 20:05:00 Document Registration [id number] 06/21/2019 12:00:00 23:59:59 CLS Preadmit SANDRO GLASER FACWilder, SHAQUILLE TURCIOS CCDS [facility] CATH CM,S/P IMPLANTA TION OF AICD, [id number] 05/31/2019 18:58:00 21:20:00 DIS Outpatient ANDREW BINGHAM DO, V [facility] ER SOB;PACEMAKER GOING OFF [id number] 02/25/2019 14:48:00 13:36:00 DIS Outpatient SANDRO GLASER FACWilder, SHAQUILLE TURCIOS CC DS [facility] CATH CAD,ISCHEMI C CM,CAROTID ARTERIAL DISEASE,CKD [id number] 02/23/2019 12:50:00 16:20:00 DIS Outpatient KATINA GLASER, HAYLIE Patino [facility] ER SOA,PAIN IN ARM S [id number] 02/22/2019 07:20:00 23:59:59 CLS Outpatient BARRY REYES [facility] LAB PRE CATH TESTIN G [id number] 09/05/2018 15:35:00 12:10:00 DIS Inpatient DARREN GLASER, MART Rodriguez [facility] 4TH SEPSIS,SYNCOPE,FALL,DIARRHEA,HYPOTENTION [id number] 07/16/2018 07:51:00 12:22:00 DIS Emergency MANOHAR GLASER, STEVEN Vogel [facility] ER NAUSEA;CHEST PAIN;ABD P AIN;DIZZINESS [id number] 06/08/2017 21:42:00 16:44:00 DIS Inpatient BOONE IRAHETA DO, V [facility] 4TH SYNCOPE,DEHYDRATION,URI LIKELY VIRAL,HYPOTENSION [id number] 04/30/2017 14:43:00 018 23:59:59 CLS Outpatient BAIMA, BARRY L GENERAL WORKER [facility] RAD R10.31 RT GROIN PAIN [id number] 03/24/2017 07:44:00 018 11:25:00 DIS Outpatient SANDRO GLASER FACWilder, SHAQUILLE TURCIOS CC DS [facility] CATH CAD,ISCHEMI C CM [id number] 03/04/2017 15:30:00 017 23:59:59 CLS Outpatient BAIMA, BARRY L GENERAL WORKER [facility] LAB I25.10, N18.3, I25.5, E78.4 [id number] 02/24/2017 08:00:00 017 10:30:00 DIS Outpatient BAIMA, BARRY L GENERAL WORKER [facility] CATH CAD,CAROTID ART ERIAL DISEASE [id number] 02/16/2017 05:23:00 017 05:55:00 DIS Emergency MANOHAR GLASER, STEVEN Vogel [facility] ER GEN PAIN TOOTH PAIN [id number] 02/03/2017 07:24:00 017 23:59:59 CLS Outpatient BAIMA, BARRY L GENERAL WORKER [facility] CARD CAD [id number] 12/02/2016 08:30:00 017 23:59:59 CLS Preadmit BAIMA, BARRY L GENERAL WORKER [facility] CARD CAD [id number] 11/25/2016 13:12:00 017 23:59:59 CLS Outpatient BAIMA, BARRY L GENERAL WORKER [facility] RAD CAD [id number] 10/21/2016 00:45:00 017 15:00:00 DIS Inpatient CINDY THOMPSON MD [facility] 4TH UTI,ENCEPHALOPATHY,HYPO NATREMIA [id number] 10/07/2016 12:00:00 017 23:59:59 CLS Preadmit SANDRO GLASER FACSHAQUILLE Hdz FACP CCDS [facility] CARD R26.89 ELDER FRAGOSO [id number] 09/25/2016 23:10:00 017 11:15:00 DIS Inpatient CINDY THOMPSON MD [facility] 4TH SCHIZOPHRENIA,UTI,ALTER ED MENTAL STATUS [id number] 11/26/2015 06:48:00 016 08:11:00 DIS Emergency OTILIA DO, ANDREW K [facility] ER NAUSEA [id number] 06/20/2015 08:47:00 016 23:59:59 CLS Outpatient BARRY REYES [facility] RAD CAD,HTN,HLP [id number] 06/20/2015 10:53:00 016 13:55:00 DIS Emergency SORAYA MARTINS [facility] ER HIGH BLOOD SUGAR [id number] 06/30/2014 16:07:00 015 23:59:59 CLS Outpatient SANDRO GLASER FACCSHAQUILLE FACP CC DS [facility] LAB CAD,ISCHEMI C HEART DISEASE,CAROTID ARTERIAL DISEAS [id number] 09/05/2013 12:06:00 014 12:38:00 DIS Inpatient CARLITA WAITE MD [facility] ICU SYNCOPE HYPERKALEMIA RE NAL INSUFFICIENCY [id number] 09/24/2012 11:31:00 013 14:53:00 DIS Emergency MAKENNA ODEN MD [facility] ER FELL L BACK PAIN [id number] 09/18/2012 11:29:00 013 23:59:59 CLS Outpatient [id number] 08/16/2012 17:15:00 013 14:53:00 DIS Inpatient CARLITA WAITE MD [facility] CSD SYNCOPYE,CP,HYPOMAGNESE NICOLASA [id number] 07/20/2012 18:04:00 013 23:59:59 CLS Outpatient [id number] 05/14/2014 18:01:00 Document Registration [id number] 01/14/2012 19:48:00 Document Registration [id number] 05/06/2011 03:25:00 Document Registration [id number] 04/17/2011 11:00:00 Document Registration [id number] 01/29/2011 09:53:00 Document Registration [id number] 01/28/2011 14:09:00 Document Registration [id number] 01/21/2011 15:15:00 Document Registration [id number] 01/16/2011 10:30:00 Document Registration [id number] 12/02/2010 13:54:00 Document Registration [id number] 09/18/2010 09:32:00 Document Registration [id number] 06/05/2010 19:49:00 Document Registration [id number] 05/31/2010 11:02:00 Document Registration [id number] 05/23/2010 09:27:00 Document Registration [id number] 05/20/2010 10:00:00 Document Registration [id number] 05/18/2010 09:49:00 Document Registration [id number] 05/16/2010 14:29:00 Document Registration [id number] 05/07/2010 15:08:00 Document Registration [id number] 04/25/2010 07:50:00 Document Registration [id number] 03/11/2010 16:05:00 Document Registration [id number] 02/07/2010 10:51:00 Document Registration [id number] 01/01/2017 08:40:00 Document Registration [id number] 03/23/2016 07:05:00 Document Registration
[2019-07-05] MEDS ORDERED: ceFAZolin 1,000 MG/SWFI 10 ML IV PUSH IV ONE ×2 (08:30)
[2019-07-05 08:51] LABS: HEMOGLOBIN 11.7 G/DL (11.5-16.0); MEAN PLATELET VOLUME 9.9 FL (7.4-10.4); RED CELL DISTRIBUTION WIDTH 13.7 % (10.0-14.5); WHITE BLOOD COUNT 7.9 10^3/uL (4.3-11.0)
[2019-07-05 08:57] LABS: INR 1.7 (0.8-1.4)
[2019-07-05] MEDS ORDERED: INSU100I14 SQ (09:03)
[2019-07-05] MEDS ORDERED: METF-397 PO (09:03)
[2019-07-05 09:11] LABS: ALBUMIN 3.6 GM/DL (3.2-4.5); BILIRUBIN,TOTAL 0.3 MG/DL (0.1-1.0); CALCIUM 8.3 MG/DL (8.5-10.1); CREATININE SERUM 1.27 MG/DL (0.60-1.30); POTASSIUM 4.7 MMOL/L (3.6-5.0); TOTAL PROTEIN 6.5 GM/DL (6.4-8.2)
[2019-07-05] MEDS ORDERED: MIDAZOLAM 5 MG/5 ML (VERSED) VIAL ONE ×2 (11:42→12:44)
[2019-07-05] MEDS ORDERED: fentaNYL INJECTION 100 MCG/2 ML AMP ONE ×2 (11:42→12:44)
--- NOTE | 2019-07-05 12:28 | Cardiac Procedure Note-CS/ASA ---
Pre-Procedure Note Pre-Op Procedure Note H&P Reviewed The H&P was reviewed, patient examined and no changes noted. Date H&P Reviewed: Jul 05, 2019 Time H&P Reviewed: 12:27 Conscious Sedation Pre-Proced Time 12:27 ASA Score 3 For ASA 3 and 4: Consider anesthesia and medical clearance. Also, for patients with a history of failed moderate sedation consider anesthesia. Airway Lungs Heart ASA score ASA 1: a normal healthy patient ASA 2: a patient with a mild systemic disease (mid diabetes, controlled hypertension, obesity ASA 3: a patient with a severe systemic disease that limits activity (angina, COPD, prior Myocardial infarction) ASA 4: a patient with an incapacitating disease that is a constant threat to life (CHF, renal failure) ASA 5: a moribund patient not expected to survive 24 hrs. (ruptured aneurysm) ASA 6: a declared brain- patient whose organs are being harvested. For emergent operations, add the letter E after the classification Mallampati Classification Grade 2 Sedation Plan Analgesia, Amnesia, Plan communicated to team members, Discussed options with patient/fam, Discussed risks with patient/fam The patient is an appropriate candidate to undergo the planned procedure, sedation, and anesthesia. The patient immediately re-assessed prior to indication. TRAY VARMA MD FACP FAC CCDS Jul 05, 2019 12:27
[2019-07-05] MEDS ORDERED: PATIENT MAY USE OWN MEDS, ALL PO SCH (13:30)
[2019-07-05] MEDS ORDERED: CEFU500T63 PO (13:33)
--- NOTE | 2019-07-05 13:34 | Discharge Inst-Cardiology ---
Discharge Inst-Cardiac Discharge Medications New Medications: Cefuroxime Axetil (Cefuroxime) 500 Mg Tablet 500 MG PO BID for 5 Days, #10 TAB 0 Refills Continued Medications: Acetaminophen (Acetaminophen) 500 Mg Tablet 1000 MG PO Q6H PRN for PAIN-MILD, TAB TAKES 2 (500 MG) TABLETS Atorvastatin Calcium (Atorvastatin Calcium) 40 Mg Tablet 40 MG PO HS, TAB Carvedilol (Coreg) 12.5 Mg Tablet 12.5 MG PO BID, TAB LAST FILLED 12-24-2018 #60 / 30 DAY SUPPLY Clopidogrel Bisulfate (Plavix) 75 Mg Tablet 75 MG PO DAILY for 90 Days, #90 TAB 3 Refills Dicyclomine HCl (Dicyclomine HCl) 20 Mg Tablet 20 MG PO BID PRN for ABDOMINAL CRAMPING, TAB Digoxin (Digoxin) 125 Mcg Tablet 125 MCG PO DAILY, TAB Enalapril Maleate (Enalapril Maleate) 20 Mg Tablet 20 MG PO DAILY, TAB Insulin Aspart (Novolog Flexpen) 300 Units/3 Ml Solution 10 UNITS SQ bid ac, EA Insulin Detemir (Levemir Flextouch) 100 Unit/1 Ml Insuln.pen 20 UNIT SQ BID, EA Lurasidone HCl (Latuda) 80 Mg Tablet 80 MG PO HS, TAB Metformin HCl (Metformin HCl) 500 Mg Tablet 500 MG PO BID, TAB Rivaroxaban (Xarelto) 15 Mg Tablet 15 MG PO DAILY, TAB Patient Instructions Patient Instructions: Hold Xarelto today. Resume tomorrow TRAY VARMA MD FACP FAC CCDS Jul 05, 2019 13:34
--- NOTE | 2019-07-05 15:42 | NUR ---
AT 1400 DALTON GAMBOA UPON ARRIVAL NOTICED HEMATOMA FORMING. DALTON GAMBOA HOLDING PRESSURE, PHONED DR. VARMA AT 1411 AND HE IS TO COME LOOK AT SITE, ARRIVED AT 1433 AND INFORMED THAT PATIENT WOULD HAVE VERY LARGE BRUISING BUT MAY GO HOME AND TO HOLD OFF XARELTO FOR 3 DAYS (TODAY, TOMORROW AND NEXT DAY TO RESTART ON JULY 08, 2019 AND PLAVIX TO BE HELD TODAY AND MAY RESTART THAT TOMORROW 07/06/19) AT 1455 DALTON GAMBOA REDRESSED SITE WITH STERILE PROCEDURE AND THIS RN MARKED EDGES OF HEMATOMA AND PLACED ICE PACK ON SITE. WILL CONTINUE TO MONITOR PATIENT. BESIDE REPORT GIVEN TO DALTON HENDERSON AT [id number].
--- NOTE | 2019-07-05 18:14 | OPERATIVE REPORT ---
DATE OF SERVICE: 07/05/2019 PREOPERATIVE DIAGNOSIS: ICD at end of life. POSTOPERATIVE DIAGNOSIS: ICD at end of life. PROCEDURE: Pulse generator change. INDICATIONS: The patient is a 68-year-old lady with coronary artery disease and a history of ischemic cardiomyopathy and placement of an ICD that has now reached elective replacement indicator. Informed consent was obtained for pulse generator change. DESCRIPTION OF PROCEDURE: She was brought to the cardiac catheterization laboratory for the procedure. The left prepectoral area was prepared and draped in the usual sterile fashion. The used sharp and blunt dissection to open the pocket and the device was removed from the pocket. The leads were detached. The leads were found to be functioning normally. They were attached to a new device. The device is [employer], model [id number] with serial #[id number]. The device and the leads were placed back into the pocket after the pocket had been thoroughly irrigated with antibiotic solution and good hemostasis was assured. The pocket was closed in 2 layers using 3-0 Vicryl. She tolerated the procedure well. Job ID: [id number] DocumentID: [id number] Dictated Date: 07/05/2019 13:43:45 Can Tender Date: 07/05/2019 18:14:32 Dictated By: TRAY VARMA MD, MA, FACP, FACC,
== END 2019-07-05 17:25 | disposition home or self-care (01) ==
LOC: CATH 08:01
PROVIDERS: ATTEND Internal Medicine Cardiovascular Disease
DX: Z45.02 Encounter for adjustment and management of automatic implantable cardiac defibrillator (principal); I48.0 Paroxysmal atrial fibrillation; I25.5 Ischemic cardiomyopathy; N18.3 Chronic kidney disease, stage 3 (moderate); I13.10 Hypertensive heart and chronic kidney disease without heart failure, with stage 1 through stage 4 chronic kidney disease, or unspecified chronic kidney disease; I25.10 Atherosclerotic heart disease of native coronary artery without angina pectoris; I77.9 Disorder of arteries and arterioles, unspecified; E11.22 Type 2 diabetes mellitus with diabetic chronic kidney disease; E78.5 Hyperlipidemia, unspecified; F32.9 Major depressive disorder, single episode, unspecified; Z79.899 Other long term (current) drug therapy; Z79.01 Long term (current) use of anticoagulants; Z91.018 Allergy to other foods; Z91.048 Other nonmedicinal substance allergy status; Z79.84 Long term (current) use of oral hypoglycemic drugs; Z79.02 Long term (current) use of antithrombotics/antiplatelets; Z90.710 Acquired absence of both cervix and uterus; Z95.0 Presence of cardiac pacemaker; Z90.49 Acquired absence of other specified parts of digestive tract
CPT/HCPCS: 33228; 33263; 36415; 80053; 80162; 85027; 85610; 85730; 87081

== ENCOUNTER 2021-02-23 13:02 | Emergency (ER) | payer MEDICARE ==
[~2021-02-23] VITALS: Ht 162.6 cm; Wt 77.0 kg
[~2021-02-23 13:02] MED LIST changes: -ACET-2715 PO; +ACET-3075 PO; +ASPI-1238 PO; -ASPI-983 PO; +CEFU500T63 PO; -CIPR500T4 PO; +CIPR500T5 PO; +DICY20TA PO; -DICY20TA10 PO; +ENAL20TA16 PO; +METF-865 PO; -METF500T19 PO; +MULT-567 PO; -MULT1TAB69 PO
--- NOTE | 2021-02-23 13:13 | ED General ---
General Chief Complaint: Trauma-Non Activation Stated Complaint: FALL Source of Information: Patient Exam Limitations: No Limitations History of Present Illness Date Seen by Provider: Feb 23, 2021 Time Seen by Provider: 13:12 Initial Comments To ER with reports of a fall at [facility]. This was witnessed she landed on her left side. She denies hitting her head but has a little headache. Pain to the left chest when she takes a deep breath. Timing/Duration: 1/2 Hour Severity: Moderate Associated Systoms: Denies Symptoms Allergies and Home Medications Allergies Coded Allergies: Bleach (Sodium Hypochlorite) (Verified Allergy, Unknown, 09/25/16) corn (Unverified Allergy, Unknown, 02/07/10) perfume (Verified Allergy, Unknown, 09/25/16) Patient Home Medication List Home Medication List Reviewed: Yes Acetaminophen (Acetaminophen) 500 Mg Tablet, 1,000 MG PO Q6H PRN for PAIN-MILD, (Reported) Entered as Reported by: SABIHA OLIVAS on 10/21/16 0942 Atorvastatin Calcium (Atorvastatin Calcium) 40 Mg Tablet, 40 MG PO HS, (Reported) Entered as Reported by: GERARDO RUANO on 06/09/17 0823 Carvedilol (Coreg) 12.5 Mg Tablet, 12.5 MG PO BID, (Reported) Entered as Reported by: LEO GUZMAN on 02/22/19 0809 Cefuroxime Axetil (Cefuroxime) 500 Mg Tablet, 500 MG PO BID Prescribed by: TRAY VARMA on 07/05/19 1333 Clopidogrel Bisulfate (Plavix) 75 Mg Tablet, 75 MG PO DAILY Prescribed by: TRAY VARMA on 02/25/19 1929 Dicyclomine HCl (Dicyclomine HCl) 20 Mg Tablet, 20 MG PO BID PRN for ABDOMINAL CRAMPING, (Reported) Entered as Reported by: LEO GUZMAN on 02/22/19 0820 Digoxin (Digoxin) 125 Mcg Tablet, 125 MCG PO DAILY, (Reported) Entered as Reported by: GERARDO RUANO on 09/26/16 0929 Enalapril Maleate (Enalapril Maleate) 20 Mg Tablet, 20 MG PO DAILY, (Reported) Entered as Reported by: LEO GUZMAN on 02/22/19 0809 Insulin Aspart (Novolog Flexpen) 300 Units/3 Ml Solution, 10 UNITS SQ bid ac, ( Reported) Entered as Reported by: COOPER HICKS on 07/05/19 0903 Insulin Detemir (Levemir Flextouch) 100 Unit/1 Ml Insuln.pen, 20 UNIT SQ BID, (Reported) Entered as Reported by: GERARDO RUANO on 09/06/18 1242 Lurasidone HCl (Latuda) 80 Mg Tablet, 80 MG PO HS, (Reported) Entered as Reported by: GERARDO RUANO on 02/24/17 0951 Metformin HCl (Metformin HCl) 500 Mg Tablet, 500 MG PO BID, (Reported) Entered as Reported by: COOPER HICKS on 07/05/19 0903 Rivaroxaban (Xarelto) 15 Mg Tablet, 15 MG PO DAILY, (Reported) Entered as Reported by: LEO GUZMAN on 02/22/19 0820 Review of Systems Review of Systems Constitutional: see HPI EENTM: see HPI Respiratory: no symptoms reported Cardiovascular: no symptoms reported Genitourinary: no symptoms reported Musculoskeletal: no symptoms reported Skin: no symptoms reported Psychiatric/Neurological: No Symptoms Reported Hematologic/Lymphatic: No Symptoms Reported Past Vfnxhcw-Hwiqww-Aptpvw Hx Immunizations Up To Date Tetanus Booster (TDap): Unknown PED Vaccines UTD: No Seasonal Allergies Seasonal Allergies: No Past Medical History Surgeries: Yes (right carotid endarterectomy, colonoscopy, valve replacement) CABG, Coronary Stent, Defibrillator, Gallbladder, Hysterectomy, Pacemaker Respiratory: No Currently Using CPAP: No Currently Using BIPAP: No Cardiac: Yes (CARDIAC CATHS-STENTS X3; 2 VESSEL CABG; CAROTID ENDARTERECTOMY;PACER/DEFIB) Atrial Fibrillation, Cardiomyopathy, Coronary Artery Disease, High Cholesterol, Hypertension, Irregular Heartbeat, Peripheral Vascular Neurological: Yes (CVA SIDE WEAKNESS RESOLVED, MILD RESIDUAL SPEECH IMPAIRMENT) Stroke Reproductive Disorders: No 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 Genitourinary: Yes (NO DIALYSIS) Renal Failure, UTI-Chronic Gastrointestinal: Yes Hiatal Hernia, Gall Bladder Disease Musculoskeletal: Yes Arthritis Endocrine: Yes Diabetes, Insulin dep, Hypothyroidsim HEENT: Yes Cataract, Macular Degeneration Loss of Vision: Denies Hearing Impairment: Denies Cancer: No Did You Recieve Any Treatments: No Psychosocial: Yes Anxiety, Schizophrenia, Depression Integumentary: No Blood Disorders: No Adverse Reaction/Blood Tranf: No Family Medical History Family history: Diabetes mellitus 19 MOTHER Family history: Hypertension 19 FATHER 19 MOTHER Psychotic disorder G8 BROTHER (MENTAL HEALTH PROBLEMS) No Pertinent Family Hx PSH: -RIGHT CAROTID ENDARTERECTOMY -MULTIPLE CARDIAC CATHS WITH 2 VESSEL CABG IN 2004 AND STENTS X 3--LAST CATH 02/25/19-STENT TO RCA -PACEMAKER/DEFIBRILLATOR PLACED 04/30/10 FOR ISCHEMIC CARDIOMYOPATHY WITH EF < 20% AND PAROXYSMAL ATRIAL FIBRILLATION/FLUTTER --ST. JAK'S DEVICE. -CHOLECYSTECTOMY -HYSTERECTOMY Physical Exam Vital Signs Vital Signs - First Documented Capillary Refill : Height, Weight, BMI Height: 5'4.00" Weight: 191lbs. 0.0oz. 86.094095sn; 28.70 BMI Method:Stated General Appearance: No Apparent Distress, WD/WN, Other (Left chest wall and abdomen is tender to palpation) Eyes: Bilateral Eye Normal Inspection, Bilateral Eye PERRL, Bilateral Eye EOMI Neck: Full Range of Motion, Normal Inspection Respiratory: No Accessory Muscle Use, No Respiratory Distress Cardiovascular: Regular Rate, Rhythm, No Murmur Gastrointestinal: Normal Bowel Sounds, Non Tender, Soft Extremity: Normal Capillary Refill, Normal Inspection Neurologic/Psychiatric: Alert, Oriented x3, Other (Flat affect) Skin: Normal Color, Warm/Dry Progress/Results/Core Measures Suspected Sepsis SIRS Temperature: Pulse: Respiratory Rate: Blood Pressure / Mean: Results/Orders My Orders Orders - FREDRICK TAYLOR APRN Hydrocodone/Apap 5/325 Tablet (Lortab 5 (02/23/21 13:15) Ct Head/Cervical Spine Wo (02/23/21 13:10) Ct Chest/Abdomen/Pelvis Wo (02/23/21 13:10) Medications Given in ED Current Medications Medications Dose Ordered Sig/Roxana Route Start Time Stop Time Status Last Admin Dose Admin Acetaminophen/ Hydrocodone Bitart 1 ea ONCE ONCE PO 02/23/21 13:15 02/23/21 13:16 DC 02/23/21 13:34 1 EA Vital Signs/I&O 02/23/21 02/23/21 13:03 13:03 Temp 36.6 36.6 Pulse 70 70 Resp 20 20 B/P (MAP) 207/96 (133) 207/96 (133) Pulse Ox 100 100 O2 Delivery Room Air Room Air Capillary Refill : Departure Communication (Admissions) NAME: REY HEARN MED REC#: [id number] PT STATUS: REG ER : 1950 PHYSICIAN: FREDRICK TAYLOR APRN ADMIT DATE: 02/23/21/ER Draft Date of Exam:02/23/21 CT HEAD/CERVICAL SPINE WO PROCEDURE: CT head and CT cervical spine without contrast. TECHNIQUE: Multiple contiguous axial images were obtained through the brain and cervical spine without the use of intravenous contrast. Sagittal and coronal reformations through the cervical spine were then performed. Auto Exposure Controls were utilized during the CT exam to meet ALARA standards for radiation dose reduction. INDICATION: Fall with head and neck injury. Correlation is made with prior CT from 09/05/2018. CT HEAD: Ventricles and sulci appear stable in appearance. There is some periventricular low attenuation consistent with chronic microvascular ischemia. No sulcal effacement or midline shift is identified. No acute intra-axial or extra-axial hemorrhage is detected. Cisterns are patent. Visualized paranasal sinuses are clear. IMPRESSION: Changes of chronic microvascular ischemia. No acute intracranial process is detected. CT cervical spine: Curvature of the cervical spine is normal. There is mild anterolisthesis of C4 on C5. Significant degenerative disc disease is identified at all levels with disc space narrowing and marginal spurring. There is vacuum disc at multiple levels. There is multilevel facet arthropathy as well. No fractures are identified. Prevertebral tissues are within normal limits. Odontoid appears intact. IMPRESSION: Severe multilevel cervical spondylosis and facet arthropathy. No acute fractures identified. Dictated on workstation # [id number] Dict: 02/23/21 1331 Trans: 02/23/21 1340 [facility] [id number] Interpreted by: SULY MEDNOZA MD Electronically signed by: NAME: REY HEARN [facility] REC#: [id number] PT STATUS: REG ER : 1950 PHYSICIAN: FREDRICK TAYLOR APRN ADMIT DATE: 02/23/21/ER Draft Date of Exam:02/23/21 CT CHEST/ABDOMEN/PELVIS WO PROCEDURE: CT chest, abdomen, and pelvis without contrast. TECHNIQUE: Multiple contiguous axial images were obtained through the chest, abdomen, and pelvis without the use of intravenous contrast. Auto Exposure Controls were utilized during the CT exam to meet ALARA standards for radiation dose reduction. Indication: Left-sided chest and abdominal pain after recent fall. Comparison: Chest CT 05/06/2011. Discussion: CHEST: No pneumothorax. No consolidation or suspicious pulmonary lesion. Normal heart size. No pleural or pericardial fluid. Median sternotomy is present. No adenopathy. Left-sided pacemaker is noted. No acute fracture identified. Abdomen/pelvis: Small ventral hernia just below the xiphoid containing fat. The gallbladder surgically absent. The liver, stomach, pancreas, spleen, and adrenal glands are unremarkable. Probable cyst noted within the right kidney. No renal stone or hydronephrosis. The aorta is normal in caliber. Mild constipation. The bladder is distended. The uterus appears to be surgically absent. No obstruction, pneumatosis, pneumoperitoneum. Mild induration along the left body wall suggesting blunt trauma. No soft tissue gas. Advanced degenerative disease noted within the lumbar spine. No acute fracture. Advanced degenerative disease noted within the right hip with ulhj-wy-cowm contact. Impression: 1. No acute abnormality identified within the chest. No rib fracture. 2. Mild induration along the left abdominal wall suggesting blunt trauma. No underlying abnormality identified within the abdomen or pelvis otherwise. Dictated on workstation # [id number] Dict: 02/23/21 1335 Trans: 02/23/21 1342 [facility] [id number] Interpreted by: CARLITA MCGILL MD Electronically signed by: Impression Primary Impression: Contusion Additional Impression: Fall Disposition: 01 HOME, SELF-CARE Condition: Stable Departure-Patient Inst. Decision time for Depature: 13:45 Referrals: [facility] (PCP) Primary Care Physician WOOD CALDERON (Family) Primary Care Physician Patient Instructions: Preventing Falls ED FREDRICK TAYLOR ACCESS COORDINATOR Feb 23, 2021 13:13
[2021-02-23] MEDS ORDERED: HYDROcodone/APAP 5 MG/325 MG (LORTAB) TAB PO ONE (13:15)
--- NOTE | 2021-02-23 13:42 | Diagnostic Imaging Report ---
PROCEDURE: CT head and CT cervical spine without contrast. TECHNIQUE: Multiple contiguous axial images were obtained through the brain and cervical spine without the use of intravenous contrast. Sagittal and coronal reformations through the cervical spine were then performed. Auto Exposure Controls were utilized during the CT exam to meet ALARA standards for radiation dose reduction. INDICATION: Fall with head and neck injury. Correlation is made with prior CT from 09/05/2018. CT HEAD: Ventricles and sulci appear stable in appearance. There is some periventricular low attenuation consistent with chronic microvascular ischemia. No sulcal effacement or midline shift is identified. No acute intra-axial or extra-axial hemorrhage is detected. Cisterns are patent. Visualized paranasal sinuses are clear. IMPRESSION: Changes of chronic microvascular ischemia. No acute intracranial process is detected. CT cervical spine: Curvature of the cervical spine is normal. There is mild anterolisthesis of C4 on C5. Significant degenerative disc disease is identified at all levels with disc space narrowing and marginal spurring. There is vacuum disc at multiple levels. There is multilevel facet arthropathy as well. No fractures are identified. Prevertebral tissues are within normal limits. Odontoid appears intact. IMPRESSION: Severe multilevel cervical spondylosis and facet arthropathy. No acute fractures identified. Dictated by: Dictated on workstation # [id number]
--- NOTE | 2021-02-23 13:42 | Diagnostic Imaging Report ---
PROCEDURE: CT chest, abdomen, and pelvis without contrast. TECHNIQUE: Multiple contiguous axial images were obtained through the chest, abdomen, and pelvis without the use of intravenous contrast. Auto Exposure Controls were utilized during the CT exam to meet ALARA standards for radiation dose reduction. Indication: Left-sided chest and abdominal pain after recent fall. Comparison: Chest CT 05/06/2011. Discussion: CHEST: No pneumothorax. No consolidation or suspicious pulmonary lesion. Normal heart size. No pleural or pericardial fluid. Median sternotomy is present. No adenopathy. Left-sided pacemaker is noted. No acute fracture identified. Abdomen/pelvis: Small ventral hernia just below the xiphoid containing fat. The gallbladder surgically absent. The liver, stomach, pancreas, spleen, and adrenal glands are unremarkable. Probable cyst noted within the right kidney. No renal stone or hydronephrosis. The aorta is normal in caliber. Mild constipation. The bladder is distended. The uterus appears to be surgically absent. No obstruction, pneumatosis, pneumoperitoneum. Mild induration along the left body wall suggesting blunt trauma. No soft tissue gas. Advanced degenerative disease noted within the lumbar spine. No acute fracture. Advanced degenerative disease noted within the right hip with tyrm-lv-bffi contact. Impression: 1. No acute abnormality identified within the chest. No rib fracture. 2. Mild induration along the left abdominal wall suggesting blunt trauma. No underlying abnormality identified within the abdomen or pelvis otherwise. Dictated by: Dictated on workstation # [id number]
[2021-02-23 14:10] VITALS: BP 198/86
== END 2021-02-23 14:10 | disposition home or self-care (01) ==
LOC: EDUNIT# 13:02 → ER 13:04
DX: T14.8XXA Other injury of unspecified body region, initial encounter (principal); R51.9 Headache, unspecified; R07.1 Chest pain on breathing; R10.9 Unspecified abdominal pain; I12.9 Hypertensive chronic kidney disease with stage 1 through stage 4 chronic kidney disease, or unspecified chronic kidney disease; N18.9 Chronic kidney disease, unspecified; E11.22 Type 2 diabetes mellitus with diabetic chronic kidney disease; I48.91 Unspecified atrial fibrillation; I25.10 Atherosclerotic heart disease of native coronary artery without angina pectoris; E78.00 Pure hypercholesterolemia, unspecified; E03.9 Hypothyroidism, unspecified; F41.9 Anxiety disorder, unspecified; F32.9 Major depressive disorder, single episode, unspecified; F20.9 Schizophrenia, unspecified; Z86.73 Personal history of transient ischemic attack (TIA), and cerebral infarction without residual deficits; Z90.710 Acquired absence of both cervix and uterus; Z95.5 Presence of coronary angioplasty implant and graft; Z95.1 Presence of aortocoronary bypass graft; Z95.810 Presence of automatic (implantable) cardiac defibrillator; Z95.4 Presence of other heart-valve replacement; Z79.4 Long term (current) use of insulin; Z79.84 Long term (current) use of oral hypoglycemic drugs; Z79.01 Long term (current) use of anticoagulants; Z79.02 Long term (current) use of antithrombotics/antiplatelets; Z79.899 Other long term (current) drug therapy; W19.XXXA Unspecified fall, initial encounter; Y92.59 Other trade areas as the place of occurrence of the external cause
CPT/HCPCS: 70450; 71250; 72125; 74176

== ENCOUNTER 2021-08-27 21:04 | Emergency (ER) | payer MEDICARE ==
[~2021-08-27 21:04] MED LIST changes: -CANE1EAC26 MC; +CANE1EAC44 MC; +LURA40TA2 PO; -LURA40TA3 PO
[2021-08-27 21:25] LABS: EOSINOPHILS % (AUTO) 0 % (0-10); HEMOGLOBIN 11.9 g/dL (11.5-16.0)
[2021-08-27 21:27] LABS: BASOPHILS % (AUTO) 1 % (0-10); HEMATOCRIT 34 % (35-52); LYMPHOCYTES # (AUTO) 0.4 10^3/uL (1.0-4.0); LYMPHOCYTES % (AUTO) 7 % (12-44); MEAN CORPUSCULAR HEMOGLOBIN 30 pg (25-34); MEAN CORPUSCULAR HGB CONC 35 g/dL (32-36); MEAN CORPUSCULAR VOLUME 86 fL (80-99); MEAN PLATELET VOLUME 9.3 fL (9.0-12.2); MONOCYTES # (AUTO) 0.6 10^3/uL (0.0-1.0); MONOCYTES % (AUTO) 11 % (0-12); NEUTROPHILS # (AUTO) 4.9 10^3/uL (1.8-7.8); NEUTROPHILS % (AUTO) 81 % (42-75); PLATELET COUNT 132 10^3/uL (130-400)
--- NOTE | 2021-08-27 21:31 | ED General ---
General Chief Complaint: Cough/Cold/Flu Symptoms Stated Complaint: COUGH Source of Information: Patient Exam Limitations: No Limitations History of Present Illness Date Seen by Provider: Aug 27, 2021 Time Seen by Provider: : Allergies and Home Medications Allergies Coded Allergies: Bleach (Sodium Hypochlorite) (Verified Allergy, Unknown, 09/25/16) corn (Unverified Allergy, Unknown, 02/07/10) perfume (Verified Allergy, Unknown, 09/25/16) Patient Home Medication List Acetaminophen (Acetaminophen) 500 Mg Tablet, 1,000 MG PO Q6H PRN for PAIN-MILD, (Reported) Entered as Reported by: SABIHA OLIVAS on 10/21/16 0942 Atorvastatin Calcium (Atorvastatin Calcium) 40 Mg Tablet, 40 MG PO HS, (Reported) Entered as Reported by: GERARDO RUANO on 06/09/17 0823 Carvedilol (Coreg) 12.5 Mg Tablet, 12.5 MG PO BID, (Reported) Entered as Reported by: LEO GUZMAN on 02/22/19 0809 Cefuroxime Axetil (Cefuroxime) 500 Mg Tablet, 500 MG PO BID Prescribed by: TRAY VARMA on 07/05/19 1333 Clopidogrel Bisulfate (Plavix) 75 Mg Tablet, 75 MG PO DAILY Prescribed by: TRAY VARMA on 02/25/19 1929 Dicyclomine HCl (Dicyclomine HCl) 20 Mg Tablet, 20 MG PO BID PRN for ABDOMINAL CRAMPING, (Reported) Entered as Reported by: LEO GUZMAN on 02/22/19 0820 Digoxin (Digoxin) 125 Mcg Tablet, 125 MCG PO DAILY, (Reported) Entered as Reported by: GERARDO RUANO on 09/26/16 0929 Enalapril Maleate (Enalapril Maleate) 20 Mg Tablet, 20 MG PO DAILY, (Reported) Entered as Reported by: LEO GUZMAN on 02/22/19 0809 Insulin Aspart (Novolog Flexpen) 300 Units/3 Ml Solution, 10 UNITS SQ bid ac, (Reported) Entered as Reported by: COOPER HICKS on 07/05/19 0903 Insulin Detemir (Levemir Flextouch) 100 Unit/1 Ml Insuln.pen, 20 UNIT SQ BID, (Reported) Entered as Reported by: GERARDO RUANO on 09/06/18 1242 Lurasidone HCl (Latuda) 80 Mg Tablet, 80 MG PO HS, (Reported) Entered as Reported by: GERARDO RUANO on 02/24/17 0951 Metformin HCl (Metformin HCl) 500 Mg Tablet, 500 MG PO BID, (Reported) Entered as Reported by: COOPER HICKS on 07/05/19 0903 Rivaroxaban (Xarelto) 15 Mg Tablet, 15 MG PO DAILY, (Reported) Entered as Reported by: LEO GUZMAN on 02/22/19 0820 Past Fjmfioe-Gdqzxv-Mxizlq Hx Patient Social History Tobacco Use?: No Use of E-Cig and/or Vaping dev: No Substance use?: No Alcohol Use?: No Pt feels they are or have been: No Immunizations Up To Date Tetanus Booster (TDap): Unknown PED Vaccines UTD: No Influenza Vaccine Up-to-Date: No; Not Current First/Initial COVID19 Vaccinat: NONE Second COVID19 Vaccination Rocky: NONE Third COVID19 Vaccination Date: NONE Seasonal Allergies Seasonal Allergies: No Past Medical History Surgery/Hospitalization HX: PACEMAKER, DEFIB, SATISH HTN, AFIB, DM Surgeries: Yes (right carotid endarterectomy, colonoscopy, valve replacement) CABG, Coronary Stent, Defibrillator, Gallbladder, Hysterectomy, Pacemaker Respiratory: No Currently Using CPAP: No Currently Using BIPAP: No Cardiac: Yes (CARDIAC CATHS-STENTS X3; 2 VESSEL CABG; CAROTID ENDARTERECTOMY;PACER/DEFIB) Atrial Fibrillation, Cardiomyopathy, Coronary Artery Disease, High Cholesterol, Hypertension, Irregular Heartbeat, Peripheral Vascular Neurological: Yes (CVA - SIDE WEAKNESS RESOLVED, MILD RESIDUAL SPEECH IMPAIRMENT) Stroke 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 Genitourinary: Yes (NO DIALYSIS) Renal Failure, UTI-Chronic Gastrointestinal: Yes Hiatal Hernia, Gall Bladder Disease Musculoskeletal: Yes Arthritis Endocrine: Yes Diabetes, Insulin dep, Hypothyroidsim HEENT: Yes Cataract, Macular Degeneration Loss of Vision: Denies Hearing Impairment: Denies Cancer: No Did You Recieve Any Treatments: No Psychosocial: Yes Anxiety, Schizophrenia, Depression Integumentary: No Blood Disorders: No Adverse Reaction/Blood Tranf: No Family Medical History Family history: Diabetes mellitus 19 MOTHER Family history: Hypertension 19 FATHER 19 MOTHER Psychotic disorder G8 BROTHER (MENTAL HEALTH PROBLEMS) No Pertinent Family Hx PSH: -RIGHT CAROTID ENDARTERECTOMY -MULTIPLE CARDIAC CATHS WITH 2 VESSEL CABG IN 2004 AND STENTS X 3--LAST CATH 02/25/19-STENT TO RCA -PACEMAKER/DEFIBRILLATOR PLACED 04/30/10 FOR ISCHEMIC CARDIOMYOPATHY WITH EF < 20% AND PAROXYSMAL ATRIAL FIBRILLATION/FLUTTER --ST. JAK'S DEVICE. -CHOLECYSTECTOMY -HYSTERECTOMY Physical Exam Vital Signs Vital Signs - First Documented 08/27/21 21:05 Temp 37.0 Pulse 74 Resp 18 B/P (MAP) 200/94 (129) Capillary Refill : Height, Weight, BMI Height: 5'4.00" Weight: 191lbs. 0.0oz. 86.351006rb; 29.00 BMI Method:Stated Progress/Results/Core Measures Suspected Sepsis SIRS Temperature: Pulse: Respiratory Rate: Laboratory Tests 08/27/21 21:22: White Blood Count 6.0 Blood Pressure / Mean: Laboratory Tests 08/27/21 21:22: Creatinine 1.13, INR Comment 1.1, Platelet Count 132, Total Bilirubin 0.5 Results/Orders Lab Results Laboratory Tests Test 08/27/21 21:21 08/27/21 21:22 Range/Units Influenza Type A (RT-PCR) Not Detected Not Detecte Influenza Type B (RT-PCR) Not Detected Not Detecte SARS-CoV-2 RNA (RT-PCR) Detected H Not Detecte White Blood Count 6.0 4.3-11.0 10^3/uL Red Blood Count 3.91 3.80-5.11 10^6/uL Hemoglobin 11.9 11.5-16.0 g/dL Hematocrit 34 L 35-52 % Mean Corpuscular Volume 86 80-99 fL Mean Corpuscular Hemoglobin 30 25-34 pg Mean Corpuscular Hemoglobin Concent 35 32-36 g/dL Red Cell Distribution Width 12.1 10.0-14.5 % Platelet Count 132 130-400 10^3/uL Mean Platelet Volume 9.3 9.0-12.2 fL Immature Granulocyte % (Auto) 0 % Neutrophils (%) (Auto) 81 H 42-75 % Lymphocytes (%) (Auto) 7 L 12-44 % Monocytes (%) (Auto) 11 0-12 % Eosinophils (%) (Auto) 0 0-10 % Basophils (%) (Auto) 1 0-10 % Neutrophils # (Auto) 4.9 1.8-7.8 10^3/uL Lymphocytes # (Auto) 0.4 L 1.0-4.0 10^3/uL Monocytes # (Auto) 0.6 0.0-1.0 10^3/uL Eosinophils # (Auto) 0.0 0.0-0.3 10^3/uL Basophils # (Auto) 0.0 0.0-0.1 10^3/uL Immature Granulocyte # (Auto) 0.0 0.0-0.1 10^3/uL Neutrophils % (Manual) 78 % Lymphocytes % (Manual) 10 % Monocytes % (Manual) 12 % Percent Immature Platelet Fraction 1.8 0.0-7.6 % Blood Morphology Comment NORMAL Prothrombin Time 14.4 12.2-14.7 SEC INR Comment 1.1 0.8-1.4 Activated Partial Thromboplast Time 31 24-35 SEC D-Dimer 0.47 0.00-0.49 UG/ML Sodium Level 126 L 135-145 MMOL/L Potassium Level 4.5 3.6-5.0 MMOL/L Chloride Level 94 L 98-107 MMOL/L Carbon Dioxide Level 20 L 21-32 MMOL/L Anion Gap 12 5-14 MMOL/L Blood Urea Nitrogen 14 7-18 MG/DL Creatinine 1.13 0.60-1.30 MG/DL Estimat Glomerular Filtration Rate 52 BUN/Creatinine Ratio 12 Glucose Level 98 70-105 MG/DL Calcium Level 8.5 8.5-10.1 MG/DL Corrected Calcium 8.7 8.5-10.1 MG/DL Magnesium Level 1.4 L 1.6-2.4 MG/DL Total Bilirubin 0.5 0.1-1.0 MG/DL Aspartate Amino Transf (AST/SGOT) 24 5-34 U/L Alanine Aminotransferase (ALT/SGPT) 21 0-55 U/L Alkaline Phosphatase 71 40-136 U/L Total Creatine Kinase 63 29-168 U/L Creatine Kinase MB 0.9 <6.6 NG/ML Myoglobin 91.6 10.0-92.0 NG/ML Troponin I < 0.028 <0.028 NG/ML B-Type Natriuretic Peptide 187.2 H <100.0 PG/ML Total Protein 6.4 6.4-8.2 GM/DL Albumin 3.7 3.2-4.5 GM/DL Lipase 47 8-78 U/L My Orders Orders - TALITA KILGORE Jodi [employer] SELECTOR Cbc With Automated Diff (08/27/21 21:14) Magnesium (08/27/21 21:14) Chest 1 View, Ap/Pa Only (08/27/21 21:14) Ekg Tracing (08/27/21 21:14) Comprehensive Metabolic Panel (08/27/21 21:14) Myoglobin Serum (08/27/21 21:14) Protime With Inr (08/27/21 21:14) Partial Thromboplastin Time (08/27/21 21:14) O2 (08/27/21 21:14) Monitor-Rhythm Ecg Trace Only (08/27/21 21:14) Ed Iv/Invasive Line Start (08/27/21 21:14) Creatine Kinase (08/27/21 21:14) Creatine Kinase Mb (08/27/21 21:14) Lipase (08/27/21 21:14) Bnp [place] (08/27/21 21:14) Fibrin Degradation Products (08/27/21 21:14) Troponin I Benjamin (08/27/21 21:14) Covid 19 Inhouse Test (08/27/21 21:15) Influenza A And B By Pcr (08/27/21 21:15) Manual Differential (08/27/21:22) Magnesium Oxide Tablet (Mag Ox Tablet) (08/27/21 22:15) Vital Signs/I&O 08/27/21 21:05 Temp 37.0 Pulse 74 Resp 18 B/P (MAP) 200/94 (129) Capillary Refill : Departure Impression Primary Impression: COVID-19 Disposition: 01 HOME, SELF-CARE Condition: Stable Departure-Patient Inst. Decision time for Depature: 22:16 Referrals: [facility] (PCP) Primary Care Physician WOOD CALDERON (Family) Primary Care Physician Patient Instructions: COVID-19 (DC), Bebtelovimab FDA Fact Sheet Add. Discharge Instructions: Plan: 1. Rest. May take Tylenol as needed for fever or discomfort. 2. Follow up with your doctor for any persistent symptoms. 3. Return for any new, concerning, or worsening symptoms. 4. Isolate at home for 5 days, then wear mask for additional 5 days. All discharge instructions reviewed with patient and/or family. Voiced understanding. TALITA KILGORE FORMING TUBE SELECTOR Aug 27, 2021 21:31
[2021-08-27 21:35] LABS: ALBUMIN 3.7 GM/DL (3.2-4.5); POTASSIUM 4.5 MMOL/L (3.6-5.0)
[2021-08-27 21:37] LABS: CALCIUM 8.5 MG/DL (8.5-10.1)
[2021-08-27 21:38] LABS: TOTAL PROTEIN 6.4 GM/DL (6.4-8.2)
[2021-08-27 21:40] LABS: BILIRUBIN,TOTAL 0.5 MG/DL (0.1-1.0)
[2021-08-27 21:41] LABS: CREATININE SERUM 1.13 MG/DL (0.60-1.30); INR 1.1 (0.8-1.4); PROTHROMBIN TIME PATIENT 14.4 SEC (12.2-14.7)
[2021-08-27 21:44] LABS: MAGNESIUM 1.4 MG/DL (1.6-2.4)
[2021-08-27 21:48] LABS: LYMPHOCYTES % (MANUAL) 10 %; MONOCYTES % (MANUAL) 12 %; NEUTROPHILS % (MANUAL) 78 %; RBC MORPH NORMAL
[2021-08-27 21:51] LABS: CREATINE KINASE MB 0.9 NG/ML (<6.6)
--- NOTE | 2021-08-27 22:14 | Diagnostic Imaging Report ---
INDICATION: Chest pain EXAMINATION: Chest 08/27/2021 COMPARISON: 05/31/2019 FINDINGS: There are sternotomy wires present. Left pacemaker stable. Heart and pulmonary vasculature normal. Lungs and pleural spaces clear. IMPRESSION: 1. No acute cardiopulmonary process. Dictated by: Dictated on workstation # [id number]
[2021-08-27] MEDS ORDERED: MAGNESIUM OXIDE (MAG-OX)400 MG TAB PO ONE (22:15)
[2021-08-27] MEDS ORDERED: BEBTELOVIMAB 175 MG/2 ML VIAL IV ONE (22:30)
[2021-08-28 00:14] VITALS: BP 150/81
== END 2021-08-28 00:19 | disposition home or self-care (01) ==
LOC: EDUNIT# 21:04 → ER 21:06
DX: U07.1 COVID-19 (principal); Z28.310 Unvaccinated for COVID-19
CPT/HCPCS: 36415; 71045; 80053; 82550; 82553; 83690; 83735; 83874; 83880; 84484; 85007; 85027; 85379; 85610; 85730; 87636; 93005; 93041

== ENCOUNTER 2021-10-01 13:18 | Inpatient (IN) | payer MEDICARE ==
[~2021-10-01] VITALS: Ht 160 cm; Wt 83.5 kg
[2021-10-01] MEDS ORDERED: dilTIAZem DRIP PRE-MIX 125 ML IV SCH (13:30)
--- NOTE | 2021-10-01 13:39 | ED Cardiac General ---
History of Present Illness General Chief Complaint: Cardiac/General Problems Stated Complaint: HIGH HR Source: patient Exam Limitations: no limitations History of Present Illness Date Seen by Provider: Oct 01, 2021 Time Seen by Provider: 13:22 Initial Comments Here with report of high heart rate today. Apparently physical therapy noted that her heart rate was high. Patient did not have any complaints but EMS was summoned as due to concerns for atrial fibrillation with rapid ventricular response or inappropriate tachycardia. Patient describes some chest tightness without nausea, vomiting, diaphoresis, weakness, shortness of breath or other concerns. States that she has felt tired since yesterday but did not feel palpitations. Denies upper respiratory symptoms or other constitutional symptoms. She reports taking her meds as directed including aspirin this morning. Timing/Duration: 24 hours Severity: mild Location: central (Tightness) Activities at Onset: none Prior CP/Workup: cardiac cath Modifying Factors: improves with rest NTG SL SENIOR PENSIONS ADMINISTRATOR: No ASA po SENIOR PENSIONS ADMINISTRATOR: Yes Associated Systoms: No Chest Pain, No Cough, No Diaphoresis, No Fever/Chills, No Nausea/Vomiting; Weakness Allergies and Home Medications Allergies Coded Allergies: Bleach (Sodium Hypochlorite) (Verified Allergy, Unknown, 09/25/16) corn (Unverified Allergy, Unknown, 02/07/10) perfume (Verified Allergy, Unknown, 09/25/16) Patient Home Medication List Home Medication List Reviewed: Yes Acetaminophen (Acetaminophen) 500 Mg Tablet, 1,000 MG PO Q6H PRN for PAIN-MILD, (Reported) Entered as Reported by: SABIHA OLIVAS on 10/21/16 0942 Atorvastatin Calcium (Atorvastatin Calcium) 40 Mg Tablet, 40 MG PO HS, (Reported) Entered as Reported by: GERARDO RUANO on 06/09/17 0823 Carvedilol (Coreg) 12.5 Mg Tablet, 12.5 MG PO BID, (Reported) Entered as Reported by: LEO GUZMAN on 02/22/19 0809 Cefuroxime Axetil (Cefuroxime) 500 Mg Tablet, 500 MG PO BID Prescribed by: TRAY VARMA on 07/05/19 1333 Clopidogrel Bisulfate (Plavix) 75 Mg Tablet, 75 MG PO DAILY Prescribed by: TRAY VARMA on 02/25/19 1929 Dicyclomine HCl (Dicyclomine HCl) 20 Mg Tablet, 20 MG PO BID PRN for ABDOMINAL CRAMPING, (Reported) Entered as Reported by: LEO GUZMAN on 02/22/19 0820 Digoxin (Digoxin) 125 Mcg Tablet, 125 MCG PO DAILY, (Reported) Entered as Reported by: GERARDO RUANO on 09/26/16 0929 Enalapril Maleate (Enalapril Maleate) 20 Mg Tablet, 20 MG PO DAILY, (Reported) Entered as Reported by: LEO GUZMAN on 02/22/19 0809 Insulin Aspart (Novolog Flexpen) 300 Units/3 Ml Solution, 10 UNITS SQ bid ac, (Reported) Entered as Reported by: COOPER HICKS on 07/05/19 0903 Insulin Detemir (Levemir Flextouch) 100 Unit/1 Ml Insuln.pen, 20 UNIT SQ BID, (Reported) Entered as Reported by: GERARDO RUANO on 09/06/18 1242 Lurasidone HCl (Latuda) 80 Mg Tablet, 80 MG PO HS, (Reported) Entered as Reported by: GERARDO RUANO on 02/24/17 0951 Metformin HCl (Metformin HCl) 500 Mg Tablet, 500 MG PO BID, (Reported) Entered as Reported by: COOPER HICKS on 07/05/19 0903 Rivaroxaban (Xarelto) 15 Mg Tablet, 15 MG PO DAILY, (Reported) Entered as Reported by: LEO GUZMAN on 02/22/19 0820 Review of Systems Review of Systems Constitutional: No chills, No fever EENTM: No Nose Congestion, No Throat Pain Respiratory: Denies Cough, Denies Shortness of Air Cardiovascular: Denies See HPI, Denies Edema; Irregular Heart Rate; Denies Syncope Gastrointestinal: Denies Diarrhea, Denies Nausea, Denies Vomiting Genitourinary: No Symptoms Reported Musculoskeletal: No back pain, No muscle pain Skin: no symptoms reported Psychiatric/Neurological: No Symptoms Reported All Other Systems Reviewed Negative Unless Noted: Yes Past Bfnjzbf-[id number]-Jtijrn Hx Patient Social History Tobacco Use?: No Substance use?: No Alcohol Use?: No Immunizations Up To Date Tetanus Booster (TDap): Unknown PED Vaccines UTD: No First/Initial COVID19 Vaccinat: NONE Second COVID19 Vaccination Rocky: NONE Third COVID19 Vaccination Date: NONE Seasonal Allergies Seasonal Allergies: No Past Medical History Surgery/Hospitalization HX: PACEMAKER, DEFIB, SATISH HTN, AFIB, DM Surgeries: Yes (right carotid endarterectomy, colonoscopy, valve replacement) CABG, Coronary Stent, Defibrillator, Gallbladder, Hysterectomy, Pacemaker Respiratory: No Currently Using CPAP: No Currently Using BIPAP: No Cardiac: Yes (CARDIAC CATHS-STENTS X3; 2 VESSEL CABG; CAROTID ENDARTERECTOMY;PACER/DEFIB) Atrial Fibrillation, Cardiomyopathy, Coronary Artery Disease, High Cholesterol, Hypertension, Irregular Heartbeat, Peripheral Vascular Neurological: Yes (CVA - SIDE WEAKNESS RESOLVED, MILD RESIDUAL SPEECH IMPAIRMENT) Stroke Reproductive Disorders: No SEA KAYAKING GUIDE History: Hysterectomy Genitourinary: Yes (NO DIALYSIS) Renal Failure, UTI-Chronic Gastrointestinal: Yes Hiatal Hernia, Gall Bladder Disease Musculoskeletal: Yes Arthritis Endocrine: Yes Diabetes, Insulin dep, Hypothyroidsim HEENT: Yes Cataract, Macular Degeneration Loss of Vision: Denies Hearing Impairment: Denies Cancer: No Did You Recieve Any Treatments: No Psychosocial: Yes Anxiety, Schizophrenia, Depression Integumentary: No Blood Disorders: No Adverse Reaction/Blood Tranf: No Family Medical History Reviewed Nursing Family Hx Family history: Diabetes mellitus 19 MOTHER Family history: Hypertension 19 FATHER 19 MOTHER Psychotic disorder G8 BROTHER (MENTAL HEALTH PROBLEMS) No Pertinent Family Hx PSH: -RIGHT CAROTID ENDARTERECTOMY -MULTIPLE CARDIAC CATHS WITH 2 VESSEL CABG IN 2004 AND STENTS X 3--LAST CATH 02/25/19-STENT TO [facility] -PACEMAKER/DEFIBRILLATOR PLACED 04/30/10 FOR ISCHEMIC CARDIOMYOPATHY WITH EF < 20% AND PAROXYSMAL ATRIAL FIBRILLATION/FLUTTER --[facility] JAK'S DEVICE. -CHOLECYSTECTOMY -HYSTERECTOMY Physical Exam Vital Signs Vital Signs - First Documented 10/01/21 13:19 Temp 36.6 Pulse 144 Resp 18 B/P (MAP) 156/103 (120) Pulse Ox 99 Capillary Refill : Height, Weight, BMI Height: 5'4.00" Weight: 191lbs. 0.0oz. 86.575994fl; 29.00 BMI Method:Stated General Appearance: No Apparent Distress, WD/WN HEENT: PERRL/EOMI, Pharynx Normal Neck: Non Tender, Supple Respiratory: Lungs Clear, Normal Breath Sounds Cardiovascular: Irregularly Irregular, Tachycardia Gastrointestinal: No Organomegaly, No Pulsatile Mass, Non Tender, Soft Extremity: Normal Inspection, Normal Range of Motion, Non Tender Neurologic/Psychiatric: Alert, Oriented x3 Skin: Normal Color, Warm/Dry Progress/Results/Core Measures Results/Orders Lab Results Laboratory Tests Test 10/01/21 13:23 Range/Units White Blood Count 7.1 4.3-11.0 10^3/uL Red Blood Count 3.54 L 3.80-5.11 10^6/uL Hemoglobin 10.5 L 11.5-16.0 g/dL Hematocrit 31 L 35-52 % Mean Corpuscular Volume 88 80-99 fL Mean Corpuscular Hemoglobin 30 25-34 pg Mean Corpuscular Hemoglobin Concent 34 32-36 g/dL Red Cell Distribution Width 12.7 10.0-14.5 % Platelet Count 141 130-400 10^3/uL Mean Platelet Volume 10.0 9.0-12.2 fL Immature Granulocyte % (Auto) 0 % Neutrophils (%) (Auto) 79 H 42-75 % Lymphocytes (%) (Auto) 11 L 12-44 % Monocytes (%) (Auto) 7 0-12 % Eosinophils (%) (Auto) 2 0-10 % Basophils (%) (Auto) 1 0-10 % Neutrophils # (Auto) 5.6 1.8-7.8 10^3/uL Lymphocytes # (Auto) 0.8 L 1.0-4.0 10^3/uL Monocytes # (Auto) 0.5 0.0-1.0 10^3/uL Eosinophils # (Auto) 0.1 0.0-0.3 10^3/uL Basophils # (Auto) 0.1 0.0-0.1 10^3/uL Immature Granulocyte # (Auto) 0.0 0.0-0.1 10^3/uL Prothrombin Time 15.9 H 12.2-14.7 SEC INR Comment 1.2 0.8-1.4 Activated Partial Thromboplast Time 29 24-35 SEC Sodium Level 135 135-145 MMOL/L Potassium Level 4.4 3.6-5.0 MMOL/L Chloride Level 105 98-107 MMOL/L Carbon Dioxide Level 21 21-32 MMOL/L Anion Gap 9 5-14 MMOL/L Blood Urea Nitrogen 20 H 7-18 MG/DL Creatinine 1.30 0.60-1.30 MG/DL Estimat Glomerular Filtration Rate 44 BUN/Creatinine Ratio 15 Glucose Level 270 H 70-105 MG/DL Calcium Level 8.3 L 8.5-10.1 MG/DL Corrected Calcium 8.9 8.5-10.1 MG/DL Magnesium Level 1.5 L 1.6-2.4 MG/DL Total Bilirubin 0.5 0.1-1.0 MG/DL Aspartate Amino Transf (AST/SGOT) 19 5-34 U/L Alanine Aminotransferase (ALT/SGPT) 22 0-55 U/L Alkaline Phosphatase 95 40-136 U/L Myoglobin 62.2 10.0-92.0 NG/ML Troponin I 1.278 *H <0.028 NG/ML B-Type Natriuretic Peptide 238.7 H <100.0 PG/ML Total Protein 5.8 L 6.4-8.2 GM/DL Albumin 3.3 3.2-4.5 GM/DL My Orders Orders - RUFINO TESFAYE MD Ekg Tracing (10/01/21 13:22) Cbc With Automated Diff (10/01/21 13:30) Magnesium (10/01/21 13:30) Chest 1 View, Ap/Pa Only (10/01/21 13:30) Ekg Tracing (10/01/21 13:30) Comprehensive Metabolic Panel (10/01/21 13:30) Myoglobin Serum (10/01/21 13:30) Protime With Inr (10/01/21 13:30) Partial Thromboplastin Time (10/01/21 13:30) O2 (10/01/21 13:30) Monitor-Rhythm Ecg Trace Only (10/01/21 13:30) Lipid Panel (10/02/21 06:00) Ed Iv/Invasive Line Start (10/01/21 13:30) Bnp [place] (10/01/21 13:30) Troponin I [place] (10/01/21 13:30) Diltiazem Drip Pre-Mix (Cardizem Drip Pr (10/01/21 13:30) Diltiazem Injection (Cardizem Injection) (10/01/21 13:30) Enoxaparin Injection (Lovenox Injection) (10/01/21 14:30) Ed Admission (Communication) (10/01/21 15:18) Medications Given in ED Current Medications Medications Dose Ordered Sig/Roxana Route Start Time Stop Time Status Last Admin Dose Admin Diltiazem HCl 15 mg ONCE ONCE IVP 10/01/21 13:30 10/01/21 13:34 DC 10/01/21 13:45 15 MG Enoxaparin Sodium 80 mg ONCE ONCE SC 10/01/21 14:30 10/01/21 14:31 DC 10/01/21 14:31 80 MG Vital Signs/I&O 10/01/21 13:19 Temp 36.6 Pulse 144 Resp 18 B/P (MAP) 156/103 (120) Pulse Ox 99 Progress Progress Note : Progress Note Seen and evaluated. IV via EMS. We will initiate second IV. Labs, EKG and chest x-ray ordered. Patient has had aspirin today so we will not give that. She has sustained heart rate at 144 without much variation. There is concerns about atrial flutter. Cardizem 15 mg IV and drip at 10 mg/h ordered to be initiated. Monitor patient. 1422: Patient noted to have rate change after Cardizem bolus and now is in sinus rhythm and EKG noted and documented this. Troponin is back now and is high at 1.2. I discussed the case with Dr. Christina given concerns of lateral ischemia on EKG and elevated troponin. He will come down and see the patient in the emergency department. Patient informed. We will initiate Lovenox 80 mg subcu x1 now. Cardizem drip on hold we will start if her heart rate goes above 100. All findings and concerns discussed with patient who agrees with plan to this point. Monitor patient. 1515: Case discussed with Dr. James and she is excepted the patient for admission. Pending Dr. Christina evaluation and he will see her in consult. Patient agrees to plan. Initial ECG Impression Date: Oct 01, 2021 Initial ECG Impression Time: 13:24 Initial ECG Rate: 143 Initial ECG Rhythm: A Fib/Flutter Initial ECG Impression: Atrial Fibrillation w/RVR Comment Appears to be atrial flutter with rapid ventricular rate. Concerns for lateral ischemia with questionable ST depression. Normal axis. No evidence of ST elevation HI. Interpreted by me. EKG : EKG Time: 13:52 Rate: 75 Rhythm: Normal Sinus Comment Now in sinus rhythm with interventricular conduction delay and concerns for lateral ischemia with ST depression and T wave inversion in the lateral leads. Normal axis remains. No evidence of ST elevation HI. Interpreted by me. Diagnostic Imaging Diagonstic Imaging: Xray Plain Films/CT/US/NM/MRI: chest Comments [facility], [place] NAME: REY HEARN [facility] REC#: [id number] PT STATUS: REG ER : 1950 PHYSICIAN: RUFINO TESFAYE MD ADMIT DATE: 10/01/21/ER Draft Date of Exam:10/01/21 CHEST 1 VIEW, AP/PA ONLY INDICATION: Chest pain. Comparison with 08/27/2021. FINDINGS: Mild cardiomegaly. Median sternotomy changes and ICD pacer are again noted, unchanged. The lungs are well aerated. No evidence of pulmonary edema. No pneumothorax or pleural effusions. No bony abnormalities. IMPRESSION: Postoperative residue with no acute changes. Cardiomegaly again noted. Dictated on workstation # [id number] Dict: 10/01/21 1447 Trans: 10/01/21 1449 [id number] Interpreted by: JADEN RAMÍREZ MD Electronically signed by: Departure Impression Primary Impression: Atrial flutter with rapid ventricular response Additional Impression: Non-ST elevation HI (NSTEMI) Disposition: ADMITTED INPATIENT Condition: Stable Admissions Decision to Admit Reason: Admit from ER (General) Decision to Admit/Date: Oct 01, 2021 Time/Decision to Admit Time: 15:15 Departure-Patient Inst. Referrals: [facility] [place] (PCP) Primary Care Physician WOOD CALDERON (Family) Primary Care Physician RUFINO TESFAYE MD Oct 01, 2021 13:39
[2021-10-01 13:40] LABS: BASOPHILS # (AUTO) 0.1 10^3/uL (0.0-0.1); BASOPHILS % (AUTO) 1 % (0-10); EOSINOPHILS # (AUTO) 0.1 10^3/uL (0.0-0.3); EOSINOPHILS % (AUTO) 2 % (0-10); HEMATOCRIT 31 % (35-52); HEMOGLOBIN 10.5 g/dL (11.5-16.0); LYMPHOCYTES # (AUTO) 0.8 10^3/uL (1.0-4.0); LYMPHOCYTES % (AUTO) 11 % (12-44); MEAN CORPUSCULAR HEMOGLOBIN 30 pg (25-34); MEAN CORPUSCULAR HGB CONC 34 g/dL (32-36); MEAN CORPUSCULAR VOLUME 88 fL (80-99); MONOCYTES # (AUTO) 0.5 10^3/uL (0.0-1.0); MONOCYTES % (AUTO) 7 % (0-12); NEUTROPHILS # (AUTO) 5.6 10^3/uL (1.8-7.8); NEUTROPHILS % (AUTO) 79 % (42-75); PLATELET COUNT 141 10^3/uL (130-400); WHITE BLOOD COUNT 7.1 10^3/uL (4.3-11.0)
[2021-10-01 13:46] LABS: ALBUMIN 3.3 GM/DL (3.2-4.5); INR 1.2 (0.8-1.4); POTASSIUM 4.4 MMOL/L (3.6-5.0); PROTHROMBIN TIME PATIENT 15.9 SEC (12.2-14.7)
[2021-10-01 13:47] LABS: CALCIUM 8.3 MG/DL (8.5-10.1)
[2021-10-01 13:49] LABS: TOTAL PROTEIN 5.8 GM/DL (6.4-8.2)
[2021-10-01 13:50] LABS: BILIRUBIN,TOTAL 0.5 MG/DL (0.1-1.0)
[2021-10-01 13:52] LABS: CREATININE SERUM 1.3 MG/DL (0.60-1.30)
[2021-10-01 13:55] LABS: MAGNESIUM 1.5 MG/DL (1.6-2.4)
[2021-10-01] MEDS ORDERED: ENOXAPARIN 80 MG/0.8 ML (LOVENOX) SYR SC ONE (14:30)
--- NOTE | 2021-10-01 14:50 | Diagnostic Imaging Report ---
INDICATION: Chest pain. Comparison with 08/27/2021. FINDINGS: Mild cardiomegaly. Median sternotomy changes and ICD pacer are again noted, unchanged. The lungs are well aerated. No evidence of pulmonary edema. No pneumothorax or pleural effusions. No bony abnormalities. IMPRESSION: Postoperative residue with no acute changes. Cardiomegaly again noted. Dictated by: Dictated on workstation # [id number]
[2021-10-01] MEDS ORDERED: ONDANSETRON 4 MG (ZOFRAN) ORAL DISSOLVE TAB PO PRN (17:00)
[2021-10-01] MEDS ORDERED: ONDANSETRON 4 MG/2 ML (SDV) Z0FRAN IV PRN (17:00)
[2021-10-01] MEDS ORDERED: ANTACID SUSP 30 ML UDC (MYLANTA) PO PRN (17:00)
[2021-10-01] MEDS ORDERED: LACTULOSE SYRUP 10GM/15ML (ENULOSE) 30ML UDC PO PRN (17:00)
[2021-10-01] MEDS ORDERED: MILK OF MAGNESIA 400 MG/5 ML 30 ML UDC PO PRN (17:00)
[2021-10-01] MEDS ORDERED: diphenhydrAMINE 50 MG/ML INJ (BENADRYL) IVP PRN (17:00)
[2021-10-01] MEDS ORDERED: polyethylene glycoL POWDER 17 GM (MIRALAX) PACK PO PRN (17:00)
[2021-10-01] MEDS ORDERED: NS IV 1000 ML 1,000 ML IV SCH (17:00)
[2021-10-01] MEDS ORDERED: morphine INJ 4 MG/ML 1 ML (VIAL/SYRINGE) IV PRN (17:00)
[2021-10-01] MEDS ORDERED: MELATONIN 3 MG TABLET PO PRN (17:00)
[2021-10-01] MEDS ORDERED: NITROGLYCERIN 0.4 MG SL TABS BTL 25'S SL PRN (17:00)
[2021-10-01] MEDS ORDERED: PATIENT MAY USE OWN MEDS, ALL PO SCH (17:00)
[2021-10-01] MEDS ORDERED: ACETAMINOPHEN 325 MG TABLET PO PRN (17:00)
[2021-10-01] MEDS ORDERED: ENOXAPARIN 100 MG/1 ML (LOVENOX) SYR SC SCH (17:00)
[2021-10-01] MEDS ORDERED: BISACODYL 10 MG SUPP (DULCOLAX) PR PRN (17:00)
[2021-10-01] MEDS ORDERED: diphenhydrAMINE 25 MG TAB (BENADRYL) PO PRN (17:00)
[2021-10-01] MEDS ORDERED: CALCIUM CARBONATE 500 MG (TUMS) TAB.CHEW PO PRN (17:00)
[2021-10-01 17:10] VITALS: BP 124/90
[2021-10-01] MEDS ORDERED: RT-ALBUTEROL SULF 2.5 MG/3 ML PRE-MIX VIAL INH PRN (17:15)
[2021-10-01] MEDS: dilTIAZem DRIP PRE-MIX 125 ML IV SCH ×2 (17:42→21:17)
--- NOTE | 2021-10-01 17:47 | Tele-ICU Consult ---
History of Present Illness History of Present Illness Date Seen by Provider: Oct 01, 2021 Time Seen by Provider: 17:46 Date of Admission (Tele-ICU Physician , consultation) Available chart/ vitals / labs / Images reviewed H&P is from ER notes Patient's information available about PMH, Shx, Fhx allergy reviewed inEMR. ROS as per chart and RN report Now in ICU, hemodynamically stable, AAO , on RA Video assessment done using teleICU camera, rest of exam as per RN Discussed with RN. Consultants: Hospital course: (10/01) 70 y/o female admitted in ED due to elevated heart rate. DX: Aflutter with rvr A/P Atrial Fibrillation w/RVR - PAF documented on ICD interrogation of 02/16/19 - as per notes 0 . s/p Pacemaker/defib implantation in Apr 2010 - hr controlled ( afyet cardizem IV bolus - gtt was never initiated - AC with lovenox bid - cards coonsulted CAD with a h/o CABG in 2004 - multiple caths and stents after DM -ISS Lines : , (Central Line Necessity Reviewed) Shell: OG: Nutrition: Analgesia: Anxiety/ delirium VTE Prophylaxis: Stress Ulcer Prophylaxis: Plans in collaboration with bedside consultants and IM MDs. Discussed with RN to reach out if any questions or concerns A total of 15 minutes of critical care time was devoted to this patient today, required to treat and/or prevent further deterioration of critical care condition ( as above ) . Allergies and Home Medications Allergies Coded Allergies: Bleach (Sodium Hypochlorite) (Verified Allergy, Unknown, 09/25/16) corn (Unverified Allergy, Unknown, 02/07/10) perfume (Verified Allergy, Unknown, 09/25/16) Home Medications Acetaminophen 500 Mg Tablet, 1,000 MG PO Q6H PRN for PAIN-MILD, (Reported) TAKES 2 (500 MG) TABLETS Atorvastatin Calcium 40 Mg Tablet, 40 MG PO HS, (Reported) Carvedilol 12.5 Mg Tablet, 12.5 MG PO BID, (Reported) LAST FILLED 12-24-2018 #60 / 30 DAY SUPPLY Cefuroxime Axetil 500 Mg Tablet, 500 MG PO BID Prescribed by: TRAY VARMA on 07/05/19 1333 Clopidogrel Bisulfate 75 Mg Tablet, 75 MG PO DAILY Prescribed by: TRAY VARMA on 02/25/191928 Dicyclomine HCl 20 Mg Tablet, 20 MG PO BID PRN for ABDOMINAL CRAMPING, (Reported) Digoxin 125 Mcg Tablet, 125 MCG PO DAILY, (Reported) Enalapril Maleate 20 Mg Tablet, 20 MG PO DAILY, (Reported) Insulin Aspart 300 Units/3 Ml Solution, 10 UNITS SQ bid ac, (Reported) Insulin Detemir 100 Unit/1 Ml Insuln.pen, 20 UNIT SQ BID, (Reported) Lurasidone HCl 80 Mg Tablet, 80 MG PO HS, (Reported) Metformin HCl 500 Mg Tablet, 500 MG PO BID, (Reported) Rivaroxaban 15 Mg Tablet, 15 MG PO DAILY, (Reported) Past Medical/Social/Family Hx Patient Social History Tobacco Use?: No Use of E-Cig and/or Vaping dev: No Substance use?: No Alcohol Use?: No Immunizations Up To Date Influenza Vaccine Up-to-Date: No; Not Current First/Initial COVID19 Vaccinat: NONE Second COVID19 Vaccination Rocky: NONE Tetanus Booster (TDap): Unknown Hepatitis A: No Hepatitis B: No TB Skin Test: None Date of Pneumonia Vaccine: Sep 05, 2016 Current Status Communicates: Verbally Primary Language: Bermudian Preferred Spoken Language: Bermudian Is interpretation needed?: No Past Medical History Schizophrenia HTN Insulin Dependent DM Family Medical History Family Hx: PSH: -RIGHT CAROTID ENDARTERECTOMY -MULTIPLE CARDIAC CATHS WITH 2 VESSEL CABG IN 2004 AND STENTS X 3--LAST CATH 02/25/19-STENT TO [facility] -PACEMAKER/DEFIBRILLATOR PLACED 04/30/10 FOR ISCHEMIC CARDIOMYOPATHY WITH EF < 20% AND PAROXYSMAL ATRIAL FIBRILLATION/FLUTTER --ST. JAK'S DEVICE. -CHOLECYSTECTOMY -HYSTERECTOMY Review of Systems Constitutional: see HPI Focused Exam Height, Weight, BMI Height: 5'4.00" Weight: 191lbs. 0.0oz. 86.495406zw; 29.00 BMI Method:Stated Exam Exam Patient acknowledged, consented, and participated in this virtual visit which was conducted using real time audio/video Vital Signs Date Time Temp Pulse Resp B/P (MAP) Pulse Ox O2 Delivery O2 Flow Rate FiO2 10/01/21 17:10 36.6 118 99 21 10/01/21 17:00 110 8 91 10/01/21 16:56 118 10/01/21 16:12 75 19 124/90 99 10/01/21 13:19 36.6 144 18 156/103 (120) 99 Height & Weight Height: 5'4.00" Weight: 191lbs. 0.0oz. 86.912777qe; 29.00 BMI Method:Stated General Appearance: No Apparent Distress, WD/WN HEENT: PERRL/EOMI, Pharynx Normal Neck: Non Tender, Supple Respiratory: Lungs Clear, Normal Breath Sounds Cardiovascular: Irregularly Irregular, Tachycardia Extremity: Normal Inspection, Normal Range of Motion, Non Tender Neurologic/Psychiatric: Alert, Oriented x3 Skin: Normal Color, Warm/Dry Results Lab Laboratory Tests 10/01/21 13:23 Assessment/Plan Assessment/Plan 1 JEOVANNY MOE MD Oct 01, 2021 17:47
[2021-10-01] MEDS: DOCUSATE SODIUM 100 MG (COLACE) CAP PO SCH (19:59)
[2021-10-01] MEDS: SENNOSIDES 8.6 MG (SENOKOT) TAB PO SCH (19:59)
[2021-10-01] MEDS: inSUlin ASPART (NovoLOG) 1 UNIT/0.01 ML (CHARGE PER UNIT) SC SCH (21:08)
[2021-10-02] MEDS ORDERED: ENOXAPARIN 80 MG/0.8 ML (LOVENOX) SYR SC SCH (03:00)
[2021-10-02 05:45] LABS: BASOPHILS # (AUTO) 0.1 10^3/uL (0.0-0.1); BASOPHILS % (AUTO) 1 % (0-10); EOSINOPHILS # (AUTO) 0.2 10^3/uL (0.0-0.3); EOSINOPHILS % (AUTO) 2 % (0-10); HEMATOCRIT 32 % (35-52); HEMOGLOBIN 10.5 g/dL (11.5-16.0); LYMPHOCYTES % (AUTO) 16 % (12-44); MEAN CORPUSCULAR HEMOGLOBIN 30 pg (25-34); MEAN CORPUSCULAR HGB CONC 33 g/dL (32-36); MEAN CORPUSCULAR VOLUME 90 fL (80-99); MEAN PLATELET VOLUME 10.6 fL (9.0-12.2); MONOCYTES # (AUTO) 0.5 10^3/uL (0.0-1.0); MONOCYTES % (AUTO) 8 % (0-12); NEUTROPHILS # (AUTO) 4.7 10^3/uL (1.8-7.8); NEUTROPHILS % (AUTO) 73 % (42-75); PLATELET COUNT 139 10^3/uL (130-400); WHITE BLOOD COUNT 6.5 10^3/uL (4.3-11.0)
[2021-10-02 05:58] LABS: POTASSIUM 4.5 MMOL/L (3.6-5.0)
[2021-10-02 05:59] LABS: ALBUMIN 3.3 GM/DL (3.2-4.5); CALCIUM 8.5 MG/DL (8.5-10.1)
[2021-10-02] MEDS ORDERED: KCL 20 MEQ TAB (K-DUR) PO SCH (06:00)
[2021-10-02] MEDS ORDERED: MAGNESIUM 1 GM/100 ML IVPB 100 ML IV SCH (06:00)
[2021-10-02] MEDS ORDERED: POTASSIUM CL 10MEQ/50ML IVPB 50 ML IV SCH (06:00)
[2021-10-02 06:01] LABS: TOTAL PROTEIN 5.9 GM/DL (6.4-8.2)
[2021-10-02 06:03] LABS: BILIRUBIN,TOTAL 0.5 MG/DL (0.1-1.0)
[2021-10-02 06:04] LABS: PHOSPHORUS 3.5 MG/DL (2.3-4.7)
[2021-10-02 06:05] LABS: CREATININE SERUM 1.05 MG/DL (0.60-1.30)
[2021-10-02 06:08] LABS: MAGNESIUM 1.5 MG/DL (1.6-2.4)
[2021-10-02] MEDS: inSUlin ASPART (NovoLOG) 1 UNIT/0.01 ML (CHARGE PER UNIT) SC SCH ×4 (06:12→20:29)
[2021-10-02] MEDS: SENNOSIDES 8.6 MG (SENOKOT) TAB PO SCH ×2 (07:54→20:29)
[2021-10-02] MEDS: DOCUSATE SODIUM 100 MG (COLACE) CAP PO SCH ×2 (07:54→20:29)
[2021-10-02] MEDS ORDERED: RIVAROXABAN 15 MG TABLET (XARELTO) PO SCH (08:00)
[2021-10-02] MEDS: ASPIRIN E.C. 81 MG (ECOTRIN) TAB PO SCH (08:40)
--- NOTE | 2021-10-02 08:52 | Consultation-Cardiology ---
HPI-Cardiology Cardiology Consultation: Date of Consultation 10/02/21 Date of Admission 10/01/21 Attending Physician [facility] Admitting Physician Admitting Physician: Lisa James DO Attending Physician: Lisa James DO Consulting Physician CARLITA WOOD JR, MD HPI: Time Seen by a Provider: 08:47 Chief Complaint: REASON FOR CONSULTATION: Atrial flutter and abnormal troponin level. I had the pleasure of seeing Melina in the intensive care unit at [facility] in [place], [place] today. She normally follows with one of my partners, Dr. Jo. She has an extensive past cardiac history including coronary artery disease with previous coronary artery bypass surgery followed by several coronary stents, paroxysmal atrial fibrillation, complete heart block with a permanent pacemaker, hypertension, hyperlipidemia, previous cerebrovascular accident was some residual right-sided weakness, and several other noncardiac issues. She was in her usual state of health until yesterday when she began developing increasing dyspnea. She had a slight nonproductive cough. She denies fever or chills. The breathing continued to get worse during the day and she asked her daughter to bring her to the hospital. She was found to be in atrial flutter with a rapid ventricular rate. She was placed on diltiazem infusion and admitted to the intensive care unit. She was also found to have an elevated troponin level. As such, a cardiology consultation was requested. She denies any chest discomfort. Her dyspnea is improved this morning. She denies paroxysmal nocturnal dyspnea or orthopnea. She has some occasional lightheaded spells but denies any syncope. She denies palpitations or lower extremity e yvonne. Certain portions of this document may have been dictated utilizing voice recognition technology. Inherent to this technology, typographical and grammatical errors may exist. As much as I am diligent to identify and correct these mistakes, some errors may remain in the document. Review of Systems-Cardiology Review of Systems Other comments Review of 10 organ systems is as per the history of present illness, otherwise negative. All Other Systems Reviewed Negative Unless Noted: Yes KWJ-Ipbiol-Vmdeul Hx Patient Social History Marrital Status: Smoking Status: Never a Smoker 2nd Hand Smoke Exposure: No Alcohol Use?: No Immunizations Up To Date Tetanus Booster (TDap): Unknown Date of Pneumonia Vaccine: Sep 05, 2016 Past Medical History PMH As described under Assessment. Family Medical History Family Medical History: She reports her father and mother both had HTN. No report of premature CAD or SCD. Family History: Family history: Diabetes mellitus 19 MOTHER Family history: Hypertension 19 FATHER 19 MOTHER Psychotic disorder G8 BROTHER (MENTAL HEALTH PROBLEMS) Allergies and Home Medications Allergies Coded Allergies: Bleach (Sodium Hypochlorite) (Verified Allergy, Unknown, 09/25/16) corn (Unverified Allergy, Unknown, 02/07/10) perfume (Verified Allergy, Unknown, 09/25/16) Patient Home Medication List Home Medication List Reviewed: Yes Acetaminophen (Tylenol Extra Strength) 500 Mg Tablet, 1,000 MG PO Q8H PRN for PAIN-MILD (1-4), (Reported) Entered as Reported by: LEO GUZMAN on 10/02/21 123 Last Action: Reviewed Aspirin (Aspirin EC) 81 Mg Tablet.dr, 81 MG PO DAILY, (Reported) Entered as Reported by: LEO GUZMAN on 10/02/21 123 Last Action: Reviewed Atorvastatin Calcium (Atorvastatin Calcium) 40 Mg Tablet, 40 MG PO HS, (Reported) Entered as Reported by: GERARDO RUANO on 06/09/17 0823 Last Action: Reviewed Carvedilol (Carvedilol) 12.5 Mg Tablet, 12.5 MG PO BID, (Reported) Entered as Reported by: LEO GUZMAN on 10/02/21 123 Last Action: Reviewed Dicyclomine HCl (Dicyclomine HCl) 20 Mg Tablet, 20 MG PO BID PRN for ABDOMINAL CRAMPING, (Reported) Entered as Reported by: LEO GUZMAN on 02/22/19 0820 Last Action: Reviewed Enalapril Maleate (Enalapril Maleate) 20 Mg Tablet, 20 MG PO DAILY, (Reported) Entered as Reported by: LEO GUZMAN on 02/22/19 0809 Last Action: Reviewed Fluticasone Propionate (Fluticasone Propionate) 50 Mcg/Actuation [place].susp, 1 SPRAY NSEACH BID PRN for CONGESTION, (Reported) Entered as Reported by: LEO GUZMAN on 10/02/21 123 Last Action: Reviewed Insulin Aspart (Novolog Flexpen) 100 Unit/Ml (3 Ml) Solution, 20 UNITS SQ BEFORE LUNCH AND DINNER, (Reported) Entered as Reported by: COOPER HICKS on 07/05/19 09 Last Action: Reviewed Insulin Detemir (Levemir Flextouch) 100 Unit/Ml (3 Ml) Insuln.pen, 9 UNIT SQ BID, (Reported) Entered as Reported by: GERARDO RUANO on 09/06/18 1242 Last Action: Reviewed Multivitamin (Multivitamin) 1 Each Tablet, 1 EACH PO DAILY, (Reported) Entered as Reported by: LEO GUZMAN on 10/02/21 1231 Last Action: Reviewed [Latuda 80MG] 80 TAB, 80 MG PO HS, (Reported) Entered as Reported by: LEO GUZMAN on 10/02/21 1231 Last Action: Reviewed Discontinued Medications Acetaminophen (Acetaminophen) 500 Mg Tablet, 1,000 MG PO Q6H PRN for PAIN-MILD, (Reported) Discontinued Reason: Duplicate Order Entered as Reported by: SABIHA OLIVAS on 10/21/16 0942 Last Action: Discontinued Carvedilol (Coreg) 12.5 Mg Tablet, 12.5 MG PO BID, (Reported) Discontinued Reason: Duplicate Order Entered as Reported by: LEO GUZMAN on 02/22/19 0809 Last Action: Discontinued Cefuroxime Axetil (Cefuroxime) 500 Mg Tablet, 500 MG PO BID Discontinued Reason: No Longer Taking Prescribed by: TRAY JO on 07/05/19 1333 Last Action: Discontinued Clopidogrel Bisulfate (Plavix) 75 Mg Tablet, 75 MG PO DAILY Discontinued Reason: No Longer Taking Prescribed by: TRAY JO on 02/25/19 1929 Last Action: Discontinued Lurasidone HCl (Latuda) 80 Mg Tablet, 80 MG PO HS, (Reported) Discontinued Reason: Duplicate Order Entered as Reported by: GERARDO RUANO on 02/24/17 0951 Last Action: Discontinued Metformin HCl (Metformin HCl) 500 Mg Tablet, 500 MG PO BID, (Reported) Discontinued Reason: No Longer Taking Entered as Reported by: COOPER HICKS on 07/05/19 09 Last Action: Discontinued Rivaroxaban (Xarelto) 15 Mg Tablet, 15 MG PO DAILY, (Reported) Discontinued Reason: No Longer Taking Entered as Reported by: LEO GUZMAN on 02/22/19 0820 Last Action: Discontinued Exam Vital Signs Vital Signs Date Time Temp Pulse Resp B/P (MAP) Pulse Ox O2 Delivery O2 Flow Rate FiO2 10/02/21 19:13 36.5 125 20 145/90 (108) 100 Room Air 10/01/21 17:10 21 Physical Exam General: Alert. No acute distress. Well nourished and appears stated age. She is obese. Eye: Extraocular movements are intact. Conjunctivae are clear. There are no xanthelasma. HENT: Normocephalic. Atraumatic. Carotid pulsations 2/2 without bruits. Neck: Jugular venous pressure does not appear elevated. No thyromegaly appreciated. Respiratory: Lungs are clear to auscultation. Respirations are non-labored. Breath sounds are equal. Symmetrical chest wall expansion. Cardiovascular: Normal rate. Regular rhythm. Distant S1/S2. No murmur. No gallop. Point of maximal impulse is not appear displaced. Good pulses equal in all extremities. No edema. Gastrointestinal: Soft. Normal bowel sounds. Skin: Skin turgor is normal. There is no pallor. Musculoskeletal: No kyphosis or scoliosis appreciated. Neurologic: Alert and oriented to person, place, time. Cranial nerves 3-12 appear grossly intact. She has slight weakness of the right upper and lower extremities. Psychiatric: Cooperative. Appropriate mood & affect. Labs Laboratory Tests Test 10/01/21 20:16 10/01/21 20:56 10/02/21 04:38 10/02/21 12:24 Range/Units Troponin I 1.636 *H 1.610 *H <0.028 NG/ML Glucometer 199 H 207 H 70-110 MG/DL White Blood Count 6.5 4.3-11.0 10^3/uL Red Blood Count 3.51 L 3.80-5.11 10^6/uL Hemoglobin 10.5 L 11.5-16.0 g/dL Hematocrit 32 L 35-52 % Mean Corpuscular Volume 90 80-99 fL Mean Corpuscular Hemoglobin 30 25-34 pg Mean Corpuscular Hemoglobin Concent 33 32-36 g/dL Red Cell Distribution Width 12.9 10.0-14.5 % Platelet Count 139 130-400 10^3/uL Mean Platelet Volume 10.6 9.0-12.2 fL Immature Granulocyte % (Auto) 0 % Neutrophils (%) (Auto) 73 42-75 % Lymphocytes (%) (Auto) 16 12-44 % Monocytes (%) (Auto) 8 0-12 % Eosinophils (%) (Auto) 2 0-10 % Basophils (%) (Auto) 1 0-10 % Neutrophils # (Auto) 4.7 1.8-7.8 10^3/uL Lymphocytes # (Auto) 1.0 1.0-4.0 10^3/uL Monocytes # (Auto) 0.5 0.0-1.0 10^3/uL Eosinophils # (Auto) 0.2 0.0-0.3 10^3/uL Basophils # (Auto) 0.1 0.0-0.1 10^3/uL Immature Granulocyte # (Auto) 0.0 0.0-0.1 10^3/uL Sodium Level 135 135-145 MMOL/L Potassium Level 4.5 3.6-5.0 MMOL/L Chloride Level 107 98-107 MMOL/L Carbon Dioxide Level 19 L 21-32 MMOL/L Anion Gap 9 5-14 MMOL/L Blood Urea Nitrogen 17 7-18 MG/DL Creatinine 1.05 0.60-1.30 MG/DL Estimat Glomerular Filtration Rate 56 BUN/Creatinine Ratio 16 Glucose Level 181 H 70-105 MG/DL Calcium Level 8.5 8.5-10.1 MG/DL Corrected Calcium 9.1 8.5-10.1 MG/DL Phosphorus Level 3.5 2.3-4.7 MG/DL Magnesium Level 1.5 L 1.6-2.4 MG/DL Total Bilirubin 0.5 0.1-1.0 MG/DL Aspartate Amino Transf (AST/SGOT) 24 5-34 U/L Alanine Aminotransferase (ALT/SGPT) 26 0-55 U/L Alkaline Phosphatase 97 40-136 U/L Total Protein 5.9 L 6.4-8.2 GM/DL Albumin 3.3 3.2-4.5 GM/DL Triglycerides Level 52 <150 MG/DL Cholesterol Level 129 < 200 MG/DL LDL Cholesterol Direct 69 1-129 MG/DL VLDL Cholesterol 10 5-40 MG/DL HDL Cholesterol 45 40-60 MG/DL Test 10/02/21 15:54 Range/Units Glucometer 185 H 70-110 MG/DL Radiology ECHOCARDIOGRAM (10/02/2021): 1. This is a technically difficult study due to poor image quality secondary to patient's body habitus. Intravenous contrast was administered to enhance image quality. 2. Left ventricle: The cavity size is mildly increased. There is mild concentric hypertrophy. Systolic function is moderately reduced. The estimated ejection fraction is 35-40%. Moderate diffuse hypokinesis with minor regional variation. The left ventricular diastolic function is indeterminate. 3. Right ventricle: Device wire noted in the right heart chambers. 4. Mitral valve: There is mild mitral regurgitation. 5. Tricuspid valve: There is moderate tricuspid regurgitation. 6. Pulmonary arteries: The estimated pulmonary artery systolic pressure is 40 mmHg assuming a right atrial pressure of 5 mmHg. 7. Compared to the report of the study performed on 06/09/2017, there has been a significant decline and the left ventricular systolic function. ECG Impression ECG Comment Atrial flutter with demand ventricular pacing. Diagnosis/Problems Diagnosis/Problems (1) Typical atrial flutter Assessment & Plan: She appears to have developed atrial flutter. Her heart rate is now reasonably controlled with oral beta-tejal. I have discontinued the intravenous Diltiazem. We will continue Xarelto for stroke prophylaxis. (2) Non-ST elevation myocardial infarction (NSTEMI), initial care episode Assessment & Plan: She appears to have suffered an NSTEMI. I recommend further evaluation with a cardiac catheterization which I will plan for tomorrow. Her troponin levels are flat and she is not having chest pain and as such, there is no urgency to performing the procedure today. (3) Complete heart block Assessment & Plan: She has a permanent pacemaker in place that appears to be functioning normally. (4) Cardiomyopathy Assessment & Plan: Her ejection fraction had improved but has now again declined. We will attempt to get her on guideline directed medical therapt as tolerated by her blood pressure and renal function. Her ejection fraction is above the cutoff for recommending a LifeVest. (5) Coronary artery disease with unstable angina pectoris Assessment & Plan: As above. (6) Primary hypertension Assessment & Plan: She is on carvedilol and blood pressure is reasonably controlled. (7) Mixed hyperlipidemia Assessment & Plan: Continue atorvastatin. (8) Stage 3a chronic kidney disease Assessment & Plan: We need to follow her renal function closely. (9) Type 2 diabetes mellitus with complication Assessment & Plan: This is being managed by the hospitalist. (10) History of cerebrovascular accident with residual deficit Assessment & Plan: Continue Xarelto in light of the atrial flutter. (11) Cardiac pacemaker in situ Assessment & Plan: She follows with our outpatient pacemaker monitoring clinic. (12) Obesity Status: Chronic Assessment & Plan: She needs to work on weight loss. CARLITA WOOD JR, MD Oct 02, 2021 08:52
[2021-10-02] MEDS ORDERED: HEParin (CATH LAB) 0 ML IV ONE (10:19)
[2021-10-02] MEDS ORDERED: LIDOCAINE 1% INJ 20 ML VIAL ONE (10:19)
--- NOTE | 2021-10-02 11:53 | Tele-ICU Progress Note ---
Subjective Date Seen by a Provider: Oct 02, 2021 Time Seen by a Provider: 11:52 Subjective/Events-last exam (Tele-ICU Physician , Progress Note ) Available chart/ vitals / labs / Images reviewed Video assessment done using teleICU camera, rest of exam as per RN Discussed with RN Events overnight : Afebrile hemodynamically stable Respiratory - I/O = Drips: Pressors- no Consultants: Hospital course: (10/01) 70 y/o female admitted in ED due to elevated heart rate. DX: Aflutter with rvr A/P Atrial Fibrillation w/RVR - PAF documented on ICD interrogation of 02/16/19 - as per notes 0 . s/p Pacemaker/defib implantation in Apr 2010 - hr controlled ( afyet cardizem IV bolus - gtt was never initiated - AC with lovenox bid - cards coonsulted CAD with a h/o CABG in 2004 - multiple caths and stents after DM -ISS Lines : , (Central Line Necessity Reviewed) Shell: OG: Nutrition: Analgesia: Anxiety/ delirium VTE Prophylaxis: Stress Ulcer Prophylaxis: Plans in collaboration with bedside consultants and IM MDs. Discussed with RN to reach out if any questions or concerns A total of 15 minutes of critical care time was devoted to this patient today, required to treat and/or prevent further deterioration of critical care condition ( as above ) . Sepsis Event Evaluation Height, Weight, BMI Height: 5'4.00" Weight: 191lbs. 0.0oz. [id number]; 30.85 BMI Method:Stated Exam Exam Patient acknowledged, consented, and participated in this virtual visit which was conducted using real time audio/video Vital Signs Date Time Temp Pulse Resp B/P (MAP) Pulse Ox O2 Delivery O2 Flow Rate FiO2 10/02/21 08:00 75 20 140/95 100 Room Air 10/02/21 07:01 73 10/02/21 07:00 74 23 150/90 99 Room Air 10/02/21 06:00 75 13 153/90 100 Room Air 10/02/21 05:00 74 19 134/86 99 Room Air 10/02/21 04:15 72 11 151/93 99 Room Air 10/02/21 04:06 74 10/02/21 04:00 36.2 10/02/21 03:15 74 15 141/88 100 Room Air 10/02/21 02:00 73 12 149/85 99 Room Air 10/02/21 01:00 73 15 131/89 100 Room Air 10/02/21 01:00 73 10/02/21 00:00 74 13 132/79 100 Room Air 10/01/21 23:46 36.0 10/01/21 23:00 73 16 123/82 100 Room Air 10/01/21 22:00 97 19 128/87 98 Room Air 10/01/21 21:00 123 11 124/102 97 Room Air 10/01/21 20:45 124 11 130/119 98 Room Air 10/01/21 20:30 114 20 130/96 100 Room Air 10/01/21 20:15 129 13 100 Room Air 10/01/21 20:07 138 22 149/100 100 Room Air 10/01/21 19:48 35.7 10/01/21 19:45 124 21 139/100 Room Air 10/01/21 19:30 126 19 136/98 Room Air 10/01/21 19:20 95 19 128/91 Room Air 10/01/21 19:00 118 10/01/21 19:00 118 22 Room Air 10/01/21 18:00 108 14 90 10/01/21 17:10 36.6 118 99 21 10/01/21 17:00 110 8 91 10/01/21 16:56 118 10/01/21 16:12 75 19 124/90 99 10/01/21 13:19 36.6 144 18 156/103 (120) 99 I & O 10/02/21 06:59 Intake Total 4736 ml Output Total 3 ml Balance 4733 ml Height & Weight Height: 5'4.00" Weight: 191lbs. 0.0oz. [id number]; 30.85 BMI Method:Stated General Appearance: No Apparent Distress, WD/WN HEENT: PERRL/EOMI, Pharynx Normal Neck: Non Tender, Supple Respiratory: Lungs Clear, Normal Breath Sounds Cardiovascular: Irregularly Irregular, Tachycardia Extremity: Normal Inspection, Normal Range of Motion, Non Tender Neurologic/Psychiatric: Alert, Oriented x3 Skin: Normal Color, Warm/Dry Results Lab Laboratory Tests 10/01/21 13:23 10/02/21 04:38 Assessment/Plan Assessment/Plan 1 JEOVANNY MOE MD Oct 02, 2021 11:53
[2021-10-02] MEDS ORDERED: ACET-2267 PO (12:31)
[2021-10-02] MEDS ORDERED: LATUDA 80MG PO (12:31)
[2021-10-02] MEDS ORDERED: CARV12.53 PO (12:31)
[2021-10-02] MEDS ORDERED: MULT-1136 PO (12:31)
[2021-10-02] MEDS ORDERED: ASPI-1238 PO (12:31)
[2021-10-02] MEDS ORDERED: FLUT16SP22 NSEACH (12:31)
--- NOTE | 2021-10-02 13:36 | History & Physical-Hospitalist ---
LANCENellaINA LION 10/02/21 1336: History of Present Illness HPI/Chief Complaint Melina Rodríguez is a 70 yo female with past medical history of CABG, coronary stents x 3, complete heart block with permanent pacemaker, Afib, CVA, and DM who was admitted to the intensive care unit at [facility] in [place], [place] for A flutter w/ RVR. She was in her usual state of health until yesterday when she began developing increasing dyspnea. She had a slight nonproductive cough. She denies fever or chills. The breathing continued to get worse during the day and she asked her daughter to bring her to the hospital. She was found to be in atrial flutter with a rapid ventricular rate. She was placed on diltiazem infusion and admitted to the intensive care unit. She was also found to have an elevated troponin level. As such, a cardiology consultation was requested. She denies any chest discomfort. Her dyspnea is improved this morning. She denies paroxysmal nocturnal dyspnea or orthopnea. She has some occasional lightheaded spells but denies any syncope. She denies palpitations or lower extremity edema. Today patient is lying comfortably in bed with no complaints or concerns. She denies any SOB or chest pain. Source: patient Exam Limitations: no limitations Date Seen 10/02/21 Time Seen by a Provider: 11:00 Attending Physician [place] PCP Admitting Physician: Lisa Apodaca DO Attending Physician: Lisa Apodaca DO Referring Physician Date of Admission Oct 01, 2021 at 15:52 Home Medications & Allergies Home Medications Reviewed patient Home Medication Reconciliation performed by pharmacy medication reconciliations business office technician and/or nursing. Patients Allergies have been reviewed. Allergies Allergies Coded Allergies Bleach (Sodium Hypochlorite) (Verified Allergy, Unknown, 09/25/16) corn (Unverified Allergy, Unknown, 02/07/10) perfume (Verified Allergy, Unknown, 09/25/16) Past Vtzjbsv-Loseih-Qglpoc Hx Patient Social History Marrital Status: Tobacco Use?: No Smoking Status: Never a Smoker Use of E-Cig and/or Vaping dev: No Substance use?: No Alcohol Use?: No Immunizations Up To Date First/Initial COVID19 Vaccinat: NONE Second COVID19 Vaccination [place]: NONE Tetanus Booster (TDap): Unknown Hepatitis A: No Hepatitis B: No PED Vaccines UTD: No Date of Pneumonia Vaccine: Sep 05, 2016 Seasonal Allergies Seasonal Allergies: No Current Status Communicates: Verbally Primary Language: Spanish Preferred Spoken Language: Spanish Is interpretation needed?: No Past Medical History Surgeries: CABG, Coronary Stent, Defibrillator, Gallbladder, Hysterectomy, Pacemaker Currently Using CPAP: No Currently Using BIPAP: No Atrial Fibrillation, Cardiomyopathy, Coronary Artery Disease, High Cholesterol, Hypertension, Irregular Heartbeat, Peripheral Vascular Stroke SCREW DOWN History: Hysterectomy Renal Failure, UTI-Chronic Hiatal Hernia, Gall Bladder Disease Arthritis Diabetes, Insulin dep, Hypothyroidsim Cataract, Macular Degeneration Loss of Vision: Denies Hearing Impairment: Denies Did You Recieve Any Treatments: No Anxiety, Schizophrenia, Depression Blood Disorders: No Adverse Reaction/Blood Tranf: No Schizophrenia HTN Insulin Dependent DM Family Medical History Reviewed Nursing Family Hx Family history: Diabetes mellitus 19 MOTHER Family history: Hypertension 19 FATHER 19 MOTHER Psychotic disorder G8 BROTHER (MENTAL HEALTH PROBLEMS) No Pertinent Family Hx PSH: -RIGHT CAROTID ENDARTERECTOMY -MULTIPLE CARDIAC CATHS WITH 2 VESSEL CABG IN 2004 AND STENTS X 3--LAST CATH 02/25/19-STENT TO [facility] -PACEMAKER/DEFIBRILLATOR PLACED 04/30/10 FOR ISCHEMIC CARDIOMYOPATHY WITH EF < 20% AND PAROXYSMAL ATRIAL FIBRILLATION/FLUTTER --[facility]. JAK'S DEVICE. -CHOLECYSTECTOMY -HYSTERECTOMY Review of Systems Constitutional: No chills, No diaphoresis, No dizziness, No fever EENTM: No blurred vision Respiratory: see HPI, dyspnea on exertion Cardiovascular: No chest pain, No syncope Gastrointestinal: No abdominal pain, No constipation, No diarrhea Genitourinary: No dysuria, No frequency Musculoskeletal: No back pain Psychiatric/Neurological: Denies Headache Physical Exam Physical Exam Vital Signs Vital Signs - First Documented 10/01/21 10/01/21 13:19 17:10 Temp 36.6 Pulse 144 Resp 18 B/P (MAP) 156/103 (120) Pulse Ox 99 FiO2 21 Capillary Refill : Height, Weight, BMI Height: 5'4.00" Weight: 191lbs. 0.0oz. 86.619037sp; 30.85 BMI Method:Stated General Appearance: No Apparent Distress HEENT: PERRL/EOMI, Moist Mucous Membranes Neck: Normal Inspection, Supple Respiratory: Chest Non Tender, Lungs Clear, Normal Breath Sounds, No Accessory Muscle Use Cardiovascular: Regular Rate, Rhythm, No JVD, No Murmur Gastrointestinal: Non Tender, Soft Back: No CVA Tenderness Extremity: Normal Capillary Refill Neurologic/Psychiatric: Alert, Oriented x3 Skin: Normal Color, Warm/Dry Lymphatic: No Adenopathy Results Results/Procedures Labs Laboratory Tests 10/01/21 13:23 10/02/21 04:38 Patient resulted labs reviewed. Assessment/Plan Admission Diagnosis A flutter with RVR Assessment and Plan 1) A flutter with RVR * Cards following, appreciate recs * Diltiazam started, HR 70s * Echo today 2) Possible NSTEMI * Cardiology following, appreciate recs * Elevated troponin x3 * EKG shows possible lateral ischemia * Started on Rivaroxiban, Atorvastatin, ASA 81, carvedilol * Nitro prn * NPO today * Possible research lab assistant tomorrow 3) DM * SSI Dispo: Stable, will move to fourth floor on Tele for further medical management and work with PT/OT Clinical Quality Measures AMI/AHF: ASA po Prior to arrival: Yes LISA APODACA DO 10/03/21 0544: History of Present Illness HPI/Chief Complaint CC: Atrial flutter with NSTEMI HPI: See above Source: patient Exam Limitations: no limitations Past Fbmsevj-Bzcott-Cfvcay Hx Patient Social History Marrital Status: single Employed/Student: retired Smoking Status: Never a Smoker Past Medical History Surgeries: Pacemaker Atrial Fibrillation Family Medical History Family history: Diabetes mellitus 19 MOTHER Family history: Hypertension 19 FATHER 19 MOTHER Psychotic disorder G8 BROTHER (MENTAL HEALTH PROBLEMS) Review of Systems Constitutional: see HPI Physical Exam Physical Exam General Appearance: No Apparent Distress, Chronically ill Eyes: Right Eye Normal Inspection, Right Eye PERRL HEENT: PERRL/EOMI, Normal ENT Inspection, Pharynx Normal, Moist Mucous Membranes Neck: Full Range of Motion, Normal Inspection, Non Tender Respiratory: Chest Non Tender, Lungs Clear, Normal Breath Sounds, No Accessory Muscle Use, No Respiratory Distress Cardiovascular: Regular Rate, Rhythm, No Edema, No Gallop, No JVD, No Murmur, Normal Peripheral Pulses Gastrointestinal: Normal Bowel Sounds, No Organomegaly, No Pulsatile Mass, Non Tender, Soft Back: Normal Inspection, No CVA Tenderness, No Vertebral Tenderness Extremity: Normal Capillary Refill, Normal Inspection, Normal Range of Motion, Non Tender, No Calf Tenderness, No Pedal Edema Neurologic/Psychiatric: Alert, Oriented x3, No Motor/Sensory Deficits, Normal Mood/Affect Skin: Normal Color, Warm/Dry Lymphatic: No Adenopathy Assessment/Plan Admission Diagnosis Atrial flutter NSTEMI Admission Status: Inpatient Order (span 2 midnights) Reason for Inpatient Admission: NSTEMI with AF RVR Supervisory-Addendum Brief Verification & Attestation Participated in pt care: history, MDM, physical Personally performed: exam, history, MDM, supervision of care Care discussed with: Medical Student Procedures: n/a Results interpretation: Verified all documentation Verification and Attestation of Medical Student E/M Service A medical student performed and documented this service in my presence. I reviewed and verified all information documented by the medical student and made modifications to such information, when appropriate. I personally performed the physical exam and medical decision making. Lisa Apodaca, Oct 03, 2021,05:44 INA YOST Oct 02, 2021 13:36 LISA APODACA DO Oct 03, 2021 05:44
--- NOTE | 2021-10-02 13:48 | Occupational Therapy Eval ---
OT Evaluation-General/PLF Medical Diagnosis Admission Date Oct 01, 2021 at 15:52 Medical Diagnosis: A-flutter w/RVR Onset Date: Oct 01, 2021 Therapy Diagnosis Therapy Diagnosis: reduced endurance/strength Height/Weight Height (Feet): 5 Height (Inches): 4.00 Weight (Pounds): 191 Weight (Ounces): 0.0 Precautions Precautions/Isolations: Standard Precautions Referral Referral Reason: Evaluation/Treatment Medical History Pertinent Medical History: Arthritis, CABG, CAD, CVA, DM, HTN, Macular Degenertion, OA Additional Medical History Schizophrenia Current History Pt arrived to ER with c/o weakness and difficulty walking. Found to have A- flutter with RVR. Pt has history of CVA with R sided residual weakness. She lives with her spouse in a single story home. She receives assist with donning of R sock but all other adls are modified independent. Pt states she shares IADL responsibilities with her spouse. She uses a walker at baseline. Reviewed History: Yes Social History Home: Single Level Current Living Status: Spouse Entry Into Home: Level Entry ADL-Prior Level of Function SCALE: Activities may be completed with or without assistive devices. 8-Kbqqxuggea-ambbahe completes the activity by him/herself with no assistance from a helper. 5-Set-up or Clean-up Assistance-helper sets up or cleans up; patient completes activity. [place] assists only prior to or following the activity. 4-Supervision or Touching Assistance-helper provides verbal cues and/or touching/steadying and/or contact guard assistance as patient completes activit y. Assistance may be provided throughout the activity or intermittently. 3-Partial/Moderate Assistance-helper does LESS THAN HALF the effort. [place] lifts, holds or supports trunk or limbs, but provides less than half the effort. 2-Substantial/Maximal Assistance-helper does MORE THAN HALF the effort. [place] lifts or holds trunk or limbs and provides more than half the effort. 9-Pyuelmoli-gneddm does ALL the effort. Patient does none of the effort to complete the activity. Or, the assistance of 2 or more helpers is required for the patient to complete the activity. If activity was not attempted, code reason: 7-Patient Refused. 9-Not Applicable-not attempted and the patient did not perform the activity before the current illness, exacerbation or injury. 10-Not Attempted due to Environmental Limitations-(lack of equipment, weather restraints, etc.). 88-Not Attempted due to Medical Conditions or Safety Concerns. Self Care: Needed Some Help Functional Cognition: Needed Some Help DME/Equipment: Grab Bars, Shower, Tub/Shower OT Current Status Subjective Pt denies pain, agreeable to evaluation. Appearance Pt returned to sitting in recliner, all needs within reach at therapy departure. Mental Status/Objective Patient Orientation: Person, Place, Situation Attachments: IV, Telemetry Current Glasses/Contacts: Yes Hand Dominance: Right Upper Extremity ROM R shoulder: ~75 degrees AROM, ~165 degrees PROM L shoulder: ~80 degrees AROM, ~155 degrees PROM Elbow-distally WNL Upper Extremity Strength Bilateral shoulder: 2+/5 Bilateral elbow: 3/5 Fair award clerk ADL-Treatment On/Off Footwear (QC): 3 Toileting Hygiene (QC): 4 Pt sitting in recliner at OT arrival. She was able to don/doff L sock without assistance but was dependent to don R secondary to poor flexibility and LE weakness. She reports this is baseline. Sit<>stand: CGA. She ambulated ~100 feet with SBA-CGA and use of walker. Poor foot clearance notable with L foot despite R being weaker. She was able to demonstrate clothing management over hips with zero UE support, close supervision for safety with balance. Anticipate no physical assistance needed with toileting tasks. Pt appears to be close to baseline with adls but could benefit from short term OT for safety, energy conservation, and strengthening. Education OT Patient Education: Correct positioning, Energy conservation, Modified ADL techniques, Purpose of tx/functional activities, Safety issues, Transfer te jonnathan Teaching Recipient: Patient Teaching Methods: Demonstration, Discussion Response to Teaching: Verbalize Understanding, Reinforcement Needed OT [employer] Cutter Goals Assisted Goals Time Frame: Oct 09, 2021 Oral Hygiene (QC): 5 Toileting Hygiene (QC): 6 Shower/Bathe Self (QC): 4 Upper Body Dressing (QC): 4 Lower Body Dressing (QC): 5 1=Demonstrate adherence to instructed precautions during ADL tasks. 2=Patient will verbalize/demonstrate understanding of assistive devices/modifications for ADL. 3=Patient will improve strength/tolerance for activity to enable patient to perform ADL's. OT Education/Plan Problem List/Assessment Assessment: Decreased Activ Tolerance, Decreased Safety Aware, Decreased UE Strength, Impaired Funct Balance, Impaired I ADL's, Impaired Self-Care Skills, Restricted Funct UE ROM Discharge Recommendations Plan/Recommendations: Continue POC Treatment Plan/Plan of Care Treatment,Training & Education: Yes Patient would benefit from OT for education, treatment and training to promote independence in ADL's, mobility, safety and/or upper extremity function for ADL's. Plan of Care: ADL Retraining, Functional Mobility, Group Exercise/Act as Ind, U E Funct Exercise/Act, UE Neuromus Re-Ed/Coord Treatment Duration: Oct 09, 2021 Frequency: 3 times per week (3-5x/week) Estimated Hrs Per Day: .25 hour per day Agreement: Yes Rehab Potential: Fair Time/GCodes Start Time: 13:23 Stop Time: 13:39 Total Time Billed (hr/min): 16 Billed Treatment Time 1 visit Malorie Mullins OT Oct 02, 2021 13:47
--- NOTE | 2021-10-02 13:50 | Physical Therapy Evaluation ---
PT Evaluation-General Medical Diagnosis Admission Date Oct 01, 2021 at 15:52 Medical Diagnosis: afib with RVR Onset Date: Oct 01, 2021 Therapy Diagnosis Therapy Diagnosis: impaired mobility, strength Height/Weight Height (Feet): 5 Height (Inches): 4.00 Weight (Pounds): 191 Weight (Ounces): 0.0 Precautions Precautions/Isolations: Standard Precautions Referral Physician: Lisa James DO Reason for Referral: Evaluation/Treatment Medical History Pertinent Medical History: Arthritis, CABG, CAD, CVA, DM, HTN, Macular Degenertion, OA Additional Medical History Past Medical History Surgeries: CABG, Coronary Stent, Defibrillator, Gallbladder, Hysterectomy, Pacemaker Currently Using CPAP: No Currently Using BIPAP: No Atrial Fibrillation, Cardiomyopathy, Coronary Artery Disease, High Cholesterol, Hypertension, Irregular Heartbeat, Peripheral Vascular Stroke [employer] History: Hysterectomy Renal Failure, UTI-Chronic Hiatal Hernia, Gall Bladder Disease Arthritis Diabetes, Insulin dep, Hypothyroidsim Cataract, Macular Degeneration Loss of Vision: Denies Hearing Impairment: Denies Did You Recieve Any Treatments: No Anxiety, Schizophrenia, Depression Blood Disorders: No Adverse Reaction/Blood Tranf: No Reviewed History: Yes Social History Home: Single Level Current Living Status: Spouse Entry Into Home: Level Entry Prior Prior Level of Function SCALE: Activities may be completed with or without assistive devices. 7-Frgimrhbqm-eanvqku completes the activity by him/herself with no assistance from a helper. 5-Set-up or Clean-up Assistance-helper sets up or cleans up; patient completes activity. [place] assists only prior to or following the activity. 4-Supervision or Touching Assistance-helper provides verbal cues and/or touching/steadying and/or contact guard assistance as patient completes activity. Assistance may be provided throughout the activity or intermittently. 3-Partial/Moderate Assistance-helper does LESS THAN HALF the effort. [place] lifts, holds or supports trunk or limbs, but provides less than half the effort. 2-Substantial/Maximal Assistance-helper does MORE THAN HALF the effort. [place] lifts or holds trunk or limbs and provides more than half the effort. 9-Fjigfcsjp-dzceji does ALL the effort. Patient does none of the effort to complete the activity. Or, the assistance of 2 or more helpers is required for the patient to complete the activity. If activity was not attempted, code reason: 7-Patient Refused. 9-Not Applicable-not attempted and the patient did not perform the activity before the current illness, exacerbation or injury. 10-Not Attempted due to Environmental Limitations-(lack of equipment, weather restraints, etc.). 88-Not Attempted due to Medical Conditions or Safety Concerns. Bed Mobility: 6 Transfers (B,C,W/C): 6 Gait: 6 Indoor Mobility (Ambulation): Independent Prior Devices Use: Walker PT Evaluation-Current Subjective Patient in recliner pre tx, agrees to PT, has no complaints of pain. Pt/Family Goals to be independent at home Objective Patient Orientation: Person, Place, Situation ROM/Strength ROM Lower Extremities WNL, has general muscle tightness in the right leg Strength Lower Extremities LLE (hip flexion 3+/5, knee flexion 4/5, knee extension 4/5, dorsiflexion 4+/5), RLE (hip flexion 2/5, knee flexion 3+/5, knee extension 4/5, dorsiflexion 4/5) Sensory Hearing: Functional Sensation Right Lower Extremit: Intact Sensation Left Lower Extremity: Intact Sensation Lower Extremities Patient seems to have intact light touch sensation but she says she does have some numbness in both feet. Transfers Sit to Stand (QC): 4 Chair/Pwp-az-Ltiby Xfer(QC): 4 Gait Does the Patient Walk?: Yes Mode of Locomotion: Walk Anticipated Mode of Locomotion: Walk Walk 10 feet (QC): 4 Walk 50 ft with 2 Turns(QC): 4 Distance: 100' Gait Assistive Device: FWW Comments/Gait Description slow but steady ambulation Balance Sitting Static: Normal Sitting Dynamic: Normal Standing Static: Good Standing Dynamic: Good Treatment BLE seated exercises x20 (AP, LAQ) Assessment/Needs Patient in recliner post tx with nurse call, phone, tray, all needs met. Rehab Potential: Fair PT Half-Way Goals Button Riveter Goals PT Button Riveter Goals Time Frame: Oct 09, 2021 Roll Left & Right (QC): 6 Sit to Lying (QC): 6 Lying-Sitting on Side/Bed(QC): 6 Sit to Stand (QC): 4 (SBA) Chair/Vfh-vr-Cueyc Xfer(QC): 4 (SBA) Walk 10 feet (QC): 4 (SBA) Walk 50ft with 2 Turns (QC): 4 (SBA) Walk 150 ft (QC): 4 (SBA) PT Plan Problem List Problem List: Activity Tolerance, Functional Strength, Safety, Balance, Gait, Transfer, Bed Mobility, ROM Treatment/Plan Treatment Plan: Continue Plan of Care Treatment Plan: Bed Mobility, Education, Functional Activity Cor[place], Functional Strength, Gait, Safety, Therapeutic Exercise, Transfers Treatment Duration: Oct 09, 2021 Frequency: 6 times per week Estimated Hrs Per Day: .25 hour per day Patient and/or Family Agrees t: Yes Safety Risks/Education Patient Education: Gait Training, Transfer Techniques, Correct Positioning, Safety Issues Teaching Recipient: Patient Teaching Methods: Demonstration, Discussion Response to Teaching: Reinforcement Needed Discharge Recommendations Plan Patient will perform bed mobility and transfer training, balance and endurance training, functional strengthening, stair training, gait training, and education, to improve functional mobility and independence at home. Therapy Discharge Recommendati: Scheduled Assistance, Home & Family, Post Acute PT Time/GCodes Time In: 1324 Time Out: 1338 Total Billed Treatment Time: 14 Total Billed Treatment 1 visit JOHNY HUNG PT Oct 02, 2021 13:50
[2021-10-02] MEDS: RIVAROXABAN 15 MG TABLET (XARELTO) PO SCH (17:37)
[2021-10-02 19:13] VITALS: BP 145/90
[2021-10-03] VITALS (16 sets, daily range): BP systolic 102–129; BP diastolic 66–86
[2021-10-03] MEDS: inSUlin ASPART (NovoLOG) 1 UNIT/0.01 ML (CHARGE PER UNIT) SC SCH ×4 (05:28→20:03)
[2021-10-03] MEDS ORDERED: LIDOCAINE 1% INJ 20 ML VIAL ONE (06:54)
[2021-10-03] MEDS ORDERED: HEParin (CATH LAB) 2,000 ML IV ONE (06:54)
[2021-10-03] MEDS: DOCUSATE SODIUM 100 MG (COLACE) CAP PO SCH ×2 (08:08→19:54)
[2021-10-03] MEDS: ASPIRIN E.C. 81 MG (ECOTRIN) TAB PO SCH (08:08)
[2021-10-03] MEDS: SENNOSIDES 8.6 MG (SENOKOT) TAB PO SCH ×2 (08:08→19:54)
[2021-10-03] MEDS ORDERED: NS IV 1000 ML 1,000 ML IV ONE (09:00)
[2021-10-03 09:26] LABS: BASOPHILS % (AUTO) 1 % (0-10); HEMOGLOBIN 10.3 g/dL (11.5-16.0)
[2021-10-03 09:28] LABS: EOSINOPHILS # (AUTO) 0.2 10^3/uL (0.0-0.3); EOSINOPHILS % (AUTO) 3 % (0-10); HEMATOCRIT 31 % (35-52); LYMPHOCYTES # (AUTO) 0.8 10^3/uL (1.0-4.0); LYMPHOCYTES % (AUTO) 11 % (12-44); MEAN CORPUSCULAR HEMOGLOBIN 30 pg (25-34); MEAN CORPUSCULAR HGB CONC 33 g/dL (32-36); MEAN CORPUSCULAR VOLUME 89 fL (80-99); MEAN PLATELET VOLUME 10.5 fL (9.0-12.2); MONOCYTES # (AUTO) 0.5 10^3/uL (0.0-1.0); MONOCYTES % (AUTO) 6 % (0-12); NEUTROPHILS # (AUTO) 5.9 10^3/uL (1.8-7.8); NEUTROPHILS % (AUTO) 80 % (42-75); PLATELET COUNT 128 10^3/uL (130-400); WHITE BLOOD COUNT 7.4 10^3/uL (4.3-11.0)
[2021-10-03] MEDS ORDERED: fentaNYL INJ 100 MCG/2 ML AMP ONE ×2 (09:33→11:07)
[2021-10-03] MEDS ORDERED: NITRO DRIP 25000 MCG/D5W 0 ML IV ONE (09:33)
[2021-10-03] MEDS ORDERED: MIDAZOLAM 5 MG/5 ML (VERSED) VIAL ONE ×2 (09:33→11:07)
[2021-10-03] MEDS ORDERED: HEParin 1000 UNIT/ML (10ML VIAL) FOR BOLUS ONE ×2 (09:33→11:32)
[2021-10-03] MEDS ORDERED: VERAPAMIL 5 MG/2 ML (CALAN) VIAL IV ONE ×2 (09:33→11:32)
[2021-10-03 09:45] LABS: ALBUMIN 3.2 GM/DL (3.2-4.5); BILIRUBIN,TOTAL 0.7 MG/DL (0.1-1.0); CALCIUM 8.4 MG/DL (8.5-10.1); CREATININE SERUM 1.05 MG/DL (0.60-1.30); MAGNESIUM 1.4 MG/DL (1.6-2.4); POTASSIUM 5.2 MMOL/L (3.6-5.0); TOTAL PROTEIN 5.8 GM/DL (6.4-8.2)
--- NOTE | 2021-10-03 09:49 | Physical Therapy Daily Note ---
PT Daily Note-Current Subjective Patient is very agreeable to PT. Mental Status Patient Orientation: Normal For Age Transfers SCALE: Activities may be completed with or without assistive devices. 1-Iasxslrhze-cwivsfu completes the activity by him/herself with no assistance from a helper. 5-Set-up or Clean-up Assistance-helper sets up or cleans up; patient completes activity. [place] assists only prior to or following the activity. 4-Supervision or Touching Assistance-helper provides verbal cues and/or touching/steadying and/or contact guard assistance as patient completes activity. Assistance may be provided throughout the activity or intermittently. 3-Partial/Moderate Assistance-helper does LESS THAN HALF the effort. [place] lifts, holds or supports trunk or limbs, but provides less than half the effort. 2-Substantial/Maximal Assistance-helper does MORE THAN HALF the effort. [place] lifts or holds trunk or limbs and provides more than half the effort. 8-Wlpicooit-iwarhp does ALL the effort. Patient does none of the effort to complete the activity. Or, the assistance of 2 or more helpers is required for the patient to complete the activity. If activity was not attempted, code reason: 7-Patient Refused. 9-Not Applicable-not attempted and the patient did not perform the activity before the current illness, exacerbation or injury. 10-Not Attempted due to Environmental Limitations-(lack of equipment, weather restraints, etc.). 88-Not Attempted due to Medical Conditions or Safety Concerns. Lying to Sitting/Side of Bed(Q: 6 Sit to Stand (QC): 4 Chair/Nwz-rv-Jnyyk Xfer(QC): 4 Gait Training Distance: 250' Walk 10 feet (QC): 4 Walk 50 ft with 2 Turns(QC): 4 Walk 150 ft (QC): 4 Gait Assistive Device: FWW extended UE's with FWW use/functional gait sequence Assessment Patient up in recliner with needs met. Patient instructed to utilize call light for assistance. Patient tolerated treatment well. 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 Dyeing Machine Operator Goals Continuous Yarn Dyeing Machine Operator Goals 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 Dyeing Machine Operator Goals Time Frame: Oct 09, 2021 Roll Left & Right (QC): 6 Sit to Lying (QC): 6 Lying-Sitting on Side/Bed(QC): 6 Sit to Stand (QC): 4 (SBA) Chair/Ofj-jd-Dywqi Xfer(QC): 4 (SBA) Walk 10 feet (QC): 4 (SBA) Walk 50ft with 2 Turns (QC): 4 (SBA) Walk 150 ft (QC): 4 (SBA) PT Plan Treatment/Plan Treatment Plan: Continue Plan of Care Treatment Plan: Bed Mobility, Education, Functional Activity Corine, Functional Strength, Gait, Safety, Therapeutic Exercise, Transfers Treatment Duration: Oct 09, 2021 Frequency: 6 times per week Estimated Hrs Per Day: .25 hour per day Patient and/or Family Agrees t: Yes Time/GCodes Time In: 922 Time Out: 933 Total Billed Treatment Time: 11 Total Billed Treatment 1 visit FA 11 min DANNY PAYNE PT Oct 03, 2021 09:49
--- NOTE | 2021-10-03 10:36 | Occupational Ther Daily Note ---
OT Current Status-Daily Note Subjective Pt denies pain, requests to use toilet. Appearance Pt returned to sitting in recliner, all needs within reach. Mental Status/Objective Patient Orientation: Person, Place, Situation Attachments: Telemetry ADL-Treatment Therapy Code Descriptions/Definitions Functional [place] Measure: 0=Not Assessed/NA 4=Minimal Assistance 1=Total Assistance 5=Supervision or Setup 2=Maximal Assistance 6=Modified [place] 3=Moderate Assistance 7=Complete IndependenceSCALE: Activities may be completed with or without assistive devices. 3-Efjvqazmtt-xrtueww completes the activity by him/herself with no assistance from a helper. 5-Set-up or Clean-up Assistance-helper sets up or cleans up; patient completes activity. [place] assists only prior to or following the activity. 4-Supervision or Touching Assistance-helper provides verbal cues and/or touching/steadying and/or contact guard assistance as patient completes activity. Assistance may be provided throughout the activity or intermittently. 3-Partial/Moderate Assistance-helper does LESS THAN HALF the effort. [place] lifts, holds or supports trunk or limbs, but provides less than half the effort. 2-Substantial/Maximal Assistance-helper does MORE THAN HALF the effort. [place] lifts or holds trunk or limbs and provides more than half the effort. 0-Pxqbmybxt-axjvpd does ALL the effort. Patient does none of the effort to complete the activity. Or, the assistance of 2 or more helpers is required for the patient to complete the activity. If activity was not attempted, code reason: 7-Patient Refused. 9-Not Applicable-not attempted and the patient did not perform the activity before the current illness, exacerbation or injury. 10-Not Attempted due to Environmental Limitations-(lack of equipment, weather restraints, etc.). 88-Not Attempted due to Medical Conditions or Safety Concerns. Oral Hygiene (QC): 6 Toileting Hygiene (QC): 6 Toilet Transfer (QC): 6 Sit<>stand: Indep. Pt ambulated to/from bathroom with use of walker and supervision for safety. No LOB observed. She performed all steps of toileting, including transfer without assist or safety concerns. She stood independently at sink for hand hygiene, oral care, and face washing. Appears to tolerate well. Pt reports that she feels she is back at baseline for self cares (she receives assist with donning R sock only). No further skilled OT services warranted at this time. Education OT Patient Education: Energy conservation, Progress toward Goal/Update tx plan Teaching Recipient: Patient Teaching Methods: Discussion Response to Teaching: Verbalize Understanding, Return Demonstration OT Fpc Goals [place] Weapon System Operator Goals Time Frame: Oct 09, 2021 Oral Hygiene (QC): 5 Toileting Hygiene (QC): 6 Shower/Bathe Self (QC): 4 Upper Body Dressing (QC): 4 Lower Body Dressing (QC): 5 1=Demonstrate adherence to instructed precautions during ADL tasks. 2=Patient will verbalize/demonstrate understanding of assistive devices/modifications for ADL. 3=Patient will improve strength/tolerance for activity to enable patient to perform ADL's. OT Education/Plan Problem List/Assessment Assessment: No Skilled OT Needs ID'd Discharge Recommendations Plan/Recommendations: Discharge/Goals Met Therapy Discharge Recommendati: Home & Family Treatment Plan/Plan of Care Patient would benefit from OT for education, treatment and training to promote independence in ADL's, mobility, safety and/or upper extremity function for ADL's. Plan of Care: ADL Retraining, Functional Mobility, Group Exercise/Act as Ind, UE Funct Exercise/Act, UE Neuromus Re-Ed/Coord Treatment Duration: Oct 09, 2021 Frequency: 3 times per week (3-5x/week) Estimated Hrs Per Day: .25 hour per day Agreement: Yes Rehab Potential: Fair Time/GCodes Start Time: 10:07 Stop Time: 10:19 Total Time Billed (hr/min): 12 Billed Treatment Time 1 visit ADL Malorie Chiu OT Oct 03, 2021 10:36
[2021-10-03] MEDS ORDERED: NITRO DRIP 25000 MCG/D5W 250 ML IV ONE (11:32)
[2021-10-03] MEDS ORDERED: NS IV 1000 ML 1,000 ML ONE (11:36)
--- NOTE | 2021-10-03 11:41 | Pre-Op Note & Conscious Sedat ---
Pre-Operative Progress Note H&P Reviewed The H&P was reviewed, patient examined and no changes noted. Date H&P Reviewed: Oct 03, 2021 Time H&P Reviewed: 11:40 Pre-Op Diagnosis: Non-ST elevation myocardial infarction and cardiomyopathy Given her current clinical status, she is considered moderately frail. She has no history of heart failure. Conscious Sedation Pre-Proced Time 11:41 ASA Score 3 For ASA 3 and 4: Consider anesthesia and medical clearance. Also, for patients with a history of failed moderate sedation consider anesthesia. Airway Lungs Heart ASA score ASA 1: a normal healthy patient ASA 2: a patient with a mild systemic disease (mid diabetes, controlled hypertension, obesity ASA 3: a patient with a severe systemic disease that limits activity (angina, COPD, prior Myocardial infarction) ASA 4: a patient with an incapacitating disease that is a constant threat to life (CHF, renal failure) ASA 5: a moribund patient not expected to survive 24 hrs. (ruptured aneurysm) ASA 6: a declared brain- patient whose organs are being harvested. For emergent operations, add the letter E after the classification Mallampati Classification Grade 2 Sedation Plan Analgesia, Amnesia, Plan communicated to team members, Discussed options with patient/fam, Discussed risks with patient/fam The patient is an appropriate candidate to undergo the planned procedure, sedation, and anesthesia. The patient immediately re-assessed prior to indication. CARLITA WOOD JR, MD Oct 03, 2021 11:41
--- NOTE | 2021-10-03 13:08 | Cardiac Cath Report ---
CARDIAC CATHETERIZATION DATE OF PROCEDURE: 10/03/2021 INDICATION: Non-ST elevation myocardial infarction and ischemic cardiomyopathy. HISTORY: The patient is a 70 year old female known history of coronary artery disease with previous coronary artery bypass surgery with a left internal mammary artery graft to the left anterior descending coronary artery and a saphenous vein graft to an obtuse marginal branch followed by a stent to the mid right coronary artery in 2019. She presented to the hospital with dyspnea. She had elevated troponin levels consistent with a non-ST elevation myocardial infarction. She underwent an echocardiogram that showed moderate left ventricular systolic dysfunction. In light of these findings, she is now referred for further evaluation with a cardiac catheterization. Given her current clinical status, she is considered moderately frail. She does not have a history of heart failure. PROCEDURES PERFORMED: 1. Left heart catheterization with hemodynamic measurements. 2. Diagnostic [place] coronary angiography. 3. Diagnostic bypass graft angiography. 4. Right radial artery angiography: PROCEDURE DESCRIPTION: After informed consent and in the fasting state, left heart catheterization was performed through the left radial artery utilizing a 6 [place] system by percutaneous approach. Standard 5 [place] Frantz catheters and a 5 [place] AR mod catheter were utilized for the diagnostic portion of the procedure. There was some difficulty passing the standard J-tip guidewire from the right radial artery into the right brachial artery. The wire was removed. The 5 [place] JR4 catheter was positioned in the proximal segment of the right radial artery and an angiogram was performed. This was then used to make a road map to pass through the area with a [place] wire. All catheters were exchanged over a guidewire. Following the procedure, a vascular band was applied to the radial artery access site and the sheath was removed with good hemostasis. RESULTS: HEMODYNAMICS: The aortic pressure was 111/64 mmHg. The left ventricular pressure was 118/0 mmHg with a left ventricular end-diastolic pressure 22 mmHg. There was no significant pressure gradient upon pullback across the aortic valve. CORONARY ANGIOGRAPHY: The coronary arteries were calcified. Left main coronary artery: There was a 50% stenosis in the distal segment. Left anterior descending coronary artery: Totally occluded proximally with faint bridging collaterals to some small branches. Left circumflex coronary artery: Totally occluded proximally with some faint bridging collaterals to some small branches. Right coronary artery: Dominant and there was a stent in the distal segment which contained moderate neointimal hyperplasia in the distal segment of the st ent at approximately 50% stenotic with RAMONITA-3 flow. There was another 50% stenosis in the distal vessel just proximal to the bifurcation with RAMONITA-3 flow. GRAFT ANGIOGRAPHY: Left internal mammary artery graft to left anterior descending coronary artery: This was very small in caliber and supplied a very small distal left anterior descending coronary artery that was occluded before it reached the apex with RAMONITA-0 flow. This was a new finding compared to her study from 2019. Saphenous vein graft to obtuse marginal branch: Widely patent. This supplied a small bifurcating obtuse marginal branch which contained a 90% stenosis in the superior branch with RAMONITA-1 flow but these branches were no more than 1.5 mm in maximal diameter. RIGHT RADIAL ARTERY ANGIOGRAPHY: As above, due to some difficulty passing a standard J-wire from the right radial artery into the right brachial artery, a right radial angiogram was performed through the 5 [place] JR4 catheter. This demonstrated the right radial artery to be free of significant disease but somewhat small in caliber. The angiogram was used as a roadmap to then be able to successfully cross through the area with a [place] guidewire. IMPRESSION: 1. Elevated left ventricular end-diastolic pressure. 2. Severe two-vessel coronary artery disease involving the left coronary system as outlined above. 3. Patent stent in the distal right coronary artery with moderate neointimal hyperplasia in the distal segment of the stent at approximately 50% stenotic with another 50% stenosis in the distal vessel just proximal to the bifurcation with RAMONITA-3 flow. 4. Patent left internal mammary artery graft to the left anterior descending coronary artery but the graft is small and the distal left anterior descending coronary artery is extremely small and then occluded before it reaches the apex. 5. Patent saphenous vein graft to obtuse marginal branch but this is also a small [place] vessel that would be too small for intervention. 6. The right radial artery is somewhat small in caliber but free of significant disease. 7. The patient is known to have moderate left ventricular systolic dysfunction with an estimated ejection fraction of 35-40% by echocardiogram performed on 10/02/2021. 8. The patient's guideline directed medical therapy for the ischemic cardiomyopathy will be optimized. There are no targets for coronary revascularization. Certain portions of this document may have been dictated utilizing voice recognition technology. Inherent to this technology, typographical and gramma tical errors may exist. As much as I am diligent to identify and correct these mistakes, some errors may remain in the document. CARLITA WOOD JR, MD Oct 03, 2021 13:08
--- NOTE | 2021-10-03 13:40 | Progress Note - Hospitalist ---
INA YOST 10/03/21 1340: Subjective HPI/CC On Admission Date Seen by Provider: Oct 03, 2021 Time Seen by Provider: 11:00 CC: Atrial flutter with NSTEMI HPI: See above Subjective/Events-last exam Patient reports no acute events overnight. She continues to be asymptomatic with no chest pain, palpitations, or difficulty breathing. Review of Systems General: No Chills, No Night Sweats HEENT: No Head Aches, No Visual Changes Pulmonary: No Dyspnea, No Cough Cardiovascular: No: Chest Pain, Palpitations Gastrointestinal: No: Nausea, Vomiting, Abdominal Pain Genitourinary: No Dysuria, No Frequency Neurological: No: Confusion Objective Exam Vital Signs Vital Signs Date Time Temp Pulse Resp B/P (MAP) Pulse Ox O2 Delivery O2 Flow Rate FiO2 10/03/21 13:00 70 10/03/21 11:13 36.4 18 118/84 (95) 99 Room Air 10/01/21 17:10 21 Capillary Refill : General Appearance: No Apparent Distress HEENT: Moist Mucous Membranes Neck: Normal Inspection, Non Tender, Supple Respiratory: Chest Non Tender, Lungs Clear, Normal Breath Sounds, No Accessory Muscle Use Cardiovascular: No JVD, No Murmur, Tachycardia, Other (Irregular rhythm) Gastrointestinal: Normal Bowel Sounds, Non Tender, Soft Back: Normal Inspection Extremity: Normal Capillary Refill Neurologic/Psychiatric: Alert, Oriented x3 Skin: Normal Color, Warm/Dry Lymphatic: No Adenopathy Results/Procedures Lab Laboratory Tests 10/03/21 09:10 Patient resulted labs reviewed. 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 3) DM * SSI Dispo: Stable, continue care on fourth floor on Tele for further medical management and work with PT/OT Clinical Quality Measures AMI/AHF: ASA po Prior to arrival: Yes LISA APODACA DO 7/28/22 2055: Subjective Subjective/Events-last exam Patient underwent cardiac catheterization Supportive care Monitor closely Objective Exam General Appearance: No Apparent Distress, WD/WN, Chronically ill Respiratory: Lungs Clear, Normal Breath Sounds Cardiovascular: Regular Rate, Rhythm, Irregularly Irregular, Tachycardia Assessment/Plan Assessment and Plan Assess & Plan/Chief Complaint Cardiac cath today Supervisory-Addendum Brief Verification & Attestation Participated in pt care: history, MDM, physical Personally performed: exam, history, MDM, supervision of care Care discussed with: Medical Student Procedures: n/a Results interpretation: Verified all documentation Verification and Attestation of Medical Student E/M Service A medical student performed and documented this service in my presence. I reviewed and verified all information documented by the medical student and made modifications to such information, when appropriate. I personally performed the physical exam and medical decision making. Lisa Apodaca, Oct 03, 2021,20:54 INA YOST Oct 03, 2021 13:40 LISA APODACA DO Oct 03, 2021 20:55
[2021-10-03] MEDS: NS IV 1000 ML 300 ML IV SCH ×2 (14:03→15:37)
[2021-10-03] MEDS: RIVAROXABAN 15 MG TABLET (XARELTO) PO SCH (16:53)
[2021-10-04] VITALS (7 sets, daily range): BP systolic 120–161; BP diastolic 80–102
[2021-10-04 05:58] LABS: BASOPHILS # (AUTO) 0.1 10^3/uL (0.0-0.1); BASOPHILS % (AUTO) 1 % (0-10); EOSINOPHILS # (AUTO) 0.2 10^3/uL (0.0-0.3); EOSINOPHILS % (AUTO) 3 % (0-10); HEMATOCRIT 33 % (35-52); HEMOGLOBIN 11.2 g/dL (11.5-16.0); LYMPHOCYTES # (AUTO) 1.2 10^3/uL (1.0-4.0); LYMPHOCYTES % (AUTO) 16 % (12-44); MEAN CORPUSCULAR HEMOGLOBIN 30 pg (25-34); MEAN CORPUSCULAR HGB CONC 34 g/dL (32-36); MEAN CORPUSCULAR VOLUME 88 fL (80-99); MEAN PLATELET VOLUME 9.6 fL (9.0-12.2); MONOCYTES # (AUTO) 0.5 10^3/uL (0.0-1.0); MONOCYTES % (AUTO) 6 % (0-12); NEUTROPHILS # (AUTO) 5.6 10^3/uL (1.8-7.8); NEUTROPHILS % (AUTO) 74 % (42-75); PLATELET COUNT 117 10^3/uL (130-400); WHITE BLOOD COUNT 7.5 10^3/uL (4.3-11.0)
[2021-10-04 06:19] LABS: ALBUMIN 3.4 GM/DL (3.2-4.5); BILIRUBIN,TOTAL 0.6 MG/DL (0.1-1.0); CALCIUM 8.8 MG/DL (8.5-10.1); CREATININE SERUM 1.11 MG/DL (0.60-1.30); MAGNESIUM 1.5 MG/DL (1.6-2.4); POTASSIUM 5.3 MMOL/L (3.6-5.0); TOTAL PROTEIN 6.3 GM/DL (6.4-8.2)
[2021-10-04] MEDS: inSUlin ASPART (NovoLOG) 1 UNIT/0.01 ML (CHARGE PER UNIT) SC SCH ×4 (06:35→21:11)
--- NOTE | 2021-10-04 08:18 | Cardiology Progress Note ---
Progress Note-Cardiology Events since last exam Date Seen by Provider: Oct 04, 2021 Time Seen by Provider: 08:13 Events since last exam I am following her due to NSTEMI, atrial flutter and cardiomyopathy. She was sitting up in bed. She is feeling good this morning. She denies chest discomfort. She denies dyspnea at rest. She denies palpitations, syncope, or ankle edema. Certain portions of this document may have been dictated utilizing voice recognition technology. Inherent to this technology, typographical and grammatical errors may exist. As much as I am diligent to identify and correct these mistakes, some errors may remain in the document. Vitals Last set of Vitals Signs Vital Signs 10/01/21 10/04/21 17:10 07:49 Temp 36.7 Pulse 134 Resp 18 B/P (MAP) 161/93 (115) Pulse Ox 98 O2 Delivery Room Air FiO2 21 Labs Labs Laboratory Tests 10/03/21 09:10 10/04/21 05:52 Exam Vital Signs Vital Signs Date Time Temp Pulse Resp B/P (MAP) Pulse Ox O2 Delivery O2 Flow Rate FiO2 10/04/21 07:49 36.7 134 18 161/93 (115) 98 Room Air 10/01/21 17:10 21 Physical Exam General: Alert. No acute distress. She is obese. Eye: No xanthelasma. HENT: Normocephalic. Neck: Jugular venous pressure does not appear elevated. Respiratory: Lungs are clear to auscultation. Respirations are non-labored. Katie th sounds are equal. Symmetrical chest wall expansion. Cardiovascular: Tachycardia with a regular rhythm. No murmur. No gallop. Trace bilateral pretibial edema. Gastrointestinal: Soft. Normal bowel sounds. Skin: Warm. Dry. Neurologic: Alert and oriented to person, place, time. Cranial nerves 3-11 g rossly intact. Psychiatric: Cooperative. Appropriate mood & affect. Labs Laboratory Tests Test 10/03/21 09:10 10/03/21 11:00 10/03/21 15:34 10/03/21 19:59 Range/Units White Blood Count 7.4 4.3-11.0 10^3/uL Red Blood Count 3.47 L 3.80-5.11 10^6/uL Hemoglobin 10.3 L 11.5-16.0 g/dL Hematocrit 31 L 35-52 % Mean Corpuscular Volume 89 80-99 fL Mean Corpuscular Hemoglobin 30 25-34 pg Mean Corpuscular Hemoglobin Concent 33 32-36 g/dL Red Cell Distribution Width 12.8 10.0-14.5 % Platelet Count 128 L 130-400 10^3/uL Mean Platelet Volume 10.5 9.0-12.2 fL Immature Granulocyte % (Auto) 0 % Neutrophils (%) (Auto) 80 H 42-75 % Lymphocytes (%) (Auto) 11 L 12-44 % Monocytes (%) (Auto) 6 0-12 % Eosinophils (%) (Auto) 3 0-10 % Basophils (%) (Auto) 1 0-10 % Neutrophils # (Auto) 5.9 1.8-7.8 10^3/uL Lymphocytes # (Auto) 0.8 L 1.0-4.0 10^3/uL Monocytes # (Auto) 0.5 0.0-1.0 10^3/uL Eosinophils # (Auto) 0.2 0.0-0.3 10^3/uL Basophils # (Auto) 0.0 0.0-0.1 10^3/uL Immature Granulocyte # (Auto) 0.0 0.0-0.1 10^3/uL Percent Immature Platelet Fraction 2.7 0.0-7.6 % Sodium Level 135 135-145 MMOL/L Potassium Level 5.2 H 3.6-5.0 MMOL/L Chloride Level 105 98-107 MMOL/L Carbon Dioxide Level 19 L 21-32 MMOL/L Anion Gap 11 5-14 MMOL/L Blood Urea Nitrogen 18 7-18 MG/DL Creatinine 1.05 0.60-1.30 MG/DL Estimat Glomerular Filtration Rate 56 BUN/Creatinine Ratio 17 Glucose Level 157 H 70-105 MG/DL Calcium Level 8.4 L 8.5-10.1 MG/DL Corrected Calcium 9.0 8.5-10.1 MG/DL Magnesium Level 1.4 L 1.6-2.4 MG/DL Total Bilirubin 0.7 0.1-1.0 MG/DL Aspartate Amino Transf (AST/SGOT) 38 H 5-34 U/L Alanine Aminotransferase (ALT/SGPT) 47 0-55 U/L Alkaline Phosphatase 137 H 40-136 U/L Total Protein 5.8 L 6.4-8.2 GM/DL Albumin 3.2 3.2-4.5 GM/DL Glucometer 143 H 195 H 196 H 70-110 MG/DL Test 10/04/21 05:52 Range/Units White Blood Count 7.5 4.3-11.0 10^3/uL Red Blood Count 3.79 L 3.80-5.11 10^6/uL Hemoglobin 11.2 L 11.5-16.0 g/dL Hematocrit 33 L 35-52 % Mean Corpuscular Volume 88 80-99 fL Mean Corpuscular Hemoglobin 30 25-34 pg Mean Corpuscular Hemoglobin Concent 34 32-36 g/dL Red Cell Distribution Width 12.9 10.0-14.5 % Platelet Count 117 L 130-400 10^3/uL Mean Platelet Volume 9.6 9.0-12.2 fL Immature Granulocyte % (Auto) 0 % Neutrophils (%) (Auto) 74 42-75 % Lymphocytes (%) (Auto) 16 12-44 % Monocytes (%) (Auto) 6 0-12 % Eosinophils (%) (Auto) 3 0-10 % Basophils (%) (Auto) 1 0-10 % Neutrophils # (Auto) 5.6 1.8-7.8 10^3/uL Lymphocytes # (Auto) 1.2 1.0-4.0 10^3/uL Monocytes # (Auto) 0.5 0.0-1.0 10^3/uL Eosinophils # (Auto) 0.2 0.0-0.3 10^3/uL Basophils # (Auto) 0.1 0.0-0.1 10^3/uL Immature Granulocyte # (Auto) 0.0 0.0-0.1 10^3/uL Sodium Level 136 135-145 MMOL/L Potassium Level 5.3 H 3.6-5.0 MMOL/L Chloride Level 107 98-107 MMOL/L Carbon Dioxide Level 17 L 21-32 MMOL/L Anion Gap 12 5-14 MMOL/L Blood Urea Nitrogen 21 H 7-18 MG/DL Creatinine 1.11 0.60-1.30 MG/DL Estimat Glomerular Filtration Rate 53 BUN/Creatinine Ratio 19 Glucose Level 113 H 70-105 MG/DL Calcium Level 8.8 8.5-10.1 MG/DL Corrected Calcium 9.3 8.5-10.1 MG/DL Magnesium Level 1.5 L 1.6-2.4 MG/DL Total Bilirubin 0.6 0.1-1.0 MG/DL Aspartate Amino Transf (AST/SGOT) 30 5-34 U/L Alanine Aminotransferase (ALT/SGPT) 43 0-55 U/L Alkaline Phosphatase 136 40-136 U/L Total Protein 6.3 L 6.4-8.2 GM/DL Albumin 3.4 3.2-4.5 GM/DL Diagnosis/Problems Diagnosis/Problems (1) Typical atrial flutter Assessment & Plan: She appears to have developed atrial flutter. At first her heart rates were controlled but now she has developed tachycardia. I maximized the dose of carvedilol but she has persistent tachycardia. I will change the carvedilol over to metoprolol succinate 200 mg daily with the first dose this morning. Once we can get her heart rate down, she can likely be discharged home. We will continue Xarelto for stroke prophylaxis. If the metoprolol does not control her heart rate, then I will consider adding a low-dose of diltiazem CD. I would prefer to avoid this given her moderate left ventricular systolic dysfunction. If we cannot control her heart rate with medication, she may need an AV junction ablation. (2) Non-ST elevation myocardial infarction (NSTEMI), initial care episode Assessment & Plan: She appears to have suffered an NSTEMI. She underwent a cardiac catheterization on 10/03 that showed patent grafts with severe [place] disease. I suspect the NSTEMI was due to occlusion of the distal left anterior descending coronary artery which would be too small for revascularization. We will continue aspirin, beta-tejal and statin medication. Given that she is on Xarelto for her longstanding atrial fibrillation, I will not give her clopidogrel. (3) Cardiomyopathy Assessment & Plan: Her ejection fraction had improved but has now again declined. We will attempt to get her on guideline directed medical therapt as tolerated by her blood pressure and renal function. Her ejection fraction is above the cutoff for recommending a LifeVest. As above, I am changing carvedilol over to metoprolol succinate to help with heart rate control for the atrial flutter. I will also add spironolactone. I will hold off on adding DONTAE inhibitor, ARB or Entresto due to her acute kidney injury that was present at the time of admission. She does not appear to be having any symptoms of heart failure at this time. I will obtain a follow-up chest x-ray. (4) Complete heart block Assessment & Plan: She has a permanent pacemaker in place that appears to be functioning normally. (5) Coronary artery disease with unstable angina pectoris Assessment & Plan: As above. (6) Primary hypertension Assessment & Plan: We will need to watch her blood pressure as we adjust the medication for the atrial flutter and cardiomyopathy. (7) Mixed hyperlipidemia Assessment & Plan: Continue atorvastatin. (8) Stage 3a chronic kidney disease Assessment & Plan: We need to follow her renal function closely. (9) Type 2 diabetes mellitus with complication Assessment & Plan: This is being managed by the hospitalist. (10) History of cerebrovascular accident with residual deficit Assessment & Plan: Continue Xarelto in light of the atrial flutter. (11) Cardiac pacemaker in situ Assessment & Plan: She follows with our outpatient pacemaker monitoring clinic. (12) Obesity Status: Chronic Assessment & Plan: She needs to work on weight loss. CARLITA WOOD JR, MD Oct 04, 2021 08:18
[2021-10-04] MEDS: meTOprolol SUCCINATE 100 MG (TOPROL XL) TAB PO SCH (08:21)
[2021-10-04] MEDS: ASPIRIN E.C. 81 MG (ECOTRIN) TAB PO SCH (08:21)
[2021-10-04] MEDS: DOCUSATE SODIUM 100 MG (COLACE) CAP PO SCH ×2 (08:55→20:17)
[2021-10-04] MEDS: SENNOSIDES 8.6 MG (SENOKOT) TAB PO SCH ×2 (08:55→20:17)
--- NOTE | 2021-10-04 09:00 | Progress Note - Hospitalist ---
LANCENIKIAMISHAINA DIEZ 10/04/21 0900: Subjective HPI/CC On Admission Date Seen by Provider: Oct 04, 2021 Time Seen by Provider: 08:30 CC: Atrial flutter with NSTEMI HPI: See above Subjective/Events-last exam Brief Hospital Course: Today: Patient has no concerns. Denies any chest pain, palpitations, or difficulty breathing. Objective Exam Vital Signs Vital Signs Date Time Temp Pulse Resp B/P (MAP) Pulse Ox O2 Delivery O2 Flow Rate FiO2 10/04/21 08:52 98 Room Air 10/04/21 07:49 36.7 134 18 161/93 (115) 10/01/21 17:10 21 Capillary Refill : Less Than 3 Seconds General Appearance: No Apparent Distress HEENT: PERRL/EOMI, Moist Mucous Membranes Neck: Normal Inspection, Supple Respiratory: Chest Non Tender, Lungs Clear, Normal Breath Sounds, No Accessory Muscle Use Cardiovascular: No JVD, Tachycardia, Other (irregular rhythm) Gastrointestinal: Normal Bowel Sounds, Non Tender, Soft Back: Normal Inspection Extremity: Normal Capillary Refill, No Calf Tenderness Neurologic/Psychiatric: Alert, Oriented x3 Skin: Normal Color, Warm/Dry Lymphatic: No Adenopathy Results/Procedures Lab Laboratory Tests 10/03/21 09:10 10/04/21 05:52 Patient resulted labs reviewed. Assessment/Plan Assessment and Plan Assess & Plan/Chief Complaint 1) A flutter with RVR * Cards following, appreciate recs * Diltiazam discontinued * Carvedilol switched to Metoprolol 200mg in setting of continued tachycardia * HR 120-140 and irregular overnight * Echo: EF 35-40% 2) Possible NSTEMI * Cardiology following, appreciate recs * Start Spironolactone * Elevated troponin x3 * EKG shows possible lateral ischemia * Started on Rivaroxiban, Atorvastatin, ASA 81, carvedilol * Nitro prn * offset label rewinder revealed no targets for stenting. Medical management recommended. 3) DM * SSI Dispo: Continue care on fourth floor. If able to control tachycardia with Metoprolol 200 today, discharge home. Clinical Quality Measures AMI/AHF: ASA po Prior to arrival: Yes LISA APODACA DO 10/04/212040: Subjective Subjective/Events-last exam Heart rate continues to be labile Updated cardiology Review of Systems General: Fatigue, Malaise Objective Exam General Appearance: No Apparent Distress, WD/WN, Chronically ill Respiratory: Lungs Clear, Normal Breath Sounds Cardiovascular: Irregularly Irregular, Tachycardia Assessment/Plan Assessment and Plan Assess & Plan/Chief Complaint Supportive care Cardiology appreciated Supervisory-Addendum Brief Verification & Attestation Participated in pt care: history, MDM, physical Personally performed: exam, history, MDM, supervision of care Care discussed with: Medical Student Procedures: n/a Results interpretation: Verified all documentation Verification and Attestation of Medical Student E/M Service A medical student performed and documented this service in my presence. I reviewed and verified all information documented by the medical student and made modifications to such information, when appropriate. I personally performed the physical exam and medical decision making. Lisa Apodaca, Oct 04, 2021,20:40 INA YOST Oct 04, 2021 09:00 LISA APODACA DO Oct 04, 2021 20:41
[2021-10-04] MEDS: SPIRONOLACTONE 25 MG (ALDACTONE) TAB PO SCH (09:01)
--- NOTE | 2021-10-04 09:55 | Diagnostic Imaging Report ---
INDICATION: Cardiomyopathy. PA and lateral chest. There are postoperative changes from CABG surgery. There is a dual-chamber pacemaker. Heart size and pulmonary vascularity are normal. Lungs are clear. There are no effusions or pneumothoraces. IMPRESSION: No acute abnormalities in the chest. Dictated by: Dictated on workstation # [id number]
--- NOTE | 2021-10-04 10:09 | Physical Therapy Daily Note ---
PT Daily Note-Current Subjective Patient is very agreeable to participate with PT. No c/o. Mental Status Patient Orientation: Normal For Age Transfers SCALE: Activities may be completed with or without assistive devices. 6-Dntvqzclhr-qvjjhbm completes the activity by him/herself with no assistance from a helper. 5-Set-up or Clean-up Assistance-helper sets up or cleans up; patient completes activity. [place] assists only prior to or following the activity. 4-Supervision or Touching Assistance-helper provides verbal cues and/or t ouching/steadying and/or contact guard assistance as patient completes activity. Assistance may be provided throughout the activity or intermittently. 3-Partial/Moderate Assistance-helper does LESS THAN HALF the effort. [place] lifts, holds or supports trunk or limbs, but provides less than half the effort. 2-Substantial/Maximal Assistance-helper does MORE THAN HALF the effort. [place] lifts or holds trunk or limbs and provides more than half the effort. 3-[place]-pmwkef does ALL the effort. Patient does none of the effort to complete the activity. Or, the assistance of 2 or more helpers is required for the patient to complete the activity. If activity was not attempted, code reason: 7-Patient Refused. 9-Not Applicable-not attempted and the patient did not perform the activity before the current illness, exacerbation or injury. 10-Not Attempted due to Environmental Limitations-(lack of equipment, weather restraints, etc.). 88-Not Attempted due to Medical Conditions or Safety Concerns. Lying to Sitting/Side of Bed(Q: 6 Sit to Stand (QC): 6 Chair/Bfe-mh-Etcib Xfer(QC): 6 Gait Training Distance: 250' Walk 10 feet (QC): 5 Walk 50 ft with 2 Turns(QC): 5 Walk 150 ft (QC): 5 Gait Assistive Device: FWW extended UE's with FWW use/safe and functional. Assessment Patient up in recliner with breakfast in situ. Patient is currently at OF with all gross motor skills. Nursing to continue with ambulating with patient. PT to dismiss patient from services at this time. PT Correction Goals Correction Goals PT Correction Goals Time Frame: Oct 09, 2021 Roll Left & Right (QC): 6 Sit to Lying (QC): 6 Lying-Sitting on Side/Bed(QC): 6 Sit to Stand (QC): 4 (SBA) Chair/Kqd-ma-Qonvw Xfer(QC): 4 (SBA) Walk 10 feet (QC): 4 (SBA) Walk 50ft with 2 Turns (QC): 4 (SBA) Walk 150 ft (QC): 4 (SBA) PT Plan Treatment/Plan Treatment Plan: Discontinue PT, goals met Treatment Plan: Bed Mobility, Education, Functional Activity [place], Functional Strength, Gait, Safety, Therapeutic Exercise, Transfers Treatment Duration: Oct 09, 2021 Frequency: 6 times per week Estimated Hrs Per Day: .25 hour per day Patient and/or Family Agrees t: Yes Time/GCodes Time In: 830 Time Out: 841 Total Billed Treatment Time: 11 Total Billed Treatment 1 visit FA 11 min DANNY PAYNE PT Oct 04, 2021 10:09
[2021-10-04] MEDS ORDERED: dilTIAZem120 MG (CARDIZEM CD) CAP PO NR (16:00)
[2021-10-04] MEDS: RIVAROXABAN 15 MG TABLET (XARELTO) PO SCH (16:09)
[2021-10-05 03:31] VITALS: BP 144/64
[2021-10-05] MEDS: inSUlin ASPART (NovoLOG) 1 UNIT/0.01 ML (CHARGE PER UNIT) SC SCH ×2 (05:38→13:15)
[2021-10-05 05:58] LABS: BASOPHILS # (AUTO) 0.1 10^3/uL (0.0-0.1); BASOPHILS % (AUTO) 1 % (0-10); EOSINOPHILS # (AUTO) 0.2 10^3/uL (0.0-0.3); EOSINOPHILS % (AUTO) 2 % (0-10); HEMATOCRIT 32 % (35-52); HEMOGLOBIN 10.5 g/dL (11.5-16.0); LYMPHOCYTES # (AUTO) 1.1 10^3/uL (1.0-4.0); LYMPHOCYTES % (AUTO) 13 % (12-44); MEAN CORPUSCULAR HEMOGLOBIN 29 pg (25-34); MEAN CORPUSCULAR HGB CONC 33 g/dL (32-36); MEAN CORPUSCULAR VOLUME 89 fL (80-99); MEAN PLATELET VOLUME 10.1 fL (9.0-12.2); MONOCYTES # (AUTO) 0.5 10^3/uL (0.0-1.0); MONOCYTES % (AUTO) 6 % (0-12); NEUTROPHILS # (AUTO) 6.5 10^3/uL (1.8-7.8); NEUTROPHILS % (AUTO) 78 % (42-75); PLATELET COUNT 145 10^3/uL (130-400); WHITE BLOOD COUNT 8.4 10^3/uL (4.3-11.0)
[2021-10-05 06:07] LABS: ALBUMIN 3.4 GM/DL (3.2-4.5); POTASSIUM 5.3 MMOL/L (3.6-5.0)
[2021-10-05 06:08] LABS: CALCIUM 8.9 MG/DL (8.5-10.1)
--- NOTE | 2021-10-05 06:08 | Progress Note - Hospitalist ---
Subjective HPI/CC On Admission Date Seen by Provider: Oct 05, 2021 Time Seen by Provider: 06:00 CC: Atrial flutter with NSTEMI HPI: See above Objective Exam Vital Signs Vital Signs Date Time Temp Pulse Resp B/P (MAP) Pulse Ox O2 Delivery O2 Flow Rate FiO2 10/05/21 12:52 70 10/05/21 11:00 36.2 20 130/82 (98) 93 Room Air 10/01/21 17:10 21 Capillary Refill : Less Than 3 Seconds Results/Procedures Lab Laboratory Tests 10/05/21 05:45 Patient resulted labs reviewed. Assessment/Plan Assessment and Plan Assess & Plan/Chief Complaint Supportive care Cardiology appreciated Clinical Quality Measures AMI/AHF: ASA po Prior to arrival: Yes COLLINS APODACA DO Oct 05, 2021 06:08
[2021-10-05 06:11] LABS: BILIRUBIN,TOTAL 0.6 MG/DL (0.1-1.0)
[2021-10-05 06:13] LABS: CREATININE SERUM 1.05 MG/DL (0.60-1.30)
[2021-10-05 06:16] LABS: MAGNESIUM 1.4 MG/DL (1.6-2.4)
[2021-10-05 07:55] VITALS: BP 139/94
[2021-10-05] MEDS: SENNOSIDES 8.6 MG (SENOKOT) TAB PO SCH (07:59)
[2021-10-05] MEDS: meTOprolol SUCCINATE 100 MG (TOPROL XL) TAB PO SCH (07:59)
[2021-10-05] MEDS: DOCUSATE SODIUM 100 MG (COLACE) CAP PO SCH (07:59)
[2021-10-05] MEDS: SPIRONOLACTONE 25 MG (ALDACTONE) TAB PO SCH (07:59)
[2021-10-05] MEDS: ASPIRIN E.C. 81 MG (ECOTRIN) TAB PO SCH (07:59)
[2021-10-05] MEDS ORDERED: dilTIAZem120 MG (CARDIZEM CD) CAP PO SCH (09:00)
[2021-10-05] MEDS ORDERED: MAGNESIUM OXIDE (MAG-OX)400 MG TAB PO SCH (10:15)
[2021-10-05 11:00] VITALS: BP 130/82
[2021-10-05] MEDS ORDERED: INSU100I14 SQ (12:08)
[2021-10-05] MEDS ORDERED: DILT-27 PO (12:08)
[2021-10-05] MEDS ORDERED: MTP100TCR PO (12:08)
[2021-10-05] MEDS ORDERED: RIVA15TA2 PO (12:08)
--- NOTE | 2021-10-05 12:08 | Discharge Summary ---
Discharge Summary Hospital Course Was the Problem List Reviewed?: Yes Problems/Dx: (1) Typical atrial flutter (2) Non-ST elevation myocardial infarction (NSTEMI), initial care episode (3) Cardiomyopathy (4) Complete heart block (5) Coronary artery disease with unstable angina pectoris (6) Primary hypertension (7) Mixed hyperlipidemia (8) Stage 3a chronic kidney disease (9) Type 2 diabetes mellitus with complication (10) History of cerebrovascular accident with residual deficit (11) Cardiac pacemaker in situ (12) Obesity Status: Chronic Hospital Course Date of Admission: Oct 01, 2021 at 15:52 Admission Diagnosis : Family Physician/Provider: Mary Goins Date of Discharge: 10/05/21 Discharge Diagnosis: A. fib with RVR Hospital Course: Long course after admitted for atrial flutter with RVR and cardiology was consulted ultimately control and was discharged in improved condition after rate was controlled. No decompensation occurred in hospital course. Labs and Pending Lab Test: Laboratory Tests 10/04/21 16:06: Glucometer 118H 10/04/21 21:01: Glucometer 202H 10/05/21 05:35: Glucometer 112H 10/05/21 05:45: White Blood Count 8.4, Red Blood Count 3.58L, Hemoglobin 10.5L, Hematocrit 32L, Mean Corpuscular Volume 89, Mean Corpuscular Hemoglobin 29, Mean Corpuscular Hemoglobin Concent 33, Red Cell Distribution Width 12.7, Platelet Count 145, Mean Platelet Volume 10.1, Immature Granulocyte % (Auto) 0, Neutrophils (%) (Auto) 78H, Lymphocytes (%) (Auto) 13, Monocytes (%) (Auto) 6, Eosinophils (%) (Auto) 2, Basophils (%) (Auto) 1, Neutrophils # (Auto) 6.5, Lymphocytes # (Auto) 1.1, Monocytes # (Auto) 0.5, Eosinophils # (Auto) 0.2, Basophils # (Auto) 0.1, Immature Granulocyte # (Auto) 0.0, Sodium Level 135, Potassium Level 5.3H, Chloride Level 104, Carbon Dioxide Level 19L, Anion Gap 12, Blood Urea Nitrogen 22H, Creatinine 1.05, Estimat Glomerular Filtration Rate 56, BUN/Creatinine Ratio 21, Glucose Level 106H, Calcium Level 8.9, Corrected Calcium 9.4, Magnesium Level 1.4L, Total Bilirubin 0.6, Aspartate Amino Transf (AST/SGOT) 22, Alanine Aminotransferase (ALT/SGPT) 38, Alkaline Phosphatase 143H, Total Protein 6.0L, Albumin 3.4 10/05/21 11:47: Glucometer 183H Home Meds Active Reported Multivitamin 1 Each Tablet 1 Each PO DAILY Aspirin EC (Aspirin) 81 Mg Tablet.dr 81 Mg PO DAILY Tylenol Extra Strength (Acetaminophen) 500 Mg Tablet 1,000 Mg PO Q8H PRN Fluticasone Propionate 50 Mcg/Actuation [place].susp 1 [place] NSEACH BID PRN Carvedilol 12.5 Mg Tablet 12.5 Mg PO BID LAST FILLED 08-02-2021 #60/30 DAY SUPPLY [Latuda 80MG] 80 Tab 80 Mg PO HS Novolog Flexpen (Insulin Aspart) 100 Unit/Ml (3 Ml) Solution 20 Units SQ BEFORE LUNCH AND DINNER Dicyclomine HCl 20 Mg Tablet 20 Mg PO BID PRN Enalapril Maleate 20 Mg Tablet 20 Mg PO DAILY Levemir Flextouch (Insulin Detemir) 100 Unit/Ml (3 Ml) Insuln.pen 9 Unit SQ BID Atorvastatin Calcium 40 Mg Tablet 40 Mg PO HS Assessment/Pt Instructions PCP in 1 week Discharge Planning: <30 minutes discharge planning Discharge Instructions Discharge Diet: No Restrictions Discharge Physical Examination Vital Signs Vital Signs Date Time Temp Pulse Resp B/P (MAP) Pulse Ox O2 Delivery O2 Flow Rate FiO2 10/05/21 11:00 36.2 71 20 130/82 (98) 93 Room Air 10/01/21 17:10 21 General Appearance: No Apparent Distress, WD/WN, Chronically ill Allergies: Coded Allergies: Bleach (Sodium Hypochlorite) (Verified Allergy, Unknown, 09/25/16) corn (Unverified Allergy, Unknown, 02/07/10) perfume (Verified Allergy, Unknown, 09/25/16) Discharge Summary Date of Admission Oct 01, 2021 at 15:52 Date of Discharge Discharge Date: Oct 05, 2021 Admission Diagnosis Atrial flutter NSTEMI Discharge Diagnosis Supportive care Cardiology appreciated (1) Typical atrial flutter Assessment & Plan: She appears to have developed atrial flutter. At first her heart rates were controlled but now she has developed tachycardia. I maximized the dose of carvedilol but she has persistent tachycardia. I will change the carvedilol over to metoprolol succinate 200 mg daily with the first dose this morning. Once we can get her heart rate down, she can likely be discharged home. We will continue Xarelto for stroke prophylaxis. If the metoprolol does not control her heart rate, then I will consider adding a low-dose of diltiazem CD. I would prefer to avoid this given her moderate left ventricular systolic dysfunction. If we cannot control her heart rate with medication, she may need an AV junction ablation. (2) Non-ST elevation myocardial infarction (NSTEMI), initial care episode Assessment & Plan: She appears to have suffered an NSTEMI. She underwent a cardiac catheterization on 10/03 that showed patent grafts with severe napaimute disease. I suspect the NSTEMI was due to occlusion of the distal left anterior descending coronary artery which would be too small for revascularization. We will continue aspirin, beta-tejal and statin medication. Given that she is on Xarelto for her longstanding atrial fibrillation, I will not give her clopidogrel. (3) Cardiomyopathy Assessment & Plan: Her ejection fraction had improved but has now again declined. We will attempt to get her on guideline directed medical therapt as tolerated by her blood pressure and renal function. Her ejection fraction is above the cutoff for recommending a LifeVest. As above, I am changing carvedilol over to metoprolol succinate to help with heart rate control for the atrial flutter. I will also add spironolactone. I will hold off on adding DONTAE inhibitor, ARB or Entresto due to her acute kidney injury that was present at the time of admission. She does not appear to be having any symptoms of heart failure at this time. I will obtain a follow-up chest x-ray. (4) Complete heart block Assessment & Plan: She has a permanent pacemaker in place that appears to be functioning normally. (5) Coronary artery disease with unstable angina pectoris Assessment & Plan: As above. (6) Primary hypertension Assessment & Plan: We will need to watch her blood pressure as we adjust the medication for the atrial flutter and cardiomyopathy. (7) Mixed hyperlipidemia Assessment & Plan: Continue atorvastatin. (8) Stage 3a chronic kidney disease Assessment & Plan: We need to follow her renal function closely. (9) Type 2 diabetes mellitus with complication Assessment & Plan: This is being managed by the hospitalist. (10) History of cerebrovascular accident with residual deficit Assessment & Plan: Continue Xarelto in light of the atrial flutter. (11) Cardiac pacemaker in situ Assessment & Plan: She follows with our outpatient pacemaker monitoring clinic. (12) Obesity Status: Chronic Assessment & Plan: She needs to work on weight loss. Clinical Quality Measures AMI/AHF: ASA po Prior to arrival: Yes COLLINS APODACA DO Oct 05, 2021 12:08
--- NOTE | 2021-10-05 12:10 | Cardiology Progress Note ---
Subjective Date Seen by Provider: Oct 05, 2021 Time Seen by Provider: 12:07 Subjective/Events-last exam Patient was seen at bedside, sitting comfortably. No new complaint. Review of Systems General: No Chills, No Night Sweats, No Fatigue, No Malaise, No Appetite, No Other HEENT: No Head Aches, No Visual Changes, No Eye Pain, No Ear Pain, No Dysphasia, No Sinus Congestion, No Post Nasal Drip, No Sore Throat, No Other Pulmonary: No Dyspnea, No Cough, No Pleuritic Chest Pain, No Other Cardiovascular: No: Chest Pain, Palpitations, Orthopnea, Paroxysmal Noc. Dyspnea, Edema, Lt Headedness, Other Objective-Cardiology Exam Last Set of Vital Signs Vital Signs 10/01/21 10/05/21 17:10 11:00 Temp 36.2 Pulse 71 Resp 20 B/P (MAP) 130/82 (98) Pulse Ox 93 O2 Delivery Room Air FiO2 21 I&O Intake and Output 10/05/21 00:00 Intake Total 4660 ml Output Total 800 ml Balance 3860 ml Intake Oral 1660 ml IV Total 3000 ml Output Urine Total 800 ml # Voids 6 # Bowel Movements 1 General: Alert, Oriented X3, Cooperative HEENT: Atraumatic, PERRLA Neck: Supple, No JVD, No Thyromegaly Lungs: Clear to Auscultation, Normal Air Movement Heart: Normal S1, Normal S2, No Murmurs, Other (Atrial flutter) Abdomen: Normal Bowel Sounds, Soft, No Tenderness, No Hepatosplenomegaly, No Masses Extremities: No Clubbing, No Cyanosis, No Edema, Normal Pulses, No Tenderness/Swelling Skin: No Rashes, No Breakdown, No Significant Lesion Neuro: Normal Gait, Normal Speech, Strength at 5/5 X4 Ext, Normal Tone, Sensation Intact Psych/Mental Status: Mental Status NL, Mood NL Results Lab Laboratory Tests 10/05/21 05:45 A/P-Cardiology Admission Diagnosis Atrial flutter Non-ST elevation myocardial infarction Hypertension Hyperlipidemia Assessment/Plan Atrial flutter Rate is better controlled on metoprolol and Cardizem. Continue to monitor Non-ST elevation myocardial infarction, cardiac catheterization done on October 03, [address] Christina reported patent grafts with severe pilot point disease. Small vessel disease distally. Inoperable, treated medically. Hyperkalemia, discontinue Aldactone. Monitor electrolyte as an outpatient Complete heart block, history of permanent pacemaker Hypertension, better controlled. Continue to monitor Hyperlipidemia maintained on atorvastatin Chronic kidney disease stage III. Continue to monitor Diabetes mellitus, followed and managed by primary care physician History of CVA. Maintained on Xarelto. BMI 32, consulted on weight loss Okay for discharge, follow-up with Dr. Christina, discontinue Aldactone, monitor electrolyte we will repeat metabolic profile is recommended next week JIMBO FIGUEROA MD Oct 05, 2021 12:10
== END 2021-10-05 13:15 | disposition home or self-care (01) | DRG 281 ==
LOC: EDUNIT# 13:18 → ER 13:20 → ICU 15:52 → 4TH 10-02 15:37
PROVIDERS: ADMIT Internal Medicine; ATTEND Internal Medicine
PROC: 4A023N7 Measurement of Cardiac Sampling and Pressure, Left Heart, Percutaneous Approach (ICD-10-PCS; principal; 2021-10-01)
PROC: B2111ZZ Fluoroscopy of Multiple Coronary Arteries using Low Osmolar Contrast (ICD-10-PCS; 2021-10-01)
PROC: B2131ZZ Fluoroscopy of Multiple Coronary Artery Bypass Grafts using Low Osmolar Contrast (ICD-10-PCS; 2021-10-01)
PROC: B31J1ZZ Fluoroscopy of Left Upper Extremity Arteries using Low Osmolar Contrast (ICD-10-PCS; 2021-10-01)
DX: I21.4 Non-ST elevation (NSTEMI) myocardial infarction (principal); I44.2 Atrioventricular block, complete; I48.3 Typical atrial flutter; I25.10 Atherosclerotic heart disease of native coronary artery without angina pectoris; E11.51 Type 2 diabetes mellitus with diabetic peripheral angiopathy without gangrene; Z86.73 Personal history of transient ischemic attack (TIA), and cerebral infarction without residual deficits; M19.90 Unspecified osteoarthritis, unspecified site; E03.9 Hypothyroidism, unspecified; H35.30 Unspecified macular degeneration; F41.9 Anxiety disorder, unspecified; I12.9 Hypertensive chronic kidney disease with stage 1 through stage 4 chronic kidney disease, or unspecified chronic kidney disease; E78.2 Mixed hyperlipidemia; N18.31 Chronic kidney disease, stage 3a; E66.9 Obesity, unspecified; I25.5 Ischemic cardiomyopathy; E87.5 Hyperkalemia; F20.9 Schizophrenia, unspecified; F32.A Depression, unspecified; I48.0 Paroxysmal atrial fibrillation; Z79.4 Long term (current) use of insulin; Z79.84 Long term (current) use of oral hypoglycemic drugs; Z79.899 Other long term (current) drug therapy; Z95.2 Presence of prosthetic heart valve; Z95.1 Presence of aortocoronary bypass graft; Z95.5 Presence of coronary angioplasty implant and graft; Z95.810 Presence of automatic (implantable) cardiac defibrillator; Z68.32 Body mass index [BMI] 32.0-32.9, adult; Z79.82 Long term (current) use of aspirin
CPT/HCPCS: 36415; 71045; 71046; 80053; 80061; 82947; 83735; 83874; 83880; 84100; 84484; 85025; 85610; 85730; 93005; 93041; 93306; 93459; 94760